=== PATIENT | male | born 1945 | race Caucasian/White ===

== ENCOUNTER 2018-01-11 14:01 | Inpatient (IN) | payer MEDICARE, SELFPAY ==
[2018-01-11] VITALS (7 sets, daily range): BP systolic 152–208; BP diastolic 42–76; PULSE 74–86; RESP 16–24; TEMP 36.6–36.7; O2SAT 86–92; BMI 31.5; BMI 30.5
--- NOTE | 2018-01-11 14:29 | ED.DCSUM_ITS ---
- ER Visit Summary Date of Service: 01/11/18 Chief Complaint: [] Tripped and fell right hip pain unable to walk History of Present Illness: The patient is a 72 M [] acute on his lawnmower he inadvertently tripped and fell has right hip pain unable to walk, his history of chronic hypoxemia with a standard normal pulse ox of 90% he has been seen by Dr. Pederson of pulmonology he has healthy lungs and is on no specific therapy he indicates he simply tripped and fell I note that above as his pulse ox here is 90 and he has no complaints of any type of cardiovascular complaint just right hip pain, history of hypertension that is stable Physical Examination: [] Exam his pulse ox is 90% the rest of his vital signs are within normal range his blood pressures about 200/80 complaining of severe pain in the right hip, head is nontraumatic neck is nontraumatic lungs are managed heart tones are distant abdomen is obese but soft nontender he has marked pain over really the superior pubic ramus the right, some mild pain over the greater trochanter as well he has no thigh knee tib-fib ankle or foot pain he is moving all 4 extremities prefers to keep the knee elevated neurologically awake and alert Test Results: [] Emergency Department Course and Treatment: [] X-rays are obtained a right impacted hip fracture per radiology, hemoglobin 18 rest the labs generally unremarkable spoke with Dr. Franklin extension service advisor for Ortho spoke with the hospitalist he will be admitted for further management explained all the above to the patient Treatment Plan: [] Disposition: [] Admit stable Impression: [] Impacted fracture right hip, fall history of chronic hypoxemia This note was generated with [employer] dictation software. It may contain incorrect words, spelling, and punctuation that were not noted in review of the chart prior to signing ED Disposition - Plan for ED Patient: Chief Complaint: Lower Extremity Injury Referrals: Brandon Cantor MD [Primary Care Provider] -
[2018-01-11 14:52] LABS: Anion Gap 10 (5-15); BUN 16 mg/dL (7-18); BUN/Creat Ratio 14.8 RATIO (10-20); Calcium,Total 9.1 mg/dL (8.5-10.1); Chloride 109 mmol/L (98-107); Creatinine, Serum 1.08 mg/dL (0.70-1.30); EST Glomerular Filtration Rate 71 mL/min (>60); Est Glom Filt Rate - Afr Amer 86 mL/min (>60); Estimated Creatinine Clearance 63.84 ml/min; Glucose 103 mg/dL (74-106); Sodium Level 145 mmol/L (136-145)
[2018-01-11 14:55] LABS: Absolute Neutrophil Count 4.8 X10^3/uL (2.0-7.7); Basophil# 0.01 X10^3/uL; Basophil% 0.2 % (0-1); Eosinophil# 0.05 X10^3/uL; Eosinophils% 0.8 % (0-5); Mean Corp Hgb Conc 34.6 g/gl (32-36); Mean Corpuscular Hgb 31.8 pg (27.0-32.0); Mean Corpuscular Volume 91.9 fL (80-94); Mean Platelet Vol. 10.8 fl (6.2-12.0); Monocyte# 0.45 X10^3/uL; Monocyte% 7.3 % (0-10); Neutrophil # 4.84 X10^3/uL (2.7-7.7); Neutrophil % 78.5 % (47-70); Platelet Count 127 K/mm3 (150-450); RBC Distribution Width CV 13.8 % (11.6-14.6); Red Blood Count 5.66 M/mm3 (4.6-6.2); White Blood Count 6.2 K/mm3 (4.4-11.0)
[2018-01-11] MEDS: morphine 8 MG/ML Syringe IV (14:56)
[2018-01-11] MEDS: Ondansetron 4 MG/2 ML Vial IV (14:56)
--- NOTE | 2018-01-11 14:57 | RAD_ITS ---
STUDY: X-RAY - PELVIS AND RIGHT HIP REASON FOR EXAM: Male, 72 years old. Right hip pain after fall. Check for acute fracture. TECHNIQUE: Radiological exam, hip, unilateral, with pelvis when performed; 2 or 3 views. COMPARISON: None available. FINDINGS: Cortical step-off is noted of the right inferior medial femoral neck and foreshortening is seen between the femoral head and intratrochanteric region consistent with an acute fracture. Right femoral head does not appear dislocated from the adjacent acetabulum. No radiopaque foreign identified. Bony ring of the pelvis appears intact without diastases seen. Fairly severe inferior medial joint space narrowing is seen of the left hip on the AP pelvis view. Bony joint spaces appear intact. Right superior pubic ramus medially shows overlapping anastomotic suture ring. It is difficult to identify soft tissue swelling or soft tissue abnormal calcification. No subcutaneous emphysema noted. Severe degenerative right greater and left lower lumbar sacral spine noted. No osseous lytic/blastic lesion seen. Nonobstructed nonspecific visualized intestinal gas pattern. RAD/HIP, UNI W/ Pelvis 2-3 Views IMPRESSION: Right proximal femoral subcapital acute fracture as described. Fairly severe degenerative left hip as described. Electronically Signed: William Jacques, at 16:19 EDT Tel , Service support ,
[2018-01-11 14:58] LABS: POSITIVE COUNT NO; POSITIVE DIFFERENTIAL NO; POSITIVE MORPHOLOGY NO
--- NOTE | 2018-01-11 17:59 | PCM.HP.STD ---
Problem List (1) Closed right hip fracture Status: Acute Qualifiers: Encounter type: initial encounter Qualified Code(s): S72.001A - Fracture of unspecified part of neck of right femur, initial encounter for closed fracture History of Present Illness Date of Admission: 01/11/18 Chief Complaint: fall and right hip pain. The patient is a 72 year old M today the patient is doing some chores and was in his garage where he thinks he tripped over a the bed of his lawnmower and fell on his right side. Patient landed on his right buttocks and also on his right elbow. Patient had pain. Presented to the emergency room and was found to have an impacted fracture of the right hip. The emergency room contacted Dr. Franklin orthoped[facility] and stated that someone from their service will see the patient. Patient being admitted through the medical service for a right hip fracture due to a mechanical fall. [] Past Medical History Medical History: Medical History (Last Updated 01/11/18 @ 18:02 by Jaspreet Gamez DO) Anxiety F41.9 Chronic respiratory failure with hypoxia J96.11 HTN (hypertension) I10 Allergies No Known Allergies Allergy (Verified 01/11/18 14:07) Home Medications: Ambulatory Orders Medication Instructions Recorded Amlodipine Besylate [Norvasc] 10 mg PO DAILY 01/12/17 Aspirin E.C. [Ecotrin] 81 mg PO DAILY@0800 01/12/17 Loperamide [Imodium] 2 mg PO Q6H PRN PRN 01/12/17 Lorazepam [Ativan] 1 mg PO DAILY PRN PRN 01/12/17 Meloxicam [Mobic] 15 mg PO DAILY PRN PRN 01/12/17 Paroxetine [Paxil] 10 mg PO DAILY 01/12/17 Pravastatin [Pravachol] 20 mg PO QHS 01/12/17 Terazosin HCl 10 mg PO QHS 01/12/17 Lives: Spouse/ Significant Other Smoking Status: Former smoker Tobacco Use: Cigarettes Alcohol: None Drugs: None - *Family History Maternal History Items: Heart Disease Review of Systems Constitutional: Denies: Anorexia, Chills, Fever Eyes: Denies: Blurred vision, Double vision HEENT: Denies: Head Aches, Sinus Congestion, Sinus Drainage Cardiovascular: Denies: Chest Pain, Palpitations Respiratory: Denies: Cough, Shortness of breath at rest, Sputum production Gastrointestinal: Denies: Abdominal Pain, Nausea, Vomiting Genitourinary: Denies: Dysuria Musculoskeletal: Denies: Joint Pain, Joint Tenderness Skin: Denies: Rash, Wounds Neurological: Denies: Numbness, Tingling, Focal weakness Psychiatric: Reports: Anxiety. Denies: Depression Hematologic/ Lymphatic: Denies: Easy Bruising, Easy Bleeding, Hx of blood clot VTE Information - Inpt Only VTE Present on Admission: No VTE Mechan Device Prophylaxis: SCD's VTE Pharm Prophylaxis ordered?: No Patient Problems: Active and Suspected Problems Closed right hip fracture (Acute) - Physical Exam General: Alert, Cooperative, No apparent distress HEENT: Atraumatic, Normocephalic Oral: Moist Mucosa, No Gingival or Mucosal Lesions/ Ulcerations Neck: No Nodes, Thyroid Normal Size and Texture Lungs: Clear to auscultation, Normal air movement, No rhonchi, No wheeze Cardiovascular: Regular rate, Regular Rhythm, Normal S1, Normal S2, No murmurs Abdomen: Bowel Sounds Present, Soft, Non Tender, Non-Distended Extremities: No edema, No Calf Tenderness Skin: No rashes, No breakdown Musculoskeletal: No Muscle Wasting Neurological: Neuro grossly intact, Muscle tone normal, Sensory exam intact to light touch and pain Psych/Mental Status: Normal Affect, Appropriate Vital Signs Temp Pulse Resp BP Pulse Ox 36.7 C 83 16 195/68 H 88 01/11/18 14:03 01/11/18 17:02 01/11/18 17:02 01/11/18 17:02 01/11/18 17:02 Oxygen Flow Rate (L/min) 4 Oxygen Delivery Method Nasal Cannula Weight: 101.151 kg Body Mass Index (BMI) 31.5 Laboratory Tests Past 24 Hrs 01/11/18 01/11/18 14:31 14:31 WBC 6.2 RBC 5.66 Hgb 18.0 H* Hct 52.0 MCV 91.9 MCH 31.8 MCHC 34.6 RDW 13.8 RDW Differential 46.0 H Plt Count 127 L MPV 10.8 Immature Gran % (Auto) 0.200 Neut % (Auto) 78.5 H Lymph % (Auto) 13.0 L [place] % (Auto) 7.3 Eos % (Auto) 0.8 Baso % (Auto) 0.2 Absolute Neuts (auto) 4.8 Absolute Lymphs (auto) 0.80 L Total Counted Not Reportable Sodium 145 Potassium 4.0 Chloride 109 H Carbon Dioxide 26.0 Anion Gap 10 BUN 16 Creatinine 1.08 Estim Creat Clear Calc 63.84 Est GFR (MDRD) Af Amer 86 Est GFR (MDRD) Non-Af 71 BUN/Creatinine Ratio 14.8 Glucose 103 Calcium 9.1 Assessment/Plan All Active Problems Closed right hip fracture (Acute) 1. Right hip fracture Due to mechanical fall Patient has a very good performance status and no active issues to prohibit him from undergoing surgery. Patient is medically cleared to proceed with surgery 2. Hypertension Accelerated Continue with amlodipine Clonidine as needed for systolic blood pressure greater than 180 3. Polycythemia Unclear this is acute or chronic as there is no baseline labs to compare to Will monitor IV fluids 4. DVT prophylaxis with SCDs. After surgery, will be at the discretion of orthopedics. Code Visit Inpatient E&M: 78874 Init Hosp L3
--- NOTE | 2018-01-11 18:04 | HP.PCM_ITS ---
Problem List (1) Closed right hip fracture Status: Acute Qualifiers: Encounter type: initial encounter Qualified Code(s): S72.001A - Fracture of unspecified part of neck of right femur, initial encounter for closed fracture History of Present Illness Date of Admission: 01/11/18 Chief Complaint: fall and right hip pain. The patient is a 72 year old M today the patient is doing some chores and was in his garage where he thinks he tripped over a the bed of his lawnmower and fell on his right side. Patient landed on his right buttocks and also on his right elbow. Patient had pain. Presented to the emergency room and was found to have an impacted fracture of the right hip. The emergency room contacted Dr. Franklin [facility] and stated that someone from their service will see the patient. Patient being admitted through the medical service for a right hip fracture due to a mechanical fall. [] Past Medical History Medical History: Medical History (Last Updated 01/11/18 @ 18:02 by Jaspreet Gamez DO) Anxiety F41.9 Chronic respiratory failure with hypoxia J96.11 HTN (hypertension) I10 Allergies No Known Allergies Allergy (Verified 01/11/18 14:07) Home Medications: Ambulatory Orders Medication Instructions Recorded Amlodipine Besylate [Norvasc] 10 mg PO DAILY 01/12/17 Aspirin E.C. [Ecotrin] 81 mg PO DAILY@0800 01/12/17 Loperamide [Imodium] 2 mg PO Q6H PRN PRN 01/12/17 Lorazepam [Ativan] 1 mg PO DAILY PRN PRN 01/12/17 Meloxicam [Mobic] 15 mg PO DAILY PRN PRN 01/12/17 Paroxetine [Paxil] 10 mg PO DAILY 01/12/17 Pravastatin [Pravachol] 20 mg PO QHS 01/12/17 Terazosin HCl 10 mg PO QHS 01/12/17 Lives: Spouse/ Significant Other Smoking Status: Former smoker Tobacco Use: Cigarettes Alcohol: None Drugs: None - *Family History Maternal History Items: Heart Disease Review of Systems Constitutional: Denies: Anorexia, Chills, Fever Eyes: Denies: Blurred vision, Double vision HEENT: Denies: Head Aches, Sinus Congestion, Sinus Drainage Cardiovascular: Denies: Chest Pain, Palpitations Respiratory: Denies: Cough, Shortness of breath at rest, Sputum production Gastrointestinal: Denies: Abdominal Pain, Nausea, Vomiting Genitourinary: Denies: Dysuria Musculoskeletal: Denies: Joint Pain, Joint Tenderness Skin: Denies: Rash, Wounds Neurological: Denies: Numbness, Tingling, Focal weakness Psychiatric: Reports: Anxiety. Denies: Depression Hematologic/ Lymphatic: Denies: Easy Bruising, Easy Bleeding, Hx of blood clot VTE Information - Inpt Only VTE Present on Admission: No VTE Mechan Device Prophylaxis: SCD's VTE Pharm Prophylaxis ordered?: No Patient Problems: Active and Suspected Problems Closed right hip fracture (Acute) - Physical Exam General: Alert, Cooperative, No apparent distress HEENT: Atraumatic, Normocephalic Oral: Moist Mucosa, No Gingival or Mucosal Lesions/ Ulcerations Neck: No Nodes, Thyroid Normal Size and Texture Lungs: Clear to auscultation, Normal air movement, No rhonchi, No wheeze Cardiovascular: Regular rate, Regular Rhythm, Normal S1, Normal S2, No murmurs Abdomen: Bowel Sounds Present, Soft, Non Tender, Non-Distended Extremities: No edema, No Calf Tenderness Skin: No rashes, No breakdown Musculoskeletal: No Muscle Wasting Neurological: Neuro grossly intact, Muscle tone normal, Sensory exam intact to light touch and pain Psych/Mental Status: Normal Affect, Appropriate Vital Signs Temp Pulse Resp BP Pulse Ox 36.7 C 83 16 195/68 H 88 01/11/18 14:03 01/11/18 17:02 01/11/18 17:02 01/11/18 17:02 01/11/18 17:02 Oxygen Flow Rate (L/min) 4 Oxygen Delivery Method Nasal Cannula Weight: 101.151 kg Body Mass Index (BMI) 31.5 Laboratory Tests Past 24 Hrs 01/11/18 01/11/18 14:31 14:31 WBC 6.2 RBC 5.66 Hgb 18.0 H* Hct 52.0 MCV 91.9 MCH 31.8 MCHC 34.6 RDW 13.8 RDW Differential 46.0 H Plt Count 127 L MPV 10.8 Immature Gran % (Auto) 0.200 Neut % (Auto) 78.5 H Lymph % (Auto) 13.0 L [place] % (Auto) 7.3 Eos % (Auto) 0.8 Baso % (Auto) 0.2 Absolute Neuts (auto) 4.8 Absolute Lymphs (auto) 0.80 L Total Counted Not Reportable Sodium 145 Potassium 4.0 Chloride 109 H Carbon Dioxide 26.0 Anion Gap 10 BUN 16 Creatinine 1.08 Estim Creat Clear Calc 63.84 Est GFR (MDRD) Af Amer 86 Est GFR (MDRD) Non-Af 71 BUN/Creatinine Ratio 14.8 Glucose 103 Calcium 9.1 Assessment/Plan All Active Problems Closed right hip fracture (Acute) 1. Right hip fracture * Due to mechanical fall * Patient has a very good performance status and no active issues to prohibit him from undergoing surgery. * Patient is medically cleared to proceed with surgery 2. Hypertension * Accelerated * Continue with amlodipine * Clonidine as needed for systolic blood pressure greater than 180 3. Polycythemia * Unclear this is acute or chronic as there is no baseline labs to compare to * Will monitor * IV fluids 4. DVT prophylaxis with SCDs. After surgery, will be at the discretion of orthopedics. Code Visit Inpatient E&M: 52958 Init Hosp L3
--- NOTE | 2018-01-11 18:25 | NURSING ---
THROUGHOUT PT'S STAY IN ED PULSE OXIMETRY HAS BEEN BETWEEN 86-92% ON 4L IN ED. 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 NO LABORED BREATHING. HE DOES NOT WEAR OXYGEN AT HOME.
[2018-01-11] MEDS: Morphine 4 MG/ML Syringe IV ×2 (18:33→21:55)
--- NOTE | 2018-01-11 20:42 | NURSING ---
Radiology called and stated that they do not normally do an A&P xray for a hip fx since they have to sit them up. Wanted to know if 1 view would be ok and they would do it portable. Talked to Dr. Franklin and he agreed that would be fine. Called xray back and told them I would enter new order. They stated I did not need to enter new order, they would just amend the current order. They will be coming up shortly to obtain.
--- NOTE | 2018-01-11 20:43 | PCM.CONS.GEN ---
Reason for Consult Date of Consultation: 01/11/18 History of Present Illness: The patient is a 72 year old male with a history of some intermittent pre-existing hip pain. Also a history of pre-existing knee arthritis pain. He states that he was working on a lawnmower today when he tripped over something, falling onto his right hip and right elbow. He had severe right hip pain. He was not able to ambulate. Right elbow pain has not been severe. He denies chest pain or shortness of breath. Denies head injury or loss of consciousness. Patient does have a history of polycythemia, as well as a history of low oxygen saturations reportedly previously with pulmonary workup that was negative at the [facility]. He did quit smoking 20 years ago. Patient currently works full-time at [employer], on his feet 8 hours a day 5 days a week. He would like to go back to work. [] Past Medical History Medical History: Medical History (Last Updated 01/11/18 @ 18:02 by Jaspreet Gamez DO) Anxiety F41.9 Chronic respiratory failure with hypoxia J96.11 HTN (hypertension) I10 Allergies No Known Allergies Allergy (Verified 01/11/18 14:07) Home Medications: Ambulatory Orders Medication Instructions Recorded Amlodipine Besylate [Norvasc] 10 mg PO DAILY 01/12/17 Aspirin E.C. [Ecotrin] 81 mg PO DAILY@0800 01/12/17 Loperamide [Imodium] 2 mg PO Q6H PRN PRN 01/12/17 Lorazepam [Ativan] 1 mg PO DAILY PRN PRN 01/12/17 Meloxicam [Mobic] 15 mg PO DAILY PRN PRN 01/12/17 Paroxetine [Paxil] 10 mg PO DAILY 01/12/17 Pravastatin [Pravachol] 20 mg PO QHS 01/12/17 Terazosin HCl 10 mg PO QHS 01/12/17 Surgical History: - - 2 previous colonoscopies, colon surgery with reversal of colostomy, finger surgery, previous tonsillectomy Lives: Spouse/ Significant Other Smoking Status: Former smoker Tobacco Use: Cigarettes Alcohol: None Drugs: None - *Family History Maternal History Items: Heart Disease Patient Problems: Active and Suspected Problems (Last Updated 01/11/18 @ 18:02 by Jaspreet Gamez DO) Closed right hip fracture (Acute) Objective: Right hip has mild shortening and external rotation. Right hip has pain on palpation. Right hip has pain with rotation and axial loading done gently. Left hip had no pain on palpation. Left hip has no pain with rotation. No calf pain or swelling bilaterally. Negative Homans sign bilaterally. Good active motion toes and ankles. No bruising or swelling about the right hip region. He does have a right elbow abrasion. Good elbow motion and strength. X-rays: AP pelvis AP and lateral right hip shows a right hip displaced femoral neck fracture, valgus impacted no severe pre-existing hip joint arthritis identified. Laboratory work and vital signs reviewed. Medication list reviewed - Physical Exam Vital Signs Temp Pulse Resp BP Pulse Ox 97.8 F 83 20 H 152/76 H 92 01/11/18 19:01 01/11/18 19:01 01/11/18 19:01 01/11/18 19:01 01/11/18 19:01 Oxygen Flow Rate (L/min) 4 Oxygen Delivery Method Nasal Cannula Weight: 97.9 kg Body Mass Index (BMI) 30.5 Assessment/Plan All Active Problems (Last Updated 01/11/18 @ 18:02 by Jaspreet Gamez DO) Closed right hip fracture (Acute) Right hip femoral neck fracture with some displacement: Surgical options discussed: Possibility of closed reduction and pinning, possibility of hemiarthroplasty or total hip replacement discussed. He understands Dr. Marie will be doing his surgery based on availability. He understands Dr. Marie will discuss with him surgical options and plan as well as expected outcome and rehab. He also understands Dr. Marie will be leaving the area in the next few weeks and I can take over his orthopedic care at that point. Risk of surgery including but not limited to from operative or postoperative complications. Risk of anesthetic complications such as heart attacks, strokes, seizures, or . Risk of infections. Risk of damage to nerves arteries tendons. Risk of inadvertent fractures or dislocations. Risk of bone or wound healing complications. Possibility of nonunion malunion pain stiffness weakness. Possible need for further surgery such as hardware removal. Risk of DVT PE and other potential complications could lead to or disability explained. No guarantees were stated or implied. All of their questions were answered. Appropriate informed consent was obtained for surgical intervention. #2 medical problems including hypertension, high cholesterol, polycythemia, history of poor oxygen saturations, obesity -further evaluation and treatment per hospitalist service as needed Patient reportedly cleared for surgery based on hospitalist note. EKG and chest x-ray have been ordered
--- NOTE | 2018-01-11 20:48 | CON.PCM_ITS ---
Reason for Consult Date of Consultation: 01/11/18 History of Present Illness: The patient is a 72 year old male with a history of some intermittent pre- existing hip pain. Also a history of pre-existing knee arthritis pain. He states that he was working on a lawnmower today when he tripped over something, falling onto his right hip and right elbow. He had severe right hip pain. He was not able to ambulate. Right elbow pain has not been severe. He denies chest pain or shortness of breath. Denies head injury or loss of consciousness. Patient does have a history of polycythemia, as well as a history of low oxygen saturations reportedly previously with pulmonary workup that was negative at the [facility]. He did quit smoking 20 years ago. Patient currently works full-time at [employer], on his feet 8 hours a day 5 days a week. He would like to go back to work. [] Past Medical History Medical History: Medical History (Last Updated 01/11/18 @ 18:02 by Jaspreet Gamez DO) Anxiety F41.9 Chronic respiratory failure with hypoxia J96.11 HTN (hypertension) I10 Allergies No Known Allergies Allergy (Verified 01/11/18 14:07) Home Medications: Ambulatory Orders Medication Instructions Recorded Amlodipine Besylate [Norvasc] 10 mg PO DAILY 01/12/17 Aspirin E.C. [Ecotrin] 81 mg PO DAILY@0800 01/12/17 Loperamide [Imodium] 2 mg PO Q6H PRN PRN 01/12/17 Lorazepam [Ativan] 1 mg PO DAILY PRN PRN 01/12/17 Meloxicam [Mobic] 15 mg PO DAILY PRN PRN 01/12/17 Paroxetine [Paxil] 10 mg PO DAILY 01/12/17 Pravastatin [Pravachol] 20 mg PO QHS 01/12/17 Terazosin HCl 10 mg PO QHS 01/12/17 Surgical History: - - 2 previous colonoscopies, colon surgery with reversal of colostomy, finger surgery, previous tonsillectomy Lives: Spouse/ Significant Other Smoking Status: Former smoker Tobacco Use: Cigarettes Alcohol: None Drugs: None - *Family History Maternal History Items: Heart Disease Patient Problems: Active and Suspected Problems (Last Updated 01/11/18 @ 18:02 by Jaspreet Gamez DO ) Closed right hip fracture (Acute) Objective: Right hip has mild shortening and external rotation. Right hip has pain on palpation. Right hip has pain with rotation and axial loading done gently. Left hip had no pain on palpation. Left hip has no pain with rotation. No calf pain or swelling bilaterally. Negative Homans sign bilaterally. Good active motion toes and ankles. No bruising or swelling about the right hip region. He does have a right elbow abrasion. Good elbow motion and strength. X-rays: AP pelvis AP and lateral right hip shows a right hip displaced femoral neck fracture, valgus impacted no severe pre-existing hip joint arthritis identified. Laboratory work and vital signs reviewed. Medication list reviewed - Physical Exam Vital Signs Temp Pulse Resp BP Pulse Ox 97.8 F 83 20 H 152/76 H 92 01/11/18 19:01 01/11/18 19:01 01/11/18 19:01 01/11/18 19:01 01/11/18 19:01 Oxygen Flow Rate (L/min) 4 Oxygen Delivery Method Nasal Cannula Weight: 97.9 kg Body Mass Index (BMI) 30.5 Assessment/Plan All Active Problems (Last Updated 01/11/18 @ 18:02 by Jaspreet Gamez DO) Closed right hip fracture (Acute) Right hip femoral neck fracture with some displacement: Surgical options discussed: Possibility of closed reduction and pinning, possibility of hemiarthroplasty or total hip replacement discussed. He understands Dr. Marie will be doing his surgery based on availability. He understands Dr. Marie will discuss with him surgical options and plan as well as expected outcome and rehab. He also understands Dr. Marie will be leaving the area in the next few weeks and I can take over his orthopedic care at that point. Risk of surgery including but not limited to from operative or postoperative complications. Risk of anesthetic complications such as heart attacks, strokes, seizures, or . Risk of infections. Risk of damage to nerves arteries tendons. Risk of inadvertent fractures or dislocations. Risk of bone or wound healing complications. Possibility of nonunion malunion pain stiffness weakness. Possible need for further surgery such as hardware removal. Risk of DVT PE and other potential complications could lead to or disability explained. No guarantees were stated or implied. All of their questions were answered. Appropriate informed consent was obtained for surgical intervention. #2 medical problems including hypertension, high cholesterol, polycythemia, history of poor oxygen saturations, obesity -further evaluation and treatment per hospitalist service as needed Patient reportedly cleared for surgery based on hospitalist note. EKG and chest x-ray have been ordered
--- NOTE | 2018-01-11 21:00 | RAD_ITS ---
STUDY: X-RAY CHEST REASON FOR EXAM: Male, 72 years old. Hip fracture TECHNIQUE: Single frontal view COMPARISON: None. FINDINGS: The lungs are expanded. Bilateral pulmonary interstitial prominence. No focal consolidation. Normal size heart. Normal mediastinum and zach. Normal visualized pulmonary arteries. Normal visualized aortic arch and descending thoracic aorta. Mild degenerative changes of the thoracic spine. Normal visualized ribs, clavicles, and shoulders. There is no demonstrated abnormality of the visualized soft tissue structures of the upper abdomen. RAD/Chest 1 View (Portable) IMPRESSION: Diffuse pulmonary interstitial prominence. Electronically Signed: Javier Granger DO at 22:00 EDT Tel [phone], Service support ,
[2018-01-11] MEDS: 0.9% Normal Saline 1,000 ML 150 ML IV (21:56)
[2018-01-11] MEDS: Pravastatin 20 MG Tablet PO (21:56)
[2018-01-11] MEDS: Doxazosin 4 MG Tablet 8 MG PO (21:57)
[2018-01-12] VITALS (31 sets, daily range): BP systolic 109–175; BP diastolic 51–79; PULSE 79–101; RESP 14–27; TEMP 36.4–37.7; O2SAT 86–97; BMI 30.5
--- NOTE | 2018-01-12 04:06 | NURSING ---
Called [facility]PS as reminder to obtain EKG ordered last evening.
[2018-01-12 05:45] LABS: Absolute Lymphocyte Count 0.76 X10^3/ul (0.83-4.51); Absolute Neutrophil Count 8.1 X10^3/uL (2.0-7.7); Basophil# 0.02 X10^3/uL; Basophil% 0.2 % (0-1); Eosinophil# 0.23 X10^3/uL; Eosinophils% 2.3 % (0-5); Hematocrit 51.2 % (40-54); Hemoglobin 17.4 g/dl (13.0-16.5); Lymphocyte # 0.76 X10^3/ul (4.0); Lymphocyte % 7.7 % (19-41); Mean Corpuscular Hgb 31.4 pg (27.0-32.0); Mean Corpuscular Volume 92.4 fL (80-94); Mean Platelet Vol. 10.6 fl (6.2-12.0); Monocyte# 0.81 X10^3/uL; Monocyte% 8.2 % (0-10); Neutrophil # 8.08 X10^3/uL (2.7-7.7); Neutrophil % 81.4 % (47-70); Platelet Count 108 K/mm3 (150-450); RBC Distribution Width SD 47.2 fl (35.1-43.9); Red Blood Count 5.54 M/mm3 (4.6-6.2); White Blood Count 9.9 K/mm3 (4.4-11.0)
[2018-01-12 05:53] LABS: POSITIVE COUNT NO; POSITIVE DIFFERENTIAL NO; POSITIVE MORPHOLOGY NO
[2018-01-12 06:19] LABS: Anion Gap 9 (5-15); BUN 14 mg/dL (7-18); BUN/Creat Ratio 17.5 RATIO (10-20); Calcium,Total 8.2 mg/dL (8.5-10.1); Chloride 108 mmol/L (98-107); EST Glomerular Filtration Rate 101 mL/min (>60); Est Glom Filt Rate - Afr Amer 122 mL/min (>60); Estimated Creatinine Clearance 86.18 ml/min; Glucose 101 mg/dL (74-106); Sodium Level 143 mmol/L (136-145)
--- NOTE | 2018-01-12 08:17 | NURSING ---
Dr. Barragan in room with pt at this time d/t consult for hypoxia.
--- NOTE | 2018-01-12 08:45 | NURSING ---
Report given to Zahraa in AC at this time.
[2018-01-12 08:53] LABS: Vitamin D,25 Hydroxy 19.4 ng/mL (29.95-100.01)
[2018-01-12] MEDS: Cefazolin 2 GM in 0.9% Normal Saline 100 ML IV (09:40)
--- NOTE | 2018-01-12 09:56 | PCM.CONS.GEN ---
Problem List (1) Acute respiratory failure with hypoxia Status: Acute (2) Closed right hip fracture Status: Acute Qualifiers: Encounter type: initial encounter Qualified Code(s): S72.001A - Fracture of unspecified part of neck of right femur, initial encounter for closed fracture (3) BPH (benign prostatic hyperplasia) Status: Chronic Qualifiers: Lower urinary tract symptom presence: symptoms present Lower urinary tract symptom detail: urinary frequency Qualified Code(s): N40.1 - Benign prostatic hyperplasia with lower urinary tract symptoms; R35.0 - Frequency of micturition (4) Depression Status: Chronic Qualifiers: Depression Type: major depressive disorder Major depression recurrence: recurrent Active/Remission status: in full remission Qualified Code(s): F33.42 - Major depressive disorder, recurrent, in full remission (5) Hypercholesterolemia Status: Chronic Reason for Consult Date of Consultation: 01/12/18 Reason for Consultation: Acute hypoxic respiratory failure History of Present Illness: The patient is a 72 year old M, with past medical history listed below, who presented to [facility] on 01/11/2018 with acute hip pain following a fall. Patient reports that he was of his usual health and was walking through his garage. Patient fell after tripping over something on the floor. Patient had such excruciating pain that he was unable to stand. On presentation to the emergency room, patient was noted to be 90% on room air with an elevated blood pressure of 200/80 and complaining of severe right hip pain. Laboratory workup did show an elevated hemoglobin of 18 and a right x-ray showed a impacted right hip fracture. Patient was admitted to the floor for evaluation. While on MedSurg, patient was noted to require 2 L initially at approximately 2 PM yesterday. However, overnight patient's hypoxemia had progressed to the point where he required 6 L nasal cannula to maintain acceptable saturation above 90%. A pulmonary consult was obtained for further evaluation. Patient does report a long smoking history in the past. Patient has been seen by Dr. Anderson at the [facility] and reportedly received a full workup as recently as December. Patient states that he was told that his pulmonary function tests were normal except for his obesity. Patient has never required supplemental oxygen previously. Patient denies any history of DVT or PE. Patient does not believe a loss of consciousness led to his mechanical fall. 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 Patient does not report any worsening in respiratory status prior to the fall. Patient does state that he can become dyspneic with walking up hills at baseline. Patient does state that he has been questioned about his elevated hemoglobin levels previously, but no interventions have been required. Patient is unaware of any cardiac dysfunction. Did speak with Dr. Connell prior to transfer for repair of hip fracture. Plan was to possibly do a spinal with conscious sedation. If intubation were required, patient was to come to the intensive care unit postoperatively intubated. Past Medical History Past Medical History (Chronic Problems): Chronic Problems (Last Updated 01/11/18 @ 18:02 by Jaspreet Gamez DO) BPH (benign prostatic hyperplasia) (Chronic) Depression (Chronic) Hypercholesterolemia (Chronic) Medical History: Medical History (Last Updated 01/11/18 @ 18:02 by Jaspreet Gamez DO) Anxiety F41.9 Chronic respiratory failure with hypoxia J96.11 HTN (hypertension) I10 Allergies No Known Allergies Allergy (Verified 01/11/18 14:07) Home Medications: Ambulatory Orders Medication Instructions Recorded Amlodipine Besylate [Norvasc] 10 mg PO DAILY 01/12/17 Aspirin E.C. [Ecotrin] 81 mg PO DAILY@0800 01/12/17 Loperamide [Imodium] 2 mg PO Q6H PRN PRN 01/12/17 Lorazepam [Ativan] 1 mg PO DAILY PRN PRN 01/12/17 Meloxicam [Mobic] 15 mg PO DAILY PRN PRN 01/12/17 Paroxetine [Paxil] 10 mg PO DAILY 01/12/17 Pravastatin [Pravachol] 20 mg PO QHS 01/12/17 Terazosin HCl 10 mg PO QHS 01/12/17 Surgical History: - - 2 previous colonoscopies, colon surgery with reversal of colostomy, finger surgery, previous tonsillectomy Lives: Spouse/ Significant Other Smoking Status: Former smoker Tobacco Use: Cigarettes Alcohol: None Drugs: None - *Family History Maternal History Items: Heart Disease Review of Systems Comment: See HPI, otherwise negative ?10 systems. Patient Problems: Active and Suspected Problems (Last Updated 01/11/18 @ 18:02 by Jaspreet Gamez DO) Closed right hip fracture (Acute) Acute respiratory failure with hypoxia (Acute) Objective: Hip x-ray was reviewed showing fracture. Chest x-ray shows increased interstitial infiltrates bilaterally. - Physical Exam General: Alert, Oriented x3, Cooperative, No apparent distress, - - Obese. Speaking in full sentences. HEENT: Atraumatic, PERRLA, EOMI, Normocephalic, - - Slight injection without icterus. Oral: Moist Mucosa, No Gingival or Mucosal Lesions/ Ulcerations, - - Edentulous. Neck: Supple, No Nodes, Trachea Midline, JVD, Right Lungs: No rhonchi, No wheeze, No rales, Diminished, - - Symmetric expansion. No dullness to percussion. Cardiovascular: Regular rate, Regular Rhythm, Normal S1, Normal S2, No murmurs, No rub noted, No Gallop Abdomen: Bowel Sounds Present, Soft, Non Tender, Non-Distended, Obese Extremities: No cyanosis, No edema, Capillary Refill Less than 3 Seconds, Clubbing, - - External rotation noted of the right leg. Skin: No rashes, No breakdown Musculoskeletal: No Tenderness to Palpation of Joints or Extremities Lymphatic: No Cervical, Supraclavicular, or Inguinal Adenopathy Neurological: Cranial nerves II-XII grossly intact, Neuro grossly intact, - - Did not check motor strength of right lower extremity. Sensation is intact. No facial droop appreciated. Psych/Mental Status: Alert and oriented to time, place, person, mood and affect Vital Signs Temp Pulse Resp BP Pulse Ox 37.7 C H 93 20 H 160/68 H 90 01/12/18 09:01 01/12/18 09:01 01/12/18 09:01 01/12/18 09:01 01/12/18 09:01 Oxygen Flow Rate (L/min) 6 Oxygen Delivery Method Nasal Cannula Weight: 97.9 kg Body Mass Index (BMI) 30.5 Intake and Output for Last 24 Hours 01/10/18 01/11/18 01/12/18 23:59 23:59 23:59 Intake Total 1200 / 1200 Output Total 1100 / 1100 Balance 100 / 100 Laboratory Tests Past 24 Hrs 01/12/18 01/12/18 01/12/18 05:08 05:08 05:08 WBC 9.9 RBC 5.54 Hgb 17.4 H Hct 51.2 MCV 92.4 MCH 31.4 MCHC 34.0 RDW 14.0 RDW Differential 47.2 H Plt Count 108 L MPV 10.6 Immature Gran % (Auto) 0.200 Neut % (Auto) 81.4 H Lymph % (Auto) 7.7 L [place] % (Auto) 8.2 Eos % (Auto) 2.3 Baso % (Auto) 0.2 Absolute Neuts (auto) 8.1 H Absolute Lymphs (auto) 0.76 L Total Counted Not Reportable Sodium 143 Potassium 4.0 Chloride 108 H Carbon Dioxide 26.0 Anion Gap 9 BUN 14 Creatinine 0.80 Estim Creat Clear Calc 86.18 Est GFR (MDRD) Af Amer 122 Est GFR (MDRD) Non-Af 101 BUN/Creatinine Ratio 17.5 Glucose 101 Calcium 8.2 L Vitamin D 25-Hydroxy 19.4 L Blood Type Antibody Screen 01/12/18 05:08 WBC RBC Hgb Hct MCV MCH MCHC RDW RDW Differential Plt Count MPV Immature Gran % (Auto) Neut % (Auto) Lymph % (Auto) [place] % (Auto) Eos % (Auto) Baso % (Auto) Absolute Neuts (auto) Absolute Lymphs (auto) Total Counted Sodium Potassium Chloride Carbon Dioxide Anion Gap BUN Creatinine Estim Creat Clear Calc Est GFR (MDRD) Af Amer Est GFR (MDRD) Non-Af BUN/Creatinine Ratio Glucose Calcium Vitamin D 25-Hydroxy Blood Type A POSITIVE Antibody Screen NEGATIVE Clinical Impression(s) from Imaging Studies Hip/Pelvis X-Ray 01/11/18 14:57 IMPRESSION: Right proximal femoral subcapital acute fracture as described. Fairly severe degenerative left hip as described. Electronically Signed: William Jacques at 16:19 EDT Tel , Service support , Chest X-Ray 01/11/18 21:00 IMPRESSION: Diffuse pulmonary interstitial prominence. Electronically Signed: Javier Granger DO at 22:00 EDT Tel [phone], Service support , Assessment/Plan All Active Problems (Last Updated 01/11/18 @ 18:02 by Jaspreet Gamez DO) Closed right hip fracture (Acute) Acute respiratory failure with hypoxia (Acute) RECOMMENDATIONS: 1. Surgical intervention with conscious sedation and spinal possible 2. Observation in intensive care unit following intervention 3. Obtain CTA of chest once stabilized postoperatively 4. PT/OT evaluations 5. Obtain old records from [facility] IMPRESSIONS: 1. Acute hypoxic respiratory failure Unclear etiology at this time. Patient did present with significant hypertension and may have an element of flash pulmonary edema from diastolic congestive heart failure. Patient does have a smoking history in the past, but reportedly has normal pulmonary function testing. 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 Will obtain old records from [facility] for confirmation. Patient has had a hip fracture and fat embolus would be a possibility. CT with contrast can be ordered once patient is stabilized postoperatively. Patient will come to the intensive care unit postoperatively. CODE STATUS was verified as full code. Anesthesia to attempt spinal with conscious sedation. If intubated, will work on extubation in the intensive care unit 2. Acute right hip fracture status post mechanical fall Patient is to go for operative correction later this morning. Will attempt spinal anesthesia to limit respiratory difficulties. PT/OT will be consulted. 3. Obesity/BPH/hypertension/advanced age Complicates care, management, recovery and prognosis. Addendum 1343: Patient was able to have surgery under spinal and conscious sedation. Patient presented to the intensive care unit requiring nonrebreather to maintain saturations. Over the course of ICU stay, patient saturations have slightly improved. A CT of the chest with contrast was obtained showing some basilar atelectasis, pronounced airways with borderline bronchiectasis and emphysematous changes. I could not appreciate any embolism. Will obtain an echocardiogram. Patient is not reporting any dyspnea at this time, so shunt physiology is suspected. Patient will be monitored in the intensive care unit overnight. Code Visit Inpatient E&M: 28318 Init Hosp L3
--- NOTE | 2018-01-12 10:03 | CON.PCM_ITS ---
Problem List (1) Acute respiratory failure with hypoxia Status: Acute (2) Closed right hip fracture Status: Acute Qualifiers: Encounter type: initial encounter Qualified Code(s): S72.001A - Fracture of unspecified part of neck of right femur, initial encounter for closed fracture (3) BPH (benign prostatic hyperplasia) Status: Chronic Qualifiers: Lower urinary tract symptom presence: symptoms present Lower urinary tract symptom detail: urinary frequency Qualified Code(s): N40.1 - Benign prostatic hyperplasia with lower urinary tract symptoms; R35.0 - Frequency of micturition (4) Depression Status: Chronic Qualifiers: Depression Type: major depressive disorder Major depression recurrence: recurrent Active/Remission status: in full remission Qualified Code(s): F33.42 - Major depressive disorder, recurrent, in full remission (5) Hypercholesterolemia Status: Chronic Reason for Consult Date of Consultation: 01/12/18 Reason for Consultation: Acute hypoxic respiratory failure History of Present Illness: The patient is a 72 year old M, with past medical history listed below, who presented to [facility] on 01/11/2018 with acute hip pain following a fall. Patient reports that he was of his usual health and was walking through his garage. Patient fell after tripping over something on the floor. Patient had such excruciating pain that he was unable to stand. On presentation to the emergency room, patient was noted to be 90% on room air with an elevated blood pressure of 200/80 and complaining of severe right hip pain. Laboratory workup did show an elevated hemoglobin of 18 and a right x- ray showed a impacted right hip fracture. Patient was admitted to the floor for evaluation. While on MedSurg, patient was noted to require 2 L initially at approximately 2 PM yesterday. However, overnight patient's hypoxemia had progressed to the point where he required 6 L nasal cannula to maintain acceptable saturation above 90%. A pulmonary consult was obtained for further evaluation. Patient does report a long smoking history in the past. Patient has been seen by Dr. Anderson at the [facility] and reportedly received a full workup as recently as December. Patient states that he was told that his pulmonary function tests were normal except for his obesity. Patient has never required supplemental oxygen previously. Patient denies any history of DVT or PE. Patient does not believe a loss of consciousness led to his mechanical fall. 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 Patient does not report any worsening in respiratory status prior to the fall. Patient does state that he can become dyspneic with walking up hills at baseline. Patient does state that he has been questioned about his elevated hemoglobin levels previously, but no interventions have been required. Patient is unaware of any cardiac dysfunction. Did speak with Dr. Connell prior to transfer for repair of hip fracture. Plan was to possibly do a spinal with conscious sedation. If intubation were required, patient was to come to the intensive care unit postoperatively intubated. Past Medical History Past Medical History (Chronic Problems): Chronic Problems (Last Updated 01/11/18 @ 18:02 by Jaspreet Gamez DO) BPH (benign prostatic hyperplasia) (Chronic) Depression (Chronic) Hypercholesterolemia (Chronic) Medical History: Medical History (Last Updated 01/11/18 @ 18:02 by Jaspreet Gamez DO) Anxiety F41.9 Chronic respiratory failure with hypoxia J96.11 HTN (hypertension) I10 Allergies No Known Allergies Allergy (Verified 01/11/18 14:07) Home Medications: Ambulatory Orders Medication Instructions Recorded Amlodipine Besylate [Norvasc] 10 mg PO DAILY 01/12/17 Aspirin E.C. [Ecotrin] 81 mg PO DAILY@0800 01/12/17 Loperamide [Imodium] 2 mg PO Q6H PRN PRN 01/12/17 Lorazepam [Ativan] 1 mg PO DAILY PRN PRN 01/12/17 Meloxicam [Mobic] 15 mg PO DAILY PRN PRN 01/12/17 Paroxetine [Paxil] 10 mg PO DAILY 01/12/17 Pravastatin [Pravachol] 20 mg PO QHS 01/12/17 Terazosin HCl 10 mg PO QHS 01/12/17 Surgical History: - - 2 previous colonoscopies, colon surgery with reversal of colostomy, finger surgery, previous tonsillectomy Lives: Spouse/ Significant Other Smoking Status: Former smoker Tobacco Use: Cigarettes Alcohol: None Drugs: None - *Family History Maternal History Items: Heart Disease Review of Systems Comment: See HPI, otherwise negative ?10 systems. Patient Problems: Active and Suspected Problems (Last Updated 01/11/18 @ 18:02 by Jaspreet Gamez DO ) Closed right hip fracture (Acute) Acute respiratory failure with hypoxia (Acute) Objective: Hip x-ray was reviewed showing fracture. Chest x-ray shows increased interstitial infiltrates bilaterally. - Physical Exam General: Alert, Oriented x3, Cooperative, No apparent distress, - - Obese. Speaking in full sentences. HEENT: Atraumatic, PERRLA, EOMI, Normocephalic, - - Slight injection without icterus. Oral: Moist Mucosa, No Gingival or Mucosal Lesions/ Ulcerations, - - Edentulous. Neck: Supple, No Nodes, Trachea Midline, JVD, Right Lungs: No rhonchi, No wheeze, No rales, Diminished, - - Symmetric expansion. No dullness to percussion. Cardiovascular: Regular rate, Regular Rhythm, Normal S1, Normal S2, No murmurs, No rub noted, No Gallop Abdomen: Bowel Sounds Present, Soft, Non Tender, Non-Distended, Obese Extremities: No cyanosis, No edema, Capillary Refill Less than 3 Seconds, Clubbing, - - External rotation noted of the right leg. Skin: No rashes, No breakdown Musculoskeletal: No Tenderness to Palpation of Joints or Extremities Lymphatic: No Cervical, Supraclavicular, or Inguinal Adenopathy Neurological: Cranial nerves II-XII grossly intact, Neuro grossly intact, - - Did not check motor strength of right lower extremity. Sensation is intact. No facial droop appreciated. Psych/Mental Status: Alert and oriented to time, place, person, mood and affect Vital Signs Temp Pulse Resp BP Pulse Ox 37.7 C H 93 20 H 160/68 H 90 01/12/18 09:01 01/12/18 09:01 01/12/18 09:01 01/12/18 09:01 01/12/18 09:01 Oxygen Flow Rate (L/min) 6 Oxygen Delivery Method Nasal Cannula Weight: 97.9 kg Body Mass Index (BMI) 30.5 Intake and Output for Last 24 Hours 01/10/18 01/11/18 01/12/18 23:59 23:59 23:59 Intake Total 1200 / 1200 Output Total 1100 / 1100 Balance 100 / 100 Laboratory Tests Past 24 Hrs 01/12/18 01/12/18 01/12/18 05:08 05:08 05:08 WBC 9.9 RBC 5.54 Hgb 17.4 H Hct 51.2 MCV 92.4 MCH 31.4 MCHC 34.0 RDW 14.0 RDW Differential 47.2 H Plt Count 108 L MPV 10.6 Immature Gran % (Auto) 0.200 Neut % (Auto) 81.4 H Lymph % (Auto) 7.7 L [place] % (Auto) 8.2 Eos % (Auto) 2.3 Baso % (Auto) 0.2 Absolute Neuts (auto) 8.1 H Absolute Lymphs (auto) 0.76 L Total Counted Not Reportable Sodium 143 Potassium 4.0 Chloride 108 H Carbon Dioxide 26.0 Anion Gap 9 BUN 14 Creatinine 0.80 Estim Creat Clear Calc 86.18 Est GFR (MDRD) Af Amer 122 Est GFR (MDRD) Non-Af 101 BUN/Creatinine Ratio 17.5 Glucose 101 Calcium 8.2 L Vitamin D 25-Hydroxy 19.4 L Blood Type Antibody Screen 01/12/18 05:08 WBC RBC Hgb Hct MCV MCH MCHC RDW RDW Differential Plt Count MPV Immature Gran % (Auto) Neut % (Auto) Lymph % (Auto) [place] % (Auto) Eos % (Auto) Baso % (Auto) Absolute Neuts (auto) Absolute Lymphs (auto) Total Counted Sodium Potassium Chloride Carbon Dioxide Anion Gap BUN Creatinine Estim Creat Clear Calc Est GFR (MDRD) Af Amer Est GFR (MDRD) Non-Af BUN/Creatinine Ratio Glucose Calcium Vitamin D 25-Hydroxy Blood Type A POSITIVE Antibody Screen NEGATIVE Clinical Impression(s) from Imaging Studies Hip/Pelvis X-Ray 01/11/18 14:57 IMPRESSION: Right proximal femoral subcapital acute fracture as described. Fairly severe degenerative left hip as described. Electronically Signed: William Jacques at 16:19 EDT Tel , Service support , Chest X-Ray 01/11/18 21:00 IMPRESSION: Diffuse pulmonary interstitial prominence. Electronically Signed: Javier Granger DO at 22:00 EDT Tel [phone], Service support , Assessment/Plan All Active Problems (Last Updated 01/11/18 @ 18:02 by Jaspreet Gamez DO) Closed right hip fracture (Acute) Acute respiratory failure with hypoxia (Acute) RECOMMENDATIONS: 1. Surgical intervention with conscious sedation and spinal possible 2. Observation in intensive care unit following intervention 3. Obtain CTA of chest once stabilized postoperatively 4. PT/OT evaluations 5. Obtain old records from [facility] IMPRESSIONS: 1. Acute hypoxic respiratory failure Unclear etiology at this time. Patient did present with significant hypertension and may have an element of flash pulmonary edema from diastolic congestive heart failure. Patient does have a smoking history in the past, but reportedly has normal pulmonary function testing. 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 Will obtain old records from [facility] for confirmation. Patient has had a hip fracture and fat embolus would be a possibility. CT with contrast can be ordered once patient is stabilized postoperatively. Patient will come to the intensive care unit postoperatively. CODE STATUS was verified as full code. Anesthesia to attempt spinal with conscious sedation. If intubated, will work on extubation in the intensive care unit 2. Acute right hip fracture status post mechanical fall Patient is to go for operative correction later this morning. Will attempt spinal anesthesia to limit respiratory difficulties. PT/OT will be consulted. 3. Obesity/BPH/hypertension/advanced age Complicates care, management, recovery and prognosis. Addendum 1343: Patient was able to have surgery under spinal and conscious sedation. Patient presented to the intensive care unit requiring nonrebreather to maintain saturations. Over the course of ICU stay, patient saturations have slightly improved. A CT of the chest with contrast was obtained showing some basilar atelectasis, pronounced airways with borderline bronchiectasis and emphysematous changes. I could not appreciate any embolism. Will obtain an echocardiogram. Patient is not reporting any dyspnea at this time, so shunt physiology is suspected. Patient will be monitored in the intensive care unit overnight. Code Visit Inpatient E&M: 72293 Init Hosp L3
--- NOTE | 2018-01-12 10:25 | PCM.OPRPT ---
Report of Operation Date of Procedure: 01/12/18 Pre-Operative Diagnosis: Impacted right femoral neck fracture Post-Operative Diagnosis: Same Surgery/Procedure Performed:: Total hip arthroplasty right Description of Surgical Findings:: Transcervical femoral neck fracture spud grader: Fab Fournier Type of Anesthesia:: Spinal Anesthesiologist: Jaspreet Velasquez Special Medications: txa Specimen's removed: Bone and soft tissue Estimated Blood Loss (mL): 100 Fluids Replaced: See anesthesia report Description of Procedure: Implants: Linda Accolade 2 size 6 127? valgus with 56 mm cup neutral neck and appropriate MDM components Surgical indications: Patient has suffered a femoral neck fracture. Patient is quite active and underwent consultation with Dr. Franklin. I am taking over the care of this patient and discussed the procedure with the patient at length. Because of his activity as well as some generalized right-sided hip pain prior to the injury we will proceed with a total hip arthroplasty. Consent form was signed Procedure description: The patient was greeted in the preoperative area the right hip was marked with surgical marker preoperative antibiotics administered. The patient was then taken to or suite in stable condition. Preoperative tranexamic acid was also utilized. Once the patient was placed in the supine position on the operating room table and once adequate anesthesia was obtained they were then placed in the lateral decubitus position with the surgical hip facing the field. All bony prominences were well-padded. A commercial hip position was utilized. The appropriate extremity was then prepped and draped in usual sterile fashion. Ioban was placed on the skin. Surgical timeout was performed and surgery was commenced. Standard anterolateral approach to the hip was then performed incision was planned and carried out with a #10 blade. Dissection was then carried length of the incision to the IT band which was split proximally and distally. A Charnley retractor was then placed for soft tissue retraction exposing the gluteus medius. The hip was then approached through a transgluteal approach and dislocated through an anterior capsulectomy. Severe eburnation of bone was noted periarticular osteophytes were identified consistent with severe end-stage osteoarthritis. A femoral osteotomy was then created approximately 1 fingerbreadth above the lesser trochanter. This was measured and placed on the back table. Once this was complete acetabular retractors were placed anteriorly and posteriorly and a 4 mm Steinmann pin was placed anterior superior aspect of the acetabulum for soft tissue retention. Labrum was then removed from the acetabulum exposing the entire cup of the acetabulum. Sequential reaming was then commenced and the acetabulum was medialized and sequentially widened in order to accommodate appropriate size cup. The acetabular cup was then impacted into position to the appropriate depth referencing approximately 30? inversion 45? of inclination. Excellent purchase was obtained. No screws were placed in the cup. MDM liner was then placed in the locking mechanism of the acetabulum, locking mechanism was engaged and confirmed to be locked. Attention was then turned to the femoral preparation. The hip was placed in the 90/90 position and a lateralizing box osteotome was utilized. Femoral starting awl was used followed by sequential broaching to the appropriate size. Excellent purchase was obtained with the stem no stem subsidence and excellent rotational stability was confirmed. A calcar reamer was then used in the trial head neck was placed on the broach. The hip was then located and taken through full range of motion flexion internal and external rotation as well as extension. Excellent stability was noted no impingement was identified of the components and leg lengths appear to be appropriate. The hip was at this point dislocated and the trial femoral components were removed. The final femoral stem was then implanted and impacted to the appropriate depth. Again excellent purchase was obtained no stem subsidence or rotational instability was noted. The hip was once again trialed and confirmation of leg length and stability was performed. Soft tissue tension also appeared to be appropriate. At this point the hip was redislocated and the trunnion was cleaned and dried meticulously in the appropriate size femoral head was placed on the clean dry trunnion using a 12/14 Morris taper. The hip was once again relocated and again taken through full range of motion. I did inject a cocktail of postoperative pain medication in the deep and superficial tissues. A quick Betadine bath was performed followed by copious irrigation. Anatomic closure of the gluteus medius and minimus was performed with #1 Vicryl [id number] type fashion followed by closure of the IT band with #1 Vicryl 0 Vicryl was utilized in subcutaneous tissue and surgical mitzi were placed in the skin. A well-padded nonadherent dressing was applied. Patient was taken to PACU in stable condition. No complications were identified. Will follow standard postop protocol for total hip arthroplasty. Patient must use assistive device for ambulation for approximately 6 weeks of the gluteal musculature heals. Physician logging assistant was integral in all portions of this procedure. They assisted with positioning the patient, draping the extremity, holding retractors, closing the wound, and applying the dressing. This was all done under my direct supervision. The physician logging assistant was essential for a successful, efficient surgery. - Admit VTE Documentation VTE Present on Admission: Yes VTE Mechan Device Prophylaxis: SCD's, Thigh High HARSHIL Duarte VTE Pharm Prophylaxis ordered?: Yes
--- NOTE | 2018-01-12 10:28 | OP.PCM_ITS ---
Report of Operation Date of Procedure: 01/12/18 Pre-Operative Diagnosis: Impacted right femoral neck fracture Post-Operative Diagnosis: Same Surgery/Procedure Performed:: Total hip arthroplasty right Description of Surgical Findings:: Transcervical femoral neck fracture railway traction line worker: Fab Fournier Type of Anesthesia:: Spinal Anesthesiologist: Jaspreet Velasquez Special Medications: txa Specimen's removed: Bone and soft tissue Estimated Blood Loss (mL): 100 Fluids Replaced: See anesthesia report Description of Procedure: Implants: Linda Accolade 2 size 6 127? valgus with 56 mm cup neutral neck and appropriate MDM components Surgical indications: Patient has suffered a femoral neck fracture. Patient is quite active and underwent consultation with Dr. Franklin. I am taking over the care of this patient and discussed the procedure with the patient at length. Because of his activity as well as some generalized right-sided hip pain prior to the injury we will proceed with a total hip arthroplasty. Consent form was signed Procedure description: The patient was greeted in the preoperative area the right hip was marked with surgical marker preoperative antibiotics administered. The patient was then taken to or suite in stable condition. Preoperative tranexamic acid was also utilized. Once the patient was placed in the supine position on the operating room table and once adequate anesthesia was obtained they were then placed in the lateral decubitus position with the surgical hip facing the field. All bony prominences were well-padded. A commercial hip position was utilized. The appropriate extremity was then prepped and draped in usual sterile fashion. Ioban was placed on the skin. Surgical timeout was performed and surgery was commenced. Standard anterolateral approach to the hip was then performed incision was planned and carried out with a #10 blade. Dissection was then carried length of the incision to the IT band which was split proximally and distally. A Charnley retractor was then placed for soft tissue retraction exposing the gluteus medius. The hip was then approached through a transgluteal approach and dislocated through an anterior capsulectomy. Severe eburnation of bone was noted periarticular osteophytes were identified consistent with severe end- stage osteoarthritis. A femoral osteotomy was then created approximately 1 fingerbreadth above the lesser trochanter. This was measured and placed on the back table. Once this was complete acetabular retractors were placed anteriorly and posteriorly and a 4 mm Steinmann pin was placed anterior superior aspect of the acetabulum for soft tissue retention. Labrum was then removed from the acetabulum exposing the entire cup of the acetabulum. Sequential reaming was then commenced and the acetabulum was medialized and sequentially widened in order to accommodate appropriate size cup. The acetabular cup was then impacted into position to the appropriate depth referencing approximately 30? inversion 45? of inclination. Excellent purchase was obtained. No screws were placed in the cup. MDM liner was then placed in the locking mechanism of the acetabulum, locking mechanism was engaged and confirmed to be locked. Attention was then turned to the femoral preparation. The hip was placed in the 90/90 position and a lateralizing box osteotome was utilized. Femoral starting awl was used followed by sequential broaching to the appropriate size. Excellent purchase was obtained with the stem no stem subsidence and excellent rotational stability was confirmed. A calcar reamer was then used in the trial head neck was placed on the broach. The hip was then located and taken through full range of motion flexion internal and external rotation as well as extension. Excellent stability was noted no impingement was identified of the components and leg lengths appear to be appropriate. The hip was at this point dislocated and the trial femoral components were removed. The final femoral stem was then implanted and impacted to the appropriate depth. Again excellent purchase was obtained no stem subsidence or rotational instability was noted. The hip was once again trialed and confirmation of leg length and stability was performed. Soft tissue tension also appeared to be appropriate. At this point the hip was redislocated and the trunnion was cleaned and dried meticulously in the appropriate size femoral head was placed on the clean dry trunnion using a 12/14 Morris taper. The hip was once again relocated and again taken through full range of motion. I did inject a cocktail of postoperative pain medication in the deep and superficial tissues. A quick Betadine bath was performed followed by copious irrigation. Anatomic closure of the gluteus medius and minimus was performed with #1 Vicryl [id number] type fashion followed by closure of the IT band with #1 Vicryl 0 Vicryl was utilized in subcutaneous tissue and surgical mitzi were placed in the skin. A well- padded nonadherent dressing was applied. Patient was taken to PACU in stable condition. No complications were identified. Will follow standard postop protocol for total hip arthroplasty. Patient must use assistive device for ambulation for approximately 6 weeks of the gluteal musculature heals. Physician under water assistant was integral in all portions of this procedure. They assisted with positioning the patient, draping the extremity, holding retractors , closing the wound, and applying the dressing. This was all done under my direct supervision. The physician under water assistant was essential for a successful, efficient surgery. - Admit VTE Documentation VTE Present on Admission: Yes VTE Mechan Device Prophylaxis: SCD's, Thigh High HARSHIL Duarte VTE Pharm Prophylaxis ordered?: Yes
--- NOTE | 2018-01-12 11:00 | NURSING ---
in ICU4 per bed from OR, OR staff in attendance
--- NOTE | 2018-01-12 11:00 | PCM.PN.HOSP ---
Patient Problems: Active and Suspected Problems (Last Updated 01/11/18 @ 18:02 by Jaspreet Gamez DO) Closed right hip fracture (Acute) Acute respiratory failure with hypoxia (Acute) Subjective: Patient is a 72-year-old male with a history of hypertension, anxiety and chronic respiratory failure with hypoxia. He was admitted via the ED after he tripped and fell on his right side. Imaging done showed an impacted fracture of the right hip. Orthopedics is on board and patient is scheduled for surgery today. Patient seen and examined. He had no complaints and felt well. He denied any shortness of breath, any chest pain, any abdominal pain, any fever or chills, any diarrhea vomiting. Review of systems is otherwise negative. Patient was noted to be on 6 L of oxygen via nasal cannula. When I asked patient why he was on 6 L, he told me, they just put me on it I do not know why. Further inquiry from nurse revealed that patient had been saturating at 86% to 90% whilst in the ED and so was put on oxygen and this was titrated up to 6 L. Saturation check during review was 90% even on the 6 L of oxygen. Upon further inquiry, patient states he had been following up with Dr. Groves his tableau report developer and had been told that the only problem he had with his lungs was due to his weight. He states he has had numerous PFTs in the past and had not had any abnormalities as far as he knew. Vitals/I&O's: Vital Signs Temp Pulse Resp BP Pulse Ox 99.8 F H 93 20 H 160/68 H 90 01/12/18 09:01 01/12/18 09:01 01/12/18 09:01 01/12/18 09:01 01/12/18 09:01 Oxygen Flow Rate (L/min) 6 Oxygen Delivery Method Nasal Cannula Weight: 215 lb 13.321 oz Body Mass Index (BMI) 30.5 Intake and Output for Last 24 Hours 01/10/18 01/11/18 01/12/18 23:59 23:59 23:59 Intake Total 1200 / 1200 Output Total 1300 / 1300 Balance -100 / -100 General: Alert, Oriented x3, Cooperative, No apparent distress HEENT: Atraumatic, PERRLA, EOMI, Normocephalic Oral: Moist Mucosa Neck: Supple, No JVD, Negative Carotid Bruits, No Nodes, No Nuchal Rigidity, Trachea Midline Lungs: - - coarse crackles in mid and lower lung [place] bilaterally. No wheezing or rhonchi Cardiovascular: Regular rate, Regular Rhythm, Normal S1, Normal S2, No murmurs Abdomen: Bowel Sounds Present, Soft, Non Tender, Non-Distended, No Hepato-splenomegaly Extremities: No clubbing, No cyanosis, No edema, Capillary Refill Less than 3 Seconds Skin: No rashes, No breakdown Musculoskeletal: No Tenderness to Palpation of Joints or Extremities Lymphatic: No Cervical, Supraclavicular, or Inguinal Adenopathy Neurological: Cranial nerves II-XII grossly intact, Motor Exam 5/5 strength throughout Psych/Mental Status: Normal Affect, Appropriate, Alert and oriented to time, place, person, mood and affect Laboratory Results 01/12/18 05:08: WBC 9.9, RBC 5.54, Hgb 17.4 H, Hct 51.2, MCV 92.4, MCH 31.4, MCHC 34.0, RDW 14.0, RDW Differential 47.2 H, Plt Count 108 L, MPV 10.6, Immature Gran % (Auto) 0.200, Neut % (Auto) 81.4 H, Lymph % (Auto) 7.7 L, Rusk % (Auto) 8.2, Eos % (Auto) 2.3, Baso % (Auto) 0.2, Absolute Neuts (auto) 8.1 H, Absolute Lymphs (auto) 0.76 L, Total Counted Not Reportable 01/12/18 05:08: Sodium 143, Potassium 4.0, Chloride 108 H, Carbon Dioxide 26.0, Anion Gap 9, BUN 14, Creatinine 0.80, Estim Creat Clear Calc 86.18, Est GFR (MDRD) Af Amer 122, Est GFR (MDRD) Non-Af 101, BUN/Creatinine Ratio 17.5, Glucose 101, Calcium 8.2 L 01/12/18 05:08: Vitamin D 25-Hydroxy 19.4 L 01/12/18 05:08: Blood Type A POSITIVE, Antibody Screen NEGATIVE Diagnostic Data Hip/Pelvis X-Ray 01/11/18 14:57 IMPRESSION: Right proximal femoral subcapital acute fracture as described. Fairly severe degenerative left hip as described. Electronically Signed: William Jacques, at 16:19 EDT Tel , Service support , Chest X-Ray 01/11/18 21:00 IMPRESSION: Diffuse pulmonary interstitial prominence. Electronically Signed: Javier Granger DO at 22:00 EDT Tel [phone], Service support , Current Medications Acetaminophen (Tylenol) 650 mg PO Q6H PRN PRN PRN Reason: Mild Pain (1-3)/Temp > 100.7 F Amlodipine Besylate (Norvasc) 10 mg PO DAILY [facility]in) [facility] Clonidine (Catapres) 0.1 mg PO Q6H PRN PRN Reason: SBP > 180 Doxazosin Mesylate (Cardura) 8 mg PO QHS [facility] Last Admin: 01/11/18 21:57 Dose: 8 mg Sodium Chloride () 250 mls @ 15 mls/hr IV .[id number] PRN PRN Reason: SALINE FLUSH Cefazolin Sodium () 1 gm in 50 mls @ 150 mls/hr IV Q8H [facility] Stop: 01/13/18 01:59 Lactated Ringer's () 1,000 mls @ 125 mls/hr IV .Q8H [facility] Ketorolac Tromethamine (Toradol) 15 mg IV Q6H PRN PRN PRN Reason: MILD-MOD PAIN (1-5/10) Stop: 01/17/18 09:31 Loperamide HCl (Imodium) 2 mg PO Q6H PRN PRN PRN Reason: Diarrhea Lorazepam (Ativan) 1 mg PO DAILY PRN PRN PRN Reason: ANXIETY Magnesium Hydroxide (Milk Of Magnesia) 30 ml PO DAILY PRN PRN PRN Reason: Constipation Morphine Sulfate () 2 - 4 mg IV Q4H PRN PRN PRN Reason: MOD-SEVERE PAIN (4-10/10) Morphine Sulfate () 2 - 4 mg IV Q4H PRN PRN PRN Reason: MOD-SEVERE PAIN (4-10/10) Last Admin: 01/11/18 21:55 Dose: 4 mg Morphine Sulfate (Ms Contin) 15 mg PO BID [facility] Ondansetron HCl (Zofran) 4 mg IV Q8H PRN PRN PRN Reason: NAUSEA Oxycodone HCl (Oxyir) 5 - 10 mg PO Q4H PRN PRN PRN Reason: MOD-SEVERE PAIN (4-10/10) Paroxetine HCl (Paxil) 10 mg PO DAILY [facility] Pravastatin Sodium (Pravachol) 20 mg PO QHS [facility] Last Admin: 01/11/18 21:56 Dose: 20 mg Promethazine HCl (Phenergan) 12.5 mg IM Q6H PRN PRN; Protocol PRN Reason: NAUSEA/VOMITING Senna/Docusate Sodium (Senokot-S, Amelie-Colace) 2 tablet PO BID [facility] Sodium Chloride () 5 - 30 ml IV UD PRN PRN Reason: SALINE FLUSH Medical Necessity - Tobacco Use Smoking Status: Former smoker Tobacco Use: Cigarettes Assessment/Plan All Active Problems (Last Updated 01/11/18 @ 18:02 by Jaspreet Gamez DO) Closed right hip fracture (Acute) Acute respiratory failure with hypoxia (Acute) 1. Right hip fracture due to mechanical fall patient tripped and fell and fractured his hip Xray showed impacted right fracture. EKG showed normal sinus rhythm. scheduled for surgery by orthopedics today 2. Acute hypoxic respiratory failure of unclear etiology may have possible idiopathic pulmonary fibrosis Patient is on 6 L of oxygen by nasal cannula. Not on home oxygen. Saturating at 90%. X-ray showed bilateral interstitial prominence. He has been followed up by tableau report developer on outpatient basis and was told that there was nothing wrong with his PFTs. Does have an extensive history of smoking but quit many years ago. Urgent pulmonology consult placed as patient is scheduled to go for surgery and needs pulmonary clearance. in light of his hip fracture, fat embolism is also a possibility Discuss with pulmonology. Patient to be transferred to ICU intubated after surgery for tableau report developer to monitor him and extubate him while he is stable. Per pulmonology, to have chest CT with contrast after surgery to assess pulmonary pathology. 3. Hypertension On amlodipine. Fairly controlled. Systolic BP in the 150s and 160s. Adjust medications as needed after surgery 4. Polycythemia hemoGlobin was 18 on admission is now down 17.4. Because of this is not clearly ascertained. This may be contributing to shortness of breath as well. Will benefit from follow-up after surgery. May need to check JAK2 mutation to assess for primary polycythemia. will continue hydrating with IVF 5. DVT prophylaxis: heparin Status: Full code Disposition: Transfer to ICU still intubated after surgery This note was generated with [employer] software. It may contain incorrect words, spelling, and punctuation that were not noted in checking the note before signing. Code Visit Inpatient E&M: 81207 Subs Hosp L3
--- NOTE | 2018-01-12 11:22 | PN_ITS ---
Patient Problems: Active and Suspected Problems (Last Updated 01/11/18 @ 18:02 by Jaspreet Gamez DO ) Closed right hip fracture (Acute) Acute respiratory failure with hypoxia (Acute) Subjective: Patient is a 72-year-old male with a history of hypertension, anxiety and chronic respiratory failure with hypoxia. He was admitted via the ED after he tripped and fell on his right side. Imaging done showed an impacted fracture of the right hip. Orthopedics is on board and patient is scheduled for surgery today. Patient seen and examined. He had no complaints and felt well. He denied any shortness of breath, any chest pain, any abdominal pain, any fever or chills, any diarrhea vomiting. Review of systems is otherwise negative. Patient was noted to be on 6 L of oxygen via nasal cannula. When I asked patient why he was on 6 L, he told me, they just put me on it I do not know why. Further inquiry from nurse revealed that patient had been saturating at 86% to 90% whilst in the ED and so was put on oxygen and this was titrated up to 6 L. Saturation check during review was 90% even on the 6 L of oxygen. Upon further inquiry, patient states he had been following up with Dr. Groves his hand cigar making supervisor and had been told that the only problem he had with his lungs was due to his weight. He states he has had numerous PFTs in the past and had not had any abnormalities as far as he knew. Vitals/I&O's: Vital Signs Temp Pulse Resp BP Pulse Ox 99.8 F H 93 20 H 160/68 H 90 01/12/18 09:01 01/12/18 09:01 01/12/18 09:01 01/12/18 09:01 01/12/18 09:01 Oxygen Flow Rate (L/min) 6 Oxygen Delivery Method Nasal Cannula Weight: 215 lb 13.321 oz Body Mass Index (BMI) 30.5 Intake and Output for Last 24 Hours 01/10/18 01/11/18 01/12/18 23:59 23:59 23:59 Intake Total 1200 / 1200 Output Total 1300 / 1300 Balance -100 / -100 General: Alert, Oriented x3, Cooperative, No apparent distress HEENT: Atraumatic, PERRLA, EOMI, Normocephalic Oral: Moist Mucosa Neck: Supple, No JVD, Negative Carotid Bruits, No Nodes, No Nuchal Rigidity, Trachea Midline Lungs: - - coarse crackles in mid and lower lung [place] bilaterally. No wheezing or rhonchi Cardiovascular: Regular rate, Regular Rhythm, Normal S1, Normal S2, No murmurs Abdomen: Bowel Sounds Present, Soft, Non Tender, Non-Distended, No Hepato- splenomegaly Extremities: No clubbing, No cyanosis, No edema, Capillary Refill Less than 3 Seconds Skin: No rashes, No breakdown Musculoskeletal: No Tenderness to Palpation of Joints or Extremities Lymphatic: No Cervical, Supraclavicular, or Inguinal Adenopathy Neurological: Cranial nerves II-XII grossly intact, Motor Exam 5/5 strength throughout Psych/Mental Status: Normal Affect, Appropriate, Alert and oriented to time, place, person, mood and affect Laboratory Results 01/12/18 05:08: WBC 9.9, RBC 5.54, Hgb 17.4 H, Hct 51.2, MCV 92.4, MCH 31.4, MCHC 34.0, RDW 14.0, RDW Differential 47.2 H, Plt Count 108 L, MPV 10.6, Immature Gran % (Auto) 0.200, Neut % (Auto) 81.4 H, Lymph % (Auto) 7.7 L, [place] % (Auto) 8.2, Eos % (Auto) 2.3, Baso % (Auto) 0.2, Absolute Neuts (auto) 8.1 H, Absolute Lymphs (auto) 0.76 L, Total Counted Not Reportable 01/12/18 05:08: Sodium 143, Potassium 4.0, Chloride 108 H, Carbon Dioxide 26.0, Anion Gap 9, BUN 14, Creatinine 0.80, Estim Creat Clear Calc 86.18, Est GFR ( MDRD) Af Amer 122, Est GFR (MDRD) Non-Af 101, BUN/Creatinine Ratio 17.5, Glucose 101, Calcium 8.2 L 01/12/18 05:08: Vitamin D 25-Hydroxy 19.4 L 01/12/18 05:08: Blood Type A POSITIVE, Antibody Screen NEGATIVE Diagnostic Data Hip/Pelvis X-Ray 01/11/18 14:57 IMPRESSION: Right proximal femoral subcapital acute fracture as described. Fairly severe degenerative left hip as described. Electronically Signed: William Jacques, at 16:19 EDT Tel , Service support , Chest X-Ray 01/11/18 21:00 IMPRESSION: Diffuse pulmonary interstitial prominence. Electronically Signed: Javier Granger DO at 22:00 EDT Tel [phone], Service support , Current Medications Acetaminophen (Tylenol) 650 mg PO Q6H PRN PRN PRN Reason: Mild Pain (1-3)/Temp > 100.7 F Amlodipine Besylate (Norvasc) 10 mg PO DAILY [facility] Aspirin (Aspirin) [facility] Clonidine (Catapres) 0.1 mg PO Q6H PRN PRN Reason: SBP > 180 Doxazosin Mesylate (Cardura) 8 mg PO QHS [facility] Last Admin: 01/11/18 21:57 Dose: 8 mg Sodium Chloride () 250 mls @ 15 mls/hr IV .[id number] PRN PRN Reason: SALINE FLUSH Cefazolin Sodium () 1 gm in 50 mls @ 150 mls/hr IV Q8H [facility] Stop: 01/13/18 01:59 Lactated Ringer's () 1,000 mls @ 125 mls/hr IV .Q8H [facility] Ketorolac Tromethamine (Toradol) 15 mg IV Q6H PRN PRN PRN Reason: MILD-MOD PAIN (1-5/10) Stop: 01/17/18 09:31 Loperamide HCl (Imodium) 2 mg PO Q6H PRN PRN PRN Reason: Diarrhea Lorazepam (Ativan) 1 mg PO DAILY PRN PRN PRN Reason: ANXIETY Magnesium Hydroxide (Milk Of Magnesia) 30 ml PO DAILY PRN PRN PRN Reason: Constipation Morphine Sulfate () 2 - 4 mg IV Q4H PRN PRN PRN Reason: MOD-SEVERE PAIN (4-10/10) Morphine Sulfate () 2 - 4 mg IV Q4H PRN PRN PRN Reason: MOD-SEVERE PAIN (4-10/10) Last Admin: 01/11/18 21:55 Dose: 4 mg Morphine Sulfate (Ms Contin) 15 mg PO BID [facility] Ondansetron HCl (Zofran) 4 mg IV Q8H PRN PRN PRN Reason: NAUSEA Oxycodone HCl (Oxyir) 5 - 10 mg PO Q4H PRN PRN PRN Reason: MOD-SEVERE PAIN (4-1010) Paroxetine HCl (Paxil) 10 mg PO DAILY [facility] Pravastatin Sodium (Pravachol) 20 mg PO QHS [facility] Last Admin: 01/11/18 21:56 Dose: 20 mg Promethazine HCl (Phenergan) 12.5 mg IM Q6H PRN PRN; Protocol PRN Reason: NAUSEA/VOMITING Senna/Docusate Sodium (Senokot-S, Amelie-Colace) 2 tablet PO BID [facility] Sodium Chloride () 5 - 30 ml IV UD PRN PRN Reason: SALINE FLUSH Medical Necessity - Tobacco Use Smoking Status: Former smoker Tobacco Use: Cigarettes Assessment/Plan All Active Problems (Last Updated 01/11/18 @ 18:02 by Jaspreet Gamez DO) Closed right hip fracture (Acute) Acute respiratory failure with hypoxia (Acute) 1. Right hip fracture due to mechanical fall * patient tripped and fell and fractured his hip * Xray showed impacted right fracture. * EKG showed normal sinus rhythm. * scheduled for surgery by orthopedics today * 2. Acute hypoxic respiratory failure of unclear etiology * may have possible idiopathic pulmonary fibrosis * Patient is on 6 L of oxygen by nasal cannula. Not on home oxygen. Saturating at 90%. * X-ray showed bilateral interstitial prominence. He has been followed up by hand cigar making supervisor on outpatient basis and was told that there was nothing wrong with his PFTs. Does have an extensive history of smoking but quit many years ago. * Urgent pulmonology consult placed as patient is scheduled to go for surgery and needs pulmonary clearance. * in light of his hip fracture, fat embolism is also a possibility * Discuss with pulmonology. Patient to be transferred to ICU intubated after surgery for hand cigar making supervisor to monitor him and extubate him while he is stable. * Per pulmonology, to have chest CT with contrast after surgery to assess pulmonary pathology. * 3. Hypertension * On amlodipine. * Fairly controlled. Systolic BP in the 150s and 160s. Adjust medications as needed after surgery * 4. Polycythemia * hemoGlobin was 18 on admission is now down 17.4. Because of this is not clearly ascertained. This may be contributing to shortness of breath as well. * Will benefit from follow-up after surgery. May need to check JAK2 mutation to assess for primary polycythemia. * will continue hydrating with IVF * 5. DVT prophylaxis: heparin Status: Full code Disposition: Transfer to ICU still intubated after surgery This note was generated with [employer] software. It may contain incorrect words, spelling, and punctuation that were not noted in checking the note before signing. Code Visit Inpatient E&M: 05688 Subs Hosp L3
--- NOTE | 2018-01-12 11:55 | NURSING ---
SpO2 to 87% consistently w/any activity/speech. to 8l high-flow nc.
--- NOTE | 2018-01-12 12:27 | CT_ITS ---
STUDY: CTA CHEST REASON FOR EXAM: Male, 72 years old. Shortness of breath. Evaluate for pulmonary embolus. RADIATION DOSAGE (If Supplied By Facility): CTDIvol = ( 23.31 ) mGy, DLP = ( 771.35 ) mGycm TECHNIQUE: The examination was performed with the intravenous administration of intravenous contrast material. Post-processing of the angiographic images was performed, with multiplanar reformation and 3D reconstruction. Individualized dose optimization techniques were used for this CT. COMPARISON: None. FINDINGS: The study is limited by patient motion. There are no central or proximal segmental pulmonary emboli. The distal segmental and subsegmental branches are not adequately evaluated. There is no evidence of thoracic aortic aneurysm or dissection. The heart and pericardium are within normal limits. There are coronary artery calcifications noted. There is mild mediastinal lymphadenopathy with the largest node measuring 1.4 cm in the subcarinal region. There are small bilateral pleural effusions with overlying atelectasis. There are no focal infiltrates. There is mild septal thickening, consistent with mild pulmonary vascular congestion. There is no pneumothorax. Images through the upper abdomen demonstrate no significant abnormality. There are no destructive osseous lesions. CT/CTA Chest W/WO Contrast IMPRESSION: Study limited by motion. No central or proximal segmental pulmonary embolus. No evidence of thoracic aortic aneurysm or dissection. Small bilateral pleural effusions overlying atelectasis. Mild pulmonary vascular congestion. Mediastinal lymphadenopathy. Coronary artery disease. Electronically Signed: Jabari Jackson, at 16:00 EDT Tel , Service support ,
[2018-01-12 12:28] LABS: M R Staph aureus DNA By PCR Negative (Negative); Probe Check PASS; Specimen Processing Control PASS
--- NOTE | 2018-01-12 13:00 | NURSING ---
to CT, TAR DISTRIBUTOR OPERATOR in attendance
--- NOTE | 2018-01-12 13:05 | CASEMGMT ---
See assessment for details. SW spoke w/pt briefly, pt about to leave the floor for a cat scan. Prior to fall, pt was independent. Pt would like to return home if possible, however pt has not had PT/OT yet. SW explained will have CM or SW stop in to see him tomorrow after therapy to review options at discharge. Pt states understanding. RENETTA De Los Santos, CANNERY TENDER ENGINEER
--- NOTE | 2018-01-12 13:18 | RAD_ITS ---
STUDY: X-RAY - PELVIS AND RIGHT HIP REASON FOR EXAM: Male, 72 years old. Post op right hip arthroplasty TECHNIQUE: Radiological exam, hip, unilateral, with pelvis when performed; 2 or 3 views. COMPARISON: 01/11/2018 FINDINGS: The patient is status post right hip arthroplasty. The hardware is intact and alignment is satisfactory. There is no acute fracture or dislocation. There is a Crawford catheter in place. RAD/Hip Min 2 Views (Portable) IMPRESSION: Status post right hip arthroplasty with intact hardware in satisfactory alignment. Electronically Signed: Jabari Jackson, at 17:12 EDT Tel , Service support ,
--- NOTE | 2018-01-12 13:30 | NURSING ---
return from CT, chief radiology in attendance
--- NOTE | 2018-01-12 13:43 | ECHOD_ITS ---
Reason For Study: Dyspnea/SOB Procedure This was a 2D Doppler, Color Flow transthoracic echocardiogram. Exam performed portable in ICU/CCU. Left Ventricle Normal size and thickness. The estimated ejection fraction is 75 %. Stage 1 diastolic dysfunction. No regional wall motion abnormalities noted. Right Ventricle Moderately dilated right ventricle. Mild to moderate global right ventricular systolic dysfunction. There are regional wall motion abnormalities. Atria Normal left atrium. Normal right atrium. Normal atrial septum. Mitral Valve The mitral valve is structurally normal. No prolapse or stenosis seen. Tricuspid Valve Normal tricuspid valve. Trivial tricuspid valve insufficiency. Right ventricular systolic pressure estimated to be 60 mmHg. Severe pulmonary hypertension. Aortic Valve Trisinus/trileaflet aortic valve. Mild diffuse aortic valve thickening. Pulmonic Valve The pulmonic valve is not well visualized. Great Vessels Normal aortic root. Normal arch. Normal inferior vena cava. Inferior vena cava collapse with sniff. Pericardium/Pleural No pericardial effusion. MMode/2D Measurements & Calculations LVIDd: 5.3 cm IVSd: 0.98 cm Ao root diam: 3.6 cm LVIDs: 3.1 cm LVPWd: 1.0 cm RVDd: 4.6 cm FS: 40.7 % LAV(MOD-bp): 38.0 ml EDV(MOD-sp4): 89.3 ml SV(MOD-sp4): 55.5 ml LAV(MOD-bp) Indexed: 17.7 ml/m2 ESV(MOD-sp4): 33.8 ml LAV(MOD-sp2): 37.5 ml EF(MOD-sp4): 62.2 % LAV(MOD-sp4): 35.1 ml LA A4 area: 15.6 cm2 RA A4 area: 14.7 cm2 Doppler Measurements & Calculations MV E max marc: 72.2 cm/sec Lat Peak E' Marc: 10.4 cm/sec Med Peak E' Marc: 7.8 cm/sec MV A max marc: 91.4 cm/sec E/E' lat: 6.9 E/E' med: 9.2 MV E/A: 0.79 Ao V2 max: 154.5 cm/sec LV V1 max: 107.5 cm/sec PA V2 max: 122.3 cm/sec Ao max P.6 mmHg LV V1 max P.6 mmHg Ao V2 mean: 102.4 cm/sec Ao mean P.7 mmHg Ao V2 VTI: 26.9 cm TR max marc: 369.8 cm/sec TR max P.7 mmHg Interpretation Summary The estimated ejection fraction is 75 %. Stage 1 diastolic dysfunction. Moderately dilated right ventricle. Trivial tricuspid valve insufficiency. Right ventricular systolic pressure estimated to be 60 mmHg. Severe pulmonary hypertension. Probable acute apical RV strain possibly c/w acute increase in pulmonary pressures. D/w Dr Barragan Ordering Physician: Ian Barragan Referring Physician: Brandon Cantor Performed By: Jenniffer Wood, TONY, RVT
--- NOTE | 2018-01-12 14:53 | NURSING ---
echo in progress
[2018-01-12] MEDS: PARoxetine 10 MG Tablet PO (15:37)
[2018-01-12] MEDS: morphine SR 15 MG Tablet PO ×2 (15:37→21:45)
[2018-01-12] MEDS: amLODIPine 10 MG Tablet PO (15:37)
[2018-01-12] MEDS: Aspirin 325 MG Tablet PO (15:37)
[2018-01-12] MEDS: Cefazolin 1 GM/50 ML BAG IV (18:00)
[2018-01-12] MEDS: Lactated Ringers 1,000 ML 125 ML IV (18:00)
[2018-01-12] MEDS: Calcium Carbonate 500 MG Tablet 1000 MG PO (18:09)
[2018-01-12] MEDS: Senna/Docusate Sodium 1 Tablet 2 TABLET PO (21:42)
[2018-01-12] MEDS: Doxazosin 4 MG Tablet 8 MG PO (21:42)
[2018-01-12] MEDS: Pravastatin 20 MG Tablet PO (21:43)
[2018-01-13] VITALS (28 sets, daily range): BP systolic 103–150; BP diastolic 37–92; PULSE 78–97; RESP 12–24; TEMP 36.8–37.4; O2SAT 89–94
[2018-01-13] MEDS: Lactated Ringers 1,000 ML 125 ML IV (02:14)
[2018-01-13] MEDS: Cefazolin 1 GM/50 ML BAG IV (02:14)
[2018-01-13] MEDS: oxyCODONE 5 MG Tablet PO (05:17)
[2018-01-13 05:50] LABS: Hematocrit 44.5 % (40-54); Hemoglobin 15.2 g/dl (13.0-16.5); Mean Corp Hgb Conc 34.2 g/gl (32-36); Mean Corpuscular Hgb 31.4 pg (27.0-32.0); Mean Corpuscular Volume 91.9 fL (80-94); Mean Platelet Vol. 10.5 fl (6.2-12.0); Platelet Count 116 K/mm3 (150-450); RBC Distribution Width CV 14.2 % (11.6-14.6); RBC Distribution Width SD 46.5 fl (35.1-43.9); Red Blood Count 4.84 M/mm3 (4.6-6.2); White Blood Count 10.1 K/mm3 (4.4-11.0)
[2018-01-13 06:00] LABS: Scan Indicated on CBC? Y/N NO
[2018-01-13 06:08] LABS: Anion Gap 8 (5-15); BUN 16 mg/dL (7-18); BUN/Creat Ratio 23.6 RATIO (10-20); Calcium,Total 8.2 mg/dL (8.5-10.1); Chloride 106 mmol/L (98-107); Creatinine, Serum 0.68 mg/dL (0.70-1.30); EST Glomerular Filtration Rate 122 mL/min (>60); Est Glom Filt Rate - Afr Amer 148 mL/min (>60); Estimated Creatinine Clearance 68.94 ml/min; Glucose 99 mg/dL (74-106); Sodium Level 141 mmol/L (136-145)
[2018-01-13 06:26] LABS: Magnesium 1.7 mg/dL (1.6-2.6); Phosphorus 2.4 mg/dL (2.5-4.9)
--- NOTE | 2018-01-13 07:02 | PN_ITS ---
Subjective: Patient did okay overnight. Patient is not reporting any significant dyspnea with lying flat or still, but has gone up to 10 L nasal cannula overnight. Patient denies any cough. Patient feels pain is relatively controlled. Objective: Records from [facility] were reviewed in detail. Patient with only mild restriction and decrease in DLCO in December. No cardiovascular results were included in old records. Echocardiogram completed yesterday showed an ejection fraction of 75% with elevated pulmonary artery systolic pressure of 60 and signs of right ventricular strain. General: Alert, Oriented x3, Cooperative, No apparent distress, - - Obese. Speaking in full sentences. HEENT: Atraumatic, PERRLA, EOMI, Normocephalic, - - No scleral icterus or injection noted. Glasses not in place. Oral: Moist Mucosa Neck: Supple, No JVD, No Nodes, Trachea Midline Lungs: No rhonchi, No wheeze, No rales, Diminished, - - Symmetric expansion. No dullness to percussion. Cardiovascular: Regular rate, Regular Rhythm, Normal S1, Normal S2, No murmurs, No rub noted, No Gallop Abdomen: Bowel Sounds Present, Soft, Non Tender, Non-Distended, Obese Extremities: No cyanosis, Clubbing, Edema - 1+ lower extremity Skin: Incision - Hip clean, dry and intact. Musculoskeletal: No Tenderness to Palpation of Joints or Extremities, No Muscle Wasting Lymphatic: No Cervical, Supraclavicular, or Inguinal Adenopathy Neurological: Cranial nerves II-XII grossly intact, Neuro grossly intact, Motor Exam 5/5 strength throughout Psych/Mental Status: Alert and oriented to time, place, person, mood and affect Vital Signs Temp Pulse Resp BP Pulse Ox 36.8 C 78 18 133/53 H 90 01/13/18 06:00 01/13/18 06:00 01/13/18 06:00 01/13/18 06:00 01/13/18 06:00 Oxygen Flow Rate (L/min) 10 Oxygen Delivery Method Nasal Cannula Weight: 99.9 kg Body Mass Index (BMI) 30.5 Intake and Output for Last 24 Hours 01/11/18 01/12/18 01/13/18 23:59 23:59 23:59 Intake Total 3730 / 3730 1592 / 1592 Output Total 1950 / 1950 550 / 550 Balance 1780 / 1780 1042 / 1042 Labs (Last 48 Hours) 01/12/18 01/12/18 01/12/18 05:08 05:08 05:08 WBC 9.9 RBC 5.54 Hgb 17.4 H Hct 51.2 MCV 92.4 MCH 31.4 MCHC 34.0 RDW 14.0 RDW Differential 47.2 H Plt Count 108 L MPV 10.6 Immature Gran % (Auto) 0.200 Neut % (Auto) 81.4 H Lymph % (Auto) 7.7 L [place] % (Auto) 8.2 Eos % (Auto) 2.3 Baso % (Auto) 0.2 Absolute Neuts (auto) 8.1 H Absolute Lymphs (auto) 0.76 L Total Counted Not Reportable Sodium 143 Potassium 4.0 Chloride 108 H Carbon Dioxide 26.0 Anion Gap 9 BUN 14 Creatinine 0.80 Estim Creat Clear Calc 86.18 Est GFR (MDRD) Af Amer 122 Est GFR (MDRD) Non-Af 101 BUN/Creatinine Ratio 17.5 Glucose 101 Calcium 8.2 L Phosphorus Magnesium Vitamin D 25-Hydroxy 19.4 L MRSA (PCR) Blood Type Antibody Screen 01/12/18 01/12/18 01/13/18 05:08 11:05 05:40 WBC 10.1 RBC 4.84 Hgb 15.2 Hct 44.5 MCV 91.9 MCH 31.4 MCHC 34.2 RDW 14.2 RDW Differential 46.5 H Plt Count 116 L MPV 10.5 Immature Gran % (Auto) Neut % (Auto) Lymph % (Auto) [place] % (Auto) Eos % (Auto) Baso % (Auto) Absolute Neuts (auto) Absolute Lymphs (auto) Total Counted Sodium Potassium Chloride Carbon Dioxide Anion Gap BUN Creatinine Estim Creat Clear Calc Est GFR (MDRD) Af Amer Est GFR (MDRD) Non-Af BUN/Creatinine Ratio Glucose Calcium Phosphorus Magnesium Vitamin D 25-Hydroxy MRSA (PCR) Negative Blood Type A POSITIVE Antibody Screen NEGATIVE 01/13/18 01/13/18 05:40 05:40 WBC RBC Hgb Hct MCV MCH MCHC RDW RDW Differential Plt Count MPV Immature Gran % (Auto) Neut % (Auto) Lymph % (Auto) [place] % (Auto) Eos % (Auto) Baso % (Auto) Absolute Neuts (auto) Absolute Lymphs (auto) Total Counted Sodium 141 Potassium 4.0 Chloride 106 Carbon Dioxide 27.0 Anion Gap 8 BUN 16 Creatinine 0.68 L Estim Creat Clear Calc 68.94 Est GFR (MDRD) Af Amer 148 Est GFR (MDRD) Non-Af 122 BUN/Creatinine Ratio 23.6 H Glucose 99 Calcium 8.2 L Phosphorus 2.4 L Magnesium 1.7 Vitamin D 25-Hydroxy MRSA (PCR) Blood Type Antibody Screen Clinical Impression(s) from Imaging Studies Chest CTA 01/12/18 12:27 IMPRESSION: Study limited by motion. No central or proximal segmental pulmonary embolus. No evidence of thoracic aortic aneurysm or dissection. Small bilateral pleural effusions overlying atelectasis. Mild pulmonary vascular congestion. Mediastinal lymphadenopathy. Coronary artery disease. Electronically Signed: Jabari Jackson, at 16:00 EDT Tel , Service support , Hip X-Ray 01/12/18 13:18 IMPRESSION: Status post right hip arthroplasty with intact hardware in satisfactory alignment. Electronically Signed: Jabari Jackson, at 17:12 EDT Tel , Service support , Medical Necessity - Tobacco Use Smoking Status: Former smoker Tobacco Use: Cigarettes Assessment/Plan All Active Problems (Last Updated 01/11/18 @ 18:02 by Jaspreet Gamez DO) Closed right hip fracture (Acute) Acute respiratory failure with hypoxia (Acute) RECOMMENDATIONS: 1. Dose with Lasix therapy 2. Add heparin drip if okay with orthopedic surgery 3. Wean oxygen as tolerated 4. PT/OT evaluations 5. Increase activity per orthopedic surgery IMPRESSIONS: 1. Acute hypoxic respiratory failure secondary to cor pulmonale Unclear etiology at this time. Patient did have motion artifact on the CT scan of the chest, but no intraluminal defects were noted. Patient does have significant elevation of pulmonary artery pressures. No previous data is available for review from a cardiovascular standpoint, but this would explain hypoxemia. Patient will be given a dose of diuretics. Patient would benefit from an empiric heparin drip if okay with orthopedic surgery for the possibility of subclinical pulmonary emboli showering distal vasculature. Cannot exclude the need to advance to BiPAP therapy 2. Acute right hip fracture status post mechanical fall postop day #1 Orthopedic surgery is following. Patient able to tolerate surgical procedure well. Patient did have some drop in hemoglobin following surgery, but this is still well within acceptable levels. Wound does not appear abnormal to my inspection. Increase activity per orthopedic surgery. 3. Obesity/BPH/hypertension/advanced age Complicates care, management, recovery and prognosis. Code Visit Inpatient E&M: 28611 Subs Hosp L3
[2018-01-13] MEDS: Furosemide 20 MG/2 ML VIAL IV (07:18)
--- NOTE | 2018-01-13 08:48 | PCM.PN.HOSP ---
Patient Problems: Active and Suspected Problems (Last Updated 01/11/18 @ 18:02 by Jaspreet Gamez DO) Closed right hip fracture (Acute) Acute respiratory failure with hypoxia (Acute) Subjective: No shortness of breath. Right hip is still. Objective: Increased O2 requirements on 10 liters. Echo showed acute apical RV strain c/w acute increase in pulm pressures. CTA did not show PE, but being started on heparin gtt for possible PE (clot v fat). Vitals/I&O's: Vital Signs Temp Pulse Resp BP Pulse Ox 36.8 C 85 18 133/53 H 90 01/13/18 06:00 01/13/18 07:43 01/13/18 06:00 01/13/18 06:00 01/13/18 06:00 Oxygen Flow Rate (L/min) 10 Oxygen Delivery Method Nasal Cannula Weight: 99.9 kg Body Mass Index (BMI) 30.5 Intake and Output for Last 24 Hours 01/11/18 01/12/18 01/13/18 23:59 23:59 23:59 Intake Total 3730 / 3730 1592 / 1592 Output Total 1950 / 1950 550 / 550 Balance 1780 / 1780 1042 / 1042 General: Alert, No apparent distress HEENT: Atraumatic, Normocephalic Oral: Moist Mucosa, No Gingival or Mucosal Lesions/ Ulcerations Neck: No Nodes, Thyroid Normal Size and Texture Lungs: Clear to auscultation, No rhonchi, No wheeze, Diminished Cardiovascular: Regular rate, Regular Rhythm, Normal S1, Normal S2, No murmurs Abdomen: Bowel Sounds Present, Soft, Non Tender, Non-Distended, No Hepato-splenomegaly Extremities: No edema, No Calf Tenderness Skin: No rashes, No breakdown Musculoskeletal: No Muscle Wasting Neurological: Neuro grossly intact, Muscle tone normal Psych/Mental Status: Normal Affect, Appropriate Laboratory Results 01/12/18 05:08: Vitamin D 25-Hydroxy 19.4 L 01/12/18 11:05: MRSA (PCR) Negative 01/13/18 05:40: WBC 10.1, RBC 4.84, Hgb 15.2, Hct 44.5, MCV 91.9, MCH 31.4, MCHC 34.2, RDW 14.2, RDW Differential 46.5 H, Plt Count 116 L, MPV 10.5 01/13/18 05:40: Sodium 141, Potassium 4.0, Chloride 106, Carbon Dioxide 27.0, Anion Gap 8, BUN 16, Creatinine 0.68 L, Estim Creat Clear Calc 68.94, Est GFR (MDRD) Af Amer 148, Est GFR (MDRD) Non-Af 122, BUN/Creatinine Ratio 23.6 H, Glucose 99, Calcium 8.2 L 01/13/18 05:40: Phosphorus 2.4 L, Magnesium 1.7 Current Medications Acetaminophen (Tylenol) 650 mg PO Q6H PRN PRN PRN Reason: Mild Pain (1-3)/Temp > 100.7 F Amlodipine Besylate (Norvasc) 10 mg PO DAILY [facility] Last Admin: 01/12/18 15:37 Dose: 10 [facility] Last Admin: 01/12/18 15:37 Dose: 325 mg Calcium Carbonate (Tums) 1,000 mg PO Q4H PRN PRN PRN Reason: INDIGESTION Last Admin: 01/12/18 18:09 Dose: 1,000 mg Clonidine (Catapres) 0.1 mg PO Q6H PRN PRN Reason: SBP > 180 Doxazosin Mesylate (Cardura) 8 mg PO QHS [facility] Last Admin: 01/12/18 21:42 Dose: 8 mg Ergocalciferol (Vitamin D) 50,000 unit PO Q7D [facility] Heparin Sodium (Porcine) (Heparin Na) 0 unit IV UD PRN PRN Reason: Protocol Sodium Chloride () 250 mls @ 15 mls/hr IV .[id number] PRN PRN Reason: SALINE FLUSH Lactated Ringer's () 1,000 mls @ 125 mls/hr IV .Q8H [facility] Last Admin: 01/13/18 02:14 Dose: 125 mls/hr Heparin Sodium/Dextrose () 25,000 units in 250 mls @ 14 mls/hr IV .[id number] [facility]; As Directed PRN Reason: Protocol Ketorolac Tromethamine (Toradol) 15 mg IV Q6H PRN PRN PRN Reason: MILD-MOD PAIN (1-5/10) Loperamide HCl (Imodium) 2 mg PO Q6H PRN PRN PRN Reason: Diarrhea Lorazepam (Ativan) 1 mg PO DAILY PRN PRN PRN Reason: ANXIETY Magnesium Hydroxide (Milk Of Magnesia) 30 ml PO DAILY PRN PRN PRN Reason: Constipation Morphine Sulfate () 2 - 4 mg IV Q4H PRN PRN PRN Reason: MOD-SEVERE PAIN (4-10/10) Morphine Sulfate () 2 - 4 mg IV Q4H PRN PRN PRN Reason: MOD-SEVERE PAIN (4-10/10) Last Admin: 01/11/18 21:55 Dose: 4 mg Morphine Sulfate (Ms Contin) 15 mg PO BID [facility] Last Admin: 01/12/18 21:45 Dose: 15 mg Ondansetron HCl (Zofran) 4 mg IV Q8H PRN PRN PRN Reason: NAUSEA Oxycodone HCl (Oxyir) 5 - 10 mg PO Q4H PRN PRN PRN Reason: MOD-SEVERE PAIN (4-10/10) Last Admin: 01/13/18 05:17 Dose: 5 mg Paroxetine HCl (Paxil) 10 mg PO DAILY [facility] Last Admin: 01/12/18 15:37 Dose: 10 mg Pravastatin Sodium (Pravachol) 20 mg PO QHS [facility] Last Admin: 01/12/18 21:43 Dose: 20 mg Promethazine HCl (Phenergan) 12.5 mg IM Q6H PRN PRN; Protocol PRN Reason: NAUSEA/VOMITING Senna/Docusate Sodium (Senokot-S, Amelie-Colace) 2 tablet PO BID [facility] Last Admin: 01/12/18 21:42 Dose: 2 tablet Sodium Chloride () 5 - 30 ml IV UD PRN PRN Reason: SALINE FLUSH Medical Necessity - Tobacco Use Smoking Status: Former smoker Tobacco Use: Cigarettes Assessment/Plan All Active Problems (Last Updated 01/11/18 @ 18:02 by Jaspreet Gamez DO) Closed right hip fracture (Acute) Acute respiratory failure with hypoxia (Acute) 1. Right hip fracture Due to mechanical fall Patient has a very good performance status and no active issues to prohibit him from undergoing surgery. s/p Right MERCED on 01/12 mgmt per ortho 2. Acute hypoxic respiratory failure increased O2 requirements since hospitalization concern is for PE (clot v fat). despite CTA being negative, being started on heparin gtt. noted increased acute right heart strain on echo wean oxygen as tolerated dw Dr. Yung, will keep in ICU overnight 3. Hypertension improved Accelerated Continue with amlodipine Clonidine as needed for systolic blood pressure greater than 180 4. Polycythemia Unclear this is acute or chronic as there is no baseline labs to compare to suspect chronic d/t chronic resp failure down to 15.4, but suspect d/t acute blood loss 5. Acute blood loss anemia Hg 18 to now 15.4 no need for transfusion 6. DVT prophylaxis with SCDs and to be anticoagulated Code Visit Inpatient E&M: 52802 Subs Hosp L3
--- NOTE | 2018-01-13 08:49 | PN.ORTHO_ITS ---
Patient Problems: Active and Suspected Problems (Last Updated 01/11/18 @ 18:02 by Jaspreet Gamez DO ) Closed right hip fracture (Acute) Acute respiratory failure with hypoxia (Acute) Subjective: Patient is doing very well in terms of his right-sided hip pain. He has not been out of bed secondary to his pulmonary issues. He does complain of some right-sided knee pain and has known osteoarthritis Objective: No evidence of blood clot. Patient is neurovascularly intact. Passive range of motion of the hip is well-tolerated with minimal discomfort. The dressing is clean and dry - Physical Exam Vital Signs Temp Pulse Resp BP Pulse Ox 98.2 F 85 18 133/53 H 90 01/13/18 06:00 01/13/18 07:43 01/13/18 06:00 01/13/18 06:00 01/13/18 06:00 Oxygen Flow Rate (L/min) 10 Oxygen Delivery Method Nasal Cannula Weight: 220 lb 3.869 oz Body Mass Index (BMI) 30.5 Intake and Output for Last 24 Hours 01/11/18 01/12/18 01/13/18 23:59 23:59 23:59 Intake Total 3730 / 3730 1592 / 1592 Output Total 1950 / 1950 550 / 550 Balance 1780 / 1780 1042 / 1042 Laboratory Tests Past 24 Hrs 01/12/18 01/12/18 01/13/18 05:08 11:05 05:40 WBC 10.1 RBC 4.84 Hgb 15.2 Hct 44.5 MCV 91.9 MCH 31.4 MCHC 34.2 RDW 14.2 RDW Differential 46.5 H Plt Count 116 L MPV 10.5 Sodium Potassium Chloride Carbon Dioxide Anion Gap BUN Creatinine Estim Creat Clear Calc Est GFR (MDRD) Af Amer Est GFR (MDRD) Non-Af BUN/Creatinine Ratio Glucose Calcium Phosphorus Magnesium Vitamin D 25-Hydroxy 19.4 L MRSA (PCR) Negative 01/13/18 01/13/18 05:40 05:40 WBC RBC Hgb Hct MCV MCH MCHC RDW RDW Differential Plt Count MPV Sodium 141 Potassium 4.0 Chloride 106 Carbon Dioxide 27.0 Anion Gap 8 BUN 16 Creatinine 0.68 L Estim Creat Clear Calc 68.94 Est GFR (MDRD) Af Amer 148 Est GFR (MDRD) Non-Af 122 BUN/Creatinine Ratio 23.6 H Glucose 99 Calcium 8.2 L Phosphorus 2.4 L Magnesium 1.7 Vitamin D 25-Hydroxy MRSA (PCR) Medical Necessity - Tobacco Use Smoking Status: Former smoker Tobacco Use: Cigarettes Assessment/Plan All Active Problems (Last Updated 01/11/18 @ 18:02 by Jaspreet Gamez DO) Closed right hip fracture (Acute) Acute respiratory failure with hypoxia (Acute) Postop day 1 right total hip arthroplasty for femoral neck fracture. Continue with standard orthopedic post replacement protocol as able given his pulmonary issues. I did discuss the case with Dr. Barragan and there is some concern that potentially patient has suffered from fat emboli syndrome although this is not apparent on the CT scan. Appropriate anticoagulation was discussed with Dr. Barragan. At this point I am certainly okay with a heparin drip and will watch for significant bleeding at the incision site
--- NOTE | 2018-01-13 08:57 | PN_ITS ---
Patient Problems: Active and Suspected Problems (Last Updated 01/11/18 @ 18:02 by Jaspreet Gamez DO ) Closed right hip fracture (Acute) Acute respiratory failure with hypoxia (Acute) Subjective: No shortness of breath. Right hip is still. Objective: Increased O2 requirements on 10 liters. Echo showed acute apical RV strain c/w acute increase in pulm pressures. CTA did not show PE, but being started on heparin gtt for possible PE (clot v fat). Vitals/I&O's: Vital Signs Temp Pulse Resp BP Pulse Ox 36.8 C 85 18 133/53 H 90 01/13/18 06:00 01/13/18 07:43 01/13/18 06:00 01/13/18 06:00 01/13/18 06:00 Oxygen Flow Rate (L/min) 10 Oxygen Delivery Method Nasal Cannula Weight: 99.9 kg Body Mass Index (BMI) 30.5 Intake and Output for Last 24 Hours 01/11/18 01/12/18 01/13/18 23:59 23:59 23:59 Intake Total 3730 / 3730 1592 / 1592 Output Total 1950 / 1950 550 / 550 Balance 1780 / 1780 1042 / 1042 General: Alert, No apparent distress HEENT: Atraumatic, Normocephalic Oral: Moist Mucosa, No Gingival or Mucosal Lesions/ Ulcerations Neck: No Nodes, Thyroid Normal Size and Texture Lungs: Clear to auscultation, No rhonchi, No wheeze, Diminished Cardiovascular: Regular rate, Regular Rhythm, Normal S1, Normal S2, No murmurs Abdomen: Bowel Sounds Present, Soft, Non Tender, Non-Distended, No Hepato- splenomegaly Extremities: No edema, No Calf Tenderness Skin: No rashes, No breakdown Musculoskeletal: No Muscle Wasting Neurological: Neuro grossly intact, Muscle tone normal Psych/Mental Status: Normal Affect, Appropriate Laboratory Results 01/12/18 05:08: Vitamin D 25-Hydroxy 19.4 L 01/12/18 11:05: MRSA (PCR) Negative 01/13/18 05:40: WBC 10.1, RBC 4.84, Hgb 15.2, Hct 44.5, MCV 91.9, MCH 31.4, MCHC 34.2, RDW 14.2, RDW Differential 46.5 H, Plt Count 116 L, MPV 10.5 01/13/18 05:40: Sodium 141, Potassium 4.0, Chloride 106, Carbon Dioxide 27.0, Anion Gap 8, BUN 16, Creatinine 0.68 L, Estim Creat Clear Calc 68.94, Est GFR ( MDRD) Af Amer 148, Est GFR (MDRD) Non-Af 122, BUN/Creatinine Ratio 23.6 H, Glucose 99, Calcium 8.2 L 01/13/18 05:40: Phosphorus 2.4 L, Magnesium 1.7 Current Medications Acetaminophen (Tylenol) 650 mg PO Q6H PRN PRN PRN Reason: Mild Pain (1-3)/Temp > 100.7 F Amlodipine Besylate (Norvasc) 10 mg PO DAILY [facility] Last Admin: 01/12/18 15:37 Dose: 10 mg [facility] Last Admin: 01/12/18 15:37 Dose: 325 mg Calcium Carbonate (Tums) 1,000 mg PO Q4H PRN PRN PRN Reason: INDIGESTION Last Admin: 01/12/18 18:09 Dose: 1,000 mg Clonidine (Catapres) 0.1 mg PO Q6H PRN PRN Reason: SBP > 180 Doxazosin Mesylate (Cardura) 8 mg PO QHS [facility] Last Admin: 01/12/18 21:42 Dose: 8 mg Ergocalciferol (Vitamin D) 50,000 unit PO Q7D [facility] Heparin Sodium (Porcine) (Heparin Na) 0 unit IV UD PRN PRN Reason: Protocol Sodium Chloride () 250 mls @ 15 mls/hr IV .[id number] PRN PRN Reason: SALINE FLUSH Lactated Ringer's () 1,000 mls @ 125 mls/hr IV .Q8H [facility] Last Admin: 01/13/18 02:14 Dose: 125 mls/hr Heparin Sodium/Dextrose () 25,000 units in 250 mls @ 14 mls/hr IV .[id number] [facility] ; As Directed PRN Reason: Protocol Ketorolac Tromethamine (Toradol) 15 mg IV Q6H PRN PRN PRN Reason: MILD-MOD PAIN (1-5/10) Loperamide HCl (Imodium) 2 mg PO Q6H PRN PRN PRN Reason: Diarrhea Lorazepam (Ativan) 1 mg PO DAILY PRN PRN PRN Reason: ANXIETY Magnesium Hydroxide (Milk Of Magnesia) 30 ml PO DAILY PRN PRN PRN Reason: Constipation Morphine Sulfate () 2 - 4 mg IV Q4H PRN PRN PRN Reason: MOD-SEVERE PAIN (4-10/10) Morphine Sulfate () 2 - 4 mg IV Q4H PRN PRN PRN Reason: MOD-SEVERE PAIN (4-10/10) Last Admin: 01/11/18 21:55 Dose: 4 mg Morphine Sulfate (Ms Contin) 15 mg PO BID [facility] Last Admin: 01/12/18 21:45 Dose: 15 mg Ondansetron HCl (Zofran) 4 mg IV Q8H PRN PRN PRN Reason: NAUSEA Oxycodone HCl (Oxyir) 5 - 10 mg PO Q4H PRN PRN PRN Reason: MOD-SEVERE PAIN (4-10/10) Last Admin: 01/13/18 05:17 Dose: 5 mg Paroxetine HCl (Paxil) 10 mg PO DAILY [facility] Last Admin: 01/12/18 15:37 Dose: 10 mg Pravastatin Sodium (Pravachol) 20 mg PO QHS [facility] Last Admin: 01/12/18 21:43 Dose: 20 mg Promethazine HCl (Phenergan) 12.5 mg IM Q6H PRN PRN; Protocol PRN Reason: NAUSEA/VOMITING Senna/Docusate Sodium (Senokot-S, Amelie-Colace) 2 tablet PO BID [facility] Last Admin: 01/12/18 21:42 Dose: 2 tablet Sodium Chloride () 5 - 30 ml IV UD PRN PRN Reason: SALINE FLUSH Medical Necessity - Tobacco Use Smoking Status: Former smoker Tobacco Use: Cigarettes Assessment/Plan All Active Problems (Last Updated 01/11/18 @ 18:02 by Jaspreet Gamez DO) Closed right hip fracture (Acute) Acute respiratory failure with hypoxia (Acute) 1. Right hip fracture * Due to mechanical fall * Patient has a very good performance status and no active issues to prohibit him from undergoing surgery. * s/p Right MERCED on 01/12 * mgmt per ortho 2. Acute hypoxic respiratory failure * increased O2 requirements since hospitalization * concern is for PE (clot v fat). despite CTA being negative, being started on heparin gtt. * noted increased acute right heart strain on echo * wean oxygen as tolerated * dw Dr. Barragan, will keep in ICU overnight 3. Hypertension * improved * Accelerated * Continue with amlodipine * Clonidine as needed for systolic blood pressure greater than 180 4. Polycythemia * Unclear this is acute or chronic as there is no baseline labs to compare to * suspect chronic d/t chronic resp failure * down to 15.4, but suspect d/t acute blood loss 5. Acute blood loss anemia * Hg 18 to now 15.4 * no need for transfusion 6. DVT prophylaxis with SCDs and to be anticoagulated Code Visit Inpatient E&M: 67970 Subs Hosp L3
[2018-01-13 09:02] LABS: International Normalized Ratio 1.2; Prothrombin Time (Protime)PT. 15.5 SECONDS (11.7-14.9)
[2018-01-13 09:03] LABS: Partial Thromboplast Time 33.7 Seconds (24.1-36.2)
[2018-01-13] MEDS: amLODIPine 10 MG Tablet PO (09:39)
[2018-01-13] MEDS: Aspirin 325 MG Tablet PO ×2 (09:39→18:39)
[2018-01-13] MEDS: PARoxetine 10 MG Tablet PO (09:40)
[2018-01-13] MEDS: Senna/Docusate Sodium 1 Tablet 2 TABLET PO ×2 (09:40→22:04)
[2018-01-13] MEDS: HEPARIN/D5w 25,000 UNITS 25,000 UNITS/250 ML IV.SOLN. 14 UNITS IV (09:41)
[2018-01-13] MEDS: morphine SR 15 MG Tablet PO ×2 (09:44→22:04)
[2018-01-13] MEDS: 0.9% NaCl Peripheral Flush Adult/Peds IV ×2 (09:46→18:40)
--- NOTE | 2018-01-13 12:32 | CASEMGMT ---
SOCIAL WORK: Referral received this date from primary SW to follow up with patient regarding discharge planning needs. SW met with patient, and a daughter in his room. Introduced self and SW role at [facility] for weekend rotation. Reviewed options such as home therapies, outpatient therapies and short-term SNF placement. Education provided regarding required pre-cert with insurance company which can take up to 72 hours. inquired if hospital based TCU is a provider for their insurance. SW advised that according to insurance website that it appears to be. Per her and patient request, SW placed patient on [facility] TCU waiting list per message on post-acute referral line voice mail with request for call back to primary adoption social worker on Monday; explained to patient and that primary adoption social worker will advise them of bed availability on Monday and if a second SNF choice will be needed. They voiced understanding and agreement. Daughter did not participate in discharge planning discussion. No further needs or questions identified. PLAN: Patient placed on [facility] TCU list; awaiting bed availability and will need pre-cert. Moon JACKSON,ASHLEY
[2018-01-13] MEDS: Doxazosin 4 MG Tablet 8 MG PO (22:04)
[2018-01-13] MEDS: Pravastatin 20 MG Tablet PO (22:04)
[2018-01-13 22:30] LABS: Partial Thromboplast Time 71.1 Seconds (24.1-36.2)
[2018-01-14] VITALS (18 sets, daily range): BP systolic 123–153; BP diastolic 59–72; PULSE 74–97; RESP 14–20; TEMP 36.6–37.1; O2SAT 91–97
[2018-01-14] MEDS: HEPARIN/D5w 25,000 UNITS 25,000 UNITS/250 ML IV.SOLN. 14 UNITS IV (04:23)
[2018-01-14] MEDS: 0.9% NaCl Peripheral Flush Adult/Peds IV ×3 (04:23→21:47)
[2018-01-14 04:43] LABS: Hematocrit 41.1 % (40-54); Hemoglobin 14.2 g/dl (13.0-16.5); Mean Corp Hgb Conc 34.5 g/gl (32-36); Mean Corpuscular Hgb 31.6 pg (27.0-32.0); Mean Corpuscular Volume 91.5 fL (80-94); Mean Platelet Vol. 11.1 fl (6.2-12.0); Platelet Count 100 K/mm3 (150-450); RBC Distribution Width CV 13.8 % (11.6-14.6); RBC Distribution Width SD 45.7 fl (35.1-43.9); Red Blood Count 4.49 M/mm3 (4.6-6.2); White Blood Count 9.1 K/mm3 (4.4-11.0)
[2018-01-14 04:46] LABS: Scan Indicated on CBC? Y/N NO
[2018-01-14 05:10] LABS: Anion Gap 9 (5-15); BUN 16 mg/dL (7-18); BUN/Creat Ratio 23.2 RATIO (10-20); Calcium,Total 7.9 mg/dL (8.5-10.1); Chloride 102 mmol/L (98-107); Creatinine, Serum 0.69 mg/dL (0.70-1.30); EST Glomerular Filtration Rate 120 mL/min (>60); Est Glom Filt Rate - Afr Amer 145 mL/min (>60); Estimated Creatinine Clearance 68.94 ml/min; Glucose 91 mg/dL (74-106); Potassium 3.7 mmol/L (3.5-5.1); Sodium Level 140 mmol/L (136-145)
[2018-01-14] MEDS: Heparin Injection (Vial) 5,000 UNIT/ML VIAL IV (05:40)
[2018-01-14] MEDS: Furosemide 20 MG/2 ML VIAL IV ×3 (06:16→21:43)
--- NOTE | 2018-01-14 06:33 | PCM.PN.INT ---
Subjective: Patient did well overnight. Patient reporting some issues with knee stiffness. Patient does have some dyspnea on exertion, but nursing reports he does not move much in the bed. Patient did receive Lasix yesterday, but ended the day fluid positive. Patient remains on heparin drip with no bleeding complications. General: Alert, Oriented x3, Cooperative, No apparent distress, - - Speaking in full sentences. HEENT: Atraumatic, PERRLA, EOMI, Normocephalic, - - Glasses in place. No scleral icterus or injection noted. Oral: Moist Mucosa, No Gingival or Mucosal Lesions/ Ulcerations Neck: Supple, No Nodes, Trachea Midline, JVD, Right Lungs: No rhonchi, No wheeze, No rales, Diminished, - - Symmetric expansion. No dullness to percussion. Cardiovascular: Regular rate, Regular Rhythm, Normal S1, Normal S2, No murmurs, No rub noted, No Gallop Abdomen: Bowel Sounds Present, Soft, Non Tender, Non-Distended Extremities: No clubbing, No cyanosis, No edema Skin: No rashes, No breakdown, Incision - Clean, dry and intact. Musculoskeletal: Tenderness - Palpation of right hip Lymphatic: No Cervical, Supraclavicular, or Inguinal Adenopathy Neurological: Cranial nerves II-XII grossly intact, Neuro grossly intact, Motor Exam 5/5 strength throughout Psych/Mental Status: Alert and oriented to time, place, person, mood and affect Vital Signs Temp Pulse Resp BP Pulse Ox 36.9 C 90 17 126/59 H 93 01/14/18 04:00 01/14/18 05:00 01/14/18 05:00 01/14/18 05:00 01/14/18 05:00 Oxygen Flow Rate (L/min) 8 Oxygen Delivery Method Nasal Cannula Weight: 100.1 kg Body Mass Index (BMI) 30.5 Intake and Output for Last 24 Hours 01/12/18 01/13/18 01/14/18 23:59 23:59 23:59 Intake Total 3730 / 3730 2921 / 2921 507 / 507 Output Total 1949 425 / 425 Balance 1780 / 1780 971 / 971 82 / 82 Labs (Last 48 Hours) 01/12/18 01/12/18 01/12/18 05:08 05:08 11:05 WBC RBC Hgb Hct MCV MCH MCHC RDW RDW Differential Plt Count MPV PT INR APTT Sodium Potassium Chloride Carbon Dioxide Anion Gap BUN Creatinine Estim Creat Clear Calc Est GFR (MDRD) Af Amer Est GFR (MDRD) Non-Af BUN/Creatinine Ratio Glucose Calcium Phosphorus Magnesium Vitamin D 25-Hydroxy 19.4 L MRSA (PCR) Negative Blood Type A POSITIVE Antibody Screen NEGATIVE 01/13/18 01/13/18 01/13/18 05:40 05:40 05:40 WBC 10.1 RBC 4.84 Hgb 15.2 Hct 44.5 MCV 91.9 MCH 31.4 MCHC 34.2 RDW 14.2 RDW Differential 46.5 H Plt Count 116 L MPV 10.5 PT INR APTT Sodium 141 Potassium 4.0 Chloride 106 Carbon Dioxide 27.0 Anion Gap 8 BUN 16 Creatinine 0.68 L Estim Creat Clear Calc 68.94 Est GFR (MDRD) Af Amer 148 Est GFR (MDRD) Non-Af 122 BUN/Creatinine Ratio 23.6 H Glucose 99 Calcium 8.2 L Phosphorus 2.4 L Magnesium 1.7 Vitamin D 25-Hydroxy MRSA (PCR) Blood Type Antibody Screen 01/13/18 01/13/18 01/13/18 08:40 16:20 22:15 WBC RBC Hgb Hct MCV MCH MCHC RDW RDW Differential Plt Count MPV PT 15.5 H INR 1.2 APTT 33.7 56.0 H 71.1 H Sodium Potassium Chloride Carbon Dioxide Anion Gap BUN Creatinine Estim Creat Clear Calc Est GFR (MDRD) Af Amer Est GFR (MDRD) Non-Af BUN/Creatinine Ratio Glucose Calcium Phosphorus Magnesium Vitamin D 25-Hydroxy MRSA (PCR) Blood Type Antibody Screen 01/14/18 01/14/18 01/14/18 04:30 04:30 04:30 WBC 9.1 RBC 4.49 L Hgb 14.2 Hct 41.1 MCV 91.5 MCH 31.6 MCHC 34.5 RDW 13.8 RDW Differential 45.7 H Plt Count 100 L MPV 11.1 PT INR APTT 45.0 H Sodium 140 Potassium 3.7 Chloride 102 Carbon Dioxide 29.0 Anion Gap 9 BUN 16 Creatinine 0.69 L Estim Creat Clear Calc 68.94 Est GFR (MDRD) Af Amer 145 Est GFR (MDRD) Non-Af 120 BUN/Creatinine Ratio 23.2 H Glucose 91 Calcium 7.9 L Phosphorus Magnesium Vitamin D 25-Hydroxy MRSA (PCR) Blood Type Antibody Screen Medical Necessity - Tobacco Use Smoking Status: Former smoker Tobacco Use: Cigarettes Assessment/Plan All Active Problems (Last Updated 01/11/18 @ 18:02 by Jaspreet Gamez DO) Closed right hip fracture (Acute) Acute respiratory failure with hypoxia (Acute) RECOMMENDATIONS: 1. Increase diuretic dosing 2. Continue heparin drip 3. Wean oxygen as tolerated 4. PT/OT evaluations 5. Increase activity per orthopedic surgery IMPRESSIONS: 1. Acute hypoxic respiratory failure secondary to cor pulmonale Unclear etiology at this time. Patient currently has had mild improvement in oxygenation. Patient was given Lasix yesterday, but was still fluid positive. Will increase Lasix dosing today with a goal of -500-1 L. Patient remains on heparin drip. Patient may benefit from a lower extremity Doppler tomorrow if not significantly improved. Continue to wean oxygen as tolerated. Encourage incentive spirometer and activity as tolerated. 2. Acute right hip fracture status post mechanical fall postop day #2 Orthopedic surgery is following. Patient able to tolerate surgical procedure well. Patient did have some drop in hemoglobin following surgery, but this is still well within acceptable levels. Wound does not appear abnormal to my inspection. Increase activity per orthopedic surgery. 3. Obesity/BPH/hypertension/advanced age Complicates care, management, recovery and prognosis. Code Visit Inpatient E&M: [id number] Subs Hosp L3
--- NOTE | 2018-01-14 08:11 | PCM.PN.BLA ---
Progress Note Subjective: Patient doing well. Very minimal hip pain. He complains of more right-sided knee pain. He does not feel like he is short of breath Objective: Vital signs appear stable. He remains neurovascularly intact. No calf pain is elicited. Gentle range of motion of the hip is pain-free. Lab work was reviewed. Patient did have a slight drop in hemoglobin however does not require transfusion. Dressings clean and dry Assessment: Postop day 2 right total hip arthroplasty for femoral neck fracture Acute blood loss anemia Plan: Mobilize with therapy. Anticoagulate per medicine. Pain control. From an orthopedic standpoint patient is doing well and will be discharged to home versus rehab per medicine
--- NOTE | 2018-01-14 08:22 | PCM.PN.HOSP ---
Patient Problems: Active and Suspected Problems (Last Updated 01/11/18 @ 18:02 by Jaspreet Gamez DO) Closed right hip fracture (Acute) Acute respiratory failure with hypoxia (Acute) Subjective: some pain in right knee. no shortness of breath. Vitals/I&O's: Vital Signs Temp Pulse Resp BP Pulse Ox 36.9 C 94 19 H 141/66 H 94 01/14/18 04:00 01/14/18 07:00 01/14/18 07:00 01/14/18 07:00 01/14/18 07:00 Oxygen Flow Rate (L/min) 7 Oxygen Delivery Method Nasal Cannula Weight: 100.1 kg Body Mass Index (BMI) 30.5 Intake and Output for Last 24 Hours 01/12/18 01/13/18 01/14/18 23:59 23:59 23:59 Intake Total 3730 / 3730 2921 / 2921 507 / 507 Output Total 1949 / 1949 1950 / 1949 425 / 425 Balance 1780 / 1780 971 / 971 82 / 82 General: Alert, Cooperative, No apparent distress HEENT: Atraumatic, Normocephalic Oral: Moist Mucosa, No Gingival or Mucosal Lesions/ Ulcerations Neck: No Nodes, Thyroid Normal Size and Texture Lungs: Clear to auscultation, No rhonchi, No wheeze, Diminished Cardiovascular: Regular rate, Regular Rhythm, Normal S1, Normal S2, No murmurs Abdomen: Bowel Sounds Present, Soft, Non Tender, Non-Distended, No Hepato-splenomegaly Extremities: No edema, No Calf Tenderness Skin: No rashes, No breakdown Musculoskeletal: No Muscle Wasting Neurological: Muscle tone normal, Sensory exam intact to light touch and pain Psych/Mental Status: Normal Affect, Appropriate Laboratory Results 01/13/18 08:40: PT 15.5 H, INR 1.2, APTT 33.7 01/13/18 16:20: APTT 56.0 H 01/13/18 22:15: APTT 71.1 H 01/14/18 04:30: WBC 9.1, RBC 4.49 L, Hgb 14.2, Hct 41.1, MCV 91.5, MCH 31.6, MCHC 34.5, RDW 13.8, RDW Differential 45.7 H, Plt Count 100 L, MPV 11.1 01/14/18 04:30: Sodium 140, Potassium 3.7, Chloride 102, Carbon Dioxide 29.0, Anion Gap 9, BUN 16, Creatinine 0.69 L, Estim Creat Clear Calc 68.94, Est GFR (MDRD) Af Amer 145, Est GFR (MDRD) Non-Af 120, BUN/Creatinine Ratio 23.2 H, Glucose 91, Calcium 7.9 L 01/14/18 04:30: APTT 45.0 H Current Medications Acetaminophen (Tylenol) 650 mg PO Q6H PRN PRN PRN Reason: Mild Pain (1-3)/Temp > 100.7 F Amlodipine Besylate (Norvasc) 10 mg PO DAILY [facility] Last Admin: 01/13/18 09:39 Dose: 10 mg Aspirin (Aspirin) 325 mg PO BIDCM [facility] Last Admin: 01/13/18 18:39 Dose: 325 mg Calcium Carbonate (Tums) 1,000 mg PO Q4H PRN PRN PRN Reason: INDIGESTION Last Admin: 01/12/18 18:09 Dose: 1,000 mg Clonidine (Catapres) 0.1 mg PO Q6H PRN PRN Reason: SBP > 180 Doxazosin Mesylate (Cardura) 8 mg PO QHS [facility] Last Admin: 01/13/18 22:04 Dose: 8 mg Ergocalciferol (Vitamin D) 50,000 unit PO Q7D [facility] Last Admin: 01/13/18 09:40 Dose: 50,000 unit Furosemide (Lasix) 20 mg IV Q8 [facility] Last Admin: 01/14/18 06:16 Dose: 20 mg Heparin Sodium (Porcine) (Heparin Na) 0 unit IV UD PRN PRN Reason: Protocol Last Admin: 01/14/18 05:40 Dose: 1,000 unit Sodium Chloride () 250 mls @ 15 mls/hr IV .[id number] PRN PRN Reason: SALINE FLUSH Heparin Sodium/Dextrose () 25,000 units in 250 mls @ 14 mls/hr IV .[id number] [facility]; As Directed PRN Reason: Protocol Last Admin: 01/14/18 04:23 Dose: 14 mls/hr Loperamide HCl (Imodium) 2 mg PO Q6H PRN PRN PRN Reason: Diarrhea Lorazepam (Ativan) 1 mg PO DAILY PRN PRN PRN Reason: ANXIETY Magnesium Hydroxide (Milk Of Magnesia) 30 ml PO DAILY PRN PRN PRN Reason: Constipation Morphine Sulfate () 2 - 4 mg IV Q4H PRN PRN PRN Reason: MOD-SEVERE PAIN (4-10/10) Morphine Sulfate () 2 - 4 mg IV Q4H PRN PRN PRN Reason: MOD-SEVERE PAIN (4-10/10) Last Admin: 01/11/18 21:55 Dose: 4 mg Morphine Sulfate (Ms Contin) 15 mg PO BID [facility] Last Admin: 01/13/18 22:04 Dose: 15 mg Nutritional Formula (Lactose Free) (Ensure Enlive) 120 ml PO 4X/DAY [facility] Ondansetron HCl (Zofran) 4 mg IV Q8H PRN PRN PRN Reason: NAUSEA Oxycodone HCl (Oxyir) 5 - 10 mg PO Q4H PRN PRN PRN Reason: MOD-SEVERE PAIN (4-10/10) Last Admin: 01/13/18 05:17 Dose: 5 mg Paroxetine HCl (Paxil) 10 mg PO DAILY [facility] Last Admin: 01/13/18 09:40 Dose: 10 mg Pravastatin Sodium (Pravachol) 20 mg PO QHS [facility] Last Admin: 01/13/18 22:04 Dose: 20 mg Promethazine HCl (Phenergan) 12.5 mg IM Q6H PRN PRN; Protocol PRN Reason: NAUSEA/VOMITING Senna/Docusate Sodium (Senokot-S, Amelie-Colace) 2 tablet PO BID [facility] Last Admin: 01/13/18 22:04 Dose: 2 tablet Sodium Chloride () 5 - 30 ml IV UD PRN PRN Reason: SALINE FLUSH Last Admin: 01/14/18 06:15 Dose: 20 ml Medical Necessity - Tobacco Use Smoking Status: Former smoker Tobacco Use: Cigarettes Assessment/Plan All Active Problems (Last Updated 01/11/18 @ 18:02 by Jaspreet Gamez DO) Closed right hip fracture (Acute) Acute respiratory failure with hypoxia (Acute) 1. Right hip fracture Due to mechanical fall Patient has a very good performance status and no active issues to prohibit him from undergoing surgery. s/p Right MERCED on 01/12 mgmt per ortho 2. Acute hypoxic respiratory failure likely on chronic respiratory failure. patient was 88-90% on initial presentation and was asymptomatic. increased O2 requirements since hospitalization concern is for PE (clot v fat--despite CTA being negative) + cor pulmonale + CHF. noted increased acute right heart strain on echo wean oxygen as tolerated continue lasix to facilitate diuresis (weight up to 101 from 98kg) 3. Right heart strain appeared acute on echo, thereby raising the spectre of PE (despite negative CTA) started on hep gtt will change hep gtt to NOAC check duplex 4. Hypertension improved Accelerated Continue with amlodipine Clonidine as needed for systolic blood pressure greater than 180 5. Polycythemia Unclear this is acute or chronic as there is no baseline labs to compare to suspect chronic d/t chronic resp failure 6. Acute blood loss anemia Hg 18 to now 14.2 no need for transfusion 7. DVT prophylaxis with SCDs, DC ASA as pt is already anticoagulated Code Visit Inpatient E&M: 99181 Subs Hosp L3
--- NOTE | 2018-01-14 08:34 | PN_ITS ---
Patient Problems: Active and Suspected Problems (Last Updated 01/11/18 @ 18:02 by Jaspreet Gamez DO ) Closed right hip fracture (Acute) Acute respiratory failure with hypoxia (Acute) Subjective: some pain in right knee. no shortness of breath. Vitals/I&O's: Vital Signs Temp Pulse Resp BP Pulse Ox 36.9 C 94 19 H 141/66 H 94 01/14/18 04:00 01/14/18 07:00 01/14/18 07:00 01/14/18 07:00 01/14/18 07:00 Oxygen Flow Rate (L/min) 7 Oxygen Delivery Method Nasal Cannula Weight: 100.1 kg Body Mass Index (BMI) 30.5 Intake and Output for Last 24 Hours 01/12/18 01/13/18 01/14/18 23:59 23:59 23:59 Intake Total 3730 / 3730 2921 / 2921 507 / 507 Output Total 1949 / 1949 1950 / 1949 425 / 425 Balance 1780 / 1780 971 / 971 82 / 82 General: Alert, Cooperative, No apparent distress HEENT: Atraumatic, Normocephalic Oral: Moist Mucosa, No Gingival or Mucosal Lesions/ Ulcerations Neck: No Nodes, Thyroid Normal Size and Texture Lungs: Clear to auscultation, No rhonchi, No wheeze, Diminished Cardiovascular: Regular rate, Regular Rhythm, Normal S1, Normal S2, No murmurs Abdomen: Bowel Sounds Present, Soft, Non Tender, Non-Distended, No Hepato- splenomegaly Extremities: No edema, No Calf Tenderness Skin: No rashes, No breakdown Musculoskeletal: No Muscle Wasting Neurological: Muscle tone normal, Sensory exam intact to light touch and pain Psych/Mental Status: Normal Affect, Appropriate Laboratory Results 01/13/18 08:40: PT 15.5 H, INR 1.2, APTT 33.7 01/13/18 16:20: APTT 56.0 H 01/13/18 22:15: APTT 71.1 H 01/14/18 04:30: WBC 9.1, RBC 4.49 L, Hgb 14.2, Hct 41.1, MCV 91.5, MCH 31.6, MCHC 34.5, RDW 13.8, RDW Differential 45.7 H, Plt Count 100 L, MPV 11.1 01/14/18 04:30: Sodium 140, Potassium 3.7, Chloride 102, Carbon Dioxide 29.0, Anion Gap 9, BUN 16, Creatinine 0.69 L, Estim Creat Clear Calc 68.94, Est GFR ( MDRD) Af Amer 145, Est GFR (MDRD) Non-Af 120, BUN/Creatinine Ratio 23.2 H, Glucose 91, Calcium 7.9 L 01/14/18 04:30: APTT 45.0 H Current Medications Acetaminophen (Tylenol) 650 mg PO Q6H PRN PRN PRN Reason: Mild Pain (1-3)/Temp > 100.7 F Amlodipine Besylate (Norvasc) 10 mg PO DAILY [facility] Last Admin: 01/13/18 09:39 Dose: 10 mg Aspirin (Aspirin) 325 mg PO BIDCM [facility] Last Admin: 01/13/18 18:39 Dose: 325 mg Calcium Carbonate (Tums) 1,000 mg PO Q4H PRN PRN PRN Reason: INDIGESTION Last Admin: 01/12/18 18:09 Dose: 1,000 mg Clonidine (Catapres) 0.1 mg PO Q6H PRN PRN Reason: SBP > 180 Doxazosin Mesylate (Cardura) 8 mg PO QHS [facility] Last Admin: 01/13/18 22:04 Dose: 8 mg Ergocalciferol (Vitamin D) 50,000 unit PO Q7D [facility] Last Admin: 01/13/18 09:40 Dose: 50,000 unit Furosemide (Lasix) 20 mg IV Q8 [facility] Last Admin: 01/14/18 06:16 Dose: 20 mg Heparin Sodium (Porcine) (Heparin Na) 0 unit IV UD PRN PRN Reason: Protocol Last Admin: 01/14/18 05:40 Dose: 1,000 unit Sodium Chloride () 250 mls @ 15 mls/hr IV .[id number] PRN PRN Reason: SALINE FLUSH Heparin Sodium/Dextrose () 25,000 units in 250 mls @ 14 mls/hr IV .[id number] [facility] ; As Directed PRN Reason: Protocol Last Admin: 01/14/18 04:23 Dose: 14 mls/hr Loperamide HCl (Imodium) 2 mg PO Q6H PRN PRN PRN Reason: Diarrhea Lorazepam (Ativan) 1 mg PO DAILY PRN PRN PRN Reason: ANXIETY Magnesium Hydroxide (Milk Of Magnesia) 30 ml PO DAILY PRN PRN PRN Reason: Constipation Morphine Sulfate () 2 - 4 mg IV Q4H PRN PRN PRN Reason: MOD-SEVERE PAIN (4-10/10) Morphine Sulfate () 2 - 4 mg IV Q4H PRN PRN PRN Reason: MOD-SEVERE PAIN (4-10/10) Last Admin: 01/11/18 21:55 Dose: 4 mg Morphine Sulfate (Ms Contin) 15 mg PO BID [facility] Last Admin: 01/13/18 22:04 Dose: 15 mg Nutritional Formula (Lactose Free) (Ensure Enlive) 120 ml PO 4X/DAY [facility] Ondansetron HCl (Zofran) 4 mg IV Q8H PRN PRN PRN Reason: NAUSEA Oxycodone HCl (Oxyir) 5 - 10 mg PO Q4H PRN PRN PRN Reason: MOD-SEVERE PAIN (4-10/10) Last Admin: 01/13/18 05:17 Dose: 5 mg Paroxetine HCl (Paxil) 10 mg PO DAILY [facility] Last Admin: 01/13/18 09:40 Dose: 10 mg Pravastatin Sodium (Pravachol) 20 mg PO QHS [facility] Last Admin: 01/13/18 22:04 Dose: 20 mg Promethazine HCl (Phenergan) 12.5 mg IM Q6H PRN PRN; Protocol PRN Reason: NAUSEA/VOMITING Senna/Docusate Sodium (Senokot-S, Amelie-Colace) 2 tablet PO BID [facility] Last Admin: 01/13/18 22:04 Dose: 2 tablet Sodium Chloride () 5 - 30 ml IV UD PRN PRN Reason: SALINE FLUSH Last Admin: 01/14/18 06:15 Dose: 20 ml Medical Necessity - Tobacco Use Smoking Status: Former smoker Tobacco Use: Cigarettes Assessment/Plan All Active Problems (Last Updated 01/11/18 @ 18:02 by Jaspreet Gamez DO) Closed right hip fracture (Acute) Acute respiratory failure with hypoxia (Acute) 1. Right hip fracture * Due to mechanical fall * Patient has a very good performance status and no active issues to prohibit him from undergoing surgery. * s/p Right MERCED on 01/12 * mgmt per ortho 2. Acute hypoxic respiratory failure * likely on chronic respiratory failure. patient was 88-90% on initial presentation and was asymptomatic. * increased O2 requirements since hospitalization * concern is for PE (clot v fat--despite CTA being negative) + cor pulmonale + CHF. * noted increased acute right heart strain on echo * wean oxygen as tolerated * continue lasix to facilitate diuresis (weight up to 101 from 98kg) 3. Right heart strain * appeared acute on echo, thereby raising the spectre of PE (despite negative CTA) * started on hep gtt * will change hep gtt to NOAC * check duplex 4. Hypertension * improved * Accelerated * Continue with amlodipine * Clonidine as needed for systolic blood pressure greater than 180 5. Polycythemia * Unclear this is acute or chronic as there is no baseline labs to compare to * suspect chronic d/t chronic resp failure 6. Acute blood loss anemia * Hg 18 to now 14.2 * no need for transfusion 7. DVT prophylaxis with SCDs, DC ASA as pt is already anticoagulated Code Visit Inpatient E&M: 32645 Subs Hosp L3
[2018-01-14] MEDS: morphine SR 15 MG Tablet PO ×2 (10:03→21:42)
[2018-01-14] MEDS: amLODIPine 10 MG Tablet PO (10:04)
[2018-01-14] MEDS: Rivaroxaban 15 MG Tablet PO (10:04)
[2018-01-14] MEDS: Senna/Docusate Sodium 1 Tablet 2 TABLET PO ×2 (10:04→21:42)
[2018-01-14] MEDS: PARoxetine 10 MG Tablet PO (10:05)
[2018-01-14] MEDS: Doxazosin 4 MG Tablet 8 MG PO (21:42)
[2018-01-14] MEDS: Pravastatin 20 MG Tablet PO (21:42)
[2018-01-15] VITALS (14 sets, daily range): BP systolic 116–138; BP diastolic 52–67; PULSE 64–89; RESP 16–20; TEMP 36.6–37.6; O2SAT 92–96
[2018-01-15 05:12] LABS: Anion Gap 9 (5-15); BUN 19 mg/dL (7-18); BUN/Creat Ratio 29.3 RATIO (10-20); Calcium,Total 8.1 mg/dL (8.5-10.1); Chloride 101 mmol/L (98-107); Creatinine, Serum 0.65 mg/dL (0.70-1.30); EST Glomerular Filtration Rate 129 mL/min (>60); Est Glom Filt Rate - Afr Amer 156 mL/min (>60); Estimated Creatinine Clearance 68.94 ml/min; Glucose 103 mg/dL (74-106); Potassium 3.4 mmol/L (3.5-5.1); Sodium Level 140 mmol/L (136-145)
[2018-01-15] MEDS: Furosemide 20 MG/2 ML VIAL IV ×3 (05:48→21:09)
--- NOTE | 2018-01-15 06:24 | PCM.PN.INT ---
Subjective: The patient was seen and examined at the bedside this morning. Events from the last 24 hours have been reviewed. The patient is currently afebrile, hemodynamically stable and maintaining appropriate oxygen saturations on 7 L/min via nasal cannula. The patient is currently overall net +1.2 L for the admission. He remains on scheduled IV Lasix 20 mg every 8 hours. Objective: The patient's most recent lab work, culture data and imaging studies have all been personally reviewed. Surface echocardiogram dated January 12 revealed stage I diastolic dysfunction with an ejection fraction of 75%. The RV was moderately dilated with mild to moderate global RV systolic dysfunction and evidence of severe pulmonary hypertension with a right ventricular systolic pressure estimated to be 60 mmHg. General: Alert, Oriented x3, Cooperative, No apparent distress HEENT: Atraumatic, PERRLA, Normocephalic Oral: No Gingival or Mucosal Lesions/ Ulcerations Neck: Supple, No Nodes, Trachea Midline Lungs: No rhonchi, No wheeze, No rales, Diminished Cardiovascular: Regular rate, Regular Rhythm, Normal S1, Normal S2, No murmurs, No rub noted, No Gallop Abdomen: Bowel Sounds Present, Soft, Non Tender Extremities: No clubbing, No cyanosis, No edema Skin: No breakdown Musculoskeletal: No Tenderness to Palpation of Joints or Extremities, No Muscle Wasting Lymphatic: No Cervical, Supraclavicular, or Inguinal Adenopathy Neurological: Neuro grossly intact Psych/Mental Status: Alert and oriented to time, place, person, mood and affect Vital Signs Temp Pulse Resp BP Pulse Ox 98.5 F 66 17 123/52 H 93 01/15/18 04:00 01/15/18 04:00 01/15/18 04:00 01/15/18 04:00 01/15/18 04:00 Oxygen Flow Rate (L/min) 7 Oxygen Delivery Method Nasal Cannula Weight: 216 lb 11.43 oz Body Mass Index (BMI) 30.5 Intake and Output for Last 24 Hours 01/13/18 01/14/18 01/15/18 23:59 23:59 23:59 Intake Total 2921 / 2921 1627 / 1627 Output Total 1949 / 1949 2725 / 2725 375 / 375 Balance 971 / 971 -1098 / -1098 -375 / -375 Labs (Last 48 Hours) 01/13/18 01/13/18 01/13/18 05:40 08:40 16:20 WBC RBC Hgb Hct MCV MCH MCHC RDW RDW Differential Plt Count MPV PT 15.5 H INR 1.2 APTT 33.7 56.0 H Sodium Potassium Chloride Carbon Dioxide Anion Gap BUN Creatinine Estim Creat Clear Calc Est GFR (MDRD) Af Amer Est GFR (MDRD) Non-Af BUN/Creatinine Ratio Glucose Calcium Phosphorus 2.4 L Magnesium 1.7 01/13/18 01/14/18 01/14/18 22:15 04:30 04:30 WBC 9.1 RBC 4.49 L Hgb 14.2 Hct 41.1 MCV 91.5 MCH 31.6 MCHC 34.5 RDW 13.8 RDW Differential 45.7 H Plt Count 100 L MPV 11.1 PT INR APTT 71.1 H Sodium 140 Potassium 3.7 Chloride 102 Carbon Dioxide 29.0 Anion Gap 9 BUN 16 Creatinine 0.69 L Estim Creat Clear Calc 68.94 Est GFR (MDRD) Af Amer 145 Est GFR (MDRD) Non-Af 120 BUN/Creatinine Ratio 23.2 H Glucose 91 Calcium 7.9 L Phosphorus Magnesium 01/14/18 01/15/18 01/15/18 04:30 04:34 04:34 WBC Pending RBC Pending Hgb Pending Hct Pending MCV Pending MCH Pending MCHC Pending RDW Pending RDW Differential Pending Plt Count Pending MPV PT INR APTT 45.0 H Sodium 140 Potassium 3.4 L Chloride 101 Carbon Dioxide 30.0 Anion Gap 9 BUN 19 H Creatinine 0.65 L Estim Creat Clear Calc 68.94 Est GFR (MDRD) Af Amer 156 Est GFR (MDRD) Non-Af 129 BUN/Creatinine Ratio 29.3 H Glucose 103 Calcium 8.1 L Phosphorus Magnesium Clinical Impression(s) from Imaging Studies Hip/Pelvis X-Ray 01/11/18 14:57 IMPRESSION: Right proximal femoral subcapital acute fracture as described. Fairly severe degenerative left hip as described. Electronically Signed: William Jacques, at 16:19 EDT Tel , Service support , Chest X-Ray 01/11/18 21:00 IMPRESSION: Diffuse pulmonary interstitial prominence. Electronically Signed: Javier Granger DO at 22:00 EDT Tel [phone], Service support , Chest CTA 01/12/18 12:27 IMPRESSION: Study limited by motion. No central or proximal segmental pulmonary embolus. No evidence of thoracic aortic aneurysm or dissection. Small bilateral pleural effusions overlying atelectasis. Mild pulmonary vascular congestion. Mediastinal lymphadenopathy. Coronary artery disease. Electronically Signed: Jabari Renetta, at 16:00 EDT Tel , Service support , Hip X-Ray 01/12/18 13:18 IMPRESSION: Status post right hip arthroplasty with intact hardware in satisfactory alignment. Electronically Signed: Jabari Renetta, at 17:12 EDT Tel , Service support , Medical Necessity - Tobacco Use Smoking Status: Former smoker Tobacco Use: Cigarettes Assessment/Plan All Active Problems (Last Updated 01/11/18 @ 18:02 by Jaspreet Gamez DO) Closed right hip fracture (Acute) Acute respiratory failure with hypoxia (Acute) RECOMMENDATIONS: 1. Wean supplemental oxygen to maintain saturations at or above 88%. 2. Potassium repletion as ordered. 3. Continue diuretic regimen. 4. Recommend continuing Xarelto as ordered. Will obtain lower extremity Dopplers. 5. A secondary workup for the patient's pulmonary hypertension needs to be undertaken, on an outpatient basis. 6. Close outpatient pulmonary follow-up is warranted. 7. Encourage incentive spirometer use and mobilize patient as tolerated. IMPRESSIONS: 1. Acute hypoxemic respiratory failure likely secondary to cor pulmonale/heart failure with preserved ejection fraction/severe pulmonary hypertension The patient follows with Dr. Groves of [facility] on an outpatient basis. He has a smoking history that includes 2 packs per day ?30 years, having quit completely in 1998. Pulmonary function testing was completed in September 2017 with spirometry revealing no obstruction. The patient's FVC was reduced suggesting potential restriction. However, lung volumes are within normal limits. There was no significant bronchodilator response. The patient's diffusing capacity was normal. I suspect that the patient has been experiencing hypoxic events, even prior to his admission to the hospital. Although his CTA chest was nondiagnostic for the presence of a pulmonary embolism, there is still significant clinical concern, given his echocardiogram findings of RV dilation and dysfunction, along with significantly elevated right ventricular systolic pressures. Given the patient's acute right hip fracture, there is always concern for potential fat embolism. Accordingly, the patient has been diuresed and maintained on oral anticoagulation therapy. This will be continued. Recommend continuing to wean supplemental oxygen to maintain saturations at or above 88%. Will obtain lower extremity Dopplers today. 2. Acute right hip fracture status post mechanical fall, now postop day #3 status post total hip arthroplasty Continue pain control per hospitalist. Continue work with physical therapy. 3. Obesity/BPH/hypertension/advanced age Complicates care, management, recovery and prognosis. Okay to continue baseline antihypertensive regimen. Continue work with physical therapy. This note was generated with [employer] dictation software. It may contain incorrect words, spelling, and punctuation that were not noted in checking the note before signing. Code Visit Inpatient E&M: 65104 Subs Hosp L3
[2018-01-15 06:42] LABS: Hematocrit 41.6 % (40-54); Hemoglobin 14.2 g/dl (13.0-16.5); Mean Corp Hgb Conc 34.1 g/gl (32-36); Mean Corpuscular Hgb 31.1 pg (27.0-32.0); Mean Corpuscular Volume 91.2 fL (80-94); Mean Platelet Vol. 11.1 fl (6.2-12.0); Platelet Count 112 K/mm3 (150-450); RBC Distribution Width CV 13.8 % (11.6-14.6); RBC Distribution Width SD 45.6 fl (35.1-43.9); Red Blood Count 4.56 M/mm3 (4.6-6.2); Scan Indicated on CBC? Y/N NO; White Blood Count 8.7 K/mm3 (4.4-11.0)
[2018-01-15] MEDS: Magnesium Hydroxide 30 ML UDC PO (07:00)
--- NOTE | 2018-01-15 08:04 | PCM.PN.HOSP ---
Patient Problems: Active and Suspected Problems (Last Updated 01/11/18 @ 18:02 by Jaspreet Gamez DO) Closed right hip fracture (Acute) Acute respiratory failure with hypoxia (Acute) Subjective: Constipation x2 days. No shortness of breath. Vitals/I&O's: Vital Signs Temp Pulse Resp BP Pulse Ox 36.9 C 81 19 H 128/56 H 92 01/15/18 07:39 01/15/18 07:49 01/15/18 07:39 01/15/18 07:39 01/15/18 07:39 Oxygen Flow Rate (L/min) 7 Oxygen Delivery Method Nasal Cannula Weight: 98.3 kg Body Mass Index (BMI) 30.5 Intake and Output for Last 24 Hours 01/13/18 01/14/18 01/15/18 23:59 23:59 23:59 Intake Total 2921 / 2921 1627 / 1627 Output Total 1950 / 1949 2725 / 2725 375 / 375 Balance 971 / 971 -1098 / -1098 -375 / -375 General: Alert, No apparent distress HEENT: Atraumatic, Normocephalic Neck: No Nodes, Thyroid Normal Size and Texture Lungs: Clear to auscultation, No rhonchi, No wheeze, Diminished Cardiovascular: Regular rate, Regular Rhythm, Normal S1, Normal S2, No murmurs Abdomen: Bowel Sounds Present, Soft, Non Tender, Non-Distended Extremities: No edema, No Calf Tenderness Skin: No rashes, No breakdown Laboratory Results 01/15/18 04:34: WBC 8.7, RBC 4.56 L, Hgb 14.2, Hct 41.6, MCV 91.2, MCH 31.1, MCHC 34.1, RDW 13.8, RDW Differential 45.6 H, Plt Count 112 L, MPV 11.1 01/15/18 04:34: Sodium 140, Potassium 3.4 L, Chloride 101, Carbon Dioxide 30.0, Anion Gap 9, BUN 19 H, Creatinine 0.65 L, Estim Creat Clear Calc 68.94, Est GFR (MDRD) Af Amer 156, Est GFR (MDRD) Non-Af 129, BUN/Creatinine Ratio 29.3 H, Glucose 103, Calcium 8.1 L Current Medications Acetaminophen (Tylenol) 650 mg PO Q6H PRN PRN PRN Reason: Mild Pain (1-3)/Temp > 100.7 F Amlodipine Besylate (Norvasc) 10 mg PO DAILY [facility] Last Admin: 01/14/18 10:04 Dose: 10 mg Calcium Carbonate (Tums) 1,000 mg PO Q4H PRN PRN PRN Reason: INDIGESTION Last Admin: 01/12/18 18:09 Dose: 1,000 mg Clonidine (Catapres) 0.1 mg PO Q6H PRN PRN Reason: SBP > 180 Doxazosin Mesylate (Cardura) 8 mg PO QHS [facility] Last Admin: 01/14/18 21:42 Dose: 8 mg Ergocalciferol (Vitamin D) 50,000 unit PO Q7D [facility] Last Admin: 01/13/18 09:40 Dose: 50,000 unit Furosemide (Lasix) 20 mg IV Q8 [facility] Last Admin: 01/15/18 05:48 Dose: 20 mg Loperamide HCl (Imodium) 2 mg PO Q6H PRN PRN PRN Reason: Diarrhea Lorazepam (Ativan) 1 mg PO DAILY PRN PRN PRN Reason: ANXIETY Magnesium Hydroxide (Milk Of Magnesia) 30 ml PO DAILY PRN PRN PRN Reason: Constipation Last Admin: 01/15/18 07:00 Dose: 30 ml Morphine Sulfate (Ms Contin) 15 mg PO BID [facility] Last Admin: 01/14/18 21:42 Dose: 15 mg Nutritional Formula (Lactose Free) (Ensure Enlive) 120 ml PO 4X/DAY [facility] Last Admin: 01/14/18 21:46 Dose: 120 ml Ondansetron HCl (Zofran) 4 mg IV Q8H PRN PRN PRN Reason: NAUSEA Oxycodone HCl (Oxyir) 5 - 10 mg PO Q4H PRN PRN PRN Reason: MOD-SEVERE PAIN (4-10/10) Last Admin: 01/13/18 05:17 Dose: 5 mg Paroxetine HCl (Paxil) 10 mg PO DAILY [facility] Last Admin: 01/14/18 10:05 Dose: 10 mg Pravastatin Sodium (Pravachol) 20 mg PO QHS [facility] Last Admin: 01/14/18 21:42 Dose: 20 mg Promethazine HCl (Phenergan) 12.5 mg IM Q6H PRN PRN; Protocol PRN Reason: NAUSEA/VOMITING [facility] Admin: 01/14/18 17:56 Dose: Not Given Senna/Docusate Sodium (Senokot-S, Amelie-Colace) 2 tablet PO BID [facility] Last Admin: 01/14/18 21:42 Dose: 2 tablet Sodium Chloride () 5 - 30 ml IV UD PRN PRN Reason: SALINE FLUSH Last Admin: 01/14/18 21:47 Dose: 30 ml Medical Necessity - Tobacco Use Smoking Status: Former smoker Tobacco Use: Cigarettes Assessment/Plan All Active Problems (Last Updated 01/11/18 @ 18:02 by Jaspreet Gamez, DO) Closed right hip fracture (Acute) Acute respiratory failure with hypoxia (Acute) 1. Right hip fracture Due to mechanical fall Patient has a very good performance status and no active issues to prohibit him from undergoing surgery. s/p Right MERCED on 01/12 mgmt per ortho 2. Acute hypoxic respiratory failure likely on chronic respiratory failure. patient was 88-90% on initial presentation and was asymptomatic. increased O2 requirements since hospitalization concern is for PE (clot v fat--despite CTA being negative) + cor pulmonale + CHF. noted increased acute right heart strain on echo wean oxygen as tolerated continue lasix to facilitate diuresis (weight up to 101 from 98kg) keep sats greater than or equal to 88%. 3. Right heart strain appeared acute on echo, thereby raising the spectre of PE (despite negative CTA) started on hep gtt will change hep gtt to NOAC check duplex 4. Hypertension improved Accelerated Continue with amlodipine Clonidine as needed for systolic blood pressure greater than 180 5. Polycythemia Unclear this is acute or chronic as there is no baseline labs to compare to suspect chronic d/t chronic resp failure 6. Acute blood loss anemia Hg 18 to now 14.2 no need for transfusion 7. DVT prophylaxis with SCDs, DC ASA as pt is already anticoagulated 8. Hematuria resolved. likely secondary to Xarelto and lima catheter. 9. Disposition to SNF pending insurance Code Visit Inpatient E&M: 60137 Subs Hosp L2
[2018-01-15] MEDS: Senna/Docusate Sodium 1 Tablet 2 TABLET PO ×2 (08:41→21:10)
[2018-01-15] MEDS: Rivaroxaban 15 MG Tablet PO ×2 (08:41→17:05)
[2018-01-15] MEDS: morphine SR 15 MG Tablet PO (08:44)
[2018-01-15] MEDS: amLODIPine 10 MG Tablet PO (08:45)
[2018-01-15] MEDS: PARoxetine 10 MG Tablet PO (09:12)
--- NOTE | 2018-01-15 11:53 | CASEMGMT ---
MELANIE spoke with Kaitlyn on post acute referral. They would have a bed for patient in the rehab unit and in TCU. MELANIE spoke with patient and he thought he was going home and would go back and forth for therapy. He said SW should probably talk with his . MELANIE spoke with patient's via phone and she was hoping he could go to TCU. MELANIE told her about the rehab unit as well. MELANIE told her it is possible he could get denied. She said she would like to try and if he does get denied then she will take him home. MELANIE spoke with Kaitlyn and she will start the pre-cert. Plan: rehab unit vs TCU. Tegan DUNLAP MSW
[2018-01-15] MEDS: Pravastatin 20 MG Tablet PO (21:09)
[2018-01-15] MEDS: 0.9% NaCl Peripheral Flush Adult/Peds IV (21:10)
[2018-01-15] MEDS: Doxazosin 4 MG Tablet 8 MG PO (21:10)
[2018-01-16] VITALS (14 sets, daily range): BP systolic 119–138; BP diastolic 53–67; PULSE 77–85; RESP 16; TEMP 36.7–37.4; O2SAT 92–96
[2018-01-16] MEDS: Furosemide 20 MG/2 ML VIAL IV ×3 (05:11→21:10)
[2018-01-16] MEDS: 0.9% NaCl Peripheral Flush Adult/Peds IV ×3 (05:11→21:10)
--- NOTE | 2018-01-16 06:32 | PCM.PROGNOTE ---
Patient Problems: Active and Suspected Problems (Last Updated 01/11/18 @ 18:02 by Jaspreet Gamez DO) Closed right hip fracture (Acute) Acute respiratory failure with hypoxia (Acute) Subjective: The patient was seen and examined at the bedside this morning. Events from the last 24 hours have been reviewed. The patient is currently afebrile, hemodynamically stable and maintaining appropriate oxygen saturations on 4 L/min via nasal cannula. The patient is currently sitting in his bedside recliner and working with therapy. He reports overall improvement in his breathing quality. He remains on scheduled IV Lasix with stable renal function. He believes that he is tentatively scheduled to be transferred to rehab today. Objective: The patient's most recent lab work, culture data and imaging studies have all been personally reviewed. Surface echocardiogram dated January 12 revealed stage I diastolic dysfunction with an ejection fraction of 75%. The RV was moderately dilated with mild to moderate global RV systolic dysfunction and evidence of severe pulmonary hypertension with a right ventricular systolic pressure estimated to be 60 mmHg. Lower extremity Dopplers completed on January 15 were negative for the presence of DVT. - Physical Exam General: Alert, Oriented x3, Cooperative, No apparent distress HEENT: Atraumatic, PERRLA, Normocephalic Oral: No Gingival or Mucosal Lesions/ Ulcerations Neck: Supple, No Nodes, Trachea Midline Lungs: No rhonchi, No wheeze, No rales, Diminished Cardiovascular: Regular rate, Regular Rhythm, Normal S1, Normal S2, No murmurs, No rub noted, No Gallop Abdomen: Bowel Sounds Present, Soft, Non Tender, Non-Distended Extremities: No cyanosis, No edema, Clubbing Skin: No breakdown Musculoskeletal: No Tenderness to Palpation of Joints or Extremities Lymphatic: No Cervical, Supraclavicular, or Inguinal Adenopathy Neurological: Neuro grossly intact Psych/Mental Status: Alert and oriented to time, place, person, mood and affect Vital Signs Temp Pulse Resp BP Pulse Ox 98.9 F 80 16 138/65 H 92 01/16/18 05:05 01/16/18 05:05 01/16/18 05:05 01/16/18 05:05 01/16/18 05:05 Oxygen Flow Rate (L/min) 4 Oxygen Delivery Method Nasal Cannula Weight: 217 lb 9.54 oz Body Mass Index (BMI) 30.5 Intake and Output for Last 24 Hours 01/14/18 01/15/18 01/16/18 23:59 23:59 23:59 Intake Total 1627 / 1627 960 / 960 Output Total 2725 / 2725 1550 / 1550 Balance -1098 / -1098 -590 / -590 Laboratory Tests Past 24 Hrs 01/15/18 04:34 WBC 8.7 RBC 4.56 L Hgb 14.2 Hct 41.6 MCV 91.2 MCH 31.1 MCHC 34.1 RDW 13.8 RDW Differential 45.6 H Plt Count 112 L MPV 11.1 Labs (Last 48 Hours) 01/15/18 01/15/18 04:34 04:34 WBC 8.7 RBC 4.56 L Hgb 14.2 Hct 41.6 MCV 91.2 MCH 31.1 MCHC 34.1 RDW 13.8 RDW Differential 45.6 H Plt Count 112 L MPV 11.1 Sodium 140 Potassium 3.4 L Chloride 101 Carbon Dioxide 30.0 Anion Gap 9 BUN 19 H Creatinine 0.65 L Estim Creat Clear Calc 68.94 Est GFR (MDRD) Af Amer 156 Est GFR (MDRD) Non-Af 129 BUN/Creatinine Ratio 29.3 H Glucose 103 Calcium 8.1 L Clinical Impression(s) from Imaging Studies Hip/Pelvis X-Ray 01/11/18 14:57 IMPRESSION: Right proximal femoral subcapital acute fracture as described. Fairly severe degenerative left hip as described. Electronically Signed: William Jacques, at 16:19 EDT Tel , Service support , Chest X-Ray 01/11/18 21:00 IMPRESSION: Diffuse pulmonary interstitial prominence. Electronically Signed: Javier Granger DO at 22:00 EDT Tel [phone], Service support , Chest CTA 01/12/18 12:27 IMPRESSION: Study limited by motion. No central or proximal segmental pulmonary embolus. No evidence of thoracic aortic aneurysm or dissection. Small bilateral pleural effusions overlying atelectasis. Mild pulmonary vascular congestion. Mediastinal lymphadenopathy. Coronary artery disease. Electronically Signed: Jabari Jackson, at 16:00 EDT Tel , Service support , Hip X-Ray 01/12/18 13:18 IMPRESSION: Status post right hip arthroplasty with intact hardware in satisfactory alignment. Electronically Signed: Jabari Jackson, at 17:12 EDT Tel , Service support , Medical Necessity - Tobacco Use Smoking Status: Former smoker Tobacco Use: Cigarettes Assessment/Plan All Active Problems (Last Updated 01/11/18 @ 18:02 by Jaspreet Gamez DO) Closed right hip fracture (Acute) Acute respiratory failure with hypoxia (Acute) RECOMMENDATIONS: 1. Wean supplemental oxygen to maintain saturations at or above 88%. 2. Recheck BMP this morning given ongoing diuresis and hypokalemia noted yesterday. 3. Transition to p.o. Lasix regimen today. 4. Recommend continuing Xarelto as ordered. 5. A secondary workup for the patient's pulmonary hypertension needs to be undertaken, on an outpatient basis. 6. Close outpatient pulmonary follow-up is warranted. The patient currently follows with Dr. Anderson at [facility]. 7. Encourage incentive spirometer use and mobilize patient as tolerated. IMPRESSIONS: 1. Acute hypoxemic respiratory failure likely secondary to cor pulmonale/heart failure with preserved ejection fraction/severe pulmonary hypertension The patient follows with Dr. Anderson of [facility] on an outpatient basis. He has a smoking history that includes 2 packs per day ?30 years, having quit completely in 1998. Pulmonary function testing was completed in September 2017 with spirometry revealing no obstruction. The patient's FVC was reduced suggesting potential restriction. However, lung volumes were within normal limits. There was no significant bronchodilator response. The patient's diffusing capacity was normal. I suspect that the patient has been experiencing hypoxic events, even prior to his admission to the hospital. Although his CTA chest was nondiagnostic for the presence of a pulmonary embolism, there is still significant clinical concern, given his echocardiogram findings of RV dilation and dysfunction, along with significantly elevated right ventricular systolic pressures. Given the patient's acute right hip fracture, there is always concern for potential fat embolism. Accordingly, the patient has been diuresed and maintained on oral anticoagulation therapy. His lower extremity Dopplers were negative. Recommend continuing oral anticoagulation for 3-6 months, unless contraindicated. Recommend continuing to wean supplemental oxygen to maintain saturations at or above 88%. 2. Acute right hip fracture status post mechanical fall, now postop day #3 status post total hip arthroplasty Continue pain control per hospitalist. Continue work with physical therapy. 3. Obesity/BPH/hypertension/advanced age Complicates care, management, recovery and prognosis. Okay to continue baseline antihypertensive regimen. Continue work with physical therapy. This note was generated with [employer] dictation software. It may contain incorrect words, spelling, and punctuation that were not noted in checking the note before signing. Code Visit Inpatient E&M: 76151 Subs Hosp L2
[2018-01-16 07:08] LABS: Anion Gap 6 (5-15); BUN 19 mg/dL (7-18); BUN/Creat Ratio 26.6 RATIO (10-20); Calcium,Total 8.4 mg/dL (8.5-10.1); Chloride 99 mmol/L (98-107); Creatinine, Serum 0.72 mg/dL (0.70-1.30); EST Glomerular Filtration Rate 115 mL/min (>60); Est Glom Filt Rate - Afr Amer 139 mL/min (>60); Estimated Creatinine Clearance 68.94 ml/min; Glucose 105 mg/dL (74-106); Potassium 3.5 mmol/L (3.5-5.1); Sodium Level 137 mmol/L (136-145)
[2018-01-16] MEDS: Rivaroxaban 15 MG Tablet PO ×2 (07:53→17:24)
[2018-01-16] MEDS: PARoxetine 10 MG Tablet PO (09:25)
[2018-01-16] MEDS: amLODIPine 10 MG Tablet PO (09:25)
--- NOTE | 2018-01-16 12:03 | PCM.PN.HOSP ---
Patient Problems: Active and Suspected Problems (Last Updated 01/11/18 @ 18:02 by Jaspreet Gamez DO) Closed right hip fracture (Acute) Acute respiratory failure with hypoxia (Acute) Subjective: Feels good. No new complaints. Vitals/I&O's: Vital Signs Temp Pulse Resp BP Pulse Ox 37.4 C H 85 16 119/54 L 92 01/16/18 09:25 01/16/18 10:40 01/16/18 09:25 01/16/18 09:25 01/16/18 09:25 Oxygen Flow Rate (L/min) 2 Oxygen Delivery Method Nasal Cannula Weight: 98.7 kg Body Mass Index (BMI) 30.5 Intake and Output for Last 24 Hours 01/14/18 01/15/18 01/16/18 23:59 23:59 23:59 Intake Total 1627 / 1627 960 / 960 Output Total 2725 / 2725 1550 / 1550 Balance -1098 / -1098 -590 / -590 General: Alert, No apparent distress, - - up in chair. no resp distress. afebrile. no conversational dyspnea HEENT: Atraumatic, Normocephalic Oral: Moist Mucosa, No Gingival or Mucosal Lesions/ Ulcerations Neck: No Nodes, Thyroid Normal Size and Texture Lungs: Clear to auscultation, No rhonchi, No wheeze, Diminished Cardiovascular: Regular rate, Regular Rhythm, Normal S1, Normal S2, No murmurs Abdomen: Bowel Sounds Present, Soft, Non Tender, Non-Distended, No Hepato-splenomegaly Laboratory Results 01/16/18 06:45: Sodium 137, Potassium 3.5, Chloride 99, Carbon Dioxide 32.0, Anion Gap 6, BUN 19 H, Creatinine 0.72, Estim Creat Clear Calc 68.94, Est GFR (MDRD) Af Amer 139, Est GFR (MDRD) Non-Af 115, BUN/Creatinine Ratio 26.6 H, Glucose 105, Calcium 8.4 L Current Medications Acetaminophen (Tylenol) 650 mg PO Q6H PRN PRN PRN Reason: Mild Pain (1-3)/Temp > 100.7 F Amlodipine Besylate (Norvasc) 10 mg PO DAILY [facility] Last Admin: 01/16/18 09:25 Dose: 10 mg Calcium Carbonate (Tums) 1,000 mg PO Q4H PRN PRN PRN Reason: INDIGESTION Last Admin: 01/12/18 18:09 Dose: 1,000 mg Clonidine (Catapres) 0.1 mg PO Q6H PRN PRN Reason: SBP > 180 Doxazosin Mesylate (Cardura) 8 mg PO QHS [facility] Last Admin: 01/15/18 21:10 Dose: 8 mg Ergocalciferol (Vitamin D) 50,000 unit PO Q7D COUNT [facility] Last Admin: 01/13/18 09:40 Dose: 50,000 unit Furosemide (Lasix) 20 mg IV Q8 [facility] Last Admin: 01/16/18 05:11 Dose: 20 mg Loperamide HCl (Imodium) 2 mg PO Q6H PRN PRN PRN Reason: Diarrhea Lorazepam (Ativan) 1 mg PO DAILY PRN PRN PRN Reason: ANXIETY Magnesium Hydroxide (Milk Of Magnesia) 30 ml PO DAILY PRN PRN PRN Reason: Constipation Last Admin: 01/15/18 07:00 Dose: 30 ml Morphine Sulfate (Ms Contin) 15 mg PO BID [facility] Last Admin: 01/16/18 09:25 Dose: Not Given Nutritional Formula (Lactose Free) (Ensure Enlive) 120 ml PO 4X/DAY COUNT [facility]CLUD[facility] Last Admin: 01/16/18 10:00 Dose: 120 ml Ondansetron HCl (Zofran) 4 mg IV Q8H PRN PRN PRN Reason: NAUSEA Oxycodone HCl (Oxyir) 5 - 10 mg PO Q4H PRN PRN PRN Reason: MOD-SEVERE PAIN (4-10/10) Last Admin: 01/13/18 05:17 Dose: 5 mg Paroxetine HCl (Paxil) 10 mg PO DAILY [facility] Last Admin: 01/16/18 09:25 Dose: 10 mg Pravastatin Sodium (Pravachol) 20 mg PO QHS COUNT [facility]CLUD[facility] Last Admin: 01/15/18 21:09 Dose: 20 mg Promethazine HCl (Phenergan) 12.5 mg IM Q6H PRN PRN; Protocol PRN Reason: NAUSEA/VOMITING [facility] Last Admin: 01/16/18 07:53 Dose: 15 mg Senna/Docusate Sodium (Senokot-S, Amelie-Colace) 2 tablet PO BID [facility] Last Admin: 01/16/18 09:25 Dose: Not Given Sodium Chloride () 5 - 30 ml IV UD PRN PRN Reason: SALINE FLUSH Last Admin: 01/16/18 05:11 Dose: 10 ml Medical Necessity - Tobacco Use Smoking Status: Former smoker Tobacco Use: Cigarettes Assessment/Plan All Active Problems (Last Updated 01/11/18 @ 18:02 by Jaspreet Gamez, DO) Closed right hip fracture (Acute) Acute respiratory failure with hypoxia (Acute) 1. Right hip fracture Due to mechanical fall s/p Right MERCED on 01/12 follow up with ortho as outpt 2. Acute hypoxic respiratory failure likely on chronic respiratory failure. patient was 88-90% on initial presentation and was asymptomatic. increased O2 requirements since hospitalization concern is for PE (clot v fat--despite CTA being negative) + cor pulmonale + CHF. noted increased acute right heart strain on echo wean oxygen as tolerated continue lasix to facilitate diuresis (weight up to 101 from 98kg) keep sats greater than or equal to 88%. currently stable on 4 liters. follow up with Pulmonology as outpt 3. Right heart strain appeared acute on echo, thereby raising the spectre of PE (despite negative CTA) On Xarelto 15 BID, change to 20 after 3 weeks, then treat for a total of 6 months. Duplex negative 4. Hypertension improved Accelerated Continue with amlodipine Clonidine as needed for systolic blood pressure greater than 180 5. Polycythemia Unclear this is acute or chronic as there is no baseline labs to compare to suspect chronic d/t chronic resp failure 6. Acute blood loss anemia Hg 18 to now 14.2 no need for transfusion 7. DVT prophylaxis anticoagulated. 8. Hematuria resolved. likely secondary to Xarelto and lima catheter. 9. Disposition to [facility] pending insurance, hopefully today. Code Visit Inpatient E&M: 25391 Subs Hosp L2
--- NOTE | 2018-01-16 12:18 | PCM.TXEXTCAR ---
- Diet 01/13/18 09:52 Diet: Cardiac/Low Cholesterol Is pt able to select menu?: Yes - Routine Orders/Code Status Enema Type: [place] O2 Liters per Minute: 4 O2 Frequency: Continuous Keep PO Greater than or Equal to (%): 88 Routine Lab Work: CBC, BMP Code Status: Full Code - Wound(s) right elbow Wound Type: Surgical Incision rt hip Wound Type: Surgical Incision Dressing Change: Dry Sterile Dressing - Therapies Weight Bearing: Weight bearing as tolerated Extremity Affected:: Right Lower Physical Therapy: Eval and Treat Occupational Therapy: Eval and Treat - Problem/Diagnosis (1) Closed right hip fracture Status: Acute Current Visit: Yes - Allergies/Procedures Done in Hospital Allergies/Adverse Reactions: Allergies No Known Allergies Allergy (Verified 01/11/18 14:07) Procedures: 2-D Echocardiogram - Type of Care/Length of Stay Estimated LOS: Convalescent Care Less Than 30 days Type of Care Needed: Skilled Rehab Potential: Fair Prognosis: Fair - Additional Orders/Day of Discharge Day of Discharge: 01/16/18 - Dietary and Speech Recommendations Dietitian Recommendations/Changes: Will add ONS medpass d/t poor po intake and to help w/ fx healing - Follow Up Care Primary Care Physician: Brandon Cantor MD [Primary Care Provider] - Within 2 Weeks Please Follow Up With: [facility] When: call for appointment. Follow in 1-2 weeks. Please Follow Up With: Ian Barragan MD When: 2-4 weeks
--- NOTE | 2018-01-16 12:23 | PCM.DC.SUM ---
Discharge Date and Diagnosis - Problem List Patient Problems: Active and Suspected Problems (Last Updated 01/11/18 @ 18:02 by Jaspreet Gamez DO) Closed right hip fracture (Acute) Acute respiratory failure with hypoxia (Acute) Date of Admission: 01/11/18 Date of Discharge: 01/16/18 - Primary Discharge Diagnosis Active and Suspected Problems (Last Updated 01/11/18 @ 18:02 by Jaspreet Gamez DO) Closed right hip fracture (Acute) Acute respiratory failure with hypoxia (Acute) - Secondary Discharge Diagnosis Chronic Problems (Last Updated 01/11/18 @ 18:02 by Jaspreet Gamez DO) BPH (benign prostatic hyperplasia) (Chronic) Depression (Chronic) Hypercholesterolemia (Chronic) Hospital Course and Treatment Imaging Results: Clinical Impression(s) from Imaging Studies Hip/Pelvis X-Ray 01/11/18 14:57 IMPRESSION: Right proximal femoral subcapital acute fracture as described. Fairly severe degenerative left hip as described. Electronically Signed: William Jacques at 16:19 EDT Tel , Service support , Chest X-Ray 01/11/18 21:00 IMPRESSION: Diffuse pulmonary interstitial prominence. Electronically Signed: Javier Granger DO at 22:00 EDT Tel [phone], Service support , Chest CTA 01/12/18 12:27 IMPRESSION: Study limited by motion. No central or proximal segmental pulmonary embolus. No evidence of thoracic aortic aneurysm or dissection. Small bilateral pleural effusions overlying atelectasis. Mild pulmonary vascular congestion. Mediastinal lymphadenopathy. Coronary artery disease. Electronically Signed: Jabari Jackson, at 16:00 EDT Tel , Service support , Hip X-Ray 01/12/18 13:18 IMPRESSION: Status post right hip arthroplasty with intact hardware in satisfactory alignment. Electronically Signed: Jabari Jackson, at 17:12 EDT Tel , Service support , Robert Magana Giorgio Barragan Operations: total hip replacement Procedures: 2-D Echocardiogram Summary of Care Provided: The patient is a 72 year old M presents with a right hip pain after a mechanical fall. Patient tripped over the bed of his tractor. 1. Right hip fracture Due to mechanical fall s/p Right MERCED on 01/12 follow up with ortho as outpt 2. Acute hypoxic respiratory failure likely on chronic respiratory failure. patient was 88-90% on initial presentation and was asymptomatic. increased O2 requirements since hospitalization concern is for PE (clot v fat--despite CTA being negative) + cor pulmonale + CHF. noted increased acute right heart strain on echo wean oxygen as tolerated continue lasix to facilitate diuresis (weight up to 101 from 98kg) keep sats greater than or equal to 88%. currently stable on 4 liters. follow up with Pulmonology as outpt 3. Right heart strain appeared acute on echo, thereby raising the spectre of PE (despite negative CTA) On Xarelto 15 BID, change to 20 after 3 weeks, then treat for a total of 6 months. Duplex negative 4. Hypertension improved Accelerated Continue with amlodipine 5. Polycythemia Unclear this is acute or chronic as there is no baseline labs to compare to suspect chronic d/t chronic resp failure 6. Acute blood loss anemia Hg 18 to now 14.2 no need for transfusion 7. DVT prophylaxis anticoagulated. 8. Hematuria resolved. likely secondary to Xarelto and lima catheter. 9. Disposition to SNF pending insurance, hopefully today.[] Discharge Diet: Low fat/ Low Cholesterol Discharge Activity: Return to Normal Activity Call your doctor if your incision/area has: Continuous Slow Oozing, Sudden Increased Bleeding, Increased Pain/ Swelling Call your doctor if you observe: Fever of 101 or Higher, Shortness of breath Home Medications: Medications to take at Discharge Amlodipine Besylate [Norvasc] 10 mg PO DAILY 01/12/17 Loperamide [Imodium] 2 mg PO Q6H PRN PRN 01/12/17 Paroxetine [Paxil] 10 mg PO DAILY 01/12/17 Pravastatin [Pravachol] 20 mg PO QHS 01/12/17 Terazosin HCl 10 mg PO QHS 01/12/17 Acetaminophen [Tylenol Tablet] 650 mg PO Q6H PRN PRN tablet 01/16/18 Calcium Carbonate [Tums] 1,000 mg PO Q4H PRN PRN tablet 01/16/18 Cholecalciferol (VIT D3) [Vitamin D3] 2,000 unit PO DAILY #1 tablet 01/16/18 Ensure Enlive 120 ml PO 4X/DAY liquid 01/16/18 Ergocalciferol [Vitamin D] 50,000 unit PO Q7D capsule 01/16/18 Oxycodone [Oxyir] 5 mg PO Q6H PRN 3 Days #18 tab 01/16/18 Rivaroxaban [Xarelto] 15 mg PO BIDCM tablet 01/16/18 Rivaroxaban [Xarelto] 20 mg PO DAILY #1 tablet 01/16/18 Senna/Docusate Sodium [Senokot-S] 2 tablet PO BID tablet 01/16/18 Following Prescrptions Were Given to Patient: Cholecalciferol (VIT D3) [Vitamin D3] 2,000 unit PO DAILY #1 tablet Rivaroxaban [Xarelto] 20 mg PO DAILY #1 tablet Oxycodone [Oxyir] 5 mg PO Q6H PRN 3 Days #18 tab PRN Reason: Mod-Severe Pain (4-10/10) Primary Care Physician: Brandon Cantor MD [Primary Care Provider] - Within 2 Weeks Please Follow Up With: [facility] When: call for appointment. Follow in 1-2 weeks. Please Follow Up With: Ian Barragan MD When: 2-4 weeks Disposition: Residential facility Minutes spent on discharge:: 40 Patient Condition:: Good Medical Necessity - Tobacco Use Smoking Status: Former smoker Tobacco Use: Cigarettes Meaningful Use Info Meaningful Use Diagnoses (Choose all that apply): None applicable Code Visit Inpatient E&M: 11939 Disch Hosp
--- NOTE | 2018-01-16 12:26 | DS.PCM_ITS ---
Discharge Date and Diagnosis - Problem List Patient Problems: Active and Suspected Problems (Last Updated 01/11/18 @ 18:02 by Jaspreet Gamez DO ) Closed right hip fracture (Acute) Acute respiratory failure with hypoxia (Acute) Date of Admission: 01/11/18 Date of Discharge: 01/16/18 - Primary Discharge Diagnosis Active and Suspected Problems (Last Updated 01/11/18 @ 18:02 by Jaspreet Gamez DO ) Closed right hip fracture (Acute) Acute respiratory failure with hypoxia (Acute) - Secondary Discharge Diagnosis Chronic Problems (Last Updated 01/11/18 @ 18:02 by Jaspreet Gamez DO) BPH (benign prostatic hyperplasia) (Chronic) Depression (Chronic) Hypercholesterolemia (Chronic) Hospital Course and Treatment Imaging Results: Clinical Impression(s) from Imaging Studies Hip/Pelvis X-Ray 01/11/18 14:57 IMPRESSION: Right proximal femoral subcapital acute fracture as described. Fairly severe degenerative left hip as described. Electronically Signed: William Jacques at 16:19 EDT Tel , Service support , Chest X-Ray 01/11/18 21:00 IMPRESSION: Diffuse pulmonary interstitial prominence. Electronically Signed: Javier Granger DO at 22:00 EDT Tel [phone], Service support , Chest CTA 01/12/18 12:27 IMPRESSION: Study limited by motion. No central or proximal segmental pulmonary embolus. No evidence of thoracic aortic aneurysm or dissection. Small bilateral pleural effusions overlying atelectasis. Mild pulmonary vascular congestion. Mediastinal lymphadenopathy. Coronary artery disease. Electronically Signed: Jabari Jackson, at 16:00 EDT Tel , Service support , Hip X-Ray 01/12/18 13:18 IMPRESSION: Status post right hip arthroplasty with intact hardware in satisfactory alignment. Electronically Signed: Jabari Jackson, at 17:12 EDT Tel , Service support , Robert Magana Giorgio Barragan Operations: total hip replacement Procedures: 2-D Echocardiogram Summary of Care Provided: The patient is a 72 year old M presents with a right hip pain after a mechanical fall. Patient tripped over the bed of his tractor. 1. Right hip fracture * Due to mechanical fall * s/p Right MERCED on 01/12 * follow up with ortho as outpt 2. Acute hypoxic respiratory failure * likely on chronic respiratory failure. patient was 88-90% on initial presentation and was asymptomatic. * increased O2 requirements since hospitalization * concern is for PE (clot v fat--despite CTA being negative) + cor pulmonale + CHF. * noted increased acute right heart strain on echo * wean oxygen as tolerated * continue lasix to facilitate diuresis (weight up to 101 from 98kg) * keep sats greater than or equal to 88%. currently stable on 4 liters. * follow up with Pulmonology as outpt 3. Right heart strain * appeared acute on echo, thereby raising the spectre of PE (despite negative CTA) * On Xarelto 15 BID, change to 20 after 3 weeks, then treat for a total of 6 months. * Duplex negative 4. Hypertension * improved * Accelerated * Continue with amlodipine 5. Polycythemia * Unclear this is acute or chronic as there is no baseline labs to compare to * suspect chronic d/t chronic resp failure 6. Acute blood loss anemia * Hg 18 to now 14.2 * no need for transfusion 7. DVT prophylaxis anticoagulated. 8. Hematuria * resolved. likely secondary to Xarelto and lima catheter. 9. Disposition * to SNF pending insurance, hopefully today.[] Discharge Diet: Low fat/ Low Cholesterol Discharge Activity: Return to Normal Activity Call your doctor if your incision/area has: Continuous Slow Oozing, Sudden Increased Bleeding, Increased Pain/ Swelling Call your doctor if you observe: Fever of 101 or Higher, Shortness of breath Home Medications: Medications to take at Discharge Amlodipine Besylate [Norvasc] 10 mg PO DAILY 01/12/17 Loperamide [Imodium] 2 mg PO Q6H PRN PRN 01/12/17 Paroxetine [Paxil] 10 mg PO DAILY 01/12/17 Pravastatin [Pravachol] 20 mg PO QHS 01/12/17 Terazosin HCl 10 mg PO QHS 01/12/17 Acetaminophen [Tylenol Tablet] 650 mg PO Q6H PRN PRN tablet 01/16/18 Calcium Carbonate [Tums] 1,000 mg PO Q4H PRN PRN tablet 01/16/18 Cholecalciferol (VIT D3) [Vitamin D3] 2,000 unit PO DAILY #1 tablet 01/16/18 Ensure Enlive 120 ml PO 4X/DAY liquid 01/16/18 Ergocalciferol [Vitamin D] 50,000 unit PO Q7D capsule 01/16/18 Oxycodone [Oxyir] 5 mg PO Q6H PRN 3 Days #18 tab 01/16/18 Rivaroxaban [Xarelto] 15 mg PO BIDCM tablet 01/16/18 Rivaroxaban [Xarelto] 20 mg PO DAILY #1 tablet 01/16/18 Senna/Docusate Sodium [Senokot-S] 2 tablet PO BID tablet 01/16/18 Following Prescrptions Were Given to Patient: Cholecalciferol (VIT D3) [Vitamin D3] 2,000 unit PO DAILY #1 tablet Rivaroxaban [Xarelto] 20 mg PO DAILY #1 tablet Oxycodone [Oxyir] 5 mg PO Q6H PRN 3 Days #18 tab PRN Reason: Mod-Severe Pain (-03/14) Primary Care Physician: Brandon Cantor MD [Primary Care Provider] - Within 2 Weeks Please Follow Up With: [facility] When: call for appointment. Follow in 1-2 weeks. Please Follow Up With: Ian Barragan MD When: 2-4 weeks Disposition: [facility] facility Minutes spent on discharge:: 40 Patient Condition:: Good Medical Necessity - Tobacco Use Smoking Status: Former smoker Tobacco Use: Cigarettes Meaningful Use Info Meaningful Use Diagnoses (Choose all that apply): None applicable Code Visit Inpatient E&M: 10175 Disch Hosp
--- NOTE | 2018-01-16 14:56 | CASEMGMT ---
Patient was denied for rehab so [facility] is re-loading patient and asking for pre-cert for TCU. Plan: TCU pending insurance approval. Tegan DUNLAP MSW
[2018-01-16] MEDS: Pravastatin 20 MG Tablet PO (21:10)
[2018-01-16] MEDS: Senna/Docusate Sodium 1 Tablet 2 TABLET PO (21:11)
[2018-01-16] MEDS: Doxazosin 4 MG Tablet 8 MG PO (21:43)
[2018-01-17] VITALS (9 sets, daily range): BP systolic 130–160; BP diastolic 51–64; PULSE 75–92; RESP 15–18; TEMP 37.2–37.6; O2SAT 90–96
[2018-01-17] MEDS: 0.9% NaCl Peripheral Flush Adult/Peds IV ×2 (05:12→13:54)
[2018-01-17] MEDS: Furosemide 20 MG/2 ML VIAL IV ×2 (05:12→13:54)
--- NOTE | 2018-01-17 06:34 | PCM.PROGNOTE ---
Patient Problems: Active and Suspected Problems (Last Updated 01/11/18 @ 18:02 by Jaspreet Gamez DO) Closed right hip fracture (Acute) Acute respiratory failure with hypoxia (Acute) Subjective: The patient was seen and examined at the bedside this morning. Events from the last 24 hours have been reviewed. The patient is currently afebrile, hemodynamically stable and maintaining appropriate oxygen saturations on 2 L/min via nasal cannula. Creatinine remains stable. The patient was supposed to be discharged yesterday. However, his request for rehabilitation was denied so there is currently a pre-cert in process for the TCU. Objective: The patient's most recent lab work, culture data and imaging studies have all been personally reviewed. Surface echocardiogram dated January 12 revealed stage I diastolic dysfunction with an ejection fraction of 75%. The RV was moderately dilated with mild to moderate global RV systolic dysfunction and evidence of severe pulmonary hypertension with a right ventricular systolic pressure estimated to be 60 mmHg. Lower extremity Dopplers completed on January 15 were negative for the presence of DVT. - Physical Exam General: Alert, Cooperative, No apparent distress HEENT: Atraumatic, PERRLA, Normocephalic Oral: No Gingival or Mucosal Lesions/ Ulcerations Neck: Supple, No Nodes, Trachea Midline Lungs: No rhonchi, No wheeze, No rales, Diminished Cardiovascular: Regular rate, Regular Rhythm, Normal S1, Normal S2, No murmurs Abdomen: Bowel Sounds Present, Soft, Non Tender, Non-Distended Extremities: No cyanosis, No edema, Clubbing Skin: No breakdown Musculoskeletal: No Tenderness to Palpation of Joints or Extremities, No Muscle Wasting Lymphatic: No Cervical, Supraclavicular, or Inguinal Adenopathy Neurological: Neuro grossly intact Psych/Mental Status: Normal Affect, Appropriate Vital Signs Temp Pulse Resp BP Pulse Ox 99 F 82 18 150/59 H 94 01/17/18 03:06 01/17/18 03:06 01/17/18 03:06 01/17/18 03:06 01/17/18 03:06 Oxygen Flow Rate (L/min) 2 Oxygen Delivery Method Nasal Cannula Weight: 217 lb 3.2 oz Body Mass Index (BMI) 30.5 Intake and Output for Last 24 Hours 01/15/18 01/16/18 01/17/18 23:59 23:59 23:59 Intake Total 960 / 960 1350 / 1350 360 / 360 Output Total 1550 / 1550 970 / 970 Balance -590 / -590 1350 / 1350 -610 / -610 Laboratory Tests Past 24 Hrs 01/16/18 06:45 Sodium 137 Potassium 3.5 Chloride 99 Carbon Dioxide 32.0 Anion Gap 6 BUN 19 H Creatinine 0.72 Estim Creat Clear Calc 68.94 Est GFR (MDRD) Af Amer 139 Est GFR (MDRD) Non-Af 115 BUN/Creatinine Ratio 26.6 H Glucose 105 Calcium 8.4 L Clinical Impression(s) from Imaging Studies Hip/Pelvis X-Ray 01/11/18 14:57 IMPRESSION: Right proximal femoral subcapital acute fracture as described. Fairly severe degenerative left hip as described. Electronically Signed: William Jacques, at 16:19 EDT Tel , Service support , Chest X-Ray 01/11/18 21:00 IMPRESSION: Diffuse pulmonary interstitial prominence. Electronically Signed: Javier Granger DO at 22:00 EDT Tel [phone], Service support , Chest CTA 01/12/18 12:27 IMPRESSION: Study limited by motion. No central or proximal segmental pulmonary embolus. No evidence of thoracic aortic aneurysm or dissection. Small bilateral pleural effusions overlying atelectasis. Mild pulmonary vascular congestion. Mediastinal lymphadenopathy. Coronary artery disease. Electronically Signed: Jabari Jackson, at 16:00 EDT Tel , Service support , Hip X-Ray 01/12/18 13:18 IMPRESSION: Status post right hip arthroplasty with intact hardware in satisfactory alignment. Electronically Signed: Jabari Jackson, at 17:12 EDT Tel , Service support , Medical Necessity - Tobacco Use Smoking Status: Former smoker Tobacco Use: Cigarettes Assessment/Plan All Active Problems (Last Updated 01/11/18 @ 18:02 by YOBANY Davis Closed right hip fracture (Acute) Acute respiratory failure with hypoxia (Acute) RECOMMENDATIONS: 1. Wean supplemental oxygen to maintain saturations at or above 88%. 2. Transition to p.o. Lasix regimen. 3. Recommend continuing Xarelto as ordered. 4. A secondary workup for the patient's pulmonary hypertension needs to be undertaken, on an outpatient basis. 5. Close outpatient pulmonary follow-up is warranted. The patient currently follows with Dr. Anderson at [facility]. 6. Encourage incentive spirometer use and mobilize patient as tolerated. IMPRESSIONS: 1. Acute hypoxemic respiratory failure likely secondary to cor pulmonale/heart failure with preserved ejection fraction/severe pulmonary hypertension The patient follows with Dr. Anderson of [facility] on an outpatient basis. He has a smoking history that includes 2 packs per day ?30 years, having quit completely in 1998. Pulmonary function testing was completed in September 2017 with spirometry revealing no obstruction. The patient's FVC was reduced suggesting potential restriction. However, lung volumes were within normal limits. There was no significant bronchodilator response. The patient's diffusing capacity was normal. I suspect that the patient has been experiencing hypoxic events, even prior to his admission to the hospital. Although his CTA chest was nondiagnostic for the presence of a pulmonary embolism, there is still significant clinical concern, given his echocardiogram findings of RV dilation and dysfunction, along with significantly elevated right ventricular systolic pressures. Given the patient's acute right hip fracture, there is always concern for potential fat embolism. Accordingly, the patient has been diuresed and maintained on oral anticoagulation therapy. His lower extremity Dopplers were negative. Recommend continuing oral anticoagulation for 3-6 months, unless contraindicated. Recommend continuing to wean supplemental oxygen to maintain saturations at or above 88%. 2. Acute right hip fracture status post mechanical fall, now postop day #3 status post total hip arthroplasty Continue pain control per hospitalist. Continue work with physical therapy. 3. Obesity/BPH/hypertension/advanced age Complicates care, management, recovery and prognosis. Okay to continue baseline antihypertensive regimen. Continue work with physical therapy. This note was generated with [employer] software. It may contain incorrect words, spelling, and punctuation that were not noted in checking the note before signing. Code Visit Inpatient E&M: 29775 Subs Hosp L2
[2018-01-17] MEDS: Senna/Docusate Sodium 1 Tablet 2 TABLET PO (08:18)
[2018-01-17] MEDS: PARoxetine 10 MG Tablet PO (08:18)
[2018-01-17] MEDS: amLODIPine 10 MG Tablet PO (08:18)
[2018-01-17] MEDS: Rivaroxaban 15 MG Tablet PO ×2 (08:18→16:48)
--- NOTE | 2018-01-17 11:26 | NURSING ---
Called report to [facility] in Endo.
--- NOTE | 2018-01-17 14:42 | PCM.PN.HOSP ---
Patient Problems: Active and Suspected Problems (Last Updated 01/11/18 @ 18:02 by Jaspreet Gamez DO) Fall (Acute) Pulmonary embolism (Acute) Polycythemia (Acute) Subjective: Patient was seen and examined. Complains of itchy rash at the posterior thorax. Unclear if from the mat he was sleeping on. Denies any rash in any other place. Denies fever, chills, SOB. Vitals/I&O's: Vital Signs Temp Pulse Resp BP Pulse Ox 98.9 F 92 18 160/64 H 92 01/17/18 14:00 01/17/18 14:00 01/17/18 14:00 01/17/18 14:00 01/17/18 14:00 Oxygen Flow Rate (L/min) 2 Oxygen Delivery Method Room Air Weight: 98.52 kg Body Mass Index (BMI) 30.5 Intake and Output for Last 24 Hours 01/15/18 01/16/18 01/17/18 23:59 23:59 23:59 Intake Total 960 / 960 1350 / 1350 1220 / 1220 Output Total 1550 / 1550 1520 / 1520 Balance -590 / -590 1350 / 1350 -300 / -300 General: Alert, Oriented x3, Cooperative, No apparent distress HEENT: Atraumatic, PERRLA, EOMI, Normocephalic Neck: Supple, No JVD, Negative Carotid Bruits Lungs: Clear to auscultation, Normal air movement Cardiovascular: Regular rate, Regular Rhythm, Normal S1, Normal S2, No murmurs Abdomen: Bowel Sounds Present, Soft, Non Tender, Non-Distended, No Hepato-splenomegaly Extremities: No edema Skin: - - Erythematous papular rash Musculoskeletal: No Tenderness to Palpation of Joints or Extremities Neurological: Cranial nerves II-XII grossly intact Psych/Mental Status: Normal Affect, Appropriate Current Medications Acetaminophen (Tylenol) 650 mg PO Q6H PRN PRN PRN Reason: Mild Pain (1-3)/Temp > 100.7 F Amlodipine Besylate (Norvasc) 10 mg PO DAILY [facility] Last Admin: 01/17/18 08:18 Dose: 10 mg Calcium Carbonate (Tums) 1,000 mg PO Q4H PRN PRN PRN Reason: INDIGESTION Last Admin: 01/12/18 18:09 Dose: 1,000 mg Clonidine (Catapres) 0.1 mg PO Q6H PRN PRN Reason: SBP > 180 Doxazosin Mesylate (Cardura) 8 mg PO QHS [facility] Last Admin: 01/16/18 21:43 Dose: 8 mg Ergocalciferol (Vitamin D) 50,000 unit PO Q7D [facility] Last Admin: 01/13/18 09:40 Dose: 50,000 unit Furosemide (Lasix) 20 mg IV Q8 [facility] Last Admin: 01/17/18 13:54 Dose: 20 mg Loperamide HCl (Imodium) 2 mg PO Q6H PRN PRN PRN Reason: Diarrhea Lorazepam (Ativan) 1 mg PO DAILY PRN PRN PRN Reason: ANXIETY Magnesium Hydroxide (Milk Of Magnesia) 30 ml PO DAILY PRN PRN PRN Reason: Constipation Last Admin: 01/15/18 07:00 Dose: 30 ml Morphine Sulfate (Ms Contin) 15 mg PO BID [facility] Last Admin: 01/17/18 08:14 Dose: Not Given Nutritional Formula (Lactose Free) (Ensure Enlive) 120 ml PO 4X/DAY [facility] Last Admin: 01/17/18 13:53 Dose: 120 ml Ondansetron HCl (Zofran) 4 mg IV Q8H PRN PRN PRN Reason: NAUSEA Oxycodone HCl (Oxyir) 5 - 10 mg PO Q4H PRN PRN PRN Reason: MOD-SEVERE PAIN (4-10/10) Last Admin: 01/13/18 05:17 Dose: 5 mg Paroxetine HCl (Paxil) 10 mg PO DAILY [facility] Last Admin: 01/17/18 08:18 Dose: 10 mg Pravastatin Sodium (Pravachol) 20 mg PO QHS [facility] Last Admin: 01/16/18 21:10 Dose: 20 mg Promethazine HCl (Phenergan) 12.5 mg IM Q6H PRN PRN; Protocol PRN Reason: NAUSEA/VOMITING [facility] Last Admin: 01/17/18 08:18 Dose: 15 mg Senna/Docusate Sodium (Senokot-S, Amelie-Colace) 2 tablet PO BID [facility] Last Admin: 01/17/18 08:18 Dose: 2 tablet Sodium Chloride () 5 - 30 ml IV UD PRN PRN Reason: SALINE FLUSH Last Admin: 01/17/18 13:54 Dose: 10 ml Medical Necessity - Tobacco Use Smoking Status: Former smoker Tobacco Use: Cigarettes Assessment/Plan All Active Problems (Last Updated 01/11/18 @ 18:02 by Jaspreet Gamez, ) Closed right hip fracture (Acute) Acute respiratory failure with hypoxia (Acute) Fall (Acute) Pulmonary embolism (Acute) Polycythemia (Acute) 1. Right hip fracture s/p mechanical fall, s/p Right MERCED on 01/12, orthopedics follow-up in outpatient. 2. Acute on chronic hypoxic respiratory failure, resolved 3. Right heart strain, seen on echo, on Xarelto 15 BID, change to 20 after 3 weeks, then treat for a total of 6 months. 4. Hypertension, controlled, on amlodipine 5. Polycythemia, appears stable 6. Acute blood loss anemia, stable Hb 7. Hematuria, resolved 8. DVT prophylaxis anticoagulated. 9. Disposition - SNF pending insurance. Code Visit Inpatient E&M: 98604 Subs Hosp L2
[2018-01-17] MEDS: Hydrocortisone 2.5% Crm 1 APPLIC TOPICAL (17:20)
--- NOTE | 2018-01-17 17:20 | NURSING ---
Report called to TCU
== END 2018-01-17 17:40 | disposition skilled nursing facility (03) | DRG 469 ==
LOC: ED 17:01 → MS3 18:15 → ICU 01-12 10:24 → PCU 01-15 12:02
PROVIDERS: Internal Medicine Critical Care Medicine; Orthopaedic Surgery; Emergency Provider Emergency Medicine; Family Provider Internal Medicine; PCP Internal Medicine; Visit Provider Internal Medicine
PROC: 0SR904A Replacement of Right Hip Joint with Ceramic on Polyethylene Synthetic Substitute, Uncemented, Open Approach (ICD-10-PCS; CPT 27125; principal; 2018-01-12 07:15)
DX: S72.001A Fracture of unspecified part of neck of right femur, initial encounter for closed fracture (principal); J96.21 Acute and chronic respiratory failure with hypoxia; D62 Acute posthemorrhagic anemia; D75.1 Secondary polycythemia; W01.0XXA Fall on same level from slipping, tripping and stumbling without subsequent striking against object, initial encounter; Y92.015 Private garage of single-family (private) house as the place of occurrence of the external cause; E78.00 Pure hypercholesterolemia, unspecified; Z87.891 Personal history of nicotine dependence; R31.9 Hematuria, unspecified; N40.0 Benign prostatic hyperplasia without lower urinary tract symptoms; I11.9 Hypertensive heart disease without heart failure
CPT/HCPCS: 36415; 71045; 71275; 73502; 80048; 82306; 83735; 84100; 85025; 85027; 85610; 85730; 86850; 86900; 87641; 93005; 93306; 93970; 97110; 97116; 97162; 97167; 97530; 97535; 99284; C1776; J7030; J7040; J7120; Q9967; A4216; J1940; J2405

== ENCOUNTER 2018-01-17 17:52 | Inpatient (IN) | payer MEDICARE, SELFPAY ==
[2018-01-17 19:25] VITALS: BP 133/60; PULSE 85; PULSE 89; RESP 20; TEMP 37.2; O2SAT 94; O2SAT 95
[2018-01-17 20:13] VITALS: BMI 30.1
[2018-01-17 20:16] VITALS: BMI 30.1
[2018-01-17] MEDS: Pravastatin 20 MG Tablet PO (20:50)
[2018-01-17] MEDS: Doxazosin 4 MG Tablet 8 MG PO (20:50)
--- NOTE | 2018-01-18 01:30 | PCM.HP.STD ---
Problem List (1) Fall Status: Acute (2) Hypertension Status: Chronic (3) Anxiety Status: Chronic (4) Diarrhea Status: Chronic (5) Osteoarthritis Status: Chronic (6) Hyperlipidemia Status: Chronic (7) Pulmonary embolism Status: Acute (8) Polycythemia Status: Acute (9) Closed right hip fracture Status: Acute Qualifiers: (10) Acute respiratory failure with hypoxia Status: Acute (11) BPH (benign prostatic hyperplasia) Status: Chronic Qualifiers: (12) Depression Status: Chronic Qualifiers: History of Present Illness Date of Admission: 01/17/18 Chief Complaint: Here for rehabilitation, strengthening, prior to discharge home with spouse. The patient is a 72 year old Male with below past medical history presented to [facility] Emergency Department 01/11/2018 with fall, right hip pain, unable to walk. X-ray showed right impacted hip fracture. Hemoglobin 18. 01/11/2018 Admit to Hospital. Cleared for surgery. 01/11/2018 Chest X-ray diffuse pulmonary interstitial prominence. 01/12/2018 Dr. Barragan recommended spinal, conscious sedation for surgery. Further evaluation for chronic hypoxemia. 01/12/2018 Dr. Marie performed right total hip arthroplasty. 01/12/2018 CTA chest negative pulmonary embolism. 01/12/2018 Echo EF 75% Stage 1 diastolic dysfunction. RVSP 60mm HG. Severe pulmonary hypertension. 01/15/2018 Doppler of legs negative for DVT. Recommend Xarelto x 6 months for possible pulmonary embolism. 01/17/2018 Admit to TCU with debility, here for rehabilitation, strengthening, prior to discharge home with spouse. Past Medical History Past Medical History (Chronic Problems): Chronic Problems (Last Updated 01/11/18 @ 18:02 by Jaspreet Gamez DO) BPH (benign prostatic hyperplasia) (Chronic) Depression (Chronic) Hypercholesterolemia (Chronic) Hypertension (Chronic) Anxiety (Chronic) Diarrhea (Chronic) Osteoarthritis (Chronic) Hyperlipidemia (Chronic) Medical History: Medical History (Last Updated 01/11/18 @ 18:02 by Jaspreet Gamez DO) Anxiety F41.9 Chronic respiratory failure with hypoxia J96.11 HTN (hypertension) I10 Allergies No Known Allergies Allergy (Verified 01/11/18 14:07) Home Medications: Ambulatory Orders Medication Instructions Recorded Amlodipine Besylate [Norvasc] 10 mg PO DAILY 01/12/17 Loperamide [Imodium] 2 mg PO Q6H PRN PRN 01/12/17 Paroxetine [Paxil] 10 mg PO DAILY 01/12/17 Pravastatin [Pravachol] 20 mg PO QHS 01/12/17 Terazosin HCl 10 mg PO QHS 01/12/17 Acetaminophen [Tylenol Tablet] 650 mg PO Q6H PRN PRN tablet 01/16/18 Calcium Carbonate [Tums] 1,000 mg PO Q4H PRN PRN tablet 01/16/18 Oxycodone [Oxyir] 5 mg PO Q6H PRN 3 Days #18 tab 01/16/18 Ensure Enlive 120 ml PO 4X/DAY 01/17/18 Ergocalciferol [Vitamin D] 50,000 unit PO Q7D 01/17/18 Hydrocortisone 2.5% Crm [Hytone] 1 applic TOPICAL BID PRN PRN 7 01/17/18 Days #1 tube Rivaroxaban [Xarelto] 15 mg PO BIDCM 01/17/18 Rivaroxaban [Xarelto] 20 mg PO DAILY 01/17/18 Senna/Docusate Sodium [Senokot-S] 2 tablet PO BID 01/17/18 Surgical History: total hip arthroplasty - Right., - - 2 previous colonoscopies, colon surgery with reversal of colostomy, finger surgery, previous tonsillectomy Psychiatric History: Anxiety, Depression Lives: Spouse/ Significant Other Smoking Status: Former smoker Tobacco Use: Non-smoker Alcohol: None Drugs: None - *Family History Maternal History Items: Heart Disease Review of Systems Constitutional: Denies: Chills, Fever, Weight Change HEENT: Denies: Head Aches, Sinus Congestion, Sinus Drainage Cardiovascular: Denies: Chest Pain, Palpitations Respiratory: Denies: Cough, Shortness of breath at rest, Sputum production Gastrointestinal: Denies: Abdominal Pain, Nausea, Vomiting Genitourinary: Denies: Dysuria Musculoskeletal: Denies: Joint Pain, Joint Tenderness Skin: Denies: Rash, Wounds Neurological: Denies: Numbness, Tingling, Focal weakness Psychiatric: Denies: Anxiety, Depression, Homicidal Ideations, Suicidal Ideations Hematologic/ Lymphatic: Denies: Easy Bruising, Easy Bleeding VTE Information - Inpt Only VTE Present on Admission: No VTE Mechan Device Prophylaxis: Knee High HARSHIL Hose VTE Pharm Prophylaxis ordered?: No Reason prophylaxis not ordered:: Treatment Not Indicated Patient Problems: Active and Suspected Problems (Last Updated 01/11/18 @ 18:02 by Jaspreet Gamez DO) Fall (Acute) Pulmonary embolism (Acute) Polycythemia (Acute) - Physical Exam General: Alert, Oriented x3, Cooperative HEENT: Atraumatic, PERRLA, EOMI, Normocephalic Neck: Supple, No JVD, Negative Carotid Bruits Lungs: Clear to auscultation, Normal air movement Cardiovascular: Regular rate, No murmurs Abdomen: Bowel Sounds Present, Soft, Non Tender Extremities: No edema, Capillary Refill Less than 3 Seconds Skin: No rashes, No breakdown Musculoskeletal: No Tenderness to Palpation of Joints or Extremities Neurological: Cranial nerves II-XII grossly intact Psych/Mental Status: Normal Affect, Appropriate Vital Signs Temp Pulse Resp BP Pulse Ox 98.9 F 85 20 H 133/60 H 95 01/17/18 19:25 01/17/18 19:25 01/17/18 19:25 01/17/18 19:25 01/17/18 19:25 Oxygen Delivery Method Room Air Weight: 95.254 kg Body Mass Index (BMI) 30.1 Intake and Output for Last 24 Hours 01/16/18 01/17/18 01/18/18 23:59 23:59 23:59 Output Total 200 / 200 Balance -200 / -200 Assessment/Plan All Active Problems (Last Updated 01/11/18 @ 18:02 by Jaspreet Gamez DO) Closed right hip fracture (Acute) Acute respiratory failure with hypoxia (Acute) Fall (Acute) Pulmonary embolism (Acute) Polycythemia (Acute) 72 year old male with below past medical history hospitalized for right hip fracture, underwent right total hip arthroplasty 01/12/[address] Robert Marie, complicated by chronic hypoxemia, pulmonary embolism, admitted to TCU with debility, here for rehabilitation, strengthening, prior to discharge home with spouse. Debility - PT/OT. Pain - Tylenol 1000MG Q8H, Oxycodone 5MG Q6H PRN moderate pain. Bowel - Miralax 17GM daily, Senna/colace 2 tablets BID, Dulcolax 10MG PO daily PRN. Pneumonia vaccination - Administer Prevnar 13 and/or Pneumovax 23 as necessary. DVT prophylaxis - Not necessary, already on Xarelto. Hypertension - Amlodipine 10MG daily. Indigestion - TUMS 1000MG Q4H PRN. BPH - Cardura 8MG QHS. Nutrition - Ensure 120ML 4x/day. Vitamin D deficiency - D2 50,000 units per week. Rash - Hytone 2.5% BID back. Skin irritation - Calmoseptine BID bilateral buttocks. Depression - Paroxetine 10MG QHS. Hyperlipidemia - Pravastatin 20MG QHS. Pulmonary Embolism - Xarelto 15MG BID thru 02/06/2018, then 20MG daily total 6 months.
--- NOTE | 2018-01-18 01:36 | HP.PCM_ITS ---
Problem List (1) Fall Status: Acute (2) Hypertension Status: Chronic (3) Anxiety Status: Chronic (4) Diarrhea Status: Chronic (5) Osteoarthritis Status: Chronic (6) Hyperlipidemia Status: Chronic (7) Pulmonary embolism Status: Acute (8) Polycythemia Status: Acute (9) Closed right hip fracture Status: Acute Qualifiers: (10) Acute respiratory failure with hypoxia Status: Acute (11) BPH (benign prostatic hyperplasia) Status: Chronic Qualifiers: (12) Depression Status: Chronic Qualifiers: History of Present Illness Date of Admission: 01/17/18 Chief Complaint: Here for rehabilitation, strengthening, prior to discharge home with spouse. The patient is a 72 year old Male with below past medical history presented to [facility] Emergency Department 01/11/2018 with fall, right hip pain, unable to walk. X-ray showed right impacted hip fracture. Hemoglobin 18. 01/11/2018 Admit to Hospital. Cleared for surgery. 01/11/2018 Chest X-ray diffuse pulmonary interstitial prominence. 01/12/2018 Dr. Barragan recommended spinal, conscious sedation for surgery. Further evaluation for chronic hypoxemia. 01/12/2018 Dr. Marie performed right total hip arthroplasty. 01/12/2018 CTA chest negative pulmonary embolism. 01/12/2018 Echo EF 75% Stage 1 diastolic dysfunction. RVSP 60mm HG. Severe pulmonary hypertension. 01/15/2018 Doppler of legs negative for DVT. Recommend Xarelto x 6 months for possible pulmonary embolism. 01/17/2018 Admit to TCU with debility, here for rehabilitation, strengthening, prior to discharge home with spouse. Past Medical History Past Medical History (Chronic Problems): Chronic Problems (Last Updated 01/11/18 @ 18:02 by Jaspreet Gamez DO) BPH (benign prostatic hyperplasia) (Chronic) Depression (Chronic) Hypercholesterolemia (Chronic) Hypertension (Chronic) Anxiety (Chronic) Diarrhea (Chronic) Osteoarthritis (Chronic) Hyperlipidemia (Chronic) Medical History: Medical History (Last Updated 01/11/18 @ 18:02 by Jaspreet Gamez DO) Anxiety F41.9 Chronic respiratory failure with hypoxia J96.11 HTN (hypertension) I10 Allergies No Known Allergies Allergy (Verified 01/11/18 14:07) Home Medications: Ambulatory Orders Medication Instructions Recorded Amlodipine Besylate [Norvasc] 10 mg PO DAILY 01/12/17 Loperamide [Imodium] 2 mg PO Q6H PRN PRN 01/12/17 Paroxetine [Paxil] 10 mg PO DAILY 01/12/17 Pravastatin [Pravachol] 20 mg PO QHS 01/12/17 Terazosin HCl 10 mg PO QHS 01/12/17 Acetaminophen [Tylenol Tablet] 650 mg PO Q6H PRN PRN tablet 01/16/18 Calcium Carbonate [Tums] 1,000 mg PO Q4H PRN PRN tablet 01/16/18 Oxycodone [Oxyir] 5 mg PO Q6H PRN 3 Days #18 tab 01/16/18 Ensure Enlive 120 ml PO 4X/DAY 01/17/18 Ergocalciferol [Vitamin D] 50,000 unit PO Q7D 01/17/18 Hydrocortisone 2.5% Crm [Hytone] 1 applic TOPICAL BID PRN PRN 7 01/17/18 Days #1 tube Rivaroxaban [Xarelto] 15 mg PO BIDCM 01/17/18 Rivaroxaban [Xarelto] 20 mg PO DAILY 01/17/18 Senna/Docusate Sodium [Senokot-S] 2 tablet PO BID 01/17/18 Surgical History: total hip arthroplasty - Right., - - 2 previous colonoscopies , colon surgery with reversal of colostomy, finger surgery, previous tonsillectomy Psychiatric History: Anxiety, Depression Lives: Spouse/ Significant Other Smoking Status: Former smoker Tobacco Use: Non-smoker Alcohol: None Drugs: None - *Family History Maternal History Items: Heart Disease Review of Systems Constitutional: Denies: Chills, Fever, Weight Change HEENT: Denies: Head Aches, Sinus Congestion, Sinus Drainage Cardiovascular: Denies: Chest Pain, Palpitations Respiratory: Denies: Cough, Shortness of breath at rest, Sputum production Gastrointestinal: Denies: Abdominal Pain, Nausea, Vomiting Genitourinary: Denies: Dysuria Musculoskeletal: Denies: Joint Pain, Joint Tenderness Skin: Denies: Rash, Wounds Neurological: Denies: Numbness, Tingling, Focal weakness Psychiatric: Denies: Anxiety, Depression, Homicidal Ideations, Suicidal Ideations Hematologic/ Lymphatic: Denies: Easy Bruising, Easy Bleeding VTE Information - Inpt Only VTE Present on Admission: No VTE Mechan Device Prophylaxis: Knee High HARSHIL Hose VTE Pharm Prophylaxis ordered?: No Reason prophylaxis not ordered:: Treatment Not Indicated Patient Problems: Active and Suspected Problems (Last Updated 01/11/18 @ 18:02 by Jaspreet Gamez DO ) Fall (Acute) Pulmonary embolism (Acute) Polycythemia (Acute) - Physical Exam General: Alert, Oriented x3, Cooperative HEENT: Atraumatic, PERRLA, EOMI, Normocephalic Neck: Supple, No JVD, Negative Carotid Bruits Lungs: Clear to auscultation, Normal air movement Cardiovascular: Regular rate, No murmurs Abdomen: Bowel Sounds Present, Soft, Non Tender Extremities: No edema, Capillary Refill Less than 3 Seconds Skin: No rashes, No breakdown Musculoskeletal: No Tenderness to Palpation of Joints or Extremities Neurological: Cranial nerves II-XII grossly intact Psych/Mental Status: Normal Affect, Appropriate Vital Signs Temp Pulse Resp BP Pulse Ox 98.9 F 85 20 H 133/60 H 95 01/17/18 19:25 01/17/18 19:25 01/17/18 19:25 01/17/18 19:25 01/17/18 19:25 Oxygen Delivery Method Room Air Weight: 95.254 kg Body Mass Index (BMI) 30.1 Intake and Output for Last 24 Hours 01/16/18 01/17/18 01/18/18 23:59 23:59 23:59 Output Total 200 / 200 Balance -200 / -200 Assessment/Plan All Active Problems (Last Updated 01/11/18 @ 18:02 by Jaspreet Gaemz DO) Closed right hip fracture (Acute) Acute respiratory failure with hypoxia (Acute) Fall (Acute) Pulmonary embolism (Acute) Polycythemia (Acute) 72 year old male with below past medical history hospitalized for right hip fracture, underwent right total hip arthroplasty 01/12/[address] Robert Marie , complicated by chronic hypoxemia, pulmonary embolism, admitted to TCU with debility, here for rehabilitation, strengthening, prior to discharge home with spouse. * Debility - PT/OT. * Pain - Tylenol 1000MG Q8H, Oxycodone 5MG Q6H PRN moderate pain. * Bowel - Miralax 17GM daily, Senna/colace 2 tablets BID, Dulcolax 10MG PO daily PRN. * Pneumonia vaccination - Administer Prevnar 13 and/or Pneumovax 23 as necessary. * DVT prophylaxis - Not necessary, already on Xarelto. * Hypertension - Amlodipine 10MG daily. * Indigestion - TUMS 1000MG Q4H PRN. * BPH - Cardura 8MG QHS. * Nutrition - Ensure 120ML 4x/day. * Vitamin D deficiency - D2 50,000 units per week. * Rash - Hytone 2.5% BID back. * Skin irritation - Calmoseptine BID bilateral buttocks. * Depression - Paroxetine 10MG QHS. * Hyperlipidemia - Pravastatin 20MG QHS. * Pulmonary Embolism - Xarelto 15MG BID thru 02/06/2018, then 20MG daily total 6 months.
[2018-01-18 05:54] LABS: Absolute Lymphocyte Count 0.89 X10^3/ul (0.83-4.51); Absolute Neutrophil Count 5.5 X10^3/uL (2.0-7.7); Basophil# 0.05 X10^3/uL; Basophil% 0.6 % (0-1); Eosinophil# 0.38 X10^3/uL; Eosinophils% 4.9 % (0-5); Hematocrit 40.9 % (40-54); Hemoglobin 13.9 g/dl (13.0-16.5); Lymphocyte # 0.89 X10^3/ul (4.0); Lymphocyte % 11.5 % (19-41); Mean Corpuscular Hgb 30.9 pg (27.0-32.0); Mean Corpuscular Volume 90.9 fL (80-94); Mean Platelet Vol. 10.8 fl (6.2-12.0); Monocyte# 0.88 X10^3/uL; Monocyte% 11.4 % (0-10); Neutrophil # 5.52 X10^3/uL (2.7-7.7); Neutrophil % 71.2 % (47-70); Platelet Count 164 K/mm3 (150-450); RBC Distribution Width CV 13.6 % (11.6-14.6); RBC Distribution Width SD 45.4 fl (35.1-43.9); White Blood Count 7.8 K/mm3 (4.4-11.0)
[2018-01-18] MEDS: amLODIPine 10 MG Tablet PO (05:59)
[2018-01-18 06:00] LABS: Anion Gap 10 (5-15); BUN 22 mg/dL (7-18); Calcium,Total 8.6 mg/dL (8.5-10.1); Chloride 98 mmol/L (98-107); Creatinine, Serum 0.73 mg/dL (0.70-1.30); EST Glomerular Filtration Rate 111 mL/min (>60); Est Glom Filt Rate - Afr Amer 135 mL/min (>60); Estimated Creatinine Clearance 68.94 ml/min; Glucose 105 mg/dL (74-106); Potassium 3.6 mmol/L (3.5-5.1); Sodium Level 138 mmol/L (136-145)
[2018-01-18 06:01] LABS: POSITIVE COUNT NO; POSITIVE DIFFERENTIAL NO; POSITIVE MORPHOLOGY NO
[2018-01-18] MEDS: Hydrocortisone 2.5% Crm 1 APPLIC TOPICAL ×2 (06:04→16:52)
[2018-01-18] MEDS: Menthol/Lanolin/Calamine/Znox 113 GM Tube 1 APPLIC TOPICAL (06:05)
[2018-01-18 06:56] VITALS: O2SAT 94
[2018-01-18] MEDS: Rivaroxaban 15 MG Tablet PO ×2 (11:06→16:54)
[2018-01-18] MEDS: Tuberculin,Purif.prot.deriv. 50 TU/ML Vial 5 ML ID (11:09)
--- NOTE | 2018-01-18 14:41 | PCM.PN.RX ---
<Radhames Meade D - Last Filed: 01/18/18 14:41> Progress Note - Pharmacy Subjective: [] Objective: Allergies No Known Allergies Allergy (Verified 01/11/18 14:07) Current Medications Generic Name Dose Route Start Last Admin Trade Name Freq PRN Reason Stop Dose Admin Acetaminophen 1,000 mg 01/18/18 01:47 Tylenol PO Q8H PRN PRN Amlodipine Besylate 10 mg 01/18/18 06:00 01/18/18 05:59 Norvasc PO 10 mg DAILY [facility] Administration Bisacodyl 10 mg 01/18/18 01:47 Dulcolax PO DAILY PRN PRN Constipation Calamine/Phenol 1 applic 01/18/18 06:00 01/18/18 06:05 Calmoseptine Ointment TOPICAL 1 applicatio BID [facility] Administration Protocol Calcium Carbonate 1,000 mg 01/17/18 19:44 Tums PO Q4H PRN PRN INDIGESTION Doxazosin Mesylate 8 mg 01/17/18 22:00 01/17/18 20:50 Cardura PO 8 mg QHS [facility] Administration Ergocalciferol 50,000 unit 01/20/18 08:00 Vitamin D PO 03/03/18 08:01 Q7D [facility] Hydrocortisone 1 applic 01/18/18 06:00 01/18/18 06:04 Hytone TOPICAL 01/25/18 22:00 1 applicatio BID [facility] Administration Protocol Nutritional Formula (Lactose Free) 120 ml 01/17/18 22:00 01/18/18 11:12 Ensure Enlive PO 120 ml 4X/DAY [facility] Administration Oxycodone HCl 5 mg 01/18/18 01:47 Oxyir PO Q6H PRN PRN MODERATE PAIN (4-5/10) Paroxetine HCl 10 mg 01/18/18 22:00 Paxil PO QHS [facility] Polyethylene Glycol 17 gm 01/18/18 06:00 01/18/18 06:00 Miralax PO Not Given DAILY [facility] Pravastatin Sodium 20 mg 01/17/18 22:00 01/17/18 20:50 Pravachol PO 20 mg QHS [facility] Administration Rivaroxaban 15 mg 01/18/18 08:00 01/18/18 11:06 [facility] 02/06/18 [facility] Rivaroxaban 20 mg 02/06/18 06:00 Xarelto PO DAILY [facility] Senna/Docusate Sodium 2 tablet 01/18/18 06:00 01/18/18 06:00 Senokot-S, Amelie-Colace PO Not Given BID [facility] Tuberculin PPD 5 tu 01/25/18 10:00 Tubersol, Aplisol, Ppd ID 01/25/18 10:01 X1 ONE Problem List (Last Updated 01/11/18 @ 18:02 by Jaspreet Gamez DO) Fall (Acute) Hypertension (Chronic) Anxiety (Chronic) Diarrhea (Chronic) Osteoarthritis (Chronic) Hyperlipidemia (Chronic) Pulmonary embolism (Acute) Polycythemia (Acute) Vital Signs Temp Pulse Resp BP Pulse Ox 98.9 F 85 20 H 133/60 H 94 01/17/18 19:25 01/17/18 19:25 01/17/18 19:25 01/17/18 19:25 01/18/18 06:56 Oxygen Delivery Method Room Air Weight: 95.254 kg Body Mass Index (BMI) 30.1 Sodium 138 mmol/L (136-145) 01/18/18 05:27 Potassium 3.6 mmol/L (3.5-5.1) 01/18/18 05:27 Chloride 98 mmol/L (98-107) 01/18/18 05:27 Carbon Dioxide 30.0 mmol/L (21.0-32.0) 01/18/18 05:27 Anion Gap 10 (5-15) 01/18/18 05:27 BUN 22 mg/dL (7-18) H 01/18/18 05:27 Creatinine 0.73 mg/dL (0.70-1.30) 01/18/18 05:27 Est GFR (MDRD) Af Amer 135 mL/min (>60) 01/18/18 05:27 Est GFR (MDRD) Non-Af 111 mL/min (>60) 01/18/18 05:27 BUN/Creatinine Ratio 30.0 RATIO (10-20) H 01/18/18 05:27 Glucose 105 mg/dL (74-106) 01/18/18 05:27 Assessment/Plan: * 1) Pain APAP prn, oxycodone for moderate pain. Continue to monitor prn medication use, daily pain scores. * APAP ordered with no instructions. Please clarify. Thank you. 2) HTN Amlodipine daily. Continue to monitor BP/HR. 3) HLD Pravastatin at HS. Continue to monitor lipids, hepatic enzymes. 4) PE Rivaroxaban for at least 6 months. Continue to monitor s/s bleeding/clot. 5) BPH Doxazosin daily. Continue to monitor for symptoms. 6) GI TUMS prn. Continue to monitor prn medication use, for s/s GI distress. 7) Derm Calmoseptine, hydrocortisone. Continue to monitor clinically. 8) Nutrition Ensure, D. Continue to monitor clinically. Psychotropic Medications: 9) Depression Paroxetine daily. Continue to monitor s/s depression. Unnecessary Medications: None Bowel Regimen: 10) Senna/s, PEG, prn bisacodyl. Continue to monitor prn medication use, for constipation/diarrhea. Date of Note:: 01/18/18 - Provider Comments Provider responsibility: Provider responsible to enter orders to implement recommendations <Kenneth Jung Chi - Last Filed: 01/18/18 18:09> Progress Note - Pharmacy Subjective: [] Objective: Allergies No Known Allergies Allergy (Verified 01/11/18 14:07) Current Medications Generic Name Dose Route Start Last Admin Trade Name Freq PRN Reason Stop Dose Admin Acetaminophen 1,000 mg 01/18/18 01:47 Tylenol PO Q8H PRN PRN Amlodipine Besylate 10 mg 01/18/18 06:00 01/18/18 05:59 Norvasc PO 10 mg DAILY [facility] Administration Bisacodyl 10 mg 01/18/18 01:47 Dulcolax PO DAILY PRN PRN Constipation Calamine/Phenol 1 applic 01/18/18 06:00 01/18/18 16:54 Calmoseptine Ointment TOPICAL Not Given BID [facility] Protocol Calcium Carbonate 1,000 mg 01/17/18 19:44 Tums PO Q4H PRN PRN INDIGESTION Doxazosin Mesylate 8 mg 01/17/18 22:00 01/17/18 20:50 Cardura PO 8 mg QHS [facility] Administration Ergocalciferol 50,000 unit 01/20/18 08:00 Vitamin D PO 03/03/18 08:01 Q7D [facility] Hydrocortisone 1 applic 01/18/18 06:00 01/18/18 16:52 Hytone TOPICAL 01/25/18 22:00 1 applicatio BID [facility] Administration Protocol Nutritional Formula (Lactose Free) 120 ml 01/17/18 22:00 01/18/18 16:57 Ensure Enlive PO 120 ml 4X/DAY [facility] Administration Oxycodone HCl 5 mg 01/18/18 01:47 Oxyir PO Q6H PRN PRN MODERATE PAIN (4-5/10) Paroxetine HCl 10 mg 01/18/18 22:00 Paxil PO QHS [facility] Polyethylene Glycol 17 gm 01/18/18 06:00 01/18/18 06:00 Miralax PO Not Given DAILY [facility] Pravastatin Sodium 20 mg 01/17/18 22:00 01/17/18 20:50 Pravachol PO 20 mg QHS [facility] Administration Rivaroxaban 15 mg 01/18/18 08:00 01/18/18 16:54 [facility] 02/06/18 08[facility] Rivaroxaban 20 mg 02/06/18 06:00 Xarelto PO DAILY [facility] Senna/Docusate Sodium 2 tablet 01/18/18 06:00 01/18/18 16:55 Senokot-S, Amelie-Colace PO Not Given BID [facility] Tuberculin PPD 5 tu 01/25/18 10:00 Tubersol, Aplisol, Ppd ID 01/25/18 10:01 X1 ONE Problem List (Last Updated 01/11/18 @ 18:02 by Jaspreet Gamez DO) Fall (Acute) Hypertension (Chronic) Anxiety (Chronic) Diarrhea (Chronic) Osteoarthritis (Chronic) Hyperlipidemia (Chronic) Pulmonary embolism (Acute) Polycythemia (Acute) Vital Signs Temp Pulse Resp BP Pulse Ox 97.6 F L 81 18 129/49 H 96 01/18/18 15:39 01/18/18 15:39 01/18/18 15:39 01/18/18 15:39 01/18/18 15:39 Oxygen Delivery Method Room Air Weight: 95.254 kg Body Mass Index (BMI) 30.1 Sodium 138 mmol/L (136-145) 01/18/18 05:27 Potassium 3.6 mmol/L (3.5-5.1) 01/18/18 05:27 Chloride 98 mmol/L (98-107) 01/18/18 05:27 Carbon Dioxide 30.0 mmol/L (21.0-32.0) 01/18/18 05:27 Anion Gap 10 (5-15) 01/18/18 05:27 BUN 22 mg/dL (7-18) H 01/18/18 05:27 Creatinine 0.73 mg/dL (0.70-1.30) 01/18/18 05:27 Est GFR (MDRD) Af Amer 135 mL/min (>60) 01/18/18 05:27 Est GFR (MDRD) Non-Af 111 mL/min (>60) 01/18/18 05:27 BUN/Creatinine Ratio 30.0 RATIO (10-20) H 01/18/18 05:27 Glucose 105 mg/dL (74-106) 01/18/18 05:27 Assessment/Plan: Psychotropic Medications: Unnecessary Medications: Bowel Regimen: - Provider Comments Provider responsibility: Provider responsible to enter orders to implement recommendations Provider Comments to Recommendations by Pharmacy: Agree
--- NOTE | 2018-01-18 15:30 | PHA.CONS_ITS ---
<Radhames Meade D - Last Filed: 01/18/18 14:41> Progress Note - Pharmacy Subjective: [] Objective: Allergies No Known Allergies Allergy (Verified 01/11/18 14:07) Current Medications Generic Name Dose Route Start Last Admin Trade Name Freq PRN Reason Stop Dose Admin Acetaminophen 1,000 mg 01/18/18 01:47 Tylenol PO Q8H PRN PRN Amlodipine Besylate 10 mg 01/18/18 06:00 01/18/18 05:59 Norvasc PO 10 mg DAILY [facility] Administration Bisacodyl 10 mg 01/18/18 01:47 Dulcolax PO DAILY PRN PRN Constipation Calamine/Phenol 1 applic 01/18/18 06:00 01/18/18 06:05 Calmoseptine Ointment TOPICAL 1 applicatio BID [facility] Administration Protocol Calcium Carbonate 1,000 mg 01/17/18 19:44 Tums PO Q4H PRN PRN INDIGESTION Doxazosin Mesylate 8 mg 01/17/18 22:00 01/17/18 20:50 Cardura PO 8 mg QHS [facility] Administration Ergocalciferol 50,000 unit 01/20/18 08:00 Vitamin D PO 03/03/18 08:01 Q7D [facility] Hydrocortisone 1 applic 01/18/18 06:00 01/18/18 06:04 Hytone TOPICAL 01/25/18 22:00 1 applicatio BID [facility] Administration Protocol Nutritional Formula (Lactose Free) 120 ml 01/17/18 22:00 01/18/18 11:12 Ensure Enlive PO 120 ml 4X/DAY [facility] Administration Oxycodone HCl 5 mg 01/18/18 01:47 Oxyir PO Q6H PRN PRN MODERATE PAIN (4-5/10) Paroxetine HCl 10 mg 01/18/18 22:00 Paxil PO QHS [facility] Polyethylene Glycol 17 gm 01/18/18 06:00 01/18/18 06:00 Miralax PO Not Given DAILY [facility] Pravastatin Sodium 20 mg 01/17/18 22:00 01/17/18 20:50 Pravachol PO 20 mg QHS [facility] Administration Rivaroxaban 15 mg 01/18/18 08:00 01/18/18 11:06 Xarelto PO 02/06/18 08:01 [facility] Rivaroxaban 20 mg 02/06/18 06:00 Xarelto PO DAILY [facility] Senna/Docusate Sodium 2 tablet 01/18/18 06:00 01/18/18 06:00 Senokot-S, Amelie-Colace PO Not Given BID [facility] Tuberculin PPD 5 tu 01/25/18 10:00 Tubersol, Aplisol, Ppd ID 01/25/18 10:01 X1 ONE Problem List (Last Updated 01/11/18 @ 18:02 by Jaspreet Gamez DO) Fall (Acute) Hypertension (Chronic) Anxiety (Chronic) Diarrhea (Chronic) Osteoarthritis (Chronic) Hyperlipidemia (Chronic) Pulmonary embolism (Acute) Polycythemia (Acute) Vital Signs Temp Pulse Resp BP Pulse Ox 98.9 F 85 20 H 133/60 H 94 01/17/18 19:25 01/17/18 19:25 01/17/18 19:25 01/17/18 19:25 01/18/18 06:56 Oxygen Delivery Method Room Air Weight: 95.254 kg Body Mass Index (BMI) 30.1 Sodium 138 mmol/L (136-145) 01/18/18 05:27 Potassium 3.6 mmol/L (3.5-5.1) 01/18/18 05:27 Chloride 98 mmol/L (98-107) 01/18/18 05:27 Carbon Dioxide 30.0 mmol/L (21.0-32.0) 01/18/18 05:27 Anion Gap 10 (5-15) 01/18/18 05:27 BUN 22 mg/dL (7-18) H 01/18/18 05:27 Creatinine 0.73 mg/dL (0.70-1.30) 01/18/18 05:27 Est GFR (MDRD) Af Amer 135 mL/min (>60) 01/18/18 05:27 Est GFR (MDRD) Non-Af 111 mL/min (>60) 01/18/18 05:27 BUN/Creatinine Ratio 30.0 RATIO (10-20) H 01/18/18 05:27 Glucose 105 mg/dL (74-106) 01/18/18 05:27 Assessment/Plan: * 1) Pain APAP prn, oxycodone for moderate pain. Continue to monitor prn medication use , daily pain scores. * APAP ordered with no instructions. Please clarify. Thank you. 2) HTN Amlodipine daily. Continue to monitor BP/HR. 3) HLD Pravastatin at HS. Continue to monitor lipids, hepatic enzymes. 4) PE Rivaroxaban for at least 6 months. Continue to monitor s/s bleeding/clot. 5) BPH Doxazosin daily. Continue to monitor for symptoms. 6) GI TUMS prn. Continue to monitor prn medication use, for s/s GI distress. 7) Derm Calmoseptine, hydrocortisone. Continue to monitor clinically. 8) Nutrition Ensure, D. Continue to monitor clinically. Psychotropic Medications: 9) Depression Paroxetine daily. Continue to monitor s/s depression. Unnecessary Medications: None Bowel Regimen: 10) Senna/s, PEG, prn bisacodyl. Continue to monitor prn medication use, for constipation/diarrhea. Date of Note:: 01/18/18 - Provider Comments Provider responsibility: Provider responsible to enter orders to implement recommendations <Kenneth uJng Chi - Last Filed: 01/18/18 18:09> Progress Note - Pharmacy Subjective: [] Objective: Allergies No Known Allergies Allergy (Verified 01/11/18 14:07) Current Medications Generic Name Dose Route Start Last Admin Trade Name Freq PRN Reason Stop Dose Admin Acetaminophen 1,000 mg 01/18/18 01:47 Tylenol PO Q8H PRN PRN Amlodipine Besylate 10 mg 01/18/18 06:00 01/18/18 05:59 Norvasc PO 10 mg DAILY [facility] Administration Bisacodyl 10 mg 01/18/18 01:47 Dulcolax PO DAILY PRN PRN Constipation Calamine/Phenol 1 applic 01/18/18 06:00 01/18/18 16:54 Calmoseptine Ointment TOPICAL Not Given BID [facility] Protocol Calcium Carbonate 1,000 mg 01/17/18 19:44 Tums PO Q4H PRN PRN INDIGESTION Doxazosin Mesylate 8 mg 01/17/18 22:00 01/17/18 20:50 Cardura PO 8 mg QHS [facility] Administration Ergocalciferol 50,000 unit 01/20/18 08:00 Vitamin D PO 03/03/18 08:01 Q7D [facility] Hydrocortisone 1 applic 01/18/18 06:00 01/18/18 16:52 Hytone TOPICAL 01/25/18 22:00 1 applicatio BID [facility] Administration Protocol Nutritional Formula (Lactose Free) 120 ml 01/17/18 22:00 01/18/18 16:57 Ensure Enlive PO 120 ml 4X/DAY [facility] Administration Oxycodone HCl 5 mg 01/18/18 01:47 Oxyir PO Q6H PRN PRN MODERATE PAIN (4-5/10) Paroxetine HCl 10 mg 01/18/18 22:00 Paxil PO QHS [facility] Polyethylene Glycol 17 gm 01/18/18 06:00 01/18/18 06:00 Miralax PO Not Given DAILY [facility] Pravastatin Sodium 20 mg 01/17/18 22:00 01/17/18 20:50 Pravachol PO 20 mg QHS [facility] Administration Rivaroxaban 15 mg 01/18/18 08:00 01/18/18 16:54 Xarelto PO 02/06/18 08:01 [facility] Rivaroxaban 20 mg 02/06/18 06:00 Xarelto PO DAILY [facility] Senna/Docusate Sodium 2 tablet 01/18/18 06:00 01/18/18 16:55 Senokot-S, Amelie-Colace PO Not Given BID [facility] Tuberculin PPD 5 tu 01/25/18 10:00 Tubersol, Aplisol, Ppd ID 01/25/18 10:01 X1 ONE Problem List (Last Updated 01/11/18 @ 18:02 by Jaspreet Gamez DO) Fall (Acute) Hypertension (Chronic) Anxiety (Chronic) Diarrhea (Chronic) Osteoarthritis (Chronic) Hyperlipidemia (Chronic) Pulmonary embolism (Acute) Polycythemia (Acute) Vital Signs Temp Pulse Resp BP Pulse Ox 97.6 F L 81 18 129/49 H 96 01/18/18 15:39 01/18/18 15:39 01/18/18 15:39 01/18/18 15:39 01/18/18 15:39 Oxygen Delivery Method Room Air Weight: 95.254 kg Body Mass Index (BMI) 30.1 Sodium 138 mmol/L (136-145) 01/18/18 05:27 Potassium 3.6 mmol/L (3.5-5.1) 01/18/18 05:27 Chloride 98 mmol/L (98-107) 01/18/18 05:27 Carbon Dioxide 30.0 mmol/L (21.0-32.0) 01/18/18 05:27 Anion Gap 10 (5-15) 01/18/18 05:27 BUN 22 mg/dL (7-18) H 01/18/18 05:27 Creatinine 0.73 mg/dL (0.70-1.30) 01/18/18 05:27 Est GFR (MDRD) Af Amer 135 mL/min (>60) 01/18/18 05:27 Est GFR (MDRD) Non-Af 111 mL/min (>60) 01/18/18 05:27 BUN/Creatinine Ratio 30.0 RATIO (10-20) H 01/18/18 05:27 Glucose 105 mg/dL (74-106) 01/18/18 05:27 Assessment/Plan: Psychotropic Medications: Unnecessary Medications: Bowel Regimen: - Provider Comments Provider responsibility: Provider responsible to enter orders to implement recommendations Provider Comments to Recommendations by Pharmacy: Agree
[2018-01-18 15:39] VITALS: BP 129/49; PULSE 81; RESP 18; TEMP 36.4; O2SAT 96
--- NOTE | 2018-01-18 16:50 | CHAPLAIN ---
Type of Pastoral Visit _x__ Initial Visit ___ Follow-up Visit ___ On-call Visit ___ General Patient Visit ___ Spiritual Assessment ___ Family Conference ___ Bereavement ___ Rapid Response ___ Code Blue ___ Other (describe below) Pastoral Care Referral From _x__ Patient ___ Family ___ Nurse ___ Physician ___ National Sales Representative ___ Senior Care Assistant ___ Other (describe below) Sacrament/Intervention _x__ Active listening ___ Anointing ___ Taoist ___ Bereavement ___ Communion ___ Nanette exploration ___ _x__ Life review _x__ Prayer ___ Reconciliation ___ Sacrament of Sick ___ Supportive presence ___ Wedding ___ Other (describe below) Pastoral Comments introduction to patient about support; pt would like a visit; pt said that he didn't have much to do now but this morning they worked me good; pt has and family for support; pt is not currently connected to a local anglican but open to prayers and future visits
[2018-01-18] MEDS: Doxazosin 4 MG Tablet 8 MG PO (20:35)
[2018-01-18] MEDS: Pravastatin 20 MG Tablet PO (20:35)
[2018-01-18] MEDS: PARoxetine 10 MG Tablet PO (20:36)
[2018-01-19] MEDS: Hydrocortisone 2.5% Crm 1 APPLIC TOPICAL ×2 (05:18→21:33)
[2018-01-19] MEDS: amLODIPine 10 MG Tablet PO (05:19)
[2018-01-19] MEDS: Menthol/Lanolin/Calamine/Znox 113 GM Tube 1 APPLIC TOPICAL ×2 (05:21→21:32)
[2018-01-19 07:05] VITALS: O2SAT 94
[2018-01-19] MEDS: Rivaroxaban 15 MG Tablet PO ×2 (09:12→17:11)
[2018-01-19 14:30] VITALS: O2SAT 96
[2018-01-19 15:28] VITALS: BP 117/53; PULSE 75; RESP 18; TEMP 36.4; O2SAT 89
--- NOTE | 2018-01-19 17:14 | NURSING ---
pt requesting hytone cream be applied at bedtime. time changed per request.
[2018-01-19] MEDS: Pravastatin 20 MG Tablet PO (21:31)
[2018-01-19] MEDS: PARoxetine 10 MG Tablet PO (21:31)
[2018-01-19] MEDS: Doxazosin 4 MG Tablet 8 MG PO (21:31)
[2018-01-20] MEDS: amLODIPine 10 MG Tablet PO (05:51)
[2018-01-20] MEDS: Hydrocortisone 2.5% Crm 1 APPLIC TOPICAL ×2 (05:52→21:35)
[2018-01-20] MEDS: Menthol/Lanolin/Calamine/Znox 113 GM Tube 1 APPLIC TOPICAL ×2 (05:54→20:32)
[2018-01-20 07:34] VITALS: O2SAT 92
[2018-01-20] MEDS: Rivaroxaban 15 MG Tablet PO ×2 (09:11→16:33)
[2018-01-20 15:03] VITALS: BP 115/51; PULSE 72; RESP 16; TEMP 37; O2SAT 92
[2018-01-20] MEDS: Doxazosin 4 MG Tablet 8 MG PO (20:29)
[2018-01-20] MEDS: Pravastatin 20 MG Tablet PO (20:34)
[2018-01-20] MEDS: PARoxetine 10 MG Tablet PO (20:34)
[2018-01-21] MEDS: amLODIPine 10 MG Tablet PO (05:27)
[2018-01-21] MEDS: Menthol/Lanolin/Calamine/Znox 113 GM Tube 1 APPLIC TOPICAL ×2 (05:28→21:16)
[2018-01-21] MEDS: Rivaroxaban 15 MG Tablet PO ×2 (08:06→16:43)
[2018-01-21 12:00] VITALS: PULSE 70; O2SAT 95
[2018-01-21 16:00] VITALS: BP 127/55; PULSE 73; RESP 20; TEMP 37.1; O2SAT 96
[2018-01-21] MEDS: Senna/Docusate Sodium 1 Tablet 2 TABLET PO (16:42)
[2018-01-21] MEDS: Pravastatin 20 MG Tablet PO (21:15)
[2018-01-21] MEDS: Doxazosin 4 MG Tablet 8 MG PO (21:15)
[2018-01-21] MEDS: PARoxetine 10 MG Tablet PO (21:15)
[2018-01-21] MEDS: Hydrocortisone 2.5% Crm 1 APPLIC TOPICAL (21:17)
[2018-01-22] MEDS: amLODIPine 10 MG Tablet PO (05:52)
[2018-01-22] MEDS: Menthol/Lanolin/Calamine/Znox 113 GM Tube 1 APPLIC TOPICAL ×2 (05:54→19:59)
[2018-01-22] MEDS: Rivaroxaban 15 MG Tablet PO ×2 (07:53→17:01)
--- NOTE | 2018-01-22 12:59 | CASEMGMT ---
Insurance Clinical information faxed. Pending continued stay approval at this time. Auth#[id number] Nikky RUST, [employer]
--- NOTE | 2018-01-22 14:34 | CASEMGMT ---
Insurance Continued stay denied with last cover day being 01/24/18 and resident to discharge or financial responsibility to begin on 01/25/18. Auth#[id number] Nikky RUST, SHELL GRADER
[2018-01-22 16:00] VITALS: BP 115/48; PULSE 71; RESP 18; TEMP 36.7; O2SAT 94
--- NOTE | 2018-01-22 16:17 | CASEMGMT ---
Brief interview for mental status (BIMS) and resident mood interview (PHQ-9) completed on this day. BIMS score 15. PHQ-9 score 08/01
--- NOTE | 2018-01-22 16:18 | CASEMGMT ---
Social Work Spoke with resident in room. This director social welfare communicating to resident that continued stay has been denied by insurance and that last cover day is 01/24/18 with resident to discharge or financial responsibility to begin on 01/25/18. Resident choosing to discharge to home with spouse on 01/25/18. This director social welfare communicating that physical therapy is recommending for resident to continue with services through outpatient therapy. Resident is agreeable to recommendation and requesting for outpatient physical therapy to be set up through [facility]. Resident aware that an order will be faxed to [facility] and then [facility] will be contacting resident to set up appointment. Resident reporting to have all needed durable medical equipment already set up within the home. Resident spouse to provide transportation home for resident at time of discharge. Resident declining for this director social welfare to contact resident spouse in regards to discharge date/plan. Resident planning to contact resident spouse on own this evening. Support given. Will fax order to [facility] when obtained. Proposed discharge date: 01/25/18 PLAN: Discharge to home with spouse and outpatient physical therapy. Nikky RUST, PREVENTIVE MEDICINE PHYSICIAN
--- NOTE | 2018-01-22 18:19 | NURSING ---
pt c/o urinary frequency, new order UA and check bladder scan.
[2018-01-22 19:05] LABS: Bacteria 0 SEEN /hpf (None Seen); Mucous, Urine 0 SEEN /hpf (<or=2+); Squamous Epithelial Cells - UA 0 SEEN /hpf (0-5)
[2018-01-22] MEDS: Doxazosin 4 MG Tablet 8 MG PO (19:58)
[2018-01-22] MEDS: Pravastatin 20 MG Tablet PO (19:58)
[2018-01-22] MEDS: PARoxetine 10 MG Tablet PO (19:58)
[2018-01-22] MEDS: Hydrocortisone 2.5% Crm 1 APPLIC TOPICAL (20:00)
[2018-01-22 20:01] LABS: Color, Urine Yellow (Yellow); Glucose, Dipstick Normal (Normal); Ketone-Dipstick Negative (Negative); Leukocyte Esterase-Dipstick Negative /ul (Negative); Nitrite-Dipstick Negative (Negative); Occult Blood-Urine 10 /ul (Negative); Protein-Dipstick Negative (Negative); Urine Bilirubin Dipstick Negative (Negative); Urine Clarity Clear (Clear); Urine Urobilinogen Normal (Normal)
--- NOTE | 2018-01-22 20:04 | NURSING ---
Addendum entered by Katelin Caraballo 01/22/18 23:28: Patient refusing to be cathed again tonight. Patient refusing to be sent to ER. Dr. Jung notified, orders given to hold xarelto for 1 day Original Note: Addendum entered by Katelin Caraballo 01/22/18 23:19: Dr. Jung notified of patient bleeding from penis after unsuccessful attempts to insert Lima. New orders given to send patient to ER. Original Note: Addendum entered by Katelin Caraballo 01/22/18 22:25: Dr. Jung notified of unsuccessful attempts to insert Lima by this nurse and VALENTE Cunningham. New orders given to consult urology in the morning. Original Note: Addendum entered by Katelin Caraballo 01/22/18 20:48: Dr. Jung notified orders given to insert lima. Original Note: Patient had output of urine in urinal of 300. Patient bladder scanned for 614. Patient continues to complain about urinary frequency.
[2018-01-22 20:11] LABS: White Blood Cells 0-5 SEEN /hpf (0-5)
[2018-01-22 20:12] LABS: Red Blood Cells-Urine 0-5 SEEN /hpf (0-5)
--- NOTE | 2018-01-22 21:34 | PCM.DC ---
- Discharge Diagnoses Current Active Problems: Current Active and Chronic Problems (Last Updated 01/11/18 @ 18:02 by Jaspreet Gamez DO) Fall (Acute) Hypertension (Chronic) Anxiety (Chronic) Diarrhea (Chronic) Osteoarthritis (Chronic) Hyperlipidemia (Chronic) Pulmonary embolism (Acute) Polycythemia (Acute) You will use the following diet at home:: No restrictions, Regular Your food should be the consistency of: Regular Your liquids should be the consistency of: Regular/Thin Discharge Activity: Return to Normal Activity, May Shower, Use Walker Weight Bearing Status: Weight bearing as tolerated Call your doctor if you observe: Fever of 101 or Higher, Inability to urinate, Inability to have a bowel movement, Shortness of breath, Chest pain, Uncontrolled pain Allergies/Adverse Reactions: Allergies No Known Allergies Allergy (Verified 01/11/18 14:07) Medications to take at Discharge Amlodipine Besylate [Norvasc] 10 mg PO DAILY 01/12/17 Paroxetine [Paxil] 10 mg PO DAILY 01/12/17 Pravastatin [Pravachol] 20 mg PO QHS 01/12/17 Terazosin HCl 10 mg PO QHS 01/12/17 Calcium Carbonate [Tums] 1,000 mg PO Q4H PRN PRN tablet 01/16/18 Ergocalciferol [Vitamin D] 50,000 unit PO Q7D 01/17/18 Hydrocortisone 2.5% Crm [Hytone] 1 applic TOPICAL BID PRN PRN 7 Days #1 tube 01/17/18 Acetaminophen [Tylenol] 1,000 mg PO Q8H PRN PRN tablet 01/22/18 Rivaroxaban [Xarelto] 15 mg PO BIDCM #22 tab 01/22/18 Rivaroxaban [Xarelto] 20 mg PO DAILY #30 tab 01/22/18 The following prescriptions were given: Rivaroxaban [Xarelto] 20 mg PO DAILY #30 tab Rivaroxaban [Xarelto] 15 mg PO BIDCM #22 tab Primary Care Physician: Brandon Cantor MD [Primary Care Provider] - Please follow up with your Primary Care Physician in: 1 week. Test Results: Test results from this visit will be discussed in further detail at your follow-up appointment, if applicable. Please Follow Up With: Abdifatah VERA When: 2 weeks. Please Follow Up With: Dr Paige Please Follow Up With: With IVETT Freed When: 2 weeks. Proposed Discharge Date: 01/25/18
--- NOTE | 2018-01-22 21:36 | PCM.DC.SUM ---
Discharge Date and Diagnosis - Problem List Patient Problems: Active and Suspected Problems (Last Updated 01/11/18 @ 18:02 by Jaspreet Gamez DO) Fall (Acute) Pulmonary embolism (Acute) Polycythemia (Acute) Date of Admission: 01/17/18 Date of Discharge: 01/25/18 - Primary Discharge Diagnosis Active and Suspected Problems (Last Updated 01/11/18 @ 18:02 by Jaspreet Gamez DO) Fall (Acute) Pulmonary embolism (Acute) Polycythemia (Acute) - Secondary Discharge Diagnosis Chronic Problems (Last Updated 01/11/18 @ 18:02 by Jaspreet Gamez DO) BPH (benign prostatic hyperplasia) (Chronic) Depression (Chronic) Hypercholesterolemia (Chronic) Hypertension (Chronic) Anxiety (Chronic) Diarrhea (Chronic) Osteoarthritis (Chronic) Hyperlipidemia (Chronic) Hospital Course and Treatment Imaging Results: 01/17/18 19:36 Diet: Cardiac/Low Cholesterol Food consistency:: Regular Liquid Consistency:: Regular/Thin Labs (Last 48 Hours) 01/22/18 18:55 Urine Color Yellow Urine Clarity Clear Urine pH 6.0 Ur Specific [place] 1.020 Urine Protein Negative Urine Glucose (UA) Normal Urine Ketones Negative Urine Occult Blood 10 H Urine Nitrite Negative Urine Bilirubin Negative Urine Urobilinogen Normal Ur Leukocyte Esterase Negative Urine RBC 0-5 SEEN Urine WBC 0-5 SEEN Ur Squamous Epith Cells 0 SEEN Urine Bacteria 0 SEEN Urine Mucus 0 SEEN Operations: None Procedures: None Summary of Care Provided: The patient is a 72 year old Male with below past medical history hospitalized for right hip fracture, underwent right total hip arthroplasty 01/12/[address] Robert Marie, complicated by chronic hypoxemia, pulmonary embolism, admitted to TCU with debility, here for rehabilitation, strengthening, prior to discharge home with spouse. Xarelto stop date 07/18/2018. Discharge home with spouse, and outpatient physical therapy. Discharge Diet: No Restrictions Discharge Activity: Return to Normal Activity, May Shower, Use Walker Weight Bearing Status: Weight bearing as tolerated Call your doctor if you observe: Fever of 101 or Higher, Inability to urinate, Inability to have a bowel movement, Shortness of breath, Chest pain, Uncontrolled pain Home Medications: Medications to take at Discharge Amlodipine Besylate [Norvasc] 10 mg PO DAILY 01/12/17 Paroxetine [Paxil] 10 mg PO DAILY 01/12/17 Pravastatin [Pravachol] 20 mg PO QHS 01/12/17 Terazosin HCl 10 mg PO QHS 01/12/17 Calcium Carbonate [Tums] 1,000 mg PO Q4H PRN PRN tablet 01/16/18 Ergocalciferol [Vitamin D] 50,000 unit PO Q7D 01/17/18 Hydrocortisone 2.5% Crm [Hytone] 1 applic TOPICAL BID PRN PRN 7 Days #1 tube 01/17/18 Acetaminophen [Tylenol] 1,000 mg PO Q8H PRN PRN tablet 01/22/18 Rivaroxaban [Xarelto] 15 mg PO BIDCM #22 tab 01/22/18 Rivaroxaban [Xarelto] 20 mg PO DAILY #30 tab 01/22/18 Following Prescrptions Were Given to Patient: Rivaroxaban [Xarelto] 20 mg PO DAILY #30 tab Rivaroxaban [Xarelto] 15 mg PO BIDCM #22 tab Primary Care Physician: Brandon Cantor MD [Primary Care Provider] - Please follow up with your Primary Care Physician in: 1 week. Please Follow Up With: Abdifatah VERA When: 2 weeks. Please Follow Up With: Dr Paige Please Follow Up With: With IVETT Freed When: 2 weeks. Disposition: Home Minutes spent on discharge:: 30 Patient Condition:: Stable Medical Necessity - Tobacco Use Smoking Status: Former smoker Tobacco Use: Non-smoker Meaningful Use Info Meaningful Use Diagnoses (Choose all that apply): None applicable
--- NOTE | 2018-01-22 23:33 | NURSING ---
The nurse had a order to put in a lima catheter this nurse was asked to see if I could get the catheter in. This nurse explained the procedure to the pt and cleansed the penis. While cleansing the penis pt started shaking before even starting the procedure. He stated that his nervous are bad so I ask if he would like to listen to some music to help calm his nervous he stated yes. The RN Candy was also holding his hand while this nurse was in the room. Inserted the lima catheter and got a flash back of urine in the tube so this nurse inflated the balloon with 10cc of sterile water. Pt denies any pain with the catheter in place at this time.
[2018-01-23] MEDS: amLODIPine 10 MG Tablet PO (05:42)
[2018-01-23] MEDS: Menthol/Lanolin/Calamine/Znox 113 GM Tube 1 APPLIC TOPICAL ×2 (05:44→20:39)
[2018-01-23 05:47] VITALS: BP 164/72; PULSE 86; O2SAT 90
[2018-01-23 05:49] VITALS: O2SAT 90
--- NOTE | 2018-01-23 08:01 | PCM.CONS.U ---
Reason for Consult Date of Consultation: 01/23/18 Reason for Consultation: urinary retention and Crawford trauma History of Present Illness: The patient is a 72 year old male who had a hip replacement last week he is in transitional care unit to recover and was found to have significantly elevated postvoid residuals and frequent urination small volumes he is on an alpha-johanna, doxazosin nursing staff last night attempted to place a catheter and ran into a large prostate which started bleeding he is on Xarelto. This morning they came in the patient still urinating frequently still having fairly significant hematuria probably from his prostate and minor trauma from the Crawford placement so numb the patient with lidocaine jelly and use a [address] [place] [address]? Pl[address] a catheter and got clear return of yellow urine put 10 cc in the Crawford. He will to go home with a Crawford catheter continue with doxazosin he can follow-up next week in my office for catheter removal. Past Medical History Past Medical History (Chronic Problems): Chronic Problems (Last Updated 01/11/18 @ 18:02 by Jaspreet Gamez DO) BPH (benign prostatic hyperplasia) (Chronic) Depression (Chronic) Hypercholesterolemia (Chronic) Hypertension (Chronic) Anxiety (Chronic) Diarrhea (Chronic) Osteoarthritis (Chronic) Hyperlipidemia (Chronic) Medical History: Medical History (Last Updated 01/11/18 @ 18:02 by Jaspreet Gamez DO) Anxiety F41.9 Chronic respiratory failure with hypoxia J96.11 HTN (hypertension) I10 Allergies No Known Allergies Allergy (Verified 01/11/18 14:07) Home Medications: Ambulatory Orders Medication Instructions Recorded Amlodipine Besylate [Norvasc] 10 mg PO DAILY 01/12/17 Paroxetine [Paxil] 10 mg PO DAILY 01/12/17 Pravastatin [Pravachol] 20 mg PO QHS 01/12/17 Terazosin HCl 10 mg PO QHS 01/12/17 Calcium Carbonate [Tums] 1,000 mg PO Q4H PRN PRN tablet 01/16/18 Ergocalciferol [Vitamin D] 50,000 unit PO Q7D 01/17/18 Hydrocortisone 2.5% Crm [Hytone] 1 applic TOPICAL BID PRN PRN 7 01/17/18 Days #1 tube Acetaminophen [Tylenol] 1,000 mg PO Q8H PRN PRN tablet 01/22/18 Rivaroxaban [Xarelto] 15 mg PO BIDCM #22 tab 01/22/18 Rivaroxaban [Xarelto] 20 mg PO DAILY #30 tab 01/22/18 Surgical History: total hip arthroplasty - Right., - - 2 previous colonoscopies, colon surgery with reversal of colostomy, finger surgery, previous tonsillectomy Psychiatric History: Anxiety, Depression Lives: Spouse/ Significant Other Smoking Status: Former smoker Tobacco Use: Non-smoker Alcohol: None Drugs: None - *Family History Maternal History Items: Heart Disease Review of Systems Constitutional: Denies: Chills, Fever, Weight Change HEENT: Denies: Head Aches, Sinus Congestion, Sinus Drainage Cardiovascular: Denies: Chest Pain, Palpitations Respiratory: Denies: Cough, Shortness of breath at rest, Sputum production Gastrointestinal: Denies: Abdominal Pain, Nausea, Vomiting Genitourinary: Reports: Hematuria. Denies: Dysuria Musculoskeletal: Denies: Joint Pain, Joint Tenderness Skin: Denies: Rash, Wounds Neurological: Denies: Numbness, Tingling, Focal weakness Psychiatric: Denies: Anxiety, Depression, Homicidal Ideations, Suicidal Ideations Hematologic/ Lymphatic: Denies: Easy Bruising, Easy Bleeding Physical Exam - Physical Exam Vital Signs Temp 98.0 F 01/22/18 16:00 Pulse 86 01/23/18 05:47 Resp 18 01/22/18 16:00 BP 164/72 H 01/23/18 05:47 Pulse Ox 90 01/23/18 05:49 Intake & Output 01/21/18 01/22/18 01/23/18 23:59 23:59 23:59 Intake Total 1080 / 1080 1220 / 1220 120 / 120 Output Total 300 / 300 860 / 860 625 / 625 Balance 780 / 780 360 / 360 -505 / -505 Intake: Oral 1080 / 1080 1220 / 1220 120 / 120 Output: Urine 300 / 300 860 / 860 625 / 625 Other: Number of Voids 2 Incontinent Amount Moderate Number of Bowel Movements 6 General: Alert, Oriented x3 HEENT: Atraumatic Oral: Moist Mucosa Neck: Supple Lungs: Normal air movement Cardiovascular: Regular rate Abdomen: Soft Prostate: 30gm Laboratory Tests Past 24 Hrs 01/22/18 18:55 Urine Color Yellow Urine Clarity Clear Urine pH 6.0 Ur Specific [place] 1.020 Urine Protein Negative Urine Glucose (UA) Normal Urine Ketones Negative Urine Occult Blood 10 H Urine Nitrite Negative Urine Bilirubin Negative Urine Urobilinogen Normal Ur Leukocyte Esterase Negative Urine RBC 0-5 SEEN Urine WBC 0-5 SEEN Ur Squamous Epith Cells 0 SEEN Urine Bacteria 0 SEEN Urine Mucus 0 SEEN Assessment/Plan All Active Problems (Last Updated 01/11/18 @ 18:02 by Jaspreet Gamez DO) Closed right hip fracture (Acute) Acute respiratory failure with hypoxia (Acute) Fall (Acute) Pulmonary embolism (Acute) Polycythemia (Acute) 72-year-old male with enlarged prostate Crawford catheter placed today for some minor Crawford trauma. Leave the catheter in place to gravity drainage needs to be secured to the leg bag he can follow-up next week in my office for a checkup and a catheter removal continue with doxazosin postop. Hold Xarelto until the bleeding stops then can resume. Call with questions
[2018-01-23] MEDS: Lidocaine Jelly 2% 20 ML Syringe (URO-JET) 20 APPLIC TOPICAL (09:28)
[2018-01-23 15:07] VITALS: BP 122/58; PULSE 77; RESP 18; TEMP 36.9; O2SAT 96
[2018-01-23] MEDS: Senna/Docusate Sodium 1 Tablet 2 TABLET PO (16:31)
[2018-01-23] MEDS: PARoxetine 10 MG Tablet PO (20:37)
[2018-01-23] MEDS: Pravastatin 20 MG Tablet PO (20:37)
[2018-01-23] MEDS: Doxazosin 4 MG Tablet 8 MG PO (20:37)
[2018-01-24] MEDS: amLODIPine 10 MG Tablet PO (06:49)
[2018-01-24] MEDS: Menthol/Lanolin/Calamine/Znox 113 GM Tube 1 APPLIC TOPICAL ×2 (06:50→20:04)
--- NOTE | 2018-01-24 10:29 | CASEMGMT ---
Addendum entered by Jaky Otto 01/24/18 10:51: Call to [facility] and appointment has already been set for 01/29 at [address] [facility] and cancelled order. Informed pt and of appt time at [facility]. No further d/c needs. YOCASTA Murphy Original Note: Plan of Care meeting held with pt and present. Pt plans to discharge home tomorrow 01/25/18. Pt has progressed with therapy and feels ready to d/c home tomorrow. Pt has requested outpt PT be set up with Dr [facility] and is now stating he would like outpt PT at [facility]. SW to follow up YOCASTA Murphy
[2018-01-24 15:36] VITALS: BP 132/52; PULSE 72; RESP 22; TEMP 36.8; O2SAT 91
[2018-01-24] MEDS: Pravastatin 20 MG Tablet PO (20:00)
[2018-01-24] MEDS: Doxazosin 4 MG Tablet 8 MG PO (20:00)
[2018-01-24] MEDS: PARoxetine 10 MG Tablet PO (20:00)
[2018-01-24] MEDS: Hydrocortisone 2.5% Crm 1 APPLIC TOPICAL (20:02)
[2018-01-25 06:11] LABS: Absolute Lymphocyte Count 0.98 X10^3/ul (0.83-4.51); Absolute Neutrophil Count 6.1 X10^3/uL (2.0-7.7); Basophil# 0.05 X10^3/uL; Basophil% 0.6 % (0-1); Eosinophil# 0.36 X10^3/uL; Eosinophils% 4.4 % (0-5); Hematocrit 41.1 % (40-54); Hemoglobin 13.7 g/dl (13.0-16.5); Lymphocyte # 0.98 X10^3/ul (4.0); Lymphocyte % 11.9 % (19-41); Mean Corp Hgb Conc 33.3 g/gl (32-36); Mean Corpuscular Hgb 31.2 pg (27.0-32.0); Mean Corpuscular Volume 93.6 fL (80-94); Mean Platelet Vol. 9.4 fl (6.2-12.0); Monocyte% 8.5 % (0-10); Neutrophil # 6.09 X10^3/uL (2.7-7.7); Neutrophil % 73.9 % (47-70); Platelet Count 335 K/mm3 (150-450); RBC Distribution Width CV 14.4 % (11.6-14.6); RBC Distribution Width SD 47.2 fl (35.1-43.9); Red Blood Count 4.39 M/mm3 (4.6-6.2); White Blood Count 8.2 K/mm3 (4.4-11.0)
[2018-01-25 06:16] LABS: Anion Gap 7 (5-15); BUN 13 mg/dL (7-18); BUN/Creat Ratio 17.6 RATIO (10-20); Calcium,Total 8.7 mg/dL (8.5-10.1); Chloride 107 mmol/L (98-107); Creatinine, Serum 0.74 mg/dL (0.70-1.30); EST Glomerular Filtration Rate 110 mL/min (>60); Est Glom Filt Rate - Afr Amer 134 mL/min (>60); Estimated Creatinine Clearance 68.94 ml/min; Glucose 97 mg/dL (74-106); Potassium 4.1 mmol/L (3.5-5.1); Sodium Level 141 mmol/L (136-145)
[2018-01-25 06:20] LABS: POSITIVE COUNT NO; POSITIVE DIFFERENTIAL NO; POSITIVE MORPHOLOGY NO
[2018-01-25] MEDS: amLODIPine 10 MG Tablet PO (06:56)
[2018-01-25] MEDS: Menthol/Lanolin/Calamine/Znox 113 GM Tube 1 APPLIC TOPICAL (06:56)
[2018-01-25] MEDS: Rivaroxaban 15 MG Tablet PO (08:57)
[2018-01-25 10:48] VITALS: BP 132/60; PULSE 77; RESP 16; TEMP 36.9; O2SAT 96
--- NOTE | 2018-01-25 11:00 | NURSING ---
education on lima catheter care given to patient and - use of leg bag discussed also
--- NOTE | 2018-01-26 09:43 | CASEMGMT ---
Insurance Notified insurance of resident discharge on 01/25/18 to home with spouse and outpatient physical therapy. Auth#[id number] Nikky RUST, [employer]
--- NOTE | 2018-01-29 11:32 | MDS.RN ---
Information for the mds was obtained from review of the clinical record, interview of resident, staff, and direct observation of resident's care.
== END 2018-01-25 11:15 | disposition home or self-care (01) | DRG 559 ==
PROVIDERS: Admitting Provider Family Medicine Geriatric Medicine; Family Provider Internal Medicine; PCP Internal Medicine; Visit Provider Family Medicine Geriatric Medicine
DX: S72.001D Fracture of unspecified part of neck of right femur, subsequent encounter for closed fracture with routine healing (principal); J96.21 Acute and chronic respiratory failure with hypoxia; W19.XXXD Unspecified fall, subsequent encounter; F32.9 Major depressive disorder, single episode, unspecified; E78.5 Hyperlipidemia, unspecified; M19.90 Unspecified osteoarthritis, unspecified site; I10 Essential (primary) hypertension; F41.9 Anxiety disorder, unspecified; Z86.711 Personal history of pulmonary embolism; D75.1 Secondary polycythemia; Z87.891 Personal history of nicotine dependence; R33.8 Other retention of urine; N40.1 Benign prostatic hyperplasia with lower urinary tract symptoms
CPT/HCPCS: 36415; 80048; 81001; 85025; 87086; 97110; 97116; 97162; 97166; 97530; 97535; 97802

== ENCOUNTER → 2018-02-13 14:01 | Outpatient (CLI) | payer MEDICARE, SELFPAY ==
--- NOTE | 2018-02-13 14:03 | ECHOCS_ITS ---
Reason For Study: EMBOLI Procedure This was a 2D Doppler, Color Flow transthoracic echocardiogram. Exam performed in department. Left Ventricle Normal LV size. Left ventricular systolic function is normal. The estimated ejection fraction is 65 %. Stage 1 diastolic dysfunction. No regional wall motion abnormalities noted. Right Ventricle Normal RV size. Normal systolic function. Atria Normal left atrium. Normal right atrium. Mitral Valve Normal mitral valve. Tricuspid Valve Normal tricuspid valve. Mild to moderate (1-2+) tricuspid valve insufficiency. Pulmonary artery systolic pressure is 42 mmHg. Aortic Valve Normal aortic valve. Trisinus/trileaflet aortic valve. Pulmonic Valve Normal pulmonic valve. Great Vessels Normal aortic root. The pulmonary artery is normal size. Normal inferior vena cava. Pericardium/Pleural No pericardial effusion. MMode/2D Measurements & Calculations LVIDd: 4.2 cm IVSd: 1.1 cm Ao root diam: 3.5 cm LVIDs: 2.9 cm LVPWd: 1.1 cm RVDd: 4.2 cm FS: 32.4 % LAV(MOD-sp4): 47.9 ml LA A4 area: 17.0 cm2 RA A4 area: 14.6 cm2 Time Measurements MV dec time: 0.27 sec Doppler Measurements & Calculations MV E max marc: 82.7 cm/sec Lat Peak E' Marc: 11.1 cm/sec Med Peak E' Marc: 5.8 cm/sec MV A max marc: 104.6 cm/sec E/E' lat: 7.5 E/E' med: 14.4 MV E/A: 0.79 Ao V2 max: 149.3 cm/sec LV V1 max: 135.8 cm/sec PA V2 max: 127.9 cm/sec Ao max P.9 mmHg LV V1 max P.4 mmHg PI end-d marc: 202.1 cm/sec TR max marc: 309.1 cm/sec TR max P.7 mmHg Interpretation Summary Normal LV size. Left ventricular systolic function is normal. The estimated ejection fraction is 65 %. Stage 1 diastolic dysfunction. Mild to moderate (1-2+) tricuspid valve insufficiency. Pulmonary artery systolic pressure is 42 mmHg. Ordering Physician: ARIEL BOLANOS Referring Physician: TASHA WILLS Performed By: Gilma Chaudhry, RDCS, RVT
== END ==
PROVIDERS: Family Provider Internal Medicine; PCP Internal Medicine; Visit Provider Nurse Practitioner Acute Care
DX: I74.9 Embolism and thrombosis of unspecified artery (principal)
CPT/HCPCS: 93306

== ENCOUNTER → 2018-03-05 09:40 | Outpatient (CLI) | payer MEDICARE, SELFPAY | PROVIDERS: Family Provider Internal Medicine; PCP Internal Medicine; Referring Provider Nurse Practitioner Adult Health; Visit Provider Nurse Practitioner Adult Health | DX: R31.9 Hematuria, unspecified (principal); R82.998 Other abnormal findings in urine | CPT/HCPCS: 87077; 87086; 87088; 87186 ==

== ENCOUNTER → 2018-03-27 10:23 | Outpatient (CLI) | payer MEDICARE, SELFPAY ==
[2018-03-27 11:05] LABS: Erythrocyte Sedimentation Rate 5 mm/hr (0-20)
[2018-03-27 11:08] LABS: Absolute Lymphocyte Count 1.07 X10^3/ul (0.83-4.51); Absolute Neutrophil Count 5.4 X10^3/uL (2.0-7.7); Basophil# 0.04 X10^3/uL; Basophil% 0.5 % (0-1); Eosinophils% 2.7 % (0-5); Hematocrit 49.7 % (40-54); Hemoglobin 16.5 g/dl (13.0-16.5); Lymphocyte # 1.07 X10^3/ul (4.0); Lymphocyte % 14.6 % (19-41); Mean Corp Hgb Conc 33.2 g/gl (32-36); Mean Corpuscular Hgb 30.7 pg (27.0-32.0); Mean Corpuscular Volume 92.6 fL (80-94); Mean Platelet Vol. 10.2 fl (6.2-12.0); Monocyte# 0.65 X10^3/uL; Monocyte% 8.9 % (0-10); Neutrophil # 5.35 X10^3/uL (2.7-7.7); Neutrophil % 73.2 % (47-70); Platelet Count 199 K/mm3 (150-450); RBC Distribution Width CV 14.6 % (11.6-14.6); RBC Distribution Width SD 49.3 fl (35.1-43.9); Red Blood Count 5.37 M/mm3 (4.6-6.2); White Blood Count 7.3 K/mm3 (4.4-11.0)
[2018-03-27 11:10] LABS: POSITIVE COUNT NO; POSITIVE DIFFERENTIAL NO; POSITIVE MORPHOLOGY NO
[2018-03-27 11:22] LABS: CRP < 2.90 mg/L (0.0-3.0)
== END ==
PROVIDERS: Family Provider Internal Medicine; PCP Internal Medicine; Referring Provider Physician Assistant; Visit Provider Physician Assistant
DX: Z01.812 Encounter for preprocedural laboratory examination (principal); S72.001D Fracture of unspecified part of neck of right femur, subsequent encounter for closed fracture with routine healing
CPT/HCPCS: 36415; 85025; 85652; 86140

== ENCOUNTER → 2018-04-09 09:08 | Outpatient (CLI) | payer MEDICARE, SELFPAY ==
[2018-04-09 09:36] VITALS: PULSE 60; PULSE 69; PULSE 73; PULSE 83; PULSE 90; PULSE 91; PULSE 95; O2SAT 91; O2SAT 92; O2SAT 93; O2SAT 94; O2SAT 95; O2SAT 96
--- NOTE | 2018-04-09 12:25 | PCM.PSN.6M ---
PSN 6 Minute Walk Test - 6 Minute Walk Test 6 Minute Walk Test: 6 Minute Walk Test PSN:6-Minute Walk Test Start: 04/09/18 09:36 Freq: Status: Active Protocol: RESP.6MINW Document 04/09/18 09:36 SMB (Rec: 04/09/18 09:40 SMB [id number]) 6 Minute Walk Test Date Performed 04/09/18 Time Performed 09:18 Height 5 ft 10 in Weight: 204 lb Weight in Pounds 204.[address]: Lourdes Watson Assistive device used: Cane Pre-test Oxygen Delivery Method Room Air Pulse Ox (%) 96 Pulse Rate (60-100 beats/min) 91 Dyspnea Lori Scale (0-10) 0 Exertion Lori Scale (6-20) 11 1st minute Oxygen Delivery Method Room Air Pulse Ox (%) 94 Pulse Rate (60-100 beats/min) 69 2nd minute Oxygen Delivery Method Room Air Pulse Ox (%) 95 Pulse Rate (60-100 beats/min) 83 3rd minute Pulse Ox (%) 93 Pulse Rate (60-100 beats/min) 73 4th minute Oxygen Delivery Method Room Air Pulse Ox (%) 94 Pulse Rate (60-100 beats/min) 60 5th minute Oxygen Delivery Method Room Air Pulse Ox (%) 91 Pulse Rate (60-100 beats/min) 90 6th minute Oxygen Delivery Method Room Air Pulse Ox (%) 92 Pulse Rate (60-100 beats/min) 95 Post-test Oxygen Delivery Method Room Air Pulse Ox (%) 96 Pulse Rate (60-100 beats/min) 95 Dyspnea Lori Scale (0-10) 2 Exertion Lori Scale (6-20) 13 Full Laps Walked 11 Partial Lap, Number of Tiles Walked 12 Total Distance Walked (ft) 661 - Interpretation Interpretation: The patient ambulated 661 feet over the course of 6 minutes beginning on room air with use of a cane. Pretesting oxygen saturation was noted to be 96% on room air. With ambulation, the florencia oxygen saturation was 91%. This represents a significant exertional oxygen desaturation. - Recommendations Recommendations: There is no indication for the use of supplemental oxygen at this time. However, close interval follow-up is recommended, given the degree of oxygen desaturation noted during this study.
== END ==
PROVIDERS: Family Provider Internal Medicine; PCP Internal Medicine; Referring Provider Nurse Practitioner Acute Care; Visit Provider Nurse Practitioner Acute Care
DX: R06.00 Dyspnea, unspecified (principal)
CPT/HCPCS: 94618

== ENCOUNTER → 2018-05-01 09:56 | Outpatient (CLI) | payer MEDICARE, SELFPAY ==
[2018-01-31 08:34] VITALS: BMI 29.1
--- NOTE | 2018-05-01 15:51 | PFTCOMP_ITS ---
COMPLETE PULMONARY FUNCTION TEST INTERPRETATION Brief HPI: Patient is a 72 year old male, currently under the care of myself, who presents to [facility] for complete pulmonary function tests secondary to diagnosis of dyspnea. Respiratory therapist reports good effort and reproducible results. Interpretation: Forced expiration spirometry shows no large airways obstructive ventilatory defect with an FEV1 of 98% predicted. There is no significant bronchodilator response by strict ATS criteria. Spirograms are of good quality and plateau slowly, indicating slowly emptying areas of the lungs. The respiratory flow volume loop shows a normal pattern. Lung volumes by body plethysmography show a normal total lung capacity at 6.98 L, 106% predicted. All other lung volumes are within normal limits. Diffusion capacity by carbon monoxide is normal at 95% predicted. The airway resistance is normal. No previous pulmonary function tests were available for review. Impression: These pulmonary function tests are within normal limits
--- OUTSIDE RECORDS SUMMARY | 2018-06-13 00:26 | XMS RPT_ITS ---
:1945 Author Organization [place] Support Name Relationship Address Phone SHIVANI OLIVIA Unavailable [address] + [place] [address] CORWIN, ERASTO Unavailable [address] + [place] [address] R Unavailable Unavailable Unavailable CORWIN, SHIVANI Unavailable [address] + [place] [address] CORWIN, ERASTO Unavailable [address] + [place] [address] R Unavailable Unavailable Unavailable CORWIN, SHIVANI Unavailable [address] + [place] [address] CORWIN, ERASTO Unavailable [address] + [place] [address] R Unavailable Unavailable Unavailable CORWIN, SHIVANI Unavailable [address] + [place] [address] CORWIN, ERASTO Unavailable [address] + [place] [address] R Unavailable Unavailable Unavailable CORWIN, SHIVANI Unavailable [address] + [place] [address] CORWIN, ERASTO Unavailable [address] + [place] [address] R Unavailable Unavailable Unavailable CORWIN, SHIVANI Unavailable [address] + [place] [address] CORWIN, ERASTO Unavailable [address] + [place] [address] R Unavailable Unavailable Unavailable CORWIN, SHIVANI Unavailable [address] + [place] [address] CORWIN, ERASTO Unavailable [address] + [place] [address] R Unavailable Unavailable Unavailable CORWIN, SHIVANI Unavailable [address] + [place] [address] CORWIN, ERASTO Unavailable [address] + [address] [employer] [facility] [place] [address] + [place] [address] CORWIN, SHIVANI Unavailable [address] + [place] [address] CORWIN, ERASTO Unavailable [address] + [address] OF [place] [address] + [place] [address] CORWIN, SHIVANI Unavailable [address] + [place] [address] CORWIN, ERASTO Unavailable [address] + [address] [place] [address] + [place] [address] CORWIN, SHIVANI Unavailable [address] + [place] [address] CORWIN, ERASTO Unavailable [address] + [address] [employer] [place] [address] + [place] [address] CORWIN, SHIVANI Unavailable [address] + [place] [address] CORWIN, ERASTO Unavailable [address] + [address] [employer] [place] [address] + [place] [address] CORWIN, SHIVANI Unavailable [address] + [place] [address] CORWIN, ERASTO Unavailable [address] + [address] [employer] [place] [address] + [place] [address] CORWIN, SHIVANI Unavailable [address] + [place] [address] CORWIN, ERASTO Unavailable [address] + [place], [place] [id number] [place] [address] [employer] [place] [address] + [place] [address] CORWIN, SHIVANI Unavailable [address] + [place] [address] CORWIN, ERASTO Unavailable [address] + [place], [place] [id number] [place] [address] [employer] [place] [address] + [place] [address] CORWIN, SHIVANI Unavailable [address] + [place] [address] CORWIN, ERATSO Unavailable [address] + [place], [place] [id number] [place] [address] [employer] [place] [address] + [place] [address] CORWIN, SHIVANI Unavailable [address] + [place] [address] CORWIN, ERASTO Unavailable [address] + [place], [place] [id number] [place] [address] [employer] [place] [address] + [place] [address] CORWIN, SHIVANI Unavailable [address] + [place] [address] CORWIN, ERASTO Unavailable [address] + [place], [place] [id number] [place] [address] [employer] [facility] [place] [address] + [place] [address] CORWIN, SHIVANI Unavailable [address] + [place] [address] CORWIN, ERASTO Unavailable [address] + [place], [place] [id number] [place] [address] [employer] [place] [address] + [place] [address] CORWIN, SHIVANI Unavailable [address] + [place] [address] CORWIN, ERASTO Unavailable [address] + [place], [place] [id number] [place] [address] [employer] [facility] [place] [address] + [place] [address] CORWIN, SHIVANI Unavailable [address] + [place] [address] CORWIN, ERASTO Unavailable [address] + [place], [place] [id number] [place] [address] [employer] [place] [address] + [place] [address] CORWIN, SHIVANI Unavailable [address] + [place] [address] CORWIN, ERASTO Unavailable [address] + [place], [place] [id number] [place] [address] [employer] [facility] [place] [address] + [place] [address] CORWIN, SHIVANI Unavailable [address] + [place] [address] CORWIN, ERASTO Unavailable [address] + [address] [employer] [place] [address] + [place] [address] CORWIN, SHIVANI Unavailable [address] + [place] [address] CORWIN, ERASTO Unavailable [address] + [place], [place] [id number] [place] [address] [employer] [place] [address] + [place] [address] CORWIN, SHIVANI Unavailable [address] + [place] [address] CORWIN, ERASTO Unavailable [address] + [place], [place] [address] [place] [address] [employer] [facility] [place] [address] + [place] [address] CORWIN, SHIVANI Unavailable [address] + [place] [address] CORWIN, ERASTO Unavailable [address] + [place], [place] [id number] [place] [address] [employer] [place] [address] + [place] [address] CORWIN, SHIVANI Unavailable [address] + [place] [address] CORWIN, ERASTO Unavailable [address] + [place] [id number] [place] [address] + [place] [address] BARBY OLIVIARA Unavailable [address] + [place] [address] CORWIN, ERASTO Unavailable [address] + [place], [place] [id number] [place] [address] [place] [address] + [place] [address] Care Team Providers Name Role Phone BRANDON CANTOR Referring Unavailable OLDER, DELICIA ([facility]) Attending Unavailable CANTOR, KARTHIK Referring Unavailable OLDER, DELICIA ([facility]) Referring Unavailable OLDER, DELICIA ([facility]) Referring Unavailable OLDER, DELICIA (CUSTOMER QUALITY SPECIALIST) Referring Unavailable OLDER, DELICIA ([facility]) Referring Unavailable OLDER, DELICIA ([facility]) Referring Unavailable OLDER, DELICIA ([facility]) Referring Unavailable OLDER, DELICIA ([facility]) Referring Unavailable CANTOR, KARTHIK Attending Unavailable CANTOR, KARTHIK Referring Unavailable CANTOR, KARTHIK Referring Unavailable CANTOR, KARTHIK Referring Unavailable COLLIN ANDERSON Attending Unavailable OLDER, DELICIA ([facility]) Referring Unavailable CANTOR, KARTHIK Attending Unavailable CANTOR, KARTHIK Referring Unavailable OLDER, DELICIA ([facility]) Attending Unavailable OLDER, DELICIA ([facility]) Referring Unavailable Paintsil, Bonne Terre Attending Unavailable Cantor, Brandon Primary Care Unavailable Jaspreet Gamez Admitting Unavailable Ruslan Casarez Consulting Unavailable Ian Barragan Consulting Unavailable Ian Barragan Attending Unavailable Chino Alvares D.O. Referring Unavailable Lourdes Watson Attending Unavailable Brandon Cantor Referring Unavailable Chino Alvares D.O. Attending Unavailable Lourdes Watson Referring Unavailable Jaspreet Gamez Attending Unavailable Cantor, Brandon Primary Care Unavailable Ian Barragan Attending Unavailable CantorBrandon Referring Unavailable Lourdes Watson Attending Unavailable Lourdes Watson Referring Unavailable Cantor, Brandon Primary Care Unavailable Lourdes Watson Attending Unavailable Lourdes Watson Referring Unavailable Cantor, Brandon Primary Care Unavailable Collin Fournier Attending Unavailable Collin Fournier Referring Unavailable Cantor, Brandon Primary Care Unavailable Darryl Harding Attending Unavailable Shirley Lourdes Referring Unavailable Erasto Tyler Attending Unavailable Erasto Tyler Referring Unavailable Cantor, Brandon Primary Care Unavailable Darryl Harding Attending Unavailable Casarez, Ruslan Referring Unavailable Jose Armando Rao Attending Unavailable Yisel Lanza Referring Unavailable WatsonLourdes Attending Unavailable Watson, Lourdes Referring Unavailable Cantor, Brandon Primary Care Unavailable Shirley, Lourdes Attending Unavailable Cantor, Brandon Referring Unavailable Yung, Ian Attending Unavailable Paintsil, Bonne Terre Referring Unavailable Jopperi, Jaspreet Admitting Unavailable Paintsil, Bonne [place]re Attending Unavailable Cantor, Brandon Primary Care Unavailable Casarez, Ruslan Consulting Unavailable Yung, [place] Consulting Unavailable Paintsil, [place]ne [place] Consulting Unavailable Erich, Kenneth Chi Admitting Unavailable Erich, Kenneth Chi Attending Unavailable Cantor, Brandon Primary Care Unavailable Gio Connolly Consulting Unavailable Jopperi, Jaspreet Admitting Unavailable Chino Alvares D.O. Attending Unavailable Cantor, Brandon Primary Care Unavailable Casarez, Ruslan Consulting Unavailable Yung, [place] Consulting Unavailable Jopperi, Jaspreet Consulting Unavailable Jopperi, Jaspreet Admitting Unavailable Jopperi, Jaspreet Attending Unavailable Cantor, Brandon Primary Care Unavailable Casarez, Ruslan Consulting Unavailable Yung, [place] Consulting Unavailable Jopperi, Jaspreet Consulting Unavailable Jopperi, Jaspreet Admitting Unavailable Chino Alvares D.O. Attending Unavailable Cantor, Brandon Primary Care Unavailable Casarez, Ruslan Consulting Unavailable Yung, [place] Consulting Unavailable Jopperi, Jaspreet Consulting Unavailable Jopperi, Jaspreet Admitting Unavailable Chino Alvares D.O. Attending Unavailable Cantor, Brandon Primary Care Unavailable Casarez, Ruslan Consulting Unavailable Yung, [place] Consulting Unavailable Jopperi, Jaspreet Consulting Unavailable Jopperi, Jaspreet Admitting Unavailable Jopperi, Jaspreet Attending Unavailable Cantor, Brandon Primary Care Unavailable Casarez, Ruslan Consulting Unavailable Yung, [place] Consulting Unavailable Jopperi, Jaspreet Consulting Unavailable Jopperi, Jaspreet Admitting Unavailable Jopperi, Jaspreet Attending Unavailable Cantor, Brandon Primary Care Unavailable Casarez, Ruslan Consulting Unavailable Yung, [place] Consulting Unavailable Jopperi, Jaspreet Consulting Unavailable Jopperi, Jaspreet Admitting Unavailable Jopperi, Jaspreet Attending Unavailable Cantor, Brandon Primary Care Unavailable Ruslan Casarez Consulting Unavailable Yung, [place] Consulting Unavailable Jaspreet Gamez Consulting Unavailable Jaspreet Gamez Admitting Unavailable Yisel Lanza Attending Unavailable Brandon Cantor Primary Care Unavailable Ruslan Casarez Consulting Unavailable Yung, Ian Consulting Unavailable Myla, Yisel Jennifer Consulting Unavailable Lourdes Watson Attending Unavailable Lourdes Watson Referring Unavailable Brandon Cantor Primary Care Unavailable Desiree Porter Attending Unavailable PROBLEMS PROBLEMS DATE TYPE CONDITION / CODE ATTENDING STATUS SOURCE 05/18/2018 Unknown R04.2 - Hemoptysis Shirley Active [place] / R04.2(ICD-10) [facility] Repository 05/10/2018 Unknown J96.01 - Acute Yung Ian Active [place] respiratory Community failure with Hospital hypoxia / Repository J96.01(ICD-10) 05/18/2018 Unknown R06.00 - Dyspnea, Ian Barragan Active [place] unspecified / Community R06.00(ICD-10) Hospital Repository 03/27/2018 Unknown S72.001D - Collin Fournier Active [facility] Fracture of Community unspecified part Hospital of neck of right Repository femur, subsequent encounter for closed fracture with routine healing / S72.001D(ICD-10) 01/30/2018 Active Pulmonary NA Active [facility] hypertension, [place] unspecified / Repository I27.20(ICD-10) 03/05/2018 Unknown R31.9 - Hematuria, Jayson, Erasto Active [place] unspecified / M Community R31.9(ICD-10) Hospital Repository 01/31/2018 Unknown I50.30 - Shirley Active [place] Unspecified [facility] Hospital (congestive) heart Repository failure / I50.30(ICD-10) 01/30/2018 Active Unknown / ELMA, Active [facility] UNK(Unknown) KARTHIK [place] Repository 02/22/2018 Unknown I11.9 - MehdiDarryl glover Active [place] Hypertensive heart Community disease without Hospital heart failure / Repository I11.9(ICD-10) 01/25/2018 Unknown S72.001A - Ian Barragan Active [place] Fracture of Community unspecified part Hospital of neck of right Repository femur, initial encounter for closed fracture / S72.001A(ICD-10) 01/25/2018 Unknown I27.81 - Cor [place] Barragan Active [place] pulmonale Community (chronic) / Hospital I27.81(ICD-10) Repository 01/25/2018 Unknown W01.0XXA - Fall on [place] Barragan Active [place] same level from [facility] slipping, tripping Hospital and stumbling Repository without subsequent striking against object, initial encounter / W01.0XXA(ICD-10) 01/25/2018 Unknown E66.9 - Obesity, Ian Barragan Active [facility] [place] unspecified / Community E66.9(ICD-10) Hospital Repository 01/25/2018 Unknown I10 - Essential [place] Barragan Active [place] (primary) [facility] hypertension / Hospital I10(ICD-10) Repository 10/19/2017 Active Other forms of NA Active [facility] dyspnea / [place] R06.09(ICD-10) Repository 10/19/2017 Active Abnormal findings NA Active [facility] on diagnostic [facility] imaging of other Repository specified body structures / R93.8(ICD-10) 09/14/2017 Active Shortness of NA Active [facility] breath / [facility] R06.02(ICD-10) Repository 09/14/2017 Active Personal history NA Active [facility] of nicotine [facility] dependence / Repository Z87.891(ICD-10) 09/11/2017 Active 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 [place] [address] OFFICE VISIT Date of Service: 05/18/18 MR#: [id number] Acct: [id number] Name: ROHAN OLIVIA Lyle Rep #: [id number] : 1945 Provider: Lourdes Watson Age/Sex: 72/M Location: [facility] Status: Signed Assessment AND Plan 1. Hemoptysis R04.2 Plan New. Continue Xarelto but stopped daily aspirin. Obtaining a chest x-ray to rule out any other acute source of hemoptysis. Hemoptysis likely a result of epistaxis draining into the lungs and being expectorated out. No further episodes of hemoptysis. He has been asked to contact the office if any recurrence appears. We will contact him later today to report to him the findings of the chest x-ray. Keep previously scheduled routine follow-up. Discussed the case with Dr. Barragan who also agrees that aspirin should be stopped. Chest x-ray negative. Orders Orders: 2. Other acute pulmonary embolism with acute cor pulmonale I26.09 Plan Complicates exam, plan, care and prognosis. Continue Xarelto but stop aspirin. Plan for repeat echocardiogram prior to routine follow-up. Chest x- ray pending. HPI nose bleed: Chief Complaint: Hemoptysis HPI Comments Details: Patient presents the office today for acute visit regarding hemoptysis. He is ambulatory and currently in room air. He reports that this morning before he got out of bed he noticed some drainage on his nose and thought he had a runny nose. He felt the drainage and thought that it probably was a larger amount than he expected. He then noticed that it was a nosebleed. Upon arising and getting out of bed he was able to quickly stop the nosebleed. He then coughed up a moderate amount of bright red blood. There are several episodes of coughing his cough cleared to some clear drainage only. He does admit that he probably gets 5-6 nosebleeds per year. He also states that I have a bad habit of picking my nose. He had no other symptoms prior to or after the episode. He denies any other episodes of hemoptysis. He did not have any chest pain, palpitations, wheezing or chest tightness. He denies any fever, chills or body aches. He did not experience any shortness of breath, actually reports that the shortness of breath he was experiencing on exertion has probably improved. He is compliant with Xarelto daily, as well as a low-dose aspirin daily. He denies any other signs of bleeding such as hematemesis, hematochezia or melena stools. Intake Vital Signs05/18/18 Body Mass Index (BMI) 28.7 05/18/18 Height 5 ft 10 in 05/18/18 Weight: 206 lb Intake Visit Reasons: nose bleed Accompanied by: Self Allergies No Known Allergies Allergy (Verified 05/18/18 10:48) Medications Amlodipine Besylate [Norvasc] 10 mg PO DAILY 01/12/17 [History Confirmed 05/18/18] Paroxetine [Paxil] 10 mg PO DAILY 01/12/17 [History Confirmed 05/18/18] Pravastatin [Pravachol] 20 mg PO QHS 01/12/17 [History Confirmed 05/18/18] Rivaroxaban [Xarelto] 20 mg PO DAILY #30 tab 01/22/18 [Rx Confirmed 05/18/18] aspirin 81 mg tablet,delayed release 81 mg PO DAILY 01/31/18 [History Confirmed 05/18/18] lorazepam 1 mg tablet 1 mg PO QD-BID PRN 01/31/18 [History Confirmed 05/18/18] gabapentin PO HS 05/10/18 [History Confirmed 05/18/18] tamsulosin 0.4 mg capsule 0.4 mg PO DAILY 05/10/18 [History Confirmed 05/18/18] PFS Medical History Closed right hip fracture (Acute) Acute respiratory failure with hypoxia (Acute) BPH (benign prostatic hyperplasia) (Chronic) Depression (Chronic) Hypercholesterolemia (Chronic) Fall (Acute) Hypertension (Chronic) Anxiety (Chronic) Diarrhea (Chronic) Osteoarthritis (Chronic) Hyperlipidemia (Chronic) Pulmonary embolism (Acute) Polycythemia (Acute) Anxiety (Acute) Chronic respiratory failure with hypoxia (Acute) HTN (hypertension) (Chronic) Surgical History H/O colonoscopy (Resolved) History of colon surgery (Resolved) History of total right hip replacement (Resolved) reattachment of severed finger (Resolved) stoma reversal (Resolved) Family History Father Lung cancer Mother Parkinsons Heart failure Social History household members: spouse housing: house 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al status: employed 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: [employer] pets and animals: Yes pets and animals: cat(s), dog(s) Smoking Status: Former smoker quit date: 06/05/98 pack-years: 72 second hand exposure: No alcohol intake: never substance use type: does not use Review of Systems Const CONSTITUTIONAL: Negative anorexia, body ache, chills, daytime sleepiness, fever(s), night sweats, oral thrush, stops breathing during sleep, weight loss, sleeping in chair, fatigue, weight loss, weight gain, frequent colds, seasonal allergies, other, headache(s) or orthopnea EETM Ear Nose Throat Mouth: Positive hearing normal; negative hard of hearing, hoarseness, dry mouth in morning, change in vision, itchy eyes, eye pain, swallowing Difficulty, ear pain, nose bleed, headache(s), mouth pain, nasal congestion, nasal discharge, post nasal drip, sinus pain, sinus pressure, sore throat or other Cardio Cardiovascular: Negative chest pain, chest pain at rest, chest pain with activity, irregular heart rhythm, edema, shortness of breath when lying down, palpitations, murmur or other Resp Respiratory: Positive as per HPI; negative shortness of breath, pain with cough, wheezing, chest congestion, cough, chest tightness, pain on inspiration, inhalers, increase use of rescue inhalers, snoring, apnea or other Gastro Gastrointestional: Negative bloody stools, change in appetite, difficulty swallowing, reflux, hematemesis, melena stool, loose stool, constipation or other Genitourinary: Negative blood in urine, nocturia, pain with urination or other Musc Musculoskeletal: Negative body pain, back pain, neck pain or other Skin/Breast Skin/Breast: Negative dry skin, itching, rash, unusual bruising, breast lump or other Neuro Neurological: Negative restless legs, confusion, weakness or other Psych Psychocological: Negative abnormal sleep pattern, anxiety, thoughts of hurting self/others, hopelessness or other Lymph Lymphatic: Negative easy bleeding, easy bruising, swollen lymph nodes or other Exam Const Constitutional: Positive conversant, cooperative, in no acute respiratory distress, healthy appearing, well developed, well nourished and good hygiene Head Head: Positive normocephalic and atraumatic; negative cyanosis of lips/distal nose Eyes Eye: Positive clear conjunctiva; negative nystagmus or scleral abnormality Ears Ear: Positive hearing normal and external ears normal; negative hard of hearing Nose Nose: Positive external nose normal, septum normal, no nasal discharge and other (small abraision to the left nares, no active bleeding. ); negative epistaxis, nasal polyp, clear nasal discharge or purulent nasal discharge Mouth Mouth: Positive oral mucosae normal, no lesions, dentures and crowded posterior oropharynx; negative post nasal drip, malodorous breath or oral thrush present Mallampati Score: III: Mallampati Score Neck Neck: Positive normal visual inspection, full ROM and trachea midline; negative lymphadenopathy, JVD or tender Chest Wall Chest: Positive normal inspection of the chest and symmetric chest movement; negative increased A/P diameter Resp lung sounds: Positive clear to auscultation, good air exchange, normal expiratory time and normal respiratory effort; negative diminished, wheezes, rhonchi, rales, dullness to percussion or wheeze present on forced exhalation Cardio Cardiac: Positive regular rate, regular rhythm, S1 normal and S2 normal; negative murmur GI GI: Positive normal to inspection; negative distended Genitourinary: Positive deferred Musc Musculoskeletal: Positive steady gait, ROM normal and using an assistive device for ambulation; negative kyphosis or scoliosis Skin Pulmonary Skin Exam: Positive intact and dermal atrophy; negative rash Pulses Pulse: Yes pulses normal x4 extremities Extremities Extremities: Yes capillary refill normal, No clubbing, No cyanosis, Yes edema Location: lower extremity location: Bilateral pitting +1 Neuro Neurologic: Yes conversant, Yes no focal neuro deficits, Yes normal concentration, Yes cooperative, Yes understands questions, No tremor, Yes normal cognition, Yes normal coordination Lymph Lymphatic: No lymphadenopathy, No tenderness, No cervical adenopathy Psych Appearance: Positive grossly normal, eye contact and well kempt Mental Status: Positive mental status grossly normal Mood: Positive congruent mood Affect: Positive normal affect Coding Level of Care Code Off vis,est,level 4 Diagnoses Hemoptysis R04.2 Other acute pulmonary embolism with acute cor pulmonale I26.09 Acute cor pulmonale presence: with acute cor pulmonale Chronicity: acute Pulmonary embolism type: other 05/18/18 [id number] <Electronically signed by Lourdes BAKER> Date Lourdes GALLOWAYC Cosigner Signature: Date (if applicable) CC: Brandon Cantor MD CHEST PA AND LATERAL Observed: 05/18/2018 Status: F Source: [place] 11:26 AM [facility] REPOSITORY [facility] Imaging Services [address] [place] [address] Chest PA and Lateral MR#: [id number] Acct: [id number] Name: ROHAN OLIVIA Rep #: [id number] : 1945 72 From: Henry Olmos MD PCP: Brandon Cantor MD Status: REG CLI Study: Chest PA and Lateral Date of Exam: 05/18/18 Exam# [id number] Ordering Dr: Lourdes Watson STUDY: X-RAY CHEST REASON FOR EXAM: Male, 72 years old. Cough. TECHNIQUE: Frontal and lateral views of the chest. COMPARISON: None. FINDINGS: The lungs are clear and expanded. There is no demonstrated pleural abnormality. Normal size heart. Normal mediastinum and zach. Normal visualized pulmonary arteries. There is atherosclerotic calcification of the aortic arch with tortuosity. There are diffuse degenerative changes of the visualized thoracic spine. Normal visualized ribs, clavicles, and shoulders. There is no demonstrated abnormality of the visualized soft tissue structures of the upper abdomen. RAD/Chest PA and Lateral IMPRESSION: Degenerative changes, as described above. No demonstrated acute cardiopulmonary process. Electronically Signed: Henry Olmos MD at 14:21 EST , Service support , CC: Lourdes Watson; Brandon Cantor MD Gym Instructor: Signed PULMONARY VISIT REPORT Observed: 05/11/2018 Status: F Source: [place] 6:06 AM [facility] REPOSITORY [facility] [place] [address] [place] [address] OFFICE VISIT Date of Service: 05/10/18 MR#: [id number] Acct: [id number] Name: ROHAN OLIVIA Rep #: [id number] : 1945 Provider: Ian Barragan MD Age/Sex: 72/M Location: [facility] Status: Signed Assessment AND Plan Problems 1. Other acute pulmonary embolism with acute cor pulmonale I26.09 2. Polycythemia D75.1 3. Acute diastolic heart failure I50.31 Plan Patient's pulmonary artery pressure was elevated on previous echocardiogram. Walking oximetry does show some significant desaturation despite the lack of need for supplemental oxygen. Will obtain an echocardiogram prior to next visit to ensure pulmonary pressures have normalized. Patient will need to complete at least 6 months of anticoagulation. Obtain echo prior to next visit. Continue anticoagulation. Orders Orders: Medications New: Plan Detail Follow Up 3 Months ([facility]) HPI 3 M FU: Chief Complaint: Review of test results Details: Patient is a 72-year-old male, currently under the care of Dr. Cantor, who presents for evaluation secondary to recent test results. Since last visit, patient denies any ER visits, hospitalizations or prednisone burst. Patient is currently using no inhalers. Patient overall feels that he is back to his baseline. Patient has been on Xarelto therapy since February. Patient states that he does have some difficulty remembering to take it because it is not been his normal pill case. Patient estimates that he forgets 2-3 days/week. Patient denies any complications of therapy including epistaxis, hemoptysis, melena or hematochezia. Patient is not having excessive bruising. Patient states that he has not been as active as he normally would be. Patient is having significant difficulty with calcification limiting right hip range of motion. Patient states that they may proceed with surgery in 3-6 months. Patient is not sure if he is going to move forward with it. Patient does report some sinus congestion and sneezing since the weather has turned cold. Patient states the cough may be productive of clear sputum, but this does not happen frequently. Patient denies any other constitutional symptoms such as fever, chills, nausea or vomiting. Personally reviewed with the patient Walking oximetry (04/24/2018): Ambulated 661 feet over the course of 6 minutes with significant desaturation as low as 91%. Complete PFT (05/01/2018): Within normal limits (FVC 86%, FEV1 98%, TLC 106%, DLCO 95%) Echocardiogram (02/13/2018): EF 65% with stage I diastolic dysfunction. 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 Required: No Accompanied by: Self Is patient in pain?: Yes Allergies No Known Allergies Allergy (Verified 05/10/18 10:17) Medications Amlodipine Besylate [Norvasc] 10 mg PO DAILY 01/12/17 [History Confirmed 05/10/18] Paroxetine [Paxil] 10 mg PO DAILY 01/12/17 [History Confirmed 05/10/18] Pravastatin [Pravachol] 20 mg PO QHS 01/12/17 [History Confirmed 05/10/18] Rivaroxaban [Xarelto] 20 mg PO DAILY #30 tab 01/22/18 [Rx Confirmed 05/10/18] aspirin 81 mg tablet,delayed release 81 mg PO DAILY 01/31/18 [History Confirmed 05/10/18] lorazepam 1 mg tablet 1 mg PO QD-BID PRN 01/31/18 [History Confirmed 05/10/18] gabapentin PO HS 05/10/18 [History Confirmed 05/10/18] tamsulosin 0.4 mg capsule 0.4 mg PO DAILY 05/10/18 [History Confirmed 05/10/18] PFSH Medical History Closed right hip fracture (Acute) Acute respiratory failure with hypoxia (Acute) BPH (benign prostatic hyperplasia) (Chronic) Depression (Chronic) Hypercholesterolemia (Chronic) Fall (Acute) Hypertension (Chronic) Anxiety (Chronic) Diarrhea (Chronic) Osteoarthritis (Chronic) Hyperlipidemia (Chronic) Pulmonary embolism (Acute) Polycythemia (Acute) Anxiety (Acute) Chronic respiratory failure with hypoxia (Acute) HTN (hypertension) (Chronic) Surgical History H/O colonoscopy (Resolved) History of colon surgery (Resolved) History of total right hip replacement (Resolved) reattachment of severed finger (Resolved) stoma reversal (Resolved) Family History Father Lung cancer Mother Parkinsons Heart failure Social History household members: spouse housing: house 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al status: employed 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: [employer] pets and animals: Yes pets and animals: cat(s), dog(s) Smoking Status: Former smoker quit date: 06/05/98 pack-years: 72 second hand exposure: No alcohol intake: never substance use type: does not use Review of Systems Const CONSTITUTIONAL: Negative anorexia, body ache, chills, daytime sleepiness, fever(s), night sweats, oral thrush, stops breathing during sleep, weight loss, sleeping in chair, fatigue, weight loss, weight gain, frequent colds, seasonal allergies, other, headache(s) or orthopnea EETM Ear Nose Throat Mouth: Positive hearing normal; negative hard of hearing, hoarseness, dry mouth in morning, change in vision, itchy eyes, eye pain, swallowing Difficulty, ear pain, nose bleed, headache(s), mouth pain, nasal congestion, nasal discharge, post nasal drip, sinus pain, sinus pressure, sore throat or other Cardio Cardiovascular: Negative chest pain, chest pain at rest, chest pain with activity, irregular heart rhythm, edema, shortness of breath when lying down, palpitations, murmur or other Resp Respiratory: Positive as per HPI and cough cough: Positive productive color: Positive clear; negative shortness of breath, pain with cough, wheezing, chest congestion, chest tightness, pain on inspiration, inhalers, increase use of rescue inhalers, snoring, apnea or other Gastro Gastrointestional: Negative bloody stools, change in appetite, difficulty swallowing, reflux, hematemesis, melena stool, loose stool, constipation or other Genitourinary: Negative blood in urine, nocturia, pain with urination or other Musc Musculoskeletal: Positive body pain; negative back pain, neck pain or other Skin/Breast Skin/Breast: Negative dry skin, itching, rash, unusual bruising, breast lump or other Neuro Neurological: Negative restless legs, confusion, weakness or other Psych Psychocological: Negative abnormal sleep pattern, anxiety, thoughts of hurting self/others, hopelessness or other Lymph Lymphatic: Negative easy bleeding, easy bruising, swollen lymph nodes or other Exam Const Constitutional: Positive conversant, cooperative, in no acute respiratory distress, healthy appearing, well developed, well nourished and good hygiene; negative dyspenic, appears older than stated age or smells of smoke Head Head: Positive normocephalic and atraumatic; negative cyanosis of lips/distal nose, frontal sinus tenderness or maxillary sinus tenderness Eyes Eye: Positive clear conjunctiva; negative nystagmus, scleral abnormality or cataract present Ears Ear: Positive hearing normal and external ears normal; negative hard of hearing Nose Nose: Positive external nose normal, septum normal and clear nasal discharge; negative epistaxis or nasal polyp Mouth Mouth: Positive oral mucosae normal, no lesions and crowded posterior oropharynx; negative post nasal drip, malodorous breath or oral thrush present Mallampati Score: III: Mallampati Score Neck Neck: Positive normal visual inspection, full ROM and trachea midline; negative lymphadenopathy or JVD Chest Wall Chest: Positive normal inspection of the chest and symmetric chest movement; negative crepitus or tenderness Resp lung sounds: Positive clear to auscultation, good air exchange, normal expiratory time and normal respiratory effort; negative wheezes, rhonchi, rales, use of accessory muscles, wheeze present on forced exhalation or dullness to percussion Cardio Cardiac: Positive regular rate, regular rhythm, S1 normal and S2 normal; negative murmur, rub or gallop GI GI: Positive normal to inspection and normal bowel sounds; negative distended, ascites or epigastric tenderness Genitourinary: Positive deferred Musc Musculoskeletal: Negative steady gait (Decreased range of motion of right hip), using an assistive device for ambulation, kyphosis or scoliosis Skin Pulmonary Skin Exam: Positive intact; negative rash, lesion, ulcers, erythema or dermal atrophy Pulses Pulse: Yes radial pulses present Extremities Extremities: Yes capillary refill normal, No clubbing, No cyanosis, No edema, No stasis dermatitis Neuro Neurologic: Yes conversant, Yes no focal neuro deficits, Yes normal concentration, Yes normal coordination, Yes cooperative, Yes normal cognition Lymph Lymphatic: No lymphadenopathy Psych Appearance: Positive grossly normal Mental Status: Positive mental status grossly normal Mood: Positive congruent mood Affect: Positive normal affect Coding Level of Care Code Off vis,est,level 3 Diagnoses Other acute pulmonary embolism with acute cor pulmonale I26.09 Pulmonary embolism type: other Chronicity: acute Acute cor pulmonale presence: with acute cor pulmonale Polycythemia D75.1 Acute diastolic heart failure I50.31 Heart failure chronicity: acute 05/11/18 0606 <Electronically signed by Ian Barragan MD> Date Ian Barragan MD Cosigner Signature: Date (if applicable) CC: Brandon Cantor MD PULMONARY FUNCTION Observed: 05/02/2018 Status: F Source: [place] REPORT COMP 5:47 AM [facility] [place] REPOSITORY [facility] Pulmonary Services/Neurology [address] [place] [address] MR#: [id number] Acct: [id number] Name: ROHAN OLIVIA Rep #: [id number] : 1945 72 From: Ian Barragan MD Referring Dr: Lourdes Watson NP Status: REG CLI Ordering Dr: Date: Location: [facility] Sex: M C COMPLETE PULMONARY FUNCTION TEST INTERPRETATION Brief HPI: Patient is a 72 year old male, currently under the care of myself, who presents to [facility] for complete pulmonary function tests secondary to diagnosis of dyspnea. Respiratory therapist reports good effort and reproducible results. Interpretation: Forced expiration spirometry shows no large airways obstructive ventilatory defect with an FEV1 of 98% predicted. There is no significant bronchodilator response by strict ATS criteria. Spirograms are of good quality and plateau slowly, indicating slowly emptying areas of the lungs. The respiratory flow volume loop shows a normal pattern. Lung volumes by body plethysmography show a normal total lung capacity at 6.98 L, 106% predicted. All other lung volumes are within normal limits. Diffusion capacity by carbon monoxide is normal at 95% predicted. The airway resistance is normal. No previous pulmonary function tests were available for review. Impression: These pulmonary function tests are within normal limits 05/02/18 0547 <Electronically signed by Ian Barragan MD> Date Ian Barragan MD CC: Ian Barragan MD; Lourdes Watson; Brandon Cantor MD Date Dictated: 05/01/181548 Date Transcribed: 05/01/181548 Gym Instructor: TREVIN Signed 6 MINUTE WALK TEST Observed: 04/24/2018 Status: F Source: [place] 12:35 PM [facility] [place] REPOSITORY [facility] Pulmonary Services/Neurology [address] [place] [address] MR#: [id number] Acct: [id number] Name: ROHAN OLIVIA Rep #: [id number] : 1945 72 From: Chino Alvares DO Referring Dr: Lourdes Watson NP Date: Ordering Dr: Sex: Nadiya C Location: PSN PSN 6 Minute Walk Test - 6 Minute Walk Test 6 Minute Walk Test: 6 Minute Walk Test PSN:6-Minute Walk Test Start: 04/09/18 09:36 Freq: Status: Active Protocol: [id number].[id number] Document 04/09/18 09:36 SMB (Rec: 04/09/18 09:40 SMB [id number]) 6 Minute Walk Test Date Performed 04/09/18 Time Performed 09:18 Height 5 ft 10 in Weight: 204 lb Weight in Pounds 204.[address]: Lourdes Watson Assistive device used: Cane Pre-test Oxygen Delivery Method Room Air Pulse Ox (%) 96 Pulse Rate (60-100 beats/min) 91 Dyspnea Lori Scale (0-10) 0 Exertion Lori Scale (6-20) 11 1st minute Oxygen Delivery Method Room Air Pulse Ox (%) 94 Pulse Rate (60-100 beats/min) 69 2nd minute Oxygen Delivery Method Room Air Pulse Ox (%) 95 Pulse Rate (60-100 beats/min) 83 3rd minute Pulse Ox (%) 93 Pulse Rate (60-100 beats/min) 73 4th minute Oxygen Delivery Method Room Air Pulse Ox (%) 94 Pulse Rate (60-100 beats/min) 60 5th minute Oxygen Delivery Method Room Air Pulse Ox (%) 91 Pulse Rate (60-100 beats/min) 90 6th minute Oxygen Delivery Method Room Air Pulse Ox (%) 92 Pulse Rate (60-100 beats/min) 95 Post-test Oxygen Delivery Method Room Air Pulse Ox (%) 96 Pulse Rate (60-100 beats/min) 95 Dyspnea Lori Scale (0-10) 2 Exertion Lori Scale (6-20) 13 Full Laps Walked 11 Partial Lap, Number of Tiles Walked 12 Total Distance Walked (ft) 661 - Interpretation Interpretation: The patient ambulated 661 feet over the course of 6 minutes beginning on room air with use of a cane. Pretesting oxygen saturation was noted to be 96% on room air. With ambulation, the florencia oxygen saturation was 91%. This represents a significant exertional oxygen desaturation. - Recommendations Recommendations: There is no indication for the use of supplemental oxygen at this time. However, close interval follow-up is recommended, given the degree of oxygen desaturation noted during this study. 04/24/18 1235 <Electronically signed by Chino Alvares DO> Date Chino Alvares DO CC: Date Dictated: 04/09/18 1225 Date Transcribed: 04/09/185 Gym Instructor: Chino Alvares DO Signed ERYTHROCYTE SED RATE Collected: 03/27/2018 Status: F Source: [place] 10:38 AM [facility] REPOSITORY TYPE CODE TESTS RESULT OUT OF RANGE REFERENCE UNITS LAB L102.0000 0-20 mm/hr Normal SED RATE 5 Performed By: #### L101.9900, L100.0100 #### [facility] [address] [place], [place] [address], [address] CBC W/DIFF, AUTOMATED Collected: 03/27/2018 Status: F Source: [place] 10:38 AM [facility] [place] REPOSITORY TYPE CODE TESTS RESULT OUT OF RANGE REFERENCE UNITS LAB L100.1000 4.4-11.0 K/mm3 Normal WBC 7.3 LAB L100.1200 4.6-6.2 M/mm3 Normal RBC 5.37 LAB L100.1300 13.0-16.5 g/dl Normal HGB 16.5 LAB L100.1400 40-54 % Normal HCT 49.7 LAB L100.1500 80-94 fL Normal MCV 92.6 LAB L100.1600 27.0-32.0 pg Normal MCH 30.7 LAB L100.1700 32-36 g/gl Normal MCHC 33.2 LAB L100.1810 11.6-14.6 % Normal RDW CV 14.6 LAB L100.1820 35.1-43.9 fl High RDW SD 49.3 LAB L100.1900 150-450 K/mm3 Normal PLT 199 LAB L100.2000 6.2-12.0 fl Normal MPV 10.2 LAB L100.2100 47-70 % High NEUT% 73.2 LAB L100.2200 19-41 % Low LY% 14.6 LAB L100.2300 0-10 % Normal MONO% 8.9 LAB L100.2400 0-5 % Normal EO% 2.7 LAB L100.2500 0-1 % Normal BASO% 0.5 LAB L100.2550 0.0-0.9 % Normal IM GRAN % 0.100 Result Comment: IG% - Immature Granulocytes (promyelocytes, myelocytes and metamyelocytes) > 1% indicates that a LEFT SHIFT is Present. LAB L100.2620 2.0-7.7 X10 3/uL Normal Absolute Neut 5.4 LAB L100.2720 0.83-4.51 X10 3/ul Normal Absolute Lymph 1.07 Performed By: #### L101.9900, L100.0100 #### [facility] [address] [facility]. [place], [place], [address] CRP Collected: 03/27/2018 Status: F Source: [place] 10:38 AM [facility] [place] REPOSITORY TYPE CODE TESTS RESULT OUT OF RANGE REFERENCE UNITS LAB L501.6710 0.0-3.0 mg/L Normal < 2.90 C-REACTIVE PROT Result Comment: C-Reactive Protein (CRP) provides useful information for the diagnosis, therapy and monitoring of inflammatory processes and associated diseases. For the evaluation of Relative Risk for Cardiovascular Disease, a High Sensitivity CRP (HSCRP) should be ordered. Performed By: #### L501.6710 #### [facility] [address] [place], [place], [address] PROGRESS Observed: 03/15/2018 Status: COMPLETED Source: [place] 10:12 AM [facility] RE[facility] HNO ID: [id number] Author: Delicia (Santino) Older Service: (none) Author Type: Nurse Practitioner Type: Progress Notes Filed: 03/15/2018 11:31 AM Note Text: CC: Patient presents with: F/U 6 months HPI Rohan Olivia Jr. is a 72 year old male who presents today for routine follow-up. Concerns today: numbness/tingling in feet and bowel issues. Numbness/tingling: Occurring nightly, a little bothersome. May be contributing to difficulty sleeping. Diagnosed with idiopathic peripheral neuropathy last year. No current treatment for symptoms. Change in bowels: Every since hip surgery his bowel routine has changed. Initially was constipated and taking stool softeners. Now he will go all day without a BM and then have 4-5 BM's in a row at night. Stools are small and mushy. Right hip fracture: Still having pain in the right hip and leg, slowly getting better. PT twice a week for the next four weeks. Taking Tylenol for pain with moderate relief. Appointment with ortho next week. REVIEW OF SYSTEMS General: no fevers, no chills, no night sweats, no recurrent infections, no change in appetite, no change in energy and no significant changes in weight Respiratory: no cough, no wheezing, no shortness of breath, no hemoptysis Cardiovascular: no chest pain, no chest pressure, no palpitations and no swelling GI: Negative for abdominal discomfort, blood in stools or black stools, nausea, vomiting PAST MEDICAL HISTORY Diagnosis Date - Acquired polycythemia 01/24/2013 - Actinic Keratosis (Premalignant AK) 09/05/2010 - Adenomatous colon polyp 10/09/2014 - Anxiety 06/19/2009 - BPH loc w/o Ur Obs/LUTS 06/19/2009 - Chronic bronchitis (HCC) 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 - Enterocolitis due to Clostridium difficile 05/25/2015 - Hypertension 05/04/2009 - Hyperthyroidism, subclinical 06/19/2009 - OA (osteoarthritis) of knee 01/24/2013 - Obesity 06/19/2009 - Other pulmonary embolism with acute cor pulmonale (HCC) 01/30/2018 - Panic attacks 2001 previously on Xanax - Seborrheic keratosis 06/19/2009 PAST SURGICAL HISTORY Procedure Laterality Date - COLONOSCOP W/ OR W/O [facility] SPEC 10/01/2014 Colonoscopy - COLONOSCOPY AND POLYPECTOMY 01/13/2017 - LAP STOMA CLOSURE, ILEOSTOMY 04/13/2015 closure of loop ileostomy - PAST SURGICAL HISTORY OF 1972 Right 4th digit reattachment - PAST SURGICAL HISTORY OF 01/01/2015 Rectal/sigmoid resection - RECONSTR NOSE 1954 Rhinoplasty, nasal fracture - REMOVAL OF TONSILS,<12 Y/O 1956 Tonsillectomy - TOTAL HIP JOINT REPLACEMENT Right 01/12/2018 ALLERGIES Patient has no known allergies. MEDICATIONS rivaroxaban (XARELTO) 15 mg tablet Take 15 mg by mouth daily with dinner. rivaroxaban (XARELTO) 20 mg tablet Take 20 mg by mouth daily with dinner. hydrocortisone 2.5 % cream Apply 1 application to affected area twice daily. LORazepam (ATIVAN) 1 mg tablet Take 1 tablet by mouth at bedtime as needed for Anxiety for up to 180 days. amLODIPine (NORVASC) 10 mg tablet TAKE ONE TABLET BY MOUTH ONCE DAILY PARoxetine (PAXIL) 10 mg tablet Take 1 tablet by mouth once daily. pravastatin (PRAVACHOL) 20 mg tablet Take 1 tablet by mouth daily at bedtime. ASPIRIN 81 MG TAB Take one(1) tablet daily. tamsulosin ER (FLOMAX) 0.4 mg cap FAMILY HISTORY Problem Relation Age of Onset - Psychiatry Mother Anxiety - COPD Mother - Heart Mother Heart failure, age 94 - other (Other) Mother Parkinson's - Cancer Father lung cancer, age 86 - Psychiatry Sister Panic attacks - Emphysema Maternal Grandfather 50 years working on [employer], coal smoke inhalation. - Asthma Maternal Grandfather - Colon Cancer Other Maternal 1st cousin age 40s Social History Substance Use Topics - Smoking status: Former Smoker Packs/day: 2.00 Years: 30.00 Types: Cigarettes Start date: 1964 Quit date: 07/05/1998 - Smokeless tobacco: Never Used - Alcohol use No PHYSICAL EXAM BP 112/66 Pulse 85 Temp 36.6 ?C (97.9 ?F) (Temporal Artery) Resp 16 Wt 90.3 kg (199 lb) SpO2 91% BMI 28.97 kg/m? General Appearance: well appearing, in no acute distress, alert Neck: Thyroid normal size and symmetric without palpable nodules, Neck supple, No adenopathy Lymph nodes: No supraclavicular lymphadenopathy Lungs: Lungs clear to auscultation. No wheezing, rhonchi, rales Heart: RRR without murmur, gallop, or rubs. No ectopy Abdomen: Abdomen soft, non-tender. Bowel sounds normal. Ext: no edema in LE bilaterally, diminished distal pulses, faint brownish venous stasis changes to bilateral lower legs LUNG CANCER SCREENING due on 2000 DTAP,TDAP,TD(1 - Tdap) due on 04/11/2014 ANNUAL PCP TEAM CHRONIC DISEASE VISIT due on 01/30/2019 BP CONTROLLED (<130/80) due on 01/30/2019 DIABETES SCREEN due on 03/12/2021 COLORECTAL CANCER SCREENING,SEE MODIFIER due on 01/13/2022 LIPID SCREEN due on 09/11/2022 ABDOMINAL AORTIC ANEURYSM SCREENING TOPIC Completed ADULT PREVNAR-13 Completed INFLUENZA Completed HEPATITIS C SCREENING Completed PNEUMOVAX AGE 65 AND OVER WITH 5YR LOOKBACK Completed Component Latest Ref Rng AND Units 03/12/2018 WBC 3.70 - 11.00 k/uL 7.46 RBC 4.20 - 6.00 m/uL 5.28 Hemoglobin 13.0 - 17.0 g/dL 15.8 Hematocrit 39.0 - 51.0 % 49.7 MCV 80.0 - 100.0 fL 94.1 MCH 26.0 - 34.0 pG 29.9 MCHC 30.5 - 36.0 g/dL 31.8 RDW-CV 11.5 - 15.0 % 13.9 Platelet Count 150 - 400 k/uL 200 MPV 9.0 - 12.7 fL 10.8 Neut% % 75.5 Abs Neut (ANC) 1.45 - 7.50 k/uL 5.63 Lymph% % 14.1 Abs Lymph 1.00 - 4.00 k/uL 1.05 Duval% % 7.4 Abs Duval <0.87 k/uL 0.55 Eosin% % 2.1 Abs Eosin <0.46 k/uL 0.16 Baso% % 0.9 Abs Baso <0.11 k/uL 0.07 Nucleated Reds 0 /100 WBC 0.0 Absolute nRBC <0.01 k/uL <0.01 Diff Type Auto Diff Protein, Total 6.3 - 8.0 g/dL 6.6 Albumin 3.9 - 4.9 g/dL 4.1 Calcium 8.5 - 10.2 mg/dL 9.6 Bilirubin, Total 0.2 - 1.3 mg/dL 0.6 Alkaline Phosphatase 38 - 113 U/L 109 AST 14 - 40 U/L 16 Glucose 74 - 99 mg/dL 94 BUN 9 - 24 mg/dL 14 Creatinine 0.73 - 1.22 mg/dL 0.93 Sodium 136 - 144 mmol/L 141 Potassium 3.7 - 5.1 mmol/L 4.2 Chloride 97 - 105 mmol/L 101 CO2 22 - 30 mmol/L 28 Anion Gap 9 - 18 mmol/L 12 ALT 10 - 54 U/L 10 eGFR- >60 eGFR-All Other Races . >60 TSH 0.400 - 5.500 uU/mL 0.116 (L) ASSESSMENT/PLAN: 1. Idiopathic peripheral neuropathy - ICD9: 356.9, ICD10: G60.9 (primary diagnosis) Symptoms have become bothersome - Start GABAPENTIN 100 MG CAPSULE - Call office in two weeks if no improvement 2. Insomnia, unspecified type - ICD9: 780.52, ICD10: G47.00 Partly due to neuropathy - LORAZEPAM 1 MG TABLET refilled PDMP website checked and validated. All prescriptions have been APPROPRIATELY filled. No suspicious activity was identified. 03/15/2018 by Delicia Quiñonez APRN.CUSTOMER QUALITY SPECIALIST 3. Constipation, unspecified constipation type - ICD9: 564.00, ICD10: K59.00 Start Miralax Call in two weeks if no improvement 4. Hyperthyroidism, subclinical - ICD9: 242.90, ICD10: E05.90 Asymptomatic Continue to monitor Recheck TSH, T4 and T3 in 6 months 5. Essential hypertension - ICD9: 401.9, ICD10: I10 - good control - Continue current medication(s) - Recommend home blood pressure monitoring, to bring results in on next visit - Recheck in 6 months, sooner should new symptoms or problems arise. 6. S/P right hip fracture - ICD9: V15.51, ICD10: Z87.81 Gradual improvement in pain and mobility Continue with PT and orthopedic follow-ups Prescription instructions reviewed with patient as applicable. Potential red flag symptoms discussed with the patient. Reviewed appropriate action plan to take if red flag symptoms occur. Patient agreeable to treatment plan. Delicia Quiñonez APRN.CUSTOMER QUALITY SPECIALIST CNOV Observed: 03/15/2018 Status: COMPLETED Source: [place] 10:00 AM [facility] RE[facility]IT[facility] Office Visit ([facility]) ROHAN OLIVIA JR. ([id number]) 1945 Date Time Provider Department 03/15/18 10:00 AM DELICIA QUIÑONEZ (SANTINO) IN[facility] During your visit today, we recorded the following information about you: Temperature Pulse Respiration Blood pressure 97.9 degrees 85/minute 16/minute 112/66 Weight 90.3 kg Delicia Quiñonez INSULATING MACHINE OPERATORELO 03/15/2018 11:31 AM Signed CC: Patient presents with: F/U 6 months HPI Rohan Olivia Jr. is a 72 year old male who presents today for routine follow-up. Concerns today: numbness/tingling in feet and bowel issues. Numbness/tingling: Occurring nightly, a little bothersome. May be contributing to difficulty sleeping. Diagnosed with idiopathic peripheral neuropathy last year. No current treatment for symptoms. Change in bowels: Every since hip surgery his bowel routine has changed. Initially was constipated and taking stool softeners. Now he will go all day without a BM and then have 4-5 BM's in a row at night. Stools are small and mushy. Right hip fracture: Still having pain in the right hip and leg, slowly getting better. PT twice a week for the next four weeks. Taking Tylenol for pain with moderate relief. Appointment with ortho next week. REVIEW OF SYSTEMS General: no fevers, no chills, no night sweats, no recurrent infections, no change in appetite, no change in energy and no significant changes in weight Respiratory: no cough, no wheezing, no shortness of breath, no hemoptysis Cardiovascular: no chest pain, no chest pressure, no palpitations and no swelling GI: Negative for abdominal discomfort, blood in stools or black stools, nausea, vomiting PAST MEDICAL HISTORY Diagnosis Date - Acquired polycythemia 01/24/2013 - Actinic Keratosis (Premalignant AK) 09/05/2010 - Adenomatous colon polyp 10/09/2014 - Anxiety 06/19/2009 - BPH loc w/o Ur Obs/LUTS 06/19/2009 - Chronic bronchitis (HCC) 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 - Enterocolitis due to Clostridium difficile 05/25/2015 - Hypertension 05/04/2009 - Hyperthyroidism, subclinical 06/19/2009 - OA (osteoarthritis) of knee 01/24/2013 - Obesity 06/19/2009 - Other pulmonary embolism with acute cor pulmonale (HCC) 01/30/2018 - Panic attacks 2001 previously on Xanax - Seborrheic keratosis 06/19/2009 PAST SURGICAL HISTORY Procedure Laterality Date - COLONOSCOP W/ OR W/O BRSH SPEC 10/01/2014 Colonoscopy - COLONOSCOPY AND POLYPECTOMY 01/13/2017 - LAP STOMA CLOSURE, ILEOSTOMY 04/13/2015 closure of loop ileostomy - PAST SURGICAL HISTORY OF 1972 Right 4th digit reattachment - PAST SURGICAL HISTORY OF 01/01/2015 Rectal/sigmoid resection - RECONSTR NOSE 1954 Rhinoplasty, nasal fracture - REMOVAL OF TONSILS,<12 Y/O 1956 Tonsillectomy - TOTAL HIP JOINT REPLACEMENT Right 01/12/2018 ALLERGIES Patient has no known allergies. MEDICATIONS rivaroxaban (XARELTO) 15 mg tablet Take 15 mg by mouth daily with dinner. rivaroxaban (XARELTO) 20 mg tablet Take 20 mg by mouth daily with dinner. hydrocortisone 2.5 % cream Apply 1 application to affected area twice daily. LORazepam (ATIVAN) 1 mg tablet Take 1 tablet by mouth at bedtime as needed for Anxiety for up to 180 days. amLODIPine (NORVASC) 10 mg tablet TAKE ONE TABLET BY MOUTH ONCE DAILY PARoxetine (PAXIL) 10 mg tablet Take 1 tablet by mouth once daily. pravastatin (PRAVACHOL) 20 mg tablet Take 1 tablet by mouth daily at bedtime. ASPIRIN 81 MG TAB Take one(1) tablet daily. tamsulosin ER (FLOMAX) 0.4 mg cap FAMILY HISTORY Problem Relation Age of Onset - Psychiatry Mother Anxiety - COPD Mother - Heart Mother Heart failure, age 94 - other (Other) Mother Parkinson's - Cancer Father lung cancer, age 86 - Psychiatry Sister Panic attacks - Emphysema Maternal Grandfather 50 years working on [employer], coal smoke inhalation. - Asthma Maternal Grandfather - Colon Cancer Other Maternal 1st cousin age 40s Social History Substance Use Topics - Smoking status: Former Smoker Packs/day: 2.00 Years: 30.00 Types: Cigarettes Start date: 1964 Quit date: 07/05/1998 - Smokeless tobacco: Never Used - Alcohol use No PHYSICAL EXAM BP 112/66 Pulse 85 Temp 36.6 ?C (97.9 ?F) (Temporal Artery) Resp 16 Wt 90.3 kg (199 lb) SpO2 91% BMI 28.97 kg/m? General Appearance: well appearing, in no acute distress, alert Neck: Thyroid normal size and symmetric without palpable nodules, Neck supple, No adenopathy Lymph nodes: No supraclavicular lymphadenopathy Lungs: Lungs clear to auscultation. No wheezing, rhonchi, rales Heart: RRR without murmur, gallop, or rubs. No ectopy Abdomen: Abdomen soft, non-tender. Bowel sounds normal. Ext: no edema in LE bilaterally, diminished distal pulses, faint brownish venous stasis changes to bilateral lower legs LUNG CANCER SCREENING due on 2000 DTAP,TDAP,TD(1 - Tdap) due on 04/11/2014 ANNUAL PCP TEAM CHRONIC DISEASE VISIT due on 01/30/2019 BP CONTROLLED (<130/80) due on 01/30/2019 DIABETES SCREEN due on 03/12/2021 COLORECTAL CANCER SCREENING,SEE MODIFIER due on 01/13/2022 LIPID SCREEN due on 09/11/2022 ABDOMINAL AORTIC ANEURYSM SCREENING TOPIC Completed ADULT PREVNAR-13 Completed INFLUENZA Completed HEPATITIS C SCREENING Completed PNEUMOVAX AGE 65 AND OVER WITH 5YR LOOKBACK Completed Component Latest Ref Rng AND Units 03/12/2018 WBC 3.70 - 11.00 k/uL 7.46 RBC 4.20 - 6.00 m/uL 5.28 Hemoglobin 13.0 - 17.0 g/dL 15.8 Hematocrit 39.0 - 51.0 % 49.7 MCV 80.0 - 100.0 fL 94.1 MCH 26.0 - 34.0 pG 29.9 MCHC 30.5 - 36.0 g/dL 31.8 RDW-CV 11.5 - 15.0 % 13.9 Platelet Count 150 - 400 k/uL 200 MPV 9.0 - 12.7 fL 10.8 Neut% % 75.5 Abs Neut (ANC) 1.45 - 7.50 k/uL 5.63 Lymph% % 14.1 Abs Lymph 1.00 - 4.00 k/uL 1.05 Duval% % 7.4 Abs Duval <0.87 k/uL 0.55 Eosin% % 2.1 Abs Eosin <0.46 k/uL 0.16 Baso% % 0.9 Abs Baso <0.11 k/uL 0.07 Nucleated Reds 0 /100 WBC 0.0 Absolute nRBC <0.01 k/uL <0.01 Diff Type Auto Diff Protein, Total 6.3 - 8.0 g/dL 6.6 Albumin 3.9 - 4.9 g/dL 4.1 Calcium 8.5 - 10.2 mg/dL 9.6 Bilirubin, Total 0.2 - 1.3 mg/dL 0.6 Alkaline Phosphatase 38 - 113 U/L 109 AST 14 - 40 U/L 16 Glucose 74 - 99 mg/dL 94 BUN 9 - 24 mg/dL 14 Creatinine 0.73 - 1.22 mg/dL 0.93 Sodium 136 - 144 mmol/L 141 Potassium 3.7 - 5.1 mmol/L 4.2 Chloride 97 - 105 mmol/L 101 CO2 22 - 30 mmol/L 28 Anion Gap 9 - 18 mmol/L 12 ALT 10 - 54 U/L 10 eGFR- >60 eGFR-All Other Races . >60 TSH 0.400 - 5.500 uU/mL 0.116 (L) ASSESSMENT/PLAN: 1. Idiopathic peripheral neuropathy - ICD9: 356.9, ICD10: G60.9 (primary diagnosis) Symptoms have become bothersome - Start GABAPENTIN 100 MG CAPSULE - Call office in two weeks if no improvement 2. Insomnia, unspecified type - ICD9: 780.52, ICD10: G47.00 Partly due to neuropathy - LORAZEPAM 1 MG TABLET refilled PDMP website checked and validated. All prescriptions have been APPROPRIATELY filled. No suspicious activity was identified. 03/15/2018 by Delicia Quiñonez APRN.CNP 3. Constipation, unspecified constipation type - ICD9: 564.00, ICD10: K59.00 Start Miralax Call in two weeks if no improvement 4. Hyperthyroidism, subclinical - ICD9: 242.90, ICD10: E05.90 Asymptomatic Continue to monitor Recheck TSH, T4 and T3 in 6 months 5. Essential hypertension - ICD9: 401.9, ICD10: I10 - good control - Continue current medication(s) - Recommend home blood pressure monitoring, to bring results in on next visit - Recheck in 6 months, sooner should new symptoms or problems arise. 6. S/P right hip fracture - ICD9: V15.51, ICD10: Z87.81 Gradual improvement in pain and mobility Continue with PT and orthopedic follow-ups Prescription instructions reviewed with patient as applicable. Potential red flag symptoms discussed with the patient. Reviewed appropriate action plan to take if red flag symptoms occur. Patient agreeable to treatment plan. PATRICIA Joseph APRN.CNP 03/15/2018 10:28 AM Addendum Start Miralax once a day for bowel issues. Start Gabapentin for numbness/tingling in feet. Call office if no improvement after a couple weeks. Referring Provider: DELICIA QUIÑONEZ (SANTINO) [[id number]] Allergies As of Date: 03/15/2018 (No Known Allergies) Date Reviewed: 03/15/2018 Reviewed by: Laure Jimenez Fleet Administrative Assistant - Fully Assessed Reason for Visit: F/U 6 months [1177] Primary Visit Diagnosis:Idiopathic peripheral neuropathy [G60.9] Other Visit Diagnoses:Insomnia, unspecified type [G47.00] Constipation, unspecified constipation type [K59.00] Hyperthyroidism, subclinical [E05.90] Essential hypertension [I10] S/P right hip fracture [Z87.81] Order(s):LORazepam (ATIVAN) 1 mg tabletTake 1 tablet by mouth at bedtime as needed for Anxiety for up to 180 days.Disp: 30 tabletRfl: 1 gabapentin (NEURONTIN) 100 mg capsuleTake 1 capsule by mouth daily at bedtime for 60 days.Disp: 30 capsuleRfl: 1 TSH BLD [SQTSH] Order #: [id number] FUTURE T4 FREE/FREE THYROX [SQFT4] Order #: [id number] FUTURE T3 BLD [SQT3] Order #: [id number] FUTURE Prescriptions as of 03/15/2018 Sig: LORAZEPAM 1 MG TABLET Take 1 tablet by mouth at bed* RIVAROXABAN 20 MG TABLET Take 20 mg by mouth daily wit* HYDROCORTISONE 2.5 % TOPICAL * Apply 1 application to affect* AMLODIPINE 10 MG TABLET TAKE ONE TABLET BY MOUTH ONCE* PAROXETINE 10 MG TABLET Take 1 tablet by mouth once d* PRAVASTATIN 20 MG TABLET Take 1 tablet by mouth daily * ASPIRIN 81 MG TABLET Take one(1) tablet daily. Patient taking differently: Take one(1) tablet daily BY M* TAMSULOSIN 0.4 MG CAPSULE GABAPENTIN 100 MG CAPSULE Take 1 capsule by mouth daily* Problem List As Of Date 03/15/2018 Noted Resolved Hypertension [I10] INVALID FOR* Anxiety [F41.9] INVALID FOR*10/22/2015 BPH with obstruction/lower urinary tract sympto*INVALID FOR* Obesity [E66.9] INVALID FOR* Subclinical hyperthyroidism [E05.90] INVALID FOR*06/16/2011 Seborrheic Keratoses [L82.1] INVALID FOR*07/26/2012 Actinic Damage///Sun-damaged skin [L57.8] INVALID FOR*07/26/2012 Solar lentigines [L81.4] INVALID FOR*07/26/2012 Stucco keratosis [L85.1] INVALID FOR*10/22/2015 Hyperthyroidism, subclinical [E05.90] INVALID FOR* OA (osteoarthritis) of knee [M17.10] INVALID FOR* Acquired polycythemia [D75.1] INVALID FOR* Hyperlipidemia LDL goal <100 [E78.5] INVALID FOR* Ileus, postoperative (HCC) [K91.89, K56.7] INVALID FOR*07/22/2015 Enterocolitis due to Clostridium difficile [A04*INVALID FOR*10/22/2015 Irritable bowel syndrome with diarrhea [K58.0] INVALID FOR* Flatulence [R14.3] INVALID FOR*03/16/2017 Elevated prostate specific antigen (PSA) [R97.2*INVALID FOR* Idiopathic peripheral neuropathy [G60.9] INVALID FOR* Dyspnea on exertion [R06.09] INVALID FOR* Obesity, Class I, BMI 30-34.9 [E66.9] INVALID FOR* Other pulmonary embolism with acute cor pulmona*INVALID FOR* Pulmonary hypertension (HCC) [I27.20] INVALID FOR* Gross hematuria [R31.0] INVALID FOR* Other instructions from your clinician: Start Miralax once a day for bowel issues. Start Gabapentin for numbness/tingling in feet. Call office if no improvement after a couple weeks. Prescriptions ordered this encounter Disp Refills Start End LORAZEPAM 1 MG TABLET 30 t* 1 03/15/2018 09/11/2018 Class: Print RX Route: ORAL Sig: Take 1 tablet by mouth at bedtime as needed for Anxiety for up to 180 days. GABAPENTIN 100 MG CAPSULE 30 c* 1 03/15/2018 05/14/2018 Route: ORAL Sig: Take 1 capsule by mouth daily at bedtime for 60 days. Medications Discontinued During This Encounter Terazosin HCl (HYTRIN) 10 mg capsule 30 c* 11 09/26/2017 03/15/2018 Route: ORAL Sig: Take 1 capsule by mouth daily at bedtime. Disc: Course of therapy completed rivaroxaban (XARELTO) 15 mg tablet 03/15/2018 Class: Historical Med Route: ORAL Sig: Take 15 mg by mouth daily with dinner. Disc: Reason for discontinue is not on file. LORazepam (ATIVAN) 1 mg tablet 30 t* 0 10/19/2017 03/15/2018 Class: Print RX Route: ORAL Sig: Take 1 tablet by mouth at bedtime as needed for Anxiety for up to 180 days. Disc: Reason for discontinue is not on file. Encounter Status:Closed by DELICIA QUIÑONEZ CNP on 03/15/18 CBC AND DIFFERENTIAL Collected: 03/12/2018 Status: F Source: [place] 12:42 PM [facility] REPOS[facility] TYPE CODE TESTS RESULT OUT OF REFERENCE UNITS RANGE LAB WBC 3.70-11.00 k/uL WBC 7.46 LAB RBC 4.20-6.00 m/uL RBC 5.28 LAB HGB 13.0-17.0 g/dL Hemoglobin 15.8 LAB HCT 39.0-51.0 % Hematocrit 49.7 LAB MCV 80.0-100.0 fL MCV 94.1 LAB MCH 26.0-34.0 pG MCH 29.9 LAB MCHC 30.5-36.0 g/dL MCHC 31.8 LAB RDWCV 11.5-15.0 % RDW-CV 13.9 LAB PLTCT 150-400 k/uL Platelet Count 200 LAB MPV 9.0-12.7 fL MPV 10.8 LAB ANEUT % Neut% 75.5 LAB AANEUT 1.45-7.50 k/uL Abs Neut 5.63 LAB ALYMP % Lymph% 14.1 LAB AALYMP 1.00-4.00 k/uL Abs Lymph 1.05 LAB AMONO % Duval% 7.4 LAB AAMONO <0.87 k/uL Abs Duval 0.55 LAB AEOS % Eosin% 2.1 LAB AAEOS <0.46 k/uL Abs Eosin 0.16 LAB ABASO % Baso% 0.9 LAB AABASO <0.11 k/uL Abs Baso 0.07 LAB AUNRBC 0 /100 WBC NRBCs 0.0 LAB ABNRBC <0.01 k/uL Absolute nRBC <0.01 LAB DTYP DTYPE Auto Diff Performed By: #### CBCDIF, CMP #### [facility] [address] [place] [place] [id number] COMP METABOLIC PANEL Collected: 03/12/2018 Status: F Source: [place] 12:42 PM [facility] REPOSITORY TYPE CODE TESTS RESULT OUT OF REFERENCE UNITS RANGE LAB TP 6.3-8.0 g/dL Protein, Total 6.6 LAB ALB 3.9-4.9 g/dL Albumin 4.1 LAB CA 8.5-10.2 mg/dL Calcium, Total 9.6 LAB TBIL 0.2-1.3 mg/dL Bilirubin, Total 0.6 LAB ALKP 38-113 U/L Alkaline Phosphatase 109 LAB AST 14-40 U/L AST 16 LAB GLU 74-99 mg/dL Glucose 94 Result Comment: The [place] [employer] (ADA) provides guidance for cutoff values for fasting glucose and random glucose. The ADA defines fasting as no caloric intake for at least 8 hours. Fas ting plasma glucose results between 100 to 125 mg/dL indicate increased risk for diabetes (prediabetes). Fasting plasma glucose results greater than or equal to 126 mg/dL meet the criteria for diagnosis of diabetes. In the absence of unequivocal hyperglycemia, results should be confirmed by repeat testing. In a patient with classic symptoms of hyperglycemia or hyperglycemic crisis, random plasma glucose results greater than or equal to 200 mg/dL meet the criteria for diagnosis of diabetes. Reference: Standards of Medical Care in Diabetes 2016, [place] [employer]. Diabetes Care. 2016.39(Suppl 1). LAB BUN 9-24 mg/dL BUN 14 LAB CRET 0.73-1.22 mg/dL Creatinine 0.93 LAB NA 136-144 mmol/L Sodium 141 LAB K 3.7-5.1 mmol/L Potassium 4.2 LAB CL 97-105 mmol/L Chloride 101 LAB CO2 22-30 mmol/L CO2 28 LAB AGAP 9-18 mmol/L Anion Gap 12 LAB ALT 10-54 U/L ALT 10 LAB GFRAA eGFR- Amer. >60 LAB GFRNAA . eGFR-All Other Races >60 Result Comment: eGFR (Estimated GFR) Units of measure: mL/min/1.73 meters squared eGFR is derived from the reexpressed MDRD Study equation using the following parameters: serum creatinine, age, gender and race. The creatinine assay has been calibrated to be traceable to IDMS. An eGFR <60 mL/min/1.73m2 for >3 months is consistent with chronic kidney disease. Refer to KDOQI guidelines for clinical interpretation. In patients with unstable renal function, e.g. those with acute kidney injury, the eGFR may not accurately reflect actual GFR. Performed By: #### CBCDIF, CMP #### [facility] [address], [place] [address] TSH Collected: 03/12/2018 Status: F Source: [place] 12:42 PM [facility] REPOSITORY TYPE CODE TESTS RESULT OUT OF RANGE REFERENCE UNITS LAB TSH 0.400-5.500 uU/mL Low TSH 0.116 Performed By: #### TSH #### [facility] [address] [place], [place] [address] Observed: 03/05/2018 Status: F Source: [place] CULTURE, URINE 9:40 AM [facility] REPOSITORY Urine Culture ORGANISM 1: Klebsiella oxytoca [place] Count >100,000 Klebsiella oxytoca: REACTION Amoxacillin/Clavulanic Acid $ 4 S Ampicillin $ >=32 R Ampicillin/Sulbactam $ 4 S Cefazolin $ <=4 S Cefepime $ <=1 S Ceftriaxone $ <=1 S Ciprofloxacin $ <=0.25 S ESBL - Ertapenim $$$ <=0.5 S Gentamicin $ <=1 S Imipenem *NF <=0.25 S Levofloxacin $ <=0.12 S Nitrofurantoin $ 32 S Piperacillin/Tazobactam $$ <=4 S Tobramycin $ <=1 S Trimethoprim/Sulfametho $ <=20 S (NF) indicates non-formulary drug at [facility]. Approval by Infectious Disease Specialist required before non-formulary drugs may be ordered and/or dispensed. Performed By: #### [id number] #### [facility] [address] [place], [address] CNPTOUTREACH Observed: 02/27/2018 Status: COMPLETED Source: [place] 12:00 AM [facility] RE[facility]ITORY Patient Outreach ([facility]) ROHAN OLIVIA JR. ([id number]) 1945 M Date Time Provider Department 02/27/18 BRANDON CANTOR [facility] During your visit today, we recorded the following information about you: Allergies As of Date: 02/27/2018 (No Known Allergies) Date Reviewed: 01/30/2018 Reviewed by: Renea Caraballo LPN - Fully Assessed Visit Diagnosis:Medication management [Z79.899] Order(s):TSH BLD [SQTSH] Order #: [id number] FUTURE Prescriptions as of 02/27/2018 Sig: RIVAROXABAN 20 MG TABLET Take 20 mg by mouth daily wit* HYDROCORTISONE 2.5 % TOPICAL * Apply 1 application to affect* X RIVAROXABAN 15 MG TABLET Take 15 mg by mouth daily wit* X LORAZEPAM 1 MG TABLET Take 1 tablet by mouth at bed* AMLODIPINE 10 MG TABLET TAKE ONE TABLET BY MOUTH ONCE* PAROXETINE 10 MG TABLET Take 1 tablet by mouth once d* PRAVASTATIN 20 MG TABLET Take 1 tablet by mouth daily * X TERAZOSIN 10 MG CAPSULE Take 1 capsule by mouth daily* ASPIRIN 81 MG TABLET Take one(1) tablet daily. Patient taking differently: Take one(1) tablet daily BY M* Problem List As Of Date 02/27/2018 Noted Resolved Hypertension [I10] INVALID FOR* Anxiety [F41.9] INVALID FOR*10/22/2015 BPH with obstruction/lower urinary tract sympto*INVALID FOR* Obesity [E66.9] INVALID FOR* Subclinical hyperthyroidism [E05.90] INVALID FOR*06/16/2011 Seborrheic Keratoses [L82.1] INVALID FOR*07/26/2012 Actinic Damage///Sun-damaged skin [L57.8] INVALID FOR*07/26/2012 Solar lentigines [L81.4] INVALID FOR*07/26/2012 Stucco keratosis [L85.1] INVALID FOR*10/22/2015 Hyperthyroidism, subclinical [E05.90] INVALID FOR* OA (osteoarthritis) of knee [M17.10] INVALID FOR* Acquired polycythemia [D75.1] INVALID FOR* Hyperlipidemia LDL goal <100 [E78.5] INVALID FOR* Ileus, postoperative (HCC) [K91.89, K56.7] INVALID FOR*07/22/2015 Enterocolitis due to Clostridium difficile [A04*INVALID FOR*10/22/2015 Irritable bowel syndrome with diarrhea [K58.0] INVALID FOR* Flatulence [R14.3] INVALID FOR*03/16/2017 Elevated prostate specific antigen (PSA) [R97.2*INVALID FOR* Idiopathic peripheral neuropathy [G60.9] INVALID FOR* Dyspnea on exertion [R06.09] INVALID FOR* Obesity, Class I, BMI 30-34.9 [E66.9] INVALID FOR* Other pulmonary embolism with acute cor pulmona*INVALID FOR* Pulmonary hypertension (HCC) [I27.20] INVALID FOR* Gross hematuria [R31.0] INVALID FOR* Encounter Status:Closed by HANNA PRODUSER on 03/30/18 ECHO, COMPLETE W/ Observed: 02/13/2018 Status: F Source: [place] 4:42 PM [facility] REPOSITORY [facility] Cardiovascular Services [address] [place] [address] Echo Complete 02/13/18 1414 MR#: [id number] Acct: [id number] Name: ROHAN OLIVIA Rep #: [id number] : 1945 72 From: Darryl Harding MD Attending Dr: Lourdes Watson FUNCTIONAL TESTER Status: REG CLI Ordering Dr: Lourdes Watson FUNCTIONAL TESTER-C Date: 02/13/18 Location: [facility] Sex: M C Admitted: Reason For Study: EMBOLI Procedure This was a 2D Doppler, Color Flow transthoracic echocardiogram. Exam performed in department. Left Ventricle Normal LV size. Left ventricular systolic function is normal. The estimated ejection fraction is 65 %. Stage 1 diastolic dysfunction. No regional wall motion abnormalities noted. Right Ventricle Normal RV size. Normal systolic function. Atria Normal left atrium. Normal right atrium. Mitral Valve Normal mitral valve. Tricuspid Valve Normal tricuspid valve. Mild to moderate (1-2+) tricuspid valve insufficiency. Pulmonary artery systolic pressure is 42 mmHg. Aortic Valve Normal aortic valve. Trisinus/trileaflet aortic valve. Pulmonic Valve Normal pulmonic valve. Great Vessels Normal aortic root. The pulmonary artery is normal size. Normal inferior vena cava. Pericardium/Pleural No pericardial effusion. MMode/2D Measurements AND Calculations LVIDd: 4.2 cm IVSd: 1.1 cm Ao root diam: 3.5 cm LVIDs: 2.9 cm LVPWd: 1.1 cm RVDd: 4.2 cm FS: 32.4 % LAV(MOD-sp4): 47.9 ml LA A4 area: 17.0 cm2 RA A4 area: 14.6 cm2 Time Measurements MV dec time: 0.27 sec Doppler Measurements AND Calculations MV E max maegan: 82.7 cm/sec Lat Peak E' Maegan: 11.1 cm/sec Med Peak E' Maegan: 5.8 cm/sec MV A max maegan: 104.6 cm/sec E/E' lat: 7.5 E/E' med: 14.4 MV E/A: 0.79 Ao V2 max: 149.3 cm/sec LV V1 max: 135.8 cm/sec PA V2 max: 127.9 cm/sec Ao max P.9 mmHg LV V1 max P.4 mmHg PI end-d maegan: 202.1 cm/sec TR max maegan: 309.1 cm/sec TR max P.7 mmHg Interpretation Summary Normal LV size. Left ventricular systolic function is normal. The estimated ejection fraction is 65 %. Stage 1 diastolic dysfunction. Mild to moderate (1-2+) tricuspid valve insufficiency. Pulmonary artery systolic pressure is 42 mmHg. Ordering Physician: LOURDES WATSON Referring Physician: BRANDON CANTOR Performed By: Gilma Chaudhry, WAGNERCS, RVT 02/13/18 164 Date Darryl Harding MD CC: Lourdes Watson; Brandon Cantor MD Date Dictated: 02/13/18 1414 Date Transcribed: 02/13/181640 Gym Instructor: Signed PULMONARY VISIT REPORT Observed: 01/31/2018 Status: F Source: [place] 10:02 AM [facility] REPOSITORY [facility] [place] [address] [place] [address] OFFICE VISIT Date of Service: 01/31/18 MR#: [id number] Acct: [id number] Name: ROHAN OLIVIA Rep #: [id number] : 1945 Provider: Lourdes Watson Age/Sex: 72/M Location: [email or web address] Status: Signed Assessment AND Plan 1. Acute diastolic heart failure I50.31 Plan Symptoms stable, repeat echocardiogram in 3 months prior to follow-up with Dr. Barragan. At the follow-up visit will be determined whether or not to continue the anticoagulation for 3 months versus 6 months. The patient has been encouraged to contact the office with any new or worsening symptoms in the meantime. 2. Acute respiratory failure with hypoxia J96.01 Plan Was discharged after completing a successful walking oximetry in the hospital, is not currently on any supplemental oxygen. We will repeat a pulmonary stress test in 3 months prior to follow-up with Dr. Barragan. Orders Orders: 3. Other acute pulmonary embolism with acute cor pulmonale I26.09 Plan Continue Xarelto, plan for a PFT and a walking oximetry, in addition to repeat echocardiogram in 3 months prior to follow-up with Dr. Barragan. Plan Detail Other Orders Orders: Other Medications Discontinued: calcium carbonate Discontinued Rea1,000 mg (5 x 200 mg calcium (500 mg) Lynnette Zaldivar son: Pt no longer taking ) PO Q4H PRN PRN Indigestion Follow Up 3 Months (BWA) HPI HPI Comments Details: This is a 72 year old very pleasant m, currently under the care of Brandon Cantor, here to follow up after a recent hospitalization at [facility], from January 11 - January 16, 2018 for closed right hip fracture status post fall with repair, acute respiratory failure with hypoxia secondary to pulmonary embolism. The hospital stay was complicated by acute hypoxia requiring supplemental oxygen. 13 pages of hospital documentation was reviewed, and found to be significant for hip x-ray completed on January 11 showing a right proximal femoral subcapital acute fracture, chest x-ray from January 11 showing diffuse pulmonary interstitial prominence, CTA from January 12, 2018 showing small bilateral pleural effusion overlying atelectasis, mild pulmonary vascular congestion, mediastinal lymphadenopathy. Echocardiogram showed stage I diastolic dysfunction with an EF of 75%, the right ventricle was noted to be moderately dilated with mild to moderate global RV systolic dysfunction and evidence of severe pulmonary hypertension with a right ventricular systolic pressure estimated to be 60 mmHg, lower extremity Dopplers were negative for DVT. Upon discharge, the patient placed on the Xarelto starter pack. Today, he presents the office ambulatory with the assistance of a wheeled walker. He is currently on room air. He reports that his shortness of breath has improved significantly. He does report that occasionally on an elevated surface with ambulation he becomes somewhat dyspneic. He denies any chest pain or palpitations. He denies any cough, sputum production or hemoptysis. There is some noted hematuria in the Crawford catheter collection bag. He denies any fever, chills or body aches. He reports that previously he did follow with a director systems, has had pulmonary function test in the past. Per his own words his lung function was pretty good for his age and weight. He does have a pretty significant smoking history of 2 packs per day for 36 years, but is not currently a smoker. He reports compliance with the Xarelto 15 mg twice daily dosing, he does have a prescription for the maintenance dosing of 20 mg daily. He is not currently on any inhalers. See complete review of systems. 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 Dishwasher Required: No Accompanied by: Self Is patient in pain?: Yes Allergies No Known Allergies Allergy (Verified 01/31/18 09:07) Medications Amlodipine Besylate [Norvasc] 10 mg PO DAILY 01/12/17 [History Confirmed 01/31/18] Paroxetine [Paxil] 10 mg PO DAILY 01/12/17 [History Confirmed 01/31/18] Pravastatin [Pravachol] 20 mg PO QHS 01/12/17 [History Confirmed 01/31/18] Terazosin HCl 10 mg PO QHS 01/12/17 [History Confirmed 01/31/18] Ergocalciferol [Vitamin D] 50,000 unit PO Q7D 01/17/18 [History Confirmed 01/31/18] Rivaroxaban [Xarelto] 15 mg PO BIDCM #22 tab 01/22/18 [Rx Confirmed 01/31/18] Rivaroxaban [Xarelto] 20 mg PO DAILY #30 tab 01/22/18 [Rx] aspirin 81 mg tablet,delayed release 81 mg PO DAILY 01/31/18 [History Confirmed 01/31/18] lorazepam 1 mg tablet 1 mg PO QD-BID PRN 01/31/18 [History Confirmed 01/31/18] meloxicam 15 mg tablet 15 mg PO DAILY PRN 01/31/18 [History Confirmed 01/31/18] [facility] Medical History Closed right hip fracture (Acute) Acute respiratory failure with hypoxia (Acute) BPH (benign prostatic hyperplasia) (Chronic) Depression (Chronic) Hypercholesterolemia (Chronic) Fall (Acute) Hypertension (Chronic) Anxiety (Chronic) Diarrhea (Chronic) Osteoarthritis (Chronic) Hyperlipidemia (Chronic) Pulmonary embolism (Acute) Polycythemia (Acute) Anxiety (Acute) Chronic respiratory failure with hypoxia (Acute) HTN (hypertension) (Chronic) Surgical History H/O colonoscopy (Resolved) History of colon surgery (Resolved) reattachment of severed finger (Resolved) stoma reversal (Resolved) Family History Father Lung cancer Mother Parkinsons Heart failure Social History household members: spouse housing: house 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al status: employed 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: O pets and animals: Yes pets and animals: cat(s), dog(s) Smoking Status: Former smoker quit date: 06/05/98 pack-years: 72 second hand exposure: No alcohol intake: never substance use type: does not use Review of Systems Const CONSTITUTIONAL: Negative anorexia, body ache, chills, daytime sleepiness, fever(s), night sweats, oral thrush, stops breathing during sleep, weight loss, sleeping in chair, fatigue, weight loss, weight gain, frequent colds, seasonal allergies, other, headache(s) or orthopnea EETM Ear Nose Throat Mouth: Positive hearing normal; negative hard of hearing, hoarseness, dry mouth in morning, change in vision, itchy eyes, eye pain, swallowing Difficulty, ear pain, nose bleed, headache(s), mouth pain, nasal congestion, nasal discharge, post nasal drip, sinus pain, sinus pressure, sore throat or other Cardio Cardiovascular: Negative chest pain, chest pain at rest, chest pain with activity, irregular heart rhythm, edema, shortness of breath when lying down, palpitations, murmur or other Resp Respiratory: Positive as per HPI; negative shortness of breath, pain with cough, wheezing, chest congestion, cough, chest tightness, pain on inspiration, inhalers, increase use of rescue inhalers, snoring, apnea or other Gastro Gastrointestional: Negative bloody stools, change in appetite, difficulty swallowing, reflux, hematemesis, melena stool, loose stool, constipation or other Genitourinary: Negative blood in urine, nocturia, pain with urination or other Musc Musculoskeletal: Positive body pain; negative back pain, neck pain or other Skin/Breast Skin/Breast: Negative dry skin, itching, rash, unusual bruising, breast lump or other Neuro Neurological: Positive weakness; negative restless legs, confusion or other Psych Psychocological: Negative abnormal sleep pattern, anxiety, thoughts of hurting self/others, hopelessness or other Lymph Lymphatic: Negative easy bleeding, easy bruising, swollen lymph nodes or other Exam Const Constitutional: Positive conversant, cooperative, in no acute respiratory distress, healthy appearing, well developed, well nourished and good hygiene Head Head: Positive normocephalic and atraumatic; negative cyanosis of lips/distal nose Eyes Eye: Positive clear conjunctiva; negative nystagmus or scleral abnormality Ears Ear: Positive hearing normal and external ears normal; negative hard of hearing Nose Nose: Positive external nose normal and no nasal discharge; negative epistaxis Mouth Mouth: Positive oral mucosae normal, no lesions, edentulous and posterior oropharynx is adequate; negative post nasal drip, oral thrush present or malodorous breath Mallampati Score: II: Mallampati Score Neck Neck: Positive normal visual inspection, full ROM and trachea midline; negative lymphadenopathy, JVD or tender Chest Wall Chest: Positive normal inspection of the chest and symmetric chest movement; negative increased A/P diameter Resp lung sounds: Positive clear to auscultation, good air exchange, normal expiratory time and normal respiratory effort; negative diminished, wheezes, rhonchi, rales, dullness to percussion or wheeze present on forced exhalation Cardio Cardiac: Positive regular rate, regular rhythm, S1 normal and S2 normal; negative murmur GI GI: Positive normal to inspection and normal bowel sounds; negative distended Genitourinary: Positive deferred Musc Musculoskeletal: Positive steady gait, ROM normal and using an assistive device for ambulation; negative kyphosis or scoliosis Skin Pulmonary Skin Exam: Positive intact; negative rash, lesion, ulcers or erythema Pulses Pulse: Yes pulses normal x4 extremities Extremities Extremities: Yes capillary refill normal, No clubbing, No cyanosis, No edema Neuro Neurologic: Yes conversant, Yes no focal neuro deficits, Yes normal concentration, Yes understands questions, Yes cooperative, Yes normal cognition, Yes normal coordination Lymph Lymphatic: No lymphadenopathy, No tenderness, No cervical adenopathy, No axillary adenopathy Psych Appearance: Positive grossly normal, eye contact and well kempt Mental Status: Positive mental status grossly normal Mood: Positive congruent mood Affect: Positive normal affect Coding Level of Care Code Off vis,est,level 4 Diagnoses Acute diastolic heart failure I50.31 Heart failure chronicity: acute Acute respiratory failure with hypoxia J96.01 Other acute pulmonary embolism with acute cor pulmonale I26.09 Pulmonary embolism type: other Chronicity: acute Acute cor pulmonale presence: with acute cor pulmonale 01/31/18 1002 <Electronically signed by Lourdes BAKER> Date Lourdes BAKER Cosigner Signature: Date (if applicable) CC: Brandon Cantor MD PROGRESS Observed: 01/30/2018 Status: COMPLETED Source: [place] 5:05 PM [facility] RE[facility]IT[facility] O ID: [id number] Author: Brandon Cantor Service: (none) Author Type: Physician Type: Progress Notes Filed: 01/30/2018 11:52 PM Note Text: Transitional Care Management Progress Note The patients TCM visit was performed within the 7 days of discharge. Patient's Date of discharge: 01/25/2018 Date of initial coordinator contact after discharge: 01/25/2018 Discharge diagnosis: Right total hip arthoplasty complicated by hypoemia Medication review completed Yes Renea Caraballo LPN TRANSITION CARE MANAGEMENT (TCM) INITIAL CONTACT Flight Control Tower Operator Outreach ? Provider Action/FYI: ? ? ? Initial contact with patient post discharge, spoke to patient. Patient identified by name and . ? ? ? SUMMARY: -Pt discharged from [facility] on 01/25/18. -Admitted for: fall,fracture right hip,replacement, post op hypoxemia and pulmonary embolism ? Do you have a hospital follow up appointment with your PCP? Appointment on 01/30/18 with pcp. Yes. Remind patient of appointment date, time, and location. If not within 14 calendar days of discharge - please reschedule accordingly. Pt says is seeing ortho 01/29/18 He has physical therapy arranged at [facility]. He is seeing Dr. Connolly 02/01/18. At this time he has an indwelling cathter. He reports they told him he has no urinary infection. He is seeing pulmonary 02/01/18. ? MEDICATIONS: Many patients have questions or concerns about their medications once they are home. Were you prescribed any new medications? Yes rivaroxaban 15 mg twice daily #22 when completed start 20 mg daily. ? Were you told to hold any medications? No Were any of your medications discontinued? No although on our med list pt says not taking imodium,hasn't needed for a long time. Not taking lorazepam,hasn't needed for a long time. Not taking meloxicam,hasn't needed for a long time. ? Do you have any questions about getting or taking your medications? No ? Your discharge instructions/After visit Summary (AVS) are important in guiding you through the recovery process. Is there anything I might help you understand? No ? Do you have all the necessary equipment and supplies at home? Yes ? Medical records from recent hospitalization: Placed for provider to review Transitional Care Management Progress Note The patients TCM visit was performed within the 7 days of discharge. Patient's Date of discharge: Date of initial coordinator contact after discharge: 2017 Discharge diagnosis: Fall, pulmonary embolism, polycythemia. Medication review completed Yes Provider Documentation: In follow-up of hospitalization, Rohan Olivia Jr. is a 72 year old male with the chief complaint of follow up after TCU discharge. HPI: Rohan Olivia Jr. Fell at home and fractured his right hip. He was admitted and found to be hypoxemic. Right total hip replacement was done January 12. Work up of hypoxemia was felt to be most consistent with pulmonary embolism with acute cor pulmonale. Embolus or deep vein thrombosis was not found but severe pulmonary hypertension was found on echo. He was discharged to TCU -. Oxygen was weaned off. He was now ambulatory with a walker with little hip pain. He continue on Xarelto twice daily until he starts once daily dose. Prior to discharge, he developed urine retention, traumatic crawford catheterization, hematuria, and was discharged on indwelling catheter. He was doing physical therapy at [facility]. He was scheduled to see pulmonary tomorrow, and urology February 01. PAST MEDICAL HISTORY: Reviewed and updated PAST SURGICAL HISTORY: Reviewed and updated. ALLERGIES: Reviewed and updated MEDICATIONS: Reviewed and updated SOCIAL HISTORY: Reviewed and updated FAMILY HISTORY: Reviewed and updated REVIEW OF SYSTEMS: GENERAL: No weight loss, malaise or fevers RESPIRATORY: Negative. CARDIOVASCULAR: Negative for chest pain, leg swelling, palpitations GI: No nausea, vomiting, or diarrhea and Negative for blood in stools or black stools : Negative for dysuria. Indwelling crawford in place. MUSCULOSKELETAL: Residual right hip pain. SKIN: Negative for wounds. HEMATOLOGY/LYMPHOLOGY: Negative for prolonged bleeding, bruising easily or swollen nodes NEURO: General weakness. All other systems reviewed and negative, other than HPI. Current Outpatient Prescriptions: rivaroxaban (XARELTO) 15 mg tablet Take 15 mg by mouth daily with dinner. rivaroxaban (XARELTO) 20 mg tablet Take 20 mg by mouth daily with dinner. hydrocortisone 2.5 % cream Apply 1 application to affected area twice daily. LORazepam (ATIVAN) 1 mg tablet Take 1 tablet by mouth at bedtime as needed for Anxiety for up to 180 days. amLODIPine (NORVASC) 10 mg tablet TAKE ONE TABLET BY MOUTH ONCE DAILY Terazosin HCl (HYTRIN) 10 mg capsule Take 1 capsule by mouth daily at bedtime. PARoxetine (PAXIL) 10 mg tablet Take 1 tablet by mouth once daily. pravastatin (PRAVACHOL) 20 mg tablet Take 1 tablet by mouth daily at bedtime. ASPIRIN 81 MG TAB Take one(1) tablet daily. (Patient taking differently: Take one(1) tablet daily BY MOUTH.) No current facility-administered medications for this visit. PHYSICAL EXAMINATION BP 114/60 Pulse 76 Temp (Src) 98.7 (Left Tympanic) Resp 12 Wt 204 lb (92.5kg) SpO2 96% General appearance: ambulatory with walker, alert and in no acute distress Lungs: clear to auscultation Heart: RRR without murmur, gallop, or rubs. No ectopy Abdomen: Abdomen soft, non-tender. No masses, organomegaly : Indwelling crawford with reddish urine. Extremities: Edema: 1-2+. No cords. No calf tenderness. Anel's sign negative. 1. I have reviewed the patient record including associated test results during the last hospitalization Yes 2. I have reviewed Lab test Yes 3. I have reviewed Radiology test Yes 4. I reviewed assessment/plan with the patient/family member Yes ASSESSMENT/PLAN 1. Other acute pulmonary embolism with acute cor pulmonale (HCC) - ICD9: 415.19, 415.0, ICD10: I26.09 (primary diagnosis) Presumptive PE. Xarelto recommended for 6 months. Follow up with Dr. Ian Barragan tomorrow. 2. Pulmonary hypertension (HCC) - ICD9: 416.8, ICD10: I27.20 See #1. - CBC + DIFF - COMP METABOLIC PANEL 3. Essential hypertension - ICD9: 401.9, ICD10: I10 - good control - Continue current medication(s) 4. BPH with obstruction/lower urinary tract symptoms - ICD9: 600.01, 599.69, ICD10: N40.1, N13.[address] Connolly in 2 days. 5. Gross hematuria - ICD9: 599.71, ICD10: R31.0 Advise ER for worsening bleeding. Consider holding Xarelto if worse. 6. S/P hip replacement, right - ICD9: V43.64, ICD10: Z96.641 PT ongoing and orthopedics follow up. I have reviewed the patient?s last hospital course including diagnostic testing performed during this hospitalization, their discharge medications, and my assessment and plan with the patient and any family members present at today?s visit. Brandon Cantor MD CNOV Observed: 01/30/2018 Status: COMPLETED Source: [place] 4:40 PM [facility] RE[facility] Office Visit (INTMWS) ROHAN OLIVIA JR. ([id number]) 1945 M Date Time Provider Department 01/30/18 4:40 PM BRANDON CANTOR During your visit today, we recorded the following information about you: Temperature Pulse Respiration Blood pressure 98.7 degrees 76/minute 12/minute 114/60 Weight 92.5 kg Brandon Cantor MD 01/30/2018 11:52 PM Signed Transitional Care Management Progress Note The patients TCM visit was performed within the 7 days of discharge. Patient's Date of discharge: 01/25/2018 Date of initial coordinator contact after discharge: 01/25/2018 Discharge diagnosis: Right total hip arthoplasty complicated by hypoemia Medication review completed Yes Renea Caraballo LPN TRANSITION CARE MANAGEMENT (TCM) INITIAL CONTACT Flight Control Tower Operator Outreach ? Provider Action/FYI: ? ? ? Initial contact with patient post discharge, spoke to patient. Patient identified by name and . ? ? ? SUMMARY: -Pt discharged from [facility] on 01/25/18. -Admitted for: fall,fracture right hip,replacement, post op hypoxemia and pulmonary embolism ? Do you have a hospital follow up appointment with your PCP? Appointment on 01/30/18 with pcp. Yes. Remind patient of appointment date, time, and location. If not within 14 calendar days of discharge - please reschedule accordingly. Pt says is seeing ortho 01/29/18 He has physical therapy arranged at [facility]. He is seeing Dr. Connolly 02/01/18. At this time he has an indwelling cathter. He reports they told him he has no urinary infection. He is seeing pulmonary 02/01/18. ? MEDICATIONS: Many patients have questions or concerns about their medications once they are home. Were you prescribed any new medications? Yes rivaroxaban 15 mg twice daily #22 when completed start 20 mg daily. ? Were you told to hold any medications? No Were any of your medications discontinued? No although on our med list pt says not taking imodium,hasn't needed for a long time. Not taking lorazepam,hasn't needed for a long time. Not taking meloxicam,hasn't needed for a long time. ? Do you have any questions about getting or taking your medications? No ? Your discharge instructions/After visit Summary (AVS) are important in guiding you through the recovery process. Is there anything I might help you understand? No ? Do you have all the necessary equipment and supplies at home? Yes ? Medical records from recent hospitalization: Placed for provider to review Transitional Care Management Progress Note The patients TCM visit was performed within the 7 days of discharge. Patient's Date of discharge: Date of initial coordinator contact after discharge: 2017 Discharge diagnosis: Fall, pulmonary embolism, polycythemia. Medication review completed Yes Provider Documentation: In follow-up of hospitalization, Rohan Olivia Jr. is a 72 year old male with the chief complaint of follow up after TCU discharge. HPI: Rohan Olivia Jr. Fell at home and fractured his right hip. He was admitted and found to be hypoxemic. Right total hip replacement was done January 12. Work up of hypoxemia was felt to be most consistent with pulmonary embolism with acute cor pulmonale. Embolus or deep vein thrombosis was not found but severe pulmonary hypertension was found on echo. He was discharged to TCU -. Oxygen was weaned off. He was now ambulatory with a walker with little hip pain. He continue on Xarelto twice daily until he starts once daily dose. Prior to discharge, he developed urine retention, traumatic crawford catheterization, hematuria, and was discharged on indwelling catheter. He was doing physical therapy at [facility]. He was scheduled to see pulmonary tomorrow, and urology February 01. PAST MEDICAL HISTORY: Reviewed and updated PAST SURGICAL HISTORY: Reviewed and updated. ALLERGIES: Reviewed and updated MEDICATIONS: Reviewed and updated SOCIAL HISTORY: Reviewed and updated FAMILY HISTORY: Reviewed and updated REVIEW OF SYSTEMS: GENERAL: No weight loss, malaise or fevers RESPIRATORY: Negative. CARDIOVASCULAR: Negative for chest pain, leg swelling, palpitations GI: No nausea, vomiting, or diarrhea and Negative for blood in stools or black stools : Negative for dysuria. Indwelling crawford in place. MUSCULOSKELETAL: Residual right hip pain. SKIN: Negative for wounds. HEMATOLOGY/LYMPHOLOGY: Negative for prolonged bleeding, bruising easily or swollen nodes NEURO: General weakness. All other systems reviewed and negative, other than HPI. Current Outpatient Prescriptions: rivaroxaban (XARELTO) 15 mg tablet Take 15 mg by mouth daily with dinner. rivaroxaban (XARELTO) 20 mg tablet Take 20 mg by mouth daily with dinner. hydrocortisone 2.5 % cream Apply 1 application to affected area twice daily. LORazepam (ATIVAN) 1 mg tablet Take 1 tablet by mouth at bedtime as needed for Anxiety for up to 180 days. amLODIPine (NORVASC) 10 mg tablet TAKE ONE TABLET BY MOUTH ONCE DAILY Terazosin HCl (HYTRIN) 10 mg capsule Take 1 capsule by mouth daily at bedtime. PARoxetine (PAXIL) 10 mg tablet Take 1 tablet by mouth once daily. pravastatin (PRAVACHOL) 20 mg tablet Take 1 tablet by mouth daily at bedtime. ASPIRIN 81 MG TAB Take one(1) tablet daily. (Patient taking differently: Take one(1) tablet daily BY MOUTH.) No current facility-administered medications for this visit. PHYSICAL EXAMINATION BP 114/60 Pulse 76 Temp (Src) 98.7 (Left Tympanic) Resp 12 Wt 204 lb (92.5kg) SpO2 96% General appearance: ambulatory with walker, alert and in no acute distress Lungs: clear to auscultation Heart: RRR without murmur, gallop, or rubs. No ectopy Abdomen: Abdomen soft, non-tender. No masses, organomegaly : Indwelling crawford with reddish urine. Extremities: Edema: 1-2+. No cords. No calf tenderness. Anel's sign negative. 1. I have reviewed the patient record including associated test results during the last hospitalization Yes 2. I have reviewed Lab test Yes 3. I have reviewed Radiology test Yes 4. I reviewed assessment/plan with the patient/family member Yes ASSESSMENT/PLAN 1. Other acute pulmonary embolism with acute cor pulmonale (HCC) - ICD9: 415.19, 415.0, ICD10: I26.09 (primary diagnosis) Presumptive PE. Xarelto recommended for 6 months. Follow up with Dr. Ian Barragan tomorrow. 2. Pulmonary hypertension (HCC) - ICD9: 416.8, ICD10: I27.20 See #1. - CBC + DIFF - COMP METABOLIC PANEL 3. Essential hypertension - ICD9: 401.9, ICD10: I10 - good control - Continue current medication(s) 4. BPH with obstruction/lower urinary tract symptoms - ICD9: 600.01, 599.69, ICD10: N40.1, N13.[address] Connolly in 2 days. 5. Gross hematuria - ICD9: 599.71, ICD10: R31.0 Advise ER for worsening bleeding. Consider holding Xarelto if worse. 6. S/P hip replacement, right - ICD9: V43.64, ICD10: Z96.641 PT ongoing and orthopedics follow up. I have reviewed the patient?s last hospital course including diagnostic testing performed during this hospitalization, their discharge medications, and my assessment and plan with the patient and any family members present at today?s visit. Brandon Cantor MD Referring Provider: SELF [[id number]] Allergies As of Date: 01/30/2018 (No Known Allergies) Date Reviewed: 01/30/2018 Reviewed by: Renea Caraballo LPN - Fully Assessed Reason for Visit: [facility] f/u [Other] Primary Visit Diagnosis:Other acute pulmonary embolism with acute cor pulmonale (HCC) [I26.09] Other Visit Diagnoses:Pulmonary hypertension (HCC) [I27.20] Essential hypertension [I10] BPH with obstruction/lower urinary tract symptoms [N40.1, N13.8] Gross hematuria [R31.0] S/P hip replacement, right [Z96.641] Order(s):CBC + DIFF [SQCBCDIF] Order #: [id number] FUTURE COMP METABOLIC PANEL [SQCMP] Order #: [id number] FUTURE Prescriptions as of 01/30/2018 Sig: RIVAROXABAN 15 MG TABLET Take 15 mg by mouth daily wit* RIVAROXABAN 20 MG TABLET Take 20 mg by mouth daily wit* HYDROCORTISONE 2.5 % TOPICAL * Apply 1 application to affect* LORAZEPAM 1 MG TABLET Take 1 tablet by mouth at bed* AMLODIPINE 10 MG TABLET TAKE ONE TABLET BY MOUTH ONCE* TERAZOSIN 10 MG CAPSULE Take 1 capsule by mouth daily* PAROXETINE 10 MG TABLET Take 1 tablet by mouth once d* PRAVASTATIN 20 MG TABLET Take 1 tablet by mouth daily * ASPIRIN 81 MG TABLET Take one(1) tablet daily. Patient taking differently: Take one(1) tablet daily BY M* Medication notes this encounter RIVAROXABAN 15 MG TABLET >> Renea Caraballo LPN 01/30/2018 4:58 PM >> RENEA CARABALLO LPN MonJan 30, 2018 4:58 PM Currently taking. RIVAROXABAN 20 MG TABLET >> Renea E Rashmi WASTEWATER TREATMENT SUPERVISOR 01/30/2018 4:58 PM >> RASHMIRENEA E WASTEWATER TREATMENT SUPERVISOR MonJan 30, 2018 4:58 PM Held, until finished w/Xarelto 15mg BID Problem List As Of Date 01/30/2018 Noted Resolved Hypertension [I10] INVALID FOR* Anxiety [F41.9] INVALID FOR*10/22/2015 BPH with obstruction/lower urinary tract sympto*INVALID FOR* Obesity [E66.9] INVALID FOR* Subclinical hyperthyroidism [E05.90] INVALID FOR*06/16/2011 Seborrheic Keratoses [L82.1] INVALID FOR*07/26/2012 Actinic Damage///Sun-damaged skin [L57.8] INVALID FOR*07/26/2012 Solar lentigines [L81.4] INVALID FOR*07/26/2012 Stucco keratosis [L85.1] INVALID FOR*10/22/2015 Hyperthyroidism, subclinical [E05.90] INVALID FOR* OA (osteoarthritis) of knee [M17.10] INVALID FOR* Acquired polycythemia [D75.1] INVALID FOR* Hyperlipidemia LDL goal <100 [E78.5] INVALID FOR* Ileus, postoperative (HCC) [K91.89, K56.7] INVALID FOR*07/22/2015 Enterocolitis due to Clostridium difficile [A04*INVALID FOR*10/22/2015 Irritable bowel syndrome with diarrhea [K58.0] INVALID FOR* Flatulence [R14.3] INVALID FOR*03/16/2017 Elevated prostate specific antigen (PSA) [R97.2*INVALID FOR* Idiopathic peripheral neuropathy [G60.9] INVALID FOR* Dyspnea on exertion [R06.09] INVALID FOR* Obesity, Class I, BMI 30-34.9 [E66.9] INVALID FOR* Other pulmonary embolism with acute cor pulmona*INVALID FOR* Pulmonary hypertension (HCC) [I27.20] INVALID FOR* Gross hematuria [R31.0] INVALID FOR* Medications Discontinued During This Encounter meloxicam (MOBIC) 15 mg tablet 90 t* 3 01/23/2017 01/30/2018 Sig: take 1 tablet by mouth once daily if needed for KNEE PAIN WITH FOOD Patient not taking: Reported on 01/30/2018 Disc: Discontinued by another Health Care Provider Loperamide HCl (IMODIUM) 2 mg tab 240 * 2 05/13/2015 01/30/2018 Route: ORAL Sig: Take 1 tablet by mouth four times daily as needed. Take 1-2 tabs by mouth 1/2 hour before meals and at bedtime as needed for diarrhea Patient not taking: Reported on 01/30/2018 Disc: .All criteria met for discontinuation Disposition: Return if symptoms worsen or fail to improve. Follow-up and Disposition History Recorded Encounter Status:Closed by BRANDON CANTOR MD on 01/30/18 CNCO Observed: 01/30/2018 Status: COMPLETED Source: [place] 12:00 AM [facility] REPOSITORY Letter Text Rohan Olivia [address] [facility] [address] 01/30/2018 [facility] #: [id number] Dear , Due to a change in the provider's schedule it has been necessary to reschedule your Appointment. Your original appointment was scheduled for March 15, 2018 at 10 AM with Brandon Cantor M.D. Your new appointment is now scheduled on March 15, 2018 at 10 AM with MALCOLM Joseph. If this new appointment is not convenient for you, please contact our office at [phone]. Thank you for choosing the [facility] as your Healthcare Provider . Sincerely, Internal Medicine Appointment Office BASIC METABOLIC Collected: 01/25/2018 Status: F Source: [place] PROFILE (BMP) 5:30 AM [facility] REPOSITORY TYPE CODE TESTS RESULT OUT OF RANGE REFERENCE UNITS LAB L501.0100 74-106 mg/dL Normal GLU 97 Result Comment: Please note revised GLUCOSE reference range effective 2017. LAB L501.1000 7-18 mg/dL Normal BUN 13 LAB L501.1100 0.70-1.30 mg/dL Normal CREAT,SERUM 0.74 Result Comment: The validity of the calculated GFR AND GFRAA in patients over 70 years has not been determined. Clinical correlation is essential. LAB L501.1110 >60 mL/min Normal EST GFR 110 Result Comment: Non- GFR Calc LAB L501.1115 >60 mL/min Normal EST GFR - AA 134 Result Comment: GFR Calc LAB L501.1255 ml/min Normal Estimated CRCL 68.94 LAB L501.1300 10-20 RATIO Normal BUN/CRE 17.6 LAB L501.2200 8.5-10 mg/dL Normal .1 CA 8.7 LAB L501.5300 136-14 mmol/L Normal 5 NA 141 LAB L501.5600 3.5-5. mmol/L Normal 1 K 4.1 LAB L501.5900 98-107 mmol/L Normal CL 107 LAB L501.6100 21.0-3 mmol/L Normal 2.0 CO2 27.0 LAB L501.6200 5-15 Normal GAP 7 Performed By: #### L500.2500 #### [facility] [place], [address] CBC W/DIFF, AUTOMATED Collected: 01/25/2018 Status: F Source: [place] 5:30 AM [facility] REPOSITORY TYPE CODE TESTS RESULT OUT OF RANGE REFERENCE UNITS LAB L100.1000 4.4-11.0 K/mm3 Normal WBC 8.2 LAB L100.1200 4.6-6.2 M/mm3 Low RBC 4.39 LAB L100.1300 13.0-16.5 g/dl Normal HGB 13.7 LAB L100.1400 40-54 % Normal HCT 41.1 LAB L100.1500 80-94 fL Normal MCV 93.6 LAB L100.1600 27.0-32.0 pg Normal MCH 31.2 LAB L100.1700 32-36 g/gl Normal MCHC 33.3 LAB L100.1810 11.6-14.6 % Normal RDW CV 14.4 LAB L100.1820 35.1-43.9 fl High RDW SD 47.2 LAB L100.1900 150-450 K/mm3 Normal PLT 335 LAB L100.2000 6.2-12.0 fl Normal MPV 9.4 LAB L100.2100 47-70 % High NEUT% 73.9 LAB L100.2200 19-41 % Low LY% 11.9 LAB L100.2300 0-10 % Normal MONO% 8.5 LAB L100.2400 0-5 % Normal EO% 4.4 LAB L100.2500 0-1 % Normal BASO% 0.6 LAB L100.2550 0.0-0.9 % Normal IM GRAN % 0.700 Result Comment: IG% - Immature Granulocytes (promyelocytes, myelocytes and metamyelocytes) > 1% indicates that a LEFT SHIFT is Present. LAB L100.2620 2.0-7.7 X10 3/uL Normal Absolute Neut 6.1 LAB L100.2720 0.83-4.51 X10 3/ul Normal Absolute Lymph 0.98 Performed By: #### L100.0100 #### [facility] [address] [facility] [place], [address] 12 LEAD ELECTROCARDIOGRAM Observed: 01/23/2018 Status: F Source: [place] 3:02 PM [facility] REPOSITORY [facility] Cardiovascular Services [address] [place] [address] 12 Lead EKG 01/12/18 0452 MR#: [id number] Acct: [id number] Name: ROHAN OLIVIA Rep #: [id number] : 1945 72 From: Darryl Harding MD Attending Dr: Ewa Norman MD Status: DIS IN Ordering Dr: Ruslan Casarez MD Date: 01/12/18 Location: [facility] Sex: M C Admitted: 01/11/18 Test Reason : PRE-OP Blood Pressure : / mmHG Vent. Rate : 082 BPM Atrial Rate : 082 BPM P-R Int : 198 ms QRS Dur : 106 ms QT Int : 378 ms P-R-T Axes : 035 -12 044 degrees QTc Int : 441 ms Normal sinus rhythm Normal ECG No previous ECGs available Confirmed by DARRYL HARDING MD ([id number]), news editor KARL CASAREZ ([id number]) on 01/23/2018 3:01:10 PM Referred By: RUSLAN CASAREZ Confirmed By:DARRYL HARDING MD 01/23/18 1501 Date Darryl aHrding MD CC: Ewa Norman MD; Ruslan Casarez MD; Brandon Cantor MD Signed DISCHARGE SUMMARY Observed: 01/23/2018 Status: F Source: [place] 8:04 AM [facility] REPOSITORY [facility] Medical Records Department [address] [place] [address] Discharge Summary 01/22/18 2136 MR#: [id number] Acct: [id number] Name: ROHAN OLIVIA Rep #: [id number] : 1945 72 From: Kenneth Jung MD PCP: Brandon Cantor MD Status: ADM IN Location: [place] [id number] ADDENDUM by Kenneth Jung MD on 01/23/18 at 0804 Code Visit Home with indwelling Crawford Catheter. Follow up with Dr. Connolly in 1 week. Resume Xarelto day of discharge. 01/23/18 0804 <Electronically signed by Kenneth Jung MD> Date Kenneth Jung MD cc: Kenneth Jung MD; Brandon Cantor MD * Signed Discharge Date and Diagnosis - Problem List Patient Problems: Active and Suspected Problems (Last Updated 01/11/18 @ 18:02 by Jaspreet Gamez DO) Fall (Acute) Pulmonary embolism (Acute) Polycythemia (Acute) Date of Admission: 01/17/18 Date of Discharge: 01/25/18 - Primary Discharge Diagnosis Active and Suspected Problems (Last Updated 01/11/18 @ 18:02 by Jaspreet Gamez DO) Fall (Acute) Pulmonary embolism (Acute) Polycythemia (Acute) - Secondary Discharge Diagnosis Chronic Problems (Last Updated 01/11/18 @ 18:02 by Jaspreet Gamez DO) BPH (benign prostatic hyperplasia) (Chronic) Depression (Chronic) Hypercholesterolemia (Chronic) Hypertension (Chronic) Anxiety (Chronic) Diarrhea (Chronic) Osteoarthritis (Chronic) Hyperlipidemia (Chronic) Hospital Course and Treatment Imaging Results: 01/17/18 19:36 Diet: Cardiac/Low Cholesterol Food consistency:: Regular Liquid Consistency:: Regular/Thin Labs (Last 48 Hours) Urine Color Yellow Urine Clarity Clear Operations: None Procedures: None Summary of Care Provided: The patient is a 72 year old Male with below past medical history hospitalized for right hip fracture, underwent right total hip arthroplasty 01/12/[address] Robert Marie, complicated by chronic hypoxemia, pulmonary embolism, admitted to TCU with debility, here for rehabilitation, strengthening, prior to discharge home with spouse. Xarelto stop date 07/18/2018. Discharge home with spouse, and outpatient physical therapy. Discharge Diet: No Restrictions Discharge Activity: Return to Normal Activity, May Shower, Use Walker Weight Bearing Status: Weight bearing as tolerated Call your doctor if you observe: Fever of 101 or Higher, Inability to urinate, Inability to have a bowel movement, Shortness of breath, Chest pain, Uncontrolled pain Home Medications: Medications to take at Discharge Amlodipine Besylate [Norvasc] 10 mg PO DAILY 01/12/17 Paroxetine [Paxil] 10 mg PO DAILY 01/12/17 Pravastatin [Pravachol] 20 mg PO QHS 01/12/17 Terazosin HCl 10 mg PO QHS 01/12/17 Calcium Carbonate [Tums] 1,000 mg PO Q4H PRN PRN tablet 01/16/18 Ergocalciferol [Vitamin D] 50,000 unit PO Q7D 01/17/18 Hydrocortisone 2.5% Crm [Hytone] 1 applic TOPICAL BID PRN PRN 7 Days #1 tube 01/17/18 Acetaminophen [Tylenol] 1,000 mg PO Q8H PRN PRN tablet 01/22/18 Rivaroxaban [Xarelto] 15 mg PO BIDCM #22 tab 01/22/18 Rivaroxaban [Xarelto] 20 mg PO DAILY #30 tab 01/22/18 Following Prescrptions Were Given to Patient: Rivaroxaban [Xarelto] 20 mg PO DAILY #30 tab Rivaroxaban [Xarelto] 15 mg PO BIDCM #22 tab Primary Care Physician: Brandon Cantor MD [Primary Care Provider] - Please follow up with your Primary Care Physician in: 1 week. Please Follow Up With: Abdifatah VERA When: 2 weeks. Please Follow Up With: Dr Paige Please Follow Up With: With IVETT Freed When: 2 weeks. Disposition: Home Minutes spent on discharge:: 30 Patient Condition:: Stable Medical Necessity - Tobacco Use Smoking Status: Former smoker Tobacco Use: Non-smoker Meaningful Use Info Meaningful Use Diagnoses (Choose all that apply): None applicable 01/22/182137 <Electronically signed by Kenneth Jung MD> Date Kenneth Jung MD Cosigner Signature (if applicable): Date CC: Kenneth Jung MD; Brandon Cantor MD Signed CONSULTATION Observed: 01/23/2018 Status: F Source: [place] 8:04 [facility] Medical Records Department [address] [place] [address] Consultation 01/23/18 0801 MR#: [id number] Acct: [id number] Name: ROHAN OLIVIA Rep #: [id number] : 1945 72 From: Gio Connolly MD PCP: Brandon Cantor MD Status: ADM IN Location: [place] [address] Reason for Consult Date of Consultation: 01/23/18 Reason for Consultation: urinary retention and Crawford trauma History of Present Illness: The patient is a 72 year old male who had a hip replacement last week he is in transitional care unit to recover and was found to have significantly elevated postvoid residuals and frequent urination small volumes he is on an alpha-johanna, doxazosin nursing staff last night attempted to place a catheter and ran into a large prostate which started bleeding he is on Xarelto. This morning they came in the patient still urinating frequently still having fairly significant hematuria probably from his prostate and minor trauma from the Crawford placement so numb the patient with lidocaine jelly and use a [address] a catheter and got clear return of yellow urine put 10 cc in the Crawford. He will to go home with a Crawford catheter continue with doxazosin he can follow-up next week in my office for catheter removal. Past Medical History Past Medical History (Chronic Problems): Chronic Problems (Last Updated 01/11/18 @ 18:02 by Jaspreet Gamez DO) BPH (benign prostatic hyperplasia) (Chronic) Depression (Chronic) Hypercholesterolemia (Chronic) Hypertension (Chronic) Anxiety (Chronic) Diarrhea (Chronic) Osteoarthritis (Chronic) Hyperlipidemia (Chronic) Medical History: Medical History (Last Updated 01/11/18 @ 18:02 by Jaspreet Gamez DO) Anxiety F41.9 Chronic respiratory failure with hypoxia J96.11 HTN (hypertension) I10 Allergies No Known Allergies Allergy (Verified 01/11/18 14:07) Home Medications: Ambulatory Orders Medication Instructions Recorded Surgical History: total hip arthroplasty - Right., - - 2 previous colonoscopies, colon surgery with reversal of colostomy, finger surgery, previous tonsillectomy Psychiatric History: Anxiety, Depression Lives: Spouse/ Significant Other Smoking Status: Former smoker Tobacco Use: Non-smoker Alcohol: None Drugs: None - *Family History Maternal History Items: Heart Disease Review of Systems Constitutional: Denies: Chills, Fever, Weight Change HEENT: Denies: Head Aches, Sinus Congestion, Sinus Drainage Cardiovascular: Denies: Chest Pain, Palpitations Respiratory: Denies: Cough, Shortness of breath at rest, Sputum production Gastrointestinal: Denies: Abdominal Pain, Nausea, Vomiting Genitourinary: Reports: Hematuria. Denies: Dysuria Musculoskeletal: Denies: Joint Pain, Joint Tenderness Skin: Denies: Rash, Wounds Neurological: Denies: Numbness, Tingling, Focal weakness Psychiatric: Denies: Anxiety, Depression, Homicidal Ideations, Suicidal Ideations Hematologic/ Lymphatic: Denies: Easy Bruising, Easy Bleeding Physical Exam - Physical Exam Vital Signs Temp 98.0 F 01/22/18 16:00 Pulse 86 01/23/18 05:47 Resp 18 01/22/18 16:00 BP 164/72 H 01/23/18 05:47 Pulse Ox 90 01/23/18 05:49 Intake AND Output Intake Total 1080 / 1080 1220 / 1220 120 / 120 Output Total 300 / 300 860 / 860 625 / 625 Balance 780 / 780 360 / 360 -505 / -505 Intake: General: Alert, Oriented x3 HEENT: Atraumatic Oral: Moist Mucosa Neck: Supple Lungs: Normal air movement Cardiovascular: Regular rate Abdomen: Soft Prostate: 30gm Laboratory Tests Past 24 Hrs Urine Color Yellow Urine Clarity Clear Assessment/Plan All Active Problems (Last Updated 01/11/18 @ 18:02 by Jaspreet Gamez DO) Closed right hip fracture (Acute) Acute respiratory failure with hypoxia (Acute) Fall (Acute) Pulmonary embolism (Acute) Polycythemia (Acute) 72-year-old male with enlarged prostate Crawford catheter placed today for some minor Crawford trauma. Leave the catheter in place to gravity drainage needs to be secured to the leg bag he can follow-up next week in my office for a checkup and a catheter removal continue with doxazosin postop. Hold Xarelto until the bleeding stops then can resume. Call with questions 01/23/18 0804 <Electronically signed by Gio Connolly MD> Date Gio Connolly MD Cosigner Signature (if applicable): Date CC: Gio Connolly MD; Brandon Cantor MD Signed DISCHARGE INSTRUCTION Observed: 01/23/2018 Status: F Source: [place] 8:03 AM [facility] REPOSITORY [facility] Medical Records Department [address] [place] [address] Instructions for Home/Discharge Instructions 01/22/18 2134 MR#: [id number] Acct: [id number] Name: ROHAN OLIVIA Rep #: [id number] : 1945 72 From: Kenneth Jung MD PCP: Brandon Cantor MD Status: ADM IN ADDENDUM by Kenneth Jung MD on 01/23/18 at 0803 Home with indwelling Crawford Catheter. Follow up with Dr. Connolly in 1 week. Resume Xarelto day of discharge. Date Kenneth Jung MD cc: Gio Connolly MD; Brandon Cantor MD * Signed - Discharge Diagnoses Current Active Problems: Current Active and Chronic Problems (Last Updated 01/11/18 @ 18:02 by Jaspreet Gamez DO) Fall (Acute) Hypertension (Chronic) Anxiety (Chronic) Diarrhea (Chronic) Osteoarthritis (Chronic) Hyperlipidemia (Chronic) Pulmonary embolism (Acute) Polycythemia (Acute) You will use the following diet at home:: No restrictions, Regular Your food should be the consistency of: Regular Your liquids should be the consistency of: Regular/Thin Discharge Activity: Return to Normal Activity, May Shower, Use Walker Weight Bearing Status: Weight bearing as tolerated Call your doctor if you observe: Fever of 101 or Higher, Inability to urinate, Inability to have a bowel movement, Shortness of breath, Chest pain, Uncontrolled pain Allergies/Adverse Reactions: Allergies No Known Allergies Allergy (Verified 01/11/18 14:07) Medications to take at Discharge Amlodipine Besylate [Norvasc] 10 mg PO DAILY 01/12/17 Paroxetine [Paxil] 10 mg PO DAILY 01/12/17 Pravastatin [Pravachol] 20 mg PO QHS 01/12/17 Terazosin HCl 10 mg PO QHS 01/12/17 Calcium Carbonate [Tums] 1,000 mg PO Q4H PRN PRN tablet 01/16/18 Ergocalciferol [Vitamin D] 50,000 unit PO Q7D 01/17/18 Hydrocortisone 2.5% Crm [Hytone] 1 applic TOPICAL BID PRN PRN 7 Days #1 tube 01/17/18 Acetaminophen [Tylenol] 1,000 mg PO Q8H PRN PRN tablet 01/22/18 Rivaroxaban [Xarelto] 15 mg PO BIDCM #22 tab 01/22/18 Rivaroxaban [Xarelto] 20 mg PO DAILY #30 tab 01/22/18 The following prescriptions were given: Rivaroxaban [Xarelto] 20 mg PO DAILY #30 tab Rivaroxaban [Xarelto] 15 mg PO BIDCM #22 tab Primary Care Physician: Brandon Cantor MD [Primary Care Provider] - Please follow up with your Primary Care Physician in: 1 week. Test Results: Test results from this visit will be discussed in further detail at your follow-up appointment, if applicable. Please Follow Up With: Abdifatah VERA When: 2 weeks. Please Follow Up With: Dr Paige Please Follow Up With: With IVETT Freed When: 2 weeks. Proposed Discharge Date: 01/25/18 01/22/18 2136 <Electronically signed by Kenneth Jung MD> Date Kenneth Jung MD CC: Gio Connolly MD; Brandon Cantor MD URINALYSIS, COMPLETE Collected: 01/22/2018 Status: F Source: [place] 6:55 PM [facility] REPOSITORY Order Comment: Order Date: 01/22/18 How was Urine Obtained? CLEAN CATCH TYPE CODE TESTS RESULT OUT OF RANGE REFERENCE UNITS LAB L400.3000 Yellow COLOR Normal Yellow LAB L400.3050 Clear Normal CLARITY Clear LAB L400.3200 Normal mg/dl Normal GLUCOSE, UR Normal LAB L400.3300 Negative mg/dL Normal BILIRUBIN URINE Negative LAB L400.3400 Negative mg/dl Normal KETONE UR Negative LAB L400.3465 1.002-1.030 Normal SP.GR. DIPSTX 1.020 LAB L400.3550 5.0 - 8.0 pH UR Normal 6.0 LAB L400.3600 Negative mg/dl PROT Normal DIPSTX Negative LAB L400.3700 Normal mg/dl Normal UROBILI Normal LAB L400.3750 Negative Normal NITRITE UR Negative LAB L400.3780 Negative /ul High 10 OCCULT BLOOD-UR LAB L400.3800 Negative /ul LEUK Normal ESTERASE Negative LAB L400.4050 0-5 /hpf WBC Normal 0-5 SEEN LAB L400.4100 0-5 /hpf Normal RBC-UA 0-5 SEEN LAB L400.4150 0-5 /hpf SQUAM 0 Normal EPI SEEN LAB L400.4300 None Seen /hpf 0 Normal BACTERIA SEEN LAB L400.4350 <or=2+ /hpf 0 Normal MUCUS, URINE SEEN Performed By: #### L400.0001 #### [facility] [address] [place], [address] Observed: 01/22/2018 Status: F Source: [place] CULTURE, URINE 6:55 PM [facility] REPOSITORY Order Date: 01/22/18 Urine Culture Culture exhibits no growth. Performed By: #### M100.0650 #### [facility] [address] [place], [address] EMERGENCY DEPARTMENT Observed: 01/18/2018 Status: F Source: [place] SUMMARY 4:32 PM [facility] REPOSITORY [facility] Medical Records Department [address] [place] [address] Emergency Department Summary 01/11/18 1426 MR#: [id number] Acct: [id number] Name: ROHAN OLIVIA Rep #: [id number] : 1945 72 From: Leah Alicea MD PCP: Brandon Cantor MD Status: DIS IN - ER Visit Summary Date of Service: 01/11/18 Chief Complaint: [] Tripped and fell right hip pain unable to walk History of Present Illness: The patient is a 72 M [] acute on his lawnmower he inadvertently tripped and fell has right hip pain unable to walk, his history of chronic hypoxemia with a standard normal pulse ox of 90% he has been seen by Dr. Pederson of pulmonology he has healthy lungs and is on no specific therapy he indicates he simply tripped and fell I note that above as his pulse ox here is 90 and he has no complaints of any type of cardiovascular complaint just right hip pain, history of hypertension that is stable Physical Examination: [] Exam his pulse ox is 90% the rest of his vital signs are within normal range his blood pressures about 200/80 complaining of severe pain in the right hip, head is nontraumatic neck is nontraumatic lungs are managed heart tones are distant abdomen is obese but soft nontender he has marked pain over really the superior pubic ramus the right, some mild pain over the greater trochanter as well he has no thigh knee tib-fib ankle or foot pain he is moving all 4 extremities prefers to keep the knee elevated neurologically awake and alert Test Results: [] Emergency Department Course and Treatment: [] X-rays are obtained a right impacted hip fracture per radiology, hemoglobin 18 rest the labs generally unremarkable spoke with Dr. 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 It may contain incorrect words, spelling, and punctuation that were not noted in review of the chart prior to signing ED Disposition - Plan for ED Patient: Chief Complaint: Lower Extremity Injury Referrals: Brandon Cantor MD [Primary Care Provider] - What to do if you have Problems For any increased pain, shortness of breath, bleeding, nausea or vomiting, chest pain, or any unexpected problems, contact your Primary Care Provider. Call [facility] ([phone]) or report to the closest Emergency Room. Call 911 if necessary. 01/18/18 1632 <Electronically signed by Leah Alicea MD> Date Leah Alicea MD Cosigner Signature (If Indicated): Date CC: Brandon Cantor MD DISCHARGE SUMMARY Observed: 01/18/2018 Status: F Source: [place] 3:33 PM [facility] REPOSITORY [facility] Medical Records Department [address] [place] [address] Discharge Summary 01/16/18 1223 MR#: [id number] Acct: [id number] Name: ROHAN OLIVIA Rep #: [id number] : 1945 72 From: Jaspreet Gamez DO PCP: Brandon Cantor MD Status: DIS IN Y Location: [place] [address] ADDENDUM by Ewa Norman MD on 01/18/18 at 1533 Code Visit Patient could not be discharged on 01/16/18; was rather discharged on 01/17/18. 01/18/18 1533 <Electronically signed by Ewa Norman MD> Date Ewa Norman MD cc: Ewa Norman MD; Jaspreet Gamez DO; Brandon Cantor MD * Signed Discharge Date and Diagnosis - Problem List Patient Problems: Active and Suspected Problems (Last Updated 01/11/18 @ 18:02 by Jaspreet Gamez DO) Closed right hip fracture (Acute) Acute respiratory failure with hypoxia (Acute) Date of Admission: 01/11/18 Date of Discharge: 01/16/18 - Primary Discharge Diagnosis Active and Suspected Problems (Last Updated 01/11/18 @ 18:02 by Jaspreet Gamez DO) Closed right hip fracture (Acute) Acute respiratory failure with hypoxia (Acute) - Secondary Discharge Diagnosis Chronic Problems (Last Updated 01/11/18 @ 18:02 by Jaspreet Gamez DO) BPH (benign prostatic hyperplasia) (Chronic) Depression (Chronic) Hypercholesterolemia (Chronic) Hospital Course and Treatment Imaging Results: Clinical Impression(s) from Imaging Studies Hip/Pelvis X-Ray 01/11/18 14:57 IMPRESSION: Right proximal femoral subcapital acute fracture as described. Fairly severe degenerative left hip as described. Electronically Signed: William Jacques at 16:19 EDT Tel , Service support , Chest X-Ray 01/11/18 21:00 IMPRESSION: Diffuse pulmonary interstitial prominence. Electronically Signed: Javier Granger DO at 22:00 EDT Tel [phone], Service support , Chest CTA 01/12/18 12:27 IMPRESSION: Study limited by motion. No central or proximal segmental pulmonary embolus. No evidence of thoracic aortic aneurysm or dissection. Small bilateral pleural effusions overlying atelectasis. Mild pulmonary vascular congestion. Mediastinal lymphadenopathy. Coronary artery disease. Electronically Signed: Jabari Jackson, at 16:00 EDT Tel , Service support , Hip X-Ray 01/12/18 13:18 IMPRESSION: Status post right hip arthroplasty with intact hardware in satisfactory alignment. Electronically Signed: Jabari Jackson, at 17:12 EDT Tel , Service support , Robert Montenegroal Sosa Yung Operations: total hip replacement Procedures: 2-D Echocardiogram Summary of Care Provided: The patient is a 72 year old M presents with a right hip pain after a mechanical fall. Patient tripped over the bed of his tractor. 1. Right hip fracture * Due to mechanical fall * s/p Right MERCED on 01/12 * follow up with ortho as outpt 2. Acute hypoxic respiratory failure * likely on chronic respiratory failure. patient was 88-90% on initial presentation and was asymptomatic. * increased O2 requirements since hospitalization * concern is for PE (clot v fat--despite CTA being negative) + cor pulmonale + CHF. * noted increased acute right heart strain on echo * wean oxygen as tolerated * continue lasix to facilitate diuresis (weight up to 101 from 98kg) * keep sats greater than or equal to 88%. currently stable on 4 liters. * follow up with Pulmonology as outpt 3. Right heart strain * appeared acute on echo, thereby raising the spectre of PE (despite negative CTA) * On Xarelto 15 BID, change to 20 after 3 weeks, then treat for a total of 6 months. * Duplex negative 4. Hypertension * improved * Accelerated * Continue with amlodipine 5. Polycythemia * Unclear this is acute or chronic as there is no baseline labs to compare to * suspect chronic d/t chronic resp failure 6. Acute blood loss anemia * Hg 18 to now 14.2 * no need for transfusion 7. DVT prophylaxis anticoagulated. 8. Hematuria * resolved. likely secondary to Xarelto and crawford catheter. 9. Disposition * to SNF pending insurance, hopefully today.[] Discharge Diet: Low fat/ Low Cholesterol Discharge Activity: Return to Normal Activity Call your doctor if your incision/area has: Continuous Slow Oozing, Sudden Increased Bleeding, Increased Pain/ Swelling Call your doctor if you observe: Fever of 101 or Higher, Shortness of breath Home Medications: Medications to take at Discharge Amlodipine Besylate [Norvasc] 10 mg PO DAILY 01/12/17 Loperamide [Imodium] 2 mg PO Q6H PRN PRN 01/12/17 Paroxetine [Paxil] 10 mg PO DAILY 01/12/17 Pravastatin [Pravachol] 20 mg PO QHS 01/12/17 Terazosin HCl 10 mg PO QHS 01/12/17 Acetaminophen [Tylenol Tablet] 650 mg PO Q6H PRN PRN tablet 01/16/18 Calcium Carbonate [Tums] 1,000 mg PO Q4H PRN PRN tablet 01/16/18 Cholecalciferol (VIT D3) [Vitamin D3] 2,000 unit PO DAILY #1 tablet 01/16/18 Ensure Enlive 120 ml PO 4X/DAY liquid 01/16/18 Ergocalciferol [Vitamin D] 50,000 unit PO Q7D capsule 01/16/18 Oxycodone [Oxyir] 5 mg PO Q6H PRN 3 Days #18 tab 01/16/18 Rivaroxaban [Xarelto] 15 mg PO BIDCM tablet 01/16/18 Rivaroxaban [Xarelto] 20 mg PO DAILY #1 tablet 01/16/18 Senna/Docusate Sodium [Senokot-S] 2 tablet PO BID tablet 01/16/18 Following Prescrptions Were Given to Patient: Cholecalciferol (VIT D3) [Vitamin D3] 2,000 unit PO DAILY #1 tablet Rivaroxaban [Xarelto] 20 mg PO DAILY #1 tablet Oxycodone [Oxyir] 5 mg PO Q6H PRN 3 Days #18 tab PRN Reason: Mod-Severe Pain (-03/14) Primary Care Physician: Brandon Cantor MD [Primary Care Provider] - Within 2 Weeks Please Follow Up With: [facility] When: call for appointment. Follow in 1-2 weeks. Please Follow Up With: Ian Barragan MD When: 2-4 weeks Disposition: [facility] facility Minutes spent on discharge:: 40 Patient Condition:: Good Medical Necessity - Tobacco Use Smoking Status: Former smoker Tobacco Use: Cigarettes Meaningful Use Info Meaningful Use Diagnoses (Choose all that apply): None applicable Code Visit Inpatient E AND M: 60536 Disch Hosp 01/16/18 1226 <Electronically signed by Jaspreet Gamez DO> Date Jaspreet Gamez DO Cosigner Signature (if applicable): Date CC: Ewa Norman MD; Jaspreet Gamez DO; Brandon Cantor MD Signed HISTORY AND PHYSICAL Observed: 01/18/2018 Status: F Source: [place] EXAM 8:50 AM [facility] REPOSITORY [facility] Medical Records Department [address] [place] [id number] History and Physical 01/18/18 0130 MR#: [id number] Acct: [id number] Name: ROHAN OLIVIA Rep #: [id number] : 1945 72 From: Kenneth Jung MD PCP: Brandon Cantor MD Status: ADM IN Location: [place] [address] Problem List (1) Fall Status: Acute (2) Hypertension Status: Chronic (3) Anxiety Status: Chronic (4) Diarrhea Status: Chronic (5) Osteoarthritis Status: Chronic (6) Hyperlipidemia Status: Chronic (7) Pulmonary embolism Status: Acute (8) Polycythemia Status: Acute (9) Closed right hip fracture Status: Acute Qualifiers: (10) Acute respiratory failure with hypoxia Status: Acute (11) BPH (benign prostatic hyperplasia) Status: Chronic Qualifiers: (12) Depression Status: Chronic Qualifiers: History of Present Illness Date of Admission: 01/17/18 Chief Complaint: Here for rehabilitation, strengthening, prior to discharge home with spouse. The patient is a 72 year old Male with below past medical history presented to [facility] Emergency Department 01/11/2018 with fall, right hip pain, unable to walk. X-ray showed right impacted hip fracture. Hemoglobin 18. 01/11/2018 Admit to Hospital. Cleared for surgery. 01/11/2018 Chest X-ray diffuse pulmonary interstitial prominence. 01/12/2018 Dr. Barragan recommended spinal, conscious sedation for surgery. Further evaluation for chronic hypoxemia. 01/12/2018 Dr. Marie performed right total hip arthroplasty. 01/12/2018 CTA chest negative pulmonary embolism. 01/12/2018 Echo EF 75% Stage 1 diastolic dysfunction. RVSP 60mm HG. Severe pulmonary hypertension. 01/15/2018 Doppler of legs negative for DVT. Recommend Xarelto x 6 months for possible pulmonary embolism. 01/17/2018 Admit to TCU with debility, here for rehabilitation, strengthening, prior to discharge home with spouse. Past Medical History Past Medical History (Chronic Problems): Chronic Problems (Last Updated 01/11/18 @ 18:02 by Jaspreet Gamez DO) BPH (benign prostatic hyperplasia) (Chronic) Depression (Chronic) Hypercholesterolemia (Chronic) Hypertension (Chronic) Anxiety (Chronic) Diarrhea (Chronic) Osteoarthritis (Chronic) Hyperlipidemia (Chronic) Medical History: Medical History (Last Updated 01/11/18 @ 18:02 by Jaspreet Gamez DO) Anxiety F41.9 Chronic respiratory failure with hypoxia J96.11 HTN (hypertension) I10 Allergies No Known Allergies Allergy (Verified 01/11/18 14:07) Home Medications: Ambulatory Orders Medication Instructions Recorded Surgical History: total hip arthroplasty - Right., - - 2 previous colonoscopies, colon surgery with reversal of colostomy, finger surgery, previous tonsillectomy Psychiatric History: Anxiety, Depression Lives: Spouse/ Significant Other Smoking Status: Former smoker Tobacco Use: Non-smoker Alcohol: None Drugs: None - *Family History Maternal History Items: Heart Disease Review of Systems Constitutional: Denies: Chills, Fever, Weight Change HEENT: Denies: Head Aches, Sinus Congestion, Sinus Drainage Cardiovascular: Denies: Chest Pain, Palpitations Respiratory: Denies: Cough, Shortness of breath at rest, Sputum production Gastrointestinal: Denies: Abdominal Pain, Nausea, Vomiting Genitourinary: Denies: Dysuria Musculoskeletal: Denies: Joint Pain, Joint Tenderness Skin: Denies: Rash, Wounds Neurological: Denies: Numbness, Tingling, Focal weakness Psychiatric: Denies: Anxiety, Depression, Homicidal Ideations, Suicidal Ideations Hematologic/ Lymphatic: Denies: Easy Bruising, Easy Bleeding VTE Information - Inpt Only VTE Present on Admission: No VTE Mechan Device Prophylaxis: Knee High HARSHIL Hose VTE Pharm Prophylaxis ordered?: No Reason prophylaxis not ordered:: Treatment Not Indicated Patient Problems: Active and Suspected Problems (Last Updated 01/11/18 @ 18:02 by Jaspreet Gamez DO) Fall (Acute) Pulmonary embolism (Acute) Polycythemia (Acute) - Physical Exam General: Alert, Oriented x3, Cooperative HEENT: Atraumatic, PERRLA, EOMI, Normocephalic Neck: Supple, No JVD, Negative Carotid Bruits Lungs: Clear to auscultation, Normal air movement Cardiovascular: Regular rate, No murmurs Abdomen: Bowel Sounds Present, Soft, Non Tender Extremities: No edema, Capillary Refill Less than 3 Seconds Skin: No rashes, No breakdown Musculoskeletal: No Tenderness to Palpation of Joints or Extremities Neurological: Cranial nerves II-XII grossly intact Psych/Mental Status: Normal Affect, Appropriate Vital Signs Temp Pulse Resp BP Pulse Ox 98.9 F 85 20 H 133/60 H 95 01/17/18 19:25 01/17/18 19:25 01/17/18 19:25 01/17/18 19:25 01/17/18 19:25 Oxygen Delivery Method Room Air Weight: 95.254 kg Body Mass Index (BMI) 30.1 Intake and Output for Last 24 Hours Output Total 200 / 200 Balance -200 / -200 Assessment/Plan All Active Problems (Last Updated 01/11/18 @ 18:02 by Jaspreet Gamez DO) Closed right hip fracture (Acute) Acute respiratory failure with hypoxia (Acute) Fall (Acute) Pulmonary embolism (Acute) Polycythemia (Acute) 72 year old male with below past medical history hospitalized for right hip fracture, underwent right total hip arthroplasty 01/12/[address] Robert Marie, complicated by chronic hypoxemia, pulmonary embolism, admitted to TCU with debility, here for rehabilitation, strengthening, prior to discharge home with spouse. * Debility - PT/OT. * Pain - Tylenol 1000MG Q8H, Oxycodone 5MG Q6H PRN moderate pain. * Bowel - Miralax 17GM daily, Senna/colace 2 tablets BID, Dulcolax 10MG PO daily PRN. * Pneumonia vaccination - Administer Prevnar 13 and/or Pneumovax 23 as necessary. * DVT prophylaxis - Not necessary, already on Xarelto. * Hypertension - Amlodipine 10MG daily. * Indigestion - TUMS 1000MG Q4H PRN. * BPH - Cardura 8MG QHS. * Nutrition - Ensure 120ML 4x/day. * Vitamin D deficiency - D2 50,000 units per week. * Rash - Hytone 2.5% BID back. * Skin irritation - Calmoseptine BID bilateral buttocks. * Depression - Paroxetine 10MG QHS. * Hyperlipidemia - Pravastatin 20MG QHS. * Pulmonary Embolism - Xarelto 15MG BID thru 02/06/2018, then 20MG daily total 6 months. 01/18/18 0850 <Electronically signed by Kenneth Jung MD> Date Kenneth Jung MD Cosigner Signature: Date (if applicable) CC: Kenneth Jung MD; Brandon Cantor MD Signed BASIC METABOLIC Collected: 01/18/2018 Status: F Source: [place] PROFILE ([facility]) 5:27 AM [facility] REPOSITORY TYPE CODE TESTS RESULT OUT OF RANGE REFERENCE UNITS LAB L501.0100 74-106 mg/dL Normal GLU 105 Result Comment: Fasting Glucose result from 100 to 125 mg/dL suggests IMPAIRED HOMEOSTASIS per A.D.A. criteria. Please note revised GLUCOSE reference range effective 2017. LAB L501.1000 7-18 mg/dL High BUN 22 LAB L501.1100 0.70-1.30 mg/dL Normal CREAT,SERUM 0.73 Result Comment: The validity of the calculated GFR AND GFRAA in patients over 70 years has not been determined. Clinical correlation is essential. LAB L501.1110 >60 mL/min Normal EST GFR 111 Result Comment: Non- GFR Calc LAB L501.1115 >60 mL/min Normal EST GFR - AA 135 Result Comment: GFR Calc LAB L501.1255 ml/min Normal Estimated CRCL 68.94 LAB L501.1300 10-20 RATIO High BUN/CRE 30.0 LAB L501.2200 8.5-10 mg/dL Normal .1 CA 8.6 LAB L501.5300 136-14 mmol/L Normal 5 NA 138 LAB L501.5600 3.5-5. mmol/L Normal 1 K 3.6 LAB L501.5900 98-107 mmol/L Normal CL 98 LAB L501.6100 21.0-3 mmol/L Normal 2.0 CO2 30.0 LAB L501.6200 5-15 Normal GAP 10 Performed By: #### L500.2500 #### [facility] [address] [place], [address] CBC W/DIFF, AUTOMATED Collected: 01/18/2018 Status: F Source: [place] 5:27 AM [facility] REPOSITORY TYPE CODE TESTS RESULT OUT OF RANGE REFERENCE UNITS LAB L100.1000 4.4-11.0 K/mm3 Normal WBC 7.8 LAB L100.1200 4.6-6.2 M/mm3 Low RBC 4.50 LAB L100.1300 13.0-16.5 g/dl Normal HGB 13.9 LAB L100.1400 40-54 % Normal HCT 40.9 LAB L100.1500 80-94 fL Normal MCV 90.9 LAB L100.1600 27.0-32.0 pg Normal MCH 30.9 LAB L100.1700 32-36 g/gl Normal MCHC 34.0 LAB L100.1810 11.6-14.6 % Normal RDW CV 13.6 LAB L100.1820 35.1-43.9 fl High RDW SD 45.4 LAB L100.1900 150-450 K/mm3 Normal PLT 164 LAB L100.2000 6.2-12.0 fl Normal MPV 10.8 LAB L100.2100 47-70 % High NEUT% 71.2 LAB L100.2200 19-41 % Low LY% 11.5 LAB L100.2300 0-10 % High MONO% 11.4 LAB L100.2400 0-5 % Normal EO% 4.9 LAB L100.2500 0-1 % Normal BASO% 0.6 LAB L100.2550 0.0-0.9 % Normal IM GRAN % 0.400 Result Comment: IG% - Immature Granulocytes (promyelocytes, myelocytes and metamyelocytes) > 1% indicates that a LEFT SHIFT is Present. LAB L100.2620 2.0-7.7 X10 3/uL Normal Absolute Neut 5.5 LAB L100.2720 0.83-4.51 X10 3/ul Normal Absolute Lymph 0.89 Performed By: #### L100.0100 #### [facility] [address] [place], [address] TRANSFER TO [facility] Observed: 01/16/2018 Status: F Source: [facility] 12:22 PM [facility] REPOSITORY [facility] Medical Records Department [address] [place] [address] Transfer to [facility] MR#: [id number] Acct: [id number] Name: ROHAN OLIVIA Rep #: [id number] : 1945 72 From: Jaspreet Gamez DO PCP: Brandon Cantor MD Status: ADM IN ROHAN OLIVIA (Patient) (Health Ins. Claim No.) (Day of Discharge to Facility) Certification of patient admission REQUIRED AT TIME OF ADMISSION. I CERTIFY THAT POST-HOSPITAL ECF SERVICES ARE REQUIRED TO BE GIVEN ON AN IN-PATIENT BASIS BECAUSE OF THE ABOVE NAMED PATIENT'S NEED FOR [facility] CARE ON A CONTINUING BASIS FOR THE CONDITION(S) FOR WHICH HE/SHE WAS RECEIVING IN-PATIENT HOSPITAL SERVICES PRIOR TO HIS/HER TRANSFER TO THE F. 01/16/18 1222 <Electronically signed by Jaspreet Gamez DO> Date Jaspreet Gamez DO - Diet 01/13/18 09:52 Diet: Cardiac/Low Cholesterol Is pt able to select menu?: Yes - Routine Orders/Code Status Enema Type: [place] O2 Liters per Minute: 4 O2 Frequency: Continuous Keep PO Greater than or Equal to (%): 88 Routine Lab Work: CBC, BMP Code Status: Full Code - Wound(s) right elbow Wound Type: Surgical Incision rt hip Wound Type: Surgical Incision Dressing Change: Dry Sterile Dressing - Therapies Weight Bearing: Weight bearing as tolerated Extremity Affected:: Right Lower Physical Therapy: Eval and Treat Occupational Therapy: Eval and Treat - Problem/Diagnosis (1) Closed right hip fracture Status: Acute Current Visit: Yes - Allergies/Procedures Done in Hospital Allergies/Adverse Reactions: Allergies No Known Allergies Allergy (Verified 01/11/18 14:07) Procedures: 2-D Echocardiogram - Type of Care/Length of Stay Estimated LOS: Convalescent Care Less Than 30 days Type of Care Needed: Skilled Rehab Potential: Fair Prognosis: Fair - Additional Orders/Day of Discharge Day of Discharge: 01/16/18 - Dietary and Speech Recommendations Dietitian Recommendations/Changes: Will add ONS medpass d/t poor po intake and to help w/ fx healing - Follow Up Care Primary Care Physician: Brandon Cantor MD [Primary Care Provider] - Within 2 Weeks Please Follow Up With: [facility] When: call for appointment. Follow in 1-2 weeks. Please Follow Up With: Ian Barragan MD When: 2-4 weeks 01/16/18 1222 <Electronically signed by Jaspreet Gamez DO> Date Jaspreet Gamez DO CC: Ian Barragan MD; Ruslan Casarez MD; Brandon Cantor MD Signed BASIC METABOLIC Collected: 01/16/2018 Status: F Source: [place] PROFILE ([place]) 6:45 AM [facility] REPOSITORY TYPE CODE TESTS RESULT OUT OF RANGE REFERENCE UNITS LAB L501.0100 74-106 mg/dL Normal GLU 105 Result Comment: Fasting Glucose result from 100 to 125 mg/dL suggests IMPAIRED HOMEOSTASIS per A.D.A. criteria. Please note revised GLUCOSE reference range effective 2017. LAB L501.1000 7-18 mg/dL High BUN 19 LAB L501.1100 0.70-1.30 mg/dL Normal CREAT,SERUM 0.72 Result Comment: The validity of the calculated GFR AND GFRAA in patients over 70 years has not been determined. Clinical correlation is essential. LAB L501.1110 >60 mL/min Normal EST GFR 115 Result Comment: Non- GFR Calc LAB L501.1115 >60 mL/min Normal EST GFR - AA 139 Result Comment: GFR Calc LAB L501.1255 ml/min Normal Estimated CRCL 68.94 LAB L501.1300 10-20 RATIO High BUN/CRE 26.6 LAB L501.2200 8.5-10 mg/dL Low .1 CA 8.4 LAB L501.5300 136-14 mmol/L Normal 5 NA 137 LAB L501.5600 3.5-5. mmol/L Normal 1 K 3.5 LAB L501.5900 98-107 mmol/L Normal CL 99 LAB L501.6100 21.0-3 mmol/L Normal 2.0 CO2 32.0 LAB L501.6200 5-15 Normal GAP 6 Performed By: #### L500.2500 #### [facility] [address] [facility] [place], [address] VENOUS DUPLEX LOWER Observed: 01/15/2018 Status: F Source: [place] EXTREMITY 4:24 PM [facility] REPOSITORY [facility] Cardiovascular Services [address] [place] [address] Venous Duplex US - Trip Extrem 01/15/18 0952 MR#: [id number] Acct: [id number] Name: ROHAN OLIVIA Rep #: [id number] : 1945 72 From: Amador Xiao MD Attending Dr: Jaspreet Gamez DO Status: ADM IN Ordering Dr: Chino Alvares DO Date: 01/15/18 Location: U Sex: M C Admitted: 01/11/18 Reason For Study: SHORTNESS OF BREATH RIGHT LEFT GSV is normal. GSV is normal. CFV is compressible, spontaneous, phasic, CFV is compressible, spontaneous, phasic, competent and demonstrates normal competent, and demonstrates normal augmentation. augmentation. FV is compressible, spontaneous, phasic, FV is compressible, spontaneous, phasic, competent and demonstrates normal competent and demonstrates normal augmentation. augmentation. POP V is compressible, spontaneous, phasic, POP V is compressible, spontaneous, phasic, competent and demonstrates normal competent and demonstrates normal augmentation. augmentation. T/P Trunk is compressible. T/P Trunk is compressible. PTV is compressible. PTV is compressible. RT PerV is compressible. LT PerV is compressible. Procedure Exam performed portable in patient room. A preliminary report was called and/or faxed to [facility]. Interpretation Summary Deep veins of the lower extremities are bilaterally patent and compressible segmentally. There is no evidence of deep vein thrombosis on either side. Valvular competence appears intact within the proximal deep venous systems bilaterally. The greater saphenous veins appear bilaterally patent and compressible segmentally. Ordering Physician: Chino Alvares D.O. Referring Physician: Brandon Cantor M.D. Performed By: Barbara Cueto RVT 01/15/18 1623 Date Amador Xiao MD CC: Chino Alvares D.O.; Jaspreet Gamez DO; Brandon Cantor MD Date Dictated: 01/15/18 0952 Date Transcribed: 01/15/18 1623 Gym Instructor: Signed BASIC METABOLIC Collected: 01/15/2018 Status: F Source: [place] PROFILE ([place]) 4:34 AM [facility] REPOSITORY TYPE CODE TESTS RESULT OUT OF RANGE REFERENCE UNITS LAB L501.0100 74-106 mg/dL Normal GLU 103 Result Comment: Fasting Glucose result from 100 to 125 mg/dL suggests IMPAIRED HOMEOSTASIS per A.D.A. criteria. Please note revised GLUCOSE reference range effective 2017. LAB L501.1000 7-18 mg/dL High BUN 19 LAB L501.1100 0.70-1.30 mg/dL Low CREAT,SERUM 0.65 Result Comment: The validity of the calculated GFR AND GFRAA in patients over 70 years has not been determined. Clinical correlation is essential. LAB L501.1110 >60 mL/min Normal EST GFR 129 Result Comment: Non- GFR Calc LAB L501.1115 >60 mL/min Normal EST GFR - AA 156 Result Comment: GFR Calc LAB L501.1255 ml/min Normal Estimated CRCL 68.94 LAB L501.1300 10-20 RATIO High BUN/CRE 29.3 LAB L501.2200 8.5-10 mg/dL Low .1 CA 8.1 LAB L501.5300 136-14 mmol/L Normal 5 NA 140 LAB L501.5600 3.5-5. mmol/L Low 1 K 3.4 LAB L501.5900 98-107 mmol/L Normal CL 101 LAB L501.6100 21.0-3 mmol/L Normal 2.0 CO2 30.0 LAB L501.6200 5-15 Normal GAP 9 Performed By: #### L500.2500 #### [facility] [address] [place], [place], [address] CBC-COMPLETE BLOOD CNT Collected: 01/15/2018 Status: F Source: [place] NO DIFF 4:34 AM [facility] REPOSITORY TYPE CODE TESTS RESULT OUT OF RANGE REFERENCE UNITS LAB L100.1000 4.4-11.0 K/mm3 Normal WBC 8.7 LAB L100.1200 4.6-6.2 M/mm3 Low RBC 4.56 LAB L100.1300 13.0-16.5 g/dl Normal HGB 14.2 LAB L100.1400 40-54 % Normal HCT 41.6 LAB L100.1500 80-94 fL Normal MCV 91.2 LAB L100.1600 27.0-32.0 pg Normal MCH 31.1 LAB L100.1700 32-36 g/gl Normal MCHC 34.1 LAB L100.1810 11.6-14.6 % Normal RDW CV 13.8 LAB L100.1820 35.1-43.9 fl High RDW SD 45.6 LAB L100.1900 150-450 K/mm3 Low PLT 112 LAB L100.2000 6.2-12.0 fl Normal MPV 11.1 Performed By: #### L100.0500 #### [facility] [address] [place], [place], [id number] CBC-COMPLETE BLOOD CNT Collected: 01/14/2018 Status: F Source: [place] NO DIFF 4:30 AM [facility] REPOSITORY TYPE CODE TESTS RESULT OUT OF RANGE REFERENCE UNITS LAB L100.1000 4.4-11.0 K/mm3 Normal WBC 9.1 LAB L100.1200 4.6-6.2 M/mm3 Low RBC 4.49 LAB L100.1300 13.0-16.5 g/dl Normal HGB 14.2 LAB L100.1400 40-54 % Normal HCT 41.1 LAB L100.1500 80-94 fL Normal MCV 91.5 LAB L100.1600 27.0-32.0 pg Normal MCH 31.6 LAB L100.1700 32-36 g/gl Normal MCHC 34.5 LAB L100.1810 11.6-14.6 % Normal RDW CV 13.8 LAB L100.1820 35.1-43.9 fl High RDW SD 45.7 LAB L100.1900 150-450 K/mm3 Low PLT 100 LAB L100.2000 6.2-12.0 fl Normal MPV 11.1 Performed By: #### L100.0500 #### [facility] [address] [facility] [place], [place], [id number] PARTIAL THROMBOPLAST Collected: 01/14/2018 Status: F Source: [place] TIME 4:30 AM [facility] REPOSITORY TYPE CODE TESTS RESULT OUT OF REFERENCE UNITS RANGE LAB L300.4310 24.1-36.2 Seconds High PTT 45.0 Performed By: #### L300.4310 #### [facility] [address] [place], [place], [id number] BASIC METABOLIC Collected: 01/14/2018 Status: F Source: [place] PROFILE ([place]) 4:30 AM [facility] REPOSITORY TYPE CODE TESTS RESULT OUT OF RANGE REFERENCE UNITS LAB L501.0100 74-106 mg/dL Normal GLU 91 Result Comment: Please note revised GLUCOSE reference range effective 2017. LAB L501.1000 7-18 mg/dL Normal BUN 16 LAB L501.1100 0.70-1.30 mg/dL Low CREAT,SERUM 0.69 Result Comment: The validity of the calculated GFR AND GFRAA in patients over 70 years has not been determined. Clinical correlation is essential. LAB L501.1110 >60 mL/min Normal EST GFR 120 Result Comment: Non- GFR Calc LAB L501.1115 >60 mL/min Normal EST GFR - AA 145 Result Comment: GFR Calc LAB L501.1255 ml/min Normal Estimated CRCL 68.94 LAB L501.1300 10-20 RATIO High BUN/CRE 23.2 LAB L501.2200 8.5-10 mg/dL Low .1 CA 7.9 LAB L501.5300 136-14 mmol/L Normal 5 NA 140 LAB L501.5600 3.5-5. mmol/L Normal 1 K 3.7 LAB L501.5900 98-107 mmol/L Normal CL 102 LAB L501.6100 21.0-3 mmol/L Normal 2.0 CO2 29.0 LAB L501.6200 5-15 Normal GAP 9 Performed By: #### L500.2500 #### [facility] [address] [facility] [place], [address] PARTIAL THROMBOPLAST Collected: 01/13/2018 Status: F Source: [place] TIME 10:15 PM [facility] REPOSITORY TYPE CODE TESTS RESULT OUT OF REFERENCE UNITS RANGE LAB L300.4310 24.1-36.2 Seconds High PTT 71.1 Performed By: #### L300.4310 #### [facility] [address] [place], [address] PARTIAL THROMBOPLAST Collected: 01/13/2018 Status: F Source: [place] TIME 4:20 PM [facility] REPOSITORY TYPE CODE TESTS RESULT OUT OF REFERENCE UNITS RANGE LAB L300.4310 24.1-36.2 Seconds High PTT 56.0 Performed By: #### L300.4310 #### [facility] [address] [place], [address] PROTHROMBIN TIME W/INR Collected: 01/13/2018 Status: F Source: [place] 8:40 AM [facility] REPOSITORY TYPE CODE TESTS RESULT OUT OF RANGE REFERENCE UNITS LAB L300.4150 11.7-14.9 SECONDS High PROTIME 15.5 LAB L300.4200 Normal INR 1.2 Performed By: #### L300.3900, L300.4310 #### [facility] [address] [place], [place], [address] PARTIAL THROMBOPLAST Collected: 01/13/2018 Status: F Source: [place] TIME 8:40 AM [facility] REPOSITORY TYPE CODE TESTS RESULT OUT OF RANGE REFERENCE UNITS LAB L300.4310 24.1-36.2 Seconds Normal PTT 33.7 Performed By: #### L300.3900, L300.4310 #### [facility] [address] [place], [place], [id number] CBC-COMPLETE BLOOD CNT Collected: 01/13/2018 Status: F Source: [place] NO DIFF 5:40 AM [facility] REPOSITORY TYPE CODE TESTS RESULT OUT OF RANGE REFERENCE UNITS LAB L100.1000 4.4-11.0 K/mm3 Normal WBC 10.1 LAB L100.1200 4.6-6.2 M/mm3 Normal RBC 4.84 LAB L100.1300 13.0-16.5 g/dl Normal HGB 15.2 LAB L100.1400 40-54 % Normal HCT 44.5 LAB L100.1500 80-94 fL Normal MCV 91.9 LAB L100.1600 27.0-32.0 pg Normal MCH 31.4 LAB L100.1700 32-36 g/gl Normal MCHC 34.2 LAB L100.1810 11.6-14.6 % Normal RDW CV 14.2 LAB L100.1820 35.1-43.9 fl High RDW SD 46.5 LAB L100.1900 150-450 K/mm3 Low PLT 116 LAB L100.2000 6.2-12.0 fl Normal MPV 10.5 Performed By: #### L100.0500 #### [facility] [address] [place], [place], [id number] BASIC METABOLIC Collected: 01/13/2018 Status: F Source: [place] PROFILE ([place]) 5:40 AM [facility] REPOSITORY TYPE CODE TESTS RESULT OUT OF RANGE REFERENCE UNITS LAB L501.0100 74-106 mg/dL Normal GLU 99 Result Comment: Please note revised GLUCOSE reference range effective 2017. LAB L501.1000 7-18 mg/dL Normal BUN 16 LAB L501.1100 0.70-1.30 mg/dL Low CREAT,SERUM 0.68 Result Comment: The validity of the calculated GFR AND GFRAA in patients over 70 years has not been determined. Clinical correlation is essential. LAB L501.1110 >60 mL/min Normal EST GFR 122 Result Comment: Non- GFR Calc LAB L501.1115 >60 mL/min Normal EST GFR - AA 148 Result Comment: GFR Calc LAB L501.1255 ml/min Normal Estimated CRCL 68.94 LAB L501.1300 10-20 RATIO High BUN/CRE 23.6 LAB L501.2200 8.5-10 mg/dL Low .1 CA 8.2 LAB L501.5300 136-14 mmol/L Normal 5 NA 141 LAB L501.5600 3.5-5. mmol/L Normal 1 K 4.0 LAB L501.5900 98-107 mmol/L Normal CL 106 LAB L501.6100 21.0-3 mmol/L Normal 2.0 CO2 27.0 LAB L501.6200 5-15 Normal GAP 8 Performed By: #### L500.2500 #### [facility] [address]. [place], [place], [address] PHOSPHORUS Collected: 01/13/2018 Status: F Source: [place] 5:40 AM [facility] REPOSITORY TYPE CODE TESTS RESULT OUT OF RANGE REFERENCE UNITS LAB L501.2300 2.5-4.9 mg/dL Low PHOS 2.4 Performed By: #### L501.2300, L501.5200 #### [facility] [address] [place], [address] MAGNESIUM Collected: 01/13/2018 Status: F Source: [place] 5:40 AM [facility] REPOSITORY TYPE CODE TESTS RESULT OUT OF RANGE REFERENCE UNITS LAB L501.5200 1.6-2.6 mg/dL Normal MG 1.7 Performed By: #### L501.2300, L501.5200 #### [facility] [address] [place], [address] CONSULTATION Observed: 01/13/2018 Status: F Source: [place] 5:38 AM [facility] REPOSITORY [facility] Medical Records Department [address] [place] [address] Consultation 01/12/18 0956 MR#: [id number] Acct: [id number] Name: ROHAN OLIVIA Rep #: [id number] : 1945 72 From: Ian Barragan MD PCP: Brandon Cantor MD Status: [facility] Problem List (1) Acute respiratory failure with hypoxia Status: Acute (2) Closed right hip fracture Status: Acute Qualifiers: Encounter type: initial encounter Qualified Code(s): S72.001A - Fracture of unspecified part of neck of right femur, initial encounter for closed fracture (3) BPH (benign prostatic hyperplasia) Status: Chronic Qualifiers: Lower urinary tract symptom presence: symptoms present Lower urinary tract symptom detail: urinary frequency Qualified Code(s): N40.1 - Benign prostatic hyperplasia with lower urinary tract symptoms; R35.0 - Frequency of micturition (4) Depression Status: Chronic Qualifiers: Depression Type: major depressive disorder Major depression recurrence: recurrent Active/Remission status: in full remission Qualified Code(s): F33.42 - Major depressive disorder, recurrent, in full remission (5) Hypercholesterolemia Status: Chronic Reason for Consult Date of Consultation: 01/12/18 Reason for Consultation: Acute hypoxic respiratory failure History of Present Illness: The patient is a 72 year old M, with past medical history listed below, who presented to [facility] on 01/11/2018 with acute hip pain following a fall. Patient reports that he was of his usual health and was walking through his garage. Patient fell after tripping over something on the floor. Patient had such excruciating pain that he was unable to stand. On presentation to the emergency room, patient was noted to be 90% on room air with an elevated blood pressure of 200/80 and complaining of severe right hip pain. Laboratory workup did show an elevated hemoglobin of 18 and a right x-ray showed a impacted right hip fracture. Patient was admitted to the floor for evaluation. While on MedSurg, patient was noted to require 2 L initially at approximately 2 PM yesterday. However, overnight patient's hypoxemia had progressed to the point where he required 6 L nasal cannula to maintain acceptable saturation above 90%. A pulmonary consult was obtained for further evaluation. Patient does report a long smoking history in the past. Patient has been seen by Dr. Anderson at the [facility] and reportedly received a full workup as recently as December. Patient states that he was told that his pulmonary function tests were normal except for his obesity. Patient has never required supplemental oxygen previously. Patient denies any history of DVT or PE. Patient does not believe a loss of consciousness led to his mechanical fall. Patient works at [employer] and estimates that he walks 1-2 miles per day. Patient does not report any worsening in respiratory status prior to the fall. Patient does state that he can become dyspneic with walking up hills at baseline. Patient does state that he has been questioned about his elevated hemoglobin levels previously, but no interventions have been required. Patient is unaware of any cardiac dysfunction. Did speak with Dr. Connell prior to transfer for repair of hip fracture. Plan was to possibly do a spinal with conscious sedation. If intubation were required, patient was to come to the intensive care unit postoperatively intubated. Past Medical History Past Medical History (Chronic Problems): Chronic Problems (Last Updated 01/11/18 @ 18:02 by Jaspreet Gamez DO) BPH (benign prostatic hyperplasia) (Chronic) Depression (Chronic) Hypercholesterolemia (Chronic) Medical History: Medical History (Last Updated 01/11/18 @ 18:02 by Jaspreet Gamez DO) Anxiety F41.9 Chronic respiratory failure with hypoxia J96.11 HTN (hypertension) I10 Allergies No Known Allergies Allergy (Verified 01/11/18 14:07) Home Medications: Ambulatory Orders Medication Instructions Recorded Surgical History: - - 2 previous colonoscopies, colon surgery with reversal of colostomy, finger surgery, previous tonsillectomy Lives: Spouse/ Significant Other Smoking Status: Former smoker Tobacco Use: Cigarettes Alcohol: None Drugs: None - *Family History Maternal History Items: Heart Disease Review of Systems Comment: See HPI, otherwise negative 10 systems. Patient Problems: Active and Suspected Problems (Last Updated 01/11/18 @ 18:02 by Jaspreet Gamez DO) Closed right hip fracture (Acute) Acute respiratory failure with hypoxia (Acute) Objective: Hip x-ray was reviewed showing fracture. Chest x-ray shows increased interstitial infiltrates bilaterally. - Physical Exam General: Alert, Oriented x3, Cooperative, No apparent distress, - - Obese. Speaking in full sentences. HEENT: Atraumatic, PERRLA, EOMI, Normocephalic, - - Slight injection without icterus. Oral: Moist Mucosa, No Gingival or Mucosal Lesions/ Ulcerations, - - Edentulous. Neck: Supple, No Nodes, Trachea Midline, JVD, Right Lungs: No rhonchi, No wheeze, No rales, Diminished, - - Symmetric expansion. No dullness to percussion. Cardiovascular: Regular rate, Regular Rhythm, Normal S1, Normal S2, No murmurs, No rub noted, No Gallop Abdomen: Bowel Sounds Present, Soft, Non Tender, Non-Distended, Obese Extremities: No cyanosis, No edema, Capillary Refill Less than 3 Seconds, Clubbing, - - External rotation noted of the right leg. Skin: No rashes, No breakdown Musculoskeletal: No Tenderness to Palpation of Joints or Extremities Lymphatic: No Cervical, Supraclavicular, or Inguinal Adenopathy Neurological: Cranial nerves II-XII grossly intact, Neuro grossly intact, - - Did not check motor strength of right lower extremity. Sensation is intact. No facial droop appreciated. Psych/Mental Status: Alert and oriented to time, place, person, mood and affect Vital Signs Temp Pulse Resp BP Pulse Ox 37.7 C H 93 20 H 160/68 H 90 01/12/18 09:01 01/12/18 09:01 01/12/18 09:01 01/12/18 09:01 01/12/18 09:01 Oxygen Flow Rate (L/min) 6 Oxygen Delivery Method Nasal Cannula Weight: 97.9 kg Body Mass Index (BMI) 30.5 Intake and Output for Last 24 Hours Intake Total 1200 / 1200 Output Total 1100 / 1100 Balance 100 / 100 Laboratory Tests Past 24 Hrs WBC RBC Hgb Hct MCV MCH MCHC RDW RDW Differential Plt Count MPV Immature Gran % (Auto) Neut % (Auto) Lymph % (Auto) Duval % (Auto) Clinical Impression(s) from Imaging Studies Hip/Pelvis X-Ray 01/11/18 14:57 IMPRESSION: Right proximal femoral subcapital acute fracture as described. Fairly severe degenerative left hip as described. Electronically Signed: William Jacques, at 16:19 EDT Tel , Service support , Chest X-Ray 01/11/18 21:00 IMPRESSION: Diffuse pulmonary interstitial prominence. Electronically Signed: Javier Granger DO at 22:00 EDT Tel [phone], Service support , Assessment/Plan All Active Problems (Last Updated 01/11/18 @ 18:02 by Jaspreet Gamez DO) Closed right hip fracture (Acute) Acute respiratory failure with hypoxia (Acute) RECOMMENDATIONS: 1. Surgical intervention with conscious sedation and spinal possible 2. Observation in intensive care unit following intervention 3. Obtain CTA of chest once stabilized postoperatively 4. PT/OT evaluations 5. Obtain old records from [facility] IMPRESSIONS: 1. Acute hypoxic respiratory failure Unclear etiology at this time. Patient did present with significant hypertension and may have an element of flash pulmonary edema from diastolic congestive heart failure. Patient does have a smoking history in the past, but reportedly has normal pulmonary function testing. Patient does have an elevated hemoglobin and clubbing on exam indicating that hypoxemia may be care home. Will obtain old records from [facility] for confirmation. Patient has had a hip fracture and fat embolus would be a possibility. CT with contrast can be ordered once patient is stabilized postoperatively. Patient will come to the intensive care unit postoperatively. CODE STATUS was verified as full code. Anesthesia to attempt spinal with conscious sedation. If intubated, will work on extubation in the intensive care unit 2. Acute right hip fracture status post mechanical fall Patient is to go for operative correction later this morning. Will attempt spinal anesthesia to limit respiratory difficulties. PT/OT will be consulted. 3. Obesity/BPH/hypertension/advanced age Complicates care, management, recovery and prognosis. Addendum 1343: Patient was able to have surgery under spinal and conscious sedation. Patient presented to the intensive care unit requiring nonrebreather to maintain saturations. Over the course of ICU stay, patient saturations have slightly improved. A CT of the chest with contrast was obtained showing some basilar atelectasis, pronounced airways with borderline bronchiectasis and emphysematous changes. I could not appreciate any embolism. Will obtain an echocardiogram. Patient is not reporting any dyspnea at this time, so shunt physiology is suspected. Patient will be monitored in the intensive care unit overnight. Code Visit Inpatient Keith AND M: [id number] Init Hosp L3 01/13/18 0538 <Electronically signed by Ian Barragan MD> Date Ian Barragan MD Cosigner Signature (if applicable): Date CC: Ian Barragan MD; Ruslan Casarez MD; Brandon Cantor MD Signed ECHOCARDIOGRAM COMPLETE Observed: 01/12/2018 Status: F Source: [place] 4:42 PM [facility] REPOSITORY [facility] Cardiovascular Services [address] [place] [address] Echo Complete 01/12/18 1451 MR#: [id number] Acct: [id number] Name: ROHAN OLIVIA Rep #: [id number] : 1945 72 From: Jose Armando Rao MD Attending Dr: Yisel Lanza MD Status: ADM IN Ordering Dr: Ian Barragan MD Date: 01/12/18 Location: ICU Sex: M C Admitted: 01/11/18 Reason For Study: Dyspnea/SOB Procedure This was a 2D Doppler, Color Flow transthoracic echocardiogram. Exam performed portable in ICU/CCU. Left Ventricle Normal size and thickness. The estimated ejection fraction is 75 %. Stage 1 diastolic dysfunction. No regional wall motion abnormalities noted. Right Ventricle Moderately dilated right ventricle. Mild to moderate global right ventricular systolic dysfunction. There are regional wall motion abnormalities. Atria Normal left atrium. Normal right atrium. Normal atrial septum. Mitral Valve The mitral valve is structurally normal. No prolapse or stenosis seen. Tricuspid Valve Normal tricuspid valve. Trivial tricuspid valve insufficiency. Right ventricular systolic pressure estimated to be 60 mmHg. Severe pulmonary hypertension. Aortic Valve Trisinus/trileaflet aortic valve. Mild diffuse aortic valve thickening. Pulmonic Valve The pulmonic valve is not well visualized. Great Vessels Normal aortic root. Normal arch. Normal inferior vena cava. Inferior vena cava collapse with sniff. Pericardium/Pleural No pericardial effusion. MMode/2D Measurements AND Calculations LVIDd: 5.3 cm IVSd: 0.98 cm Ao root diam: 3.6 cm LVIDs: 3.1 cm LVPWd: 1.0 cm RVDd: 4.6 cm FS: 40.7 % LAV(MOD-bp): 38.0 ml EDV(MOD-sp4): 89.3 ml SV(MOD-sp4): 55.5 ml LAV(MOD-bp) Indexed: 17.7 ml/m2 ESV(MOD-sp4): 33.8 ml LAV(MOD-sp2): 37.5 ml EF(MOD-sp4): 62.2 % LAV(MOD-sp4): 35.1 ml LA A4 area: 15.6 cm2 RA A4 area: 14.7 cm2 Doppler Measurements AND Calculations MV E max maegan: 72.2 cm/sec Lat Peak E' Maegan: 10.4 cm/sec Med Peak E' Maegan: 7.8 cm/sec MV A max maegan: 91.4 cm/sec E/E' lat: 6.9 E/E' med: 9.2 MV E/A: 0.79 Ao V2 max: 154.5 cm/sec LV V1 max: 107.5 cm/sec PA V2 max: 122.3 cm/sec Ao max P.6 mmHg LV V1 max P.6 mmHg Ao V2 mean: 102.4 cm/sec Ao mean P.7 mmHg Ao V2 VTI: 26.9 cm TR max maegan: 369.8 cm/sec TR max P.7 mmHg Interpretation Summary The estimated ejection fraction is 75 %. Stage 1 diastolic dysfunction. Moderately dilated right ventricle. Trivial tricuspid valve insufficiency. Right ventricular systolic pressure estimated to be 60 mmHg. Severe pulmonary hypertension. Probable acute apical RV strain possibly c/w acute increase in pulmonary pressures. D/w Dr Barragan Ordering Physician: Ian Barragan Referring Physician: Brandon Cantor Performed By: Jenniffer Wood RDCS, RVT 01/12/18 1641 Date Jose Armando Rao MD CC: Ian Barragan MD; Yisel Lanza MD; Brandon Cantor MD Date Dictated: 01/12/18 1451 Date Transcribed: 01/12/18 1641 Gym Instructor: Signed CTA CHEST W/WO Observed: 01/12/2018 Status: F Source: [place] CONTRAST 12:28 PM [facility] REPOSITORY [facility] Imaging Services [address] [place] [address] CTA Chest W/WO Contrast MR#: [id number] Acct: [id number] Name: ROHAN OLIVIA Rep #: [id number] : 1945 M 72 From: Jabari Jackson MD PCP: Brandon Cantor MD Status: ADM IN Study: CTA Chest W/WO Contrast Date of Exam: 01/12/18 Exam# [id number] Ordering Dr: Ian Barragan MD STUDY: CTA CHEST REASON FOR EXAM: Male, 72 years old. Shortness of breath. Evaluate for pulmonary embolus. RADIATION DOSAGE (If Supplied By Facility): CTDIvol = ( 23.31 ) mGy, DLP = ( 771.35 ) mGycm TECHNIQUE: The examination was performed with the intravenous administration of intravenous contrast material. Post-processing of the angiographic images was performed, with multiplanar reformation and 3D reconstruction. Individualized dose optimization techniques were used for this CT. COMPARISON: None. FINDINGS: The study is limited by patient motion. There are no central or proximal segmental pulmonary emboli. The distal segmental and subsegmental branches are not adequately evaluated. There is no evidence of thoracic aortic aneurysm or dissection. The heart and pericardium are within normal limits. There are coronary artery calcifications noted. There is mild mediastinal lymphadenopathy with the largest node measuring 1.4 cm in the subcarinal region. There are small bilateral pleural effusions with overlying atelectasis. There are no focal infiltrates. There is mild septal thickening, consistent with mild pulmonary vascular congestion. There is no pneumothorax. Images through the upper abdomen demonstrate no significant abnormality. There are no destructive osseous lesions. CT/CTA Chest W/WO Contrast IMPRESSION: Study limited by motion. No central or proximal segmental pulmonary embolus. No evidence of thoracic aortic aneurysm or dissection. Small bilateral pleural effusions overlying atelectasis. Mild pulmonary vascular congestion. Mediastinal lymphadenopathy. Coronary artery disease. Electronically Signed: Jabari Jackson, at 16:00 EDT Tel , Service support , CC: Ian Barragan MD; Brandon Cantor MD Gym Instructor: Signed Nadiya R STAPH AUREUS Collected: 01/12/2018 Status: F Source: [place] DNA BY PCR 11:05 AM [facility] REPOSITORY TYPE CODE TESTS RESULT OUT OF RANGE REFERENCE UNITS LAB L8200.1100 Negative Normal MRSA Negative RESULT Performed By: #### L8200.1000 #### [facility] [address] [place], [address] OPERATIVE REPORT Observed: 01/12/2018 Status: F Source: [place] 10:28 AM [facility] REPOSITORY [facility] Medical Records Department [address] [place] [address] Operative Report 01/12/18 1025 MR#: [id number] Acct: [id number] Name: ROHAN OLIVIA Rep #: [id number] : 1945 72 From: Robert Marie DO PCP: Brandon Cantor MD Status: ADM IN Y Location: ICU [place] [address] Report of Operation Date of Procedure: 01/12/18 Pre-Operative Diagnosis: Impacted right femoral neck fracture Post-Operative Diagnosis: Same Surgery/Procedure Performed:: Total hip arthroplasty right Description of Surgical Findings:: Transcervical femoral neck fracture kennel helper: Collin Fournier Type of Anesthesia:: Spinal Anesthesiologist: Jaspreet Connell Special Medications: txa Specimen's removed: Bone and soft tissue Estimated Blood Loss (mL): 100 Fluids Replaced: See anesthesia report Description of Procedure: Implants: Newton Accolade 2 size 6 127 valgus with 56 mm cup neutral neck and appropriate MDM components Surgical indications: Patient has suffered a femoral neck fracture. Patient is quite active and underwent consultation with Dr. Casarez. I am taking over the care of this patient and discussed the procedure with the patient at length. Because of his activity as well as some generalized right-sided hip pain prior to the injury we will proceed with a total hip arthroplasty. Consent form was signed Procedure description: The patient was greeted in the preoperative area the right hip was marked with surgical marker preoperative antibiotics administered. The patient was then taken to or suite in stable condition. Preoperative tranexamic acid was also utilized. Once the patient was placed in the supine position on the operating room table and once adequate anesthesia was obtained they were then placed in the lateral decubitus position with the surgical hip facing the field. All bony prominences were well-padded. A commercial hip position was utilized. The appropriate extremity was then prepped and draped in usual sterile fashion. Ioban was placed on the skin. Surgical timeout was performed and surgery was commenced. Standard anterolateral approach to the hip was then performed incision was planned and carried out with a #10 blade. Dissection was then carried length of the incision to the IT band which was split proximally and distally. A Charnley retractor was then placed for soft tissue retraction exposing the gluteus medius. The hip was then approached through a transgluteal approach and dislocated through an anterior capsulectomy. Severe eburnation of bone was noted periarticular osteophytes were identified consistent with severe end-stage osteoarthritis. A femoral osteotomy was then created approximately 1 fingerbreadth above the lesser trochanter. This was measured and placed on the back table. Once this was complete acetabular retractors were placed anteriorly and posteriorly and a 4 mm Steinmann pin was placed anterior superior aspect of the acetabulum for soft tissue retention. Labrum was then removed from the acetabulum exposing the entire cup of the acetabulum. Sequential reaming was then commenced and the acetabulum was medialized and sequentially widened in order to accommodate appropriate size cup. The acetabular cup was then impacted into position to the appropriate depth referencing approximately 30 inversion 45 of inclination. Excellent purchase was obtained. No screws were placed in the cup. MDM liner was then placed in the locking mechanism of the acetabulum, locking mechanism was engaged and confirmed to be locked. Attention was then turned to the femoral preparation. The hip was placed in the 90/90 position and a lateralizing box osteotome was utilized. Femoral starting awl was used followed by sequential broaching to the appropriate size. Excellent purchase was obtained with the stem no stem subsidence and excellent rotational stability was confirmed. A calcar reamer was then used in the trial head neck was placed on the broach. The hip was then located and taken through full range of motion flexion internal and external rotation as well as extension. Excellent stability was noted no impingement was identified of the components and leg lengths appear to be appropriate. The hip was at this point dislocated and the trial femoral components were removed. The final femoral stem was then implanted and impacted to the appropriate depth. Again excellent purchase was obtained no stem subsidence or rotational instability was noted. The hip was once again trialed and confirmation of leg length and stability was performed. Soft tissue tension also appeared to be appropriate. At this point the hip was redislocated and the trunnion was cleaned and dried meticulously in the appropriate size femoral head was placed on the clean dry trunnion using a 12/14 Morris taper. The hip was once again relocated and again taken through full range of motion. I did inject a cocktail of postoperative pain medication in the deep and superficial tissues. A quick Betadine bath was performed followed by copious irrigation. Anatomic closure of the gluteus medius and minimus was performed with #1 Vicryl [id number] type fashion followed by closure of the IT band with #1 Vicryl 0 Vicryl was utilized in subcutaneous tissue and surgical mitzi were placed in the skin. A well-padded nonadherent dressing was applied. Patient was taken to PACU in stable condition. No complications were identified. Will follow standard postop protocol for total hip arthroplasty. Patient must use assistive device for ambulation for approximately 6 weeks of the gluteal musculature heals. Physician industrial hire sales assistant was integral in all portions of this procedure. They assisted with positioning the patient, draping the extremity, holding retractors, closing the wound, and applying the dressing. This was all done under my direct supervision. The physician industrial hire sales assistant was essential for a successful, efficient surgery. - Admit VTE Documentation VTE Present on Admission: Yes VTE Mechan Device Prophylaxis: SCD's, Thigh High HARSHIL Hose VTE Pharm Prophylaxis ordered?: Yes 01/12/18 1028 <Electronically signed by Robret Marie DO> Date Robert Marie DO CC: Ian Barragan MD; Robert Marie DO; Ruslan Casarez MD; Brandon Cantor MD Signed HIP MIN 2 VIEWS Observed: 01/12/2018 Status: F Source: [place] (PORTABLE) 9:34 AM [facility] REPOSITORY [facility] Imaging Services [address] [place] [address] Hip Min 2 Views (Portable) MR#: [id number] Acct: [id number] Name: ROHAN OLIVIA Rep #: [id number] : 1945 M 72 From: Jabari Jackson MD PCP: Brandon Cantor MD Status: ADM IN Study: Hip Min 2 Views (Portable) Date of Exam: 01/12/18 Exam# [id number] Ordering Dr: Robert Marie DO STUDY: X-RAY - PELVIS AND RIGHT HIP REASON FOR EXAM: Male, 72 years old. Post op right hip arthroplasty TECHNIQUE: Radiological exam, hip, unilateral, with pelvis when performed; 2 or 3 views. COMPARISON: 01/11/2018 FINDINGS: The patient is status post right hip arthroplasty. The hardware is intact and alignment is satisfactory. There is no acute fracture or dislocation. There is a Crawford catheter in place. RAD/Hip Min 2 Views (Portable) IMPRESSION: Status post right hip arthroplasty with intact hardware in satisfactory alignment. Electronically Signed: Jabari Jackson, at 17:12 EDT Tel , Service support , CC: Robert Marie DO; Brandon Cantor MD Gym Instructor: Signed CBC W/DIFF, AUTOMATED Collected: 01/12/2018 Status: F Source: [place] 5:08 AM [facility] [place] REPOSITORY TYPE CODE TESTS RESULT OUT OF RANGE REFERENCE UNITS LAB L100.1000 4.4-11.0 K/mm3 Normal WBC 9.9 LAB L100.1200 4.6-6.2 M/mm3 Normal RBC 5.54 LAB L100.1300 13.0-16.5 g/dl High HGB 17.4 LAB L100.1400 40-54 % Normal HCT 51.2 LAB L100.1500 80-94 fL Normal MCV 92.4 LAB L100.1600 27.0-32.0 pg Normal MCH 31.4 LAB L100.1700 32-36 g/gl Normal MCHC 34.0 LAB L100.1810 11.6-14.6 % Normal RDW CV 14.0 LAB L100.1820 35.1-43.9 fl High RDW SD 47.2 LAB L100.1900 150-450 K/mm3 Low PLT 108 LAB L100.2000 6.2-12.0 fl Normal MPV 10.6 LAB L100.2100 47-70 % High NEUT% 81.4 LAB L100.2200 19-41 % Low LY% 7.7 LAB L100.2300 0-10 % Normal MONO% 8.2 LAB L100.2400 0-5 % Normal EO% 2.3 LAB L100.2500 0-1 % Normal BASO% 0.2 LAB L100.2550 0.0-0.9 % Normal IM GRAN % 0.200 Result Comment: IG% - Immature Granulocytes (promyelocytes, myelocytes and metamyelocytes) > 1% indicates that a LEFT SHIFT is Present. LAB L100.2620 2.0-7.7 X10 3/uL High Absolute Neut 8.1 LAB L100.2720 0.83-4.51 X10 3/ul Low Absolute Lymph 0.76 Performed By: #### L100.0100 #### [facility] [address] [place], [place], [address] BASIC METABOLIC Collected: 01/12/2018 Status: F Source: [place] [facility]FILE ([facility]) 5:08 AM [facility] REPOSITORY TYPE CODE TESTS RESULT OUT OF RANGE REFERENCE UNITS LAB L501.0100 74-106 mg/dL Normal GLU 101 Result Comment: Fasting Glucose result from 100 to 125 mg/dL suggests IMPAIRED HOMEOSTASIS per A.D.A. criteria. Please note revised GLUCOSE reference range effective 2017. LAB L501.1000 7-18 mg/dL Normal BUN 14 LAB L501.1100 0.70-1.30 mg/dL Normal CREAT,SERUM 0.80 Result Comment: The validity of the calculated GFR AND GFRAA in patients over 70 years has not been determined. Clinical correlation is essential. LAB L501.1110 >60 mL/min Normal EST GFR 101 Result Comment: Non- GFR Calc LAB L501.1115 >60 mL/min Normal EST GFR - AA 122 Result Comment: GFR Calc LAB L501.1255 ml/min Normal Estimated CRCL 86.18 LAB L501.1300 10-20 RATIO Normal BUN/CRE 17.5 LAB L501.2200 8.5-10 mg/dL Low .1 CA 8.2 LAB L501.5300 136-14 mmol/L Normal 5 NA 143 LAB L501.5600 3.5-5. mmol/L Normal 1 K 4.0 LAB L501.5900 98-107 mmol/L High CL 108 LAB L501.6100 21.0-3 mmol/L Normal 2.0 CO2 26.0 LAB L501.6200 5-15 Normal GAP 9 Performed By: #### L500.2500 #### [facility] [address] [facility] [place], [place], [address] TYPE AND SCREEN Collected: 01/12/2018 Status: F Source: [place] 5:08 AM [facility] REPOSITORY Order Comment: Reason for Type AND Screen/Red Cells: SURGERY Surgery Date: 01/12/18 Type of Surgery: FRACTURED HIP TYPE CODE TESTS RESULT OUT OF RANGE REFERENCE UNITS LAB B10.0800 A Normal BLOOD TYPE GEL POSITIVE LAB B100.4000 Normal Antibody NEGATIVE Screen Performed By: #### B101.7450 #### [facility] [address] [facility] [place], [address] VITAMIN D,25 HYDROXY Collected: 01/12/2018 Status: F Source: [place] 5:08 AM [facility] REPOSITORY TYPE CODE TESTS RESULT OUT OF REFERENCE UNITS RANGE LAB L506.1000 29.95-100.01 ng/mL Low Vitamin D 19.4 25-OH Result Comment: Vitamin D 25(OH) Status Range Deficiency <20 ng/mL (50nmol/L) Insuffciency 20 - 30 ng/mL (50 - 75 nmol/L) Sufficiency 30 - 100 ng/mL (75 - 250 nmol/L) Toxicity >100 ng/mL (>250 nmol/L) Performed By: #### L506.1000 #### [facility] [address] [place], [address] CONSULTATION Observed: 01/11/2018 Status: F Source: [place] 8:53 PM [facility] REPOSITORY [facility] Medical Records Department [address] [place] [address] Consultation 01/11/182042 MR#: [id number] Acct: [id number] Name: ROHAN OLIVIA Rep #: [id number] : 1945 72 From: Ruslan Casarez MD PCP: Brandon Cantor MD Status: ADM IN Y Location: [place]3 [id number] Reason for Consult Date of Consultation: 01/11/18 History of Present Illness: The patient is a 72 year old male with a history of some intermittent pre-existing hip pain. Also a history of pre-existing knee arthritis pain. He states that he was working on a lawnmower today when he tripped over something, falling onto his right hip and right elbow. He had severe right hip pain. He was not able to ambulate. Right elbow pain has not been severe. He denies chest pain or shortness of breath. Denies head injury or loss of consciousness. Patient does have a history of polycythemia, as well as a history of low oxygen saturations reportedly previously with pulmonary workup that was negative at the [facility]. He did quit smoking 20 years ago. Patient currently works full-time at [employer], on his feet 8 hours a day 5 days a week. He would like to go back to work. [] Past Medical History Medical History: Medical History (Last Updated 01/11/18 @ 18:02 by Jaspreet Gamez DO) Anxiety F41.9 Chronic respiratory failure with hypoxia J96.11 HTN (hypertension) I10 Allergies No Known Allergies Allergy (Verified 01/11/18 14:07) Home Medications: Ambulatory Orders Medication Instructions Recorded Surgical History: - - 2 previous colonoscopies, colon surgery with reversal of colostomy, finger surgery, previous tonsillectomy Lives: Spouse/ Significant Other Smoking Status: Former smoker Tobacco Use: Cigarettes Alcohol: None Drugs: None - *Family History Maternal History Items: Heart Disease Patient Problems: Active and Suspected Problems (Last Updated 01/11/18 @ 18:02 by Jaspreet Gamez DO) Closed right hip fracture (Acute) Objective: Right hip has mild shortening and external rotation. Right hip has pain on palpation. Right hip has pain with rotation and axial loading done gently. Left hip had no pain on palpation. Left hip has no pain with rotation. No calf pain or swelling bilaterally. Negative Homans sign bilaterally. Good active motion toes and ankles. No bruising or swelling about the right hip region. He does have a right elbow abrasion. Good elbow motion and strength. X-rays: AP pelvis AP and lateral right hip shows a right hip displaced femoral neck fracture, valgus impacted no severe pre-existing hip joint arthritis identified. Laboratory work and vital signs reviewed. Medication list reviewed - Physical Exam Vital Signs Temp Pulse Resp BP Pulse Ox 97.8 F 83 20 H 152/76 H 92 01/11/18 19:01 01/11/18 19:01 01/11/18 19:01 01/11/18 19:01 01/11/18 19:01 Oxygen Flow Rate (L/min) 4 Oxygen Delivery Method Nasal Cannula Weight: 97.9 kg Body Mass Index (BMI) 30.5 Assessment/Plan All Active Problems (Last Updated 01/11/18 @ 18:02 by Jaspreet Gamez DO) Closed right hip fracture (Acute) Right hip femoral neck fracture with some displacement: Surgical options discussed: Possibility of closed reduction and pinning, possibility of hemiarthroplasty or total hip replacement discussed. He understands Dr. Marie will be doing his surgery based on availability. He understands Dr. Marie will discuss with him surgical options and plan as well as expected outcome and rehab. He also understands Dr. Marie will be leaving the area in the next few weeks and I can take over his orthopedic care at that point. Risk of surgery including but not limited to from operative or postoperative complications. Risk of anesthetic complications such as heart attacks, strokes, seizures, or . Risk of infections. Risk of damage to nerves arteries tendons. Risk of inadvertent fractures or dislocations. Risk of bone or wound healing complications. Possibility of nonunion malunion pain stiffness weakness. Possible need for further surgery such as hardware removal. Risk of DVT PE and other potential complications could lead to or disability explained. No guarantees were stated or implied. All of their questions were answered. Appropriate informed consent was obtained for surgical intervention. #2 medical problems including hypertension, high cholesterol, polycythemia, history of poor oxygen saturations, obesity -further evaluation and treatment per hospitalist service as needed Patient reportedly cleared for surgery based on hospitalist note. EKG and chest x-ray have been ordered 01/11/182052 <Electronically signed by Ruslan Casarez MD> Date Ruslan Casarez MD Cosigner Signature (if applicable): Date CC: Ruslan Casarez MD; Brandon Cantor MD Signed CHEST 1 VIEW Observed: 01/11/2018 Status: F Source: [place] (PORTABLE) 8:28 PM [facility] REPOSITORY [facility] Imaging Services [address] [place] [address] Chest 1 View (Portable) MR#: [id number] Acct: [id number] Name: ROHAN OLIVIA Rep #: [id number] : 1945 M 72 From: Javier Granger DO PCP: Brandon Cantor MD Status: ADM IN Study: Chest 1 View (Portable) Date of Exam: 01/11/18 Exam# [id number] Ordering Dr: Ruslan Casarez MD STUDY: X-RAY CHEST REASON FOR EXAM: Male, 72 years old. Hip fracture TECHNIQUE: Single frontal view COMPARISON: None. FINDINGS: The lungs are expanded. Bilateral pulmonary interstitial prominence. No focal consolidation. Normal size heart. Normal mediastinum and zach. Normal visualized pulmonary arteries. Normal visualized aortic arch and descending thoracic aorta. Mild degenerative changes of the thoracic spine. Normal visualized ribs, clavicles, and shoulders. There is no demonstrated abnormality of the visualized soft tissue structures of the upper abdomen. RAD/Chest 1 View (Portable) IMPRESSION: Diffuse pulmonary interstitial prominence. Electronically Signed: Javier Granger DO at 22:00 EDT Tel [phone], Service support , CC: Ruslan Casarez MD; Brandon Cantor MD Gym Instructor: Signed HISTORY AND PHYSICAL Observed: 01/11/2018 Status: F Source: [place] EXAM 6:11 PM [facility] REPOSITORY [facility] Medical Records Department [address] [place] [address] History and Physical 01/11/18 1759 MR#: [id number] Acct: [id number] Name: ROHAN OLIVIA Rep #: [id number] : 1945 72 From: Jaspreet Gamez DO PCP: Brandon Cantor MD Status: REG ER Y Location: ED Problem List (1) Closed right hip fracture Status: Acute Qualifiers: Encounter type: initial encounter Qualified Code(s): S72.001A - Fracture of unspecified part of neck of right femur, initial encounter for closed fracture History of Present Illness Date of Admission: 01/11/18 Chief Complaint: fall and right hip pain. The patient is a 72 year old M today the patient is doing some chores and was in his garage where he thinks he tripped over a the bed of his lawnmower and fell on his right side. Patient landed on his right buttocks and also on his right elbow. Patient had pain. Presented to the emergency room and was found to have an impacted fracture of the right hip. The emergency room contacted Dr. Casarez orthopedics and stated that someone from their service will see the patient. Patient being admitted through the medical service for a right hip fracture due to a mechanical fall. [] Past Medical History Medical History: Medical History (Last Updated 01/11/18 @ 18:02 by Jaspreet Gamez DO) Anxiety F41.9 Chronic respiratory failure with hypoxia J96.11 HTN (hypertension) I10 Allergies No Known Allergies Allergy (Verified 01/11/18 14:07) Home Medications: Ambulatory Orders Medication Instructions Recorded Lives: Spouse/ Significant Other Smoking Status: Former smoker Tobacco Use: Cigarettes Alcohol: None Drugs: None - *Family History Maternal History Items: Heart Disease Review of Systems Constitutional: Denies: Anorexia, Chills, Fever Eyes: Denies: Blurred vision, Double vision HEENT: Denies: Head Aches, Sinus Congestion, Sinus Drainage Cardiovascular: Denies: Chest Pain, Palpitations Respiratory: Denies: Cough, Shortness of breath at rest, Sputum production Gastrointestinal: Denies: Abdominal Pain, Nausea, Vomiting Genitourinary: Denies: Dysuria Musculoskeletal: Denies: Joint Pain, Joint Tenderness Skin: Denies: Rash, Wounds Neurological: Denies: Numbness, Tingling, Focal weakness Psychiatric: Reports: Anxiety. Denies: Depression Hematologic/ Lymphatic: Denies: Easy Bruising, Easy Bleeding, Hx of blood clot VTE Information - Inpt Only VTE Present on Admission: No VTE Mechan Device Prophylaxis: SCD's VTE Pharm Prophylaxis ordered?: No Patient Problems: Active and Suspected Problems Closed right hip fracture (Acute) - Physical Exam General: Alert, Cooperative, No apparent distress HEENT: Atraumatic, Normocephalic Oral: Moist Mucosa, No Gingival or Mucosal Lesions/ Ulcerations Neck: No Nodes, Thyroid Normal Size and Texture Lungs: Clear to auscultation, Normal air movement, No rhonchi, No wheeze Cardiovascular: Regular rate, Regular Rhythm, Normal S1, Normal S2, No murmurs Abdomen: Bowel Sounds Present, Soft, Non Tender, Non-Distended Extremities: No edema, No Calf Tenderness Skin: No rashes, No breakdown Musculoskeletal: No Muscle Wasting Neurological: Neuro grossly intact, Muscle tone normal, Sensory exam intact to light touch and pain Psych/Mental Status: Normal Affect, Appropriate Vital Signs Temp Pulse Resp BP Pulse Ox 36.7 C 83 16 195/68 H 88 01/11/18 14:03 01/11/18 17:02 01/11/18 17:02 01/11/18 17:02 01/11/18 17:02 Oxygen Flow Rate (L/min) 4 Oxygen Delivery Method Nasal Cannula Weight: 101.151 kg Body Mass Index (BMI) 31.5 Laboratory Tests Past 24 Hrs WBC 6.2 RBC 5.66 Hgb 18.0 H* Hct 52.0 MCV 91.9 MCH 31.8 MCHC 34.6 Assessment/Plan All Active Problems Closed right hip fracture (Acute) 1. Right hip fracture * Due to mechanical fall * Patient has a very good performance status and no active issues to prohibit him from undergoing surgery. * Patient is medically cleared to proceed with surgery 2. Hypertension * Accelerated * Continue with amlodipine * Clonidine as needed for systolic blood pressure greater than 180 3. Polycythemia * Unclear this is acute or chronic as there is no baseline labs to compare to * Will monitor * IV fluids 4. DVT prophylaxis with SCDs. After surgery, will be at the discretion of orthopedics. Code Visit Inpatient E AND M: 11203 Init Hosp L3 01/11/18 1811 <Electronically signed by Jaspreet Gamez DO> Date Jaspreet Gamez DO Cosigner Signature: Date (if applicable) CC: Jaspreet Gamez DO; Brandon Cantor MD Signed BASIC METABOLIC Collected: 01/11/2018 Status: F Source: [place] PROFILE ([place]) 2:31 PM [facility] REPOSITORY TYPE CODE TESTS RESULT OUT OF RANGE REFERENCE UNITS LAB L501.0100 74-106 mg/dL Normal GLU 103 Result Comment: Fasting Glucose result from 100 to 125 mg/dL suggests IMPAIRED HOMEOSTASIS per A.D.A. criteria. Please note revised GLUCOSE reference range effective 2017. LAB L501.1000 7-18 mg/dL Normal BUN 16 LAB L501.1100 0.70-1.30 mg/dL Normal CREAT,SERUM 1.08 Result Comment: The validity of the calculated GFR AND GFRAA in patients over 70 years has not been determined. Clinical correlation is essential. LAB L501.1110 >60 mL/min Normal EST GFR 71 Result Comment: Non- GFR Calc LAB L501.1115 >60 mL/min Normal EST GFR - AA 86 Result Comment: GFR Calc LAB L501.1255 ml/min Normal Estimated CRCL 63.84 LAB L501.1300 10-20 RATIO Normal BUN/CRE 14.8 LAB L501.2200 8.5-10 mg/dL Normal .1 CA 9.1 LAB L501.5300 136-14 mmol/L Normal 5 NA 145 LAB L501.5600 3.5-5. mmol/L Normal 1 K 4.0 LAB L501.5900 98-107 mmol/L High CL 109 LAB L501.6100 21.0-3 mmol/L Normal 2.0 CO2 26.0 LAB L501.6200 5-15 Normal GAP 10 Performed By: #### L500.2500 #### [facility] [address] [place], [place], [id number] CBC W/DIFF, AUTOMATED Collected: 01/11/2018 Status: F Source: [place] 2:31 PM [facility] REPOSITORY TYPE CODE TESTS RESULT OUT OF RANGE REFERENCE UNITS LAB L100.1000 4.4-11.0 K/mm3 Normal WBC 6.2 LAB L100.1200 4.6-6.2 M/mm3 Normal RBC 5.66 LAB L100.1300 13.0-16.5 g/dl High alert HGB 18.0 Result Comment: CRITICAL VALUE VERIFIED. CALLED TO SHEELA ZEE 01/11/18 1458 Mark Aranda. RESULTS READ BACK BY SAME. LAB L100.1400 40-54 % Normal HCT 52.0 LAB L100.1500 80-94 fL Normal MCV 91.9 LAB L100.1600 27.0-32.0 pg Normal MCH 31.8 LAB L100.1700 32-36 g/gl Normal MCHC 34.6 LAB L100.1810 11.6-14.6 % Normal RDW CV 13.8 LAB L100.1820 35.1-43.9 fl High RDW SD 46.0 LAB L100.1900 150-450 K/mm3 Low PLT 127 LAB L100.2000 6.2-12.0 fl Normal MPV 10.8 LAB L100.2100 47-70 % High NEUT% 78.5 LAB L100.2200 19-41 % Low LY% 13.0 LAB L100.2300 0-10 % Normal MONO% 7.3 LAB L100.2400 0-5 % Normal EO% 0.8 LAB L100.2500 0-1 % Normal BASO% 0.2 LAB L100.2550 0.0-0.9 % Normal IM GRAN % 0.200 Result Comment: IG% - Immature Granulocytes (promyelocytes, myelocytes and metamyelocytes) > 1% indicates that a LEFT SHIFT is Present. LAB L100.2620 2.0-7.7 X10 3/uL Normal Absolute Neut 4.8 LAB L100.2720 0.83-4.51 X10 3/ul Low Absolute Lymph 0.80 Performed By: #### L100.0100 #### [facility] [address] [place], [address] HIP, UNI W/ PELVIS Observed: 01/11/2018 Status: F Source: [place] 2-3 VIEWS 2:25 PM [facility] REPOSITORY [facility] Imaging Services [address] [place] [address] HIP, UNI W/ Pelvis 2-3 Views MR#: [id number] Acct: [id number] Name: ROHAN OLIVIA Rep #: [id number] : 1945 M 72 From: William Jacques MD PCP: Brandon Cantor MD Status: REG ER Study: HIP, UNI W/ Pelvis 2-3 Views Date of Exam: 01/11/18 Exam# [id number] Ordering Dr: Leah Alicea MD STUDY: X-RAY - PELVIS AND RIGHT HIP REASON FOR EXAM: Male, 72 years old. Right hip pain after fall. Check for acute fracture. TECHNIQUE: Radiological exam, hip, unilateral, with pelvis when performed; 2 or 3 views. COMPARISON: None available. FINDINGS: Cortical step-off is noted of the right inferior medial femoral neck and foreshortening is seen between the femoral head and intratrochanteric region consistent with an acute fracture. Right femoral head does not appear dislocated from the adjacent acetabulum. No radiopaque foreign identified. Bony ring of the pelvis appears intact without diastases seen. Fairly severe inferior medial joint space narrowing is seen of the left hip on the AP pelvis view. Bony joint spaces appear intact. Right superior pubic ramus medially shows overlapping anastomotic suture ring. It is difficult to identify soft tissue swelling or soft tissue abnormal calcification. No subcutaneous emphysema noted. Severe degenerative right greater and left lower lumbar sacral spine noted. No osseous lytic/blastic lesion seen. Nonobstructed nonspecific visualized intestinal gas pattern. RAD/HIP, UNI W/ Pelvis 2-3 Views IMPRESSION: Right proximal femoral subcapital acute fracture as described. Fairly severe degenerative left hip as described. Electronically Signed: William Jacques, at 16:19 EDT Tel , Service support , CC: MD Ying Alicea; Brandon Cantor MD Gym Instructor: Signed PROGRESS Observed: 12/14/2017 Status: COMPLETED Source: [place] 11:04 AM [facility] REPOSITORY HNO ID: [id number] Author: Collin Anderson Service: (none) Author Type: Physician Type: Progress Notes Filed: 12/23/2017 4:43 PM Note Text: [facility] [place] Consultation Note, 12/14/2017: Introduction: The patient is seen in consultation today for evaluation of abnormal CXR done to investigate complaint of dyspnea on exertion. This consultation is requested by Brandon Cantor MD. A copy of this encounter will be made available as a report via [employer] electronic medical record to providers with access to this record, via US Mail and/or FAX to providers without such access. HPI: Not shortness of breath at rest. WRIGHT with heavy exertion, carrying a load, walking uphill driveway 175 feet. Not short of breath unburdened on stairs. Occasional cough, not daily, excessive sinus drainage. No hemoptysis, pleuritic chest pain. Much more cough, sputum and more frequent colds when smoking. Only occasioanl wheezing. None of these symptoms awaken him from sleep. Spouse reports snoring without apnea. Generally wakes refreshed, not hypersomnolent. In current [place] 1994 [place]. 3 dogs and 2 cats in home. Basement is mostly dry, minimal visible mold. Gas forced air heat, Central A/C. Bedroom cory is wall to wall carpet. Describes work area as dirt atmosphere, feed dusts, dust and dirt. No sustained Rx with Amiodarone, Nitrofurantoin, Methotrexate, cancer chemotherapy, external beam radiation therapy. 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 - Enterocolitis due to Clostridium difficile 05/25/2015 - Hypertension 05/04/2009 - Hyperthyroidism, subclinical 06/19/2009 - OA (osteoarthritis) of knee 01/24/2013 - Obesity 06/19/2009 - Panic attacks 2000 previously on Xanax - Seborrheic keratosis 06/19/2009 PAST SURGICAL HISTORY Procedure Laterality Date - COLONOSCOP W/ OR W/O BRSH SPEC 10/01/2014 Colonoscopy - COLONOSCOPY AND POLYPECTOMY 01/13/2017 - LAP STOMA CLOSURE, ILEOSTOMY 04/13/2015 closure of loop ileostomy - PAST SURGICAL HISTORY OF 1972 Right 4th digit reattachment - PAST SURGICAL HISTORY OF 01/01/2015 Rectal/sigmoid resection - RECONSTR NOSE 1954 Rhinoplasty, nasal fracture - REMOVAL OF TONSILS,<12 Y/O Tonsillectomy FAMILY HISTORY Problem Relation Age of Onset - Psychiatry Mother Anxiety - COPD Mother - Heart Mother Heart failure, age 94 - Other [OTHER] Mother Parkinson's - Cancer Father lung cancer, age 86 - Psychiatry Sister Panic attacks - Emphysema Maternal Grandfather 50 years working on RR, coal smoke inhalation. 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 Social History Main Topics Smoking status: Former Smoker Packs/day: 2.00 Years: 30.00 Types: Cigarettes Start date: 1964 Quit date: 07/05/1998 Smokeless tobacco: Never Used Alcohol use: No Drug use: No Sexual activity: Not Currently Partners with: Female Immunization History Administered Date(s) Administered Influenza Seasonal - High Dose - Age 65+ 03/19/2015 03/16/2017 Influenza Seasonal Inj Age 3+ 03/20/2014 03/23/2016 Influenza Vaccine, Split-Non Spec 03/27/2009 03/04/2010 03/05/2011 Influenza Vaccine, Whole 02/23/2012 Pneumococcal-13 Vac Conjugate 10/09/2014 Pneumovax 07/01/2010 Tetanus Diphtheria Booster (Age >7) Pres Free 04/10/2014 Tetanus/Diphtheria Unspec 01/02/2004 Zostavax 09/29/2011 MEDICATIONS and ALLERGIES: Reviewed, updated and reconciled with the patient today, as noted in the medication and allergy sections of the encounter. ROS: Reviewed with patient, confirmed as documented by Colleen Colin LPN. TO PHYSICAL EXAMINATION: BP 112/62 Pulse 71 Resp 19 Ht 5' 9.5 (1.77m) Wt 219 lb (99.3kg) SpO2 91% BMI 31.89 kg/(m2). Gen: No acute distress. Cooperative with examination. Mildly obese. ENT: Sclerae clear. Nares clear. Oral hygeine and dentition good. Pharynx clear. Resp: No stridor, accessory respiratory muscle use, supra- sternal or intercostal retractions. No crackles, wheezes. CV: Regular rythm. Heart tones normal. No carotid bruit. Radial pulses normal. Abd: Not distended. MSK: No kyphoscoliosis, joint deformities of the extremities. Ext: Warm and well perfused. No clubbing, cyanosis, edema, sclerodactyly, Raynaud's. Skin: No rash, eczema, urticaria, telangiectasia. Endo: No exophthalmos, onycholysis. Neuro: Mental status normal. No tremor. DATA REVIEW: PFT 12/14/2017 CXR 09/20/2017: Comparison: ?10/03/2013 RESULT: Lines, tubes, and devices: ?None. Lungs and pleura: Again identified is diffuse interstitial prominence within both lungs which appears to have worsened since the prior study. ? No consolidated segments of pulmonary parenchyma are noted. ?There is no evidence of pleural effusion or pneumothorax. ?No parenchymal masses are identified. ?Pulmonary vascularity is normal. Cardiomediastinal silhouette: ?Normal cardiomediastinal silhouette. ? Atherosclerotic calcification is present within the aortic arch. Other: There is multilevel degenerative disc disease present within the thoracic spine. I have personally and independently reviewed these CXR images and and I find them to be normal. TO IMPRESSION/RECOMMEND: CXR description of interstitial abnormalities, is noted. I would have read it as normal. The PFTs show normal total lung capacity and diffusing capacity, suggesting there is NO significant interstitial lung disease at this time. - Prudent to repeat breathing tests in 6-12 months, and more than 10% decline may represent interstitial lung disease that is progressing rapidly. - Schedule appointment for repeat Pulmonary Function Testing and visit in September 2018. There is no CXR evidence of mesothelioma. I addressed the questions of the patient, and he expressed understanding and acceptance of my answers. Collin Anderson MD, [facility] Respiratory [facility] and Ambulatory Surgery [place] [id number] P: [phone] F: [phone] [email or web address] CNOV Observed: 12/14/2017 Status: COMPLETED Source: [place] 10:30 AM [facility] Office Visit (PULMWS) ROHAN OLIVIA JR. ([id number]) 1945 M Date Time Provider Department 12/14/17 10:30 AM COLLIN ANDERSON During your visit today, we recorded the following information about you: Pulse Respiration Blood pressure Weight 71/minute 19/minute 112/62 99.3 kg Height 1.765 m Colleen Cristi VICTOR 12/14/2017 10:55 AM Attested Attestation signed by Collin Anderson at 12/14/2017 11:03 AM Reviewed with patient, confirmed as documented by Colleen Colin LPN. TO ROS: General: Generally feels well. Appetite good. Eyes, Ears, nose, throat: denies post nasal drip. denies rhinorrhea. denies purulent nasal discharge. denies epistaxis. denies hoarseness. Vision stable. Cardiac: denies angina, denies edema, denies orthopnea. GI: denies heartburn. denies dysphagia. denies diarrhea. Uro/HOME HEALTH RN: denies dysuria. denies hesitancy. denies nocturia. Menses: N/A Musculoskeletal: notes knee and hand pain. Neuro: denies headache, denies focal weakness. denies tremor. Skin: notes rash on the left and right ankle and foot- follows dermatology at [facility]. Otherwise negative. Collin Anderson MD 12/23/2017 4:43 PM Signed [facility] [place] Consultation Note, 12/14/2017: Introduction: The patient is seen in consultation today for evaluation of abnormal CXR done to investigate complaint of dyspnea on exertion. This consultation is requested by Brandon Cantor MD. A copy of this encounter will be made available as a report via [employer] medical record to providers with access to this record, via US Mail and/or FAX to providers without such access. HPI: Not shortness of breath at rest. WRIGHT with heavy exertion, carrying a load, walking uphill driveway 175 feet. Not short of breath unburdened on stairs. Occasional cough, not daily, excessive sinus drainage. No hemoptysis, pleuritic chest pain. Much more cough, sputum and more frequent colds when smoking. Only occasioanl wheezing. None of these symptoms awaken him from sleep. Spouse reports snoring without apnea. Generally wakes refreshed, not hypersomnolent. In current [place] 1994 [place] 3 dogs and 2 cats in home. Basement is mostly dry, minimal visible mold. Gas forced air heat, Central A/C. Bedroom cory is wall to wall carpet. Describes work area as dirt atmosphere, feed dusts, dust and dirt. No sustained Rx with Amiodarone, Nitrofurantoin, Methotrexate, cancer chemotherapy, external beam radiation therapy. 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 - Enterocolitis due to Clostridium difficile 05/25/2015 - Hypertension 05/04/2009 - Hyperthyroidism, subclinical 06/19/2009 - OA (osteoarthritis) of knee 01/24/2013 - Obesity 06/19/2009 - Panic attacks 2001 previously on Xanax - Seborrheic keratosis 06/19/2009 PAST SURGICAL HISTORY Procedure Laterality Date - COLONOSCOP W/ OR W/O BRSH SPEC 10/01/2014 Colonoscopy - COLONOSCOPY AND POLYPECTOMY 01/13/2017 - LAP STOMA CLOSURE, ILEOSTOMY 04/13/2015 closure of loop ileostomy - PAST SURGICAL HISTORY OF 1972 Right 4th digit reattachment - PAST SURGICAL HISTORY OF 01/01/2015 Rectal/sigmoid resection - RECONSTR NOSE 1954 Rhinoplasty, nasal fracture - REMOVAL OF TONSILS,<12 Y/O Tonsillectomy FAMILY HISTORY Problem Relation Age of Onset - Psychiatry Mother Anxiety - COPD Mother - Heart Mother Heart failure, age 94 - Other [OTHER] Mother Parkinson's - Cancer Father lung cancer, age 86 - Psychiatry Sister Panic attacks - Emphysema Maternal Grandfather 50 years working on RR, coal smoke inhalation. 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 Social History Main Topics Smoking status: Former Smoker Packs/day: 2.00 Years: 30.00 Types: Cigarettes Start date: 1964 Quit date: 07/05/1998 Smokeless tobacco: Never Used Alcohol use: No Drug use: No Sexual activity: Not Currently Partners with: Female Immunization History Administered Date(s) Administered Influenza Seasonal - High Dose - Age 65+ 03/19/2015 03/16/2017 Influenza Seasonal Inj Age 3+ 03/20/2014 03/23/2016 Influenza Vaccine, Split-Non Spec 03/27/2009 03/04/2010 03/05/2011 Influenza Vaccine, Whole 02/23/2012 Pneumococcal-13 Vac Conjugate 10/09/2014 Pneumovax 07/01/2010 Tetanus Diphtheria Booster (Age >7) Pres Free 04/10/2014 Tetanus/Diphtheria Unspec 01/02/2004 Zostavax 09/29/2011 MEDICATIONS and ALLERGIES: Reviewed, updated and reconciled with the patient today, as noted in the medication and allergy sections of the encounter. ROS: Reviewed with patient, confirmed as documented by Colleen Colin LPN. TO PHYSICAL EXAMINATION: BP 112/62 Pulse 71 Resp 19 Ht 5' 9.5 (1.77m) Wt 219 lb (99.3kg) SpO2 91% BMI 31.89 kg/(m2). Gen: No acute distress. Cooperative with examination. Mildly obese. ENT: Sclerae clear. Nares clear. Oral hygeine and dentition good. Pharynx clear. Resp: No stridor, accessory respiratory muscle use, supra- sternal or intercostal retractions. No crackles, wheezes. CV: Regular rythm. Heart tones normal. No carotid bruit. Radial pulses normal. Abd: Not distended. MSK: No kyphoscoliosis, joint deformities of the extremities. Ext: Warm and well perfused. No clubbing, cyanosis, edema, sclerodactyly, Raynaud's. Skin: No rash, eczema, urticaria, telangiectasia. Endo: No exophthalmos, onycholysis. Neuro: Mental status normal. No tremor. DATA REVIEW: PFT 12/14/2017 CXR 09/20/2017: Comparison: ?10/03/2013 RESULT: Lines, tubes, and devices: ?None. Lungs and pleura: Again identified is diffuse interstitial prominence within both lungs which appears to have worsened since the prior study. ? No consolidated segments of pulmonary parenchyma are noted. ?There is no evidence of pleural effusion or pneumothorax. ?No parenchymal masses are identified. ?Pulmonary vascularity is normal. Cardiomediastinal silhouette: ?Normal cardiomediastinal silhouette. ? Atherosclerotic calcification is present within the aortic arch. Other: There is multilevel degenerative disc disease present within the thoracic spine. I have personally and independently reviewed these CXR images and and I find them to be normal. TO IMPRESSION/RECOMMEND: CXR description of interstitial abnormalities, is noted. I would have read it as normal. The PFTs show normal total lung capacity and diffusing capacity, suggesting there is NO significant interstitial lung disease at this time. - Prudent to repeat breathing tests in 6-12 months, and more than 10% decline may represent interstitial lung disease that is progressing rapidly. - Schedule appointment for repeat Pulmonary Function Testing and visit in September 2018. There is no CXR evidence of mesothelioma. I addressed the questions of the patient, and he expressed understanding and acceptance of my answers. Collin Anderson MD, [facility] Respiratory [facility] [place] [address] P: [phone] F: [phone] Collin Anderson MD 12/14/2017 11:42 AM Signed CXR description of interstitial abnormalities, is noted. I would have read it as normal. The Pulmonary Function Testing showing normal total lung capacity and diffusing capacity suggests there is NO significant interstitial lung disease. - Guidelines suggest that it is prudent to repeat breathing tests in 6-12 months, and more than 10% decline may represent interstitial lung disease that is progressing rapidly. - Put a reminder in your May 2018 calendar to call Pulmonary Clinic [phone] and schedule appointment for . repeat Pulmonary Function Testing and visit in September 2018. There is no CXR evidence of mesothelioma. 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 Reason For Visit History Recorded Primary Visit Diagnosis:Abnormal CXR [R93.8] Order(s):SPIROMETRY BASELINE ONLY [6308179] Order #: [id number] FUTURE Prescriptions as of 12/14/2017 Sig: LORAZEPAM 1 MG TABLET Take 1 tablet by mouth at bed* AMLODIPINE 10 MG TABLET TAKE ONE TABLET BY MOUTH ONCE* TERAZOSIN 10 MG CAPSULE Take 1 capsule by mouth daily* PAROXETINE 10 MG TABLET Take 1 tablet by mouth once d* PRAVASTATIN 20 MG TABLET Take 1 tablet by mouth daily * MELOXICAM 15 MG TABLET take 1 tablet by mouth once d* LOPERAMIDE 2 MG TABLET Take 1 tablet by mouth four t* ASPIRIN 81 MG TABLET Take one(1) tablet daily. Patient taking differently: Take one(1) tablet daily BY M* Problem List As Of Date 12/14/2017 Noted Resolved Hypertension [I10] INVALID FOR* Anxiety [F41.9] INVALID FOR*10/22/2015 BPH without urinary obstruction [N40.0] INVALID FOR* Obesity [E66.9] INVALID FOR* Subclinical hyperthyroidism [E05.90] INVALID FOR*06/16/2011 Seborrheic Keratoses [L82.1] INVALID FOR*07/26/2012 Actinic Damage///Sun-damaged skin [L57.8] INVALID FOR*07/26/2012 Solar lentigines [L81.4] INVALID FOR*07/26/2012 Stucco keratosis [L85.1] INVALID FOR*10/22/2015 Hyperthyroidism, subclinical [E05.90] INVALID FOR* OA (osteoarthritis) of knee [M17.10] INVALID FOR* Acquired polycythemia [D75.1] INVALID FOR*07/22/2015 Hyperlipidemia LDL goal <100 [E78.5] INVALID FOR* Ileus, postoperative (HCC) [K91.89, K56.7] INVALID FOR*07/22/2015 Enterocolitis due to Clostridium difficile [A04*INVALID FOR*10/22/2015 Irritable bowel syndrome with diarrhea [K58.0] INVALID FOR* Flatulence [R14.3] INVALID FOR*03/16/2017 Elevated prostate specific antigen (PSA) [R97.2*INVALID FOR* Idiopathic peripheral neuropathy [G60.9] INVALID FOR* Dyspnea on exertion [R06.09] INVALID FOR* Obesity, Class I, BMI 30-34.9 [E66.9] INVALID FOR* Other instructions from your clinician: CXR description of interstitial abnormalities, is noted. I would have read it as normal. The Pulmonary Function Testing showing normal total lung capacity and diffusing capacity suggests there is NO significant interstitial lung disease. - Guidelines suggest that it is prudent to repeat breathing tests in 6-12 months, and more than 10% decline may represent interstitial lung disease that is progressing rapidly. - Put a reminder in your May 2018 calendar to call Pulmonary Clinic [phone] and schedule appointment for . repeat Pulmonary Function Testing and visit in September 2018. There is no CXR evidence of mesothelioma. Collin Anderson MD, [facility] Respiratory [facility] and Ambulatory Surgery [address] [address] P: [phone] F: [phone] [email or web address] Visit Notes: >> Colleen Colin WASTEWATER TREATMENT SUPERVISOR [facility] Dec 14, 2017 10:35 AM Status: Attested ROS: General: Generally feels well. Appetite good. Eyes, Ears, nose, throat: denies post nasal drip. denies rhinorrhea. denies purulent nasal discharge. denies epistaxis. denies hoarseness. Vision stable. Cardiac: denies angina, denies edema, denies orthopnea. GI: denies heartburn. denies dysphagia. denies diarrhea. Uro/HOME HEALTH RN: denies dysuria. denies hesitancy. denies nocturia. Menses: N/A Musculoskeletal: notes knee and hand pain. Neuro: denies headache, denies focal weakness. denies tremor. Skin: notes rash on the left and right ankle and foot- follows dermatology at [facility]. Otherwise negative. Follow-up and Disposition History Recorded Encounter Status:Closed by COLLIN ANDERSON MD on 12/23/17 CBC Collected: 10/19/2017 Status: F Source: [facility] 9:30 AM [facility] REPOSIT[facility] TYPE CODE TESTS RESULT OUT OF REFERENCE UNITS RANGE LAB WBC 3.70-11.00 k/uL WBC 5.55 LAB RBC 4.20-6.00 m/uL RBC 5.85 LAB HGB 13.0-17.0 g/dL High Hemoglobin 17.8 LAB HCT 39.0-51.0 % High Hematocrit 53.9 LAB MCV 80.0-100.0 fL MCV 92.1 LAB MCH 26.0-34.0 pG MCH 30.4 LAB MCHC 30.5-36.0 g/dL MCHC 33.0 LAB RDWCV 11.5-15.0 % RDW-CV 13.9 LAB PLTCT 150-400 k/uL Low Platelet Count 141 LAB MPV 9.0-12.7 fL MPV 10.7 LAB ABSNUC <0.01 k/uL Absolute nRBC <0.01 Performed By: #### CBC, NTBNP #### [facility] [employer] [address], [place] [address] NT PRO BNP Collected: 10/19/2017 Status: F Source: [place] 9:30 AM [facility] TYPE CODE TESTS RESULT OUT OF REFERENCE UNITS RANGE LAB PBNP <125 pg/mL PRO B Natr <50 Peptide Performed By: #### CBC, NTBNP #### [facility] [address], [place] [address] PROGRESS Observed: 10/19/2017 Status: COMPLETED Source: [place] 9:24 AM [facility] HNO ID: [id number] Author: Brandon Cantor Service: (none) Author Type: Physician Type: Progress Notes Filed: 10/19/2017 9:30 AM Note Text: This note was created using NoteWriter. Subjective Rohan Olivia Jr. is a 72 year old male was here for follow up of dyspnea on exertion noticed for several weeks, not limiting his activities of daily living or work, but slowing him down. 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 His symptoms were stable. Review of Systems Constitutional: Negative for chills, fatigue, fever and unexpected weight change. HENT: Negative. Respiratory: Positive for shortness of breath. Negative for cough, chest tightness and wheezing. Cardiovascular: Negative. Gastrointestinal: Negative. Hematological: Negative. Objective BP 132/62 (BP Site: Left Arm, BP Position: Sitting, BP Cuff Size: Regular Adult) Pulse 60 Temp (!) 35.9 ?C (96.7 ?F) (Left Tympanic) Resp 16 Wt 99.8 kg (220 lb) SpO2 90% BMI 32.02 kg/m? Physical Exam Constitutional: No distress. Neck: No JVD present. Cardiovascular: Normal heart sounds. Pulmonary/Chest: Effort normal and breath sounds normal. Musculoskeletal: He exhibits no edema. Skin: No cyanosis. Nails show no clubbing. EKG RESULTS: normal sinus rhythm and 1st degree AV block Test results pertinent to today's visit were reviewed and discussed with the patient. Assessment and Plan 1. Dyspnea on exertion - ICD9: 786.09, ICD10: R06.09 (primary diagnosis) Concerning for ILD. See pulmonary as scheduled. - CBC - NT PRO BNP - ECG COMPLETE W INTERPRETATION 2. Abnormal chest x-ray - ICD9: 793.2, ICD10: R93.8 See #1. - CBC - NT PRO BNP - ECG COMPLETE W INTERPRETATION 3. Anxiety - ICD9: 300.00, ICD10: F41.9 Refilled. Stable use. - LORAZEPAM 1 MG TABLET 4. Obesity, Class I, BMI 30-34.9 - ICD9: 278.00, ICD10: E66.9 Weight loss recommended. Brandon Cantor MD CNOV Observed: 10/19/2017 Status: COMPLETED Source: [place] 8:20 AM [facility] Office Visit (INTMWS) ROHAN OLIVIA JR. ([id number]) 1945 M Date Time Provider Department 10/19/17 8:20 AM BRANDON CANTOR INTRACHELLE During your visit today, we recorded the following information about you: Temperature Pulse Respiration Blood pressure 96.7 degrees 60/minute 16/minute 132/62 Weight 99.8 kg Brandon Cantor MD 10/19/2017 9:30 AM Signed This note was created using NoteWriter. Subjective Rohan Olivia Jr. is a 72 year old male was here for follow up of dyspnea on exertion noticed for several weeks, not limiting his activities of daily living or work, but slowing him down. 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 His symptoms were stable. Review of Systems Constitutional: Negative for chills, fatigue, fever and unexpected weight change. HENT: Negative. Respiratory: Positive for shortness of breath. Negative for cough, chest tightness and wheezing. Cardiovascular: Negative. Gastrointestinal: Negative. Hematological: Negative. Objective BP 132/62 (BP Site: Left Arm, BP Position: Sitting, BP Cuff Size: Regular Adult) Pulse 60 Temp (!) 35.9 ?C (96.7 ?F) (Left Tympanic) Resp 16 Wt 99.8 kg (220 lb) SpO2 90% BMI 32.02 kg/m? Physical Exam Constitutional: No distress. Neck: No JVD present. Cardiovascular: Normal heart sounds. Pulmonary/Chest: Effort normal and breath sounds normal. Musculoskeletal: He exhibits no edema. Skin: No cyanosis. Nails show no clubbing. EKG RESULTS: normal sinus rhythm and 1st degree AV block Test results pertinent to today's visit were reviewed and discussed with the patient. Assessment and Plan 1. Dyspnea on exertion - ICD9: 786.09, ICD10: R06.09 (primary diagnosis) Concerning for ILD. See pulmonary as scheduled. - CBC - NT PRO BNP - ECG COMPLETE W INTERPRETATION 2. Abnormal chest x-ray - ICD9: 793.2, ICD10: R93.8 See #1. - CBC - NT PRO BNP - ECG COMPLETE W INTERPRETATION 3. Anxiety - ICD9: 300.00, ICD10: F41.9 Refilled. Stable use. - LORAZEPAM 1 MG TABLET 4. Obesity, Class I, BMI 30-34.9 - ICD9: 278.00, ICD10: E66.9 Weight loss recommended. Brandon Cantor MD Referring Provider: BRANDON CANTOR [[id number]] Allergies As of Date: 10/19/2017 (No Known Allergies) Date Reviewed: 10/19/2017 Reviewed by: Renea Caraballo LPN - Fully Assessed Reason for Visit: Recheck [92] Cmt: Abnormal chest x-ray Primary Visit Diagnosis:Dyspnea on exertion [R06.09] Other Visit Diagnoses:Abnormal chest x-ray [R93.8] Anxiety [F41.9] Obesity, Class I, BMI 30-34.9 [E66.9] Order(s):CBC [SQCBC] Order #: [id number] FUTURE NT PRO BNP [SQNTBNP] Order #: [id number] FUTURE ECG COMPLETE W INTERPRETATION [ECG01] Order #: [id number] FUTURE LORazepam (ATIVAN) 1 mg tabletTake 1 tablet by mouth at bedtime as needed for Anxiety for up to 180 days.Disp: 30 tabletRfl: 0 Prescriptions as of 10/19/2017 Sig: LORAZEPAM 1 MG TABLET Take 1 tablet by mouth at bed* AMLODIPINE 10 MG TABLET TAKE ONE TABLET BY MOUTH ONCE* TERAZOSIN 10 MG CAPSULE Take 1 capsule by mouth daily* PAROXETINE 10 MG TABLET Take 1 tablet by mouth once d* PRAVASTATIN 20 MG TABLET Take 1 tablet by mouth daily * MELOXICAM 15 MG TABLET take 1 tablet by mouth once d* LOPERAMIDE 2 MG TABLET Take 1 tablet by mouth four t* ASPIRIN 81 MG TABLET Take one(1) tablet daily. Patient taking differently: Take one(1) tablet daily BY M* Problem List As Of Date 10/19/2017 Noted Resolved Hypertension [I10] INVALID FOR* Anxiety [F41.9] INVALID FOR*10/22/2015 BPH without urinary obstruction [N40.0] INVALID FOR* Obesity [E66.9] INVALID FOR* Subclinical hyperthyroidism [E05.90] INVALID FOR*06/16/2011 Seborrheic Keratoses [L82.1] INVALID FOR*07/26/2012 Actinic Damage///Sun-damaged skin [L57.8] INVALID FOR*07/26/2012 Solar lentigines [L81.4] INVALID FOR*07/26/2012 Stucco keratosis [L85.1] INVALID FOR*10/22/2015 Hyperthyroidism, subclinical [E05.90] INVALID FOR* OA (osteoarthritis) of knee [M17.10] INVALID FOR* Acquired polycythemia [D75.1] INVALID FOR*07/22/2015 Hyperlipidemia LDL goal <100 [E78.5] INVALID FOR* Ileus, postoperative (HCC) [K91.89, K56.7] INVALID FOR*07/22/2015 Enterocolitis due to Clostridium difficile [A04*INVALID FOR*10/22/2015 Irritable bowel syndrome with diarrhea [K58.0] INVALID FOR* Flatulence [R14.3] INVALID FOR*03/16/2017 Elevated prostate specific antigen (PSA) [R97.2*INVALID FOR* Idiopathic peripheral neuropathy [G60.9] INVALID FOR* Dyspnea on exertion [R06.09] INVALID FOR* Obesity, Class I, BMI 30-34.9 [E66.9] INVALID FOR* Prescriptions ordered this encounter Disp Refills Start End LORAZEPAM 1 MG TABLET 30 t* 0 10/19/2017 04/17/2018 Class: Print RX Route: ORAL Sig: Take 1 tablet by mouth at bedtime as needed for Anxiety for up to 180 days. Medications Discontinued During This Encounter LORazepam (ATIVAN) 1 mg tablet 30 t* 0 03/16/2017 10/19/2017 Class: Print RX Route: ORAL Sig: Take 1 tablet by mouth at bedtime as needed for Anxiety. Disc: Reason for discontinue is not on file. Disposition: Return if symptoms worsen or fail to improve. Follow-up and Disposition History Recorded Encounter Status:Closed by BRANDON CANTOR MD on 10/19/17 QUETA Observed: 09/18/2017 Status: COMPLETED Source: [place] 12:00 AM [facility] Telephone (INTMWS) ROHAN OLIVIA JR. ([id number]) 1945 M Date Time Provider Department 09/18/17 DELICIA QUIÑONEZ ([facility]) INTWS During your visit today, we recorded the following information about you: Delicia Quiñonez APRN.CNP 09/18/2017 8:26 AM Signed Please let the patient know his chest x-ray showed worsening of interstitial prominence suggestive of interstitial lung disease. This describes a large group of disorders, most of which cause progressive scarring of lung tissue. There are many causes including autoimmune disorders and environmental exposures but most of the time the cause is unknown. I suggest for further evaluation by pulmonology and keep appointment for lung function testing. Delicia Quiñonez APRN.[facility] Jimenez Cma 09/18/2017 10:22 AM Signed Left message for patient to call office back and to ask to speak with a triage nurse. Laure Hernandez RN 09/18/2017 1:23 PM Signed Patient notified of results and provider's instructions. Patient verbalizes understanding. Kiah Hernandez RN Allergies As of Date: 09/18/2017 (No Known Allergies) Date Reviewed: 09/14/2017 Reviewed by: Laure Jimenez Cma - Fully Assessed Reason for Visit: Results [95] Primary Visit Diagnosis:Abnormal chest x-ray [R93.8] Other Visit Diagnosis:Shortness of breath [R06.02] Order(s):CONSULT TO PULMONARY MEDICINE [[id number]] Order #: [id number]: 1 Prescriptions as of 09/18/2017 Sig: PAROXETINE 10 MG TABLET take 1 tablet by mouth once d* TERAZOSIN 10 MG CAPSULE take 1 capsule by mouth at be* LORAZEPAM 1 MG TABLET Take 1 tablet by mouth at bed* MELOXICAM 15 MG TABLET take 1 tablet by mouth once d* PRAVASTATIN 20 MG TABLET Take 1 tablet by mouth daily * AMLODIPINE 10 MG TABLET Take 1 tablet by mouth once d* LOPERAMIDE 2 MG TABLET Take 1 tablet by mouth four t* ASPIRIN 81 MG TABLET Take one(1) tablet daily. Patient taking differently: Take one(1) tablet daily BY M* Problem List As Of Date 09/18/2017 Noted Resolved Hypertension [I10] INVALID FOR* Anxiety [F41.9] INVALID FOR*10/22/2015 BPH without urinary obstruction [N40.0] INVALID FOR* Obesity [E66.9] INVALID FOR* Subclinical hyperthyroidism [E05.90] INVALID FOR*06/16/2011 Seborrheic Keratoses [L82.1] INVALID FOR*07/26/2012 Actinic Damage///Sun-damaged skin [L57.8] INVALID FOR*07/26/2012 Solar lentigines [L81.4] INVALID FOR*07/26/2012 Stucco keratosis [L85.1] INVALID FOR*10/22/2015 Hyperthyroidism, subclinical [E05.90] INVALID FOR* OA (osteoarthritis) of knee [M17.10] INVALID FOR* Acquired polycythemia [D75.1] INVALID FOR*07/22/2015 Hyperlipidemia LDL goal <100 [E78.5] INVALID FOR* Ileus, postoperative (HCC) [K91.89, K56.7] INVALID FOR*07/22/2015 Enterocolitis due to Clostridium difficile [A04*INVALID FOR*10/22/2015 Irritable bowel syndrome with diarrhea [K58.0] INVALID FOR* Flatulence [R14.3] INVALID FOR*03/16/2017 Elevated prostate specific antigen (PSA) [R97.2*INVALID FOR* Idiopathic peripheral neuropathy [G60.9] INVALID FOR* Encounter Status:Closed by KIAH HERNANDEZ RN on 09/18/17 XR CHEST 2V FRONTAL/LAT Observed: 09/14/2017 Status: F Source: [place] 11:38 AM [facility] * * *Final Report* * * DATE OF EXAM: Sep 14 2017 11:38AM [id number] [id number] - XR CHEST 2V FRONTAL/LAT / PROCEDURE REASON: multiple diagnoses * * * * Physician Interpretation * * * * EXAMINATION: CHEST RADIOGRAPH (2 VIEW FRONTAL and LATERAL) Clinical History: Shortness of breath Personal history of nicotine dependence MQ: XC2_5 Comparison: 10/03/2013 RESULT: Lines, tubes, and devices: None. Lungs and pleura: Again identified is diffuse interstitial prominence within both lungs which appears to have worsened since the prior study. No consolidated segments of pulmonary parenchyma are noted. There is no evidence of pleural effusion or pneumothorax. No parenchymal masses are identified. Pulmonary vascularity is normal. Cardiomediastinal silhouette: Normal cardiomediastinal silhouette. Atherosclerotic calcification is present within the aortic arch. Other: There is multilevel degenerative disc disease present within the thoracic spine. IMPRESSION: INCREASING INTERSTITIAL PROMINENCE SUGGESTIVE OF INTERSTITIAL LUNG DISEASE. EDEMA IS THOUGHT TO BE A LESS LIKELY ETIOLOGY. Gym Instructor: CESAR Transcribe Date/Time: Sep 15 2017 11:09A Dictated by : HARJIT JAMES MD This examination was interpreted and the report reviewed and electronically signed by: HARJIT JAMES MD on Sep 15 2017 11:12AM EST [id number] PROGRESS Observed: 09/14/2017 Status: COMPLETED Source: [place] 11:33 AM [facility] HNO ID: [id number] Author: Yesika Cervantes (Rt) Service: (none) Author Type: Vacation Sales Advisor Type: Progress Notes Filed: 09/14/2017 11:39 AM Note Text: Radiology Service Progress Note PATIENT NAME: Rohan Olivia Jr. DATE OF SERVICE: September 14, 2017 TIME: 11:33 AM PATIENT IDENTITY VERIFICATION COMPLETED USING TWO (2) METHODS: Patient confirmed name verbally and Date of . PATIENT GENDER DATA: Male PATIENT RELEVANT IMPLANT DATA REVIEWED: Not Applicable RADIOLOGY DEPARTMENT: General X-ray: Exam(s) Completed: Chest X-Ray PERIPHERAL IV DATA: Not applicable SIGNED BY: RT Billy September 14, 2017 11:33 AM PROGRESS Observed: 09/14/2017 Status: COMPLETED Source: [place] 11:02 AM [facility] HNO ID: [id number] Author: Delicia Amos) Olamide Service: (none) Author Type: Nurse Practitioner Type: Progress Notes Filed: 09/14/2017 2:26 PM Note Text: CC: Patient presents with: F/U 6 Month Bilateral index fingers stiff and click: patient wonders if it is arthritis HPI Rohan Olivia Jr. is a 72 year old male who presents today for 6 month F/U. Last seen by Dr. Cantor on 03/16/2017. States health overall is pretty good. States listed conditions are well and stable. States BP is typically around 135/65 when he thinks to check it. Does not participate in regular exercise but walks a lot at work. Watches diet for salt, but states sugar is my weak spot. Only concern today is that he has noticed that he has been getting more winded the past 2-3 weeks. 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 He notices that he feels the most SOB while walking up the ramp at work. Denies any associated chest pain, palpitations, swelling, or need for added pillows. Uses one pillow for sleeping. SOB is relieved by rest. Denies any fatigue, weakness, fever, chills, night sweats, or weight gain/loss. The patient thinks that the SOB may be related to his smoking history. PMH 2 PPD smoker x 30 years. Quit smoking in 1998. States he was worked up for COPD 4 years ago and was told he did not have it. Patient is concerned that he may have COPD now. Denies cough, hemoptysis, or wheezing. REVIEW OF SYSTEMS General: See HPI Respiratory: See HPI Cardiovascular: See HPI GI: No nausea, vomiting, or diarrhea Frequent BMs. : Denies dysuria or incontinence. Positive for frequency and decreased stream. Musculoskeletal: Negative for joint pain or swelling, back pain or muscle pain Endocrine: No hair loss, no dry skin, no cold intolerance, no heat intolerance, no neck pain/pressure, no polyuria, no polyphagia and no polydipsia Neurologic: Positive for: numbness or tingling of feet PAST MEDICAL HISTORY Diagnosis Date - Acquired polycythemia 01/24/2013 - Actinic Keratosis (Premalignant AK) 09/05/2010 - Adenomatous colon polyp 10/09/2014 - Anxiety 06/19/2009 - BPH loc w/o Ur Obs/LUTS 06/19/2009 - Enterocolitis due to Clostridium difficile 05/25/2015 - Hypertension 05/04/2009 - Hyperthyroidism, subclinical 06/19/2009 - OA (osteoarthritis) of knee 01/24/2013 - Obesity 06/19/2009 - Panic attacks 2001 previously on Xanax - Seborrheic keratosis 06/19/2009 PAST SURGICAL HISTORY Procedure Laterality Date - COLONOSCOP W/ OR W/O BRSH SPEC 10/01/2014 Colonoscopy - COLONOSCOPY AND POLYPECTOMY 01/13/2017 - LAP STOMA CLOSURE, ILEOSTOMY 04/13/2015 closure of loop ileostomy - PAST SURGICAL HISTORY OF 1972 Right 4th digit reattachment - PAST SURGICAL HISTORY OF 01/01/2015 Rectal/sigmoid resection - RECONSTR NOSE 1954 Rhinoplasty, nasal fracture - REMOVAL OF TONSILS,<12 Y/O Tonsillectomy ALLERGIES Review of patient's allergies indicates no known allergies. MEDICATIONS PARoxetine (PAXIL) 10 mg tablet take 1 tablet by mouth once daily Terazosin HCl (HYTRIN) 10 mg capsule take 1 capsule by mouth at bedtime LORazepam (ATIVAN) 1 mg tablet Take 1 tablet by mouth at bedtime as needed for Anxiety. meloxicam (MOBIC) 15 mg tablet take 1 tablet by mouth once daily if needed for KNEE PAIN WITH FOOD pravastatin (PRAVACHOL) 20 mg tablet Take 1 tablet by mouth daily at bedtime. amLODIPine (NORVASC) 10 mg tablet Take 1 tablet by mouth once daily. Loperamide HCl (IMODIUM) 2 mg tab Take 1 tablet by mouth four times daily as needed. Take 1-2 tabs by mouth 1/2 hour before meals and at bedtime as needed for diarrhea ASPIRIN 81 MG TAB Take one(1) tablet daily. FAMILY HISTORY Problem Relation Age of Onset - Psychiatry Mother anxiety - COPD Mother - Heart Mother heart failure, age 94 - Cancer Father lung cancer, age 86 - Psychiatry Sister panic attacks - Emphysema Maternal Grandfather - Asthma Maternal Grandfather - Colon Cancer Other Maternal 1st cousin age 40's Social History Substance Use Topics - Smoking status: Former Smoker Packs/day: 2.00 Years: 30.00 Types: Cigarettes Quit date: 07/04/1998 - Smokeless tobacco: Never Used - Alcohol use No PHYSICAL EXAM BP 126/60 Pulse 68 Temp 36.8 ?C (98.3 ?F) (Temporal Artery) Resp 14 Wt 99.3 kg (219 lb) SpO2 93% BMI 31.88 kg/m2 General Appearance: well appearing, in no acute distress, alert, overweight Lungs: Lungs clear to auscultation. No wheezing, rhonchi, rales Heart: RRR without murmur, gallop, or rubs. No ectopy All Extremities: No deformities, edema, skin discoloration, or cyanosis. Good capillary refill. Positive findings: Nail clubbing right pointer, middle, and index fingers. No nail clubbing noted on left hand. DIABETES SCREEN due on 09/11/2020 COLORECTAL CANCER SCREENING,SEE MODIFIER due on 01/13/2022 LIPID SCREEN due on 09/11/2022 TETANUS due on 04/10/2024 PROSTATE CANCER SCREENING DISCUSSION Completed ABDOMINAL AORTIC ANEURYSM SCREENING TOPIC Completed ADULT PREVNAR-13 Completed INFLUENZA Completed HEPATITIS C SCREENING Completed PNEUMOVAX AGE 65 AND OVER WITH 5YR LOOKBACK Completed ASSESSMENT/PLAN: 1. Short of breath on exertion - ICD9: 786.05, ICD10: R06.02 (primary diagnosis) - Symptoms consistent with respiratory. No evidence of cardiac disease. Work up: - SPIROMETRY - BASELINE AND POST DILATOR - LUNG VOLUMES - LUNG DIFFUSION CAPACITY (DLCO) - XR CHEST 2V FRONTAL/LAT - F/U with Dr. Cantor in 6 months or sooner pending results of work-up. seek immediate medical care if symptoms worsen. 2. History of smoking 30 or more pack years - ICD9: V15.82, ICD10: Z87.891 As Above 3. Essential hypertension - ICD9: 401.9, ICD10: I10 - good control - Continue current medication(s) - Encouraged dietary sodium restriction/DASH diet - Recommended regular aerobic exercise. - Recommend home blood pressure monitoring, to bring results in on next visit - Discussed need and benefit for weight loss. - Goal of BP <130/80 - F/U with Dr. Cantor in 6 months. 4. Anxiety - ICD9: 300.00, ICD10: F41.9 Stable 5. BPH with urinary obstruction - ICD9: 600.01, 599.69, ICD10: N40.1, N13.8 Stable 6. Hyperlipidemia LDL goal <100 - ICD9: 272.4, ICD10: E78.5 - good control - Continue current medication. - Encouraged following a low fat, low cholesterol diet. - Follow up in 6 months. 7. Primary osteoarthritis of both knees - ICD9: 715.16, ICD10: M17.0 Stable 8. Irritable bowel syndrome with diarrhea - ICD9: 564.1, ICD10: K58.0 Stable 9. Idiopathic peripheral neuropathy - ICD9: 356.9, ICD10: G60.9 Stable 10. Class 1 obesity without serious comorbidity with body mass index (BMI) of 32.0 to 32.9 in adult, unspecified obesity type - ICD9: 278.00, V85.32, ICD10: E66.9, Z68.32 - Encourage low fat, low cholesterol diet. Watch and decrease sugar intake. 11. Hyperthyroidism - ICD9: 242.90, ICD10: E05.90 Stable Prescription instructions reviewed with patient as applicable. Potential red flag symptoms discussed with the patient. Reviewed appropriate action plan to take if red flag symptoms occur. Patient agreeable to treatment plan. Delicia Quiñonez, YAW.CUSTOMER QUALITY SPECIALIST CNOV Observed: 09/14/2017 Status: COMPLETED Source: [place] [address]:20 AM [facility] Office Visit (INTMWS) ROHAN OLIVIA JR. ([id number]) 1945 M Date Time Provider Department 09/14/17 10:20 AM DELICIA QUIÑONEZ (SANT[place]) INTMWS During your visit today, we recorded the following information about you: Temperature Pulse Respiration Blood pressure 98.3 degrees 68/minute 14/minute 126/60 Weight 99.3 kg Delicia Quiñonez APRN.CNP 09/14/2017 2:26 PM Signed CC: Patient presents with: F/U 6 Month Bilateral index fingers stiff and click: patient wonders if it is arthritis HPI Rohan Alvarenga Corwin Leach is a 72 year old male who presents today for 6 month F/U. Last seen by Dr. Cantor on 03/16/2017. States health overall is ANDquot;pretty good.ANDquot; States listed conditions are well and stable. States BP is typically around 135/65 when he thinks to check it. Does not participate in regular exercise but ANDquot;walks a lot at work.ANDquot; Watches diet for salt, but states ANDquot;sugar is my weak spot.ANDquot; Only concern today is that he has noticed that he has been ANDquot;getting more windedANDquot; the past 2-3 weeks. 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 He notices that he feels the most SOB while walking up the ramp at work. Denies any associated chest pain, palpitations, swelling, or need for added pillows. Uses one pillow for sleeping. SOB is relieved by rest. Denies any fatigue, weakness, fever, chills, night sweats, or weight gain/loss. The patient thinks that the SOB may be related to his smoking history. PMH 2 PPD smoker x 30 years. Quit smoking in 1998. States he was worked up for COPD 4 years ago and was told he did not have it. Patient is concerned that he may have COPD now. Denies cough, hemoptysis, or wheezing. REVIEW OF SYSTEMS General: See HPI Respiratory: See HPI Cardiovascular: See HPI GI: No nausea, vomiting, or diarrhea Frequent BMs. : Denies dysuria or incontinence. Positive for frequency and decreased stream. Musculoskeletal: Negative for joint pain or swelling, back pain or muscle pain Endocrine: No hair loss, no dry skin, no cold intolerance, no heat intolerance, no neck pain/pressure, no polyuria, no polyphagia and no polydipsia Neurologic: Positive for: numbness or tingling of feet PAST MEDICAL HISTORY Diagnosis Date - Acquired polycythemia 01/24/2013 - Actinic Keratosis (Premalignant AK) 09/05/2010 - Adenomatous colon polyp 10/09/2014 - Anxiety 06/19/2009 - BPH loc w/o Ur Obs/LUTS 06/19/2009 - Enterocolitis due to Clostridium difficile 05/25/2015 - Hypertension 05/04/2009 - Hyperthyroidism, subclinical 06/19/2009 - OA (osteoarthritis) of knee 01/24/2013 - Obesity 06/19/2009 - Panic attacks 2001 previously on Xanax - Seborrheic keratosis 06/19/2009 PAST SURGICAL HISTORY Procedure Laterality Date - COLONOSCOP W/ OR W/O BRSH SPEC 10/01/2014 Colonoscopy - COLONOSCOPY ANDamp; POLYPECTOMY 01/13/2017 - LAP STOMA CLOSURE, ILEOSTOMY 04/13/2015 closure of loop ileostomy - PAST SURGICAL HISTORY OF 1972 Right 4th digit reattachment - PAST SURGICAL HISTORY OF 01/01/2015 Rectal/sigmoid resection - RECONSTR NOSE 1954 Rhinoplasty, nasal fracture - REMOVAL OF TONSILS,ANDlt;12 Y/O Tonsillectomy ALLERGIES Review of patient's allergies indicates no known allergies. MEDICATIONS PARoxetine (PAXIL) 10 mg tablet take 1 tablet by mouth once daily Terazosin HCl (HYTRIN) 10 mg capsule take 1 capsule by mouth at bedtime LORazepam (ATIVAN) 1 mg tablet Take 1 tablet by mouth at bedtime as needed for Anxiety. meloxicam (MOBIC) 15 mg tablet take 1 tablet by mouth once daily if needed for KNEE PAIN WITH FOOD pravastatin (PRAVACHOL) 20 mg tablet Take 1 tablet by mouth daily at bedtime. amLODIPine (NORVASC) 10 mg tablet Take 1 tablet by mouth once daily. Loperamide HCl (IMODIUM) 2 mg tab Take 1 tablet by mouth four times daily as needed. Take 1-2 tabs by mouth 1/2 hour before meals and at bedtime as needed for diarrhea ASPIRIN 81 MG TAB Take one(1) tablet daily. FAMILY HISTORY Problem Relation Age of Onset - Psychiatry Mother anxiety - COPD Mother - Heart Mother heart failure, age 94 - Cancer Father lung cancer, age 86 - Psychiatry Sister panic attacks - Emphysema Maternal Grandfather - Asthma Maternal Grandfather - Colon Cancer Other Maternal 1st cousin age 40's Social History Substance Use Topics - Smoking status: Former Smoker Packs/day: 2.00 Years: 30.00 Types: Cigarettes Quit date: 07/04/1998 - Smokeless tobacco: Never Used - Alcohol use No PHYSICAL EXAM BP 126/60 Pulse 68 Temp 36.8 ?C (98.3 ?F) (Temporal Artery) Resp 14 Wt 99.3 kg (219 lb) SpO2 93% BMI 31.88 kg/m2 General Appearance: well appearing, in no acute distress, alert, overweight Lungs: Lungs clear to auscultation. No wheezing, rhonchi, rales Heart: RRR without murmur, gallop, or rubs. No ectopy All Extremities: No deformities, edema, skin discoloration, or cyanosis. Good capillary refill. Positive findings: Nail clubbing right pointer, middle, and index fingers. No nail clubbing noted on left hand. DIABETES SCREEN due on 09/11/2020 COLORECTAL CANCER SCREENING,SEE MODIFIER due on 01/13/2022 LIPID SCREEN due on 09/11/2022 TETANUS due on 04/10/2024 PROSTATE CANCER SCREENING DISCUSSION Completed ABDOMINAL AORTIC ANEURYSM SCREENING TOPIC Completed ADULT PREVNAR-13 Completed INFLUENZA Completed HEPATITIS C SCREENING Completed PNEUMOVAX AGE 65 AND OVER WITH 5YR LOOKBACK Completed ASSESSMENT/PLAN: 1. Short of breath on exertion - ICD9: 786.05, ICD10: R06.02 (primary diagnosis) - Symptoms consistent with respiratory. No evidence of cardiac disease. Work up: - SPIROMETRY - BASELINE AND POST DILATOR - LUNG VOLUMES - LUNG DIFFUSION CAPACITY (DLCO) - XR CHEST 2V FRONTAL/LAT - F/U with Dr. Cantor in 6 months or sooner pending results of work-up. seek immediate medical care if symptoms worsen. 2. History of smoking 30 or more pack years - ICD9: V15.82, ICD10: Z87.891 As Above 3. Essential hypertension - ICD9: 401.9, ICD10: I10 - good control - Continue current medication(s) - Encouraged dietary sodium restriction/DASH diet - Recommended regular aerobic exercise. - Recommend home blood pressure monitoring, to bring results in on next visit - Discussed need and benefit for weight loss. - Goal of BP ANDlt;130/80 - F/U with Dr. Cantor in 6 months. 4. Anxiety - ICD9: 300.00, ICD10: F41.9 Stable 5. BPH with urinary obstruction - ICD9: 600.01, 599.69, ICD10: N40.1, N13.8 Stable 6. Hyperlipidemia LDL goal ANDlt;100 - ICD9: 272.4, ICD10: E78.5 - good control - Continue current medication. - Encouraged following a low fat, low cholesterol diet. - Follow up in 6 months. 7. Primary osteoarthritis of both knees - ICD9: 715.16, ICD10: M17.0 Stable 8. Irritable bowel syndrome with diarrhea - ICD9: 564.1, ICD10: K58.0 Stable 9. Idiopathic peripheral neuropathy - ICD9: 356.9, ICD10: G60.9 Stable 10. Class 1 obesity without serious comorbidity with body mass index (BMI) of 32.0 to 32.9 in adult, unspecified obesity type - ICD9: 278.00, V85.32, ICD10: E66.9, Z68.32 - Encourage low fat, low cholesterol diet. Watch and decrease sugar intake. 11. Hyperthyroidism - ICD9: 242.90, ICD10: E05.90 Stable Prescription instructions reviewed with patient as applicable. Potential red flag symptoms discussed with the patient. Reviewed appropriate action plan to take if red flag symptoms occur. Patient agreeable to treatment plan. Delicia Quiñonez APRN.CUSTOMER QUALITY SPECIALIST Referring Provider: BRANDON CANTOR [[id number]] Allergies As of Date: 09/14/2017 (No Known Allergies) Date Reviewed: 09/14/2017 Reviewed by: Laure Jimenez Fleet Administrative Assistant - Fully Assessed Reason for Visit: F/U 6 Month [444] Bilateral index fingers stiff and click [Other] Cmt: patient wonders if it is arthritis Reason For Visit History Recorded Primary Visit Diagnosis:Short of breath on exertion [R06.02] Other Visit Diagnoses:History of smoking 30 or more pack years [Z87.891] Essential hypertension [I10] Anxiety [F41.9] BPH with urinary obstruction [N40.1, N13.8] Hyperlipidemia LDL goal <100 [E78.5] Primary osteoarthritis of both knees [M17.0] Irritable bowel syndrome with diarrhea [K58.0] Idiopathic peripheral neuropathy [G60.9] Class 1 obesity without serious comorbidity with body mass index (BMI) of 32.0 to 32.9 in adult, unspecified obesity type [E66.9, Z68.32] Hyperthyroidism [E05.90] Order(s):SPIROMETRY - BASELINE AND POST DILATOR [6236572] Order #: [id number] FUTURE LUNG VOLUMES [[id number]] Order #: [id number] FUTURE LUNG DIFFUSION CAPACITY (DLCO) [[id number]] Order #: [id number] FUTURE XR CHEST 2V FRONTAL/LAT [[id number]] Order #: [id number] FUTURE Prescriptions as of 09/14/2017 Sig: PAROXETINE 10 MG TABLET take 1 tablet by mouth once d* TERAZOSIN 10 MG CAPSULE take 1 capsule by mouth at be* LORAZEPAM 1 MG TABLET Take 1 tablet by mouth at bed* MELOXICAM 15 MG TABLET take 1 tablet by mouth once d* PRAVASTATIN 20 MG TABLET Take 1 tablet by mouth daily * AMLODIPINE 10 MG TABLET Take 1 tablet by mouth once d* LOPERAMIDE 2 MG TABLET Take 1 tablet by mouth four t* ASPIRIN 81 MG TABLET Take one(1) tablet daily. Patient taking differently: Take one(1) tablet daily BY M* Problem List As Of Date 09/14/2017 Noted Resolved Hypertension [I10] INVALID FOR* Anxiety [F41.9] INVALID FOR*10/22/2015 BPH without urinary obstruction [N40.0] INVALID FOR* Obesity [E66.9] INVALID FOR* Subclinical hyperthyroidism [E05.90] INVALID FOR*06/16/2011 Seborrheic Keratoses [L82.1] INVALID FOR*07/26/2012 Actinic Damage///Sun-damaged skin [L57.8] INVALID FOR*07/26/2012 Solar lentigines [L81.4] INVALID FOR*07/26/2012 Stucco keratosis [L85.1] INVALID FOR*10/22/2015 Hyperthyroidism, subclinical [E05.90] INVALID FOR* OA (osteoarthritis) of knee [M17.10] INVALID FOR* Acquired polycythemia [D75.1] INVALID FOR*07/22/2015 Hyperlipidemia LDL goal <100 [E78.5] INVALID FOR* Ileus, postoperative (HCC) [K91.89, K56.7] INVALID FOR*07/22/2015 Enterocolitis due to Clostridium difficile [A04*INVALID FOR*10/22/2015 Irritable bowel syndrome with diarrhea [K58.0] INVALID FOR* Flatulence [R14.3] INVALID FOR*03/16/2017 Elevated prostate specific antigen (PSA) [R97.2*INVALID FOR* Idiopathic peripheral neuropathy [G60.9] INVALID FOR* Encounter Status:Closed by DELICIA QUIÑONEZ CNP on 09/14/17 BASIC METABOLIC PANL Collected: 09/11/2017 Status: F Source: [place] 8:44 AM [facility] TYPE CODE TESTS RESULT OUT OF REFERENCE UNITS RANGE LAB GLU 74-99 mg/dL High Glucose 103 Result Comment: The [place] [employer] (ADA) provides guidance for cutoff values for fasting glucose and random glucose. The ADA defines fasting as no caloric intake for at least 8 hours. Fas ting plasma glucose results between 100 to 125 mg/dL indicate increased risk for diabetes (prediabetes). Fasting plasma glucose results greater than or equal to 126 mg/dL meet the criteria for diagnosis of diabetes. In the absence of unequivocal hyperglycemia, results should be confirmed by repeat testing. In a patient with classic symptoms of hyperglycemia or hyperglycemic crisis, random plasma glucose results greater than or equal to 200 mg/dL meet the criteria for diagnosis of diabetes. Reference: Standards of Medical Care in Diabetes 2016, [place] [employer]. Diabetes Care. 2016.39(Suppl 1). LAB BUN 9-24 mg/dL BUN 14 LAB CRET 0.73-1.22 mg/dL Creatinine 0.95 LAB NA 136-144 mmol/L Sodium High 145 LAB K 3.7-5.1 mmol/L Potassium 4.0 LAB CL 97-105 mmol/L Chloride High 107 LAB CO2 22-30 mmol/L CO2 28 LAB AGAP 9-18 mmol/L Anion Gap 10 LAB CA 8.5-10.2 mg/dL Calcium, Total 9.1 LAB GFRAA eGFR- Amer. >60 LAB GFRNAA . eGFR-All Other Races >60 Result Comment: eGFR (Estimated GFR) Units of measure: mL/min/1.73 meters squared eGFR is derived from the reexpressed MDRD Study equation using the following parameters: serum creatinine, age, gender and race. The creatinine assay has been calibrated to be traceable to IDMS. An eGFR <60 mL/min/1.73m2 for >3 months is consistent with chronic kidney disease. Refer to KDOQI guidelines for clinical interpretation. In patients with unstable renal function, e.g. those with acute kidney injury, the eGFR may not accurately reflect actual GFR. Performed By: #### BMP, LIPB #### [facility] [address] [id number] LIPID PANEL, BASIC Collected: 09/11/2017 Status: F Source: [place] 8:44 AM [facility] TYPE CODE TESTS RESULT OUT OF REFERENCE UNITS RANGE LAB CHOL <200 mg/dL Cholesterol 123 Result Comment: <200 mg/dL, Desirable 200-239 mg/dL, Borderline high >239 mg/dL, High LAB TRIGLY <150 mg/dL Triglyceride 76 Result Comment: <150 mg/dL, Normal 150-199 mg/dL, Borderline high 200-499 mg/dL, High >499 mg/dL, Very high LAB HDL >39 mg/dL HDL-Cholesterol Low 38 Result Comment: 40-59 mg/dL, Acceptable >59 mg/dL, High: Negative risk factor for coronary heart disease <40 mg/dL, Low: Positive risk factor for coronary heart disease LAB LDL <100 mg/dL LDL-Cholesterol 70 Result Comment: <100 mg/dL, Optimal 100-129 mg/dL, Near optimal/above optimal 130-159 mg/dL, Borderline high 160-189 mg/dL, High >189 mg/dL, Very high Secondary prevention optimal LDL Cholesterol levels are recommended to be < 70 mg/dL LAB NONHDL <130 mg/dL Non HDL Cholesterol 85 Result Comment: <130 mg/dL, Optimal 130-159 mg/dL, Near optimal/above optimal 160-189 mg/dL, Borderline high 190-219 mg/dL, High >219 mg/dL, Very high Secondary prevention optimal non HDL Cholesterol levels are recommended to be < 100 mg/dL LAB FT hrs Fasting Time 11 LAB VLDL <30 mg/dL VLDL Cholesterol 15 LAB TCHDL <5.10 TC:HDL Ratio 3.24 LAB LDLHDL <2.54 LDL:HDL Ratio 1.84 Result Comment: Reference: 1. National Cholesterol Education Program ATP III Guideline At-A-Glance Quick Desk Reference: National Heart, Lung, and Blood [place]. National Institutes of Health. 2001: NIH Publication No. 01-3305. 2. An International Atherosclerosis Society position paper: global recommendations for the management of dyslipidemia: executive summary, Atherosclerosis. 2014: 232(2):410-413. Performed By: #### BMP, LIPB #### [facility] [address] [place], [place] [address] CNPTOUTREACH Observed: 08/29/2017 Status: COMPLETED Source: [place] 12:00 AM [facility] CAMPUS REPOSITORY Patient Outreach ([facility]) ROHAN OLIVIA JR. ([id number]) 1945 M Date Time Provider Department 08/29/17 [facility] During your visit today, we recorded the following information about you: Allergies As of Date: 08/29/2017 (No Known Allergies) Date Reviewed: 04/05/2017 Reviewed by: Jennifer Martínez Ma - Fully Assessed Visit Diagnosis:Medication management [Z79.899] Order(s):BASIC METABOLIC PNL [SQBMP] Order #: [id number] FUTURE LIPID PANEL BASIC [SQLIPB] Order #: [id number] FUTURE Prescriptions as of 08/29/2017 Sig: X PAROXETINE 10 MG TABLET take 1 tablet by mouth once d* X TERAZOSIN 10 MG CAPSULE take 1 capsule by mouth at be* X LORAZEPAM 1 MG TABLET Take 1 tablet by mouth at bed* X MELOXICAM 15 MG TABLET take 1 tablet by mouth once d* Patient not taking: Reported on 01/30/2018 X PRAVASTATIN 20 MG TABLET Take 1 tablet by mouth daily * X AMLODIPINE 10 MG TABLET Take 1 tablet by mouth once d* X LOPERAMIDE 2 MG TABLET Take 1 tablet by mouth four t* Patient not taking: Reported on 01/30/2018 ASPIRIN 81 MG TABLET Take one(1) tablet daily. Patient taking differently: Take one(1) tablet daily BY M* Problem List As Of Date 08/29/2017 Noted Resolved Hypertension [I10] INVALID FOR* Anxiety [F41.9] INVALID FOR*10/22/2015 BPH without urinary obstruction [N40.0] INVALID FOR* Seborrheic Keratosis [L82.1] INVALID FOR* Obesity [E66.9] INVALID FOR* Subclinical hyperthyroidism [E05.90] INVALID FOR*06/16/2011 Actinic Keratosis (Premalignant AK) [L57.0] INVALID FOR* Seborrheic Keratoses [L82.1] INVALID FOR*07/26/2012 Actinic Damage///Sun-damaged skin [L57.8] INVALID FOR*07/26/2012 Solar lentigines [L81.4] INVALID FOR*07/26/2012 Stucco keratosis [L85.1] INVALID FOR*10/22/2015 Hyperthyroidism, subclinical [E05.90] INVALID FOR* OA (osteoarthritis) of knee [M17.10] INVALID FOR* Acquired polycythemia [D75.1] INVALID FOR*07/22/2015 Hyperlipidemia LDL goal <100 [E78.5] INVALID FOR* Adenomatous colon polyp [D12.6] INVALID FOR* Ileus, postoperative (HCC) [K91.89, K56.7] INVALID FOR*07/22/2015 Enterocolitis due to Clostridium difficile [A04*INVALID FOR*10/22/2015 Irritable bowel syndrome with diarrhea [K58.0] INVALID FOR* Flatulence [R14.3] INVALID FOR*03/16/2017 Elevated prostate specific antigen (PSA) [R97.2*INVALID FOR* Idiopathic peripheral neuropathy [G60.9] INVALID FOR* Encounter Status:Closed by EPIC, PRODUSER on 10/12/18 OBSOLETE Observed: 05/23/2017 Status: COMPLETED Source: [place] 12:00 AM [facility] Refill ([facility]) ROHAN OLIVIA JR. ([id number]) 1945 M Date Time Provider Department 05/23/17 BRANDON CANTOR [facility] During your visit today, we recorded the following information about you: Eugenia Brown LPN 05/23/2017 3:47 PM Signed Patient's pharmacy requesting refills as follows: Pending Prescriptions Disp Refills PAROXETINE 10 MG TABLET 30 tablet 11 Sig: take 1 tablet by mouth once daily GEORGI: no TERAZOSIN 10 MG CAPSULE 30 capsule 11 Sig: take 1 capsule by mouth at bedtime GEORGI: no Last appt with pcp 03/16/17. Next 09/14/17. Please review and advise. Eugenia Quiñonez CNP 05/23/2017 3:48 PM Signed The following approved medication requests have been transmitted electronically. Signed Prescriptions Disp Refills PARoxetine (PAXIL) 10 mg tablet 30 tablet 11 Sig: take 1 tablet by mouth once daily GEORGI: No Authorizing Provider: DELICIA QUIÑONEZ) Terazosin HCl (HYTRIN) 10 mg capsule 30 capsule 11 Sig: take 1 capsule by mouth at bedtime GEORGI: No Authorizing Provider: DELICIA QUIÑONEZ) Delicia Quiñonez CNP Allergies As of Date: 05/23/2017 (No Known Allergies) Date Reviewed: 04/05/2017 Reviewed by: Jennifer Martínez Ma - Fully Assessed Reason for Visit: Refill Request [94] Order(s):PARoxetine (PAXIL) 10 mg tablettake 1 tablet by mouth once dailyDisp: 30 tabletRfl: 11 Terazosin HCl (HYTRIN) 10 mg capsuletake 1 capsule by mouth at bedtimeDisp: 30 capsuleRfl: 11 Prescriptions as of 05/23/2017 Sig: PAROXETINE 10 MG TABLET take 1 tablet by mouth once d* TERAZOSIN 10 MG CAPSULE take 1 capsule by mouth at be* LORAZEPAM 1 MG TABLET Take 1 tablet by mouth at bed* MELOXICAM 15 MG TABLET take 1 tablet by mouth once d* PRAVASTATIN 20 MG TABLET Take 1 tablet by mouth daily * AMLODIPINE 10 MG TABLET Take 1 tablet by mouth once d* LOPERAMIDE 2 MG TABLET Take 1 tablet by mouth four t* Patient not taking: Reported on 04/05/2017 ASPIRIN 81 MG TABLET Take one(1) tablet daily. Patient taking differently: Take one(1) tablet daily BY M* Problem List As Of Date 05/23/2017 Noted Resolved Hypertension [I10] INVALID FOR* Anxiety [F41.9] INVALID FOR*10/22/2015 BPH without urinary obstruction [N40.0] INVALID FOR* Seborrheic Keratosis [L82.1] INVALID FOR* Obesity [E66.9] INVALID FOR* Subclinical hyperthyroidism [E05.90] INVALID FOR*06/16/2011 Actinic Keratosis (Premalignant AK) [L57.0] INVALID FOR* Seborrheic Keratoses [L82.1] INVALID FOR*07/26/2012 Actinic Damage///Sun-damaged skin [L57.8] INVALID FOR*07/26/2012 Solar lentigines [L81.4] INVALID FOR*07/26/2012 Stucco keratosis [L85.1] INVALID FOR*10/22/2015 Hyperthyroidism, subclinical [E05.90] INVALID FOR* OA (osteoarthritis) of knee [M17.10] INVALID FOR* Acquired polycythemia [D75.1] INVALID FOR*07/22/2015 Hyperlipidemia LDL goal <100 [E78.5] INVALID FOR* Adenomatous colon polyp [D12.6] INVALID FOR* Ileus, postoperative (HCC) [K91.89, K56.7] INVALID FOR*07/22/2015 Enterocolitis due to Clostridium difficile [A04*INVALID FOR*10/22/2015 Irritable bowel syndrome with diarrhea [K58.0] INVALID FOR* Flatulence [R14.3] INVALID FOR*03/16/2017 Elevated prostate specific antigen (PSA) [R97.2*INVALID FOR* Idiopathic peripheral neuropathy [G60.9] INVALID FOR* Prescriptions ordered this encounter Disp Refills Start End PAROXETINE 10 MG TABLET 30 t* 11 05/23/2017 Sig: take 1 tablet by mouth once daily TERAZOSIN 10 MG CAPSULE 30 c* 11 05/23/2017 Sig: take 1 capsule by mouth at bedtime Medications Discontinued During This Encounter PARoxetine (PAXIL) 10 mg tablet 30 t* 11 05/13/2016 05/23/2017 Sig: take 1 tablet by mouth once daily Disc: Reason for discontinue is not on file. Terazosin HCl (HYTRIN) 10 mg capsule 30 c* 11 05/13/2016 05/23/2017 Sig: take 1 capsule by mouth at bedtime Disc: Reason for discontinue is not on file. Encounter Status:Closed by DELICIA QUIÑONEZ CNP on 05/23/17 ALLERGIES ALLERGIES DATE TYPE / CODE NAME / CODE REACTION SEVERITY SOURCE 05/18/2018 Drug No Known Unknown [facility] Allergy/416 Allergies/P66527 Hospital 824586(SNOM 0388(RXNORM) Repository ED CT) Drug NO KNOWN [facility] Class/92114 ALLERGIES Main [place] 1003(SNOMED Repository CT) ENCOUNTERS ENCOUNTERS ADMIT/DISCHARGE ACCOUNT ADMITTING ENCOUNTER LOCATION SOURCE NUMBER CLASS 05/18/2018 [id number] Ambulatory [facility] Hospital ing:RAD Repository 05/18/2018 [id number] Ambulatory [facility] Repository 05/18/2018/05/18/20 [id number] Ambulatory [facility] [facility] [place] [place] 05/10/2018/05/10/20 [id number] Ambulatory BMSBuilding:[place] [facility] [place] [place] 05/01/2018 [id number] Ambulatory BMSBuilding:[facility] Repository 05/01/2018 [id number] Ambulatory [facility] Hospital ing:PSN Repository 04/09/2018 [id number] Ambulatory BMSBuilding:[facility] Repository 04/09/2018 [id number] Ambulatory [facility] Hospital ing:PSN Repository 03/27/2018 [id number] Ambulatory [facility] Hospital ing:LAB Repository 03/15/2018/03/16/20 [id number] Ambulatory [address] Repository 03/12/2018/03/12/20 [id number] Ambulatory [address] Repository 03/05/2018 [id number] Ambulatory [facility] ing:LABSPEC Repository 02/13/2018 [id number] Ambulatory BMSBuilding:[facility] Repository 02/13/2018 [id number] Ambulatory [facility] ing:CVS Repository 01/31/2018/02/01/20 [id number] Ambulatory BMSBuilding:[place] [facility] [place] [place] [place] 01/30/2018/02/01/20 [id number] Ambulatory [address] Repository 01/17/2018/01/26/20 [id number] Kenneth Jung Chi Inpatient [address] ing:TCURoom: Repository [id number]: 1 01/12/2018/01/18/20 [id number] Ambulatory BMSBuilding:W [address] Repository 01/11/2018/01/18/20 [id number] Jaspreet Gaemz Inpatient [address] ing:PCURoom: Repository [id number]: 1 01/11/2018/01/18/20 [id number] Ambulatory BMSBuilding:W [address] Repository 01/11/2018/01/18/20 [id number] Ambulatory BMSBuilding:W [address] Repository 01/11/2018 [id number] Jaspreet Gamez Ambulatory BMSBuilding:B [place] MS.[facility] Repository 01/11/2018 [id number] Jaspreet Gamez Ambulatory BMSBuilding:[place] [place] 01/11/2018 [id number] Jaspreet Gamez Ambulatory BMSBuilding:B [place] MS.[facility] Repository 01/11/2018 [id number] Jaspreet Gamez Ambulatory [facility]MSBuilding:[place] [place] 01/11/2018 [id number] Jaspreet Gamez Ambulatory BMSBuilding:[place]ena [place] [place] 01/11/2018 [id number] Jaspreet Gamez Ambulatory BMSBuilding:Jena Mcarthur MS.[facility] Repository 01/11/2018 [id number] Jaspreet Gamez Ambulatory BMSBuilding:Jena Mcarthur MS.[facility] Repository 01/11/2018 [id number] Jaspreet Gamez Ambulatory BMSBuilding:Jena Mcarthur MS.[facility] Repository 01/11/2018 [id number] Jaspreet Gamez Ambulatory BMSBuilding:Jena Mcarthur MS.[facility] Repository 01/11/2018 [id number] Ambulatory BMSBuilding:Jena Mcarthur MS.[facility] Repository 12/14/2017/12/26/19 [id number] Ambulatory [address] Repository 10/19/2017/10/20/19 [id number] Ambulatory [address] Repository 10/19/2017/10/20/19 [id number] Ambulatory [address] Repository 10/19/2017/10/21/19 [id number] Ambulatory [address] [place] Repository 09/21/2017/09/22/19 [id number] Ambulatory [address] [place] Repository 09/21/2017/09/22/19 [id number] Ambulatory [address] [place] Repository 09/21/2017/10/06/19 [id number] Ambulatory [address] [place] Repository 09/14/2017/09/15/19 [id number] Ambulatory [address] [place] Repository 09/14/2017 [id number] Ambulatory [facility] [place] Repository 09/14/2017 [id number] Ambulatory [facility] [place] Repository 09/14/2017 [id number] Ambulatory [facility] [place] Repository 09/14/2017/09/16/19 [id number] Ambulatory [address] [place] Repository 09/11/2017 [id number] Ambulatory [facility] Repository PAYERS PAYERS ENCOUNTER GUARANTOR PAYER SUBSCRIBER SOURCE 05/18/2018 ROHAN Alvarenga Primary ROHAN Mcarthur [id number] Insurance[place] [id number] Hospital 71416Bbl: (330) [facility] Number: Repository [phone] () [id number] Date:0434-29-29DO [address] [place] [address] 66518SY: 05/18/2018 Secondary NOT GIVENUNK [place] Insurance:SELF PAY [facility] Number: Effective Repository Date:2018-05-18 05/18/2018 ROHAN W Primary ROHAN W [place] [id number] [address] Insurance:ANTHE[place] [id number] Hospital 12231Bml: (330) [facility] Number: Repository [phone] () [id number] Date:6587-83-79XH [address] [place] [address] 84259QA: 05/18/2018 Secondary NOT GIVENUNK [place] Insurance:SELF PAY [facility] Number: Effective Repository Date:2018-05-18 05/18/2018 ROHAN W Primary ROHAN W [place] [id number] [address] Insurance:ANTHEM HOPPEDOB: [facility] [place] [id number] Hospital 44378Rhb: (330) [employer] Number: Repository [phone] () [id number] Date:4688-75-63LH [address] [place] [address] 19951JW: 05/18/2018 Secondary NOT GIVENUNK [place] Insurance:SELF PAY [facility] Number: Effective Repository Date:2018-05-18 05/10/2018 ROHAN W Primary ROHAN W [place] [id number] [address] Insurance:ANTHEM HOPPEDOB: [place] [facility] [id number] Hospital 72357Wqr: (330) [facility]icy Number: Repository [phone] () [id number] Date:8631-54-24RZ [address] [place] [address] 51743GH: 05/10/2018 Secondary NOT GIVENUNK [place] Insurance:SELF PAY [facility] Number: Effective Repository Date:2018-05-03 05/01/2018 ROHAN Alvarenga Primary ROHAN W [place] [id number] [address] Insurance:ANTHE[place] [id number] Hospital 00308Bls: (330) [facility] Number: Repository [phone] () [id number] Date:3194-10-03BB [address] [place] [address] 15380PX: 05/01/2018 Secondary NOT GIVENUNK [place] Insurance:SELF PAY [facility] Number: Effective Repository Date:2018-05-01 05/01/2018 ROHAN W Primary ROHAN W [place] [id number] [address] Insurance:ANTHEM [place] [id number] [id number]: (330) [facility]ANT[facility]icy Number: Repository [phone] () [id number] Date:2158-35-15DO [address] [place] [address] 02759ZH: 05/01/2018 Secondary NOT GIVENUNK [place] Insurance:SELF PAY [facility] Number: Effective Repository Date:2018-01-31 04/09/2018 ROHAN Alvarenga Primary ROHAN W [place] [id number] [place] Insurance:ANTHEM [place]OP[place]OB[place] [id number] Hospital 84086Qpm: (330) [facility] Number: Repository [phone] () [id number] Date:8601-42-59JX [address] [place] [address] 53993XV: 04/09/2018 Secondary NOT GIVENUNK [place] Insurance:SELF PAY [facility] Number: Effective Repository Date:2018-04-09 04/09/2018 ROHAN W Primary ROHAN W [place] [id number] [place] Insurance:ANTHEM [place]OP[place]OB[place] [id number] Hospital 81142Vvh: (330) [facility] Number: Repository [phone] () [id number] Date:9558-25-21EF [address] [place] [address] 25864OJ: 04/09/2018 Secondary NOT GIVENUNK [place] Insurance:SELF PAY [facility] Hospital Number: Effective Repository Date:2018-01-31 03/27/2018 ROAHN W Primary ROHAN W [place] [id number] [address] Insurance:ANTHEM [place]OPPEDOB[place] [id number] Hospital 59818Gvc: (330) [facility]icy Number: Repository [phone] () [id number] Date:4790-54-75KP [address] [place] [address] 91134HW: 03/27/2018 Secondary NOT GIVENUNK [place] Insurance:SELF PAY [facility] Number: Effective Repository Date:2018-03-27 03/05/2018 ROHAN W Primary ROHAN W [place] [id number] [address] Insurance:ANTHEM [id number] [id number]: (330) [facility]ANTAPolicy Number: Repository [phone] () [id number] Date:8719-22-25YD [address] [place] [address] 91927UL: 03/05/2018 Secondary NOT GIVENUNK [place] Insurance:SELF PAY [facility] Number: Effective Repository Date:2018-03-05 02/13/2018 ROHAN W Primary ROHAN W [place] [id number] [place] Insurance:ANTHEM [place] [id number] Hospital 31041Xlf: (330) [facility]olicy Number: Repository [phone] () [id number] Date:0824-92-01FY [address] [place] [address] [place] [address]65[address]CO: 02/13/2018 Secondary NOT GIVENUNK [place] Insurance:SELF PAY [facility] Number: Effective Repository Date:2018-02-13 02/13/2018 ROHAN W Primary ROHAN W [place] [id number] [address] Insurance:ANTHEM [place]OPPEDOB[place] [id number] Hospital 51997Rqs: (330) [facility]olicy Number: Repository [phone] () [id number] Date:9759-36-14IJ [address] [place] [address] 45171XA: 02/13/2018 Secondary NOT GIVENUNK [place] Insurance:SELF PAY [facility] Number: Effective Repository Date:2018-02-09 01/31/2018 ROHAN W Primary ROHAN W [place] [id number] [address] Insurance:ANTHEM [place] [id number] [place] [address]Tel: (330) [facility]ANTAPolicy Number: Repository [phone] () [id number] Date:1416-38-95MA [address] [place] [address] 94360KR: 01/31/2018 Secondary NOT GIVENUNK [place] Insurance:SELF PAY [facility] Number: Effective Repository Date:2018-01-24 01/17/2018 ROHAN W Primary ROHAN W [place] [id number] [address] Insurance:ANTHE[place] [id number] [place] [id number]: (330) [facility]icy Number: Repository [phone] () [id number] Date:6133-85-32MY [address] [place] [address] 83806YM: 01/17/2018 Secondary ROHAN W [place] Insurance:MEDICARE HOPPEDOB: Community PART A [facility] [id number] Hospital Number: Repository [id number] Date:2018-01-17 01/17/2018 Tertiary NOT GIVENUNK [place] Insurance:SELF PAY [facility] Number: Effective Repository Date:2018-01-17 01/12/2018 ROHAN W Primary ROHAN W [place] [id number] [place] Insurance:ANTHEM [place] [id number] [place] [id number]: (330) [facility]ANT[facility]olicy Number: Repository [phone] () [id number] Date:2192-51-09UK [address] [place] [address] 50939FV: 01/12/2018 Secondary NOT GIVENUNK [place] Insurance:SELF PAY [facility] Number: Effective Repository Date:2018-01-12 01/11/2018 ROHAN W Primary ROHAN W [place] [id number] [address] Insurance:ANTHEM HOPPEDOB: [place] [facility] [id number] Hospital 78055Cxl: (330) [facility] Number: Repository [phone] () [id number] Date:8052-45-46GS [address] [place] [address] 88157HZ: 01/11/2018 Secondary NOT GIVENUNK [place] Insurance:SELF PAY [facility] Number: Effective Repository Date:2018-01-11 01/11/2018 ROHAN W Primary ROHAN W [place] [id number] [address] Insurance:ANTHEM HOPPEDOB: [place] [id number] Hospital 04454Hhp: (330) [facility]icy Number: Repository [phone] () [id number] Date:3958-06-13OE [address] [place] [address] 30060WZ: 01/11/2018 Secondary NOT GIVENUNK [place] Insurance:SELF PAY [facility] Number: Effective Repository Date:2018-01-11 01/11/2018 ROHAN W Primary ROHAN W [place] [id number] [address] Insurance:[place]HE[place] [id number] Hospital 43404Kgn: (330) [facility]ANT[facility]olicy Number: Repository [phone] () [id number] Date:7670-68-96GQ [address] [place] [address] 47486VK: 01/11/2018 Secondary NOT GIVENUNK [place] Insurance:SELF PAY [facility] Number: Effective Repository Date:2018-01-11 01/11/2018 ROHAN W Primary ROHAN W [place] [id number] [address] Insurance:[place]HE[place] [id number] Hospital 45467Zta: (330) [facility]ANT[facility]olicy Number: Repository [phone] () [id number] Date:9189-66-64EP [address] [place] [address] 16303YF: 01/11/2018 Secondary NOT GIVENUNK [place] Insurance:SELF PAY [facility] Number: Effective Repository Date:2018-01-11 01/11/2018 ROHAN W Primary ROHAN W [place] [id number] [address] Insurance:[place]HE[place] [id number] Hospital 06918Lrd: (330) [facility]olicy Number: Repository [phone] () [id number] Date:4677-39-15YY [address] [place] [address] 00465TZ: 01/11/2018 Secondary NOT GIVENUNK [place] Insurance:SELF PAY [facility] Number: Effective Repository Date:2018-01-11 01/11/2018 ROHAN W Primary ROHAN W [place] [id number] [place] Insurance:[place]HE[place] [id number] Hospital 10737Bvp: (330) [facility]VANTAPolicy Number: Repository [phone] () [id number] Date:1318-82-21UM [address] [place] [address] 28679ND: 01/11/2018 Secondary NOT GIVENUNK [place] Insurance:SELF PAY [facility] Number: Effective Repository Date:2018-01-11 01/11/2018 ROHAN W Primary ROHAN W [place] [id number] [place] Insurance:[place]HE[place] [id number] Hospital 18503Rtl: (330) [facility]VANT[facility]olicy Number: Repository [phone] () [id number] Date:1394-39-44LO [address] [place] [address] 73263BT: 01/11/2018 Secondary NOT GIVENUNK [place] Insurance:SELF PAY [facility] Number: Effective Repository Date:2018-01-11 01/11/2018 ROHAN Alvarenga Primary ROHAN W [place] [id number] [address] Insurance:ANTHEM HOPPEDOB: [place] [id number] Hospital 19025Fjs: (330) [facility]olicy Number: Repository [phone] () [id number] Date:9621-03-32QP [address] [place] [address] 07137TM: 01/11/2018 Secondary NOT GIVENUNK [place] Insurance:SELF PAY [facility] Number: Effective Repository Date:2018-01-11 01/11/2018 ROHAN Alvarenga Primary ROHAN W [place] [id number] [place] Insurance:[place]HE[place] [id number] Hospital 63002Zxl: (330) [facility]olicy Number: Repository [phone] () [id number] Date:1666-34-30RS [address] [place] [address] 56417OO: 01/11/2018 Secondary NOT GIVENUNK [place] Insurance:SELF PAY [facility] Number: Effective Repository Date:2018-01-11 01/11/2018 ROHAN W Primary ROHAN W [place] [id number] [place] Insurance:[place] [id number] Hospital 82844Eci: (330) ADVANTAPolicy Number: Repository [phone] () [id number] Date:0080-50-23LX [address] [place] [address] 66889NY: 01/11/2018 Secondary NOT GIVENUNK [place] Insurance:SELF PAY [facility] Number: Effective Repository Date:2018-01-11 01/11/2018 ROHAN W Primary ROHAN W [place] [id number] [place] Insurance:[place]HEM [place] [id number] Hospital 67134Cdr: (330) ADVANTAPolicy Number: Repository [phone] () [id number] Date:5034-73-56CS [address] [place] [address] 50293KW: 01/11/2018 Secondary NOT GIVENUNK [place] Insurance:SELF PAY [facility] Number: Effective Repository Date:2018-01-11 01/11/2018 ROHAN W Primary ROHAN W [place] [id number] [place] Insurance:[place]HEM [place] [id number] Hospital 29981Loe: (330) ADVANTAPolicy Number: Repository [phone] () [id number] Date:4379-92-75YG [address] [place] [address] 51115CL: 01/11/2018 Secondary NOT GIVENUNK [place] Insurance:SELF PAY [facility] Number: Effective Repository Date:2018-01-11 01/11/2018 ROHAN W Primary ROHAN W [place] [id number] [address] Insurance:ANTHEMPolic [place]OB[place] Number: [id number] Hospital 87726Ewo: (330) [id number] Repository [phone] () Date:9068-85-74XN [address] [place] [address] 66047QK: 01/11/2018 Secondary NOT GIVENUNK [place] Insurance:SELF PAY [facility] Number: Effective Repository Date:2018-01-11
== END ==
PROVIDERS: Family Provider Internal Medicine; PCP Internal Medicine; Referring Provider Nurse Practitioner Acute Care; Visit Provider Nurse Practitioner Acute Care
DX: R06.00 Dyspnea, unspecified (principal)
CPT/HCPCS: 94060; 94726; 94729

== ENCOUNTER → 2018-05-18 11:23 | Outpatient (CLI) | payer MEDICARE, SELFPAY ==
[2018-05-18 10:58] VITALS: BMI 28.7
--- NOTE | 2018-05-18 11:26 | RAD_ITS ---
STUDY: X-RAY CHEST REASON FOR EXAM: Male, 72 years old. Cough. TECHNIQUE: Frontal and lateral views of the chest. COMPARISON: None. FINDINGS: The lungs are clear and expanded. There is no demonstrated pleural abnormality. Normal size heart. Normal mediastinum and zach. Normal visualized pulmonary arteries. There is atherosclerotic calcification of the aortic arch with tortuosity. There are diffuse degenerative changes of the visualized thoracic spine. Normal visualized ribs, clavicles, and shoulders. There is no demonstrated abnormality of the visualized soft tissue structures of the upper abdomen. RAD/Chest PA and Lateral IMPRESSION: Degenerative changes, as described above. No demonstrated acute cardiopulmonary process. Electronically Signed: Henry Olmos MD at 14:21 EST , Service support ,
--- OUTSIDE RECORDS SUMMARY | 2018-07-04 04:49 | XMS RPT_ITS ---
:1945 Author Organization [place] Support Name Relationship Address Phone SHIVANI OLIVIA Unavailable [address] + [place] [address] CORWIN, ERASTO Unavailable [address] + [place] [address] R Unavailable Unavailable Unavailable CORWIN, SHIVANI Unavailable [address] + [place] [address] CORWIN, ERASTO Unavailable [address] + [place] [address] R Unavailable Unavailable Unavailable CORWIN, SHIVANI Unavailable [address] + [place] [address] CORWIN, ERASTO Unavailable [address] + [place] [address] R Unavailable Unavailable Unavailable CORWIN, SIHVANI Unavailable [address] + [place] [address] CORWIN, ERASTO Unavailable [address] + [place] [address] R Unavailable Unavailable Unavailable CORWIN, SHIVANI Unavailable [address] + [place] [address] CORWIN, ERASTO Unavailable [address] + [place] [address] R Unavailable Unavailable Unavailable CORWIN, SHIVANI Unavailable [address] + [place] [address] CORWIN, ERASTO Unavailable [address] + [place] [address] R Unavailable Unavailable Unavailable CORWIN, SHIVANI Unavailable [address] + [place] [address] CORWIN, ERASTO Unavailable [address] + [place] [address] R Unavailable Unavailable Unavailable CORWIN, SHIVANI Unavailable [address] + [place] [address] CORWIN, ERASTO Unavailable [address] + [place] [address] R Unavailable Unavailable Unavailable CORWIN, SHIVANI Unavailable [address] + [place] [address] CORWIN, ERASTO Unavailable [address] + [place], [place] [id number] [place] [address] [employer] [place] [address] + [place] [address] CORWIN, SHIVANI Unavailable [address] + [place] [address] CORWIN, ERASTO Unavailable [address] + [place], [place] [id number] [place] [address] [employer] [place] [address] + [place] [address] CORWIN, SHIVANI Unavailable [address] + [place] [address] CORWIN, ERASTO Unavailable [address] + [place], [place] [id number] [place] [address] [employer] [place] [address] + [place] [address] CORWIN, SHIVANI Unavailable [address] + [place] [address] CORWIN, ERASTO Unavailable [address] + [place], [place] [id number] [place] [address] [employer] [place] [address] + [place] [address] CORWIN, SHIVANI Unavailable [address] + [place] [address] CORWIN, ERASTO Unavailable [address] + [place], [place] [id number] [place] [address] [employer] [place] [address] + [place] [address] CORWIN, SHIVANI Unavailable [address] + [place] [address] CORWIN, ERASTO Unavailable [address] + [address] [employer] [place] [address] + [place] [address] CORWIN, SHIVANI Unavailable [address] + [place] [address] CORWIN, ERASTO Unavailable [address] + [place], [place] [id number] [place] [address] [employer] [place] [address] + [place] [address] CORWIN, SHIVANI Unavailable [address] + [place] [address] CORWIN, ERASTO Unavailable [address] + [place], [place] [address] [place] [address] [employer] [place] [address] + [place] [address] CORWIN, SHIVANI Unavailable [address] + [place] [address] CORWIN, ERASTO Unavailable [address] + [address] [employer] [place] [address] + [place] [address] CORWIN, SHIVANI Unavailable [address] + [place] [address] CORWIN, ERASTO Unavailable [address] + [place], [place] [id number] [place] [address] [employer] [place] [address] + [place] [address] CORWIN, SHIVANI Unavailable [address] + [place] [address] CORWIN, ERASTO Unavailable [address] + [place], [place] [id number] [place] [address] [employer] [place] [address] + [place] [address] CORWIN, SHIVANI Unavailable [address] + [place] [address] CORWIN, ERASTO Unavailable [address] + [place], [place] [id number] [place] [address] [employer] [place] [address] + [place] [address] CORWIN, SHIVANI Unavailable [address] + [place] [address] CORWIN, ERASTO Unavailable [address] + [address] [employer] [place] [address] + [place] [address] CORWIN, SHIVANI Unavailable [address] + [place] [address] CORWIN, ERASTO Unavailable [address] + [address] OF [place] [address] + [place] [address] CORWIN, SHIVANI Unavailable [address] + [place] [address] CORWIN, ERASTO Unavailable [address] + [address] OF [place] [address] + [place] [address] CORWIN, SHIVANI Unavailable [address] + [place] [address] CORWIN, ERASTO Unavailable [address] + [address] OF [place] [address] + [place] [address] CORWIN, SHIVANI Unavailable [address] + [place] [address] CORWIN, ERASTO Unavailable [address] + [address] [employer] [place] [address] + [place] [address] CORWIN, SHIVANI Unavailable [address] + [place] [address] CORWIN, ERASTO Unavailable [address] + [address] [employer] [facility] [place] [address] + [place] [address] CORWIN, SHIVANI Unavailable [address] + [place] [address] CORWIN, ERASTO Unavailable [address] + [place], [place] [id number] [place] [address] + [place] [address] CORWIN, SHIVANI Unavailable [address] + [place] [address] CORWIN, ERASTO Unavailable [address] + [place], [place] [id number] [place] [address] + [place] [address] CORWIN, SHIVANI Unavailable [address] + [place] [address] CORWIN, ERASTO Unavailable [address] + [place], [place] [id number] [place], [place] [address] + [place] [address] Care Team Providers Name Role Phone BRANDON CANTOR Referring Unavailable OLDER, DELICIA ([facility]) Attending Unavailable BRANDON CANTOR Referring Unavailable OLDER, DELICIA ([facility]) Referring Unavailable OLDER, DELICIA ([facility]) Referring Unavailable OLDER, DELICIA ([facility]) Referring Unavailable OLDER, DELICIA ([facility]) Referring Unavailable OLDER, DELICIA (FOREIGN AGENT) Referring Unavailable OLDER, DELICIA (FOREIGN AGENT) Referring Unavailable OLDER, DELICIA (FOREIGN AGENT) Referring Unavailable CANTORBRANDON JONES H Attending Unavailable BRANDON CANTOR H Referring Unavailable CANTOR, KARTHIK Referring Unavailable CANTOR, KARTHIK Referring Unavailable COLLIN ANDERSON Attending Unavailable OLDER, DELICIA ([facility]) Referring Unavailable CANTORBRANDON JONES H Attending Unavailable ELMA, KARTHIK Referring Unavailable OLDER, DELICIA ([facility]) Attending Unavailable OLDER, DELICIA ([facility]) Referring Unavailable OLDER, DELICIA ([facility]) Attending Unavailable Chino Alvares D.O. Attending Unavailable Lourdes Watson Referring Unavailable Lourdes Watson Attending Unavailable Brandon Cantor Referring Unavailable Desiree Porter Attending Unavailable Lourdes Watson Attending Unavailable Lourdes Watson Referring Unavailable Brandon Cantor Primary Care Unavailable Ian Barragan Attending Unavailable Chino Alvares D.O. Referring Unavailable Brandon Cantor Primary Care Unavailable Akin Fox Attending Unavailable Brandon Cantor Primary Care Unavailable Jopperi, Jaspreet Admitting Unavailable Casarez, Ruslan Consulting Unavailable Paintsil, [place] Attending Unavailable Yung, Ian Consulting Unavailable Jopperi, Jaspreet Attending Unavailable Cantor, Brandon Primary Care Unavailable Jopperi, Jaspreet Admitting Unavailable Koram, Yisel Jennifer Attending Unavailable Cantor, Brandon Primary Care Unavailable Casarez, Ruslan Consulting Unavailable Yung, Ian Consulting Unavailable Koram, Yisel Jennifer Consulting Unavailable Jopperi, Jaspreet Admitting Unavailable Jopperi, [...] Ian Consulting Unavailable Jopperi, Jaspreet Consulting Unavailable Erich, Kenneth Chi Admitting Unavailable Erich, Kenneth Chi Attending Unavailable Cantor, Brandon Primary Care Unavailable Gio Connolly Consulting Unavailable Jopperi, Jaspreet Admitting Unavailable Paintsil, [place] Attending Unavailable Cantor, Brandon Primary Care Unavailable Casarez, Ruslan Consulting Unavailable Yung, Ian Consulting Unavailable Paintsil, [place] Consulting Unavailable Yung, Ian Attending Unavailable Paintsil, [place] Referring Unavailable Watson, Lourdes Attending Unavailable Cantor, Brandon Referring Unavailable Watson, Lourdes Attending Unavailable Watson, Lourdes Referring Unavailable Cantor, Brandon Primary Care Unavailable Jose Armando Rao Attending Unavailable Yisel Lanza Referring Unavailable Mehdi, Darryl Attending Unavailable Ruslan Casarez Referring Unavailable Jayson, Erasto Hearn Attending Unavailable Jayson, Erasto Hearn Referring Unavailable Cantor, Brandon Primary Care Unavailable Mehdi, Darryl Attending Unavailable Watson, Lourdes Referring Unavailable Janas, Collin Attending Unavailable Janas, Collin Referring Unavailable Cantor, Brandon Primary Care Unavailable Watson, Lourdes Attending Unavailable Watson, Lourdes Referring Unavailable Cantor, Brandon Primary Care Unavailable Watson, Lourdes Attending Unavailable Watson, Lourdes Referring Unavailable Cantor, Brandon Primary Care Unavailable Ian Barragan Attending Unavailable Cantor, Brandon Referring Unavailable PROBLEMS PROBLEMS DATE TYPE CONDITION / CODE ATTENDING STATUS SOURCE 06/07/2018 Unknown M54.5 - Low back Fox, Akin Active [place] pain / Community M54.5(ICD-10) Hospital Repository 05/18/2018 Unknown R04.2 - Hemoptysis Shirley, Active [place] / R04.2(ICD-10) [facility] Repository 05/10/2018 Unknown J96.01 - Acute YungIan brown Active [facility] respiratory Community failure with Hospital hypoxia / Repository J96.01(ICD-10) 05/18/2018 Unknown R06.00 - Dyspnea, Ian Barragan Active [place] unspecified / Community R06.00(ICD-10) Hospital Repository 03/27/2018 Unknown S72.001D - Collin Fournier Active [facility] Fracture of Community unspecified part Hospital of neck of right Repository femur, subsequent encounter for closed fracture with routine healing / S72.001D(ICD-10) 01/30/2018 Active Pulmonary NA Active [facility] hypertension, [facility] [place] unspecified / Repository I27.20(ICD-10) 03/05/2018 Unknown R31.9 - Hematuria, Erasto Tyler Active [place] unspecified / M Community R31.9(ICD-10) Hospital Repository 01/31/2018 Unknown I50.30 - Watson, Active [facility] Unspecified [facility] Hospital (congestive) heart Repository failure / I50.30(ICD-10) 01/30/2018 Active Unknown / ELMA, Active [facility] UNK(Unknown) KARTHIK [place] Repository 02/22/2018 Unknown I11.9 - Darryl Harding Active [place] Hypertensive heart Community disease without Hospital heart failure / Repository I11.9(ICD-10) 01/25/2018 Unknown S72.001A - Ian Barragan Active [facility] Fracture of Community unspecified part Hospital of neck of right Repository femur, initial encounter for closed fracture / S72.001A(ICD-10) 01/25/2018 Unknown I27.81 - Cor YungIan brown Active [facility] pulmonale Community (chronic) / Hospital I27.81(ICD-10) Repository 01/25/2018 Unknown W01.0XXA - Fall on Ian Barragan Active [place] same level from Community slipping, tripping Hospital and stumbling Repository without subsequent striking against object, initial encounter / W01.0XXA(ICD-10) 01/25/2018 Unknown E66.9 - Obesity, YungIan brown Active [facility] unspecified / Community E66.9(ICD-10) Hospital Repository 01/25/2018 Unknown I10 - Essential YungIan brown Active [place] (primary) Community hypertension / Hospital I10(ICD-10) Repository 10/19/2017 Active Other forms of NA Active [facility] dyspnea / [place] R06.09(ICD-10) Repository 10/19/2017 Active Abnormal findings NA Active [facility] on diagnostic [place] imaging of other Repository specified body structures / R93.8(ICD-10) 09/14/2017 Active Shortness of NA Active [facility] breath / [place] R06.02(ICD-10) Repository 09/14/2017 Active Personal history NA Active [facility] of nicotine [place] dependence / Repository Z87.891(ICD-10) 09/11/2017 Active 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 is a 73 year old male who presents today for ER follow-up. Facility: [facility] Date of visit: 06/07/18 Reason for visit: severe low back pain after moving furniture a few days before Hospital course: Medicated with a total of 10 mg of Morphine. PT evaluated patient, safe to discharge home Diagnosis: lumbar strain Discharge: Percocet and Valium Current symptoms: Marked improvement in low back pain, is now a numbing kind of pain rated 1-2 out of 10. Still located right low back. No new or worsening symptoms. Denies fever, chills, bowel/bladder incontinence, leg weakness/numbness/tingling. No rashes or itching in area of pain. No dysuria or constipation. REVIEW OF SYSTEMS See HPI PAST MEDICAL HISTORY Diagnosis Date - Acquired [...] Other pulmonary embolism with acute cor pulmonale 01/30/2018 - Panic attacks 2001 previously on Xanax - Seborrheic keratosis 06/19/2009 PAST SURGICAL HISTORY Procedure Laterality Date - COLONOSCOP W/ OR W/O [facility] SPEC 10/01/2014 Colonoscopy - COLONOSCOPY AND [...] has no known allergies. MEDICATIONS rivaroxaban (XARELTO) 20 mg tablet Take 1 tablet by mouth daily with dinner. tamsulosin ER (FLOMAX) 0.4 mg cap LORazepam (ATIVAN) 1 mg tablet Take 1 tablet by mouth at bedtime as needed for Anxiety for up to 180 days. gabapentin (NEURONTIN) 100 mg capsule Take 1 capsule by mouth daily at bedtime for 60 days. hydrocortisone 2.5 % cream Apply 1 application to affected area twice daily. amLODIPine (NORVASC) 10 mg tablet TAKE ONE [...] Emphysema Maternal Grandfather 50 years working on [employer], coal smoke inhalation. - Asthma Maternal Grandfather - Colon Cancer Other Maternal 1st cousin age 40s Social History Substance Use Topics - Smoking status: Former Smoker Packs/day: 2.00 Years: 30.00 Types: Cigarettes Start date: 1964 Quit date: 07/05/1998 - Smokeless tobacco: Never Used - Alcohol use No PHYSICAL EXAM BP 100/80 Pulse 86 Temp 36.8 ?C (98.2 ?F) (Temporal Artery) Resp 16 Wt 93.9 kg (207 lb) SpO2 94% BMI 30.13 kg/m? General Appearance: well appearing, in no acute distress, alert Back: Mild tenderness with palpation of right lumbar paraspinal muscles. Lungs: lungs clear to auscultation. No wheezing, rhonchi, rales Heart: RRR without murmur, gallop, or rubs. No ectopy ASSESSMENT/PLAN: 1. Acute right-sided low back pain without sciatica - ICD9: 724.2, ICD10: M54.5 Lumbosacral sprain - Ice for localized tenderness - Warm moist heat for 20 min three times a day - Advised patient to stop Percocet and Valium, only use for severe pain. Can take Tylenol as needed. - Follow-up as needed if pain persists or worsens Prescription instructions reviewed with patient as applicable. Potential red flag symptoms discussed with the patient. Reviewed appropriate action plan to take if red flag symptoms occur. Patient agreeable to treatment plan. Delicia Quiñonez APRN.CNP CNOV Observed: 06/13/2018 Status: COMPLETED Source: [facility] 3:40 PM [facility] REPOSITORY Office Visit ([facility]) ROHAN OLIVIA JR. ([id number]) 1945 M Date Time Provider Department 06/13/18 3:40 PM DELICIA QUIÑONEZ ([facility]) [facility] During your visit today, we recorded the following information about you: Temperature Pulse Respiration Blood pressure 98.2 degrees 86/minute 16/minute 100/80 Weight 93.9 kg Delicia Quiñonez APRN.CNP 06/14/2018 10:27 AM Signed CC: Patient presents with: [facility] ER Follow up: still having back pain HPI Rohan Alvarenga Corwin is a 73 year old male who presents today for ER follow-up. Facility: [facility] Date of visit: 06/07/18 Reason for visit: severe low back pain after moving furniture a few days before Hospital course: Medicated with a total of 10 mg of Morphine. PT evaluated patient, safe to discharge home Diagnosis: lumbar strain Discharge: Percocet and Valium Current symptoms: Marked improvement in low back pain, is now a numbing kind of pain rated 1-2 out of 10. Still located right low back. No new or worsening symptoms. Denies fever, chills, bowel/bladder incontinence, leg weakness/numbness/tingling. No rashes or itching in area of pain. No dysuria or constipation. REVIEW OF SYSTEMS See HPI PAST MEDICAL HISTORY Diagnosis Date - Acquired [...] Other pulmonary embolism with acute cor pulmonale 01/30/2018 - Panic attacks 2001 previously on [...] has no known allergies. MEDICATIONS rivaroxaban (XARELTO) 20 mg tablet Take 1 tablet by mouth daily with dinner. tamsulosin ER (FLOMAX) 0.4 mg cap LORazepam (ATIVAN) 1 mg tablet Take 1 tablet by mouth at bedtime as needed for Anxiety for up to 180 days. gabapentin (NEURONTIN) 100 mg capsule Take 1 capsule by mouth daily at bedtime for 60 days. hydrocortisone 2.5 % cream Apply 1 application to affected area twice daily. amLODIPine (NORVASC) 10 mg tablet TAKE ONE [...] Emphysema Maternal Grandfather 50 years working on [employer], coal smoke inhalation. - Asthma Maternal Grandfather - Colon Cancer Other Maternal 1st cousin age 40s Social History Substance Use Topics - Smoking status: Former Smoker Packs/day: 2.00 Years: 30.00 Types: Cigarettes Start date: 1964 Quit date: 07/05/1998 - Smokeless tobacco: Never Used - Alcohol use No PHYSICAL EXAM BP 100/80 Pulse 86 Temp 36.8 ?C (98.2 ?F) (Temporal Artery) Resp 16 Wt 93.9 kg (207 lb) SpO2 94% BMI 30.13 kg/m? General Appearance: well appearing, in no acute distress, alert Back: Mild tenderness with palpation of right lumbar paraspinal muscles. Lungs: lungs clear to auscultation. No wheezing, rhonchi, rales Heart: RRR without murmur, gallop, or rubs. No ectopy ASSESSMENT/PLAN: 1. Acute right-sided low back pain without sciatica - ICD9: 724.2, ICD10: M54.5 Lumbosacral sprain - Ice for localized tenderness - Warm moist heat for 20 min three times a day - Advised patient to stop Percocet and Valium, only use for severe pain. Can take Tylenol as needed. - Follow-up as needed if pain persists or worsens Prescription instructions reviewed with patient as applicable. Potential red flag symptoms discussed with the patient. Reviewed appropriate action plan to take if red flag symptoms occur. Patient agreeable to treatment plan. Delicia Quiñonez APRN.FOREIGN AGENT Referring Provider: SELF [[id number]] Allergies As of Date: 06/13/2018 (No Known Allergies) Date Reviewed: 06/13/2018 Reviewed by: Laure Raman Relief Pharmacist - Fully Assessed Reason for Visit: [facility] ER Follow up [Other] Cmt: still having back pain Primary Visit Diagnosis:Lumbar sprain, subsequent encounter [S33.5XXD] Other Visit Diagnosis:Acute right-sided low back pain without sciatica [M54.5] Prescriptions as of 06/13/2018 Sig: RIVAROXABAN 20 MG TABLET Take 1 tablet by mouth daily * TAMSULOSIN 0.4 MG CAPSULE LORAZEPAM 1 MG TABLET Take 1 tablet by mouth at bed* GABAPENTIN 100 MG CAPSULE Take 1 capsule by mouth daily* HYDROCORTISONE 2.5 % TOPICAL * Apply 1 [...] BY M* Problem List As Of Date 06/13/2018 Noted Resolved Hypertension [I10] INVALID FOR* Anxiety [...] hematuria [R31.0] INVALID FOR* Encounter Status:Closed by DELICIA QUIÑONEZ CNP on 06/14/18 EMERGENCY DEPARTMENT Observed: 06/07/2018 Status: F Source: [facility] SUMMARY 1:37 PM [facility] REPOSITORY [facility] Medical Records Department [address] [place] [address] Emergency Department Summary 06/07/18 1330 MR#: [id number] Acct: [id number] Name: ROHAN OLIVIA Rep #: [id number] : 1945 73 From: Akin Fox MD PCP: Brandon Cantor MD Status: REG ER - ER Visit Summary Date of Service: 06/07/18 Chief Complaint: Severe low back History of Present Illness: The patient is a 73 M who presents with severe low back pain. He moved furniture on Monday. He initially took Tylenol with marked improvement. He presents today because of severe pain with no improvement after taking Tylenol. He reports pain with any type of movement. He denies bowel or bladder dysfunction. He denies saddle paresthesia or anesthesia. He denies foot drop. He denies weakness in his quadricep muscles. There is no history of direct trauma or fall. There is a history of congestive heart failure, hypertension, hypercholesterolemia, benign prostatic hypertrophy and pulmonary embolus. Physical Examination: Vital signs noted and blood pressure is elevated 164/73. He appears in discomfort. HEENT exam is unremarkable. Heart is regular without murmur, gallop or rub. Lungs are clear to auscultation. Straight leg test in supine position because patient cannot get out of wheelchair to get on examining cot is negative. EHL intact. Patella and ankle reflex are 2+. Normal sensation. There is no clonus or Babinski sign noted. Test Results: None Emergency Department Course and Treatment: Patient was initially medicated with 6 mg of morphine and 4 mg of Zofran. He was reassessed at 1125. He states he was in significant pain and he was unable to lift his foot off the floor. He received an additional 6 mg of morphine and 2 mg of Valium p.o. Physical therapy eval was placed at 1205. He is now able to ambulate with a walker. He feels safe and comfortable going home. He states he has a walker at home. Treatment Plan: Prescription for Percocet and Valium and appropriate home-going instructions Disposition: Discharged to home with in stable and improved condition Impression: Acute bilateral back pain without sciatica secondary to lifting (strain) This note was generated with [facility] dictation software. It may contain incorrect words, spelling, and punctuation that were not noted in review of the chart prior to signing ED Disposition - Plan for ED Patient: Disposition: Home or Assisted Living Chief Complaint: Back Instructions: ED Sprain Strain Lumbar Prescriptions: Oxycodone HCl/Acetaminophen [Percocet 5/325] 1 tablet PO Q6H PRN PRN 3 Days #12 tablet PRN Reason: Pain Diazepam [Valium] 2 mg PO TID PRN PRN #10 tablet PRN Reason: back spasm Referrals: Brandon Cantor MD [Primary Care Provider] - 3-5 Days if not improving Additional Instructions: Your prescriptions were electronically transmitted to [facility] pharmacy on [facility]. What to do if you have Problems For any increased pain, shortness of breath, bleeding, nausea or vomiting, chest pain, or any unexpected problems, contact your Primary Care Provider. Call [facility] ([phone]) or report to the closest Emergency Room. Call 911 if necessary. 06/07/18 1337 <Electronically signed by Akin Fox MD> Date Akin Fox MD Cosigner Signature (If Indicated): Date CC: Brandon Cantor MD PULMONARY VISIT REPORT Observed: 05/18/2018 Status: F Source: [facility] 3:15 PM [facility] REPOSITORY [facility] Pulmonary Medicine of [address] [place] [address] OFFICE VISIT Date of Service: 05/18/18 MR#: [id number] Acct: [id number] Name: ROHAN OLIVIA Rep #: [id number] : 1945 Provider: Lourdes Watson Age/Sex: 72/M Location[facility] Status: Signed Assessment AND Plan 1. Hemoptysis [...] mg PO DAILY 05/10/18 [History Confirmed 05/18/18] PFSH Medical History Closed right hip fracture [...] Chronicity: acute Pulmonary embolism type: other 05/18/18 1515 <Electronically signed by Lourdes BAKER> Date Lourdes BAKER Cosigner Signature: Date (if applicable) CC: Brandon Cantor MD CHEST PA AND LATERAL Observed: 05/18/2018 Status: F Source: [place] 11:26 AM [facility] REPOSITORY [facility] Imaging Services [address] [place], [place] [address] [address] Chest PA and Lateral MR#: [id number] Acct: [id number] Name: ROHAN OLIVIA Rep #: [id number] : 1945 M 72 From: Henry Olmos MD PCP: Brandon Cantor MD Status: REG CLI Study: Chest PA and Lateral Date of Exam: 05/18/18 Exam# [id number] Ordering Dr: Lourdes Watson STUDY: X-RAY CHEST [...] , CC: Lourdes Watson; Brandon Cantor MD Metal Molder: Signed PULMONARY VISIT REPORT Observed: 05/11/2018 Status: F Source: [place] 6:06 AM [facility] REPOSITORY [facility] Pulmonary Medicine of [address] [place] [address] OFFICE VISIT Date of Service: 05/10/18 MR#: [id number] Acct: [id number] Name: ROHAN OLIVIA Rep #: [id number] : 1945 Provider: Ian Barragan MD Age/Sex: 72/M Location: BMS.PMW Status: Signed Assessment AND Plan Problems 1. 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 Accompanied by: Self Is patient [...] Ian Barragan MD> Date Ian Barragan MD [facility] Signature: Date (if applicable) CC: Brandon Cantor MD PULMONARY FUNCTION Observed: 05/02/2018 Status: F Source: [place] REPORT COMP 5:47 AM [facility] REPOSITORY [facility] Pulmonary Services/Neurology [address] [place] [address] MR#: [id number] Acct: [id number] Name: ROHAN OLIVIA Rep #: [id number] : 1945 72 From: Ian Barragan MD Referring Dr: Lourdes Watson NP Status: REG CLI Ordering Dr: Date: Location: [facility] Sex: M C COMPLETE PULMONARY FUNCTION TEST INTERPRETATION Brief HPI: Patient is a 72 year old male, currently under the care of myself, who presents to [facility] for complete pulmonary function tests secondary to [...] Barragan MD CC: Ian Barragan MD; Lourdes Cantor MD Date Dictated: 05/01/18 1549 Date Transcribed: 05/01/18 1549 Metal Molder: TREVIN Signed 6 MINUTE WALK TEST Observed: 04/24/2018 Status: F Source: [place] 12:35 PM [facility] REPOSITORY [facility] Pulmonary Services/Neurology [address] [place] [address] MR#: [id number] Acct: [id number] Name: ROHAN OLIVIA Rep #: [id number] : 1945 72 From: Chino Alvares DO Referring Dr: Lourdes Watson SIDER Date: Ordering Dr: Sex: M C Location: PSN PSN 6 Minute Walk Test - 6 Minute Walk Test 6 Minute Walk Test: 6 Minute Walk Test PSN:6-Minute Walk Test Start: 04/09/18 09:36 Freq: Status: Active Protocol: RESP.6MINW Document 04/09/18 09:36 SMB (Rec: 04/09/18 09:40 SMB [id number]) 6 Minute Walk Test Date Performed 04/09/18 [...] CC: Date Dictated: 04/09/18 1225 Date Transcribed: 04/09/181224 Metal Molder: Chino Alvares DO Signed ERYTHROCYTE SED RATE Collected: 03/27/2018 Status: F Source: [place] 10:38 AM [facility] REPOSITORY TYPE CODE TESTS RESULT OUT OF RANGE REFERENCE UNITS LAB L102.0000 0-20 mm/hr Normal SED RATE 5 Performed By: #### L101.9900, L100.0100 #### [facility] [address] [place], [place], [address] CBC W/DIFF, AUTOMATED Collected: 03/27/2018 Status: F Source: [place] 10:38 AM [facility] REPOSITORY TYPE CODE TESTS RESULT OUT OF [...] By: #### L101.9900, L100.0100 #### [facility] [address] [facility] [place], [place], [address] CRP Collected: 03/27/2018 Status: F Source: [place] 10:38 AM [facility] REPOSITORY TYPE CODE TESTS RESULT OUT OF RANGE REFERENCE UNITS LAB L501.6710 0.0-3.0 mg/L Normal < 2.90 C-REACTIVE PROT Result Comment: C-Reactive Protein (CRP) provides useful information for the diagnosis, therapy and monitoring of inflammatory processes and associated diseases. For the evaluation of Relative Risk for Cardiovascular Disease, a High Sensitivity CRP (HSCRP) should be ordered. Performed By: #### L501.6710 #### [facility] [address] [facility] [place], [place], [id number] PROGRESS Observed: 03/15/2018 Status: COMPLETED Source: [facility] 10:12 AM [facility] REPOSITORY HNO ID: [id number] Author: Delicia (Santino) Older Service: (none) Author [...] Emphysema Maternal Grandfather 50 years working on [employer], coal smoke inhalation. - Asthma Maternal Grandfather [...] Abs Lymph 1.00 - 4.00 k/uL 1.05 Iberia% % 7.4 Abs [place]beria <0.87 k/uL 0.55 Eosin% % 2.1 Abs [...] suspicious activity was identified. 03/15/2018 by Delicia Quiñnoez APRN.FOREIGN AGENT 3. Constipation, unspecified constipation type - ICD9: [...] Patient agreeable to treatment plan. Delicia Quiñonez APRN.FOREIGN AGENT CNOV Observed: 03/15/2018 Status: COMPLETED Source: [facility] 10:00 AM [facility] REPOSITORY Office Visit (INTMWS) ROHAN OLIVIA JR. ([id number]) 1945 M Date Time Provider Department 03/15/18 10:00 AM DELICIA QUIÑONEZ (SANTINO) INTMWS During your visit today, we recorded the following information about you: Temperature Pulse Respiration Blood pressure 97.9 degrees 85/minute 16/minute 112/66 Weight 90.3 kg Deliciamathew Quiñonez WATER VESSEL CAPTAINELO 03/15/2018 11:31 AM Signed CC: Patient presents [...] Emphysema Maternal Grandfather 50 years working on [employer], coal smoke inhalation. - Asthma Maternal Grandfather [...] Abs Lymph 1.00 - 4.00 k/uL 1.05 [place]ia% % 7.4 Abs [place]beria <0.87 k/uL 0.55 Eosin% % 2.1 Abs [...] activity was identified. 03/15/2018 by Delicia Quiñonez APRN.FOREIGN AGENT 3. Constipation, unspecified constipation type - ICD9: [...] couple weeks. Referring Provider: DELICIA QUIÑONEZ (SANTINO) [[id number]] Allergies As of Date: 03/15/2018 (No Known Allergies) Date Reviewed: 03/15/2018 Reviewed by: Laure Jimenez Relief Pharmacist - Fully Assessed Reason for Visit: F/U [...] capsuleRfl: 1 TSH BLD [SQTSH] Order #: [id number] FUTURE T4 FREE/FREE THYROX [SQFT4] Order #: [id number] FUTURE T3 BLD [SQT3] Order #: [id number] FUTURE Prescriptions as of 03/15/2018 Sig: LORAZEPAM [...] AND DIFFERENTIAL Collected: 03/12/2018 Status: F Source: [facility] [place] 12:42 PM [facility] REPOSITORY TYPE [...] k/uL Abs Lymph 1.05 LAB AMONO % Iberia% 7.4 LAB AAMONO <0.87 k/uL Abs Iberia 0.55 LAB AEOS % Eosin% 2.1 LAB AAEOS <0.46 k/uL Abs Eosin 0.16 LAB ABASO % Baso% 0.9 LAB AABASO <0.11 k/uL Abs Baso 0.07 LAB AUNRBC 0 /100 WBC NRBCs 0.0 LAB ABNRBC <0.01 k/uL Absolute nRBC <0.01 LAB DTYP DTYPE Auto Diff Performed By: #### CBCDIF, CMP #### [facility] [address] [place], [place] [address] COMP METABOLIC PANEL Collected: 03/12/2018 Status: F Source: [facility] [place] 12:42 PM [facility] [place] REPOSITORY TYPE CODE TESTS RESULT OUT OF REFERENCE UNITS RANGE LAB TP 6.3-8.0 g/dL Protein, Total 6.6 LAB ALB 3.9-4.9 g/dL Albumin 4.1 LAB CA 8.5-10.2 mg/dL Calcium, Total 9.6 LAB TBIL 0.2-1.3 mg/dL Bilirubin, Total 0.6 LAB ALKP 38-113 U/L Alkaline Phosphatase 109 LAB AST 14-40 U/L AST 16 LAB GLU 74-99 mg/dL Glucose 94 Result Comment: The [place] Diabetes Association (ADA) provides guidance for cutoff [...] Standards of Medical Care in Diabetes 2016, [place] Diabetes Association. Diabetes Care. 2016.39(Suppl 1). LAB [...] GFR. Performed By: #### CBCDIF, CMP #### [facility] [address] [place], [place] [address] TSH Collected: 03/12/2018 Status: F Source: [facility] 12:42 PM [facility] [place] REPOSITORY TYPE CODE TESTS RESULT OUT OF RANGE REFERENCE UNITS LAB TSH 0.400-5.500 uU/mL Low TSH 0.116 Performed By: #### TSH #### [facility] [address] [place], [place] [address] Observed: 03/05/2018 Status: F Source: [place] CULTURE, URINE 9:40 AM [facility] REPOSITORY Urine Culture ORGANISM 1: Klebsiella oxytoca [place] Count >100,000 Klebsiella oxytoca: REACTION Amoxacillin/Clavulanic Acid [...] (NF) indicates non-formulary drug at [facility]. Approval by Infectious Disease Specialist required before non-formulary drugs may be ordered and/or dispensed. Performed By: #### M100.0650 #### [facility] [address] [place], [address] CNPTOUTREACH Observed: 02/27/2018 Status: COMPLETED Source: [facility] 12:00 AM [facility] REPOSITORY Patient Outreach (INTMWH) ROHAN OLIVIA JR. ([id number]) 1945 M Date Time Provider Department 02/27/18 BRANDON CANTOR [facility] During your visit today, we recorded the following information about you: Allergies As of Date: 02/27/2018 (No Known Allergies) Date Reviewed: 01/30/2018 Reviewed by: Renea Caraballo LPN - Fully Assessed Visit Diagnosis:Medication management [Z79.899] Order(s):TSH BLD [SQTSH] Order #: [id number] FUTURE Prescriptions as of 02/27/2018 Sig: RIVAROXABAN [...] hematuria [R31.0] INVALID FOR* Encounter Status:Closed by LAURIE FERREIRAUSER on 03/30/18 ECHO, COMPLETE W/ Observed: 02/13/2018 Status: F Source: [place] CONTRAST 4:42 PM [facility] REPOSITORY [facility] Cardiovascular Services [address] [place] [address] Echo Complete 02/13/18 1414 MR#: [id number] Acct: [id number] Name: ROHAN OLIVIA Rep #: [id number] : 1945 72 From: Darryl Harding MD Attending Dr: Lourdes Watson SIDER Status: REG CLI Ordering Dr: Lourdes Watson SIDER-C Date: 02/13/18 Location: [facility] Sex: M C Admitted: Reason For Study: [...] Performed By: Gilma Chaudhry, WAGNERCS, RVT 02/13/18 1641 Date Darryl Harding MD CC: Lourdes Watson; Brandon Cantor MD Date Dictated: 02/13/18 1414 Date Transcribed: 02/13/18 164 Metal Molder: Signed PULMONARY VISIT REPORT Observed: 01/31/2018 Status: F Source: [place] 10:02 AM [facility] REPOSITORY Pulmonary Medicine of [place] [address] [place] [address] OFFICE VISIT Date of Service: 01/31/18 MR#: [id number] Acct: [id number] Name: ROHAN OLIVIA Rep #: [id number] : 1945 Provider: Lourdes Watson Age/Sex: 72/M Location: [facility] Status: Signed Assessment AND Plan 1. 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 Provider Action/FYI: ? ? ? Initial contact with patient post discharge, spoke to patient. Patient identified by name and . ? ? ? SUMMARY: -Pt discharged from [facility] on 01/25/18. -Admitted for: fall,fracture right hip,replacement, post op hypoxemia and pulmonary embolism ? Do you have a hospital follow up appointment with your PCP? Appointment on 01/30/18 with pcp. Yes. Remind patient of appointment date, time, and location. If not within 14 calendar days of discharge - please reschedule accordingly. Pt says is seeing ortho 01/29/18 He has physical therapy arranged at [facility]. He is seeing Dr. Connolly 02/01/18. At [...] catheter. He was doing physical therapy at [facility]. He was scheduled to see pulmonary [...] MD CNOV Observed: 01/30/2018 Status: COMPLETED Source: [place] 4:40 PM [facility] REPOSITORY Office Visit (INTMWS) ROHAN OLIVIA JR. ([id number]) 1945 M Date Time Provider Department 01/30/18 [...] LPN TRANSITION CARE MANAGEMENT (TCM) INITIAL CONTACT Chief Librarian Branch Outreach ? Provider Action/FYI: ? ? ? Initial contact with patient post discharge, spoke to patient. Patient identified by name and . ? ? ? SUMMARY: -Pt discharged from [facility] on 01/25/18. -Admitted for: fall,fracture right hip,replacement, post op hypoxemia and pulmonary embolism ? Do you have a hospital follow up appointment with your PCP? Appointment on 01/30/18 with pcp. Yes. Remind patient of appointment date, time, and location. If not within 14 calendar days of discharge - please reschedule accordingly. Pt says is seeing ortho 01/29/18 He has physical therapy arranged at [facility]. He is seeing Dr. Connolly 02/01/18. [...] catheter. He was doing physical therapy at [facility]. He was scheduled to see pulmonary [...] LPN - Fully Assessed Reason for Visit: [facility] f/u [Other] Primary Visit Diagnosis:Other acute pulmonary embolism with acute cor pulmonale (HCC) [I26.09] Other Visit Diagnoses:Pulmonary hypertension (HCC) [I27.20] Essential hypertension [I10] BPH with obstruction/lower urinary tract symptoms [N40.1, N13.8] Gross hematuria [R31.0] S/P hip replacement, right [Z96.641] Order(s):CBC + DIFF [SQCBCDIF] Order #: [id number] FUTURE COMP METABOLIC PANEL [SQCMP] Order #: [id number] FUTURE Prescriptions as of 01/30/2018 Sig: RIVAROXABAN [...] taking. RIVAROXABAN 20 MG TABLET >> Renea Caraballo LPN 01/30/2018 4:58 PM >> RENEA CARABALLO LPN MonJan 30, 2018 4:58 PM Held, until [...] 01/30/18 CNCO Observed: 01/30/2018 Status: COMPLETED Source: [facility] 12:00 AM [facility] REPOSITORY Letter Text Rohan Olivia [address] [place] [address] 01/30/2018 [facility] #: [id number] Dear , Due to a change in [...] for you, please contact our office at [phone]. Thank you for choosing the [facility] as your Healthcare Provider . Sincerely, Internal Medicine Appointment Office BASIC METABOLIC Collected: 01/25/2018 Status: F Source: [place] PROFILE (BMP) 5:30 AM [facility] REPOSITORY TYPE CODE TESTS RESULT OUT OF [...] Performed By: #### L500.2500 #### [facility] [address] [place], [place], [address] CBC W/DIFF, AUTOMATED Collected: 01/25/2018 Status: F Source: [place] 5:30 AM [facility] REPOSITORY TYPE CODE TESTS RESULT OUT OF [...] Performed By: #### L100.0100 #### [facility] [address] [place], [address] 12 LEAD ELECTROCARDIOGRAM Observed: 01/23/2018 Status: F Source: [place] 3:02 PM [facility] REPOSITORY [facility] Cardiovascular Services [address] [place] [address] 12 Lead EKG 01/12/18 0452 MR#: [id number] Acct: [id number] Name: ROHAN OLIVIA Rep #: [id number] : 1945 72 From: Darryl Harding MD Attending Dr: Ewa Norman MD Status: DIS IN Ordering Dr: Ruslan Casarez MD Date: 01/12/18 Location: [facility] Sex: M C Admitted: 01/11/18 Test Reason : PRE-OP Blood Pressure : / mmHG Vent. Rate : 082 BPM Atrial Rate : 082 BPM P-R Int : 198 ms QRS Dur : 106 ms QT Int : 378 ms P-R-T Axes : 035 -12 044 degrees QTc Int : 441 ms Normal sinus rhythm Normal ECG No previous ECGs available Confirmed by MEHDI DIMAS, DARRYL ([id number]), fashion editor KARL CASAREZ ([id number]) on 01/23/2018 3:01:10 PM Referred By: RUSLAN CASAREZ Confirmed By:DARRYL HARDING MD 01/23/18 1501 Date Darryl Harding MD CC: Ewa Norman MD; Ruslan Casarez MD; Brandon Cantor MD Signed DISCHARGE SUMMARY Observed: 01/23/2018 Status: F Source: [place] 8:04 AM [facility] REPOSITORY [facility] Medical Records Department [address] [place] [address] Discharge Summary 01/22/182135 MR#: [id number] Acct: [id number] Name: ROHAN OLIVIA Rep #: [id number] : 1945 72 From: Kenneth Jung MD PCP: Brandon Cantor MD Status: ADM IN Y Location: [place] [address]-1 ADDENDUM by Kenneth Jung MD on 01/23/18 [...] PO BIDCM #22 tab Primary Care Physician: Brnadon Cantor MD [Primary Care Provider] - Please [...] Signed CONSULTATION Observed: 01/23/2018 Status: F Source: [place] 8:04 AM [facility] REPOSITORY [facility] Medical Records Department [address] [place] [address] Consultation 01/23/18 0801 MR#: [id number] Acct: [id number] Name: ROHAN OLIVIA Rep #: [id number] : 1945 72 From: Gio Connolly MD PCP: Brandon Cantor MD Status: ADM IN Location: [place] [address] Reason for Consult Date of Consultation: 01/23/18 [...] with lidocaine jelly and use a [address] a catheter and got clear [...] Problems (Last Updated 01/11/18 @ 18:02 by YOBANY Davis Closed right hip fracture (Acute) Acute respiratory [...] DISCHARGE INSTRUCTION Observed: 01/23/2018 Status: F Source: [place] 8:03 AM [facility] Medical Records Department [address] [place] [address] Instructions for Home/Discharge Instructions 01/22/18 2134 MR#: [id number] Acct: [id number] Name: ROHAN OLIVIA Rep #: [id number] : 1945 72 From: Kenneth Jung MD [...] When: 2 weeks. Proposed Discharge Date: 01/25/18 01/22/182135 <Electronically signed by Kenneth Jung MD> Date Kenneth Jung MD CC: Gio Connolly MD; Brandon Cantor MD URINALYSIS, COMPLETE Collected: 01/22/2018 Status: F Source: [place] 6:55 PM [facility] REPOSITORY Order Comment: Order Date: 01/22/18 How [...] Performed By: #### L400.0001 #### [facility] [address] [place], [address] Observed: 01/22/2018 Status: F Source: [place] CULTURE, URINE 6:55 PM [facility] Order Date: 01/22/18 Urine Culture Culture exhibits no growth. Performed By: #### M100.0650 #### [facility] [address] [place], [address] EMERGENCY DEPARTMENT Observed: 01/18/2018 Status: F Source: [place] SUMMARY 4:32 PM [facility] REPOSITORY [facility] Medical Records Department [address] [place] [address] Emergency Department Summary 01/11/18 1426 MR#: [id number] Acct: [id number] Name: ROHAN OLIVIA Rep #: [id number] : 1945 72 From: Leah Alicea MD [...] labs generally unremarkable spoke with Dr. Casarez epoxy fabrication supervisor for Ortho spoke with the hospitalist he will be admitted for further management explained all the above to the patient Treatment Plan: [] Disposition: [] Admit stable Impression: [] Impacted fracture right hip, fall history of chronic hypoxemia This note was generated with [facility] dictation software. It may contain incorrect words, [...] your Primary Care Provider. Call [facility] ([phone]) or report to the closest Emergency Room. Call 911 if necessary. 01/18/18 1632 <Electronically signed by Leah Alicea MD> Date Leah Alicea MD Cosigner Signature (If Indicated): Date CC: Brandon Cantor MD DISCHARGE SUMMARY Observed: 01/18/2018 Status: F Source: [place] 3:33 PM [facility] REPOSITORY [facility] Medical Records Department [address] [place] [address] Discharge Summary 01/16/18 1223 MR#: [id number] Acct: [id number] Name: ROHAN OLIVIA Rep #: [id number] : 1945 72 From: Jaspreet Gamez DO PCP: Brandon Cantor MD Status: DIS IN Y Location: [place] [address]1 ADDENDUM by Ewa Norman MD on 01/18/18 [...] Javier Granger DO at 22:00 EDT Tel [phone], Service support , Chest CTA 01/12/18 12:27 [...] EDT Tel , Service support , Robert Magana Giorgio Barragan Operations: total hip replacement Procedures: 2-D Echocardiogram [...] Days #18 tab PRN Reason: Mod-Severe Pain (4-03/14) Primary Care Physician: Brandon Cantor MD [Primary Care Provider] - Within 2 Weeks Please Follow Up With: [facility] When: call for appointment. Follow in 1-2 weeks. Please Follow Up With: Ian Barragan MD When: 2-4 weeks Disposition: Alf facility Minutes spent on discharge:: 40 Patient Condition:: Good Medical Necessity - Tobacco Use Smoking Status: Former smoker Tobacco Use: Cigarettes Meaningful Use Info Meaningful Use Diagnoses (Choose all that apply): None applicable Code Visit Inpatient E AND M: 91597 Disch Hosp 01/16/18 1226 <Electronically signed by Jaspreet Gamez DO> Date Jaspreet Gamez DO Cosigner Signature (if applicable): Date CC: wEa Norman MD; Jaspreet Gamez DO; Brandon Cantor MD Signed HISTORY AND PHYSICAL Observed: 01/18/2018 Status: F Source: [place] EXAM 8:50 AM [facility] REPOSITORY [facility] Medical Records Department [address] [place] [address] History and Physical 01/18/18 0130 MR#: [id number] Acct: [id number] Name: ROHAN OLIVIA Rep #: [id number] : 1945 72 From: Kenneth Jung MD PCP: Brandon Cantor MD Status: ADM IN Y Location: [place] [address] Problem List (1) Fall Status: Acute (2) [...] with below past medical history presented to [facility] Emergency Department 01/11/2018 with fall, right [...] Collected: 01/18/2018 Status: F Source: [place] PROFILE (BMP) 5:27 AM [facility] REPOSITORY TYPE CODE TESTS RESULT OUT OF [...] Performed By: #### L500.2500 #### [facility] [address] [place], [address] CBC W/DIFF, AUTOMATED Collected: 01/18/2018 Status: F Source: [place] 5:27 AM [facility] REPOSITORY TYPE CODE TESTS RESULT OUT OF [...] Performed By: #### L100.0100 #### [facility] [address] [place], [address] TRANSFER TO [facility] Observed: 01/16/2018 Status: F Source: [facility] 12:22 PM [facility] REPOSITORY [facility] Medical Records Department [address] [place] [address] Transfer to [facility] Care MR#: [id number] Acct: [id number] Name: ROHAN OLIVIA Rep #: [id number] : 1945 72 From: Jaspreet Gamez DO PCP: Brandon Cantor MD Status: ADM IN ROHAN OLIVIA (Patient) (Health Ins. Claim No.) (Day of Discharge to Facility) Certification of patient admission REQUIRED AT TIME OF ADMISSION. I CERTIFY THAT POST-HOSPITAL ECF SERVICES ARE REQUIRED TO BE GIVEN ON AN IN-PATIENT BASIS BECAUSE OF THE ABOVE NAMED PATIENT'S NEED FOR SHELTER CARE ON A CONTINUING BASIS FOR THE [...] F Source: [place] PROFILE (BMP) 6:45 AM [facility] REPOSITORY TYPE CODE TESTS RESULT OUT OF [...] Performed By: #### L500.2500 #### [facility] [address] [place], [address] VENOUS DUPLEX LOWER Observed: 01/15/2018 Status: F Source: [place] EXTREMITY 4:24 PM [facility] REPOSITORY [facility] Cardiovascular Services [address] [place] [address] Venous Duplex US - Trip Extrem 01/15/18 0952 MR#: [id number] Acct: [id number] Name: ROHAN OLIVIA Rep #: [id number] : 1945 72 From: Amador Xiao MD Attending Dr: Jaspreet Gamez DO Status: ADM IN Ordering Dr: Chino Alvares DO Date: 01/15/18 Location: [facility] Sex: M C Admitted: 01/11/18 Reason For [...] preliminary report was called and/or faxed to [facility]. Interpretation Summary Deep veins of the [...] MD Date Dictated: 01/15/18 0952 Date Transcribed: 01/15/181622 Metal Molder: Signed BASIC METABOLIC Collected: 01/15/2018 Status: F Source: [place] PROFILE ([facility]) 4:34 AM [facility] REPOSITORY TYPE CODE TESTS RESULT OUT OF [...] Performed By: #### L500.2500 #### [facility] [address] [place], [place], [address] CBC-COMPLETE BLOOD CNT Collected: 01/15/2018 Status: F Source: [place] NO DIFF 4:34 AM [facility] REPOSITORY TYPE CODE TESTS RESULT OUT OF [...] Performed By: #### L100.0500 #### [facility] [address] [place], [place], [address] CBC-COMPLETE BLOOD CNT Collected: 01/14/2018 Status: F Source: [place] NO DIFF 4:30 AM [facility] REPOSITORY TYPE CODE TESTS RESULT OUT OF [...] Performed By: #### L100.0500 #### [facility] [address] [place], [place], [address] PARTIAL THROMBOPLAST Collected: 01/14/2018 Status: F Source: [place] TIME 4:30 AM [facility] REPOSITORY TYPE CODE TESTS RESULT OUT OF REFERENCE UNITS RANGE LAB L300.4310 24.1-36.2 Seconds High PTT 45.0 Performed By: #### L300.4310 #### [facility] [address] [place], [address] BASIC METABOLIC Collected: 01/14/2018 Status: F Source: [place] PROFILE (BMP) 4:30 AM [facility] REPOSITORY TYPE CODE TESTS RESULT OUT OF [...] Performed By: #### L500.2500 #### [facility] [address], [place], [id number] PARTIAL THROMBOPLAST Collected: 01/13/2018 Status: F Source: [place] TIME 10:15 PM [facility] REPOSITORY TYPE CODE TESTS RESULT OUT OF REFERENCE UNITS RANGE LAB L300.4310 24.1-36.2 Seconds High PTT 71.1 Performed By: #### L300.4310 #### [facility] [address], [place], [address] PARTIAL THROMBOPLAST Collected: 01/13/2018 Status: F Source: [place] TIME 4:20 PM [facility] REPOSITORY TYPE CODE TESTS RESULT OUT OF REFERENCE UNITS RANGE LAB L300.4310 24.1-36.2 Seconds High PTT 56.0 Performed By: #### L300.4310 #### [facility] [address], [place], [id number] PROTHROMBIN TIME W/INR Collected: 01/13/2018 Status: F Source: [place] 8:40 AM [facility] REPOSITORY TYPE CODE TESTS RESULT OUT OF RANGE REFERENCE UNITS LAB L300.4150 11.7-14.9 SECONDS High PROTIME 15.5 LAB L300.4200 Normal INR 1.2 Performed By: #### L300.3900, L300.4310 #### [facility] [address] [place], [place], [address] PARTIAL THROMBOPLAST Collected: 01/13/2018 Status: F Source: [place] TIME 8:40 AM [facility] REPOSITORY TYPE CODE TESTS RESULT OUT OF RANGE REFERENCE UNITS LAB L300.4310 24.1-36.2 Seconds Normal PTT 33.7 Performed By: #### L300.3900, L300.4310 #### [facility] [address] [place], [address] CBC-COMPLETE BLOOD CNT Collected: 01/13/2018 Status: F Source: [place] NO DIFF 5:40 AM [facility] REPOSITORY TYPE CODE TESTS RESULT OUT OF [...] Performed By: #### L100.0500 #### [facility] [address] [place], [place], [address] BASIC METABOLIC Collected: 01/13/2018 Status: F Source: L[place]UBOV PROFILE (BMP) 5:40 AM [facility] REPOSITORY TYPE CODE TESTS RESULT OUT OF [...] Performed By: #### L500.2500 #### [facility] [address] [place], [place], [id number] PHOSPHORUS Collected: 01/13/2018 Status: F Source: [place] 5:40 AM [facility] REPOSITORY TYPE CODE TESTS RESULT OUT OF RANGE REFERENCE UNITS LAB L501.2300 2.5-4.9 mg/dL Low PHOS 2.4 Performed By: #### L501.2300, L501.5200 #### [facility] [address] [place], [address] MAGNESIUM Collected: 01/13/2018 Status: F Source: [place] 5:40 AM [facility] REPOSITORY TYPE CODE TESTS RESULT OUT OF RANGE REFERENCE UNITS LAB L501.5200 1.6-2.6 mg/dL Normal MG 1.7 Performed By: #### L501.2300, L501.5200 #### [facility] [address] [place], [address] CONSULTATION Observed: 01/13/2018 Status: F Source: [place] 5:38 AM [facility] REPOSITORY [facility] Medical Records Department [address] [place] [address] Consultation 01/12/18 0956 MR#: [id number] Acct: [id number] Name: ROHAN OLIVIA Rep #: [id number] : 1945 72 From: Ian Barragan MD PCP: Brandon Cantor MD Status: ADM IN Y Location: ICU ICU-1 Problem List (1) Acute respiratory failure with [...] listed below, who presented to [facility] on 01/11/2018 with acute hip pain following [...] been seen by Dr. Anderson at the [facility] and reportedly received a full workup as recently as December. Patient states that he was told that his pulmonary function tests were normal except for his obesity. Patient has never required supplemental oxygen previously. Patient denies any history of DVT or PE. Patient does not believe a loss of consciousness led to his mechanical fall. Patient works at [employer] and estimates that he walks 1-2 miles [...] (Auto) Neut % (Auto) Lymph % (Auto) [place] % (Auto) Clinical Impression(s) from Imaging Studies Hip/Pelvis X-Ray 01/11/18 14:57 IMPRESSION: Right proximal femoral subcapital acute fracture as described. Fairly severe degenerative left hip as described. Electronically Signed: William Jacques, at 16:19 EDT Tel , Service support , Chest X-Ray 01/11/18 21:00 IMPRESSION: Diffuse pulmonary interstitial prominence. Electronically Signed: Javier Granger DO at 22:00 EDT Tel [phone], Service support , Assessment/Plan All Active Problems (Last Updated 01/11/18 @ 18:02 by Jaspreet Gamez DO) Closed right hip fracture (Acute) Acute respiratory failure with hypoxia (Acute) RECOMMENDATIONS: 1. Surgical intervention with conscious sedation and spinal possible 2. Observation in intensive care unit following intervention 3. Obtain CTA of chest once stabilized postoperatively 4. PT/OT evaluations 5. Obtain old records from [facility] IMPRESSIONS: 1. Acute hypoxic respiratory failure Unclear etiology at this time. Patient did present with significant hypertension and may have an element of flash pulmonary edema from diastolic congestive heart failure. Patient does have a smoking history in the past, but reportedly has normal pulmonary function testing. Patient does have an elevated hemoglobin and clubbing on exam indicating that hypoxemia may be fci. Will obtain old records from [facility] for confirmation. Patient has had a [...] overnight. Code Visit Inpatient Keith AND M: 50409 Init Hosp L3 01/13/18 0538 <Electronically signed by Ian Barragan MD> Date Ian Barragan MD Cosigner Signature (if applicable): Date CC: Ian Barragan MD; Ruslan Casarez MD; Brandon Cantor MD Signed ECHOCARDIOGRAM COMPLETE Observed: 01/12/2018 Status: F Source: [place] 4:42 PM [facility] REPOSITORY [facility] Cardiovascular Services [address] [place] [address] Echo Complete 01/12/18 1451 MR#: [id number] Acct: [id number] Name: ROHAN OLIVIA Rep #: [id number] : 1945 72 From: Jose Armando Rao [...] Referring Physician: Brandon Cantor Performed By: Jenniffer Wood, TONY, RVT 01/12/181640 Date Jose Armando Rao MD CC: Ian Barragan MD; Yisel Lanza MD; Brandon Cantor MD Date Dictated: 01/12/18 1451 Date Transcribed: 01/12/181640 Metal Molder: Signed CTA CHEST W/WO Observed: 01/12/2018 Status: F Source: [place] CONTRAST 12:28 PM [facility] REPOSITORY [facility] Imaging Services [address] [place] [address] CTA Chest W/WO Contrast MR#: [id number] Acct: [id number] Name: ROHAN OLIVIA Rep #: [id number] : 1945 M 72 From: Jabari Jackson MD PCP: Brandon Cantor MD Status: ADM IN Study: CTA Chest W/WO Contrast Date of Exam: 01/12/18 Exam# [id number] Ordering Dr: Ian Barragan MD STUDY: CTA [...] CC: Ian Barragan MD; Brandon Cantor MD Metal Molder: Jong Lemus STAPH AUREUS Collected: 01/12/2018 Status: F Source: [place] DNA BY PCR 11:05 AM [facility] REPOSITORY TYPE CODE TESTS RESULT OUT OF RANGE REFERENCE UNITS LAB L8200.1100 Negative Normal MRSA Negative RESULT Performed By: #### L8200.1000 #### [facility] [address] [place], [address] OPERATIVE REPORT Observed: 01/12/2018 Status: F Source: [place] 10:28 AM [facility] REPOSITORY [facility] Medical Records Department [address] [place] [address] Operative Report 01/12/18 1025 MR#: [id number] Acct: [id number] Name: ROHAN OLIVIA Rep #: [id number] : 1945 72 From: Robert Marie DO PCP: Brandon Cantor MD Status: ADM IN Y Location: ICU [place] [address] Report of Operation Date of Procedure: 01/12/18 Pre-Operative Diagnosis: Impacted right femoral neck fracture Post-Operative Diagnosis: Same Surgery/Procedure Performed:: Total hip arthroplasty right Description of Surgical Findings:: Transcervical femoral neck fracture english as a second language teacher: Collin Fournier Type of Anesthesia:: Spinal Anesthesiologist: Jaspreet Connell Special Medications: txa Specimen's removed: Bone and soft tissue Estimated Blood Loss (mL): 100 Fluids Replaced: See anesthesia report Description of Procedure: Implants: Linda Accolade 2 size 6 127 valgus with [...] and minimus was performed with #1 Vicryl [id number] type fashion followed by closure of the [...] weeks of the gluteal musculature heals. Physician regulatory assistant was integral in all portions of this procedure. They assisted with positioning the patient, draping the extremity, holding retractors, closing the wound, and applying the dressing. This was all done under my direct supervision. The physician regulatory assistant was essential for a successful, efficient surgery. - Admit VTE Documentation VTE Present on Admission: Yes VTE Mechan Device Prophylaxis: SCD's, Thigh High HARSHIL Hose VTE Pharm Prophylaxis ordered?: Yes 01/12/18 1028 <Electronically signed by Robert Marie DO> Date Robert Marie DO CC: Ian Barragan MD; Robert Marie DO; Ruslan Casarez MD; Brandon Cantor MD Signed HIP MIN 2 VIEWS Observed: 01/12/2018 Status: F Source: [place] (PORTABLE) 9:34 AM [facility] REPOSITORY [facility] Imaging Services [facility] [place] [address] Hip Min 2 Views (Portable) MR#: [id number] Acct: [id number] Name: ROHAN OLIVIA Rep #: [id number] : 1945 M 72 From: Jabari Jackson MD PCP: Brandon Cantor MD Status: ADM IN Study: Hip Min 2 Views (Portable) Date of Exam: 01/12/18 Exam# [id number] Ordering Dr: Robert Marie DO STUDY: X-RAY [...] CC: Robert Marie DO; Brandon Cantor MD Metal Molder: Signed CBC W/DIFF, AUTOMATED Collected: 01/12/2018 Status: F Source: [place] 5:08 AM [facility] REPOSITORY TYPE CODE TESTS RESULT OUT OF [...] Performed By: #### L100.0100 #### [facility] [address] [place], [place], [address] BASIC METABOLIC Collected: 01/12/2018 Status: F Source: [place] PROFILE ([facility]) 5:08 AM [facility] REPOSITORY TYPE CODE TESTS RESULT OUT OF [...] Performed By: #### L500.2500 #### [facility] [address] [place], [place], [address] TYPE AND SCREEN Collected: 01/12/2018 Status: F Source: [place] 5:08 AM [facility] REPOSITORY Order Comment: Reason for Type AND Screen/Red Cells: SURGERY Surgery Date: 01/12/18 Type of Surgery: FRACTURED HIP TYPE CODE TESTS RESULT OUT OF RANGE REFERENCE UNITS LAB B10.0800 A Normal BLOOD TYPE GEL POSITIVE LAB B100.4000 Normal Antibody NEGATIVE Screen Performed By: #### B101.7450 #### [facility] [address] [facility] [place], [place], [address] VITAMIN D,25 HYDROXY Collected: 01/12/2018 Status: F Source: [place] 5:08 AM [facility] REPOSITORY TYPE CODE TESTS RESULT OUT OF REFERENCE UNITS RANGE LAB L506.1000 29.95-100.01 ng/mL Low Vitamin D 19.4 25-OH Result Comment: Vitamin D 25(OH) Status Range Deficiency <20 ng/mL (50nmol/L) Insuffciency 20 - 30 ng/mL (50 - 75 nmol/L) Sufficiency 30 - 100 ng/mL (75 - 250 nmol/L) Toxicity >100 ng/mL (>250 nmol/L) Performed By: #### L506.1000 #### [facility] [address] [place], [place], [address] CONSULTATION Observed: 01/11/2018 Status: F Source: [place] 8:53 PM [facility] REPOSITORY [facility] Medical Records Department [address] [place] [address] Consultation 01/11/182042 MR#: [id number] Acct: [id number] Name: ROHAN OLIVIA Rep #: [id number] : 1945 72 From: Ruslan Casarez MD PCP: Brandon Cantor MD Status: ADM IN Y Location: SD3 OA446-9 Reason for Consult Date of Consultation: 01/11/18 [...] pulmonary workup that was negative at the [facility]. He did quit smoking 20 years ago. Patient currently works full-time at [employer], on his feet 8 hours a day [...] 1 VIEW Observed: 01/11/2018 Status: F Source: [place] (PORTABLE) 8:28 PM [facility] REPOSITORY [facility] Imaging Services [address] [place] [address] Chest 1 View (Portable) MR#: [id number] Acct: [id number] Name: CORWINROHAN W Rep #: [id number] : 1945 M 72 From: Javier Granger DO PCP: Brandon Cantor MD Status: ADM IN Study: Chest 1 View (Portable) Date of Exam: 01/11/18 Exam# [id number] Ordering Dr: Ruslan Casarez MD STUDY: X-RAY [...] Javier Granger DO at 22:00 EDT Tel [phone], Service support , CC: Ruslan Casarez MD; Brandon Cantor MD Metal Molder: Signed HISTORY AND PHYSICAL Observed: 01/11/2018 Status: F Source: [place] EXAM 6:11 PM [facility] REPOSITORY [facility] Medical Records Department [address] [place] [address] History and Physical 01/11/18 1759 MR#: [id number] Acct: [id number] Name: ROHAN OLIVIA Rep #: [id number] : 1945 72 From: Jaspreet Gamez DO [...] orthopedics. Code Visit Inpatient E AND M: 26719 Init Hosp L3 01/11/18 1811 <Electronically signed by Jaspreet Gamez DO> Date Jaspreet Gamez DO Cosigner Signature: Date (if applicable) CC: Jaspreet Gamez DO; Brandon Cantor MD Signed BASIC METABOLIC Collected: 01/11/2018 Status: F Source: [place] PROFILE (BMP) 2:31 PM [facility] REPOSITORY TYPE CODE TESTS RESULT OUT OF [...] Performed By: #### L500.2500 #### [facility] [address] [place], [place], [address] CBC W/DIFF, AUTOMATED Collected: 01/11/2018 Status: F Source: [place] 2:31 PM [facility] REPOSITORY TYPE CODE TESTS RESULT OUT OF RANGE REFERENCE UNITS LAB L100.1000 4.4-11.0 K/mm3 Normal WBC 6.2 LAB L100.1200 4.6-6.2 M/mm3 Normal RBC 5.66 LAB L100.1300 13.0-16.5 g/dl High alert HGB 18.0 Result Comment: CRITICAL VALUE VERIFIED. CALLED TO SHEELA ZEE 01/11/18 Rodolfo8 Mark Aranda. RESULTS READ BACK BY SAME. [...] Performed By: #### L100.0100 #### [facility] [address] [place], [address] HIP, UNI W/ PELVIS Observed: 01/11/2018 Status: F Source: [place] 2-3 VIEWS 2:25 PM [facility] REPOSITORY [facility] Imaging Services [address] [place] [address] HIP, UNI W/ Pelvis 2-3 Views MR#: [id number] Acct: [id number] Name: ROHAN OLIVIA Rep #: [id number] : 1945 M 72 From: William Jacques MD PCP: Brandon Cantor MD Status: REG ER Study: HIP, UNI W/ Pelvis 2-3 Views Date of Exam: 01/11/18 Exam# [id number] Ordering Dr: Leah Alicea MD STUDY: X-RAY [...] CC: MD Ying Alicea; Brandon Cantor MD Metal Molder: Signed PROGRESS Observed: 12/14/2017 Status: COMPLETED Source: [facility] 11:04 AM [facility] REPOSITORY HNO ID: [id number] Author: Collin Justin Service: (none) Author Type: Physician Type: Progress Notes Filed: 12/23/2017 4:43 PM Note Text: [facility] [place] Consultation Note, 12/14/2017: Introduction: The patient is seen in consultation today for evaluation of abnormal CXR done to investigate complaint of dyspnea on exertion. This consultation is requested by Brandon Cantor MD. A copy of this encounter will be made available as a report via [employer] electronic medical record to providers with access [...] Emphysema Maternal Grandfather 50 years working on [employer], coal smoke inhalation. 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 Social History Main Topics Smoking status: Former [...] acceptance of my answers. Collin Anderson MD, [facility] [place] [facility] [address] [place] [address] P: [phone] F: [phone] [email or web address] Observed: 12/14/2017 Status: COMPLETED Source: [facility] 10:30 AM [facility] REPOSITORY Office Visit (PULMWS) ROHAN OLIVIA JR. ([id number]) 1945 M Date Time Provider Department 12/14/17 10:30 AM COLLIN ANDERSON During your visit today, we recorded the following information about you: Pulse Respiration Blood pressure Weight 71/minute 19/minute 112/62 99.3 kg Height 1.765 m Colleen Colin LPN 12/14/2017 10:55 AM Attested Attestation signed by [...] GI: denies heartburn. denies dysphagia. denies diarrhea. Uro/SPONGE DIVER: denies dysuria. denies hesitancy. denies nocturia. Menses: N/A Musculoskeletal: notes knee and hand pain. Neuro: denies headache, denies focal weakness. denies tremor. Skin: notes rash on the left and right ankle and foot- follows dermatology at [facility]. Otherwise negative. Collin Anderson MD 12/23/2017 4:43 PM Signed [facility] [place] Consultation Note, 12/14/2017: Introduction: The patient is seen in consultation today for evaluation of abnormal CXR done to investigate complaint of dyspnea on exertion. This consultation is requested by Brandon Cantor MD. 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 Social History Main Topics Smoking status: Former [...] acceptance of my answers. Collin Anderson MD, [facility] [place] [address] P: [phone] F: [phone] [email or web address] Collin Anderson MD 12/14/2017 11:42 AM Signed [...] May 2018 calendar to call Pulmonary Clinic [phone] and schedule appointment for . repeat Pulmonary Function Testing and visit in September 2018. There is no CXR evidence of mesothelioma. Collin Anderson MD, [facility] [address] [address] P: [phone] F: [phone] [email or web address] Referring Provider: DELICIA QUIÑONEZ (SANTINO) [[id number]] Allergies As of Date: 12/14/2017 (No Known Allergies) Date Reviewed: 12/14/2017 Reviewed by: Collin Anderson - Fully Assessed Reason for Visit: Consult [502] Cmt: Delicia Quiñonez CNP, shortness of breath, abnormal CXR. Reason For Visit History Recorded Primary Visit Diagnosis:Abnormal CXR [R93.8] Order(s):SPIROMETRY BASELINE ONLY [7226400] Order #: [id number] FUTURE Prescriptions as of 12/14/2017 Sig: LORAZEPAM [...] May 2018 calendar to call Pulmonary Clinic [phone] and schedule appointment for . repeat Pulmonary Function Testing and visit in September 2018. There is no CXR evidence of mesothelioma. Collin Anderson MD, [facility] [place] [facility] and Amb[facility] [address] [address] P: [phone] F: [phone] [email or web address] Visit Notes: >> Colleen Colin LPN Allegra Dec 14, 2017 10:35 AM Status: Attested ROS: General: Generally feels well. Appetite good. Eyes, Ears, nose, throat: denies post nasal drip. denies rhinorrhea. denies purulent nasal discharge. denies epistaxis. denies hoarseness. Vision stable. Cardiac: denies angina, denies edema, denies orthopnea. GI: denies heartburn. denies dysphagia. denies diarrhea. Uro/SPONGE DIVER: denies dysuria. denies hesitancy. denies nocturia. Menses: N/A Musculoskeletal: notes knee and hand pain. Neuro: denies headache, denies focal weakness. denies tremor. Skin: notes rash on the left and right ankle and foot- follows dermatology at [facility]. Otherwise negative. Follow-up and Disposition History Recorded Encounter Status:Closed by COLLIN ANDERSON MD on 12/23/17 CBC Collected: 10/19/2017 Status: F Source: [facility] 9:30 AM [facility] REPOSITORY TYPE CODE TESTS RESULT [...] <0.01 Performed By: #### CBC, NTBNP #### [facility] [address] [place], [place] [address] NT PRO BNP Collected: 10/19/2017 Status: F Source: [facility] 9:30 AM [facility] REPOSITORY TYPE CODE TESTS RESULT OUT OF REFERENCE UNITS RANGE LAB PBNP <125 pg/mL PRO B Natr <50 Peptide Performed By: #### CBC, NTBNP #### [facility] [address] [place], [place] [address] PROGRESS Observed: 10/19/2017 Status: COMPLETED Source: [facility] 9:24 AM [facility] REPOSITORY HNO ID: [id number] Author: Brandon Cantor Service: (none) Author Type: Physician Type: Progress Notes Filed: 10/19/2017 9:30 AM Note Text: This note was created using [employer]. Subjective Rohan Olivia Jr. is a 72 year old male was here for follow up of dyspnea on exertion noticed for several weeks, not limiting his activities of daily living or work, but slowing him down. SIDER did tests and referred him to pulmonary [...] MD CNOV Observed: 10/19/2017 Status: COMPLETED Source: [facility] 8:20 AM [facility] REPOSITORY Office Visit (INTMWS) ROHAN OLIVIA JR. ([id number]) 1945 M Date Time Provider Department 10/19/17 8:20 AM BRANDON CANTOR INTNadiyaWS During your visit today, we recorded the [...] living or work, but slowing him down. 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 ([id number]) 1945 M Date Time Provider Department 09/18/17 [...] keep appointment for lung function testing. Delicia Older, WATER VESSEL CAPTAINMARYAN Jimenez Cma 09/18/2017 10:22 AM Signed Left [...] of breath [R06.02] Order(s):CONSULT TO PULMONARY MEDICINE [7552955] Order #: [id number]: 1 Prescriptions as of 09/18/2017 Sig: PAROXETINE [...] 2V FRONTAL/LAT Observed: 09/14/2017 Status: F Source: [facility] 11:38 AM [facility] REPOSITORY * * *Final Report* * * [...] THOUGHT TO BE A LESS LIKELY ETIOLOGY. Metal Molder: PSCB Transcribe Date/Time: Sep 15 2017 11:09A Dictated by : HARJIT JAMES MD This examination was interpreted and the report reviewed and electronically signed by: HARJIT JAMES MD on Sep 15 2017 11:12AM EST [id number] Observed: 09/14/2017 Status: COMPLETED Source: [facility] 11:33 AM [facility] REPOSITORY HNO ID: [id number] Author: Gianna XiaoRtYesika Ryan Service: (none) Author Type: Temporary Help Agency Referral Clerk Type: Progress Notes Filed: 09/14/2017 11:39 AM [...] AM PROGRESS Observed: 09/14/2017 Status: COMPLETED Source: [facility] 11:02 AM [facility] REPOSITORY O ID: [id number] Author: Delicia Amos) Older Service: (none) Author Type: Nurse Practitioner [...] Patient agreeable to treatment plan. Delicia Quiñonez APRN.SANTINO EARL Observed: 09/14/2017 Status: COMPLETED Source: [facility] 10:20 AM [facility] REPOSITORY Office Visit (INTMWS) ROHAN OLIVIA JR. ([id number]) 1945 M Date Time Provider Department 09/14/17 10:20 AM OLDER DELICIA (SANTINO) INTMWS During your visit today, we recorded the following information about you: Temperature Pulse Respiration Blood pressure 98.3 degrees 68/minute 14/minute 126/60 Weight 99.3 kg Delicia Older, WATER VESSEL CAPTAIN.SANTINO 09/14/2017 2:26 PM Signed CC: Patient presents [...] Patient agreeable to treatment plan. Delicia Quiñonez APRN.FOREIGN AGENT Referring Provider: BRANDON CANTOR [[id number]] Allergies As of Date: 09/14/2017 (No Known Allergies) Date Reviewed: 09/14/2017 Reviewed by: Laure Jimenez Relief Pharmacist - Fully Assessed Reason for Visit: F/U [...] [E05.90] Order(s):SPIROMETRY - BASELINE AND POST DILATOR [4897261] Order #: [id number] FUTURE LUNG VOLUMES [1001264] Order #: [id number] FUTURE LUNG DIFFUSION CAPACITY (DLCO) [5347625] Order #: [id number] FUTURE XR CHEST 2V FRONTAL/LAT [0546353] Order #: [id number] FUTURE Prescriptions as of 09/14/2017 Sig: PAROXETINE [...] METABOLIC PANL Collected: 09/11/2017 Status: F Source: [facility] 8:44 AM [facility] REPOSITORY TYPE CODE TESTS RESULT OUT OF REFERENCE UNITS RANGE LAB GLU 74-99 mg/dL High Glucose 103 Result Comment: The [place] Diabetes Association (ADA) provides guidance for cutoff [...] Standards of Medical Care in Diabetes 2016, [place] Diabetes Association. Diabetes Care. 2016.39(Suppl 1). LAB [...] GFR. Performed By: #### BMP, LIPB #### [facility] [address] [place], [place] [address] LIPID PANEL, BASIC Collected: 09/11/2017 Status: F Source: [facility] 8:44 AM [facility] REPOSITORY TYPE CODE TESTS RESULT OUT OF [...] Desk Reference: National Heart, Lung, and Blood [place]. National Institutes of Health. 2001: NIH Publication No. 01-3305. 2. An International Atherosclerosis Society position paper: global recommendations for the management of dyslipidemia: executive summary, Atherosclerosis. 2014: 232(2):410-413. Performed By: #### BMP, LIPB #### [facility] [address] [place], [place] [address] CNPTOUTREACH Observed: 08/29/2017 Status: COMPLETED Source: [facility] 12:00 AM [facility] REPOSITORY Patient Outreach (INTMWH) ROHAN OLIVIA JR. ([id number]) 1945 M Date Time Provider Department 08/29/17 BRANDON CANTOR [facility] During your visit today, we recorded the following information about you: Allergies As of Date: 08/29/2017 (No Known Allergies) Date Reviewed: 04/05/2017 Reviewed by: Jennifer Martínez Ma - Fully Assessed Visit Diagnosis:Medication management [Z79.899] Order(s):BASIC METABOLIC PNL [SQBMP] Order #: [id number] FUTURE LIPID PANEL BASIC [SQLIPB] Order #: [id number] FUTURE Prescriptions as of 08/29/2017 Sig: X [...] neuropathy [G60.9] INVALID FOR* Encounter Status:Closed by LAURIE FERREIRAUSER on 03/16/18 ALLERGIES ALLERGIES DATE TYPE / CODE NAME / CODE REACTION SEVERITY SOURCE 05/18/2018 Drug No Known Unknown [place] [facility] Allergy/416 Allergies/Z57612 Hospital 396045(SNOM 0388(RXNORM) Repository ED CT) Drug NO KNOWN [facility] Class/78548 ALLERGIES [place] 1003(SNOMED Repository CT) ENCOUNTERS ENCOUNTERS ADMIT/DISCHARGE ACCOUNT ADMITTING ENCOUNTER LOCATION SOURCE NUMBER CLASS 06/13/2018/06/15/19 [id number] Ambulatory [address] Repository 06/07/2018/06/07/19 [id number] Emergency [address] Hospital ing:ED Repository 05/18/2018 [id number] Ambulatory [facility] Hospital ing:RAD Repository 05/18/2018 [id number] Ambulatory [facility] Repository 05/18/2018/05/18/20 [id number] Ambulatory BMSBuilding:Jena Mcarthur 18 [place].[facility] Repository 05/10/2018/05/10/20 [id number] Ambulatory BMSBuilding:Jena Mcarthur 18 [place].[facility] Hospital Repository 05/01/2018 [id number] Ambulatory BMSBuilding:[facility] Repository 05/01/2018 [id number] Ambulatory [facility] Hospital ing:PSN Repository 04/09/2018 [id number] Ambulatory BMSBuilding:[facility] Repository 04/09/2018 [id number] [facility] ing[facility]PSN Repository 03/27/2018 [id number] [facility] ing:LAB Repository 03/15/2018/03/16/20 [id number] Ambulatory [address] Repository 03/12/2018/03/12/20 [id number] Ambulatory [address] Repository 03/05/2018 [id number] [facility] ing:LABSPEC Repository 02/13/2018 [id number] Ambulatory [facility] Hospital ing:CVS Repository 02/13/2018 [id number] Ambulatory BMSBuilding:[facility] Repository 01/31/2018/02/01/20 [id number] Ambulatory BMSBuilding:Jena Mcarthur 18 [place].[facility] Hospital Repository 01/30/2018/02/01/20 [id number] Ambulatory [address] Repository 01/17/2018/01/26/20 [id number] Kenneth Jung Chi Inpatient [facility] 18 Encounter [facility] ing:TCURoom: Repository [id number]: 1 01/12/2018/01/18/20 [id number] Ambulatory BMSBuilding:W [place] 18 [facility] Repository 01/11/2018/01/18/20 [id number] Franco, Jaspreet Inpatient [facility] 18 Encounter [facility] ing:PCURoom: Repository [id number]: 1 01/11/2018 [id number] Joninaeri, Jaspreet Ambulatory BMSBuilding:B [place] Repository 01/11/2018 [id number] Jovickie, Jaspreet Ambulatory BMSBuilding:B [place] Repository 01/11/2018 [id number] Franco, Jaspreet Ambulatory BMSBuilding:B [place] Repository 01/11/2018 [id number] Franco, Jaspreet Ambulatory BMSBuilding:B [place] Repository 01/11/2018 [id number] Joninaeri, Jaspreet Ambulatory BMSBuilding:B [place].[facility] Repository 01/11/2018 [id number] Franco, Jaspreet Ambulatory BMSBuilding:B [place] Repository 01/11/2018 [id number] Franco, Jaspreet Ambulatory BMSBuilding:B [place] Repository 01/11/2018 [id number] Franco, Jaspreet Ambulatory BMSBuilding:B [place] Repository 01/11/2018 [id number] Franco, Jaspreet Ambulatory BMSBuilding:B [place] Repository 01/11/2018/01/18/20 [id number] Ambulatory BMSBuilding:W [address] Repository 01/11/2018/01/18/20 [id number] Ambulatory BMSBuilding:W [address] Repository 01/11/2018 [id number] Ambulatory BMSBuilding:B [place] Repository 12/14/2017/12/26/19 [id number] Ambulatory [place] [facility] [place] Repository 10/19/2017/10/20/19 [id number] Ambulatory [place] [facility] [place] Repository 10/19/2017/10/20/19 [id number] Ambulatory [place] [facility] [place] Repository 10/19/2017/10/21/19 [id number] Ambulatory [place] 18 [facility] [place] Repository 09/21/2017/09/22/19 [id number] Ambulatory [place] 18 [facility] [place] Repository 09/21/2017/09/22/19 [id number] Ambulatory [place] 18 [facility] [place] Repository 09/21/2017/10/06/19 [id number] Ambulatory [place] 18 [facility] [place] Repository 09/14/2017/09/15/19 [id number] Ambulatory [place] 18 [facility] [place] Repository 09/14/2017 [id number] Ambulatory [facility] [place] Repository 09/14/2017 [id number] Ambulatory [facility] [place] Repository 09/14/2017 [id number] Ambulatory [facility] [place] Repository 09/14/2017/09/16/19 [id number] Ambulatory [address] [place] Repository 09/11/2017 [id number] Ambulatory [facility] Repository PAYERS PAYERS ENCOUNTER GUARANTOR PAYER SUBSCRIBER SOURCE 06/07/2018 ROHAN Alvarenga Primary ROHAN Mcarthur [id number] Insurance:ANT[place] [id number] Hospital [address]74Kre: 330) ADVANTAPolicy Number: Repository [phone] () [id number] Date:5743-86-10GY[address] [address]RI: 06/07/2018 Secondary NOT GIVENUNK [place] Insurance:SELF PAY [facility] Number: Effective Repository Date:2018-06-07 05/18/2018 ROHAN Alvarenga Primary ROHAN Mcarthur [id number] Insurance:ANTH [place]OB[place] [id number] Hospital [address]Fyf: (330) ADVANTAPolicy Number: Repository [phone] () [id number] Date:8569-06-93LX [address] [place] [address] 85767KV: 05/18/2018 Secondary NOT GIVENUNK [place] Insurance:SELF PAY [facility] Number: Effective Repository Date:2018-05-18 05/18/2018 ROHAN W Primary RHOAN W [place] [id number] Insurance:ANTHEM [place] [id number] Hospital 6[address]Ljb: (330) ADVANTAPolicy Number: Repository [phone] () [id number] Date:6298-62-56PV [address] [place] [address] 17502VS: 05/18/2018 Secondary NOT GIVENUNK [place] Insurance:SELF PAY [facility] Hospital Number: Effective Repository Date:2018-05-18 05/18/2018 ROHAN W Primary ROHAN W [place] [id number] Insurance:ANTHEM [place] [id number] Hospital 79[address]Syg: (330) ADVANTAPolicy Number: Repository [phone] () [id number] Date:1294-10-00KD [address] [place] [address] 17387NV: 05/18/2018 Secondary NOT GIVENUNK [place] Insurance:SELF PAY [facility] Hospital Number: Effective Repository Date:2018-05-18 05/10/2018 ROHAN W Primary ROHAN W [place] [id number] Insurance:ANTHEM [place] [id number] Hospital 90[address]Pcw: (330) ADVANTAPolicy Number: Repository [phone] () [id number] Date:0063-44-42YY [address] [place] [address] 33467WS: 05/10/2018 Secondary NOT GIVENUNK [place] Insurance:SELF PAY [facility] Hospital Number: Effective Repository Date:2018-05-03 05/01/2018 ROHAN W Primary ROHAN W [place] [id number] [address] Insurance:ANTHEM [place] [id number] Hospital 34772Gzq: (330) ADVANTAPolicy Number: Repository [phone] () [id number] Date:6838-07-62SL [address] [place] [address] 11362XP: 05/01/2018 Secondary NOT GIVENUNK [place] Insurance:SELF PAY [facility] Hospital Number: Effective Repository Date:2018-05-01 05/01/2018 ROHAN W Primary ROHAN W [place] [id number] Insurance:ANTHEM [place] [id number] Hospital 236[address]Dfq: (330) ADVANTAPolicy Number: Repository [phone] () [id number] Date:7126-82-25GE [address] [place] [address] 86089UB: 05/01/2018 Secondary NOT GIVENUNK [place] Insurance:SELF PAY [facility] Hospital Number: Effective Repository Date:2018-01-31 04/09/2018 ROHAN W Primary ROHAN W [place] [id number] [address] Insurance:ANTHEM [place] [id number] Hospital 36657Lcu: (330) ADVANTAPolicy Number: Repository [phone] () [id number] Date:5970-86-33BQ [address] [place] [address] 91006ZS: 04/09/2018 Secondary NOT GIVENUNK [place] Insurance:SELF PAY [facility] Hospital Number: Effective Repository Date:2018-04-09 04/09/2018 ROHAN W Primary ROHAN W [place] [id number] Insurance:ANTHEM [place] [id number] Hospital 12098Wqi: (330) ADVANTAPolicy Number: Repository [phone] () [id number] Date:4173-38-64MJ [address] [place] [address] 98854LN: 04/09/2018 Secondary NOT GIVENUNK [place] Insurance:SELF PAY [facility] Hospital Number: Effective Repository Date:2018-01-31 03/27/2018 ROHAN W Primary ROHAN W [place] [id number] [address] Insurance:ANTHEM [place] [id number] Hospital 015[address]Iac: (330) ADVANTAPolicy Number: Repository [phone] () [id number] Date:3220-11-26ES [address] [place] [address] 60449UJ: 03/27/2018 Secondary NOT GIVENUNK [place] Insurance:SELF PAY [facility] Hospital Number: Effective Repository Date:2018-03-27 03/05/2018 ROHAN W Primary ROHAN W [place] [id number] [address] Insurance:ANTHEM [place] [id number] [id number]: (330) ADVANTAPolicy Number: Repository [phone] () [id number] Date:1920-69-43TA [address] [place] [address] 85104AY: 03/05/2018 Secondary NOT GIVENUNK [place] Insurance:SELF PAY [facility] Number: Effective Repository Date:2018-03-05 02/13/2018 ROHAN W Primary ROHAN W [place] [id number] [address] Insurance:ANTHEM [place] [id number] [id number]: (330) ADVANTAPolicy Number: Repository [phone] () [id number] Date:8199-06-06TR [address] [place] [address] 26096HC: 02/13/2018 Secondary NOT GIVENUNK [place] Insurance:SELF PAY [facility] Hospital Number: Effective Repository Date:2018-02-09 02/13/2018 ROHAN W Primary ROHAN W [place] [id number] [address] Insurance:ANTHEM [place]OB[place] [id number] [id number]: (330) ADVANTAPolicy Number: Repository [phone] () [id number] Date:1402-87-99NR [address] [place] [address] 97154KU: 02/13/2018 Secondary NOT GIVENUNK [place] Insurance:SELF PAY [facility] Hospital Number: Effective Repository Date:2018-02-13 01/31/2018 ROHAN W Primary ROHAN W [place] [id number] Insurance:ANTHEM HOPPEDOB: [place] [id number] [id number]: (330) ADVANTAPolicy Number: Repository [phone] () [id number] Date:6209-92-09LC [address] [place] [address] 14099HU: 01/31/2018 Secondary NOT GIVENUNK [place] Insurance:SELF PAY [facility] Number: Effective Repository Date:2018-01-24 01/17/2018 ROHAN W Primary ROHAN W [place] [id number] [address] Insurance:ANTHEM [place] [id number] Hospital 83055Xpb: (330) ADVANTAPolicy Number: Repository [phone] () [id number] Date:3077-55-95WA [address] [place] [address] 71719DQ: 01/17/2018 Secondary ROHAN W [place] Insurance:MEDICARE HOPPEDOB: Community PART A [facility] [id number] Hospital Number: Repository [id number] Date:2018-01-17 01/17/2018 Tertiary NOT GIVENUNK [place] Insurance:SELF PAY [facility] Hospital Number: Effective Repository Date:2018-01-17 01/12/2018 ROHAN W Primary ROHAN W [place] [id number] [address] Insurance:ANTHEM [place]OB[place] [id number] Hospital 34262Fhp: (330) ADVANTAPolicy Number: Repository [phone] () [id number] Date:4892-76-70QS [address] [place] [address] 90643IX: 01/12/2018 Secondary NOT GIVENUNK [place] Insurance:SELF PAY [facility] Number: Effective Repository Date:2018-01-12 01/11/2018 ROHAN W Primary ROHAN W [place] [id number] Insurance:ANTHEM [place]OB[place] [id number] Hospital 23688Fum: (330) ADVANTAPolicy Number: Repository [phone] () [id number] Date:3494-87-20MD [id number] [place] [address] 89514SQ: 01/11/2018 Secondary NOT GIVENUNK [place] Insurance:SELF PAY [facility] Number: Effective Repository Date:2018-01-11 01/11/2018 ROHAN W Primary ROHAN W [place] [id number] [address] Insurance:ANTHEM [place] 1945[facility] 81417Svq: (330) ADVANTAPolicy Number: Repository [phone] () [id number] Date:2260-48-92YY [address] [place] [address] 53290YE: 01/11/2018 Secondary NOT GIVENUNK [place] Insurance:SELF PAY [facility] Number: Effective Repository Date:2018-01-11 01/11/2018 ROHAN W Primary ROHAN W [place] [id number] Insurance:ANTHEM [place]OB[place] [id number] Hospital 48613Wtl: (330) ADVANTAPolicy Number: Repository [phone] () [id number] Date:6501-94-27VZ [address] [place] [address] 41515MJ: 01/11/2018 Secondary NOT GIVENUNK [place] Insurance:SELF PAY [facility] Number: Effective Repository Date:2018-01-11 01/11/2018 ROHAN W Primary ROHAN W [place] [id number] Insurance:ANTHEM [place]OB[place] [id number] Hospital 39330Rzt: (330) ADVANTAPolicy Number: Repository [phone] () [id number] Date:9354-74-51EB [address] [place] [address] 81989VT: 01/11/2018 Secondary NOT GIVENUNK [place] Insurance:SELF PAY [facility] Hospital Number: Effective Repository Date:2018-01-11 01/11/2018 ROHAN Alvarenga Primary ROHAN W [place] [id number] [address] Insurance:[place]HEM [place] [id number] Hospital 43432Kza: (330) ADVANTAPolicy Number: Repository [phone] () [id number] Date:9173-01-45HW [address] [place] [address] 99313NX: 01/11/2018 Secondary NOT GIVENUNK [place] Insurance:SELF PAY [facility] Number: Effective Repository Date:2018-01-11 01/11/2018 ROHAN Alvarenga Primary ROHAN W [place] [id number] [address] Insurance:ANTHEM [place] 1945[facility] 45280Hco: (330) ADVANTAPolicy Number: Repository [phone] () [id number] Date:4704-38-19HJ [address] [place] [address] 42530JE: 01/11/2018 Secondary NOT GIVENUNK [place] Insurance:SELF PAY [facility] Hospital Number: Effective Repository Date:2018-01-11 01/11/2018 ROHAN Alvarenga Primary ROHAN W [place] [id number] [address] Insurance:ANTHEM [place] 1945[facility] 84591Lli: (330) ADVANTAPolicy Number: Repository [phone] () [id number] Date:9634-49-13SY [address] [place] [address] 00316KF: 01/11/2018 Secondary NOT GIVENUNK [place] Insurance:SELF PAY [facility] Number: Effective Repository Date:2018-01-11 01/11/2018 ROHAN W Primary ROHAN W [place] [id number] Insurance:[place]HE[place] [id number] Hospital 14794Wza: (330) ADVANTAPolicy Number: Repository [phone] () [id number] Date:3444-64-52WY [address] [place] [address] 47868PP: 01/11/2018 Secondary NOT GIVENUNK [place] Insurance:SELF PAY [facility] Hospital Number: Effective Repository Date:2018-01-11 01/11/2018 ROHAN W Primary ROHAN W [place] [id number] [address] Insurance:[place]HEM [place] [id number] Hospital 92986Dga: (330) ADVANTAPolicy Number: Repository [phone] () [id number] Date:6798-19-07BQ [address] [place] [address] 83154RG: 01/11/2018 Secondary NOT GIVENUNK [place] Insurance:SELF PAY [facility] Number: Effective Repository Date:2018-01-11 01/11/2018 ROHAN W Primary ROHAN W [place] [id number] Insurance:[place]HEM [place] [id number] Hospital 14604Aug: (330) ADVANTAPolicy Number: Repository [phone] () [id number] Date:4739-71-17YG [address] [place] [address] 61249PH: 01/11/2018 Secondary NOT GIVENUNK [place] Insurance:SELF PAY [facility] Hospital Number: Effective Repository Date:2018-01-11 01/11/2018 ROHAN W Primary ROHAN W [place] [id number] Insurance:ANTHEM HOPPEDOB: [facility] [place] [id number] Hospital 34761Igb: (330) ADVANTAPolicy Number: Repository [phone] () [id number] Date:0379-72-98JY [address] [place] [address]YC: 01/11/2018 Secondary NOT GIVENUNK [place] Insurance:SELF PAY [facility] Number: Effective Repository Date:2018-01-11 01/11/2018 ROHAN W Primary ROHAN W [place] [id number] [address] Insurance:ANTHEM HOPPEDOB: Community [place] MEDICARE SENIOR [id number] Hospital 08865Lef: (330) ADVANTAPolicy Number: Repository [phone] () [id number] Date:2238-55-32NL [address] [place] [address]YQ: 01/11/2018 Secondary NOT GIVENUNK [place] Insurance:SELF PAY [facility] Number: Effective Repository Date:2018-01-11 01/11/2018 ROHAN W Primary ROHAN W [place] [id number] Insurance:ANTHEMPolic HOPPEDOB: Community TIMMYsolange [place] y Number: [id number] Hospital 69846Cro: (330) [id number] Repository [phone] () Date:2997-95-22FL [address]NY[address] [place] [address]XL: 01/11/2018 Secondary NOT GIVENUNK [place] Insurance:SELF PAY [facility] Number: Effective Repository Date:2018-01-11
== END ==
PROVIDERS: Family Provider Internal Medicine; PCP Internal Medicine; Referring Provider Nurse Practitioner Acute Care; Visit Provider Nurse Practitioner Acute Care
DX: R04.2 Hemoptysis (principal)
CPT/HCPCS: 71046

== ENCOUNTER 2018-06-07 09:38 | Emergency (ER) | payer MEDICARE, SELFPAY ==
[2018-05-18 10:58] VITALS: BMI 28.7
[2018-06-07 09:39] VITALS: BP 164/73; PULSE 95; RESP 16; TEMP 36.6; O2SAT 98; BMI 28.7
[2018-06-07] MEDS: Morphine 4 MG/ML Syringe 6 MG IV (10:28)
[2018-06-07] MEDS: Ondansetron 4 MG/2 ML Vial IV (10:28)
--- NOTE | 2018-06-07 11:07 | ED.RN ---
PT REPORTS IMPROVEMENT IN PAIN, DR. BURGER MADE AWARE.
[2018-06-07] MEDS: diazePAM 5 MG Tablet 2.5 MG PO (11:36)
[2018-06-07] MEDS: morphine 8 MG/ML Syringe 6 MG IV (11:36)
--- NOTE | 2018-06-07 11:51 | ED.RN ---
DR. BURGER REQUESTS THAT PATIENT BE AMBULATED USING A SCORING TOOL, PHYSICAL THERAPY MADE AWARE AND STATES WILL BE DOWN TO ASSESS PATIENT.
--- NOTE | 2018-06-07 13:09 | ED.RN ---
PHYSICAL THERAPY AT BEDSIDE.
--- NOTE | 2018-06-07 13:29 | ED.RN ---
PHYSICAL THERAPY STATES THAT LONG PATIENT HAS THE USE OF A WALKER, HE CAN AMBULATE WITHOUT ASSIST AND CAN BE DC'ED HOME, DR. BURGER MADE AWARE.
--- NOTE | 2018-06-07 13:30 | ED.VISSUMM ---
- ER Visit Summary Date of Service: 06/07/18 Chief Complaint: Severe low back History of Present Illness: The patient is a 73 M who presents with severe low back pain. He moved furniture on Monday. He initially took Tylenol with marked improvement. He presents today because of severe pain with no improvement after taking Tylenol. He reports pain with any type of movement. He denies bowel or bladder dysfunction. He denies saddle paresthesia or anesthesia. He denies foot drop. He denies weakness in his quadricep muscles. There is no history of direct trauma or fall. There is a history of congestive heart failure, hypertension, hypercholesterolemia, benign prostatic hypertrophy and pulmonary embolus. Physical Examination: Vital signs noted and blood pressure is elevated 164/73. He appears in discomfort. HEENT exam is unremarkable. Heart is regular without murmur, gallop or rub. Lungs are clear to auscultation. Straight leg test in supine position because patient cannot get out of wheelchair to get on examining cot is negative. EHL intact. Patella and ankle reflex are 2+. Normal sensation. There is no clonus or Babinski sign noted. Test Results: None Emergency Department Course and Treatment: Patient was initially medicated with 6 mg of morphine and 4 mg of Zofran. He was reassessed at 1125. He states he was in significant pain and he was unable to lift his foot off the floor. He received an additional 6 mg of morphine and 2 mg of Valium p.o. Physical therapy eval was placed at 1205. He is now able to ambulate with a walker. He feels safe and comfortable going home. He states he has a walker at home. Treatment Plan: Prescription for Percocet and Valium and appropriate home-going instructions Disposition: Discharged to home with in stable and improved condition Impression: Acute bilateral back pain without sciatica secondary to lifting (strain) This note was generated with [employer] dictation software. It may contain incorrect words, spelling, and punctuation that were not noted in review of the chart prior to signing ED Disposition - Plan for ED Patient: Disposition: Home or Assisted Living Chief Complaint: Back Instructions: ED Sprain Strain Lumbar Prescriptions: Oxycodone HCl/Acetaminophen [Percocet 5/325] 1 tablet PO Q6H PRN PRN 3 Days #12 tablet PRN Reason: Pain Diazepam [Valium] 2 mg PO TID PRN PRN #10 tablet PRN Reason: back spasm Referrals: Brandon Cantor MD [Primary Care Provider] - 3-5 Days if not improving Additional Instructions: Your prescriptions were electronically transmitted to [facility] pharmacy on [facility].
--- NOTE | 2018-06-07 13:36 | ED.DCSUM_ITS ---
- ER Visit Summary Date of Service: 06/07/18 Chief Complaint: Severe low back History of Present Illness: The patient is a 73 M who presents with severe low back pain. He moved furniture on Monday. He initially took Tylenol with marked improvement. He presents today because of severe pain with no improvement after taking Tylenol. He reports pain with any type of movement. He denies bowel or bladder dysfunction. He denies saddle paresthesia or anesthesia. He denies foot drop. He denies weakness in his quadricep muscles. There is no history of direct trauma or fall. There is a history of congestive heart failure, hypertension, hypercholesterolemia, benign prostatic hypertrophy and pulmonary embolus. Physical Examination: Vital signs noted and blood pressure is elevated 164/73. He appears in discomfort. HEENT exam is unremarkable. Heart is regular without murmur, gallop or rub. Lungs are clear to auscultation. Straight leg test in supine position because patient cannot get out of wheelchair to get on examining cot is negative. EHL intact. Patella and ankle reflex are 2+. Normal sensation. There is no clonus or Babinski sign noted. Test Results: None Emergency Department Course and Treatment: Patient was initially medicated with 6 mg of morphine and 4 mg of Zofran. He was reassessed at 1125. He states he was in significant pain and he was unable to lift his foot off the floor. He received an additional 6 mg of morphine and 2 mg of Valium p.o. Physical therapy eval was placed at 1205. He is now able to ambulate with a walker. He feels safe and comfortable going home. He states he has a walker at home. Treatment Plan: Prescription for Percocet and Valium and appropriate home-going instructions Disposition: Discharged to home with in stable and improved condition Impression: Acute bilateral back pain without sciatica secondary to lifting (strain) This note was generated with [employer] dictation software. It may contain incorrect words, spelling, and punctuation that were not noted in review of the chart prior to signing ED Disposition - Plan for ED Patient: Disposition: Home or Assisted Living Chief Complaint: Back Instructions: ED Sprain Strain Lumbar Prescriptions: Oxycodone HCl/Acetaminophen [Percocet 5/325] 1 tablet PO Q6H PRN PRN 3 Days #12 tablet PRN Reason: Pain Diazepam [Valium] 2 mg PO TID PRN PRN #10 tablet PRN Reason: back spasm Referrals: Brandon Cantor MD [Primary Care Provider] - 3-5 Days if not improving Additional Instructions: Your prescriptions were electronically transmitted to [facility] pharmacy on [facility].
[2018-06-07 13:56] VITALS: BP 118/77; PULSE 77; RESP 16; O2SAT 96
--- NOTE | 2018-06-07 13:56 | ED.RN ---
IV DC'ED, CATHETER INTACT, SMALL GAUZE DRESSING PLACED. DISCHARGE INSTRUCTIONS GIVEN TO AND REVIEWED WITH PATIENT AND SPOUSE, BOTH DENY QUESTIONS OR CONCERNS AND VOICES UNDERSTANDING OF DISCHARGE INSTRUCTIONS. PT TO PRIVATE VEHICLE VIA WHEELCHAIR.
== END 2018-06-07 13:58 | disposition home or self-care (01) ==
PROVIDERS: Emergency Provider Emergency Medicine; Family Provider Internal Medicine; PCP Internal Medicine
DX: S39.012A Strain of muscle, fascia and tendon of lower back, initial encounter (principal); I11.0 Hypertensive heart disease with heart failure; I50.9 Heart failure, unspecified; E78.00 Pure hypercholesterolemia, unspecified; Z86.711 Personal history of pulmonary embolism; Z79.02 Long term (current) use of antithrombotics/antiplatelets; Z79.899 Other long term (current) drug therapy; X50.0XXA Overexertion from strenuous movement or load, initial encounter; Y93.89 Activity, other specified; Y92.89 Other specified places as the place of occurrence of the external cause; Y99.8 Other external cause status
CPT/HCPCS: 96374; 96375; 96376; 97162; 99285; A4216; J2405

== ENCOUNTER 2018-08-05 09:50 | Emergency (ER) | payer MEDICARE, SELFPAY ==
[2018-08-05 09:52] VITALS: BP 143/69; PULSE 92; RESP 16; TEMP 36.9; O2SAT 95; BMI 29.7
--- NOTE | 2018-08-05 10:34 | CT_ITS ---
STUDY: CT BRAIN WITHOUT CONTRAST REASON FOR EXAM: Male, 73 years old. Dizziness. RADIATION DOSAGE (If Supplied By Facility): CTDIvol = ( 44.99 ) mGy, DLP = ( 812.98 ) mGycm TECHNIQUE: Transaxial CT imaging of the brain was performed without administration of intravenous contrast material. Individualized dose optimization techniques were used for this CT. COMPARISON: None. FINDINGS: Normal soft tissue structures. Normal calvarium. Normal size ventricles and extra-axial spaces for the patient's age. Normal white matter tracts of the cerebral hemispheres. Normal basal ganglia and thalami. Normal brainstem. Normal cerebellum. There is no intracranial hemorrhage. There are no findings of an acute ischemic infarction. Polyps are identified in the maxillary sinuses bilaterally. CT/Brain/Head without Contrast IMPRESSION: Maxillary sinus polyps. No evidence for acute infarction or hemorrhage. Electronically Signed: Jose Armando Rios, at 11:33 EST Tel , Service support ,
--- NOTE | 2018-08-05 10:34 | EKG12_ITS ---
Test Reason : DIZZINESS Blood Pressure : / mmHG Vent. Rate : 073 BPM Atrial Rate : 073 BPM P-R Int : 196 ms QRS Dur : 112 ms QT Int : 406 ms P-R-T Axes : 037 -34 028 degrees QTc Int : 447 ms Normal sinus rhythm Left axis deviation Abnormal ECG Confirmed by DEAN PICKARD MD ([id number]), supervising film or videotape editor KARL CASAREZ ([id number]) on 08/06/2018 2:35:08 PM Referred By: YANELY Confirmed By:DEAN PICKARD MD
[2018-08-05 10:49] LABS: Absolute Neutrophil Count 6.7 X10^3/uL (2.0-7.7); Basophil# 0.02 X10^3/uL; Basophil% 0.2 % (0-1); Eosinophil# 0.06 X10^3/uL; Eosinophils% 0.7 % (0-5); Hematocrit 53.1 % (40-54); Hemoglobin 17.9 g/dl (13.0-16.5); Mean Corp Hgb Conc 33.7 g/gl (32-36); Mean Corpuscular Hgb 30.7 pg (27.0-32.0); Mean Corpuscular Volume 91.1 fL (80-94); Mean Platelet Vol. 10.4 fl (6.2-12.0); Monocyte# 0.48 X10^3/uL; Neutrophil # 6.67 X10^3/uL (2.7-7.7); Platelet Count 156 K/mm3 (150-450); RBC Distribution Width CV 14.4 % (11.6-14.6); RBC Distribution Width SD 47.8 fl (35.1-43.9); Red Blood Count 5.83 M/mm3 (4.6-6.2)
[2018-08-05 10:52] LABS: POSITIVE COUNT NO; POSITIVE DIFFERENTIAL NO; POSITIVE MORPHOLOGY NO
[2018-08-05 10:57] LABS: Anion Gap 6 (5-15); BUN 10 mg/dL (7-18); BUN/Creat Ratio 12.8 RATIO (10-20); Calcium,Total 8.6 mg/dL (8.5-10.1); Chloride 109 mmol/L (98-107); Creatinine, Serum 0.78 mg/dL (0.70-1.30); EST Glomerular Filtration Rate 104 mL/min (>60); Est Glom Filt Rate - Afr Amer 125 mL/min (>60); Estimated Creatinine Clearance 67.93 ml/min; Glucose 97 mg/dL (74-106); Potassium 3.6 mmol/L (3.5-5.1); Sodium Level 140 mmol/L (136-145)
[2018-08-05] MEDS: Meclizine HCl 25 MG Tablet PO (11:00)
[2018-08-05 12:35] VITALS: BP 154/69; PULSE 87; RESP 14; O2SAT 98
[2018-08-05 12:39] VITALS: BP 131/77; BP 162/77; BP 165/76; PULSE 88; PULSE 90; PULSE 91
--- NOTE | 2018-08-05 14:15 | ED.DCSUM_ITS ---
- ER Visit Summary Date of Service: 08/05/18 Chief Complaint: Dizziness History of Present Illness: The patient is a 73 M prior history of vertigo and hypertension. 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 Patient states that he had dizziness beginning around 630 last night. At times it was spinning but he said now the room is not spinning. Is a mild headache. Denies any falls or trauma. Denies any vomiting or diarrhea. No melena. No fever. No significant shortness of breath, chest pain, cough or abdominal pain. The dizziness is not any worse with head movement. No trouble using his arms or legs. No strokelike symptoms. Physical Examination: Older male coming by family. Vital signs are stable. He is afebrile. Does not look septic or toxic. He is in no distress. HEENT exam unremarkable. No facial droop. Normal speech. Pupils round reactive light extra motions are intact. No signs of trauma to his face or scalp. Neck nontender. Lungs clear to auscultation bilaterally. Heart regular rhythm rate about 70. Abdomen soft nontender normal bowel sounds no peritoneal signs. Patient is moving all 4 extremities. Neurovascular intact. Calves nontender without edema or cords. He has equal symmetrical welfare eligibility worker strength. Fingertip to nose within normal limits. Dorsi and plantar flexion is intact. NIH score is 0. Back nontender. Skin unremarkable. I did put the patient through Hallpike maneuvers and they did not change his dizziness at all. It definitely did not get worse. Clinically this does not seem to be vertigo. I also evaluate his ear canals and there is no significant wax. Both TMs are unremarkable. Test Results: EKG shows a sinus rhythm rate of 73 with no acute signs of OR, ischemia or dysrhythmia. CBC normal white count 8. Hemoglobin 17. Chemistries unremarkable gap is 6 creatinine 0.7. Orthostatic vital signs were negative. CT of his brain without contrast read by the radiologist and reviewed by me shows no acute abnormality. No bleed, mass or acute stroke. Emergency Department Course and Treatment: On repeat exam I ambulate the patient he did well. Currently he is using a cane after having hip replacement surgery but he ambulated and had no trouble with ataxia with his balance. Repeat neurologic exam remains normal at 1410. He and I and his family member went over all of his test results. He was given Antivert in the ER by do not think it made a significant difference and I am not in a writing for any more than. Treatment Plan: Follow-up with his primary care physician. Disposition: Discharge Impression: Acute dizziness of uncertain etiology Anticoagulated on Xarelto This note was generated with [employer] dictation software. It may contain incorrect words, spelling, and punctuation that were not noted in review of the chart prior to signing ED Disposition - Plan for ED Patient: Referrals: Brandon Cantor MD [Primary Care Provider] -
--- NOTE | 2018-08-05 14:15 | ED.DEP ---
ED Disposition - Plan for ED Patient: Disposition: Home or Assisted Living Instructions: ED Dizziness [facility] Referrals: Brandon Cantor MD [Primary Care Provider] - 3-5 Days if not improving Additional Instructions: Follow-up with your doctor if not improving. Your labs, CAT scan and EKG really did not show any reason for your dizziness today.
--- NOTE | 2018-08-05 14:17 | ED.RN ---
IV DC'ED, CATHETER INTACT, SMALL GAUZE DRESSING PLACED.
[2018-08-05 14:23] VITALS: BP 168/80; PULSE 91; RESP 17; O2SAT 93
--- NOTE | 2018-08-05 14:23 | ED.RN ---
IV DC'ED, CATHETER INTACT, SMALL GAUZE DRESSING PLACED. DISCHARGE INSTRUCTIONS GIVEN TO AND REVIEWED WITH PATIENT, PATIENT DENIES QUESTIONS OR CONCERNS AND VOICES UNDERSTANDING OF DISCHARGE INSTRUCTIONS. PT AMBULATES OUT OF ROOM WITHOUT DIFFICULTY.
== END 2018-08-05 14:24 | disposition home or self-care (01) ==
PROVIDERS: Emergency Provider Emergency Medicine; Family Provider Internal Medicine; PCP Internal Medicine
DX: R42 Dizziness and giddiness (principal); Z79.02 Long term (current) use of antithrombotics/antiplatelets; I10 Essential (primary) hypertension; Z86.711 Personal history of pulmonary embolism; Z79.899 Other long term (current) drug therapy
CPT/HCPCS: 70450; 80048; 85025; 93005; 99285; J7030; A4216

== ENCOUNTER → 2018-08-28 07:56 | Outpatient (CLI) | payer MEDICARE, SELFPAY ==
[2018-08-05 09:52] VITALS: BMI 29.7
--- NOTE | 2018-08-28 08:03 | ECHOD_ITS ---
Procedure This was a 2D Doppler, Color Flow transthoracic echocardiogram. The exam was of adequate technical quality. Exam performed in department. Left Ventricle Normal LV size. Left ventricular systolic function is normal. The estimated ejection fraction is 65 %. No evidence for diastolic dysfunction. No regional wall motion abnormalities noted. Right Ventricle Normal RV size. Normal systolic function. Atria Normal left atrium. Normal right atrium. No doppler evidence for ASD. Mitral Valve There is no mitral annular calcification. Normal mitral valve. Trivial mitral valve insufficiency. Tricuspid Valve Normal tricuspid valve. Trivial tricuspid valve insufficiency. Right ventricular systolic pressure estimated to be 18 mmHg. Aortic Valve Trisinus/trileaflet aortic valve. Mild focal aortic valve calcification. Pulmonic Valve The pulmonic valve is not well visualized. Mild (1+) pulmonic valve insufficiency. Great Vessels Normal sized aortic root. Pericardium/Pleural No pericardial effusion. MMode/2D Measurements & Calculations LVIDd: 5.2 cm IVSd: 1.0 cm Ao root diam: 3.5 cm LVIDs: 3.4 cm LVPWd: 1.4 cm RVDd: 2.4 cm FS: 33.6 % LAV(MOD-bp): 61.0 ml LA A4 area: 20.9 cm2 LA dimension(2D): 3.6 cm LAV(MOD-bp) Indexed: 28.8 ml/m2 LAV(MOD-sp2): 54.0 ml LAV(MOD-sp4): 68.6 ml RA A4 area: 15.8 cm2 Doppler Measurements & Calculations MV E max marc: 86.9 cm/sec Lat Peak E' Marc: 10.9 cm/sec Med Peak E' Marc: 7.3 cm/sec MV A max marc: 100.8 cm/sec E/E' lat: 8.0 E/E' med: 11.9 MV E/A: 0.86 Ao V2 max: 153.1 cm/sec LV V1 max: 113.6 cm/sec PA V2 max: 109.5 cm/sec Ao max P.4 mmHg LV V1 max P.2 mmHg TR max marc: 194.8 cm/sec TR max P.2 mmHg Interpretation Summary Left ventricular systolic function is normal. The estimated ejection fraction is 65 %. Trivial mitral valve insufficiency. Trivial tricuspid valve insufficiency. Mild focal aortic valve calcification. Mild (1+) pulmonic valve insufficiency. Right ventricular systolic pressure estimated to be 18 mmHg. No evidence for diastolic dysfunction. Ordering Physician: Ian Barragan Referring Physician: Ian Barragan
== END ==
PROVIDERS: Family Provider Internal Medicine; PCP Internal Medicine; Referring Provider Internal Medicine Critical Care Medicine; Visit Provider Internal Medicine Critical Care Medicine
DX: I27.20 Pulmonary hypertension, unspecified (principal)
CPT/HCPCS: 93306

== ENCOUNTER 2018-10-12 06:44 | Day surgery (SDC) | payer MEDICARE, SELFPAY ==
[2018-09-25 12:31] VITALS: BMI 29.7
--- NOTE | 2018-10-05 06:49 | HP.PCM_ITS ---
Problem List (1) Change in bowel habit Status: Acute History and Physical Date of Admission: 10/12/18 MR#:[id number] Name: MARTA OLIVIA Rep #: [id number] : 1945 Provider: William Jimenes MD Age/Sex: 73/M Location: [facility] Status: Signed Intake Vital Signs 09/25/18 Body Mass Index (BMI) 29.7 09/25/18 Height 5 ft 10 in 09/25/18 Weight: 210 lb 09/25/18 Body Mass Index (BMI) 30.1 09/25/18 Blood Pressure 159/78 H 09/25/18 Blood Pressure Location Rt brachial 09/25/18 Blood Pressure Position Sitting 09/25/18 Respiratory Rate 20 H 09/25/18 Pulse Rate 86 09/25/18 Pulse Ox 97 Intake Visit Reasons: Change in bowel habits Chief Complaint: change in bowel habits Claims Specialist Required: No Is patient in pain?: No Allergies No Known Allergies Allergy (Verified 09/25/18 12:20) Medications Amlodipine Besylate [Norvasc] 10 mg PO DAILY 01/12/17 [History Confirmed 09/25/18] Paroxetine [Paxil] 10 mg PO DAILY 01/12/17 [History Confirmed 09/25/18] Pravastatin [Pravachol] 20 mg PO QHS 01/12/17 [History Confirmed 09/25/18] lorazepam 1 mg tablet 1 mg PO PRN PRN 01/31/18 [History Confirmed 09/25/18] gabapentin mg PO QHS 05/10/18 [History Confirmed 09/25/18] tamsulosin 0.4 mg capsule 0.4 mg PO DAILY 05/10/18 [History Confirmed 09/25/18] Tylenol 2 tab PO PRN PRN 08/05/18 [History Confirmed 09/25/18] aspirin 81 mg tablet,delayed release 81 mg PO DAILY 09/25/18 [History Confirmed 09/25/18] [facility] Medical History Change in bowel habit (Acute) Closed right hip fracture (Acute) Acute respiratory failure with hypoxia (Acute) BPH (benign prostatic hyperplasia) (Chronic) Depression (Chronic) Hypercholesterolemia (Chronic) Fall (Acute) Hypertension (Chronic) Anxiety (Chronic) Diarrhea (Chronic) Osteoarthritis (Chronic) Hyperlipidemia (Chronic) Pulmonary embolism (Acute) Polycythemia (Acute) Anxiety (Acute) Chronic respiratory failure with hypoxia (Acute) HTN (hypertension) (Chronic) Surgical History History of rhinoplasty (Acute) H/O colonoscopy (Resolved) History of colon surgery (Resolved) History of total right hip replacement (Resolved) reattachment of severed finger (Resolved) stoma reversal (Resolved) Family History Father Lung cancer Mother Parkinsons Heart failure Social History household members: spouse housing: house 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al status: employed 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: [employer] pets and animals: Yes pets and animals: cat(s), dog(s) Smoking Status: Former smoker quit date: 06/05/98 pack-years: 72 second hand exposure: No alcohol intake: never substance use type: does not use HPI HPI HPI: MARTA OLIVIA, is a 73 M who presents to the office today for acute change of bowel habits. The patient is referred by his primary care's and Dr. Stepan Cantor written compromise surgical consult recommendations will be returned to him. 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 When the patient had takedown of his ileostomy he had C. difficile which remembers having to be treated for 3 months. His original resection was made 2014. His most recent colonoscopy was January 13, 2017. Using a lift and snare technique polyp was removed from the hepatic flexure. Fortunately final pathology on that was hyperplastic. The patient however is referred now because January 2018 he fractured his hip. He also was detected as having a pulmonary embolism at that time. He has bowel habits altered around that time and have not returned to normal. Although he does not have diarrhea he has intermittent globs of stool. He has not distinctly noticed any blood. He has not had any intentional weight loss. States that his bowel habits are not similar to when he had the C. difficile colitis in 2015 but it is bowel habits are not distinctly formed. The etiology to the change is unclear. He does not describe that he actively sees mucus HPI HPI HPI: MARTA OLIVIA, is a 73 M who presents to the office today for ROS General General: No weight change, appetite, fatigue, colon cancer, breast cancer or weakness HEENT HEENT: No difficulty swallowing, eye injury, eye surgery, swollen glands or hoarseness Endo Endocrine: No thyroid disease, diabetes mellitus, thyroid cancer, Hair loss, heat intolerance or cold intolerance Cardio Cardiovascular: Yes high blood pressure; no murmur, pacemaker, heart disease, atrial fibrillation, heart attack, heart stent, palpitations, shortness of breat with exertion or chest pain Psych Psychiatric: Yes anxiety; no depression or hearing voices Resp Respiratory: No shortness of breath, No sleep apnea, No cough, No COPD, No asthma, No emphysema, No wheezing Gastro Gastrointestinal: No abdominal pain, No nausea or vomiting, No diarrhea, No constipation, No blood in stool, No acid reflux, No hemorrhoids, No ulcers, No gallbladder problem, No black,tarry stools Neuro Neurologic: No weakness Exam Const General: cooperative, anxious Nutritional Appearance: overweight Orientation: alert, awake HENMT Head: normal to inspection Resp Effort & Inspection: normal respiratory effort Auscultation: clear to auscultation bilaterally Cardio Rate: regular rate Rhythm: regular rhythm Heart Sounds: no murmurs GI Palpation: soft Auscultation: normal bowel sounds Other: Well-healed robotic puncture sites and infraumbilical midline incision Neuro Cognition: normal cognition Extrem General: no calf tenderness bilaterally Psych Affect: normal affect Assessment & Plan Problems 1. Change in bowel habit R19.4 Plan 73-year-old gentleman. He has had a history of a robotic low anterior resection of the colorectum for a tubulovillous adenoma. He currently has an acute change of bowel habit. I have discussed recommendations to pursue a colonoscopy with possible biopsy or polypectomy. He is aware of the technique, benefit, risks, alternatives. He has had good success in the past with utilizing movie prep. He also is very much interested in having monitored anesthesia care. He has had an opportunity to ask and have questions answered. We will schedule and proceed at his discretion. I very much appreciate the ongoing opportunity of assisting with his surgical c are CC: Dr. Brandon Jimenes M.D., F.A.C.S. Orders Orders: Colonoscopy Today R19.4 Medications New: aspirin (Adult Aspirin Regimen) 81 mg PO DAILY Coding Level of Care Code Exp prob focused,strt fwd Diagnoses Change in bowel habit R19.4 09/25/18 1246 <Electronically signed by William Jimenes MD> Date William Jimenes MD Cosigner Signature: Date (if applicable) CC: Brandon Cantor MD ~ I have re-examined the patient. There are no clinical changes since date of exam
[2018-10-12 07:04] VITALS: BP 139/74; PULSE 91; RESP 16; TEMP 36.8; O2SAT 98; BMI 29.5
--- NOTE | 2018-10-12 07:30 | COLBX_PTH ---
PATIENT: MARTA OLIVIA LOC: EN U#:[id number] AGE/SX: 73/M ROOM: RE10/12/[address]: Dr. William Jimenes MD : 1945 BED: DIS: 10/12/2018 SPEC #: [id number] RECD: 10/12/18 08:50 STATUS: RAY ANGEL #: [id number] BRITTNEY: 10/12/18 07:[address]: William Jimenes DEPT: SURGICAL PATHOLOGY RECD BY: Gene Huggins ENTERED: 10/12/18 09:41 SP TYPE: COLON BX OT DR: Dr. Brandon Cantor MD Tissues: COLON BIOPSY Procedures: Surgery Specimen Level IV HEADER OPERATION: Colonoscopy (MAC) PRE-OP DIAGNOSIS: Change in bowel habits TISSUE SUBMITTED: Random colon biopsies MICROSCOPIC DIAGNOSIS Colon, random biopsy: Fragments of colonic mucosa, no pathologic diagnosis. SJ:ra 10/15/18 MICROSCOPIC DESCRIPTION Slides are reviewed. GROSS DESCRIPTION Received in fixative is one container labeled with the patient's name and designated random colon biopsy. The specimen consists of multiple irregular fragments of light brandt soft tissue that in aggregate measure 1.5 x 1.5 x 0.1 cm. The specimen is totally submitted in one cassette. / SJ:rg 10/12/18 TC:4 CPT: 92071
[2018-10-12 07:50] VITALS: BP 122/75; BP 138/74; PULSE 72; RESP 16; TEMP 36.6; O2SAT 94
--- NOTE | 2018-10-12 07:54 | OP.ENDO_ITS ---
10/12/2018 Brandon Cantor [address] [place] [address] Re : Colonoscopy procedure for Rohan Hernandes Dear Dr. Cantor This procedure was performed on Friday, October 12, 2018. My impressions and recommendations are as follows: Impressions : - Hemorrhoids found on perianal exam. - Diverticulosis in the sigmoid colon and in the descending colon. - Patent end-to-end colo-rectal anastomosis. - Biopsies were taken with a cold forceps from the entire colon for evaluation of microscopic colitis. Patient has had a mild change of bowel habit Recommendations : - Discharge patient to home. - Resume previous diet. - Continue present medications. - Repeat colonoscopy in 5 years for surveillance. - Telephone my office for pathology results in 1 week. My findings are described in the full procedure note, which is enclosed. If I can be of further assistance, please feel free to contact me at Doctor phone number(s): Work: . Sincerely, William Jimenes MD 10/12/2018 7:53:46 AM This report has been signed electronically.
[2018-10-12 07:55] VITALS: BP 127/72; BP 138/74; PULSE 72; RESP 16; O2SAT 93
[2018-10-12 08:00] VITALS: BP 125/67; BP 138/74; PULSE 75; RESP 16; O2SAT 95
[2018-10-12 08:05] VITALS: BP 138/69; BP 138/74; PULSE 70; RESP 16; TEMP 36.4; O2SAT 93
[2018-10-12 08:35] VITALS: BP 138/74
== END 2018-10-12 08:45 | disposition home or self-care (01) ==
LOC: EN 06:45 → AC 06:46
PROVIDERS: Family Provider Internal Medicine; PCP Internal Medicine; Referring Provider Internal Medicine; Visit Provider Surgery
PROC: 0DJD8ZZ Inspection of Lower Intestinal Tract, Via Natural or Artificial Opening Endoscopic (ICD-10-PCS; CPT 45378; principal; 2018-10-12 07:25)
DX: R19.4 Change in bowel habit (principal); K57.30 Diverticulosis of large intestine without perforation or abscess without bleeding; K64.9 Unspecified hemorrhoids; Z86.010 Personal history of colon polyps; Z98.0 Intestinal bypass and anastomosis status; N40.0 Benign prostatic hyperplasia without lower urinary tract symptoms; J96.11 Chronic respiratory failure with hypoxia; E78.5 Hyperlipidemia, unspecified; I10 Essential (primary) hypertension; Z79.899 Other long term (current) drug therapy; Z79.82 Long term (current) use of aspirin; F32.9 Major depressive disorder, single episode, unspecified; M19.90 Unspecified osteoarthritis, unspecified site; Z87.891 Personal history of nicotine dependence; Z86.711 Personal history of pulmonary embolism
CPT/HCPCS: 45380; 88305; J7120

== ENCOUNTER → 2019-05-14 16:11 | Outpatient (CLI) | payer MEDICARE, SELFPAY ==
[2019-03-12 10:06] VITALS: BMI 29.5
[2019-05-14 18:03] LABS: PSA,Total - Annual Screen 2.23 ng/mL (0.00-4.00)
== END ==
PROVIDERS: Family Provider Internal Medicine; PCP Internal Medicine
DX: Z12.5 Encounter for screening for malignant neoplasm of prostate (principal)
CPT/HCPCS: 36415; 84153; G0103

== ENCOUNTER → 2020-06-09 16:14 | Outpatient (CLI) | payer MEDICARE, SELFPAY ==
[2019-03-12 10:06] VITALS: BMI 29.5
== END ==
PROVIDERS: PCP Internal Medicine; Referring Provider Nurse Practitioner Adult Health; Visit Provider Nurse Practitioner Adult Health
DX: Z12.5 Encounter for screening for malignant neoplasm of prostate (principal)
CPT/HCPCS: 36415; 84153; G0103

== ENCOUNTER → 2020-08-18 13:56 | Outpatient (CLI) | payer MEDICARE, SELFPAY ==
[2019-03-12 10:06] VITALS: BMI 29.5
== END ==
PROVIDERS: PCP Internal Medicine; Referring Provider Specialist; Visit Provider Specialist
DX: Z11.59 Encounter for screening for other viral diseases (principal)
CPT/HCPCS: 87635; C9803; U0002

== ENCOUNTER 2020-12-15 12:08 | Emergency (ER) | payer MEDICARE, SELFPAY ==
[2019-03-12 10:06] VITALS: BMI 29.5
[2020-12-15 12:08] VITALS: BP 122/64; PULSE 63; RESP 18; TEMP 36.7; O2SAT 95; BMI 29.9
--- NOTE | 2020-12-15 12:48 | CT_ITS ---
STUDY: CT BRAIN WITHOUT CONTRAST REASON FOR EXAM: Male, 75 years old. Vertigo RADIATION DOSAGE (If Supplied By Facility): CTDIvol = ( 38.43 ) mGy, DLP = ( 755.92 ) mGycm TECHNIQUE: Transaxial CT imaging of the brain was performed without administration of intravenous contrast material. Individualized dose optimization techniques were used for this CT. COMPARISON: Comparison is made with prior study dated 08/05/2018. FINDINGS: Normal soft tissue structures. Normal calvarium. There is mild cerebral atrophy with widening of the extra-axial spaces and ventricular dilatation. Normal white matter tracts of the cerebral hemispheres. Normal basal ganglia and thalami. Normal brainstem. Normal cerebellum. There is no intracranial hemorrhage. There are no findings of an acute ischemic infarction. Atherosclerotic calcification of the vertebral arteries and cavernous portions of the internal carotid arteries bilaterally. Stable 1.4 cm polyp or mucous retention cyst along the medial aspect of the left maxillary sinus. CT/Brain/Head without Contrast IMPRESSION: Chronic involutional changes of the brain. Electronically Signed: Cuong Reynolds MD at 13:40 EDT , Service support ,
--- NOTE | 2020-12-15 12:50 | EDS_ITS ---
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 He sat down and rested. He thinks he had this once before but it was years ago. He was referred to ENT. No history of stroke he takes baby aspirin every day but no anticoagulants. He denies any fall or injury. He did state that he fell sideways against some shelves but he did not injure himself. [facility] Medical History Acute respiratory failure with hypoxia Anxiety Anxiety BPH (benign prostatic hyperplasia) Change in bowel habit Chronic respiratory failure with hypoxia Closed right hip fracture Depression Diarrhea Fall HTN (hypertension) Hypercholesterolemia Hyperlipidemia Hypertension Osteoarthritis Polycythemia Pulmonary embolism Home Medications amlodipine 10 mg PO DAILY 01/12/17 [History Last Taken 10/12/18 05:45] paroxetine HCl 10 mg PO DAILY 01/12/17 [History Last Taken 01/11/18] pravastatin 20 mg PO QHS 01/12/17 [History Last Taken 01/10/18] lorazepam 1 mg tablet 1 mg PO PRN PRN 01/31/18 [History Last Taken Unknown] tamsulosin 0.4 mg capsule 0.4 mg PO DAILY 05/10/18 [History Last Taken Unknown] Tylenol 2 tab PO PRN PRN 08/05/18 [History Last Taken Unknown] aspirin 81 mg tablet,delayed release 81 mg PO DAILY 09/25/18 [History Last Taken 10/09/18] meloxicam 15 mg PO PRN PRN 10/09/18 [History Last Taken Unknown] hydrochlorothiazide 25 mg tablet 25 mg PO DAILY 03/12/19 [History Last Taken Unknown] meclizine 25 mg PO Q8H PRN PRN #16 tab 12/15/20 [Rx Last Taken Unknown] Allergy/AdvReac Type Severity Reaction Status Date / Time No Known Allergies Allergy Verified 12/15/20 12:11 Family History Father Lung cancer Mother Parkinsons Heart failure Surgical History H/O colonoscopy History of colon surgery History of rhinoplasty History of total right hip replacement reattachment of severed finger stoma reversal Social History household members: spouse housing: house 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al status: employed 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: [employer] pets and animals: Yes pets and animals: cat(s) and dog(s) Smoking Status: Former smoker quit date: 06/05/98 pack-years: 72 second hand exposure: No alcohol intake: never substance use type: does not use ROS ROS ED Constitutional Constitutional ED: Denies chills or fever(s) Eyes Eyes: Denies change in vision or diplopia ENT ENT ED: Reports other Details: No earache or tinnitus ; Denies rhinorrhea or sore throat Cardiovascular Cardiovascular: Denies chest pain or palpitations Respiratory/Chest Respiratory/Chest: Denies cough or dyspnea Gastrointestinal Gastrointestinal: Denies abdominal pain, diarrhea, nausea or vomiting Genitourinary Genitourinary ED: Denies dysuria or hematuria Musculoskeletal Musculoskeletal: Denies back pain or neck pain Integumentary Denies abscess or rash Neurologic Neurologic: Reports as per HPI and vertigo; Denies headache(s), paresthesias or weakness Psychiatric Psychiatric: Denies anxiety or suicidal thoughts EXAM Physical Exam Const Vital Signs: 12/15/20 12:08 Temperature 98.1 F Temperature Source Temporal Pulse Rate 63 Respiratory Rate 18 Blood Pressure 122/64 H Blood Pressure Mean 83 Pulse Ox 95 Oxygen Delivery Method Room Air Positive well nourished and well developed General Appearance ED: well developed and NAD HEENT Reports moist mucous membranes HEENT Narrative: Cerumen more on right, TMs normal bilaterally. No pain with pulling on the pinna or tragus. normocephalic and atraumatic Face and Sinus: sinuses nontender Eyes PERRL and EOMs intact bilaterally Neck full ROM and supple Resp normal respiratory effort and clear to auscultation bilaterally Cardio regular rate, regular rhythm and no murmurs GI non-tender and non-distended Auscultation: normoactive bowel sounds Palpation: soft Back/Spine no CVA tenderness General Back: other FROM Extremity normal to inspection General Extremety ED: Negative for edema, pulses abnormal or tenderness General Extremity: Negative for edema or pulses abnormal Neuro oriented x3, CN's II-XII intact bilaterally and no sensory deficits noted Neuro Narrative: Normal [id number]-[id number] and [id number] bilaterally. Normal Romberg. Downgoing toes. No clonus. Sensorium / Orientation: awake and alert Motor Exam: strength 5/5 throughout Skin no rashes or lesions noted and no wounds MDM MDM MDM Narrative Medical decision making narrative: I did a [place]-Hallpike and the patient bilaterally, he had no recurrence of any symptoms bilaterally. He feels fine even with standing, lying down. He was given meclizine while work-up was obtained and it is all within normal limits including CT of the head. He was reassured, I think because this was sudden onset and severe triggered by head movement, and resolved currently, I think less likely TIA and more likely perip heral in nature. We discussed reasons to return, given a prescription for meclizine to use as needed, he is comfortable with that plan and discharged home. Lab Data Attestation: I reviewed the patient's lab results. Labs: Laboratory Results - last 24 hr 12/15/20 12/15/20 13:05 13:05 WBC 6.9 RBC 5.75 Hgb 17.4 H Hct 51.3 MCV 89.2 MCH 30.3 MCHC 33.9 RDW Std Deviation 45.3 H RDW Coeff of Daisy 13.9 Plt Count 178 MPV 12.3 H Immature Gran % (Auto) 0.300 Neut % (Auto) 72.4 H Lymph % (Auto) 14.3 L Harmon % (Auto) 10.2 H Eos % (Auto) 2.2 Baso % (Auto) 0.6 Absolute Neuts (auto) 5.0 Absolute Lymphs (auto) 0.98 Nucleated RBC % 0 Sodium 139 Potassium 3.5 Chloride 103 Carbon Dioxide 32.0 Anion Gap 4 L BUN 24 H Creatinine 1.12 Estim Creat Clear Calc 58.84 Est GFR (MDRD) Af Amer 82 Est GFR (MDRD) Non-Af 68 BUN/Creatinine Ratio 21.4 H Glucose 101 Calcium 9.4 Radiography Diagnostic Testing: Radiology Impression Brain CT 12/15/20 12:48 IMPRESSION: Chronic involutional changes of the brain. Electronically Signed: Cuong Reynolds MD at 13:40 EDT , Service support , Discharge Plan Triage Chief Complaint: Upper Extremity Injury ED Provider: Henry Andrade Dx/Rx/DC Orders Clinical Impression: Peripheral vertigo, unspecified Instructions: ED Vertigo, Unspecified Prescriptions: New meclizine [meclizine] 25 MG tablet 25 mg PO Q8H PRN PRN (Reason: Dizziness) Qty: 16 RF: 0 No Action lorazepam 1 mg tablet 1 mg PO PRN PRN (Reason: Anxiety) RF: 0 tamsulosin [Flomax] 0.4 mg capsule 0.4 mg PO DAILY RF: 0 hydrochlorothiazide 25 mg tablet 25 mg PO DAILY RF: 0 aspirin [Adult Aspirin Regimen] 81 mg tablet,delayed release (DR/EC) 81 mg PO DAILY RF: 0 paroxetine HCl 10 MG tablet 10 mg PO DAILY RF: 0 amlodipine 10 MG tablet 10 mg PO DAILY RF: 0 pravastatin 20 MG tablet 20 mg PO QHS RF: 0 Tylenol 500 MG tablet 2 tab PO PRN PRN (Reason: Pain) RF: 0 meloxicam 15 MG tablet 15 mg PO PRN PRN (Reason: Pain) RF: 0 Primary Care Provider: Brandon Cantor Referrals: Brandon Cantor MD [Primary Care Provider] - 3-5 Days Disposition Disposition: Home, Self Care
[2020-12-15] MEDS: Meclizine HCl 25 MG Tablet PO (13:09)
[2020-12-15 13:18] LABS: Absolute Lymphocyte Count 0.98 X10^3/uL (0.83-4.51); Basophil# 0.04 X10^3/uL; Basophil% 0.6 % (0-1); Eosinophil# 0.15 X10^3/uL; Eosinophils% 2.2 % (0-5); Hematocrit 51.3 % (40-54); Hemoglobin 17.4 g/dL (13.0-16.5); Lymphocyte # 0.98 X10^3/ul (0.83-4.51); Lymphocyte % 14.3 % (19-41); Mean Corp Hgb Conc 33.9 g/dL (32-36); Mean Corpuscular Hgb 30.3 pg (27.0-32.0); Mean Corpuscular Volume 89.2 fL (80-94); Mean Platelet Vol. 12.3 fl (6.2-12.0); Monocyte% 10.2 % (0-10); NRBC Flagged by Analyzer 0 % (0-5); Neutrophil # 4.98 X10^3/uL (2.7-7.7); Neutrophil % 72.4 % (47-70); Platelet Count 178 K/mm3 (150-450); RBC Distribution Width CV 13.9 % (11.6-14.6); RBC Distribution Width SD 45.3 fl (35.1-43.9); Red Blood Count 5.75 M/mm3 (4.6-6.2); White Blood Count 6.9 K/mm3 (4.4-11.0)
[2020-12-15 13:24] LABS: Anion Gap 4 (5-15); BUN 24 mg/dL (7-18); BUN/Creat Ratio 21.4 RATIO (10-20); Calcium,Total 9.4 mg/dL (8.5-10.1); Chloride 103 mmol/L (98-107); Creatinine, Serum 1.12 mg/dL (0.70-1.30); EST Glomerular Filtration Rate 68 mL/min (>60); Est Glom Filt Rate - Afr Amer 82 mL/min (>60); Estimated Creatinine Clearance 58.84 ml/min; Glucose 101 mg/dL (74-106); Potassium 3.5 mmol/L (3.5-5.1); Sodium Level 139 mmol/L (136-145)
== END 2020-12-15 15:54 | disposition home or self-care (01) ==
PROVIDERS: Emergency Provider Emergency Medicine; PCP Internal Medicine
DX: H81.399 Other peripheral vertigo, unspecified ear (principal); Z87.891 Personal history of nicotine dependence
CPT/HCPCS: 70450; 80048; 85025; 99283; A4216

== ENCOUNTER 2021-04-15 07:00 | Emergency (ER) | payer MEDICARE, SELFPAY ==
[2021-04-15 07:01] VITALS: BP 143/72; PULSE 61; RESP 15; TEMP 36.4; O2SAT 94; BMI 28.7
--- NOTE | 2021-04-15 07:27 | EDS_ITS ---
HPI History of Present Illness Chief Complaint: Complaint Informant: patient Onset/Context/Timing Onset: Days (4) Context: Gradual Onset Timing: Continuous Quality: Pressure, urgency Location: Suprapubic Worsened by: Nothing Relieved by: Nothing Narrative Narrative: Patient presents with urinary retention that has been getting worse over the past 4 days. Patient states that he has only been able to urinate small amounts over the last 4 days. Patient admits to some pressure over the suprapubic area. Patient states it radiates into his low back. Patient admits to some urinary urgency. Patient denies any dysuria or hematuria. Patient denies any fevers or chills. Patient denies any nausea or vomiting. [facility] Medical History Acute respiratory failure with hypoxia Anxiety Anxiety Arthritis BPH (benign prostatic hyperplasia) Change in bowel habit Chronic respiratory failure with hypoxia Closed right hip fracture Depression Diarrhea Fall HTN (hypertension) Hypercholesterolemia Hyperlipidemia Hypertension Osteoarthritis Polycythemia Pulmonary embolism Skin cancer Home Medications paroxetine HCl 10 mg PO DAILY 01/12/17 [History Last Taken 01/11/18] lorazepam 1 mg tablet 1 mg PO PRN PRN 01/31/18 [History Last Taken Unknown] tamsulosin 0.4 mg capsule 0.4 mg PO DAILY 05/10/18 [History Last Taken Unknown] Tylenol 2 tab PO PRN PRN 08/05/18 [History Last Taken Unknown] aspirin 81 mg tablet,delayed release 81 mg PO DAILY 09/25/18 [History Last Taken 10/09/18] meloxicam 15 mg PO PRN PRN 10/09/18 [History Last Taken Unknown] hydrochlorothiazide 25 mg tablet 25 mg PO DAILY 03/12/19 [History Last Taken Unknown] atorvastatin 20 mg PO DAILY 04/15/21 [History Last Taken Unknown] metoprolol tartrate 25 mg PO BID 04/15/21 [History Last Taken Unknown] potassium chloride 20 meq PO DAILY 04/15/21 [History Last Taken Unknown] Allergy/AdvReac Type Severity Reaction Status Date / Time No Known Allergies Allergy Verified 04/15/21 07:03 Family History Father Lung cancer Mother Parkinsons Heart failure Surgical History H/O colonoscopy History of colon surgery History of rhinoplasty History of total right hip replacement reattachment of severed finger stoma reversal Social History household members: spouse housing: house 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al status: employed 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: [employer] pets and animals: Yes pets and animals: cat(s) and dog(s) Smoking Status: Former smoker quit date: 06/05/98 pack-years: 72 second hand exposure: No alcohol intake: never substance use type: does not use ROS ROS ED Constitutional Constitutional ED: Denies chills or fever(s) Eyes Eyes: Denies blurry vision or change in vision ENT ENT ED: Denies rhinorrhea or sore throat Cardiovascular Cardiovascular: Denies chest pain or palpitations Respiratory/Chest Respiratory/Chest: Denies cough or dyspnea Gastrointestinal Gastrointestinal: Denies nausea or vomiting Genitourinary Genitourinary ED: Reports as per HPI and urinary urgency; Denies dysuria or hematuria Musculoskeletal Musculoskeletal: Reports neck pain; Denies back pain Integumentary Denies abscess or rash Neurologic Neurologic: Denies headache(s) or weakness Allergic/Immunologic Allergic/Immunologic ED: Denies mouth swelling or urticaria EXAM Physical Exam Const Vital Signs: 04/15/21 07:01 Temperature 97.6 F L Temperature Source Temporal Pulse Rate 61 Respiratory Rate 15 Blood Pressure 143/72 H Blood Pressure Mean 95 Pulse Ox 94 Oxygen Delivery Method Room Air Positive well nourished and well developed General Appearance ED: well developed HEENT Reports moist mucous membranes Neck supple and no JVD GI normal to inspection, nondistended, normoactive bowel sounds Palpation: soft and tender suprapubic; Negative for guarding or rebound tenderness present Bladder / Kidney Exam: bladder abnormal to palpation distended to the umbilicus Extremity normal to inspection Neuro oriented x3, CN's II-XII intact bilaterally and no sensory deficits noted Sensorium / Orientation: alert Motor Exam: strength 5/5 throughout Psych mental status grossly normal MDM MDM MDM Narrative Medical decision making narrative: Urinalysis was obtained. There is no evidence of urinary tract infection. Crawford catheter was inserted. There was a return of 1000 cc of urine initially. Patient feels better on reevaluation. Patient was given a leg bag for his Crawford catheter. Patient was instructed to follow-up with Dr. Connolly in 1-2 days. Patient understood and was agreeable with the plan. All questions were answered. Lab Data Attestation: I reviewed the patient's lab results. Labs: Laboratory Results - last 24 hr 04/15/21 07:30 Urine Color Yellow Urine Clarity Sl. Cloudy Urine pH 5.0 Ur Specific Clayton 1.020 Urine Protein Negative Urine Glucose (UA) Normal Urine Ketones Negative Urine Occult Blood 25 H Urine Nitrite Negative Urine Bilirubin Negative Urine Urobilinogen Normal Ur Leukocyte Esterase Negative Urine RBC 0-5 SEEN Urine WBC 0 SEEN Ur Squamous Epith Cells 0 SEEN Urine Bacteria 0 SEEN Urine Mucus 0 SEEN Discharge Plan Triage Chief Complaint: Complaint ED Provider: Jaspreet Cummins Dx/Rx/DC Orders Clinical Impression: Acute urinary retention Instructions: ED Crawford Catheter, Care, ED Urinary Retention, Male Prescriptions: No Action lorazepam 1 mg tablet 1 mg PO PRN PRN (Reason: Anxiety) RF: 0 tamsulosin [Flomax] 0.4 mg capsule 0.4 mg PO DAILY RF: 0 hydrochlorothiazide 25 mg tablet 25 mg PO DAILY RF: 0 aspirin [Adult Aspirin Regimen] 81 mg tablet,delayed release (DR/EC) 81 mg PO DAILY RF: 0 paroxetine HCl 10 MG tablet 10 mg PO DAILY RF: 0 Tylenol 500 MG tablet 2 tab PO PRN PRN (Reason: Pain) RF: 0 meloxicam 15 MG tablet 15 mg PO PRN PRN (Reason: Pain) RF: 0 potassium chloride 10 mEq capsule, extended release 20 meq PO DAILY RF: 0 atorvastatin 20 mg tablet 20 mg PO DAILY RF: 0 metoprolol tartrate 25 mg tablet 25 mg PO BID RF: 0 Primary Care Provider: Brandon Cantor Referrals: Gio Cononlly MD [STAFF PHYSICIAN] - 1 Day Brandon Cantor MD [Primary Care Provider] - 5-7 Days Disposition Disposition: Home, Self Care
--- NOTE | 2021-04-15 07:39 | ED.RN ---
PER DR. NATALIA PRABHAKAR TO D/C SEPSIS SCREEN.
[2021-04-15 07:46] LABS: Bacteria 0 SEEN /hpf (None Seen); Mucous, Urine 0 SEEN /hpf (<or=2+); Squamous Epithelial Cells - UA 0 SEEN /hpf (0-5); White Blood Cells 0 SEEN /hpf (0-5)
[2021-04-15 08:07] LABS: Color, Urine Yellow (Yellow); Glucose, Dipstick Normal (Normal); Ketone-Dipstick Negative (Negative); Leukocyte Esterase-Dipstick Negative /ul (Negative); Nitrite-Dipstick Negative (Negative); Occult Blood-Urine 25 /ul (Negative); Protein-Dipstick Negative (Negative); Urine Bilirubin Dipstick Negative (Negative); Urine Clarity Sl. Cloudy (Clear); Urine Urobilinogen Normal (Normal)
[2021-04-15 08:25] LABS: Red Blood Cells-Urine 0-5 SEEN /hpf (0-5)
[2021-04-15 09:19] VITALS: PULSE 89; RESP 18
[2021-04-15 09:20] VITALS: PULSE 89; RESP 18
== END 2021-04-15 09:20 | disposition home or self-care (01) ==
PROVIDERS: Emergency Provider Emergency Medicine; PCP Internal Medicine
DX: N40.1 Benign prostatic hyperplasia with lower urinary tract symptoms (principal); R33.8 Other retention of urine; I10 Essential (primary) hypertension; E78.00 Pure hypercholesterolemia, unspecified; F32.9 Major depressive disorder, single episode, unspecified; F41.9 Anxiety disorder, unspecified; Z79.82 Long term (current) use of aspirin; Z79.899 Other long term (current) drug therapy; Z87.891 Personal history of nicotine dependence
CPT/HCPCS: 51702; 81001; 99283

== ENCOUNTER 2021-05-14 08:10 | Day surgery (SDC) | payer MEDICARE, SELFPAY ==
--- NOTE | 2021-05-10 13:44 | EKG12_ITS ---
Test Reason : PREOP Blood Pressure : / mmHG Vent. Rate : 070 BPM Atrial Rate : 070 BPM P-R Int : 190 ms QRS Dur : 100 ms QT Int : 408 ms P-R-T Axes : 061 014 063 degrees QTc Int : 440 ms Normal sinus rhythm Normal ECG Confirmed by NEERAJ DIMAS, DEAN ([id number]), image editor JESE MENDOZA ([id number]) on 05/11/2021 10:00:46 AM Referred By: Gio Connolly Confirmed By:DEAN PICKARD MD
[2021-05-10 14:17] LABS: Hematocrit 50.1 % (40-54); Hemoglobin 17.3 g/dL (13.0-16.5); Mean Corp Hgb Conc 34.5 g/dL (32-36); Mean Corpuscular Hgb 30.7 pg (27.0-32.0); Mean Corpuscular Volume 88.8 fL (80-94); Mean Platelet Vol. 12.4 fl (6.2-12.0); Platelet Count 115 K/mm3 (150-450); RBC Distribution Width CV 13.7 % (11.6-14.6); RBC Distribution Width SD 44.6 fl (35.1-43.9); Red Blood Count 5.64 M/mm3 (4.6-6.2); White Blood Count 7.6 K/mm3 (4.4-11.0)
[2021-05-10 15:01] LABS: Anion Gap 4 (5-15); BUN 35 mg/dL (7-18); BUN/Creat Ratio 28.7 RATIO (10-20); Calcium,Total 10.3 mg/dL (8.5-10.1); Chloride 103 mmol/L (98-107); Creatinine, Serum 1.22 mg/dL (0.70-1.30); EST Glomerular Filtration Rate 61 mL/min (>60); Est Glom Filt Rate - Afr Amer 74 mL/min (>60); Glucose 103 mg/dL (74-106); Sodium Level 140 mmol/L (136-145)
--- NOTE | 2021-05-13 | PROS_PTH ---
PATIENT: MARTA OLIVIA LOC: [facility] – [place] U#:[id number] AGE/SX: 75/M ROOM: RE05/14/[address]: Dr. Gio Connolly MD : 1945 BED: DIS: 05/15/2021 SPEC #: [id number] RECD: 05/14/21 12:15 STATUS: RAY ORTIZ #: [id number] BRITTNEY: 05/13/21 00:[address]: Gio Connolly DEPT: SURGICAL PATHOLOGY RECD BY: Juan C Fajardo ENTERED: 05/14/21 12:15 SP TYPE: TURP OTHR DR: Dr. Brandon Cantor MD Tissues: Prostate, NOS Procedures: Surgery Specimen Level IV HEADER OPERATION: Cysto, TUR prostate, Olympus PRE-OP DIAGNOSIS: Retention of urine, BPH TISSUE SUBMITTED: Prostate tissue MICROSCOPIC DIAGNOSIS Prostate, transurethral resection: Benign nodular hyperplasia, glandular and stromal types. Chronic inflammation. AM:ra 05/17/2021 MICROSCOPIC DESCRIPTION Slides are reviewed. GROSS DESCRIPTION Received is one container labeled with the patient's name and designated prostate tissue. The specimen consists of multiple irregular fragments of pink-brandt, rubbery, soft tissue that in aggregate weigh 5.2 gm and measure in aggregate 6 x 5 x 0.3 cm. The entire specimen is submitted in three cassettes. / AM:ra 05/14/21 TC:3 CPT: 85964
[2021-05-14] VITALS (12 sets, daily range): BP systolic 116–160; BP diastolic 55–75; PULSE 59–90; RESP 16–18; TEMP 35.9–37.2; O2SAT 93–99; BMI 27.3
[2021-05-14] MEDS: Lactated Ringers 1,000 ML 15 ML IV (08:48)
--- NOTE | 2021-05-14 09:49 | HP.PCM_ITS ---
HPI - General HPI Narrative MARTA OLIVIA, is a 75 M who presents with retention of Urine from BPH, plan for a TURP [facility] Medical History (Updated 05/07/21 @ 10:01 by Anna Bourgeois) Acute respiratory failure with hypoxia Anxiety Anxiety Anxiety Arthritis Arthritis Back pain BPH (benign prostatic hyperplasia) Cancer Cardiology follow-up encounter Change in bowel habit Chronic respiratory failure with hypoxia Closed right hip fracture Depression Depression Diarrhea Difficulty swallowing Fall Former smoker Heartburn History of echocardiogram History of edema History of pain when walking Hypercholesterolemia Hyperlipidemia Hypertension Hypertension Indwelling urethral catheter present Leg cramps Osteoarthritis Polycythemia Prostate disease Pulmonary embolism Pulmonary embolism Shortness of breath on exertion Skin cancer Syncope Wears dentures Wears glasses Home Medications paroxetine HCl 20 mg PO DAILY 01/12/17 [History Last Taken 01/11/18] lorazepam 1 mg tablet 1 mg PO PRN PRN 01/31/18 [History Last Taken Unknown] Tylenol 2 tab PO PRN PRN 08/05/18 [History Last Taken Unknown] meloxicam 15 mg PO PRN PRN 10/09/18 [History Last Taken Unknown] hydrochlorothiazide 25 mg tablet 25 mg PO DAILY 03/12/19 [History Last Taken U nknown] atorvastatin 20 mg PO DAILY 04/15/21 [History Last Taken Unknown] metoprolol tartrate 25 mg PO BID 04/15/21 [History Last Taken 05/14/21] potassium chloride 10 meq PO DAILY 04/15/21 [History Last Taken Unknown] sulfamethoxazole-trimethoprim [Bactrim DS] 1 tab PO BID #10 tab 05/14/21 [Rx Last Taken Unknown] Allergy/AdvReac Type Severity Reaction Status Date / Time No Known Allergies Allergy Verified 05/14/21 08:33 Family History Father Lung cancer Mother Parkinsons Heart failure Surgical History (Updated 05/07/21 @ 10:01 by Anna Bourgeois) H/O colonoscopy History of cardiac catheterization History of colon surgery History of rhinoplasty History of total right hip replacement reattachment of severed finger stoma reversal Social History household members: spouse housing: house 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al status: employed 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: [employer] pets and animals: Yes pets and animals: cat(s) and dog(s) Smoking Status: Former smoker quit date: 06/05/98 pack-years: 72 second hand exposure: No alcohol intake: never substance use type: does not use Vital Signs Vital Signs Vital Signs: 05/14/21 08:34 Temperature 97.8 F Temperature Source Temporal Pulse Rate 77 Respiratory Rate 18 Respiratory Pattern Normal Blood Pressure 133/75 H Blood Pressure Mean 94 Blood Pressure Source Monitor Blood Pressure Position Semi-Fowlers Blood Pressure Location Right Arm Pulse Ox 95 Oxygen Delivery Method Room Air Weight Weight: 87.9 kg Body Mass Index (BMI) 27.3 Results Lab / Micro Data Result Diagrams: 05/10/21 13:56 05/10/21 13:56
--- NOTE | 2021-05-14 09:50 | PCM.DC ---
Discharge Instructions Diet Discharge Diet: No restrictions Activity Discharge Activity: Return to Normal Activity and May Not Drive (while taking narcotic pain medications.) Dressing / Incision Call your doctor if you observe: Fever of 101 or Higher Follow Up Care Please Follow Up With: Gio Connolly MD When: Call [phone] for an appointment Test Results: Test results from this visit will be discussed in further detail at your follow-up appointment, if applicable. Discharge Plan Admission Primary Reason for Your Visit: BRANDEN Attending Provider: Gio Connolly Primary Care Provider: Brandon Cantor Instructions Patient Instructions: VIRGILIO Home Recovery Discharge Orders/Prescriptions Prescriptions: New sulfamethoxazole-trimethoprim [Bactrim DS] 800-160 mg tablet 1 tab PO BID Qty: 10 RF: 0 Continued lorazepam 1 mg tablet 1 mg PO PRN PRN (Reason: Anxiety) RF: 0 hydrochlorothiazide 25 mg tablet 25 mg PO DAILY RF: 0 paroxetine HCl 10 MG tablet 20 mg PO DAILY RF: 0 Tylenol 500 MG tablet 2 tab PO PRN PRN (Reason: Pain) RF: 0 meloxicam 15 MG tablet 15 mg PO PRN PRN (Reason: Pain) RF: 0 potassium chloride 10 mEq capsule, extended release 10 meq PO DAILY RF: 0 atorvastatin 20 mg tablet 20 mg PO DAILY RF: 0 metoprolol tartrate 25 mg tablet 25 mg PO BID RF: 0 Discontinued tamsulosin [Flomax] 0.4 mg capsule 0.4 mg PO DAILY RF: 0 aspirin [Adult Aspirin Regimen] 81 mg tablet,delayed release (DR/EC) 81 mg PO DAILY RF: 0 Referrals / Follow Up: Gio Connolly MD [STAFF PHYSICIAN] - Brandon Cantor MD [Primary Care Provider] - Disposition Disposition (needs filled in before D/C Order can be placed): Home, Self Care
--- NOTE | 2021-05-14 10:30 | PCM.OPRPT ---
Report of Operation Date of Procedure: 05/14/21 Pre-Operative Diagnosis: BPH with obstruction urinary retention and large bladder diverticulum Post-Operative Diagnosis: Same Surgery/Procedure Performed:: Transurethral section of the prostate Description of Surgical Findings:: 75-year-old male was found to have retention of urine and large bladder diverticulum and BPH with obstruction today we will proceed with a transurethral resection of the prostate he understands that with this procedure hopefully be able to restore normal voiding but we still may need to operate on his bladder diverticulum in the future to remove this to improve his emptying if this does not help enough. Patient was taken back to the operating room after smooth duction of general anesthesia he was placed in dorsolithotomy position. Penis and testicles are prepped and draped in usual sterile fashion with the bladder with a 26 [place] continuous-flow resectoscope identified the verumontanum identified the left and right ureteral orifice the bladder neck and the prostate I then used the resectoscope and resected the prostate down to the capsule all the way around it was a short length prostate with a very obstructive inside the bladder he had a very distended bladder and a very large bladder diverticulum in the posterior wall the bladder. I cauterized the prostate obtain hemostasis we put a catheter in the bladder and continuous irrigation and tomorrow remove the catheter for a voiding trial. Surgeon: heidi Type of Anesthesia: General Drains: 22fr 3 way Admit VTE Documentation VTE Present on Admission: No VTE Mechan Device Prophylaxis: SCD's VTE Pharm Prophylaxis ordered?: No
[2021-05-14] MEDS: Potassium Chloride Oral Tablet 10 MEQ PO (14:30)
[2021-05-14] MEDS: Atorvastatin Calcium 20 MG Tablet PO (15:48)
[2021-05-14] MEDS: Paroxetine 20 MG Tablet PO (15:48)
[2021-05-14] MEDS: hydroCHLOROthiazide 25 MG Tablet PO (15:48)
[2021-05-14] MEDS: Smz/Tmp Ds Tablet 1 TABLET PO (18:34)
[2021-05-14] MEDS: Metoprolol Tartrate 25 MG Tablet PO (21:47)
[2021-05-15 01:40] VITALS: BP 127/68; PULSE 86; RESP 16; TEMP 36.8; O2SAT 94
[2021-05-15] MEDS: Acetaminophen 500 MG Tablet 1000 MG PO (05:27)
[2021-05-15 05:30] VITALS: BP 143/76; PULSE 70; RESP 16; TEMP 37; O2SAT 96
[2021-05-15 07:35] VITALS: BP 138/61; PULSE 81; RESP 16; TEMP 36.6; O2SAT 92
[2021-05-15] MEDS: Smz/Tmp Ds Tablet 1 TABLET PO (07:57)
--- NOTE | 2021-05-15 08:11 | NURSING ---
catheter removed per order
[2021-05-15] MEDS: hydroCHLOROthiazide 25 MG Tablet PO (10:44)
[2021-05-15] MEDS: Atorvastatin Calcium 20 MG Tablet PO (10:45)
[2021-05-15 10:46] VITALS: PULSE 81
[2021-05-15] MEDS: Paroxetine 20 MG Tablet PO (10:46)
[2021-05-15] MEDS: Metoprolol Tartrate 25 MG Tablet PO (10:46)
[2021-05-15 14:10] VITALS: BP 137/66; PULSE 76; RESP 16; TEMP 36.7; O2SAT 96
== END 2021-05-15 14:21 | disposition home or self-care (01) ==
LOC: SDC 08:13 → AC 09:47 → MS3 05-17 12:48
PROVIDERS: Anesthesiology; PCP Internal Medicine; Referring Provider Urology; Visit Provider Urology
PROC: (CPT 52601; principal; 2021-05-14 10:05)
DX: N40.1 Benign prostatic hyperplasia with lower urinary tract symptoms (principal); R33.8 Other retention of urine; N13.8 Other obstructive and reflux uropathy; N32.3 Diverticulum of bladder; F41.9 Anxiety disorder, unspecified; M19.90 Unspecified osteoarthritis, unspecified site; F32.A Depression, unspecified; I10 Essential (primary) hypertension; E78.5 Hyperlipidemia, unspecified; Z87.891 Personal history of nicotine dependence; Z79.899 Other long term (current) drug therapy; Z79.82 Long term (current) use of aspirin
CPT/HCPCS: 00914; 52601; 36415; 80048; 85027; 88305; 93005; J7120; J2405

== ENCOUNTER 2021-07-10 09:41 | Outpatient (CLI) | payer MEDICARE, SELFPAY ==
--- NOTE | 2021-07-10 09:50 | CT_ITS ---
STUDY: CT RIGHT LOWER EXTREMITY WITHOUT CONTRAST REASON FOR EXAM: Right knee osteoarthritis, surgical planning. TECHNIQUE: Transaxial CT imaging of the lower extremity was performed. Coronal and sagittal images were reformatted. Individualized dose optimization techniques were used for this CT. COMPARISON: None. FINDINGS: Knee: There are small marginal osteophytes, mild subchondral cystic change, eburnation and severe joint space narrowing (coronal reconstruction 30). There are small central osteophytes of the lateral femorotibial compartment. There are marginal osteophytes and joint space narrowing of the patellofemoral compartment (axial image 276). There is vascular calcification. Hip: There is a right hip arthroplasty with heterotopic ossification at the lateral aspect (coronal reconstructions 51-68). There is prostatic enlargement. Ankle: Normal tibiotalar, posterior subtalar and talonavicular articulations. There is a small posterior calcaneal enthesophyte. CT/Extremity Lower without Contra IMPRESSION: Right knee osteoarthritis. Electronically Signed: Naresh John MD at 14:51 EST ,
== END 2021-07-10 23:59 | disposition home or self-care (01) ==
LOC: CT 09:46
PROVIDERS: PCP Internal Medicine; Visit Provider Specialist
DX: M21.161 Varus deformity, not elsewhere classified, right knee (principal); M17.11 Unilateral primary osteoarthritis, right knee
CPT/HCPCS: 73700

== ENCOUNTER 2021-07-21 10:50 | Observation (INO) | payer MEDICARE, SELFPAY ==
[2021-07-10 10:07] LABS: Absolute Lymphocyte Count 0.91 X10^3/uL (0.83-4.51); Absolute Neutrophil Count 5.9 X10^3/uL (2.0-7.7); Basophil# 0.05 X10^3/uL; Basophil% 0.7 % (0-1); Eosinophils% 1.3 % (0-5); Hemoglobin 16.8 g/dL (13.0-16.5); Lymphocyte # 0.91 X10^3/ul (0.83-4.51); Lymphocyte % 12.1 % (19-41); Mean Corp Hgb Conc 34.3 g/dL (32-36); Mean Corpuscular Hgb 30.8 pg (27.0-32.0); Mean Corpuscular Volume 89.7 fL (80-94); Mean Platelet Vol. 11.3 fl (6.2-12.0); Monocyte# 0.52 X10^3/uL; Monocyte% 6.9 % (0-10); NRBC Flagged by Analyzer 0 % (0-5); Neutrophil % 78.7 % (47-70); Platelet Count 189 K/mm3 (150-450); RBC Distribution Width CV 13.8 % (11.6-14.6); RBC Distribution Width SD 45.5 fl (35.1-43.9); Red Blood Count 5.46 M/mm3 (4.6-6.2); White Blood Count 7.5 K/mm3 (4.4-11.0)
--- NOTE | 2021-07-10 10:10 | RAD_ITS ---
STUDY: X-RAY CHEST REASON FOR EXAM: Male, 76 years old. PREOP TECHNIQUE: COMPARISON: None. FINDINGS: The lungs are clear and expanded. There is no demonstrated pleural abnormality. Normal size heart. Normal mediastinum and zach. Normal visualized pulmonary arteries. Normal visualized aortic arch and descending thoracic aorta. Normal visualized thoracic spine. Normal visualized ribs, clavicles, and shoulders. There is no demonstrated abnormality of the visualized soft tissue structures of the upper abdomen. RAD/Chest PA and Lateral IMPRESSION: Normal x-ray examination of the chest. Electronically Signed: Jose Armando Rios MD at 10:31 EST ,
[2021-07-10 11:17] LABS: Albumin, Serum 3.6 g/dL (3.2-5.0); Anion Gap 5 (5-15); BUN 20 mg/dL (7-18); BUN/Creat Ratio 17.4 RATIO (10-20); Calcium,Total 8.9 mg/dL (8.5-10.1); Chloride 103 mmol/L (98-107); Creatinine, Serum 1.15 mg/dL (0.70-1.30); EST Glomerular Filtration Rate 66 mL/min (>60); Est Glom Filt Rate - Afr Amer 80 mL/min (>60); Glucose 109 mg/dL (74-106); Potassium 3.5 mmol/L (3.5-5.1); Sodium Level 140 mmol/L (136-145)
[2021-07-21] VITALS (12 sets, daily range): BP systolic 91–125; BP diastolic 46–78; PULSE 55–80; RESP 16–18; TEMP 36.5–37.1; O2SAT 91–97; BMI 28.1
[2021-07-21 08:46] LABS: Bedside Glucose 99 mg/dL (70-110)
[2021-07-21] MEDS: Lactated Ringers 1,000 ML 999 ML IV ×2 (09:04→12:45)
[2021-07-21] MEDS: Gabapentin 600 MG Tablet PO (09:11)
[2021-07-21] MEDS: Acetaminophen 500 MG Tablet 1000 MG PO ×3 (09:11→20:16)
[2021-07-21] MEDS: Celecoxib 200 MG Capsule 400 MG PO (09:11)
[2021-07-21] MEDS: Cefazolin 2 GM in 0.9% Normal Saline 100 ML IV (10:52)
[2021-07-21] MEDS: dexAMETHasone 10 MG/ML Vial IV (10:52)
--- NOTE | 2021-07-21 11:56 | PCM.OPRPT ---
Report of Operation Date of Procedure: 07/21/21 Pre-Operative Diagnosis: Right knee primary osteoarthritis Post-Operative Diagnosis: Right knee primary osteoarthritis Surgery/Procedure Performed:: Right minimally invasive robotic total knee replacement Description of Surgical Findings:: Stable knee with good patella tracking Surgeon: Jabari Phan siebel administrator: Michael Diaz Type of Anesthesia: Spinal Anesthesiologist: Frashad Mcclure Special Medications: 2 g Ancef, 2 g TXA lavage, 10 mg Decadron, joint cocktail (5 mg Duramorph, 30 mL of 0.5% Ropivicaine, 1000 units of epinephrine, 30 mg of Toradol) Specimen's removed: Bony cuts Estimated Blood Loss (mL): 150 Fluids Replaced: 1000 mL crystalloid Description of Procedure: Implants used: 1. Linda size 6 triathlon cruciate retaining distal femoral press-fit component 2. [place] size 7 press-fit tritanium tibial baseplate 3. [place] X3 9 mm CS polyethylene 4. Linda X3 40 mm asymmetric patella Brief history operative indications: 76-year-old male with history of right knee osteoarthritis with radiographic findings with loss of joint space, osteophyte formation and subchondral sclerosis. Failed conservative measures as mentioned in the H&P. Discussion of total knee arthroplasty as well as risk and benefits were discussed the patient including but not limited to blood loss, DVTs, PEs, neurovascular damage, general risk of anesthesia including loss of life, and stiffness or instability were discussed with patient. Patient demonstrated understanding and was able to sign informed consent. Procedure: On the date of procedure patient's right lower extremity was marked in the preoperative area. The patient was then taken back to the operating room where the patient was placed on the table in the supine position. All bony prominences were identified a well-padded. Anesthesia assumed control of the C-spine and airway and remained controlled throughout the remainder of the procedure. A tourniquet was placed on the right upper thigh and the leg was prepped in a sterile fashion. The surgeon then scrubbed at this time .Upon reentering the room right lower extremity was draped in a standard orthopedic fashion. A timeout was then called and everyone agreed upon the side, the site, the procedure to be performed, patient's identity and antibiotics given. Esmarch bandage was used to exsanguinate the extremity and the tourniquet was placed up to 250 mmHg with the knee in flexion. A midline skin incision was made and sharp dissection was taken down through skin subcutaneous tissue and fat. The standard medial parapatellar incision was made and the patella was subluxed laterally. An Appropriate deep MCL release was done and the fat pad was resected. Our attention was then directed to the patella. The patella was everted and a flat resection was made. The knee was then flexed up in 2 femoral pins were placed inside the incision and 2 tibial pins were placed outside the incision in the medial tibia bicortically. Once this was completed the 2 checkpoints in the femur and tibia were placed. Knee was then flexed up and the bony landmarks were registered. Once this was completed knee was taken through range of motion and manually stressed allowing us to a plan for an appropriate tibial cut. The robotic arm was brought into the field sterilely and checkpoint and saw were registered. Based on the patient's deformity the tibial cut was made in 3 degrees varus. At this time the tensioner was then placed in the joint and ligament tension was checked at 90 degrees and full extension. Based on the patient's ligamentous tension appropriate adjustments were made to the operative plan and ligament releases were done. Once we were happy with our operative plan with balanced flexion and extension gaps our attention was directed to the femur. The robot was brought into the field sterilely and registered. Posterior condylar cuts, anterior chamfer cuts and anterior cuts were appropriately made for a size 6 femur. When these were completed the saws were switched out in the distal femoral and posterior chamfer cuts were made. Protecting the soft tissue throughout this time. A size 7 tibial base plate was selected. the knee was flexed to 90 degrees and the soft tissues and posterior osteophytes were removed from the joint. 40 cc of the periarticular injection was injected into the posterior medial corner of the joint. The appropriate trials were then placed on the femur and tibia. A trial polyethylene was trialed to ensure proper balancing and stability of the knee. The appropriate tibial internal rotation was then marked with a bovie. Our attention was then directed to the patella. The lug holes were drilled and the patella trial was placed. Patellar tracking was checked and deemed appropriate. Once we were happy lug holes were drilled for the femur and trial components were removed. the tibia was subluxed and pinned into place and the keel was punched and drilled appropriately. Final components were verified and opened, and cement was mixed in a vacuum. zumatek Simplex cement was used. The wound was copiously irrigated with normal saline. When the cement was ready the components were impacted into place starting with the tibia, femur and finally cementing the patella. The trial poly component was placed and the knee was placed in full extension. All excess cement was removed in the process. Once the cement had cured the tracking, alignment and balance were verified and a size 9 mm CS polyethylene component was placed. Once the final components were placed a 3-minute dilute Betadine lavage was performed followed by an Irrisept lavage was performed and the wound was copiously irrigated with normal saline solution and the periarticular injection was given. The wound was closed in a layer smiley fashion using #1 vicryl interrupted sutures for the arthrotomy, 2-0 interrupted Vicryl suture for the subcuticular layer and mitzi for final skin closure. A sterile compressive dressing was then placed. The patient was then awakened from anesthesia, transferred to the rnew [place] and transferred to the PACU for recovery. Post op plan DVT ppx: Xarelto 10 mg daily due to previous VTE, thigh high compression stockings Follow up: in office in 2 weeks for wound check PT: to start POD #0 at hospital, outpatient PT should be arranged. My physician medical assistant secretary was a vital part of this case. He was important in appropriate retraction during the case, and protection of soft tissues during bony cuts. His intimate knowledge of the case and my steps aided in safe and expedient completion of the procedure as well as appropriate position of the leg during the case. He was also vital in assisting with closure under my direct supervision. Due to the complexity of this case robotic arm was used to assist in the surgery to improve accuracy and clinical outcomes. Complications No intraoperative complications Admit VTE Documentation VTE Present on Admission: No VTE Mechan Device Prophylaxis: SCD's and Thigh High HARSHIL Hose VTE Pharm Prophylaxis ordered?: Yes
--- NOTE | 2021-07-21 12:50 | RAD_ITS ---
STUDY: X-RAY - RIGHT KNEE REASON FOR EXAM: Male, 76 years old. Post op -- AP and Lateral xray of operative knee in PACU TECHNIQUE: 2 view(s) of the knee. COMPARISON: None. FINDINGS: Normal visualized distal femur. Normal visualized proximal tibia and fibula. Normal proximal tibiofibular articulation. The patient is status post total knee replacement. There is good alignment. Postoperative soft tissue changes. RAD/Knee 1 or 2 Views IMPRESSION: Status post total knee replacement. There is good alignment. Postoperative soft tissue changes. Electronically Signed: Cuong Reynolds MD at 15:24 EST ,
[2021-07-21] MEDS: Lactated Ringers 1,000 ML 125 ML IV (13:10)
--- NOTE | 2021-07-21 15:25 | PCM.PN.HOSP ---
Documented by User: Lynnette Callaway NP, [employer] ENGINEER-C 07/21/21 15:30 Subjective Subjective Patient seen and examined. Underwent right total knee replacement by Dr. Phan. Denies current pain. Denies other symptoms or complaints. He was placed on supplemental oxygen postoperatively however denies shortness of breath. Objective Data Objective Data Vital Signs: Vital Signs Temp Pulse Resp BP Pulse Ox 98.1 F 74 16 116/55 L 93 07/21/21 14:06 07/21/21 14:06 07/21/21 14:06 07/21/21 14:06 07/21/21 14:06 Oxygen Flow Rate (L/min) 4 Oxygen Delivery Method Nasal Cannula Weight: 196 lb 3.382 oz Body Mass Index (BMI) 28.1 Intake & Output: Intake and Output for Last 24 Hours 07/19/21 07/20/21 07/21/21 23:59 23:59 23:59 Intake Total 2215.5 / 2215.5 Balance 2215.5 / 2215.5 Lab / Micro Data Result Diagrams: 07/10/21 09:48 07/10/21 09:48 Labs: Laboratory Results - last 24 hr 07/21/21 08:21: POC Glucose 99 Micro: Microbiology 07/10/21 09:48 Swab (Method) Nasal Screen MRSA/MSSA - Final Physical Exam Const alert, oriented x3 and no apparent distress Orientation / Consciousness: awake, oriented to person, oriented to place and oriented to time HEENT normocephalic and moist oral mucous membranes Eyes PERRL, EOMs intact bilaterally and conjunctivae normal Neck no lymphadenopathy Resp normal respiratory effort and clear to auscultation bilaterally Cardio regular rate, regular rhythm and no murmurs Peripheral Pulses: pulses 2+ throughout GI normal to inspection, nondistended, normoactive bowel sounds, non-tender and non-distended Extremity normal to inspection Skin no rashes or lesions noted Skin Narrative: Postop dressing intact. Lesions: no lesions Rashes: no rashes Trauma: no lacerations or abrasions Neuro CN's II-XII intact bilaterally, no focal motor deficits, no sensory deficits noted and deep tendon reflexes 2+ bilaterally Psych mental status grossly normal and affect normal Assessment & Plan Assessment/Plan (1) Hypertension: PLAN: 1. Right knee primary osteoarthritis status post right total knee replacement-management per Ortho. PT/OT. As needed pain regimen. 2. Postoperative hypoxia-not documented to be hypoxic however currently on 4 L. Lung sounds clear. Ambulate when able from orthopedic standpoint. Incentive spirometer. Wean oxygen as tolerated. 3. Hypertension-continue HCTZ, metoprolol. 4. Hyperlipidemia-continue statin. 5. Anxiety/depression-on as needed lorazepam, paroxetine. 6. BPH-status post TURP. 7. History of PE-Xarelto postoperatively. DVT prophylaxis-Xarelto This patient was seen by OLIVIA Xie under the supervision of Dr. Conner. Time spent examining patient, reviewing data and subsequent management of care: 10 Minutes Documented by User: Dr. Khoa Conner MD 07/21/21 18:32 Subjective Subjective Patient referred by orthopedic surgeon, Dr. Yogesh Nolasco for medical management of multiple comorbidities Reason of consult: Medical management of acute postop hypoxia, hypertension, dyslipidemia, BPH status post TURP, history of pulmonary embolism on rivaroxaban. History of present illness: Patient is being admitted by Dr. Phan for elective right TKR. Patient had right knee primary osteoarthritis and underwent right minimally invasive robotic total knee replacement on 07/21/2021. Patient denies chest pain, shortness of breath. Patient was on 4 L of oxygen. Currently saturating 97% on 2 L of oxygen. No cough, nasal congestion or other URI symptoms. Patient did not voided urine yet. History of BPH status post TURP by Dr. Connolly. His preop tamsulosin was discontinued after TURP surgery as he did not need that. Patient on bladder scan every 4 hourly. Objective Data Lab / Micro Data Result Diagrams: 07/10/21 09:48 07/10/21 09:48 Physical Exam Narrative Physical exam General: Alert, Oriented x3, Cooperative HEENT: Atraumatic, PERRLA, EOMI, Normocephalic Oral: No Gingival or Mucosal Lesions/ Ulcerations Neck: Supple, No JVD, Negative Carotid Bruits Lungs: Air entry diminished in bilateral lung bases. No crepitation/rhonchi Cardiovascular: Regular rate, Regular Rhythm, Normal S1, Normal S2, LLSB systolic murmur. Abdomen: Bowel Sounds Present, Soft, Non Tender, Non-Distended : No renal angle tenderness. No suprapubic tenderness. Extremities: No edema, Capillary Refill Less than 3 Seconds Skin: No rashes, No breakdown Musculoskeletal: Right TKR. Under ice bag. Mild tenderness present. Patient can move his right ankle. Neurological: Cranial nerves II-XII grossly intact, DTR 2+/4 and Symmetrical, Neuro grossly intact Psych/Mental Status: Normal Affect, Appropriate. Assessment & Plan Assessment/Plan (1) Acute respiratory failure with hypoxia: PLAN: This patient was seen in conjunction with Lynnette ROOT. I have independently interviewed and examined the patient and reviewed pertinent history, examination findings, laboratory and plan of management. I have reviewed the note and agree with the documented findings with the few additional points. In brief, patient is admitted after elective right TKR. Hospitalist consulted for management of postop hypoxia. The patient has history of pulmonary embolism and is on rivaroxaban which is on hold during perioperative period. 2D echo on August 2018 shows normal RV size and systolic function, EF 66%. No diastolic dysfunction. Reported mild SD and trivial MR. Advised incentive spirometry. Resume rifaximin once bleeding is controlled. History of BPH status post TURP. Currently patient has not voided urine. Advised BladderScan every 4 hourly and if bladder scan shows more than 200 mL, straight cath. Other comorbidities include hypertension, dyslipidemia, anxiety and depression: Twelve-lead EKG on 05/10/2021 individually reviewed. Normal sinus rhythm 70/min, QTC 440 ms. I have discussed my assessment with Lynnette ROOT and orders have been reviewed. Charges/Coding Visit Charges Office Visits / Consults: [id number] OP Consult L3
[2021-07-21] MEDS: Potassium Chloride Oral Tablet 10 MEQ PO (18:32)
[2021-07-21] MEDS: Cefazolin 1 GM/50 ML BAG IV (18:33)
[2021-07-21] MEDS: Senna/Docusate Sodium 1 Tablet 2 TABLET PO (20:16)
[2021-07-21] MEDS: Metoprolol Tartrate 25 MG Tablet PO (20:16)
[2021-07-21] MEDS: Atorvastatin Calcium 20 MG Tablet PO (20:16)
[2021-07-22] MEDS: Cefazolin 1 GM/50 ML BAG IV (02:07)
[2021-07-22 02:13] VITALS: BP 115/62; PULSE 60; RESP 16; TEMP 36.6; O2SAT 94
[2021-07-22] MEDS: Acetaminophen 500 MG Tablet 1000 MG PO ×2 (05:58→13:04)
[2021-07-22] MEDS: Rivaroxaban 10 MG Tablet PO (05:59)
[2021-07-22 06:36] LABS: Hemoglobin 14.5 g/dL (13.0-16.5); Mean Corp Hgb Conc 35.4 g/dL (32-36); Mean Corpuscular Hgb 30.9 pg (27.0-32.0); Mean Corpuscular Volume 87.4 fL (80-94); Mean Platelet Vol. 10.2 fl (6.2-12.0); Platelet Count 138 K/mm3 (150-450); RBC Distribution Width CV 13.7 % (11.6-14.6); RBC Distribution Width SD 43.8 fl (35.1-43.9); Red Blood Count 4.69 M/mm3 (4.6-6.2); White Blood Count 10.2 K/mm3 (4.4-11.0)
[2021-07-22 07:05] LABS: Anion Gap 5 (5-15); BUN 20 mg/dL (7-18); BUN/Creat Ratio 18.2 RATIO (10-20); Calcium,Total 8.5 mg/dL (8.5-10.1); Chloride 105 mmol/L (98-107); EST Glomerular Filtration Rate 69 mL/min (>60); Est Glom Filt Rate - Afr Amer 84 mL/min (>60); Estimated Creatinine Clearance 58.99 ml/min; Glucose 100 mg/dL (74-106); Potassium 3.5 mmol/L (3.5-5.1); Sodium Level 138 mmol/L (136-145)
[2021-07-22 07:10] VITALS: O2SAT 96
[2021-07-22 08:27] VITALS: PULSE 70
[2021-07-22] MEDS: Metoprolol Tartrate 25 MG Tablet PO (08:27)
[2021-07-22] MEDS: Potassium Chloride Oral Tablet 10 MEQ PO (08:27)
[2021-07-22] MEDS: hydroCHLOROthiazide 25 MG Tablet PO (08:27)
[2021-07-22] MEDS: Famotidine 20 MG Tablet PO (08:28)
[2021-07-22] MEDS: Cholecalciferol (VIT D3) 25 MCG TABLET (1,000 UNITS) PO (08:28)
[2021-07-22] MEDS: Paroxetine 20 MG Tablet PO (08:28)
[2021-07-22] MEDS: Senna/Docusate Sodium 1 Tablet 2 TABLET PO (08:28)
[2021-07-22 08:30] VITALS: BP 116/45; PULSE 70; RESP 18; TEMP 36.7; O2SAT 93
--- NOTE | 2021-07-22 09:21 | CASEMGMT ---
SAADIA SOL Assessment: Face to Face with pt for initial transition planning/care coordination assessment. RN EBENEZER introduced self and role at [facility], pt voices understanding and consents to assessment. Pt is A/O x4 and answers all questions appropriately at this time. Pt sitting up in chair in no distress anxious to go home. Care providers, pharmacy, and demographics verified/updated. Admitting Dx: R TK with Yrn PCP:Devaughn Specialists:Emilie, ortho; Mohsen, uro; Allen, opthamology; Testhernando, pod; Leist, cardio; Obrecht, pulm Preferred Pharmacy: [facility] Insurance: [employer] Prescription Benefit: yes LW/HPOA: Pt denies having a LW/DPOA and denies need for info regarding AD. LNOK: Madison Hernandes, ; Ninoska Hernandes, dtr Living Arrangements: Pt lives with in a two story house with 3 short steps to enter without a rail. Pt reports he was I in ADL's and denies concerns at home. Transportation: Pt drives self and denies concerns with transportation. Pt will assist with transportation until pt able to drive. DME/HHC/SNF: Pt has a cane, high rise toilet, BSC, FWW, W/C. Pt states he has had HHC in the past but is unsure of who it was through. Pt denies SNF stays. Pt states no concerns with going home at time of dc. He has therapy set up for Monday at [facility]. Pt states no further concerns/needs. CM to follow. Advised pt to ask CM if any further question/concerns/needs arise, voices understanding. Pt Goal: Home with outpt therapy Plan: Home with outpt therapy
[2021-07-22] MEDS: Ensure Surgery 237 ML LIQUID PO ×2 (10:12→13:04)
--- NOTE | 2021-07-22 10:48 | PN.HOSP_ITS ---
Documented by User: Stas VERA 07/22/21 10:59 Subjective Subjective Patient is a 76-year-old male currently resting in a chair, alert and oriented x3. Patient did have some bleeding from his incision site on his right knee upon ambulation, denies any lightheadedness or dizziness. Does not appear in a cute distress. Objective Data Objective Data Vital Signs: Vital Signs Temp Pulse Resp BP Pulse Ox 98.1 F 70 18 116/45 L 93 07/22/21 08:30 07/22/21 08:30 07/22/21 08:30 07/22/21 08:30 07/22/21 08:30 Oxygen Flow Rate (L/min) 2 Oxygen Delivery Method Room Air Weight: 196 lb 3.382 oz Body Mass Index (BMI) 28.1 Intake & Output: Intake and Output for Last 24 Hours 07/20/21 07/21/21 07/22/21 23:59 23:59 23:59 Intake Total 3665.50 / 4145.50 650 / 650 Output Total 300 / 300 Balance 3665.50 / 3945.50 350 / 350 Lab / Micro Data Result Diagrams: 07/22/21 06:27 07/22/21 06:27 Labs: Laboratory Results - last 24 hr 07/22/21 06:27: WBC 10.2, RBC 4.69, Hgb 14.5, Hct 41.0, MCV 87.4, MCH 30.9, MCHC 35.4, RDW Std Deviation 43.8, RDW Coeff of Daisy 13.7, Plt Count 138 L, MPV 10.2 07/22/21 06:27: Sodium 138, Potassium 3.5, Chloride 105, Carbon Dioxide 28.0, Anion Gap 5, BUN 20 H, Creatinine 1.10, Estim Creat Clear Calc 58.99, Est GFR (MDRD) Af Amer 84, Est GFR (MDRD) Non-Af 69, BUN/Creatinine Ratio 18.2, Glucose 100, Calcium 8.5 Micro: Microbiology 07/10/21 09:48 Swab (Method) Nasal Screen MRSA/MSSA - Final Radiography Diagnostic Testing: Radiology Impression Knee X-Ray 07/21/21 12:50 IMPRESSION: Status post total knee replacement. There is good alignment. Postoperative soft tissue changes. Electronically Signed: Cuong Reynolds MD at 15:24 EST , Physical Exam Const alert, oriented x3 and no apparent distress HEENT head/scalp atraumatic and moist oral mucous membranes Head and Scalp: normocephalic Eyes PERRL, EOMs intact bilaterally and conjunctivae normal Neck no lymphadenopathy, supple and no JVD Resp normal respiratory effort, no retractions and no use of accessory muscles Cardio regular rate, regular rhythm and no JVD GI normal to inspection, nondistended, normoactive bowel sounds Extremity Extremity Narrative: Right lower extremity is appropriately bandaged. Skin Skin Narrative: See extremity. Neuro CN's II-XII intact bilaterally Psych affect normal Assessment & Plan Assessment/Plan (1) Hypertension: (2) Acute respiratory failure with hypoxia: PLAN: Patient is a 76-year-old male who presents to the hospital medicine service on consult from orthopedics for management of acute postoperative hypoxia and medical comorbidities. 1) Acute postoperative hypoxia. Resolved, currently satting 93% on room air. Lungs are clear to auscultation. Patient denies any shortness of breath, palpitations or chest pain. Incentive spirometry encouraged. O2 as needed. 2) HTN Continue hydrochlorothiazide and metoprolol. 3) HLD Continue statin. 4) depression/anxiety Continue lorazepam and paroxetine. 5) BPH Status post TURP. 6) history of PE On Xarelto, continue per orthopedics. 7)Right knee osteoarthritis POD 1 status post right total knee replacement. Management per orthopedics. DVT prophylaxis - per orthopedics Patient seen by Stas Whitt PA-C, under the supervision of Dr. Vela. Time spent on patient care: 9 minutes. Documented by User: Dr. Ernesto Vela MD 07/22/21 13:45 Objective Data Lab / Micro Data Result Diagrams: 07/22/21 06:27 07/22/21 06:27 Charges/Coding Addendum Addendum: Dr. Vela: I personally reviewed the chart and examined the patient, and agree with the above findings. 76-year-old male presents for right total knee replacement. Outpatient medications-stable, he was wearing oxygen overnight but this is slowly been weaned to room air. He is also expressing some pain above his knee and he did have some significant expression of fluid understanding. Orthopedic surgery feels like he still may be safe to go home from their perspective and I have no issues from a medical perspective to keep him here any further. Clinical time spent in all aspects of patient care: 17 minutes Visit Charges OBSV E&M: 69931 Subsequent observation care L2
--- NOTE | 2021-07-22 11:25 | PN.ORTHO_ITS ---
Subjective Subjective The patient was sitting in bedside chair upon examination with Occupational Therapy present. Patient denies any chest pain, shortness of breath, dizziness, lightheadedness, nausea or vomiting, or calf pain. Pain is controlled on medications. No adverse overnight events. Patient has been doing well with regards to his pain. However when he went up to get to the bathroom this morning they noticed that he had drainage on the postoperative knee. Patient also reports history of a previous pulmonary embolism. He is currently on Xarelto postoperatively for DVT prophylaxis. He takes meloxicam at home but we discussed not continuing the meloxicam while on the Xarelto. Objective Data Objective Data Vital Signs: Vital Signs Temp Pulse Resp BP Pulse Ox 98.1 F 70 18 116/45 L 93 07/22/21 08:30 07/22/21 08:30 07/22/21 08:30 07/22/21 08:30 07/22/21 08:30 Oxygen Flow Rate (L/min) 2 Oxygen Delivery Method Room Air Weight: 89 kg Body Mass Index (BMI) 28.1 Intake & Output: Intake and Output for Last 24 Hours 07/20/21 07/21/21 07/22/21 23:59 23:59 23:59 Intake Total 3665.50 / 4145.50 650 / 650 Output Total 300 / 300 Balance 3665.50 / 3945.50 350 / 350 Lab / Micro Data Result Diagrams: 07/22/21 06:27 07/22/21 06:27 Labs: Laboratory Results - last 24 hr 07/22/21 06:27: WBC 10.2, RBC 4.69, Hgb 14.5, Hct 41.0, MCV 87.4, MCH 30.9, MCHC 35.4, RDW Std Deviation 43.8, RDW Coeff of Daisy 13.7, Plt Count 138 L, MPV 10.2 07/22/21 06:27: Sodium 138, Potassium 3.5, Chloride 105, Carbon Dioxide 28.0, Anion Gap 5, BUN 20 H, Creatinine 1.10, Estim Creat Clear Calc 58.99, Est GFR (MDRD) Af Amer 84, Est GFR (MDRD) Non-Af 69, BUN/Creatinine Ratio 18.2, Glucose 100, Calcium 8.5 Micro: Microbiology 07/10/21 09:48 Swab (Method) Nasal Screen MRSA/MSSA - Final Radiography Diagnostic Testing: Radiology Impression Knee X-Ray 07/21/21 12:50 IMPRESSION: Status post total knee replacement. There is good alignment. Postoperative soft tissue changes. Electronically Signed: Cuong Reynolds MD at 15:24 EST , Physical Exam Narrative Vital signs stable and afebrile. HARSHIL hose and SCDs are present Patient is able to plantarflex and dorsiflex actively. Sensation is intact to light touch to saphenous, sural, superficial and deep peroneal, and tibial distribution. Mepilex dressing had significant drainage over the distal one third contacting 3 borders. There was also bloody discharge on his HARSHIL hose. HARSHIL hose were removed as well as the Mepilex dressing. The knee was cleaned and there was no evidence of any further bleeding. ABDs and compressive wrap was placed Negative Homans bilaterally, negative signs and symptoms of DVT. Const alert, oriented x3 and no apparent distress Assessment & Plan Assessment/Plan (1) Status post total right knee replacement: PLAN: 1. S/P right total knee arthroplasty POD #1 2. Continue Pain Medications: Tylenol and oxycodone 3. DVT Prophylaxis: Patient is currently on Xarelto for 2 weeks postoperatively for DVT prophylaxis due to previous history of pulmonary embolism. Patient overall is doing well today with no chest pain or shortness of breath. Plan will be at 2-week visit to switch over to aspirin 81 mg twice daily. He will stop the meloxicam at home 4. PT/OT: Weightbearing as tolerated with walker. However due to drainage this morning patient will avoid significant range of motion. When examining the patient he was bending his knee past 90 degrees constantly. 5. Postoperative wound drainage: Mepilex dressing was removed and compressive dressing was placed. We will continue with this throughout today. We will still have patient work with therapy with walking however avoid range of motion. We will reexamine the knee later this afternoon. If there is no further drainage we will place Mepilex dressing over the incision and plan for discharge home. If he continues to have drainage plan will be for staying additional night. 6. H & H: 14.5/41.0, asymptomatic. Postoperative anemia secondary to acute blood loss from surgery without any intra operative complications. 7. Continue postoperative medical management per medicine 8. Encouraged Incentive Spirometry 9. Disposition: Plan will be for possible discharge home later this afternoon if patient does not have any further drainage from the incision. I will contact nursing staff later this afternoon to reassess patient's right knee. If there is no further drainage we will place Mepilex dressing over the incision and plan for discharge home. Other than the drainage patient is overall doing very well. Pain is being controlled. Prescriptions will be E scribed to [facility]. He will follow-up per postop instructions. If patient does require an additional night stay physical therapy will have to be adjusted as he has outpatient therapy scheduled to begin tomorrow. I have reviewed the [place] Automated Rx Reporting System (OARRS) report for this patient for refill pattern and other prescriber involvement as part of the appropriate surveillance for the provision of acute and chronic controlled medications. The report was requested and reviewed on the date of this entry and was considered in the prescribing process.
--- NOTE | 2021-07-22 11:31 | DCINST_ITS ---
Discharge Instructions Diet Discharge Diet: No restrictions Activity Discharge Activity: May Not Drive (while taking narcotic pain medications.) May shower in (days): 1 (Please turn dressing away from water. Okay to get wet as long as dressing is intact to skin.) Ice area for (Minutes): 20 (Every 1-2 hours while awake. Please place barrier between the skin and ice pack.) Weight Bearing Status: Weight bearing as tolerated Keep extremity elevated above heart level: Operative Extremity Dressing / Incision Call your doctor if your incision/area has: Continuous Slow Oozing, Sudden Increased Bleeding, Increased Pain/ Swelling, Increased Redness and Foul Smelling Discharge Call your doctor if you observe: Fever of 101 or Higher, Coldness, Increased Pain, Numbness or Tingling, Change in Color, Shortness of breath, Chest pain, Calf discomfort and Uncontrolled pain Remove Dressing in: 4 days (Okay to remove dressing on 07/26/2021) Additional Dressing/Incision Instructions:: Follow [facility] Post-op Instructions. Once postoperative dressing has been removed only use gentle soap and water over the incision. Do not use any ointments, Neosporin, salves, alcohol pads over the incision for 6 weeks postoperatively. Do not submerge underwater for 6 weeks postoperatively. Continue with HARSHIL hose/elastic stockings for 2 weeks postoperatively. May remove at nighttime but needs to be placed back on the leg during the day. Do NOT use alcohol with narcotic pain medication. Do NOT make important decisions while taking narcotic medication. If you have problems with taking your medication (rash, itching, nausea, etc.) call the office at once. Follow Up Care Test Results: Test results from this visit will be discussed in further detail at your follow-up appointment, if applicable. Discharge Plan Admission Admit Date/Time: 07/21/21 10:50 Attending Provider: Ernesto Vela Primary Care Provider: Brandon Cantor Consulting Providers: Khoa Conner Discharge Orders/Prescriptions Prescriptions: New acetaminophen 500 mg Tablet 1,000 mg PO TID 14 Days Qty: 84 RF: 0 oxycodone 5 mg Tablet 5 - 10 mg PO Q4H PRN PRN (Reason: Pain Score 4-10) 5 Days Qty: 60 RF: 0 sennosides-docusate sodium [Stool Softener-Stimulant Laxat] 8.6-50 mg Tablet 2 tab PO BID Qty: 20 RF: 0 Xarelto 10 mg Tablet 10 mg PO 0600 Qty: 14 RF: 0 Continued Protein Nutritional Shake Liquid 100 ml PO DAILY RF: 0 Discontinued Tylenol 500 MG tablet 2 tab PO DAILY PRN PRN (Reason: Pain) RF: 0 meloxicam 15 MG tablet 15 mg PO PRN PRN (Reason: Pain) RF: 0 No Action lorazepam 1 mg tablet 1 mg PO PRN PRN (Reason: Anxiety) RF: 0 hydrochlorothiazide 25 mg tablet 25 mg PO DAILY RF: 0 paroxetine HCl 10 MG tablet 20 mg PO DAILY RF: 0 cholecalciferol (vitamin D3) [Vitamin D3] 25 mcg (1,000 unit) Tablet 25 mcg PO DAILY RF: 0 potassium chloride 10 mEq capsule, extended release 10 meq PO BID RF: 0 atorvastatin 20 mg tablet 20 mg PO DAILY RF: 0 metoprolol tartrate 25 mg tablet 25 mg PO BID RF: 0 Referrals / Follow Up: Brandon Cantor MD [Primary Care Provider] - Michael Diaz PA-C [PHYSICIAN [employer]] - 08/05/21 3:30 pm Physical,Therapy [Other] - 07/23/21 1:00 pm Disposition Disposition (needs filled in before D/C Order can be placed): Home, Self Care
--- NOTE | 2021-07-22 12:47 | CASEMGMT ---
RN EBENEZER NOTE: Intro role of CM to patient and [facility]IGHT form explained re: Observation status for treatment of Rt total knee w/TONIA. Explained hospitalization will be paid per his insurance policy for Outpatient billing and condition will continue to be evaluated for Inpt necessity. Also let pt know that [facility] sends paper in the billing packet with their phone number if questions arise. Discussed Pharmacy section of [facility] form and self administered medication guideline. Pt verbalizes understanding and does not have further questions. Form signed, copy made and placed in chart, and original given to pt. [place] GARZA RN CM
--- NOTE | 2021-07-22 14:43 | CASEMGMT ---
TC to [facility], spoke with fallon Stone cost for xarelto is $19.60.
[2021-07-22 15:34] VITALS: BP 100/44; PULSE 62; RESP 18; TEMP 37.2; O2SAT 91
== END 2021-07-22 16:04 | disposition home or self-care (01) ==
LOC: SDC 12:46 → MS3 12:46
PROVIDERS: Anesthesiology; Admitting Provider Specialist; PCP Internal Medicine; Referring Provider Specialist; Visit Provider Family Medicine
PROC: 0SRC0JZ Replacement of Right Knee Joint with Synthetic Substitute, Open Approach (ICD-10-PCS; CPT 27447; principal; 2021-07-21 09:45)
DX: M17.11 Unilateral primary osteoarthritis, right knee (principal); I50.30 Unspecified diastolic (congestive) heart failure; I11.0 Hypertensive heart disease with heart failure; J96.11 Chronic respiratory failure with hypoxia; E78.5 Hyperlipidemia, unspecified; N40.0 Benign prostatic hyperplasia without lower urinary tract symptoms; F32.A Depression, unspecified; F41.9 Anxiety disorder, unspecified; D75.1 Secondary polycythemia; Z86.718 Personal history of other venous thrombosis and embolism; Z86.711 Personal history of pulmonary embolism; Z87.891 Personal history of nicotine dependence; Z79.899 Other long term (current) drug therapy
CPT/HCPCS: 27447; S2900; 01402; 64447; 36415; 71046; 73560; 80048; 82040; 82962; 83735; 85025; 85027; 87081; 97110; 97162; 97166; 97530; 97535; 99251; C1776; J7120; G0463; J2405

== ENCOUNTER 2021-07-23 15:07 | Inpatient (IN) | payer MEDICARE, SELFPAY ==
[2021-07-23] VITALS (8 sets, daily range): BP systolic 130–169; BP diastolic 39–68; PULSE 77–102; RESP 16–18; TEMP 36.5–38.9; O2SAT 92–98; BMI 29.0; BMI 28.0
--- NOTE | 2021-07-23 15:46 | EKG12_ITS ---
Test Reason : WEAKNESS Blood Pressure : / mmHG Vent. Rate : 103 BPM Atrial Rate : 103 BPM P-R Int : 194 ms QRS Dur : 100 ms QT Int : 346 ms P-R-T Axes : 021 007 037 degrees QTc Int : 453 ms Sinus tachycardia Otherwise normal ECG Confirmed by MONTSE DIMAS, MIKE ([id number]), news assignment editor JESE MENDOZA ([id number]) on 07/26/2021 1:11:59 PM Referred By: TYSON Confirmed By:AMADA WILLARD MD
--- NOTE | 2021-07-23 15:46 | VDLE_ITS ---
Reason For Study: Pain RIGHT GSV is normal. CFV is compressible, spontaneous, phasic, competent and demonstrates normal augmentation. FV is compressible, spontaneous, phasic, competent and demonstrates normal augmentation. POP V is compressible, spontaneous, phasic, competent and demonstrates normal augmentation. T/P Trunk is compressible. PTV is compressible. RT PerV is compressible. Procedure This is a venous duplex using B-mode, color flow and spectral Doppler. Exam performed portable in ED. A preliminary report was called and/or faxed to [facility]. VL/Venous Duplex US, Unilateral Interpretation Summary There is no evidence of right lower extremity deep vein thrombosis. Right great saphenous vein appears patent and compressible segmentally. Ordering Physician: Mundo Bernardo Referring Physician: Brandon Cantor M.D. Performed By: Gracia Valera RVT
--- NOTE | 2021-07-23 15:49 | RAD_ITS ---
STUDY: XR Knee Complete 4 Views or More 07/23/2021 5:19 PM REASON FOR EXAM: Male, 76 years old. PAIN TECHNIQUE: XR Knee Complete 4 Views or More COMPARISON: 07.21.21 FINDINGS: There is no fracture or dislocation. There is anatomic alignment. Total knee arthroplasty. Soft tissue edema and swelling. Skin mitzi are seen along the anterior midline aspect of the knee. There is an air-fluid level seen in the suprapatellar region. Joint space is preserved. Subcutaneous air is noted. There are atherosclerotic vascular calcifications. IMPRESSION: Soft tissue edema and swelling has increased . total knee arthroplasty. Electronically Signed: Eliezer Atkinson MD at 17:21 EST Reading Location ID and State: [facility] / [place] , Service support , RAD/Knee 4 or More Views
--- NOTE | 2021-07-23 15:50 | EDS_ITS ---
HPI History of Present Illness Chief Complaint: Weakness Narrative Narrative: 76-year-old male presenting with right knee pain. He states that he is postop day #2 status post total right knee replacement. Patient states initially in the hospital he was able to ambulate. Since he has been home he has been having difficulty getting around cannot take care of himself. He states that he can barely move his right knee. He states he has been able to eat and drink okay. He is not vomiting. He has not had a fever, and does not feel unwell. Patient states he believes he was given a Xarelto while he was in the hospital and thinks he may have had one yesterday but is unsure if his picked up the Xarelto. Patient states he has not had a good look at his right knee and he cannot tell if it is changed other than the increasing pain and inability to ambulate. His dressing has been changed once he states. He does not know if there has been any drainage from the knee. [facility] Medical History (Updated 07/23/21 @ 23:35 by Mone Ordonez) Acute respiratory failure with hypoxia Anxiety Anxiety Anxiety Arthritis Arthritis Back pain BPH (benign prostatic hyperplasia) Cancer Cardiology follow-up encounter Change in bowel habit Chronic respiratory failure with hypoxia Closed right hip fracture Depression Depression Diarrhea Difficulty swallowing Fall Former smoker Heartburn History of echocardiogram History of edema History of pain when walking Hypercholesterolemia Hyperlipidemia Hypertension Hypertension Hypothyroidism Leg cramps Osteoarthritis Osteoporosis Polycythemia Prostate disease Pulmonary embolism Pulmonary embolism Shortness of breath on exertion Skin cancer Syncope Wears dentures Wears glasses Home Medications lorazepam 1 mg tablet 1 mg PO PRN PRN 01/31/18 [History Last Taken 07/23/21] hydrochlorothiazide 25 mg tablet 25 mg PO DAILY 03/12/19 [History Last Taken 07/23/21] atorvastatin 20 mg PO DAILY 04/15/21 [History Last Taken 07/22/21] metoprolol tartrate 25 mg PO BID 04/15/21 [History Last Taken 07/23/21] potassium chloride 10 meq PO BID 04/15/21 [History Last Taken 07/23/21] Protein Nutritional Shake 100 ml PO DAILY 07/07/21 [History Last Taken 07/23/21] cholecalciferol (vitamin D3) [Vitamin D3] 25 mcg PO DAILY 07/07/21 [History Last Taken 07/23/21] acetaminophen 1,000 mg PO TID 14 Days #84 tab 07/22/21 [Rx Last Taken Unknown] oxycodone 5 - 10 mg PO Q4H PRN PRN 5 Days #60 tab 07/22/21 [Rx Last Taken Unknown] rivaroxaban [Xarelto] 10 mg PO 0600 #14 tab 07/22/21 [Rx Last Taken Unknown] sennosides-docusate sodium [Stool Softener-Stimulant Laxat] 2 tab PO BID #20 tab 07/22/21 [Rx Last Taken Unknown] paroxetine HCl 20 mg PO DAILY 07/23/21 [History Last Taken 07/23/21] Allergy/AdvReac Type Severity Reaction Status Date / Time No Known Allergies Allergy Verified 07/23/21 15:08 Family History Father Lung cancer Mother Parkinsons Heart failure Surgical History H/O colonoscopy History of cardiac catheterization History of colon surgery History of rhinoplasty History of total knee replacement (TKR) History of total right hip replacement History of transurethral resection of prostate reattachment of severed finger stoma reversal Social History household members: spouse housing: house 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al status: employed 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: [employer] pets and animals: Yes pets and animals: cat(s) and dog(s) Smoking Status: Former smoker quit date: 06/05/98 pack-years: 72 second hand exposure: No alcohol intake: never substance use type: does not use ROS ROS ED Constitutional Constitutional ED: Denies chills or fever(s) Eyes Eyes: Denies blurry vision or diplopia ENT ENT ED: Denies rhinorrhea or sore throat Cardiovascular Cardiovascular: Denies chest pain or palpitations Respiratory/Chest Respiratory/Chest: Denies cough, dyspnea or sputum Gastrointestinal Gastrointestinal: Denies abdominal pain, nausea or vomiting Genitourinary Genitourinary ED: Denies dysuria or hematuria Musculoskeletal Musculoskeletal: Reports other Details: Right knee pain and swelling. Integumentary Denies rash Neurologic Neurologic: Denies headache(s) EXAM Physical Exam Const Vital Signs: 07/23/21 15:17 07/23/21 15:46 07/23/21 16:46 Temperature 100.6 F H 101.2 F H Temperature Source Oral Temporal Pulse Rate 102 H 91 Respiratory Rate 16 18 Blood Pressure 145/62 H 153/60 H Blood Pressure Mean 89 91 Pulse Ox 96 96 Oxygen Delivery Method Room Air Room Air Room Air Oxygen Flow Rate (L/min) 07/23/21 17:35 07/23/21 18:18 07/23/21 19:00 Temperature 101.2 F H 102.1 F H Temperature Source Temporal Temporal Pulse Rate 101 H 101 H Respiratory Rate 18 18 Blood Pressure 134/54 H 169/68 H Blood Pressure Mean 80 101 Pulse Ox 98 96 Oxygen Delivery Method Room Air Nasal Cannula Oxygen Flow Rate (L/min) 07/23/21 20:10 Temperature 98.9 F Temperature Source Oral Pulse Rate 88 Respiratory Rate Blood Pressure 130/49 H Blood Pressure Mean 76 Pulse Ox 92 Oxygen Delivery Method Nasal Cannula Oxygen Flow Rate (L/min) 4 Positive obese General Appearance ED: NAD Nutritional Appearance: obese HEENT HEENT Narrative: dry mucous membranes normocephalic and atraumatic Resp normal respiratory effort and clear to auscultation bilaterally Cardio regular rhythm Rate: tachycardic GI non-tender and non-distended Palpation: soft Extremity Extremity Narrative: Erythema, warmth, swelling to right knee. No drainage is noted from the knee. I am unable to range the right knee secondary to pain. Neuro oriented x3 and CN's II-XII intact bilaterally Sensorium / Orientation: alert MDM MDM MDM Narrative Medical decision making narrative: Patient presenting with right knee pain and signs of redness and swelling on his right knee. He is unable to ambulate secondary pain in the knee. He does arrive with a fever. Sepsis work-up was obtained. Patient has a leukocytosis of 11.7. Hemoglobin hematocrit are stable. Leukocytosis is new from the other day when he had surgery. Creatinine is normal and patient's electrolytes are normal with exception of a potassium of 3.3. Lactic acid is 2.7. He has an isolated total bilirubin elevation on his LFTs. Urinalysis is not consistent with a UTI although this is sent for culture. DVT study of the right lower extremity is obtained because the patient cannot recall if he took his Xarelto. This was negative for DVT. X-ray of the right knee shows increased swelling without acute osseous abnormality on my interpretation. Radiologist agree. Chest x-ray my interpretation shows possible perihilar edema. Patient is on his baseline oxygen. Covid PCR is negative. Lactic acid returned at 2.7. I did speak with Dr. Ruslan Franklin who is on-call for Dr. Phan who did come and do arthrocentesis on the right knee and his markers were not elevated enough for him to think this was a knee infection postoperatively. He recommended admitting to medicine since the patient cannot ambulate. After receiving Tylenol the patient's fever was up to 102.1. At this point since his knee was aspirated he was covered with vancomycin and Zosyn. He was given IV fluids. Patient was discussed with the ospitalist for admission. Impression: 1. Right knee pain 2. Inability to ambulate 3. SIRS criteria 4. lactic acidosis Lab Data Attestation: I reviewed the patient's lab results. Labs: Laboratory Results - last 24 hr 07/23/21 07/23/21 07/23/21 15:25 15:25 16:03 WBC 11.7 H RBC 4.45 L Hgb 13.7 Hct 40.2 MCV 90.3 MCH 30.8 MCHC 34.1 RDW Std Deviation 47.0 H RDW Coeff of Daisy 14.2 Plt Count 159 MPV 10.0 Immature Gran % (Auto) 0.300 Neut % (Auto) 80.0 H Lymph % (Auto) 6.8 L [place] % (Auto) 12.5 H Eos % (Auto) 0.1 Baso % (Auto) 0.3 Absolute Neuts (auto) 9.3 H Absolute Lymphs (auto) 0.80 L Nucleated RBC % 0 ESR 12 PT INR APTT Sodium 137 Potassium 3.3 L Chloride 100 Carbon Dioxide 31.0 Anion Gap 6 BUN 26 H Creatinine 1.09 Estim Creat Clear Calc 59.53 Est GFR (MDRD) Af Amer 85 Est GFR (MDRD) Non-Af 70 BUN/Creatinine Ratio 23.9 H Glucose 99 Lactic Acid 2.7 H* Calcium 9.0 Total Bilirubin 1.30 H AST 18 ALT 13 L Alkaline Phosphatase 66 Troponin I High Sens 9 C-React Prot Ext Range 112.00 H B-Natriuretic Peptide Total Protein 6.3 L Albumin 3.1 L Globulin 3.2 Albumin/Globulin Ratio 1.0 Urine Color Urine Clarity Urine pH Ur Specific [place] Urine Protein Urine Glucose (UA) Urine Ketones Urine Occult Blood Urine Nitrite Urine Bilirubin Urine Urobilinogen Ur Leukocyte Esterase Urine RBC Urine WBC Ur Squamous Epith Cells Urine Bacteria Urine Mucus Fluid Crystals Fluid Crystal Source Fl Crystal Path Review Synovial Source Synovial Color Synovial Appearance Synovial WBC Synovial RBC Synovial Tot Cell Ct Synov Polynuclear WBCs Synovial Polynuclear % Synovial Mononuclear % Synovial Path Comment 07/23/21 07/23/21 07/23/21 16:03 16:03 16:40 WBC RBC Hgb Hct MCV MCH MCHC RDW Std Deviation RDW Coeff of Daisy Plt Count MPV Immature Gran % (Auto) Neut % (Auto) Lymph % (Auto) [place] % (Auto) Eos % (Auto) Baso % (Auto) Absolute Neuts (auto) Absolute Lymphs (auto) Nucleated RBC % ESR PT 15.6 H INR 1.3 APTT 34.0 Sodium Potassium Chloride Carbon Dioxide Anion Gap BUN Creatinine Estim Creat Clear Calc Est GFR (MDRD) Af Amer Est GFR (MDRD) Non-Af BUN/Creatinine Ratio Glucose Lactic Acid Calcium Total Bilirubin AST ALT Alkaline Phosphatase Troponin I High Sens C-React Prot Ext Range B-Natriuretic Peptide 86.0 Total Protein Albumin Globulin Albumin/Globulin Ratio Urine Color Yellow Urine Clarity Clear Urine pH 7.0 Ur Specific [place] 1.010 Urine Protein 30 H Urine Glucose (UA) Normal Urine Ketones 15 H Urine Occult Blood 10 H Urine Nitrite Negative Urine Bilirubin Negative Urine Urobilinogen Normal Ur Leukocyte Esterase 500 H Urine RBC 0 SEEN Urine WBC 25-50 SEEN Ur Squamous Epith Cells 0-5 SEEN Urine Bacteria 0 SEEN Urine Mucus 0 SEEN Fluid Crystals Fluid Crystal Source Fl Crystal Path Review Synovial Source Synovial Color Synovial Appearance Synovial WBC Synovial RBC Synovial Tot Cell Ct Synov Polynuclear WBCs Synovial Polynuclear % Synovial Mononuclear % Synovial Path Comment 07/23/21 07/23/21 17:40 20:20 WBC RBC Hgb Hct MCV MCH MCHC RDW Std Deviation RDW Coeff of Daisy Plt Count MPV Immature Gran % (Auto) Neut % (Auto) Lymph % (Auto) [place] % (Auto) Eos % (Auto) Baso % (Auto) Absolute Neuts (auto) Absolute Lymphs (auto) Nucleated RBC % ESR PT INR APTT Sodium Potassium Chloride Carbon Dioxide Anion Gap BUN Creatinine Estim Creat Clear Calc Est GFR (MDRD) Af Amer Est GFR (MDRD) Non-Af BUN/Creatinine Ratio Glucose Lactic Acid 0.9 Calcium Total Bilirubin AST ALT Alkaline Phosphatase Troponin I High Sens C-React Prot Ext Range B-Natriuretic Peptide Total Protein Albumin Globulin Albumin/Globulin Ratio Urine Color Urine Clarity Urine pH Ur Specific [place] Urine Protein Urine Glucose (UA) Urine Ketones Urine Occult Blood Urine Nitrite Urine Bilirubin Urine Urobilinogen Ur Leukocyte Esterase Urine RBC Urine WBC Ur Squamous Epith Cells Urine Bacteria Urine Mucus Fluid Crystals See PATH REV Fluid Crystal Source SYNOVIAL Fl Crystal Path Review Will follow Synovial Source KNEE Synovial Color Red Synovial Appearance Turbid Synovial WBC 5.4070 H Synovial RBC 0.570 H Synovial Tot Cell Ct 5.4070 H Synov Polynuclear WBCs 5.251 Synovial Polynuclear % 97.1 Synovial Mononuclear % 2.9 [address]ovial [address] Comment May follow Radiography Diagnostic Testing: Clinical Impression(s) from Imaging Studies Venous Doppler Study 07/23/21 15:46 Interpretation Summary There is no evidence of right lower extremity deep vein thrombosis. Right great saphenous vein appears patent and compressible segmentally. Ordering Physician: Mundo Bernardo Referring Physician: Brandon Cantor M.D. Performed By: Gracia Valera RVT Knee X-Ray 07/23/21 15:49 Discharge Plan Disposition Disposition: Acute Care Hospital [facility] Discharge Date/Time: 07/23/21 23:05
[2021-07-23 16:21] LABS: Absolute Neutrophil Count 9.3 X10^3/uL (2.0-7.7); Basophil# 0.04 X10^3/uL; Basophil% 0.3 % (0-1); Eosinophil# 0.01 X10^3/uL; Eosinophils% 0.1 % (0-5); Hematocrit 40.2 % (40-54); Hemoglobin 13.7 g/dL (13.0-16.5); Lymphocyte % 6.8 % (19-41); Mean Corp Hgb Conc 34.1 g/dL (32-36); Mean Corpuscular Hgb 30.8 pg (27.0-32.0); Mean Corpuscular Volume 90.3 fL (80-94); Monocyte# 1.46 X10^3/uL; Monocyte% 12.5 % (0-10); NRBC Flagged by Analyzer 0 % (0-5); Neutrophil # 9.34 X10^3/uL (2.7-7.7); Platelet Count 159 K/mm3 (150-450); RBC Distribution Width CV 14.2 % (11.6-14.6); Red Blood Count 4.45 M/mm3 (4.6-6.2); White Blood Count 11.7 K/mm3 (4.4-11.0)
[2021-07-23] MEDS: Acetaminophen 500 MG Tablet 1000 MG PO (16:30)
[2021-07-23] MEDS: 0.9% Normal Saline 1,000 ML 999 ML IV (16:31)
[2021-07-23 16:34] LABS: AST(SGOT) 18 U/L (15-37); Alanine Aminotransfer ALT/SGPT 13 U/L (16-61); Albumin, Serum 3.1 g/dL (3.2-5.0); Alkaline Phosphatase 66 U/L (45-117); Anion Gap 6 (5-15); BUN 26 mg/dL (7-18); BUN/Creat Ratio 23.9 RATIO (10-20); Chloride 100 mmol/L (98-107); Creatinine, Serum 1.09 mg/dL (0.70-1.30); EST Glomerular Filtration Rate 70 mL/min (>60); Est Glom Filt Rate - Afr Amer 85 mL/min (>60); Estimated Creatinine Clearance 59.53 ml/min; Globulin 3.2 g/dL (2.2-4.2); Glucose 99 mg/dL (74-106); Potassium 3.3 mmol/L (3.5-5.1); Protein, Total 6.3 g/dL (6.4-8.2); Sodium Level 137 mmol/L (136-145); Troponin-I HS 9 pg/mL (3.0-78.0)
[2021-07-23 16:35] LABS: Lactic Acid 2.7 mmol/L (0.4-1.9)
[2021-07-23 16:44] LABS: Bacteria 0 SEEN /hpf (None Seen); Mucous, Urine 0 SEEN /hpf (<or=2+); Red Blood Cells-Urine 0 SEEN /hpf (0-5)
[2021-07-23 16:47] LABS: Color, Urine Yellow (Yellow); Glucose, Dipstick Normal (Normal); Ketone-Dipstick 15 mg/dl (Negative); Leukocyte Esterase-Dipstick 500 /ul (Negative); Nitrite-Dipstick Negative (Negative); Occult Blood-Urine 10 /ul (Negative); Protein-Dipstick 30 mg/dl (Negative); Urine Bilirubin Dipstick Negative (Negative); Urine Clarity Clear (Clear); Urine Urobilinogen Normal (Normal)
[2021-07-23 16:55] LABS: Squamous Epithelial Cells - UA 0-5 SEEN /hpf (0-5); White Blood Cells 25-50 SEEN /hpf (0-5)
[2021-07-23 16:57] LABS: International Normalized Ratio 1.3; Prothrombin Time (Protime)PT. 15.6 SECONDS (11.7-14.9)
[2021-07-23 17:21] LABS: Erythrocyte Sedimentation Rate 12 mm/hr (0-20)
[2021-07-23] MEDS: Morphine 4 MG/ML Syringe IV (17:42)
[2021-07-23] MEDS: Ondansetron 4 MG/2 ML Vial IV (17:42)
--- NOTE | 2021-07-23 18:54 | PCM.CONS.GEN ---
Assessment & Plan Assessment/Plan (1) Knee effusion, right: PLAN: His diagnosis and treatment options were discussed with the emergency room physician. Also discussed with Dr. Jim Phan. Emergency room doctor refused to aspirate his knee. Dr. Phan felt the knee should be aspirated before antibiotics were started. Dr. Phan is not overly concerned for right postoperative knee joint infection and I would agree with that assessment. Patient and his were explained his treatment options. They did consent to have the knee aspirated under standard sterile technique. Procedure: After obtaining appropriate consent patient's right knee was prepped multiple times with Betadine followed by alcohol preps. Using sterile gloves and wearing a mask, I aspirated his right knee from a superior lateral approach. Approximately 35 to 40 cc of typical bloody fluid was obtained. No signs of pus. Fluid was sent for appropriate Gram stain, cultures, sensitivity, cell count, crystal exam, fungal cultures. New Mepilex dressing was applied. 4 x 4's and HARSHIL hose were placed over the puncture site and his previous blister site. Patient can continue with ice to the knee. Appropriate pain medication. Continue on Xarelto. Continue with knee motion and therapy and weightbearing as tolerated. From an orthopedic standpoint patient could be discharged to home. If there are medical concerns regarding weakness, disability, or possible UTI or other infection, appropriate work-up and treatment by the ER physician and/or hospitalist is in progress. This note was generated with [employer] dictation software. It may contain incorrect words, spelling, and punctuation that were not noted in checking the note before signing. HPI Consult Data Date of Consult: 07/23/21 HPI Narrative Reason for Consultation: Right knee pain and swelling HPI Narrative: MARTA OLIVIA, is a 76 M who presents with right knee pain and swelling. Reportedly he had a right total knee replacement done by Dr. Phan on July 21, 2021. He was discharged to home on July 22, 2021. Patient was not ambulating well. He felt he could not walk because of pain and swelling of the knee. He denies fever or chills. Reportedly he has been taking Tylenol for pain. Reportedly his did not fill his prescriptions for pain medication or blood thinners. Reportedly they did not call the office with any concerns [facility] Medical History Acute respiratory failure with hypoxia Anxiety Anxiety Anxiety Arthritis Arthritis Back pain BPH (benign prostatic hyperplasia) Cancer Cardiology follow-up encounter Change in bowel habit Chronic respiratory failure with hypoxia Closed right hip fracture Depression Depression Diarrhea Difficulty swallowing Fall Former smoker Heartburn History of echocardiogram History of edema History of pain when walking Hypercholesterolemia Hyperlipidemia Hypertension Hypertension Leg cramps Osteoarthritis Polycythemia Prostate disease Pulmonary embolism Pulmonary embolism Shortness of breath on exertion Skin cancer Syncope Wears dentures Wears glasses Home Medications lorazepam 1 mg tablet 1 mg PO PRN PRN 01/31/18 [History Last Taken 07/23/21] hydrochlorothiazide 25 mg tablet 25 mg PO DAILY 03/12/19 [History Last Taken 07/23/21] atorvastatin 20 mg PO DAILY 04/15/21 [History Last Taken 07/22/21] metoprolol tartrate 25 mg PO BID 04/15/21 [History Last Taken 07/23/21] potassium chloride 10 meq PO BID 04/15/21 [History Last Taken 07/23/21] Protein Nutritional Shake 100 ml PO DAILY 07/07/21 [History Last Taken 07/23/21] cholecalciferol (vitamin D3) [Vitamin D3] 25 mcg PO DAILY 07/07/21 [History Last Taken 07/23/21] acetaminophen 1,000 mg PO TID 14 Days #84 tab 07/22/21 [Rx Last Taken Unknown] oxycodone 5 - 10 mg PO Q4H PRN PRN 5 Days #60 tab 07/22/21 [Rx Last Taken Unknown] rivaroxaban [Xarelto] 10 mg PO 0600 #14 tab 07/22/21 [Rx Last Taken Unknown] sennosides-docusate sodium [Stool Softener-Stimulant Laxat] 2 tab PO BID #20 tab 07/22/21 [Rx Last Taken Unknown] paroxetine HCl 20 mg PO DAILY 07/23/21 [History Last Taken 07/23/21] Allergy/AdvReac Type Severity Reaction Status Date / Time No Known Allergies Allergy Verified 07/23/21 15:08 Family History Father Lung cancer Mother Parkinsons Heart failure Surgical History H/O colonoscopy History of cardiac catheterization History of colon surgery History of rhinoplasty History of total knee replacement (TKR) History of total right hip replacement History of transurethral resection of prostate reattachment of severed finger stoma reversal Social History household members: spouse housing: house 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al status: employed 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: [employer] pets and animals: Yes pets and animals: cat(s) and dog(s) Smoking Status: Former smoker quit date: 06/05/98 pack-years: 72 second hand exposure: No alcohol intake: never substance use type: does not use Physical Exam Narrative Right knee has some swelling. There is a palpable effusion not unusual for postoperative knee. His knee motion is 15-70 degrees. He is able to do a straight leg raise on the right. He had no posterior calf pain. Negative Homans' sign. He does have a small blister at the anterior upper leg. He has no drainage from the incision site which is intact with mitzi. No foul odor. Normal amount of warmth for postoperative knee. No thigh pain or swelling. Leg is neurovascular intact. Laboratory work and vital signs reviewed X-rays reviewed with no obvious acute abnormality Lab / Micro Data Result Diagrams: 07/23/21 16:03 07/23/21 15:25 Labs: Laboratory Results - last 24 hr 07/23/21 15:25: Sodium 137, Potassium 3.3 L, Chloride 100, Carbon Dioxide 31.0, Anion Gap 6, BUN 26 H, Creatinine 1.09, Estim Creat Clear Calc 59.53, Est GFR (MDRD) Af Amer 85, Est GFR (MDRD) Non-Af 70, BUN/Creatinine Ratio 23.9 H, Glucose 99, Calcium 9.0, Total Bilirubin 1.30 H, AST 18, ALT 13 L, Alkaline Phosphatase 66, Troponin I High Sens 9, C-React Prot Ext Range 112.00 H, Total Protein 6.3 L, Albumin 3.1 L, Globulin 3.2, Albumin/Globulin Ratio 1.0 07/23/21 15:25: Lactic Acid 2.7 H* 07/23/21 16:03: WBC 11.7 H, RBC 4.45 L, Hgb 13.7, Hct 40.2, MCV 90.3, MCH 30.8, MCHC 34.1, RDW Std Deviation 47.0 H, RDW Coeff of Daisy 14.2, Plt Count 159, MPV 10.0, Immature Gran % (Auto) 0.300, Neut % (Auto) 80.0 H, Lymph % (Auto) 6.8 L, [place] % (Auto) 12.5 H, Eos % (Auto) 0.1, Baso % (Auto) 0.3, Absolute Neuts (auto) 9.3 H, Absolute Lymphs (auto) 0.80 L, Nucleated RBC % 0, ESR 12 07/23/21 16:03: PT 15.6 H, INR 1.3, APTT 34.0 07/23/21 16:40: Urine Color Yellow, Urine Clarity Clear, Urine pH 7.0, Ur Specific [place] 1.010, Urine Protein 30 H, Urine Glucose (UA) Normal, Urine Ketones 15 H, Urine Occult Blood 10 H, Urine Nitrite Negative, Urine Bilirubin Negative, Urine Urobilinogen Normal, Ur Leukocyte Esterase 500 H, Urine RBC 0 SEEN, Urine WBC 25-50 SEEN, Ur Squamous Epith Cells 0-5 SEEN, Urine Bacteria 0 SEEN, Urine Mucus 0 SEEN Micro: Microbiology 07/23/21 16:14 Nasal Secretion SARS-CoV-2 Antigen (Rapid) - Final Radiology Impression Venous Doppler Study 07/23/21 15:46 Interpretation Summary There is no evidence of right lower extremity deep vein thrombosis. Right great saphenous vein appears patent and compressible segmentally. Ordering Physician: Mundo Bernardo Referring Physician: Brandon Cantor M.D. Performed By: Gracia Valera RVT Knee X-Ray 07/23/21 15:49
--- NOTE | 2021-07-23 18:59 | ED.RN ---
ASSISTED DR Timothy CASAREZ WITH TAPPING OF RT KNEE. 50 CC BLOODY FLUID RECEIVED.NEW BANDAGE APPLIED. PT TOLERATED WELL
[2021-07-23 19:17] LABS: Pathologist Comment May follow
[2021-07-23 20:12] LABS: Reflex Lactate? Y
[2021-07-23 20:14] LABS: Synovial Fld Mononuclear WBC % 2.9 %; Synovial Fld Polynuclear WBC % 97.1 %
[2021-07-23 20:58] LABS: Lactic Acid 0.9 mmol/L (0.4-1.9)
[2021-07-23 21:20] LABS: AUTO B FLUID DILUENT BKGD CT WBC <0.1 RBC <0.01 (W<.1,R<.01); CRYSTALS, BODY FLUID See PATH REV
[2021-07-23 21:21] LABS: Appearance /Synovial Fluid Turbid (CLEAR); Body Fluid QC Type(s) BF1Q; Color / Synovial Fluid Red (Pale Yellow); Source / Synovial Fluid KNEE; Source- Body Fluid SYNOVIAL
--- NOTE | 2021-07-23 21:32 | PCM.HP.STD ---
HPI - General General Date of Admission: 07/23/21 Date of Service: 07/23/21 Chief Complaint: Fever, progressive right knee pain HPI Narrative MARTA OLIVIA, is a 76 M who presents with the above. Patient was recently admitted and underwent a right total knee replacement done by Dr. Phan on 07/21/21. He was discharged home on 07/22/21. Patient stated that when he go home and anesthesia and pain meds wore off, he had severe right knee pain as well as inability to walk. His right knee was swollen. He could not get up because of generalized weakness from uncontrolled pain. Reportedly, his had not picked up his pain medication as well as his Xarelto. In the ED, his blood pressure is 145/62, temperature was 100.6F, maxed out to 102.1F, heart rate was 102, 96% on room air and later on dipped to 92% and required 2 L of oxygen to come back up to 94%. His RBC count was 11.7, hemoglobin 13.7, platelet 159, INR is 1.3, sodium is 137, potassium 3.3, chloride 100, BUN 26, creatinine 1.09, lactic acid 0.9, total bilirubin 1.3, CRP 112, albumin 3.1. UA is unremarkable. Bedside right knee aspiration yielded red, turbid fluid, WBC count was 5407. Patient's COVID-19 rapid antigen test was negative. Chest x-ray showed interstitial prominence concerning for pulmonary edema versus COVID-19 pneumonia. X-ray of the knee showed soft tissue edema and swelling. Doppler ultrasound of the right leg showed no acute DVT. [facility] Medical History (Updated 07/23/21 @ 23:35 by Mone Ordonez) Acute respiratory failure with hypoxia Anxiety Anxiety Anxiety Arthritis Arthritis Back pain BPH (benign prostatic hyperplasia) Cancer Cardiology follow-up encounter Change in bowel habit Chronic respiratory failure with hypoxia Closed right hip fracture Depression Depression Diarrhea Difficulty swallowing Fall Former smoker Heartburn History of echocardiogram History of edema History of pain when walking Hypercholesterolemia Hyperlipidemia Hypertension Hypertension Hypothyroidism Leg cramps Osteoarthritis Osteoporosis Polycythemia Prostate disease Pulmonary embolism Pulmonary embolism Shortness of breath on exertion Skin cancer Syncope Wears dentures Wears glasses Home Medications lorazepam 1 mg tablet 1 mg PO PRN PRN 01/31/18 [History Last Taken 07/23/21] hydrochlorothiazide 25 mg tablet 25 mg PO DAILY 03/12/19 [History Last Taken 07/23/21] atorvastatin 20 mg PO DAILY 04/15/21 [History Last Taken 07/22/21] metoprolol tartrate 25 mg PO BID 04/15/21 [History Last Taken 07/23/21] potassium chloride 10 meq PO BID 04/15/21 [History Last Taken 07/23/21] Protein Nutritional Shake 100 ml PO DAILY 07/07/21 [History Last Taken 07/23/21] cholecalciferol (vitamin D3) [Vitamin D3] 25 mcg PO DAILY 07/07/21 [History Last Taken 07/23/21] acetaminophen 1,000 mg PO TID 14 Days #84 tab 07/22/21 [Rx Last Taken Unknown] oxycodone 5 - 10 mg PO Q4H PRN PRN 5 Days #60 tab 07/22/21 [Rx Last Taken Unknown] rivaroxaban [Xarelto] 10 mg PO 0600 #14 tab 07/22/21 [Rx Last Taken Unknown] sennosides-docusate sodium [Stool Softener-Stimulant Laxat] 2 tab PO BID #20 tab 07/22/21 [Rx Last Taken Unknown] paroxetine HCl 20 mg PO DAILY 07/23/21 [History Last Taken 07/23/21] Allergy/AdvReac Type Severity Reaction Status Date / Time No Known Allergies Allergy Verified 07/23/21 15:08 Family History Father Lung cancer Mother Parkinsons Heart failure Surgical History H/O colonoscopy History of cardiac catheterization History of colon surgery History of rhinoplasty History of total knee replacement (TKR) History of total right hip replacement History of transurethral resection of prostate reattachment of severed finger stoma reversal Social History household members: spouse housing: house 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al status: employed 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: [employer] pets and animals: Yes pets and animals: cat(s) and dog(s) Smoking Status: Former smoker quit date: 06/05/98 pack-years: 72 second hand exposure: No alcohol intake: never substance use type: does not use ROS ROS Narrative Constitutional: Reports: Malaise, Weakness, Fatigue. Denies: Anorexia, Chills, Fever, Night Sweats, Weight Change Eyes: Denies: Blurred vision, Cataracts, Conjunctivae Inflammation, Pain, Redness, Vision Change HEENT: Denies: Difficulty Hearing, Difficulty Swallowing, Head Aches, Hearing Changes, Sinus Congestion, Sinus Drainage Cardiovascular: Denies: Chest Pain, Orthopnea, Palpitations Respiratory: Denies: Cough, Shortness of breath at rest, Sputum production Gastrointestinal: Denies: Abdominal Pain, Nausea, Vomiting Genitourinary: Denies: Dysuria Musculoskeletal: Admits to: joint Pain, Joint stiffness, Joint swelling, Joint Tenderness Skin: Denies: Rash, Wounds Neurological: Denies: Numbness, Tingling, Focal weakness Vital Signs Vital Signs Vital Signs: 07/23/21 15:17 07/23/21 15:46 07/23/21 16:46 Temperature 100.6 F H 101.2 F H Temperature Source Oral Temporal Pulse Rate 102 H 91 Respiratory Rate 16 18 Blood Pressure 145/62 H 153/60 H Blood Pressure Mean 89 91 Pulse Ox 96 96 Oxygen Delivery Method Room Air Room Air Room Air Oxygen Flow Rate (L/min) 07/23/21 17:35 07/23/21 18:18 07/23/21 19:00 Temperature 101.2 F H 102.1 F H Temperature Source Temporal Temporal Pulse Rate 101 H 101 H Respiratory Rate 18 18 Blood Pressure 134/54 H 169/68 H Blood Pressure Mean 80 101 Pulse Ox 98 96 Oxygen Delivery Method Room Air Nasal Cannula Oxygen Flow Rate (L/min) 07/23/21 20:10 Temperature 98.9 F Temperature Source Oral Pulse Rate 88 Respiratory Rate Blood Pressure 130/49 H Blood Pressure Mean 76 Pulse Ox 92 Oxygen Delivery Method Nasal Cannula Oxygen Flow Rate (L/min) 4 Weight Weight: 91.9 kg Body Mass Index (BMI) 29.0 Physical Exam Narrative Physical exam: General: Alert, Oriented x3, Cooperative, No apparent distress, Well developed, on 2 L of oxygen HEENT: Atraumatic Oral: Moist Mucosa Neck: Supple Lungs: Diminished to auscultation at the lung bases Cardiovascular: HS I+II, regular, no murmurs Abdomen: Bowel Sounds Present, Soft, Non Tender Extremities: Swelling right knee, warm to touch, erythematous, no bipedal edema Results Lab / Micro Data Result Diagrams: 07/23/21 16:03 07/23/21 15:25 Labs: Laboratory Results - last 24 hr 07/23/21 15:25: Sodium 137, Potassium 3.3 L, Chloride 100, Carbon Dioxide 31.0, Anion Gap 6, BUN 26 H, Creatinine 1.09, Estim Creat Clear Calc 59.53, Est GFR (MDRD) Af Amer 85, Est GFR (MDRD) Non-Af 70, BUN/Creatinine Ratio 23.9 H, Glucose 99, Calcium 9.0, Total Bilirubin 1.30 H, AST 18, ALT 13 L, Alkaline Phosphatase 66, Troponin I High Sens 9, C-React Prot Ext Range 112.00 H, Total Protein 6.3 L, Albumin 3.1 L, Globulin 3.2, Albumin/Globulin Ratio 1.0 07/23/21 15:25: Lactic Acid 2.7 H* 07/23/21 16:03: WBC 11.7 H, RBC 4.45 L, Hgb 13.7, Hct 40.2, MCV 90.3, MCH 30.8, MCHC 34.1, RDW Std Deviation 47.0 H, RDW Coeff of Daisy 14.2, Plt Count 159, MPV 10.0, Immature Gran % (Auto) 0.300, Neut % (Auto) 80.0 H, Lymph % (Auto) 6.8 L, [place] % (Auto) 12.5 H, Eos % (Auto) 0.1, Baso % (Auto) 0.3, Absolute Neuts (auto) 9.3 H, Absolute Lymphs (auto) 0.80 L, Nucleated RBC % 0, ESR 12 07/23/21 16:03: PT 15.6 H, INR 1.3, APTT 34.0 07/23/21 16:40: Urine Color Yellow, Urine Clarity Clear, Urine pH 7.0, Ur Specific [place] 1.010, Urine Protein 30 H, Urine Glucose (UA) Normal, Urine Ketones 15 H, Urine Occult Blood 10 H, Urine Nitrite Negative, Urine Bilirubin Negative, Urine Urobilinogen Normal, Ur Leukocyte Esterase 500 H, Urine RBC 0 SEEN, Urine WBC 25-50 SEEN, Ur Squamous Epith Cells 0-5 SEEN, Urine Bacteria 0 SEEN, Urine Mucus 0 SEEN 07/23/21 17:40: Fluid Crystals See PATH REV, Fluid Crystal Source SYNOVIAL, Fl Crystal Path Review Will follow, Synovial Source KNEE, Synovial Color Red, Synovial Appearance Turbid, Synovial WBC 5.4070 H, Synovial RBC 0.570 H, Synovial Tot Cell Ct 5.4070 H, Synov Polynuclear WBCs 5.251, Synovial Polynuclear % 97.1, Synovial Mononuclear % 2.9, Synovial Path Comment May follow 07/23/21 20:20: Lactic Acid 0.9 Micro: Microbiology 07/23/21 17:40 Fluid - Other Gram Stain - Preliminary 07/23/21 16:14 Nasal Secretion SARS-CoV-2 Antigen (Rapid) - Final Radiology Impression Venous Doppler Study 07/23/21 15:46 Interpretation Summary There is no evidence of right lower extremity deep vein thrombosis. Right great saphenous vein appears patent and compressible segmentally. Ordering Physician: Mundo Bernardo Referring Physician: Brandon Cantor M.D. Performed By: Gracia Valera RVT Knee X-Ray 07/23/21 15:49 Assessment & Plan Assessment/Plan (1) Knee effusion, right: (2) Fever: QUALIFIERS: Fever type: due to other condition Qualified Code(s): R50.81 - Fever presenting with conditions classified elsewhere PLAN: 1. Fever, inability to walk, concerning for possible infected right knee joint Patient with recent right knee replacement, postop day #2 Knee aspiration showed WBC count of 5407 Started on IV vancomycin and Zosyn, continue same, follow-up on knee aspirate cultures Orthopedics consulted from the ED 2. Acute hypoxic respiratory insufficiency unclear etiology Patient currently on 2 L of oxygen Rapid COVID-19 antigen test is negative, COVID-19 PCR is negative BNPep is 86 Will give a trial of 20mg Lasix IV x1, Continue to wean off oxygen, encourage use of incentive spirometer, continue on Xarelto 3. Hypokalemia, likely secondary to hydrochlorothiazide use, replaced, recheck in a.m. 4. Rest of his chronic medical conditions including hypertension/hyperlipidemia/anxiety/depression/therapy/history of PE continues to be stable Continue rest of his home medications -metoprolol, hydrochlorothiazide, Paxil, statin 5. DVT prophylaxis -on Xarelto Charges/Coding Visit Charges Inpatient E&M: 03996 Init Hosp L3
--- NOTE | 2021-07-23 22:10 | RAD_ITS ---
STUDY: X-RAY CHEST REASON FOR EXAM: Male, 76 years old. fever TECHNIQUE: Single AP portable view of the chest. COMPARISON: None. FINDINGS: Lungs are mildly hypoinflated. Interstitial prominence throughout. Possible pulmonary edema versus COVID pneumonia. There is no demonstrated pleural abnormality. There is mild cardiac enlargement. Normal mediastinum and zach. Normal visualized pulmonary arteries. Normal visualized aortic arch and descending thoracic aorta. Normal visualized thoracic spine. Normal visualized ribs, clavicles, and shoulders. There is no demonstrated abnormality of the visualized soft tissue structures of the upper abdomen. RAD/Chest 1 View (Portable) IMPRESSION: Interstitial prominence with differential as above Electronically Signed: Jose Antonio Rogel DO at 23:01 EST ,
--- NOTE | 2021-07-23 22:47 | ED.RN ---
S/[facility] [place] updated on room number and POC as requested.
[2021-07-24] VITALS (17 sets, daily range): BP systolic 105–160; BP diastolic 39–56; PULSE 67–90; RESP 16–18; TEMP 36.7–37.4; O2SAT 85–97
--- NOTE | 2021-07-24 00:23 | PCM.RX.CS ---
Consult Pharmacy has been consulted to manage selected antiobiotic: Vancomycin Type of Consult: New start Suspected Infection: Other Prior Doses of Antibiotics Received/Current Regimen: Medications Vancomycin HCl (Vancomycin) 1,000 mg in 200 mls @ 200 mls/hr IV Q12H KUSUM Discontinued Medications Vancomycin HCl 1,500 mg/ (Sodium Chloride) 530 mls @ 250 mls/hr IV X1 ONE Stop: 07/24/21 00:03 Last Admin: 07/23/21 23:41 Dose: 250 mls/hr Labs: Sodium 137 mmol/L (136-145) 07/23/21 15:25 Potassium 3.3 mmol/L (3.5-5.1) L 07/23/21 15:25 Chloride 100 mmol/L (98-107) 07/23/21 15:25 Carbon Dioxide 31.0 mmol/L (21.0-32.0) 07/23/21 15:25 Anion Gap 6 (5-15) 07/23/21 15:25 BUN 26 mg/dL (7-18) H 07/23/21 15:25 Creatinine 1.09 mg/dL (0.70-1.30) 07/23/21 15:25 Est GFR (MDRD) Af Amer 85 mL/min (>60) 07/23/21 15:25 Est GFR (MDRD) Non-Af 70 mL/min (>60) 07/23/21 15:25 BUN/Creatinine Ratio 23.9 RATIO (10-20) H 07/23/21 15:25 Glucose 99 mg/dL (74-106) 07/23/21 15:25 Microbiology: Microbiology 07/23/21 17:40 Fluid - Other Gram Stain - Preliminary 07/23/21 16:14 Nasal Secretion SARS-CoV-2 Antigen (Rapid) - Final Weight used for dosin.8 kg Estimated Creatinine Clearance: 60 Goal Trough: 15-20 mcg/mL Pharmacy Plan for Drug Dosing: Pharmacy Service will continue to monitor and adjust dosing as required. Follow-Up Labs: Trough Vancomycin Labs to be done on [date and time ordered]: 07/25/21 @1100
[2021-07-24] MEDS: Potassium Chloride Oral Tablet 20 MEQ 40 MEQ PO (00:50)
[2021-07-24] MEDS: Furosemide 20 MG/2 ML VIAL IV (00:50)
[2021-07-24] MEDS: 0.9% Saline Lock 10 ML Syringe IV (00:52)
[2021-07-24] MEDS: Acetaminophen 500 MG Tablet 1000 MG PO ×4 (00:53→21:42)
[2021-07-24] MEDS: Senna/Docusate Sodium 1 Tablet 2 TABLET PO ×3 (00:53→21:43)
[2021-07-24] MEDS: Metoprolol Tartrate 25 MG Tablet PO ×3 (00:53→21:43)
[2021-07-24] MEDS: Rivaroxaban 10 MG Tablet PO (05:57)
--- NOTE | 2021-07-24 09:25 | PCM.PN.HOSP ---
Subjective Subjective Knee feels better today, he states that he overall feels a bit better today. He states a history when EMS came to his house and he was little bit confused Objective Data Objective Data Vital Signs: Vital Signs Temp Pulse Resp BP Pulse Ox 98.5 F 72 18 121/51 H 85 07/24/21 08:23 07/24/21 08:23 07/24/21 09:00 07/24/21 08:23 07/24/21 09:00 Oxygen Flow Rate (L/min) 2 Oxygen Delivery Method Room Air Weight: 195 lb 12.328 oz Body Mass Index (BMI) 28.0 Intake & Output: Intake and Output for Last 24 Hours 07/23/21 07/24/21 07/25/21 03:59 03:59 03:59 Intake Total 1050 / 1050 530 / 530 Output Total 800 / 800 Balance 1050 / 1050 -270 / -270 Lab / Micro Data Result Diagrams: 07/23/21 16:03 07/23/21 15:25 Labs: Laboratory Results - last 24 hr 07/23/21 15:25: Sodium 137, Potassium 3.3 L, Chloride 100, Carbon Dioxide 31.0, Anion Gap 6, BUN 26 H, Creatinine 1.09, Estim Creat Clear Calc 59.53, Est GFR (MDRD) Af Amer 85, Est GFR (MDRD) Non-Af 70, BUN/Creatinine Ratio 23.9 H, Glucose 99, Calcium 9.0, Total Bilirubin 1.30 H, AST 18, ALT 13 L, Alkaline Phosphatase 66, Troponin I High Sens 9, C-React Prot Ext Range 112.00 H, Total Protein 6.3 L, Albumin 3.1 L, Globulin 3.2, Albumin/Globulin Ratio 1.0 07/23/21 15:25: Lactic Acid 2.7 H* 07/23/21 16:03: WBC 11.7 H, RBC 4.45 L, Hgb 13.7, Hct 40.2, MCV 90.3, MCH 30.8, MCHC 34.1, RDW Std Deviation 47.0 H, RDW Coeff of [place] 14.2, Plt Count 159, MPV 10.0, Immature Gran % (Auto) 0.300, Neut % (Auto) 80.0 H, Lymph % (Auto) 6.8 L, [place] % (Auto) 12.5 H, Eos % (Auto) 0.1, Baso % (Auto) 0.3, Absolute Neuts (auto) 9.3 H, Absolute Lymphs (auto) 0.80 L, Nucleated RBC % 0, ESR 12 07/23/21 16:03: PT 15.6 H, INR 1.3, APTT 34.0 07/23/21 16:03: B-Natriuretic Peptide 86.0 07/23/21 16:40: Urine Color Yellow, Urine Clarity Clear, Urine pH 7.0, Ur Specific [place] 1.010, Urine Protein 30 H, Urine Glucose (UA) Normal, Urine Ketones 15 H, Urine Occult Blood 10 H, Urine Nitrite Negative, Urine Bilirubin Negative, Urine Urobilinogen Normal, Ur Leukocyte Esterase 500 H, Urine RBC 0 SEEN, Urine WBC 25-50 SEEN, Ur Squamous Epith Cells 0-5 SEEN, Urine Bacteria 0 SEEN, Urine Mucus 0 SEEN 07/23/21 17:40: Fluid Crystals See PATH REV, Fluid Crystal Source SYNOVIAL, Fl Crystal Path Review Will follow, Synovial Source KNEE, Synovial Color Red, Synovial Appearance Turbid, Synovial WBC 27.0400 H, Synovial RBC 2.850 H, Synovial Tot Cell Ct 27.0400 H, Synov Polynuclear WBCs 26.250, Synov Mononuclear WBCs 0.780, Synovial Polynuclear % 97.1, Synovial Mononuclear % 2.9, Synovial Path Comment May follow 07/23/21 20:20: Lactic Acid 0.9 07/23/21 21:35: COVID-19 (YOLANDA) Not Detected Micro: Microbiology 07/23/21 17:40 Fluid - Other Gram Stain - Preliminary 07/23/21 16:14 Nasal Secretion SARS-CoV-2 Antigen (Rapid) - Final Radiography Diagnostic Testing: Radiology Impression Venous Doppler Study 07/23/21 15:46 Interpretation Summary There is no evidence of right lower extremity deep vein thrombosis. Right great saphenous vein appears patent and compressible segmentally. Ordering Physician: Mundo Bernardo Referring Physician: Brandon Cantor M.D. Performed By: Gracia Valera RVT Knee X-Ray 07/23/21 15:49 Chest X-Ray 07/23/21 22:10 IMPRESSION: Interstitial prominence with differential as above Electronically Signed: Jose Antonio Rogel DO at 23:01 EST Reading Location ID and State: [id number] Tel , Service support , Physical Exam Const alert, oriented x3 and no apparent distress General Appearance: cooperative HEENT normocephalic and moist oral mucous membranes Eyes PERRL, EOMs intact bilaterally and conjunctivae normal Neck supple and no JVD Resp normal respiratory effort, no retractions and no use of accessory muscles Auscultation: diminished lung sounds; Negative for crackles, rales, rhonchi or wheezes Cardio regular rate, regular rhythm, S1 normal heart sound, S2 normal heart sound and no murmurs GI soft to palpation, non-tender and non-distended; Negative for hepatosplenomegaly Extremity no clubbing, cyanosis or edema Extremity Narrative: Right knee dressing with a small spot on the inferior aspect with blood otherwise the knee is a little bit red Skin no rashes or lesions noted Neuro no focal motor deficits and no sensory deficits noted Psych affect normal Appearance: appropriate Assessment & Plan Assessment/Plan (1) Knee effusion, right: (2) Fever: QUALIFIERS: Fever type: due to other condition Qualified Code(s): R50.81 - Fever presenting with conditions classified elsewhere PLAN: 1. Fever with a swollen right knee ?Orthopedic surgery did not feel that this was infected so did not want to admit ?Knee was drained and does not appear to have an infection however cultures are pending ?Continue with Zosyn and vancomycin ?Consult orthopedic surgery to assist in management of postop complication 2. Acute hypoxic respiratory failure, unknown etiology ?This is felt possibly due to fluid overload, Covid testing is negative. ?Continue with Lasix ?He is 85% today on room air ?Continue with the Xarelto and incentive spirometry 3. HTN/HLD ?Blood pressure stable ?Continue with his home blood pressure medication ?Continue with statin 4. Depression/anxiety ?Stable ?Continue with his home medications 5. BPH ?Stable ?Continue his home medications DVT: Xarelto Charges/Coding Visit Charges Inpatient E&M: 59571 Subs Hosp L2
[2021-07-24] MEDS: Potassium Chloride Oral Tablet 10 MEQ PO ×2 (09:57→17:40)
[2021-07-24] MEDS: Vancomycin IV 1,000 MG/200 ML BAG 200 MG IV (11:33)
[2021-07-24] MEDS: Ensure Clear 120 ML Liquid 100 ML PO (11:33)
[2021-07-24] MEDS: Paroxetine 20 MG Tablet PO (12:39)
[2021-07-24] MEDS: hydroCHLOROthiazide 25 MG Tablet PO (12:40)
[2021-07-24] MEDS: Cholecalciferol (VIT D3) 25 MCG TABLET (1,000 UNITS) PO (12:40)
--- NOTE | 2021-07-24 12:40 | NURSING ---
Pt refused to take AM meds until after his brought his dentures in. Meds given late at this time.
--- NOTE | 2021-07-24 14:58 | PCM.PN.ORT ---
Subjective Subjective 76-year-old male with multiple medical comorbidities presents today 3 days postoperative from a right total knee replacement. Patient was discharged on postop day 1 thought of past therapy and doing well. However when he went home his states he was sleeping And was using his pain medications he became weak at home. He was having difficulty ambulating. Eventually yesterday, he was unable to stand up from a chair and lowered himself to the floor. At that point his called the medics. He was evaluated and found to have difficulty with ambulation and brought to the emergency department. In the emergency department he was noted to have a fever. Patient reports that he was using his incentive spirometer at home however his states not nearly as often as directed. Chest x-ray showed evidence of pulmonary issues. X-rays of the knee showed no definitive changes. Patient is on Xarelto for DVT prophylaxis due to previous VTE. At the same time he also complained of pain in the knee. Due to the fevers emergency department did infectious work-up. Due to elevated CRP we did elect to aspirate the knee. The knee was aspirated by my partner. I was sent pictures of the fluid. The fluid was dark bloody fluid. Currently patient reports knee is improved today. His is at his bedside and notes he has perked up somewhat today. They have started the patient on vancomycin and Zosyn which appears to be amos coverage for his fever and pulmonary findings. Objective Data Objective Data Vital Signs: Vital Signs Temp Pulse Resp BP Pulse Ox 99.3 F H 79 18 118/51 L 95 07/24/21 12:37 07/24/21 12:40 07/24/21 12:37 07/24/21 12:37 07/24/21 12:37 Oxygen Flow Rate (L/min) 2 Oxygen Delivery Method Nasal Cannula Weight: 195 lb 12.328 oz Body Mass Index (BMI) 28.0 Intake & Output: Intake and Output for Last 24 Hours 07/22/21 07/23/21 07/24/21 23:59 23:59 23:59 Intake Total 1050 / 1050 1380 / 1380 Output Total 1100 / 1100 Balance 1050 / 1050 280 / 280 Lab / Micro Data Result Diagrams: 07/23/21 16:03 07/23/21 15:25 Labs: Laboratory Results - last 24 hr 07/23/21 15:25: Sodium 137, Potassium 3.3 L, Chloride 100, Carbon Dioxide 31.0, Anion Gap 6, BUN 26 H, Creatinine 1.09, Estim Creat Clear Calc 59.53, Est GFR (MDRD) Af Amer 85, Est GFR (MDRD) Non-Af 70, BUN/Creatinine Ratio 23.9 H, Glucose 99, Calcium 9.0, Total Bilirubin 1.30 H, AST 18, ALT 13 L, Alkaline Phosphatase 66, Troponin I High Sens 9, C-React Prot Ext Range 112.00 H, Total Protein 6.3 L, Albumin 3.1 L, Globulin 3.2, Albumin/Globulin Ratio 1.0 07/23/21 15:25: Lactic Acid 2.7 H* 07/23/21 16:03: WBC 11.7 H, RBC 4.45 L, Hgb 13.7, Hct 40.2, MCV 90.3, MCH 30.8, MCHC 34.1, RDW Std Deviation 47.0 H, RDW Coeff of Daisy 14.2, Plt Count 159, MPV 10.0, Immature Gran % (Auto) 0.300, Neut % (Auto) 80.0 H, Lymph % (Auto) 6.8 L, [place] % (Auto) 12.5 H, Eos % (Auto) 0.1, Baso % (Auto) 0.3, Absolute Neuts (auto) 9.3 H, Absolute Lymphs (auto) 0.80 L, Nucleated RBC % 0, ESR 12 07/23/21 16:03: PT 15.6 H, INR 1.3, APTT 34.0 07/23/21 16:03: B-Natriuretic Peptide 86.0 07/23/21 16:40: Urine Color Yellow, Urine Clarity Clear, Urine pH 7.0, Ur Specific [place] 1.010, Urine Protein 30 H, Urine Glucose (UA) Normal, Urine Ketones 15 H, Urine Occult Blood 10 H, Urine Nitrite Negative, Urine Bilirubin Negative, Urine Urobilinogen Normal, Ur Leukocyte Esterase 500 H, Urine RBC 0 SEEN, Urine WBC 25-50 SEEN, Ur Squamous Epith Cells 0-5 SEEN, Urine Bacteria 0 SEEN, Urine Mucus 0 SEEN 07/23/21 17:40: Fluid Crystals See PATH REV, Fluid Crystal Source SYNOVIAL, Fl Crystal Path Review Will follow, Synovial Source KNEE, Synovial Color Red, Synovial Appearance Turbid, Synovial WBC 27.0400 H, Synovial RBC 2.850 H, Synovial Tot Cell Ct 27.0400 H, Synov Polynuclear WBCs 26.250, Synov Mononuclear WBCs 0.780, Synovial Polynuclear % 97.1, Synovial Mononuclear % 2.9, Synovial Path Comment May follow 07/23/21 20:20: Lactic Acid 0.9 07/23/21 21:35: COVID-19 (YOLANDA) Not Detected Micro: Microbiology 07/23/21 17:40 Fluid - Other Gram Stain - Final 07/23/21 17:40 Fluid - Other Body Fluid Culture - Preliminary No growth-Final to follow 07/23/21 16:14 Nasal Secretion SARS-CoV-2 Antigen (Rapid) - Final Radiography Diagnostic Testing: Radiology Impression Venous Doppler Study 07/23/21 15:46 Interpretation Summary There is no evidence of right lower extremity deep vein thrombosis. Right great saphenous vein appears patent and compressible segmentally. Ordering Physician: Mundo Bernardo Referring Physician: Brandon Cantor M.D. Performed By: Gracia Valera RVT Knee X-Ray 07/23/21 15:49 Chest X-Ray 07/23/21 22:10 IMPRESSION: Interstitial prominence with differential as above Electronically Signed: Jose Antonio Rogel DO at 23:01 EST , Physical Exam Const oriented x3 and no apparent distress Extremity Extremity Narrative: Right lower extremity: Dressing is clean dry and intact Sensations intact to light touch saphenous, sural, superficial peroneal, deep peroneal, and tibial distributions Motors intact EHL, DF, PF calves are soft and supple Patient does have a swelling blister on the distal medial area of the leg just at the border of the dressing which is not unroofed at this time. Assessment & Plan Assessment/Plan (1) Status post total right knee replacement: PLAN: Patient is 3 days status post total knee replacement on the right. 1. DVT prophylaxis: Continue Xarelto for total 2 weeks 10 mg daily 2. Physical therapy: Weightbearing as tolerated activity as tolerated should follow total knee protocol. 3. Pain control: Recommend Tylenol and oxycodone as tolerated. 4. Fever/elevated white blood cell count: Likely related to postoperative atelectasis based on x-rays. Could be related to hemarthrosis as well. 5. Weakness: Patient was unable to successfully transition home. His was unable to care for him. At this time disposition should be to [facility] facility. 6. Disposition: Patient was min to the hospital due to inability to return home. Aspiration was consistent with hemarthrosis. We will continue to follow cultures. No further orthopedic intervention at this time. Patient should be discharged to [facility] facility or inpatient rehabilitation or transitional care unit upon discharge from the hospital. He failed discharge to home. Follow-up in office 2 weeks postoperatively should have scheduled appointment. Xarelto for 2 weeks. Haley can be removed postop day 13. We will continue to follow cultures and alter course as necessary. (2) Knee effusion, right: PLAN: Likely related to hemarthrosis. Aspiration was reviewed. At this time cultures are negative. Physical examination is not consistent with acute postoperative infection. Patient does have some blistering. His swelling is no greater than would be expected. Patient's original presentation to the hospital was not related to the knee effusion or pain however, it was related to progressive weakness. We will continue to follow cultures and alter course as necessary. (3) Fever: QUALIFIERS: Fever type: due to other condition Qualified Code(s): R50.81 - Fever presenting with conditions classified elsewhere (4) Blister of lower leg: PLAN: Continue to monitor blister on skin. If and when it becomes unroofed recommend local triple antibiotic ointment and daily dressing changes until adequately healed.
--- NOTE | 2021-07-24 17:01 | CASEMGMT ---
SAADIA SOL chart review: patient at [facility] under observation level of care on 07/21-07/22/21 after rigth total knee replacement. See SAADIA SOL assessment from 07/22/21. Patient was discharged to home with assistance of and outpatient therapy scheduled at [facility] starting 07/23/21. Patient returned to [facility] ED for increased weakness and difficulty ambulating. Knee was swollen and red. Temp was initially 100.6 in ED. Knee aspiration was done and cultures pending. Patient was started on IV ATBs. SAADIA SOL in to discuss needs at discharge. Patient states his in unable to assist patient at home and would like to go to TCU at discharge after discussing with Dr. Phan. SAADIA SOL updated SW regarding request for TCU at discharge. Discharge Disposition: TCU pending acceptance.
--- NOTE | 2021-07-24 17:14 | CM.ED ---
Addendum entered by Laurie Webster 07/24/21 20:00: MELANIE met with patient in his room. Patient said that his wants him to go to TCU at [facility]. SW asked patient if he had an alternative plan for SNF. Patient said no. Patient was encouraged to review the list of SNF with his and provide the social work assistant with an alternative placement on Monday. Patient verbalized understanding. Plan: To be determined. Patient wants TCU [facility]CU[facility] Original Note: MELANIE Note Referral Source: SAADIA SOL Referral Reason: Discharge planning Per CM patient wants TCU at discharge. MELANIE provided patient with list of SNF for [facility]. MELANIE sent email to Desiree advising patient would like TCU at discharge. Plan: TO be determined [facility] Pasc[facility]
[2021-07-24] MEDS: Atorvastatin Calcium 20 MG Tablet PO (21:42)
[2021-07-25] VITALS (11 sets, daily range): BP systolic 115–136; BP diastolic 49–76; PULSE 63–87; RESP 16–18; TEMP 37.1–37.3; O2SAT 94–97
[2021-07-25] MEDS: Vancomycin IV 1,000 MG/200 ML BAG 200 MG IV ×2 (00:48→11:40)
[2021-07-25] MEDS: Acetaminophen 500 MG Tablet 1000 MG PO ×3 (05:25→20:03)
[2021-07-25] MEDS: Rivaroxaban 10 MG Tablet PO (05:26)
[2021-07-25 06:41] LABS: Absolute Lymphocyte Count 0.87 X10^3/uL (0.83-4.51); Absolute Neutrophil Count 7.4 X10^3/uL (2.0-7.7); Basophil# 0.02 X10^3/uL; Basophil% 0.2 % (0-1); Eosinophil# 0.16 X10^3/uL; Eosinophils% 1.7 % (0-5); Hematocrit 35.3 % (40-54); Hemoglobin 12.3 g/dL (13.0-16.5); Lymphocyte # 0.87 X10^3/ul (0.83-4.51); Lymphocyte % 9.3 % (19-41); Mean Corp Hgb Conc 34.8 g/dL (32-36); Mean Corpuscular Hgb 31.2 pg (27.0-32.0); Mean Corpuscular Volume 89.6 fL (80-94); Mean Platelet Vol. 10.7 fl (6.2-12.0); Monocyte# 0.88 X10^3/uL; Monocyte% 9.4 % (0-10); NRBC Flagged by Analyzer 0 % (0-5); Neutrophil # 7.35 X10^3/uL (2.7-7.7); Platelet Count 160 K/mm3 (150-450); RBC Distribution Width CV 13.9 % (11.6-14.6); RBC Distribution Width SD 45.9 fl (35.1-43.9); Red Blood Count 3.94 M/mm3 (4.6-6.2); White Blood Count 9.3 K/mm3 (4.4-11.0)
[2021-07-25 07:18] LABS: Anion Gap 5 (5-15); BUN 23 mg/dL (7-18); BUN/Creat Ratio 23.6 RATIO (10-20); Calcium,Total 8.5 mg/dL (8.5-10.1); Chloride 100 mmol/L (98-107); Creatinine, Serum 0.97 mg/dL (0.70-1.30); EST Glomerular Filtration Rate 80 mL/min (>60); Est Glom Filt Rate - Afr Amer 96 mL/min (>60); Glucose 93 mg/dL (74-106); Potassium 3.1 mmol/L (3.5-5.1); Sodium Level 136 mmol/L (136-145)
[2021-07-25] MEDS: Metoprolol Tartrate 25 MG Tablet PO ×2 (09:01→20:04)
[2021-07-25] MEDS: Paroxetine 20 MG Tablet PO (09:02)
[2021-07-25] MEDS: Cholecalciferol (VIT D3) 25 MCG TABLET (1,000 UNITS) PO (09:02)
[2021-07-25] MEDS: Potassium Chloride Oral Tablet 10 MEQ PO ×2 (09:02→16:42)
[2021-07-25] MEDS: hydroCHLOROthiazide 25 MG Tablet PO (09:02)
--- NOTE | 2021-07-25 09:18 | PN.HOSP_ITS ---
Subjective Subjective Feels like he is doing okay today, did not sleep very well overnight. His fevers from admission have resolved with drainage of the knee and IV antibiotics. Cultures are pending Objective Data Objective Data Vital Signs: Vital Signs Temp Pulse Resp BP Pulse Ox 98.9 F 76 18 115/76 96 07/25/21 08:56 07/25/21 09:01 07/25/21 08:56 07/25/21 08:56 07/25/21 08:56 Oxygen Flow Rate (L/min) 2 Oxygen Delivery Method Nasal Cannula Weight: 195 lb 12.328 oz Body Mass Index (BMI) 28.0 Intake & Output: Intake and Output for Last 24 Hours 07/24/21 07/25/21 07/26/21 03:59 03:59 03:59 Intake Total 1050 / 1050 2580 / 2580 400 / 400 Output Total 1425 / 1425 200 / 200 Balance 1050 / 1050 1155 / 1155 200 / 200 Lab / Micro Data Result Diagrams: 07/25/21 05:41 07/25/21 05:41 Labs: Laboratory Results - last 24 hr 07/25/21 05:41: WBC 9.3, RBC 3.94 L, Hgb 12.3 L, Hct 35.3 L, MCV 89.6, MCH 31.2, MCHC 34.8, RDW Std Deviation 45.9 H, RDW Coeff of Daisy 13.9, Plt Count 160, MPV 10.7, Immature Gran % (Auto) 0.400, Neut % (Auto) 79.0 H, Lymph % (Auto) 9.3 L, [place] % (Auto) 9.4, Eos % (Auto) 1.7, Baso % (Auto) 0.2, Absolute Neuts (auto) 7.4, Absolute Lymphs (auto) 0.87, Nucleated RBC % 0 07/25/21 05:41: Sodium 136, Potassium 3.1 L, Chloride 100, Carbon Dioxide 31.0, Anion Gap 5, BUN 23 H, Creatinine 0.97, Estim Creat Clear Calc 66.90, Est GFR (MDRD) Af Amer 96, Est GFR (MDRD) Non-Af 80, BUN/Creatinine Ratio 23.6 H, Glucose 93, Calcium 8.5 Micro: Microbiology 07/23/21 17:40 Fluid - Other Gram Stain - Final 07/23/21 17:40 Fluid - Other Body Fluid Culture - Preliminary No growth-Final to follow 07/23/21 16:14 Nasal Secretion SARS-CoV-2 Antigen (Rapid) - Final Physical Exam Const alert, oriented x3 and no apparent distress General Appearance: cooperative HEENT normocephalic and moist oral mucous membranes Eyes PERRL, EOMs intact bilaterally and conjunctivae normal Neck supple and no JVD Resp normal respiratory effort, no retractions and no use of accessory muscles Auscultation: diminished lung sounds; Negative for crackles, rales, rhonchi or wheezes Cardio regular rate, regular rhythm, S1 normal heart sound, S2 normal heart sound and no murmurs GI soft to palpation, non-tender and non-distended; Negative for hepatosplenomegaly Extremity no clubbing, cyanosis or edema Extremity Narrative: Right knee dressing with a small spot on the inferior aspect with blood otherwise the knee is a little bit red Skin no rashes or lesions noted Neuro no focal motor deficits and no sensory deficits noted Psych affect normal Appearance: appropriate Assessment & Plan Assessment/Plan (1) Knee effusion, right: (2) Fever: QUALIFIERS: Fever type: due to other condition Qualified Code(s): R50.81 - Fever presenting with conditions classified elsewhere PLAN: 1. Fever with a swollen right knee ?Orthopedic surgery did not feel that this was infected so did not want to admit ?Knee was drained and does not appear to have an infection however cultures are pending ?Gram stain from the knee drainage does not show any organisms, will await final cultures ?Continue with Zosyn and vancomycin ?Consult orthopedic surgery to assist in management of postop complication ?PT/OT for evaluation and discharge planning and placement 2. Acute hypoxic respiratory failure, unknown etiology ?This is felt possibly due to fluid overload, Covid testing is negative. ?Continue with Lasix ?He is 85% today on room air ?Continue with the Xarelto and incentive spirometry 3. HTN/HLD ?Blood pressure stable ?Continue with his home blood pressure medication ?Continue with statin 4. Depression/anxiety ?Stable ?Continue with his home medications 5. BPH ?Stable ?Continue his home medications DVT: Xarelto Charges/Coding Visit Charges Inpatient E&M: 76016 Subs Hosp L2
[2021-07-25 09:45] LABS: Magnesium 1.9 mg/dL (1.6-2.6); Phosphorus 2.4 mg/dL (2.5-4.9)
[2021-07-25 11:47] LABS: Vancomycin, Trough Level 11.6 ug/mL (5.0-15.0)
[2021-07-25] MEDS: Potassium Chloride Oral Tablet 20 MEQ 60 MEQ PO (13:56)
--- NOTE | 2021-07-25 16:44 | PCM.RX.CS ---
Consult Pharmacy has been consulted to manage selected antiobiotic: Vancomycin Type of Consult: Follow-up Prior Doses of Antibiotics Received/Current Regimen: Has been on 1gm iv q12h. Labs: Sodium 136 mmol/L (136-145) 07/25/21 05:41 Potassium 3.1 mmol/L (3.5-5.1) L 07/25/21 05:41 Chloride 100 mmol/L (98-107) 07/25/21 05:41 Carbon Dioxide 31.0 mmol/L (21.0-32.0) 07/25/21 05:41 Anion Gap 5 (5-15) 07/25/21 05:41 BUN 23 mg/dL (7-18) H 07/25/21 05:41 Creatinine 0.97 mg/dL (0.70-1.30) 07/25/21 05:41 Est GFR (MDRD) Af Amer 96 mL/min (>60) 07/25/21 05:41 Est GFR (MDRD) Non-Af 80 mL/min (>60) 07/25/21 05:41 BUN/Creatinine Ratio 23.6 RATIO (10-20) H 07/25/21 05:41 Glucose 93 mg/dL (74-106) 07/25/21 05:41 Vancomycin Trough 11.6 ug/mL (5.0-15.0) 07/25/21 11:03 Microbiology: Microbiology 07/23/21 16:40 Urine, Clean Catch Urine Culture - Preliminary Culture exhibits no growth. 07/23/21 17:40 Fluid - Other Gram Stain - Final 07/23/21 17:40 Fluid - Other Body Fluid Culture - Preliminary No growth-Final to follow 07/23/21 16:14 Nasal Secretion SARS-CoV-2 Antigen (Rapid) - Final Weight used for dosin.8 kg Estimated Creatinine Clearance: 67 ml/min Goal Trough: 15-20 mcg/mL Pharmacy Plan for Drug Dosing: Trough today ~10 hrs post dose reported as 11.6. Goal is 15-20mcg/ml. Renal Cr Cl slightly improved. Will increase dose to 1250mg iv q12h. Have ordered new trough in 2 days before 4th dose of new dosage schedule. Pharmacy Service will continue to monitor and adjust dosing as required. Follow-Up Labs: Trough Vancomycin - 2. @1030 before 1100 dose
[2021-07-25] MEDS: Atorvastatin Calcium 20 MG Tablet PO (20:04)
[2021-07-26] VITALS (13 sets, daily range): BP systolic 126–148; BP diastolic 51–63; PULSE 62–85; RESP 16–18; TEMP 36.9–37.2; O2SAT 93–100
[2021-07-26] MEDS: Rivaroxaban 10 MG Tablet PO (05:26)
[2021-07-26] MEDS: Acetaminophen 500 MG Tablet 1000 MG PO ×3 (05:26→21:27)
[2021-07-26 06:09] LABS: Absolute Lymphocyte Count 0.84 X10^3/uL (0.83-4.51); Absolute Neutrophil Count 6.2 X10^3/uL (2.0-7.7); Basophil# 0.03 X10^3/uL; Basophil% 0.4 % (0-1); Eosinophil# 0.24 X10^3/uL; Hematocrit 35.3 % (40-54); Hemoglobin 12.2 g/dL (13.0-16.5); Lymphocyte # 0.84 X10^3/ul (0.83-4.51); Lymphocyte % 10.4 % (19-41); Mean Corp Hgb Conc 34.6 g/dL (32-36); Mean Corpuscular Volume 89.8 fL (80-94); Mean Platelet Vol. 10.9 fl (6.2-12.0); Monocyte# 0.76 X10^3/uL; Monocyte% 9.4 % (0-10); NRBC Flagged by Analyzer 0 % (0-5); Neutrophil % 76.3 % (47-70); Platelet Count 145 K/mm3 (150-450); RBC Distribution Width CV 13.7 % (11.6-14.6); RBC Distribution Width SD 45.4 fl (35.1-43.9); Red Blood Count 3.93 M/mm3 (4.6-6.2); White Blood Count 8.1 K/mm3 (4.4-11.0)
[2021-07-26 06:32] LABS: Anion Gap 5 (5-15); BUN 18 mg/dL (7-18); Calcium,Total 8.5 mg/dL (8.5-10.1); Chloride 102 mmol/L (98-107); Creatinine, Serum 0.86 mg/dL (0.70-1.30); EST Glomerular Filtration Rate 92 mL/min (>60); Est Glom Filt Rate - Afr Amer 111 mL/min (>60); Estimated Creatinine Clearance 75.45 ml/min; Glucose 88 mg/dL (74-106); Potassium 3.4 mmol/L (3.5-5.1); Sodium Level 137 mmol/L (136-145)
[2021-07-26] MEDS: hydroCHLOROthiazide 25 MG Tablet PO (08:07)
[2021-07-26] MEDS: Metoprolol Tartrate 25 MG Tablet PO ×2 (08:07→21:27)
[2021-07-26] MEDS: Cholecalciferol (VIT D3) 25 MCG TABLET (1,000 UNITS) PO (08:08)
[2021-07-26] MEDS: Paroxetine 20 MG Tablet PO (08:08)
[2021-07-26] MEDS: Potassium Chloride Oral Tablet 10 MEQ PO ×2 (08:08→15:57)
--- NOTE | 2021-07-26 09:49 | CASEMGMT ---
Social Work Note SW reviewed chart. Pt is interested in [facility] TCU. SW placed a call to Vidhya with TCU and left message regarding referral. SW waiting for call back. Plan: SNF pending acceptance and pre-cert Gracia Downey MSW, EXAMINATION GRADER
--- NOTE | 2021-07-26 11:29 | NURSING ---
Pt sitting in chair at this time. Ordered lunch.
--- NOTE | 2021-07-26 11:30 | PN.HOSP_ITS ---
Subjective Subjective Patient seen and examined. He had no active complaints today and felt well. Pain was well controlled. Review of systems was otherewise negative. He has remained hemodynamically stable. Objective Data Objective Data Vital Signs: Vital Signs Temp Pulse Resp BP Pulse Ox 99.0 F 72 18 148/55 H 93 07/26/21 07:58 07/26/21 11:00 07/26/21 07:58 07/26/21 07:58 07/26/21 08:12 Oxygen Flow Rate (L/min) 2 Oxygen Delivery Method Nasal Cannula Weight: 195 lb 12.328 oz Body Mass Index (BMI) 28.0 Intake & Output: Intake and Output for Last 24 Hours 07/24/21 07/25/21 07/26/21 23:59 23:59 23:59 Intake Total 2030 / 2330 1934.75 / 1934.75 880.25 / 880.25 Output Total 1425 / 1425 800 / 800 700 / 700 Balance 605 / 905 1134.75 / 1134.75 180.25 / 180.25 Lab / Micro Data Result Diagrams: 07/26/21 05:45 07/26/21 05:45 Labs: Laboratory Results - last 24 hr 07/25/21 11:03: Vancomycin Trough 11.6 07/26/21 05:45: WBC 8.1, RBC 3.93 L, Hgb 12.2 L, Hct 35.3 L, MCV 89.8, MCH 31.0, MCHC 34.6, RDW Std Deviation 45.4 H, RDW Coeff of Daisy 13.7, Plt Count 145 L, MPV 10.9, Immature Gran % (Auto) 0.500, Neut % (Auto) 76.3 H, Lymph % (Auto) 10.4 L, [place] % (Auto) 9.4, Eos % (Auto) 3.0, Baso % (Auto) 0.4, Absolute Neuts (auto) 6.2, Absolute Lymphs (auto) 0.84, Nucleated RBC % 0 07/26/21 05:45: Sodium 137, Potassium 3.4 L, Chloride 102, Carbon Dioxide 30.0, Anion Gap 5, BUN 18, Creatinine 0.86, Estim Creat Clear Calc 75.45, Est GFR (MDRD) Af Amer 111, Est GFR (MDRD) Non-Af 92, BUN/Creatinine Ratio 21.0 H, Glucose 88, Calcium 8.5 Micro: Microbiology 07/23/21 16:03 Blood Culture (Wb) - Anticubital Left Blood Culture - Preliminary No growth in 48 hours. 07/23/21 15:25 Blood Culture (Wb) - Anticubital Right Blood Culture - Preliminary No growth in 48 hours. 07/23/21 17:40 Fluid - Other Gram Stain - Final 07/23/21 17:40 Fluid - Other Body Fluid Culture - Preliminary No growth-Final to follow 07/23/21 17:40 Fluid - Other Anaerobic Culture - Preliminary No growth in 48 hours. 07/23/21 16:40 Urine, Clean Catch Urine Culture - Final Culture exhibits no growth. 07/23/21 16:14 Nasal Secretion SARS-CoV-2 Antigen (Rapid) - Final Physical Exam Const alert, oriented x3 and no apparent distress Exam Limitations: no limitations HEENT head/scalp atraumatic and moist oral mucous membranes Head and Scalp: normocephalic Eyes PERRL, EOMs intact bilaterally and conjunctivae normal Neck no lymphadenopathy, supple and no JVD Resp normal respiratory effort, no retractions, no use of accessory muscles and clear to auscultation bilaterally Cardio regular rate, regular rhythm, S1 normal heart sound, S2 normal heart sound and no murmurs GI normal to inspection, nondistended, normoactive bowel sounds, soft to palpation, non-tender and non-distended Extremity Extremity Narrative: Right knee wrapped in bandage Peripheral Pulses: Yes pulses 2+ throughout Skin no rashes or lesions noted Neuro oriented x3, CN's II-XII intact bilaterally and moves all extremities Sensorium / Orientation: awake and alert Psych affect normal Assessment & Plan Assessment/Plan (1) Status post total right knee replacement: (2) Knee effusion, right: PLAN: # Right knee swelling * s/p drainage. Doesnt appear to be infected, per orthopedic surgery * On IV vancomycin and zosyn, pending final cultures * orthopedic surgery on board * PT.OT on board. * fall precautions * Body fluid cultures shows no growth in 48 hours. Final cultures pending. * #Acute hypoxic respiratory insufficiency * On 2 L of oxygen now. Covid test was negative. Patient thought to be in fluid overload. * Being diuresed with IV Lasix. Titrate oxygen to maintain saturation above 90%. * Breathing treatments with bronchodilators. * incentive spirometry * #Hypertension: On metoprolol and hydrochlorothiazide #Hyperlipidemia: On statin #Depression and anxiety: #BPH: Flomax #History of DVT and PE * Patient states he did have DVT and PE some years back after he had surgery. He was treated for this but was placed on Xarelto for postoperative DVT prophylaxis after he had knee surgery done about a week ago. * DVT prophylaxis: On Xarelto Disposition: Patient wishes to be discharged to the transitional care unit. Case management and social work on board. Charges/Coding Visit Charges Inpatient E&M: 07868 Subs Hosp L2
--- NOTE | 2021-07-26 12:15 | CASEMGMT ---
Social Work Note SW hasn't heard back from [facility] yet. SW in to speak with pt. SW informed pt that this worker is waiting to hear back from [facility] regarding bed availability. SW asked for additional SNF choices in the event [facility] cannot accept pt. Pt mentioned [facility]. SW informed pt that [facility] has no beds available at this time. Pt mentioned [facility] as another option. SW waiting for call back from [facility]. SW also waiting for call back from [facility] regarding bed availability. Plan: SNF pending acceptance and pre-cert Gracia Downey GAS DISPENSER, CENTRAL MELT SPECIALIST
[2021-07-26 14:03] LABS: Pathologist Review Reviewed
--- NOTE | 2021-07-26 15:56 | CASEMGMT ---
Social Work Note MELANIE received call from Vidhya with TCU, no beds available. MELANIE placed a call to [facility] and spoke with Rajan. Rajan states that they may potentially will have a bed available tomorrow. MELANIE asked Rajan if he would have confirmation today or not regarding bed availability and Rajan states he should know today. MELANIE in to speak with pt. MELANIE updated pt that [facility] may now have a bed available tomorrow. Pt's preferred provider is [facility]. MELANIE explained that this worker will get a referral sent to [facility] and get confirmation about bed availability. MELANIE explained that once a SNF has accepted pt, pt will need pre-cert. Pt states understanding. Pt states that if [facility] is not able to accept pt then [facility] would be next choice. MELANIE also placed a call to Slime at [facility] and provided referral. MELANIE faxed referral to [facility]. Plan: SNF pending acceptance and pre-cert Gracia Downey SPREADER BOX OPERATOR, VETERAN APPEALS REVIEWER
--- NOTE | 2021-07-26 16:24 | CASEMGMT ---
Social Work Note MELANIE placed a call to Rajan at [facility] regarding referral. Rajan states he will need to check to see if referral was received. MELANIE received call from Slime at [facility] stating they can accept pt. MELANIE asked [facility] to hold off on submitting for pre-cert until this worker hears from [facility] regarding referral. Slime states understanding. Plan :SNF pending acceptance and pre-cert Gracia Downey METERS SUPERINTENDENT, RECORD LABEL INTERN
[2021-07-26] MEDS: Atorvastatin Calcium 20 MG Tablet PO (21:27)
[2021-07-26] MEDS: 0.9% Saline Lock 10 ML Syringe IV (22:18)
[2021-07-27] VITALS (12 sets, daily range): BP systolic 110–156; BP diastolic 57–66; PULSE 61–85; RESP 14–18; TEMP 36.6–37.5; O2SAT 91–97
--- NOTE | 2021-07-27 02:25 | NURSING ---
pt has been voiding small amounts this shift - 50 - 75ml @ a time. Dr Nguyen made aware & new order received.
--- NOTE | 2021-07-27 04:21 | NURSING ---
LATE ENTRY - 0330 - PT ABLE TO VOID 250ML. ST CATHED FOR 650ML. PT TOLERATED WELL.
[2021-07-27 05:51] LABS: Absolute Lymphocyte Count 0.84 X10^3/uL (0.83-4.51); Basophil# 0.03 X10^3/uL; Basophil% 0.4 % (0-1); Eosinophil# 0.22 X10^3/uL; Eosinophils% 2.8 % (0-5); Hematocrit 34.5 % (40-54); Hemoglobin 12.4 g/dL (13.0-16.5); Lymphocyte # 0.84 X10^3/ul (0.83-4.51); Lymphocyte % 10.6 % (19-41); Mean Corp Hgb Conc 35.9 g/dL (32-36); Mean Corpuscular Hgb 31.7 pg (27.0-32.0); Mean Corpuscular Volume 88.2 fL (80-94); Mean Platelet Vol. 10.5 fl (6.2-12.0); Monocyte# 0.77 X10^3/uL; Monocyte% 9.7 % (0-10); NRBC Flagged by Analyzer 0 % (0-5); Neutrophil # 6.03 X10^3/uL (2.7-7.7); Platelet Count 166 K/mm3 (150-450); RBC Distribution Width SD 45.2 fl (35.1-43.9); Red Blood Count 3.91 M/mm3 (4.6-6.2); White Blood Count 7.9 K/mm3 (4.4-11.0)
[2021-07-27] MEDS: Acetaminophen 500 MG Tablet 1000 MG PO ×3 (06:15→21:07)
[2021-07-27] MEDS: Rivaroxaban 10 MG Tablet PO (06:15)
[2021-07-27 06:32] LABS: Anion Gap 6 (5-15); BUN 20 mg/dL (7-18); BUN/Creat Ratio 22.1 RATIO (10-20); Calcium,Total 8.8 mg/dL (8.5-10.1); Chloride 103 mmol/L (98-107); EST Glomerular Filtration Rate 87 mL/min (>60); Est Glom Filt Rate - Afr Amer 105 mL/min (>60); Glucose 89 mg/dL (74-106); Potassium 3.7 mmol/L (3.5-5.1); Sodium Level 138 mmol/L (136-145)
--- NOTE | 2021-07-27 09:13 | CASEMGMT ---
Social Work MELANIE placed call to Rajan at [facility]. Rajan states he did not receive referral yesterday. New fax number given and MELANIE refaxed referral. MELANIE updated that decision was needed this morning on ability to accept pt. Rajan understanding. MELANIE will await determination. YOCASTA Murphy
[2021-07-27] MEDS: Potassium Chloride Oral Tablet 10 MEQ PO ×2 (09:40→16:20)
[2021-07-27] MEDS: hydroCHLOROthiazide 25 MG Tablet PO (09:40)
[2021-07-27] MEDS: Metoprolol Tartrate 25 MG Tablet PO ×2 (09:40→21:07)
[2021-07-27] MEDS: Cholecalciferol (VIT D3) 25 MCG TABLET (1,000 UNITS) PO (09:40)
[2021-07-27] MEDS: Paroxetine 20 MG Tablet PO (09:41)
--- NOTE | 2021-07-27 10:15 | PN.HOSP_ITS ---
Subjective Subjective Patient seen and examined. He had no acute complaints today and had an uneventful night. Review of symptoms Objective Data Objective Data Vital Signs: Vital Signs Temp Pulse Resp BP Pulse Ox 97.9 F 75 14 110/60 95 07/27/21 09:39 07/27/21 09:40 07/27/21 09:39 07/27/21 09:39 07/27/21 09:39 Oxygen Flow Rate (L/min) 2 Oxygen Delivery Method Room Air Weight: 195 lb 12.328 oz Body Mass Index (BMI) 28.0 Intake & Output: Intake and Output for Last 24 Hours 07/25/21 07/26/21 07/27/21 23:59 23:59 23:59 Intake Total 1934.75 / 1934.75 1791.50 / 1791.50 50 / 50 Output Total 800 / 800 1300 / 1300 300 / 300 Balance 1134.75 / 1134.75 491.50 / 491.50 -250 / -250 Lab / Micro Data Result Diagrams: 07/27/21 05:40 07/27/21 05:40 Labs: Laboratory Results - last 24 hr 07/23/21 17:40: Fl Crystal Path Review Reviewed 07/27/21 05:40: WBC 7.9, RBC 3.91 L, Hgb 12.4 L, Hct 34.5 L, MCV 88.2, MCH 31.7, MCHC 35.9, RDW Std Deviation 45.2 H, RDW Coeff of Daisy 14.0, Plt Count 166, MPV 10.5, Immature Gran % (Auto) 0.500, Neut % (Auto) 76.0 H, Lymph % (Auto) 10.6 L, [place] % (Auto) 9.7, Eos % (Auto) 2.8, Baso % (Auto) 0.4, Absolute Neuts (auto) 6.0, Absolute Lymphs (auto) 0.84, Nucleated RBC % 0 07/27/21 05:40: Sodium 138, Potassium 3.7, Chloride 103, Carbon Dioxide 29.0, Anion Gap 6, BUN 20 H, Creatinine 0.90, Estim Creat Clear Calc 72.10, Est GFR (MDRD) Af Amer 105, Est GFR (MDRD) Non-Af 87, BUN/Creatinine Ratio 22.1 H, Glucose 89, Calcium 8.8 Micro: Microbiology 07/23/21 16:03 Blood Culture (Wb) - Anticubital Left Blood Culture - Preliminary No growth in 48 hours. 07/23/21 15:25 Blood Culture (Wb) - Anticubital Right Blood Culture - Preliminary No growth in 48 hours. 07/23/21 17:40 Fluid - Other Gram Stain - Final 07/23/21 17:40 Fluid - Other Body Fluid Culture - Preliminary No growth-Final to follow 07/23/21 17:40 Fluid - Other Anaerobic Culture - Preliminary No growth in 48 hours. 07/23/21 16:40 Urine, Clean Catch Urine Culture - Final Culture exhibits no growth. 07/23/21 16:14 Nasal Secretion SARS-CoV-2 Antigen (Rapid) - Final Physical Exam Const alert, oriented x3 and no apparent distress General Appearance: cooperative Exam Limitations: no limitations HEENT normocephalic, head/scalp atraumatic and moist oral mucous membranes Head and Scalp: normocephalic Eyes PERRL, EOMs intact bilaterally and conjunctivae normal Neck no lymphadenopathy, supple and no JVD Resp normal respiratory effort, no retractions, no use of accessory muscles and clear to auscultation bilaterally Auscultation: diminished lung sounds; Negative for crackles, rales, rhonchi or wheezes Cardio regular rate, regular rhythm, S1 normal heart sound, S2 normal heart sound and no murmurs GI normal to inspection, nondistended, normoactive bowel sounds, soft to palpation, non-tender and non-distended; Negative for hepatosplenomegaly Extremity no clubbing, cyanosis or edema Extremity Narrative: Right knee wrapped in bandage Skin no rashes or lesions noted Neuro oriented x3, CN's II-XII intact bilaterally, moves all extremities, no focal motor deficits and no sensory deficits noted Sensorium / Orientation: awake and alert Psych affect normal Appearance: appropriate Assessment & Plan Assessment/Plan (1) Status post total right knee replacement: (2) Knee effusion, right: PLAN: # Right knee swelling * s/p drainage. Doesnt appear to be infected, per orthopedic surgery * On IV vancomycin and zosyn, pending final cultures * orthopedic surgery on board * PT.OT on board. * fall precautions * Body fluid cultures shows no growth so far. Will dc antibiotics. * #Acute hypoxic respiratory insufficiency * resolved. NOw on room air. * Covid test was negative. Patient thought to be in fluid overload. * Being diuresed with IV Lasix. Titrate oxygen to maintain saturation above 90%. * Breathing treatments with bronchodilators. * incentive spirometry * #Hypertension: On metoprolol and hydrochlorothiazide #Hyperlipidemia: On statin #Depression and anxiety: #BPH: Flomax #History of DVT and PE * Patient states he did have DVT and PE some years back after he had surgery. * He was treated for this but was placed on Xarelto for postoperative DVT prophylaxis after he had knee surgery done about a week ago. * DVT prophylaxis: On Xarelto Disposition: * Patient wishes to be discharged to the transitional care unit. * Case management and social work on board. * Awaiting placement. Charges/Coding Visit Charges Inpatient E&M: 13693 Subs Hosp L2
--- NOTE | 2021-07-27 10:28 | CASEMGMT ---
Social Work SW spoke with Rajan at [facility] and they do not have bed availability. SW met with pt and informed. Pt stating he has changed his mind and would now want [facility] and not [facility]. Pt agreeable to call to discuss. Call to pt [place] who states that although they requested [facility] yesterday, they have decided its location is too far away. SW informed that pt now requested [facility]. inquiring about [facility] and states she will inform that the [facility] is her [facility]. Call to Sl[facility] at [facility] and they can accept. Precert to be started. Pt states she will update pt. Plan: [facility], pending precert YOCASTA Murphy
[2021-07-27 11:27] LABS: Vancomycin, Trough Level 15.8 ug/mL (5.0-15.0)
[2021-07-27] MEDS: Tamsulosin HCl 0.4 MG Capsule PO (17:05)
--- NOTE | 2021-07-27 20:43 | NURSING ---
PT VOIDED 75ML - BLADDER SCAN = 677ML. D MICHAEL NOTIFIED - ORDER FOR STRAIGHT CATH X1.
[2021-07-27] MEDS: Atorvastatin Calcium 20 MG Tablet PO (21:07)
[2021-07-28] VITALS (8 sets, daily range): BP systolic 113–141; BP diastolic 56–67; PULSE 64–82; RESP 16–18; TEMP 36.4–37; O2SAT 90–96
--- NOTE | 2021-07-28 03:44 | NURSING ---
BLADDER SCAN COMPLETED = 378ML. PT DID NOT VOID PRIOR. PT WISHES NOT TO BE STRAIGHT CATHED AGAIN @ THIS TIME. STATES HE WOULD LIKE TO WAIT A LITTLE WHILE & TRY TO VOIDTEXT TO DR HUNT REGARDING SAME.
--- NOTE | 2021-07-28 03:58 | NURSING ---
SPOKE WITH DR HUNT REGARDING BLADDER SCAN - NO NEED TO ST CATH @ THIS TIME - CONTINUE TO MONITOR.
[2021-07-28 06:02] LABS: Absolute Lymphocyte Count 0.82 X10^3/uL (0.83-4.51); Absolute Neutrophil Count 5.3 X10^3/uL (2.0-7.7); Basophil# 0.03 X10^3/uL; Basophil% 0.4 % (0-1); Eosinophil# 0.26 X10^3/uL; Eosinophils% 3.6 % (0-5); Hematocrit 35.8 % (40-54); Hemoglobin 12.2 g/dL (13.0-16.5); Lymphocyte # 0.82 X10^3/ul (0.83-4.51); Lymphocyte % 11.5 % (19-41); Mean Corp Hgb Conc 34.1 g/dL (32-36); Mean Corpuscular Volume 88.2 fL (80-94); Mean Platelet Vol. 10.8 fl (6.2-12.0); Monocyte# 0.71 X10^3/uL; Monocyte% 9.9 % (0-10); NRBC Flagged by Analyzer 0 % (0-5); Neutrophil # 5.29 X10^3/uL (2.7-7.7); Neutrophil % 74.2 % (47-70); Platelet Count 180 K/mm3 (150-450); RBC Distribution Width CV 13.9 % (11.6-14.6); Red Blood Count 4.06 M/mm3 (4.6-6.2); White Blood Count 7.1 K/mm3 (4.4-11.0)
[2021-07-28] MEDS: Rivaroxaban 10 MG Tablet PO (06:10)
[2021-07-28] MEDS: Acetaminophen 500 MG Tablet 1000 MG PO ×2 (06:10→14:50)
[2021-07-28 06:27] LABS: Anion Gap 4 (5-15); BUN 19 mg/dL (7-18); BUN/Creat Ratio 21.8 RATIO (10-20); Calcium,Total 9.3 mg/dL (8.5-10.1); Chloride 104 mmol/L (98-107); Creatinine, Serum 0.87 mg/dL (0.70-1.30); EST Glomerular Filtration Rate 90 mL/min (>60); Est Glom Filt Rate - Afr Amer 109 mL/min (>60); Estimated Creatinine Clearance 74.58 ml/min; Glucose 83 mg/dL (74-106); Potassium 3.4 mmol/L (3.5-5.1); Sodium Level 137 mmol/L (136-145)
[2021-07-28] MEDS: Potassium Chloride Oral Tablet 20 MEQ 40 MEQ PO (09:33)
[2021-07-28] MEDS: Potassium Chloride Oral Tablet 10 MEQ PO (09:34)
[2021-07-28] MEDS: hydroCHLOROthiazide 25 MG Tablet PO (09:34)
[2021-07-28] MEDS: Paroxetine 20 MG Tablet PO (09:35)
[2021-07-28] MEDS: Metoprolol Tartrate 25 MG Tablet PO (09:35)
[2021-07-28] MEDS: Cholecalciferol (VIT D3) 25 MCG TABLET (1,000 UNITS) PO (09:36)
--- NOTE | 2021-07-28 10:06 | CASEMGMT ---
Addendum entered by Gracia Downey 07/28/21 14:40: SW received message from Slime at [facility] stating pre-cert has been obtained, pt can discharge to [facility] today. Physician updated. Original Note: Social Work Note SW received message from Slime at [facility] stating pt's insurance is requesting to know how far pt is walking and how much assistance. SW reviewed notes. Pt walked 20ft contact guard with PT yesterday. MELANIE placed a call to Slime at [facility] and updated her on PT/OT. MELANIE faxed updated clinicals to [facility]. Plan: [facility] pending pre-cert Gracia Downey PUBLIC ADDRESS ANNOUNCER, PHONOGRAPH NEEDLE TIP MAKER
--- NOTE | 2021-07-28 10:51 | PN.HOSP_ITS ---
Subjective Subjective Patient seen and examined. He had no complaints and had an uneventful night. Review of systems otherwise negative. He is awaiting placement. Objective Data Objective Data Vital Signs: Vital Signs Temp Pulse Resp BP Pulse Ox 98.1 F 82 16 113/56 L 92 07/28/21 09:00 07/28/21 09:35 07/28/21 09:00 07/28/21 09:00 07/28/21 09:05 Oxygen Flow Rate (L/min) 2 Oxygen Delivery Method Room Air Weight: 195 lb 12.328 oz Body Mass Index (BMI) 28.0 Intake & Output: Intake and Output for Last 24 Hours 07/26/21 07/27/21 07/28/21 23:59 23:59 23:59 Intake Total 1791.50 / 1791.50 338.75 / 338.75 120 / 120 Output Total 1300 / 1300 1475 / 1475 300 / 300 Balance 491.50 / 491.50 -1136.25 / -1136.25 -180 / -180 Lab / Micro Data Result Diagrams: 07/28/21 04:48 07/28/21 04:48 Labs: Laboratory Results - last 24 hr 07/27/21 10:40: Vancomycin Trough 15.8 H 07/28/21 04:48: WBC 7.1, RBC 4.06 L, Hgb 12.2 L, Hct 35.8 L, MCV 88.2, MCH 30.0, MCHC 34.1 D, RDW Std Deviation 45.0 H, RDW Coeff of Daisy 13.9, Plt Count 180, MPV 10.8, Immature Gran % (Auto) 0.400, Neut % (Auto) 74.2 H, Lymph % (Auto) 11.5 L, [place] % (Auto) 9.9, Eos % (Auto) 3.6, Baso % (Auto) 0.4, Absolute Neuts (auto) 5.3, Absolute Lymphs (auto) 0.82 L, Nucleated RBC % 0 07/28/21 04:48: Sodium 137, Potassium 3.4 L, Chloride 104, Carbon Dioxide 29.0, Anion Gap 4 L, BUN 19 H, Creatinine 0.87, Estim Creat Clear Calc 74.58, Est GFR (MDRD) Af Amer 109, Est GFR (MDRD) Non-Af 90, BUN/Creatinine Ratio 21.8 H, Glucose 83, Calcium 9.3 Micro: Microbiology 07/23/21 16:03 Blood Culture (Wb) - Anticubital Left Blood Culture - Preliminary No growth in 48 hours. 07/23/21 15:25 Blood Culture (Wb) - Anticubital Right Blood Culture - Preliminary No growth in 48 hours. 07/23/21 17:40 Fluid - Other Gram Stain - Final 07/23/21 17:40 Fluid - Other Body Fluid Culture - Preliminary No growth-Final to follow 07/23/21 17:40 Fluid - Other Anaerobic Culture - Preliminary No growth in 48 hours. 07/23/21 16:40 Urine, Clean Catch Urine Culture - Final Culture exhibits no growth. 07/23/21 16:14 Nasal Secretion SARS-CoV-2 Antigen (Rapid) - Final Physical Exam Const alert, oriented x3 and no apparent distress General Appearance: cooperative Exam Limitations: no limitations HEENT normocephalic, head/scalp atraumatic and moist oral mucous membranes Head and Scalp: normocephalic Eyes PERRL, EOMs intact bilaterally and conjunctivae normal Neck no lymphadenopathy, supple and no JVD Resp normal respiratory effort, no retractions, no use of accessory muscles and clear to auscultation bilaterally Auscultation: diminished lung sounds; Negative for crackles, rales, rhonchi or wheezes Cardio regular rate, regular rhythm, S1 normal heart sound, S2 normal heart sound and no murmurs GI normal to inspection, nondistended, normoactive bowel sounds, soft to palpation, non-tender and non-distended; Negative for hepatosplenomegaly Extremity normal to inspection, full ROM and no clubbing, cyanosis or edema Extremity Narrative: Right knee has dressing in place. Peripheral Pulses: Yes pulses 2+ throughout Skin no rashes or lesions noted Neuro oriented x3, CN's II-XII intact bilaterally, moves all extremities, no focal motor deficits and no sensory deficits noted Sensorium / Orientation: awake and alert Psych affect normal Appearance: appropriate Assessment & Plan Assessment/Plan (1) Status post total right knee replacement: (2) Knee effusion, right: PLAN: # Right knee swelling * s/p drainage. Doesnt appear to be infected, per orthopedic surgery * cultures are all negative so far * antibiotics discontinued * orthopedic surgery on board * PT.OT on board. * fall precautions * * #Acute hypoxic respiratory insufficiency * resolved. NOw on room air. * Covid test was negative. Patient thought to be in fluid overload. * Being diuresed with IV Lasix. Titrate oxygen to maintain saturation above 90%. * Breathing treatments with bronchodilators. * incentive spirometry * #Hypertension: On metoprolol and hydrochlorothiazide #Hyperlipidemia: On statin #Depression and anxiety:on ativan and paroxetine #BPH: started on Flomax #History of DVT and PE * Patient states he did have DVT and PE some years back after he had surgery. * He was treated for this but was placed on Xarelto for postoperative DVT prophy laxis after he had knee surgery done about a week ago. * DVT prophylaxis: On Xarelto Disposition: * Patient wishes to be discharged to the transitional care unit. * Case management and social work on board. * Awaiting placement. Charges/Coding Visit Charges Inpatient E&M: 02276 Subs Hosp L2
--- NOTE | 2021-07-28 13:10 | DS.PCM_ITS ---
Providers Date of Admission: 07/23/21 Primary Care Physician: Dr. Brandon Cantor MD Consultations 07/24/21 07:01 Consult: Orthopedics Routine Consulting Provider: Ruslan Franklin Reason for Consult: Post-op complication EMERGENT Consult: No MD Notified: Yes Date Notified: 07/23/21 Time Notified: 18:00 Method of Notification: already notified 07/23 Reason For Visit: FEVER Diagnosis Discharge Diagnosis (1) Status post total right knee replacement: Status: Acute Code(s): Z96.651 - Presence of right artificial knee joint (2) Knee effusion, right: Status: Acute Code(s): M25.461 - Effusion, right knee Medications at Discharge Home Medications lorazepam 1 mg tablet 1 mg PO PRN PRN 01/31/18 hydrochlorothiazide 25 mg tablet 25 mg PO DAILY 03/12/19 atorvastatin 20 mg PO QHS 04/15/21 metoprolol tartrate 25 mg PO BID 04/15/21 potassium chloride 10 meq PO BID 04/15/21 Protein Nutritional Shake 100 ml PO DAILY 07/07/21 cholecalciferol (vitamin D3) [Vitamin D3] 25 mcg PO DAILY 07/07/21 Xarelto 10 mg PO 0600 #14 tab 07/22/21 acetaminophen 1,000 mg PO TID 14 Days #84 tab 07/22/21 oxycodone 5 - 10 mg PO Q4H PRN PRN 5 Days #60 tab 07/22/21 sennosides-docusate sodium [Stool Softener-Stimulant Laxat] 2 tab PO BID #20 tab 07/22/21 paroxetine HCl 20 mg PO DAILY 07/23/21 tamsulosin 0.4 mg PO DAILY@1730 #30 cap 07/28/21 Hospital Course Operations None Procedures - (right knee aspiration) Summary of Care Provided Minutes Spent on Discharge: 40 Hospital Course: Patient is a 76-year-old male with a past medical history as outlined was admitted through the ED on 07/23/2021 with a complaint of fever and progressive right knee pain. Patient had recently had a right total knee replacement on 07/21/2021 and was discharged on 07/22/2021. After discharge home, he subsequently started having severe right knee pain and was unable to ambulate. He also noted that his right knee was swollen so he came into the ED. In the ED he was febrile with temperature of 100.6 with a max of 102.1 Fahrenheit; heart rate was 102 and was requiring 2 L of oxygen to saturate at 94%. WBC was 11.7 and potassium was 3.3. Lactic acid was 0.9. He had a bedside right knee aspiration done which yielded a red turbid fluid with WBC count of 5407. Covid test was negative and chest x-ray showed interstitial prominence concerning for pulmonary edema. Duplex of the right lower extremity was negative for DVT. He was admitted and managed for right post op knee swelling with concern for infection. Orthopedics was consulted and he was started on IV vancomycin and Zosyn. Potassium was replaced. The [facility] reviewed patient and did not think that the right knee was infected and thought was likely a postop hemarthrosis. Cultures of the fluid were negative. Antibiotics were subsequently stopped. Patient's pain and fever subsequently resolved and he felt much better. He was diuresed with Lasix on account of concerns about fluid overload. He remained stable. Patient [facility] per his request on 07/28/2021. Patient seen and examined prior to discharge. He had no active complaints and felt well. Review of systems otherwise negative. Labs and vitals reviewed. Medication reviewed and reconciled. Physical Exam Const alert, oriented x3 and no apparent distress General Appearance: cooperative Exam Limitations: no limitations HEENT normocephalic, head/scalp atraumatic and moist oral mucous membranes Eyes PERRL, EOMs intact bilaterally and conjunctivae normal Neck no lymphadenopathy, supple and no JVD Resp normal respiratory effort, no retractions, no use of accessory muscles and clear to auscultation bilaterally Auscultation: diminished lung sounds; Negative for crackles, rales, rhonchi or wheezes Cardio regular rate, regular rhythm, S1 normal heart sound, S2 normal heart sound and no murmurs GI normal to inspection, nondistended, normoactive bowel sounds, soft to palpation, non-tender and non-distended; Negative for hepatosplenomegaly Extremity normal to inspection, full ROM and no clubbing, cyanosis or edema Extremity Narrative: Right knee has dressing in place. Skin no rashes or lesions noted Neuro oriented x3, CN's II-XII intact bilaterally, moves all extremities, no focal motor deficits and no sensory deficits noted Sensorium / Orientation: awake and alert Psych affect normal Appearance: appropriate Weight / BMI Weight Weight: 195 lb 12.328 oz Body Mass Index (BMI) 28.0 ABG / Lab / Microbiology Data Result Diagrams: 07/28/21 04:48 07/28/21 04:48 Laboratory: Laboratory Results - last 24 hr 07/28/21 04:48: WBC 7.1, RBC 4.06 L, Hgb 12.2 L, Hct 35.8 L, MCV 88.2, MCH 30.0, MCHC 34.1 D, RDW Std Deviation 45.0 H, RDW Coeff of Daisy 13.9, Plt Count 180, MPV 10.8, Immature Gran % (Auto) 0.400, Neut % (Auto) 74.2 H, Lymph % (Auto) 11.5 L, [place] % (Auto) 9.9, Eos % (Auto) 3.6, Baso % (Auto) 0.4, Absolute Neuts (auto) 5.3, Absolute Lymphs (auto) 0.82 L, Nucleated RBC % 0 07/28/21 04:48: Sodium 137, Potassium 3.4 L, Chloride 104, Carbon Dioxide 29.0, Anion Gap 4 L, BUN 19 H, Creatinine 0.87, Estim Creat Clear Calc 74.58, Est GFR (MDRD) Af Amer 109, Est GFR (MDRD) Non-Af 90, BUN/Creatinine Ratio 21.8 H, Glucose 83, Calcium 9.3 Microbiology: Microbiology 07/23/21 16:03 Blood Culture (Wb) - Anticubital Left Blood Culture - Preliminary No growth in 48 hours. 07/23/21 15:25 Blood Culture (Wb) - Anticubital Right Blood Culture - Preliminary No growth in 48 hours. 07/23/21 17:40 Fluid - Other Gram Stain - Final 07/23/21 17:40 Fluid - Other Body Fluid Culture - Preliminary No growth-Final to follow 07/23/21 17:40 Fluid - Other Anaerobic Culture - Preliminary No growth in 48 hours. 07/23/21 16:40 Urine, Clean Catch Urine Culture - Final Culture exhibits no growth. 07/23/21 16:14 Nasal Secretion SARS-CoV-2 Antigen (Rapid) - Final D/C Instructions Discharge Diet: Low fat / Low cholesterol Discharge Activity: Return to Normal Activity Weight Bearing Status: Weight bearing as tolerated Call your doctor if you observe: Fever of 101 or Higher, Shortness of breath, Swelling in the ankles and - (right knee pain) Meaningful Use Info Meaningful Use Diagnoses (Choose all that apply): None applicable Discharge Plan Admission Admit Date/Time: 07/23/21 21:28 Primary Reason for Your Visit: right knee post op effusion Attending Provider: Yisel Lanza Primary Care Provider: Brandon Cantor Consulting Providers: Ruslan Franklin Instructions Patient Instructions: ED Knee Effusion Discharge Orders/Prescriptions Prescriptions: New tamsulosin 0.4 mg Capsule 0.4 mg PO DAILY@1730 Qty: 30 RF: 1 Continued lorazepam 1 mg tablet 1 mg PO PRN PRN (Reason: Anxiety) RF: 0 hydrochlorothiazide 25 mg tablet 25 mg PO DAILY RF: 0 Protein Nutritional Shake Liquid 100 ml PO DAILY RF: 0 cholecalciferol (vitamin D3) [Vitamin D3] 25 mcg (1,000 unit) Tablet 25 mcg PO DAILY RF: 0 acetaminophen 500 mg Tablet 1,000 mg PO TID 14 Days Qty: 84 RF: 0 oxycodone 5 mg Tablet 5 - 10 mg PO Q4H PRN PRN (Reason: Pain Score 4-10) 5 Days Qty: 60 RF: 0 sennosides-docusate sodium [Stool Softener-Stimulant Laxat] 8.6-50 mg Tablet 2 tab PO BID Qty: 20 RF: 0 Xarelto 10 mg Tablet 10 mg PO 0600 Qty: 14 RF: 0 potassium chloride 10 mEq capsule, extended release 10 meq PO BID RF: 0 atorvastatin 20 mg tablet 20 mg PO QHS RF: 0 metoprolol tartrate 25 mg tablet 25 mg PO BID RF: 0 paroxetine HCl 20 mg tablet 20 mg PO DAILY RF: 0 Referrals / Follow Up: Ruslan Franklin MD [STAFF PHYSICIAN] - Within 2 Weeks Brandon Cantor MD [Primary Care Provider] - Within 2 Weeks Disposition Disposition (needs filled in before D/C Order can be placed): Longterm Facility Charges/Coding Visit Charges Inpatient E&M: 17235 Disch Hosp
--- NOTE | 2021-07-28 13:19 | PCM.TXEXTCAR ---
Diet 07/24/21 02:01 Diet: Cardiac - Heart Healthy Is pt able to select menu?: No Diet Comments: 8 oz chocolate CIB w/ B, chocolate ensure compact w/ L&D Routine Orders/Code Status Enema Type: Fleetz Enema Frequency: Daily PRN Suppository Type: Dulcolax 10mg Suppository Frequency: Daily PRN O2 Frequency: PRN Keep PO Greater than or Equal to (%): 90 Wound(s) LLE: Wound Type: Surgical Incision Rt knee: Wound Type: Surgical Incision rt lower knee: Wound Type: blister R BOWIE: Wound Type: Surgical Incision ABOVE R KNEE: Wound Type: Surgical Incision Therapies Weight Bearing: Weight bearing as tolerated Physical Therapy: Eval and Treat Occupational Therapy: Eval and Treat Problem/Diagnosis (1) Status post total right knee replacement: Status: Acute (2) Knee effusion, right: Status: Acute Allergies/Procedures Done in Hospital Allergies No Known Allergies Allergy (Verified 07/23/21 15:08) Type of Care/Length of Stay Estimated LOS: Convalescent Care Less Than 30 days Type of Care Needed: Skilled Rehab Potential: Good Prognosis: Good Additional Orders/Day of Discharge Day of Discharge: 07/28/21 Dietary and Speech Recommendations Dietitian Recommendations/Changes: Will change ONS at meals per pt request (Conor CIB w/ breakfast and Conor Ensure Compact w/ lunch and dinner) Discharge Plan Admission Admit Date/Time: 07/23/21 21:28 Primary Reason for Your Visit: right knee post op effusion Attending Provider: Yisel Lanza Primary Care Provider: Brandon Cantor Consulting Providers: Ruslan Franklin Instructions Patient Instructions: ED Knee Effusion Discharge Orders/Prescriptions Prescriptions: New tamsulosin 0.4 mg Capsule 0.4 mg PO DAILY@1730 Qty: 30 RF: 1 Continued lorazepam 1 mg tablet 1 mg PO PRN PRN (Reason: Anxiety) RF: 0 hydrochlorothiazide 25 mg tablet 25 mg PO DAILY RF: 0 Protein Nutritional Shake Liquid 100 ml PO DAILY RF: 0 cholecalciferol (vitamin D3) [Vitamin D3] 25 mcg (1,000 unit) Tablet 25 mcg PO DAILY RF: 0 acetaminophen 500 mg Tablet 1,000 mg PO TID 14 Days Qty: 84 RF: 0 oxycodone 5 mg Tablet 5 - 10 mg PO Q4H PRN PRN (Reason: Pain Score 4-10) 5 Days Qty: 60 RF: 0 sennosides-docusate sodium [Stool Softener-Stimulant Laxat] 8.6-50 mg Tablet 2 tab PO BID Qty: 20 RF: 0 Xarelto 10 mg Tablet 10 mg PO 0600 Qty: 14 RF: 0 potassium chloride 10 mEq capsule, extended release 10 meq PO BID RF: 0 atorvastatin 20 mg tablet 20 mg PO QHS RF: 0 metoprolol tartrate 25 mg tablet 25 mg PO BID RF: 0 paroxetine HCl 20 mg tablet 20 mg PO DAILY RF: 0 Referrals / Follow Up: Ruslan Franklin MD [STAFF PHYSICIAN] - Within 2 Weeks Brandon Cantor MD [Primary Care Provider] - Within 2 Weeks Disposition Disposition (needs filled in before D/C Order can be placed): [facility]
--- NOTE | 2021-07-28 15:44 | CASEMGMT ---
Social Work Note MELANIE faxed completed discharge paperwork to [facility] including transfer to extended care facility, signed medication list, any scripts, COVID tool, and [facility]escent [facility]. Original in SNF folder and copy on pt's chart. MELANIE completed convalescent 7000 in HENS. Original in SNF folder and copy on pt's chart. MELANIE spoke with RN, pt can transport via wheelchair van. SW accessed trip assist and arranged transportation via wheelchair van for 5:30pm. Transportation form completed and placed on SNF folder and copy on pt's chart. SW updated RN on transportation time. MELANIE placed a call to Slime at [facility] and updated her on transportation time. SW in to speak with pt. SW updated pt on discharge and transportation time to [facility] today. MELANIE informed pt that this worker will call his to update. Pt states understanding. SW informed pt that if he gets a bill for transport, it will get sent in mail. 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 MELANIE placed a call to pt's [place] and updated her on discharge and transportation time to [facility]. [place] states understanding. Plan: [facility] skilled under Convalescent stay with Physician's transporting pt via wheelchair van at 5:30pm YOCASTA Huynh
--- NOTE | 2021-07-28 17:09 | NURSING ---
Report given to [facility] at [facility]. Patients belongings packed up and IVs removed.
== END 2021-07-28 17:40 | disposition skilled nursing facility (03) | DRG 470 ==
LOC: ED 21:36 → MS3 22:19
PROVIDERS: Family Medicine; Admitting Provider Internal Medicine; Emergency Provider Student in an Organized Health Care Education/Training Program; PCP Internal Medicine; Visit Provider Student in an Organized Health Care Education/Training Program
DX: M17.11 Unilateral primary osteoarthritis, right knee (principal); I50.30 Unspecified diastolic (congestive) heart failure; J96.11 Chronic respiratory failure with hypoxia; I11.0 Hypertensive heart disease with heart failure; E78.5 Hyperlipidemia, unspecified; M25.461 Effusion, right knee; R26.2 Difficulty in walking, not elsewhere classified; E87.6 Hypokalemia; F41.9 Anxiety disorder, unspecified; D75.1 Secondary polycythemia; S80.829A Blister (nonthermal), unspecified lower leg, initial encounter; R50.9 Fever, unspecified; Z87.891 Personal history of nicotine dependence; Z79.01 Long term (current) use of anticoagulants; F32.A Depression, unspecified; R09.02 Hypoxemia; Z86.718 Personal history of other venous thrombosis and embolism; Z86.711 Personal history of pulmonary embolism; Z79.899 Other long term (current) drug therapy; X58.XXXA Exposure to other specified factors, initial encounter
CPT/HCPCS: 36415; 71045; 71046; 73560; 73564; 80048; 80053; 80202; 81001; 82040; 82962; 83605; 83735; 83880; 84100; 84484; 85025; 85027; 85610; 85652; 85730; 86140; 87015; 87040; 87070; 87075; 87081; 87086; 87101; 87116; 87205; 87206; 87426; 87635; 89050; 89051; 89060; 93005; 93971; 96365; 96366; 97110; 97116; 97162; 97166; 97530; 97535; 99218; 99251; 99285; C1776; J7030; J7040; J7050; J7120; A4216; G0378; G0463; J1940; J2405; U0003; U0005

== ENCOUNTER 2021-08-21 10:13 | Emergency (ER) | payer MEDICARE, SELFPAY ==
[2021-08-21 10:14] VITALS: BP 100/58; PULSE 72; RESP 17; TEMP 35.6; O2SAT 94; BMI 26.4
--- NOTE | 2021-08-21 10:34 | EDS_ITS ---
HPI History of Present Illness Chief Complaint: Diarrhea Informant: patient and spouse/S.O. Narrative Narrative: Patient presents with 4 days of soft stools. 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 But he states this is softer and more watery than usual. No blood or black. He will have up to 8 or 10 of these a day. But he has not had 1 since late last night. He has not at any time had abdominal pain. He has no urinary symptoms. He is eating and drinking normally. He has normal volume of urine output. Patient does have a history of an episode of C. difficile colitis when he had takedown of his ostomy many years ago. But this stool does not have strong odor. He does not feel ill. He has not had fevers. Patient was recently in the hospital for about 3 days. He was on IV antibiotics for possibility of a knee infection. But he did not go home on oral antibiotics. He has been eating a lot of fruits and vegetables recently that he thinks is more than normal but his does not. No change in medications. No exposures to anyone that he knows of who has had diarrhea. No travel. They came in today because when they called a nurse helpline and they were told that he probably needs a bag of fluid. They are also concerned about C. difficile colitis. [facility] Medical History Acute respiratory failure with hypoxia Anxiety Anxiety Anxiety Arthritis Arthritis Back pain BPH (benign prostatic hyperplasia) Cancer Cardiology follow-up encounter Change in bowel habit Chronic respiratory failure with hypoxia Closed right hip fracture Depression Depression Diarrhea Difficulty swallowing Fall Former smoker Heartburn History of echocardiogram History of edema History of pain when walking Hypercholesterolemia Hyperlipidemia Hypertension Hypertension Hypothyroidism Leg cramps Osteoarthritis Osteoporosis Polycythemia Prostate disease Pulmonary embolism Pulmonary embolism Shortness of breath on exertion Skin cancer Syncope Wears dentures Wears glasses Home Medications lorazepam 1 mg tablet 1 mg PO PRN PRN 01/31/18 [History Last Taken 07/23/21] hydrochlorothiazide 25 mg tablet 25 mg PO DAILY 03/12/19 [History Last Taken 07/23/21] atorvastatin 20 mg PO QHS 04/15/21 [History Last Taken 07/22/21] metoprolol tartrate 25 mg PO BID 04/15/21 [History Last Taken 07/23/21] potassium chloride 10 meq PO BID 04/15/21 [History Last Taken 07/23/21] cholecalciferol (vitamin D3) [Vitamin D3] 25 mcg PO DAILY 07/07/21 [History Last Taken 07/23/21] acetaminophen 1,000 mg PO TID 14 Days #84 tab 07/22/21 [Rx Last Taken Unknown] paroxetine HCl 20 mg PO DAILY 07/23/21 [History Last Taken 07/23/21] tamsulosin 0.4 mg PO DAILY@1730 #30 cap 07/28/21 [Rx Last Taken Unknown] Aspirin Childrens 81 mg PO/SL BID 08/21/21 [History Last Taken Unknown] Allergy/AdvReac Type Severity Reaction Status Date / Time No Known Allergies Allergy Verified 08/21/21 10:14 Family History Father Lung cancer Mother Parkinsons Heart failure Surgical History H/O colonoscopy History of cardiac catheterization History of colon surgery History of rhinoplasty History of total knee replacement (TKR) History of total right hip replacement History of transurethral resection of prostate reattachment of severed finger stoma reversal Social History household members: spouse housing: house 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al status: employed 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: [employer] pets and animals: Yes pets and animals: cat(s) and dog(s) Smoking Status: Former smoker quit date: 06/05/98 pack-years: 72 second hand exposure: No alcohol intake: never substance use type: does not use ROS ROS ED Constitutional Constitutional ED: Denies chills or fever(s) ENT ENT ED: Denies sore throat Cardiovascular Cardiovascular: Denies chest pain or palpitations Respiratory/Chest Respiratory/Chest: Denies cough or dyspnea Gastrointestinal Gastrointestinal: Reports diarrhea; Denies abdominal pain, constipation, melena, nausea or vomiting Genitourinary Genitourinary ED: Denies dysuria, hematuria or urinary frequency Musculoskeletal Musculoskeletal: Denies myalgias Integumentary Denies rash Neurologic Neurologic: Denies headache(s) Psychiatric Psychiatric: Denies depression Endocrine Endocrinology: Denies polydipsia or polyuria Allergic/Immunologic Allergic/Immunologic ED: Denies mouth swelling or urticaria EXAM Physical Exam Const Vital Signs: 08/21/21 10:14 08/21/21 10:47 Temperature 96.1 F L 97.1 F L Temperature Source Temporal Temporal Pulse Rate 72 57 L Respiratory Rate 17 14 Blood Pressure 100/58 L 115/59 L Blood Pressure Mean 72 77 Pulse Ox 94 Oxygen Delivery Method Room Air Positive well nourished and well developed General Appearance ED: well developed and NAD; Negative for cyanotic or diaphoretic HEENT Reports moist mucous membranes Neck supple Chest Wall inspection of chest normal Resp normal respiratory effort and clear to auscultation bilaterally Cardio regular rate and regular rhythm GI normal to inspection, nondistended, normoactive bowel sounds, non-tender and non-distended GI Narrative: Mild increased frequency of bowel sounds but otherwise completely of benign abdomen. Auscultation: hyperactive bowel sounds Palpation: soft Back/Spine no CVA tenderness Extremity normal to inspection Neuro oriented x3 Sensorium / Orientation: alert Psych mental status grossly normal Skin no rashes or lesions noted and skin turgor normal MDM MDM MDM Narrative Medical decision making narrative: Patient's labs show normal CBC. There is no elevated white count. This leans somewhat against but does not rule out C. difficile colitis. Electrolytes showed some low potassium. He does have a history of low potassium and takes potassium regularly. However it is likely lower due to the diarrhea. Patient did have a softer stool here. But he states that the longest period between stools he has ever had. He feels like this might be getting better. He is prior bowel movement was between 4 and 6 hours ago. C. difficile is being sent off. We talked to the lab. It is a send out test. They will send it out today but they will not get the results back today. I think we get the patient home pending this result. Certainly if that is positive we can get the result in: Meds or his primary physician can. If he develops pain fevers or other issues in the meantime he should return. Lab Data Attestation: I reviewed the patient's lab results. Labs: Laboratory Results - last 24 hr 08/21/21 08/21/21 10:41 10:41 WBC 10.6 RBC 4.48 L Hgb 14.0 Hct 38.9 L MCV 86.8 MCH 31.3 MCHC 36.0 RDW Std Deviation 43.3 RDW Coeff of Daisy 13.7 Plt Count 185 MPV 10.6 Immature Gran % (Auto) 0.600 Neut % (Auto) 79.6 H Lymph % (Auto) 8.7 L [place] % (Auto) 8.9 Eos % (Auto) 1.7 Baso % (Auto) 0.5 Absolute Neuts (auto) 8.4 H Absolute Lymphs (auto) 0.92 Nucleated RBC % 0 Sodium 137 Potassium 3.0 L Chloride 103 Carbon Dioxide 29.0 Anion Gap 5 BUN 18 Creatinine 0.96 Estim Creat Clear Calc 67.59 Est GFR (MDRD) Af Amer 99 Est GFR (MDRD) Non-Af 81 BUN/Creatinine Ratio 18.8 Glucose 100 Calcium 9.4 Discharge Plan Triage Chief Complaint: Diarrhea ED Provider: Vitaliy Verma Dx/Rx/DC Orders Clinical Impression: Diarrhea Instructions: ED Diarrhea, Unknown Cause Prescriptions: No Action lorazepam 1 mg tablet 1 mg PO PRN PRN (Reason: Anxiety) RF: 0 hydrochlorothiazide 25 mg tablet 25 mg PO DAILY RF: 0 cholecalciferol (vitamin D3) [Vitamin D3] 25 mcg (1,000 unit) Tablet 25 mcg PO DAILY RF: 0 acetaminophen 500 mg Tablet 1,000 mg PO TID 14 Days Qty: 84 RF: 0 potassium chloride 10 mEq capsule, extended release 10 meq PO BID RF: 0 atorvastatin 20 mg tablet 20 mg PO QHS RF: 0 metoprolol tartrate 25 mg tablet 25 mg PO BID RF: 0 paroxetine HCl 20 mg tablet 20 mg PO DAILY RF: 0 tamsulosin 0.4 mg Capsule 0.4 mg PO DAILY@1730 Qty: 30 RF: 1 Aspirin Childrens 81 mg PO/SL BID RF: 0 Primary Care Provider: Brandon Cantor Referrals: Brandon Cantor MD [Primary Care Provider] - 1-2 Days if not improving Disposition Disposition: Home, Self Care
[2021-08-21 10:47] VITALS: BP 115/59; PULSE 57; RESP 14; TEMP 36.2
[2021-08-21 10:56] LABS: Absolute Lymphocyte Count 0.92 X10^3/uL (0.83-4.51); Absolute Neutrophil Count 8.4 X10^3/uL (2.0-7.7); Basophil# 0.05 X10^3/uL; Basophil% 0.5 % (0-1); Eosinophil# 0.18 X10^3/uL; Eosinophils% 1.7 % (0-5); Hematocrit 38.9 % (40-54); Lymphocyte # 0.92 X10^3/ul (0.83-4.51); Lymphocyte % 8.7 % (19-41); Mean Corpuscular Hgb 31.3 pg (27.0-32.0); Mean Corpuscular Volume 86.8 fL (80-94); Mean Platelet Vol. 10.6 fl (6.2-12.0); Monocyte# 0.94 X10^3/uL; Monocyte% 8.9 % (0-10); NRBC Flagged by Analyzer 0 % (0-5); Neutrophil % 79.6 % (47-70); Platelet Count 185 K/mm3 (150-450); RBC Distribution Width CV 13.7 % (11.6-14.6); RBC Distribution Width SD 43.3 fl (35.1-43.9); Red Blood Count 4.48 M/mm3 (4.6-6.2); White Blood Count 10.6 K/mm3 (4.4-11.0)
[2021-08-21 10:59] LABS: Anion Gap 5 (5-15); BUN 18 mg/dL (7-18); BUN/Creat Ratio 18.8 RATIO (10-20); Calcium,Total 9.4 mg/dL (8.5-10.1); Chloride 103 mmol/L (98-107); Creatinine, Serum 0.96 mg/dL (0.70-1.30); EST Glomerular Filtration Rate 81 mL/min (>60); Est Glom Filt Rate - Afr Amer 99 mL/min (>60); Estimated Creatinine Clearance 67.59 ml/min; Glucose 100 mg/dL (74-106); Sodium Level 137 mmol/L (136-145)
[2021-08-21] MEDS: Potassium Chloride Oral Tablet 20 MEQ 40 MEQ PO (11:21)
[2021-08-21 12:00] VITALS: BP 115/51; PULSE 59
--- NOTE | 2021-08-21 16:14 | ED.RN ---
cdiff results back and pos. dr uribe aware
== END 2021-08-21 12:08 | disposition home or self-care (01) ==
PROVIDERS: Emergency Provider Emergency Medicine; PCP Internal Medicine; Visit Provider Emergency Medicine
DX: R19.7 Diarrhea, unspecified (principal); I10 Essential (primary) hypertension; E78.00 Pure hypercholesterolemia, unspecified; N40.0 Benign prostatic hyperplasia without lower urinary tract symptoms; Z87.891 Personal history of nicotine dependence; Z86.711 Personal history of pulmonary embolism; Z79.82 Long term (current) use of aspirin; Z79.899 Other long term (current) drug therapy
CPT/HCPCS: 80048; 85025; 87493; 99282; J7040; A4216

== ENCOUNTER 2021-10-15 14:11 | Emergency (ER) | payer MEDICARE, SELFPAY ==
[2021-10-15 14:13] VITALS: BP 131/56; PULSE 80; RESP 16; TEMP 36.4; O2SAT 92; BMI 26.0
--- NOTE | 2021-10-15 14:28 | EKG12_ITS ---
Test Reason : CP Blood Pressure : / mmHG Vent. Rate : 089 BPM Atrial Rate : 089 BPM P-R Int : 176 ms QRS Dur : 100 ms QT Int : 378 ms P-R-T Axes : 015 -23 038 degrees QTc Int : 459 ms Normal sinus rhythm Normal ECG Confirmed by NEERAJ DIMAS, DEAN ([id number]), sound editor JESE MENDOZA ([id number]) on 10/18/2021 1:52:29 PM Referred By: MATEO/LESLEY Confirmed By:DEAN PICKARD MD
--- NOTE | 2021-10-15 14:31 | EX.ED.DYSGE1 ---
HPI <CHUY Hebert - Last Filed: 10/15/21 16:28> History of Present Illness Chief Complaint: Palpitations Narrative Narrative: 76-year-old male with PMH of HTN, HLD presents with palpitations. Around noon he was sitting eating lunch when he started to feel his heartbeat strongly. It was not rapid or irregular. It lasted about 15 seconds. He also felt a hot sensation in his head at the same time. The palpitations occurred 2 or 3 times which prompted him to come in. He is now asymptomatic. There was no associated chest pain, shortness of breath, nausea, vomiting, or diaphoresis. He states he is being referred to an seasonal sales associate for abnormal labs but does not know details. He is on thyroid medication. He also is suspected to have Parkinson's disease. PFSH <CHUY Hebert - Last Filed: 10/15/21 16:28> [facility] Medical History Acute respiratory failure with hypoxia Anxiety Anxiety Anxiety Arthritis Arthritis Back pain BPH (benign prostatic hyperplasia) Cancer Cardiology follow-up encounter Change in bowel habit Chronic respiratory failure with hypoxia Closed right hip fracture Depression Depression Diarrhea Difficulty swallowing Fall Former smoker Heartburn History of echocardiogram History of edema History of pain when walking Hypercholesterolemia Hyperlipidemia Hypertension Hypertension Hypothyroidism Leg cramps Osteoarthritis Osteoporosis Polycythemia Prostate disease Pulmonary embolism Pulmonary embolism Shortness of breath on exertion Skin cancer Syncope Wears dentures Wears glasses Home Medications lorazepam 1 mg tablet 1 mg PO PRN PRN 01/31/18 [History Last Taken 07/23/21] hydrochlorothiazide 25 mg tablet 25 mg PO DAILY 03/12/19 [History Last Taken 07/23/21] atorvastatin 20 mg PO QHS 04/15/21 [History Last Taken 07/22/21] metoprolol tartrate 25 mg PO BID 04/15/21 [History Last Taken 07/23/21] potassium chloride 10 meq PO BID 04/15/21 [History Last Taken 07/23/21] cholecalciferol (vitamin D3) [Vitamin D3] 25 mcg PO DAILY 07/07/21 [History Last Taken 07/23/21] acetaminophen 1,000 mg PO TID 14 Days #84 tab 07/22/21 [Rx Last Taken Unknown] paroxetine HCl 20 mg PO DAILY 07/23/21 [History Last Taken 07/23/21] tamsulosin 0.4 mg PO DAILY@1730 #30 cap 07/28/21 [Rx Last Taken Unknown] Aspirin Childrens 81 mg PO/SL BID 08/21/21 [History Last Taken Unknown] vancomycin 125 mg PO Q6H 10 Days #40 cap 08/21/21 [Rx Last Taken Unknown] Allergy/AdvReac Type Severity Reaction Status Date / Time No Known Allergies Allergy Verified 10/15/21 14:18 Family History Father Lung cancer Mother Parkinsons Heart failure Surgical History H/O colonoscopy History of cardiac catheterization History of colon surgery History of rhinoplasty History of total knee replacement (TKR) History of total right hip replacement History of transurethral resection of prostate reattachment of severed finger stoma reversal Social History household members: spouse housing: house 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al status: employed 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: [employer] pets and animals: Yes pets and animals: cat(s) and dog(s) Smoking Status: Former smoker quit date: 06/05/98 pack-years: 72 second hand exposure: No alcohol intake: never substance use type: does not use ROS <CHUY Hebert - Last Filed: 10/15/21 16:28> ROS ED ROS Narrative Constitutional: Negative for fever, chills, malaise. Eyes: Negative for visual change. ENT: Negative for sore throat, ear pain, rhinorrhea. CVS: Positive for palpitations. Negative for chest pain, syncope. Respiratory: Negative for shortness of breath, cough, orthopnea. GI: Negative for abdominal pain, nausea, vomiting, diarrhea, constipation, melena, hematochezia. : Negative for dysuria, hematuria or frequency. Neuro: Negative for headache, motor/sensory dysfunction. Skin: Negative for rash, abscess, or wound. Musc: Negative for joint pain, swelling, trauma. Heme: Negative for easy bruising, bleeding, lymphadenopathy. EXAM <CHUY Hebert - Last Filed: 10/15/21 16:28> Physical Exam Narrative Exam Narrative: CONST: Patient sitting in no acute distress. EYES: Normal inspection. NECK: Normal inspection. RESP: No respiratory distress, CTAB. CVS: Regular rate and rhythm, no murmur, no gallop. ABD: Soft and nontender, no guarding or rebound, nondistended. SKIN: Color normal, no rash, warm, dry, intact. EXTREMITIES: Normal appearance, no pedal edema. NEURO: Oriented x4. PSYCH: Normal affect. Const Vital Signs: 10/15/21 14:13 10/15/21 14:19 10/15/21 14:46 Temperature 97.6 F L Temperature Source Temporal Pulse Rate 80 Respiratory Rate 16 Respiratory Effort Normal Non-Labored Respiratory Pattern Normal Blood Pressure 131/56 H Blood Pressure Mean 81 Pulse Ox 92 Oxygen Delivery Method Room Air Room Air 10/15/21 15:33 10/15/21 16:31 Temperature Temperature Source Pulse Rate 58 L 55 L Respiratory Rate 20 H 16 Respiratory Effort Respiratory Pattern Blood Pressure 151/63 H 166/70 H Blood Pressure Mean 92 Pulse Ox Oxygen Delivery Method Room Air <Dr. Aixa Bowers MD - Last Filed: 10/15/21 22:24> Physical Exam Const Vital Signs: 10/15/21 14:13 10/15/21 14:19 10/15/21 14:46 Temperature 97.6 F L Temperature Source Temporal Pulse Rate 80 Respiratory Rate 16 Respiratory Effort Normal Non-Labored Respiratory Pattern Normal Blood Pressure 131/56 H Blood Pressure Mean 81 Pulse Ox 92 Oxygen Delivery Method Room Air Room Air 10/15/21 15:33 10/15/21 16:31 Temperature Temperature Source Pulse Rate 58 L 55 L Respiratory Rate 20 H 16 Respiratory Effort Respiratory Pattern Blood Pressure 151/63 H 166/70 H Blood Pressure Mean 92 Pulse Ox Oxygen Delivery Method Room Air MDM <CHUY Hebert - Last Filed: 10/15/21 16:28> [facility] Narrative Medical decision making narrative: Patient presents with palpitations. No chest pain or shortness of breath. He appears well and nontoxic. Vital signs within normal limits. Heart is regular rate and rhythm. Lungs clear. Abdomen soft and nontender. EKG shows normal sinus rhythm with normal intervals and no acute ischemia. On lab work TSH is undetectable consistent with hyperthyroidism which is the likely etiology of his symptoms. He is being referred to endocrinology for this issue. Otherwise he has mild hypokalemia of 3.2 and was given oral replacement. No other abnormalities. Chest x-ray interpreted by radiologist noted possible mild pulmonary edema; on exam he has no signs of fluid overload. Patient is appropriate for discharge home for outpatient follow-up. Diagnoses 1. Palpitations 2. Hyperthyroidism 3. Hypokalemia Lab Data Labs: Laboratory Results - last 24 hr 10/15/21 10/15/21 14:50 14:50 WBC 5.0 RBC 5.49 Hgb 16.0 Hct 49.1 MCV 89.4 MCH 29.1 MCHC 32.6 RDW Std Deviation 45.8 H RDW Coeff of Daisy 13.9 Plt Count 151 MPV 11.1 Immature Gran % (Auto) 0.200 Neut % (Auto) 67.8 Lymph % (Auto) 18.7 L [place] % (Auto) 11.1 H Eos % (Auto) 1.6 Baso % (Auto) 0.6 Absolute Neuts (auto) 3.4 Absolute Lymphs (auto) 0.94 Nucleated RBC % 0 Sodium 142 Potassium 3.2 L Chloride 108 H Carbon Dioxide 30.0 Anion Gap 4 L BUN 12 Creatinine 0.88 Estim Creat Clear Calc 73.74 Est GFR (MDRD) Af Amer 109 Est GFR (MDRD) Non-Af 90 BUN/Creatinine Ratio 13.7 Glucose 108 H Calcium 9.9 Troponin I High Sens 12 TSH < 0.01 L Radiography Diagnostic Testing: Clinical Impression(s) from Imaging Studies Chest X-Ray 10/15/21 14:52 IMPRESSION: There is possible mild pulmonary edema. Electronically Signed: Eliezer Atkinson MD at 15:17 EDT Reading Location ID and State: [facility] / [place] , Service support , ED attending interpretation shows normal heart size, no acute infiltrate, edema, or effusion. <Dr. Aixa Bowers MD - Last Filed: 10/15/21 22:24> [facility] Lab Data Labs: Laboratory Results - last 24 hr 10/15/21 10/15/21 14:50 14:50 WBC 5.0 RBC 5.49 Hgb 16.0 Hct 49.1 MCV 89.4 MCH 29.1 MCHC 32.6 RDW Std Deviation 45.8 H RDW Coeff of Daisy 13.9 Plt Count 151 MPV 11.1 Immature Gran % (Auto) 0.200 Neut % (Auto) 67.8 Lymph % (Auto) 18.7 L [place] % (Auto) 11.1 H Eos % (Auto) 1.6 Baso % (Auto) 0.6 Absolute Neuts (auto) 3.4 Absolute Lymphs (auto) 0.94 Nucleated RBC % 0 Sodium 142 Potassium 3.2 L Chloride 108 H Carbon Dioxide 30.0 Anion Gap 4 L BUN 12 Creatinine 0.88 Estim Creat Clear Calc 73.74 Est GFR (MDRD) Af Amer 109 Est GFR (MDRD) Non-Af 90 BUN/Creatinine Ratio 13.7 Glucose 108 H Calcium 9.9 Troponin I High Sens 12 TSH < 0.01 L Radiography Diagnostic Testing: Clinical Impression(s) from Imaging Studies Chest X-Ray 10/15/21 14:52 IMPRESSION: There is possible mild pulmonary edema. Electronically Signed: Eliezer Atkinson MD at 15:17 EDT Reading Location ID and State: [facility] / [place] , Service support , Treatment and Re-Evaluation Narrative: Patient seen and evaluated with SYDNEE. I personally interviewed and examined the patient. I was involved in all aspects of patient's orders, interpretation of results, and treatment. Patient presents after having brief episode of chest pressure while eating lunch today. Patient states he had just gotten his second COVID-vaccine booster. He went to [employer] to eat lunch and while eating developed a brief, 10-second or so, episode of left-sided chest pressure. He states he felt as if he may pass out for just a second. Symptoms are resolved at this time. Patient sitting upright in bed no acute distress. Alert and talkative. Head and neck examination unremarkable. Heart is regular rate and rhythm. Lung sounds are clear. Abdomen is soft and nontender. EKG, chest x-ray, lab work obtained. Chest x-ray per my interpretation reveals chronic changes with no focal infiltrate. EKG reveals no ischemia. CBC and chemistry studies significant only for mildly low potassium at 3.2. TSH is less than 0.01. He was recently referred to endocrinology for evaluation and treatment of this. At this time patient's had no further episodes. He is reassured with the work-up and will follow up with his primary care physician as needed. Return instructions are provided. Discharge Plan Triage Chief Complaint: Palpitations ED Midlevel Provider: Shilpa Huntley ED Provider: Aixa Bowers Dx/Rx/DC Orders Clinical Impression: Heart palpitations, Hyperthyroidism Instructions: ED Hyperthyroidism, ED Palpitations Prescriptions: No Action lorazepam 1 mg tablet 1 mg PO PRN PRN (Reason: Anxiety) RF: 0 hydrochlorothiazide 25 mg tablet 25 mg PO DAILY RF: 0 cholecalciferol (vitamin D3) [Vitamin D3] 25 mcg (1,000 unit) Tablet 25 mcg PO DAILY RF: 0 acetaminophen 500 mg Tablet 1,000 mg PO TID 14 Days Qty: 84 RF: 0 potassium chloride 10 mEq capsule, extended release 10 meq PO BID RF: 0 atorvastatin 20 mg tablet 20 mg PO QHS RF: 0 metoprolol tartrate 25 mg tablet 25 mg PO BID RF: 0 paroxetine HCl 20 mg tablet 20 mg PO DAILY RF: 0 tamsulosin 0.4 mg Capsule 0.4 mg PO DAILY@1730 Qty: 30 RF: 1 Aspirin Childrens 81 mg PO/SL BID RF: 0 vancomycin 125 mg capsule 125 mg PO Q6H 10 Days Qty: 40 RF: 0 Primary Care Provider: Brandon Cantor Referrals: Brandon Cantor MD [Primary Care Provider] - Activity Restrictions/Additional Instructions: Your thyroid levels are abnormal and these are the likely cause of the palpitations. Please keep your appointment with the seasonal sales associate. Disposition Disposition: Home, Self Care Discharge Date/Time: 10/15/21 16:45
--- NOTE | 2021-10-15 14:52 | RAD_ITS ---
STUDY: X-RAY CHEST REASON FOR EXAM: Male, 76 years old. 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 chest pain TECHNIQUE: XR Chest 1 View COMPARISON: Jul 23 2021 9:58pm FINDINGS: There are bilateral infiltrates. Normal size heart. Normal mediastinum and zach. There is prominence of the pulmonary hilar arteries and peripheral pulmonary arteries, consistent with congestive heart failure (CHF). There is atherosclerotic calcification of the aortic arch with tortuosity. There are diffuse degenerative changes of the visualized thoracic spine. There is degenerative osteoarthritis of the bilateral shoulders. There is no demonstrated abnormality of the visualized soft tissue structures of the upper abdomen. RAD/Chest 1 View (Portable) IMPRESSION: There is possible mild pulmonary edema. Electronically Signed: Eliezer Atkinson MD at 15:17 EDT ,
[2021-10-15 14:56] LABS: Absolute Lymphocyte Count 0.94 X10^3/uL (0.83-4.51); Absolute Neutrophil Count 3.4 X10^3/uL (2.0-7.7); Basophil# 0.03 X10^3/uL; Basophil% 0.6 % (0-1); Eosinophil# 0.08 X10^3/uL; Eosinophils% 1.6 % (0-5); Hematocrit 49.1 % (40-54); Lymphocyte # 0.94 X10^3/ul (0.83-4.51); Lymphocyte % 18.7 % (19-41); Mean Corp Hgb Conc 32.6 g/dL (32-36); Mean Corpuscular Hgb 29.1 pg (27.0-32.0); Mean Corpuscular Volume 89.4 fL (80-94); Mean Platelet Vol. 11.1 fl (6.2-12.0); Monocyte# 0.56 X10^3/uL; Monocyte% 11.1 % (0-10); NRBC Flagged by Analyzer 0 % (0-5); Neutrophil # 3.42 X10^3/uL (2.7-7.7); Neutrophil % 67.8 % (47-70); Platelet Count 151 K/mm3 (150-450); RBC Distribution Width CV 13.9 % (11.6-14.6); RBC Distribution Width SD 45.8 fl (35.1-43.9); Red Blood Count 5.49 M/mm3 (4.6-6.2)
[2021-10-15] MEDS: Aspirin 81 MG TAB.CHEW 324 MG PO (14:56)
[2021-10-15 15:33] VITALS: BP 151/63; PULSE 58; RESP 20
[2021-10-15 16:05] LABS: Anion Gap 4 (5-15); BUN 12 mg/dL (7-18); BUN/Creat Ratio 13.7 RATIO (10-20); Calcium,Total 9.9 mg/dL (8.5-10.1); Chloride 108 mmol/L (98-107); Creatinine, Serum 0.88 mg/dL (0.70-1.30); EST Glomerular Filtration Rate 90 mL/min (>60); Est Glom Filt Rate - Afr Amer 109 mL/min (>60); Estimated Creatinine Clearance 73.74 ml/min; Glucose 108 mg/dL (74-106); Potassium 3.2 mmol/L (3.5-5.1); Sodium Level 142 mmol/L (136-145); Thyroid Stim Hormone (TSH) < 0.01 uIU/mL (0.358-3.74); Troponin-I HS (w/2H Reflex) 12 pg/mL (3.0-78.0)
[2021-10-15 16:31] VITALS: BP 166/70; PULSE 55; RESP 16
== END 2021-10-15 16:45 | disposition home or self-care (01) ==
PROVIDERS: Physician Assistant; Emergency Provider Emergency Medicine; PCP Internal Medicine; Visit Provider Emergency Medicine
DX: R00.2 Palpitations (principal); E05.90 Thyrotoxicosis, unspecified without thyrotoxic crisis or storm; E87.6 Hypokalemia; Z86.711 Personal history of pulmonary embolism; Z87.891 Personal history of nicotine dependence
CPT/HCPCS: 71045; 80048; 84443; 84484; 85025; 93005; 99285

== ENCOUNTER 2021-10-18 11:06 | Observation (INO) | payer MEDICARE, SELFPAY ==
[2021-10-18] VITALS (14 sets, daily range): BP systolic 103–175; BP diastolic 54–113; PULSE 54–73; RESP 16–18; TEMP 36.3–37.2; O2SAT 94–100; BMI 25.4; BMI 25.5; BMI 25.2
--- NOTE | 2021-10-18 11:17 | EKG12_ITS ---
Test Reason : STROKE ALERT Blood Pressure : / mmHG Vent. Rate : 055 BPM Atrial Rate : 055 BPM P-R Int : 184 ms QRS Dur : 100 ms QT Int : 458 ms P-R-T Axes : 032 -23 016 degrees QTc Int : 438 ms Sinus bradycardia Low voltage QRS (Limb Leads) Confirmed by AMADO DIMAS, SEUN ([id number]), associate editor JESE MENDOZA ([id number]) on 10/20/2021 10:31:57 AM Referred By: TAO Confirmed By:SEUN FISCHER MD
--- NOTE | 2021-10-18 11:17 | CT_ITS ---
STUDY: CT HEAD STROKE PROTOCOL W/O CONTRAST INJECTION REASON FOR EXAM: Male, 76 years old. Neuro deficit, acute, stroke suspected RADIATION DOSAGE (If Supplied By Facility): CTDIvol = ( 44.99 ) mGy, DLP = ( 63.6 ) mGycm TECHNIQUE: Transaxial CT imaging of the brain was performed without administration of intravenous contrast material. Individualized dose optimization techniques were used for this CT. COMPARISON: Comparison is made with prior study dated 12/15/2020. FINDINGS: Normal soft tissue structures. Normal calvarium. There is mild cerebral atrophy with widening of the extra-axial spaces and ventricular dilatation. There are areas of decreased attenuation within the white matter tracts of the supratentorial brain, consistent with microvascular disease changes. Normal basal ganglia and thalami. Normal brainstem. Normal cerebellum. There is no intracranial hemorrhage. There are no findings of an acute ischemic infarction. Atherosclerotic calcification of the cavernous portions of the internal carotid arteries as well as the vertebral arteries. Stable 1.4 cm polyp or retention cyst at the asymmetry of the left maxillary sinus. ASPECT score: 10 CT/STROKE Brain/Head without Cont IMPRESSION: Chronic involutional changes of the brain. N.B. : The above Results were Read Back by Cuong Reynolds MD to Dr Ruddy MD, and understanding confirmed on 10/18/2021 11:32:41 (ET). Electronically Signed: Cuong Reynolds MD at 11:33 EDT ,
--- NOTE | 2021-10-18 11:18 | CT_ITS ---
STUDY: CTA HEAD AND NECK WITH CONTRAST REASON FOR EXAM: Male, 76 years old. Neuro deficit, acute, stroke suspected RADIATION DOSAGE (If Supplied By Facility): CTDIvol = ( 33.86 ) mGy, DLP = ( 686.85 ) mGycm TECHNIQUE: CT angiography was performed with a multi-detector CT scanner. Data acquisition was obtained from the skull base through the vertex following intravenous administration of IV 100mL Isovue-370. MIP images were reconstructed from the axial data set. Post-processing of the angiographic images was performed, with multiplanar reformation and 3D reconstruction. Individualized dose optimization techniques were used for this CT. COMPARISON: No relevant priors. FINDINGS: Normal bilateral petrous carotid arteries. There is calcified plaque formation of the right cavernous carotid artery, without a cross-sectional luminal stenosis. There is calcified plaque formation of the left cavernous carotid artery, without a cross-sectional luminal stenosis. Normal right A1 segments of the anterior cerebral artery. Normal left A1 segments of the anterior cerebral artery. Normal intact anterior communicating artery (ACOM). Normal bilateral A2 segments of the anterior cerebral arteries. Normal right M1 and M2 segments of the middle cerebral arteries, with a normal M1 bifurcation. Normal left M1 and M2 segments of the middle cerebral arteries, with a normal M1 bifurcation. Normal right posterior communicating artery (PCOM). Normal left posterior communicating artery (PCOM). Normal bilateral vertebral arteries. Normal basilar artery with a normal basilar bifurcation. The visualized bilateral superior cerebellar (SCA) arteries are normal. Normal bilateral P1, P2 and visualized P3 segments of the posterior cerebral arteries. There is no demonstrated aneurysm of the [place] of [place]. Mucosal thickening of the inferior aspects of the maxillary sinuses. AORTIC ARCH: There is atherosclerotic calcific plaque formation of the aortic arch and great vessels arising from the aortic arch, without a hemodynamically significant stenosis. There is a normal origin of the brachiocephalic, left common carotid, and left subclavian arteries. RIGHT CAROTID ARTERIES: Normal right common carotid artery (CCA). Normal right common carotid bulb. There is moderate atherosclerotic plaque formation of the origin of the right internal carotid artery with an estimated stenosis of 50-69% stenosis. Normal visualized cervical portion of the right internal carotid artery. Normal origin of the right external carotid artery (ECA). LEFT CAROTID ARTERIES: Normal left common carotid artery (CCA). Normal left common carotid bulb. There is extensive atherosclerotic plaque formation of the origin of the left internal carotid artery with an estimated stenosis of greater than 70%. Normal visualized cervical portion of the left internal carotid artery. Normal origin of the left external carotid artery (ECA). VERTEBRAL ARTERIES: There is enhancement within the bilateral vertebral arteries with a small left vertebral artery, and a dominant right vertebral artery. Nonstenotic atherosclerotic plaque of the right vertebral artery. Moderate degree of diffuse enlargement of both lobes of the thyroid gland with a substernal extension worse on the left side. Heterogeneous appearance. CT/STROKE CTA Head AND Neck W/Con IMPRESSION: Calcific plaque formation at the level of the carotid bifurcations and proximal portions of the internal carotid arteries. 50-69% narrowing on the right side and greater than 70% narrowing on the left side. N.B. : The above Results were Read Back by Cuong Reynolds MD to Akin Fox and understanding confirmed on 10/18/2021 11:46:45 (ET). Electronically Signed: Cuong Reynolds MD at 11:48 EDT ,
--- NOTE | 2021-10-18 11:18 | NURSING ---
1116 STROKE ALERT CALLED
--- NOTE | 2021-10-18 11:19 | EDS_ITS ---
HPI History of Present Illness Chief Complaint: Neuro S/Sx [facility] Medical History Acute respiratory failure with hypoxia Anxiety Anxiety Anxiety Arthritis Arthritis Back pain BPH (benign prostatic hyperplasia) Cancer Cardiology follow-up encounter Change in bowel habit Chronic respiratory failure with hypoxia Closed right hip fracture Depression Depression Diarrhea Difficulty swallowing Fall Former smoker Heartburn History of echocardiogram History of edema History of pain when walking Hypercholesterolemia Hyperlipidemia Hypertension Hypertension Hypothyroidism Leg cramps Osteoarthritis Osteoporosis Polycythemia Prostate disease Pulmonary embolism Pulmonary embolism Shortness of breath on exertion Skin cancer Syncope Wears dentures Wears glasses Home Medications lorazepam 1 mg tablet 1 mg PO PRN PRN 01/31/18 [History Last Taken 07/23/21] hydrochlorothiazide 25 mg tablet 25 mg PO DAILY 03/12/19 [History Last Taken 07/23/21] atorvastatin 20 mg PO QHS 04/15/21 [History Last Taken 07/22/21] metoprolol tartrate 25 mg PO BID 04/15/21 [History Last Taken 07/23/21] potassium chloride 10 meq PO BID 04/15/21 [History Last Taken 07/23/21] cholecalciferol (vitamin D3) [Vitamin D3] 25 mcg PO DAILY 07/07/21 [History Last Taken 07/23/21] acetaminophen 1,000 mg PO TID 14 Days #84 tab 07/22/21 [Rx Last Taken Unknown] paroxetine HCl 20 mg PO DAILY 07/23/21 [History Last Taken 07/23/21] tamsulosin 0.4 mg PO DAILY@1730 #30 cap 07/28/21 [Rx Last Taken Unknown] Aspirin Childrens 81 mg PO/SL BID 08/21/21 [History Last Taken Unknown] vancomycin 125 mg PO Q6H 10 Days #40 cap 08/21/21 [Rx Last Taken Unknown] carbidopa 25 mg-levodopa 100 mg tablet tablet PO 10/18/21 [History Last Taken Unknown] Allergy/AdvReac Type Severity Reaction Status Date / Time No Known Allergies Allergy Verified 10/18/21 11:09 Family History Father Lung cancer Mother Parkinsons Heart failure Surgical History H/O colonoscopy History of cardiac catheterization History of colon surgery History of rhinoplasty History of total knee replacement (TKR) History of total right hip replacement History of transurethral resection of prostate reattachment of severed finger stoma reversal Social History household members: spouse housing: house 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al status: employed 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: [employer] pets and animals: Yes pets and animals: cat(s) and dog(s) Smoking Status: Former smoker quit date: 06/05/98 pack-years: 72 second hand exposure: No alcohol intake: never substance use type: does not use EXAM Physical Exam Const Vital Signs: 10/18/21 11:09 10/18/21 11:17 10/18/21 11:29 Temperature 97.7 F L 97.7 F L Temperature Source Temporal Temporal Pulse Rate 59 L 59 L Respiratory Rate 17 16 Blood Pressure 103/54 L 103/54 L Blood Pressure Mean 70 70 Pulse Ox 95 96 Oxygen Delivery Method Room Air Room Air Room Air 10/18/21 11:36 Temperature 98.9 F Temperature Source Temporal Pulse Rate 60 Respiratory Rate 16 Blood Pressure 144/64 H Blood Pressure Mean 90 Pulse Ox 100 Oxygen Delivery Method Room Air Positive well nourished and well developed General Appearance ED: well developed and NAD HEENT Reports TM's clear and moist mucous membranes atraumatic Nose: other Other Details: Ears normal. Nares patent. Posterior pharynx not erythema or exudate. No deviation of tongue with protrusion. Tympanic Membrane ED: Yes TM's clear Eyes PERRL and EOMs intact bilaterally General Eye ED: Negative for pale conjunctiva or scleral icterus Neck no lymphadenopathy, supple and no JVD Chest Wall inspection of chest normal and palpation of chest normal Resp normal respiratory effort and clear to auscultation bilaterally Cardio no murmurs Rate: regular rate Rhythm: regular rhythm Heart Sounds: S1 normal and S2 normal GI normal to inspection, nondistended, normoactive bowel sounds, soft to palpation, non-tender and non-distended Back/Spine no CVA tenderness Cervical Spine: Negative for cervical spine tenderness Thoracic Spine / Upper Back: Negative for thoracic spinal tenderness Lumbar Spine / Lower Back: Negative for lumbar spinal tenderness Extremity normal to inspection General Extremety ED: Negative for deformity, edema or tenderness General Extremity: Negative for deformity or edema Neuro No oriented x3, CN's II-XII intact bilaterally and no sensory deficits noted Rupert Coma Scale: document GCS findings Spontaneous Obeys Commands Confused 14 Sensorium / Orientation: alert Motor Exam: strength 5/5 throughout Psych mental status grossly normal Skin no wounds General Skin Exam: Negative for jaundice Lesions: no lesions Rashes: no rashes STROKE Vital Signs/Narrative: Vital Signs Temp Pulse Resp BP Pulse Ox 10/18/21 11:36 98.9 F 60 16 144/64 H 100 10/18/21 11:17 97.7 F L 59 L 16 103/54 L 96 10/18/21 11:09 97.7 F L 59 L 17 103/54 L 95 NIHSS Initial: 1a Level of Consciousness: 0 1b LOC Questions (Score 2 if aphasic/stupor): 2 1c LOC Commands (Only score 1st attempt): 0 2 Best Gaze (If aphasic, use reflexive mvmts.): 0 3 Visual: 0 4 Facial Palsy: 0 5 Motor Arm Right (UN = amputation/fusion): 0 5 Motor Arm Left: 0 6 Motor Leg Right: 0 6 Motor Leg Left: 0 8 Sensory (Aphasia/stupor=0 or 1, coma=2): 0 9 Best Language: 1 10 Dysarthria (mute, coma=2, intubated=UN): 0 11 Extinction and Inattention (only scored if +): 0 Total Score: 3 MDM MDM MDM Narrative Medical decision making narrative: Patient has an NIH of 3. Per Dr. Murray who was examining patient when his symptoms started the time of onset is 10:45 AM. states he normally is alert and oriented and it is unusual for him tut to know his age or month. Since patient does not have capacity spoke with . gave verbal consent. Called pharmacy at 1127 to mix tPA. Patient was reassessed at 1130. His speech is normal. He is no longer disoriented. tPA was canceled. Received call by radiologist informing that the scan is negative. Will contact hospitalist for admission for TIA work-up for expressive aphasia. Lab Data Labs: Laboratory Results - last 24 hr 10/18/21 10/18/21 11:30 11:31 WBC 4.2 L RBC 4.76 Hgb 14.1 Hct 43.3 MCV 91.0 MCH 29.6 MCHC 32.6 RDW Std Deviation 46.6 H RDW Coeff of Daisy 13.7 Plt Count 164 MPV 12.8 H Immature Gran % (Auto) 0.500 Neut % (Auto) 72.8 H Lymph % (Auto) 15.6 L [place] % (Auto) 9.4 Eos % (Auto) 1.2 Baso % (Auto) 0.5 Absolute Neuts (auto) 3.1 Absolute Lymphs (auto) 0.66 L Nucleated RBC % 0 POC Glucose 118 H Radiography Diagnostic Testing: Clinical Impression(s) from Imaging Studies Brain CT 10/18/21 11:17 IMPRESSION: Chronic involutional changes of the brain. N.B. : The above Results were Read Back by Cuong Reynolds MD to Dr Ruddy MD, and understanding confirmed on 10/18/2021 11:32:41 (ET). Electronically Signed: Cuong Reynolds MD at 11:33 EDT , ADDENDUM: 10/18/21 1140 IMPRESSION: Chronic involutional changes of the brain. N.B. : The above Results were Read Back by Cuong Reynolds MD to Dr Ruddy MD, and understanding confirmed on 10/18/2021 11:32:41 (ET). Electronically Signed: Cuong Reynolds MD at 11:33 EDT , Head/Neck CTA 10/18/21 11:18 IMPRESSION: Calcific plaque formation at the level of the carotid bifurcations and proximal portions of the internal carotid arteries. 50-69% narrowing on the right side and greater than 70% narrowing on the left side. N.B. : The above Results were Read Back by Cuong Reynolds MD to Akin Fox and understanding confirmed on 10/18/2021 11:46:45 (ET). Electronically Signed: Cuong Reynolds MD at 11:48 EDT , Stroke Documentation Questions Stroke Team Activated: Yes Reviewed Inclusion/Exclusion criteria: Yes IV Alteplase (t-PA) Administered: Yes (Since there is question regarding patient's capacity spoke to . 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 On reevaluation patient's symptoms have totally resolved.) Discharge Plan Dx/Rx/DC Orders Clinical Impression: Expressive aphasia, Hypertension, Hyperlipidemia, Hyperthyroidism, Brain TIA Disposition Disposition: Acute Care Hospital [facility]
[2021-10-18 11:36] LABS: Bedside Glucose 118 mg/dL (74-106)
[2021-10-18 11:41] LABS: Absolute Lymphocyte Count 0.66 X10^3/uL (0.83-4.51); Absolute Neutrophil Count 3.1 X10^3/uL (2.0-7.7); Basophil# 0.02 X10^3/uL; Basophil% 0.5 % (0-1); Eosinophil# 0.05 X10^3/uL; Eosinophils% 1.2 % (0-5); Hematocrit 43.3 % (40-54); Hemoglobin 14.1 g/dL (13.0-16.5); Lymphocyte # 0.66 X10^3/ul (0.83-4.51); Lymphocyte % 15.6 % (19-41); Mean Corp Hgb Conc 32.6 g/dL (32-36); Mean Corpuscular Hgb 29.6 pg (27.0-32.0); Mean Platelet Vol. 12.8 fl (6.2-12.0); Monocyte% 9.4 % (0-10); NRBC Flagged by Analyzer 0 % (0-5); Neutrophil # 3.09 X10^3/uL (2.7-7.7); Neutrophil % 72.8 % (47-70); Platelet Count 164 K/mm3 (150-450); RBC Distribution Width CV 13.7 % (11.6-14.6); RBC Distribution Width SD 46.6 fl (35.1-43.9); Red Blood Count 4.76 M/mm3 (4.6-6.2); White Blood Count 4.2 K/mm3 (4.4-11.0)
--- NOTE | 2021-10-18 11:49 | NURSING ---
DR RIKI BURGER
[2021-10-18 11:53] LABS: International Normalized Ratio 1.2; Prothrombin Time (Protime)PT. 14.4 SECONDS (11.7-14.9)
[2021-10-18 11:54] LABS: Partial Thromboplast Time 30.6 Seconds (24.1-36.2)
[2021-10-18 11:56] LABS: Anion Gap 4 (5-15); BUN 16 mg/dL (7-18); BUN/Creat Ratio 17.5 RATIO (10-20); Calcium,Total 9.1 mg/dL (8.5-10.1); Chloride 105 mmol/L (98-107); Creatinine, Serum 0.91 mg/dL (0.70-1.30); EST Glomerular Filtration Rate 86 mL/min (>60); Est Glom Filt Rate - Afr Amer 104 mL/min (>60); Estimated Creatinine Clearance 71.31 ml/min; Glucose 125 mg/dL (74-106); Potassium 3.7 mmol/L (3.5-5.1); Sodium Level 140 mmol/L (136-145); Troponin-I HS 7 pg/mL (3.0-78.0)
--- NOTE | 2021-10-18 12:00 | NURSING ---
PCU OBS RIKI EXPRESSIVE APHASIA DUE TO TIA
--- NOTE | 2021-10-18 12:05 | RAD_ITS ---
STUDY: X-RAY CHEST REASON FOR EXAM: Male, 76 years old. Neuro deficit, acute, stroke suspected TECHNIQUE: Single AP portable view of the chest. COMPARISON: Comparison is made with prior examination of 10/15/2021. FINDINGS: EKG electrodes are seen. Mild increased markings at the lung bases suggest some mild basilar scarring. There is no demonstrated pleural abnormality. Normal size heart. Normal mediastinum and zach. Normal visualized pulmonary arteries. There is atherosclerotic calcification of the aortic arch with tortuosity. There are diffuse degenerative changes of the visualized thoracic spine. Normal visualized ribs, clavicles, and shoulders. There is no demonstrated abnormality of the visualized soft tissue structures of the upper abdomen. RAD/Chest 1 View IMPRESSION: Mild increased linear markings at the lung bases suggest mild bibasilar scarring. Electronically Signed: Cuong Reynolds MD at 12:20 EDT ,
--- NOTE | 2021-10-18 12:05 | CHAPLAIN ---
Type of Pastoral Visit ___ Initial Visit ___ Follow-up Visit ___ On-call Visit ___ General Patient Visit ___ Spiritual Assessment ___ Family Conference ___ Bereavement _x__ Rapid Response ___ Code Blue ___ Other (describe below) Pastoral Care Referral From ___ Patient ___ Family ___ Nurse ___ Physician ___ Teen Counselor ___ Clean Up Helper Banquet _x__ Other (describe below) Sacrament/Intervention ___ Active listening ___ Anointing ___ Quaker ___ Bereavement ___ Communion ___ Nanette exploration ___ ___ Life review ___ Prayer ___ Reconciliation ___ Sacrament of Sick _x__ Supportive presence ___ Wedding ___ Other (describe below) Pastoral Comments came to rapid response for stroke alert; pt was in CT and spouse was being supported by SW; pt returned from CT and stroke alert was discontinued; was available as needed
--- NOTE | 2021-10-18 12:08 | ED.RN ---
dr. ruiz states we are not doing tPA. cancel tpa order set.
--- NOTE | 2021-10-18 12:10 | CM.ED ---
MELANIE Note Referral Source: Stroke Alert Referral Reason: Stroke Alert MELANIE Downey and this junior underwriter met with patient's . Updated her about stroke alert process. Emotional support provided. MELANIE remains available if needs arise. Plan: Emotional Support Provided Laurie PASCUAL
--- NOTE | 2021-10-18 12:26 | HP.PCM.HOS_ITS ---
HPI - General General Date of Admission: 10/18/21 Date of Service: 10/18/21 HPI Narrative MARTA OLIVIA, is a 76 M with multiple comorbidities listed below was sent to ED by qa automation developer Dr. Murray for evaluation for possible stroke. Patient had difficulty understanding speech, difficulty answering question, sudden forgetfulness and acting weird. He was found to have NIH 3 ED, his age and month and mild language deficit. Patient recently had right TKR in July 2021 and has right knee stiffness and could not flex or extend completely. Patient had initial work-up in ED and is ready for tPA after consultation with [facility] neurologist but his symptoms resolved therefore canceled. Head and neck CTA shows calcific plaque at level of carotid bifurcation, 50 to 69% on right side and more than 70% on the left side. [facility] neurologist recommended loading dose of Plavix 300 milligram and aspirin. Patient is further admitted. REPLACED BY [facility] Medical History Acute respiratory failure with hypoxia Anxiety Anxiety Anxiety Arthritis Arthritis Back pain BPH (benign prostatic hyperplasia) Cancer Cardiology follow-up encounter Change in bowel habit Chronic respiratory failure with hypoxia Closed right hip fracture Depression Depression Diarrhea Difficulty swallowing Fall Former smoker Heartburn History of echocardiogram History of edema History of pain when walking Hypercholesterolemia Hyperlipidemia Hypertension Hypertension Hypothyroidism Leg cramps Osteoarthritis Osteoporosis Polycythemia Prostate disease Pulmonary embolism Pulmonary embolism Shortness of breath on exertion Skin cancer Syncope Wears dentures Wears glasses Home Medications lorazepam 1 mg tablet 1 mg PO PRN PRN 01/31/18 [History Last Taken 07/23/21] hydrochlorothiazide 25 mg tablet 25 mg PO DAILY 03/12/19 [History Last Taken 07/23/21] atorvastatin 20 mg PO QHS 04/15/21 [History Last Taken 07/22/21] metoprolol tartrate 25 mg PO BID 04/15/21 [History Last Taken 07/23/21] potassium chloride 10 meq PO BID 04/15/21 [History Last Taken 07/23/21] cholecalciferol (vitamin D3) [Vitamin D3] 25 mcg PO DAILY 07/07/21 [History Last Taken 07/23/21] acetaminophen 1,000 mg PO TID 14 Days #84 tab 07/22/21 [Rx Last Taken Unknown] paroxetine HCl 20 mg PO DAILY 07/23/21 [History Last Taken 07/23/21] tamsulosin 0.4 mg PO DAILY@1730 #30 cap 07/28/21 [Rx Last Taken Unknown] Aspirin Childrens 81 mg PO/SL BID 08/21/21 [History Last Taken Unknown] vancomycin 125 mg PO Q6H 10 Days #40 cap 08/21/21 [Rx Last Taken Unknown] carbidopa 25 mg-levodopa 100 mg tablet tablet PO 10/18/21 [History Last Taken Unknown] Allergy/AdvReac Type Severity Reaction Status Date / Time No Known Allergies Allergy Verified 10/18/21 11:09 Family History Father Lung cancer Mother Parkinsons Heart failure Surgical History H/O colonoscopy History of cardiac catheterization History of colon surgery History of rhinoplasty History of total knee replacement (TKR) History of total right hip replacement History of transurethral resection of prostate reattachment of severed finger stoma reversal Social History household members: spouse housing: house 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al status: employed 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: [employer] pets and animals: Yes pets and animals: cat(s) and dog(s) Smoking Status: Former smoker quit date: 06/05/98 pack-years: 72 second hand exposure: No alcohol intake: never substance use type: does not use ROS ROS Narrative Constitutional: Reports sudden onset of forgetfulness/amnesia as described in HPI. No fever HEENT: Reports systems reviewed and no addt'l complaints, except as documented Respiratory/Chest: Denies chest pain, shortness of breath at rest or with exertion Gastrointestinal: Denies coffee ground emesis, hematemesis or vomiting Genitourinary: Denies burning urination or new urinary tract symptoms Musculoskeletal: Right TKR with chronic stiffness after surgery. Neurologic: Denies seizure-like activity. As described in HPI skin: No ulcer. No rash Endocrinology: Possible thyroid abnormality under work-up. Reports systems reviewed and no addt'l complaints, except as documented Hematologic/Lymphatic: reports systems reviewed and no addt'l complaints, except as documented Rest 14 ROS are negative except as mentioned in HPI Vital Signs Vital Signs Vital Signs: 10/18/21 11:09 10/18/21 11:17 10/18/21 11:29 Temperature 97.7 F L 97.7 F L Temperature Source Temporal Temporal Pulse Rate 59 L 59 L Respiratory Rate 17 16 Blood Pressure 103/54 L 103/54 L Blood Pressure Mean 70 70 Pulse Ox 95 96 Oxygen Delivery Method Room Air Room Air Room Air 10/18/21 11:36 10/18/21 11:47 10/18/21 11:51 Temperature 98.9 F 97.5 F L 98.4 F Temperature Source Temporal Temporal Temporal Pulse Rate 60 59 L 56 L Respiratory Rate 16 18 17 Blood Pressure 144/64 H 160/72 H 114/61 Blood Pressure Mean 90 101 78 Pulse Ox 100 97 97 Oxygen Delivery Method Room Air Room Air Room Air 10/18/21 12:17 Temperature 98.7 F Temperature Source Temporal Pulse Rate 64 Respiratory Rate 18 Blood Pressure 145/67 H Blood Pressure Mean 93 Pulse Ox 98 Oxygen Delivery Method Room Air Weight Weight: 178 lb 2.136 oz Body Mass Index (BMI) 25.5 Physical Exam Narrative General: Alert, Oriented x3, Cooperative HEENT: Atraumatic, PERRLA, EOMI, Normocephalic Oral: No Gingival or Mucosal Lesions/ Ulcerations Neck: Supple, No JVD, Negative Carotid Bruits. No neck rigidity Lungs: Air entry diminished in bilateral lung bases. No crepitation/rhonchi Cardiovascular: Sinus bradycardia, Normal S1, Normal S2, No murmurs Abdomen: Bowel Sounds Present, Soft, Non Tender, Non-Distended : No renal angle tenderness. No suprapubic tenderness. Extremities: No edema, Capillary Refill Less than 3 Seconds Skin: No rashes, No breakdown Musculoskeletal: No Tenderness to Palpation of Joints or Extremities Neurological: Cranial nerves II-XII grossly intact, DTR 2+/4. NIH score 0. Muscle strength 4+/5 at major joints Psych/Mental Status: Normal Affect, Appropriate Results Lab / Micro Data Result Diagrams: 10/18/21 11:30 10/18/21 11:30 Labs: Laboratory Results - last 24 hr 10/18/21 11:30: WBC 4.2 L, RBC 4.76, Hgb 14.1, Hct 43.3, MCV 91.0, MCH 29.6, MCHC 32.6, RDW Std Deviation 46.6 H, RDW Coeff of Daisy 13.7, Plt Count 164, MPV 12.8 H, Immature Gran % (Auto) 0.500, Neut % (Auto) 72.8 H, Lymph % (Auto) 15.6 L, [place] % (Auto) 9.4, Eos % (Auto) 1.2, Baso % (Auto) 0.5, Absolute Neuts (auto) 3.1, Absolute Lymphs (auto) 0.66 L, Nucleated RBC % 0 10/18/21 11:30: PT 14.4, INR 1.2, APTT 30.6 10/18/21 11:30: Sodium 140, Potassium 3.7, Chloride 105, Carbon Dioxide 31.0, Anion Gap 4 L, BUN 16, Creatinine 0.91, Estim Creat Clear Calc 71.31, Est GFR (MDRD) Af Amer 104, Est GFR (MDRD) Non-Af 86, BUN/Creatinine Ratio 17.5, Glucose 125 H, Calcium 9.1, Troponin I High Sens 7 10/18/21 11:30: Magnesium 2.0 10/18/21 11:31: POC Glucose 118 H Radiology Impression Brain CT 10/18/21 11:17 IMPRESSION: Chronic involutional changes of the brain. N.B. : The above Results were Read Back by Cuong Reynolds MD to Dr Ruddy MD, and understanding confirmed on 10/18/2021 11:32:41 (ET). Electronically Signed: Cuong Reynolds MD at 11:33 EDT , ADDENDUM: 10/18/21 1140 IMPRESSION: Chronic involutional changes of the brain. N.B. : The above Results were Read Back by Cuong Reynolds MD to Dr Ruddy MD, and understanding confirmed on 10/18/2021 11:32:41 (ET). Electronically Signed: Cuong Reynolds MD at 11:33 EDT , Head/Neck CTA 10/18/21 11:18 IMPRESSION: Calcific plaque formation at the level of the carotid bifurcations and proximal portions of the internal carotid arteries. 50-69% narrowing on the right side and greater than 70% narrowing on the left side. Chest X-Ray 10/18/21 12:05 IMPRESSION: Mild increased linear markings at the lung bases suggest mild bibasilar scarring. Assessment & Plan Assessment/Plan (1) Brain TIA: PLAN: 1. Acute neurological deficit probably TIA: Patient is being admitted in PCU for observation. CT head and CTA head and neck already done, as described in HPI. Continue aspirin Plavix and high intensity statin. Fasting profile and TSH tomorrow AM. Troponin is negative. Twelve-lead visually reviewed shows sinus bradycardia 55 beats per. QTc 438 ms. Chest x-ray initially reviewed shows mild bibasilar atelectasis/scarring. Patient evaluated by [facility] Teleneurologist and recommended keeping SBP 140-180, Plavix 300 mg once and aspirin 81 mg daily. Fasting profile, A1c also ordered. Patient does not have new lower urinary tract symptoms therefore UA not recommended. Completed stroke work-up with MRI brain, echo, physical occupational and speech therapy evaluation. BP was controlled as per stroke guidelines. Glucose is 118. 2. Bilateral carotid stenosis: CTA shows 70% stenosis of left ICA and 50 to 69% on right side. Possible left carotid thromboembolic source of TIA. Management as mentioned above 3 Hypertension: BP goal as mentioned above. Patient is on metoprolol and hydrochlorothiazide #Hyperlipidemia: On high intensity statin. 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 Patient is also on Xarelto for postop DVT prophylaxis after right knee TKR. Possible early Parkinson disease: Patient also on evaluation of Parkinson disease. On carbidopa. Living will/advanced directive/end of life care: Patient does not have living will or advanced directive or power of corporate attorney for health. His is next to kin. After discussion of benefits/risks procedures involved with full code, DNR CC arrest and DNR CC, the patient and his opted for full code. Patient does want artificial life support including intubation, tube feed, ventilator and/chest compression, central venous catheter, vasopressor and DC shock if needed Total time spent in [id number] encounter in discussion of advanced directive 16 minutes. Charges/Coding Visit Charges OBSV E&M: 76178 Initial observation care L3 Procedures Hospitalists Procedures: 31368 Advncd Care Plan 30 Min
[2021-10-18] MEDS: Clopidogrel Bisulfate 300 MG Tablet PO (12:34)
[2021-10-18] MEDS: Aspirin 325 MG Tablet PO (12:34)
--- NOTE | 2021-10-18 13:08 | ECHOD_ITS ---
Reason For Study: TIA/CVA Procedure This was a 2D Doppler, Color Flow transthoracic echocardiogram. Exam performed portable in patient room. Left Ventricle Normal LV size. Left ventricular systolic function is normal. The estimated ejection fraction is 65 %. Stage 1 diastolic dysfunction. No regional wall motion abnormalities noted. Right Ventricle Normal RV size. Normal systolic function. Atria Normal left atrium. Normal right atrium. Bubble contrast study negative for right to left interatrial shunt. Mitral Valve Normal mitral valve. Tricuspid Valve Normal tricuspid valve. Mild tricuspid valve insufficiency. Pulmonary artery systolic pressure is 28 mmHg. Aortic Valve Trisinus/trileaflet aortic valve. Mild focal aortic valve calcification. Pulmonic Valve Normal pulmonic valve. Great Vessels Normal aortic root. The pulmonary artery is normal size. Normal inferior vena cava. Pericardium/Pleural No pericardial effusion. Medication Performed a rapid injection of agitated mix of 9 cc saline and 1cc air to assess for atrial septal defect. MMode/2D Measurements & Calculations LVIDd: 5.6 cm IVSd: 1.1 cm Ao root diam: 3.4 cm LVIDs: 3.6 cm LVPWd: 1.1 cm RVDd: 3.7 cm FS: 36.4 % LAV(MOD-bp): 35.4 ml LVAd ap4: 32.3 cm2 SV(MOD-sp4): 66.4 ml LAV(MOD-bp) Indexed: 17.8 ml/m2 LVLd ap4: 8.9 cm LAV(MOD-sp2): 45.3 ml EDV(MOD-sp4): 96.2 ml LAV(MOD-sp4): 25.9 ml EDV(sp4-el): 99.1 ml LVAs ap4: 15.4 cm2 LVLs ap4: 7.1 cm ESV(MOD-sp4): 29.8 ml ESV(sp4-el): 28.2 ml EF(MOD-sp4): 69.0 % EF(sp4-el): 71.6 % SV(sp4-el): 70.9 ml LA A4 area: 12.5 cm2 LA dimension(2D): 3.5 cm RA A4 area: 14.4 cm2 Doppler Measurements & Calculations MV E max marc: 80.4 cm/sec Lat Peak E' Marc: 9.4 cm/sec Med Peak E' Marc: 7.6 cm/sec MV A max marc: 88.7 cm/sec E/E' lat: 8.6 E/E' med: 10.6 MV E/A: 0.91 Ao V2 max: 142.3 cm/sec LV V1 max: 107.2 cm/sec PA V2 max: 80.8 cm/sec Ao max P.1 mmHg LV V1 max P.6 mmHg Ao V2 mean: 93.4 cm/sec Ao mean P.9 mmHg Ao V2 VTI: 30.2 cm TR max marc: 245.5 cm/sec TR max P.1 mmHg ECHO/Echo Complete Interpretation Summary Normal LV size. Left ventricular systolic function is normal. The estimated ejection fraction is 65 %. Stage 1 diastolic dysfunction. Bubble contrast study negative for right to left interatrial shunt. Pulmonary artery systolic pressure is 28 mmHg. Ordering Physician: Khoa Conner Referring Physician: Brandon Zimmer Performed By: Jenniffer Wood, TONY, RVT
--- NOTE | 2021-10-18 13:08 | MRI_ITS ---
EXAM: MR HEAD WITHOUT INTRAVENOUS CONTRAST CLINICAL INDICATION: acute stroke, SPEECH DIFFICULTY TECHNIQUE: Multiplanar and multisequence MR images of the brain were obtained without intravenous contrast. This report was created using [employer] report generation technology. COMPARISON: CT head done earlier FINDINGS: BRAIN AND EXTRA-AXIAL SPACES: Unremarkable. No intra- or extra-axial hemorrhage. No evidence of acute infarct. No intracranial mass or mass effect. There is preservation of the weir/white matter interface. Posterior fossa structures are unremarkable. Ventricles are appropriate for age. No hydrocephalus. Basal cisterns are patent. SELLA: Unremarkable. Normal sella turcica, pituitary gland, infundibular stalk, optic chiasm and hypothalamus. AUDITORY SYSTEM: Unremarkable. The internal auditory canals are patent. BONES/JOINTS: Unremarkable. No discrete lytic or blastic abnormalities. SINUSES: There is a mucous retention cyst and/or polyp of the left maxillary sinus. MASTOID AIR CELLS: Unremarkable as visualized. Clear. ORBITS: Unremarkable as visualized. Both globes, extraocular muscles, optic nerves and retrobulbar fat appear unremarkable. VASCULATURE: Unremarkable as visualized. Normal flow voids in the major intracranial circulation. MRI/Brain without Contrast IMPRESSION: No acute findings in the head/brain. Electronically Signed: Eliezer Atkinson MD at 15:48 EDT ,
[2021-10-18] MEDS: 0.9% Normal Saline 1,000 ML 75 ML IV (14:02)
[2021-10-18] MEDS: Tamsulosin HCl 0.4 MG Capsule PO (16:36)
[2021-10-18] MEDS: 0.9% Saline Lock 10 ML Syringe IV (16:37)
[2021-10-18 16:41] LABS: Bedside Glucose 76 mg/dL (74-106)
[2021-10-18] MEDS: Potassium Chloride Oral Tablet 20 MEQ PO (18:33)
[2021-10-18] MEDS: Carbidopa/Levodopa 25/100 Tablet PO (18:49)
[2021-10-18] MEDS: Atorvastatin Calcium 80 MG Tablet PO (23:02)
[2021-10-18] MEDS: Metoprolol Tartrate 25 MG Tablet PO (23:02)
[2021-10-19] VITALS (9 sets, daily range): BP systolic 111–187; BP diastolic 49–79; PULSE 55–65; RESP 15–18; TEMP 36.7–36.8; O2SAT 94–98
[2021-10-19] LABS: Bedside Glucose 84 mg/dL (74-106)
[2021-10-19] MEDS: Acetaminophen 325 MG Tablet 650 MG PO (00:12)
[2021-10-19] MEDS: hydrALAZINE 20 MG/ML Vial 5 MG IV (05:20)
[2021-10-19] MEDS: 0.9% Saline Lock 10 ML Syringe IV (05:28)
[2021-10-19] MEDS: Carbidopa/Levodopa 25/100 Tablet PO ×2 (06:05→10:56)
[2021-10-19 06:56] LABS: Bedside Glucose 90 mg/dL (74-106)
[2021-10-19 07:26] LABS: Anion Gap 7 (5-15); BUN 12 mg/dL (7-18); Calcium,Total 9.1 mg/dL (8.5-10.1); Chloride 109 mmol/L (98-107); Cholesterol 94 mg/dL (200); Creatinine, Serum 0.71 mg/dL (0.70-1.30); EST Glomerular Filtration Rate 115 mL/min (>60); Est Glom Filt Rate - Afr Amer 140 mL/min (>60); Estimated Creatinine Clearance 64.89 ml/min; Glucose 89 mg/dL (74-106); High Density Lipoprotein 35 mg/dL; Potassium 3.7 mmol/L (3.5-5.1); Sodium Level 141 mmol/L (136-145); Thyroid Stim Hormone (TSH) < 0.01 uIU/mL (0.358-3.74); Triglycerides 70 mg/dL; Very Low Density Lipoprotein 14 mg/dL (5-40)
--- NOTE | 2021-10-19 10:00 | PCM.DC ---
Discharge Instructions Diet Discharge Diet: Low fat / Low cholesterol and 2000 mg Sodium Diet Activity Discharge Activity: Return to Normal Activity and May Not Drive Weight Bearing Status: Weight bearing as tolerated Dressing / Incision Call your doctor if you observe: Fever of 101 or Higher, Coldness, Increased Pain, Numbness or Tingling, Change in Color, Inability to urinate, Inability to have a bowel movement, Shortness of breath, Dizziness, Fainting spells, Swelling in the ankles, Chest pain, Prolonged hiccupping, Increased palpitations (irregular heartbeat), Calf discomfort and Uncontrolled pain Follow Up Care Test Results: Test results from this visit will be discussed in further detail at your follow-up appointment, if applicable. Discharge Plan Admission Admit Date/Time: 10/18/21 11:48 Primary Reason for Your Visit: TIA Attending Provider: Khoa Conner Primary Care Provider: Brandon Cantor Instructions Additional Instructions / Restrictions: Outpatient speech therapy. Discharge Orders/Prescriptions Prescriptions: New aspirin 81 mg Tablet,Chewable 81 mg PO BREAKFAST Qty: 30 RF: 2 clopidogrel [Plavix] 75 mg tablet 75 mg PO DAILY Qty: 30 RF: 2 Continued carbidopa-levodopa 25-100 mg tablet 25 - 100 tablet PO TID RF: 0 cholecalciferol (vitamin D3) [Vitamin D3] 25 mcg (1,000 unit) Tablet 25 mcg PO DAILY RF: 0 potassium chloride 10 mEq capsule, extended release 10 meq PO BID RF: 0 metoprolol tartrate 25 mg tablet 25 mg PO BID RF: 0 paroxetine HCl 20 mg tablet 20 mg PO DAILY RF: 0 tamsulosin 0.4 mg Capsule 0.4 mg PO DAILY@1730 Qty: 30 RF: 1 isosorbide mononitrate 30 mg tablet extended release 24 hr 30 mg PO DAILY RF: 0 acetaminophen 325 mg Tablet 650 mg PO Q6H PRN (Reason: Pain) RF: 0 Changed atorvastatin 20 mg tablet 40 mg PO QHS Qty: 60 RF: 0 Discontinued Aspirin Childrens 81 mg OTHER BID RF: 0 dicyclomine 10 mg capsule 10 mg PO QHS RF: 0 Referrals / Follow Up: Erasto Guzman MD [STAFF PHYSICIAN] - Within 1 Month (TIA, B/L Carotid stenosis) William Jimenes MD [STAFF PHYSICIAN] - Within 1 Month (B/L Carotid stenosis with TIA) Brandon Cantor MD [Primary Care Provider] - Disposition Disposition (needs filled in before D/C Order can be placed): Home, Self Care
--- NOTE | 2021-10-19 10:09 | CASEMGMT ---
Speech therapy recommending OP speech at discharge, pt is agreeable to [id number]. Order obtained, faxed to [id number], and original to pt. Per PT/OT notes, pt did well. Pt declines need for PT/OT at discharge. Pt voices no further questions/concerns/needs. SStvonda ZEE CM
--- NOTE | 2021-10-19 10:50 | PCM.DC.SUM ---
Providers Date of Admission: 10/18/21 Date of Discharge: 10/19/21 Primary Care Physician: Dr. Brandon Cantor MD Reason For Visit: TIA Diagnosis Discharge Diagnosis (1) Brain TIA: Status: Acute Code(s): G45.9 - Transient cerebral ischemic attack, unspecified Medications at Discharge Home Medications metoprolol tartrate 25 mg PO BID 04/15/21 potassium chloride 10 meq PO BID 04/15/21 cholecalciferol (vitamin D3) [Vitamin D3] 25 mcg PO DAILY 07/07/21 paroxetine HCl 20 mg PO DAILY 07/23/21 tamsulosin 0.4 mg PO DAILY@1730 #30 cap 07/28/21 acetaminophen 650 mg PO Q6H PRN 10/18/21 carbidopa 25 mg-levodopa 100 mg tablet 25 - 100 tablet PO TID 10/18/21 isosorbide mononitrate 30 mg PO DAILY 10/18/21 aspirin 81 mg PO BREAKFAST #30 tab 10/19/21 atorvastatin 40 mg PO QHS #60 tab 10/19/21 clopidogrel [Plavix] 75 mg PO DAILY #30 tab 10/19/21 methimazole 5 mg tablet 5 mg PO DAILY #30 tab 10/19/21 Hospital Course Summary of Care Provided Hospital Course: This is an antiseizure questionings with multiple comorbidities was admitted with difficulty in understanding speech, answering question, sudden forgetfulness/unaware of the surrounding. His initial NIH was 3 in the ED which resolved. Further hospital course as mentioned below. 1. Acute neurological deficit probably TIA: Patient was admitted in PCU for observation. CT head did not show acute change. Continue aspirin Plavix and high intensity statin. Fasting profile shows HDL 35. Troponin is negative. A1c 5.0%. Magnesium 2.0. Twelve-lead visually reviewed shows sinus bradycardia 55 beats per. QTc 438 ms. Chest x-ray initially reviewed shows mild bibasilar atelectasis/scarring. Patient evaluated by [facility] Teleneurologist and recommended keeping SBP 140-180, Plavix 300 mg once and aspirin 81 mg daily. patient does not have new lower urinary tract symptoms therefore UA not recommended. MRI brain shows no acute finding. 2D echo EF 65% normal LV size. Bubble contrast study negative for [id number] interatrial shunt. Patient is discharged on aspirin 81 mg daily, Plavix 75 mg and high intensity statin. PT OT and speech therapy evaluation done. Recommended outpatient speech therapy prescription was sent. 2. Bilateral carotid stenosis: CTA shows 70% stenosis of left ICA and 50 to 69% on right side. Possible left carotid thromboembolic source of TIA. Management as mentioned above 3 Hypertension: BP goal as mentioned above. Patient is on metoprolol and hydrochlorothiazide #Hyperlipidemia: On high intensity statin. 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 Patient is also on Xarelto for postop DVT prophylaxis after right knee TKR. Hyperthyroidism: TSH very low less than 0.01. Patient follows Dr. Murray. Advised to follow-up with her for further work-up with free T4. Possible early Parkinson disease: Patient also on evaluation of Parkinson disease. On carbidopa. Discharge medication reconciliation done. Discharge follow-up instructions completed. Discharge process discussed with the patient and all questions were answered to patient's satisfaction. Total time spent, exact 35 minutes on discharge meds reconciliation, examination, coordination of care with nurses and ancillary staff, review of imaging and blood test and discussion with the patient on follow-up instructions. Physical Exam Narrative General: Alert, Oriented x3, Cooperative HEENT: Atraumatic, PERRLA, EOMI, Normocephalic Oral: No Gingival or Mucosal Lesions/ Ulcerations Neck: Supple, No JVD, Negative Carotid Bruits. No neck rigidity Lungs: Air entry diminished in bilateral lung bases. No crepitation/rhonchi Cardiovascular: Sinus bradycardia, Normal S1, Normal S2, No murmurs Abdomen: Bowel Sounds Present, Soft, Non Tender, Non-Distended : No renal angle tenderness. No suprapubic tenderness. Extremities: No edema, Capillary Refill Less than 3 Seconds Skin: No rashes, No breakdown Musculoskeletal: No Tenderness to Palpation of Joints or Extremities Neurological: Cranial nerves II-XII grossly intact, DTR 2+/4. NIH score 0. Muscle strength 4+/5 at major joints Psych/Mental Status: Normal Affect, Appropriate Weight / BMI Weight Weight: 174 lb 13.225 oz Body Mass Index (BMI) 25.2 ABG / Lab / Microbiology Data Result Diagrams: 10/18/21 11:30 10/19/21 06:28 Laboratory: Laboratory Results - last 24 hr 10/18/21 11:30: WBC 4.2 L, RBC 4.76, Hgb 14.1, Hct 43.3, MCV 91.0, MCH 29.6, MCHC 32.6, RDW Std Deviation 46.6 H, RDW Coeff of Daisy 13.7, Plt Count 164, MPV 12.8 H, Immature Gran % (Auto) 0.500, Neut % (Auto) 72.8 H, Lymph % (Auto) 15.6 L, Robeson % (Auto) 9.4, Eos % (Auto) 1.2, Baso % (Auto) 0.5, Absolute Neuts (auto) 3.1, Absolute Lymphs (auto) 0.66 L, Nucleated RBC % 0 10/18/21 11:30: PT 14.4, INR 1.2, APTT 30.6 10/18/21 11:30: Sodium 140, Potassium 3.7, Chloride 105, Carbon Dioxide 31.0, Anion Gap 4 L, BUN 16, Creatinine 0.91, Estim Creat Clear Calc 71.31, Est GFR (MDRD) Af Amer 104, Est GFR (MDRD) Non-Af 86, BUN/Creatinine Ratio 17.5, Glucose 125 H, Calcium 9.1, Troponin I High Sens 7 10/18/21 11:30: Magnesium 2.0 10/18/21 11:31: POC Glucose 118 H 10/18/21 16:33: POC Glucose 76 10/18/21 23:05: POC Glucose 84 10/19/21 06:28: Sodium 141, Potassium 3.7, Chloride 109 H, Carbon Dioxide 25.0, Anion Gap 7, BUN 12, Creatinine 0.71, Estim Creat Clear Calc 64.89, Est GFR (MDRD) Af Amer 140, Est GFR (MDRD) Non-Af 115, BUN/Creatinine Ratio 17.0, Glucose 89, Calcium 9.1, Triglycerides 70, Cholesterol 94, LDL Cholesterol 45, VLDL Cholesterol 14, HDL Cholesterol 35 L, TSH < 0.01 L 10/19/21 06:28: Hemoglobin A1c 5.0 10/19/21 06:49: POC Glucose 90 Radiography Diagnostic Testing: Radiology Impression Brain CT 10/18/21 11:17 IMPRESSION: Chronic involutional changes of the brain. N.B. : The above Results were Read Back by Cuong Reynolds MD to Dr Ruddy MD, and understanding confirmed on 10/18/2021 11:32:41 (ET). Electronically Signed: Cuong Reynolds MD at 11:33 EDT , ADDENDUM: 10/18/21 1140 IMPRESSION: Chronic involutional changes of the brain. N.B. : The above Results were Read Back by Cuong Reynolds MD to Dr Ruddy MD, and understanding confirmed on 10/18/2021 11:32:41 (ET). Electronically Signed: Cuong Reynolds MD at 11:33 EDT , Head/Neck CTA 10/18/21 11:18 IMPRESSION: Calcific plaque formation at the level of the carotid bifurcations and proximal portions of the internal carotid arteries. 50-69% narrowing on the right side and greater than 70% narrowing on the left side. N.B. : The above Results were Read Back by Cuong Reynolds MD to Akin Fox and understanding confirmed on 10/18/2021 11:46:45 (ET). Electronically Signed: Cuong Reynolds MD at 11:48 EDT , ADDENDUM: 10/18/21 1155 IMPRESSION: Calcific plaque formation at the level of the carotid bifurcations and proximal portions of the internal carotid arteries. 50-69% narrowing on the right side and greater than 70% narrowing on the left side. N.B. : The above Results were Read Back by Cuong Reynolds MD to Akin Fox and understanding confirmed on 10/18/2021 11:46:45 (ET). Electronically Signed: Cuong Reynolds MD at 11:48 EDT , Chest X-Ray 10/18/21 12:05 IMPRESSION: Mild increased linear markings at the lung bases suggest mild bibasilar scarring. Electronically Signed: Cuong Reynolds MD at 12:20 EDT , Brain MRI 10/18/21 13:08 IMPRESSION: No acute findings in the head/brain. Electronically Signed: Eliezer Atkinson MD at 15:48 EDT , Echocardiogram 10/18/21 13:08 Interpretation Summary Normal LV size. Left ventricular systolic function is normal. The estimated ejection fraction is 65 %. Stage 1 diastolic dysfunction. Bubble contrast study negative for right to left interatrial shunt. Pulmonary artery systolic pressure is 28 mmHg. Ordering Physician: Khoa Conner Referring Physician: Brandon Zimmer Performed By: Jenniffer Wood RDCS, RVT D/C Instructions Discharge Diet: Low fat / Low cholesterol and 2000 mg Sodium Diet Weight Bearing Status: Weight bearing as tolerated Call your doctor if you observe: Fever of 101 or Higher, Coldness, Increased Pain, Numbness or Tingling, Change in Color, Inability to urinate, Inability to have a bowel movement, Shortness of breath, Dizziness, Fainting spells, Swelling in the ankles, Chest pain, Prolonged hiccupping, Increased palpitations (irregular heartbeat), Calf discomfort and Uncontrolled pain Meaningful Use Info Meaningful Use Diagnoses (Choose all that apply): None applicable Discharge Plan Admission Admit Date/Time: 10/18/21 11:48 Primary Reason for Your Visit: TIA Attending Provider: Khoa Connre Primary Care Provider: Brandon Cantor Instructions Additional Instructions / Restrictions: Outpatient speech therapy. Discharge Orders/Prescriptions Prescriptions: New aspirin 81 mg Tablet,Chewable 81 mg PO BREAKFAST Qty: 30 RF: 2 clopidogrel [Plavix] 75 mg tablet 75 mg PO DAILY Qty: 30 RF: 2 Continued carbidopa-levodopa 25-100 mg tablet 25 - 100 tablet PO TID RF: 0 cholecalciferol (vitamin D3) [Vitamin D3] 25 mcg (1,000 unit) Tablet 25 mcg PO DAILY RF: 0 potassium chloride 10 mEq capsule, extended release 10 meq PO BID RF: 0 metoprolol tartrate 25 mg tablet 25 mg PO BID RF: 0 paroxetine HCl 20 mg tablet 20 mg PO DAILY RF: 0 tamsulosin 0.4 mg Capsule 0.4 mg PO DAILY@1730 Qty: 30 RF: 1 isosorbide mononitrate 30 mg tablet extended release 24 hr 30 mg PO DAILY RF: 0 acetaminophen 325 mg Tablet 650 mg PO Q6H PRN (Reason: Pain) RF: 0 Changed atorvastatin 20 mg tablet 40 mg PO QHS Qty: 60 RF: 0 Discontinued Aspirin Childrens 81 mg OTHER BID RF: 0 dicyclomine 10 mg capsule 10 mg PO QHS RF: 0 No Action methimazole 5 mg tablet 5 mg PO DAILY Qty: 30 RF: 1 Referrals / Follow Up: Erasto Guzman MD [STAFF PHYSICIAN] - Within 1 Month (TIA, B/L Carotid stenosis) William Jimenes MD [STAFF PHYSICIAN] - Within 1 Month (B/L Carotid stenosis with TIA) Brandon Cantor MD [Primary Care Provider] - Disposition Disposition (needs filled in before D/C Order can be placed): Home, Self Care
[2021-10-19] MEDS: Aspirin 81 MG TAB.CHEW PO (10:56)
[2021-10-19] MEDS: Paroxetine 20 MG Tablet PO (10:57)
[2021-10-19] MEDS: Potassium Chloride Oral Tablet 20 MEQ PO (10:57)
[2021-10-19] MEDS: Isosorbide Mononitrate 30 MG Tablet PO (10:58)
[2021-10-19] MEDS: Metoprolol Tartrate 25 MG Tablet PO (10:58)
== END 2021-10-19 10:50 | disposition home or self-care (01) ==
LOC: ED 11:54 → PCU 12:06
PROVIDERS: Admitting Provider Internal Medicine; Emergency Provider Emergency Medicine; PCP Internal Medicine; Visit Provider Internal Medicine
DX: G45.9 Transient cerebral ischemic attack, unspecified (principal); Z86.711 Personal history of pulmonary embolism; R00.1 Bradycardia, unspecified; F41.9 Anxiety disorder, unspecified; E05.90 Thyrotoxicosis, unspecified without thyrotoxic crisis or storm; R47.01 Aphasia; R47.9 Unspecified speech disturbances; Z87.891 Personal history of nicotine dependence; E78.5 Hyperlipidemia, unspecified; I10 Essential (primary) hypertension; Z86.718 Personal history of other venous thrombosis and embolism; F32.A Depression, unspecified; Z79.899 Other long term (current) drug therapy; M19.90 Unspecified osteoarthritis, unspecified site; N40.0 Benign prostatic hyperplasia without lower urinary tract symptoms; R29.703 NIHSS score 3
CPT/HCPCS: 36415; 70450; 70496; 70498; 70551; 71045; 80048; 80061; 82962; 83036; 83735; 84443; 84484; 85025; 85610; 85730; 92523; 92610; 93005; 93306; 94762; 96361; 96374; 97162; 97166; 99218; 99285; J2997; J7030; Q9967; A4216; G0378

== ENCOUNTER 2021-10-28 10:03 | Outpatient (RCR) | payer MEDICARE, SELFPAY ==
--- NOTE | 2021-10-29 09:25 | HP.SP.EVAL ---
History - History Date of Eval: 10/28/21 Medical Diagnosis (from RX): TIA Date of Onset of Diagnosis: 10/18/21 Previous speech therapy: Yes Results: Evaluation during hospital admission on 10/19/21 was remarkable for: Verbal Expression: DDK rate impaired. Repeated /p^/ for 5 seconds - 19X, repeated /t^/ for 5 seconds - 17X, repeated /k^/ for 5 seconds - 16X, repeated /p^t^k^/ for 5 seconds - 0X. The patient appeared to have mild groping in conversation articulating words 4X during evaluation. His speech has adequate intensity and appropriate rate. Generative naming task for concrete category - 16 items in 1 minute with 3 perseverations, abstract category - 5 items in 1 minute. 2 moments of anomia observed in conversation during the evaluation. Memory: The patient is a good historian. He recalled events that led to his hospitalization, as well as tests completed during hospitalization. Social interaction: The patient had appropriate responses in conversation, initiated conversation, demonstrated good turn-taking and topic maintenance skills. 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 The patient reports increased difficulty with speech production and word retrieval with gradual onset in the past few years. He reports concern for stuttering at times. Will recommend the patient for continued speech therapy to learn compensatory strategies for speech clarity and word retrieval, as well as learn oral motor and speech agility exercises. Will recommend him for OP speech therapy services. Other Relevant Medical History/Diagnoses/Surgery: MARTA OLIVIA is a 76 year old man who presents to [facility] for a speech therapy evaluation on 10/28/21 s/p TIA on 10/18/21. 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 Pt attending session alone and served as historian. Pt with functional recall of events leading up to TIA and thereafter. Pt reporting mild difficulties with word finding which has been going on for a couple of years now. Smoking Status: Former smoker Hx Smoking: Yes - QUIT 1998 Hx Smoking Cessation Date: 07/04/98 Hx Tobacco Use: No - Pain Is pain an issue with your current prescribed condition?: No Patient Allergies - Allergies Allergies No Known Allergies Allergy (Verified 10/18/21 11:09) (QAB) - Quick Aphasia Battery - QAB QAB Administered: Yes Score: The Quick Aphasia Battery (QAB) is a multidimensional assessment that utilizes eight subtests that explore a variety of language domains, complexity levels, and quantifies strengths/weaknesses in those core language skills. The assessment describes language deficits characteristic of receptive and expressive aphasias. The test assesses the patient's skills in verbal expression, repetition, auditory comprehension, and fluency. The severity rating for the QAB is as follows: 0.00-4.99 Severe; 5.00-7.49 Moderate; 7.50-8.89 Mild; 8.90-10.00 WNL. Date: 10/28/21 - Word comprehension Score: 10.00 - Sentence comprehension Score: 9.58 - Word finding Score: 9.00 - Grammatical construction Score: 9.88 - Speech motor programming Score: 10.00 - Repetition Score: 10.00 - Reading Score: 9.58 - QAB Overall Score Score: 9.68 Objective Dysarthira/Motor - Speech Intelligibility Phonemes: Mild Single Words: WNL Phrases: WNL Sentences: WNL Paragraphs: WNL Conversation: WNL - Volume Volume: WFL - Sounds Sounds in Error: no overt signs of phonemic difficulties evidenced by conversation and paragraph reading task. Pt with sufficient fluency of p^ , t^, and k^ individually however demonstrated difficulty with p^t^k^ [facility]. Pt benefiting from slowing rate of speech and was able to produce with > than 85% acc. - Observation Observation of Apraxia of Speech: No Oral Groping for Placement: - Some shaking of bottom lip observed intermittently during word finding Inconsistent Errors: No - Awareness/Strategy Use Uses strategies intermittently to improve intelligibility or listener's understanding of message: Yes NQOL Plan - Plan Plan: Will recommend Pt for weekly outpatient speech therapy intervention address mild expressive aphasia. Pt would benefit from repeated practice, circumlocution training, Semantic Feature Analysis Training, and immediate feedback to improve articulation and coordination. Without skilled intervention Pt is at risk for difficulty communicating basic, medical, emergent, social wants & needs, and interacting with family/friends at home, during social interactions, and at work. - Recommendations Treatment Warranted: Yes Treatment Warranted: Receptive/ Expressive Language Comment: Mild Aphasia/Anomia - Progress Prognosis: Excellent - Frequency Frequency: 1x/Week Additional (Frequency): 30 minutes Duration: 6 Weeks - Goal #1-5 Goal #1: Marta will independently demonstrate use of word finding strategies in conversation to improve efficiency of word finding in 3 out of 4 word finding occurrences across 2 measured opportunities. Goal #2: Marta will complete basic to mod complex confrontation, convergent, and divergent naming tasks with 90% acc independently across 2 measured opportunities to improve word retrieval. Education - Patient has Indicated that the Following Identified Educational Needs: None The Patient has indicated that they have no educational or learning abilities that may effect their care.: Yes - Patient Instruction Patient Education: Diagnosis, Treatment Plan, Goals, Home Exercise Program Other Education: Direct education provided re: 10 aphasia word finding strategies along with handout and specific examples. Plan to discuss semantic feature analysis in future sessions given Pt complaint of cont'd word finding deficits. Also discuss speech intelligibility strategies (SOS: slow down, over articulate, and speak louder) with handout and examples provided. Person Taught: Patient Teaching Method: Discussion, Demonstration, Handout Response to teaching: Return demonstration, Verbalize understanding
--- NOTE | 2021-12-14 11:08 | HP.SP.DC ---
ST Discharge Summary - Discharged: Discharge: MARTA OLIVIA is a 76-year-old male who was seen for initial speech/language/cognitive evaluation at [facility] on 10/28/21 secondary to dx of aphasia. Pt attended 0 additional sessions after initial evaluation. Therapy goals were created to target use of word finding strategies, which a handout was provided at the time of evaluation. Pt being discharged from speech therapy caseload on this date, 12/14/21, secondary to additional therapy sessions not being scheduled after evaluation. Thank you for allowing me to participate the care of your Pt. Will reevaluate at Pt?s request following script from physician.
== END 2021-10-28 19:00 | disposition home or self-care (01) ==
LOC: SP 10:03
PROVIDERS: PCP Internal Medicine; Referring Provider Internal Medicine; Visit Provider Internal Medicine
DX: I69.320 Aphasia following cerebral infarction (principal)
CPT/HCPCS: 92523; 96105

== ENCOUNTER 2021-11-14 07:02 | Emergency (ER) | payer MEDICARE, SELFPAY ==
[2021-11-14 07:03] VITALS: BP 170/81; PULSE 79; RESP 16; TEMP 36.4; O2SAT 92; BMI 24.9
[2021-11-14 07:06] VITALS: BP 170/81; PULSE 79; RESP 16; TEMP 36.4; O2SAT 94
--- NOTE | 2021-11-14 07:16 | EKG12_ITS ---
Test Reason : Blood Pressure : / mmHG Vent. Rate : 066 BPM Atrial Rate : 066 BPM P-R Int : 188 ms QRS Dur : 094 ms QT Int : 408 ms P-R-T Axes : 037 004 034 degrees QTc Int : 427 ms Normal sinus rhythm Normal ECG Confirmed by NEERAJ DIMAS, DEAN ([id number]), film and video editor JESE MENDOZA ([id number]) on 11/15/2021 10:54:01 AM Referred By: Confirmed By:DEAN PICKARD MD
--- NOTE | 2021-11-14 07:21 | EDS_ITS ---
HPI HPI - GI History of Present Illness Chief Complaint: Diarrhea Detail of Chief Complaint: Profuse watery diarrhea Informant: patient and spouse/S.O. Abdominal Pain/Flank Pain Onset: Today (199) Context: Sudden Onset Timing: Intermittent Quality: Cramping Location: Diffuse Current Severity: Mild Maximum Severity: Moderate Worsened by: - (Diarrhea) Relieved by: Nothing Nausea/Vomiting/Emesis GI Symptom: Negative for Nausea and Vomiting Diarrhea/Melena/Hematochezia GI Symptom: Positive for Diarrhea; Negative for Melena and Hematochezia Onset: Today Stool Quality: Positive for Loose and Watery Severity: Severe Episodes: 15 Associated Symptoms Associated Symptoms: Negative for Dysuria, Frequency, Hematuria and Urgency Narrative Prior similar symptoms: Yes (August 2001 diagnosed with pseudomembranous enterocolitis) Recent Illness/Hospitalization: No PFSH PFSH Medical History Acute respiratory failure with hypoxia Anxiety Anxiety Anxiety Arthritis Arthritis Back pain BPH (benign prostatic hyperplasia) Cancer Cardiology follow-up encounter Change in bowel habit Chronic respiratory failure with hypoxia Closed right hip fracture Depression Depression Diarrhea Difficulty swallowing Expressive aphasia Fall Former smoker Heartburn History of echocardiogram History of edema History of pain when walking Hypercholesterolemia Hyperlipidemia Hypertension Hypertension Hyperthyroidism Hypothyroidism Leg cramps Osteoarthritis Osteoporosis Polycythemia Prostate disease Pulmonary embolism Pulmonary embolism Shortness of breath on exertion Skin cancer Syncope Wears dentures Wears glasses Home Medications metoprolol tartrate 25 mg PO BID 04/15/21 [History Last Taken 10/18/21 09:00] potassium chloride 10 meq PO BID 04/15/21 [History Last Taken 10/18/21 09:00] cholecalciferol (vitamin D3) [Vitamin D3] 25 mcg PO DAILY 07/07/21 [History Last Taken 10/18/21 09:00] paroxetine HCl 20 mg PO DAILY 07/23/21 [History Last Taken 07/23/21] acetaminophen 650 mg PO Q6H PRN 10/18/21 [History Last Taken Unknown] carbidopa 25 mg-levodopa 100 mg tablet 25 - 100 tablet PO TID 10/18/21 [History Last Taken 10/18/21 07:30] isosorbide mononitrate 30 mg PO DAILY 10/18/21 [History Last Taken 10/18/21 09:00] aspirin 81 mg PO BREAKFAST #30 tab 10/19/21 [Rx Last Taken Unknown] atorvastatin 40 mg PO QHS #60 tab 10/19/21 [Rx Last Taken Unknown] clopidogrel [Plavix] 75 mg PO DAILY #30 tab 10/19/21 [Rx Last Taken Unknown] methimazole 5 mg tablet 5 mg PO DAILY #30 tab 10/19/21 [Rx Last Taken Unknown] Allergy/AdvReac Type Severity Reaction Status Date / Time No Known Allergies Allergy Verified 11/14/21 07:06 Family History Father Lung cancer Mother Parkinsons Heart failure Surgical History H/O colonoscopy History of cardiac catheterization History of colon surgery History of rhinoplasty History of total knee replacement (TKR) History of total right hip replacement History of transurethral resection of prostate reattachment of severed finger stoma reversal Social History household members: spouse housing: house 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al status: employed 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: [employer] pets and animals: Yes pets and animals: cat(s) and dog(s) Smoking Status: Former smoker quit date: 06/05/98 pack-years: 72 second hand exposure: No alcohol intake: never substance use type: does not use ROS ROS ED Constitutional Constitutional ED: Denies chills, fever(s), subjective, sweats or weight loss ENT ENT ED: Reports other Details: Dry mouth and thirst ; Denies ear pain, rhinorrhea or sore throat Cardiovascular Cardiovascular: Reports other Details: Orthostatic symptoms upon rising quickly ; Denies chest pain or palpitations Respiratory/Chest Respiratory/Chest: Denies cough, dyspnea or dyspnea on exertion Gastrointestinal Gastrointestinal: Reports abdominal pain and diarrhea; Denies constipation, melena, nausea or vomiting Genitourinary Genitourinary ED: Reports other Details: Patient denies decreased urine output or darker colored urine. ; Denies dysuria, hematuria or urinary frequency Musculoskeletal Musculoskeletal: Denies arthralgias, back pain, myalgias or neck pain Integumentary Denies rash Neurologic Neurologic: Reports weakness; Denies headache(s) or paresthesias Endocrine Endocrinology: Denies polydipsia, polyphagia or polyuria Hematologic/Lymphatic Hematologic/Lymphatic: Reports easy bruising EXAM Physical Exam Const Vital Signs: 11/14/21 07:03 11/14/21 07:06 11/14/21 10:42 Temperature 97.6 F L 97.6 F L Temperature Source Temporal Temporal Pulse Rate 79 79 62 Respiratory Rate 16 16 14 Blood Pressure 170/81 H 170/81 H 180/68 H Blood Pressure Mean 110 110 105 Pulse Ox 92 94 95 Oxygen Delivery Method Room Air Room Air Room Air Positive well nourished and well developed General Appearance ED: well developed, pallor and other Patient looks fatigued and is dry mouth. ; Negative for NAD HEENT Reports dry mucous membranes HEENT Narrative: Ears are normal. Nares patent. Uvula midline. There is no erythema or exudate. normocephalic and atraumatic Mouth ED: Yes dry mucous membranes Mouth: dry mucous membranes Eyes PERRL and EOMs intact bilaterally General Eye ED: Negative for pale conjunctiva or scleral icterus Neck no lymphadenopathy, supple and no JVD Resp normal respiratory effort and clear to auscultation bilaterally Cardio regular rate, regular rhythm, S1 normal heart sound, S2 normal heart sound and no murmurs GI non-tender, non-distended and no masses Auscultation: hyperactive bowel sounds Palpation: soft; Negative for hepatomegaly, splenomegaly or mass Back/Spine no CVA tenderness Cervical Spine: Negative for cervical spine tenderness Thoracic Spine / Upper Back: Negative for thoracic spinal tenderness Lumbar Spine / Lower Back: Negative for lumbar spinal tenderness Extremity full ROM General Extremety ED: Negative for edema or tenderness General Extremity: Negative for edema Neuro CN's II-XII intact bilaterally and moves all extremities Sensorium / Orientation: alert, oriented to person, oriented to place and oriented to time Psych mental status grossly normal and thought process normal Skin no wounds General Skin Exam: pallor; Negative for jaundice Lesions: no lesions Rashes: no rashes MDM MDM MDM Narrative Medical decision making narrative: With profuse watery diarrhea no nausea and vomiting and history of pseudomembranous enterocolitis suspect patient has pseudomembranous enterocolitis versus other infectious causes of diarrhea. Appropriate baseline blood work was obtained to assess for anemia, white count, renal function, electrolytes and specifically hypokalemia. Stool for C. difficile was ordered as well as precautions. Patient was reassessed at 1056. He is sitting up dressed ready to go. Plan is to discharge to home. Lab Data Attestation: I reviewed the patient's lab results. Lab results narrative: CBC is unremarkable. Lactate is unremarkable. Comprehensive metabolic panel is unremarkable. Patient was made aware of his laboratory blood results. He was informed that the stool specimen may take 1 to 3 hours to be resulted. He has had 3 loose watery stools since arrival. He was informed of this at 0914 Labs: Laboratory Results - last 24 hr 11/14/21 11/14/21 11/14/21 07:30 07:30 07:30 WBC 6.4 RBC 5.40 Hgb 15.8 Hct 47.8 MCV 88.5 MCH 29.3 MCHC 33.1 RDW Std Deviation 45.0 H RDW Coeff of Daisy 14.1 Plt Count 102 L MPV 12.2 H Immature Gran % (Auto) 0.300 Neut % (Auto) 71.6 H Lymph % (Auto) 14.8 L [place] % (Auto) 10.8 H Eos % (Auto) 1.9 Baso % (Auto) 0.6 Absolute Neuts (auto) 4.6 Absolute Lymphs (auto) 0.95 Nucleated RBC % 0 Sodium 140 Potassium 4.1 Chloride 109 H Carbon Dioxide 27.0 Anion Gap 4 L BUN 17 Creatinine 0.85 Estim Creat Clear Calc 76.34 Est GFR (MDRD) Af Amer 112 Est GFR (MDRD) Non-Af 93 BUN/Creatinine Ratio 19.9 Glucose 97 Lactic Acid 1.0 Calcium 9.6 Total Bilirubin 0.60 AST 14 L ALT 17 Alkaline Phosphatase 111 Total Protein 7.3 Albumin 3.7 Globulin 3.6 Albumin/Globulin Ratio 1.0 EKG Initial EKG: Attestation: I personally reviewed and interpreted this EKG as follows: Interpretation: Sinus Rhythm (Sinus rhythm with a rate of 66. EKG is normal. NC interval is 108 m milliseconds. Cures duration 94 ms. QT duration 408 ms. [place] is normal.) Discharge Plan Triage Chief Complaint: Diarrhea ED Provider: Akin Fox Dx/Rx/DC Orders Clinical Impression: Diarrhea, Hypertension, Dehydration, mild Instructions: ED Dehydration (Adult), ED Diarrhea, Unknown Cause Prescriptions: No Action carbidopa-levodopa 25-100 mg tablet 25 - 100 tablet PO TID RF: 0 methimazole 5 mg tablet 5 mg PO DAILY Qty: 30 RF: 1 cholecalciferol (vitamin D3) [Vitamin D3] 25 mcg (1,000 unit) Tablet 25 mcg PO DAILY RF: 0 potassium chloride 10 mEq capsule, extended release 10 meq PO BID RF: 0 metoprolol tartrate 25 mg tablet 25 mg PO BID RF: 0 paroxetine HCl 20 mg tablet 20 mg PO DAILY RF: 0 isosorbide mononitrate 30 mg tablet extended release 24 hr 30 mg PO DAILY RF: 0 acetaminophen 325 mg Tablet 650 mg PO Q6H PRN (Reason: Pain) RF: 0 aspirin 81 mg Tablet,Chewable 81 mg PO BREAKFAST Qty: 30 RF: 2 clopidogrel [Plavix] 75 mg tablet 75 mg PO DAILY Qty: 30 RF: 2 atorvastatin 20 mg tablet 40 mg PO QHS Qty: 60 RF: 0 Primary Care Provider: Brandon Cantor Referrals: Brandon Cantor MD [Primary Care Provider] - 1-2 Days if not improving Activity Restrictions/Additional Instructions: 1. Take 1 Imodium after each loose stool up to 6 in 1 day / 24-hour. 2. Drink as much fluid as possible. 3. Advance diet as tolerated. Disposition Disposition: Home, Self Care
[2021-11-14] MEDS: 0.9% Normal Saline 1,000 ML 1000 ML IV (07:33)
[2021-11-14 07:39] LABS: Absolute Lymphocyte Count 0.95 X10^3/uL (0.83-4.51); Absolute Neutrophil Count 4.6 X10^3/uL (2.0-7.7); Basophil# 0.04 X10^3/uL; Basophil% 0.6 % (0-1); Eosinophil# 0.12 X10^3/uL; Eosinophils% 1.9 % (0-5); Hematocrit 47.8 % (40-54); Hemoglobin 15.8 g/dL (13.0-16.5); Lymphocyte # 0.95 X10^3/ul (0.83-4.51); Lymphocyte % 14.8 % (19-41); Mean Corp Hgb Conc 33.1 g/dL (32-36); Mean Corpuscular Hgb 29.3 pg (27.0-32.0); Mean Corpuscular Volume 88.5 fL (80-94); Mean Platelet Vol. 12.2 fl (6.2-12.0); Monocyte# 0.69 X10^3/uL; Monocyte% 10.8 % (0-10); NRBC Flagged by Analyzer 0 % (0-5); Neutrophil # 4.58 X10^3/uL (2.7-7.7); Neutrophil % 71.6 % (47-70); Platelet Count 102 K/mm3 (150-450); RBC Distribution Width CV 14.1 % (11.6-14.6); White Blood Count 6.4 K/mm3 (4.4-11.0)
[2021-11-14 07:56] LABS: AST(SGOT) 14 U/L (15-37); Alanine Aminotransfer ALT/SGPT 17 U/L (16-61); Albumin, Serum 3.7 g/dL (3.2-5.0); Alkaline Phosphatase 111 U/L (45-117); Anion Gap 4 (5-15); BUN 17 mg/dL (7-18); BUN/Creat Ratio 19.9 RATIO (10-20); Calcium,Total 9.6 mg/dL (8.5-10.1); Chloride 109 mmol/L (98-107); Creatinine, Serum 0.85 mg/dL (0.70-1.30); EST Glomerular Filtration Rate 93 mL/min (>60); Est Glom Filt Rate - Afr Amer 112 mL/min (>60); Estimated Creatinine Clearance 76.34 ml/min; Globulin 3.6 g/dL (2.2-4.2); Glucose 97 mg/dL (74-106); Potassium 4.1 mmol/L (3.5-5.1); Protein, Total 7.3 g/dL (6.4-8.2); Sodium Level 140 mmol/L (136-145)
[2021-11-14] MEDS: Loperamide 2 MG Capsule 4 MG PO (10:39)
[2021-11-14 10:42] VITALS: BP 180/68; PULSE 62; RESP 14; O2SAT 95
== END 2021-11-14 11:03 | disposition home or self-care (01) ==
PROVIDERS: Emergency Provider Emergency Medicine; PCP Internal Medicine; Visit Provider Emergency Medicine
DX: R19.7 Diarrhea, unspecified (principal); I10 Essential (primary) hypertension; E86.0 Dehydration; E78.00 Pure hypercholesterolemia, unspecified; Z86.711 Personal history of pulmonary embolism; Z79.82 Long term (current) use of aspirin; Z79.899 Other long term (current) drug therapy; Z87.891 Personal history of nicotine dependence
CPT/HCPCS: 80053; 83605; 85025; 87493; 93005; 96360; 96376; 99284; J7030

== ENCOUNTER → 2021-11-15 | Outpatient (CLI) | payer MEDICARE, SELFPAY ==
[2021-11-15 15:55] LABS: Free T3 3.2 pg/mL (2.18-3.98); T4 Free Direct 1.27 ng/dL (0.76-1.46); Thyroid Stim Hormone (TSH) < 0.01 uIU/mL (0.358-3.74)
== END | disposition home or self-care (01) ==
PROVIDERS: PCP Internal Medicine; Referring Provider Internal Medicine Endocrinology, Diabetes & Metabolism; Visit Provider Internal Medicine Endocrinology, Diabetes & Metabolism
DX: E05.90 Thyrotoxicosis, unspecified without thyrotoxic crisis or storm (principal)
CPT/HCPCS: 36415; 84439; 84443; 84481

== ENCOUNTER → 2022-01-03 | Outpatient (CLI) | payer MEDICARE, SELFPAY ==
[2022-01-03 10:42] LABS: Free T3 2.4 pg/mL (2.18-3.98); T4 Free Direct 0.91 ng/dL (0.76-1.46); Thyroid Stim Hormone (TSH) 0.39 uIU/mL (0.358-3.74)
== END | disposition home or self-care (01) ==
LOC: LAB 09:21
PROVIDERS: PCP Internal Medicine; Visit Provider Internal Medicine Endocrinology, Diabetes & Metabolism
DX: E05.90 Thyrotoxicosis, unspecified without thyrotoxic crisis or storm (principal); I10 Essential (primary) hypertension
CPT/HCPCS: 36415; 84439; 84443; 84481

== ENCOUNTER → 2022-01-06 | Outpatient (CLI) | payer MEDICARE, SELFPAY ==
--- NOTE | 2022-01-06 17:46 | CT_ITS ---
STUDY: CT Abdomen And Pelvis W/ Contrast Injection 01/06/2022 6:24 PM REASON FOR EXAM: Male, 76 years old. Abdominal pain KIDNEY CA Individualized dose optimization techniques were used for this CT. COMPARISON: CT 01/12/2018. TECHNIQUE: CT Abdomen And Pelvis W/ Contrast Injection IV 100mL Isovue-300 FINDINGS: There are atherosclerotic calcifications of visualized coronary arteries. The visualized portions of the heart are within normal limits. There are multiple hypodensities of the liver. There are multiple gallstones. Normal spleen. Normal pancreas. Normal bilateral adrenal glands. There are hypodensities in the right kidney. These are consistent for cysts. No follow up required. There are hypodensities in the left kidney. These are consistent for cysts. No follow up required. 11 millimeter hyperdense nodule in the lateral right kidney. This is 34 HOUNSFIELD units. Series 2 image 47. ACR White Paper guidelines (Herts, et al. JACR 2018; 15(2):264-273) recommend MRI or CT without and with intravenous contrast. 47 x 29 mm heterogeneously enhancing mass in the inferior left kidney. This is consistent with patient''s known history of renal cell cancer. ACR White Paper guidelines (Herts, et al. JACR 2018; 15(2):264-273) recommend referral for management if a referral has not already been performed. Normal visualized stomach. Evidence for prior small bowel surgery. Stool throughout the colon. The appendix is visualized and appears normal. Rectosigmoid anastomosis. There are calcifications of the abdominal aorta. This is consistent for atherosclerotic disease. There is NO abdominal aortic aneurysm. Vascular workup can be obtained based on clinical correlation. Normal inferior vena cava. Subcentimeter mesenteric lymph nodes. Right-sided urinary bladder diverticulum. Defect in the midline prostate gland suggesting a prior TURP. Normal abdominal wall. There are diffuse degenerative changes of the visualized lumbar spine. Total right hip arthroplasty. CT/Abdomen/Pelvis WITH Contrast IMPRESSION: (NOT LISTED IN ORDER OF SIGNIFICANCE) 47 x 29 mm heterogeneously enhancing mass in the inferior left kidney. This is consistent with patient''s known history of renal cell cancer. ACR White Paper guidelines (Herts, et al. JACR 2018; 15(2):264-273) recommend referral for management if a referral has not already been performed. 11 millimeter hyperdense nodule in the lateral right kidney. This is 34 HOUNSFIELD units. Series 2 image 47. ACR White Paper guidelines (Herts, et al. JACR 2018; 15(2):264-273) recommend MRI or CT without and with intravenous contrast. With regard to the findings above, there are hypodensities in the liver which makes metastatic disease difficult to exclude. There are multiple gallstones. Other findings as above. Electronically Signed: Eliezer Atkinson MD at 18:29 EDT ,
[2022-01-06 18:16] LABS: CREATININE FINGERSTICK < 0.9 mg/dL (0.70-1.30); EGFR FINGERSTICK > 60.0000 mL/min (>60)
== END | disposition home or self-care (01) ==
LOC: CT 17:44
PROVIDERS: PCP Internal Medicine; Visit Provider Urology
DX: D41.02 Neoplasm of uncertain behavior of left kidney (principal)
CPT/HCPCS: 74177; Q9967

== ENCOUNTER → 2022-02-14 | Outpatient (CLI) | payer MEDICARE, SELFPAY ==
[2022-02-14 15:34] LABS: Vitamin B12 427 pg/mL (211-911)
[2022-02-18 14:53] LABS: Vitamin D 1,25-Dihydroxy 35.7 pg/mL (24.8-81.5)
[2022-02-18 15:08] LABS: Free Kappa Light Chains 28.2 mg/L (3.3-19.4); Free Lambda Light Chains 15.3 mg/L (5.7-26.3)
[2022-02-19 07:10] LABS: Vitamin B1, Thiamine 131.9 nmol/L (66.5-200.0)
== END | disposition home or self-care (01) ==
LOC: MTLAB 11:56
PROVIDERS: PCP Internal Medicine; Referring Provider Psychiatry & Neurology Neurology; Visit Provider Psychiatry & Neurology Neurology
DX: G62.9 Polyneuropathy, unspecified (principal); E55.9 Vitamin D deficiency, unspecified
CPT/HCPCS: 36415; 82607; 82652; 82746; 83883; 84425

== ENCOUNTER 2022-02-16 11:51 | Inpatient (IN) | payer MEDICARE, SELFPAY ==
[2022-02-08 12:44] LABS: Hematocrit 46.3 % (40-54); Hemoglobin 15.1 g/dL (13.0-16.5); Mean Corp Hgb Conc 32.6 g/dL (32-36); Mean Corpuscular Hgb 29.8 pg (27.0-32.0); Mean Corpuscular Volume 91.5 fL (80-94); Mean Platelet Vol. 12.3 fl (6.2-12.0); Platelet Count 173 K/mm3 (150-450); RBC Distribution Width CV 15.8 % (11.6-14.6); RBC Distribution Width SD 52.8 fl (35.1-43.9); Red Blood Count 5.06 M/mm3 (4.6-6.2); White Blood Count 5.8 K/mm3 (4.4-11.0)
[2022-02-08 12:56] LABS: International Normalized Ratio 1.2; Prothrombin Time (Protime)PT. 14.5 SECONDS (11.7-14.9)
[2022-02-08 12:57] LABS: Partial Thromboplast Time 31.7 Seconds (24.1-36.2)
[2022-02-08 13:11] LABS: AST(SGOT) 12 U/L (15-37); Alanine Aminotransfer ALT/SGPT 9 U/L (16-61); Albumin, Serum 3.4 g/dL (3.2-5.0); Alkaline Phosphatase 107 U/L (45-117); Anion Gap 5 (5-15); BUN 15 mg/dL (7-18); BUN/Creat Ratio 15.6 RATIO (10-20); Bilirubin, Direct 0.19 mg/dL (0.00-0.30); Calcium,Total 9.5 mg/dL (8.5-10.1); Chloride 108 mmol/L (98-107); Creatinine, Serum 0.96 mg/dL (0.70-1.30); EST Glomerular Filtration Rate 80 mL/min (>60); Est Glom Filt Rate - Afr Amer 97 mL/min (>60); Globulin 3.4 g/dL (2.2-4.2); Glucose 90 mg/dL (74-106); Potassium 3.9 mmol/L (3.5-5.1); Protein, Total 6.8 g/dL (6.4-8.2); Sodium Level 144 mmol/L (136-145); Thyroid Stim Hormone (TSH) 1.02 uIU/mL (0.358-3.74)
[2022-02-08 13:13] LABS: Free T3 2.3 pg/mL (2.18-3.98)
[2022-02-16] VITALS (17 sets, daily range): BP systolic 128–175; BP diastolic 56–74; PULSE 65–83; RESP 14–18; TEMP 36.5–37.4; O2SAT 91–95; BMI 25.6
--- NOTE | 2022-02-16 | KID_PTH ---
PATIENT: MARTA OLIVIA LOC: MS3 U#:[id number] AGE/SX: 76/M ROOM: [facility] [place] RE02/16/[address]: Dr. Gio Connolly MD : 1945 BED: 1 DIS: 02/24/2022 SPEC #: [id number] RECD: 02/16/22 12:50 STATUS: RAY RAMESHPeg #: [id number] BRITTNEY: 02/16/22 00:[address]: Gio Connolly DEPT: SURGICAL PATHOLOGY RECD BY: Juan C Fajardo ENTERED: 02/16/22 12:50 SP TYPE: KIDNEY OTHR DR: Dr. 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 See cancer synoptic report below. AM:ra 02/18/2022 COMMENT KIDNEY CANCER SUMMARY Procedure ? radical nephrectomy Specimen laterality ? left kidney Tumor size ? 3.5 x 3 x 2 cm Histologic type ? clear cell renal cell carcinoma Sarcomatoid features ? not identified Rhabdoid features ? not identified Histologic grade - grade 3 (WHO/ISUP grade/Darshana grade) Tumor necrosis ? not present Tumor extension ? tumor confined to kidney. Margins ? uninvolved by invasive carcinoma. Lymphvascular invasion ? not identified Regional lymph nodes ? no lymph nodes found. Non-neoplastic kidney ? mild arterionephrosclerosis and focal chronic inflammation. Other findings ? benign cysts PATHOLOGIC STAGE: T1a Nx Mx The above summary is in compliance with [employer] (CAP) Cancer Protocols Checklist and [place] Joint Committee on Cancer (AJCC), Staging Manual, 8th Ed. Case has been reviewed in consultation with Dr. Baxter who concurs with the above diagnosis. IDC:SJ MICROSCOPIC DESCRIPTION Slides are reviewed. GROSS DESCRIPTION Received in fixative is one container labeled with the patient's name and designated left kidney. The specimen consists of a left kidney containing a mass and is surrounded by an irregular envelope of fibroadipose tissue. Neoplasm does not extend into perirenal fat adipose tissue, which measures up to 3?cm in thickness and it is not present at the soft tissue line of the specimen. The specimen weighs 504?gm and measures 15 x 12 x 6 cm. The mass involves the lower portion of the kidney. Dissection of the renal veins, particularly those draining the area of the mass does not show the intravascular presence of neoplasm. On section, the tumor measures 3.5 x 3 x 2 cm. It is composed of yellowish-orange tissue with focal area of hemorrhage. The tumor does not invade into the pelvicalyceal system and renal sinus. The tumor is sharply demarcated from the renal parenchyma. Satellite nodules of tumor are not present in the renal tissue. Sections of rest of the kidney show multiple cysts with smooth lining measuring 0.5 to 4 cm in greatest dimension. The largest cyst is present in the superior pole of the kidney. The adrenal gland is not present. A 2.5 cm segment of ureter is present and is essentially unremarkable. No lymph nodes are identified in the renal sinus and perirenal adipose tissue. Lien Searcher sections are submitted in 11 cassettes as follows: 1 - ureteric and vascular resection margins, 2??perirenal adipose tissue with inked margin and additional sections of the perirenal adipose tissue, 3 & 4 - tumor with adjacent perirenal adipose tissue, 5 - tumor with adjacent renal parenchymal tissue, 6 - tumor with adjacent vein, 7 - uninvolved kidney, 8 - largest cyst, 9 & 10 - smaller cysts, 11 - renal sinus, ureter and renal sinus adipose tissue. / SJ:ra 02/17/2022 TC:0 CPT: 67987
[2022-02-16] MEDS: Lactated Ringers 1,000 ML 15 ML IV ×3 (06:58→10:01)
[2022-02-16] MEDS: Cefazolin 2 GM in 0.9% Normal Saline 100 ML IV (08:08)
--- NOTE | 2022-02-16 08:30 | HP.PCM_ITS ---
[facility] - General General Date of Service: 02/16/22 Chief Complaint: Left renal mass HPI Narrative MARTA OLIVIA, is a 76 M who presents for a laparoscopic robotic assisted left partial nephrectomy. I spoke to the patient regarding the surgery today retighten the risks of the surgery include bleeding infection formation of blood clots pulmonary embolism cardiac complications and lung pulmonary complications. After reviewing the tumor with the patient and speaking with the family he has agreed and signed the consent form to proceed with a left laparoscopic robotic assisted partial nephrectomy. He understood it is possible that we may have to do the total left nephrectomy. [facility] Medical History Abnormal weight loss Acute respiratory failure with hypoxia Ambulates with cane Anxiety Arthritis Arthritis Back pain BPH (benign prostatic hyperplasia) Cancer Cardiology follow-up encounter Change in bowel habit Chronic diarrhea Chronic respiratory failure with hypoxia Closed right hip fracture Depression Diarrhea Difficulty swallowing Excessive bleeding Expressive aphasia Fall Former smoker Heartburn History of Clostridium difficile infection History of echocardiogram History of pain when walking Hypercholesterolemia Hyperlipidemia Hypertension Hyperthyroidism Hypothyroidism IBS (irritable bowel syndrome) Leg cramps Melanoma in situ of unspecified part of face Osteoarthritis Osteoporosis Parkinsons disease Polycythemia Prostate disease Pulmonary embolism Shortness of breath on exertion Skin cancer Syncope Thyrotoxicosis Wears dentures Wears glasses Home Medications metoprolol tartrate 25 mg tablet 25 mg PO BID heart 04/15/21 [History Last Taken 02/16/22] potassium chloride 10 mEq capsule,extended release 10 meq PO BID supplement 04/15/21 [History Last Taken 02/15/22] cholecalciferol (vitamin D3) 25 mcg (1,000 unit) tablet (Vitamin D3) 25 mcg PO DAILY health maintenance 07/07/21 [History Last Taken 02/15/22] acetaminophen 325 mg tablet 650 mg PO Q6H PRN Pain 10/18/21 [History Last Taken 02/15/22] carbidopa 25 mg-levodopa 100 mg tablet 25 - 100 tablet PO TID parkinson's 10/18/21 [History Last Taken 02/16/22] isosorbide mononitrate 30 mg tablet,extended release 24 hr 30 mg PO DAILY heart 10/18/21 [History Last Taken 02/16/22] lorazepam 1 mg tablet (Ativan) 1 mg PO DAILY PRN Anxiety 12/01/21 [History Last Taken 02/15/22] paroxetine HCl 20 mg tablet 20 mg PO DAILY DEPRESSION 12/07/21 [History Last Taken 02/15/22] atorvastatin 20 mg tablet 20 mg PO QHS high cholesterol 02/08/22 [History Last Taken 02/15/22] methimazole 5 mg tablet 5 mg PO DAILY thyroid 02/08/22 [History Last Taken 02/15/22] tamsulosin 0.4 mg capsule mg PO QHS urine flow 02/08/22 [History Last Taken 02/15/22] docusate sodium 100 mg capsule (Colace) 100 mg PO BID #14 caps 02/16/22 [Rx Last Taken Unknown] oxycodone-acetaminophen 5 mg-325 mg tablet 1 tab PO Q6H PRN pain 7 days #14 tabs 02/16/22 [Rx Last Taken Unknown] Allergy/AdvReac Type Severity Reaction Status Date / Time No Known Allergies Allergy Verified 02/14/22 09:05 Family History Father Lung cancer Mother Parkinsons Heart failure Surgical History H/O colonoscopy History of cardiac catheterization History of colon surgery History of rhinoplasty History of tonsillectomy History of total knee replacement (TKR) History of total right hip replacement History of transurethral resection of prostate reattachment of severed finger stoma reversal Social History household members: spouse housing: house 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al status: employed 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: [employer] pets and animals: Yes pets and animals: cat(s) and dog(s) Smoking Status: Former smoker quit date: 06/05/98 pack-years: 72 second hand exposure: No alcohol intake: never substance use type: does not use seatbelt use: always ROS Constitutional Constitutional: Denies chills, fever(s) or malaise Eyes Eyes: Denies blurry vision or change in vision ENT HEENT: Reports none Cardiovascular Cardiovascular: Denies chest pain or palpitations Respiratory/Chest Respiratory/Chest: Denies cough or shortness of breath with exertion Gastrointestinal Gastrointestinal: Denies abdominal pain, constipation or diarrhea Musculoskeletal Musculoskeletal: Denies back pain, joint stiffness or joint swelling Integumentary Integumentary: Denies dry skin, jaundice, lesions or rash Neurologic Neurologic: Denies confusion, syncope or weakness Psychiatric Psychiatric: Reports none; Denies anxiety or depression Endocrine Endocrinology: Denies excessive sweating, fatigue or flushing Hematologic/Lymphatic Hematologic/Lymphatic: Denies anemia, easy bleeding or easy bruising Vital Signs Vital Signs Vital Signs: 02/16/22 06:43 02/16/22 06:43 Temperature 99.3 F H Temperature Source Temporal Respiratory Rate 14 Respiratory Pattern Normal Blood Pressure 128/68 H Blood Pressure Mean 88 Blood Pressure Source Monitor Blood Pressure Position Semi-Fowlers Blood Pressure Location Left Arm Pulse Ox 93 Oxygen Delivery Method Room Air Weight Weight: 81 kg Body Mass Index (BMI) 25.6 Physical Exam Const alert and oriented x3 General Appearance: cooperative HEENT normocephalic, head/scalp atraumatic, EAC's normal and TM's normal bilaterally Eyes PERRL and EOMs intact bilaterally Pupil: sluggish Neck no lymphadenopathy, supple and no JVD General: trachea midline Lymph Lymphatic: no lymphadenopathy noted, lymphedema and lymphadenopathy Resp normal respiratory effort, normal air movement and clear to auscultation bilaterally Cardio regular rate, regular rhythm and peripheral pulses 2+ throughout GI soft to palpation, non-tender and non-distended Extremity normal capillary refill and no clubbing, cyanosis or edema General Extremity: no tenderness to palpation of joints or extremities Skin no rashes or lesions noted General Skin Exam: turgor normal Lesions: no lesions Rashes: no rashes Neuro CN's II-XII intact bilaterally Speech: speech normal Motor Exam: strength 5/5 throughout; Negative for general weakness Psych thought process normal, cooperative and affect normal Appearance: appropriate Results Lab / Micro Data Result Diagrams: 02/08/22 12:17 02/08/22 12:17 ct scan Assessment & Plan Assessment/Plan (1) Left renal mass: PLAN: Plan to proceed with left partial nephrectomy
--- NOTE | 2022-02-16 11:55 | DCINST_ITS ---
Discharge Instructions Diet Discharge Diet: No restrictions, Light diet - advance as tolerated and Soft diet Activity Discharge Activity: Return to Normal Activity Follow Up Care Please Follow Up With: Gio Connolly MD When: 2 weeks. Test Results: Test results from this visit will be discussed in further detail at your follow- up appointment, if applicable. Discharge Plan Admission Primary Reason for Your Visit: Left radical nephrectomy Attending Provider: Gio Connolly Primary Care Provider: Brandon Cantor Instructions Patient Instructions: Laparoscopic Nephroureterectomy Discharge Orders/Prescriptions Prescriptions: New oxycodone-acetaminophen 5-325 mg tablet 1 tab PO Q6H PRN (Reason: pain) 7 Days Qty: 14 0RF docusate sodium [Colace] 100 mg capsule 100 mg PO BID Qty: 14 0RF Continued carbidopa-levodopa 25-100 mg tablet 25 - 100 tablet PO TID Rx Instructions: 1/2 tablet week one (10/11) 0730, 1230, 1730 1 tablet week two lorazepam [Ativan] 1 mg tablet 1 mg PO DAILY PRN (Reason: Anxiety) cholecalciferol (vitamin D3) [Vitamin D3] 25 mcg (1,000 unit) Tablet 25 mcg PO DAILY potassium chloride 10 mEq capsule, extended release 10 meq PO BID metoprolol tartrate 25 mg tablet 25 mg PO BID paroxetine HCl 20 mg tablet 20 mg PO DAILY isosorbide mononitrate 30 mg tablet extended release 24 hr 30 mg PO DAILY Label Comments: TAKE 1 TABLET BY MOUTH ONCE DAILY acetaminophen 325 mg Tablet 650 mg PO Q6H PRN (Reason: Pain) tamsulosin 0.4 mg capsule PO QHS Label Comments: TAKE 1 CAPSULE BY MOUTH AT BEDTIME atorvastatin 20 mg tablet 20 mg PO QHS methimazole 5 mg tablet 5 mg PO DAILY Discontinued aspirin 81 mg Tablet,Chewable 81 mg PO BREAKFAST Qty: 30 2RF Referrals / Follow Up: Gio Connolly MD [Med Staff - Active Staff] - Brandon Cantor MD [Primary Care Provider] - Disposition Disposition (needs filled in before D/C Order can be placed): Home, Self Care
--- NOTE | 2022-02-16 11:55 | PCM.OPRPT ---
Report of Operation Date of Procedure: 02/16/22 Pre-Operative Diagnosis: Left renal mass suspicious for cancer Post-Operative Diagnosis: The same Surgery/Procedure Performed:: Laparoscopic robotic assisted left radical nephrectomy Description of Surgical Findings:: Is a 76-year-old male who presents to the hospital in consultation with the patient he does have like a by lobar 3 cm endophytic deep tumor in the lower pole the left kidney we discussed doing a partial nephrectomy in the preoperative area we also discussed having to do a complete nephrectomy if a partial nephrectomy was deemed not feasible. We risk discussed the risk of bleeding infection and the risk of general anesthetic. Patient agreed to proceed with the procedure consent was signed all questions were addressed and I spoke to the family the preoperative area. Patient was taken back to the operating room at a smooth induction of anesthesia he was placed supine on the table we placed a Lima catheter in the bladder we then the position the patient for a lateral approach flank approach to the left side he was up on his left side axillary roll in place both arms were tucked and and there is an holders we have the top arm in a armboard bottle bottom arm armboard as well after making sure he was properly padded and all pressure points were addressed then the abdomen was prepped and draped in the usual sterile fashion. Abdomen the ports were placed and we docked the robot and immediately saw that the patient had prior abdominal surgery fortunately was in the left lower quadrant looks like he had some sort of colostomy takedown or some sort of bowel surgery but because of this it looked like the colon had been mobilized extensively so was extensive amount of scar tissue in the abdomen dense adhesions between the colon and the kidney at the take a lot of time to really dissected the colon off the kidney very carefully to make sure that there was no injury to the colon after this was dissected off Made an incision in the left quadrant upper quadrant introduced a Veress needle into the peritoneal cavity and insufflated cavity with CO2 gas placed by camera trocar left upper left trocar right trocar and the second right trocar and then per diem physical therapist assistant suction air seal port. We once kidney was extremely adhesed a lot of the fat was very sticky to the kidney very dense tissue in the kidney made the dissection extremely difficult. I was able then to get underneath the kidney with the fourth arm elevate the kidney up once I retracted the colon out of the way identify the ureter went underneath the ureter and then slowly start working away towards the hilum and reviewing the CAT scan preoperatively and knew that he had multiple blood vessels early branching blood vessels which can be challenging to get control of all the blood vessels as I was working my way to the hilum I then identified the large main renal vein is quite large vein in front of this there was a accessory lower pole renal artery and then a behind the vein there was another large main renal artery and then there was a branching lumbar vein after the renal vein that was obscuring another large artery behind this this was discovered later during the dissection. After the Equality dissection was completed this is a very meticulous dissection to avoid any bleeding I then used the ultrasound to identify the tumor but all the fatty tissue around the tumor was so adherent the tumor appeared to be infiltrating and after looking at this extensively the tumor did go very deep into the hilum I thought it be safer just to proceed with a complete nephrectomy in his older gentleman normal creatinine normal other kidney so in elective fashion we proceeded with a nephrectomy and we called the family let him know organ to proceed with a completion nephrectomy given the findings in surgery of the dense scar tissue as I was coming through the lower pole artery upper pole artery we found an accessory artery that had we done a partial with a pipe because of extensive amount of bleeding after taking all the arteries we took the veins and then the kidney was densely adhered to the spleen superiorly took a long time to dissect this off the spleen very carefully and then the was advanced densely here to posterior wall all this was from prior surgery making it much more difficult than usual after this dissection was completed then we freed the kidney up we put the kidney in Endo Catch bag we put left large endocut patch through the fourth arm in the lower pole quadrant we extracted the kidney through the extraction site opening up about 3 to 4cm we then closed the extraction site with a running 0 Vicryl we then acute copiously irrigate out the abdomen there was no signs of bleeding all the blood vessels were then clipped minimal blood loss prior blood loss was around 250 cc. Then at this point I would put some Floseal up by the splenic bed because of the minor oozing from the fat but nothing significant and then we closed the 1012 air seal port with a 2 Teto-Andres stitches we drained evacuated all the air of the abdomen remove the ports and then the skin is being closed right now with subcuticular stitches by the per diem physical therapist assistant and his anesthetic is being reversed I will go talk to the family they are aware that we had to convert to a total nephrectomy but given how deep the tumor is I I think the correct decision was done we will will see the final pathology when the specimen is reviewed by the pathological department. Surgeon: Gio Connolly Type of Anesthesia: General Drains: lima Admit VTE Documentation VTE Present on Admission: No VTE Mechan Device Prophylaxis: SCD's VTE Pharm Prophylaxis ordered?: No
[2022-02-16] MEDS: Bupivacaine 0.25% 30 ML Vial (12:00)
[2022-02-16] MEDS: Morphine 2 MG/ML Syringe 1 MG IV (16:02)
[2022-02-16] MEDS: Carbidopa/Levodopa 25/100 Tablet PO ×2 (16:16→21:08)
[2022-02-16] MEDS: oxyCODONE 5 MG Tablet PO (21:07)
[2022-02-16] MEDS: Docusate Sodium 100 MG Capsule PO (21:08)
[2022-02-16] MEDS: Acetaminophen 500 MG Tablet PO (21:08)
[2022-02-16] MEDS: Potassium Chloride Oral Tablet 10 MEQ PO (21:08)
[2022-02-16] MEDS: Tamsulosin HCl 0.4 MG Capsule PO (21:08)
[2022-02-16] MEDS: Metoprolol Tartrate 25 MG Tablet PO (21:08)
[2022-02-16] MEDS: Atorvastatin Calcium 20 MG Tablet PO (21:09)
[2022-02-17] VITALS (7 sets, daily range): BP systolic 135–154; BP diastolic 65–82; PULSE 70–78; RESP 16–18; TEMP 36.6–37.3; O2SAT 92–96
[2022-02-17] MEDS: oxyCODONE 5 MG Tablet PO ×3 (05:44→19:48)
[2022-02-17] MEDS: Carbidopa/Levodopa 25/100 Tablet PO ×3 (05:44→21:29)
[2022-02-17] MEDS: Acetaminophen 500 MG Tablet PO ×3 (05:44→19:47)
--- NOTE | 2022-02-17 07:36 | PCM.PN.GU ---
Subjective Subjective Status post left nephrectomy for renal mass very suspicious for renal cell carcinoma final pending, is doing okay this morning side and some mild pain but we need to DC his Crawford Hep-Lock his IV fluids advance to regular diet and ambulate the patient. Objective Data Objective Data Vital Signs: Vital Signs Temp Pulse Resp BP Pulse Ox O2 Del Method O2 Flow Rate 99.1 F 78 18 147/65 H 94 Nasal Cannula 5 02/17/22 02:00 02/17/22 02:00 02/17/22 02:00 02/17/22 02:00 02/17/22 02:00 02/17/22 02:00 02/17/22 02:00 Oxygen Flow Rate (L/min) 5 Oxygen Delivery Method Nasal Cannula Weight: 81 kg Body Mass Index (BMI) 25.6 Intake & Output: Intake and Output for Last 24 Hours 02/15/22 02/16/22 02/17/22 23:59 23:59 23:59 Intake Total 2447.5 / 3047.5 750 / 750 Output Total 850 / 1100 700 / 700 Balance 1597.5 / 1947.5 50 / 50 Lab / Micro Data Result Diagrams: 02/08/22 12:17 02/08/22 12:17
[2022-02-17] MEDS: Morphine 2 MG/ML Syringe 1 MG IV ×2 (08:07→23:47)
[2022-02-17] MEDS: 0.9% Saline Lock 10 ML Syringe IV ×3 (08:08→18:17)
--- NOTE | 2022-02-17 10:05 | CASEMGMT ---
SAADIA SOL Face to Face with patient for initial transition planning/care coordination assessment. RN CM introduced self and role at [facility]. Patient sitting in chair, alert and oriented. Patient willing to participate in assessment and is able to answer all questions appropriately. Care providers, pharmacy, and demographics verified. Patient wishes to discharge home, denies need for home health at this time, will monitor for need for HHC. Patient states he has no further needs or concerns at this time. CM to follow for discharge planning needs that may arise. PCP: [facility] Specialists: Mohsen, urologist; Friend, GI; Lucía, vacuum repairer; , cloth bin packer Preferred Pharmacy: [facility] Insurance: [email or web address] Prescription Benefit: yes Living Will/HPOA: none LNOK: , daughter Living Arrangements: Patient lives with in a 1.5 story home with bed and bath on first floor. Patient is independent at home. Transportation: self, DME/HHC: Patient has shower chair, raised toilet, cane, walker, and wheelchair at home. Patient has previously been to [facility]. No previous HHC Disposition Plan: Patient to discharge home with family support and follow-up plans in place. Will monitor for HHC. Gracia GARZA, RN, CM
[2022-02-17] MEDS: Isosorbide Mononitrate 30 MG Tablet PO (10:09)
[2022-02-17] MEDS: Metoprolol Tartrate 25 MG Tablet PO ×2 (10:09→21:29)
[2022-02-17] MEDS: Docusate Sodium 100 MG Capsule PO ×2 (10:09→21:29)
[2022-02-17] MEDS: Potassium Chloride Oral Tablet 10 MEQ PO ×2 (10:09→21:29)
[2022-02-17] MEDS: Paroxetine 20 MG Tablet PO (10:11)
[2022-02-17] MEDS: Methimazole 5 MG Tablet PO (10:12)
[2022-02-17] MEDS: 0.9% Normal Saline 1,000 ML 999 ML IV (16:53)
[2022-02-17] MEDS: Tamsulosin HCl 0.4 MG Capsule PO (21:29)
[2022-02-17] MEDS: Atorvastatin Calcium 20 MG Tablet PO (21:29)
[2022-02-18] VITALS (8 sets, daily range): BP systolic 113–160; BP diastolic 49–84; PULSE 64–72; RESP 16–18; TEMP 36.6–36.9; O2SAT 92–96
[2022-02-18] MEDS: oxyCODONE 5 MG Tablet PO ×3 (02:16→20:31)
[2022-02-18] MEDS: Acetaminophen 500 MG Tablet PO ×3 (02:16→20:31)
[2022-02-18] MEDS: Carbidopa/Levodopa 25/100 Tablet PO ×3 (05:53→21:31)
--- NOTE | 2022-02-18 06:47 | PCM.PN.GU ---
Subjective Subjective 76 yo male s/p left nephrectomy check labs today anticipate discharge tomorrow I think he need rehab will order PT OT SW consult Objective Data Objective Data Vital Signs: Vital Signs Temp Pulse Resp BP Pulse Ox O2 Del Method O2 Flow Rate 97.8 F 65 18 113/56 L 93 Nasal Cannula 6 02/18/22 03:17 02/18/22 03:17 02/18/22 03:17 02/18/22 03:17 02/18/22 03:17 02/18/22 03:02/18/22 03:17 Oxygen Flow Rate (L/min) 6 Oxygen Delivery Method Nasal Cannula Weight: 81 kg Body Mass Index (BMI) 25.6 Intake & Output: Intake and Output for Last 24 Hours 02/16/22 02/17/22 02/18/22 23:59 23:59 23:59 Intake Total 2447.5 / 3047.5 2550 / 2750 350 / 350 Output Total 850 / 1100 925 / 1225 700 / 700 Balance 1597.5 / 1947.5 1625 / 1525 -350 / -350 Lab / Micro Data Result Diagrams: 02/08/22 12:17 02/08/22 12:17
--- NOTE | 2022-02-18 06:49 | PCM.TXEXTCAR ---
Diet Diet Order/Speech Therapy: 02/16/22 11:51 Diet: Regular - General Routine Orders/Code Status Suppository Frequency: Daily PRN O2 Liters per Minute: 3 Liters O2 Frequency: Continuous Wound(s) ABDOMEN: Wound Type: Surgical Incision LEFT GROIN: Wound Type: Surgical Incision Suggestions for Active Care Change Position every (hours): 2 Therapies Weight Bearing: Full weight bearing Physical Therapy: Eval and Treat Occupational Therapy: Eval and Treat Speech Therapy: Eval and Treat Problem/Diagnosis (1) Left renal mass: Status: Acute Code(s): N28.89 - Other specified disorders of kidney and ureter Plan: Plan to proceed with left partial nephrectomy Allergies/Procedures Done in Hospital Allergies No Known Allergies Allergy (Verified 02/14/22 09:05) Type of Care/Length of Stay Estimated LOS: Convalescent Care Less Than 30 days Type of Care Needed: Skilled Rehab Potential: Good Prognosis: Good Additional Orders/Day of Discharge Day of Discharge: 02/19/22 Follow Up Care Please follow up with your Primary Care Physician in: [place] Please Follow Up With: Gio Connolly MD When: 2 weeks. Discharge Plan Admission Admit Date/Time: 02/16/22 11:51 Primary Reason for Your Visit: Left radical nephrectomy Attending Provider: Gio Connolly Primary Care Provider: Brandon Cantor Instructions Patient Instructions: Laparoscopic Nephroureterectomy Discharge Orders/Prescriptions Prescriptions: New oxycodone-acetaminophen 5-325 mg tablet 1 tab PO Q6H PRN (Reason: pain) 7 Days Qty: 14 0RF docusate sodium [Colace] 100 mg capsule 100 mg PO BID Qty: 14 0RF Continued carbidopa-levodopa 25-100 mg tablet 25 - 100 tablet PO TID Rx Instructions: 1/2 tablet week one (10/11) 0730, 1230, 1730 1 tablet week two lorazepam [Ativan] 1 mg tablet 1 mg PO DAILY PRN (Reason: Anxiety) cholecalciferol (vitamin D3) [Vitamin D3] 25 mcg (1,000 unit) Tablet 25 mcg PO DAILY potassium chloride 10 mEq capsule, extended release 10 meq PO BID metoprolol tartrate 25 mg tablet 25 mg PO BID paroxetine HCl 20 mg tablet 20 mg PO DAILY isosorbide mononitrate 30 mg tablet extended release 24 hr 30 mg PO DAILY Label Comments: TAKE 1 TABLET BY MOUTH ONCE DAILY acetaminophen 325 mg Tablet 650 mg PO Q6H PRN (Reason: Pain) tamsulosin 0.4 mg capsule PO QHS Label Comments: TAKE 1 CAPSULE BY MOUTH AT BEDTIME atorvastatin 20 mg tablet 20 mg PO QHS methimazole 5 mg tablet 5 mg PO DAILY Discontinued aspirin 81 mg Tablet,Chewable 81 mg PO BREAKFAST Qty: 30 2RF Referrals / Follow Up: Gio Connolly MD [Med Staff - Active Staff] - Brandon Cantor MD [Primary Care Provider] -
[2022-02-18 07:40] LABS: Absolute Lymphocyte Count 0.56 X10^3/uL (0.83-4.51); Absolute Neutrophil Count 5.9 X10^3/uL (2.0-7.7); Basophil# 0.02 X10^3/uL; Basophil% 0.3 % (0-1); Eosinophil# 0.38 X10^3/uL; Hematocrit 42.2 % (40-54); Hemoglobin 13.8 g/dL (13.0-16.5); Lymphocyte # 0.56 X10^3/ul (0.83-4.51); Lymphocyte % 7.4 % (19-41); Mean Corp Hgb Conc 32.7 g/dL (32-36); Mean Corpuscular Volume 91.7 fL (80-94); Mean Platelet Vol. 11.9 fl (6.2-12.0); Monocyte% 9.2 % (0-10); NRBC Flagged by Analyzer 0 % (0-5); Neutrophil # 5.89 X10^3/uL (2.7-7.7); Neutrophil % 77.7 % (47-70); POSITIVE DIFFERENTIAL YES; Platelet Count 139 K/mm3 (150-450); RBC Distribution Width CV 15.3 % (11.6-14.6); RBC Distribution Width SD 51.9 fl (35.1-43.9); White Blood Count 7.6 K/mm3 (4.4-11.0)
[2022-02-18 07:49] LABS: Differential Indicated SCAN CRITERIA MET
[2022-02-18 08:01] LABS: Anion Gap 7 (5-15); BUN 17 mg/dL (7-18); BUN/Creat Ratio 14.2 RATIO (10-20); Calcium,Total 8.8 mg/dL (8.5-10.1); Chloride 107 mmol/L (98-107); EST Glomerular Filtration Rate 62 mL/min (>60); Est Glom Filt Rate - Afr Amer 76 mL/min (>60); Estimated Creatinine Clearance 54.07 ml/min; Glucose 107 mg/dL (74-106); Potassium 4.2 mmol/L (3.5-5.1); Sodium Level 139 mmol/L (136-145)
[2022-02-18 08:46] LABS: Platelet Estimate ADEQUATE (ADEQ); Red Cell Morphology NORM C+C NORMAL (NORM C&C)
[2022-02-18] MEDS: Potassium Chloride Oral Tablet 10 MEQ PO ×2 (09:13→21:31)
[2022-02-18] MEDS: Docusate Sodium 100 MG Capsule PO ×2 (09:13→21:32)
[2022-02-18] MEDS: Methimazole 5 MG Tablet PO (09:13)
[2022-02-18] MEDS: Isosorbide Mononitrate 30 MG Tablet PO (09:13)
[2022-02-18] MEDS: Paroxetine 20 MG Tablet PO (09:13)
[2022-02-18] MEDS: Metoprolol Tartrate 25 MG Tablet PO ×2 (09:13→21:31)
--- NOTE | 2022-02-18 15:31 | CASEMGMT ---
Social Work SW in to pt room to meet and discuss discharge planning. Introduced self and role at the hosptial. Pt agreeable to discussion. A printed list of SNF providers including quality and resources use date that is consistent with patient's preferred geographical region, medical needs, and insurances network were provided via the [employer].?Pt shared preference of [facility]. Second choice would be [facility]. SW called Desiree at TCU and left message reporting pt would like TCU. Requested Desiree call back to inform if TCU can accept or not. Plan: TCU, pending acceptance and precert [place]
[2022-02-18] MEDS: Atorvastatin Calcium 20 MG Tablet PO (21:31)
[2022-02-18] MEDS: Tamsulosin HCl 0.4 MG Capsule PO (21:31)
[2022-02-19] VITALS (10 sets, daily range): BP systolic 137–161; BP diastolic 64–74; PULSE 63–75; RESP 18; TEMP 36.6–36.9; O2SAT 91–98
[2022-02-19] MEDS: Carbidopa/Levodopa 25/100 Tablet PO ×3 (05:10→21:35)
[2022-02-19] MEDS: Docusate Sodium 100 MG Capsule PO ×2 (09:21→21:36)
[2022-02-19] MEDS: Metoprolol Tartrate 25 MG Tablet PO ×2 (09:21→21:35)
[2022-02-19] MEDS: Isosorbide Mononitrate 30 MG Tablet PO (09:22)
[2022-02-19] MEDS: Methimazole 5 MG Tablet PO (09:22)
[2022-02-19] MEDS: Potassium Chloride Oral Tablet 10 MEQ PO ×2 (09:22→21:36)
[2022-02-19] MEDS: Paroxetine 20 MG Tablet PO (09:23)
[2022-02-19] MEDS: Acetaminophen 500 MG Tablet PO ×3 (09:27→21:36)
[2022-02-19] MEDS: LORazepam 1 MG Tablet PO (09:28)
--- NOTE | 2022-02-19 12:44 | NURSING ---
pt trial on room air unsucessful w/ activity, pt drops to 86-88% w/ activity, quickly rises to WNL at rest or on 2l n/c
[2022-02-19] MEDS: Atorvastatin Calcium 20 MG Tablet PO (21:35)
[2022-02-19] MEDS: Tamsulosin HCl 0.4 MG Capsule PO (21:36)
[2022-02-20] VITALS (9 sets, daily range): BP systolic 113–165; BP diastolic 60–68; PULSE 60–86; RESP 16–18; TEMP 36.6–36.7; O2SAT 92–96
[2022-02-20] MEDS: oxyCODONE 5 MG Tablet PO (00:34)
[2022-02-20] MEDS: Carbidopa/Levodopa 25/100 Tablet PO ×3 (05:16→21:25)
--- NOTE | 2022-02-20 08:34 | PCM.PN.BLA ---
Progress Note Status post left nephrectomy doing well he is fully recovered awaiting transfer to skilled facility for short-term rehab. Is moving his bowels tolerating regular diet last blood work was normal.
[2022-02-20] MEDS: Docusate Sodium 100 MG Capsule PO ×2 (09:53→21:26)
[2022-02-20] MEDS: Isosorbide Mononitrate 30 MG Tablet PO (09:53)
[2022-02-20] MEDS: Methimazole 5 MG Tablet PO (09:54)
[2022-02-20] MEDS: Metoprolol Tartrate 25 MG Tablet PO ×2 (09:54→21:25)
[2022-02-20] MEDS: Paroxetine 20 MG Tablet PO (09:54)
[2022-02-20] MEDS: Potassium Chloride Oral Tablet 10 MEQ PO ×2 (09:54→21:26)
[2022-02-20] MEDS: Acetaminophen 500 MG Tablet PO (13:10)
[2022-02-20] MEDS: Tamsulosin HCl 0.4 MG Capsule PO (21:25)
[2022-02-20] MEDS: Atorvastatin Calcium 20 MG Tablet PO (21:26)
[2022-02-21] VITALS (10 sets, daily range): BP systolic 111–151; BP diastolic 58–74; PULSE 61–70; RESP 16–18; TEMP 36.6–36.9; O2SAT 94–99
[2022-02-21] MEDS: oxyCODONE 5 MG Tablet PO (00:16)
[2022-02-21] MEDS: Carbidopa/Levodopa 25/100 Tablet PO ×3 (05:58→21:15)
[2022-02-21] MEDS: Isosorbide Mononitrate 30 MG Tablet PO (09:40)
[2022-02-21] MEDS: Metoprolol Tartrate 25 MG Tablet PO ×2 (09:40→21:19)
[2022-02-21] MEDS: Docusate Sodium 100 MG Capsule PO ×2 (09:40→21:15)
[2022-02-21] MEDS: Paroxetine 20 MG Tablet PO (09:40)
[2022-02-21] MEDS: Potassium Chloride Oral Tablet 10 MEQ PO ×2 (09:40→21:15)
[2022-02-21] MEDS: Methimazole 5 MG Tablet PO (09:41)
--- NOTE | 2022-02-21 09:51 | CASEMGMT ---
Social Work Desiree from [facility] able to accept pt. Precert will be started today. PLAN: [facility], pending precert [place]
--- NOTE | 2022-02-21 10:58 | PHA.DC.MC ---
Pharmacy Service has performed discharge medication reconciliation and counseling for this patient. The patient was counseled on the following discharge medications and changes in medications for homegoing were reviewed. 1. COLACE 2. PERCOCET The Reason for Use, instructions for use, and potential side effects were reviewed for all new medications. The patient's questions regarding all of their medications were answered. The patient was able to verbally demonstrate an understanding of their discharge medications. Home Medications metoprolol tartrate 25 mg tablet 25 mg PO BID heart 04/15/21 potassium chloride 10 mEq capsule,extended release 10 meq PO BID supplement 04/15/21 cholecalciferol (vitamin D3) 25 mcg (1,000 unit) tablet (Vitamin D3) 25 mcg PO DAILY health maintenance 07/07/21 acetaminophen 325 mg tablet 650 mg PO Q6H PRN Pain 10/18/21 carbidopa 25 mg-levodopa 100 mg tablet 25 - 100 tablet PO TID parkinson's 10/18/21 isosorbide mononitrate 30 mg tablet,extended release 24 hr 30 mg PO DAILY heart 10/18/21 lorazepam 1 mg tablet (Ativan) 1 mg PO DAILY PRN Anxiety 12/01/21 paroxetine HCl 20 mg tablet 20 mg PO DAILY DEPRESSION 12/07/21 atorvastatin 20 mg tablet 20 mg PO QHS high cholesterol 02/08/22 methimazole 5 mg tablet 5 mg PO DAILY thyroid 02/08/22 tamsulosin 0.4 mg capsule 0.4 mg PO QHS urine flow 02/08/22 docusate sodium 100 mg capsule (Colace) 100 mg PO BID #14 caps 02/16/22 oxycodone-acetaminophen 5 mg-325 mg tablet 1 tab PO Q6H PRN pain 7 days #14 tabs 02/16/22 The patient's discharge medication list was reviewed for discrepancies and discrepancies were resolved.
--- NOTE | 2022-02-21 11:16 | CASEMGMT ---
Social Work SW in to inform pt of acceptance at TCU. Pt was appreciative of the information. Pt declined this SW calling family to inform of discharge plan as pt was on the phone with family at this time and family heard the discussion. SW explained insurance authorization is pending and pt will be updated when news is obtained. PLAN: [facility], pending precert [place]
[2022-02-21] MEDS: Tamsulosin HCl 0.4 MG Capsule PO (21:15)
[2022-02-21] MEDS: Atorvastatin Calcium 20 MG Tablet PO (21:16)
[2022-02-22] VITALS (17 sets, daily range): BP systolic 109–157; BP diastolic 49–67; PULSE 61–65; RESP 18; TEMP 36.6–37.1; O2SAT 90–100
[2022-02-22] MEDS: Carbidopa/Levodopa 25/100 Tablet PO ×3 (06:22→21:02)
[2022-02-22] MEDS: Metoprolol Tartrate 25 MG Tablet PO ×2 (09:30→21:02)
[2022-02-22] MEDS: Potassium Chloride Oral Tablet 10 MEQ PO ×2 (09:30→21:02)
[2022-02-22] MEDS: Methimazole 5 MG Tablet PO (09:30)
[2022-02-22] MEDS: Isosorbide Mononitrate 30 MG Tablet PO (09:30)
[2022-02-22] MEDS: Docusate Sodium 100 MG Capsule PO ×2 (09:30→21:02)
[2022-02-22] MEDS: Paroxetine 20 MG Tablet PO (09:31)
--- NOTE | 2022-02-22 10:42 | PHA.DC.MR ---
Pharmacy Service has performed discharge medication reconciliation for this patient. The patient's discharge medication list was reviewed for discrepancies and discrepancies were resolved. Home Medications metoprolol tartrate 25 mg tablet 25 mg PO BID heart 04/15/21 potassium chloride 10 mEq capsule,extended release 10 meq PO BID supplement 04/15/21 cholecalciferol (vitamin D3) 25 mcg (1,000 unit) tablet (Vitamin D3) 25 mcg PO DAILY health maintenance 07/07/21 acetaminophen 325 mg tablet 650 mg PO Q6H PRN Pain 10/18/21 carbidopa 25 mg-levodopa 100 mg tablet 25 - 100 tablet PO TID parkinson's 10/18/21 isosorbide mononitrate 30 mg tablet,extended release 24 hr 30 mg PO DAILY heart 10/18/21 lorazepam 1 mg tablet (Ativan) 1 mg PO DAILY PRN Anxiety 12/01/21 paroxetine HCl 20 mg tablet 20 mg PO DAILY DEPRESSION 12/07/21 atorvastatin 20 mg tablet 20 mg PO QHS high cholesterol 02/08/22 methimazole 5 mg tablet 5 mg PO DAILY thyroid 02/08/22 tamsulosin 0.4 mg capsule 0.4 mg PO QHS urine flow 02/08/22 docusate sodium 100 mg capsule (Colace) 100 mg PO BID #14 caps 02/16/22 oxycodone-acetaminophen 5 mg-325 mg tablet 1 tab PO Q6H PRN pain 7 days #14 tabs 02/16/22
[2022-02-22] MEDS: oxyCODONE 5 MG Tablet PO (13:12)
[2022-02-22] MEDS: Atorvastatin Calcium 20 MG Tablet PO (21:02)
[2022-02-22] MEDS: Tamsulosin HCl 0.4 MG Capsule PO (21:02)
[2022-02-23] VITALS (12 sets, daily range): BP systolic 110–151; BP diastolic 51–92; PULSE 51–78; RESP 18; TEMP 36.4–37.2; O2SAT 88–97
[2022-02-23] MEDS: Carbidopa/Levodopa 25/100 Tablet PO ×3 (05:12→21:44)
--- NOTE | 2022-02-23 07:18 | PCM.PN.BLA ---
Progress Note still waiting discharge to short term rehab, no changes.
[2022-02-23] MEDS: Isosorbide Mononitrate 30 MG Tablet PO (08:48)
[2022-02-23] MEDS: Potassium Chloride Oral Tablet 10 MEQ PO ×2 (08:48→21:44)
[2022-02-23] MEDS: Metoprolol Tartrate 25 MG Tablet PO ×2 (08:48→21:44)
[2022-02-23] MEDS: Paroxetine 20 MG Tablet PO (08:49)
[2022-02-23] MEDS: Methimazole 5 MG Tablet PO (08:49)
--- NOTE | 2022-02-23 10:00 | CASEMGMT ---
Social Work SW in to meet with pt. SW offered update and explained to pt that insurance has not yet given authorization for pt transfer to TCU. Pt voiced understanding. SW discussed intent to update pt with any new information as it is received and pt appreciative. PLAN: [facility], pending precert [place]
[2022-02-23] MEDS: Docusate Sodium 100 MG Capsule PO (21:44)
[2022-02-23] MEDS: Atorvastatin Calcium 20 MG Tablet PO (21:46)
[2022-02-23] MEDS: Tamsulosin HCl 0.4 MG Capsule PO (21:46)
[2022-02-24 03:00] VITALS: BP 128/59; PULSE 56; RESP 18; TEMP 36.7; O2SAT 94
[2022-02-24 03:10] VITALS: BP 128/59; PULSE 56; RESP 18; TEMP 36.7; O2SAT 94
[2022-02-24] MEDS: Carbidopa/Levodopa 25/100 Tablet PO (05:11)
[2022-02-24 07:25] VITALS: BP 160/62; PULSE 56; RESP 22; TEMP 36.6; O2SAT 95
--- NOTE | 2022-02-24 07:31 | PCM.PN.BLA ---
Progress Note never got to rehab doing well home today
--- NOTE | 2022-02-24 08:04 | CASEMGMT ---
Social Work SW received message from Desiree at [facility]. Precert has been obtained. Pt can transfer to [facility] today. Plan: [facility] [place]
--- NOTE | 2022-02-24 08:56 | CASEMGMT ---
Social Work SW in to inform pt of approval by insurance to transfer to TCU. Pt stated would like to go home at this point. Pt discussed having PT/OT at [facility] for a week and feeling strong enough to manage at home rather than SNF. Pt stated Dr. Connolly seen pt this morning and in agreement pt has rebuilt strength and is good to go home. SW discussed option of Home Health with pt. Pt declined, stated feels it is not need at this time. SW informed Desiree at TCU that pt will be discharging home vs. TCU. Disposition: Home [place]
[2022-02-24 08:58] VITALS: O2SAT 92
[2022-02-24 09:41] VITALS: PULSE 61
[2022-02-24] MEDS: Methimazole 5 MG Tablet PO (09:41)
[2022-02-24] MEDS: Metoprolol Tartrate 25 MG Tablet PO (09:41)
[2022-02-24] MEDS: Isosorbide Mononitrate 30 MG Tablet PO (09:43)
[2022-02-24] MEDS: Potassium Chloride Oral Tablet 10 MEQ PO (09:43)
[2022-02-24] MEDS: Paroxetine 20 MG Tablet PO (09:44)
[2022-02-24 10:47] VITALS: BP 111/51; PULSE 58; RESP 20; TEMP 36.5; O2SAT 93
== END 2022-02-24 10:52 | disposition home or self-care (01) | DRG 657 ==
LOC: SDC 12:32 → MS3 12:32
PROVIDERS: Anesthesiology; Internal Medicine Endocrinology, Diabetes & Metabolism; Admitting Provider Urology; PCP Internal Medicine; Referring Provider Urology; Visit Provider Urology
PROC: 0TT14ZZ Resection of Left Kidney, Percutaneous Endoscopic Approach (ICD-10-PCS; CPT 50543; principal; 2022-02-16 07:40)
DX: C64.2 Malignant neoplasm of left kidney, except renal pelvis (principal); N13.8 Other obstructive and reflux uropathy; I50.30 Unspecified diastolic (congestive) heart failure; I11.0 Hypertensive heart disease with heart failure; G20 Parkinson's disease; F41.9 Anxiety disorder, unspecified; E78.00 Pure hypercholesterolemia, unspecified; G62.9 Polyneuropathy, unspecified; E55.9 Vitamin D deficiency, unspecified; N40.1 Benign prostatic hyperplasia with lower urinary tract symptoms; R35.1 Nocturia; Z79.82 Long term (current) use of aspirin; Z79.899 Other long term (current) drug therapy; Z87.891 Personal history of nicotine dependence
CPT/HCPCS: 36415; 80048; 80076; 82607; 82652; 82746; 83883; 84425; 84439; 84443; 84481; 85025; 85027; 85610; 85730; 88307; 97110; 97116; 97129; 97162; 97166; 97530; 97535; J7030; J7120; A4216; J2405

== ENCOUNTER → 2022-03-29 | Outpatient (CLI) | payer MEDICARE, SELFPAY ==
--- NOTE | 2022-03-29 09:54 | CDU_ITS ---
Reason For Study: carotid stenonsis Rt. Velocities/BP Lt. Velocities/BP Prox CCA 74.9/6.9 cm/sec. Prox CCA 114.6/7.7 cm/sec. Mid CCA 91.9/8.8 cm/sec. Mid CCA 102.3/6.5 cm/sec. Dist CCA 88.1/8.8 cm/sec. Dist CCA 91.2/9.0 cm/sec. Prox ICA 63.0/6.9 cm/sec. Prox ICA 45.6/6.9 cm/sec. Mid ICA 65.2/11.3 cm/sec. Mid ICA 67.4/11.6 cm/sec. Dist ICA 61.9/11.3 cm/sec. Dist ICA 90.5/16.8 cm/sec. Rt. ICA/CCA = .7. Lt. ICA/CCA = .9. Prox ECA 133.9 cm/sec. Prox ECA 150.3 cm/sec. Rt. Vert. 36.9/6.4 cm/sec. Lt. Vert. 38.6/5.5 cm/sec. Right Extracranial There is heterogeneous, irregular atherosclerotic plaque noted in the right common carotid artery. There is heterogeneous, irregular atherosclerotic plaque noted in the right internal carotid artery. There is heterogeneous, irregular atherosclerotic plaque noted in the right external carotid artery. Antegrade flow is noted in the right vertebral artery. Left Extracranial There is homogeneous, smooth atherosclerotic plaque noted in the left common carotid artery. There is heterogeneous, irregular atherosclerotic plaque noted in the left internal carotid artery. There is intimal thickening but no significant atherosclerotic plaque noted in the left external carotid artery. Antegrade flow is noted in the left vertebral artery. Procedure Carotid Duplex [id number]. This is a Carotid Duplex examination using B-mode, color flow and specral Doppler. The exam was diagnostic. Exam performed in department. VL/Carotid Duplex Ultrasound Interpretation Summary Back at the proximal right internal carotid artery with less than 50% stenosis. Less than 50% stenosis right external carotid artery Minimal irregular plaque at the proximal left internal carotid artery with less than 50% stenosis Less than 50% stenosis left external carotid artery Patent and antegrade vertebral arteries bilaterally Ordering Physician: William Jimenes Performed By: Peng Rico RVT
== END | disposition home or self-care (01) ==
LOC: CVS 09:54
PROVIDERS: PCP Internal Medicine; Referring Provider Surgery; Visit Provider Surgery
DX: I65.22 Occlusion and stenosis of left carotid artery (principal)
CPT/HCPCS: 93880

== ENCOUNTER 2022-04-26 12:45 | Day surgery (SDC) | payer MEDICARE, SELFPAY ==
[2022-04-26] VITALS (7 sets, daily range): BP systolic 113–148; BP diastolic 44–63; PULSE 54–59; RESP 16; TEMP 36.7–37.4; O2SAT 95–98; BMI 26.5
[2022-04-26] MEDS: Lactated Ringers 1,000 ML 15 ML IV (13:26)
--- NOTE | 2022-04-26 13:31 | HP.PCM_ITS ---
History and Physical Date of Admission: 04/26/22 MARTA OLIVIA, is a 76 M who presents to the office today for Initial consult. Marta established with this clinic 03.01.22 with referral from PCP for watery diarrhea with abdominal cramping and weight loss that has been ongoing for approximately a year. Weight loss has been largely r/t several hospitalizations in the last year for kidney, prostate and knee surgeries; he lost approximately 40lbs during this time and weight is now trending upward to 186lbs. Watery diarrhea, increased flatulence and lower abdominal cramping started following colonic surgery in 2014; issues are particularly nocturnal 3-4 times. No blood/mucous noted. [facility] ED presentation 11.14.21 for symptoms with suspicion for repeat episode of pseudomembranous enterocolitis. He was discharged with instructions to use immodium OTC. 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 FH two 1st?cousins with colon cancer resulting in . C.Difficile 2014 +; +; -. Unsure of ATB treatment CT abd/pel 01.06.22 for abdominal pain/ renal cancer finding multiple gallstones; multiple hypodensities of liver; evidence of prior small bowel surgery; renal mass, recommend MRI/CT. ROS Eyes Eyes: Positive for irritation and discharge Cardio Cardiology: Positive for shortness of breath (on exertion) Musc Musculoskeletal: Positive for joint pain, back pain, stiffness and Arthritis Psych Psychiatric: Positive for anxiety Quality Reporting Tobacco Screening ([facility] 138) Smoking Status: Former smoker Assessment and Plan Assessment and Plan (1) Diarrhea: ?Status:?Chronic ?Plan: After reviewing his imaging of his colon from his recent CT scan of the abdomen pelvis on 01/06/2022 evaluation for renal cell carcinoma of the left kidney it appears as if he has 2 surgical anastomosis 1 possibility ileocolonic and the other one rectosigmoid.? He did have a right lower quadrant colostomy he says and not the ostomy.? I am assuming that it was a colostomy because he was only emptying at 250 cc bag once a day and not several times a day which would expect with an ileostomy.? He is getting nocturnal diarrhea that seems to sound like overflow diarrhea possibly secondary to a colocolonic stricture or ileocolonic stricture.? He also has some inflammation in the rectum.? This is been going on since 2015 status post surgery along with 2 bouts of C. difficile colitis which almost definitely threw off his bacterial katie.? He is taking 2 medicines for diagnosis of Parkinson's disease which also showed affecting his bowel transit and particularly methimazole and Sinemet.? We will perform a colonoscopy to evaluate his postsurgical anatomy.? During that time we will do stool studies to evaluate the osmolality and possible inflammation in his colon. Insert agent be no changes
--- NOTE | 2022-04-26 13:45 | COLBX_PTH ---
PATIENT: MARTA OLIVIA LOC: [facility] U#:[id number] AGE/SX: 76/M ROOM: RE04/26/[address]: Dr. James Obrien DO : 1945 BED: DIS: 04/26/2022 SPEC #: [id number] RECD: 04/26/22 15:47 STATUS: RAY REPeg #: [id number] BRITTNEY: 04/26/22 13:[address]: James Obrien DEPT: SURGICAL PATHOLOGY RECD BY: Lili Elias ENTERED: 04/27/22 08:53 SP TYPE: COLON BX OTHR DR: Dr. Brandon Cantor MD Tissues: A - COLON BIOPSY B - Ascending colon C - Ileum, NOS D - COLON BIOPSY E - COLON BIOPSY F - Sigmoid colon biopsy G - Rectum, NOS Procedures: Surgery Specimen Level IV HEADER OPERATION: Colonoscopy with hot snare, polypectomy, biopsy PRE-OP DIAGNOSIS: Diarrhea TISSUE SUBMITTED: A - Splenic flexure polyp biopsy, B - Ascending colon polyp biopsy (x2), C - Terminal ileum biopsy, D - Hepatic flexure polyp biopsy, E - Random colon biopsy, F - Sigmoid colon biopsy, G - Anorectal anastomosis biopsy MICROSCOPIC DIAGNOSIS A. Splenic flexure polyp, biopsy: Fragments of tubulovillous adenoma. B. Ascending colon polyp, biopsy: Scant fragments of tubular adenoma. Fragments of fecal material. See comment. C. Terminal ileum, biopsy: Fragments of small intestinal mucosa, no pathologic diagnosis. D. Hepatic flexure polyp, biopsy: Fragments of tubular adenoma. E. Colon, random biopsy: Fragments of colonic mucosa, no pathologic diagnosis. F. Sigmoid colon, biopsy: Fragments of tubular adenoma. G. Anorectal anastomosis, biopsy: Fragments of colonic mucosa with rare pigment-laden macrophages suspicious for melanosis coli. SJ:rg 04/29/2022 COMMENT B. The specimen predominantly consists of fecal material. MICROSCOPIC DESCRIPTION Slides are reviewed. GROSS DESCRIPTION A - Received in fixative is one container labeled with the patient's name and designated splenic flexure polyp biopsy. The specimen consists of a brandt-pink polyp measuring 1.5 x 0.9 x 0.7 cm. The polyp is bisected. Also present in the container are multiple fragments of brandt soft tissue measuring in aggregate 2 x 0.3 x 0.1 cm. The entire specimen is submitted in one cassette. B - Received in fixative is one container labeled with the patient's name and designated ascending colon polyp biopsy x2. The specimen consists of multiple irregular fragments of light brandt soft tissue mixed with fecal material that in aggregate measure 1 x 0.3 x 0.1 cm. The specimen is totally submitted in one cassette. C - Received in fixative is one container labeled with the patient's name and designated terminal ileum biopsy. The specimen consists of two irregular fragments of light brandt soft tissue that in aggregate measure 0.6 x 0.3 x 0.1 cm. The specimen is totally submitted in one cassette. D - Received in fixative is one container labeled with the patient's name and designated hepatic flexure polyp biopsy. The specimen consists of multiple irregular fragments of light brandt soft tissue that in aggregate measure 2.5 x 1.5 x 0.2 cm. The specimen is totally submitted in one cassette. E - Received in fixative is one container labeled with the patient's name and designated random colon biopsy. The specimen consists of multiple irregular fragments of light brandt soft tissue that in aggregate measure 1 x 0.5 x 0.1 cm. The specimen is totally submitted in one cassette. F - Received in fixative is one container labeled with the patient's name and designated sigmoid colon polyp biopsy. The specimen consists of multiple irregular fragments of light brandt soft tissue that in aggregate measure 1.5 x 0.7 x 0.3 cm. The specimen is totally submitted in one cassette. G - Received in fixative is one container labeled with the patient's name and designated anorectal anastomosis biopsy. The specimen consists of two irregular fragments of light brandt soft tissue that in aggregate measure 0.5 x 0.5 x 0.1 cm. The specimen is totally submitted in one cassette. / SJ:rg 04/27/2022 TC:1 CPT: 24749 x7
--- NOTE | 2022-04-26 14:25 | OP.COLON_ITS ---
Patient Name: Rohan Hernandes Procedure Date: 04/26/2022 1:34 PM Date of : 1945 Age: 76 Procedure: Colonoscopy Indications: Adenomatous polyps in the colon Providers: DO Marika Villarreal MD: Brandon Cantor Medicines: Monitored Anesthesia Care Patient Profile: This is a 76 year old male. Refer to note in patient chart for documentation of history and physical. Last Colonoscopy: 5 years ago. Complications: No immediate complications. Procedure: Pre-Anesthesia Assessment: - Prior to the procedure, a History and Physical was performed, and patient medications and allergies were reviewed. The patient is competent. The risks and benefits of the procedure and the sedation options and risks were discussed with the patient. All questions were answered and informed consent was obtained. Patient identification and proposed procedure were verified by the physician in the pre-procedure area. Mental Status Examination: alert and oriented. Airway Examination: normal oropharyngeal airway and neck mobility. Respiratory Examination: clear to auscultation. CV Examination: normal. Prophylactic Antibiotics: The patient does not require prophylactic antibiotics. Prior Anticoagulants: The patient has taken no previous anticoagulant or antiplatelet agents. ASA Grade Assessment: II - A patient with mild systemic disease. After reviewing the risks and benefits, the patient was deemed in satisfactory condition to undergo the procedure. The anesthesia plan was to use monitored anesthesia care (MAC). Immediately prior to administration of medications, the patient was re-assessed for adequacy to receive sedatives. The heart rate, respiratory rate, oxygen saturations, blood pressure, adequacy of pulmonary ventilation, and response to care were monitored throughout the procedure. The physical status of the patient was re-assessed after the procedure. After I obtained informed consent, the scope was passed under direct vision. Throughout the procedure, the patient's blood pressure, pulse, and oxygen saturations were monitored continuously. The colonoscope was introduced through the anus and advanced to the terminal ileum. The colonoscopy was performed without difficulty. The patient tolerated the procedure well. The quality of the bowel preparation was good. Scope In: 1:45:35 PM Scope Withdrawal Time 0 hours 11 minutes 1 second Scope Out: 2:10:48 PM Total Procedure Duration Time 0 hours 25 minutes 13 seconds Findings: The perianal and digital rectal examinations were normal. Eight sessile polyps were found in the sigmoid colon, splenic flexure and ascending colon. The polyps were 1 to 2 mm in size. These polyps were removed with a hot snare. Resection and retrieval were complete. Verification of patient identification for the specimen was done. Estimated blood loss was minimal. There was evidence of a prior end-to-end colo-colonic anastomosis in the rectum. This was patent and was characterized by healthy appearing mucosa. The anastomosis was traversed. Biopsies were taken with a cold forceps for histology. Verification of patient identification for the specimen was done. Estimated blood loss was minimal. An area of mildly congested mucosa was found in the sigmoid colon, in the descending colon, at the splenic flexure and in the ascending colon. Biopsies were taken with a cold forceps for histology. Verification of patient identification for the specimen was done. Estimated blood loss was minimal. Extensive amounts of stool was found in the cecum, precluding visualization. The terminal ileum contained a benign-appearing, intrinsic moderate stenosis measuring 2 cm (in length) x 3 mm (inner diameter) that was traversed after dilation. Biopsies were taken with a cold forceps for histology. Verification of patient identification for the specimen was done. Estimated blood loss was minimal. A TTS dilator was passed through the scope. Dilation with a 15 mm colonic balloon dilator was performed. The dilation site was examined and showed complete resolution of luminal narrowing. Estimated blood loss was minimal. A few small-mouthed diverticula were found in the recto-sigmoid colon and sigmoid colon. Impression: - Eight 1 to 2 mm polyps in the sigmoid colon, at the splenic flexure and in the ascending colon, removed with a hot snare. Resected and retrieved. - Patent end-to-end colo-colonic anastomosis, characterized by healthy appearing mucosa. Biopsied. - Congested mucosa in the sigmoid colon, in the descending colon, at the splenic flexure and in the ascending colon. Biopsied. - Stool in the cecum. - Stricture in the terminal ileum. Biopsied. Dilated. - Diverticulosis in the recto-sigmoid colon and in the sigmoid colon. Recommendation: - Discharge patient to home. - Resume previous diet. - Continue present medications. - Await pathology results. - Repeat colonoscopy in 1 year for surveillance. Procedure Code(s): --- Professional --- 53505, Colonoscopy, flexible; with removal of tumor(s), polyp(s), or other lesion(s) by snare technique 88873, Colonoscopy, flexible; with transendoscopic balloon dilation 20477, 59, Colonoscopy, flexible; with biopsy, single or multiple CPT copyright 2017 [employer]. All rights reserved. The codes documented in this report are preliminary and upon wedding coordinator review may be revised to meet current compliance requirements. James Obrien DO 04/26/2022 2:24:34 PM This report has been signed electronically. Number of Addenda: 0 Note Initiated On: 04/26/2022 1:34 PM
--- NOTE | 2022-04-26 14:26 | OP.CCLET_ITS ---
04/26/2022 Brandon Cantor [address] [place] [address] Re : Colonoscopy procedure for Rohan Hernandes Dear Dr. Cantor This procedure was performed on Tuesday, April 26, 2022. My impressions and recommendations are as follows: Impressions : - Eight 1 to 2 mm polyps in the sigmoid colon, at the splenic flexure and in the ascending colon, removed with a hot snare. Resected and retrieved. - Patent end-to-end colo-colonic anastomosis, characterized by healthy appearing mucosa. Biopsied. - Congested mucosa in the sigmoid colon, in the descending colon, at the splenic flexure and in the ascending colon. Biopsied. - Stool in the cecum. - Stricture in the terminal ileum. Biopsied. Dilated. - Diverticulosis in the recto-sigmoid colon and in the sigmoid colon. Recommendations : - Discharge patient to home. - Resume previous diet. - Continue present medications. - Await pathology results. - Repeat colonoscopy in 1 year for surveillance. My findings are described in the full procedure note, which is enclosed. If I can be of further assistance, please feel free to contact me at . Sincerely, James Obrien, 04/26/2022 2:24:34 PM This report has been signed electronically.
[2022-06-07 16:55] LABS: Free T3 2.2 pg/mL (2.18-3.98); T4 Free Direct 0.85 ng/dL (0.76-1.46); Thyroid Stim Hormone (TSH) 1.95 uIU/mL (0.358-3.74)
== END 2022-04-26 15:12 | disposition home or self-care (01) ==
LOC: EN 12:46 → AC 12:46
PROVIDERS: Internal Medicine Endocrinology, Diabetes & Metabolism; PCP Internal Medicine; Referring Provider Internal Medicine; Visit Provider Internal Medicine Gastroenterology
PROC: 0DJD8ZZ Inspection of Lower Intestinal Tract, Via Natural or Artificial Opening Endoscopic (ICD-10-PCS; CPT 45378; principal; 2022-04-26 13:40)
DX: D12.5 Benign neoplasm of sigmoid colon (principal); G20 Parkinson's disease; I11.0 Hypertensive heart disease with heart failure; I50.30 Unspecified diastolic (congestive) heart failure; K56.699 Other intestinal obstruction unspecified as to partial versus complete obstruction; D12.2 Benign neoplasm of ascending colon; D12.3 Benign neoplasm of transverse colon; K57.30 Diverticulosis of large intestine without perforation or abscess without bleeding; K63.89 Other specified diseases of intestine; R63.4 Abnormal weight loss; F41.9 Anxiety disorder, unspecified; N40.0 Benign prostatic hyperplasia without lower urinary tract symptoms; F32.A Depression, unspecified; E55.9 Vitamin D deficiency, unspecified; E78.5 Hyperlipidemia, unspecified; Z87.891 Personal history of nicotine dependence; Z86.73 Personal history of transient ischemic attack (TIA), and cerebral infarction without residual deficits; Z79.899 Other long term (current) drug therapy; Z86.711 Personal history of pulmonary embolism; Z68.26 Body mass index [BMI] 26.0-26.9, adult
CPT/HCPCS: 45385; 45380; 45386; 36415; 84439; 84443; 84481; 88305; J7120; J2405

== ENCOUNTER 2022-04-29 12:16 | Inpatient (IN) | payer MEDICARE, SELFPAY ==
[2022-04-29] VITALS (11 sets, daily range): BP systolic 146–191; BP diastolic 66–86; PULSE 61–98; RESP 18; TEMP 36.6–37.4; O2SAT 89–95; BMI 26.6; BMI 23.6
--- NOTE | 2022-04-29 12:35 | CT_ITS ---
EXAM: CT ABDOMEN AND PELVIS WITHOUT INTRAVENOUS CONTRAST CLINICAL INDICATION: Pain -- Please mention lumbar sacral spine TECHNIQUE: Helically acquired images were obtained of the abdomen and pelvis without intravenous contrast. This CT exam was performed using one or more of the following dose reduction techniques: automated exposure control, adjustment of the mA and/or kV according to patient size, and/or use of iterative reconstruction technique. This report was created using [employer] report generation technology. COMPARISON: CT Abdomen Pelvis dated 01/06/2022 FINDINGS: LOWER THORAX: Normal. Lung bases are clear. No cardiomegaly. No pericardial effusion. ABDOMEN: LIVER: Stable hepatic cysts. GALLBLADDER AND BILE DUCTS: Small calcified gallstones again seen. No gallbladder distention or wall edema. No intra- or extrahepatic biliary ductal dilation. PANCREAS: Normal. No focal cystic mass. SPLEEN: Normal. Normal size without focal cystic or solid mass. ADRENALS: Normal. No nodules. KIDNEYS AND URETERS: Interval left nephrectomy. Stable right renal cyst. STOMACH AND BOWEL: Normal. No bowel distention. No focal inflammatory change. PELVIS: APPENDIX: No evidence of acute appendicitis. BLADDER: Right posterolateral 4 cm urinary bladder diverticulum is again seen. REPRODUCTIVE: Unremarkable as visualized. No mass. ABDOMEN and PELVIS: INTRAPERITONEAL SPACE: No evidence of hemoperitoneum. No free air. BONES/JOINTS: Right hip prosthesis remains in place. Stable multilevel disc degeneration the spine. No suspicious lytic or blastic abnormality. SOFT TISSUES: Normal. No discrete abdominal or pelvic wall hernia. VASCULATURE: Normal. Abdominal aorta is non-dilated. LYMPH NODES: Normal. No enlarged lymph nodes. CT/Abdomen/Pelvis without Cont IMPRESSION: 1. No acute intra-abdominal or pelvic abnormality. 2. Cholelithiasis. 3. Interval left nephrectomy. 4. Stable degenerative changes of the spine. Electronically Signed: Leroy Delcid MD at 13:53 EST ,
--- NOTE | 2022-04-29 12:37 | CT_ITS ---
EXAM: CT HEAD WITHOUT INTRAVENOUS CONTRAST CLINICAL INDICATION: fall, head injury TECHNIQUE: Multiple axial images were obtained of the head without intravenous contrast. This CT exam was performed using one or more of the following dose reduction techniques: automated exposure control, adjustment of the mA and/or kV according to patient size, and/or use of iterative reconstruction technique. This report was created using [employer] report generation technology. COMPARISON: CT Head dated 10/18/2021 FINDINGS: BRAIN AND EXTRA-AXIAL SPACES: Areas of diminished white matter density noted within both cerebral hemispheres suggestive of chronic microvascular change. Prominence of the cortical sulci and ventricles related to volume loss change. No intra- or extra-axial hemorrhage. No evidence of acute infarct. No intracranial mass or mass effect. There is preservation of the weir/white matter interface. Posterior fossa structures are unremarkable. Basal cisterns are patent. BONES/JOINTS: Normal. No discrete lytic or blastic abnormalities. SINUSES: Mucosal thickening of the paranasal sinuses noted. MASTOID AIR CELLS: Normal. Clear. ORBITS: Visualized globes, extraocular muscles, optic nerves and retrobulbar fat appear unremarkable. CT/Brain/Head without Contrast IMPRESSION: 1. No acute intracranial abnormality. 2. Senescent changes. 3. No interval change. Electronically Signed: Leroy Delcid MD at 13:49 EST ,
--- NOTE | 2022-04-29 12:37 | CT_ITS ---
EXAM: CT CERVICAL SPINE WITHOUT INTRAVENOUS CONTRAST CLINICAL INDICATION: Trauma TECHNIQUE: Helically acquired images were obtained of the cervical spine without intravenous contrast. 2D reformatted images were reviewed. This CT exam was performed using one or more of the following dose reduction techniques: automated exposure control, adjustment of the mA and/or kV according to patient size, and/or use of iterative reconstruction technique. This report was created using [employer] report generation technology. COMPARISON: None. FINDINGS: VERTEBRAE: No acute fracture or subluxation. DISCS/SPINAL CANAL/NEURAL FORAMINA: Multilevel disc space narrowing most pronounced at C5-6. Extensive multilevel facet arthropathy. No spinal or neural foraminal stenosis. SOFT TISSUES: Normal. No prevertebral soft tissue swelling. LYMPH NODES: Normal. No cervical adenopathy. THYROID: Thyroid gland is diffusely enlarged which may be related to goiter. LUNG APICES: Unremarkable as visualized. Clear. CT/Spine Cervical without Contras IMPRESSION: No acute fracture or subluxation. Diffuse spondylosis Electronically Signed: Leroy Delcid MD at 13:41 EST ,
--- NOTE | 2022-04-29 12:45 | EDS_ITS ---
HPI <OLIVIA Reyna - Last Filed: 04/29/22 16:23> History of Present Illness Chief Complaint: Fall Narrative Narrative: 76-year-old male with history of arthritis, BPH, hyperlipidemia, hypertension, early stage of Parkinson's, presents to the emergency department after mechanical fall. Patient states that he tripped over his dog falling directly backwards landing on his buttocks, falling backwards striking the back of his head on the floor. Patient complaining of a headache, neck pain, lower back pain as well as bilateral flank pain. Patient denies any LOC. Patient is currently not on any blood thinners. Patient states he was unable to get up off the floor and had to call the ambulance. [facility] <OLIVIA Reyna - Last Filed: 04/29/22 16:23> [facility] Medical History (Updated 04/29/22 @ 16:23 by OLIVIA Reyna) Abnormal weight loss Acute respiratory failure with hypoxia Ambulates with cane Anxiety Arthritis Arthritis Back pain BPH (benign prostatic hyperplasia) Cancer Cardiology follow-up encounter Change in bowel habit Chronic diarrhea Chronic respiratory failure with hypoxia Closed right hip fracture Depression Diarrhea Difficulty swallowing Excessive bleeding Expressive aphasia Fall Former smoker Heartburn History of Clostridium difficile infection History of echocardiogram History of pain when walking Hypercholesterolemia Hyperlipidemia Hypertension Hyperthyroidism Hypothyroidism IBS (irritable bowel syndrome) Leg cramps Melanoma in situ of unspecified part of face Osteoarthritis Osteoporosis Parkinsons disease Polycythemia Prostate disease Pulmonary embolism Shortness of breath on exertion Skin cancer Syncope Thyrotoxicosis Wears dentures Wears glasses Home Medications metoprolol tartrate 25 mg tablet 25 mg PO BID heart 04/15/21 [History Last Taken 04/29/22] potassium chloride 10 mEq capsule,extended release 10 meq PO BID supplement 04/15/21 [History Last Taken 04/29/22] cholecalciferol (vitamin D3) 25 mcg (1,000 unit) tablet (Vitamin D3) 25 mcg PO DAILY health maintenance 07/07/21 [History Last Taken 04/29/22] acetaminophen 325 mg tablet 650 mg PO Q6H PRN Pain 10/18/21 [History Last Taken 3 Days Ago ~04/26/22] carbidopa 25 mg-levodopa 100 mg tablet 1.5 tablet PO TID PARKINSONS 10/18/21 [History Last Taken 04/29/22] isosorbide mononitrate 30 mg tablet,extended release 24 hr 30 mg PO DAILY ANGINA 10/18/21 [History Last Taken 04/29/22] lorazepam 1 mg tablet (Ativan) 1 mg PO DAILY PRN Anxiety 12/01/21 [History Last Taken 02/15/22] paroxetine HCl 20 mg tablet 20 mg PO DAILY DEPRESSION 12/07/21 [History Last Taken 02/15/22] atorvastatin 20 mg tablet 20 mg PO QHS CHOLESTEROL 02/08/22 [History Last Taken 04/28/22] tamsulosin 0.4 mg capsule 0.4 mg PO QHS urine flow 02/08/22 [History Last Taken 04/28/22] methimazole 5 mg tablet 5 mg PO DAILY THYROID 04/29/22 [History Last Taken 04/29/22] Allergy/AdvReac Type Severity Reaction Status Date / Time No Known Allergies Allergy Verified 04/29/22 12:18 Family History Father Lung cancer Mother Parkinsons Heart failure Surgical History H/O colonoscopy History of cardiac catheterization History of colon surgery History of nephrectomy, left History of rhinoplasty History of tonsillectomy History of total knee replacement (TKR) History of total right hip replacement History of transurethral resection of prostate reattachment of severed finger stoma reversal Social History household members: spouse housing: house 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al status: employed 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: [employer] pets and animals: Yes pets and animals: cat(s) and dog(s) Smoking Status: Former smoker quit date: 06/05/98 pack-years: 72 second hand exposure: No alcohol intake: never substance use type: does not use seatbelt use: always ROS <OLIVIA Reyna - Last Filed: 04/29/22 16:23> ROS ED ROS Narrative Constitutional: Negative for fever, chills, weight loss, weakness Eyes: Negative for vision loss, vision change, double vision ENT: Negative for any sore throat, ear pain, congestion Cardiovascular: Negative for any chest pain, tightness, palpitations Respiratory: Negative for any cough, sputum production, hemoptysis, dyspnea, dyspnea on exertion, orthopnea Gastrointestinal: Negative for any nausea, vomiting, diarrhea, constipation, blood in stool, blood in vomit. Positive for abdominal pain, flank pain : Negative for any urinary frequency, dysuria, retention, blood in urine Muscle skeletal: Negative for any muscle joint pain, stiffness, myalgias, arthralgias. Positive for neck pain, back pain Neurological: Negative for any headache, syncope, numbness or tingling, dizziness Skin: Negative for any rashes, lumps, itching, lacerations. Positive for abrasions to the right parietal area Psychiatric: Negative for any depression, anxiety, stress, suicidal ideation, homicidal ideation Hematologic: Negative for any easy bruising, excessive bruising, easy bleeding Allergies: Negative for any eczema, hives, rash EXAM <OLIVIA Reyna - Last Filed: 04/29/22 16:23> Physical Exam Narrative Exam Narrative: Vital signs reviewed. HEET: Head normocephalic atraumatic, TMs clear bilaterally. Posterior pharynx is clear, moist mucous membranes. Nares clear bilaterally. Pupils are equal round reactive to light, negative for any hemotympanum, septal hematoma. Patient does have a superficial abrasion to the right parietal area. Neck: Supple with no lymphadenopathy. No signs of meningismus, negative jolt sign. Patient does have tenderness to the cervical spine, no step-off deformity. Patient is moving all extremities. Cardiac: Regular rate and rhythm no murmurs gallops or rubs, equal peripheral pulses bilaterally. Respiratory: Lungs clear to auscultation bilaterally. No chest tenderness. Abdomen: Soft, nondistended. No abdominal bruit or pulsatile masses. No hepatosplenomegaly patient has active bowel sounds in all quadrants, no peritoneal signs. Patient does have pain to palpation of bilateral flanks. Extremities: No peripheral edema, no signs of gross trauma or deformity. Active full range of motion of all extremities. Patient is able to fully flex and extend bilateral lower extremities. Equal pulses. No neurological focal deficit. Neuro: Cranial nerves II through XII intact, no focal neurological deficits. Skin: Clean dry and intact with no rash, purpura, petechiae, vesicles or pustules. Backs/flank: No CVA tenderness, no deformity. Patient has midline spinal tenderness to the lumbar sacral spine. There is no step-off deformity. There is no abrasion, ecchymosis, crepitus. Psych: Normal mood and affect. No SI, HI or acute psychosis. Const Vital Signs: 04/29/22 12:20 04/29/22 12:26 04/29/22 12:47 Temperature 98 F Temperature Source Oral Pulse Rate 61 Respiratory Rate 18 Respiratory Effort Normal Non-Labored Respiratory Depth Normal Respiratory Pattern Normal Blood Pressure 146/66 H Blood Pressure Mean 92 Pulse Ox 95 89 Oxygen Delivery Method Room Air Room Air Oxygen Flow Rate (L/min) 04/29/22 14:32 04/29/22 15:30 04/29/22 15:30 Temperature Temperature Source Pulse Rate 63 61 Respiratory Rate 18 18 Respiratory Effort Respiratory Depth Respiratory Pattern Blood Pressure 191/77 H 166/72 H Blood Pressure Mean 115 103 Pulse Ox 90 90 Oxygen Delivery Method Nasal Cannula Nasal Cannula Nasal Cannula Oxygen Flow Rate (L/min) 2 2 2 04/29/22 16:34 Temperature 98 F Temperature Source Oral Pulse Rate 61 Respiratory Rate 18 Respiratory Effort Respiratory Depth Respiratory Pattern Blood Pressure 166/72 H Blood Pressure Mean 103 Pulse Ox 90 Oxygen Delivery Method Nasal Cannula Oxygen Flow Rate (L/min) 2 Positive well nourished and well developed General Appearance ED: well developed <Dr. Jaspreet Cummins, DO - Last Filed: 04/29/22 16:44> Physical Exam Const Vital Signs: 04/29/22 12:20 04/29/22 12:26 04/29/22 12:47 Temperature 98 F Temperature Source Oral Pulse Rate 61 Respiratory Rate 18 Respiratory Effort Normal Non-Labored Respiratory Depth Normal Respiratory Pattern Normal Blood Pressure 146/66 H Blood Pressure Mean 92 Pulse Ox 95 89 Oxygen Delivery Method Room Air Room Air Oxygen Flow Rate (L/min) 04/29/22 14:32 04/29/22 15:30 04/29/22 15:30 Temperature Temperature Source Pulse Rate 63 61 Respiratory Rate 18 18 Respiratory Effort Respiratory Depth Respiratory Pattern Blood Pressure 191/77 H 166/72 H Blood Pressure Mean 115 103 Pulse Ox 90 90 Oxygen Delivery Method Nasal Cannula Nasal Cannula Nasal Cannula Oxygen Flow Rate (L/min) 2 2 2 04/29/22 16:34 Temperature 98 F Temperature Source Oral Pulse Rate 61 Respiratory Rate 18 Respiratory Effort Respiratory Depth Respiratory Pattern Blood Pressure 166/72 H Blood Pressure Mean 103 Pulse Ox 90 Oxygen Delivery Method Nasal Cannula Oxygen Flow Rate (L/min) 2 MDM <OLIVIA Reyna - Last Filed: 04/29/22 16:23> [facility] Lab Data Labs: Laboratory Results - last 24 hr 04/29/22 04/29/22 15:30 15:30 WBC 6.5 RBC 4.87 Hgb 14.5 Hct 44.4 MCV 91.2 MCH 29.8 MCHC 32.7 RDW Std Deviation 49.7 H RDW Coeff of Daisy 14.8 H Plt Count 143 L MPV 11.3 Immature Gran % (Auto) 0.300 Neut % (Auto) 79.1 H Lymph % (Auto) 9.8 L Yancey % (Auto) 8.1 Eos % (Auto) 2.1 Baso % (Auto) 0.6 Absolute Neuts (auto) 5.2 Absolute Lymphs (auto) 0.64 L Nucleated RBC % 0 Sodium 141 Potassium 4.2 Chloride 109 H Carbon Dioxide 29.0 Anion Gap 3 L BUN 20 H Creatinine 1.34 H Estim Creat Clear Calc 48.42 Est GFR (MDRD) Af Amer 67 Est GFR (MDRD) Non-Af 55 L BUN/Creatinine Ratio 14.9 Glucose 114 H Calcium 9.0 Radiography Diagnostic Testing: Clinical Impression(s) from Imaging Studies Abdomen/Pelvis CT 04/29/22 12:35 IMPRESSION: 1. No acute intra-abdominal or pelvic abnormality. 2. Cholelithiasis. 3. Interval left nephrectomy. 4. Stable degenerative changes of the spine. Electronically Signed: Leroy Delcid MD at 13:53 EST , Brain CT 04/29/22 12:37 IMPRESSION: 1. No acute intracranial abnormality. 2. Senescent changes. 3. No interval change. Electronically Signed: Leroy Delcid MD at 13:49 EST , Cervical Spine CT 04/29/22 12:37 IMPRESSION: No acute fracture or subluxation. Diffuse spondylosis Electronically Signed: Leroy Delcid MD at 13:41 EST , Treatment and Re-Evaluation Narrative: Patient appears well, patient appears nontoxic, vital signs are stable. Patient presents to the emergency department after mechanical fall landing on his buttocks, striking the back of his head. Patient is currently on any blood thinners. Patient showed no neurological focal deficit. Patient significant pain was in his head, neck, as well as lower back. Patient CT scan of the brain showed no acute intracranial abnormality. Patient's CT of the cervical spine shows no acute fracture or subluxation. Patient's x-ray of the abdomen pelvis also looking for the lower lumbar spine showed no acute intra-abdominal pelvic abnormality. Stable degenerative changes of the spine. Patient was given IM morphine, which did help his pain, he was redosed. On reassessment, the patient was still unable to sit up on his own. Patient lives with an elderly and she cannot take care of him. Patient states that he is in so much pain that he cannot move and he needs to be admitted. Patient did receive some basic laboratory values, patient's CBC was unremarkable, patient's chemistries showed slight renal dysfunction with a creatinine of 1.34. However patient does have 1 kidney at this time. Patient will be admitted to hospitalist for observation. There was discussion regarding going to rehab facility after admission. <Dr. Jaspreet Cummins, DO - Last Filed: 04/29/22 16:44> [facility] Narrative Medical decision making narrative: I have personally performed a face to face assessment of the patient and have reviewed the SYDNEE Note. I performed a substantive portion of the visit including all aspects of the following. My nava findings include: History: Patient presents with pain in his low back that began after a fall. Patient slipped and fell backwards. Patient landed on his buttocks. Patient fell back and hit his head. Patient complains of pain in his low back, neck, and head. Patient denies any paresthesias or weakness. Patient states his pain is worse with any movement. Patient denies any paresthesias. Patient denies any weakness. Exam: Vital signs are stable except for an elevated blood pressure of 146/66. Patient is afebrile. Patient is in no acute distress. There is mild tenderness over the occiput. There is mild tenderness over the cervical spine and paraspinal muscles. There is tenderness over the lumbar spine and paraspinal muscles. There is no bony crepitance or step-off. Abdomen is soft. Bowel sounds are normal. There is some mild left upper quadrant tenderness where he had a recent nephrectomy. Cranial nerves II through XII are intact. Strength is 5/5 bilaterally in the upper and lower extremities. There are no sensory deficits noted. Medical Decision Making: CT scan of the brain was obtained. There is no acute intracranial abnormality. This was interpreted by the radiologist and reviewed by myself. CT scan of the cervical spine was obtained. There is no acute fracture or spondylolisthesis. There is diffuse arthritis noted. This was interpreted by the radiologist and reviewed by myself. CT scan of the abdomen pelvis was obtained. There is no acute abnormality noted. There are degenerative changes of the lumbar spine. There is no acute fracture or spondylolisthesis. This was interpreted by the radiologist and reviewed by myself. Patient was unable to sit up after 2 doses of morphine. Because of this, case was discussed with the hospitalist for possible admission. Basic labs were obtained. Lab Data Labs: Laboratory Results - last 24 hr 04/29/22 04/29/22 15:30 15:30 WBC 6.5 RBC 4.87 Hgb 14.5 Hct 44.4 MCV 91.2 MCH 29.8 MCHC 32.7 RDW Std Deviation 49.7 H RDW Coeff of Daisy 14.8 H Plt Count 143 L MPV 11.3 Immature Gran % (Auto) 0.300 Neut % (Auto) 79.1 H Lymph % (Auto) 9.8 L Yancey % (Auto) 8.1 Eos % (Auto) 2.1 Baso % (Auto) 0.6 Absolute Neuts (auto) 5.2 Absolute Lymphs (auto) 0.64 L Nucleated RBC % 0 Sodium 141 Potassium 4.2 Chloride 109 H Carbon Dioxide 29.0 Anion Gap 3 L BUN 20 H Creatinine 1.34 H Estim Creat Clear Calc 48.42 Est GFR (MDRD) Af Amer 67 Est GFR (MDRD) Non-Af 55 L BUN/Creatinine Ratio 14.9 Glucose 114 H Calcium 9.0 Radiography Diagnostic Testing: Clinical Impression(s) from Imaging Studies Abdomen/Pelvis CT 04/29/22 12:35 IMPRESSION: 1. No acute intra-abdominal or pelvic abnormality. 2. Cholelithiasis. 3. Interval left nephrectomy. 4. Stable degenerative changes of the spine. Electronically Signed: Leroy Delcid MD at 13:53 EST , Brain CT 04/29/22 12:37 IMPRESSION: 1. No acute intracranial abnormality. 2. Senescent changes. 3. No interval change. Electronically Signed: Leroy Delcid MD at 13:49 EST , Cervical Spine CT 04/29/22 12:37 IMPRESSION: No acute fracture or subluxation. Diffuse spondylosis Electronically Signed: Leroy Delcid MD at 13:41 EST , Discharge Plan Dx/Rx/DC Orders Clinical Impression: Acute low back pain, Fall, Intractable back pain, Renal dysfunction Disposition Disposition: Acute Care [facility]
[2022-04-29] MEDS: Ondansetron ODT 4 MG Tablet 8 MG PO (12:47)
[2022-04-29] MEDS: Morphine 4 MG/ML Syringe IM ×2 (12:47→14:33)
[2022-04-29] MEDS: 0.9% Normal Saline 1,000 ML 1000 ML IV (15:30)
[2022-04-29 15:51] LABS: Absolute Lymphocyte Count 0.64 X10^3/uL (0.83-4.51); Absolute Neutrophil Count 5.2 X10^3/uL (2.0-7.7); Basophil# 0.04 X10^3/uL; Basophil% 0.6 % (0-1); Eosinophil# 0.14 X10^3/uL; Eosinophils% 2.1 % (0-5); Hematocrit 44.4 % (40-54); Hemoglobin 14.5 g/dL (13.0-16.5); Lymphocyte # 0.64 X10^3/ul (0.83-4.51); Lymphocyte % 9.8 % (19-41); Mean Corp Hgb Conc 32.7 g/dL (32-36); Mean Corpuscular Hgb 29.8 pg (27.0-32.0); Mean Corpuscular Volume 91.2 fL (80-94); Mean Platelet Vol. 11.3 fl (6.2-12.0); Monocyte# 0.53 X10^3/uL; Monocyte% 8.1 % (0-10); NRBC Flagged by Analyzer 0 % (0-5); Neutrophil # 5.15 X10^3/uL (2.7-7.7); Neutrophil % 79.1 % (47-70); Platelet Count 143 K/mm3 (150-450); RBC Distribution Width CV 14.8 % (11.6-14.6); RBC Distribution Width SD 49.7 fl (35.1-43.9); Red Blood Count 4.87 M/mm3 (4.6-6.2); White Blood Count 6.5 K/mm3 (4.4-11.0)
[2022-04-29 15:52] LABS: POSITIVE COUNT NO; POSITIVE DIFFERENTIAL NO; POSITIVE MORPHOLOGY NO
[2022-04-29 15:55] LABS: Anion Gap 3 (5-15); BUN 20 mg/dL (7-18); BUN/Creat Ratio 14.9 RATIO (10-20); Chloride 109 mmol/L (98-107); Creatinine, Serum 1.34 mg/dL (0.70-1.30); EST Glomerular Filtration Rate 55 mL/min (>60); Est Glom Filt Rate - Afr Amer 67 mL/min (>60); Estimated Creatinine Clearance 48.42 ml/min; Glucose 114 mg/dL (74-106); Potassium 4.2 mmol/L (3.5-5.1); Sodium Level 141 mmol/L (136-145)
--- NOTE | 2022-04-29 16:21 | PCM.HP.STD ---
HPI - General General Date of Admission: 04/29/22 Date of Service: 04/29/22 Chief Complaint: Back pain - 1 day HPI Narrative MARTA OLIVIA, is a 76 M who presents after a fall. Patient has history of Parkinson's disease, hypertension, depression, chronic diastolic heart failure, history of left nephrectomy for renal cell carcinoma who comes in after a fall. Patient was tripped over his dog was moving backwards. He hit his head and had an abrasion to the head. He presented with severe right-sided flank pain and inability to move. Patient's vitals in the ED showed blood pressure 146/66, heart rate 61, respiratory 18, temperature 90 8F, states that was 95% on room air. CBCD was unremarkable. CMP was remarkable for BUN of 20, creatinine 1.34. CT of the abdomen and pelvis, brain and cervical spine have been unremarkable. [facility] Medical History Abnormal weight loss Acute respiratory failure with hypoxia Ambulates with cane Anxiety Arthritis Arthritis Back pain BPH (benign prostatic hyperplasia) Cancer Cardiology follow-up encounter Change in bowel habit Chronic diarrhea Chronic respiratory failure with hypoxia Closed right hip fracture Depression Diarrhea Difficulty swallowing Excessive bleeding Expressive aphasia Fall Former smoker Heartburn History of Clostridium difficile infection History of echocardiogram History of pain when walking Hypercholesterolemia Hyperlipidemia Hypertension Hyperthyroidism Hypothyroidism IBS (irritable bowel syndrome) Leg cramps Melanoma in situ of unspecified part of face Osteoarthritis Osteoporosis Parkinsons disease Polycythemia Prostate disease Pulmonary embolism Shortness of breath on exertion Skin cancer Syncope Thyrotoxicosis Wears dentures Wears glasses Home Medications metoprolol tartrate 25 mg tablet 25 mg PO BID heart 04/15/21 [History Last Taken 04/29/22] potassium chloride 10 mEq capsule,extended release 10 meq PO BID supplement 04/15/21 [History Last Taken 04/29/22] cholecalciferol (vitamin D3) 25 mcg (1,000 unit) tablet (Vitamin D3) 25 mcg PO DAILY health maintenance 07/07/21 [History Last Taken 04/29/22] acetaminophen 325 mg tablet 650 mg PO Q6H PRN Pain 10/18/21 [History Last Taken 3 Days Ago ~04/26/22] carbidopa 25 mg-levodopa 100 mg tablet 1.5 tablet PO TID PARKINSONS 10/18/21 [History Last Taken 04/29/22] isosorbide mononitrate 30 mg tablet,extended release 24 hr 30 mg PO DAILY ANGINA 10/18/21 [History Last Taken 04/29/22] lorazepam 1 mg tablet (Ativan) 1 mg PO DAILY PRN Anxiety 12/01/21 [History Last Taken 02/15/22] paroxetine HCl 20 mg tablet 20 mg PO DAILY DEPRESSION 12/07/21 [History Last Taken 02/15/22] atorvastatin 20 mg tablet 20 mg PO QHS CHOLESTEROL 02/08/22 [History Last Taken 04/28/22] tamsulosin 0.4 mg capsule 0.4 mg PO QHS urine flow 02/08/22 [History Last Taken 04/28/22] methimazole 5 mg tablet 5 mg PO DAILY THYROID 04/29/22 [History Last Taken 04/29/22] Allergy/AdvReac Type Severity Reaction Status Date / Time No Known Allergies Allergy Verified 04/29/22 12:18 Family History Father Lung cancer Mother Parkinsons Heart failure Surgical History H/O colonoscopy History of cardiac catheterization History of colon surgery History of nephrectomy, left History of rhinoplasty History of tonsillectomy History of total knee replacement (TKR) History of total right hip replacement History of transurethral resection of prostate reattachment of severed finger stoma reversal Social History household members: spouse housing: house 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al status: employed 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: [employer] pets and animals: Yes pets and animals: cat(s) and dog(s) Smoking Status: Former smoker quit date: 06/05/98 pack-years: 72 second hand exposure: No alcohol intake: never substance use type: does not use seatbelt use: always ROS ROS Narrative Constitutional: Denies: Anorexia, Chills, Fever, Night Sweats, Weight Change Eyes: Denies: Blurred vision, Cataracts, Conjunctivae Inflammation, Pain, Redness, Vision Change HEENT: Denies: Difficulty Hearing, Difficulty Swallowing, Head Aches, Hearing Changes, Sinus Congestion, Sinus Drainage Cardiovascular: Denies: Chest Pain, Orthopnea, Palpitations Respiratory: Denies: Cough, Shortness of breath at rest, Sputum production Gastrointestinal: Denies: Abdominal Pain, Nausea, Vomiting Genitourinary: Denies: Dysuria Musculoskeletal: Severe right flank pain denies: Joint Pain, Joint stiffness, Joint swelling, Joint Tenderness Skin: Denies: Rash, Wounds Neurological: Denies: Numbness, Tingling, Focal weakness Vital Signs Vital Signs Vital Signs: 04/29/22 12:20 04/29/22 12:26 04/29/22 12:47 Temperature 98 F Temperature Source Oral Pulse Rate 61 Respiratory Rate 18 Respiratory Effort Normal Non-Labored Respiratory Depth Normal Respiratory Pattern Normal Blood Pressure 146/66 H Blood Pressure Mean 92 Pulse Ox 95 89 Oxygen Delivery Method Room Air Room Air Oxygen Flow Rate (L/min) 04/29/22 14:32 04/29/22 15:30 04/29/22 15:30 Temperature Temperature Source Pulse Rate 63 61 Respiratory Rate 18 18 Respiratory Effort Respiratory Depth Respiratory Pattern Blood Pressure 191/77 H 166/72 H Blood Pressure Mean 115 103 Pulse Ox 90 90 Oxygen Delivery Method Nasal Cannula Nasal Cannula Nasal Cannula Oxygen Flow Rate (L/min) 2 2 2 Weight Weight: 84.3 kg Body Mass Index (BMI) 26.6 Physical Exam Narrative Physical exam: General: Alert, Oriented x3, Cooperative, appears in mild pain HEENT: Atraumatic Oral: Moist Mucosa Neck: Supple Lungs: Clear to auscultation Cardiovascular: HS I+II, regular, no murmurs Abdomen: Bowel Sounds Present, Soft, tenderness on palpation of the right flank and surrounding muscular area Extremities: No edema Skin: No rashes, No breakdown Neurological: Grossly intact Psych/Mental Status: Appropriate Results Lab / Micro Data Result Diagrams: 04/29/22 15:30 04/29/22 15:30 Labs: Laboratory Results - last 24 hr 04/29/22 15:30: WBC 6.5, RBC 4.87, Hgb 14.5, Hct 44.4, MCV 91.2, MCH 29.8, MCHC 32.7, RDW Std Deviation 49.7 H, RDW Coeff of Daisy 14.8 H, Plt Count 143 L, MPV 11.3, Immature Gran % (Auto) 0.300, Neut % (Auto) 79.1 H, Lymph % (Auto) 9.8 L, Quay % (Auto) 8.1, Eos % (Auto) 2.1, Baso % (Auto) 0.6, Absolute Neuts (auto) 5.2, Absolute Lymphs (auto) 0.64 L, Nucleated RBC % 0 04/29/22 15:30: Sodium 141, Potassium 4.2, Chloride 109 H, Carbon Dioxide 29.0, Anion Gap 3 L, BUN 20 H, Creatinine 1.34 H, Estim Creat Clear Calc 48.42, Est GFR (MDRD) Af Amer 67, Est GFR (MDRD) Non-Af 55 L, BUN/Creatinine Ratio 14.9, Glucose 114 H, Calcium 9.0 Radiology Impression Abdomen/Pelvis CT 04/29/22 12:35 IMPRESSION: 1. No acute intra-abdominal or pelvic abnormality. 2. Cholelithiasis. 3. Interval left nephrectomy. 4. Stable degenerative changes of the spine. Electronically Signed: Leroy Delcid MD at 13:53 EST Reading Location ID and State: [facility] / [place] Tel , Service support , Brain CT 04/29/22 12:37 IMPRESSION: 1. No acute intracranial abnormality. 2. Senescent changes. 3. No interval change. Electronically Signed: Leroy Delcid MD at 13:49 EST , Cervical Spine CT 04/29/22 12:37 IMPRESSION: No acute fracture or subluxation. Diffuse spondylosis Electronically Signed: Leroy Delcid MD at 13:41 EST , Assessment & Plan Assessment/Plan (1) Intractable back pain: PLAN: Plan 1. Acute intractable back pain status post fall Patient lives with his who is also elderly; patient is unable to walk His is unable to care for him He received a couple doses of pain meds in the ED with no improvement We will admit to MedSurg, continue scheduled Tylenol, Lidoderm patches, oxycodone as needed PT and OT to evaluate and treat Anticipate the patient might need 1 to 2 days in the hospital to get pain under control to enable him to function 2.Parkinson's disease, likely contributory to fall, continue on Sinemet 3.Hyperthyroidism, continue methimazole 4. Hypertension/left carotid stenosis/hyperlipidemia, Continue on statin, metoprolol, isosorbide 5. Depression, continue Paxil 6. BPH, continue Flomax 7. History of renal cell carcinoma status post left nephrectomy 8. DVT prophylaxis?Heparin subcu I discussed and explained in details the various types of CODE STATUS-full code, DNR CCA, DNR CC. Patient chose to be full code and wants aggressive care in the event of a cardiopulmonary arrest. Time spent discussing CODE STATUS 16 minutes Charges/Coding Visit Charges OBSV E&M: 20275 Initial observation care L3 Procedures Hospitalists Procedures: 95828 Advncd Care Plan 30 Min
[2022-04-29] MEDS: Lidocaine 5% Patch 2 PATCH TOPICAL (18:36)
[2022-04-29] MEDS: 0.9% Normal Saline 1,000 ML 75 ML IV (18:37)
[2022-04-29] MEDS: Carbidopa/Levodopa 25/100 Tablet PO (18:38)
[2022-04-29] MEDS: Metoprolol Tartrate 25 MG Tablet PO (18:38)
[2022-04-29] MEDS: Tamsulosin HCl 0.4 MG Capsule PO (18:39)
[2022-04-29] MEDS: Acetaminophen 500 MG Tablet 1000 MG PO (18:39)
[2022-04-29] MEDS: oxyCODONE 5 MG Tablet PO (20:16)
[2022-04-29] MEDS: Atorvastatin Calcium 20 MG Tablet PO (21:58)
[2022-04-29] MEDS: Heparin Injection (Vial) 5,000 UNIT/ML VIAL 5000 UNIT SC (21:58)
[2022-04-30] VITALS (11 sets, daily range): BP systolic 138–176; BP diastolic 57–79; PULSE 55–66; RESP 16–18; TEMP 36.3–37.1; O2SAT 82–100
[2022-04-30] MEDS: Acetaminophen 500 MG Tablet 1000 MG PO ×3 (04:43→21:13)
[2022-04-30] MEDS: Carbidopa/Levodopa 25/100 Tablet PO ×3 (04:43→21:13)
[2022-04-30] MEDS: Heparin Injection (Vial) 5,000 UNIT/ML VIAL 5000 UNIT SC ×3 (04:44→21:14)
[2022-04-30] MEDS: Metoprolol Tartrate 25 MG Tablet PO ×2 (04:45→21:13)
[2022-04-30] MEDS: Isosorbide Mononitrate 30 MG Tablet PO (04:46)
[2022-04-30 07:21] LABS: Absolute Lymphocyte Count 0.73 X10^3/uL (0.83-4.51); Absolute Neutrophil Count 5.7 X10^3/uL (2.0-7.7); Basophil# 0.04 X10^3/uL; Basophil% 0.5 % (0-1); Eosinophil# 0.18 X10^3/uL; Eosinophils% 2.4 % (0-5); Hematocrit 41.8 % (40-54); Hemoglobin 13.6 g/dL (13.0-16.5); Lymphocyte # 0.73 X10^3/ul (0.83-4.51); Lymphocyte % 9.9 % (19-41); Mean Corp Hgb Conc 32.5 g/dL (32-36); Mean Corpuscular Volume 92.3 fL (80-94); Mean Platelet Vol. 11.9 fl (6.2-12.0); Monocyte# 0.64 X10^3/uL; Monocyte% 8.7 % (0-10); NRBC Flagged by Analyzer 0 % (0-5); Neutrophil # 5.74 X10^3/uL (2.7-7.7); Neutrophil % 78.1 % (47-70); Platelet Count 141 K/mm3 (150-450); RBC Distribution Width CV 14.8 % (11.6-14.6); RBC Distribution Width SD 50.4 fl (35.1-43.9); Red Blood Count 4.53 M/mm3 (4.6-6.2); White Blood Count 7.4 K/mm3 (4.4-11.0)
[2022-04-30 08:10] LABS: AST(SGOT) 8 U/L (15-37); Alanine Aminotransfer ALT/SGPT 7 U/L (16-61); Albumin, Serum 2.8 g/dL (3.2-5.0); Alkaline Phosphatase 84 U/L (45-117); Anion Gap 4 (5-15); BUN 17 mg/dL (7-18); BUN/Creat Ratio 13.8 RATIO (10-20); Calcium,Total 8.1 mg/dL (8.5-10.1); Chloride 109 mmol/L (98-107); Creatinine, Serum 1.23 mg/dL (0.70-1.30); EST Glomerular Filtration Rate 61 mL/min (>60); Est Glom Filt Rate - Afr Amer 73 mL/min (>60); Estimated Creatinine Clearance 52.76 ml/min; Globulin 2.7 g/dL (2.2-4.2); Glucose 93 mg/dL (74-106); Phosphorus 2.6 mg/dL (2.5-4.9); Potassium 3.8 mmol/L (3.5-5.1); Protein, Total 5.5 g/dL (6.4-8.2); Sodium Level 139 mmol/L (136-145)
[2022-04-30] MEDS: Cholecalciferol (VIT D3) 25 MCG TABLET (1,000 UNITS) PO (08:53)
[2022-04-30] MEDS: Potassium Chloride Oral Tablet 10 MEQ PO ×2 (08:53→16:34)
[2022-04-30] MEDS: Lidocaine 5% Patch 2 PATCH TOPICAL (10:46)
[2022-04-30] MEDS: Paroxetine 20 MG Tablet PO (10:46)
[2022-04-30] MEDS: Methimazole 5 MG Tablet PO (10:50)
--- NOTE | 2022-04-30 12:06 | DCINST_ITS ---
Discharge Instructions Diet Discharge Diet: Low fat / Low cholesterol and 2000 mg Sodium Diet Activity Discharge Activity: Return to Normal Activity Follow Up Care Test Results: Test results from this visit will be discussed in further detail at your follow- up appointment, if applicable. Discharge Plan Admission Admit Date/Time: 04/29/22 16:17 Primary Reason for Your Visit: Acute intractable back pain Attending Provider: Ewa Ordonez Primary Care Provider: Brandon Cantor Instructions Additional Instructions / Restrictions: Continue to take Tylenol [id number] for couple of days Follow-up with your primary care doctor within a week Discharge Orders/Prescriptions Prescriptions: New lidocaine 5 % Adhesive Patch,Medicated 2 patch topical DAILY Qty: 0 0RF Protocol: *Topical Application Instructions APPLICATION INSTRUCTIONS: to the right flank region Continued carbidopa-levodopa 25-100 mg tablet 1.5 tablet PO TID lorazepam [Ativan] 1 mg tablet 1 mg PO DAILY PRN (Reason: Anxiety) cholecalciferol (vitamin D3) [Vitamin D3] 25 mcg (1,000 unit) Tablet 25 mcg PO DAILY potassium chloride 10 mEq capsule, extended release 10 meq PO BID metoprolol tartrate 25 mg tablet 25 mg PO BID paroxetine HCl 20 mg tablet 20 mg PO DAILY MDD T isosorbide mononitrate 30 mg tablet extended release 24 hr 30 mg PO DAILY acetaminophen 325 mg Tablet 650 mg PO Q6H PRN (Reason: Pain) tamsulosin 0.4 mg capsule 0.4 mg PO QHS atorvastatin 20 mg tablet 20 mg PO QHS methimazole 5 mg tablet 5 mg PO DAILY Referrals / Follow Up: Brandon Cantor MD [Primary Care Provider] - Disposition Disposition (needs filled in before D/C Order can be placed): Home, Self Care
--- NOTE | 2022-04-30 12:59 | DS.PCM_ITS ---
Providers Date of Admission: 04/29/22 Date of Discharge: 04/30/22 Primary Care Physician: Dr. Brandon Cantor MD Reason For Visit: INTRACTABLE BACK PAIN Diagnosis Discharge Diagnosis (1) Intractable back pain: Status: Acute Code(s): M54.9 - Dorsalgia, unspecified Plan 1. Acute intractable back pain status post fall 2. Parkinson's disease 3.Hyperthyroidism 4. Hypertension 5. Left carotid stenosis 6. Hyperlipidemia 7. Depression 8. BPH 9. History of renal cell carcinoma status post left nephrectomy Medications at Discharge Home Medications metoprolol tartrate 25 mg tablet 25 mg PO BID heart 04/15/21 potassium chloride 10 mEq capsule,extended release 10 meq PO BID supplement 04/15/21 cholecalciferol (vitamin D3) 25 mcg (1,000 unit) tablet (Vitamin D3) 25 mcg PO DAILY health maintenance 07/07/21 acetaminophen 325 mg tablet 650 mg PO Q6H PRN Pain 10/18/21 carbidopa 25 mg-levodopa 100 mg tablet 1.5 tablet PO TID PARKINSONS 10/18/21 isosorbide mononitrate 30 mg tablet,extended release 24 hr 30 mg PO DAILY ANGINA 10/18/21 lorazepam 1 mg tablet (Ativan) 1 mg PO DAILY PRN Anxiety 12/01/21 paroxetine HCl 20 mg tablet 20 mg PO DAILY DEPRESSION 12/07/21 atorvastatin 20 mg tablet 20 mg PO QHS CHOLESTEROL 02/08/22 tamsulosin 0.4 mg capsule 0.4 mg PO QHS urine flow 02/08/22 methimazole 5 mg tablet 5 mg PO DAILY THYROID 04/29/22 lidocaine 5 % topical patch 2 patch topical DAILY #0 ea 04/30/22 Hospital Course Operations None Procedures None Summary of Care Provided Minutes Spent on Discharge: 30 Hospital Course: 76 M with PMHx of Parkinson's disease, hypertension, depression, chronic diastolic heart failure, history of left nephrectomy for renal cell carcinoma who comes in after a fall.?Patient was tripped over his dog whilst moving backwards.? He hit his head and had an abrasion to the head.? He presented with severe right-sided flank pain and inability to move. In the ED, his vitals were stable. His admitting CBCD and CMP were unremarkable. CT of the abdomen and pelvis, brain and cervical spine have also been unremarkable. He was admitted to the floor and continued on scheduled Tylenol, Lidoderm patches, oxycodone as needed. Patient was also seen by PT and OT. The next morning, his pain was much controlled. He was seen by PT and OT and okayed for discharge home. He was asked to follow-up with his primary care doctor within 1 week. Physical Exam Narrative Physical exam: General: Alert, Oriented x3, Cooperative, appears in mild pain HEENT: Atraumatic Oral: Moist Mucosa Neck: Supple Lungs: Clear to auscultation Cardiovascular: HS I+II, regular, no murmurs Abdomen: Bowel Sounds Present, Soft, tenderness on palpation of the right flank and surrounding muscular area Extremities: No edema Skin: No rashes, No breakdown Neurological: Grossly intact Psych/Mental Status: Appropriate Weight / BMI Weight Weight: 74.9 kg Body Mass Index (BMI) 23.6 ABG / Lab / Microbiology Data Result Diagrams: 04/30/22 06:35 04/30/22 06:35 Laboratory: Laboratory Results - last 24 hr 04/29/22 15:30: WBC 6.5, RBC 4.87, Hgb 14.5, Hct 44.4, MCV 91.2, MCH 29.8, MCHC 32.7, RDW Std Deviation 49.7 H, RDW Coeff of Daisy 14.8 H, Plt Count 143 L, MPV 11.3, Immature Gran % (Auto) 0.300, Neut % (Auto) 79.1 H, Lymph % (Auto) 9.8 L, [place] % (Auto) 8.1, Eos % (Auto) 2.1, Baso % (Auto) 0.6, Absolute Neuts (auto) 5.2, Absolute Lymphs (auto) 0.64 L, Nucleated RBC % 0 04/29/22 15:30: Sodium 141, Potassium 4.2, Chloride 109 H, Carbon Dioxide 29.0, Anion Gap 3 L, BUN 20 H, Creatinine 1.34 H, Estim Creat Clear Calc 48.42, Est GFR (MDRD) Af Amer 67, Est GFR (MDRD) Non-Af 55 L, BUN/Creatinine Ratio 14.9, Glucose 114 H, Calcium 9.0 04/30/22 06:35: WBC 7.4, RBC 4.53 L, Hgb 13.6, Hct 41.8, MCV 92.3, MCH 30.0, MCHC 32.5, RDW Std Deviation 50.4 H, RDW Coeff of Daisy 14.8 H, Plt Count 141 L, MPV 11.9, Immature Gran % (Auto) 0.400, Neut % (Auto) 78.1 H, Lymph % (Auto) 9.9 L, [place] % (Auto) 8.7, Eos % (Auto) 2.4, Baso % (Auto) 0.5, Absolute Neuts (auto) 5.7, Absolute Lymphs (auto) 0.73 L, Nucleated RBC % 0 04/30/22 06:35: Sodium 139, Potassium 3.8, Chloride 109 H, Carbon Dioxide 26.0, Anion Gap 4 L, BUN 17, Creatinine 1.23, Estim Creat Clear Calc 52.76, Est GFR (MDRD) Af Amer 73, Est GFR (MDRD) Non-Af 61, BUN/Creatinine Ratio 13.8, Glucose 93, Calcium 8.1 L, Phosphorus 2.6, Total Bilirubin 0.80, AST 8 L, ALT 7 L, Alkaline Phosphatase 84, Total Protein 5.5 L, Albumin 2.8 L, Globulin 2.7, Albumin/Globulin Ratio 1.0 Radiography Diagnostic Testing: Radiology Impression Abdomen/Pelvis CT 04/29/22 12:35 IMPRESSION: 1. No acute intra-abdominal or pelvic abnormality. 2. Cholelithiasis. 3. Interval left nephrectomy. 4. Stable degenerative changes of the spine. Electronically Signed: Leroy Delcid MD at 13:53 EST , Brain CT 04/29/22 12:37 IMPRESSION: 1. No acute intracranial abnormality. 2. Senescent changes. 3. No interval change. Electronically Signed: Leroy Delcid MD at 13:49 EST , Cervical Spine CT 04/29/22 12:37 IMPRESSION: No acute fracture or subluxation. Diffuse spondylosis Electronically Signed: Leroy Delcid MD at 13:41 EST , D/C Instructions Discharge Diet: Low fat / Low cholesterol and 2000 mg Sodium Diet Meaningful Use Info Meaningful Use Diagnoses (Choose all that apply): None applicable Discharge Plan Admission Admit Date/Time: 04/29/22 16:17 Primary Reason for Your Visit: Acute intractable back pain Attending Provider: Ewa Ordonez Primary Care Provider: Brandon Cantor Instructions Additional Instructions / Restrictions: Continue to take Tylenol [id number] for couple of days Follow-up with your primary care doctor within a week Discharge Orders/Prescriptions Prescriptions: New lidocaine 5 % Adhesive Patch,Medicated 2 patch topical DAILY Qty: 0 0RF Protocol: *Topical Application Instructions APPLICATION INSTRUCTIONS: to the right flank region Continued carbidopa-levodopa 25-100 mg tablet 1.5 tablet PO TID lorazepam [Ativan] 1 mg tablet 1 mg PO DAILY PRN (Reason: Anxiety) cholecalciferol (vitamin D3) [Vitamin D3] 25 mcg (1,000 unit) Tablet 25 mcg PO DAILY potassium chloride 10 mEq capsule, extended release 10 meq PO BID metoprolol tartrate 25 mg tablet 25 mg PO BID paroxetine HCl 20 mg tablet 20 mg PO DAILY MDD T isosorbide mononitrate 30 mg tablet extended release 24 hr 30 mg PO DAILY acetaminophen 325 mg Tablet 650 mg PO Q6H PRN (Reason: Pain) tamsulosin 0.4 mg capsule 0.4 mg PO QHS atorvastatin 20 mg tablet 20 mg PO QHS methimazole 5 mg tablet 5 mg PO DAILY Referrals / Follow Up: Brandon Cantor MD [Primary Care Provider] - Disposition Disposition (needs filled in before D/C Order can be placed): Home, Self Care Charges/Coding Visit Charges OBSV E&M: 37391 Observation care discharge
--- NOTE | 2022-04-30 13:30 | CASEMGMT ---
SAADIA SOL Face to Face with patient for initial transition planning/care coordination assessment. SAADIA SOL introduced self and role at [facility]. Patient sitting in chair, alert and oriented. Patient willing to participate in assessment and is able to answer all questions appropriately. Care providers, pharmacy, and demographics verified. Patient wishes to discharge home, denies need for home health at this time. Patient states he has no further needs or concerns at this time. CM to follow for discharge planning needs that may arise. 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 Patient states he is independent at home. Transportation: self, DME/HHC: Patient states he has shower chair, raised toilet, cane, walker, rollator, wheelchair, and pulse ox at home. [facility]. Denies previous HHC. Patient denying needs at discharge. SAADIA SOL updated patient that should he reconsider HHC or outpatient therapy he can follow-up with PCP. Patient voiced understanding. Disposition Plan: Patient to discharge home with family support and follow-up plans in place. Gracia GARZA, RN, CM
--- NOTE | 2022-04-30 14:19 | RAD_ITS ---
EXAM: XR CHEST, 1 VIEW CLINICAL INDICATION: sob TECHNIQUE: Frontal view of the chest. This report was created using [employer] report generation technology. COMPARISON: XR Chest dated 10/18/2021 FINDINGS: LUNGS AND PLEURAL SPACES: Normal. No consolidation or edema. No pneumothorax. No effusion. HEART: Normal heart size. MEDIASTINUM: No mediastinal or hilar mass. BONES/JOINTS: Degenerative narrowing of the left glenohumeral joint. Soft tissue calcification adjacent to the left greater tubercle consistent with calcific tendinitis. SOFT TISSUES: Normal. RAD/Chest 1 View (Portable) IMPRESSION: No acute cardiopulmonary abnormality. No interval change. Electronically Signed: Leroy Delcid MD at 15:14 EST ,
[2022-04-30] MEDS: 0.9% Saline Lock 10 ML Syringe IV (14:34)
[2022-04-30] MEDS: Furosemide 40 MG/4 ML Vial IV (14:34)
--- NOTE | 2022-04-30 15:29 | PN.HOSP_ITS ---
Subjective Subjective Follow-up on intractable back pain/hypoxia: Patient was seen and examined. He stated his back pain was much improved. Patient was getting ready to be discharged and was found to be hypoxic on exertion. He was 86%; requiring 6 L of oxygen. Denies any chest pain, dizziness, fever or palpitations. Objective Data Objective Data Vital Signs: Vital Signs Temp Pulse Resp BP Pulse Ox O2 Del Method O2 Flow Rate 97.7 F L 56 L 18 155/69 H 90 Room Air 6 04/30/22 13:13 04/30/22 14:31 04/30/22 13:13 04/30/22 14:31 04/30/22 14:08 04/30/22 13:13 04/30/22 14:08 Oxygen Flow Rate (L/min) [ 6 AMBULATING with Oxygen #1] Oxygen Flow Rate (L/min) 4 Oxygen Delivery Method Room Air Weight: 74.9 kg Body Mass Index (BMI) 23.6 Intake & Output: Intake and Output for Last 24 Hours 04/28/22 04/29/22 04/30/22 23:59 23:59 23:59 Intake Total 1000 / 1000 1000 / 1000 Output Total 300 / 300 Balance 700 / 700 1000 / 1000 Lab / Micro Data Result Diagrams: 05/01/22 04:57 05/01/22 04:57 Labs: Laboratory Results - last 24 hr 04/29/22 15:30: WBC 6.5, RBC 4.87, Hgb 14.5, Hct 44.4, MCV 91.2, MCH 29.8, MCHC 32.7, RDW Std Deviation 49.7 H, RDW Coeff of Daisy 14.8 H, Plt Count 143 L, MPV 11.3, Immature Gran % (Auto) 0.300, Neut % (Auto) 79.1 H, Lymph % (Auto) 9.8 L, [place] % (Auto) 8.1, Eos % (Auto) 2.1, Baso % (Auto) 0.6, Absolute Neuts (auto) 5.2, Absolute Lymphs (auto) 0.64 L, Nucleated RBC % 0 04/29/22 15:30: Sodium 141, Potassium 4.2, Chloride 109 H, Carbon Dioxide 29.0, Anion Gap 3 L, BUN 20 H, Creatinine 1.34 H, Estim Creat Clear Calc 48.42, Est GFR (MDRD) Af Amer 67, Est GFR (MDRD) Non-Af 55 L, BUN/Creatinine Ratio 14.9, Glucose 114 H, Calcium 9.0 04/30/22 06:35: WBC 7.4, RBC 4.53 L, Hgb 13.6, Hct 41.8, MCV 92.3, MCH 30.0, MCHC 32.5, RDW Std Deviation 50.4 H, RDW Coeff of Daisy 14.8 H, Plt Count 141 L, MPV 11.9, Immature Gran % (Auto) 0.400, Neut % (Auto) 78.1 H, Lymph % (Auto) 9.9 L, [place] % (Auto) 8.7, Eos % (Auto) 2.4, Baso % (Auto) 0.5, Absolute Neuts (auto) 5.7, Absolute Lymphs (auto) 0.73 L, Nucleated RBC % 0 04/30/22 06:35: Sodium 139, Potassium 3.8, Chloride 109 H, Carbon Dioxide 26.0, Anion Gap 4 L, BUN 17, Creatinine 1.23, Estim Creat Clear Calc 52.76, Est GFR (MDRD) Af Amer 73, Est GFR (MDRD) Non-Af 61, BUN/Creatinine Ratio 13.8, Glucose 93, Calcium 8.1 L, Phosphorus 2.6, Total Bilirubin 0.80, AST 8 L, ALT 7 L, Alkaline Phosphatase 84, Total Protein 5.5 L, Albumin 2.8 L, Globulin 2.7, Albumin/Globulin Ratio 1.0 Radiography Diagnostic Testing: Radiology Impression Chest X-Ray 04/30/22 14:19 IMPRESSION: No acute cardiopulmonary abnormality. No interval change. Electronically Signed: Leroy Delcid MD at 15:14 EST , Physical Exam Narrative Physical exam: General: Alert, Oriented x3, Cooperative, looks more comfortable HEENT: Atraumatic Oral: Moist Mucosa Neck: Supple Lungs: Diminished to auscultation Cardiovascular: HS I+II, regular, no murmurs Abdomen: Bowel Sounds Present, Soft, improved tenderness on palpation of the right flank and surrounding muscular area Extremities: No edema Skin: No rashes, No breakdown Neurological: Grossly intact Psych/Mental Status: Appropriate Assessment & Plan Assessment/Plan (1) Hypoxia: PLAN: Plan 1. Acute intractable back pain status post fall, pain is improved on scheduled Tylenol, Lidoderm patches, as needed oxycodone 2. Acute hypoxia, likely secondary to atelectasis, chest x-ray shows no acute cardiopulmonary process We will give patient Lasix 40 mg IV x1, encourage use of incentive spirometer, reevaluate in a.m. 3.Parkinson's disease, likely contributory to fall, continue on Sinemet 4.Hyperthyroidism, continue methimazole 5. Hypertension/left carotid stenosis/hyperlipidemia, Continue on statin, metoprolol, isosorbide 6. Depression, continue Paxil 7. BPH, continue Flomax 8. History of renal cell carcinoma status post left nephrectomy 9. DVT prophylaxis?Heparin subcu Charges/Coding Visit Charges Inpatient E&M: 28356 Subs Hosp L2
--- NOTE | 2022-04-30 16:33 | CASEMGMT ---
SAADIA CM in to complete WRIGHT form with patient. RN EBENEZER explained WRIGHT form to patient, patient voiced understanding. Patient signed WRIGHT form and filed in chart. Patient provided with copy of signed WRIGHT form. Patient had no further questions or concerns at this time.
[2022-04-30] MEDS: Atorvastatin Calcium 20 MG Tablet PO (21:13)
[2022-04-30] MEDS: Tamsulosin HCl 0.4 MG Capsule PO (21:13)
[2022-05-01] VITALS (7 sets, daily range): BP systolic 100–190; BP diastolic 56–85; PULSE 57–80; RESP 18; TEMP 36.4–36.6; O2SAT 93–98
[2022-05-01] MEDS: 0.9% Saline Lock 10 ML Syringe IV (03:47)
[2022-05-01] MEDS: hydrALAZINE 20 MG/ML Vial 10 MG IV (03:47)
[2022-05-01 06:00] LABS: Absolute Lymphocyte Count 0.82 X10^3/uL (0.83-4.51); Absolute Neutrophil Count 4.6 X10^3/uL (2.0-7.7); Basophil# 0.04 X10^3/uL; Basophil% 0.6 % (0-1); Eosinophil# 0.26 X10^3/uL; Eosinophils% 4.1 % (0-5); Hematocrit 46.6 % (40-54); Hemoglobin 15.1 g/dL (13.0-16.5); Lymphocyte # 0.82 X10^3/ul (0.83-4.51); Mean Corp Hgb Conc 32.4 g/dL (32-36); Mean Corpuscular Hgb 29.9 pg (27.0-32.0); Mean Corpuscular Volume 92.3 fL (80-94); Mean Platelet Vol. 10.9 fl (6.2-12.0); Monocyte# 0.62 X10^3/uL; Monocyte% 9.8 % (0-10); NRBC Flagged by Analyzer 0 % (0-5); Neutrophil # 4.56 X10^3/uL (2.7-7.7); Neutrophil % 72.3 % (47-70); Platelet Count 139 K/mm3 (150-450); RBC Distribution Width CV 14.8 % (11.6-14.6); RBC Distribution Width SD 50.8 fl (35.1-43.9); Red Blood Count 5.05 M/mm3 (4.6-6.2); White Blood Count 6.3 K/mm3 (4.4-11.0)
[2022-05-01] MEDS: Heparin Injection (Vial) 5,000 UNIT/ML VIAL 5000 UNIT SC (06:17)
[2022-05-01] MEDS: Acetaminophen 500 MG Tablet 1000 MG PO (06:17)
[2022-05-01] MEDS: Carbidopa/Levodopa 25/100 Tablet PO (06:17)
[2022-05-01] MEDS: Metoprolol Tartrate 25 MG Tablet PO (06:19)
[2022-05-01] MEDS: Isosorbide Mononitrate 30 MG Tablet PO (06:19)
[2022-05-01 06:33] LABS: AST(SGOT) 13 U/L (15-37); Alanine Aminotransfer ALT/SGPT 8 U/L (16-61); Albumin, Serum 3.3 g/dL (3.2-5.0); Alkaline Phosphatase 92 U/L (45-117); Anion Gap 4 (5-15); BUN 19 mg/dL (7-18); BUN/Creat Ratio 14.2 RATIO (10-20); Calcium,Total 9.3 mg/dL (8.5-10.1); Chloride 105 mmol/L (98-107); Creatinine, Serum 1.34 mg/dL (0.70-1.30); EST Glomerular Filtration Rate 55 mL/min (>60); Est Glom Filt Rate - Afr Amer 67 mL/min (>60); Estimated Creatinine Clearance 48.42 ml/min; Globulin 3.2 g/dL (2.2-4.2); Glucose 88 mg/dL (74-106); Potassium 3.7 mmol/L (3.5-5.1); Protein, Total 6.5 g/dL (6.4-8.2); Sodium Level 140 mmol/L (136-145)
[2022-05-01] MEDS: Methimazole 5 MG Tablet PO (09:55)
[2022-05-01] MEDS: Lidocaine 5% Patch 2 PATCH TOPICAL (09:55)
[2022-05-01] MEDS: Paroxetine 20 MG Tablet PO (09:55)
[2022-05-01] MEDS: Potassium Chloride Oral Tablet 10 MEQ PO (09:55)
[2022-05-01] MEDS: Cholecalciferol (VIT D3) 25 MCG TABLET (1,000 UNITS) PO (09:55)
== END 2022-05-01 13:04 | disposition home or self-care (01) | DRG 552 ==
LOC: ED 16:29 → MS3 17:05
PROVIDERS: Nurse Practitioner; Admitting Provider Internal Medicine; Emergency Provider Emergency Medicine; PCP Internal Medicine; Visit Provider Internal Medicine
DX: M54.9 Dorsalgia, unspecified (principal); I50.32 Chronic diastolic (congestive) heart failure; J98.11 Atelectasis; I11.0 Hypertensive heart disease with heart failure; E05.90 Thyrotoxicosis, unspecified without thyrotoxic crisis or storm; G20 Parkinson's disease; M47.819 Spondylosis without myelopathy or radiculopathy, site unspecified; I65.22 Occlusion and stenosis of left carotid artery; S00.91XA Abrasion of unspecified part of head, initial encounter; W01.0XXA Fall on same level from slipping, tripping and stumbling without subsequent striking against object, initial encounter; E78.5 Hyperlipidemia, unspecified; R09.02 Hypoxemia; F32.A Depression, unspecified; Z87.891 Personal history of nicotine dependence; N40.0 Benign prostatic hyperplasia without lower urinary tract symptoms; Z85.528 Personal history of other malignant neoplasm of kidney
CPT/HCPCS: 36415; 70450; 71045; 72125; 74176; 80048; 80053; 84100; 85025; 97162; 97165; 97530; 97802; 99251; 99285; J7030; A4216; G0463; J1940

== ENCOUNTER → 2022-06-07 | Outpatient (CLI) | payer MEDICARE, SELFPAY ==
--- NOTE | 2022-06-07 16:32 | RAD_ITS ---
EXAM: XR CHEST, 2 VIEWS CLINICAL INDICATION: KIDNEY CA TECHNIQUE: Frontal and lateral views of the chest. This report was created using [employer] report generation technology. COMPARISON: 04/30/2022 FINDINGS: LUNGS AND PLEURAL SPACES: Unremarkable. No consolidation or edema. No pneumothorax. No effusion. HEART: Unremarkable. Cardiac silhouette not enlarged. MEDIASTINUM: Central airways and mediastinal contour are unremarkable. BONES/JOINTS: There are degenerative changes in the thoracic spine. SOFT TISSUES: Unremarkable. RAD/Chest PA and Lateral IMPRESSION: No radiographic evidence of acute cardiopulmonary disease. Electronically Signed: Billy Cabrera MD at 16:45 EST ,
[2022-06-07 16:44] LABS: ALB/GLOB Ratio 1.1 RATIO (0.9-2.4); AST(SGOT) 12 U/L (15-37); Alanine Aminotransfer ALT/SGPT 8 U/L (16-61); Albumin, Serum 3.6 g/dL (3.2-5.0); Alkaline Phosphatase 100 U/L (45-117); Anion Gap 2 (5-15); BUN 22 mg/dL (7-18); BUN/Creat Ratio 15.8 RATIO (10-20); Calcium,Total 9.4 mg/dL (8.5-10.1); Chloride 107 mmol/L (98-107); Creatinine, Serum 1.39 mg/dL (0.70-1.30); EST Glomerular Filtration Rate 53 mL/min (>60); Est Glom Filt Rate - Afr Amer 64 mL/min (>60); Globulin 3.3 g/dL (2.2-4.2); Glucose 97 mg/dL (74-106); PSA,Total- Diagnostic 1.73 ng/mL (0.0-4.0); Potassium 4.5 mmol/L (3.5-5.1); Protein, Total 6.9 g/dL (6.4-8.2); Sodium Level 141 mmol/L (136-145)
== END | disposition home or self-care (01) ==
LOC: LAB 15:30
PROVIDERS: PCP Internal Medicine; Visit Provider Urology
DX: C64.2 Malignant neoplasm of left kidney, except renal pelvis (principal); N40.0 Benign prostatic hyperplasia without lower urinary tract symptoms
CPT/HCPCS: 36415; 71046; 80053; 84153

== ENCOUNTER → 2022-06-23 | Outpatient (CLI) | payer MEDICARE, SELFPAY ==
[2022-06-23 12:33] LABS: Erythrocyte Sedimentation Rate 4 mm/hr (0-20)
[2022-06-23 12:35] LABS: Absolute Lymphocyte Count 0.75 X10^3/uL (0.83-4.51); Absolute Neutrophil Count 4.7 X10^3/uL (2.0-7.7); Basophil# 0.05 X10^3/uL; Basophil% 0.8 % (0-1); Eosinophil# 0.15 X10^3/uL; Eosinophils% 2.4 % (0-5); Hematocrit 45.5 % (40-54); Hemoglobin 15.1 g/dL (13.0-16.5); Lymphocyte # 0.75 X10^3/ul (0.83-4.51); Lymphocyte % 12.2 % (19-41); Mean Corp Hgb Conc 33.2 g/dL (32-36); Mean Corpuscular Hgb 31.3 pg (27.0-32.0); Mean Corpuscular Volume 94.4 fL (80-94); Mean Platelet Vol. 11.4 fl (6.2-12.0); Monocyte% 8.1 % (0-10); NRBC Flagged by Analyzer 0 % (0-5); Neutrophil # 4.69 X10^3/uL (2.7-7.7); Neutrophil % 76.2 % (47-70); Platelet Count 169 K/mm3 (150-450); RBC Distribution Width CV 14.8 % (11.6-14.6); RBC Distribution Width SD 51.6 fl (35.1-43.9); Red Blood Count 4.82 M/mm3 (4.6-6.2); White Blood Count 6.2 K/mm3 (4.4-11.0)
[2022-06-23 13:05] LABS: ALB/GLOB Ratio 1.1 RATIO (0.9-2.4); AST(SGOT) 13 U/L (15-37); Alanine Aminotransfer ALT/SGPT 11 U/L (16-61); Albumin, Serum 3.5 g/dL (3.2-5.0); Alkaline Phosphatase 99 U/L (45-117); Anion Gap 2 (5-15); BUN 21 mg/dL (7-18); BUN/Creat Ratio 14.5 RATIO (10-20); CRP < 2.90 mg/L (0.0-3.0); Calcium,Total 9.2 mg/dL (8.5-10.1); Chloride 108 mmol/L (98-107); Creatinine, Serum 1.45 mg/dL (0.70-1.30); EST Glomerular Filtration Rate 50 mL/min (>60); Est Glom Filt Rate - Afr Amer 61 mL/min (>60); Globulin 3.3 g/dL (2.2-4.2); Glucose 77 mg/dL (74-106); LDH 172 U/L (87-241); Potassium 4.3 mmol/L (3.5-5.1); Protein, Total 6.8 g/dL (6.4-8.2); Sodium Level 141 mmol/L (136-145)
[2022-06-24 16:09] LABS: Anti-Centromere B Ab <0.2 AI (0.0-0.9); Anti-Chromatin <0.2 AI (0.0-0.9); Anti-Jo <0.2 AI (0.0-0.9); Anti-Scleroderma-70 AB <0.2 AI (0.0-0.9); Endomysial Antibody IgA Negative (Negative); RNP Ab 0.5 AI (0.0-0.9); SJOGREN'S Anti-SS-A test < 0.2 AI (0.0-0.9); SJOGREN'S Anti-SS-B test < 0.2 AI (0.0-0.9); Smith Ab <0.2 AI (0.0-0.9)
[2022-06-24 20:31] LABS: Anti-dsDNA Ab <1 IU/mL (0-9)
[2022-06-24 20:32] LABS: Immunoglobulin A 176 mg/dL (61-437); t-Transglutaminase IgA <2 U/mL (0-3)
[2022-06-27 13:07] LABS: Cytoplasmic Ab (C-ANCA) <1:20 titer (Neg:<1:20); Immunoglobulin A 177 mg/dL (61-437); Immunoglobulin E 31 IU/mL (6-495); Immunoglobulin G 997 mg/dL (603-1613)
[2022-06-27 18:37] LABS: Immunoglobulin M 16 mg/dL (15-143)
== END | disposition home or self-care (01) ==
PROVIDERS: PCP Internal Medicine; Visit Provider Nurse Practitioner Adult Health
DX: R19.7 Diarrhea, unspecified (principal)
CPT/HCPCS: 80053; 82784; 82785; 83516; 83615; 85025; 85652; 86140; 86225; 86235; 86255; 86256

== ENCOUNTER → 2022-06-27 | Outpatient (CLI) | payer MEDICARE, SELFPAY ==
[2022-06-30 18:54] LABS: Calprotectin, Stool <16 ug/g (0-120)
== END | disposition home or self-care (01) ==
LOC: LABSPEC 09:10
PROVIDERS: PCP Internal Medicine; Referring Provider Nurse Practitioner Adult Health; Visit Provider Nurse Practitioner Adult Health
DX: R19.7 Diarrhea, unspecified (principal)
CPT/HCPCS: 83630; 83993; 87493

== ENCOUNTER 2022-08-10 11:37 | Emergency (ER) | payer MEDICARE, SELFPAY ==
[2022-08-10 11:38] VITALS: BP 170/83; PULSE 66; RESP 18; TEMP 36.5; O2SAT 93; BMI 27.8
--- NOTE | 2022-08-10 11:45 | ED.RN ---
DR. MONSON NOTIFIED OF PT SX ON TRIAGE, REPORTS PT WILL BE SEEN NEXT.
[2022-08-10 12:06] LABS: Bedside Glucose 97 mg/dL (74-106)
--- NOTE | 2022-08-10 12:12 | CT_ITS ---
STUDY: CT BRAIN WITHOUT CONTRAST REASON FOR EXAM: Male, 77 years old. Vertigo RADIATION DOSAGE (If Supplied By Facility): CTDIvol = ( 44.99 ) mGy, DLP = ( 863.60 ) mGycm TECHNIQUE: Transaxial CT imaging of the brain was performed without administration of intravenous contrast material. Individualized dose optimization techniques were used for this CT. COMPARISON: 04/29/2022 FINDINGS: Normal soft tissue structures. Normal calvarium. Normal size ventricles and extra-axial spaces for the patient''s age. There are areas of decreased attenuation within the white matter tracts of the supratentorial brain, consistent with microvascular disease changes. Normal basal ganglia and thalami. Normal brainstem. Normal cerebellum. There is no intracranial hemorrhage. There are no findings of an acute ischemic infarction. There is mucoperiosteal inflammatory disease of the paranasal sinuses consistent with mild chronic sinusitis. CT/Brain/Head without Contrast IMPRESSION: Chronic involutional changes of the brain. No acute hemorrhage Paranasal sinusitis Electronically Signed: Toni Christine MD at 12:59 EST ,
[2022-08-10 12:25] LABS: Absolute Lymphocyte Count 0.77 X10^3/uL (0.83-4.51); Absolute Neutrophil Count 5.4 X10^3/uL (2.0-7.7); Basophil# 0.03 X10^3/uL; Basophil% 0.5 % (0-1); Eosinophil# 0.06 X10^3/uL; Eosinophils% 0.9 % (0-5); Hematocrit 52.5 % (40-54); Hemoglobin 17.7 g/dL (13.0-16.5); Lymphocyte # 0.77 X10^3/ul (0.83-4.51); Lymphocyte % 11.6 % (19-41); Mean Corp Hgb Conc 33.7 g/dL (32-36); Mean Corpuscular Hgb 31.1 pg (27.0-32.0); Mean Corpuscular Volume 92.1 fL (80-94); Monocyte# 0.38 X10^3/uL; Monocyte% 5.7 % (0-10); NRBC Flagged by Analyzer 0 % (0-5); Neutrophil # 5.35 X10^3/uL (2.7-7.7); Platelet Count 143 K/mm3 (150-450); RBC Distribution Width CV 13.7 % (11.6-14.6); White Blood Count 6.6 K/mm3 (4.4-11.0)
[2022-08-10 12:37] LABS: Anion Gap 6 (5-15); BUN 19 mg/dL (7-18); BUN/Creat Ratio 13.3 RATIO (10-20); Chloride 107 mmol/L (98-107); Creatinine, Serum 1.43 mg/dL (0.70-1.30); EST Glomerular Filtration Rate 51 mL/min (>60); Est Glom Filt Rate - Afr Amer 62 mL/min (>60); Estimated Creatinine Clearance 44.67 ml/min; Glucose 94 mg/dL (74-106); Potassium 3.9 mmol/L (3.5-5.1); Sodium Level 140 mmol/L (136-145)
[2022-08-10 13:00] VITALS: BP 170/71; PULSE 57; RESP 21; O2SAT 100
--- NOTE | 2022-08-10 13:30 | EDS_ITS ---
HPI History of Present Illness Chief Complaint: Dizziness Detail of Chief Complaint: Dizziness, problems with balance Informant: patient and spouse/S.O. Onset/Context/Timing Onset: Today (0715 and later in the morning) and Yesterday (Last evening prior to going to bed) Context: Sudden Onset Timing: Intermittent Quality: Balance being off and movement Location: At home in the family room, bedroom this morning and bathroom this morning Current Severity: Gone Maximum Severity: Severe Worsened by: Upright position seems to make it worse Relieved by: Nothing [place] Associated Symptoms Associated Symptoms: Nausea without visual disturbance Narrative Narrative: Patient is a 77-year-old male with history of benign paroxysmal positional vertigo. He also has history of Parkinson's disease. He has had no change in his medications or dosages. He denies headache. He denies double vision, blurred vision or change in vision. He denies ringing's ears or decreased hearing. He denies trouble with speech or swallowing. He denies paresthesia, anesthesia or motor weakness. He denies cardiac or respiratory symptoms. He denied nausea or vomiting. He denied urologic symptoms. Prior similar symptoms: Yes (Paroxysmal benign positional vertigo) Recent Illness/Hospitalization: No PFSH PFS Medical History Abnormal weight loss Acute respiratory failure with hypoxia Ambulates with cane Anxiety Arthritis Arthritis Back pain BPH (benign prostatic hyperplasia) Cancer Cardiology follow-up encounter Change in bowel habit Chronic diarrhea Chronic respiratory failure with hypoxia Closed right hip fracture Depression Diarrhea Difficulty swallowing Excessive bleeding Expressive aphasia Fall Former smoker Heartburn History of Clostridium difficile infection History of echocardiogram History of pain when walking Hypercholesterolemia Hyperlipidemia Hypertension Hyperthyroidism Hypothyroidism IBS (irritable bowel syndrome) Leg cramps Melanoma in situ of unspecified part of face Osteoarthritis Osteoporosis Parkinsons disease Polycythemia Prostate disease Pulmonary embolism Shortness of breath on exertion Skin cancer Syncope Thyrotoxicosis Wears dentures Wears glasses Home Medications metoprolol tartrate 25 mg tablet 25 mg PO BID heart 04/15/21 [History Last Taken 04/29/22] potassium chloride 10 mEq capsule,extended release 10 meq PO BID supplement 04/15/21 [History Last Taken 04/29/22] cholecalciferol (vitamin D3) 25 mcg (1,000 unit) tablet (Vitamin D3) 25 mcg PO DAILY health maintenance 07/07/21 [History Last Taken 04/29/22] acetaminophen 325 mg tablet 650 mg PO Q6H PRN Pain 10/18/21 [History Last Taken 3 Days Ago ~04/26/22] carbidopa 25 mg-levodopa 100 mg tablet 1.5 tablet PO TID PARKINSONS 10/18/21 [History Last Taken 04/29/22] isosorbide mononitrate 30 mg tablet,extended release 24 hr 30 mg PO DAILY ANGINA 10/18/21 [History Last Taken 04/29/22] lorazepam 1 mg tablet (Ativan) 1 mg PO DAILY PRN Anxiety 12/01/21 [History Last Taken 02/15/22] paroxetine HCl 20 mg tablet 20 mg PO DAILY DEPRESSION 12/07/21 [History Last Taken 02/15/22] atorvastatin 20 mg tablet 20 mg PO QHS CHOLESTEROL 02/08/22 [History Last Taken 04/28/22] tamsulosin 0.4 mg capsule 0.4 mg PO QHS urine flow 02/08/22 [History Last Taken 04/28/22] methimazole 5 mg tablet 5 mg PO DAILY THYROID 04/29/22 [History Last Taken 04/29/22] lidocaine 5 % topical patch 2 patch topical DAILY 14 days #30 ea 05/01/22 [Rx Last Taken Unknown] diazepam 2 mg tablet (Valium) 2 mg PO TID 3 days #9 tabs 08/10/22 [Rx Last Taken Unknown] Allergy/AdvReac Type Severity Reaction Status Date / Time No Known Allergies Allergy Verified 08/10/22 11:37 Family History Father Lung cancer Mother Parkinsons Heart failure Surgical History H/O colonoscopy History of cardiac catheterization History of colon surgery History of nephrectomy, left History of rhinoplasty History of tonsillectomy History of total knee replacement (TKR) History of total right hip replacement History of transurethral resection of prostate reattachment of severed finger stoma reversal Social History household members: spouse housing: house 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al status: employed 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: [employer] pets and animals: Yes pets and animals: cat(s) and dog(s) Smoking Status: Former smoker quit date: 06/05/98 pack-years: 72 second hand exposure: No alcohol intake: never substance use type: does not use seatbelt use: always ROS ROS ED Constitutional Constitutional ED: Denies chills, fever(s), subjective, sweats or weight loss Eyes Eyes: Denies blurry vision, change in vision or diplopia ENT ENT ED: Denies ear pain, rhinorrhea or sore throat Cardiovascular Cardiovascular: Denies chest pain, palpitations or racing heartbeat Respiratory/Chest Respiratory/Chest: Denies cough, dyspnea or dyspnea on exertion Gastrointestinal Gastrointestinal: Denies abdominal pain, diarrhea, melena, nausea or vomiting Genitourinary Genitourinary ED: Denies dysuria, hematuria or urinary frequency Musculoskeletal Musculoskeletal: Denies arthralgias, back pain, myalgias or neck pain Neurologic Neurologic: Denies headache(s), paresthesias or weakness Endocrine Endocrinology: Denies cold intolerance or heat intolerance Hematologic/Lymphatic Hematologic/Lymphatic: Reports systems reviewed and no addt'l complaints, except as documented EXAM Physical Exam Const Vital Signs: 08/10/22 11:38 Temperature 97.7 F L Temperature Source Temporal Pulse Rate 66 Respiratory Rate 18 Blood Pressure 170/83 H Blood Pressure Mean 112 Pulse Ox 93 Oxygen Delivery Method Room Air Positive well nourished and well developed General Appearance ED: well developed and NAD; Negative for cyanotic, diaphoretic or pallor HEENT Reports moist mucous membranes HEENT Narrative: Head is atraumatic normocephalic. Ears normal. External auditory canal canal normal. TMs normal. Nares patent. Uvula midline. No deviation tongue or protrusion. Posterior pharynx unremarkable. Eyes PERRL and EOMs intact bilaterally Eyes Narrative: There is no nystagmus. There is no APD. General Eye ED: Negative for pale conjunctiva or scleral icterus Neck no lymphadenopathy, supple and no JVD Neck Narrative: No carotid bruits no Chest Wall inspection of chest normal and palpation of chest normal Resp normal respiratory effort and clear to auscultation bilaterally Cardio regular rate, regular rhythm, S1 normal heart sound, S2 normal heart sound and no murmurs GI normal to inspection, nondistended, normoactive bowel sounds, non-tender, non- distended and no masses; Negative for hepatosplenomegaly Auscultation: normoactive bowel sounds Palpation: soft Back/Spine no CVA tenderness Cervical Spine: Negative for cervical spine tenderness Thoracic Spine / Upper Back: Negative for thoracic spinal tenderness Lumbar Spine / Lower Back: Negative for lumbar spinal tenderness Extremity normal to inspection General Extremety ED: Negative for edema or tenderness General Extremity: Negative for edema Neuro oriented x3, CN's II-XII intact bilaterally and no sensory deficits noted Neuro Narrative: There is no dysmetria. Romberg with eyes open and closed revealed past-pointing on both sides with eyes closed. Proprioception was normal. Faraz-Hallpike maneuver was negative. The eye askew test was negative. The hint test was negative. Gait was observed and is not ataxic. He is able to walk on his heels and toes. Tandem gait was performed adequately. There was no stumbling or falling. DTR symmetric with no clonus or Babinski sign. He withdrew slightly to Babinski testing bile laterally. Patient has slight slurring of his words which may be due to dentures and is not abnormal according to the . 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 Sensorium / Orientation: alert Motor Exam: strength 5/5 throughout Psych mental status grossly normal Skin no rashes or lesions noted, no wounds and No skin turgor normal General Skin Exam: Negative for elasticity normal, jaundice or pallor MDM MDM MDM Narrative Medical decision making narrative: Differential diagnosis includes central vertigo versus peripheral vertigo versus vertigo due to Parkinson's disease. Based on his physical exam and history this does appear to have a positional component. With a normal neurologic exam and no evidence of any acute cerebellar findings and symptoms not being continuous makes this less likely to be a central process. This may represent vertigo due to his Parkinson's disease. History & Record Review Discussion w/independent historian: Patient Additional record(s) reviewed:: Prior inpatient record (Patient was seen several years ago for TIA. He was initially at Dr. Murray's office and sent in with neurologic symptoms which resolved.) Lab Data Attestation: I reviewed the patient's lab results. Lab results narrative: CBC is unremarkable. Basic metabolic panel was elevated creatinine 1.43. Labs: Laboratory Results - last 24 hr 08/10/22 08/10/22 08/10/22 11:28 11:28 11:43 WBC 6.6 RBC 5.70 Hgb 17.7 H Hct 52.5 MCV 92.1 MCH 31.1 MCHC 33.7 RDW Std Deviation 47.0 H RDW Coeff of Daisy 13.7 Plt Count 143 L MPV 11.0 Immature Gran % (Auto) 0.300 Neut % (Auto) 81.0 H Lymph % (Auto) 11.6 L Pierce % (Auto) 5.7 Eos % (Auto) 0.9 Baso % (Auto) 0.5 Absolute Neuts (auto) 5.4 Absolute Lymphs (auto) 0.77 L Nucleated RBC % 0 Sodium 140 Potassium 3.9 Chloride 107 Carbon Dioxide 27.0 Anion Gap 6 BUN 19 H Creatinine 1.43 H Estim Creat Clear Calc 44.67 Est GFR (MDRD) Af Amer 62 Est GFR (MDRD) Non-Af 51 L BUN/Creatinine Ratio 13.3 Glucose 94 Calcium 10.0 POC Glucose 97 Radiography Diagnostic Testing: Clinical Impression(s) from Imaging Studies Brain CT 08/10/22 12:12 IMPRESSION: Chronic involutional changes of the brain. No acute hemorrhage Paranasal sinusitis Electronically Signed: Toni Christine MD at 12:59 EST Reading Location ID and State: [facility] [place] , Service support , Treatment and Re-Evaluation :: Patient was informed of his CAT scan results and laboratory blood results. He presently is not vertiginous. Suspect this is benign paroxysmal positional vertigo. Patient was discharged with short course of Valium. Discharge Plan Triage Chief Complaint: Dizziness ED Provider: Akin Fox Dx/Rx/DC Orders Clinical Impression: Intermittent vertigo, Hypertension, Depression, Parkinsons disease, Hypercholesterolemia Instructions: ED Vertigo, Unspecified Prescriptions: New diazepam [Valium] 2 mg tablet 2 mg PO TID 3 Days Qty: 9 0RF No Action carbidopa-levodopa 25-100 mg tablet 1.5 tablet PO TID lorazepam [Ativan] 1 mg tablet 1 mg PO DAILY PRN (Reason: Anxiety) cholecalciferol (vitamin D3) [Vitamin D3] 25 mcg (1,000 unit) Tablet 25 mcg PO DAILY potassium chloride 10 mEq capsule, extended release 10 meq PO BID metoprolol tartrate 25 mg tablet 25 mg PO BID paroxetine HCl 20 mg tablet 20 mg PO DAILY MDD T isosorbide mononitrate 30 mg tablet extended release 24 hr 30 mg PO DAILY acetaminophen 325 mg Tablet 650 mg PO Q6H PRN (Reason: Pain) tamsulosin 0.4 mg capsule 0.4 mg PO QHS atorvastatin 20 mg tablet 20 mg PO QHS methimazole 5 mg tablet 5 mg PO DAILY lidocaine 5 % adhesive patch,medicated 2 patch topical DAILY 14 Days Qty: 30 0RF Rx Instructions: leave on most painful area for up to 12 hrs Primary Care Provider: Brandon Cantor Referrals: Brandon Cantor MD [Primary Care Provider] - 3-5 Days if not improving Disposition Disposition: Home, Self Care
[2022-08-10 14:00] VITALS: BP 143/65; PULSE 50; RESP 17; O2SAT 99
== END 2022-08-10 15:05 | disposition home or self-care (01) ==
PROVIDERS: Emergency Provider Emergency Medicine; PCP Internal Medicine; Visit Provider Emergency Medicine
DX: R42 Dizziness and giddiness (principal); G20 Parkinson's disease; I10 Essential (primary) hypertension; F32.A Depression, unspecified; E78.00 Pure hypercholesterolemia, unspecified; Z86.711 Personal history of pulmonary embolism; Z87.891 Personal history of nicotine dependence
CPT/HCPCS: 70450; 80048; 82962; 85025; 99285

== ENCOUNTER → 2022-09-20 | Outpatient (CLI) | payer MEDICARE, SELFPAY ==
[2022-09-20 16:03] LABS: T4 Free Direct 0.88 ng/dL (0.76-1.46); Thyroid Stim Hormone (TSH) 1.86 uIU/mL (0.358-3.74)
== END | disposition home or self-care (01) ==
LOC: MTLAB 13:44
PROVIDERS: PCP Internal Medicine; Referring Provider Internal Medicine Endocrinology, Diabetes & Metabolism; Visit Provider Internal Medicine Endocrinology, Diabetes & Metabolism
DX: E05.90 Thyrotoxicosis, unspecified without thyrotoxic crisis or storm (principal)
CPT/HCPCS: 36415; 84439; 84443; 84481

== ENCOUNTER → 2022-11-23 | Outpatient (CLI) | payer MEDICARE, SELFPAY | END | disposition home or self-care (01) | PROVIDERS: PCP Internal Medicine; Referring Provider Internal Medicine Gastroenterology; Visit Provider Internal Medicine Gastroenterology | DX: R76.8 Other specified abnormal immunological findings in serum (principal) ==

== ENCOUNTER → 2022-12-12 | Outpatient (CLI) | payer MEDICARE, SELFPAY ==
--- NOTE | 2022-12-12 12:43 | RAD_ITS ---
INDICATION: MALIGNANT NEOPLASM OF LEFT KIDNEY EXAMINATION/TECHNIQUE: X-RAY - XR Chest 2 Views COMPARISON: 06/17/2022 and 10/18/2021 chest radiographs. Findings: Frontal and lateral views of the chest. LUNG PARENCHYMA: No acute focal airspace disease or significant mass lesion. Medial left upper chest densely calcified granuloma. PLEURA: No pleural effusion. No pneumothorax. HEART/GREAT VESSELS: Cardiomediastinal silhouette is unremarkable. BONES: Osseous structures are unremarkable for age. RAD/Chest PA and Lateral IMPRESSION: Chest with no acute disease. Electronically Signed: Van Quinones MD at 23:32 EDT ,
[2022-12-12 13:25] LABS: AST(SGOT) 16 U/L (15-37); Alanine Aminotransfer ALT/SGPT 8 U/L (16-61); Albumin, Serum 3.4 g/dL (3.2-5.0); Alkaline Phosphatase 102 U/L (45-117); Anion Gap 0 (5-15); BUN 21 mg/dL (7-18); BUN/Creat Ratio 13.2 RATIO (10-20); Calcium,Total 9.2 mg/dL (8.5-10.1); Chloride 109 mmol/L (98-107); Creatinine, Serum 1.59 mg/dL (0.70-1.30); EST Glomerular Filtration Rate 45 mL/min (>60); Est Glom Filt Rate - Afr Amer 55 mL/min (>60); Globulin 3.3 g/dL (2.2-4.2); Glucose 80 mg/dL (74-106); PSA,Total- Diagnostic 3.61 ng/mL (0.0-4.0); Potassium 4.7 mmol/L (3.5-5.1); Protein, Total 6.7 g/dL (6.4-8.2); Sodium Level 139 mmol/L (136-145)
== END | disposition home or self-care (01) ==
PROVIDERS: PCP Internal Medicine; Referring Provider Urology; Visit Provider Urology
DX: C64.2 Malignant neoplasm of left kidney, except renal pelvis (principal); N40.0 Benign prostatic hyperplasia without lower urinary tract symptoms
CPT/HCPCS: 36415; 71046; 80053; 84153

== ENCOUNTER 2023-02-02 10:05 | Day surgery (SDC) | payer MEDICARE, SELFPAY ==
[2023-02-02] VITALS (7 sets, daily range): BP systolic 90–139; BP diastolic 50–61; PULSE 53–55; RESP 16; TEMP 36.1–36.6; O2SAT 88–94; BMI 27.8
[2023-02-02] MEDS: Lactated Ringers 1,000 ML 15 ML IV (11:02)
--- NOTE | 2023-02-02 11:15 | EGD_PTH ---
PATIENT: MARTA OLIVIA LOC: EN U#:[id number] AGE/SX: 77/M ROOM: RE02/02/[address]: Dr. James Obrien DO : 1945 BED: DIS: 02/02/2023 SPEC #: [id number] RECD: 02/02/23 17:12 STATUS: RAY REPeg #: [id number] BRITTNEY: 02/02/23 11:[address]: James Obrien DEPT: SURGICAL PATHOLOGY RECD BY: Lili Elias ENTERED: 02/03/23 08:54 SP TYPE: EGD BIOPSY OT DR: Dr. Brandon Cantor MD Tissues: A - Duodenum, NOS B - Gastric mucous membrane C - Esophagus, NOS Procedures: Special Stain Group II Surgery Specimen Level IV Alcian Blue/PAS (control) HEADER OPERATION: EGD with biopsies PRE-OP DIAGNOSIS: Diarrhea, dysphagia TISSUE SUBMITTED: A - Duodenum biopsy, B - Gastric antrum biopsy for H. pylori and path, C - Distal esophagus biopsy MICROSCOPIC DIAGNOSIS A. Duodenum, biopsy: Gastric metaplasia and associated mild chronic inflammation. B. Gastric antrum, biopsy: Mild chronic gastritis. See comment. C. Distal esophagus, biopsy: Gastroesophageal junctional mucosa with chronic inflammation. Focal goblet cell metaplasia. No evidence of high-grade dysplasia. Focal changes of reflux. See comment. AM:ra 02/07/2023 AM:ra 02/08/2023 COMMENT B. The results of immunohistochemistry for Helicobacter pylori will be reported separately ([id number]). C. Immunohistochemistry ([id number]) for P53 and Ki-67 will be performed and results will be reported separately. Indefinite for low-grade dysplasia. Alcian blue/PAS stain with matched control supports the above diagnosis. MICROSCOPIC DESCRIPTION Slides are reviewed. GROSS DESCRIPTION A - Received in fixative is one container labeled with the patient's name and designated duodenum biopsy. The specimen consists of multiple irregular fragments of light brandt soft tissue that in aggregate measure 1.0 x 0.5 x 0.1 cm. The specimen is totally submitted in one cassette. B - Received in fixative is one container labeled with the patient's name and designated gastric antrum biopsy. The specimen consists of multiple irregular fragments of light brandt soft tissue that in aggregate measure 1.0 x 0.3 x 0.1 cm. The specimen is totally submitted in one cassette. C - Received in fixative is one container labeled with the patient's name and designated distal esophagus biopsy. The specimen consists of multiple irregular fragments of light brandt soft tissue that in aggregate measure 1.5 x 0.6 x 0.1 cm. The specimen is totally submitted in one cassette. / SJ:rg 02/03/2023 TC:3 CPT: 84571 x3, 86526
--- NOTE | 2023-02-02 11:15 | EGD_PTH ---
PATIENT: MARTA OLIVIA LOC: EN U#:[id number] AGE/SX: 77/M ROOM: RE02/02/[address]: Dr. James Obrien DO : 1945 BED: DIS: 02/02/2023 SPEC #: [id number] RECD: 02/02/23 17:12 STATUS: RAY REPeg #: [id number] BRITTNEY: 02/02/23 11:[address]: James Obrien DEPT: SURGICAL PATHOLOGY RECD BY: Lili Elias ENTERED: 02/03/23 08:54 SP TYPE: EGD BIOPSY OT DR: Dr. Brandon Cantor MD Tissues: A - Duodenum, NOS B - Gastric mucous membrane C - Esophagus, NOS Procedures: Special Stain Group II Surgery Specimen Level IV Alcian Blue/PAS (control) HEADER OPERATION: EGD with biopsies PRE-OP DIAGNOSIS: Diarrhea, dysphagia TISSUE SUBMITTED: A - Duodenum biopsy, B - Gastric antrum biopsy for H. pylori and path, C - Distal esophagus biopsy MICROSCOPIC DIAGNOSIS A. Duodenum, biopsy: Gastric metaplasia and associated mild chronic inflammation. B. Gastric antrum, biopsy: Mild chronic gastritis. See comment. C. Distal esophagus, biopsy: Gastroesophageal junctional mucosa with chronic inflammation. Focal goblet cell metaplasia. No evidence of dysplasia. Focal changes of reflux. See comment. AM:ra 02/07/2023 COMMENT B. The results of immunohistochemistry for Helicobacter pylori will be reported separately ([id number]). C. Immunohistochemistry ([id number]) for P53 and Ki-67 will be performed and results will be reported separately. Alcian blue/PAS stain with matched control supports the above diagnosis. MICROSCOPIC DESCRIPTION Slides are reviewed. GROSS DESCRIPTION A - Received in fixative is one container labeled with the patient's name and designated duodenum biopsy. The specimen consists of multiple irregular fragments of light brandt soft tissue that in aggregate measure 1.0 x 0.5 x 0.1 cm. The specimen is totally submitted in one cassette. B - Received in fixative is one container labeled with the patient's name and designated gastric antrum biopsy. The specimen consists of multiple irregular fragments of light brandt soft tissue that in aggregate measure 1.0 x 0.3 x 0.1 cm. The specimen is totally submitted in one cassette. C - Received in fixative is one container labeled with the patient's name and designated distal esophagus biopsy. The specimen consists of multiple irregular fragments of light brandt soft tissue that in aggregate measure 1.5 x 0.6 x 0.1 cm. The specimen is totally submitted in one cassette. / PERI:ra 02/03/2023 TC:3 CPT: 14291 x3, 70015
--- NOTE | 2023-02-02 11:15 | IMM_PTH ---
PATIENT: MARTA OLIVIA LOC: EN U#:[id number] AGE/SX: 77/M ROOM: RE02/02/[address]: Dr. James Obrien DO : 1945 BED: DIS: 02/02/2023 SPEC #: [id number] RECD: 02/03/23 13:58 STATUS: RAY REQ #: [id number] BRITTNEY: 02/02/23 11:[address]: James Obrien DEPT: IMMUNOHISTOCHEMISTRY RECD BY: Latoya Bill ENTERED: 02/03/23 13:59 SP TYPE: IMMUNO OTHR DR: Dr. Brandon Cantor MD Tissues: B - Stomach, NOS C - Esophagus, NOS Procedures: H Pylori (initial) P53 (initial) KI-67 (add) MOC-31 (add) PHYSICIAN & INSTITUTION [facility] [phone] SPECIMEN INFORMATION: Tissue Source: B - Gastric antrum, C - Distal esophagus Clinical Info: Diarrhea, dysphagia Specimen Number: [id number] B & C CPT code: 34486 x2, 58636 x2 METHODOLOGY: Deparaffinized sections of prefer/formalin-fixed tissue or PAP/DQ stained slides are incubated with monoclonal/polyclonal antibodies/oligonucleotide probes. Localization is made via biotin free immunoperoxidase method. Appropriate controls are performed and reacted as expected. Results on target cell population are indicated in the following table: RESULTS: ANTIBODY / CLONE RESULT Block B H Pylori (polyclonal) negative Block C P53 (DO-7) positive, wild type Ki-67 (30-9) positive, moderate MOC-31 (4561) positive These tests were developed and their performance characteristics determined by [facility]. They may not have been cleared or approved by the U.S. Food and Drug Administration. The FDA has determined that such clearance or approval is not necessary. The above immunohistochemical/dualISH markers are ordered and reviewed by the Pathologist. INTERPRETATION: B. Gastric antrum, biopsy: Negative for Helicobacter pylori organisms. C. Distal esophagus, biopsy: Indefinite for low-grade dysplasia. Case has been reviewed in consultation with Dr. Baxter who concurs with the above diagnosis. IDC:PERI AM:ra 02/08/2023
--- NOTE | 2023-02-02 11:28 | HP.PCM_ITS ---
History and Physical Date of Admission: 02/02/23 77 M who presents to the office today for Rohan Hernandes 12.45? [facility] ED 11.14.21 with suspicion of repeat pseudomembranous enterocolitis.? ? Prior imaging:? CT abd/pel 01.06.22?for abdominal pain/ renal cancer finding multiple gallstones; multiple hypodensities of liver; evidence of prior small bowel surgery; renal mass, recommend MRI/CT.? ? *BGI established 03.01.22 with watery loose stools, abdominal cramping and weight loss for a year. Weight loss largely r/t several hospitalizations for kidney, prostate and knee surgeries; since these have stabilized weight has been trending upward.? CDI history 2014+, +, negative. ? Colonoscopy 04.26.22?eight sessile TA polyps; end-to-end colo-colonic anastomosis, patent; congested mucosa of colon; extensive stool in cecum; TI moderate stenosis, balloon 15mm, resolved; diverticulosis; melanosis coli on pathology.? OV 05.10.22 loose stool resolved following polypectomy; one episode which he feels was r/t excessive chocolate.? OV 06.23.22 with return of loose stools three times a week with cramping and nocturnal presence. Notes some dietary triggers.?Biochemical?CBC, ESR, CMP, LDH, CRP, GAME, NICOLE comp, celiac without pertinent abnormality.?AST L13-ALT [id number], apANCA H1:160?Stool?calprotectin, lactoferrin, C.difficile WNL? OV 09.02.22 with spontaneous improvement of loose stools; though continues with nocturnal cramping and loose stools several times a week.?Start Lomotil.? Contact 09.27.22 with ongoing cramping,?start dicyclomine.? Contact 10.14.22 for update; reports ongoing loose stools, particularly nocturnal. Reports 18inches of bowel removed to address benign tumor. Has increased dicyclomine to 20mg QHS.?Start colestipol.?Call back in two weeks with update.? Contact 10.28.22 increase colestipol to 2g QHS.? Contact 11.16.22 Bowels have been fluctuating between soft stools with intermittent episodes of loose stools; this is improved from previously, continue colestipol 2g QHS.?Biochemical?Crohn?s (apANCA, Marvin), Vasculitis profile abnormality? OV 12.28.22 still having diarrhea, says bms b/t 12a-7a, none during the day. can have just 1 or several, wakes him up. out of the dicyclomine-- has been sort of helpful. the colestipol he stopped because it kept getting stuck- too hard to swallow. notes lots of gas, can cause pain at times. just really not liking the frequent bms at night. I have examined the patient and the H&P has been reviewed. There are no clinical changes since date of exam.
--- NOTE | 2023-02-02 11:55 | OP.CCLET_ITS ---
02/02/2023 Brandon Cantor [address] [place] [address] Re : Upper GI endoscopy procedure for Rohan Hernandes Dear Dr. Cantor This procedure was performed on January. My impressions and recommendations are as follows: Impressions : - Grade I esophageal varices. - LA Grade B reflux esophagitis with no bleeding. Biopsied. - Moderate Schatzki ring. Dilated. - A small amount of food (residue) in the stomach. - Erythematous mucosa in the gastric fundus and antrum. Biopsied. - Gastric stenosis was found at the pylorus. - Duodenal deformity. Biopsied. Recommendations : - Discharge patient to home. - Resume previous diet. - Continue present medications. - Await pathology results. - Repeat upper endoscopy in 4 months for surveillance. My findings are described in the full procedure note, which is enclosed. If I can be of further assistance, please feel free to contact me at . Sincerely, James Obrien DO 02/02/2023 11:54:49 AM This report has been signed electronically.
--- NOTE | 2023-02-02 11:55 | OP.EGD_ITS ---
Patient Name: Rohan Hernandes Procedure Date: 02/02/2023 11:25 AM Date of : 1945 Age: 77 Procedure: Upper GI endoscopy Indications: Epigastric abdominal pain, Functional Dyspepsia, Dysphagia Providers: James Obrien DO Referring MD: Brandon Cantor Medicines: Monitored Anesthesia Care Patient Profile: This is a 77 year old male. Refer to note in patient chart for documentation of history and physical. Patient has symptoms of chronic abdominal cramping, chronic epigastric abdominal pain and chronic dysphagia. Complications: No immediate complications. Procedure: Pre-Anesthesia Assessment: - Prior to the procedure, a History and Physical was performed, and patient medications and allergies were reviewed. The risks and benefits of the procedure and the sedation options and risks were discussed with the patient. All questions were answered and informed consent was obtained. Patient identification and proposed procedure were verified by the physician in the pre-procedure area. Mental Status Examination: alert and oriented. Airway Examination: normal oropharyngeal airway and neck mobility. Respiratory Examination: clear to auscultation. CV Examination: normal. Prophylactic Antibiotics: The patient does not require prophylactic antibiotics. Prior Anticoagulants: The patient has taken no anticoagulant or antiplatelet agents. ASA Grade Assessment: III - A patient with severe systemic disease. After reviewing the risks and benefits, the patient was deemed in satisfactory condition to undergo the procedure. The anesthesia plan was to use monitored anesthesia care (MAC). Immediately prior to administration of medications, the patient was re-assessed for adequacy to receive sedatives. The heart rate, respiratory rate, oxygen saturations, blood pressure, adequacy of pulmonary ventilation, and response to care were monitored throughout the procedure. The physical status of the patient was re-assessed after the procedure. After obtaining informed consent, the endoscope was passed under direct vision. Throughout the procedure, the patient's blood pressure, pulse, and oxygen saturations were monitored continuously. The gastroscope was introduced through the mouth, and advanced to the second part of duodenum. The upper GI endoscopy was accomplished without difficulty. The patient tolerated the procedure well. Scope In: 11:38:16 AM Scope Out: 11:44:47 AM Total Procedure Duration Time 0 hours 6 minutes 31 seconds Findings: Grade I varices were found in the upper third of the esophagus. They were 5 mm in largest diameter. LA Grade B (one or more mucosal breaks greater than 5 mm, not extending between the tops of two mucosal folds) esophagitis with no bleeding was found 37 to 39 cm from the incisors. Biopsies were taken with a cold forceps for histology. Verification of patient identification for the specimen was done. Estimated blood loss was minimal. A moderate Schatzki ring was found at the gastroesophageal junction. A guidewire was placed and the scope was withdrawn. Dilation was performed with a Savary dilator with no resistance at 45 Fr. The dilation site was examined and showed moderate mucosal disruption. Estimated blood loss was minimal. A small amount of food (residue) was found in the gastric body. Patchy mildly erythematous mucosa without bleeding was found in the gastric fundus and in the gastric antrum. Biopsies were taken with a cold forceps for histology. Verification of patient identification for the specimen was done. Estimated blood loss was minimal. Biopsies were taken with a cold forceps for Helicobacter pylori testing. Verification of patient identification for the specimen was done. Estimated blood loss was minimal. A benign-appearing, intrinsic mild stenosis was found at the pylorus. This was traversed. A moderate extrinsic deformity was found in the duodenal bulb and in the first portion of the duodenum. Biopsies were taken with a cold forceps for histology. Verification of patient identification for the specimen was done. Estimated blood loss was minimal. Impression: - Grade I esophageal varices. - LA Grade B reflux esophagitis with no bleeding. Biopsied. - Moderate Schatzki ring. Dilated. - A small amount of food (residue) in the stomach. - Erythematous mucosa in the gastric fundus and antrum. Biopsied. - Gastric stenosis was found at the pylorus. - Duodenal deformity. Biopsied. Recommendation: - Discharge patient to home. - Resume previous diet. - Continue present medications. - Await pathology results. - Repeat upper endoscopy in 4 months for surveillance. Procedure Code(s): --- Professional --- 41683, Esophagogastroduodenoscopy, flexible, transoral; with insertion of guide wire followed by passage of dilator(s) through esophagus over guide wire 25267, 59,51, Esophagogastroduodenoscopy, flexible, transoral; with biopsy, single or multiple CPT copyright 2021 [employer]. All rights reserved. The codes documented in this report are preliminary and upon tire and tube repairer review may be revised to meet current compliance requirements. James Obrien DO 02/02/2023 11:54:49 AM This report has been signed electronically. Number of Addenda: 0 Note Initiated On: 02/02/2023 11:25 AM
[2023-02-07 17:07] LABS: Gastrin, Serum 26 pg/mL (0-115)
== END 2023-02-02 13:03 | disposition home or self-care (01) ==
LOC: EN 10:06 → AC 10:34
PROVIDERS: PCP Internal Medicine; Referring Provider Internal Medicine; Visit Provider Internal Medicine Gastroenterology
PROC: 0DJ08ZZ Inspection of Upper Intestinal Tract, Via Natural or Artificial Opening Endoscopic (ICD-10-PCS; CPT 43235; principal; 2023-02-02 11:10)
DX: I85.00 Esophageal varices without bleeding (principal); I50.30 Unspecified diastolic (congestive) heart failure; I11.0 Hypertensive heart disease with heart failure; K29.50 Unspecified chronic gastritis without bleeding; K21.00 Gastro-esophageal reflux disease with esophagitis, without bleeding; K31.89 Other diseases of stomach and duodenum; F41.9 Anxiety disorder, unspecified; N40.0 Benign prostatic hyperplasia without lower urinary tract symptoms; F32.A Depression, unspecified; E55.9 Vitamin D deficiency, unspecified; Z87.891 Personal history of nicotine dependence; Z79.899 Other long term (current) drug therapy; Z79.82 Long term (current) use of aspirin
CPT/HCPCS: 43248; 43239; 36415; 81002; 82941; 88305; 88313; 88341; 88342; J7120; J2405

== ENCOUNTER → 2023-02-21 | Outpatient (CLI) | payer MEDICARE, SELFPAY ==
--- NOTE | 2023-02-21 11:37 | NM_ITS ---
CLINICAL: 77-year-old male with history of abnormal EGD. SEMI-SOLID PHASE 99m Tc SULFUR COLLOID GASTRIC EMPTYING STUDY COMPARISON: None available FINDINGS: The patient was administered 1.0 mCi of 99m Tc sulfur colloid mixed with oatmeal and consumed per os. Image acquisitions in the anterior-posterior projections were obtained for 60 minutes. There is prompt visualization of the stomach. There is no gastroesophageal reflux identified. First order kinetics are maintained throughout the duration of the acquisitions. The T ? linear fit was extrapolated to be 242.4 minutes, (Normal: 12-56 minutes). NM/Gastric Emptying Study IMPRESSION: 1. ABNORMAL 99m Tc sulfur colloid semi-solid phase (oatmeal) gastric emptying imaging examination. A. There is delayed semi-solid phase gastric emptying compared to normal controls with maintained first order kinetics throughout all components of the examination. (Smith et al, J Nucl Med Tech 38: 186, 2010). Electronically Signed: Niranjan Young DO at 22:45 EDT ,
== END | disposition home or self-care (01) ==
LOC: NM 11:37
PROVIDERS: PCP Internal Medicine; Referring Provider Internal Medicine Gastroenterology; Visit Provider Internal Medicine Gastroenterology
DX: K31.84 Gastroparesis (principal); R63.4 Abnormal weight loss
CPT/HCPCS: 78264; A9541

== ENCOUNTER → 2023-03-09 | Outpatient (CLI) | payer MEDICARE, SELFPAY ==
[2023-03-09 15:50] LABS: Free T3 2.1 pg/mL (2.18-3.98); T4 Free Direct 0.85 ng/dL (0.76-1.46); Thyroid Stim Hormone (TSH) 2.09 uIU/mL (0.358-3.74)
== END | disposition home or self-care (01) ==
LOC: LAB 15:00
PROVIDERS: PCP Internal Medicine; Referring Provider Internal Medicine Endocrinology, Diabetes & Metabolism; Visit Provider Internal Medicine Endocrinology, Diabetes & Metabolism
DX: E05.90 Thyrotoxicosis, unspecified without thyrotoxic crisis or storm (principal); I10 Essential (primary) hypertension
CPT/HCPCS: 36415; 84439; 84443; 84481

== ENCOUNTER → 2023-04-05 | Outpatient (CLI) | payer MEDICARE, SELFPAY ==
--- NOTE | 2023-04-05 13:50 | CDU_ITS ---
Reason For Study: Carotid stenosis Rt. Velocities/BP Lt. Velocities/BP Prox CCA 69.2/6.9 cm/sec. Prox CCA 99.8/7.7 cm/sec. Mid CCA 78.7/9.7 cm/sec. Mid CCA 97.4/6.5 cm/sec. Dist CCA 73/7.8 cm/sec. Dist CCA 87.6/9 cm/sec. Prox ICA 47.6/6.9 cm/sec. Prox ICA 50.7/9 cm/sec. Mid ICA 61.9/10.2 cm/sec. Mid ICA 87.6/18.8 cm/sec. Dist ICA 78.4/14.6 cm/sec. Dist ICA 77.7/13.9 cm/sec. Rt. ICA/CCA = 1.07. Lt. ICA/CCA = 0.90. Prox ECA 104.7/3.6 cm/sec. Prox ECA 137.5/4.2 cm/sec. Rt. Vert. 47.6/8 cm/sec. Lt. Vert. 54.4/5.3 cm/sec. Right Extracranial There is heterogeneous, irregular atherosclerotic plaque noted in the right common carotid artery. There is heterogeneous, irregular atherosclerotic plaque noted in the right internal carotid artery. There is heterogeneous, irregular atherosclerotic plaque noted in the right external carotid artery. Antegrade flow is noted in the right vertebral artery. Left Extracranial There is homogeneous, smooth atherosclerotic plaque noted in the left common carotid artery. There is heterogeneous, irregular atherosclerotic plaque noted in the left internal carotid artery. There is intimal thickening but no significant atherosclerotic plaque noted in the left external carotid artery. Antegrade flow is noted in the left vertebral artery. Procedure Carotid Duplex 80136. This is a Carotid Duplex examination using B-mode, color flow and specral Doppler. Exam performed in department. VL/Carotid Duplex Ultrasound Interpretation Summary Irregular plaque at the proximal right internal carotid artery with less than 5 0% stenosis. Less than 50% stenosis right external carotid artery Minimal irregular plaque at the proximal left internal carotid artery with less than 50% stenosis Less than 50% stenosis left external carotid artery Patent and antegrade vertebral arteries bilaterally No significant change from the previous examination of March 29, 2022 Ordering Physician: William Jimenes Referring Physician: Brandon Cantor M.D. Performed By: Gracia Valera RVT
== END | disposition home or self-care (01) ==
PROVIDERS: PCP Internal Medicine; Referring Provider Surgery; Visit Provider Surgery
DX: I65.22 Occlusion and stenosis of left carotid artery (principal)
CPT/HCPCS: 93880

== ENCOUNTER 2023-04-19 09:34 | Day surgery (SDC) | payer MEDICARE, SELFPAY ==
[2023-04-19] VITALS (7 sets, daily range): BP systolic 102–166; BP diastolic 51–65; PULSE 52–60; RESP 14–20; TEMP 36.9–37; O2SAT 88–95; BMI 28.3
[2023-04-19] MEDS: Lactated Ringers 1,000 ML 15 ML IV (10:01)
--- NOTE | 2023-04-19 10:07 | PCM.HP.STD ---
HPI - General General Date of Admission: 04/19/23 Date of Service: 04/19/23 HPI Narrative MATRA OLIVIA, is a 77 M who presents for an upper endoscopy regarding esophageal dysphagia. [facility] ED 11.14.21 with suspicion of repeat pseudomembranous enterocolitis.? ? Prior imaging:? CT abd/pel 01.06.22?for abdominal pain/ renal cancer finding multiple gallstones; multiple hypodensities of liver; evidence of prior small bowel surgery; renal mass, recommend MRI/CT.? ? *BGI established 03.01.22 with watery loose stools, abdominal cramping and weight loss for a year. Weight loss largely r/t several hospitalizations for kidney, prostate and knee surgeries; since these have stabilized weight has been trending upward.? CDI history 2014+, +, negative. ? Colonoscopy 04.26.22?eight sessile TA polyps; end-to-end colo-colonic anastomosis, patent; congested mucosa of colon; extensive stool in cecum; TI moderate stenosis, balloon 15mm, resolved; diverticulosis; melanosis coli on pathology.? OV 05.10.22 loose stool resolved following polypectomy; one episode which he feels was r/t excessive chocolate.? OV 06.23.22 with return of loose stools three times a week with cramping and nocturnal presence. Notes some dietary triggers.?Biochemical?CBC, ESR, CMP, LDH, CRP, GAME, NICOLE comp, celiac without pertinent abnormality.?AST L13-ALT D72-VB02, apANCA H1:160?Stool?calprotectin, lactoferrin, C.difficile WNL? OV 3 with spontaneous improvement of loose stools; though continues with nocturnal cramping and loose stools several times a week.?Start Lomotil.? Contact 09.27.22 with ongoing cramping,?start dicyclomine.? Contact 10.14.22 for update; reports ongoing loose stools, particularly nocturnal. Reports 18inches of bowel removed to address benign tumor. Has increased dicyclomine to 20mg QHS.?Start colestipol.?Call back in two weeks with update.? Contact 10.28.22 increase colestipol to 2g QHS.? Contact 11.16.22 Bowels have been fluctuating between soft stools with intermittent episodes of loose stools; this is improved from previously, continue colestipol 2g QHS.?Biochemical?Crohn?s (apANCA, Marvin), Vasculitis profile abnormality? OV 12.28.22 still having diarrhea, says bms b/t 12a-7a, none during the day. can have just 1 or several, wakes him up. out of the dicyclomine-- has been sort of helpful. the colestipol he stopped because it kept getting stuck- too hard to swallow. notes lots of gas, can cause pain at times. just really not liking the frequent bms at night. [facility] Medical History (Updated 04/19/23 @ 10:[address] Ramirez Friend, DO) Abnormal weight loss Acute respiratory failure with hypoxia Ambulates with cane Anxiety Arthritis Back pain BPH (benign prostatic hyperplasia) Cancer Cardiology follow-up encounter Change in bowel habit Chronic cough Chronic diarrhea Chronic respiratory failure with hypoxia Closed right hip fracture Depression Diarrhea Difficulty swallowing Excessive bleeding Expressive aphasia Fall Former smoker Heartburn History of Clostridium difficile infection History of echocardiogram History of pain when walking Hypercholesterolemia Hyperlipidemia Hypertension Hyperthyroidism Hypothyroidism IBS (irritable bowel syndrome) Leg cramps Melanoma in situ of unspecified part of face Osteoarthritis Osteoporosis Parkinsons disease Polycythemia Prostate disease Pulmonary embolism Shortness of breath on exertion Skin cancer Syncope Thyrotoxicosis Wears dentures Wears glasses Home Medications metoprolol tartrate 25 mg tablet 25 mg PO DAILY heart 04/15/21 [History Last Taken 04/18/23 09:00] potassium chloride 10 mEq capsule,extended release 10 meq PO BID supplement 04/15/21 [History Last Taken 04/29/22] cholecalciferol (vitamin D3) 25 mcg (1,000 unit) tablet (Vitamin D3) 25 mcg PO DAILY health maintenance 07/07/21 [History Last Taken 04/29/22] carbidopa 25 mg-levodopa 100 mg tablet 1 tab PO TID PARKINSONS 10/18/21 [History Last Taken 04/19/23] isosorbide mononitrate 30 mg tablet,extended release 24 hr 30 mg PO DAILY ANGINA 10/18/21 [History Last Taken 04/29/22] lorazepam 1 mg tablet (Ativan) 1 mg PO DAILY PRN Anxiety 12/01/21 [History Last Taken 02/15/22] paroxetine HCl 20 mg tablet 20 mg PO DAILY DEPRESSION 12/07/21 [History Last Taken 02/15/22] atorvastatin 20 mg tablet 20 mg PO QHS CHOLESTEROL 02/08/22 [History Last Taken 04/28/22] tamsulosin 0.4 mg capsule 0.4 mg PO QHS urine flow 02/08/22 [History Last Taken 04/28/22] vitamin B12 0.5 mg-folic acid 1 mg tablet 1 tab PO DAILY 01/31/23 [History Last Taken Unknown] pantoprazole 40 mg tablet,delayed release 40 mg PO DAILY 30 days #30 tabs 02/28/23 [Rx Last Taken Unknown] methimazole 5 mg tablet 5 mg PO DAILY THYROID #30 tabs 03/09/23 [Rx Last Taken Unknown] Allergy/AdvReac Type Severity Reaction Status Date / Time No Known Allergies Allergy Verified 04/17/23 11:44 Family History Father Lung cancer Mother Parkinsons Heart failure Surgical History (Updated 04/17/23 @ 11:49 by Sonam Monsivais) H/O colonoscopy History of cardiac catheterization History of colon surgery History of esophagogastroduodenoscopy (EGD) History of nephrectomy, left History of rhinoplasty History of tonsillectomy History of total knee replacement (TKR) History of total right hip replacement History of transurethral resection of prostate Hx of colonoscopy reattachment of severed finger stoma reversal Social History household members: spouse housing: house 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al status: employed 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: [employer] pets and animals: Yes pets and animals: cat(s) and dog(s) Smoking Status: Former smoker quit date: 06/05/98 pack-years: 72 second hand exposure: No alcohol intake: never substance use type: does not use seatbelt use: always ROS ROS Narrative Constitutional: Denies: Anorexia, Chills, Fever, Night Sweats, Weight Change Eyes: Denies: Blurred vision, Cataracts, Conjunctivae Inflammation, Pain, Redness, Vision Change HEENT: Denies: Difficulty Hearing, Difficulty Swallowing, Head Aches, Hearing Changes, Sinus Congestion, Sinus Drainage Cardiovascular: Denies: Chest Pain, Orthopnea, Palpitations Respiratory: Denies: Cough, Shortness of breath at rest, Sputum production Gastrointestinal: Denies: Abdominal Pain, Nausea, Vomiting Genitourinary: Denies: Dysuria Musculoskeletal: Severe right flank pain denies: Joint Pain, Joint stiffness, Joint swelling, Joint Tenderness Skin: Denies: Rash, Wounds Neurological: Denies: Numbness, Tingling, Focal weakness Vital Signs Vital Signs Vital Signs: 04/19/23 10:02 04/19/23 10:02 Temperature 98.6 F Temperature Source Temporal Pulse Rate 60 Respiratory Rate 18 Respiratory Pattern Normal Blood Pressure 166/65 H Blood Pressure Mean 98 Blood Pressure Source Monitor Blood Pressure Position Semi-Fowlers Blood Pressure Location Right Arm Pulse Ox 95 Oxygen Delivery Method Room Air Weight Weight: 197 lb Body Mass Index (BMI) 28.3 Physical Exam Narrative Physical exam: General: Alert, Oriented x3, Cooperative, looks more comfortable HEENT: Atraumatic Oral: Moist Mucosa Neck: Supple Lungs: Diminished to auscultation Cardiovascular: HS I+II, regular, no murmurs Abdomen: Bowel Sounds Present, Soft, improved tenderness on palpation of the right flank and surrounding muscular area Extremities: No edema Skin: No rashes, No breakdown Neurological: Grossly intact Psych/Mental Status: Appropriate Assessment & Plan Assessment/Plan (1) Pyloric stenosis: PLAN: He will undergo an upper endoscopy with Botox injection into the pyloric sphincter and possibly into the distal esophagus. He was explained alternatives, risk, benefits including understanding bleeding, infection, sepsis, perforation, need for emergent . He will have an ASA of 3.
[2023-04-19] MEDS: 0.9% Saline Lock 10 ML Syringe IV (10:43)
[2023-04-19] MEDS: 0.9% Normal Saline (Pres. free 10 ML Vial (10:43)
[2023-04-19] MEDS: Botulinum Toxin A 100 Units Vial IJ (10:43)
--- NOTE | 2023-04-19 10:54 | OP.CCLET_ITS ---
04/19/2023 Brandon Cantor [address] [place] [address] Re : Upper GI endoscopy procedure for Rohan Hernandes Dear Dr. Cantor This procedure was performed on Wednesday, April 19, 2023. My impressions and recommendations are as follows: Impressions : - LA Grade A reflux esophagitis with no bleeding. - Small hiatal hernia. - Gastric stenosis was found at the pylorus. Dilated. - A small amount of food (residue) in the stomach. Injected with botulinum toxin. - No gross lesions in the first portion of the duodenum. - No specimens collected. Recommendations : - Discharge patient to home. - Resume previous diet. - Continue present medications. My findings are described in the full procedure note, which is enclosed. If I can be of further assistance, please feel free to contact me at . Sincerely, James Obrien, 04/19/2023 10:53:36 AM This report has been signed electronically.
--- NOTE | 2023-04-19 10:54 | OP.EGD_ITS ---
Patient Name: Rohan Hernandes Procedure Date: 04/19/2023 10:34 AM Date of : 1945 Age: 77 Procedure: Upper GI endoscopy Indications: Epigastric abdominal pain, Functional Dyspepsia Providers: James Obrien DO Referring MD: James Obrien DO Medicines: Monitored Anesthesia Care Patient Profile: This is a 77 year old male. Refer to note in patient chart for documentation of history and physical. Patient has symptoms of chronic epigastric abdominal pain and chronic nausea. Complications: No immediate complications. Procedure: Pre-Anesthesia Assessment: - Prior to the procedure, a History and Physical was performed, and patient medications and allergies were reviewed. The patient is competent. The risks and benefits of the procedure and the sedation options and risks were discussed with the patient. All questions were answered and informed consent was obtained. Patient identification and proposed procedure were verified by the physician in the pre-procedure area. Mental Status Examination: alert and oriented. Prophylactic Antibiotics: The patient does not require prophylactic antibiotics. Prior Anticoagulants: The patient has taken no anticoagulant or antiplatelet agents. After reviewing the risks and benefits, the patient was deemed in satisfactory condition to undergo the procedure. The anesthesia plan was to use monitored anesthesia care (MAC). Immediately prior to administration of medications, the patient was re-assessed for adequacy to receive sedatives. The heart rate, respiratory rate, oxygen saturations, blood pressure, adequacy of pulmonary ventilation, and response to care were monitored throughout the procedure. The physical status of the patient was re-assessed after the procedure. After obtaining informed consent, the endoscope was passed under direct vision. Throughout the procedure, the patient's blood pressure, pulse, and oxygen saturations were monitored continuously. The Endoscope was introduced through the mouth, and advanced to the second part of duodenum. The upper GI endoscopy was accomplished without difficulty. The patient tolerated the procedure well. Scope In: 10:42:59 AM Scope Out: 10:48:16 AM Total Procedure Duration Time 0 hours 5 minutes 17 seconds Findings: LA Grade A (one or more mucosal breaks less than 5 mm, not extending between tops of 2 mucosal folds) esophagitis with no bleeding was found 37 to 39 cm from the incisors. A small hiatal hernia was present. A benign-appearing, intrinsic moderate stenosis was found at the pylorus. This was traversed. A TTS dilator was passed through the scope. Dilation with a 15 mm pyloric balloon dilator was performed. The dilation site was examined and showed moderate mucosal disruption. Estimated blood loss was minimal. A small amount of food (residue) was found in the gastric body. Area was successfully injected with 100 units botulinum toxin. No gross lesions were noted in the first portion of the duodenum. Grade I varices were found in the upper third of the esophagus. They were 5 mm in largest diameter. A single 5 mm angiodysplastic lesion with no bleeding was found in the gastric body. Impression: - LA Grade A reflux esophagitis with no bleeding. - Small hiatal hernia. - Gastric stenosis was found at the pylorus. Dilated. - A small amount of food (residue) in the stomach. Injected with botulinum toxin. - No gross lesions in the first portion of the duodenum. - No specimens collected. Recommendation: - Discharge patient to home. - Resume previous diet. - Continue present medications. Procedure Code(s): --- Professional --- 28765, Esophagogastroduodenoscopy, flexible, transoral; with dilation of gastric/duodenal stricture(s) (eg, balloon, bougie) 58280, 59,51, Esophagogastroduodenoscopy, flexible, transoral; with directed submucosal injection(s), any substance CPT copyright 2021 [employer]. All rights reserved. The codes documented in this report are preliminary and upon vehicle calibration engineer review may be revised to meet current compliance requirements. James Obrien DO 04/19/2023 10:53:36 AM This report has been signed electronically. Number of Addenda: 0 Note Initiated On: 04/19/2023 10:34 AM
== END 2023-04-19 11:48 | disposition home or self-care (01) ==
LOC: EN 09:38 → AC 09:38
PROVIDERS: PCP Internal Medicine; Referring Provider Internal Medicine; Visit Provider Internal Medicine Gastroenterology
PROC: 0DJ08ZZ Inspection of Upper Intestinal Tract, Via Natural or Artificial Opening Endoscopic (ICD-10-PCS; CPT 43235; principal; 2023-04-19 10:25)
DX: I85.00 Esophageal varices without bleeding (principal); I50.30 Unspecified diastolic (congestive) heart failure; I11.0 Hypertensive heart disease with heart failure; K44.9 Diaphragmatic hernia without obstruction or gangrene; K21.00 Gastro-esophageal reflux disease with esophagitis, without bleeding; K31.1 Adult hypertrophic pyloric stenosis; R63.4 Abnormal weight loss; F41.9 Anxiety disorder, unspecified; N40.0 Benign prostatic hyperplasia without lower urinary tract symptoms; K30 Functional dyspepsia; F32.A Depression, unspecified; E78.00 Pure hypercholesterolemia, unspecified; G20.C Parkinsonism, unspecified; E55.9 Vitamin D deficiency, unspecified; Z87.891 Personal history of nicotine dependence; Z79.899 Other long term (current) drug therapy; Z86.711 Personal history of pulmonary embolism; Z68.28 Body mass index [BMI] 28.0-28.9, adult
CPT/HCPCS: 43245; 43236; J7120; A4216; J0585; J2405; J3490

== ENCOUNTER → 2023-06-15 | Outpatient (CLI) | payer MEDICARE, SELFPAY ==
--- NOTE | 2023-06-15 12:13 | RAD_ITS ---
STUDY: X-RAY CHEST REASON FOR EXAM: Male, 78 years old. MALIGNANT NEOPLASM OF LEFT KIDNEY TECHNIQUE: PA and lateral views of the chest. COMPARISON: . FINDINGS: There is mild crowding of markings, otherwise lung mansfield are clear. There is no demonstrated pleural abnormality. Normal size heart. Normal mediastinum and zcah. Normal visualized pulmonary arteries. There is atherosclerotic calcification of the aortic arch with tortuosity. There are diffuse degenerative changes of the visualized thoracic spine. Normal visualized ribs, clavicles, and shoulders. There is no demonstrated abnormality of the visualized soft tissue structures of the upper abdomen. RAD/Chest PA and Lateral IMPRESSION: No acute interval change. Electronically Signed: Cassy Lagunas MD at 17:45 EST ,
[2023-06-15 12:21] LABS: Hematocrit 48.2 % (40-54); Hemoglobin 15.7 g/dL (13.0-16.5); Mean Corp Hgb Conc 32.6 g/dL (32-36); Mean Corpuscular Hgb 30.4 pg (27.0-32.0); Mean Corpuscular Volume 93.4 fL (80-94); Mean Platelet Vol. 12.7 fl (6.2-12.0); Platelet Count 111 K/mm3 (150-450); RBC Distribution Width CV 13.4 % (11.6-14.6); RBC Distribution Width SD 46.4 fl (35.1-43.9); Red Blood Count 5.16 M/mm3 (4.6-6.2); White Blood Count 6.6 K/mm3 (4.4-11.0)
[2023-06-15 13:05] LABS: Anion Gap 3 (5-15); BUN 20 mg/dL (7-18); BUN/Creat Ratio 13.2 RATIO (10-20); Calcium,Total 9.5 mg/dL (8.5-10.1); Chloride 109 mmol/L (98-107); Creatinine, Serum 1.52 mg/dL (0.70-1.30); EST Glomerular Filtration Rate 47 mL/min (>60); Est Glom Filt Rate - Afr Amer 57 mL/min (>60); Glucose 82 mg/dL (74-106); PSA,Total - Annual Screen 2.34 ng/mL (0.00-4.00); Potassium 4.3 mmol/L (3.5-5.1); Sodium Level 142 mmol/L (136-145)
== END | disposition home or self-care (01) ==
LOC: LAB 11:59
PROVIDERS: PCP Internal Medicine; Referring Provider Urology; Visit Provider Urology
DX: C64.2 Malignant neoplasm of left kidney, except renal pelvis (principal); Z12.5 Encounter for screening for malignant neoplasm of prostate
CPT/HCPCS: 36415; 71046; 80048; 84153; 85027; G0103

== ENCOUNTER → 2023-06-23 | Outpatient (CLI) | payer MEDICARE, SELFPAY ==
--- NOTE | 2023-06-23 14:14 | CT_ITS ---
STUDY: CT ABDOMEN AND PELVIS WITHOUT CONTRAST REASON FOR EXAM: Male, 78 years old. Abdominal pain, left renal tumor RADIATION DOSAGE (If Supplied By Facility): CTDIvol = ( 9.18 ) mGy, DLP = ( 469.93 ) mGycm TECHNIQUE: Transaxial images were obtained from the dome of the diaphragm to the symphysis pubis without oral contrast, and without intravenous contrast. Sagittal and coronal images were reconstructed. Individualized dose optimization techniques were used for this CT. COMPARISON: None. FINDINGS: Chronic interstitial changes in the lung bases without a superimposed process. The visualized portions of the heart are within normal limits. Liver is unremarkable aside from scattered simple cysts There are multiple gallstones. There are multiple benign calcified granulomata of the spleen. Normal pancreas. Normal bilateral adrenal glands. There is a simple 3 cm cyst in the right kidney without obstructive uropathy or suspicious solid renal lesion, there has been a previous left nephrectomy. No soft tissue mass in the left nephrectomy bed. Normal visualized stomach. Normal small intestine. Retained stool noted throughout the colon. Evidence of multiple previous surgeries to bowel loops without anastomotic leak. The appendix is visualized and appears normal. Appendix seen on coronal recon images 44 through 51 There is diffuse atherosclerotic calcification of the abdominal aorta, without a demonstrated aneurysm. Normal inferior vena cava. Normal retroperitoneum. Normal urinary bladder. Normal abdominal wall. There are diffuse degenerative changes of the visualized lumbar spine, and pelvis. Replaced right hip joint free of complication CT/Abdomen/Pelvis without Cont IMPRESSION: Simple hepatic and right renal cysts, no specific follow-up needed. Previous left nephrectomy, no soft tissue mass in the left nephrectomy bed. Cholelithiasis Retained stool No free intraperitoneal fluid, air, or suspicious adenopathy Diffuse atherosclerosis Electronically Signed: Toni Christine MD at 14:40 EST ,
== END | disposition home or self-care (01) ==
LOC: CT 14:12
PROVIDERS: PCP Internal Medicine; Referring Provider Urology; Visit Provider Urology
DX: C64.2 Malignant neoplasm of left kidney, except renal pelvis (principal)
CPT/HCPCS: 74176

== ENCOUNTER 2023-08-18 02:36 | Inpatient (IN) | payer MEDICARE, SELFPAY ==
[2023-08-18] VITALS (51 sets, daily range): BP systolic 128–199; BP diastolic 57–97; PULSE 68–83; RESP 14–26; TEMP 36.6–37.7; O2SAT 88–97; BMI 26.9
--- NOTE | 2023-08-18 | GALL_PTH ---
PATIENT: MARTA OLIVIA LOC: MS3 U#:[id number] AGE/SX: 78/M ROOM: [facility] [place] RE08/20/[address]: Dr. Geovanna Parsons MD : 1945 BED: 1 DIS: 08/21/2023 SPEC #: [id number] RECD: 08/18/23 16:20 STATUS: RAY ORTIZ #: [id number] BRITTNEY: 08/18/23 00:[address]: Geovanna Parsons DEPT: SURGICAL PATHOLOGY RECD BY: Juan C Fajardo ENTERED: 08/21/23 10:34 SP TYPE: KENROY PALMER DR: Dr. Brandon Cantor MD Tissues: Gallbladder, NOS Procedures: Surgery Specimen Level III HEADER OPERATION: Laparoscopic, cholecystectomy with IOC PRE-OP DIAGNOSIS: Acute calculous cholecystitis, Hypertension, Parkinson's Disease TISSUE SUBMITTED: Gallbladder MICROSCOPIC DIAGNOSIS Gallbladder, cholecystectomy: Acute and chronic hemorrhagic and ulcerated cholecystitis and cholelithiasis. PERI/ 08/22/2023 MICROSCOPIC DESCRIPTION Slides are reviewed. GROSS DESCRIPTION Received is one container labeled with the patient's name and designated gallbladder. The specimen consists of a gallbladder measuring 10.5 cm in length and up to 5.0 cm in diameter. The external surface is pink-brandt, smooth and glistening for the most part. Focally it is granular, hemorrhagic and contains cautery artifact. The gallbladder contains brown-mucoid bile and multiple black ovoid stones measuring in aggregate 2.0 x1.5 x 1.0cm and 0.2 to 1.0cm in greatest dimension. The mucosa is bile-stained and without any mass lesions. The gallbladder wall measures up to 0.4 cm in thickness. [employer] sections from the gallbladder and the cystic duct are submitted in one cassette. / PERI: 08/21/2023 TC:2 CPT: 26031
--- NOTE | 2023-08-18 03:12 | CT_ITS ---
STUDY: CT ABDOMEN AND PELVIS WITH CONTRAST REASON FOR EXAM: Male, 78 years old. abd pain RADIATION DOSAGE (If Supplied By Facility): CTDIvol = ( 19.96 ) mGy, DLP = ( 1439.56 ) mGycm TECHNIQUE: IV 100mL Isovue-[id number] was administered. Transaxial images were obtained from the dome of the diaphragm to the symphysis pubis in the portal venous phase. Multiplanar coronal and sagittal images were reformatted. Individualized Dose Optimization Techniques Were Used For This CT. COMPARISON: Prior study dated: 06/23/2023 FINDINGS: LOWER CHEST: Bibasilar atelectasis. Coronary artery calcifications. No cardiomegaly or pericardial effusion. LIVER: The liver is normal in size, shape, and attenuation. Small cysts seen throughout the liver. GALLBLADDER AND BILIARY TREE: Stones are seen layering in the gallbladder lumen. The gallbladder is distended, unchanged from prior. There is associated gallbladder wall thickening and mild inflammation. There is also mild intrahepatic biliary ductal dilatation which is a new finding. Normal caliber common bile duct with no ductal filling defect seen. PANCREAS: No focal cystic or solid mass. SPLEEN: Normal size without focal cystic or solid mass. ADRENAL GLANDS: No nodules. KIDNEYS AND URETERS: Absent left kidney. Normal size and position of the right kidney. Simple right renal cyst requires no specific follow-up. No hydronephrosis or nephrolithiasis. PERITONEUM: No ascites or free air. No other fluid collection. BOWEL: The stomach is unremarkable. Nonobstructive appearance of the bowel. Anastomosis noted in the anterior right abdomen with small bowel fecalization suggestive of slow transit. Moderate volume of stool in the colon, greatest in the right hemicolon. No colonic wall thickening. No evidence of acute appendicitis. LYMPH NODES: No enlarged mesenteric or retroperitoneal lymph nodes. VESSELS: The aorta is normal in caliber with moderate atherosclerotic calcification. URINARY BLADDER: Distended bladder with bladder diverticula. No calculi. REPRODUCTIVE ORGANS: Enlarged prostate. This measures 6 cm transverse. ABDOMINAL WALL: No discrete abdominal or pelvic wall hernia. BONES: No lytic or blastic abnormality. Multilevel degenerative changes of the spine. Total right hip arthroplasty without evidence of failure. Ossification adjacent to the hardware. CT/Abdomen/Pelvis W IV Cont ONLY IMPRESSION: Abnormal appearance of the gallbladder which is distended. Cholelithiasis. Inflammatory changes are present with associated intrahepatic biliary ductal dilatation. Findings suspicious for acute cholecystitis. Additional chronic changes as detailed above. Electronically Signed: Emmanuel Rivero MD at 5:16 EDT ,
[2023-08-18 03:23] LABS: Absolute Lymphocyte Count 0.86 X10^3/uL (0.83-4.51); Absolute Neutrophil Count 7.4 X10^3/uL (2.0-7.7); Basophil# 0.06 X10^3/uL; Basophil% 0.7 % (0-1); Eosinophil# 0.16 X10^3/uL; Eosinophils% 1.8 % (0-5); Hematocrit 48.4 % (40-54); Lymphocyte # 0.86 X10^3/ul (0.83-4.51); Lymphocyte % 9.4 % (19-41); Mean Corp Hgb Conc 33.1 g/dL (32-36); Mean Corpuscular Hgb 30.3 pg (27.0-32.0); Mean Corpuscular Volume 91.7 fL (80-94); Mean Platelet Vol. 10.9 fl (6.2-12.0); Monocyte# 0.65 X10^3/uL; Monocyte% 7.1 % (0-10); NRBC Flagged by Analyzer 0 % (0-5); Neutrophil # 7.35 X10^3/uL (2.7-7.7); Neutrophil % 80.6 % (47-70); Platelet Count 150 K/mm3 (150-450); RBC Distribution Width CV 14.1 % (11.6-14.6); RBC Distribution Width SD 47.7 fl (35.1-43.9); Red Blood Count 5.28 M/mm3 (4.6-6.2); White Blood Count 9.1 K/mm3 (4.4-11.0)
[2023-08-18] MEDS: Ondansetron 4 MG/2 ML Vial IV (03:29)
[2023-08-18] MEDS: HYDROmorphone 0.5 MG/0.5 ML SYRINGE IV ×2 (03:29→05:35)
[2023-08-18] MEDS: 0.9% Normal Saline (500mL Bag) 500 ML 999 ML IV (03:29)
[2023-08-18 03:40] LABS: AST(SGOT) 14 U/L (15-37); Alanine Aminotransfer ALT/SGPT < 6 U/L (16-61); Albumin, Serum 3.8 g/dL (3.2-5.0); Alkaline Phosphatase 96 U/L (45-117); Anion Gap 6 (5-15); BUN 19 mg/dL (7-18); BUN/Creat Ratio 12.3 RATIO (10-20); Bilirubin, Direct 0.24 mg/dL (0.00-0.30); Calcium,Total 9.5 mg/dL (8.5-10.1); Chloride 107 mmol/L (98-107); Creatinine, Serum 1.54 mg/dL (0.70-1.30); EST Glomerular Filtration Rate 47 mL/min (>60); Est Glom Filt Rate - Afr Amer 56 mL/min (>60); Estimated Creatinine Clearance 40.82 ml/min; Globulin 3.2 g/dL (2.2-4.2); Glucose 111 mg/dL (74-106); Lipase 64 U/L (13-75); Potassium 3.9 mmol/L (3.5-5.1); Sodium Level 142 mmol/L (136-145)
[2023-08-18 03:50] LABS: Lactic Acid 1.1 mmol/L (0.4-1.9)
--- NOTE | 2023-08-18 05:58 | US_ITS ---
STUDY: ABDOMINAL ULTRASOUND - RIGHT UPPER QUADRANT REASON FOR VISIT: Male, 78 years old Acute cholecystitis TECHNIQUE: Ultrasound evaluation of the right upper quadrant was performed with real-time and static weir-scale imaging. TECHNICAL QUALITY: Adequate. COMPARISON: Comparison is made with prior CT scan of the abdomen and pelvis performed earlier in the day. FINDINGS: Liver: The liver measures 16.7 cm. There is increased echogenicity consistent with fatty infiltration. The bile ducts are within normal limits. There is hepatic color flow. The direction of portal flow is hepatopetal. There is a 7 mm x 7 mm x 8 mm cyst in the left lobe of the liver. 2 cysts are seen in the right lobe. The largest cyst measures 1 cm x 0.8 cm x 0.7 cm. Gallbladder: Normal distended gallbladder. The gallbladder wall is thickened and measures 5.2 mm. There is a negative sonographic Courtney''s sign. There is pericholecystic fluid. There are multiple echogenic structures within the gallbladder, consistent with multiple gallstones. Sludge is seen in the gallbladder lumen. Common Bile Duct (C.B.D.): The common bile duct measures 3.7 mm. Pancreas: Normal size of the head, body and tail of the pancreas. There is normal echogenicity of the pancreas. There is no demonstrated pancreatic mass or cyst. Right Kidney: Normal size of the right kidney. The right kidney measures 11.8 cm x 5.8 cm x 4.8 cm. Normal renal cortex. The right cortex measures 1.6 cm. There is a 4.3 cm x 4.2 cm x 3.5 cm right renal cyst. There is no right hydronephrosis. US/Gallbladder IMPRESSION: Fatty infiltration of the liver. Hepatic cysts. Multiple gallstones and sludge seen in the gallbladder lumen. Small amount of pericholecystic fluid. Gallbladder wall thickening. Right renal cyst. Electronically Signed: Cuong Reynolds MD at 8:21 EDT ,
[2023-08-18] MEDS: Piperacil/Tazobactam 3.375 GM in 0.9% Normal Saline (50mL MB+) 50 ML IV ×3 (07:30→20:47)
[2023-08-18] MEDS: HYDROmorphone 1 MG/ML Syringe 0.5 MG IV (09:05)
--- NOTE | 2023-08-18 09:07 | EX.ED.DYSGE1 ---
HPI History of Present Illness Chief Complaint: Chest Pain Informant: patient and spouse/S.O. Narrative Narrative: Patient is a 78-year-old male with past medical history of hypertension and Parkinson's disease as well as renal cancer requiring left nephrectomy roughly 1 year ago. He states he ate a BLT for dinner and then was lying down to go to sleep around 11 PM when he developed sharp pain in his right upper abdomen radiating towards the middle portion of his chest and abdomen as well. He states he became nauseous with this but denies any vomiting. He states that he thought he may have acid reflux so he took some [id number] medication without symptom improvement and secondary to the persistent pain comes in for evaluation [facility] Medical History Abnormal weight loss Acute respiratory failure with hypoxia Ambulates with cane Anxiety Arthritis Back pain BPH (benign prostatic hyperplasia) Cancer Cardiology follow-up encounter Change in bowel habit Chronic cough Chronic diarrhea Chronic respiratory failure with hypoxia Closed right hip fracture Depression Diarrhea Difficulty swallowing Excessive bleeding Expressive aphasia Fall Former smoker Heartburn History of Clostridium difficile infection History of echocardiogram History of pain when walking Hypercholesterolemia Hyperlipidemia Hypertension Hyperthyroidism Hypothyroidism IBS (irritable bowel syndrome) Leg cramps Melanoma in situ of unspecified part of face Osteoarthritis Osteoporosis Parkinsons disease Polycythemia Prostate disease Pulmonary embolism Shortness of breath on exertion Skin cancer Syncope Thyrotoxicosis Wears dentures Wears glasses Home Medications metoprolol tartrate 25 mg tablet 25 mg PO DAILY heart 04/15/21 [History Last Taken 04/18/23 09:00] potassium chloride 10 mEq capsule,extended release 10 meq PO BID supplement 04/15/21 [History Last Taken 04/29/22] cholecalciferol (vitamin D3) 25 mcg (1,000 unit) tablet (Vitamin D3) 25 mcg PO DAILY health maintenance 07/07/21 [History Last Taken 04/29/22] carbidopa 25 mg-levodopa 100 mg tablet 1 tab PO TID PARKINSONS 10/18/21 [History Last Taken 04/19/23] isosorbide mononitrate 30 mg tablet,extended release 24 hr 30 mg PO DAILY ANGINA 10/18/21 [History Last Taken 04/29/22] lorazepam 1 mg tablet (Ativan) 1 mg PO DAILY PRN Anxiety 12/01/21 [History Last Taken 02/15/22] paroxetine HCl 20 mg tablet 20 mg PO DAILY DEPRESSION 12/07/21 [History Last Taken 02/15/22] atorvastatin 20 mg tablet 20 mg PO QHS CHOLESTEROL 02/08/22 [History Last Taken 04/28/22] methimazole 5 mg tablet 5 mg PO DAILY THYROID #30 tabs 03/09/23 [Rx Last Taken Unknown] cholestyramine (with sugar) 4 gram oral powder 1 g PO HS #348.6 grams 06/14/23 [Rx Last Taken Unknown] pantoprazole 40 mg tablet,delayed release 40 mg PO DAILY 30 days #30 tabs 06/14/23 [Rx Last Taken Unknown] Allergy/AdvReac Type Severity Reaction Status Date / Time No Known Allergies Allergy Verified 08/18/23 02:37 Family History Father Lung cancer Mother Parkinsons Heart failure Surgical History (Updated 04/17/23 @ 11:49 by Sonam Monsivais) H/O colonoscopy History of cardiac catheterization History of colon surgery History of esophagogastroduodenoscopy (EGD) History of nephrectomy, left History of rhinoplasty History of tonsillectomy History of total knee replacement (TKR) History of total right hip replacement History of transurethral resection of prostate Hx of colonoscopy reattachment of severed finger stoma reversal Social History household members: spouse housing: house 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al status: employed 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: [employer] pets and animals: Yes pets and animals: cat(s) and dog(s) Smoking Status: Former smoker quit date: 06/05/98 pack-years: 72 second hand exposure: No alcohol intake: never substance use type: does not use seatbelt use: always ROS ROS ED Constitutional Constitutional ED: Denies chills or fever(s) Eyes Eyes: Denies change in vision ENT ENT ED: Denies sore throat Cardiovascular Cardiovascular: Reports chest pain; Denies palpitations or racing heartbeat Respiratory/Chest Respiratory/Chest: Denies cough or dyspnea Gastrointestinal Gastrointestinal: Reports abdominal pain and nausea; Denies diarrhea or vomiting Genitourinary Genitourinary ED: Denies dysuria or hematuria Musculoskeletal Musculoskeletal: Denies back pain or myalgias Integumentary Denies rash Neurologic Neurologic: Denies headache(s) Hematologic/Lymphatic Hematologic/Lymphatic: Denies easy bleeding or easy bruising EXAM Physical Exam Const Vital Signs: 08/18/23 02:38 08/18/23 02:58 08/18/23 03:33 Temperature 98.5 F Temperature Source Oral Pulse Rate 74 70 71 Respiratory Rate 18 23 H 16 Blood Pressure 199/84 H 192/77 H 168/78 H Blood Pressure Mean 122 115 108 Pulse Ox 95 88 Oxygen Delivery Method Room Air Nasal Cannula Oxygen Flow Rate (L/min) 2 08/18/23 04:03 08/18/23 04:46 08/18/23 05:04 Temperature Temperature Source Pulse Rate 68 70 69 Respiratory Rate 18 17 15 Blood Pressure 179/82 H 170/86 H 174/80 H Blood Pressure Mean 114 114 111 Pulse Ox 92 97 95 Oxygen Delivery Method Nasal Cannula Nasal Cannula Nasal Cannula Oxygen Flow Rate (L/min) 2 3 2 08/18/23 03:01 08/18/23 03:15 08/18/23 03:30 Temperature Temperature Source Pulse Rate 69 71 70 Respiratory Rate 16 22 H 17 Blood Pressure 189/86 H 168/78 H Blood Pressure Mean 108 104 Pulse Ox 89 88 90 Oxygen Delivery Method Oxygen Flow Rate (L/min) 08/18/23 03:45 08/18/23 04:00 08/18/23 04:30 Temperature Temperature Source Pulse Rate 68 Respiratory Rate 25 H Blood Pressure 172/84 H 179/82 H 192/84 H Blood Pressure Mean 106 111 115 Pulse Ox 95 Oxygen Delivery Method Oxygen Flow Rate (L/min) 08/18/23 04:33 08/18/23 04:45 08/18/23 05:00 Temperature Temperature Source Pulse Rate 72 69 69 Respiratory Rate 14 18 18 Blood Pressure 170/86 H 174/80 H Blood Pressure Mean 108 108 Pulse Ox 97 95 94 Oxygen Delivery Method Oxygen Flow Rate (L/min) 08/18/23 05:15 08/18/23 05:30 08/18/23 05:45 Temperature Temperature Source Pulse Rate 71 70 82 Respiratory Rate 18 16 20 H Blood Pressure 165/80 H 163/78 H 142/70 H Blood Pressure Mean 105 102 86 Pulse Ox 93 93 Oxygen Delivery Method Oxygen Flow Rate (L/min) 08/18/23 06:00 08/18/23 06:15 08/18/23 06:30 Temperature Temperature Source Pulse Rate 69 69 68 Respiratory Rate 18 18 15 Blood Pressure 166/80 H 152/72 H 151/72 H Blood Pressure Mean 102 93 94 Pulse Ox 92 92 92 Oxygen Delivery Method Oxygen Flow Rate (L/min) 08/18/23 06:45 08/18/23 07:15 08/18/23 07:20 Temperature Temperature Source Pulse Rate 68 75 Respiratory Rate 20 H 21 H Blood Pressure 159/76 H 147/77 H Blood Pressure Mean 98 95 Pulse Ox 92 90 Oxygen Delivery Method Oxygen Flow Rate (L/min) 08/18/23 08:00 08/18/23 07:30 08/18/23 07:45 Temperature Temperature Source Pulse Rate 72 71 71 Respiratory Rate 16 21 H 20 H Blood Pressure 149/57 H 153/70 H 156/79 H Blood Pressure Mean 87 89 98 Pulse Ox 97 92 93 Oxygen Delivery Method Nasal Cannula Oxygen Flow Rate (L/min) 2 08/18/23 08:00 08/18/23 08:15 Temperature Temperature Source Pulse Rate 73 83 Respiratory Rate 20 H 26 H Blood Pressure 149/57 H 175/82 H Blood Pressure Mean 80 107 Pulse Ox 93 89 Oxygen Delivery Method Oxygen Flow Rate (L/min) Positive well nourished and well developed General Appearance ED: well developed; Negative for pallor HEENT HEENT Narrative: Normocephalic atraumatic No signs of infection in the posterior pharynx No airway edema or compromise Eyes PERRL and EOMs intact bilaterally General Eye ED: Negative for scleral icterus Neck supple Neck Narrative: No nuchal rigidity or meningeal signs Chest Wall palpation of chest normal Resp normal respiratory effort and clear to auscultation bilaterally Cardio regular rate and regular rhythm Rate: other Other Details: Radial and carotid pulses equal and symmetric GI non-distended GI Narrative: Abdomen is soft and nondistended with normal active bowel sounds. Patient has pain on palpation in the right upper quadrant and midepigastric region but greatest pain in the right upper quadrant with positive Courtney sign. No pulsatile mass Auscultation: normoactive bowel sounds Palpation: soft Back/Spine no CVA tenderness Extremity normal to inspection Neuro oriented x3 and CN's II-XII intact bilaterally Sensorium / Orientation: alert Psych mental status grossly normal Skin no rashes or lesions noted General Skin Exam: Negative for jaundice or pallor MDM MDM MDM Narrative Medical decision making narrative: Patient presented to the ER with stable vitals and reported sudden onset of pain which after further history and exam is more abdominal than it is cardiac. With the fact that the pain started after eating a BLT concern is for biliary colic versus acute cholecystitis versus pancreatitis. Secondary to his basic labs and a CT scan with IV contrast were ordered. Patient's labs revealed no clinically significant findings but CT scan did show gallstones with concern for acute cholecystitis. Secondary to this the case was discussed with general surgery on-call Dr. Parsons. She recommends an ultrasound for further clarification of the CT results. Ultrasound was performed and does confirm acute cholecystitis. Patient was given IV Zosyn secondary to this. Case was then rediscussed with general surgery who recommends admission to their service for cholecystectomy. Patient was informed of this and is agreeable with the plan of care. He will be admitted to general surgery service while awaiting potential surgical fixation for his acute cholecystitis. History & Record Review Discussion w/independent historian: Patient and Significant other Lab Data Attestation: I reviewed the patient's lab results. Labs: Laboratory Results - last 24 hr 08/18/23 08/18/23 02:55 03:20 WBC 9.1 RBC 5.28 Hgb 16.0 Hct 48.4 MCV 91.7 MCH 30.3 MCHC 33.1 RDW Std Deviation 47.7 H RDW Coeff of Daisy 14.1 Plt Count 150 MPV 10.9 Immature Gran % (Auto) 0.400 Neut % (Auto) 80.6 H Lymph % (Auto) 9.4 L [place] % (Auto) 7.1 Eos % (Auto) 1.8 Baso % (Auto) 0.7 Absolute Neuts (auto) 7.4 Absolute Lymphs (auto) 0.86 Nucleated RBC % 0 Sodium 142 Potassium 3.9 Chloride 107 Carbon Dioxide 29.0 Anion Gap 6 BUN 19 H Creatinine 1.54 H Estim Creat Clear Calc 40.82 Est GFR (MDRD) Af Amer 56 L Est GFR (MDRD) Non-Af 47 L BUN/Creatinine Ratio 12.3 Glucose 111 H Lactic Acid 1.1 Calcium 9.5 Total Bilirubin 0.90 Direct Bilirubin 0.24 AST 14 L ALT < 6 L Alkaline Phosphatase 96 Total Protein 7.0 Albumin 3.8 Globulin 3.2 Lipase 64 Radiography Diagnostic Testing: Clinical Impression(s) from Imaging Studies Abdomen/Pelvis CT 08/18/23 03:12 IMPRESSION: Abnormal appearance of the gallbladder which is distended. Cholelithiasis. Inflammatory changes are present with associated intrahepatic biliary ductal dilatation. Findings suspicious for acute cholecystitis. Additional chronic changes as detailed above. Electronically Signed: Emmanuel Rivero MD at 5:16 EDT , Gallbladder Ultrasound 08/18/23 05:58 IMPRESSION: Fatty infiltration of the liver. Hepatic cysts. Multiple gallstones and sludge seen in the gallbladder lumen. Small amount of pericholecystic fluid. Gallbladder wall thickening. Right renal cyst. Electronically Signed: Cuong Reynolds MD at 8:21 EDT , Management Discussion w/another healthcare provider: [employer] Discharge Plan Triage Chief Complaint: Chest Pain ED Provider: Wisam Bella Dx/Rx/DC Orders Clinical Impression: Acute calculous cholecystitis, Hypertension, Parkinson's disease Prescriptions: No Action carbidopa-levodopa 25-100 mg tablet 1 tab PO TID lorazepam [Ativan] 1 mg tablet 1 mg PO DAILY PRN (Reason: Anxiety) methimazole 5 mg tablet 5 mg PO DAILY Qty: 30 6RF pantoprazole 40 mg tablet,delayed release (DR/EC) 40 mg PO DAILY 30 Days Qty: 30 11RF cholestyramine (with sugar) 4 gram powder 1 g PO HS Qty: 348.6 0RF Rx Instructions: administer w/meal; avoid other meds within 1hr before or 4-6hr after dose cholecalciferol (vitamin D3) [Vitamin D3] 25 mcg (1,000 unit) Tablet 25 mcg PO DAILY potassium chloride 10 mEq capsule, extended release 10 meq PO BID metoprolol tartrate 25 mg tablet 25 mg PO DAILY paroxetine HCl 20 mg tablet 20 mg PO DAILY MDD T isosorbide mononitrate 30 mg tablet extended release 24 hr 30 mg PO DAILY atorvastatin 20 mg tablet 20 mg PO QHS Primary Care Provider: Brandon Cantor Referrals: Brandon Cantor MD [Primary Care Provider] - Disposition Disposition: Acute Care Hospital [facility]
--- NOTE | 2023-08-18 09:16 | PCM.HP.STD ---
HPI - General General Date of Admission: 08/18/23 HPI Narrative MARTA OLIVIA, is a 78 M who presents to the ER due to epigastric/right upper quadrant pain started about 10- 11 PM last night accompanied with his . Patient denies having previous pain similar. Patient's CT abdomen pelvis showed a distended gallbladder with gallstones and questionable wall thickening. Patient normal white blood cell count no shift, normal LFTs. Patient's ultrasound suspicious for acute cholecystitis with pericholecystic fluid, thickened gallbladder wall, normal common bile duct and distended gallbladder. Patient did receive Zosyn IV in the ER. Patient does take a baby aspirin, but no other blood thinners. Patient has had multiple abdominal surgeries however they were all robotic including a colon surgery along with an ostomy and takedown of ostomy and then robotic left nephrectomy in 2021. [facility] Medical History Abnormal weight loss Acute respiratory failure with hypoxia Ambulates with cane Anxiety Arthritis Back pain BPH (benign prostatic hyperplasia) Cancer Cardiology follow-up encounter Change in bowel habit Chronic cough Chronic diarrhea Chronic respiratory failure with hypoxia Closed right hip fracture Depression Diarrhea Difficulty swallowing Excessive bleeding Expressive aphasia Fall Former smoker Heartburn History of Clostridium difficile infection History of echocardiogram History of pain when walking Hypercholesterolemia Hyperlipidemia Hypertension Hyperthyroidism Hypothyroidism IBS (irritable bowel syndrome) Leg cramps Melanoma in situ of unspecified part of face Osteoarthritis Osteoporosis Parkinsons disease Polycythemia Prostate disease Pulmonary embolism Shortness of breath on exertion Skin cancer Syncope Thyrotoxicosis Wears dentures Wears glasses Home Medications metoprolol tartrate 25 mg tablet 25 mg PO DAILY heart 04/15/21 [History Last Taken 04/18/23 09:00] potassium chloride 10 mEq capsule,extended release 10 meq PO BID supplement 04/15/21 [History Last Taken 04/29/22] cholecalciferol (vitamin D3) 25 mcg (1,000 unit) tablet (Vitamin D3) 25 mcg PO DAILY health maintenance 07/07/21 [History Last Taken 04/29/22] carbidopa 25 mg-levodopa 100 mg tablet 1 tab PO TID PARKINSONS 10/18/21 [History Last Taken 04/19/23] isosorbide mononitrate 30 mg tablet,extended release 24 hr 30 mg PO DAILY ANGINA 10/18/21 [History Last Taken 04/29/22] lorazepam 1 mg tablet (Ativan) 1 mg PO DAILY PRN Anxiety 12/01/21 [History Last Taken 02/15/22] paroxetine HCl 20 mg tablet 20 mg PO DAILY DEPRESSION 12/07/21 [History Last Taken 02/15/22] atorvastatin 20 mg tablet 20 mg PO QHS CHOLESTEROL 02/08/22 [History Last Taken 04/28/22] methimazole 5 mg tablet 5 mg PO DAILY THYROID #30 tabs 03/09/23 [Rx Last Taken Unknown] cholestyramine (with sugar) 4 gram oral powder 1 g PO HS #348.6 grams 06/14/23 [Rx Last Taken Unknown] pantoprazole 40 mg tablet,delayed release 40 mg PO DAILY 30 days #30 tabs 06/14/23 [Rx Last Taken Unknown] Allergy/AdvReac Type Severity Reaction Status Date / Time No Known Allergies Allergy Verified 08/18/23 02:37 Family History Father Lung cancer Mother Parkinsons Heart failure Surgical History (Updated 04/17/23 @ 11:49 by Sonam Monsivais) H/O colonoscopy History of cardiac catheterization History of colon surgery History of esophagogastroduodenoscopy (EGD) History of nephrectomy, left History of rhinoplasty History of tonsillectomy History of total knee replacement (TKR) History of total right hip replacement History of transurethral resection of prostate Hx of colonoscopy reattachment of severed finger stoma reversal Social History household members: spouse housing: house 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al status: employed 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: [employer] pets and animals: Yes pets and animals: cat(s) and dog(s) Smoking Status: Former smoker quit date: 06/05/98 pack-years: 72 second hand exposure: No alcohol intake: never substance use type: does not use seatbelt use: always Vital Signs Vital Signs Vital Signs: 08/18/23 02:38 08/18/23 02:58 08/18/23 03:33 Temperature 98.5 F Temperature Source Oral Pulse Rate 74 70 71 Respiratory Rate 18 23 H 16 Blood Pressure 199/84 H 192/77 H 168/78 H Blood Pressure Mean 122 115 108 Pulse Ox 95 88 Oxygen Delivery Method Room Air Nasal Cannula Oxygen Flow Rate (L/min) 2 08/18/23 04:03 08/18/23 04:46 08/18/23 05:04 Temperature Temperature Source Pulse Rate 68 70 69 Respiratory Rate 18 17 15 Blood Pressure 179/82 H 170/86 H 174/80 H Blood Pressure Mean 114 114 111 Pulse Ox 92 97 95 Oxygen Delivery Method Nasal Cannula Nasal Cannula Nasal Cannula Oxygen Flow Rate (L/min) 2 3 2 08/18/23 03:01 08/18/23 03:15 08/18/23 03:30 Temperature Temperature Source Pulse Rate 69 71 70 Respiratory Rate 16 22 H 17 Blood Pressure 189/86 H 168/78 H Blood Pressure Mean 108 104 Pulse Ox 89 88 90 Oxygen Delivery Method Oxygen Flow Rate (L/min) 08/18/23 03:45 08/18/23 04:00 08/18/23 04:30 Temperature Temperature Source Pulse Rate 68 Respiratory Rate 25 H Blood Pressure 172/84 H 179/82 H 192/84 H Blood Pressure Mean 106 111 115 Pulse Ox 95 Oxygen Delivery Method Oxygen Flow Rate (L/min) 08/18/23 04:33 08/18/23 04:45 08/18/23 05:00 Temperature Temperature Source Pulse Rate 72 69 69 Respiratory Rate 14 18 18 Blood Pressure 170/86 H 174/80 H Blood Pressure Mean 108 108 Pulse Ox 97 95 94 Oxygen Delivery Method Oxygen Flow Rate (L/min) 08/18/23 05:15 08/18/23 05:30 08/18/23 05:45 Temperature Temperature Source Pulse Rate 71 70 82 Respiratory Rate 18 16 20 H Blood Pressure 165/80 H 163/78 H 142/70 H Blood Pressure Mean 105 102 86 Pulse Ox 93 93 Oxygen Delivery Method Oxygen Flow Rate (L/min) 08/18/23 06:00 08/18/23 06:15 08/18/23 06:30 Temperature Temperature Source Pulse Rate 69 69 68 Respiratory Rate 18 18 15 Blood Pressure 166/80 H 152/72 H 151/72 H Blood Pressure Mean 102 93 94 Pulse Ox 92 92 92 Oxygen Delivery Method Oxygen Flow Rate (L/min) 08/18/23 06:45 08/18/23 07:15 08/18/23 07:20 Temperature Temperature Source Pulse Rate 68 75 Respiratory Rate 20 H 21 H Blood Pressure 159/76 H 147/77 H Blood Pressure Mean 98 95 Pulse Ox 92 90 Oxygen Delivery Method Oxygen Flow Rate (L/min) 08/18/23 08:00 08/18/23 09:00 08/18/23 07:30 Temperature Temperature Source Pulse Rate 72 77 71 Respiratory Rate 16 20 H 21 H Blood Pressure 149/57 H 162/76 H 153/70 H Blood Pressure Mean 87 104 89 Pulse Ox 97 93 92 Oxygen Delivery Method Nasal Cannula Nasal Cannula Oxygen Flow Rate (L/min) 2 2 08/18/23 07:45 08/18/23 08:00 08/18/23 08:15 Temperature Temperature Source Pulse Rate 71 73 83 Respiratory Rate 20 H 20 H 26 H Blood Pressure 156/79 H 149/57 H 175/82 H Blood Pressure Mean 98 80 107 Pulse Ox 93 93 89 Oxygen Delivery Method Oxygen Flow Rate (L/min) Weight Weight: 188 lb 0.869 oz Body Mass Index (BMI) 26.9 Physical Exam Const alert, oriented x3 and no apparent distress HEENT normocephalic and head/scalp atraumatic Resp normal respiratory effort Cardio regular rate GI soft to palpation and non-tender; Negative for non-distended Palpation: Negative for guarding Extremity no clubbing, cyanosis or edema Skin no rashes or lesions noted Neuro CN's II-XII intact bilaterally Psych mental status grossly normal Results Lab / Micro Data 08/18/23 02:55 08/18/23 02:55 Labs: Laboratory Results - last 24 hr 08/18/23 02:55: WBC 9.1, RBC 5.28, Hgb 16.0, Hct 48.4, MCV 91.7, MCH 30.3, MCHC 33.1, RDW Std Deviation 47.7 H, RDW Coeff of Daisy 14.1, Plt Count 150, MPV 10.9, Immature Gran % (Auto) 0.400, Neut % (Auto) 80.6 H, Lymph % (Auto) 9.4 L, [place] % (Auto) 7.1, Eos % (Auto) 1.8, Baso % (Auto) 0.7, Absolute Neuts (auto) 7.4, Absolute Lymphs (auto) 0.86, Nucleated RBC % 0, Sodium 142, Potassium 3.9, Chloride 107, Carbon Dioxide 29.0, Anion Gap 6, BUN 19 H, Creatinine 1.54 H, Estim Creat Clear Calc 40.82, Est GFR (MDRD) Af Amer 56 L, Est GFR (MDRD) Non-Af 47 L, BUN/Creatinine Ratio 12.3, Glucose 111 H, Calcium 9.5, Total Bilirubin 0.90, Direct Bilirubin 0.24, AST 14 L, ALT < 6 L, Alkaline Phosphatase 96, Total Protein 7.0, Albumin 3.8, Globulin 3.2, Lipase 64 08/18/23 03:20: Lactic Acid 1.1 Imaging Radiology Impression Abdomen/Pelvis CT 08/18/23 03:12 IMPRESSION: Abnormal appearance of the gallbladder which is distended. Cholelithiasis. Inflammatory changes are present with associated intrahepatic biliary ductal dilatation. Findings suspicious for acute cholecystitis. Additional chronic changes as detailed above. Electronically Signed: Emmanuel Rivero MD at 5:16 EDT , Gallbladder Ultrasound 08/18/23 05:58 IMPRESSION: Fatty infiltration of the liver. Hepatic cysts. Multiple gallstones and sludge seen in the gallbladder lumen. Small amount of pericholecystic fluid. Gallbladder wall thickening. Right renal cyst. Electronically Signed: Cuong Reynolds MD at 8:21 EDT , Assessment & Plan Assessment/Plan (1) Acute calculous cholecystitis: (2) Hypertension: (3) Parkinson's disease: PLAN: Plan Reviewed the anatomy with the patient and discussed the procedure: laparoscopic cholecystectomy with possible cholangiograms, possible open. Review risks including but not limited to bleeding, infection, hernia, bile leak, retained gallstones requiring another procedure ERCP- Endoscopic Retrograde Cholangiopancreatography, injury to another organ (bile ducts, common bile duct, small bowel, etc.) and conversion to an open procedure. All questions were answered. Geovanna Parsons M.D. Pager: [phone] [facility] [address] [place] [address], [facility], [address] [place] [address] Office: [phone]
[2023-08-18] MEDS: Metoprolol Tartrate 25 MG Tablet PO (11:26)
[2023-08-18] MEDS: 0.9% Normal Saline (1000mL) 1,000 ML 100 ML IV ×2 (11:27→18:00)
--- NOTE | 2023-08-18 13:59 | RAD_ITS ---
STUDY: INTRAOPERATIVE CHOLANGIOGRAM. REASON FOR EXAM: Male, 78 years old. LAP SHIMA FLUOROSCOPY TIME (if supplied): ( 5.3 seconds ) minutes/seconds. 2.55 mGy TECHNIQUE: An intraoperative cholangiogram was performed by the surgeon. Imaging was submitted. COMPARISON: None. FINDINGS: The intra and extrahepatic biliary ducts are unremarkable. No intraluminal filling defect is seen. RAD/Cholangiogram/ O R,Initial IMPRESSION: Unremarkable intraoperative cholangiogram. Electronically Signed: Cuong Reynolds MD at 14:59 EDT ,
--- NOTE | 2023-08-18 14:59 | PCM.OPRPT ---
Report of Operation Date of Procedure: 08/18/23 Pre-Operative Diagnosis: acute cholecystitis, cholelithiasis Post-Operative Diagnosis: Acute gangrenous calculus cholecystitis Surgery/Procedure Performed:: Laparoscopic cholecystectomy with cholangiograms, placement of NIRAV Surgeon: Geovanna Parsons dehydrogenation converter helper: Ray Earl Type of Anesthesia: General/Supplemental Anesthesiologist: Sai Montejo Special Medications: Zosyn 3.375 g IV every 8 hours for acute cholecystitis Specimen's removed: Gallbladder Drains: 15 Albanian NIRAV Estimated Blood Loss (mL): 30 cc Fluids Replaced: 800 cc Description of Procedure: Indications: this is a 78 year-old male who developed abdominal pain/nausea/vomiting and on workup was found to have acute cholecystitis, cholelithiasis, with a normal common bile duct. Laparoscopic cholecystectomy was elected. Description procedure: The patient was placed on operating table in supine position. A timeout was completed verifying correct patient, procedure, site, position and special equipment prior to beginning procedure. General Anesthesia was induced. The abdomen was prepped and draped in usual sterile fashion. An incision was made in the natural skin line above the umbilicus. The fascia was elevated and incised. The peritoneum was elevated and incised. Entry into the peritoneum was confirmed visually and no bowel was noted in the vicinity of the incision. Leos trocar was placed. The abdomen was insufflated with carbon dioxide to a pressure of 12-15 mmHg. Patient tolerated insufflation well. The laparoscope was then inserted and abdomen inspected. No injuries from initial trocar placement were noted. Additional trochars were then inserted in the following locations 5 mm trocar in the epigastrium and 2 more 5 mm trochars along the right costal margin. The abdomen was inspected no abnormalities gallbladder was noted to be inflamed/gangrenous in spots no perforation. The table is placed in reverse Trendelenburg position with the right side up. The dome of the gallbladder was grasped with atraumatic grasper passed through the lateral port and retracted over the dome of the liver. Infundibulum was then grasped with atraumatic grasper through the midclavicular port and retracted to the right lower quadrant. This maneuver exposed Calot's triangle. The peritoneum overlying the gallbladder infundibulum was then incised and cystic duct and artery identified and circumferentially dissected. Ricci catheter was used for cholangiograms. The cholangiogram showed good filling of the common bile duct into the duodenum with no filling defects, good filling of the right and left bile ducts as well. The cystic duct and artery were then doubly clipped and divided close to the gallbladder. The gallbladder then dissected from its peritoneal attachments by electrocautery. Hemostasis was checked and the gallbladder and contained stones were removed using the endoscopic retrieval bag through the umbilical port. The gallbladder is passed off table as specimen. The gallbladder fossa was irrigated with saline and hemostasis obtained using Erby. There is no evidence of bleeding from the gallbladder fossa or cystic artery leakage of bile from the cystic duct stump. 15 Albanian NIRAV was placed in the right upper quadrant from the lateral right trocar site. This was secured with 3-0 nylon. Secondary trochars removed under direct vision. No bleeding was noted the trocar sites. The laparoscope was withdrawn and umbilical trocar removed. The abdomen was allowed to collapse. The fascia of the 12 mm trocar was closed with a [id number] 0 Vicryl suture. The skin was closed with sutures of 4-0 Monocryl and Steri-Strips. The patient was extubated. The patient tolerated procedure well and was taken to the postanesthesia care unit in stable condition. Complications none
--- NOTE | 2023-08-18 15:04 | DCINST_ITS ---
Discharge Instructions Diet Discharge Diet: Light diet - advance as tolerated Activity Discharge Activity: May Not Drive (while taking narcotic pain medications.) May shower in (days): 1 Lifting Restrictions: no lifting >20 lbs x 2 wks, no strenuous exercise for 4 wks Dressing / Incision Call your doctor if your incision/area has: Continuous Slow Oozing, Sudden Increased Bleeding, Increased Pain/ Swelling, Increased Redness, Foul Smelling Discharge and Swelling at the incision site Call your doctor if you observe: Fever of 101 or Higher Remove Dressing in: 2 days Cleanse incision/area with: Soap & Water Additional Dressing/Incision Instructions:: Steri-Strips will fall off in 7 to 10 days, if they do not fall off okay to remove after 10 days. Follow Up Care Please Follow Up With: Geovanna Parsons MD When: Call the office for a follow-up appointment 2 weeks; after 5 PM and on the weekends call [phone] with any concerns. Test Results: Test results from this visit will be discussed in further detail at your follow- up appointment, if applicable. Discharge Plan Admission Admit Date/Time: 08/18/23 09:16 Attending Provider: Geovanna Parsons Primary Care Provider: Brandon Cantor Instructions Additional Instructions / Restrictions: hold ASA 81 mg for 4 days. Discharge Orders/Prescriptions Prescriptions: New tramadol 50 mg tablet 50 mg PO Q6H PRN (Reason: pain) Qty: 10 0RF Continued carbidopa-levodopa 25-100 mg tablet 1 tab PO TID lorazepam [Ativan] 1 mg tablet 1 mg PO DAILY PRN (Reason: Anxiety) methimazole 5 mg tablet 5 mg PO DAILY Qty: 30 6RF pantoprazole 40 mg tablet,delayed release (DR/EC) 40 mg PO DAILY 30 Days Qty: 30 11RF cholestyramine (with sugar) 4 gram powder 1 g PO HS Qty: 348.6 0RF Rx Instructions: administer w/meal; avoid other meds within 1hr before or 4-6hr after dose cholecalciferol (vitamin D3) [Vitamin D3] 25 mcg (1,000 unit) Tablet 25 mcg PO DAILY potassium chloride 10 mEq capsule, extended release 10 meq PO BID metoprolol tartrate 25 mg tablet 25 mg PO DAILY paroxetine HCl 20 mg tablet 20 mg PO DAILY MDD T isosorbide mononitrate 30 mg tablet extended release 24 hr 30 mg PO DAILY atorvastatin 20 mg tablet 20 mg PO QHS Referrals / Follow Up: Brandon Cantor MD [Primary Care Provider] - Disposition Disposition (needs filled in before D/C Order can be placed): Home, Self Care
[2023-08-18] MEDS: Bupivacaine Mpf 0.5% 30 ML VIAL (15:06)
[2023-08-18] MEDS: Paroxetine 20 MG Tablet PO (18:37)
[2023-08-18] MEDS: Pantoprazole Sodium 40 MG in 0.9% Normal Saline (100mL MB+) 100 ML 330 MG IV (18:37)
[2023-08-18] MEDS: Carbidopa/Levodopa 25/100 Tablet PO (18:37)
[2023-08-18] MEDS: Acetaminophen 325 MG Tablet 650 MG PO (20:45)
[2023-08-18] MEDS: Atorvastatin Calcium 20 MG Tablet PO (20:46)
[2023-08-19] VITALS (11 sets, daily range): BP systolic 126–176; BP diastolic 60–80; PULSE 58–79; RESP 18–20; TEMP 36.6–36.9; O2SAT 87–98; BMI 26.9
[2023-08-19] MEDS: Acetaminophen 325 MG Tablet 650 MG PO ×3 (03:47→21:34)
[2023-08-19] MEDS: 0.9% Normal Saline (1000mL) 1,000 ML 100 ML IV (04:29)
[2023-08-19] MEDS: Piperacil/Tazobactam 3.375 GM in 0.9% Normal Saline (50mL MB+) 50 ML IV (05:08)
[2023-08-19] MEDS: Carbidopa/Levodopa 25/100 Tablet PO ×3 (05:33→16:57)
[2023-08-19] MEDS: Metoprolol Tartrate 25 MG Tablet PO (09:35)
[2023-08-19] MEDS: Paroxetine 20 MG Tablet PO (09:35)
[2023-08-19] MEDS: Isosorbide Mononitrate 30 MG Tablet PO (09:35)
[2023-08-19] MEDS: Potassium Chloride Oral Tablet 10 MEQ PO ×2 (09:36→16:57)
[2023-08-19] MEDS: Methimazole 5 MG Tablet PO (09:36)
[2023-08-19] MEDS: Pantoprazole Sodium 40 MG in 0.9% Normal Saline (100mL MB+) 100 ML 330 MG IV (09:39)
--- NOTE | 2023-08-19 13:45 | PN.SURG_ITS ---
Subjective Subjective Patient seen and examined during AM rounds. I was notified via text message overnight the patient was in retention and authorize straight catheterization. Patient states following that catheterization he had significant relief of his abdominal discomfort and reports an output of 700 mL. He states that his abdomi nal discomfort remains much improved over his intake. He still has some soreness at his abdominal wall. Nursing reports that they were not able to wean patient's oxygen and that he remains unsteady when ambulating with assistance. Asked about this patient states that there is no way he is able to go home in this condition. Objective Data Objective Data Vital Signs: Vital Signs Temp Pulse Resp BP Pulse Ox O2 Del Method O2 Flow Rate 98.4 F 76 18 176/67 H 96 Nasal Cannula 2 08/19/23 09:26 08/19/23 09:35 08/19/23 09:26 08/19/23 09:26 08/19/23 11:27 08/19/23 11:27 08/19/23 11:27 Oxygen Flow Rate (L/min) 2 Oxygen Delivery Method Nasal Cannula Weight: 188 lb 0.869 oz Body Mass Index (BMI) 26.9 Intake & Output: Intake and Output for Last 24 Hours 08/17/23 08/18/23 08/19/23 23:59 23:59 23:59 Intake Total 1365 / 1605 1892.25 / 1892.25 Output Total 255 / 285 750 / 750 Balance 1110 / 1320 1142.25 / 1142.25 Lab / Micro Data 08/18/23 02:55 08/18/23 02:55 Radiography Diagnostic Testing: Radiology Impression Cholangiogram 08/18/23 13:59 IMPRESSION: Unremarkable intraoperative cholangiogram. Electronically Signed: Cuong Reynolds MD at 14:59 EDT , Physical Exam Const oriented x3 Resp Resp Narrative: Mildly tachypneic with shallow respirations on nasal cannula GI GI Narrative: Mildly distended, operative dressings intact without strikethrough. Right upper quadrant drain with serosanguineous output and slight clot in the tubing that is stripped through. Expected tenderness to palpation Assessment & Plan Assessment/Plan (1) Acute calculous cholecystitis: PLAN: Patient is a 78-year-old male status post laparoscopic cholecystectomy with intraoperative cholangiography by Dr. Parsons yesterday. Overall he is recovering well on the floor. However, his recovery was complicated by some urinary retention yesterday that was managed with a simple and out catheterization but he is yet to void spontaneously today. I discussed simply placing a Crawford if he is unable to void again today. I have started him back on Flomax. He does have a history of retention. Additionally patient has a new oxygen requirement and has been unsteady on his feet. I will look to gently diurese him today and Hep-Lock his fluids in addition to her current I-S. As far as his weakness, PT OT was ordered await their formal evaluation Charges/Coding Visit Charges Inpatient E&M: 62043 Subs Hosp L2
[2023-08-19] MEDS: Furosemide 20 MG/2 ML VIAL 10 MG IV (13:51)
[2023-08-19] MEDS: 0.9% Saline Lock 10 ML Syringe IV ×2 (13:53→21:36)
[2023-08-19] MEDS: Tamsulosin HCl 0.4 MG Capsule PO (16:58)
--- NOTE | 2023-08-19 19:29 | CASEMGMT ---
SAADIA SOL in to complete WRIGHT form with patient. RN EBENEZER explained WRIGHT form to patient, patient voiced understanding. Patient signed WRIGHT form and filed in chart. Patient states he has concerns regarding discharge home and not sure if will be able to assist at home. SAADIA SOL discussed progress with therapy and may need additional therapy at discharge. Patient also on oxygen and not on at home. Per nursing, patient anticipated to stay through weekend. CM will continue to follow progress with therapy and plan for a safe discharge.
[2023-08-19] MEDS: Atorvastatin Calcium 20 MG Tablet PO (21:35)
[2023-08-20] VITALS (9 sets, daily range): BP systolic 124–161; BP diastolic 72–75; PULSE 57–89; RESP 14–20; TEMP 36.5–36.8; O2SAT 91–97
[2023-08-20] MEDS: Acetaminophen 325 MG Tablet 650 MG PO ×2 (06:43→20:49)
[2023-08-20] MEDS: Carbidopa/Levodopa 25/100 Tablet PO ×3 (06:43→17:00)
--- NOTE | 2023-08-20 09:05 | PN.SURG_ITS ---
Subjective Subjective Patient seen and examined during AM rounds. He is found resting in the chair. He states that he was pleasantly surprised how much better he did with therapy today and is feeling stronger. He also denies as much abdominal discomfort. He still expresses some reservations about returning home as he does not believe he is quite strong enough. Lastly, he complains of some dry eye and wishes to have some drops ordered. Objective Data Objective Data Vital Signs: Vital Signs Temp Pulse Resp BP Pulse Ox O2 Del Method O2 Flow Rate 97.7 F L 71 20 H 160/75 H 93 Nasal Cannula 2 08/20/23 06:15 08/20/23 06:15 08/20/23 06:15 08/20/23 06:15 08/20/23 07:58 08/20/23 06:15 08/20/23 07:58 Oxygen Flow Rate (L/min) 2 Oxygen Delivery Method Nasal Cannula Weight: 188 lb 0.869 oz Body Mass Index (BMI) 26.9 Intake & Output: Intake and Output for Last 24 Hours 08/18/23 08/19/23 08/20/23 23:59 23:59 23:59 Intake Total 1365 / 1605 1942.00 / 1942.00 500 / 500 Output Total 255 / 285 1525 / 2125 1100 / 1100 Balance 1110 / 1320 417.00 / -183.00 -600 / -600 Lab / Micro Data 08/18/23 02:55 08/18/23 02:55 Physical Exam Const oriented x3 and no apparent distress Resp normal respiratory effort Resp Narrative: Nasal cannula in place GI GI Narrative: Mildly distended, operative dressings intact initially I removed and there is just crusted drainage to patient's Steri-Strips. He is minimally tender with pa lpation. Drain site in the right upper quadrant demonstrates a clean and dry dressing in that is intact. Assessment & Plan Assessment/Plan (1) Acute calculous cholecystitis: PLAN: Patient is postoperative day 2 from laparoscopic cholecystectomy with intraoperative cholangiogram. Overall he is doing well from a recovery from the surgery and has minimal pain complaints. His drain was pulled yesterday and that site is appropriate. Unfortunately discharge was held yesterday on the account of urinary retention, some mild hypoxia requiring ongoing oxygen needs, and patient reported weakness/lack of comfort with being able to go home safely. (2) Constipation: PLAN: Last bowel movement was now 3 days ago. Patient exhibits mild distention. MiraLAX ordered daily starting today (3) Acute urinary retention: PLAN: Patient with urinary retention after 1 straight catheterization prior. He has a history of BPH status post TURP and I restarted tamsulosin at the time of Crawford catheter placement yesterday. Urine output appears appropriate now. Will plan to discharge with Crawford catheter (4) Weakness: PLAN: Patient reports improvements in his ability to work with PT OT today. Still believes that he may be too weak to return home safely (5) Hypoxia: PLAN: Patient requiring supplemental oxygen to maintain sat greater than 90%. Diuresis with 1 dose of Lasix performed yesterday. Patient has been good about sitting out of bed in a chair to optimize his respiratory mechanics. Will look to try to wean oxygen today. Charges/Coding Visit Charges Inpatient E&M: 30041 Subs Hosp L2
[2023-08-20] MEDS: Polyethylene Glycol 3350 17 GM PACKET PO (09:28)
[2023-08-20] MEDS: Isosorbide Mononitrate 30 MG Tablet PO (09:28)
[2023-08-20] MEDS: Paroxetine 20 MG Tablet PO (09:29)
[2023-08-20] MEDS: Pantoprazole Sodium 40 MG in 0.9% Normal Saline (100mL MB+) 100 ML 330 MG IV (09:29)
[2023-08-20] MEDS: Metoprolol Tartrate 25 MG Tablet PO (09:29)
[2023-08-20] MEDS: Methimazole 5 MG Tablet PO (09:30)
[2023-08-20] MEDS: Pantoprazole Sodium 40 MG Tablet PO (11:34)
--- NOTE | 2023-08-20 12:58 | NURSING ---
THis RN is aware of Vital Signs taken at 1100 this morning by Loretta Hastings LPN.
--- NOTE | 2023-08-20 14:17 | NURSING ---
This RN looked at Loretta Hastings LPN Charting and agrees with charting.
[2023-08-20] MEDS: CARBOXYMETHYLCELLULOSE SODIUM 1 DRP DROPS OPHTHALMIC (14:26)
--- NOTE | 2023-08-20 15:40 | NURSING ---
This RN is aware of Hand off Communication by Loretta Hastings LPN
[2023-08-20] MEDS: Tamsulosin HCl 0.4 MG Capsule PO (17:01)
[2023-08-20] MEDS: Atorvastatin Calcium 20 MG Tablet PO (20:50)
[2023-08-20] MEDS: 0.9% Saline Lock 10 ML Syringe IV (20:50)
[2023-08-21 04:50] VITALS: BP 162/69; PULSE 73; RESP 18; TEMP 36.5; O2SAT 91
[2023-08-21 04:54] VITALS: BP 162/69; PULSE 73
[2023-08-21] MEDS: Acetaminophen 325 MG Tablet 650 MG PO (04:54)
[2023-08-21] MEDS: Metoprolol Tartrate 25 MG Tablet PO (04:54)
[2023-08-21] MEDS: Carbidopa/Levodopa 25/100 Tablet PO ×2 (04:55→10:54)
[2023-08-21] MEDS: CARBOXYMETHYLCELLULOSE SODIUM 1 DRP DROPS OPHTHALMIC (04:56)
[2023-08-21 09:00] VITALS: O2SAT 93
[2023-08-21] MEDS: Potassium Chloride Oral Tablet 10 MEQ PO (09:01)
[2023-08-21] MEDS: Methimazole 5 MG Tablet PO (09:02)
[2023-08-21] MEDS: Isosorbide Mononitrate 30 MG Tablet PO (09:02)
[2023-08-21] MEDS: Paroxetine 20 MG Tablet PO (09:02)
[2023-08-21] MEDS: Pantoprazole Sodium 40 MG Tablet PO (09:02)
[2023-08-21] MEDS: Polyethylene Glycol 3350 17 GM PACKET PO (09:06)
[2023-08-21 09:07] VITALS: BP 126/62; PULSE 77; RESP 18; TEMP 37.2; O2SAT 94
--- NOTE | 2023-08-21 09:08 | PCM.PN.SRG ---
Objective Data Objective Data Vital Signs: Vital Signs Temp Pulse Resp BP Pulse Ox O2 Del Method O2 Flow Rate 98.9 F 77 18 126/62 H 94 Room Air 2 08/21/23 09:07 08/21/23 09:07 08/21/23 09:07 08/21/23 09:07 08/21/23 09:07 08/21/23 09:07 08/20/23 07:58 Oxygen Flow Rate (L/min) 2 Oxygen Delivery Method Room Air Weight: 188 lb 0.869 oz Body Mass Index (BMI) 26.9 Intake & Output: Intake and Output for Last 24 Hours 08/19/23 08/20/23 08/21/23 23:59 23:59 23:59 Intake Total 1942.00 / 1942.00 1590 / 2090 500 / 500 Output Total 1525 / 2125 1100 / 1925 1350 / 1350 Balance 417.00 / -183.00 490 / 165 -850 / -850 Lab / Micro Data 08/18/23 02:55 08/18/23 02:55
--- NOTE | 2023-08-21 10:43 | DS.PCM_ITS ---
Providers Date of Admission: 08/20/23 Primary Care Physician: Dr. Brandon Cantor MD Reason For Visit: ACUTE CHOLECYSTITIS Diagnosis Discharge Diagnosis (1) Acute calculous cholecystitis: Status: Acute Code(s): K80.00 - Calculus of gallbladder with acute cholecystitis without obstruction (2) Constipation: Status: Acute Code(s): K59.00 - Constipation, unspecified (3) Acute urinary retention: Status: Inactive Code(s): R33.8 - Other retention of urine (4) Weakness: Status: Acute Code(s): R53.1 - Weakness (5) Hypoxia: Status: Acute Code(s): R09.02 - Hypoxemia Medications at Discharge Home Medications metoprolol tartrate 25 mg tablet 25 mg PO DAILY heart 04/15/21 potassium chloride 10 mEq capsule,extended release 10 meq PO BID supplement 04/15/21 cholecalciferol (vitamin D3) 25 mcg (1,000 unit) tablet (Vitamin D3) 25 mcg PO DAILY health maintenance 07/07/21 carbidopa 25 mg-levodopa 100 mg tablet 1 tab PO TID PARKINSONS 10/18/21 isosorbide mononitrate 30 mg tablet,extended release 24 hr 30 mg PO DAILY ANGINA 10/18/21 lorazepam 1 mg tablet (Ativan) 1 mg PO DAILY PRN Anxiety 12/01/21 paroxetine HCl 20 mg tablet 20 mg PO DAILY DEPRESSION 12/07/21 atorvastatin 20 mg tablet 20 mg PO QHS CHOLESTEROL 02/08/22 methimazole 5 mg tablet 5 mg PO DAILY THYROID #30 tabs 03/09/23 cholestyramine (with sugar) 4 gram oral powder 1 g PO HS #348.6 grams 06/14/23 pantoprazole 40 mg tablet,delayed release 40 mg PO DAILY 30 days #30 tabs 06/14/23 tramadol 50 mg tablet 50 mg PO Q6H PRN pain #10 tabs 08/18/23 tamsulosin 0.4 mg capsule 0.4 mg PO QHS #14 caps 08/21/23 Hospital Course Operations cholecystecomy (Laparoscopic cholecystectomy with cholangiograms, placement of NIRAV) Summary of Care Provided Minutes Spent on Discharge: 30 Hospital Course: Patient presented to the ED with abdominal pain. He was found to have acute cholecystitis. Dr. Parsons performed a Laparoscopic cholecystectomy with cholangiograms, placement of NIRAV on 08/18/23. Patient tolerated the procedure well. Patient had an uneventful hospitalization. Upon discharge, patient continued to have a Crawford catheter in place as he had urinary retention. Patient was discharged with Crawford catheter in place and instructed to continue Flomax at home and he will return to our office on Monday at 07:45 AM to have the Crawford catheter removed. He was tolerating a diet upon discharge. He denies nausea, vomiting, fever. He denies abdominal incisional pain. Physical Exam GI normal to inspection, nondistended, normoactive bowel sounds, soft to palpation and non-tender GI Narrative: Abdomen- incisions c/d/i. No erythema or infection noted. Weight / BMI Weight Weight: 188 lb 0.869 oz Body Mass Index (BMI) 26.9 ABG / Lab / Microbiology Data 08/18/23 02:55 08/18/23 02:55 D/C Instructions Discharge Diet: Light diet - advance as tolerated May shower in (days): 1 Call your doctor if your incision/area has: Continuous Slow Oozing, Sudden Increased Bleeding, Increased Pain/ Swelling, Increased Redness, Foul Smelling Discharge and Swelling at the incision site Call your doctor if you observe: Fever of 101 or Higher Cleanse incision/area with: Soap & Water Additional Dressing/Incision Instructions: Steri-Strips will fall off in 7 to 10 days, if they do not fall off okay to remove after 10 days. Please Follow Up With: Geovanna Parsons MD When: Call the office for a follow-up appointment 2 weeks; after 5 PM and on the weekends call [phone] with any concerns. Meaningful Use Info Meaningful Use Diagnoses (Choose all that apply): None applicable Discharge Plan Admission Admit Date/Time: 08/20/23 10:56 Primary Reason for Your Visit: Acute Cholecysitis Attending Provider: Geovanna Parsons Primary Care Provider: Brandon Cantor Instructions Additional Instructions / Restrictions: Cholecystectomy Diet ? Start light with soups and soft bland foods. You may advance diet as tolerated. Activity ? You may drive in 3-5 days but not while taking narcotic pain medication. ? I encourage walking. You may go up steps, one at a time. ? Do not swim or use hot tubs for 2 weeks. ? For comfort, you may use warm compresses or ice as needed for 15-20 minutes at a time. Lifting ? You may lift up to 20 pounds for 2 weeks. Dressings/Incision ? You may shower OVER your plastic dressings ? Do NOT tub bathe for 1 week ? Leave plastic dressings on for 2 days. ? When plastic dressings are removed, you will find steri strips. It is okay to continue showering with them in place, pat them dry. ? You may remove steri-strips after 1 week. We recommend getting them soaking wet for easier removal. Medications ? Anesthesia used during surgery and pain medications may cause constipation. I recommend initiating on the day of surgery a fiber supplement like, Metamucil, Citrucel, FiberCon, Benefiber, or a generic form of these medications. 1 heaping tablespoon in water daily. You may continue to utilize any bowel regimen or oral laxatives that you routinely take. ? As long as you are not intolerant to Tylenol, acetaminophen, ibuprofen, Motrin, Advil, Aleve, or similar medications, I would recommend transitioning to these [id number] medicines as soon as possible instead of continued use of narcotic pain medication. Follow up ? You should call [facility] soon after surgery, at [phone] option 1 to make a follow up appointment for 7-10 days after your surgery. Discharge Orders/Prescriptions Prescriptions: New tramadol 50 mg tablet 50 mg PO Q6H PRN (Reason: pain) Qty: 10 0RF tamsulosin 0.4 mg Capsule 0.4 mg PO QHS Qty: 14 0RF Continued carbidopa-levodopa 25-100 mg tablet 1 tab PO TID lorazepam [Ativan] 1 mg tablet 1 mg PO DAILY PRN (Reason: Anxiety) methimazole 5 mg tablet 5 mg PO DAILY Qty: 30 6RF pantoprazole 40 mg tablet,delayed release (DR/EC) 40 mg PO DAILY 30 Days Qty: 30 11RF cholestyramine (with sugar) 4 gram powder 1 g PO HS Qty: 348.6 0RF Rx Instructions: administer w/meal; avoid other meds within 1hr before or 4-6hr after dose cholecalciferol (vitamin D3) [Vitamin D3] 25 mcg (1,000 unit) Tablet 25 mcg PO DAILY potassium chloride 10 mEq capsule, extended release 10 meq PO BID metoprolol tartrate 25 mg tablet 25 mg PO DAILY paroxetine HCl 20 mg tablet 20 mg PO DAILY MDD T isosorbide mononitrate 30 mg tablet extended release 24 hr 30 mg PO DAILY atorvastatin 20 mg tablet 20 mg PO QHS Referrals / Follow Up: Geovanna Parsons MD [Med Staff - Active Staff] - (Please call our office for a 2 week appointment after your surgery date to follow-up) Brandon Cantor MD [Primary Care Provider] - Daja Monsivais PA-C [Med Staff - Adv Practice Prof] - 08/23/23 7:45 am Disposition Disposition (needs filled in before D/C Order can be placed): Home, Self Care Charges/Coding Visit Charges Inpatient E&M: 98510 Disch Hosp (no charge; post-op)
--- NOTE | 2023-08-21 11:05 | PHA.DC_ITS ---
Pharmacy [facility] has performed discharge medication reconciliation and counseling for this patient. The patient's discharge medication list was reviewed for discrepancies and discrepancies were resolved. The patient was counseled on the following discharge medications and changes in medications for homegoing were reviewed. The Reason for Use, instructions for use, and potential side effects were reviewed for all new medications. The patient's questions regarding all of their medications were answered. 1. Tamsulosin 0.4 mg PO QHS 2. Tramadol 50 mg PO Q6H PRN pain The patient was able to verbally demonstrate an understanding of their discharge medications. Medications at Discharge Home Medications metoprolol tartrate 25 mg tablet 25 mg PO DAILY heart 04/15/21 potassium chloride 10 mEq capsule,extended release 10 meq PO BID supplement 04/15/21 cholecalciferol (vitamin D3) 25 mcg (1,000 unit) tablet (Vitamin D3) 25 mcg PO DAILY health maintenance 07/07/21 carbidopa 25 mg-levodopa 100 mg tablet 1 tab PO TID PARKINSONS 10/18/21 isosorbide mononitrate 30 mg tablet,extended release 24 hr 30 mg PO DAILY ANGINA 10/18/21 lorazepam 1 mg tablet (Ativan) 1 mg PO DAILY PRN Anxiety 12/01/21 paroxetine HCl 20 mg tablet 20 mg PO DAILY DEPRESSION 12/07/21 atorvastatin 20 mg tablet 20 mg PO QHS CHOLESTEROL 02/08/22 methimazole 5 mg tablet 5 mg PO DAILY THYROID #30 tabs 03/09/23 cholestyramine (with sugar) 4 gram oral powder 1 g PO HS #348.6 grams 06/14/23 pantoprazole 40 mg tablet,delayed release 40 mg PO DAILY 30 days #30 tabs 06/14/23 tramadol 50 mg tablet 50 mg PO Q6H PRN pain #10 tabs 08/18/23 tamsulosin 0.4 mg capsule 0.4 mg PO QHS #14 caps 08/21/23
--- NOTE | 2023-08-21 11:05 | CASEMGMT ---
SAADIA SOL Assessment Face to Face with patient for initial transition planning/care coordination assessment. SAADIA SOL introduced self and role at [facility], pt voices understanding. Pt is A&Ox4 and is resting comfortably in the chair and is calm. Care providers, pharmacy, and demographics verified. Admitting dx: Acute Cholecystitis PCP: Devaughn Specialists: I[facility], Marquis Murray (Endo), Pt also reports seeing a Neurologist through [facility] for Parkinson's Preferred Pharmacy: [facility] Insurance: [employer] [facility] Prescription Benefit: Yes LNOK: Madison Greta (W), Ninoska Greta (MEREDITH) Living Arrangements: Pt lives with his in a single story home with a BM with HR and 3 steps to enter without a HR. ADLs/IADLs: states Ind Transportation: Self, DME: Pt states that he uses a cane at home. Pt states that he and his have a rollator, FWW, and W/C but the pt does not use. Walk in shower with chair. Pt denies all other DME uses or needs. HHC/SNF: History of HHC in 2015 regarding a colostomy. States history at [facility] in 2018. Pt?s goal: Home Plan: Pt denies the need for HHC or OP therapy at this time and states that he wants to DC home today via his with no additional needs at time of assessment. This SAADIA SOL reviewed how the pt did with therapy and the pt states that he feels safe and comfortable discharging today without any additional therapy set up. Jena Franklin RN, CM
[2023-08-21 13:35] VITALS: BP 123/55; PULSE 64; RESP 18; TEMP 36.9; O2SAT 94
== END 2023-08-21 15:30 | disposition home or self-care (01) | DRG 419 ==
LOC: ED 09:22 → MS3 09:53
PROVIDERS: Admitting Provider Surgery; Emergency Provider Emergency Medicine; PCP Internal Medicine; Visit Provider Surgery
PROC: (CPT 47610; principal; 2023-08-18 13:25)
DX: K80.00 Calculus of gallbladder with acute cholecystitis without obstruction (principal); E78.00 Pure hypercholesterolemia, unspecified; G20.A1 Parkinson's disease without dyskinesia, without mention of fluctuations; I10 Essential (primary) hypertension; K59.00 Constipation, unspecified; N40.1 Benign prostatic hyperplasia with lower urinary tract symptoms; R33.8 Other retention of urine; R09.02 Hypoxemia; R53.1 Weakness; Z90.5 Acquired absence of kidney; Z79.82 Long term (current) use of aspirin; Z79.899 Other long term (current) drug therapy; Z87.891 Personal history of nicotine dependence
CPT/HCPCS: 51702; 74177; 74300; 76000; 76705; 80048; 80076; 83605; 83690; 85025; 88304; 93005; 94668; 97110; 97116; 97162; 97166; 97530; 97535; 99252; 99283; J7030; Q9967; A4216; G0463; J1940; J2405

== ENCOUNTER → 2023-09-12 | Outpatient (CLI) | payer MEDICARE, SELFPAY ==
[2023-09-12 15:55] LABS: Free T3 2.1 pg/mL (2.18-3.98); Thyroid Stim Hormone (TSH) 0.84 uIU/mL (0.358-3.74)
== END | disposition home or self-care (01) ==
LOC: LAB 13:40
PROVIDERS: PCP Internal Medicine; Referring Provider Internal Medicine Endocrinology, Diabetes & Metabolism; Visit Provider Internal Medicine Endocrinology, Diabetes & Metabolism
DX: I10 Essential (primary) hypertension (principal); E05.90 Thyrotoxicosis, unspecified without thyrotoxic crisis or storm
CPT/HCPCS: 36415; 84439; 84443; 84481

== ENCOUNTER 2024-04-09 11:37 | Day surgery (SDC) | payer MEDICARE, SELFPAY ==
[2024-04-09] VITALS (9 sets, daily range): BP systolic 97–152; BP diastolic 53–88; PULSE 63–78; RESP 14–18; TEMP 36.5–37.1; O2SAT 92–94; BMI 26.5
--- NOTE | 2024-04-09 12:23 | HP.PCM_ITS ---
History and Physical Date of Admission: 04/09/24 Chief Complaint: Hyperthyroidism Details: MARTA OLIVIA, is a 78 M who presents to the office today for follow up. [facility] ED 11.14.21 with suspicion of repeat pseudomembranous enterocolitis. Prior imaging: CT abd/pel 01.06.22 for abdominal pain/ renal cancer finding multiple gallstones; multiple hypodensities of liver; evidence of prior small bowel surgery; renal mass, recommend MRI/CT. *BGI established 03.01.22 with watery loose stools, abdominal cramping and weight loss for a year. Weight loss largely r/t several hospitalizations for kidney, prostate and knee surgeries; since these have stabilized weight has been trending upward. CDI history 2014+, +, negative. Colonoscopy 04.26.22 eight sessile TA polyps; end-to-end colo-colonic anastomosis, patent; congested mucosa of colon; extensive stool in cecum; TI moderate stenosis, balloon 15mm, resolved; diverticulosis; melanosis coli on pathology. OV 05.10.22 loose stool resolved following polypectomy; one episode which he feels was r/t excessive chocolate. OV 06.23.22 with return of loose stools three times a week with cramping and nocturnal presence. Notes some dietary triggers. ? Biochemical CBC, ESR, CMP, LDH, CRP, GAME, NICOLE comp, celiac without pertinent abnormality. ? AST L13-ALT H88-AX46, apANCA H1:160 ? Stool calprotectin, lactoferrin, C.difficile WNL OV 3 with spontaneous improvement of loose stools; though continues with nocturnal cramping and loose stools several times a week. Start Lomotil. Contact 09.27.22 with ongoing cramping, start dicyclomine. Contact 10.14.22 for update; reports ongoing loose stools, particularly nocturnal. Reports 18inches of bowel removed to address benign tumor. Has increased dicyclomine to 20mg QHS. Start colestipol. Call back in two weeks with update. Contact 10.28.22 increase colestipol to 2g QHS. Contact 11.16.22 Bowels have been fluctuating between soft stools with intermittent episodes of loose stools; this is improved from previously, continue colestipol 2g QHS. ? Biochemical Crohn?s (apANCA, Marvin), Vasculitis profile abnormality ? Capsule endoscopy 01.12.23 multiple sites of bleeding noted in stomach. Capsule did not leave stomach during exam. EGD 02.02.2323 Grade I upper EV; LA Grade B esophagitis, metaplasia +; Schatzki ring, Savary 45F; retained gastric content; gastritis; pyloric stenosis, mild and traversed; extrinsic deformity of duodenal bulb, gastric metaplasia Biochemical 02.02.23 gastrin WNL GET 02.21.23 242.4minutes (12-56) Contact, 02.27.23 requesting callback. Upper esophageal varices are indicative of cardiac disease; follows with Dr. 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 Dr. Mortensen updated 03.02.23. Gastroparesis is noted and likely r/t pyloric stenosis, needs repeat EGD with Botox. EGD 04.19.23 LA Grade A esophagitis; small hiatal hernia; pyloric stenosis, TTS dilator 15mm; food residue gastric body, Botox; upper esophageal varices, Grade I; single 5mm AVM. No specimens OV 1- Pt doing well since last visit. Still wakes up in the night with diarrhea but only a few times a week now. Minimal abdominal pain. Is not having heartburn or trouble swallowing. OV 7 pt reports that he is feeling well overall. Pt states that about 6 weeks ago he stopped having diarrhea and is now having 1-2 soft bm per day; denies blood in the stool. Pt reports that he had a cholecystectomy on 08.18.23 and has been feeling well since. Continues with cholestyramine and pantoprazole. ROS Const Constitutional: No fatigue, fever(s) or weight change ENT ENT: No difficulty swallowing Gastro GI: No abdominal pain, belching, bloating, change in bowel habits, change in stool character, coffee ground emesis, constipation, cramping, diarrhea, heartburn, difficulty swallowing, feeling full early, excessive flatus, incontinent of stools, Vomiting blood/hematemesis, Blood in stool, loose stools, Black,tarry stools, nausea/dyspepsia, pain with swallowing, vomiting or other Musc Musculoskeletal: No joint pain Skin Skin: No yellowing of the eye or itchy eyes Psych Psychiatric: No anxiety and No depression Endo Endocrine: No fatigue or weight change Aller/Imm Allergy/Immunologic: No itchy eyes Goyo/Lymp Hematologic/Lymphatic: No easy bleeding or easy bruising Exam Const General: cooperative, healthy appearing, comfortable, no acute distress, well developed and not cushingoid Nutritional Appearance: well nourished Orientation: alert, awake and oriented x3 HENMT Head: normal to inspection Ears: hearing grossly normal bilaterally Nose: external nose normal Mouth: oral mucosae normal Eyes General: appearance normal, both eyes and all related structures Alignment and Position: alignment normal Periorbital: periorbital findings normal Eyelids: eyelids normal Conjunctivae: conjunctivae normal Neck Neck: normal visual inspection Neck mass: No Thyroid: thyroid normal Chest Chest palpation & inspection: normal inspection of the chest Resp Effort & Inspection: normal respiratory effort, able to speak in complete sentences, symmetric chest movement, no audible wheezes and no cough Auscultation: Bilateral: Clear to Auscultation Cardio Rate: regular rate Rhythm: regular rhythm GI Inspection: normal to inspection Skin General: no rashes or lesions noted Neuro General: patient alert, patient awake and patient oriented x3 Cranial Nerves: CN's II-XI intact bilaterally Cognition: normal cognition Speech: speech normal Gait: shuffling Motor: muscle tone normal throughout Extrem General: no edema Psych Appearance: grossly normal Mental Status: mental status grossly normal Mood: congruent mood Affect: normal affect Speech and Movement: speech and movement normal Attitude: cooperative Thought Process: normal Thought Content: normal Judgment: judgment good Assessment and Plan Assessment and Plan (1) Diarrhea: Status: Chronic Qualifiers: Diarrhea type: functional diarrhea Qualified Code(s): K59.1 - Functional diarrhea Plan: 77-year-old male with diarrhea. The diarrhea temporarily resolved after his colonoscopy during which time he had multiple colon polyps removed. Biochemical displayed some markers for Crohn's disease. This could explain his nocturnal diarrhea. We will get a capsule endoscopy. He had a good response and regarding his dumping with Botox injection it was acute done to the pyloric sphincter. We will added cholestyramine at 1 g dose only at night. He will call in 2 weeks to make sure he does not develop any signs of constipation. If so we may only give it till Monday and Monday. We went over the natural history of his Parkinson's disease and the autonomic as well as medication induced effects to a neurologic disorder that affects the autonomic nervous system. He is status post cholecystectomy for acute cholecystitis. Actually since he underwent a cholecystectomy he has been having better control and less volume his diarrhea. He denies any incidence of fecal continence. He does get some bloating along with needing to frequently wipe. I told him this is most likely secondary to bile induced diarrhea. We will continue his cholestyramine and add fiber. He is also having some problems with bloating so we will start simethicone 250 mg twice a day. Medications: New simethicone administer after meals 250 mg PO BID 60 caps 3RF Refilled cholestyramine (with sugar) 4 gram administer w/meal; avoid other meds within 1hr before or 4-6hr after dose 1 g PO HS 348.6 grams 0RF I have examined the patient and the H&P has been reviewed. There are no clinical changes since date of exam.
--- NOTE | 2024-04-09 12:26 | PCM.PRE.AN2 ---
ASA Classification* ASA Classification ASA Classification: 2 Assessment & Plan Anesthesia* Anesthesia Assessment Anesthesia Assessment: Discussed sedation and/or anesthesia options, risks, benefits, and alternatives with patient/parents/legal guardian/POA. Questions invited. The patient/parents/legal guardian/POA seems to understand and agrees to proceed with anesthesia plan. Reviewed the physical assessment, medical history, allergy history and patient home medications list prior to surgery/procedure/anesthetic and documented any changes. Performed airway and anesthesia risk assessments. Anesthesia Type Anesthesia Type: MAC History Source History Obtained from:: Patient and Chart Anesthesia Focused Assessment* Temperature: 98.8 F Pulse Rate: 78 Blood Pressure: 147/88 Respiratory Rate: 14 Pulse Ox: 94 Oxygen Delivery Method: Room Air Airway Assessment Mouth opens: >3 cm Mallampati Score: III Teeth Condition: Dentures (Patient has full top and bottom dentures. He will be taking these out.) Neck Range of motion (ROM): Limited ROM (Somewhat decreased extension) Focused Labs Anesthesia Preop lab: CBC WBC 9.1 K/mm3 (4.4-11.0) 08/18/23 02:55 RBC 5.28 M/mm3 (4.6-6.2) 08/18/23 02:55 Hgb 16.0 g/dL (13.0-16.5) 08/18/23 02:55 Hct 48.4 % (40-54) 08/18/23 02:55 Plt Count 150 K/mm3 (150-450) 08/18/23 02:55 CHEMISTRY Potassium 3.9 mmol/L (3.5-5.1) 08/18/23 02:55 Sodium 142 mmol/L (136-145) 08/18/23 02:55 Magnesium 2.0 mg/dL (1.6-2.6) 10/18/21 11:30 Phosphorus 2.6 mg/dL (2.5-4.9) 04/30/22 06:35 BUN 19 mg/dL (7-18) H 08/18/23 02:55 Creatinine 1.54 mg/dL (0.70-1.30) H 08/18/23 02:55 Glucose 111 mg/dL (74-106) H 08/18/23 02:55 POC Glucose 97 mg/dL (74-106) 08/10/22 11:43 TSH 0.84 uIU/mL (0.358-3.74) 09/12/23 13:43 COAG PT 14.5 SECONDS (11.7-14.9) 02/08/22 12:17 Pre-Assessment Diagnosis/Proposed Procedure Planned Operative Procedure(s): CSCOPE Anesthesia History 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 When Was Last Pacemaker Check QUESTION #4 FULL TEXT: You/Your Family Experience fever (hyperthermia) with Anesthesia Last Oral Intake Last Oral intake: Last Oral Intake NPO since 23:00 04/09/24 12:02 Meds taken in AM with sips of Yes 04/09/24 12:02 water? Meds patient instructed to take am of surgery Any additional information?: Yes NPO since: 23:00 (Patient finished his prep last night 11:00.) PONV PONV - window shade installer: PONV - window shade installer Female No 04/03/24 12:20 HX of Motion Sickness No 04/03/24 12:20 HX of N/V After Surgery No 04/03/24 12:20 Non-Smoker Yes 04/03/24 12:20 Duration of Surgery greater No 04/03/24 12:20 than 60 minutes Number of Risk Factors 1 04/03/24 12:20 PONV Score Low Risk 04/03/24 12:20 Height & Weight Height & Weight: Anesthesia: Height & Weight Height 5 ft 10 in 04/09/24 12:02 Weight: 84 kg 04/09/24 12:02 Body Mass Index (BMI) 26.5 04/09/24 12:02 Respiratory Assessment Respiratory Assessment - window shade installer: Respiratory Tract Infection Hx - window shade installer Hx Respiratory Tract Infection No 04/03/24 12:20 STOP Sleep Apnea STOP Sleep Apnea - window shade installer: STOP Sleep Apnea - window shade installer Hx Hypertension Yes: CONTROLLED WITH MED 04/03/24 12:20 Hx Sleep Apnea No 04/03/24 12:20 CPAP No 04/03/24 12:20 BIPAP No 04/03/24 12:20 Do you snore loudly (louder No 04/03/24 12:20 than talking or can be heard Do you often feel tired/ No 04/03/24 12:20 fatigued/ sleepy during daytime? Has anyone observed you stop No 04/03/24 12:20 breathing during sleep? STOP Results Negative 04/03/24 12:20 QUESTION #5 FULL TEXT : Do you snore loudly (louder than talking or can be heard through closed doors)? Tobacco Use History Tobacco Use History - window shade installer: Tobacco Use History - window shade installer Tobacco Use Non-smoker,Cigarettes 11/04/21 10:58 Smoking Status Former smoker 04/03/24 12:20 Hx Tobacco Use No 04/03/24 12:20 Years Smoking Packs Smoked per Day Smoking Cessation Date was No - quit smoking greater 04/03/24 12:20 within the last 15 years than 15 years ago Hx Smoking Cessation Date 07/04/98 04/03/24 12:20 Hx Smoking Cessation No 04/03/24 12:20 Counseling Hematologic Medial History Hematologic Hx - window shade installer: Hematologic Medical Hx - stull hewer Hx of Blood Transfusion No 04/03/24 12:20 Hx of Transfusion in last 3 No 04/03/24 12:20 Months Date of Last Transfusion (if within last 3 months) Ever experience any problems No 04/03/24 12:20 with transfusion(s)? Specify any problems Hx of Preganancy in last 3 N/A 04/03/24 12:20 Months Nurse Filling Out Transfusion NBUCHER 04/03/24 12:20 & Questions: Date: 04/03/24 04/03/24 12:20 Time: 12:22 04/03/24 12:20 Patient unable to answer at this time (ie. confused, unrespo /Reproduction History /Reproductive History - window shade installer: /Reproductive Hx- window shade installer Hx Now Gestational Age (in weeks): EDC: Hx Hx Para Hx Section SAB No 04/03/24 12:20 PFSH Medical History Urinary retention Chronic cough History of Clostridium difficile infection Ambulates with cane Excessive bleeding Parkinsons disease Abnormal weight loss Melanoma in situ of unspecified part of face IBS (irritable bowel syndrome) Chronic diarrhea Thyrotoxicosis Expressive aphasia Hyperthyroidism Hypothyroidism Osteoporosis Wears glasses Wears dentures Cancer Depression Anxiety Prostate disease Pulmonary embolism Back pain Syncope Difficulty swallowing Heartburn Former smoker Shortness of breath on exertion Leg cramps History of pain when walking History of echocardiogram Cardiology follow-up encounter Hypertension Skin cancer Arthritis Change in bowel habit Polycythemia Hyperlipidemia Osteoarthritis Diarrhea Fall Hypercholesterolemia BPH (benign prostatic hyperplasia) Acute respiratory failure with hypoxia Chronic respiratory failure with hypoxia Closed right hip fracture Home Medications ?Medication ?Instructions ?Recorded ?Last Taken ?Type metoprolol tartrate 25 mg tablet 25 mg PO DAILY heart 04/15/21 04/08/24 History potassium chloride 10 mEq 10 meq PO BID supplement 04/15/21 04/08/24 History capsule,extended release carbidopa 25 mg-levodopa 100 mg 1 tab PO TID PARKINSONS 10/18/21 04/09/24 History tablet isosorbide mononitrate 30 mg 30 mg PO DAILY ANGINA 10/18/21 04/08/24 History tablet,extended release 24 hr lorazepam 1 mg tablet (Ativan) 1 mg PO DAILY PRN Anxiety 12/01/21 02/15/22 History paroxetine HCl 20 mg tablet 20 mg PO DAILY DEPRESSION 12/07/21 04/08/24 History atorvastatin 20 mg tablet 20 mg PO QHS CHOLESTEROL 02/08/22 04/07/24 History pantoprazole 40 mg tablet,delayed 40 mg PO DAILY 30 days #30 tabs 06/14/23 04/08/24 Rx release tamsulosin 0.4 mg capsule 0.4 mg PO QHS #14 caps 08/21/23 04/07/24 Rx methimazole 5 mg tablet 5 mg PO DAILY THYROID #30 tabs 09/12/23 04/08/24 Rx cholestyramine (with sugar) 4 gram 1 g PO HS #348.6 grams 12/14/23 04/07/24 Rx oral powder [id number] 100 gram-sod sulf 7.5 240 ml PO PER PKG DIR #1 ea 12/14/23 04/08/24 Rx fwdz-KuFr-ZOi-ascorbate-C oral pwdr pack (MoviPrep) simethicone 250 mg capsule 250 mg PO BID #60 caps 12/14/23 04/07/24 Rx Allergy/AdvReac Type Severity Reaction Status Date / Time No Known Allergies Allergy Verified 04/09/24 11:59 Family History Father Lung cancer Mother Parkinsons Heart failure Surgical History (Updated 04/03/24 @ 12:24 by Judy Carmona) History of cataract extraction with lens replacement History of cholecystectomy S/P laparoscopic cholecystectomy History of esophagogastroduodenoscopy (EGD) Hx of colonoscopy History of nephrectomy, left History of tonsillectomy History of total knee replacement (TKR) History of transurethral resection of prostate History of cardiac catheterization History of rhinoplasty History of 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
--- NOTE | 2024-04-09 12:30 | COLBX_PTH ---
PATHOLOGY RESULTS PATIENT: MARTA OLIVIA LOC: EN U#:[id number] AGE/SX: 78/M ROOM: RE04/09/[address]: Dr. James Obrien DO : 1945 BED: DIS: 04/09/2024 SPEC #: [id number] RECD: 04/09/24 16:36 STATUS: RAY REPeg #: [id number] BRITTNEY: 04/09/24 12:[address]: James Obrien DEPT: SURGICAL PATHOLOGY RECD BY: Serenity Black ENTERED: 04/10/24 09:58 SP TYPE: COLON BX ESTELA DR: Dr. Brandon Cantor MD Tissues: SPLENIC FLEXURE Ascending colon Ileum, NOS COLON BIOPSY Procedures: Surgery Specimen Level IV HEADER OPERATION: Colonscopy with biopsies PRE-OP DIAGNOSIS: Diarrhea TISSUE SUBMITTED: A- Splenic flexure polyp biopsy, B- Ascending colon polyp biopsy, C- Terminal ileum biopsy, D- Random colon biopsy MICROSCOPIC DIAGNOSIS A. Splenic flexure polyp, biopsy: Tubular adenoma. B. Ascending colon polyp, biopsy: Fragments of tubular adenoma. C. Terminal ileum, biopsy: Fragments of small intestinal mucosa, no pathologic diagnosis. D. Colon, random biopsy: Fragments of colonic mucosa, no pathologic diagnosis. 04/11/2024 MICROSCOPIC DESCRIPTION Slides are reviewed. GROSS DESCRIPTION A. Received in fixative is one container labeled with the patient's name and designated Splenic flexure polyp biopsy. The specimen consists of multiple irregular fragments of light brandt soft tissue that in aggregate measure 1.0 x 0.3 x 0.1 cm. The specimen is totally submitted in one cassette. B. Received in fixative is one container labeled with the patient's name and designated Ascending colon polyp biopsy. The specimen consists of multiple irregular fragments of light brandt soft tissue that in aggregate measure 0.8 x 0.4 x 0.1 cm. The specimen is totally submitted in one cassette. C. Received in fixative is one container labeled with the patient's name and designated Terminal ileum biopsy. The specimen consists of multiple irregular fragments of light brandt soft tissue that in aggregate measure 0.4 x 0.2 x 0.1 cm. The specimen is totally submitted in one cassette. D. Received in fixative is one container labeled with the patient's name and designated Random colon biopsy. The specimen consists of multiple irregular fragments of light brandt soft tissue that in aggregate measure 0.6 x 0.4 x 0.1 cm. The specimen is totally submitted in one cassette. SJJosémr 04/10/2024 TC:1 CPT:14687c7
--- NOTE | 2024-04-09 13:33 | PCM.POST.ANE ---
Anesthesia: Postop Eval I Current Vital Signs Temperature: 97.8 F Pulse Rate: 66 Blood Pressure: 104/68 Respiratory Rate: 14 Pulse Ox: 94 Oxygen Delivery Method: Nasal Cannula Oxygen Flow Rate (L/min): 4 Assessment Airway patent: Yes Spontaneous unlabored respirations: Yes Mental status: Awake nausea: No Vomiting: No Anesthesia Complication: No Fluid Hydration Crystalloid volume administer (ml): 20 Total IV fluid infused: 20 Progress Note Anesthesia document: Postop Eval 1 completed: Yes
--- NOTE | 2024-04-09 13:34 | OP.COLON_ITS ---
Patient Name: Rohan Hernandes Procedure Date: 04/09/2024 12:44 PM Date of : 1945 Age: 78 Procedure: Colonoscopy Indications: Chronic diarrhea Providers: James Obrien DO Referring MD: James Obrien DO Medicines: Monitored Anesthesia Care Patient Profile: This is a 78 year old male. Refer to note in patient chart for documentation of history and physical. Last Colonoscopy: date unknown. Unable to locate last colonoscopy report. Complications: No immediate complications. Procedure: Pre-Anesthesia Assessment: - Prior to the procedure, a History and Physical was performed, and patient medications and allergies were reviewed. The patient is competent. The risks and benefits of the procedure and the sedation options and risks were discussed with the patient. All questions were answered and informed consent was obtained. Patient identification and proposed procedure were verified by the physician in the pre-procedure area. Mental Status Examination: alert and oriented. Airway Examination: normal oropharyngeal airway and neck mobility. Respiratory Examination: clear to auscultation. CV Examination: normal. Prophylactic Antibiotics: The patient does not require prophylactic antibiotics. Prior Anticoagulants: The patient has taken no anticoagulant or antiplatelet agents. ASA Grade Assessment: III - A patient with severe systemic disease. After reviewing the risks and benefits, the patient was deemed in satisfactory condition to undergo the procedure. The anesthesia plan was to use monitored anesthesia care (MAC). Immediately prior to administration of medications, the patient was re-assessed for adequacy to receive sedatives. The heart rate, respiratory rate, oxygen saturations, blood pressure, adequacy of pulmonary ventilation, and response to care were monitored throughout the procedure. The physical status of the patient was re-assessed after the procedure. After I obtained informed consent, the scope was passed under direct vision. Throughout the procedure, the patient's blood pressure, pulse, and oxygen saturations were monitored continuously. The colonoscope was introduced through the anus and advanced to the terminal ileum. The colonoscopy was performed without difficulty. The patient tolerated the procedure well. The quality of the bowel preparation was fair. The terminal ileum, ileocecal valve, appendiceal orifice, and rectum were photographed. Scope In: 1:16:30 PM Scope Withdrawal Time 0 hours 5 minutes 31 seconds Scope Out: 1:26:21 PM Total Procedure Duration Time 0 hours 9 minutes 51 seconds Findings: The digital rectal exam findings include decreased sphincter tone. Two sessile polyps were found in the splenic flexure and ascending colon. The polyps were 5 mm in size. These polyps were removed with a jumbo cold forceps. Resection and retrieval were complete. Verification of patient identification for the specimen was done. Estimated blood loss was minimal. An area of mildly congested mucosa was found in the recto-sigmoid colon, in the sigmoid colon and at the splenic flexure. Biopsies were taken with a cold forceps for histology. Verification of patient identification for the specimen was done. Estimated blood loss was minimal. Stool was found in the rectum, in the recto-sigmoid colon, in the sigmoid colon, in the descending colon, in the ascending colon and in the cecum. Patchy mild inflammation was found in the terminal ileum. Biopsies were taken with a cold forceps for histology. Verification of patient identification for the specimen was done. Estimated blood loss was minimal. Impression: - Preparation of the colon was fair. - Decreased sphincter tone found on digital rectal exam. - Two 5 mm polyps at the splenic flexure and in the ascending colon, removed with a jumbo cold forceps. Resected and retrieved. - Congested mucosa in the recto-sigmoid colon, in the sigmoid colon and at the splenic flexure. Biopsied. - Stool in the rectum, in the recto-sigmoid colon, in the sigmoid colon, in the descending colon, in the ascending colon and in the cecum. - Mild inflammation was found in the ileum secondary to ileitis. Biopsied. Recommendation: - Discharge patient to home. - Resume previous diet. - Continue present medications. - Await pathology results. - Repeat colonoscopy in 1 year for surveillance. Procedure Code(s): --- Professional --- 51338, Colonoscopy, flexible; with biopsy, single or multiple CPT copyright 2021 [employer]. All rights reserved. The codes documented in this report are preliminary and upon accounting director review may be revised to meet current compliance requirements. James Obrien DO 04/09/2024 1:34:35 PM This report has been signed electronically. Number of Addenda: 0 Note Initiated On: 04/09/2024 12:44 PM
--- NOTE | 2024-04-09 13:35 | OP.CCLET_ITS ---
04/09/2024 Brandon Cantor [address] [place] [address] Re : Colonoscopy procedure for Rohan Hernandes Dear Dr. Cantor This procedure was performed on Tuesday, April 09, 2024. My impressions and recommendations are as follows: Impressions : - Preparation of the colon was fair. - Decreased sphincter tone found on digital rectal exam. - Two 5 mm polyps at the splenic flexure and in the ascending colon, removed with a jumbo cold forceps. Resected and retrieved. - Congested mucosa in the recto-sigmoid colon, in the sigmoid colon and at the splenic flexure. Biopsied. - Stool in the rectum, in the recto-sigmoid colon, in the sigmoid colon, in the descending colon, in the ascending colon and in the cecum. - Mild inflammation was found in the ileum secondary to ileitis. Biopsied. Recommendations : - Discharge patient to home. - Resume previous diet. - Continue present medications. - Await pathology results. - Repeat colonoscopy in 1 year for surveillance. My findings are described in the full procedure note, which is enclosed. If I can be of further assistance, please feel free to contact me at . Sincerely, James Obrien, 04/09/2024 1:34:35 PM This report has been signed electronically.
--- NOTE | 2024-04-09 16:30 | POSTOPAN2_ITS ---
Anesthesia Postop Eval I Sum Postop Eval Completion status Anesthesia document: Postop Eval 1 completed: Yes Anesthesia Postop Eval I Summary Anesthesia Postop Eval I Summary: Anesthesia Postop Eval I: Assessment Summary Airway patent Yes 04/09/24 13:34 MOTOR [email or web address] Spontaneous unlabored Yes 04/09/24 13:34 MOTOR [email or web address] respirations Mental status Awake 04/09/24 13:34 MOTOR [email or web address].HBARR nausea No 04/09/24 13:34 MOTOR [email or web address].HBARR Vomiting No 04/09/24 13:34 MOTOR [email or web address].HBARR Anesthesia Postop Eval I: Fluid Summary Crystalloid volume administer 20 04/09/24 13:34 MOTOR [email or web address].HBARR (ml) Colloids volume administered ( ml) Blood Product volume administered (ml) Total IV fluid infused 20 04/09/24 13:34 MOTOR [email or web address].HBARR Anesthesia Postop Eval I: Summary Notes Anesthesia Complication No 04/09/24 13:34 MOTOR [email or web address].HBARR Anesthesia Complication Comment: Post-operative progress note Anesthesia: Postop Eval II Evaluation Mental status: Awake Pain Level: 0 nausea: No Vomiting: No
--- NOTE | 2024-04-09 16:30 | PCM.POSTANE2 ---
Anesthesia Postop Eval I Sum Postop Eval Completion status Anesthesia document: Postop Eval 1 completed: Yes Anesthesia Postop Eval I Summary Anesthesia Postop Eval I Summary: Anesthesia Postop Eval I: Assessment Summary Airway patent Yes 04/09/24 13:34 NURSING SERVICE DIRECTOR.[email or web address] Spontaneous unlabored Yes 04/09/24 13:34 NURSING SERVICE DIRECTOR.HBARR respirations Mental status Awake 04/09/24 13:34 NURSING SERVICE DIRECTOR.HBARR nausea No 04/09/24 13:34 NURSING SERVICE DIRECTOR.HBARR Vomiting No 04/09/24 13:34 NURSING SERVICE DIRECTOR.HBARR Anesthesia Postop Eval I: Fluid Summary Crystalloid volume administer 20 04/09/24 13:34 NURSING SERVICE DIRECTOR.HBARR (ml) Colloids volume administered ( ml) Blood Product volume administered (ml) Total IV fluid infused 20 04/09/24 13:34 NURSING SERVICE DIRECTOR.HBARR Anesthesia Postop Eval I: Summary Notes Anesthesia Complication No 04/09/24 13:34 NURSING SERVICE DIRECTOR.HBARR Anesthesia Complication Comment: Post-operative progress note Anesthesia: Postop Eval II Evaluation Mental status: Awake Pain Level: 0 nausea: No Vomiting: No
== END 2024-04-09 14:33 | disposition home or self-care (01) ==
LOC: EN 11:38 → AC 11:39
PROVIDERS: PCP Internal Medicine; Referring Provider Internal Medicine; Visit Provider Internal Medicine Gastroenterology
PROC: 0DJD8ZZ Inspection of Lower Intestinal Tract, Via Natural or Artificial Opening Endoscopic (ICD-10-PCS; CPT 45378; principal; 2024-04-09 12:25)
DX: D12.3 Benign neoplasm of transverse colon (principal); G20.A1 Parkinson's disease without dyskinesia, without mention of fluctuations; D12.2 Benign neoplasm of ascending colon; K59.1 Functional diarrhea; I10 Essential (primary) hypertension; E03.9 Hypothyroidism, unspecified; E78.00 Pure hypercholesterolemia, unspecified; F32.A Depression, unspecified; F41.9 Anxiety disorder, unspecified; N40.0 Benign prostatic hyperplasia without lower urinary tract symptoms; M81.0 Age-related osteoporosis without current pathological fracture; M19.90 Unspecified osteoarthritis, unspecified site; Z90.5 Acquired absence of kidney; Z87.19 Personal history of other diseases of the digestive system; Z90.49 Acquired absence of other specified parts of digestive tract; Z86.19 Personal history of other infectious and parasitic diseases; Z86.711 Personal history of pulmonary embolism; Z85.828 Personal history of other malignant neoplasm of skin; Z79.899 Other long term (current) drug therapy; Z96.659 Presence of unspecified artificial knee joint; Z96.641 Presence of right artificial hip joint; Z87.891 Personal history of nicotine dependence
CPT/HCPCS: 45380; 88305; A4216

== ENCOUNTER 2024-08-05 13:00 | Outpatient (RCR) | payer MEDICARE, SELFPAY ==
--- NOTE | 2024-06-19 15:03 | HP.PTEVAL_ITS ---
Patient's Visit Information Visit Information Visit Information: MARTA OLIVIA is a 79 year old M referred to Physical Therapy by Dr. Chris Pearson MD with a diagnosis of PD, abnormality of gait. Date of Evaluation: 06/19/24 Physical Therapist: LENA Pierce Visit Plan Frequency: 2x /Week Duration: 2 Months Plan: Instructed pt to come in with a rollator due to his balance score being so low and he is a fall risk. 2X/ week for 8 weeks for gait endurance, LE strength, functional transfers, posture, dual tasking, with HEP Subjective Subjective: Pt has Arthritis L knee and L hip and artificial knee and hip on the R, spinal stenosis in the back and PD. He was dx with PD 3-4 years ago and is on meds. He feels that the meds really work and other times not so much. He feels that the meds help him not shake as much. Dr Pearson sent him here because PT would help him with his PD. He can only walk so far and then his hip hurts and it is too cold outside right now. He has had a couple falls (2 have been bad enough that the squad had to get him). He has caught himself several other times. He feels that he trips over things, at times he has a sense of losing balance if he gets up to quick, or walk BW very far. He can get up from the floor if he pushes up from a chair etc. He has stairs at home but his master is on first floor. He uses a railing and he goes 2 feet to a step. Pt struggles with rolling to his R side due to the pain. It takes him a lot longer to get in and out of the car. Sit to stand: uses arms and prefers taller chairs. He has a rollator that he uses in the house and uses the cane when he leaves the house. Pain L hip and knee: Pain Intensity (Out of 10): 0 Objective Objective: Gait: walks with flexed trunk and shuffled gait, decrease stride length, walks with a Quad cane but really does not put it on the ground much and very unsteady. Pt walked around entire dept with rollator with CGA and caught toe once which needed min A by therapist and did it in 2 min and 48 seconds LE MMT: R hip flex 5.4 and L 10.3 R knee ext 20.8 and L 21.9 R knee flex 11.8 and L 11.2 Sit to stand: uses arms to push self out of the chair but able to stand up on first attempt. Heel and toe raises: pt struggles and can not get toes off the ground but able to get heels up. Seated opp hip flex and opp arm alternating: X 20 times in a row without messing up FGA: 7 (told pt that he was a fall risk and needed to use his rollator as opposed to his cane). Posture: rounded shoulders, flexed trunk Balance/Special Test Scores Functional Gait Assessment Score: 7 % Disability: 76.6700 Lower Extremity Functional Score: 27 Goals Goal 1:: I HEP Goal Time Frame: 6-8 Weeks Goal 2:: Increase balance (FGA was 7 at eval) Goal Time Frame: 6-8 Weeks Goal 3:: Be able to complete 2 laps around dept with rollator without catching his feet with gait (was able to do 1 lap in 2:48 on eval with catching toe once whilch needed min A by therapist to help correct with rollator). Goal Time Frame: 6-8 Weeks Goal 4:: Sit to stand out of a chair 5/5 with 1 UE support to improve leg strength Goal Time Frame: 6-8 Weeks Rehabilitation Potential Rehabilitation Potential: Good Anticipated Interventions Patient/Client Instruction: Educate patient on: Condition and Plan of Care For the Purpose of:: To improve nutrient delivery to tissue, To improve muscle performance and motor function, To improve ability to perform ADL's, To increase tolerance to activity/condition/position, To improve performance and independence with ADL's, To decrease level of supervision to perform tasks, To improve ability of physical actions for home/community/work/leisure, To improve gait and locomotor functions, To improve health of tissue, To decrease soft tissue restriction, To improve endurance, To improve balance and To improve safety with gait Therapeutic Exercise to Include: Strength training, Endurance training, Balance training, Coordination, Body mechanics, Postural training, Flexibilty training, Gait and locomotor training, Neuromotor development, Active ROM and Dynamic Lumbar Stabilization For the Purpose of:: To decrease pain, To increase ROM, To improve muscle performance and motor function, To improve ability to perform ADL's, To increase tolerance to activity/condition/position, To improve performance and independence with ADL's, To decrease level of supervision to perform tasks, To improve ability of physical actions for home/community/work/leisure, To improve gait and locomotor functions, To improve health of tissue, To decrease soft tissue restriction, To increase flexibility/ROM, To improve endurance, To improve balance and To improve safety with gait Functional Training to Include: Gait training For the Purpose of:: To improve gait and locomotor functions and To improve safety with gait Text: Thank you for the opportunity to evaluate your patient. For Medicare and Medicare HMO plans, please review the plan of care and approve it. It will need to be FAXED BACK to us at [phone] for Medicare purposes. For Medicare only, by signing this I certify the plan of care. Please let me know if there are questions or concerns regarding this plan of care. Physician Signatu re: Date:
--- NOTE | 2024-08-05 13:51 | HP.PTDCSUM_ITS ---
Discharge Summary D/C summary: It has been my pleasure to treat MARTA OLIVIA referred by Dr. Chris Pearson MD, with the diagnosis of PD, abnormality of gait for a total of 8 visit(s). Discharge Date: 08/05/24 Please see the following information for a summary of their discharge status. Subjective Subjective: Pt feels that PT has helped a little bit getting him off his butt and doing some exercises. He is in the PD class and likes it. Pain L hip and knee: Pain Intensity (Out of 10): 2 R knee pain: Pain Intensity (Out of 10): 0 Overall Improvement % Improvement: 50 Objective Objective/Function: Gait with a rollator 1 lap around dept tool 2:18 and only ca ught toe once but pt was able to slow himself down to not catch his foot again. FGA 11 sit to stand 5/5 times on first attmept Goals Goal 1:: I HEP Goal Progress: Goal Met Goal 2:: Increase balance (FGA was 7 at eval) Goal 3:: Be able to complete 2 laps around dept with rollator without catching his feet with gait (was able to do 1 lap in 2:48 on eval with catching toe once whilch needed min A by therapist to help correct with rollator). Goal Progress: Progressing Goal 4:: Sit to stand out of a chair 5/5 with 1 UE support to improve leg strength Goal Progress: Goal Met Plan Plan: DC PT to PD class D/C Information Discharge Comments: DC PT to PD class and HEP d/c sentence: If there are questions or concerns regarding this patient's physical therapy, please feel free to call me at [phone]. Thank you for the referral of this patient. Sincerely, Jo Ann Aranda, MPT Balance/Gait/Functional tests Balance/Special Test Scores Functional Gait Assessment Score: 11 % Disability: 63.3400 Lower Extremity Functional Score: 35 Improvement % Improvement: 50
== END 2024-08-05 19:00 | disposition home or self-care (01) ==
LOC: PT 13:00
PROVIDERS: PCP Internal Medicine; Visit Provider Psychiatry & Neurology Sleep Medicine
DX: G20.A1 Parkinson's disease without dyskinesia, without mention of fluctuations (principal); R26.9 Unspecified abnormalities of gait and mobility
CPT/HCPCS: 97110; 97162; 97530

== ENCOUNTER → 2024-09-02 | Outpatient (CLI) | payer MEDICARE, SELFPAY ==
[2024-09-02 15:10] LABS: PSA,Total - Annual Screen 2.75 ng/mL (0.02-4.00)
== END | disposition home or self-care (01) ==
LOC: LAB 13:29
PROVIDERS: PCP Internal Medicine; Referring Provider Nurse Practitioner; Visit Provider Nurse Practitioner
DX: Z12.5 Encounter for screening for malignant neoplasm of prostate (principal)
CPT/HCPCS: 36415; 84153; G0103

== ENCOUNTER 2024-09-10 14:23 | Emergency (ER) | payer MEDICARE, SELFPAY ==
[2024-09-10 14:26] VITALS: BP 111/52; PULSE 52; RESP 14; TEMP 36.4; O2SAT 94; BMI 27.4
[2024-09-10 15:11] VITALS: BP 122/54; BP 138/66; BP 84/52; PULSE 56; PULSE 57
--- NOTE | 2024-09-10 15:11 | EKG12_ITS ---
Test Reason : DIZZY Blood Pressure : */* mmHG Vent. Rate : 50 BPM Atrial Rate : 50 BPM P-R Int : 194 ms QRS Dur : 100 ms QT Int : 464 ms P-R-T Axes : 21 -22 15 degrees QTcB Int : 423 ms Sinus bradycardia Otherwise normal ECG Confirmed by NEERAJ DIMAS, DEAN ([id number]), society editor JESE MENDOZA ([id number]) on 09/12/2024 8:30:01 AM Referred By: Confirmed By: DEAN PICKARD MD
--- NOTE | 2024-09-10 15:12 | EX.ED.DYSGE1 ---
HPI History of Present Illness Chief Complaint: Dizziness Informant: patient and spouse/S.O. Narrative Narrative: 79-year-old male presenting to the emergency room with a chief complaint of dizziness. Patient states that for years he has had an episode or 2/year where he suddenly feels dizzy. He states it is very short-lived and then goes away. He states that over the past several weeks it has been coming daily to every other day sometimes a couple times per day. He states that dizziness to him being more of almost passing out/lightheadedness. He states that today he was making something to eat when he started to feel like his body was moving and his head became hot. He states he went to sat down and he got better but then it happened again when he started to get dressed. He states that currently he feels fine. He denies a sensation that the room is spinning. He cannot identify anything that makes it come on. States he gets a similar feeling he stands up too quickly. He notes he has had a heart cath 2 years ago that did not require any intervention. He sees cardiology [facility]. He denies any new medication. He does not associate the pain with his symptoms. He denies nausea or sweating recently but does note that he has occasionally been sweating during the events, past. He denies any palpitations. [facility] Medical History Urinary retention Chronic cough History of Clostridium difficile infection Ambulates with cane Excessive bleeding Parkinsons disease Abnormal weight loss Melanoma in situ of unspecified part of face IBS (irritable bowel syndrome) Chronic diarrhea Thyrotoxicosis Expressive aphasia Hyperthyroidism Hypothyroidism Osteoporosis Wears glasses Wears dentures Cancer Depression Anxiety Prostate disease Pulmonary embolism Back pain Syncope Difficulty swallowing Heartburn Former smoker Shortness of breath on exertion Leg cramps History of pain when walking History of echocardiogram Cardiology follow-up encounter Hypertension Skin cancer Arthritis Change in bowel habit Polycythemia Hyperlipidemia Osteoarthritis Diarrhea Fall Hypercholesterolemia BPH (benign prostatic hyperplasia) Acute respiratory failure with hypoxia Chronic respiratory failure with hypoxia Closed right hip fracture Home Medications ?Medication ?Instructions ?Recorded ?Last Taken ?Type metoprolol tartrate 25 mg tablet 25 mg PO DAILY heart 04/15/21 04/08/24 History potassium chloride 10 mEq 10 meq PO BID supplement 04/15/21 04/08/24 History capsule,extended release carbidopa 25 mg-levodopa 100 mg 1 tab PO TID PARKINSONS 10/18/21 04/09/24 History tablet isosorbide mononitrate 30 mg 30 mg PO DAILY ANGINA 10/18/21 04/08/24 History tablet,extended release 24 hr lorazepam 1 mg tablet (Ativan) 1 mg PO DAILY PRN Anxiety 12/01/21 02/15/22 History paroxetine HCl 20 mg tablet 20 mg PO DAILY DEPRESSION 12/07/21 04/08/24 History atorvastatin 20 mg tablet 20 mg PO QHS CHOLESTEROL 02/08/22 04/07/24 History tamsulosin 0.4 mg capsule 0.4 mg PO QHS #14 caps 08/21/23 04/07/24 Rx methimazole 5 mg tablet 5 mg PO DAILY THYROID #30 tabs 09/12/23 04/08/24 Rx [id number] 100 gram-sod sulf 7.5 240 ml PO PER PKG DIR #1 ea 12/14/23 04/08/24 Rx [id number] oral pwdr pack (MoviPrep) aspirin 81 mg tablet,delayed 81 mg PO QDAY 05/06/24 Unknown History release (Adult Low Dose Aspirin) cholestyramine (with sugar) 4 gram 4 g PO QDAY #348.6 grams 08/01/24 Unknown Rx oral powder pantoprazole 40 mg tablet,delayed 40 mg PO DAILY #30 TABLETS 08/28/24 Unknown Rx release Allergy/AdvReac Type Severity Reaction Status Date / Time No Known Allergies Allergy Verified 09/10/24 14:28 Family History Father Lung cancer Mother Parkinsons Heart failure Surgical History History of cataract extraction with lens replacement History of cholecystectomy S/P laparoscopic cholecystectomy History of esophagogastroduodenoscopy (EGD) Hx of colonoscopy History of nephrectomy, left History of tonsillectomy History of total knee replacement (TKR) History of transurethral resection of prostate History of cardiac catheterization History of rhinoplasty History of total right hip replacement reattachment of severed finger H/O colonoscopy stoma reversal History of colon surgery Social History household members: spouse housing: house 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al status: employed 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: [employer] pets and animals: Yes pets and animals: cat(s) and dog(s) Smoking Status: Former smoker quit date: 06/05/98 pack-years: 72 second hand exposure: No alcohol intake: never substance use type: does not use seatbelt use: always ROS ROS ED Constitutional Constitutional ED: Denies chills, fever(s) or weight loss Eyes Eyes: Denies blurry vision, change in vision or diplopia ENT ENT ED: Denies ear pain, rhinorrhea or sore throat Cardiovascular Cardiovascular: Reports other Details: See history of present ; Denies chest pain, orthopnea, palpitations or racing heartbeat Respiratory/Chest Respiratory/Chest: Denies cough, dyspnea or orthopnea Gastrointestinal Gastrointestinal: Denies abdominal pain, diarrhea, nausea or vomiting Genitourinary Genitourinary ED: Denies dysuria, hematuria or urinary frequency Musculoskeletal Musculoskeletal: Denies arthralgias or myalgias Integumentary Denies abscess or rash Neurologic Neurologic: Denies headache(s) or weakness Psychiatric Psychiatric: Denies anxiety, depression, suicidal ideation or suicidal thoughts Endocrine Endocrinology: Denies polydipsia, polyphagia or polyuria Allergic/Immunologic Allergic/Immunologic ED: Denies mouth swelling, tongue swelling or urticaria EXAM Physical Exam Const Vital Signs: 09/10/24 14:26 09/10/24 15:11 09/10/24 16:22 Temperature 97.5 F L Temperature Source Oral Pulse Rate 52 L Pulse Rate [Lying] 56 L Pulse Rate [Sitting (for 1 minute prior to obtaining)] 56 L Pulse Rate [Standing (for 1 minute prior to obtaining)] 57 L Respiratory Rate 14 Blood Pressure 111/52 L 124/55 H Blood Pressure [Lying] 138/66 H Blood Pressure [Sitting (for 1 minute prior to obtaining)] 122/54 H Blood Pressure [Standing (for 1 minute prior to obtaining)] 84/52 L Blood Pressure Mean 71 78 Blood Pressure Mean [Lying] 90 Blood Pressure Mean [Sitting (for 1 minute prior to obtaining)] 76 Blood Pressure Mean [Standing (for 1 minute prior to obtaining)] 62 Pulse Ox 94 Oxygen Delivery Method Room Air 09/10/24 17:56 09/10/24 18:30 09/10/24 18:47 Temperature 97.5 F L Temperature Source Pulse Rate 55 L 72 Pulse Rate [Lying] 65 Pulse Rate [Sitting (for 1 minute prior to obtaining)] 64 Pulse Rate [Standing (for 1 minute prior to obtaining)] 69 Respiratory Rate 16 Blood Pressure 159/68 H 118/105 H Blood Pressure [Lying] 119/55 L Blood Pressure [Sitting (for 1 minute prior to obtaining)] 139/68 H Blood Pressure [Standing (for 1 minute prior to obtaining)] 154/79 H Blood Pressure Mean 98 109 Blood Pressure Mean [Lying] 76 Blood Pressure Mean [Sitting (for 1 minute prior to obtaining)] 91 Blood Pressure Mean [Standing (for 1 minute prior to obtaining)] 104 Pulse Ox 98 Oxygen Delivery Method Positive well nourished and well developed General Appearance ED: well developed HEENT Reports normocephalic, head/scalp atraumatic and moist mucous membranes Eyes PERRL and EOMs intact bilaterally Neck no lymphadenopathy, supple and no JVD Resp normal respiratory effort and clear to auscultation bilaterally Cardio regular rate, regular rhythm and no murmurs GI normal to inspection, nondistended, normoactive bowel sounds and non-tender Palpation: soft Back/Spine no CVA tenderness and normal ROM Extremity normal to inspection General Extremety ED: Negative for edema General Extremity: Negative for edema Neuro oriented x3 and CN's II-XII intact bilaterally Sensorium / Orientation: alert Motor Exam: strength 5/5 throughout Psych mental status grossly normal Mood & Affect: Negative for depressed or tearful Skin no rashes or lesions noted and no wounds MDM MDM MDM Narrative Medical decision making narrative: Differential diagnosis includes but not limited to syncope near syncope cardiac dysrhythmia electrolyte abnormality anemia orthostatic hypotension medication reaction vertigo vasovagal reaction The initial orthostatics showed hypotension with standing but these were repeated without treatment and are not present. He states that he did not have any symptomatology with either examination. White count 5.3 hemoglobin 15.92 sets of cardiac enzymes rule out for ACS glucose 105 creatinine 1.56 with a BUN of 22. My independent interpretation the chest x-ray is No acute process from prior. Please see radiologist read. Patient EKG shows sinus bradycardia. On the monitor the patient has consistently been sinus bradycardic in the 50s. I do wonder about bradycardia in this patient. However not seen any events. He is on metoprolol 25 mg twice a day. I think is reasonable to cut this back to 12.5 mg twice a day have him follow-up with either primary care or cardiology. He may benefit from Holter monitor. I do not feel strongly that the patient requires admission at this time. He and his understand return instructions are comfortable with the plan History & Record Review Discussion w/independent historian: Patient and Significant other Lab Data Attestation: I reviewed the patient's lab results. Labs: Laboratory Results - last 24 hr 09/10/24 09/10/24 15:30 17:35 WBC 5.3 RBC 5.04 Hgb 15.9 Hct 46.7 MCV 92.7 MCH 31.5 MCHC 34.0 RDW Std Deviation 48.7 H RDW Coeff of Daisy 14.2 Plt Count 126 L MPV 11.3 Immature Gran % (Auto) 0.400 Neut % (Auto) 75.7 H Lymph % (Auto) 11.0 L Franklin % (Auto) 9.8 Eos % (Auto) 2.3 Baso % (Auto) 0.8 Absolute Neuts (auto) 4.0 Absolute Lymphs (auto) 0.58 L Nucleated RBC % 0 Differential Comment SCANNED Platelet Estimate SLT DEC Sodium 140 Potassium 4.6 Chloride 105 Carbon Dioxide 25.6 Anion Gap 9 BUN 22 H Creatinine 1.56 H Estim Creat Clear Calc 39.65 L Est GFR (MDRD) Non-Af 45 L BUN/Creatinine Ratio 13.8 Glucose 105 H Calcium 9.4 Magnesium 2.0 Troponin T High Sens 23 H Troponin T Hi Sens 2 Hr 17 Radiography Diagnostic Testing: Clinical Impression(s) from Imaging Studies Chest X-Ray 09/10/24 15:42 IMPRESSION: Patchy opacities project over the mid to lower lungs bilaterally, which could be due to areas of pneumonia or pulmonary edema. No sizable pleural effusion. Recommend continued radiologic follow-up to document resolution. Reading Location: [facility] EKG Initial EKG: Attestation: I personally reviewed and interpreted this EKG as follows: Comments: Sinus bradycardia ventricular rate of 50 bpm Discharge Plan Triage Chief Complaint: Dizziness ED Provider: Jose Armando Fierro Dx/Rx/DC Orders Clinical Impression: Near syncope, Bradycardia, sinus Instructions: Causes of Syncope Prescriptions: No Action carbidopa-levodopa 25-100 mg tablet 1 tab PO TID lorazepam [Ativan] 1 mg tablet 1 mg PO DAILY PRN (Reason: Anxiety) [id number] [MoviPrep] 100-7.5-2.691 gram powder in packet 240 ml PO PER PKG DIR Qty: 1 0RF aspirin [Adult Low Dose Aspirin] 81 mg tablet,delayed release (DR/EC) 81 mg PO QDAY potassium chloride 10 mEq capsule, extended release 10 meq PO BID metoprolol tartrate 25 mg tablet 25 mg PO DAILY paroxetine HCl 20 mg tablet 20 mg PO DAILY MDD T isosorbide mononitrate 30 mg tablet extended release 24 hr 30 mg PO DAILY atorvastatin 20 mg tablet 20 mg PO QHS tamsulosin 0.4 mg Capsule 0.4 mg PO QHS Qty: 14 0RF methimazole 5 mg tablet 5 mg PO DAILY Qty: 30 6RF cholestyramine (with sugar) 4 gram powder 4 g PO QDAY Qty: 348.6 0RF Rx Instructions: administer w/meal; avoid other meds within 1hr before or 4-6hr after dose pantoprazole 40 mg tablet,delayed release (DR/EC) 40 mg PO DAILY Qty: 30 0RF Primary Care Provider: Brandon Cantor Referrals: Brandon Cantor MD [Primary Care Provider] - As soon as possible Activity Restrictions/Additional Instructions: As we discussed it was noted that your resting heart rate is around 50-60. I would recommend that we decrease your metoprolol to 12.5 mg (a half a tablet) twice a day. 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 This may be faster to see your primary care doctor. Print Language: Argentine Disposition Disposition: Home, Self Care Discharge Date/Time: 09/10/24 18:51
[2024-09-10 15:40] LABS: Absolute Lymphocyte Count 0.58 X10^3/uL (0.83-4.51); Basophil# 0.04 X10^3/uL; Basophil% 0.8 % (0-1); Eosinophil# 0.12 X10^3/uL; Eosinophils% 2.3 % (0-5); Hematocrit 46.7 % (40-54); Hemoglobin 15.9 g/dL (13.0-16.5); Lymphocyte # 0.58 X10^3/ul (0.83-4.51); Mean Corpuscular Hgb 31.5 pg (27.0-32.0); Mean Corpuscular Volume 92.7 fL (80-94); Mean Platelet Vol. 11.3 fl (6.2-12.0); Monocyte# 0.52 X10^3/uL; Monocyte% 9.8 % (0-10); NRBC Flagged by Analyzer 0 % (0-5); Neutrophil % 75.7 % (47-70); POSITIVE COUNT YES; POSITIVE DIFFERENTIAL YES; Platelet Count 126 K/mm3 (150-450); RBC Distribution Width CV 14.2 % (11.6-14.6); RBC Distribution Width SD 48.7 fl (35.1-43.9); Red Blood Count 5.04 M/mm3 (4.6-6.2); White Blood Count 5.3 K/mm3 (4.4-11.0)
--- NOTE | 2024-09-10 15:42 | RAD_ITS ---
PROCEDURE: Portable upright chest radiograph, two views 09/10/2024 REASON FOR EXAM: NEAR SYNCOPE TECHNIQUE: Portable upright chest radiograph, two views COMPARISON: None available FINDINGS: The bones are osteopenic, grossly intact. Monitoring leads overlie the chest. No pneumothorax or pulmonary vascular congestion. 5 mm calcified granuloma projects over the medial left upper lobe. There are some abnormal patchy opacities projecting over the mid to lower lungs bilaterally, greatest on the left. No sizable pleural effusion. RAD/Chest 1 View (Portable) IMPRESSION: Patchy opacities project over the mid to lower lungs bilaterally, which could b e due to areas of pneumonia or pulmonary edema. No sizable pleural effusion. Recommend continued radiologic follow-up to docum ent resolution. Reading Location: [facility]
[2024-09-10 15:56] LABS: Differential Indicated SCAN CRITERIA MET
[2024-09-10 15:57] LABS: Differential Comment SCANNED; Platelet Estimate SLT DEC (ADEQ)
[2024-09-10 16:12] LABS: Anion Gap 9 (5-15); BUN 22 mg/dL (4-19); BUN/Creat Ratio 13.8 RATIO (10-20); Calcium,Total 9.4 mg/dL (7.6-11.0); Carbon Dioxide 25.6 mmol/L (21.0-32.0); Chloride 105 mmol/L (98-108); Creatinine, Serum 1.56 mg/dL (0.70-1.20); EST Glomerular Filtration Rate 45 (>60); Estimated Creatinine Clearance 39.65 ml/min (50-250); Glucose 105 mg/dL (70-99); Potassium 4.6 mmol/L (3.3-5.1); Sodium Level 140 mmol/L (133-145); Troponin T High Sensitivity 23 ng/L (<=22)
[2024-09-10 16:22] VITALS: BP 124/55
[2024-09-10 17:56] VITALS: BP 159/68; PULSE 55
[2024-09-10 18:24] LABS: Troponin T High Sens 2 HR 17 ng/L (<=22)
[2024-09-10 18:30] VITALS: BP 119/55; BP 139/68; BP 154/79; PULSE 64; PULSE 65; PULSE 69
[2024-09-10 18:47] VITALS: BP 118/105; PULSE 72; RESP 16; TEMP 36.4; O2SAT 98
== END 2024-09-10 18:51 | disposition home or self-care (01) ==
PROVIDERS: Emergency Provider Emergency Medicine; PCP Internal Medicine; Visit Provider Emergency Medicine
DX: R55 Syncope and collapse (principal); G20.A1 Parkinson's disease without dyskinesia, without mention of fluctuations; K58.9 Irritable bowel syndrome, unspecified; R00.1 Bradycardia, unspecified; I10 Essential (primary) hypertension; E03.9 Hypothyroidism, unspecified; M81.0 Age-related osteoporosis without current pathological fracture; F32.A Depression, unspecified; F41.9 Anxiety disorder, unspecified; N40.0 Benign prostatic hyperplasia without lower urinary tract symptoms; E78.00 Pure hypercholesterolemia, unspecified; Z79.82 Long term (current) use of aspirin; Z86.711 Personal history of pulmonary embolism; Z79.899 Other long term (current) drug therapy; Z79.890 Hormone replacement therapy; Z87.891 Personal history of nicotine dependence
CPT/HCPCS: 71045; 80048; 83735; 84484; 85025; 93005; 99284; A4216

== ENCOUNTER 2025-01-13 03:41 | Emergency (ER) | payer MEDICARE, SELFPAY ==
[2025-01-13 03:41] VITALS: BP 213/137; PULSE 93; RESP 20; TEMP 36.7; O2SAT 94; BMI 27.6
--- NOTE | 2025-01-13 04:16 | EX.ED.DYSGE1 ---
HPI History of Present Illness Chief Complaint: Hypertension Narrative Narrative: Patient is a 79-year-old male presenting to the emergency department for hypertension. Patient has a past medical history of hypertension and Parkinson's as well as additional history below. He states that about a month and a half ago he was having episodes of lightheadedness and palpitations and had a Holter monitor placed. States that his pulse ranged from mid 30s to 118. States that his doctor took him off of his metoprolol at that time and his been taking his blood pressure at home since. States he normally runs in the 130s systolic. States that tonight he took his blood pressure and it was in the 160s to 170s. States he continued to take it throughout the evening and before he went to bed and got up to systolics of 200s. States that he thought he should come in to be evaluated. He denies headache, vision changes, chest pain, shortness of breath, abdominal pain, nausea, vomiting. Denies any focal neurologic deficits including weakness or numbness. [facility] Medical History Urinary retention Chronic cough History of Clostridium difficile infection Ambulates with cane Excessive bleeding Parkinsons disease Abnormal weight loss Melanoma in situ of unspecified part of face IBS (irritable bowel syndrome) Chronic diarrhea Thyrotoxicosis Expressive aphasia Hyperthyroidism Hypothyroidism Osteoporosis Wears glasses Wears dentures Cancer Depression Anxiety Prostate disease Pulmonary embolism Back pain Syncope Difficulty swallowing Heartburn Former smoker Shortness of breath on exertion Leg cramps History of pain when walking History of echocardiogram Cardiology follow-up encounter Hypertension Skin cancer Arthritis Change in bowel habit Polycythemia Hyperlipidemia Osteoarthritis Diarrhea Fall Hypercholesterolemia BPH (benign prostatic hyperplasia) Acute respiratory failure with hypoxia Chronic respiratory failure with hypoxia Closed right hip fracture Home Medications ?Medication ?Instructions ?Recorded ?Last Taken ?Type metoprolol tartrate 25 mg tablet 25 mg PO DAILY heart 04/15/21 04/08/24 History potassium chloride 10 mEq 10 meq PO BID supplement 04/15/21 04/08/24 History capsule,extended release carbidopa 25 mg-levodopa 100 mg 1 tab PO TID PARKINSONS 10/18/21 04/09/24 History tablet isosorbide mononitrate 30 mg 30 mg PO DAILY ANGINA 10/18/21 04/08/24 History tablet,extended release 24 hr lorazepam 1 mg tablet (Ativan) 1 mg PO DAILY PRN Anxiety 12/01/21 02/15/22 History paroxetine HCl 20 mg tablet 20 mg PO DAILY DEPRESSION 12/07/21 04/08/24 History atorvastatin 20 mg tablet 20 mg PO QHS CHOLESTEROL 02/08/22 04/07/24 History tamsulosin 0.4 mg capsule 0.4 mg PO QHS #14 caps 08/21/23 04/07/24 Rx methimazole 5 mg tablet 5 mg PO DAILY THYROID #30 tabs 09/12/23 04/08/24 Rx [id number] 100 gram-sod sulf 7.5 240 ml PO PER PKG DIR #1 ea 12/14/23 04/08/24 Rx [id number] oral pwdr pack (MoviPrep) aspirin 81 mg tablet,delayed 81 mg PO QDAY 05/06/24 Unknown History release (Adult Low Dose Aspirin) cholestyramine (with sugar) 4 gram 4 g PO QDAY #348.6 grams 08/01/24 Unknown Rx oral powder pantoprazole 40 mg tablet,delayed 40 mg PO DAILY #30 TABLETS 10/22/24 Unknown Rx release Allergy/AdvReac Type Severity Reaction Status Date / Time No Known Allergies Allergy Verified 01/13/25 03:49 Family History Father Lung cancer Mother Parkinsons Heart failure Surgical History History of cataract extraction with lens replacement History of cholecystectomy S/P laparoscopic cholecystectomy History of esophagogastroduodenoscopy (EGD) Hx of colonoscopy History of nephrectomy, left History of tonsillectomy History of total knee replacement (TKR) History of transurethral resection of prostate History of cardiac catheterization History of rhinoplasty History of total right hip replacement reattachment of severed finger H/O colonoscopy stoma reversal History of colon surgery Social History household members: spouse housing: house 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al status: employed 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: [employer] pets and animals: Yes pets and animals: cat(s) and dog(s) Smoking Status: Former smoker quit date: 06/05/98 pack-years: 72 second hand exposure: No alcohol intake: never substance use type: does not use seatbelt use: always ROS ROS ED ROS Narrative see HPI EXAM Physical Exam Narrative Exam Narrative: Vital signs: Reviewed General: Alert and oriented. No acute distress HEENT: Head is normocephalic and atraumatic, sinuses nontender, pupils equal round and reactive. Nares are patent. Oropharynx and throat exams normal. Neck: Supple without lymphadenopathy nontender Cardiovascular: Regular rate and rhythm, no murmurs. No rubs or gallops. Normal S1 and S2 Respiratory: Clear to auscultation bilaterally. No wheezes, rales, rhonchi Abdominal: Soft and nontender. Normal bowel sounds. No guarding or rebound. Nonsurgical abdomen Extremities: No tenderness. No bruising. Normal range of motion. Normal sensation. Skin: No rash or redness. Neurological: Cranial nerves II through XII are grossly intact. Normal strength and sensation. Normal cerebellar function The rest of the physical exam is unremarkable Const Vital Signs: 01/13/25 03:41 01/13/25 03:49 01/13/25 04:38 Temperature 98.1 F Temperature Source Oral Pulse Rate 93 Respiratory Rate 20 H Respiratory Effort Normal Non-Labored Blood Pressure 213/137 H 177/82 H Blood Pressure Mean 162 113 Pulse Ox 94 Oxygen Delivery Method Room Air 01/13/25 05:12 Temperature 98.1 F Temperature Source Pulse Rate 62 Respiratory Rate 18 Respiratory Effort Blood Pressure 193/82 H Blood Pressure Mean 119 Pulse Ox 95 Oxygen Delivery Method MDM MDM MDM Narrative Medical decision making narrative: Patient is a 79-year-old male presenting to the emergency department for hypertension. Patient was seen and examined. Vitals are stable. He has a initial blood pressure of 213/137. He reports feeling very anxious to nursing staff. He is in no acute distress. Differential includes but is not limited to: Asymptomatic hypertension, hypertensive urgency versus emergency Patient has no evidence of endorgan damage. No headache, chest pain, shortness of breath or abdominal pain. He was taken off the metoprolol which is probably having a small effect on his BP. I also suspect that his anxiety is also causing worsening hypertension after checking his blood pressure multiple times at home. He does take Ativan for anxiety and was offered a small dose here. Will obtain a BMP given his systolic is very elevated above 210, will check kidney function with BMP. Will also give his prior dose of metoprolol here and monitor. BMP with baseline kidney function. No significant electrolyte disturbance. After medications, BP now in the systolics of 170s. Patient was reevaluated. Again he is asymptomatic, no headache, chest pain, abdominal pain or shortness of breath. I discussed checking blood pressures at home once in the morning and once at night unless he is symptomatic as discussed. I encouraged him to call his primary care doctor tomorrow morning to discuss possible addition of an antihypertensive given he has been taken off the metoprolol. States he also has an appointment on . Patient is appropriate for discharge home for asymptomatic hypertension. Patient discharged from the Emergency Department. I do not feel that the patient's evaluation reveals any acute reason for admission at this time. I instructed them to either follow-up with their primary care physician or promptly return to the Emergency Department for reevaluation should symptoms worsen or new symptoms develop. I explained what symptoms would indicate the need to return to the emergency department. Shared decision making was used. The patient voiced understanding of the treatment plan and is agreeable with it. Lab Data Labs: Laboratory Results - last 24 hr 01/13/25 04:28 Sodium 141 Potassium 3.5 Chloride 107 Carbon Dioxide 24.3 Anion Gap 9 BUN 18 Creatinine 1.30 H Estim Creat Clear Calc 47.57 L Est GFR (MDRD) Non-Af 56 L BUN/Creatinine Ratio 14.1 Glucose 101 H Calcium 8.9 Discharge Plan Triage Chief Complaint: Hypertension ED Provider: Tegan Olvera Dx/Rx/DC Orders Clinical Impression: Asymptomatic hypertension Instructions: Hypertension Dc, Blood Pressure Check Steps Prescriptions: No Action carbidopa-levodopa 25-100 mg tablet 1 tab PO TID lorazepam [Ativan] 1 mg tablet 1 mg PO DAILY PRN (Reason: Anxiety) [id number] [MoviPrep] 100-7.5-2.691 gram powder in packet 240 ml PO PER PKG DIR Qty: 1 0RF aspirin [Adult Low Dose Aspirin] 81 mg tablet,delayed release (DR/EC) 81 mg PO QDAY potassium chloride 10 mEq capsule, extended release 10 meq PO BID metoprolol tartrate 25 mg tablet 25 mg PO DAILY paroxetine HCl 20 mg tablet 20 mg PO DAILY MDD T isosorbide mononitrate 30 mg tablet extended release 24 hr 30 mg PO DAILY atorvastatin 20 mg tablet 20 mg PO QHS tamsulosin 0.4 mg Capsule 0.4 mg PO QHS Qty: 14 0RF methimazole 5 mg tablet 5 mg PO DAILY Qty: 30 6RF cholestyramine (with sugar) 4 gram powder 4 g PO QDAY Qty: 348.6 0RF Rx Instructions: administer w/meal; avoid other meds within 1hr before or 4-6hr after dose pantoprazole 40 mg tablet,delayed release (DR/EC) 40 mg PO DAILY Qty: 30 6RF Primary Care Provider: Brandon Cantor Referrals: Brandon Cantor MD [Primary Care Provider] - 2 Days Activity Restrictions/Additional Instructions: Your evaluation in the Emergency Department did not reveal any acute reason for admission. However, I want to emphasize that you may be early in the course of a disease process or illness even if it is not present. For this reason you should follow-up within 24 hours for reevaluation with either your primary care physician or if necessary back here in the Emergency Department. You should return to the Emergency Department immediately if your symptoms worsen or new symptoms develop. Call your doctor tomorrow to discuss adding on a blood pressure medication or if they want you to continue monitoring at home. Return to the ED with any headaches, chest pain, shortness of breath or abdominal pain. Print Language: Greek Disposition Disposition: Home, Self Care
[2025-01-13 04:38] VITALS: BP 177/82
[2025-01-13 05:07] LABS: Anion Gap 9 (5-15); BUN 18 mg/dL (4-19); BUN/Creat Ratio 14.1 RATIO (10-20); Calcium,Total 8.9 mg/dL (7.6-11.0); Carbon Dioxide 24.3 mmol/L (21.0-32.0); Chloride 107 mmol/L (98-108); Estimated Creatinine Clearance 47.57 ml/min (50-250); Glucose 101 mg/dL (70-99); Potassium 3.5 mmol/L (3.3-5.1)
[2025-01-13 05:12] VITALS: BP 193/82; PULSE 62; RESP 18; TEMP 36.7; O2SAT 95
--- OUTSIDE RECORDS SUMMARY | 2025-01-13 05:24 | XMS RPT_ITS | CCD ---
Author Organization [facility] Care Team Providers Care Barrel Rifler Button Name Role Phone William Jimenes MD Unavailable [phone] Daja Monsivais PA-C Unavailable Brandon Cantor MD Primary Care Provider Dr. Brandon Cantor Primary Care Provider Dr. Jabari Phan Admit Provider [phone] Dr. Jabari Phan Referring Provider Dr. Jabari Phan Other Provider [phone] Dr. Khoa Conner Attending Provider Dr. Khoa Conner Other Provider Dr. Ernesto Vela Attending Provider Dr. Ernesto Vela Other Provider Dr. William Jimenes Attending Provider [phone] Mundo Bernardo Referring Provider Dr. Mundo eBrnardo Emergency Provider Dr. Ewa Ordonez Admit Provider Dr. Ewa Ordonez Attending Provider Dr. Ewa Ordonez Other Provider Dr. Ruslan Franklin Other Provider [phone] Dr. Yisel Lanza Attending Provider [phone] Dr. Yisel Lanza Other Provider Dr. Brandon Cantor Referring Provider Dr. Marquis Murray Attending Provider Dr. Akin Fox Emergency Provider Ubaldo, Dr. Couch Admit Provider Dr. Darryl Harding Attending Provider Dr. Brandon Cantor Primary Care Provider Dr. Marquis Murray Attending Provider Dr. Khoa Conner Attending Provider Ubaldo, Dr. Couch Other Provider Dr. William Jimenes Attending Provider Brandon Cantor MD Primary Care Provider Dr. Brandon Cantor Primary Care Provider Dr. Brandon Cantor Referring Provider Dr. Marquis Murray Attending Provider Dr. Erasto Guzman Attending Provider Dr. Brandon Cantor Primary Care Provider Dr. Brandon Cantor Referring Provider Dr. James Obrien Attending Provider Dr. Brandon Cantor Primary Care Provider Dr. Brandon Cantor Referring Provider Dr. Erasto Guzman Attending Provider Dr. James Obrien Attending Provider Dr. William Jimenes Attending Provider Dr. William Jimenes Referring Provider Dr. Marquis Murray Attending Provider Dr. James Obrien Other Provider Dr. Jaspreet Cummins Emergency Provider Dr. Ewa Ordonez Admit Provider José Luis, Dr. Mcneil Attending Provider José Luis, Dr. Mcneil Other Provider Brandon Cantor MD Primary Care Provider Devaughn, Dr. Taylor Primary Care Provider Devaughn, Dr. Taylor Referring Provider Jayson MIXER CRANE OPERATOR, MIXER CRANE OPERATOR-C Ninoska Hearn Attending Provider [phone] Devaughn, Dr. Taylor Primary Care Provider Devaughn, Dr. Taylor Referring Provider Dr. James Obrien Attending Provider [phone] Devaughn, Dr. Taylor Primary Care Provider Devaughn, Dr. Taylor Referring Provider Dr. William Jimenes Attending Provider Cantor, Dr. Taylor Primary Care Provider Devaughn, Dr. Taylor Referring Provider Jayson ROOT, IVETT-Jozef Hearn Attending Provider [phone] Dr. Marquis Murray Attending Provider Devaughn, Dr. Taylor Primary Care Provider Devaughn, Dr. Taylor Referring Provider Dr. James Obrien Attending Provider [phone] Dr. James Obrien Other Provider [phone] Devaughn, Dr. Taylor Primary Care Provider Devaughn, Dr. Taylor Referring Provider Dr. James Obrien Attending Provider [phone] Dr. James Obrien Other Provider [phone] Dr. Marquis Murray Attending Provider Dr. William Jimenes Attending Provider Dr. William Jimenes Referring Provider Dr. Brandon Cantor Primary Care Provider Dr. Brandon Cantor Referring Provider Camille, Dr. Ramirez Attending Provider Friend, Dr. Ramirez Other Provider Dr. Brandon Cantor Primary Care Provider Dr. Brandon Cantor Referring Provider Friend, Dr. Ramirez Attending Provider Dr. Wisam Bella Emergency Provider Jaqueline, Dr. Austin Admit Provider Dr. Geovanna Parsons Attending Provider Jaqueline, Dr. Austin Other Provider Dr. Mateo Pastor Attending Provider Loi VERA, PA-C Daja Attending Provider Nurse, Surgery Attending Provider Unavailable Dr. Marquis Murray Attending Provider Brandon Cantor MD Primary Care Provider [facility] 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, Delicia M Unavailable Dr. Brandon Cantor MD Primary Care Provider Dr. Brandon Cantor MD Referring Provider Dr. Emory Isabel DO Attending Provider Dr. Darryl Harding MD Attending Provider Dr. Chris Pearson MD Attending Provider Angelica St Attending Provider Angelica St Referring Provider Dr. Jose Armando Fierro DO Emergency Provider Brandon Cantor Referring Unavailable Emory Isabel Attending Unavailable Brandon Cantor Primary Care Unavailable Cantor, Brandon Referring Unavailable Cantor, Brandon Primary Care Unavailable James Obrien Attending Unavailable FriendJames Attending Unavailable FriendJames Consulting Unavailable Cantor, Brandon Referring Unavailable Cantor, Brandon Primary Care Unavailable Darryl Harding Attending Unavailable Cantor, Brandon Primary Care Unavailable Cantor, Brandon Referring Unavailable Emory Isabel Attending Unavailable Cantor, Brandon Primary Care Unavailable Cantor, Brandon Referring Unavailable Cantor, Brandon Primary Care Unavailable FriendJames Attending Unavailable Allyn, Angelica Referring Unavailable Allyn, Angelica Attending Unavailable Cantor, Brandon Primary Care Unavailable Chris Pearson Attending Unavailable Cantor, Brandon Primary Care Unavailable Jose Armando Fierro Attending Unavailable Cantor, Brandon Primary Care Unavailable CHRIS PEARSON JR Attending Unavailable CANTOR, KARTHIK Primary Care Unavailable CANTOR, KARTHIK Referring Unavailable CANTOR, KARTHIK Primary Care Unavailable TESTRAKE, DEBRA Attending Unavailable TESTDEBRA MARQUEZ Referring Unavailable CANTOR, KARTHIK Primary Care Unavailable CHRIS PEARSON JR Attending Unavailable CANTOR, KARTHIK Primary Care Unavailable CANTOR, KARTHIK Referring Unavailable CANTOR, KARTHIK Primary Care Unavailable TESTRAKE, DEBRA Attending Unavailable TESTRASIOMARA, DEBRA Referring Unavailable CANTOR, KARTHIK Primary Care Unavailable CANTOR, KARTHIK Attending Unavailable CANTOR, KARTHIK Primary Care Unavailable CANTOR, BRANDON Tejeda Attending Unavailable TESTRAKE, DEBRA Referring Unavailable CANTOR, KARTHIK Primary Care Unavailable CANTOR, KARTHIK Referring Unavailable CANTOR, KARTHIK Primary Care Unavailable CANTOR, BRANDON Tejeda Attending Unavailable CANTOR, KARTHIK Primary Care Unavailable CANTOR, KARTHIK Attending Unavailable CANTOR, KARTHIK Primary Care Unavailable TESTRAKE, DEBRA Attending Unavailable TESTRASIOMARA, DEBRA Referring Unavailable CANTOR, KARTHIK Primary Care Unavailable CHRIS PEARSON JR Attending Unavailable CANTOR, KARTHIK Primary Care Unavailable TESTRAKE, DEBRA Attending Unavailable TESTRAKE, DEBRA Referring Unavailable CANTOR, KARTHIK Primary Care Unavailable DOUGLAS MORTENSEN Attending Unavailable DOUGLAS MORTENSEN Referring Unavailable CANTOR, KARTHIK Primary Care Unavailable Medications Current Medications Medication Drug Class(es) Dates Sig (Normalized) Sig (Original) acetaminophen 325 mg / oxyCODONE hydrochloride 5 mg oral tablet (20 sources) Opioid Agonist Start: 02-16-2022 take 1 tablet by mouth every six hours Oxycodone-Acetami nophen Active 1 TABLET PO EVERY 6 HOURS 14 February 16, 2022 Start: 06-07-2018 End: 06-10-2018 Oxycodone-Acetaminophen 1 TA BLET tablet Discontinued 1 {tbl} PO EVERY 6 HOURS NEEDED as needed for Pain 12 June 07, 2018 1:00am June 09, 2018 1:00am June 10, 2018 1:10am Start: 06-07-2018 End: 06-10-2018 take 1 tablet by mouth every six hours as needed Oxycodone-Acetaminophen Discontinued 1 TABLET PO EVERY 6 HOURS NEEDED 12 June 07, 2018 1:00am June 10, 2018 1:10am ascorbic acid 4700 mg / polyethylene glycol [id number] [id number] mg / potassium chloride 1015 mg / sodium ascorbate 5900 mg / sodium chloride 2690 mg / sodium sulfate 7500 mg powder for oral solution (4 sources) Osmotic Laxative, Vitamin C Start: 12-14-2023 take 1 mL by mouth once [id number] Fjm-Kcoj-Qat-Asb-C (Moviprep) 100-7.5-2.691 gram powder in packet Active 240 mL PO per package directions December 14, 2023 12:00am Start: 03-01-2022 [id number] [place] n-Daxq-Xip-Asb-C (Moviprep) 100-7.5-2.691 gram powder in packet Active 0 PO per package directions February 28, 2022 11:00pm PO PER PKG DIR aspirin 81 mg delayed release oral tablet (20 sources) Nonsteroidal Anti-inflammatory Drug Start: 05-06-2024 Aspirin (Adult Lo w Dose Aspirin) 81 mg tablet,delayed release (DR/EC) Active 81 mg PO daily May 06, 2024 1:00am Start: 01-31-2023 take 81 mg by mouth once daily Aspirin Active 81 MG PO DAILY January 30, 2023 11:00pm Start: 10-19-2021 End: 02-16-2022 take 1 tablet by mouth at breakfast Aspirin 81 mg Tablet,Chewable Discontinued 81 mg PO WITH BREAKFAST October 19, 2021 12:00am February 16, 2022 8:18am Start: 09-25-2018 End: 05-14-2021 take 1 tablet by mouth once daily Aspirin (Adult Aspirin Regimen) 81 mg tablet,delayed release (DR/EC) Discontinued 81 mg PO DAILY September 25, 2018 12:00am May 14, 2021 10:46am Start: 01-12-2017 End: 01-16-2018 take 1 tablet by mouth once daily Aspirin 81 MG tablet Discontinued 81 mg PO DAILY@0800 January 12, 2017 12:00am January 16, 2018 12:15pm Start: 01-05-2017 take 1 tablet by ronni th once daily ADULT ASPIRIN EC LOW STRENGTH 81 MG TBEC One tablet by mouth daily ASPIRIN [id number] Daja Monsivais PA-C atorvastatin 20 mg oral tablet (20 sources) HMG-CoA Reductase Inhibitor Start: 10-19-2021 End: 02-08-2022 take 2 tablets by mouth at bedtime Atorvastatin 20 mg tablet Discontinued 40 mg PO AT BEDTIME 60 October 19, 2021 10:48am February 08, 2022 8:08am Start: 10-19-2021 End: 02-08-2022 take 40 mg by mouth at bedtime Atorvastatin Discontinu ed 40 MG PO AT BEDTIME 60 October 19, 2021 10:48am February 08, 2022 8:08am Start: 04-15-2021 End: 01-29-2024 take 1 tablet by mouth once daily at bedtime for hyperlipidemia atorvastatin (LIPITOR) 20 mg tablet Indications: Coronary artery disease of [place] artery of [place] heart with stable angina pectoris , Hyperlipidemia LDL goal Take 1 tablet by mouth daily at bedtime. For cholesterol. 90 tablet 3 01/29/2024 Active Comment on above: Take 1 tablet by ronni th daily at bedtime. For cholesterol. carbidopa 50 mg / levodopa 200 mg extended release oral tablet (20 sources) Aromatic Amino Acid Decarboxylation Inhibitor, Aromatic Amino Acid Start: 08-16-2024 End: 10-18-2024 carbidopa-levodopa CR (SINEMET CR) 50-200 mg per tablet Indications: Parkinson's disease, unspecified whether dyskinesia present, unspecified whether manifestations fluctuate (HCC) Take 1 tab at 8AM and 1 tab at 9PM nightly. 3 10/18/2024 Active Start: 05-13-2024 End: 08-16-2024 carbidopa-levodopa (SINEMET) 25-100 mg per tablet Indications: Parkinson's disease, unspecified whether dyskinesia present, unspecified whether manifestations fluctuate (HCC) Take 2 tablets at 8AM, Noon and 4PM. 405 tablet 3 08/16/2024 Active Start: 05-13-2024 End: 08-16-2024 carbidopa-levodopa CR (TAY ET CR) 50-200 mg per tablet Indications: Parkinson's disease, unspecified whether dyskinesia present, unspecified whether manifestations fluctuate (HCC) Take at 9PM nightly. 90 tablet 3 05/13/2024 08/16/2024 Discontinued Start: 10-18-2021 Carbidopa-Levo dopa Active 25 - 100 TAB PO THREE TIMES A DAY October 18, 2021 10:31am /2 tablet week one (10/11) 0730, 1230, 1730 1 tablet week two Start: 10-18-2021 Carbidopa-Levo dopa Active TAB PO October 18, 2021 10:31am Start: 10-18-2021 End: 05-13-2024 take 1.5 tablets by mouth three times daily carbidopa-levodopa (SINEMET) 25-100 mg per tablet Indications: Parkinson's disease, unspecified whether dyskinesia present, unspecified whether manifestations fluctuate (HCC) Take 1.5 tablets by mouth three times a day. 405 tablet 1 05/10/2023 05/13/2024 Discontinued Start: 10-18-2021 take 1 tablet by ronni th three times daily Carbidopa-Levodopa Active 1 TABLET PO THREE TIMES A DAY October 18, 2021 12:00am Start: 10-18-2021 take 1.5 tablets by mouth three times daily Carbidopa-Levodopa Active 1.5 TAB PO THREE TIMES A DAY October 18, 2021 12:00am Start: 10-18-2021 take 1.5 tablets by mouth three times daily Carbidopa-Levodopa Active 1.5 TAB PO THREE TIMES A DAY October 17, 2021 11:00pm Start: 10-18-2021 Carbidopa-Levo dopa Active 25 - 100 TAB PO THREE TIMES A DAY October 17, 2021 11:00pm 1/2 tablet week one (10/11) 0730, 1230, 1730 1 tablet week two Start: 10-18-2021 Carbidopa-Levo dopa Active 25 - 100 TAB PO THREE TIMES A DAY October 18, 2021 12:00am 1/2 tablet week one (10/11) 0730, 1230, 1730 1 tablet week two Start: 10-11-2021 carbidopa-levo dopa (SINEMET 25-100) 25-100 mg per tablet Indications: Parkinson disease (HCC) Take 1/2 tab po at 730AM, 12:30PM, 5:30 PM for first week. Week 2 start 1 tab at these times. 270 tablet 3 10/11/2021 Active Comment on above: Take 1/2 tab po at 7 30AM, 12:30PM, 5:30 PM for first week. Week 2 start 1 tab at these times. Take 1.5 tablets by mouth three times daily. Take 1.5 tablets by mouth three times a day. cholestyramine/aspartame (CHOLESTYRAMINE LIGHT ORAL) (17 sources) cholestyramine/a spartam e (CHOLESTYRAMINE LIGHT ORAL) Take by mouth once daily. Active clopidogrel 75 mg oral tablet (5 sources) [id number] Platelet Inhibitor Start : 10-19 take 1 tablet by mouth once daily Clopidogrel (Plavix) 75 mg tablet Active 75 MG PO DAILY October 19, 2021 12:00am diazePAM 2 mg oral tablet (2 sources) Benzodiazepine Start : 08-10 take 1 tablet by mouth three times daily Diazepam (Valium) 2 mg tablet Active 2 MG PO THREE TIMES A DAY 9 August 10, 2022 1:00am docusate sodium 100 mg oral capsule (3 sources) Start : 02-16 take 1 capsule by mouth twice daily Docusate Sodium (Colace) 100 mg capsule Active 100 MG PO TWICE A DAY February 15, 2022 11:00pm enteric contrast (will be provided with radiology test) (5 sources) Start : 09-13 End: 09-14 enteric contrast (will be provided with radiology test) For CT ABD/PEL W IVCON Routine order Administer, As Directed One Time Only, via Oral, Rectal, both Oral and Rectal, Enteric Tube, Stoma or Indwelling Catheter, Enteric Contrast as designated per enteric contrast guidelines 1 Each 0 09/13/2021 09/14/2021 Active Comment on above: For CT ABD/PEL W IVC ON Routine order Administer, As Directed One Time Only, via Oral, Rectal, both Oral and Rectal, Enteric Tube, Stoma or Indwelling Catheter, Enteric Contrast as designated per enteric contrast guidelines hydroCHLOROthiazide 25 mg oral tablet (2 sources) Thiazide Diuretic Start : 03-12 take 25 mg by mouth once daily Hydrochlorothiazide Active 25 MG PO DAILY March 12, 2019 10:03am 24 hr isosorbide mononitrate 30 mg extended release oral tablet (20 sources) Nitrate Vasodilator Start : 02-15 End: 04-01 take 1 tablet by mouth once daily isosorbide mononitrate ER (IMDUR) 30 mg 24 hr tablet Indications: Coronary artery disease of [place] artery of [place] heart with stable angina pectoris Take 1 tablet by mouth once daily. 90 tablet 3 04/01/2024 Active Comment on above: Take 1 tablet by ronni once daily. iv contrast (will be provided with radiology test) (5 sources) Start : 09-13 End: 09-14 iv contrast (will be provided with radiology test) CT ABD/PEL -Inject, intravenously, once for 1 dose.No IV access, insert saline lock prior to the beginning of sedation, infusion, injection of imaging exam. Discontinue saline lock post exam. If Pt. has a central line or IVAD, may access for administration according to line specific nursing protocol. Once exam is complete flush line and de-access according to line specific nursing protocol in the CT contrast administration guidelines link. 1 Each 0 09/13/2021 09/14/2021 Active Comment on above: CT ABD/PEL -Inject, intravenously, once for 1 dose.No IV access, insert saline lock prior to the beginning of sedation, infusion, injection of imaging exam. Discontinue saline lock post exam. If Pt. has a central line or IVAD, may access for administration according to line specific nursing protocol. Once exam is complete flush line and de-access according to line specific nursing protocol in the CT contrast administration guidelines link. ketoconazole 20 mg/ml medicated shampoo (20 sources) Azole Antifungal Start : 05-10 ketoconazole (NIZORAL) 2 % shampoo Apply to affected area two times a week. Per [facility] PRN 05/10/2023 Active Comment on above: Apply to affected ar ea two times a week. Per [facility] lidocaine 0.05 mg/mg medicated patch (6 sources) Antiarrhythmic, Amide Local Anesthetic Start : 05-01 apply 1 dose topically once daily Lidocaine Active 2 PATCH TOPICAL DAILY 30 May 01, 2022 1:00am leave on most painful area for up to 12 hrs LORazepam 1 mg oral tablet (20 sources) Benzodiazepine Start : 03-29 End: 08-15 take 1 tablet by mouth every twenty-four hours as needed for anxiety and anxiety LORazepam (ATIVAN) 1 mg tablet Indications: Anxiety Take 1 tablet by mouth at bedtime as needed for anxiety for up to 90 days. 30 tablet 05/17/2024 Active Start: 12-01-2021 take 1 tablet by ronni th once daily as needed for anxiety Lorazepam (Ativan) 1 mg tablet Active 1 mg PO DAILY as needed for Anxiety December 01, 2021 12:00am Start: 01-31-2018 End: 06-26-2022 take 1 tablet by mouth at bedtime as needed for anxiety LORazepam (ATIVAN) 1 mg tablet Indications: Anxiety , Insomnia, unspecified type Take 1 tablet by mouth at bedtime as needed for anxiety for up to 180 days. 30 tablet 0 12/28/2021 03/29/2022 Discontinued Start: 01-12-2017 End: 01-16-2018 take 1 tablet by mouth once daily as needed for anxiety Lorazepam 1 MG tablet Discontinued 1 mg PO DAILY NEEDED as needed for Anxiety January 12, 2017 12:00am January 16, 2018 12:09pm Start: 01-05-2017 ATIVAN 0.5 MG TABS as directed as needed for anxiety LORAZEPAM [id number] Daja Monsivais PA-C Comment on above: Take 1 tablet by ronni th at bedtime as needed for anxiety for up to 180 days. Take 1 tablet by ronni th at bedtime as needed for anxiety for up to 90 days. methIMAzole 5 mg oral tablet (20 sources) Thyroid Hormone Synthesis Inhibitor Start: 2 End: 5 take 1 tablet by mouth once daily methIMAzole (TAPAZOLE) 5 mg tablet Take 1 tablet by mouth once daily. 90 tablet 1 07/31/2024 Active Comment on above: Take 1 tablet by ronni th once daily. Per Dr. Mayela Murray, endocrinology. pantoprazole 40 mg delayed release oral tablet (20 sources) Proton Pump Inhibitor Start: 3 End: 5 take 1 tablet by mouth once daily pantoprazole DR (PROTONIX) 40 mg tablet Take 40 mg by mouth once daily. 05/07/2024 Active Start: 02-10-2023 End: 02-28-2023 take 1 tablet by mouth twice daily Pantoprazole 40 mg tablet,delayed release (DR/EC) Discontinued 40 mg PO TWICE A DAY 60 February 10, 2023 12:00am March 11, 2023 12:00am February 28, 2023 3:39pm PARoxetine hydrochloride 20 mg oral tablet (20 sources) Serotonin Reuptake Inhibitor Start: 12-07-2021 End: 11-15-2024 take 1 tablet by mouth once daily PARoxetine (PAXIL) 20 mg tablet Indications: Anxiety Take 1 tablet by mouth once daily. 90 tablet 3 11/15/2024 Active Start: 11-30-2021 End: 12-07-2021 take 10 mg by mouth once daily Paroxetine Hcl 20 mg ta blet Discontinued 10 mg PO DAILY November 30, 2021 8:33am December 07, 2021 1:11pm Start: 11-30-2021 End: 12-07-2021 take 10 mg by mouth once daily Paroxetine Hcl Disconti nued 10 MG PO DAILY November 30, 2021 8:33am December 07, 2021 1:11pm Start: 11-17-2021 End: 04-01-2022 take 0.5 tablet by mouth once daily PARoxetine (PAXIL) 20 mg tablet Indications: Anxiety Take 0.5 tablets by mouth once daily. 3 11/17/2021 04/01/2022 Discontinued Start: 07-23-2021 End: 11-30-2021 take 1 tablet by mouth once daily Paroxetine Hcl 20 mg tablet Discontinued 20 mg PO DAILY July 23, 2021 1:00am November 30, 2021 8:33am Start: 01-05-2017 take 1 tablet by ronni once daily PAXIL 20 MG TABS One tablet by mouth daily PAROXETINE HCL [id number] Daja Monsivais PA-C Comment on above: Take 1 tablet by ronni once daily. Take 0.5 tablets by mouth once daily. potassium chloride 10 meq extended release oral capsule (20 sources) Start: End: 4 take 1 capsule by mouth twice daily potassium chloride SR (MICRO-K) 10 mEq CR capsule Indications: Primary hypertension Take 1 capsule by mouth two times a day. 180 capsule 3 05/17/2024 Active Comment on above: Take 1 capsule by mo ut twice daily. Take [address] [facility] two times a day. tamsulosin hydrochloride 0.4 mg oral capsule (20 sources) alpha-Adrenergic Luis Start: 4 take 1 capsule by mouth at bedtime Tamsulosin 0.4 mg Capsule Active 0.4 mg PO AT BEDTIME August 21, 2023 12:00am Start: 02-08-2022 End: 08-18-2023 take 1 capsule by mouth at bedtime Tamsulosin 0.4 mg capsule Discontinued 0.4 mg PO AT BEDTIME February 08, 2022 12:00am August 18, 2023 2:57am Start: 02-08-2022 take 1 mg by mouth at bedtime Tamsulosin Active MG PO AT BEDTIME February 08, 2022 12:00am Start: 07-28-2021 take 0.4 mg by mouth once gonsalo y Tamsulosin Active 0.4 MG PO DAILY@1730 30 July 28, 2021 2:16pm Start: 05-10-2018 End: 05-14-2021 take 1 capsule by mouth once daily Tamsulosin (Flomax) 0.4 mg capsule Discontinued 0.4 mg PO DAILY May 10, 2018 1:00am May 14, 2021 10:46am Comment on above: Take 0.4 mg by mouth once daily. vancomycin 125 mg oral capsule (10 sources) Glycopeptide Antibacterial Start: 2 End: 2 take 1 capsule by mouth twice daily, then take 1 capsule by mouth once daily vancomycin (VANCOCIN) 125 mg capsule Indications: Clostridium difficile diarrhea Take 1 capsule by mouth twice daily for 7 days, THEN 1 capsule once daily for 7 days. 21 capsule 0 09/02/2021 09/16/2021 Active Start: 08-21-2021 take 125 mg by mouth every six hours Vancomycin Active 125 MG PO EVERY 6 HOURS 40 August 21, 2021 4:17pm Comment on above: Take 1 capsule by mo uth twice daily for 7 days, THEN 1 capsule once daily for 7 days. Completed/Discontinued Medications Medication Drug Class(es) Dates Sig (Normalized) Sig (Original) acetaminophen 325 mg oral tablet (20 sources) Start: 10-18-2021 End: 09-08-2022 take 2 tablets by mouth every six hours as needed for pain Acetaminophen 325 mg Tablet Discontinued 650 mg PO EVERY 6 HOURS as needed for Pain October 18, 2021 12:00am September 08, 2022 2:32pm Start: 10-18-2021 End: 09-08-2022 take 650 mg by mouth every six hours Acetaminophen Discontinued 650 MG PO EVERY 6 HOURS October 18, 2021 12:00am September 08, 2022 2:32pm Start: 07-22-2021 take 3000 mg by mout h three times daily Acetaminophen Active 1000 MG PO THREE TIMES A DAY 84 July 22, 2021 12:31pm Do not take more than 3000 mg Tylenol in a 24-hour period. Start: 08-05-2018 End: 07-22-2021 take 2 tablets by mouth once daily as needed Tylenol Discontinued 2 TABLET PO DAILY NEEDED August 05, 2018 11:18am July 22, 2021 12:32pm Start: 08-05-2018 End: 07-22-2021 Tylenol 500 MG tablet Discon tinued 2 {tbl} PO DAILY NEEDED as needed for Pain August 05, 2018 1:00am July 22, 2021 12:32pm Start: 08-05-2018 End: 07-22-2021 take 2 tablets by mouth once daily as needed Tylenol Discontinued 2 TABLET PO DAILY NEEDED August 05, 2018 12:00am July 22, 2021 11:32am Start: 08-05-2018 End: 07-22-2021 take 2 tablets by mouth once daily as needed Tylenol Discontinued 2 TABLET PO DAILY NEEDED August 05, 2018 1:00am July 22, 2021 12:32pm Start: 01-22-2018 End: 01-31-2018 take 2 tablets by mouth every eight hours as needed for pain Acetaminophen 500 MG tablet Discontinued 1000 mg PO EVERY 8 HOURS NEEDED as needed for Mild Pain (1-3/10) January 22, 2018 12:00am January 31, 2018 9:08am Start: 01-22-2018 End: 01-31-2018 take 1000 mg by mouth every eight hours as needed Acetaminophen Discontinued 1000 MG PO EVERY 8 HOURS NEEDED January 22, 2018 12:00am January 31, 2018 9:08am Start: 01-16-2018 End: 01-22-2018 Acetaminophen (Tylenol) 325 MG tablet Discontinued 650 mg PO EVERY 6 HOURS NEEDED as needed for Mild Pain (1-3)/Temp > 100.7 F January 16, 2018 12:00am January 22, 2018 9:31pm Start: 01-16-2018 End: 01-22-2018 take 2 tablets by mouth every six hours as needed Acetaminophen (Tylenol) 325 MG tablet Discontinued 650 MG PO EVERY 6 HOURS NEEDED January 16, 2018 12:00am January 22, 2018 9:31pm End: 08-04-2022 take 1 capsule by mouth every six hours as needed Acetaminophen 500 mg cap Take 500 mg by mouth every 6 hours as needed. 0 08/04/2022 Discontinued Comment on above: Take 500 mg by mouth every 6 hours as needed. amLODIPine 2.5 mg oral tablet (2 sources) Dihydropyridine Calcium Channel Luis Start: 01-06-20 take 1 tablet by mouth once daily AMLODIPINE BESYLATE 2.5 MG TABS One tablet by mouth daily AMLODIPINE BESYLATE [id number] Daja Monsivais PA-C [facility] (20 sources) Start: 08-22-19 End: 10-20-19 take 81 mg by mouth twice daily [facility] Discontinued 81 MG OTHER TWICE A DAY August 21, 2021 10:48am October 19, 2021 10:45am PO (option unavailable) Start: 08-21-2021 take 81 mg by mouth twice daily [facility] Active 81 MG SL/PO TWICE A DAY August 21, 2021 10:48am Start: 08-21-2021 End: 10-19-2021 take 81 mg by mouth twice daily [facility] Discontinued 81 mg OTHER TWICE A DAY August 21, 2021 12:00am October 19, 2021 10:45am PO (option unavailable) Start: 08-21-2021 End: 10-19-2021 take 81 mg by mouth twice daily [facility] Discontinued 81 MG OTHER TWICE A DAY August 20, 2021 11:00pm October 19, 2021 9:45am PO (option unavailable) Start: 08-21-2021 End: 10-19-2021 take 81 mg by mouth twice daily [facility] Discontinued 81 MG OTHER TWICE A DAY August 21, 2021 12:00am October 19, 2021 10:45am PO (option unavailable) atropine sulfate 0.025 mg / diphenoxylate hydrochloride 2.5 mg oral tablet (20 sources) Anticholinergic, Cholinergic Muscarinic Antagonist, Antidiarrheal Start: 09-02-2022 End: 09-27-2022 Diphenoxylate-Atropine (Lomotil) 2.5-0.025 mg tablet Discontinued 2 {tbl} PO AT BEDTIME 60 September 19, 2022 1:06pm September 27, 2022 9:39am calcium carbonate 500 mg chewable tablet (20 sources) Start: 01-16-2018 End: 01-31-2018 take 2 tablets by mouth every four hours as needed Calcium Carbonate 500 MG tablet Discontinued 1000 mg PO EVERY 4 HOURS NEEDED as needed for Indigestion January 16, 2018 12:00am January 31, 2018 9:08am Start: 01-16-2018 End: 01-31-2018 take 1000 mg by mouth every four hours as needed Calcium Carbonate Discontinued 1000 MG PO EVERY 4 HOURS NEEDED January 16, 2018 12:00am January 31, 2018 9:08am cholecalciferol 0.025 mg oral tablet (20 sources) Vitamin D Start: 07-07-2021 End: 04-03-2024 take 1 tablet by mouth once daily Cholecalciferol (Vitamin D3) (Vitamin D3) 25 mcg (1,000 unit) Tablet Discontinued 25 ug PO DAILY July 07, 2021 1:00am April 03, 2024 12:17pm End: 04-15-2024 take 1 capsule by mouth once daily Cholecalciferol, Vitamin D3, 25 mcg (1,000 unit) cap Take 1,000 Units by mouth once daily. 04/15/2024 Discontinued (Course of therapy completed) Cholecalciferol, Vitamin D3, (VITAMIN D) 25 mcg (1,000 unit) cap Take 1,000 Units by mouth once daily. 0 Active Comment on above: Take 1,000 Units by mouth once daily. cholestyramine resin 4000 mg powder for oral suspension (13 sources) Bile Acid Sequestrant Start: 12-14-2023 End: 08-01-2024 Cholestyramine (With Sugar) 4 gram powder Discontinued 1 g PO BEDTIME 348.6 July 30, 2024 3:48pm August 01, 2024 5:00pm administer w/meal; avoid other meds within 1hr before or 4-6hr after dose Start: 06-14-2023 End: 12-14-2023 Cholestyramine (With Sugar) 4 gram powder Discontinued 1 g PO BEDTIME 348.6 June 14, 2023 1:00am December 14, 2023 2:21pm administer w/meal; avoid other meds within 1hr before or 4-6hr after dose Start: 06-14-2023 Cholestyramine (With Sugar) Active 1 GM PO BEDTIME 348.6 June 14, 2023 1:00am administer w/meal; avoid other meds within 1hr before or 4-6hr after dose Start: 06-14-2023 Cholestyramine (With Sugar) Active 1 GM PO BEDTIME 348.6 June 14, 2023 12:00am administer w/meal; avoid other meds within 1hr before or 4-6hr after dose colestipol hydrochloride 1000 mg oral tablet (7 sources) Bile Acid Sequestrant Start: 11-04-2022 take 1 tablet by mouth once daily colestipol (COLESTID) 1 gram tablet Take 1 tablet by mouth once daily. 0 11/04/2022 Active Comment on above: Take 1 tablet by ronni th once daily. dicyclomine hydrochloride 10 mg oral capsule (20 sources) Anticholinergic Start: 12-17-2020 End: 11-17-2021 take 1 capsule by mouth at bedtime Dicyclomine 10 mg capsule Discontinued 10 mg PO AT BEDTIME October 18, 2021 12:00am October 19, 2021 10:45am Comment on above: Take 1 capsule by mo uth daily at bedtime. For bowel movement. docusate sodium 50 mg / sennosides, fdc 8.6 mg oral tablet (20 sources) Start: 01-16-2018 End: 01-22-2018 take 1 tablet by mouth twice daily Sennosides-Docusate Sodium (Stool Softener-Stimulant Laxat) 1 TABLET tablet Discontinued 2 {tbl} PO TWICE A DAY January 17, 2018 7:31pm January 22, 2018 9:33pm ergocalciferol 1.25 mg oral capsule (20 sources) Provitamin D2 Compound Start: 01-16-2018 End: 05-10-2018 Ergocalciferol (Vitamin D2) 50,000 UNIT capsule Discontinued 99861 U PO Q7D January 17, 2018 7:31pm May 10, 2018 11:28am through 03/03/18 folic acid 1 mg / vitamin b12 0.5 mg oral tablet (11 sources) Vitamin B12 Start: 01-31-2023 End: 08-18-2023 Vitamin J66-Ejdsz Acid 0.5-1 mg tablet Discontinued 1 {tbl} PO DAILY January 31, 2023 12:00am August 18, 2023 2:57am Start: 01-31-2023 End: 08-18-2023 take 1 tablet by mouth once daily Vitamin L95-Lpoug Acid Discontinued 1 TABLET PO DAILY January 31, 2023 12:00am August 18, 2023 2:57am Food Supplemt, Lactose-Reduced (Ensure Enlive) 120 ML Liquid (20 sources) Start: 01-17-2018 End: 01-22-2018 take 1 mL by mouth four times daily Food Supplemt, Lactose-Reduced (Ensure Enlive) 120 ML Liquid Discontinued 120 mL PO 4 TIMES DAILY January 17, 2018 7:31pm January 22, 2018 9:32pm Start: 01-17-2018 End: 01-22-2018 take 1 mL by mouth four times daily Food Supplemt, Lactose-Reduced (Ensure Enlive) 120 ML Liquid Discontinued 120 ML PO 4 TIMES DAILY January 17, 2018 6:31pm January 22, 2018 8:32pm Start: 01-17-2018 End: 01-22-2018 take 1 mL by mouth four times daily Food Supplemt, Lactose-Reduced (Ensure Enlive) 120 ML Liquid Discontinued 120 ML PO 4 TIMES DAILY January 17, 2018 7:31pm January 22, 2018 9:32pm Start: 01-16-2018 End: 01-17-2018 take 1 mL by mouth four times daily Food Supplemt, Lactose-Reduced (Ensure Enlive) 120 ML Liquid Discontinued 120 ML PO 4 TIMES DAILY January 16, 2018 12:08pm January 17, 2018 7:31pm Start: 01-16-2018 End: 01-17-2018 take 1 mL by mouth four times daily Food Supplemt, Lactose-Reduced (Ensure Enlive) 120 ML Liquid Discontinued 120 mL PO 4 TIMES DAILY January 16, 2018 12:00am January 17, 2018 7:31pm Start: 01-16-2018 End: 01-17-2018 take 1 mL by mouth four times daily Food Supplemt, Lactose-Reduced (Ensure Enlive) 120 ML Liquid Discontinued 120 ML PO 4 TIMES DAILY January 15, 2018 11:00pm January 17, 2018 6:31pm Start: 01-16-2018 End: 01-17-2018 take 1 mL by mouth four times daily Food Supplemt, Lactose-Reduced (Ensure Enlive) 120 ML Liquid Discontinued 120 ML PO 4 TIMES DAILY January 16, 2018 12:00am January 17, 2018 7:31pm gabapentin 100 mg oral capsule (20 sources) Anti-epileptic Agent Start: 05-10-2018 End: 03-12-2019 take 100 mg by mouth at bedtime gabapentin Discontinued 100 mg PO AT BEDTIME May 10, 2018 1:00am March 12, 2019 10:03am hydrocortisone 25 mg/ml topical cream (20 sources) Corticosteroid Start: 01-17-2018 End: 01-31-2018 Hydrocortisone 1 APPLIC cream Discontinued 1 NMA TOPICAL TWICE DAILY NEEDED as needed for Itching 1 January 17, 2018 12:00am January 31, 2018 9:08am Start: 01-17-2018 End: 01-31-2018 Hydrocortisone Discontinued 1 APPLIC TOPICAL TWICE DAILY NEEDED 1 January 17, 2018 12:00am January 31, 2018 9:08am ipratropium bromide 0.042 mg/actuat metered dose nasal spray (20 sources) Anticholinergic Start: 05-17-2024 End: 09-12-2024 ipratropium bromide (ATROVENT) 42 mcg (0.06 %) nasal spray Indications: Vasomotor rhinitis Use 2 Sprays in the nose as needed. 05/17/2024 09/12/2024 Discontinued Start: 05-10-2023 End: 05-17-2024 ipratropium bromide (ATROVEN T) 42 mcg (0.06 %) nasal spray Indications: Vasomotor rhinitis Use 2 Sprays in the nose four times daily. 15 mL 5 05/10/2023 05/17/2024 Discontinued Start: 08-04-2022 ipratropium br omide (ATROVENT) 42 mcg (0.06 %) nasal spray Indications: Vasomotor rhinitis Use 2 Sprays in the nose three times daily. 15 mL 1 08/04/2022 Active Comment on above: Use 2 Sprays in the nose three times daily. Use 2 Sprays in the nose four times daily. loperamide hydrochloride 2 mg oral capsule (20 sources) Opioid Agonist Start: 01-13-20 End: 01-23-20 18 take 1 capsule by mouth every six hours as needed for diarrhea Loperamide 2 MG capsule Discontinued 2 mg PO EVERY 6 HOURS NEEDED as needed for Diarrhea January 12, 2017 12:00am January 22, 2018 9:33pm meloxicam 15 mg oral tablet (20 sources) Nonsteroidal Anti-inflammatory Drug Start: 10-10-19 End: 07-22-19 Meloxicam 15 MG tablet Discontinued 15 mg PO NEEDED as needed for Pain October 09, 2018 12:00am July 22, 2021 12:32pm Start: 01-31-2018 End: 05-10-2018 take 1 tablet by mouth once daily as needed Meloxicam 15 mg tablet Discontinued 15 mg PO DAILY as needed January 31, 2018 12:00am May 10, 2018 11:27am Start: 01-12-2017 End: 01-16-2018 take 1 tablet by mouth once daily as needed for pain Meloxicam (Mobic) 15 MG tablet Discontinued 15 mg PO DAILY NEEDED as needed for Pain January 12, 2017 12:00am January 16, 2018 12:15pm Start: 01-05-2017 take 1 tablet by ronni th once daily MELOXICAM 7.5 MG TABS One tablet by mouth daily MELOXICAM [id number] Daja Monsivais PA-C metoprolol tartrate 25 mg oral tablet (20 sources) beta-Adrenergic Luis Start: 10-05-2024 End: 11-15-2024 take 0.5 tablet by mouth twice daily metoprolol tartrate, short acting, (LOPRESSOR) 25 mg tablet Indications: Coronary artery disease of [place] artery of [place] heart with stable angina pectoris Take 0.5 tablets by mouth two times a day. 90 tablet 10/18/2024 11/15/2024 Discontinued (Clinical Decision) Start: 04-15-2021 take 1 tablet by ronni th once daily Metoprolol Tartrate 25 mg tablet Active 25 mg PO DAILY April 15, 2021 1:00am Start: 02-15-2021 End: 04-01-2024 take 1 tablet by mouth twice daily metoprolol tartrate, short acting, (LOPRESSOR) 25 mg tablet Indications: Coronary artery disease of [place] artery of [place] heart with stable angina pectoris Take 1 tablet by mouth two times a day. 180 tablet 3 04/01/2024 Active Comment on above: Take 1 tablet by ronni th twice daily. Take 1 tablet by ronni th two times a day. oxyCODONE hydrochloride 5 mg oral tablet (20 sources) Opioid Agonist Start: 8 End: 8 take 1 tablet by mouth every six hours as needed for pain Oxycodone 5 MG tablet Discontinued 5 mg PO EVERY 6 HOURS as needed for Mod-Severe Pain (4-10/10) 18 January 16, 2018 12:00am January 22, 2018 9:32pm pravastatin sodium 20 mg oral tablet (2 sources) HMG-CoA Reductase Inhibitor Start: 7 take 1 tablet by mouth once daily PRAVACHOL 20 MG TABS One tablet by mouth daily PRAVASTATIN SODIUM [id number] Daja Monsivais PA-C rivaroxaban 20 mg oral tablet (20 sources) Factor Xa Inhibitor Start: 8 End: 8 take 1 tablet by mouth twice daily at mealtime Rivaroxaban 15 MG tablet Discontinued 15 mg PO TWICE DAILY WITH MEALS January 22, 2018 9:33pm May 10, 2018 11:27am for 39 more doses. Start: 01-16-2018 End: 09-25-2018 take 1 tablet by mouth once daily Rivaroxaban 20 MG tablet Discontinued 20 mg PO DAILY January 22, 2018 9:33pm September 25, 2018 12:31pm start 02/06/18 and continue through 07/18/18 simethicone 250 mg oral capsule (2 sources) Start: 12-14-2023 End: 05-06-2024 take 1 capsule by mouth twice daily after mealtime Simethicone 250 mg capsule Discontinued 250 mg PO TWICE A DAY December 14, 2023 12:00am May 06, 2024 2:49pm administer after meals sucralfate 1000 mg oral tablet (10 sources) Aluminum Complex Start: 02-10-2023 End: 03-12-2023 take 1 tablet by mouth twice daily Sucralfate (Carafate) 1 gram tablet Discontinued 1 g PO TWICE A DAY 60 February 10, 2023 12:00am March 11, 2023 12:00am March 12, 2023 12:04am terazosin 10 mg oral capsule (20 sources) alpha-Adrenergi c Luis Start: 01-12-2017 End: 05-10-2018 take 1 capsule by mouth at bedtime Terazosin 10 MG capsule Discontinued 10 mg PO AT BEDTIME January 12, 2017 12:00am May 10, 2018 11:27am Start: 01-05-2017 take 1 tablet by ronni th once daily TERAZOSIN HCL 5 MG CAPS One tablet by mouth daily TERAZOSIN HCL [id number] Daja Monsivais PA-C traMADol hydrochloride 50 mg oral tablet (14 sources) Opioid Agonist Start: 08-18-2023 End: 04-09-2024 take 1 tablet by mouth every six hours as needed for pain Tramadol 50 mg tablet Discontinued 50 mg PO EVERY 6 HOURS as needed for pain August 18, 2023 12:00am April 09, 2024 1:02pm Start: 08-04-2022 End: 08-09-2022 take 1 tablet by mouth every eight hours as needed for pain traMADol (ULTRAM) 50 mg tablet Indications: Acute hip pain, left Take 1 tablet by mouth every 8 hours as needed for pain for up to 5 days. 15 tablet 0 08/04/2022 08/09/2022 Active Comment on above: Take 1 tablet by ronni th every 8 hours as needed for pain for up to 5 days. Take 50 mg by mouth every 8 hours as needed for pain. Problems Active Problems Problem Classification Problem Date Documented Da te Episodic/Chronic Abdominal pain (3 sources) Right lower quadrant pain; Translations: [Right lower quadrant pain] Episodic Anxiety disorders (20 sources) Anxiety disorder; Translations: [Anxiety] Onset: 0 01-05-2017 Chronic Biliary tract disease (8 sources) Acute cholecystitis due to biliary calculus; Translations: [Calculus of gallbladder with acute cholecystitis without obstruction] 08-18-2023 Episodic Blindness and vision defects (1 source) Diplopia; Translations: [Diplopia] Episodic Cardiac dysrhythmias (8 sources) Bradyarrhythmia; Translations: [Other specified cardiac arrhythmias] Onset: 5 10-18-2024 Chronic Cardiac dysrhythmias (20 sources) Palpitations; Translations: [Palpitations] Onset: 5 10-23-2021 Episodic Chronic kidney disease (20 sources) Chronic kidney disease stage 3A ; Translations: [Stage 3a chronic kidney disease] Onset: 3 05-19-2023 Chronic Chronic kidney disease (1 source) Chronic kidney disease; Translations: [Stage 3a chronic kidney disease (HCC)] Onset: 3 Coagulation and hemorrhagic disorders (20 sources) Platelet count below reference range; Translations: [Thrombocytopenia, unspecified] Onset: 3 Chronic Conditions associated with dizziness or vertigo (20 sources) Peripheral vertigo; Translations: [Other peripheral vertigo, unspecified ear] Onset: 5 12-15-2020 Episodic Congestive heart failure; nonhypertensive (20 sources) Diastolic heart failure; Translations: [Unspecified diastolic (congestive) heart failure] 10-12-2018 Chronic Comment on above: RVSP 18 mmHg Coronary atherosclerosis and other heart disease (20 sources) Coronary atherosclerosis; Translations: [Atherosclerotic heart disease of [place] coronary artery with other forms of angina pectoris] Onset: 1 08-24-2020 Chronic Disorders of lipid metabolism (20 sources) Hyperlipidemia; Translations: [Hyperlipidemia, unspecified] Onset: 5 01-05-2017 Chronic E Codes: Fall (20 sources) Fall; Translations: [Unspecified fall, initial encounter] Episodic Essential hypertension (20 sources) Hypertensive disorder; Translations: [Essential (primary) hypertension] Onset: 9 01-05-2017 Chronic Fever of unknown origin (20 sources) Fever; Translations: [Fever, unspecified] Episodic Fluid and electrolyte disorders (20 sources) Mild dehydration; Translations: [Dehydration] 11-22-2021 Episodic Fracture of neck of femur (hip) (20 sources) Closed fracture of hip; Translations: [Fracture of unspecified part of neck of right femur, initial encounter for closed fracture] 10-12-2018 Episodic Gastrointestinal hemorrhage (11 sources) Gastrointestinal hemorrhage; Translations: [Gastrointestinal hemorrhage, unspecified] 01-25-2023 Episodic Hyperplasia of prostate (20 sources) Benign prostatic hypertrophy with outflow obstruction; Translations: [Benign prostatic hyperplasia with lower urinary tract symptoms] Onset: 0 01-30-2018 Chronic Immunizations and screening for infectious disease (15 sources) Patient encounter status; Translations: [Encounter for immunization] Episodic Malaise and fatigue (6 sources) Asthenia; Translations: [Weakness] 08-20-2023 Episodic Mood disorders (20 sources) Depressive disorder; Translations: [Depression] 12-01-2021 Chronic Mycoses (11 sources) Onychomycosis; Translations: [Tinea unguium] Onset: 5 Episodic Nausea and vomiting (2 sources) Nausea; Translations: [Nausea] Onset: 5 11-15-2024 Episodic Nutritional deficiencies (20 sources) Vitamin D deficiency; Translations: [Vitamin D deficiency, unspecified] Chronic Occlusion or stenosis of precerebral arteries (20 sources) Left carotid artery stenosis; Translations: [Occlusion and stenosis of left carotid artery] Chronic Osteoarthritis (20 sources) Osteoarthritis; Translations: [Osteoarthritis of knee] Onset: 3 01-05-2017 Chronic Other and unspecified benign neoplasm (16 sources) Polyp of colon; Translations: [Polyp of colon] 05-10-2022 Episodic Other and unspecified benign neoplasm (4 sources) Polyp of colon; Translations: [Benign neoplasm of colon] 05-10-2022 Episodic Other circulatory disease (1 source) Orthostatic hypotension; Translations: [Orthostatic hypotension] 09-12-2024 Episodic Other connective tissue disease (20 sources) History of total knee arthroplasty; Translations: [Presence of right artificial knee joint] 07-22-2021 Chronic Other connective tissue disease (8 sources) Presence of right artificial knee joint; Translations: [Knee joint replacement] Chronic Other connective tissue disease (10 sources) Pain of toe of left foot; Translations: [Pain in left toe(s)] Episodic Other connective tissue disease (10 sources) Pain of toe of right foot; Translations: [Pain in right toe(s)] Episodic Other connective tissue disease (4 sources) Trochanteric bursitis; Translations: [Trochanteric bursitis, left hip] 06-17-2024 Episodic Other connective tissue disease (1 source) Pain in left toe(s); Translations: [Pain in toe of left foot] Onset: 5 Episodic Other connective tissue disease (1 source) Pain in right toe(s); Translations: [Pain in toe of right foot] Onset: 5 Episodic Other diseases of kidney and ureters (20 sources) Renal mass; Translations: [Other specified disorders of kidney and ureter] Onset: 2 Chronic Other diseases of kidney and ureters (5 sources) Other specified disorders of kidney and ureter; Translations: [Unspecified disorder of kidney and ureter] Chronic Other diseases of kidney and ureters (17 sources) Abnormal renal function; Translations: [Disorder of kidney and ureter, unspecified] 05-04-2022 Episodic Other diseases of kidney and ureters (5 sources) Disorder of kidney and ureter, unspecified; Translations: [Unspecified disorder of kidney and ureter] Episodic Other disorders of stomach and duodenum (9 sources) Pyloric stenosis; Translations: [Adult hypertrophic pyloric stenosis] 03-01-2023 Episodic Other disorders of stomach and duodenum (3 sources) Adult hypertrophic pyloric stenosis; Translations: [Acquired hypertrophic pyloric stenosis] 04-19-2023 Episodic Other ear and sense organ disorders (1 source) Bilateral hearing loss; Translations: [Unspecified hearing loss, bilateral] 11-09-2023 Chronic Other gastrointestinal disorders (20 sources) Irritable bowel syndrome with diarrhea; Translations: [Irritable bowel syndrome with diarrhea] Onset: 6 10-22-2015 Chronic Other gastrointestinal disorders (11 sources) Alteration in bowel elimination; Translations: [Change in bowel habit] Episodic Other gastrointestinal disorders (20 sources) Diarrhea; Translations: [Diarrhea, unspecified] 08-21-2021 Episodic Other gastrointestinal disorders (4 sources) Change in bowel habit; Translations: [Other symptoms involving digestive system] Episodic Other gastrointestinal disorders (20 sources) Diarrhea, unspecified; Translations: [Diarrhea] Episodic Other gastrointestinal disorders (16 sources) Altered bowel function; Translations: [Change in bowel habit] 10-12-2018 Episodic Other gastrointestinal disorders (8 sources) Dysphagia; Translations: [Dysphagia, unspecified] 04-19-2023 Episodic Comment on above: AT TIMES Other gastrointestinal disorders (4 sources) Constipation; Translations: [Constipation, unspecified] 08-20-2023 Episodic Other gastrointestinal disorders (2 sources) Constipation, unspecified; Translations: [Constipation, unspecified] 08-21-2023 Episodic Other hematologic conditions (20 sources) Erythrocytosis; Translations: [Secondary polycythemia] 10-12-2018 Episodic Other hereditary and degenerative nervous system conditions (20 sources) Impaired cognition; Translations: [Mild cognitive impairment, so stated] 02-15-2022 Chronic Other hereditary and degenerative nervous system conditions (4 sources) Mild cognitive impairment, so stated; Translations: [Mild cognitive impairment, so stated] Chronic Other lower respiratory disease (20 sources) Hemoptysis; Translations: [Hemoptysis] 03-12-2019 Episodic Other lower respiratory disease (16 sources) Hypoxia; Translations: [Hypoxemia] 05-01-2022 Episodic Other lower respiratory disease (6 sources) Hypoxemia; Translations: [Hypoxemia] 05-01-2022 Episodic Other nervous system disorders (20 sources) Idiopathic peripheral neuropathy; Translations: [Hereditary and idiopathic neuropathy, unspecified] Onset: 7 10-20-2016 Chronic Other nervous system disorders (2 sources) Expressive dysphasia; Translations: [Aphasia] Chronic Other nervous system disorders (3 sources) Aphasia; Translations: [Aphasia] Chronic Other nervous system disorders (20 sources) Polyneuropathy; Translations: [Polyneuropathy, unspecified] 02-15-2022 Chronic Other nervous system disorders (4 sources) Polyneuropathy, unspecified; Translations: [Unspecified hereditary and idiopathic peripheral neuropathy] Chronic Other nervous system disorders (20 sources) Abnormal gait; Translations: [Unsteadiness on feet] Onset: 1 Resolved: 4 02-15-2021 Episodic Other nervous system disorders (2 sources) Finding of hand region; Translations: [Tremor, unspecified] Episodic Other non-traumatic joint disorders (20 sources) Effusion of right knee joint; Translations: [Effusion, right knee] 07-30-2021 Episodic Other non-traumatic joint disorders (4 sources) Effusion, right knee; Translations: [Effusion of joint, lower leg] Episodic Other non-traumatic joint disorders (1 source) Hip pain; Translations: [Pain in left hip] Episodic Other screening for suspected conditions (not mental disorders or infectious disease) (2 sources) Abnormal findings on diagnostic imaging of other specified body structures; Translations: [Nonspecific (abnormal) findings on radiological and other examination of other intrathoracic organs] Onset: 5 09-12-2024 Chronic Other skin disorders (3 sources) Foot callus; Translations: [Corns and callosities] 06-14-2024 Episodic Other skin disorders (1 source) Corns and callosities; Translations: [Callus of foot] Onset: 5 Episodic Other upper respiratory disease (20 sources) Vasomotor rhinitis; Translations: [Vasomotor rhinitis] Onset: 3 Chronic Parkinson`s disease (20 sources) Parkinson's disease; Translations: [Parkinson's disease] Onset: 2 Chronic Parkinson`s disease (2 sources) Parkinson`s disease; Translations: [Parkinson's disease without dyskinesia, without mention of fluctuations] Onset: 2 Pulmonary heart disease (20 sources) Pulmonary embolism; Translations: [Other pulmonary embolism without acute cor pulmonale] 12-01-2021 Episodic Residual codes; unclassified (2 sources) Family history of Parkinson's disease; Translations: [Family history of epilepsy and other diseases of the nervous system] Episodic Residual codes; unclassified (3 sources) Insomnia; Translations: [Insomnia, unspecified] Episodic Residual codes; unclassified (1 source) Acquired absence of other specified parts of digestive tract; Translations: [Other postprocedural status] 09-01-2023 Episodic Respiratory failure; insufficiency; arrest (adult) (20 sources) Acute respiratory failure; Translations: [Acute respiratory failure with hypoxia] Episodic Screening and history of mental health and substance abuse codes (1 source) Ex-cigarette smoker; Translations: [Personal history of nicotine dependence] Episodic Spondylosis; intervertebral disc disorders; other back problems (4 sources) Lumbar spondylosis; Translations: [Spondylosis without myelopathy or radiculopathy, lumbar region] 06-17-2024 Chronic Superficial injury; contusion (20 sources) Traumatic blister of lower leg; Translations: [Blister (nonthermal), unspecified lower leg, initial encounter] Episodic Syncope (4 sources) Near syncope; Translations: [Syncope and collapse] Onset: 5 09-10-2024 Episodic Thyroid disorders (20 sources) Subclinical hyperthyroidism; Translations: [Thyrotoxicosis, unspecified without thyrotoxic crisis or storm] Onset: 0 Resolved: 2 07-23-2012 Chronic Transient cerebral ischemia (20 sources) Transient cerebral ischemia; Translations: [Transient cerebral ischemic attack, unspecified] Chronic Unclassified (1 source) Low back pain, unspecified; Translations: [Low back pain, unspecified] Onset: 5 Past or Other Problems Problem Classification Problem Date Documented Da te Episodic/Chronic Allergic reactions (20 sources) Solar degeneration; Translations: [Other skin changes due to chronic exposure to nonionizing radiation] Onset: 09-05-2010 Resolved: 07-26-2012 07-26-2012 Episodic Cancer of kidney and renal pelvis (20 sources) Clear cell carcinoma of kidney; Translations: [Malignant neoplasm of left kidney, except renal pelvis] Onset: 05-05-2022 Resolved: 05-17-2024 Chronic Cancer of kidney and renal pelvis (17 sources) History of malignant neoplasm of retroperitoneum; Translations: [Personal history of other malignant neoplasm of kidney] Onset: 05-17-2024 05-17-2024 Episodic Complications of surgical procedures or medical care (20 sources) Postoperative ileus; Translations: [Other postprocedural complications and disorders of digestive system] Onset: 01-09-2015 Resolved: 07-22-2015 07-22-2015 Episodic Genitourinary symptoms and ill-defined conditions (20 sources) Acute retention of urine ; Translations: [Other retention of urine] Onset: 01-30-2018 Resolved: 09-13-2018 04-23-2021 Episodic Intestinal infection (20 sources) Clostridium difficile diarrhea; Translations: [Enterocolitis due to Clostridium difficile, not specified as recurrent] Onset: 05-25-2015 Resolved: 10-22-2015 Episodic Melanomas of skin (20 sources) Melanoma in situ of face; Translations: [Melanoma in situ of unspecified part of face] Onset: 07-04-2019 Resolved: 10-18-2024 07-04-2019 Chronic Noninfectious gastroenteritis (20 sources) Chronic diarrhea; Translations: [Noninfective gastroenteritis and colitis, unspecified] Onset: 11-17-2021 Resolved: 05-17-2024 Episodic Nonspecific chest pain (20 sources) Chest pain; Translations: [Other chest pain] Onset: 08-10-2020 Resolved: 09-14-2020 09-14-2020 Episodic Other and unspecified benign neoplasm (4 sources) History of polyp of colon; Translations: [Polyp of colon] Onset: 01-05-2017 01-09-2017 Episodic Other gastrointestinal disorders (20 sources) Passing flatus; Translations: [Flatulence] Onset: 04-21-2016 Resolved: 03-16-2017 03-16-2017 Episodic Other gastrointestinal disorders (1 source) Functional diarrhea; Translations: [Functional diarrhea] Onset: 04-30-2024 Episodic Other hematologic conditions (20 sources) Secondary polycythemia; Translations: [Secondary polycythemia] Onset: 01-24-2013 01-30-2018 Episodic Other lower respiratory disease (20 sources) Multiple nodules of lung; Translations: [Other nonspecific abnormal finding of lung field] Onset: 02-26-2020 Resolved: 05-17-2024 02-26-2020 Episodic Other lower respiratory disease (20 sources) Dyspnea on exertion; Translations: [Other forms of dyspnea] Onset: 10-19-2017 Resolved: 09-13-2018 09-13-2018 Episodic Other nervous system disorders (20 sources) Tremor; Translations: [Tremor, unspecified] Onset: 07-10-2021 Resolved: 11-17-2021 07-10-2021 Episodic Other nervous system disorders (2 sources) Unspecified abnormalities of gait and mobility; Translations: [Unspecified abnormalities of gait and mobility] Onset: 05-13-2024 Episodic Other non-traumatic joint disorders (1 source) Pain in left hip; Translations: [Pain in left hip] Onset: 06-17-2024 Episodic Other nutritional; endocrine; and metabolic disorders (20 sources) Obesity; Translations: [Obesity, unspecified] Onset: 06-19-2009 Resolved: 11-17-2021 01-09-2015 Chronic Other nutritional; endocrine; and metabolic disorders (20 sources) Obese class I; Translations: [Obesity, unspecified] Onset: 10-19-2017 Resolved: 11-04-2022 10-19-2017 Chronic Other nutritional; endocrine; and metabolic disorders (20 sources) Abnormal weight loss; Translations: [Abnormal weight loss] Onset: 11-17-2021 Resolved: 08-04-2022 Episodic Other screening for suspected conditions (not mental disorders or infectious disease) (20 sources) Raised prostate specific antigen; Translations: [Elevated prostate specific antigen [PSA]] Onset: 04-22-2016 Resolved: 05-17-2024 04-22-2016 Episodic Other skin disorders (20 sources) Seborrheic keratosis; Translations: [Other seborrheic keratosis] Onset: 09-05-2010 Resolved: 07-26-2012 07-26-2012 Episodic Other skin disorders (20 sources) Solar lentigo; Translations: [Other melanin hyperpigmentation] Onset: 09-05-2010 Resolved: 07-26-2012 07-26-2012 Episodic Other skin disorders (20 sources) Stucco keratosis; Translations: [Other seborrheic keratosis] Onset: 09-05-2010 Resolved: 10-22-2015 10-22-2015 Episodic Pulmonary heart disease (20 sources) Pulmonary embolism; Translations: [Other pulmonary embolism with acute cor pulmonale] Onset: 01-30-2018 Resolved: 09-13-2018 09-13-2018 Chronic Residual codes; unclassified (1 source) Insomnia, unspecified; Translations: [Insomnia, unspecified type] Onset: 05-17-2024 Episodic Spondylosis; intervertebral disc disorders; other back problems (20 sources) Chronic low back pain; Translations: [Chronic midline low back pain without sciatica] Onset: 04-23-2019 Resolved: 05-17-2024 04-23-2019 Episodic Results Test Name Value Interpretation Reference Range Facility [facility] 12-20-2024 CNOV Office Visit (ERIK ) ----- ROHAN OLIVIA JR. ([id number]) 1945 M Date Time Provider Department 12/20/24 1:00 PM CHRIS PEARSON JR During your visit today, we recorded the following information about you: Pulse Respiration Blood pressure Weight 73/minute 16/minute 110/64 86.3 kg Chris Pearson Jr., MD 12/20/2024 1:55 PM Signed ESTABLISHED PATIENT VISIT CHIEF COMPLAINT: Follow Up HISTORY OF PRESENT ILLNESS: Rohan Olivia Jr. is a 79 year old male, BMI 28.09 kg/m2 with a PMH significant for and per last office visit of 08/16/24: 1. Parkinson's disease, unspecified whether dyskinesia present, unspecified whether manifestations fluctuate (HCC) - ICD9: 332.0, ICD10: G20.A1 (primary diagnosis) 2. Abnormality of gait - ICD9: 781.2, ICD10: R26.9 Overall showing improvement since we adjusted med dosing. However, somewhat difficult to assess effectiveness of Sinemet given pt took last dose 4 hours prior to evaluation. That said, do feel room for further improvement and patient agrees. He is continuing in therapy as above. Will increase Sinemet 25/100mg to CARBIDOPA-LEVODOPA 25/100mg Increase to 2 tablets at 8AM, Noon and 4PM. In addition, to avoid significant drops in dopamine levels and thus, off effect, will increase Sinemet CR 50/200mg dosing so that pt now takes twice daily. CARBIDOPA-LEVODOPA CR 50/200mg Take 1 tablet at 8AM (with short acting Carbidopa-Levodopa) and 1 tablet 9PM. Pt reports doing decent. Does not note any side effects. States he has been on a heart monitor due to a variable heart rate with bradycardia as low as 36 beats per minute. Known history of bradycardia but now having episodes of dizziness. Note dizziness present about 3-4 times per day. Did not have noticeable improvement since increase in Sinemet dosing. feels where he has improved has been going to the Parkinson therapy classes. No falls. Last dose of meds again over 4 hours before time of appointment. Note review of meds indicates Dr. Galvan did stop Lopressor. Thyroid levels normal in 05/2024. States only limits on daily basis is ability to work in the yard such as trimming trees and pulling weeds. Denies an on-off effect. Has noticed freezing at times. Sitting 110/66 with HR of 72 Standing 117/64 with HR of 74 REVIEW OF SYSTEMS GENERAL:No weight loss, malaise or fevers. HEENT:Negative for frequent or significant headaches, No changes in hearing or vision, no nose bleeds or other nasal problems NECK:Negative for lumps, goiter, pain and significant neck swelling RESPIRATORY: Negative for cough, wheezing or shortness of breath. CARDIOVASCULAR: See HPI. GASTROINTESTINAL: Negative for abdominal discomfort, blood in stools or black stools or change in bowel habits GENITOURINARY: No history of dysuria, frequency or incontinence MUSCULOSKELETAL: Negative for joint pain or swelling, back pain or muscle pain. NEUROLOGIC:Negative for focal numbness or weakness, headaches and dizziness or syncope, vision changes, speech/languag changes - EXCEPT that as per HPI above. SKIN:Negative for lesions, rash, and itching. LAB/IMAGING: Those performed since patient's last visit have been reviewed. WBC (k/uL) Date Value 05/18/2024 6.26 RBC (m/uL) Date Value 05/18/2024 5.26 Hemoglobin (g/dL) Date Value 05/18/2024 16.4 Hematocrit (%) Date Value 05/18/2024 49.4 MCV (fL) Date Value 05/18/2024 93.9 MCH (pg) Date Value 05/18/2024 31.2 MCHC (g/dL) Date Value 05/18/2024 33.2 RDW-CV (%) Date Value 05/18/2024 14.0 Platelet Count (k/uL) Date Value 05/18/2024 92 (L) MPV (fL) Date Value 05/18/2024 12.1 Glucose (mg/dL) Date Value 09/27/2024 91 BUN (mg/dL) Date Value 09/27/2024 16 Creatinine (mg/dL) Date Value 09/27/2024 1.23 (H) Sodium (mmol/L) Date Value 09/27/2024 142 Potassium (mmol/L) Date Value 09/27/2024 4.7 Chloride (mmol/L) Date Value 09/27/2024 107 CO2 (mmol/L) Date Value 09/27/2024 26 Protein, Total (g/dL) Date Value 05/18/2024 6.6 Albumin (g/dL) Date Value 05/18/2024 4.1 Calcium, Total (mg/dL) Date Value 09/27/2024 9.1 Alkaline Phosphatase (U/L) Date Value 05/18/2024 105 Bilirubin, Total (mg/dL) Date Value 05/18/2024 1.0 AST (U/L) Date Value 05/18/2024 16 ALT (U/L) Date Value 05/18/2024 6 (L) Hep C Antibody IA (no units) Date Value 10/03/2014 Negative MEDICATIONS: PARoxetine (PAXIL) 20 mg tablet Take 1 tablet by mouth once daily. carbidopa-levodopa CR (SINEMET CR) 50-200 mg per tablet Take 1 tab at 8AM and 1 tab at 9PM nightly. carbidopa-levodopa (SINEMET) 25-100 mg per tablet Take 2 tablets at 8AM, Noon and 4PM. methIMAzole (TAPAZOLE) 5 mg tablet Take 1 tablet by mouth once daily. potassium chloride SR (MICRO-K) 10 mEq CR capsule Take 1 capsule by mouth two times a day. aspirin 81 (more content not included)... Normal [facility]OVon 12-13-2024 CNOV Office Visit (PODIWS ) ----- ROHAN OLIVIA JR. ([id number]) 1945 M Date Time Provider Department 12/13/24 3:20 PM DEBRA CASTREJON PODIWS During your visit today, we recorded the following information about you: Susana Gonsalez LPN 12/14/2024 11:16 AM Signed AMB ROOMING INTAKE FLOWSHEET DATA Pain Pain Level: 3 Pain Location: Foot-Right Description: Sore Duration Amount of Time: 1 Duration Units: Months Frequency: Intermittent Intervention/Comfort measure: Relaxation, Reposition Patient presents with: Left Foot - Established Patient, Follow Up, nail care Right Foot - Established Patient, Follow Up, nail care, Callous VALENTE Rutledge Matthew 12/14/2024 11:16 AM Signed Subjective: Patient presents to clinic c/o painful toenails. They state that the nails are especially painful with shoe gear and pressure. Patient states that nails 1-5 b/l are painful. Patient complains of callus to feet. No other pedal complaints at this time. Patient states no change in medications or medical history since last visit. Objective: Patient presents to clinic ambulating in [facility] Vasc: DP and PT pulses are palpable bilateral. CFT is less than 5 seconds bilateral. Skin temperature is warm to cool proximal to distal bilateral. There is mild edema or varicosities noted. Neuro: Protective sensation is intact to the foot and toes when tested with the 5.07 SWM bilateral. Vibratory sensation is decreased at the hallux IPJ bilateral. The hallux is downgoing bilateral. Derm: Nails 1-5 b/l are painful, discolored-yellow, thick, crumbly, dystrophic and with subungal debris. Skin is of normal turgor, texture and hair growth is present bilateral. There are callus to right 5th metatarsal head Ortho: Muscle strength is 5/5 for all pedal groups tested. Ankle joint DF is decreased with the knee extended with no pain or crepitus noted. 1st MPJ ROM is decreased bilateral. Assessment: (B35.1) Onychomycosis (primary encounter diagnosis) (M79.675) Pain in toe of left foot (M79.674) Pain in toe of right foot (L84) Callus of foot Plan: Patient was seen and evaluated. Nails 1-5 bilateral were debrided in length and thickness. Callus was reduced to right foot with 15 blade and dremmel Continue with offloading pad for callus Patient is to RTC in 3-4 months. Debra Castrejon DPM Referring Provider: DEBRA CASTREJON [[id number]] Allergies As of Date: 12/13/2024 (No Known Allergies) Date Reviewed: 12/13/2024 Reviewed by: Susana Gonsalez LPN - Fully Assessed Reason for Visit: Established Patient [175] Follow Up [171] nail care [Other] Established Patient [175] Follow Up [171] nail care [Other] Callous [1028] Primary Visit Diagnosis:Onychomycosis [B35.1] Other Visit Diagnoses:Pain in toe of left foot [M79.675] Pain in toe of right foot [M79.674] Callus of foot [L84] Prescriptions as of 12/14/2024 - PARoxetine (PAXIL) 20 mg tablet Take 1 tablet by mouth once daily. - carbidopa-levodopa CR (SINEMET CR) 50-200 mg per tablet Take 1 tab at 8AM and 1 tab at 9PM nightly. - carbidopa-levodopa (SINEMET) 25-100 mg per tablet Take 2 tablets at 8AM, Noon and 4PM. - methIMAzole (TAPAZOLE) 5 mg tablet Take 1 tablet by mouth once daily. - LORazepam (ATIVAN) 1 mg tablet Take 1 tablet by mouth at bedtime as needed for anxiety for up to 90 days. - potassium chloride SR (MICRO-K) 10 mEq CR capsule Take 1 capsule by mouth two times a day. - aspirin 81 mg cap Take 81 mg by mouth once daily. - pantoprazole DR (PROTONIX) 40 mg tablet Take 40 mg by mouth once daily. - cholestyramine/aspartame (CHOLESTYRAMINE LIGHT ORAL) Take by mouth once daily. - isosorbide mononitrate ER (IMDUR) 30 mg 24 hr tablet Take 1 tablet by mouth once daily. - atorvastatin (LIPITOR) 20 mg tablet Take 1 tablet by mouth daily at bedtime. For cholesterol. - ketoconazole (NIZORAL) 2 % shampoo Apply to affected area two times a week. Per [facility] PRN - tamsulosin (FLOMAX) 0.4 mg Take 0.4 mg by mouth once daily. Problem List As Of Date 12/13/2024 Noted Resolved Hypertension [I10] 05/04/2009 Anxiety [F41.9] 06/19/2009 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 Obesity [E66.9] 06/19/2009 11/17/2021 Subclinical hyperthyroidism [E05.90] 08/26/2009 06/16/2011 Seborrheic Keratoses [L82.1] 09/05/2010 07/26/2012 Actinic Damage///Sun-damaged skin [L57.8] 09/05/2010 07/26/2012 Solar lentigines [L81.4] 09/05/2010 07/26/2012 Stucco keratosis [L82.1] 09/05/2010 10/22/2015 Thyrotoxicosis without thyroid storm [E05.90] 06/19/2009 OA (osteoarthritis) of knee [M17.9] 01/24/2013 Acquired polycythemia [D75.1] 01/24/2013 Hyperlipidemia LDL goal <100 [E78.5] 10/09/2014 Ileus, postoperative (HCC) [K91.89, K56.7] 01/09/2015 07/22/2015 Enterocolitis due to Clostridium difficile [A04*05/25/2015 10/22/2015 Irr (more content not included)... Normal [facility] 11-18-2024 CNPN Telephone (JAYA) ----- ROHAN OLIVIA JR. ([id number]) 1945 M Date Time Provider Department 11/18/24 BRANDON CANTOR During your visit today, we recorded the following information about you: Lynette Robles LPN 11/18/2024 11:34 AM Signed Patient called into office speaking with PSS about getting a appointment sooner with Cardiology. He stated that you recommended a sooner appointment than Novemeber with . Please review and advise further VALENTE Ansari Victor H, MD 11/20/2024 1:16 PM Signed I have reached out to Dr. Mortensen about Mr. Olivia. Please assist scheduling cardiology follow up soon (I.e. 1-2 months) Marie Charles MA 11/25/2024 4:[address] Mortensen put in EP referral. He would like him to see them first. BONIFACIO Jansen, Chandler R 11/26/2024 4:22 PM Signed Patient scheduled Thanks Chandler Ware Allergies As of Date: 11/18/2024 (No Known Allergies) Date Reviewed: 11/15/2024 Reviewed by: Crystal Mason LPN - Fully Assessed Reason for Visit: Appointment [186] Orders [681] Prescriptions as of 11/26/2024 - PARoxetine (PAXIL) 20 mg tablet Take 1 tablet by mouth once daily. - carbidopa-levodopa CR (SINEMET CR) 50-200 mg per tablet Take 1 tab at 8AM and 1 tab at 9PM nightly. - carbidopa-levodopa (SINEMET) 25-100 mg per tablet Take 2 tablets at 8AM, Noon and 4PM. - methIMAzole (TAPAZOLE) 5 mg tablet Take 1 tablet by mouth once daily. - LORazepam (ATIVAN) 1 mg tablet Take 1 tablet by mouth at bedtime as needed for anxiety for up to 90 days. - potassium chloride SR (MICRO-K) 10 mEq CR capsule Take 1 capsule by mouth two times a day. - aspirin 81 mg cap Take 81 mg by mouth once daily. - pantoprazole DR (PROTONIX) 40 mg tablet Take 40 mg by mouth once daily. - cholestyramine/aspartame (CHOLESTYRAMINE LIGHT ORAL) Take by mouth once daily. - isosorbide mononitrate ER (IMDUR) 30 mg 24 hr tablet Take 1 tablet by mouth once daily. - atorvastatin (LIPITOR) 20 mg tablet Take 1 tablet by mouth daily at bedtime. For cholesterol. - ketoconazole (NIZORAL) 2 % shampoo Apply to affected area two times a week. Per [facility] PRN - tamsulosin (FLOMAX) 0.4 mg Take 0.4 mg by mouth once daily. Problem List As Of Date 11/18/2024 Noted Resolved Hypertension [I10] 05/04/2009 Anxiety [F41.9] 06/19/2009 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 Obesity [E66.9] 06/19/2009 11/17/2021 Subclinical hyperthyroidism [E05.90] 08/26/2009 06/16/2011 Seborrheic Keratoses [L82.1] 09/05/2010 07/26/2012 Actinic Damage///Sun-damaged skin [L57.8] 09/05/2010 07/26/2012 Solar lentigines [L81.4] 09/05/2010 07/26/2012 Stucco keratosis [L82.1] 09/05/2010 10/22/2015 Thyrotoxicosis without thyroid storm [E05.90] 06/19/2009 OA (osteoarthritis) of knee [M17.9] 01/24/2013 Acquired polycythemia [D75.1] 01/24/2013 Hyperlipidemia LDL goal <100 [E78.5] 10/09/2014 Ileus, postoperative (HCC) [K91.89, K56.7] 01/09/2015 07/22/2015 Enterocolitis due to Clostridium difficile [A04*05/25/2015 10/22/2015 Irritable bowel syndrome with diarrhea [K58.0] 10/22/2015 Flatulence [R14.3] 04/21/2016 03/16/2017 Elevated prostate specific antigen (PSA) [R97.2*04/22/2016 05/17/2024 Idiopathic peripheral neuropathy [G60.9] 10/20/2016 Dyspnea on exertion [R06.09] 10/19/2017 09/13/2018 Obesity, Class I, BMI 30-34.9 [E66.811] 10/19/2017 11/04/2022 Other pulmonary embolism with acute cor pulmona*01/30/2018 09/13/2018 Pulmonary hypertension (HCC) [I27.20] 01/30/2018 09/13/2018 Gross hematuria [R31.0] 01/30/2018 09/13/2018 Chronic midline low back pain without sciatica *04/23/2019 05/17/2024 Cervicalgia [M54.2] 04/23/2019 05/17/2024 Melanoma in situ of unspecified part of face (H*07/04/2019 10/18/[address] nodules on CT [R91.8] 02/26/2020 05/17/2024 Other chest pain [R07.89] 08/10/2020 09/14/2020 Coronary artery disease of [place] artery of [place]*08/24/2020 Unsteady gait [R26.81] 02/15/2021 05/17/2024 Tremors of nervous system [R25.1] 07/10/2021 11/17/2021 Chronic diarrhea [K52.9] 11/17/2021 05/17/2024 Abnormal weight loss [R63.4] 11/17/2021 08/04/2022 Parkinson's disease (HCC) [G20.A1] 11/17/2021 Renal cell cancer, 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 ([id number]) 1945 M Date Time Provider Department 11/15/24 11:40 AM BRANDON CANTOR INTMWS During your visit today, we recorded the following information about you: Temperature Pulse Respiration Blood pressure 98.5 degrees 56/minute 16/minute 100/46 Weight 86.3 kg Brandon Cantor MD 11/15/2024 1:41 PM Signed This note was created using NoteWriter. Subjective Patient presents with: 6 Month Exam Rohan Olivia Jr. is a 79 year old male. Recording using ambient Zuki software for draft documentation of the visit was discussed with the patient/authorized electronics parts sales representative; all questions welcomed and answered. Patient/authorized electronics parts sales representative agreed to proceed Bradycardia: - Heart rate today is 51 bpm; previously recorded as low as 36 bpm. - Recent Holter monitor placement; metoprolol dosage was reduced by half following results. - Scheduled to see cassandra architect Dr. Mortensen on April 28. - Inquires about the possibility of needing a pacemaker. Dizziness: - Intermittent dizziness since Holter monitor placement approximately 3 weeks ago. - Noted dizziness upon waking this morning. Nausea: - Nausea onset today, described as an upset stomach. - Denies emesis or diarrhea. - Denies recent episodes of nausea, stating it is not a frequent occurrence. - Denies recent illness, including cold, fever, or flu. Arthralgia: - Chronic arthralgia, no new or worsening pain reported today. Anxiety: - Controlled. Paroxetine due for refill. 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 Pectoris Parkinson's Disease (Hcc) Vasomotor Rhinitis Platelets Decreased Stage 3a Chronic Kidney Disease (Hcc) History of Renal Cell Cancer Social History Tobacco Use Smoking status: Former Current packs/day: 0.00 Average packs/day: 2.0 packs/day for 35.0 years (70.0 ttl pk-yrs) Types: Cigarettes Start date: 1964 Quit date: 07/05/1998 Years since quittin.3 Smokeless tobacco: Never Vaping Use Vaping status: Never Used Substance Use Topics Alcohol use: No Drug use: No Current Outpatient Medications Medication Sig metoprolol tartrate, short acting, (LOPRESSOR) 25 mg tablet Take 0.5 tablets by mouth two times a day. carbidopa-levodopa CR (SINEMET CR) 50-200 mg per tablet Take 1 tab at 8AM and 1 tab at 9PM nightly. carbidopa-levodopa (SINEMET) 25-100 mg per tablet Take 2 tablets at 8AM, Noon and 4PM. methIMAzole (TAPAZOLE) 5 mg tablet Take 1 tablet by mouth once daily. LORazepam (ATIVAN) 1 mg tablet Take 1 tablet by mouth at bedtime as needed for anxiety for up to 90 days. potassium chloride SR (MICRO-K) 10 mEq CR capsule Take 1 capsule by mouth two times a day. aspirin 81 mg cap Take 81 mg by mouth once daily. pantoprazole DR (PROTONIX) 40 mg tablet Take 40 mg by mouth once daily. cholestyramine/aspartame (CHOLESTYRAMINE LIGHT ORAL) Take by mouth once daily. isosorbide mononitrate ER (IMDUR) 30 mg 24 hr tablet Take 1 tablet by mouth once daily. atorvastatin (LIPITOR) 20 mg tablet Take 1 tablet by mouth daily at bedtime. For cholesterol. PARoxetine (PAXIL) 20 mg tablet Take 1 tablet by mouth once daily. ketoconazole (NIZORAL) 2 % shampoo Apply to affected area two times a week. Per [facility]. PRN tamsulosin (FLOMAX) 0.4 mg Take 0.4 mg by mouth once daily. No current facility-administered medications for this visit. Objective BP (!) 100/46 (BP Site: Right Arm, BP Position: Sitting, BP Cuff Size: Large Adult) Pulse (!) 56 Temp 36.9 ?C (98.5 ?F) Resp 16 Wt 86.3 kg (190 lb 4.1 oz) BMI 28.10 kg/m? Physical Exam Constitutional: General: He is not in acute distress. Appearance: He is not ill-appearing or diaphoretic. HENT: Nose: No congestion or rhinorrhea. Mouth/Throat: Mouth: Mucous membranes are moist. Cardiovascular: Rate and Rhythm: Regular rhythm. Bradycardia present. Heart sounds: No murmur heard. No gallop. Pulmonary: Breath sounds: Normal breath sounds. Musculoskeletal: Right lower leg: No edema. Left lower leg: No edema. Neurological: General: No focal deficit present. Mental Status: He is alert. Motor: Tremor and abnormal muscle tone present. Gait: Gait abnormal. Test results pertinent to today's visit were review (more content not included)... Normal [facility] CNOVon 10-18-2024 CNOV Office Visit (INTMWS ) ----- ROHAN OLIVIA JR. ([id number]) 1945 M Date Time Provider Department 10/18/24 3:00 PM BRANDON CANTOR INTMWS During your visit today, we recorded the following information about you: Pulse Blood pressure Weight Height 58/minute 122/54 86.1 kg 1.753 m Brandon Cantor MD 10/19/2024 8:58 AM Signed This note was created using ShopPad. Subjective Rohan Olivia Jr. is a 79 year old male. He was here to discuss his Zio results. Since reducing metoprolol he's had maybe 2 episodes of orthostatic lightheadedness. We reviewed Zio findings were generally benign. He had triggered the monitor around episodes of junctional rhythm. His hypertension was staying controlled. He will see cardiology in the fall. Repeat Zio is not commonly indicated. Review of Systems Constitutional: Negative for fatigue. Respiratory: Negative for shortness of breath. Cardiovascular: Negative for chest pain and palpitations. Neurological: Negative for syncope. 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 (Patient taking differently: Take 25 mg by mouth two times a day.) carbidopa-levodopa (SINEMET) 25-100 mg per tablet Take 2 tablets at 8AM, Noon and 4PM. methIMAzole (TAPAZOLE) 5 mg tablet Take 1 tablet by mouth once daily. LORazepam (ATIVAN) 1 mg tablet Take 1 tablet by mouth at bedtime as needed for anxiety for up to 90 days. potassium chloride SR (MICRO-K) 10 mEq CR capsule Take 1 capsule by mouth two times a day. aspirin 81 mg cap Take 81 mg by mouth once daily. pantoprazole DR (PROTONIX) 40 mg tablet Take 40 mg by mouth once daily. cholestyramine/aspartame (CHOLESTYRAMINE LIGHT ORAL) Take by mouth once daily. isosorbide mononitrate ER (IMDUR) 30 mg 24 hr tablet Take 1 tablet by mouth once daily. atorvastatin (LIPITOR) 20 mg tablet Take 1 tablet by mouth daily at bedtime. For cholesterol. PARoxetine (PAXIL) 20 mg tablet Take 1 tablet by mouth once daily. ketoconazole (NIZORAL) 2 % shampoo Apply to affected area two times a week. Per [facility]. PRN tamsulosin (FLOMAX) 0.4 mg Take 0.4 mg by mouth once daily. carbidopa-levodopa CR (SINEMET CR) 50-200 mg per tablet Take 1 tab at 8AM and 1 tab at 9PM nightly. (Patient not taking: Reported on 09/12/2024) No current facility-administered medications for this visit. Objective BP 142/56 Pulse (!) 58 Ht 175.3 cm (5' 9) Wt 86.1 kg (189 lb 13.1 oz) SpO2 93% BMI 28.03 kg/m? Physical Exam Constitutional: Appearance: He is not ill-appearing. Cardiovascular: Rate and Rhythm: Regular rhythm. Bradycardia present. Heart sounds: No murmur heard. No gallop. Pulmonary: Breath sounds: Normal breath sounds. Musculoskeletal: Right lower leg: No edema. Left lower leg: No edema. Neurological: General: No focal deficit present. Mental Status: He is alert. BP 122/54 (BP Site: Right Arm) Assessment and Plan 1. Near syncope - ICD9: 780.2, ICD10: R55 (primary diagnosis) Resolved. 2. Primary hypertension - ICD9: 401.9, ICD10: I10 - Controlled - Continue current medications 3. Bradyarrhythmia - ICD9: 427.89, ICD10: I49.8 Improved. 4. Coronary artery disease of [place] artery of [place] heart with stable angina pectoris - ICD9: 414.01, 413.9, ICD10: I25.118 Stable. - METOPROLOL TARTRATE 25 MG TABLET. Continue 12.5 mg BID. 5. Parkinson's disease, unspecified whether dyskinesia present, unspecified whether manifestations fluctuate (HCC) - ICD9: 332.0, ICD10: G20.A1 - We discussed dysautonomia and precautions that might help. - CARBIDOPA ER 50 MG-LEVODOPA 200 MG TABLET,EXTENDED RELEASE - We clarified his regimen. Brandon Cantor MD Allergies As of Date: 10/18/2024 (No Known Allergies) Date Reviewed: 10/18/2024 Reviewed by: Saba Palmer MA - Fully Assessed Reason for Visit: Results [95] Cmt: Discuss Zio results Primary Visit Diagnosis:Near syncope [R55] Other Visit Diagnoses:Primary hypertension [I10] Bradyarrhythmia [I49.8] Coronary artery disease of [place] artery of [place] heart with stable angina pectoris [I25.118] Parkinson's disease, unspecified whether dyskinesia present, unspecified whether manifestations fluctuate (more content not included)... Normal [facility] Basic metabolic 2000 panelon 09-27-2024 Anion gap [Moles/Vol] 9 mmol/L Normal 8-15 [facility] [place] Comment on above: Order Comment: Speci men Type: BLOOD SPECIMENOrdering Facility: [facility] Address: [address] [place] [address] Performed By: #### 2 4321-2 ####[facility] LABCLIA [id number] [place] [address] [place] Calcium [Mass/Vol] 9.1 mg/dL Normal 8.5-10.2 [facility] Comment on above: Order Comment: Speci men Type: BLOOD SPECIMENOrdering Facility: [facility] Address: [address] [place] [address] Performed By: #### 2 4321-2 ####[facility] LABCLIA [id number] [place] [address] [place] Chloride [Moles/Vol] 107 mmol/L Normal 98-107 [facility] Comment on above: Order Comment: Speci men Type: BLOOD SPECIMENOrdering Facility: [facility] Address: [address] [place], [place] [id number] Performed By: #### 2 4321-2 ####[facility] LABCLIA [id number] [place] [id number] [place] CO2 [Moles/Vol] 26 mmol/L Normal 22-30 [facility] Comment on above: Order Comment: Speci men Type: BLOOD SPECIMENOrdering Facility: [facility] Address: [address] [place] [address] Performed By: #### 2 4321-2 ####[facility] LABCLIA [id number] [place] [address] [place] Creatinine [Mass/Vol] 1.23 mg/dL High 0.73-1.22 [facility] [place] Comment on above: Order Comment: Speci men Type: BLOOD SPECIMENOrdering Facility: [facility] Address: [address] [place] [address] Performed By: #### 2 4321-2 ####[facility] LABIA [id number] [place] [address] [place] Creatinine and Glomerular filtration rate.predicted panel (S/P/Bld) 60 mL/min/1.73m??? Normal >=60 [facility] Comment on above: Order Comment: Speci men Type: BLOOD SPECIMENOrdering Facility: [facility] Address: [address] [place] [address] Result Comment: Antonina mated Glomerular Filtration Rate (eGFR) is calculated using the 2020 CKD-EPI creatinine equation. This equation utilizes serum creatinine, sex, and age as parameters. The creatinine assay has traceable calibration to isotope dilution-mass spectrometry. Refer to KDIGO guidelines for clinical interpretation. In patients with unstable renal function, e.g. those with acute kidney injury, the eGFR may not accurately reflect actual GFR. Performed By: #### 2 4321-2 ####[facility] LABCLIA [id number] [place] [id number] [place] Glucose [Mass/Vol] 91 mg/dL Normal 74-99 [facility] Comment on above: Order Comment: Speci men Type: BLOOD SPECIMENOrdering Facility: [facility] Address: [address] [place] [address] Result Comment: The [place] Diabetes Association (ADA) provides guidance for cutoff values for fasting glucose and random glucose. The ADA defines fasting as no caloric intake for at least 8 hours. Fasting plasma glucose results between 100 to 125 [...] Standards of Medical Care in Diabetes 2016, [place] Diabetes Association. Diabetes Care. 2016.39(Suppl 1). Performed By: #### 2 4321-2 ####[facility] LABCLIA [id number] [place] [address] [place] Potassium [Moles/Vol] 4.7 mmol/L Normal 3.7-5.1 [facility] [place] Comment on above: Order Comment: Speci men Type: BLOOD SPECIMENOrdering Facility: [facility] Address: [address] [place] [address] Performed By: #### 2 4321-2 ####[facility] LABCLIA [id number] [place] [id number] [place] Sodium [Moles/Vol] 142 mmol/L Normal 136-144 [facility] Comment on above: Order Comment: Speci men Type: BLOOD SPECIMENOrdering Facility: [facility] Address: [address] [place], [place] [address] Performed By: #### 2 4321-2 ####[facility] LABCLIA [id number] [place] [id number] [place] Urea nitrogen [Mass/Vol] 16 mg/dL Normal 9-24 [facility] Comment on above: Order Comment: Speci men Type: BLOOD SPECIMENOrdering Facility: [facility] Address: [address] [place] [address] Performed By: #### 2 4321-2 ####[facility] LABCLIA [id number] [place] [address] [place] XR CHEST 2V FRONTAL/LATon XR CHEST 2V FRONTAL/LAT * * *Final Repor t* * * DATE OF EXAM: Sep 27 2024 2:38PM WOX [id number] - XR CHEST 2V FRONTAL/LAT / PROCEDURE REASON: Abnormal CXR * * * * Physician Interpretation * * * * EXAMINATION: CHEST RADIOGRAPH (2 VIEW FRONTAL and LATERAL) CLINICAL HISTORY: Abnormal CXR MQ: [id number]_6 EXAM DATE/TIME: 09/27/2024 2:38 PM COMPARISON: 01/01/2020 RESULT: Lines, tubes, and devices: None. Lungs and pleura: Prominent bronchovascular markings, right base, unchanged from previous exam. No acute consolidation. No lung mass. No pleural effusion. No pneumothorax. Cardiomediastinal silhouette: Normal cardiomediastinal silhouette. Bones and soft tissues: Unremarkable. IMPRESSION: No acute radiographic abnormality. Fruit Checker: CESAR Transcribe Date/Time: Sep 27 2024 2:47P Dictated by : ALVARO FOWLER MD This examination was interpreted and the report reviewed and electronically signed by: ALVARO FOWLER MD on Sep 27 2024 2:49PM EST [id number] Normal [facility] CNPNon 09-20-2024 CNPN Telephone (INTMWS) ----- ROHAN OLIVIA JR. ([id number]) 1945 M Date Time Provider Department 09/20/24 BRANDON CANTOR INTMWS During your visit today, we recorded the following information about you: Katelin Chew RN 09/20/2024 4:42 PM Signed Patient calls and states that he currently is wearing heart monitor. Patient is currently at Dr. Phan's office for his knee. Dr. Phan is wanting to do an x ray on knee however patient is unsure he should do this because of wearing a heart monitor. Patient is asking if he can get x ray done wearing heart monitor. Patient is postponing x ray until he gets monitor off. SAADIA Forbes Victor H, MD 09/20/2024 5:30 PM Signed That is okay. He can do xray at a later time. Daja Palma RN 09/23/2024 12:51 PM Signed Pt called and is notified of providers results and instructions. Pt voices understanding. Daja Palma RN Allergies As of Date: 09/20/2024 (No Known Allergies) Date Reviewed: 09/12/2024 Reviewed by: Renea Caraballo LPN - Fully Assessed Reason for Visit: Patient Question [1477] Prescriptions as of 09/23/2024 - carbidopa-levodopa CR (SINEMET CR) 50-200 mg per tablet Take 1 tab at 8AM and 1 tab at 9PM nightly. - carbidopa-levodopa (SINEMET) 25-100 mg per tablet Take 2 tablets at 8AM, Noon and 4PM. - methIMAzole (TAPAZOLE) 5 mg tablet Take 1 tablet by mouth once daily. - LORazepam (ATIVAN) 1 mg tablet Take 1 tablet by mouth at bedtime as needed for anxiety for up to 90 days. - potassium chloride SR (MICRO-K) 10 mEq CR capsule Take 1 capsule by mouth two times a day. - aspirin 81 mg cap Take 81 mg by mouth once daily. - pantoprazole DR (PROTONIX) 40 mg tablet Take 40 mg by mouth once daily. - cholestyramine/aspartame (CHOLESTYRAMINE LIGHT ORAL) Take by mouth once daily. - isosorbide mononitrate ER (IMDUR) 30 mg 24 hr tablet Take 1 tablet by mouth once daily. - metoprolol tartrate, short acting, (LOPRESSOR) 25 mg tablet Take 1 tablet by mouth two times a day. - atorvastatin (LIPITOR) 20 mg tablet Take 1 tablet by mouth daily at bedtime. For cholesterol. - PARoxetine (PAXIL) 20 mg tablet Take 1 tablet by mouth once daily. - ketoconazole (NIZORAL) 2 % shampoo Apply to affected area two times a week. Per [facility]. PRN - tamsulosin (FLOMAX) 0.4 mg Take 0.4 mg by mouth once daily. Problem List As Of Date 09/20/2024 Noted Resolved Hypertension [I10] 05/04/2009 Anxiety [F41.9] 06/19/2009 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 Obesity [E66.9] 06/19/2009 11/17/2021 Subclinical hyperthyroidism [E05.90] 08/26/2009 06/16/2011 Seborrheic Keratoses [L82.1] 09/05/2010 07/26/2012 Actinic Damage///Sun-damaged skin [L57.8] 09/05/2010 07/26/2012 Solar lentigines [L81.4] 09/05/2010 07/26/2012 Stucco keratosis [L82.1] 09/05/2010 10/22/2015 Thyrotoxicosis without thyroid storm [E05.90] 06/19/2009 OA (osteoarthritis) of knee [M17.9] 01/24/2013 Acquired polycythemia [D75.1] 01/24/2013 Hyperlipidemia LDL goal <100 [E78.5] 10/09/2014 Ileus, postoperative (HCC) [K91.89, K56.7] 01/09/2015 07/22/2015 Enterocolitis due to Clostridium difficile [A04*05/25/2015 10/22/2015 Irritable bowel syndrome with diarrhea [K58.0] 10/22/2015 Flatulence [R14.3] 04/21/2016 03/16/2017 Elevated prostate specific antigen (PSA) [R97.2*04/22/2016 05/17/2024 Idiopathic peripheral neuropathy [G60.9] 10/20/2016 Dyspnea on exertion [R06.09] 10/19/2017 09/13/2018 Obesity, Class I, BMI 30-34.9 [E66.811] 10/19/2017 11/04/2022 Other pulmonary embolism with acute cor pulmona*01/30/2018 09/13/2018 Pulmonary hypertension (HCC) [I27.20] 01/30/2018 09/13/2018 Gross hematuria [R31.0] 01/30/2018 09/13/2018 Chronic midline low back pain without sciatica *04/23/2019 05/17/2024 Cervicalgia [M54.2] 04/23/2019 05/17/2024 Melanoma in situ of unspecified part of face (H*07/04/[address] on [address] [R91.8] 02/26/2020 05/17/2024 Other chest pain [R07.89] 08/10/2020 09/14/2020 Coronary artery disease of [place] artery of [place]*08/24/2020 Unsteady gait [R26.81] 02/15/2021 05/17/2024 Tremors of nervous system [R25.1] 07/10/2021 11/17/2021 Chronic diarrhea [K52.9] 11/17/2021 05/17/2024 Abnormal weight loss [R63.4] 11/17/2021 08/04/2022 Parkinson's disease (HCC) [G20.A1] 11/17/2021 Renal cell cancer, 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] 05/05/2022 05/17/2024 Vasomotor rhinitis [J30.0] 08/04/2022 Platelets decreased (HCC) [D69.6] 11/04/2022 Stage 3a chronic kidney disease (HCC) [N18.31] 05/19/2023 History of renal cell cancer [Z85.528] 05/17/2024 Encounter Status:Closed by KATELIN CHEW on 09/23/24 [facility] [place] 09-12-2024 CNOV Office Visit (INTMWS ) ----- CORWIN,ROHAN W JR. ([id number]) 1945 M Date Time Provider Department 09/12/24 2:20 PM BRANDON CANTOR INTMWS During your visit today, we recorded the following information about you: Temperature Pulse Blood pressure Weight 98.5 degrees 48/minute 87/49 84.8 kg Brandon Cantor MD 09/13/2024 8:50 AM Signed This note was created using Textádoriter. Subjective Patient presents with: ER F/U Rohan Olivia Jr. is a 79 year old male here with spouse. He started having more frequent episodes of dizziness, lightheadedness, and near syncope for several weeks. These were transient, and for the most part, not positional. He went to the ER 09/10/24 due to increased symptoms and a feeling of heat in the head. He was found to be orthostatic and bradycardic. Work up was notable for some increase in azotemia, bradycardia. Abnormal chest X-ray was not discussed with him and he as he had no symptoms of respiratory infection. It was recommended he reduce metoprolol and have a holter monitor. He had not yet reduced his metoprolol dose. Review of Systems Constitutional: Negative for chills and fever. HENT: Negative for congestion and sore throat. Eyes: Negative for visual disturbance. Respiratory: Negative for cough, shortness of breath and wheezing. Cardiovascular: Negative for chest pain, palpitations and leg swelling. Gastrointestinal: Negative for diarrhea, nausea and vomiting. Neurological: Negative for syncope, weakness and headaches. 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 Parkinson's Disease (Hcc) Vasomotor Rhinitis Platelets Decreased Stage 3a Chronic Kidney Disease (Hcc) History of Renal Cell Cancer Social History Tobacco Use Smoking status: Former Current packs/day: 0.00 Average packs/day: 2.0 packs/day for 35.0 years (70.0 ttl pk-yrs) Types: Cigarettes Start date: 1964 Quit date: 07/05/1998 Years since quittin.2 Smokeless tobacco: Never Vaping Use Vaping status: Never Used Substance Use Topics Alcohol use: No Drug use: No Current Outpatient Medications Medication Sig carbidopa-levodopa CR (SINEMET CR) 50-200 mg per tablet Take 1 tab at 8AM and 1 tab at 9PM nightly. carbidopa-levodopa (SINEMET) 25-100 mg per tablet Take 2 tablets at 8AM, Noon and 4PM. methIMAzole (TAPAZOLE) 5 mg tablet Take 1 tablet by mouth once daily. LORazepam (ATIVAN) 1 mg tablet Take 1 tablet by mouth at bedtime as needed for anxiety for up to 90 days. potassium chloride SR (MICRO-K) 10 mEq CR capsule Take 1 capsule by mouth two times a day. ipratropium bromide (ATROVENT) 42 mcg (0.06 %) nasal spray Use 2 Sprays in the nose as needed. aspirin 81 mg cap Take 81 mg by mouth once daily. pantoprazole DR (PROTONIX) 40 mg tablet Take 40 mg by mouth once daily. cholestyramine/aspartame (CHOLESTYRAMINE LIGHT ORAL) Take by mouth once daily. isosorbide mononitrate ER (IMDUR) 30 mg 24 hr tablet Take 1 tablet by mouth once daily. metoprolol tartrate, short acting, (LOPRESSOR) 25 mg tablet Take 1 tablet by mouth two times a day. atorvastatin (LIPITOR) 20 mg tablet Take 1 tablet by mouth daily at bedtime. For cholesterol. PARoxetine (PAXIL) 20 mg tablet Take 1 tablet by mouth once daily. ketoconazole (NIZORAL) 2 % shampoo Apply to affected area two times a week. Per [facility]. PRN tamsulosin (FLOMAX) 0.4 mg Take 0.4 mg by mouth once daily. No current facility-administered medications for this visit. Objective BP (!) 87/49 Pulse (!) 48 Temp 36.9 ?C (98.5 ?F) (Temporal) Wt 84.8 kg (186 lb 15.2 oz) BMI 27.61 kg/m? 09/12/24 1450 09/12/24 1454 09/12/24 1456 09/12/24 1457 BP: 90/53 (!) 87/49 Pulse: 60 (!) 48 Temp: 36.9 ?C (98.5 ?F) TempSrc: Temporal Weight: 84.8 kg (186 lb 15.2 oz) Orthostatic BP: 124/57 90/53 BP Position: Supine Standing Orthostatic Pulse: 45 60 Physical Exam Constitutional: General: He is not in acute distress. Appearance: He is not diaphoretic. HENT: Head: Atraumatic. Nose: No congestion or rhinorrhea. Mouth/Throat: Mouth: Mucous membranes are moist. Pharynx: Oropharynx is clear. Eyes: Conjunctiva/sclera: Conjunctivae normal. Cardiovascular: Rate and Rhythm: Regular rhythm. Bradycardia present. Heart sounds: No murmur heard. No gallop. Pulmonary: Effort: No respiratory distress. Breath sounds: No wheezing, rhonchi or rales. Abdominal: Palpations: Abdomen is soft. Tenderness: There is no abdomi (more content not included)... [facility] ROHAN OLIVIA JR. ([id number]) 1945 M Date Time Provider Department 09/12/24 1:30 PM DEBRA CASTREJON PODIWS During your visit today, we recorded the following information about you: Susana Gonsalez LPN 09/12/2024 2:17 PM Signed AMB ROOMING INTAKE FLOWSHEET DATA Pain Pain Level: 1 Pain Location: Other: See Comment (bilateral feet) Description: Sore Frequency: Intermittent Intervention/Comfort measure: Relaxation, Reposition Patient presents with: Left Foot - Established Patient, Follow Up, nail care Right Foot - Established Patient, Follow Up, nail care VALENTE Rutledge Matthew 09/12/2024 2:17 PM Signed Subjective: Patient presents to clinic c/o painful toenails. They state that the nails are especially painful with shoe gear and pressure. Patient states that nails 1-5 b/l are painful. No other pedal complaints at this time. Patient states no change in medications or medical history since last visit. Objective: Patient presents to clinic ambulating in [facility] Vasc: DP and PT pulses are palpable bilateral. CFT is less than 5 seconds bilateral. Skin temperature is warm to cool proximal to distal bilateral. There is mild edema or varicosities noted. Neuro: Protective sensation is absent to the foot and toes when tested with the 5.07 SWM bilateral. Vibratory sensation is absent at the hallux IPJ bilateral. The hallux is downgoing bilateral. Derm: Nails 1-5 b/l are discolored-yellow, thick, crumbly, dystrophic and with subungal debris. Skin is of normal turgor, texture and hair growth is decreased bilateral. There are callus to right 5th metatarsal. No ulceration Ortho: Muscle strength is 5/5 for all pedal groups tested. Ankle joint DF is decreased with the knee extended with no pain or crepitus noted. 1st MPJ ROM is decreased bilateral. Assessment: (B35.1) Onychomycosis (primary encounter diagnosis) (M79.675) Pain in toe of left foot (M79.674) Pain in toe of right foot (L84) Callus of foot Plan: Patient was seen and evaluated. Nails 1-5 bilateral were debrided in length and thickness. Callus reduced to right 5th metatarsal with dremmel Patient is to RTC in 3-4 months. Debra Castrejon DPM Referring Provider: DEBRA CASTREJON [[id number]] Allergies As of Date: 09/12/2024 (No Known Allergies) Date Reviewed: 09/12/2024 Reviewed by: Susana Gonsalez LPN - Fully Assessed Reason for Visit: Established Patient [175] Follow Up [171] nail care [Other] Established Patient [175] Follow Up [171] nail care [Other] Primary Visit Diagnosis:Onychomycosis [B35.1] Other Visit Diagnoses:Pain in toe of left foot [M79.675] Pain in toe of right foot [M79.674] Callus of foot [L84] Prescriptions as of 09/12/2024 - carbidopa-levodopa CR (SINEMET CR) 50-200 mg per tablet Take 1 tab at 8AM and 1 tab at 9PM nightly. - carbidopa-levodopa (SINEMET) 25-100 mg per tablet Take 2 tablets at 8AM, Noon and 4PM. - methIMAzole (TAPAZOLE) 5 mg tablet Take 1 tablet by mouth once daily. - LORazepam (ATIVAN) 1 mg tablet Take 1 tablet by mouth at bedtime as needed for anxiety for up to 90 days. - potassium chloride SR (MICRO-K) 10 mEq CR capsule Take 1 capsule by mouth two times a day. - ipratropium bromide (ATROVENT) 42 mcg (0.06 %) nasal spray Use 2 Sprays in the nose as needed. - aspirin 81 mg cap Take 81 mg by mouth once daily. - pantoprazole DR (PROTONIX) 40 mg tablet Take 40 mg by mouth once daily. - cholestyramine/aspartame (CHOLESTYRAMINE LIGHT ORAL) Take by mouth once daily. - isosorbide mononitrate ER (IMDUR) 30 mg 24 hr tablet Take 1 tablet by mouth once daily. - metoprolol tartrate, short acting, (LOPRESSOR) 25 mg tablet Take 1 tablet by mouth two times a day. - atorvastatin (LIPITOR) 20 mg tablet Take 1 tablet by mouth daily at bedtime. For cholesterol. - PARoxetine (PAXIL) 20 mg tablet Take 1 tablet by mouth once daily. - ketoconazole (NIZORAL) 2 % shampoo Apply to affected area two times a week. Per [facility]. PRN - tamsulosin (FLOMAX) 0.4 mg Take 0.4 mg by mouth once daily. Problem List As Of Date 09/12/2024 Noted Resolved Hypertension [I10] 05/04/2009 Anxiety [F41.9] 06/19/2009 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 Obesity [E66.9] 06/19/2009 11/17/2021 Subclinical hyperthyroidism [E05.90] 08/26/2009 06/16/2011 Seborrheic Keratoses [L82.1] 09/05/2010 07/26/2012 Actinic Damage///Sun-damaged skin [L57.8] 09/05/2010 07/26/2012 Solar lentigines [L81.4] 09/05/2010 07/26/2012 Stucco keratosis [L82.1] 09/05/2010 10/22/2015 Thyrotoxicosis without thyroid storm [E05.90] 06/19/2009 OA (osteoarthritis) of knee [M17.9] 01/24/2013 Acquired polycythemia [D75.1] 01/24/2013 Hyperlipidemia LDL goal <100 [E78.5] 10/09/2014 Ileus, postoperative (HCC) [K91.89, K56.7] 01/09/2015 07/22/2015 [employer] (more content not included)... Normal [facility] [id number] 09-12-2024 ECG01 Ventricular Rate : 4 6 BPM Atrial Rate : 46 BPM P-R Interval : 194 ms QRS Duration : 92 ms Q-T Interval : 484 ms QTC Calculation(Bazett) : 423 ms Calculated P Warren : 23 degrees Calculated R Warren : -10 degrees Calculated T Warren : 16 degrees SINUS BRADYCARDIA OTHERWISE NORMAL ECG Confirmed by MD MORIN QARAB ([id number]) on 09/13/2024 2:14:25 PM NAME : PRICILA OLIVIAAN PID : [id number] : 1945 Gender : Male Race : ORD : Procedure Date : Sep 12 2024 15:29:47 Edit Date : Sep 13 2024 14:14:30 Diagnosis: SINUS BRADYCARDIA OTHERWISE NORMAL ECG Confirmed by MD MORIN QARAB ([id number]) on 09/13/2024 2:14:25 PM Test Reason : Location : [facility] : [facility] Overread By : MD MORIN QARAB Edited By : MD MORIN QARAB Referred By : DEBRA CASTREJON Acquired by : Hernesto alberto [facility] 12 Lead EKGon 09-10-2024 12 Lead EKG [facility] Cardiovascular Services [address] [place] [address] 12 Lead EKG 09/10/24 1515 MR#: [id number] Acct: [id number] Name: ROHAN OLIVIA Lyle Rep #: [id number] : 1945 79 From: Darryl Harding MD Attending Dr: Status: DEP ER Ordering Dr: Jose Armando Fierro DO Date: 09/10/24 Location: ED Sex: M C Admitted: Test Reason : DIZZY Blood Pressure : */* mmHG Vent. Rate : 50 BPM Atrial Rate : 50 BPM P-R Int : 194 ms QRS Dur : 100 ms QT Int : 464 ms P-R-T Axes : 21 -22 15 degrees QTcB Int : 423 ms Sinus bradycardia Otherwise normal ECG Confirmed by DARRYL HARDING MD ([id number]), advertising editor DAJA MENDOZA ([id number]) on 09/12/2024 8:30:01 AM Referred By: Confirmed By: DARRYL HARDING MD 09/12/24829 Date Darryl Harding MD CC: Dr. Jose Armando Fierro DO; Dr. Brandon Cantor MD Signed Normal [facility] Absolute neutrophil countOrd ered By: Jose Armando Fierro on 09-10-2024 Neutrophils (Bld) [#/Vol] 4.0 10*3/uL 2.0-7.7 [facility] Anion gap in Serum or Plasma Ordered By: Jose Armando Fierro on 09-10-2024 Anion gap [Moles/Vol] 9 mmol/L 10-17 [facility] BUN/creatinine ratioOrdered By: Jose Armando Fierro on 09-10-2024 Urea nitrogen/Creatinine [Mass ratio] 13.8 mg/mg - [facility] Basic Metabolic Profile (BMP )on 09-10-2024 BUN/CRE 13.8 RATIO Normal 03-24 [facility] Comment on above: Performed By: #### L 501.5200, L500.2500, L100.0100, L501.4021 ####[facility] [address] [place], [address] Calcium [Mass/Vol] 9.4 mg/dL Normal 7.6-11.0 [facility] Comment on above: Performed By: #### L 501.5200, L500.2500, L100.0100, L501.4021 ####[facility] [address] [place], [address] Chloride [Moles/Vol] 105 mmol/L Normal 98-108 [facility] Comment on above: Performed By: #### L 501.5200, L500.2500, L100.0100, L501.4021 ####[facility] [address] [place], [address] CO2 [Moles/Vol] 25.6 mmol/L Normal 21.0-32.0 [facility] Comment on above: Performed By: #### L 501.5200, L500.2500, L100.0100, L501.4021 ####[facility] [address] [place], [address] Creatinine [Mass/Vol] 1.56 mg/dL High 0.70-1.20 [facility] Comment on above: Performed By: #### L 501.5200, L500.2500, L100.0100, L501.4021 ####[facility] [address] [place], [address] ECRCL 39.65 ml/min Low 50-250 [facility] Comment on above: Performed By: #### L 501.5200, L500.2500, L100.0100, L501.4021 ####[facility] [address] [place], [address] GAP 9 Normal 5-15 [facility] Comment on above: Performed By: #### L 501.5200, L500.2500, L100.0100, L501.4021 ####[facility] [address] [place], [address] GFR/1.73 sq M.predicted among non-blacks MDRD (S/P/Bld) [Vol rate/Area] 45 mL/min/{1.73_m2} Low >60 [facility] Comment on above: Result Comment: mL/m in/1.73m2 CKD-EPI Creatinine Equation (2020) Performed By: #### L 501.5200, L500.2500, L100.0100, L501.4021 ####[facility] [address] [place], [address] Glucose [Mass/Vol] 105 mg/dL High 70-99 [facility] Comment on above: Performed By: #### L 501.5200, L500.2500, L100.0100, L501.4021 ####[facility] [address] [place], [address] Potassium [Moles/Vol] 4.6 mmol/L Normal 3.3-5.1 [facility] Comment on above: Performed By: #### L 501.5200, L500.2500, L100.0100, L501.4021 ####[facility] [address] [place], [address] Sodium [Moles/Vol] 140 mmol/L Normal 133-145 [facility] Comment on above: Performed By: #### L 501.5200, L500.2500, L100.0100, L501.4021 ####[facility] [address] [place], [address] Urea nitrogen [Mass/Vol] 22 mg/dL High 4-19 [facility] Comment on above: Performed By: #### L 501.5200, L500.2500, L100.0100, L501.4021 ####[facility] [address] [place], [address] Basophil percentageOrdered B y: Jose Armando Fierro on 09-10-2024 Basophils/100 WBC (Bld) 0.8 % 0-1 [facility] CBC W/Diff, Automatedon 04-0 PLT EST SLT DEC Normal ADEQ [facility] Comment on above: Performed By: #### L 501.5200, L500.2500, L100.0100, L501.4021 ####[facility] [address] [place], [address] SMEAR COMMENT SCANNED Normal [facility] Comment on above: Performed By: #### L 501.5200, L500.2500, L100.0100, L501.4021 ####[facility] [address] [place], [address] CNPNon 09-10-2024 CNPN Telephone (INTMWS) ----- ROHAN OLIVIA JR. ([id number]) 1945 M Date Time Provider Department 09/10/24 BRANDON CANTOR INTWS During your visit today, we recorded the following information about you: Laurie Jacobs LPN 09/10/2024 1:35 PM Signed Patient calling he has been having dizziness and feeling faint lately. He said about 4 times weekly he feels like he could faint, he is not skipping any meals. He does not check his blood pressure at home. He does not drive any longer since he has parkinson's. Advised patient with him feeling faint would have his take him to the ER for evaluation. Patient said he would have take him to ER. Aware sending note to his PCP. Brandon Cantor MD 09/11/2024 12:28 PM Signed Noted. Allergies As of Date: 09/10/2024 (No Known Allergies) Date Reviewed: 08/16/2024 Reviewed by: Chris Pearson Jr., MD - Fully Assessed Reason for Visit: Patient Update [1234] Prescriptions as of 09/11/2024 - carbidopa-levodopa CR (SINEMET CR) 50-200 mg per tablet Take 1 tab at 8AM and 1 tab at 9PM nightly. - carbidopa-levodopa (SINEMET) 25-100 mg per tablet Take 2 tablets at 8AM, Noon and 4PM. - methIMAzole (TAPAZOLE) 5 mg tablet Take 1 tablet by mouth once daily. - LORazepam (ATIVAN) 1 mg tablet Take 1 tablet by mouth at bedtime as needed for anxiety for up to 90 days. - potassium chloride SR (MICRO-K) 10 mEq CR capsule Take 1 capsule by mouth two times a day. - ipratropium bromide (ATROVENT) 42 mcg (0.06 %) nasal spray Use 2 Sprays in the nose as needed. - aspirin 81 mg cap Take 81 mg by mouth once daily. - pantoprazole DR (PROTONIX) 40 mg tablet Take 40 mg by mouth once daily. - cholestyramine/aspartame (CHOLESTYRAMINE LIGHT ORAL) Take by mouth once daily. - isosorbide mononitrate ER (IMDUR) 30 mg 24 hr tablet Take 1 tablet by mouth once daily. - metoprolol tartrate, short acting, (LOPRESSOR) 25 mg tablet Take 1 tablet by mouth two times a day. - atorvastatin (LIPITOR) 20 mg tablet Take 1 tablet by mouth daily at bedtime. For cholesterol. - PARoxetine (PAXIL) 20 mg tablet Take 1 tablet by mouth once daily. - ketoconazole (NIZORAL) 2 % shampoo Apply to affected area two times a week. Per [facility] PRN - tamsulosin (FLOMAX) 0.4 mg Take 0.4 mg by mouth once daily. Problem List As Of Date 09/10/2024 Noted Resolved Hypertension [I10] 05/04/2009 Anxiety [F41.9] 06/19/2009 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 Obesity [E66.9] 06/19/2009 11/17/2021 Subclinical hyperthyroidism [E05.90] 08/26/2009 06/16/2011 Seborrheic Keratoses [L82.1] 09/05/2010 07/26/2012 Actinic Damage///Sun-damaged skin [L57.8] 09/05/2010 07/26/2012 Solar lentigines [L81.4] 09/05/2010 07/26/2012 Stucco keratosis [L82.1] 09/05/2010 10/22/2015 Thyrotoxicosis without thyroid storm [E05.90] 06/19/2009 OA (osteoarthritis) of knee [M17.9] 01/24/2013 Acquired polycythemia [D75.1] 01/24/2013 Hyperlipidemia LDL goal <100 [E78.5] 10/09/2014 Ileus, postoperative (HCC) [K91.89, K56.7] 01/09/2015 07/22/2015 Enterocolitis due to Clostridium difficile [A04*05/25/2015 10/22/2015 Irritable bowel syndrome with diarrhea [K58.0] 10/22/2015 Flatulence [R14.3] 04/21/2016 03/16/2017 Elevated prostate specific antigen (PSA) [R97.2*04/22/2016 05/17/2024 Idiopathic peripheral neuropathy [G60.9] 10/20/2016 Dyspnea on exertion [R06.09] 10/19/2017 09/13/2018 Obesity, Class I, BMI 30-34.9 [E66.811] 10/19/2017 11/04/2022 Other pulmonary embolism with acute cor pulmona*01/30/2018 09/13/2018 Pulmonary hypertension (HCC) [I27.20] 01/30/2018 09/13/2018 Gross hematuria [R31.0] 01/30/2018 09/13/2018 Chronic midline low back pain without sciatica *04/23/2019 05/17/2024 Cervicalgia [M54.2] 04/23/2019 05/17/2024 Melanoma in situ of unspecified part of face (H*07/04/[address] nodules on CT [R91.8] 02/26/2020 05/17/2024 Other chest pain [R07.89] 08/10/2020 09/14/2020 Coronary artery disease of [place] artery of [place]*08/24/2020 Unsteady gait [R26.81] 02/15/2021 05/17/2024 Tremors of nervous system [R25.1] 07/10/2021 11/17/2021 Chronic diarrhea [K52.9] 11/17/2021 05/17/2024 Abnormal weight loss [R63.4] 11/17/2021 08/04/2022 Parkinson's disease (HCC) [G20.A1] 11/17/2021 Renal cell cancer, 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] 05/05/2022 05/17/2024 Vasomotor rhinitis [J30.0] 08/04/2022 Platelets decreased (HCC) [D69.6] 11/04/2022 Stage 3a chronic kidney disease (HCC) [N18.31] 05/19/2023 History of renal cell cancer [Z85.528] 05/17/2024 Encounter Status:Closed by BRANDON CANTOR on 09/11/24 Normal [facility] Carbon dioxide, total [Moles /volume] in Central venous bloodOrdered By: Jose Armando Fierro on 09-10-2024 CO2 [Moles/Vol] 25.6 mmol/L 21.0-32.0 [facility] Chest 1 View (Portable)on Chest 1 View (Portable) [facility] Imaging Services [address] [place] [address] Chest 1 View (Portable) MR#: [id number] Acct: [id number] Name: ROHAN OLIVIA Rep #: [id number] : 1945 M 79 From: Delvin Post i DO PCP: Dr. Brandon Cantor MD Status: PRE ER Study: Chest 1 View (Portable) Date of Exam: 09/10/24 Exam# [id number] Ordering Dr: Jose Armando Fierro DO PROCEDURE: Portable upright chest radiograph, two views 09/10/2024 REASON FOR EXAM: NEAR SYNCOPE TECHNIQUE: Portable upright chest radiograph, two views COMPARISON: None available FINDINGS: The bones are osteopenic, grossly intact. Monitoring leads overlie the chest. No pneumothorax or pulmonary vascular congestion. 5 mm calcified granuloma projects over the medial left upper lobe. There are some abnormal patchy opacities projecting over the mid to lower lungs bilaterally, greatest on the left. No sizable pleural effusion. RAD/Chest 1 View (Portable) IMPRESSION: Patchy opacities project over the mid to lower lungs bilaterally, which could be due to areas of pneumonia or pulmonary edema. No sizable pleural effusion. Recommend continued radiologic follow-up to document resolution. Reading Location: [facility] CC: Dr. Jose Armando Fierro DO; Dr. Brandon Cantor MD Fruit Checker: Signed Normal [facility] Chloride assayOrdered By: Amos Fierro on 09-10-2024 Chloride [Moles/Vol] 105 mmol/L 98-108 [facility] Emergency Department Summary on 09-10-2024 Emergency Department Summary [facility] Medical Records Department [address] [place] [address] Emergency Department Summary 09/10/24 MR#: [id number] Acct: [id number] Name: ROHAN OLIVIA Rep #: [id number] : 1945 79 From: Jose Armando Fierro DO PCP: Dr. Brandon Cantor MD Status:DEP ER Location: ED HPI History of Present Illness Chief Complaint: Dizziness Informant: patient and spouse/S.O. Narrative Narrative: 79-year-old male presenting to the emergency room with a chief complaint of dizziness. Patient states that for years he has had an episode or 2/year where he suddenly feels dizzy. He states it is very short-lived and then goes away. He states that over the past several weeks it has been coming daily to every other day sometimes a couple times per day. He states that dizziness to him being more of almost passing out/lightheadedness. He states that today he was making something to eat when he started to feel like his body was moving and his head became hot. He states he went to sat down and he got better but then it happened again when he started to get dressed. He states that currently he feels fine. He denies a sensation that the room is spinning. He cannot identify anything that makes it come on. States he gets a similar feeling he stands up too quickly. He notes he has had a heart cath 2 years ago that did not require any intervention. He sees cardiology [facility]. He denies any new medication. He does not associate the pain with his symptoms. He denies nausea or sweating recently but does note that he has occasionally been sweating during the events, past. He denies any palpitations. [facility] Medical History Urinary retention Chronic cough History of Clostridium difficile infection Ambulates with cane Excessive bleeding Parkinsons disease Abnormal weight loss Melanoma in situ of unspecified part of face IBS (irritable bowel syndrome) Chronic diarrhea Thyrotoxicosis Expressive aphasia Hyperthyroidism Hypothyroidism Osteoporosis Wears glasses Wears dentures Cancer Depression Anxiety Prostate disease Pulmonary embolism Back pain Syncope Difficulty swallowing Heartburn Former smoker Shortness of breath on exertion Leg cramps History of pain when walking History of echocardiogram Cardiology follow-up encounter Hypertension Skin cancer Arthritis Change in bowel habit Polycythemia Hyperlipidemia Osteoarthritis Diarrhea Fall Hypercholesterolemia BPH (benign prostatic hyperplasia) Acute respiratory failure with hypoxia Chronic respiratory failure with hypoxia Closed right hip fracture Home Medications ???Medication ???Instructions ???Recorded ???Last Taken ???Type metoprolol tartrate 25 mg tablet 25 mg PO DAILY heart 04/15/2109/26 History potassium chloride 10 mEq 10 meq PO BID supplement 04/15/21 04/08/24 History capsule,extended release carbidopa 25 mg-levodopa 100 mg 1 tab PO TID PARKINSONS 10/18/21 1 06/09/23 History tablet isosorbide mononitrate 30 mg 30 mg PO DAILY ANGINA 10/18/2109/26 History tablet,extended release 24 hr lorazepam 1 mg tablet (Ativan) 1 mg PO DAILY PRN Anxiety 12/01/21 02/15/22 History paroxetine HCl 20 mg tablet 20 mg PO DAILY DEPRESSION 12/07/21 04/08/24 History atorvastatin 20 mg tablet 20 mg PO QHS CHOLESTEROL 02/08/22 04/07/24 History tamsulosin 0.4 mg capsule 0.4 mg PO QHS #14 caps 08/21/23 Rx methimazole 5 mg tablet 5 mg PO DAILY THYROID #30 tabs 02/2604/08/24 Rx [id number] 100 gram-sod sulf 7.5 240 ml PO PER PKG DIR #1 ea 04/08/24 Rx ocuc-YfXs-IAk-ascorbate-C oral pwdr pack (MoviPrep) aspirin 81 mg tablet,delayed 81 mg PO QDAY 05/06/24 Unknown His tory release (Adult Low Dose Aspirin) cholestyramine (with sugar) 4 gram 4 g PO QDAY #348.6 grams 5 Unknown Rx oral powder pantoprazole 40 mg tablet,delayed 40 mg PO DAILY #30 TABLETS Unknown Rx release Allergy/AdvReac Type Severity Reaction Status Date / Time No Known Allergies Allergy Verified 09/10/24 14:28 Family History Father Lung cancer Mother Parkinsons Heart failure Surgical History History of cataract extraction with lens replacement History of cholecystectomy S/P laparoscopic cholecystectomy History of esophagogastroduodenoscop y (EGD) Hx of colonoscopy History of nephrectomy, left History of tonsillectomy History of total knee replacement (TKR) History of transurethral resection of prostate History of cardiac catheterization History of rhinoplasty History of total right hip replacement reattachment of severed finger H/O colonoscopy stoma reversal (more content not included)... Normal [facility] Eosinophil percentageOrdered By: Jose Armando Fierro on 09-10-2024 Eosinophils/100 WBC (Bld) 2.3 % 0-5 [facility] Erythrocyte distribution wid th (RBC) [Ratio]Ordered By: Jose Armando Fierro on 09-10-2024 Erythrocyte distribution width (RBC) [Entitic vol] 48.7 fL High 35.1-43.9 [facility] Erythrocyte distribution wid th ratioOrdered By: Jose Armando Fierro on 09-10-2024 Erythrocyte distribution width (RBC) [Ratio] 14.2 % 11.6-14.6 [facility] Estimation of creatinine davey aranceOrdered By: Jose Armando Fierro on 09-10-2024 Estimated Creatinine Clearance Calc 39.65 ml/min Low 50-250 [facility] GFR/1.73 sq M.predicted stephen g non-blacks MDRD (S/P/Bld) [Vol rate/Area]Ordered By: Jose Armando Fierro on 09-10-2024 Estimated GFR (MDRD) Non-Af Amer 45 Low >60 [facility] Comment on above: mL/min/1.73m2 CKD-EP I Creatinine Equation (2020) Hematocrit Auto (Bld) [Volum e fraction]Ordered By: Jose Armando Fierro on 09-10-2024 Hematocrit (Bld) [Volume fraction] 46.7 % 40-54 [facility] Hemoglobin measurementOrdere d By: Jose Armando Fierro on 09-10-2024 Hemoglobin (Bld) [Mass/Vol] 15.9 g/dL 13.0-16.5 [facility] Immature granulocytes/100 WB C Auto (Bld)Ordered By: Jose Armando Fierro on 09-10-2024 Immature granulocytes/100 WBC (Bld) 0.400 % 0.0-0.9 [facility] Comment on above: IG% - Immature Granu locytes (promyelocytes, myelocytes and metamyelocytes) > 1% indicates that a LEFT SHIFT is Present. L499.0042on 09-10-2024 Trop T High Sen 17 ng/L Normal <=22 [facility] Comment on above: Performed By: #### L 499.0042 #### [facility] [address] [place], [address] L501.4021on 09-10-2024 Trop T High Sen 23 ng/L High <=22 [facility] Comment on above: Performed By: #### L 501.5200, L500.2500, L100.0100, L501.4021 ####[facility] [address] [place], [address] Lymphocytes Auto (Unsp spec) [#/Vol]Ordered By: Jose Armando Fierro on 09-10-2024 Lymphocytes (Bld) [#/Vol] 0.58 10*3/uL Low 0.83-4.51 [facility] Lymphocytes/100 WBC Auto (Un sp spec)Ordered By: Jose Armando Fierro on 09-10-2024 Lymphocytes/100 WBC (Bld) 11.0 % Low 19-41 [facility] MCV (mean corpuscular volume ) determinationOrdered By: Jose Armando Fierro on 09-10-2024 MCV (RBC) [Entitic vol] 92.7 fL 80-94 [facility] Magnesiumon 09-10-2024 Magnesium [Mass/Vol] 2.0 mg/dL Normal 1.5-2.2 [facility] Comment on above: Performed By: #### L 501.5200, L500.2500, L100.0100, L501.4021 ####[facility] [address] [place], [address] Magnesium (Unsp spec) [Mass/ Vol]Ordered By: Jose Armando Fierro on 09-10-2024 Magnesium [Mass/Vol] 2.0 mg/dL 1.5-2.2 [facility] Manual differential comment Juan Ramon (Bld) [Interp]Ordered By: Jose Armando Fierro on 09-10-2024 Differential Comment SCANNED [facility] Mean corpuscular hemoglobin (MCH) determinationOrdered By: Jose Armando Fierro on 09-10-2024 MCH (RBC) [Entitic mass] 31.5 pg 27.0-32.0 [facility] Mean corpuscular hemoglobin concentration (MCHC) determinationOrdered By: Jose Armando Fierro on 09-10-2024 MCHC (RBC) [Mass/Vol] 34.0 g/dL 32-36 [facility] Mean platelet volume determi nationOrdered By: Jose Armando Fierro on 09-10-2024 Platelet mean volume (Bld) [Entitic vol] 11.3 fL 6.2-12.0 [facility] Monocyte percentageOrdered B y: Jose Armando Fierro on 09-10-2024 Monocytes/100 WBC (Bld) 9.8 % 0-10 [facility] Neutrophil percentageOrdered By: Jose Armando Fierro on 09-10-2024 Neutrophils/100 WBC (Bld) 75.7 % High 47-70 [facility] Nucleated red blood cell per centageOrdered By: Jose Armando Fierro on 09-10-2024 Nucleated RBC/100 WBC (Bld) [Ratio] 0 % 0-5 [facility] Platelet countOrdered By: Amos Fierro on 09-10-2024 Platelets (Bld) [#/Vol] 126 10*3/uL Low 150-450 [facility] Platelets LM Ql (Bld)Ordered By: Jose Armando Fierro on 09-10-2024 Platelet Estimate SLT DEC ADEQ [facility] Potassium (Unsp spec) [Mass/ Vol]Ordered By: Jose Armando Fierro on 09-10-2024 Potassium [Moles/Vol] 4.6 mmol/L 3.3-5.1 [facility] RBC Auto (Bld) [#/Vol]Ordere d By: Jose Armando Fierro on 09-10-2024 RBC (Bld) [#/Vol] 5.04 10*6/uL 4.6-6.2 [facility] Serum creatinine measurement (mass/volume)Ordered By: Jose Armando Fierro on 09-10-2024 Creatinine [Mass/Vol] 1.56 mg/dL High 0.70-1.20 [facility] Serum glucose measurement (m ass/volume)Ordered By: Jose Armando Fierro on 09-10-2024 Glucose [Mass/Vol] 105 mg/dL High 70-99 [facility] Serum or plasma calcium mey urement (mass/volume)Ordered By: Jose Armando Fierro on 09-10-2024 Calcium [Mass/Vol] 9.4 mg/dL 7.6-11.0 [facility] Serum or plasma urea nitroge n measurement (mass/volume)Ordered By: Jose Armando Fierro on 09-10-2024 Urea nitrogen [Mass/Vol] 22 mg/dL High 4-19 [facility] Sodium levelOrdered By: Kavon Fierro on 09-10-2024 Sodium [Moles/Vol] 140 mmol/L 133-145 [facility] Troponin T.cardiac High sens itivity method [Mass/Vol]Ordered By: Jose Armando Fierro on 09-10-2024 Troponin T High Sensitivity 2 Hour 17 ng/L <22 [facility] Troponin T High Sensitivity 23 ng/L High <22 [facility] White blood cell (WBC) count Ordered By: Jose Armando Fierro on 09-10-2024 WBC (Bld) [#/Vol] 5.3 10*3/uL 4.4-11.0 [facility] PSA, total screeningOrdered By: Angelica St on 09-02-2024 Prostate Specific Antigen Screen 2.75 ng/mL 0.02-4.00 [facility] Comment on above: This test was perfor med using the [employer] tPSA method. Measured values of a patient sample can vary depending on the testing procedure used. PSA values determined on patient samples by different testing procedures cannot be used interchangeably. If there is a change in PSA assays while monitoring therapy, sequential testing should be performed to confirm baseline values. PSA,Total - Annual Screenon 09-02-2024 PSA,TOT SCREEN 2.75 ng/mL Normal 0.02-4.00 [facility] Comment on above: Result Comment: This test was performed using the [employer] tPSA method. Measured values of a patient??sample can vary depending on the testing procedure used. PSA values determined on patient samples by different testing procedures cannot be used interchangeably. If there is a change in PSA assays while monitoring therapy, sequential testing should be performed to confirm baseline values. Performed By: #### L 501.9910 #### [facility] [address] [place], [address] CNOVon 08-16-2024 CNOV Office Visit (NEMDIANN ) ----- ROHAN OLIVIA JR. ([id number]) 1945 M Date Time Provider Department 08/16/24 11:40 AM CHRIS PEARSON JR During your visit today, we recorded the following information about you: Pulse Respiration Blood pressure Weight 58/minute 16/minute 120/62 85.5 kg Chris Pearson Jr., MD 08/16/2024 12:56 PM Signed ESTABLISHED PATIENT VISIT CHIEF COMPLAINT: Follow Up HISTORY OF PRESENT ILLNESS: Rohan Olivia Jr. is a 79 year old male, BMI 27.85 kg/m2 with a PMH significant for and per last visit of 05/13/24: 1. Parkinson's disease, unspecified whether dyskinesia present, unspecified whether manifestations fluctuate (HCC) - ICD9: 332.0, ICD10: G20.A1 (primary diagnosis) 2. Abnormality of gait - ICD9: 781.2, ICD10: R26.9 Patient with prior dx of Parkinson's disease, and agree with dx after obtaining history and examination. However, symptoms poorly controlled at this time due to scheduling of medication. Patient currently only taking Sinemet in AM and then not again until bedtime. Note pt does best during the AM hours. D/w pt and his who accompanied pt, etiology, physiology, treatment and prognosis of PD. They understand this is a clinical dx. They understand the need to take medications as scheduled. They understand the benefits of activity and exercise in slowing the progression of disease. After reviewing prior treatment and response to meds, plan as follows: CARBIDOPA-LEVODOPA 25/100mg Take 1.5 tablets at 8AM, Noon and 4PM. CARBIDOPA-LEVODOPA CR 50/200mg Take 1 tablet at 9PM. States has been doing PT at [facility] and they feel quite a bit of improvement. Taking meds as above. Note we are 4 hours out from time of last dosing. Perhaps an on-off effect but pt thinks minimal. States 2 biggest problems are feeling like feet stuck to floor and other is sense of balance being off at times. No time of day worse than others. States he has had some ankle pain (following with ortho) which does limit the amount of exercise he could do during the interim. No falls. Now taking part in the STOP the disease program. REVIEW OF SYSTEMS GENERAL:No weight loss, malaise or fevers. HEENT:Negative for frequent or significant headaches, No changes in hearing or vision, no nose bleeds or other nasal problems NECK:Negative for lumps, goiter, pain and significant neck swelling RESPIRATORY: Negative for cough, wheezing or shortness of breath. CARDIOVASCULAR: Negative for chest pain, leg swelling or palpitations. GASTROINTESTINAL: Negative for abdominal discomfort, blood in stools or black stools or change in bowel habits GENITOURINARY: No history of dysuria, frequency or incontinence MUSCULOSKELETAL: See HPI. NEUROLOGIC:See HPI. LAB/IMAGING: Those performed since patient's last visit have been reviewed. WBC (k/uL) Date Value 05/18/2024 6.26 RBC (m/uL) Date Value 05/18/2024 5.26 Hemoglobin (g/dL) Date Value 05/18/2024 16.4 Hematocrit (%) Date Value 05/18/2024 49.4 MCV (fL) Date Value 05/18/2024 93.9 MCH (pg) Date Value 05/18/2024 31.2 MCHC (g/dL) Date Value 05/18/2024 33.2 RDW-CV (%) Date Value 05/18/2024 14.0 Platelet Count (k/uL) Date Value 05/18/2024 92 (L) MPV (fL) Date Value 05/18/2024 12.1 Glucose (mg/dL) Date Value 05/18/2024 88 BUN (mg/dL) Date Value 05/18/2024 18 Creatinine (mg/dL) Date Value 05/18/2024 1.33 (H) Sodium (mmol/L) Date Value 05/18/2024 140 Potassium (mmol/L) Date Value 05/18/2024 4.2 Chloride (mmol/L) Date Value 05/18/2024 104 CO2 (mmol/L) Date Value 05/18/2024 25 Protein, Total (g/dL) Date Value 05/18/2024 6.6 Albumin (g/dL) Date Value 05/18/2024 4.1 Calcium, Total (mg/dL) Date Value 05/18/2024 9.5 Alkaline Phosphatase (U/L) Date Value 05/18/2024 105 Bilirubin, Total (mg/dL) Date Value 05/18/2024 1.0 AST (U/L) Date Value 05/18/2024 16 ALT (U/L) Date Value 05/18/2024 6 (L) Hep C Antibody IA (no units) Date Value 10/03/2014 Negative MEDICATIONS: methIMAzole (TAPAZOLE) 5 mg tablet Take 1 tablet by mouth once daily. LORazepam (ATIVAN) 1 mg tablet Take 1 tablet by mouth at bedtime as needed for anxiety for up to 90 days. potassium chloride SR (MICRO-K) 10 mEq CR capsule Take 1 capsule by mouth two times a day. ipratropium bromide (ATROVENT) 42 mcg (0.06 %) nasal spray Use 2 Sprays in the nose as needed. aspirin 81 mg cap Take 81 mg by mouth once daily. cholestyramine/aspartame (CHOLESTYRAMINE LIGHT ORAL) Take by mouth once daily. carbidopa-levodopa (SINEMET) 25-100 mg per tablet Take 1.5 tablets at 8AM, Noon and 4PM. carbidopa-levodopa CR (SINEMET CR) 50-200 mg per tablet Take at 9PM nightly. isosorbide mononitrate ER (IMDUR) 30 mg 24 hr tablet Take 1 tablet by mouth once daily. metoprolol tartrate, short acting, (LOPRESSOR) 25 m (more content not included)... Normal [facility] PT D/C Summary (1)on 025 PT D/C Summary (1) [facility] [address] [place] [address]. [address] [place] [address] / REHABILITATION SERVICES DISCHARGE SUMMARY MR#: [id number] Acct: [id number] Name: ROHAN OLIVIA Rep #: [id number] : 1945 79 From: Jo Ann Aranda MPT Referring Dr.: Dr. Chris Pearson MD Status: RE G RCR Insurance: [facility] MEDICARE SENIOR [facility] SELF PAY INSURANCE Discharge Summary D/C summary: It has been my pleasure to treat ROHAN OLIVIA referred by Dr. Chris Pearson MD, with the diagnosis of PD, abnormality of gait for a total of 8 visit(s). Discharge Date: 08/05/24 Please see the following information for a summary of their discharge status. Subjective Subjective: Pt feels that PT has helped a little bit getting him off his butt and doing some exercises. He is in the PD class and likes it. Pain L hip and knee: Pain Intensity (Out of 10): 2 R knee pain: Pain Intensity (Out of 10): 0 Overall Improvement % Improvement: 50 Objective Objective/Function: Gait with a rollator 1 lap around dept tool 2:18 and only caught toe once but pt was able to slow himself down to not catch his foot again. FGA 11 sit to stand 5/5 times on first attmept Goals Goal 1:: I HEP Goal Progress: Goal Met Goal 2:: Increase balance (FGA was 7 at eval) Goal 3:: Be able to complete 2 laps around dept with rollator without catching his feet with gait (was able to do 1 lap in 2:48 on eval with catching toe once whilch needed min A by therapist to help correct with rollator). Goal Progress: Progressing Goal 4:: Sit to stand out of a chair 5/5 with 1 UE support to improve leg strength Goal Progress: Goal Met Plan Plan: DC PT to PD class D/C Information Discharge Comments: DC PT to PD class and HEP d/c sentence: If there are questions or concerns regarding this patient's physical therapy, please feel free to call me at [phone]. Thank you for the referral of this patient. Sincerely, LENA Pierce Balance/Gait/Functional tests Balance/Special Test Scores Functional Gait Assessment Score: 11 % Disability: 63.3400 Lower Extremity Functional Score: 35 Improvement % Improvement: 50 08/05/24 1351 CC: Dr. Brandon Cantor MD; Dr. Chris Pearson MD Signed [facility] Inital Evaluation (1) - PTon 06-19-2024 Inital Evaluation (1) - PT [facility]. [address] [place] [id number] / REHABILITATION SERVICES INITIAL EVALUATION MR#: [id number] Acct: [id number] Name: ROHAN OLIVIA Rep #: [id number] : 1945 79 From: Jo Ann PAREDES Referring Dr.: Dr. Chris Pearson MD [facility] Insurance: [employer] MEDICARE SENIOR [employer] SELF PAY INSURANCE Patient's Visit Information Visit Information Visit Information: ROHAN OLIVIA is a 79 year old M referred to Physical Therapy by Dr. Chris Pearson MD with a diagnosis of PD, abnormality of gait. Date of Evaluation: 06/19/24 Physical Therapist: LENA Pierce Visit Plan Frequency: 2x /Week Duration: 2 Months Plan: Instructed pt to come in with a rollator due to his balance score being so low and he is a fall risk. 2X/ week for 8 weeks for gait endurance, LE strength, functional transfers, posture, dual tasking, with HEP Subjective Subjective: Pt has Arthritis L knee and L hip and artificial knee and hip on the R, spinal stenosis in the back and PD. He was dx with PD 3-4 years ago and is on meds. He feels that the meds really work and other times not so much. He feels that the meds help him not shake as much. Dr Pearson sent him here because PT would help him with his PD. He can only walk so far and then his hip hurts and it is too cold outside right now. He has had a couple falls (2 have been bad enough that the squad had to get him). He has caught himself several other times. He feels that he trips over things, at times he has a sense of losing balance if he gets up to quick, or walk BW very far. He can get up from the floor if he pushes up from a chair etc. He has stairs at home but his master is on first floor. He uses a railing and he goes 2 feet to a step. Pt struggles with rolling to his R side due to the pain. It takes him a lot longer to get in and out of the car. Sit to stand: uses arms and prefers taller chairs. He has a rollator that he uses in the house and uses the cane when he leaves the house. Pain L hip and knee: Pain Intensity (Out of 10): 0 Objective Objective: Gait: walks with flexed trunk and shuffled gait, decrease stride length, walks with a Quad cane but really does not put it on the ground much and very unsteady. Pt walked around entire dept with rollator with CGA and caught toe once which needed min A by therapist and did it in 2 min and 48 seconds LE MMT: R hip flex 5.4 and L 10.3 R knee ext 20.8 and L 21.9 R knee flex 11.8 and L 11.2 Sit to stand: uses arms to push self out of the chair but able to stand up on first attempt. Heel and toe raises: pt struggles and can not get toes off the ground but able to get heels up. Seated opp hip flex and opp arm alternating: X 20 times in a row without messing up FGA: 7 (told pt that he was a fall risk and needed to use his rollator as opposed to his cane). Posture: rounded shoulders, flexed trunk Balance/Special Test Scores Functional Gait Assessment Score: 7 % Disability: 76.6700 Lower Extremity Functional Score: 27 Goals Goal 1:: I HEP Goal Time Frame: 6-8 Weeks Goal 2:: Increase balance (FGA was 7 at eval) Goal Time Frame: 6-8 Weeks Goal 3:: Be able to complete 2 laps around dept with rollator without catching his feet with gait (was able to do 1 lap in 2:48 on eval with catching toe once whilch needed min A by therapist to hel p correct with rollator). Goal Time Frame: 6-8 Weeks Goal 4:: Sit to stand out of a chair 5/5 with 1 UE support to improve leg strength Goal Time Frame: 6-8 Weeks Rehabilitation Potential Rehabilitation Potential: Good Anticipated Interventions Patient/Client Instruction: Educate patient on: Condition and Plan of Care For the Purpose of:: To improve nutrient delivery to tissue, To improve muscle performance and motor function, To improve ability to perform ADL's, To increase tolerance to activity/condition/positi on, To improve performance and independence with ADL's, To decrease level of supervision to perform tasks, To improve ability of physical actions for home/community/work/leisu re, To improve gait and locomotor functions, To improve health of tissue, To decrease soft tissue restriction, To improve endurance, To improve balance and To improve safety with gait Therapeutic Exercise to Include: Strength training, Endurance training, Balance training, Coordination, Body mechanics, Postural training, Flexibilty training, Gait and locomotor training, Neuromotor development, Active ROM and Dynamic Lumbar Stabilization For the Purpose of:: To decrease pain, To increase ROM, To improve muscle performance and motor function, To improve ability to perform ADL's, To increase tolerance to activity/condition/positi on, To improve performance and independence with ADL's, To decrease level of supervision to perform tasks, (more content not included)... [facility] HIP, UNI W/ Pelvis 2-3 Views on 06-17-2024 HIP, UNI W/ Pelvis 2-3 Views [facility] [address] [place] [address] HIP, UNI W/ Pelvis 2-3 Views MR#: [id number] Acct: [id number] Name: ROHAN OLIVIA Rep #: [id number] : 1945 M 79 From: Wendy Vail MD PCP: Dr. Brandon Cantor MD Status: DEP AMB Study: HIP, UNI W/ Pelvis 2-3 Views Date of Exam: Exam# [id number] Ordering Dr: Emory Isabel DO [id number] INDICATION: pain EXAMINATION/TECHNIQUE: X-RAY - XR Hip Unilateral with Pelvis when performed; 2-3 Views COMPARISON: CT dated August 18, 2023 FINDINGS: There are degenerative changes at the visualized lower lumbar spine. PELVIC BONES: No displaced fracture, destructive or sclerotic lesions. Note that overlapping bowel shadows may however obscure fine detail. There are degenerative changes of the sacroiliac joints, more pronounced on the left. There are degenerative changes of the of the pubic symphysis. HIPS: There is a stable right total hip arthroplasty in place, grossly anatomic in alignment. There is stable heterotopic bone formation lateral to the prosthesis. There are degenerative changes of the left hip characterized by joint space narrowing, subchondral sclerosis and subchondral cysts. SOFT TISSUES: No soft tissue swelling or gas. RAD/HIP, UNI W/ Pelvis 2-3 Views IMPRESSION: Degenerative changes of the left hip, sacroiliac joints and pubic symphysis. Stable right total hip arthroplasty, grossly anatomic in alignment. Electronically Signed: Wendy Vail MD at 13:52 EST , CC: Dr. Emory Isabel DO; Dr. Brandon Cantor MD Fruit Checker: Signed [facility] Lumbar Spine 2 or 3 Viewson 06-17-2024 Lumbar Spine 2 or 3 Views [facility] [address] [place] [address] Lumbar Spine 2 or 3 Views MR#: [id number] Acct: [id number] Name: ROHAN OLIVIA Rep #: [id number] : 1945 M 79 From: Wendy Vail MD PCP: Dr. Brandon Cantor MD Status: DEP AMB Study: Lumbar Spine 2 or 3 Views Date of Exam: Exam# [id number] Ordering Dr: Emory Isabel DO [id number] INDICATION: pain EXAMINATION/TECHNIQUE: X-RAY - XR Spine Lumbar 2 or 3 Views COMPARISON: CT of the abdomen and pelvis dated August 18, 2023 FINDINGS: VERTEBRAE: Preserved vertebral body height. No fracture. There is multilevel endplate spondylosis. No spondylolisthesis. Preservation of the normal lumbar lordosis. There is multilevel facet arthropathy. DISCS: There is multilevel degenerative disc disease. INCLUDED ABDOMEN: Included bowel gas pattern is non-obstructive. There are vascular calcifications of the abdominal aorta. RAD/Lumbar Spine 2 or 3 Views IMPRESSION: Multilevel degenerative changes. Atherosclerosis. Electronically Signed: Wendy Vail MD at 14:08 EST , CC: Dr. Emory Isabel DO; Dr. Brandon Cantor MD Fruit Checker: Signed [facility] Orthopedic Visit Reporton Orthopedic Visit Report [facility] [address] [place] [address] [address] [place] [address] OFFICE VISIT Date of Service: 06/17/24 MR#: [id number] Acct: [id number] Name: ROHAN OLIVIA Rep #: [id number] : 1945 Provider: Dr. Emory carcamo DO Age/Sex: 79/M Location: [facility] Status: Signed Intake Vital Signs 05/06/24 13:41 Height 5 ft 10 in Weight: 191 lb 8 oz BMI 27.4 Intake Visit Reasons: LEFT HIP Accompanied by: Self Is patient in pain?: Yes Allergies No Known Allergies Allergy (Verified 06/17/24 13:14) Medications ???Medication ???Instructions ???Recorded ???Confirmed ???Type metoprolol tartrate 25 mg tablet 25 mg PO DAILY heart 04/15/21 06/17/24 History potassium chloride 10 mEq 10 meq PO BID supplement 04/15/21 06/17/24 History capsule,extended release carbidopa 25 mg-levodopa 100 mg 1 tab PO TID PARKINSONS 10/18/21 06/17/24 History tablet isosorbide mononitrate 30 mg 30 mg PO DAILY ANGINA 10/18/21 06/17/24 History tablet,extended release 24 hr lorazepam 1 mg tablet (Ativan) 1 mg PO DAILY PRN Anxiety 12/01/21 06/17/24 History paroxetine HCl 20 mg tablet 20 mg PO DAILY DEPRESSION 12/07/21 06/17/24 History atorvastatin 20 mg tablet 20 mg PO QHS CHOLESTEROL 02/08/22 06/17/24 History tamsulosin 0.4 mg capsule 0.4 mg PO QHS #14 caps 08/21/23 06/17/24 Rx methimazole 5 mg tablet 5 mg PO DAILY THYROID #30 tabs 09/12/23 06/17/24 Rx cholestyramine (with sugar) 4 gram 1 g PO HS #348.6 grams 12/14/23 06/17/24 Rx oral powder [id number] 100 gram-sod sulf 7.5 240 ml PO PER PKG DIR #1 ea 12/14/23 06/17/24 Rx [id number]-[id number]-TFv-ascorbate-C oral pwdr pack (MoviPrep) aspirin 81 mg tablet,delayed 81 mg PO QDAY 05/06/24 06/17/24 History release (Adult Low Dose Aspirin) pantoprazole 40 mg tablet,delayed 40 mg PO DAILY #30 TABLETS 06/07/24 06/17/24 Rx release Have you fallen in the past year?: No PFSH Medical History Urinary retention Chronic cough History of Clostridium difficile infection Ambulates with cane Excessive bleeding Parkinsons disease Abnormal weight loss Melanoma in situ of unspecified part of face IBS (irritable bowel syndrome) Chronic diarrhea Thyrotoxicosis Expressive aphasia Hyperthyroidism Hypothyroidism Osteoporosis Wears glasses Wears dentures Cancer Depression Anxiety Prostate disease Pulmonary embolism Back pain Syncope Difficulty swallowing Heartburn Former smoker Shortness of breath on exertion Leg cramps History of pain when walking History of echocardiogram Cardiology follow-up encounter Hypertension Skin cancer Arthritis Change in bowel habit Polycythemia Hyperlipidemia Osteoarthritis Diarrhea Fall Hypercholesterolemia BPH (benign prostatic hyperplasia) Acute respiratory failure with hypoxia Chronic respiratory failure with hypoxia Closed right hip fracture Surgical History History of cataract extraction with lens replacement History of cholecystectomy S/P laparoscopic cholecystectomy History of esophagogastroduodenoscop y (EGD) Hx of colonoscopy History of nephrectomy, left History of tonsillectomy History of total knee replacement (TKR) History of transurethral resection of prostate History of cardiac catheterization History of rhinoplasty History of total right hip replacement reattachment of severed finger H/O colonoscopy stoma reversal History of colon surgery Family History Father Lung cancer Mother Parkinsons Heart failure Social History household members: spouse housing: house 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al status: employed 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: [employer] pets and animals: Yes pets and animals: cat(s) and dog(s) Smoking Status: Former smoker quit date: 06/05/98 pack-years: 72 second hand exposure: No alcohol intake: never substance use type: does not use seatbelt use: always HPI LEFT HIP Details: This documentation accurately reflects the service provided and the decisions made by me, Dr. Emory Isabel, DO 06/17/24 0831. Part of today???s visit was documented by Ely AMBROCIO, acting as scribe. ROHAN OLIVIA is a 79 year old M here today for 06/17/2024:Patient is here today for left hip pain. He had his right hip replaced by [facility]. He states that he has been having lateral left hip pain intermittently for years but the severe pain he has been having has been for the past 2 weeks. He states that his pain is over the lateral side. He denies any groin pain. Every once in awhile he does get some low back pain. Denies numbness, tingling or other associated symptoms. Patient does ambulate (more content not included)... [facility] CNOVon 06-14-2024 CNOV Office Visit (PODIWS ) ----- ROHAN OLIVIA JR. ([id number]) 1945 M Date Time Provider Department 06/14/24 1:20 PM DEBRA CASTREJON PODIWS During your visit today, we recorded the following information about you: Susana Gonsalez LPN 06/14/2024 1:31 PM Signed AMB ROOMING INTAKE FLOWSHEET DATA Patient presents with: Left Foot - Established Patient, Follow Up, nail care Right Foot - Established Patient, Follow Up, nail care VALENTE Rutledge Matthew 06/14/2024 1:31 PM Signed Subjective: Patient presents to clinic c/o painful toenails. They state that the nails are especially painful with shoe gear and pressure. Patient states that nails 1-5 b/l are painful. Patient has callus to b/l feet that causes pain. No other pedal complaints at this time. Patient states no change in medications or medical history since last visit. Objective: Patient presents to clinic ambulating in [facility] Vasc: DP and PT pulses are nonpalpable bilateral. CFT is less than 5 seconds bilateral. Skin temperature is warm to cool proximal to distal bilateral. There is no edema or varicosities noted. Neuro: Protective sensation is intact to the foot and toes when tested with the 5.07 SWM bilateral. Vibratory sensation is absent at the hallux IPJ bilateral. The hallux is downgoing bilateral. Derm: Nails 1-5 b/l are painful, discolored-yellow, thick, crumbly, dystrophic and with subungal debris. Skin is of normal turgor, texture and hair growth is absent bilateral. There are callus to b/l 5th metatarsal. no ulcerations, scars, verruca or other lesions noted. Ortho: Muscle strength is 5/5 for all pedal groups tested. Ankle joint DF is decreased with the knee extended with no pain or crepitus noted. 1st MPJ ROM is decreased bilateral. Assessment: (B35.1) Onychomycosis (primary encounter diagnosis) (M79.675) Pain in toe of left foot (M79.674) Pain in toe of right foot (L84) Callus of foot Plan: Patient was seen and evaluated. Nails 1-5 bilateral were debrided in length and thickness. Callus reduced to b/l 5th metatarsal with dremmel. Patient is to RTC in 3-4 months. Debra Castrejon DPM Referring Provider: DEBRA CASTREJON [[id number]] Allergies As of Date: 06/14/2024 (No Known Allergies) Date Reviewed: 06/14/2024 Reviewed by: Susana Gonsalez LPN - Fully Assessed Reason for Visit: Established Patient [175] Follow Up [171] nail care [Other] Established Patient [175] Follow Up [171] nail care [Other] Primary Visit Diagnosis:Onychomycosis [B35.1] Other Visit Diagnoses:Pain in toe of left foot [M79.675] Pain in toe of right foot [M79.674] Callus of foot [L84] Prescriptions as of 06/14/2024 - LORazepam (ATIVAN) 1 mg tablet Take 1 tablet by mouth at bedtime as needed for anxiety for up to 90 days. - potassium chloride SR (MICRO-K) 10 mEq CR capsule Take 1 capsule by mouth two times a day. - ipratropium bromide (ATROVENT) 42 mcg (0.06 %) nasal spray Use 2 Sprays in the nose as needed. - aspirin 81 mg cap Take 81 mg by mouth once daily. - pantoprazole DR (PROTONIX) 40 mg tablet Take 40 mg by mouth once daily. - cholestyramine/aspartame (CHOLESTYRAMINE LIGHT ORAL) Take by mouth once daily. - carbidopa-levodopa (SINEMET) 25-100 mg per tablet Take 1.5 tablets at 8AM, Noon and 4PM. - carbidopa-levodopa CR (SINEMET CR) 50-200 mg per tablet Take at 9PM nightly. - isosorbide mononitrate ER (IMDUR) 30 mg 24 hr tablet Take 1 tablet by mouth once daily. - metoprolol tartrate, short acting, (LOPRESSOR) 25 mg tablet Take 1 tablet by mouth two times a day. - atorvastatin (LIPITOR) 20 mg tablet Take 1 tablet by mouth daily at bedtime. For cholesterol. - PARoxetine (PAXIL) 20 mg tablet Take 1 tablet by mouth once daily. - ketoconazole (NIZORAL) 2 % shampoo Apply to affected area two times a week. Per Isha Bucio Derm. PRN - tamsulosin (FLOMAX) 0.4 mg Take 0.4 mg by mouth once daily. - methIMAzole (TAPAZOLE) 5 mg tablet Take 1 tablet by mouth once daily. Per Dr. Mayela Murray, endocrinology. Problem List As Of Date 06/14/2024 Noted Resolved Hypertension [I10] 05/04/2009 Anxiety [F41.9] 06/19/2009 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 Obesity [E66.9] 06/19/2009 11/17/2021 Subclinical hyperthyroidism [E05.90] 08/26/2009 06/16/2011 Seborrheic Keratoses [L82.1] 09/05/2010 07/26/2012 Actinic Damage///Sun-damaged skin [L57.8] 09/05/2010 07/26/2012 Solar lentigines [L81.4] 09/05/2010 07/26/2012 Stucco keratosis [L82.1] 09/05/2010 10/22/2015 Thyrotoxicosis without thyroid storm [E05.90] 06/19/2009 OA (osteoarthritis) of knee [M17.9] 01/24/2013 Acquired polycythemia [D75.1] 01/24/2013 Hyperlipidemia LDL goal <100 [E78.5] 10/09/2014 Ileus, postoperative (HCC) [K91.89, K56.7] 01/09/2015 07/22/2015 Enterocolitis due to Clostridium difficile [A04*05/25/2015 10/22/2015 Irritabl (more content not included)... [facility] ----- CORWINROHAN Alvarenga ([id number]) 1945 M Date Time Provider Department 06/06/24 CHRIS PEARSON JR During your visit today, we recorded the following information about you: Jyoti Dougherty LPN 06/06/2024 10:47 AM Signed ----- Message from Chris Pearson MD sent at 06/06/2024 10:43 AM EST ----- Regarding: FW: PD physical therapy It is from 05/13/24 ----- Message ----- From: Eliezer Marie, PT Sent: 06/06/2024 9:44 AM EST To: Chris Pearson Jr., MD Subject: PD physical therapy Dr Pearson, After speaking with this patient, he would like to carry out [facility]. Could you please fax the PT order over there for them so they can get scheduled? Thanks! Jyoti Ulloa LPN 06/06/2024 10:52 AM Signed Orders and face sheet faxed, confirmation received. Jyoti Dougherty LPN June 06, 2024 10:52 AM Allergies As of Date: 06/06/2024 (No Known Allergies) Date Reviewed: 05/17/2024 Reviewed by: Eli Jensen LPN - Fully Assessed Prescriptions as of 06/06/2024 - LORazepam (ATIVAN) 1 mg tablet Take 1 tablet by mouth at bedtime as needed for anxiety for up to 90 days. - potassium chloride SR (MICRO-K) 10 mEq CR capsule Take 1 capsule by mouth two times a day. - ipratropium bromide (ATROVENT) 42 mcg (0.06 %) nasal spray Use 2 Sprays in the nose as needed. - aspirin 81 mg cap Take 81 mg by mouth once daily. - pantoprazole DR (PROTONIX) 40 mg tablet Take 40 mg by mouth once daily. - cholestyramine/aspartame (CHOLESTYRAMINE LIGHT ORAL) Take by mouth once daily. - carbidopa-levodopa (SINEMET) 25-100 mg per tablet Take 1.5 tablets at 8AM, Noon and 4PM. - carbidopa-levodopa CR (SINEMET CR) 50-200 mg per tablet Take at 9PM nightly. - isosorbide mononitrate ER (IMDUR) 30 mg 24 hr tablet Take 1 tablet by mouth once daily. - metoprolol tartrate, short acting, (LOPRESSOR) 25 mg tablet Take 1 tablet by mouth two times a day. - atorvastatin (LIPITOR) 20 mg tablet Take 1 tablet by mouth daily at bedtime. For cholesterol. - PARoxetine (PAXIL) 20 mg tablet Take 1 tablet by mouth once daily. - ketoconazole (NIZORAL) 2 % shampoo Apply to affected area two times a week. Per Isha Bucio Derm. PRN - tamsulosin (FLOMAX) 0.4 mg Take 0.4 mg by mouth once daily. - methIMAzole (TAPAZOLE) 5 mg tablet Take 1 tablet by mouth once daily. Per Dr. Mayela Murray, endocrinology. Problem List As Of Date 06/06/2024 Noted Resolved Hypertension [I10] 05/04/2009 Anxiety [F41.9] 06/19/2009 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 Obesity [E66.9] 06/19/2009 11/17/2021 Subclinical hyperthyroidism [E05.90] 08/26/2009 06/16/2011 Seborrheic Keratoses [L82.1] 09/05/2010 07/26/2012 Actinic Damage///Sun-damaged skin [L57.8] 09/05/2010 07/26/2012 Solar lentigines [L81.4] 09/05/2010 07/26/2012 Stucco keratosis [L82.1] 09/05/2010 10/22/2015 Thyrotoxicosis without thyroid storm [E05.90] 06/19/2009 OA (osteoarthritis) of knee [M17.9] 01/24/2013 Acquired polycythemia [D75.1] 01/24/2013 Hyperlipidemia LDL goal <100 [E78.5] 10/09/2014 Ileus, postoperative (HCC) [K91.89, K56.7] 01/09/2015 07/22/2015 Enterocolitis due to Clostridium difficile [A04*05/25/2015 10/22/2015 Irritable bowel syndrome with diarrhea [K58.0] 10/22/2015 Flatulence [R14.3] 04/21/2016 03/16/2017 Elevated prostate specific antigen (PSA) [R97.2*04/22/2016 05/17/2024 Idiopathic peripheral neuropathy [G60.9] 10/20/2016 Dyspnea on exertion [R06.09] 10/19/2017 09/13/2018 Obesity, Class I, BMI 30-34.9 [E66.811] 10/19/2017 11/04/2022 Other pulmonary embolism with acute cor pulmona*01/30/2018 09/13/2018 Pulmonary hypertension (HCC) [I27.20] 01/30/2018 09/13/2018 Gross hematuria [R31.0] 01/30/2018 09/13/2018 Chronic midline low back pain without sciatica *04/23/2019 05/17/2024 Cervicalgia [M54.2] 04/23/2019 05/17/2024 Melanoma in situ of unspecified part of face (H*07/04/[address] on CT [R91.8] 02/26/2020 05/17/2024 Other chest pain [R07.89] 08/10/2020 09/14/2020 Coronary artery disease of [place] artery of [place]*08/24/2020 Unsteady gait [R26.81] 02/15/2021 05/17/2024 Tremors of nervous system [R25.1] 07/10/2021 11/17/2021 Chronic diarrhea [K52.9] 11/17/2021 05/17/2024 Abnormal weight loss [R63.4] 11/17/2021 08/04/2022 Parkinson's disease (HCC) [G20.A1] 11/17/2021 Renal cell cancer, 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] 05/05/2022 05/17/2024 Vasomotor rhinitis [J30.0] 08/04/2022 Platelets decreased (HCC) [D69.6] 11/04/2022 Stage 3a chronic kidney disease (HCC) [N18.31] 05/19/2023 History of renal cell cancer [Z85.528] 05/17/2024 Encounter Status:Closed by JYOTI DOUGHERTY on 06/06/24 Normal [facility] CBC panel Auto (Bld)on 05-18 Erythrocyte distribution width (RBC) [Ratio] 14.0 % Normal 11.5-15.0 [facility] Comment on above: Order Comment: Speci men Type: BLOOD SPECIMENOrdering Facility: [facility] Address: [address] [place] [address] Performed By: #### 5 8410-2 ####[facility] LABCLIA [id number] [place] [address] [place] Hematocrit (Bld) [Volume fraction] 49.4 % Normal 39.0-51.0 [facility] Comment on above: Order Comment: Speci men Type: BLOOD SPECIMENOrdering Facility: [facility] Address: [address] [place] [address] Performed By: #### 5 8410-2 ####[facility] LABCLIA [id number] [place] [address] [place] Hemoglobin (Bld) [Mass/Vol] 16.4 g/dL Normal 13.0-17.0 [facility] Comment on above: Order Comment: Speci men Type: BLOOD SPECIMENOrdering Facility: [facility] Address: [address] [place] [address] Performed By: #### 5 8410-2 ####[facility] LABCLIA [id number] [place] [address] [place] MCH (RBC) [Entitic mass] 31.2 pg Normal 26.0-34.0 [facility] Comment on above: Order Comment: Speci men Type: BLOOD SPECIMENOrdering Facility: [facility] Address: [address] [place] [address] Performed By: #### 5 8410-2 ####[facility] LABCLIA [id number] [place] [address] [place] MCHC (RBC) [Mass/Vol] 33.2 g/dL Normal 30.5-36.0 [facility] Comment on above: Order Comment: Speci men Type: BLOOD SPECIMENOrdering Facility: [facility] Address: [address] [place] [address] Performed By: #### 5 8410-2 ####[facility] LABCLIA [id number] [place] [address] [place] MCV (RBC) [Entitic vol] 93.9 fL Normal 80.0-100.0 [facility] Comment on above: Order Comment: Speci men Type: BLOOD SPECIMENOrdering Facility: [facility] Address: [address] [place] [address] Performed By: #### 5 8410-2 ####[facility] LABCLIA [id number] [place] [address] [place] Nucleated RBC (Bld) [#/Vol] 10*3/uL Normal <0.01 [facility] Comment on above: Order Comment: Speci men Type: BLOOD SPECIMENOrdering Facility: [facility] Address: [address] [place] [address] Performed By: #### 5 8410-2 ####[facility] LABIA [id number] [place] [address] [place] Platelet mean volume (Bld) [Entitic vol] 12.1 fL Normal 9.0-12.7 [facility] Comment on above: Order Comment: Speci men Type: BLOOD SPECIMENOrdering Facility: [facility] Address: [address] [place] [address] Performed By: #### 5 8410-2 ####[facility] LABCLIA [id number] [place] [address] [place] Platelets (Bld) [#/Vol] 92 10*3/uL Low 150-400 [facility] Comment on above: Order Comment: Speci men Type: BLOOD SPECIMENOrdering Facility: [facility] Address: [address] [place] [address] Result Comment: No c lot detected. Performed By: #### 5 8410-2 ####[facility] LABCLIA [id number] [place] [address] [place] RBC (Bld) [#/Vol] 5.26 10*6/uL Normal 4.20-6.00 [facility] Comment on above: Order Comment: Speci men Type: BLOOD SPECIMENOrdering Facility: [facility] Address: [address] [place] [address] Performed By: #### 5 8410-2 ####[facility] LABCLIA [id number] [place] [address] [place] WBC (Bld) [#/Vol] 6.26 10*3/uL Normal 3.70-11.00 [facility] Comment on above: Order Comment: Speci men Type: BLOOD SPECIMENOrdering Facility: [facility] Address: [address] [place] [address] Performed By: #### 5 8410-2 ####[facility] LABCLIA [id number] [place] [address] [place] Comprehensive metabolic 2000 panelon 05-18-2024 Albumin [Mass/Vol] 4.1 g/dL Normal 3.9-4.9 [facility] Comment on above: Order Comment: Speci men Type: BLOOD SPECIMENOrdering Facility: [facility] Address: [address] [place] [address] Performed By: #### 3 016-3, 12898-1, 3024-7, 41777-3 ####[facility] LABCLIA [id number] [place] [address] [place] ALP [Catalytic activity/Vol] 105 U/L Normal 38-113 [facility] Comment on above: Order Comment: Speci men Type: BLOOD SPECIMENOrdering Facility: [facility] Address: [address] [place] [address] Performed By: #### 3 016-3, 37131-1, 3023-12, ####[facility] LABCLIA [id number] [place] [address] [place] ALT [Catalytic activity/Vol] 6 U/L Low 10-54 [facility] Comment on above: Order Comment: Speci men Type: BLOOD SPECIMENOrdering Facility: [facility] Address: [address] [place] [address] Performed By: #### 3 016-3, 18526-9, 7, ####[facility] LABCLIA [id number] [place] [address] [place] Anion gap [Moles/Vol] 11 mmol/L Normal 8-15 [facility] Comment on above: Order Comment: Speci men Type: BLOOD SPECIMENOrdering Facility: [facility] Address: [address] [place] [address] Performed By: #### 3 016-3, 89530-8, 3023-12, ####[facility] LABCLIA [id number] [place] [address] [place] AST [Catalytic activity/Vol] 16 U/L Normal 14-40 [facility] Comment on above: Order Comment: Speci men Type: BLOOD SPECIMENOrdering Facility: [facility] Address: [address] [place] [address] Performed By: #### 3 016-3, 64015-7, 7, ####[facility] LABCLIA [id number] [place] [address] [place] Bilirubin [Mass/Vol] 1.0 mg/dL Normal 0.2-1.3 [facility] Comment on above: Order Comment: Speci men Type: BLOOD SPECIMENOrdering Facility: [facility] Address: [address] [place] [address] Performed By: #### 3 016-3, 84832-6, 3023-12, 44651-4 ####[facility] LABCLIA [id number] [address] [address] [place] Calcium [Mass/Vol] 9.5 mg/dL Normal 8.5-10.2 [facility] Comment on above: Order Comment: Speci men Type: BLOOD SPECIMENOrdering Facility: [facility] Address: [address] [place] [address] Performed By: #### 3 016-3, 15036-8, 3023-12, ####[facility] LABCLIA [id number] [place] [address] [place] Chloride [Moles/Vol] 104 mmol/L Normal 98-107 [facility] Comment on above: Order Comment: Speci men Type: BLOOD SPECIMENOrdering Facility: [facility] Address: [address] [place] [address] Performed By: #### 3 016-3, 07909-6, 3023-12, ####[facility] LABIA [id number] [place] [address] [place] CO2 [Moles/Vol] 25 mmol/L Normal 22-30 [facility] Comment on above: Order Comment: Speci men Type: BLOOD SPECIMENOrdering Facility: [facility] Address: [address] [place] [address] Performed By: #### 3 016-3, 63910-8, 7, ####[facility] LABCLIA [id number] [place] [id number] [place] Creatinine [Mass/Vol] 1.33 mg/dL High 0.73-1.22 [facility] Comment on above: Order Comment: Speci men Type: BLOOD SPECIMENOrdering Facility: [facility] Address: [address] [place] [address] Performed By: #### 3 016-3, 24380-4, 3024-7, 19647-1 ####[facility] LABCLIA [id number] [place] [address] [place] Creatinine and Glomerular filtration rate.predicted panel (S/P/Bld) 55 mL/min/1.73m??? Low >=60 [facility] Comment on above: Order Comment: Ortiz garrett Type: BLOOD SPECIMENOrdering Facility: [facility] Address: [address] [place] [address] Result Comment: Antonina mated Glomerular Filtration Rate (eGFR) is calculated using the 2020 CKD-EPI creatinine equation. This equation utilizes serum creatinine, sex, and age as parameters. The creatinine assay has traceable calibration to isotope dilution-mass spectrometry. Refer to KDIGO guidelines for clinical interpretation. In patients with unstable renal function, e.g. those with acute kidney injury, the eGFR may not accurately reflect actual GFR. Performed By: #### 3 016-3, 92230-7, 3024-7, 21723-6 ####[facility] LABCLIA [id number] [place] [id number] [place] Glucose [Mass/Vol] 88 mg/dL Normal 74-99 [facility] Comment on above: Order Comment: Ortiz garrett Type: BLOOD SPECIMENOrdering Facility: [facility] Address: [address] [place] [address] Result Comment: The [place] Diabetes Association (ADA) provides guidance for cutoff values for fasting glucose and random glucose. The ADA defines fasting as no caloric intake for at least 8 hours. Fasting plasma glucose results between 100 to 125 [...] Standards of Medical Care in Diabetes 2016, [place] Diabetes Association. Diabetes Care. 2016.39(Suppl 1). Performed By: #### 3 016-3, 16762-2, 7, ####[facility] LABCLIA [id number] [address] [address] [place] Potassium [Moles/Vol] 4.2 mmol/L Normal 3.7-5.1 [facility] Comment on above: Order Comment: Speci men Type: BLOOD SPECIMENOrdering Facility: [facility] Address: [address] [place] [address] Performed By: #### 3 016-3, 00056-9, 3023-12, ####[facility] LABCLIA [id number] [place] [address] [place] Protein [Mass/Vol] 6.6 g/dL Normal 6.3-8.0 [facility] Comment on above: Order Comment: Speci men Type: BLOOD SPECIMENOrdering Facility: [facility] Address: [address] [place] [address] Performed By: #### 3 016-3, 84608-8, 3023-12, ####[facility] LABIA [id number] [place] [id number] [place] Sodium [Moles/Vol] 140 mmol/L Normal 136-144 [facility] Comment on above: Order Comment: Speci men Type: BLOOD SPECIMENOrdering Facility: [facility] Address: [address] [place] [address] Performed By: #### 3 016-3, 02416-8, 3023-12, ####[facility] LABCLIA [id number] [place] [id number] [place] Urea nitrogen [Mass/Vol] 18 mg/dL Normal 9-24 [facility] Comment on above: Order Comment: Speci men Type: BLOOD SPECIMENOrdering Facility: [facility] Address: [address] [place] [address] Performed By: #### 3 016-3, 48448-8, 7, ####[facility] LABCLIA [id number] [address] [address] [place] Lipid 1996 panelon 4 Cholesterol [Mass/Vol] 105 mg/dL Normal <200 [facility] Comment on above: Order Comment: Speci men Type: BLOOD SPECIMENOrdering Facility: [facility] Address: [address] [place] [address] Result Comment: <200 mg/dL, Desirable 200-239 mg/dL, Borderline high >239 mg/dL, High Performed By: #### 3 016-3, 46654-3, 7, ####[facility] LABCLIA [id number] [address] [place] Cholesterol in HDL [Mass/Vol] 45 mg/dL Normal >39 [facility] Comment on above: Order Comment: Speci men Type: BLOOD SPECIMENOrdering Facility: [facility] Address: [address] [place] [address] Result Comment: 40-5 9 mg/dL, Acceptable >59 mg/dL, High: Negative risk factor for coronary heart disease <40 mg/dL, Low: Positive risk factor for coronary heart disease Performed By: #### 3 016-3, 74072-0, 7, ####[facility] LABCLIA [id number] [address] [place] Cholesterol in LDL [Mass/Vol] 47 mg/dL Normal <100 [facility] Comment on above: Order Comment: Speci men Type: BLOOD SPECIMENOrdering Facility: [facility] Address: [address] [place] [address] Result Comment: <100 mg/dL, Optimal 100-129 mg/dL, Near optimal/above optimal 130-159 mg/dL, Borderline high 160-189 mg/dL, High >189 mg/dL, Very high Secondary prevention optimal LDL Cholesterol levels are recommended to be < 70 mg/dL Performed By: #### 3 016-3, 65085-7, 7, ####[facility] LABCLIA [id number] [address] [address] [place] Cholesterol in LDL/Cholesterol in HDL [Mass ratio] 1.04 {ratio} Normal <2.54 [facility] Comment on above: Order Comment: Speci men Type: BLOOD SPECIMENOrdering Facility: [facility] Address: [address] [place] [address] Result Comment: Refe rence: 1. National Cholesterol Education Program ATP III Guideline At-A-Glance Quick Desk Reference: National Heart, Lung, and Blood [place]. National Institutes of Health. 2001: NIH Publication No. 01-3305. 2. An International Atherosclerosis Society position paper: global recommendations for the management of dyslipidemia: executive summary, Atherosclerosis. 2014: 232(2):410-413. Performed By: #### 3 016-3, 02146-1, 3023-12, ####[facility] LABCLIA [id number] [place] [address] [place] Cholesterol in VLDL [Mass/Vol] 13 mg/dL Normal <30 [facility] Comment on above: Order Comment: Speci men Type: BLOOD SPECIMENOrdering Facility: [facility] Address: [address] [place] [address] Performed By: #### 3 016-3, 37669-7, 7, ####[facility] LABIA [id number] [address] [address] [place] Cholesterol non HDL [Mass/Vol] 60 mg/dL Normal <130 [facility] Comment on above: Order Comment: Speci men Type: BLOOD SPECIMENOrdering Facility: [facility] Address: [address] [place] [address] Result Comment: <130 mg/dL, Optimal 130-159 mg/dL, Near optimal/above optimal 160-189 mg/dL, Borderline high 190-219 mg/dL, High >219 mg/dL, Very high Secondary prevention optimal non HDL Cholesterol levels are recommended to be <100 mg/dL Performed By: #### 3 016-3, 40636-7, 3023-12, ####[facility] LABCLIA [id number] [address] [address] [place] Cholesterol.total/Choles terol in HDL [Mass ratio] 2.33 {ratio} Normal <5.10 [facility] Comment on above: Order Comment: Speci men Type: BLOOD SPECIMENOrdering Facility: [facility] Address: [address] [place] [address] Performed By: #### 3 016-3, 57937-6, 3023-12, ####[facility] LABCLIA [id number] [address] STATES OF [facility] FASTING TIME 13 hrs Normal [facility] Comment on above: Order Comment: Speci men Type: BLOOD SPECIMENOrdering Facility: [facility] Address: [address] [place] [address] Performed By: #### 3 016-3, 49139-4, 3023-12, ####[facility] LABCLIA [id number] [place] [address] [place] Triglyceride [Mass/Vol] 66 mg/dL Normal <150 [facility] Comment on above: Order Comment: Speci men Type: BLOOD SPECIMENOrdering Facility: [facility] Address: [address] [place] [address] Result Comment: <150 mg/dL, Normal 150-199 mg/dL, Borderline high 200-499 mg/dL, High >499 mg/dL, Very high Performed By: #### 3 016-3, 08106-0, 3023-12, ####[facility] LABCLIA [id number] [place] [id number] [place] T4 Free SerPl-mCncon 024 Free T4 [Mass/Vol] 1.2 ng/dL Normal 0.9-1.7 [facility] Comment on above: Order Comment: Speci men Type: BLOOD SPECIMENOrdering Facility: [facility] Address: [address] [place] [address] Performed By: #### 3 016-3, 81228-7, 3024-7, 07973-6 ####[facility] LABCLIA [id number] [address] [place] TSH SerPl-aCncon 05-18-2024 TSH Qn 2.150 m[IU]/L Normal 0.270-4.20 0 [facility] Comment on above: Order Comment: Speci men Type: BLOOD SPECIMENOrdering Facility: [facility] Address: [address] [place] [address] Performed By: #### 3 016-3, 81184-5, 3024-7, 22287-2 ####[facility] LABIA [id number] [address] [place] CNOVon 05-17-2024 CNOV Office Visit (INTMWS ) ----- ROHAN OLIVIA JR. ([id number]) 1945 M Date Time Provider Department 05/17/24 11:00 AM BRANDON CANTOR INTMWS During your visit today, we recorded the following information about you: Pulse Blood pressure Weight Height 49/minute 128/60 85.6 kg 1.753 m Brandon Cantor MD 05/17/2024 12:15 PM Addendum You would benefit from general conditioning exercise programs such as those offered by recreation centers or the [employer]. WHAT YOU CAN DO TO PREVENT FALLS Many falls can be prevented. By making some changes, you can lower your chances of falling. Four things YOU can do to prevent falls for you* and your caregiver 1. Begin a regular exercise program Exercise is one of the most important ways to lower your chances of falling. It makes you stronger and helps you feel better. Exercises that improve balance and coordination (like Kenneth Chi) are the most helpful. Lack of exercise leads to weakness and increases your chances of falling. Ask your doctor or health care provider about the best type of exercise program for you. 2. Have your health care provider review your medicines Have your doctor or pharmacist review all the medicines you take, even ublh-jhe-kukmtxl medicines. As you get older, the way medicines work in your body can change. Some medicines, or combinations of medicines, can make you sleepy or dizzy and can cause you to fall. 3. Have your vision checked Have your eyes checked by an eye doctor at least once a year. You may be wearing the wrong glasses or have a condition like glaucoma or cataracts that limits your vision. Poor vision can increase your chances of falling. 4. Make your home safer About half of all falls happen at home. To make your home safer: Remove things you can trip over (like papers, books, clothes, and shoes) from stairs and places where you walk. Remove small throw rugs or use double-sided tape to keep the rugs from slipping. Keep items you use often in cabinets you can reach easily without using a step stool. Have grab bars put in next to your toilet and in the tub or shower. Use non-slip mats in the bathtub and on shower floors. Improve the lighting in your home. As you get older, you need brighter lights to see well. Hang light-weight curtains or shades to reduce glare. Have handrails and lights put in on all staircases. Wear shoes both inside and outside the house. Avoid going barefoot or wearing slippers. For more information, contact: Centers for Disease Control and Prevention www.cdc.gov/injury * This information may not apply if you have certain medical conditions. Screening schedule The following prevention plan is recommended: Covid-19 Vaccine() due on 02/04/2024 Serum Creatinine due on 05/16/2024 Hemoglobin/Hematocrit due on 05/16/2024 LDL Cholesterol due on 05/16/2024 Fasting blood tests soon. Brandon Cantor MD 05/17/2024 11:09 PM Signed Rohan Olivia Jr. is a 78 year old male here for a Medicare wellness visit. Medicare Health Risk Assessment General Health Fair Exercise: Minutes/Day 0 min Exercise: Days/Week 0 days Alcohol: Daily Use Never Alcohol: Drinks/Day Patient does not drink Alcohol: 6 or more drinks Never Feel off balance Yes Concerns: Teeth/Dentures No Concerns: Sexual function No Troubled by feelings Anxious Frequency: Eating healthy diet Several days ADLs requiring help Cooking; Housework; Driving Safety precautions in home/vehicle Yes Smoke, vape, chews tobacco No Difficulty hearing No Difficulty seeing No Current Providers Specialists: I have reviewed specialist-related care of the patient in the medical record. Current care team: Patient Care Team: Brandon Cantor MD as PCP - General Delicia Anton APRN.ALFREDO as Ms [employer] Developer (Internal Medicine) Douglas Mortensen MD (Cardiology) Chris Pearson Jr., MD (Neurology) Debra Castrejon DPM (Podiatry) Outside specialists seen: Blanca Obrien MD (Gastroenterology) Angel Connolly MD (Urology) Claire Herrera APRN, CNP (Dermatology, [facility]) Pascual Dawson MD (ENT) Nikhil Darling (Optometry). Jabari Phan MD (Orthopedics) Medical/Family history review Reviewed and updated problem list, medical/surgical/family/s ocial history, medications, and allergies. Opioid use review Opioid Medications (last 90 days) No data to display Anxiety/Depression screening PHQ-2 Score: 0 (Lower risk for depression) Recommendation: no further intervention at this time Cognitive screening Mini Cog Score: 4 Cognitive screening reviewed and No further action needed (score 3-5). Functional Observation Was the patient's Timed Up AND Go test unsteady or >= 12 seconds? No Advance Care Planning Patient was not able to provide a surrogate decision maker or written advance directives (more content not included)... Normal [facility] CNOVon 05-13-2024 CNOV Office Visit (NEMOWS ) ----- ROHAN OLIVIA JRJosé ([id number]) 1945 M Date Time Provider Department 05/13/24 11:00 AM CHRIS PEARSON JR During your visit today, we recorded the following information about you: Pulse Respiration Blood pressure Weight 52/minute 18/minute 146/70 86.5 kg Chris Pearson Jr., MD 05/13/2024 12:20 PM Signed ESTABLISHED PATIENT VISIT CHIEF COMPLAINT: Follow Up HISTORY OF PRESENT ILLNESS: Rohan Olivia Jr. is a 78 year old male, BMI 27.54 kg/m2 with a PMH significant for and per notes of Jose Ledbetter CNP of 08/11/22: G20 Parkinson's disease (HCC) (primary encounter diagnosis) Comment: Patient previously seen for Parkinson's disease after initial appointment and diagnosis made by movement disorder clinic. Symptoms stable at time of previous appointment, however, given concern by outside neurologist for increase in symptoms Sinemet 25-100mg was increased to 1.5 tablets TID. He reports he frequently misses afternoon and PM dose of medication, however, no significant worsening of symptoms. Exam remains stable today; minimal shuffling, no retropulsion, no tremor noted. He uses a cane for stability. Discussed importance of compliance with medication and recommend setting alarm on his phone which he has done in the past. As symptoms are stable and he has difficulty with medication, will return to one tablet TID at 0730, 1230, and 1730. Recommend continuing therapy exercises at home and staying active within limitations. G45.9 TIA (transient ischemic attack) H53.2 Diplopia R42 Vertigo Comment: Hx of TIA for which he was following with outside neurology. CTA and MRI brain completed at the time with CTA noting 70% L ICA stenosis. He has since had evaluation by vascular surgery and it was not felt that surgery was warranted. He was to continue maximization of medical care as he was doing. 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 He does report that he followed up with his PCP, however, on review of notes it appears aspirin was not restarted as there were no cardiac concerns. Discussed with the patient that ASA would be used for stroke prevention rather than for cardiac purposes. Would recommend restarting after appointment today. He remains on Lipitor as well. Of note, he reports episode of severe dizziness described as the room spinning which began 2 nights ago. Position change or movement was not a triggering factor. Symptoms persisted until the afternoon. He was seen in the ED where CT of brain was completed and unremarkable. At appointment today he also reports diplopia which appears to be present in both eyes. No other focal neurological deficits on exam. As patient has not been taking ASA in addition to history of TIA as well as exam findings, concern for stroke/TIA. MRI of brain ordered for further evaluation. Above was last neuro follow up. I have never seen patient in the past, and only neurologist on record is Dr. Simon who saw patient by virtual on 10/11/21. MRI Brain on 08/29/22 per rad report did not show an acute change or other explanation of symptoms: 1. No acute intracranial findings. 2. Presumed mild chronic microvascular ischemia and mild generalized parenchymal volume loss. No new focal neuro deficits and no complaints of vertigo or diplopia. Currently on Sinemet 25/100mg - taking 2 tabs in AM and 1 tab at bedtime. Patient returns today due to more tremors, but feels it is actually due to more freezing. Couple falls. Difficulties getting out of chairs. Needs more assist with fine motor tasks. No constipation. Very rare possible RBD symptoms. +Mother with Parkinson's disease. States shaking when gets up in the morning. Takes 2 Sinemet and by mid morning starts feeling better and tremors are not so severe, but symptoms return late afternoon. Wakes to start the day about 8AM; with bedtime of about 9-10PM. +Micro graphia. Difficulties eating. MRI brain reviewed. No significant enlargement of vents. No NPH symptoms of urinary incontinence or cognitive decline. General cortical atrophy. REVIEW OF SYSTEMS GENERAL:No weight loss, malaise or fevers. HEENT:Negative for frequent or significant headaches, No changes in hearing or vision, no nose bleeds or other nasal problems NECK:Negative for lumps, goiter, pain and significant neck swelling RESPIRATORY: Negative for cough, wheezing or shortness of breath. CARDIOVASCULAR: Negative for chest pain, leg swelling or palpitations. GASTROINTESTINAL: Negative for abdominal discomfort, blood in stools or black stools or change in bowel habits GENITOURINARY: No history of dysuria, frequency or incontinence MUSCULOSKELETAL: Negative for joint pa (more content not included)... Normal [facility] Orthopedic Visit Reporton Orthopedic Visit Report [facility] [address] [place] [address] [address] [place] [address] OFFICE VISIT Date of Service: 05/06/24 MR#: [id number] Acct: [id number] Name: ROHAN OLIVIA Rep #: [id number] : 1945 Provider: Dr. Emory carcamo DO Age/Sex: 78/M Location: [facility] Status: Signed Intake Vital Signs 04/09/24 12:02 05/06/24 13:41 Height 5 ft 10 in 5 ft 10 in Weight: 191 lb 8 oz BMI 27.4 Intake Visit Reasons: LEFT KNEE Chief Complaint: Left Knee Pain Accompanied by: Self Is patient in pain?: Yes Pain scale (1-10): 1 Allergies No Known Allergies Allergy (Verified 05/06/24 13:46) Medications ???Medication ???Instructions ???Recorded ???Confirmed ???Type metoprolol tartrate 25 mg tablet 25 mg PO DAILY heart 04/15/21 05/06/24 History potassium chloride 10 mEq 10 meq PO BID supplement 04/15/21 05/06/24 History capsule,extended release carbidopa 25 mg-levodopa 100 mg 1 tab PO TID PARKINSONS 10/18/21 05/06/24 History tablet isosorbide mononitrate 30 mg 30 mg PO DAILY ANGINA 10/18/21 05/06/24 History tablet,extended release 24 hr lorazepam 1 mg tablet (Ativan) 1 mg PO DAILY PRN Anxiety 12/01/21 05/06/24 History paroxetine HCl 20 mg tablet 20 mg PO DAILY DEPRESSION 12/07/21 05/06/24 History atorvastatin 20 mg tablet 20 mg PO QHS CHOLESTEROL 02/08/22 05/06/24 History pantoprazole 40 mg tablet,delayed 40 mg PO DAILY 30 days #30 tabs 06/14/23 05/06/24 Rx release tamsulosin 0.4 mg capsule 0.4 mg PO QHS #14 caps 08/21/23 05/06/24 Rx methimazole 5 mg tablet 5 mg PO DAILY THYROID #30 tabs 09/12/23 05/06/24 Rx cholestyramine (with sugar) 4 gram 1 g PO HS #348.6 grams 12/14/23 05/06/24 Rx oral powder [id number] 100 gram-sod sulf 7.5 240 ml PO PER PKG DIR #1 ea 12/14/23 05/06/24 Rx egpt-ZcRv-KQm-ascorbate-C oral pwdr pack (MoviPrep) aspirin 81 mg tablet,delayed 81 mg PO QDAY 05/06/24 05/06/24 History release (Adult Low Dose Aspirin) Have you fallen in the past year?: No PFSH Medical History Urinary retention Chronic cough History of Clostridium difficile infection Ambulates with cane Excessive bleeding Parkinsons disease Abnormal weight loss Melanoma in situ of unspecified part of face IBS (irritable bowel syndrome) Chronic diarrhea Thyrotoxicosis Expressive aphasia Hyperthyroidism Hypothyroidism Osteoporosis Wears glasses Wears dentures Cancer Depression Anxiety Prostate disease Pulmonary embolism Back pain Syncope Difficulty swallowing Heartburn Former smoker Shortness of breath on exertion Leg cramps History of pain when walking History of echocardiogram Cardiology follow-up encounter Hypertension Skin cancer Arthritis Change in bowel habit Polycythemia Hyperlipidemia Osteoarthritis Diarrhea Fall Hypercholesterolemia BPH (benign prostatic hyperplasia) Acute respiratory failure with hypoxia Chronic respiratory failure with hypoxia Closed right hip fracture Surgical History History of cataract extraction with lens replacement History of cholecystectomy S/P laparoscopic cholecystectomy History of esophagogastroduodenoscop y (EGD) Hx of colonoscopy History of nephrectomy, left History of tonsillectomy History of total knee replacement (TKR) History of transurethral resection of prostate History of cardiac catheterization History of rhinoplasty History of total right hip replacement reattachment of severed finger H/O colonoscopy stoma reversal History of colon surgery Family History Father Lung cancer Mother Parkinsons Heart failure Social History household members: spouse housing: house 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al status: employed 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: [employer] pets and animals: Yes pets and animals: cat(s) and dog(s) Smoking Status: Former smoker quit date: 06/05/98 pack-years: 72 second hand exposure: No alcohol intake: never substance use type: does not use seatbelt use: always HPI LEFT KNEE Details: This documentation accurately reflects the service provided and the decisions made by me, Dr. Emory Isabel, DO 05/06/24 0855. Part of today???s visit was documented by Honey Lemus ATC, acting as scribe. ROHAN OLIVIA is a 78 year old M with medical history significant for but not limited to Parkinson's, hypertension, GI bleed, left renal mass, cognitive impairment, TIA, carotid stenosis, vertigo, diastolic heart failure, anxiety on Ativan, depression, polycythemia, respiratory failure, here today for left knee pain. Patient states the knee really seems to bother him after he has been sitting for a while and goes to ge (more content not included)... Normal [facility] 04-29-2024 [facility] Telephone (INTMWS) ----- ROHAN OLIVIA JR. ([id number]) 1945 M Date Time Provider Department 04/29/24 BRANDON CANTOR INTNadiyaWS During your visit today, we recorded the following information about you: Amrita Hernandez RN 04/29/2024 2:11 PM Signed Patient calling to request letter for excuse from jury duty from [employer]. He says needs excused due to Parkinson's. He says he will shrimp picker letter when completed. Let patient know when ready. SAADIA Vargas Victor H, MD 04/29/2024 4:33 PM Signed Printed. Renea Caraballo LPN 04/29/2024 4:43 PM Signed Patient notified, letter taken to Medical Records. Renea Caraballo LPN Allergies As of Date: 04/29/2024 (No Known Allergies) Date Reviewed: 04/15/2024 Reviewed by: Saba Palmer MA - Fully Assessed Reason for Visit: Letter for excuse from jury duty [Other] Prescriptions as of 04/29/2024 - isosorbide mononitrate ER (IMDUR) 30 mg 24 hr tablet Take 1 tablet by mouth once daily. - metoprolol tartrate, short acting, (LOPRESSOR) 25 mg tablet Take 1 tablet by mouth two times a day. - atorvastatin (LIPITOR) 20 mg tablet Take 1 tablet by mouth daily at bedtime. For cholesterol. - PARoxetine (PAXIL) 20 mg tablet Take 1 tablet by mouth once daily. - potassium chloride SR (MICRO-K) 10 mEq CR capsule Take 1 capsule by mouth two times a day. - carbidopa-levodopa (SINEMET) 25-100 mg per tablet Take 1.5 tablets by mouth three times a day. - ketoconazole (NIZORAL) 2 % shampoo Apply to affected area two times a week. Per [facility] PRN - ipratropium bromide (ATROVENT) 42 mcg (0.06 %) nasal spray Use 2 Sprays in the nose four times daily. - LORazepam (ATIVAN) 1 mg tablet Take 1 tablet by mouth at bedtime as needed for anxiety for up to 90 days. - tamsulosin (FLOMAX) 0.4 mg Take 0.4 mg by mouth once daily. - methIMAzole (TAPAZOLE) 5 mg tablet Take 1 tablet by mouth once daily. Per Dr. Mayela Murray, endocrinology. Problem List As Of Date 04/29/2024 Noted Resolved Hypertension [I10] 05/04/2009 Anxiety [F41.9] 06/19/2009 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 Obesity [E66.9] 06/19/2009 11/17/2021 Subclinical hyperthyroidism [E05.90] 08/26/2009 06/16/2011 Seborrheic Keratoses [L82.1] 09/05/2010 07/26/2012 Actinic Damage///Sun-damaged skin [L57.8] 09/05/2010 07/26/2012 Solar lentigines [L81.4] 09/05/2010 07/26/2012 Stucco keratosis [L82.1] 09/05/2010 10/22/2015 Thyrotoxicosis without thyroid storm [E05.90] 06/19/2009 OA (osteoarthritis) of knee [M17.9] 01/24/2013 Acquired polycythemia [D75.1] 01/24/2013 Hyperlipidemia LDL goal <100 [E78.5] 10/09/2014 Ileus, postoperative (HCC) [K91.89, K56.7] 01/09/2015 07/22/2015 Enterocolitis due to Clostridium difficile [A04*05/25/2015 10/22/2015 Irritable bowel syndrome with diarrhea [K58.0] 10/22/2015 Flatulence [R14.3] 04/21/2016 03/16/2017 Elevated prostate specific antigen (PSA) [R97.2*04/22/2016 Idiopathic peripheral neuropathy [G60.9] 10/20/2016 Dyspnea on exertion [R06.09] 10/19/2017 09/13/2018 Obesity, Class I, BMI 30-34.9 [E66.811] 10/19/2017 11/04/2022 Other pulmonary embolism with acute cor pulmona*01/30/2018 09/13/2018 Pulmonary hypertension (HCC) [I27.20] 01/30/2018 09/13/2018 Gross hematuria [R31.0] 01/30/2018 09/13/2018 Chronic midline low back pain without sciatica *04/23/2019 Cervicalgia [M54.2] 04/23/2019 Melanoma in situ of unspecified part of face (H*07/04/[address] nodules on CT [R91.8] 02/26/2020 Other chest pain [R07.89] 08/10/2020 09/14/2020 Coronary artery disease of [place] artery of [place]*08/24/2020 Unsteady gait [R26.81] 02/15/2021 Tremors of nervous system [R25.1] 07/10/2021 11/17/2021 Chronic diarrhea [K52.9] 11/17/2021 Abnormal weight loss [R63.4] 11/17/2021 08/04/2022 Parkinson's disease (HCC) [G20.A1] 11/17/2021 Renal cell cancer, 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] 05/05/2022 Vasomotor rhinitis [J30.0] 08/04/2022 Platelets decreased (HCC) [D69.6] 11/04/2022 Stage 3a chronic kidney disease (HCC) [N18.31] 05/19/2023 Letter Text Encounter Status:Closed by RENEA CARABALLO on 04/29/24 [facility] [place] 04-15-2024 CNOV Office Visit (CAWSTR ) ----- ROHAN OLIVIA Lyle CASTILLO ([id number]) 1945 M Date Time Provider Department 04/15/24 3:20 PM DOUGLAS MORTENSEN During your visit today, we recorded the following information about you: Pulse Blood pressure Weight Height 66/minute 116/60 84.4 kg 1.772 m Douglas Mortensen MD 04/15/2024 3:51 PM Signed Douglas Mortensen MD Interventional Cardiology [address] [place] [address] [phone] Chief Complaint Patient presents with: Yearly Exam HISTORY OF PRESENT ILLNESS: Mr. Olivia is a 78 year old male seen in the office for follow-up prior history of hypertensive heart disease and hyperlipidemia with nonobstructive coronary artery disease doing well from the cardiac point of view asymptomatic denies chest pain or shortness of breath Patient is limited because of his Parkinson Cardiac Risk Factors age (male over 45, female over 55), hyperlipidemia, hypertension, family history of CAD PAST MEDICAL HISTORY Diagnosis Date Acquired polycythemia 01/24/2013 Actinic Keratosis (Premalignant AK) 09/05/2010 Acute cholecystitis 08/18/2023 Adenomatous colon polyp 10/09/2014 Anxiety 06/19/2009 BPH loc w/o Ur Obs/LUTS 06/19/2009 Chronic bronchitis (HCC) 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 Clostridium difficile diarrhea 08/21/2021 Enterocolitis due to Clostridium difficile 05/25/2015 Gross hematuria 01/30/2018 Hemarthrosis following procedure 07/23/2021 Right knee s/p TKR Hypertension 05/04/2009 Hyperthyroidism, subclinical 06/19/2009 OA (osteoarthritis) of knee 01/24/2013 Obesity 06/19/2009 Obesity, Class I, BMI 30-34.9 10/19/2017 Other chest pain Sandrita Mortensen MD. Cath /[facility] 08/20/2020. 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 11/17/2021 PAST SURGICAL HISTORY Procedure Laterality Date COLONOSCOPY AND POLYPECTOMY 01/13/2017 COLONOSCOPY AND POLYPECTOMY 04/26/2022 COLONOSCOPY FLX DX W/COLLJ SPEC WHEN PFRMD 10/01/2014 Colonoscopy F COLONOSCOPY WITH BIOPSY 10/12/2018 biopsy negative, repeat 5 years L'SCOPE CHOLECYSTECTOMY 08/18/2023 LAP - RADICAL NEPHRECTOMY Left 02/16/2022 LAP STOMA CLOSURE, ILEOSTOMY 04/13/2015 closure of loop ileostomy LEFT HEART CATH,PERCUTANEOUS 08/20/2020 PAST SURGICAL HISTORY OF 03/1973 Right 4th digit reattachment PAST SURGICAL HISTORY OF 01/01/2015 Rectal/sigmoid resection RHINP PRIM LATANDALAR CRTLGSAND/ELVTN NASAL TI 1954 Rhinoplasty, nasal fracture TONSILLECTOMY PRIMARY/SECONDARY Tonsillectomy TOTAL HIP JOINT REPLACEMENT Right 01/12/2018 TOTAL KNEE REPLACEMENT Right 07/21/2021 TRANSURETHRAL ELEC-SURG PROSTATECTOM 05/14/2021 FAMILY HISTORY Problem Relation Age of Onset Psychiatry Mother Anxiety COPD Mother Heart Mother Heart failure, age 94 other (Other) Mother Parkinson's Cancer Father lung cancer, age 86 Psychiatry Sister Panic attacks Emphysema Maternal Grandfather 50 years working on [employer], coal smoke inhalation. Asthma Maternal Grandfather Colon Cancer Other Maternal 1st cousin age 40s Social History Tobacco Use Smoking status: Former Current packs/day: 0.00 Average packs/day: 2.0 packs/day for 35.0 years (70.0 ttl pk-yrs) Types: Cigarettes Start date: 1964 Quit date: 07/05/1998 Years since quittin.7 Smokeless tobacco: Never Vaping Use Vaping status: Never Used Substance Use Topics Alcohol use: No Drug use: No ALLERGIES No Known Allergies Medications: Current Outpatient Medications Medication Sig Dispense Refill isosorbide mononitrate ER (IMDUR) 30 mg 24 hr tablet Take 1 tablet by mouth once daily. 90 tablet 3 metoprolol tartrate, short acting, (LOPRESSOR) 25 mg tablet Take 1 tablet by mouth two times a day. 180 tablet 3 atorvastatin (LIPITOR) 20 mg tablet Take 1 tablet by mouth daily at bedtime. For cholesterol. 90 tablet 3 PARoxetine (PAXIL) 20 mg tablet Take 1 tablet by mouth once daily. 90 tablet 3 potassium chloride SR (MICRO-K) 10 mEq CR capsule Take 1 capsule by mouth two times a day. 180 capsule 3 carbidopa-levodopa (SINEMET) 25-100 mg per tablet Take 1.5 tablets by mouth three times a day. 405 tablet 1 ketoconazole (NIZORAL) 2 % shampoo Apply to affected area two times a week. Per [facility]. PRN ipratropium bromide (ATROVENT) 42 mcg (0.06 %) nasal spray Use 2 Sprays in the nose four times daily. (Patient taking differently: Use 2 Sprays in the nose as needed.) 15 mL 5 LORazepam (ATIV (more content not included)... Normal [facility] Colonoscopy Reporton 024 Colonoscopy Report [facility] Medical Records Department [address] [place] [address] Colonoscopy Report MR#: [id number] Acct: [id number] Name: ROHAN OLIVIA Rep #: [id number] : 1945 78 From: James Obrien DO PCP: Dr. Brandon Cantor MD Status:[facility] Patient Name: Rohan Olivia Procedure Date: 04/09/2024 12:44 PM Date of : 1945 Age: 78 Procedure: Colonoscopy Indications: Chronic diarrhea Providers: James Obrien DO Referring MD: James Obrien DO Medicines: Monitored Anesthesia Care Patient Profile: This is a 78 year old male. Refer to note in patient chart for documentation of history and physical. Last Colonoscopy: date unknown. Unable to locate last colonoscopy report. Complications: No immediate complications. Procedure: Pre-Anesthesia Assessment: - Prior to the procedure, a History and Physical was performed, and patient medications and allergies were reviewed. The patient is competent. The risks and benefits of the procedure and the sedation options and risks were discussed with the patient. All questions were answered and informed consent was obtained. Patient identification and proposed procedure were verified by the physician in the pre-procedure area. Mental Status Examination: alert and oriented. Airway Examination: normal oropharyngeal airway and neck mobility. Respiratory Examination: clear to auscultation. CV Examination: normal. Prophylactic Antibiotics: The patient does not require prophylactic antibiotics. Prior Anticoagulants: The patient has taken no anticoagulant or antiplatelet agents. ASA Grade Assessment: III - A patient with severe systemic disease. After reviewing the risks and benefits, the patient was deemed in satisfactory condition to undergo the procedure. The anesthesia plan was to use monitored anesthesia care (MAC). Immediately prior to administration of medications, the patient was re-assessed for adequacy to receive sedatives. The heart rate, respiratory rate, oxygen saturations, blood pressure, adequacy of pulmonary ventilation, and response to care were monitored throughout the procedure. The physical status of the patient was re-assessed after the procedure. After I obtained informed consent, the scope was passed under direct vision. Throughout the procedure, the patient's blood pressure, pulse, and oxygen saturations were monitored continuously. The colonoscope was introduced through the anus and advanced to the terminal ileum. The colonoscopy was performed without difficulty. The patient tolerated the procedure well. The quality of the bowel preparation was fair. The terminal ileum, ileocecal valve, appendiceal orifice, and rectum were photographed. Scope In: 1:16:30 PM Scope Withdrawal Time 0 hours 5 minutes 31 seconds Scope Out: 1:26:21 PM Total Procedure Duration Time 0 hours 9 minutes 51 seconds Findings: The digital rectal exam findings include decreased sphincter tone. Two sessile polyps were found in the splenic flexure and ascending colon. The polyps were 5 mm in size. These polyps were removed with a jumbo cold forceps. Resection and retrieval were complete. Verification of patient identification for the specimen was done. Estimated blood loss was minimal. An area of mildly congested mucosa was found in the recto-sigmoid colon, in the sigmoid colon and at the splenic flexure. Biopsies were taken with a cold forceps for histology. Verification of patient identification for the specimen was done. Estimated blood loss was minimal. Stool was found in the rectum, in the recto-sigmoid colon, in the sigmoid colon, in the descending colon, in the ascending colon and in the cecum. Patchy mild inflammation was found in the terminal ileum. Biopsies were taken with a cold forceps for histology. Verification of patient identification for the specimen was done. Estimated blood loss was minimal. Impression: - Preparation of the colon was fair. - Decreased sphincter tone found on digital rectal exam. - Two 5 mm polyps at the splenic flexure and in the ascending colon, removed with a jumbo cold forceps. Resected and retrieved. - Congested mucosa in the recto-sigmoid colon, in the sigmoid colon and at the splenic flexure. Biopsied. - Stool in the rectum, in the recto-sigmoid colon, in the sigmoid colon, in the descending colon, in the ascending colon and in the cecum. - Mild inflammation was found in the ileum secondary to ileitis. Biopsied. Recommendation: - Discharge patient to home. - Resume previous diet. - Continue present medications. - Await pathology results. - Repeat colonoscopy in 1 year for surveillance. Procedure Code(s): --- Professional --- 47471, Colonoscopy, flexible; with biopsy, single or multiple CPT copyright 2021 [employer]. All r (more content not included)... Normal [facility] MR/POSTOP.James 04-09-2024 MR/POSTOP.[facility] [facility] [place] Medical Records Department [address] [place] [address] Anesthesia Postop Eval I 04/09/24 1333 MR#: [id number] Acct: [id number] Name: ROHAN OLIVIA W Rep #: [id number] : 1945 78 From: Laure Beverly CRNA PCP: Dr. Brandon Cantor MD Status:[facility] Y Race: C Location: [place] [address] Anesthesia: Postop Eval I Current Vital Signs Temperature: 97.8 F Pulse Rate: 66 Blood Pressure: 104/68 Respiratory Rate: 14 Pulse Ox: 94 Oxygen Delivery Method: Nasal Cannula Oxygen Flow Rate (L/min): 4 Assessment Airway patent: Yes Spontaneous unlabored respirations: Yes Mental status: Awake nausea: No Vomiting: No Anesthesia Complication: No Fluid Hydration Crystalloid volume administer (ml): 20 Total IV fluid infused: 20 Progress Note Anesthesia document: Postop Eval 1 completed: Yes 04/09/24 1334 Date Laure Beverly CERTIFIED LEGAL INVESTIGATOR Cosigner Signature: Date CC: Signed [facility] MR/[id number] 04-09-2024 [facility] Medical Records Department [address] [place] [address] Anesthesia Postop Eval II 04/09/24 1630 MR#: [id number] Acct: [id number] Name: ROHAN OLIVIA W Rep #: [id number] : 1945 78 From: Farshad Mcclure MD PCP: Dr. Brandon Cantor MD Status:[facility] Y Race: C Location: EN Anesthesia Postop Eval I Sum Postop Eval Completion status Anesthesia document: Postop Eval 1 completed: Yes Anesthesia Postop Eval I Summary Anesthesia Postop Eval I Summary: Anesthesia Postop Eval I: Assessment Summary Airway patent Yes 04/09/24 13:34 CERTIFIED LEGAL INVESTIGATOR.HBARR Spontaneous unlabored Yes 04/09/24 13:34 CERTIFIED LEGAL INVESTIGATOR.HBARR respirations Mental status Awake 04/09/24 13:34 CERTIFIED LEGAL INVESTIGATOR.HBARR nausea No 04/09/24 13:34 CERTIFIED LEGAL INVESTIGATOR.HBARR Vomiting No 04/09/24 13:34 CERTIFIED LEGAL INVESTIGATOR.HBARR Anesthesia Postop Eval I: Fluid Summary Crystalloid volume administer 20 04/09/24 13:34 CERTIFIED LEGAL INVESTIGATOR.HBARR (ml) Colloids volume administered ( ml) Blood Product volume administered (ml) Total IV fluid infused 20 04/09/24 13:34 CERTIFIED LEGAL INVESTIGATOR.HBARR Anesthesia Postop Eval I: Summary Notes Anesthesia Complication No 04/09/24 13:34 CERTIFIED LEGAL INVESTIGATOR.HBARR Anesthesia Complication Comment: Post-operative progress note Anesthesia: Postop Eval II Evaluation Mental status: Awake Pain Level: 0 nausea: No Vomiting: No 04/09/24 1630 Date Farshad Balderrama Signature: Date CC: Signed [facility] Surgery Specimen Level Dwayne 04-09-2024 Surgery Specimen Level IV Patient Age/Sex Location Account Attending Physician ROHAN OLIVIA 78/M [place] [id number] James Obrien DO Specimen: [id number] Received: 04/09/24 Status: RAY Pepe Num: [id number] Spec Type: COLON BX Subm Dr: James Obrien DO HEADER OPERATION: Colonscopy with biopsies PRE-OP DIAGNOSIS: Diarrhea TISSUE SUBMITTED: A- Splenic flexure polyp biopsy, B- Ascending colon polyp biopsy, C- Terminal ileum biopsy, D- Random colon biopsy MICROSCOPIC DIAGNOSIS A. Splenic flexure polyp, biopsy: Tubular adenoma. B. Ascending colon polyp, biopsy: Fragments of tubular adenoma. C. Terminal ileum, biopsy: Fragments of small intestinal mucosa, no pathologic diagnosis. D. Colon, random biopsy: Fragments of colonic mucosa, no pathologic diagnosis. 04/11/2024 MICROSCOPIC DESCRIPTION Slides are reviewed. GROSS DESCRIPTION A. Received in fixative is one container labeled with the patient's name and designated Splenic flexure polyp biopsy. The specimen consists of multiple irregular fragments of light brandt soft tissue that in aggregate measure 1.0 x 0.3 x 0.1 cm. The specimen is totally submitted in one cassette. B. Received in fixative is one container labeled with the patient's name and designated Ascending colon polyp biopsy. The specimen consists of multiple irregular fragments of light brandt soft tissue that in aggregate measure 0.8 x 0.4 x 0.1 cm. The specimen is totally submitted in one cassette. C. Received in fixative is one container labeled with the patient's name and designated Terminal ileum biopsy. The specimen consists of multiple irregular fragments of light brandt soft tissue that in aggregate measure 0.4 x 0.2 x 0.1 cm. The specimen is totally submitted in one cassette. D. Received in fixative is one container labeled with the patient's name and designated Random colon biopsy. The specimen consists of multiple irregular fragments of light brandt soft tissue that in aggregate measure 0.6 x 0.4 x 0.1 cm. The specimen is totally submitted in one cassette. 04/10/2024 TC:1 CPT:16676v1 Patient Age/Sex Location Account Attending Physician ROHAN OLIVIA 78/M [place] [id number] James Obrien DO Signed (signature on file) Dr. David Baxter MD 04/11/24 1310 [facility] Comment on above: Performed By: #### P SUIV ####[facility] [id number] [place], [address] CNOVon 03-11-2024 CNOV Office Visit (PODIWS ) ----- ROHAN OLIVIA JR. ([id number]) 1945 M Date Time Provider Department 03/11/24 2:00 PM DEBRA CASTREJON PODIWS During your visit today, we recorded the following information about you: Daja Huerta, SAADIA 03/11/2024 9:53 PM Signed AMB ROOMING INTAKE FLOWSHEET DATA Pain Pain Level: 3 Pain Location: Foot-Right Comments: States bunion pain Patient presents with: Left Foot - Established Patient, Follow Up, nail care Right Foot - Established Patient, Follow Up, nail care Patient presents for follow up nail care. ELEONORA 12/04/23 Debra Castrejon 03/11/2024 9:53 PM Signed Subjective: Patient presents to clinic c/o painful toenails. They state that the nails are especially painful with shoe gear and pressure. Patient states that nails 1-5 b/l are painful. No other pedal complaints at this time. Patient states no change in medications or medical history since last visit. Objective: Patient presents to clinic ambulating in sneakers Vasc: DP and PT pulses are palpable bilateral. CFT is less than 5 seconds bilateral. Skin temperature is warm to cool proximal to distal bilateral. There is mild edema or varicosities noted. Neuro: Protective sensation is intact to the foot and toes when tested with the 5.07 SWM bilateral. Vibratory sensation is decreased at the hallux IPJ bilateral. The hallux is downgoing bilateral. Derm: Nails 1-5 b/l are painful, discolored-yellow, thick, crumbly, dystrophic and with subungal debris. Skin is of normal turgor, texture and hair growth is present bilateral. There are no hyperkeratosis, ulcerations, scars, verruca or other lesions noted. Ortho: Muscle strength is 5/5 for all pedal groups tested. Ankle joint DF is full with the knee extended with no pain or crepitus noted. 1st MPJ ROM is full bilateral. Assessment: (B35.1) Onychomycosis (primary encounter diagnosis) (M79.675) Pain in toe of left foot (M79.674) Pain in toe of right foot Plan: Patient was seen and evaluated. Nails 1-5 bilateral were debrided in length and thickness. Patient is to RTC in 3-4 months. Debra Castrejon DPM Referring Provider: DEBRA CASTREJON [[id number]] Allergies As of Date: 03/11/2024 (No Known Allergies) Date Reviewed: 03/11/2024 Reviewed by: Daja Huerta RN - Fully Assessed Reason for Visit: Established Patient [175] Follow Up [171] nail care [Other] Established Patient [175] Follow Up [171] nail care [Other] Primary Visit Diagnosis:Onychomycosis [B35.1] Other Visit Diagnoses:Pain in toe of left foot [M79.675] Pain in toe of right foot [M79.674] Prescriptions as of 03/11/2024 - atorvastatin (LIPITOR) 20 mg tablet Take 1 tablet by mouth daily at bedtime. For cholesterol. - PARoxetine (PAXIL) 20 mg tablet Take 1 tablet by mouth once daily. - potassium chloride SR (MICRO-K) 10 mEq CR capsule Take 1 capsule by mouth two times a day. - carbidopa-levodopa (SINEMET) 25-100 mg per tablet Take 1.5 tablets by mouth three times a day. - ketoconazole (NIZORAL) 2 % shampoo Apply to affected area two times a week. Per [facility]. PRN - ipratropium bromide (ATROVENT) 42 mcg (0.06 %) nasal spray Use 2 Sprays in the nose four times daily. - isosorbide mononitrate ER (IMDUR) 30 mg 24 hr tablet Take 1 tablet by mouth once daily. - metoprolol tartrate, short acting, (LOPRESSOR) 25 mg tablet Take 1 tablet by mouth two times a day. - LORazepam (ATIVAN) 1 mg tablet Take 1 tablet by mouth at bedtime as needed for anxiety for up to 90 days. - tamsulosin (FLOMAX) 0.4 mg Take 0.4 mg by mouth once daily. - methIMAzole (TAPAZOLE) 5 mg tablet Take 1 tablet by mouth once daily. Per Dr. Mayela Murray, endocrinology. - Cholecalciferol, Vitamin D3, 25 mcg (1,000 unit) cap Take 1,000 Units by mouth once daily. 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 [facility] Gastroenterology Visit Repor ton 12-14-2023 Gastroenterology Visit Report [facility] Gastroenterology [address] [place] [address] OFFICE VISIT Date of Service: 12/14/23 MR#: [id number] Acct: [id number] Name: ROHAN OLIVIA Rep #: [id number] : 1945 Provider: James Obrien DO Age/Sex: 78/M Location: [facility] Status: Signed Intake Vital Signs 04/19/23 10:02 09/12/23 13:10 Height 5 ft 10 in 5 ft 10 in Weight: 190 lb BMI 27.2 BP 113/67 Blood Pressure Location Lt brachial Position Sitting Pulse 52 L Pulse Source Monitor Temp 98.4 F Temp Source Temporal Pulse Oximetry (%) 99 Oxygen Delivery Method room air Intake Visit Reasons: 6 M FU Chief Complaint: Hyperthyroidism Allergies No Known Allergies Allergy (Verified 09/12/23 13:13) Medications ???Medication ???Instructions ???Recorded ???Confirmed ???Type metoprolol tartrate 25 mg tablet 25 mg PO DAILY heart 04/15/21 12/14/23 History potassium chloride 10 mEq 10 meq PO BID supplement 04/15/21 12/14/23 History capsule,extended release cholecalciferol (vitamin D3) 25 25 mcg PO DAILY health maintenance 07/07/21 12/14/23 History mcg (1,000 unit) tablet (Vitamin D3) carbidopa 25 mg-levodopa 100 mg 1 tab PO TID PARKINSONS 10/18/21 12/14/23 History tablet isosorbide mononitrate 30 mg 30 mg PO DAILY ANGINA 10/18/21 12/14/23 History tablet,extended release 24 hr lorazepam 1 mg tablet (Ativan) 1 mg PO DAILY PRN Anxiety 12/01/21 12/14/23 History paroxetine HCl 20 mg tablet 20 mg PO DAILY DEPRESSION 12/07/21 12/14/23 History atorvastatin 20 mg tablet 20 mg PO QHS CHOLESTEROL 02/08/22 12/14/23 History pantoprazole 40 mg tablet,delayed 40 mg PO DAILY 30 days #30 tabs 06/14/23 12/14/23 Rx release tramadol 50 mg tablet 50 mg PO Q6H PRN pain #10 tabs 08/18/23 12/14/23 Rx tamsulosin 0.4 mg capsule 0.4 mg PO QHS #14 caps 08/21/23 12/14/23 Rx methimazole 5 mg tablet 5 mg PO DAILY THYROID #30 tabs 09/12/23 12/14/23 Rx cholestyramine (with sugar) 4 gram 1 g PO HS #348.6 grams 12/14/23 12/14/23 Rx oral powder simethicone 250 mg capsule 250 mg PO BID #60 caps 12/14/23 12/14/23 Rx Have you fallen in the past year?: No PFSH Medical History Abnormal weight loss Acute respiratory failure with hypoxia Ambulates with cane Anxiety Arthritis Back pain BPH (benign prostatic hyperplasia) Cancer Cardiology follow-up encounter Change in bowel habit Chronic cough Chronic diarrhea Chronic respiratory failure with hypoxia Closed right hip fracture Depression Diarrhea Difficulty swallowing Excessive bleeding Expressive aphasia Fall Former smoker Heartburn History of Clostridium difficile infection History of echocardiogram History of pain when walking Hypercholesterolemia Hyperlipidemia Hypertension Hyperthyroidism Hypothyroidism IBS (irritable bowel syndrome) Leg cramps Melanoma in situ of unspecified part of face Osteoarthritis Osteoporosis Parkinsons disease Polycythemia Prostate disease Pulmonary embolism Shortness of breath on exertion Skin cancer Syncope Thyrotoxicosis Urinary retention Wears dentures Wears glasses Surgical History H/O colonoscopy History of cardiac catheterization History of colon surgery History of esophagogastroduodenoscop y (EGD) History of nephrectomy, left History of rhinoplasty History of tonsillectomy History of total knee replacement (TKR) History of total right hip replacement History of transurethral resection of prostate Hx of colonoscopy reattachment of severed finger S/P laparoscopic cholecystectomy stoma reversal Family History Father Lung cancer Mother Parkinsons Heart failure Social History household members: spouse housing: house 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al status: employed 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: [employer] pets and animals: Yes pets and animals: cat(s) and dog(s) Smoking Status: Former smoker quit date: 06/05/98 pack-years: 72 second hand exposure: No alcohol intake: never substance use type: does not use seatbelt use: always HPI HPI Chief Complaint: Hyperthyroidism Details: ROHAN OLIVIA, is a 78 M who presents to the office today for follow up. [facility] ED 11.14.21 with suspicion of repeat pseudomembranous enterocolitis. Prior imaging: CT abd/pel 01.06.22 for abdominal pain/ renal cancer finding multiple gallstones; multiple hypodensities of liver; evidence of prior small bowel surgery; renal mass, recommend MRI/CT. *BGI established 03.01.22 with watery loose stools, abdominal cramping and weight loss for a year. Weight loss largely r/t several hospitalizations for kidney, prostate and knee (more content not included)... [facility] No Panel InformationOrdered By: Marquis Murray on 09-12-2023 Free Triiodothyronine (T3) pg/dL 2.1 pg/mL 2.18-3.98 [facility] Serum or plasma thyroid stim ulating hormone (TSH) measurement (units/volume)Ordered By: Marquis Murray on 09-12-2023 TSH Qn 0.84 uIU/mL 0.358-3.74 [facility] Thin prep Papanicolaou smear with manual screeningOrdered By: Marquis Murray on 09-12-2023 Thin prep Papanicolaou smear with manual screening 1.00 ng/dL 0.76-1.46 [facility] Absolute lymphocyte countOrd ered By: Wisam Bella on 08-18-2023 Lymphocytes Auto (Unsp spec) [#/Vol] 0.86 10*3/uL 0.83-4.51 [facility] Automated lymphocyte count a s percentage of total leukocytesOrdered By: Wisam Bella on 08-18-2023 Lymphocytes/100 WBC Auto (Unsp spec) 9.4 % 19-41 [facility] Basophil percentageOrdered B y: Wisam Bella on 08-18-2023 Lactate [Moles/Vol] 1.1 mmol/L 0.4-2.0 [facility] Basophils/100 WBC (Bld) 0.7 % 0-1 [facility] Bilirubin [Mass/Vol] 0.90 mg/dL 0.20-1.00 [facility] Comment on above: For patients on eltr ombopag therapy, use of [facility] TBIL is not recommended. Chloride [Moles/Vol] 107 mmol/L 98-107 [facility] Eosinophils/100 WBC (Bld) 1.8 % 0-5 [facility] Glucose [Mass/Vol] 111 mg/dL 74-106 [facility] Comment on above: Fasting Glucose resu lt from 100 to 125 mg/dL suggests IMPAIRED HOMEOSTASIS per A.D.A. criteria. Hemoglobin (Bld) [Mass/Vol] 16.0 g/dL 13.0-16.5 [facility] Monocytes/100 WBC (Bld) 7.1 % 0-10 [facility] Neutrophils (Bld) [#/Vol] 7.4 10*3/uL 2.0-7.7 [facility] Neutrophils/100 WBC (Bld) 80.6 % 47-70 [facility] Potassium [Moles/Vol] 3.9 mmol/L 3.5-5.1 [facility] Protein [Mass/Vol] 7.0 g/dL 6.4-8.2 [facility] Sodium [Moles/Vol] 142 mmol/L 136-145 [facility] WBC (Bld) [#/Vol] 9.1 10*3/uL 4.4-11.0 [facility] Determination of erythrocyte mean corpuscular volume (MCV)Ordered By: Wisam Bella on 08-18-2023 MCV (RBC) [Entitic vol] 91.7 fL 80-94 [facility] Direct bilirubinOrdered By: Wisam Bella on 08-18-2023 Bilirubin.direct [Mass/Vol] 0.24 mg/dL 0.00-0.30 [facility] Erythrocyte distribution wid th ratioOrdered By: Wisam Bella on 08-18-2023 Erythrocyte distribution width (RBC) [Ratio] 14.1 % 11.6-14.6 [facility] Erythrocyte distribution wid th standard deviationOrdered By: Wisam Bella on 08-18-2023 Erythrocyte distribution width (RBC) [Entitic vol] 47.7 fL 35.1-43.9 [facility] Hematocrit Auto (Bld) [Volum e fraction]Ordered By: Wisam Bella on 08-18-2023 Hematocrit (Bld) [Volume fraction] 48.4 % 40-54 [facility] Immature granulocytes/100 WB C Auto (Bld)Ordered By: Wisam Bella on 08-18-2023 Immature granulocytes/100 WBC (Bld) 0.400 % 0.0-0.9 [facility] Comment on above: IG% - Immature Granu locytes (promyelocytes, myelocytes and metamyelocytes) > 1% indicates that a LEFT SHIFT is Present. Laboratory - Chemistry and C hemistry - challengeOrdered By: Wisam Bella on 08-18-2023 ALP [Catalytic activity/Vol] 96 U/L 45-117 [facility] ALT [Catalytic activity/Vol] U/L 16-61 [facility] CO2 [Moles/Vol] 29.0 mmol/L 21.0-32.0 [facility] Globulin (S) [Mass/Vol] 3.2 g/dL 2.2-4.2 [facility] Lipase [Catalytic activity/Vol] 64 U/L 13-75 [facility] Comment on above: Please note:LIPASE r evised reference range effective 22. New Lipase methodology. Expected to produce lower values than the previous assay method. NEW Reference Range: 13 - 75 U/L Urea nitrogen/Creatinine [Mass ratio] 12.3 mg/mg 10-20 [facility] Laboratory - Hematology and Cell countsOrdered By: Wisam Bella on 08-18-2023 MCH (RBC) [Entitic mass] 30.3 pg 27.0-32.0 [facility] MCHC (RBC) [Mass/Vol] 33.1 g/dL 32-36 [facility] Nucleated RBC/100 WBC (Bld) [Ratio] 0 % 0-5 [facility] Platelet mean volume (Bld) [Entitic vol] 10.9 fL 6.2-12.0 [facility] Platelets (Bld) [#/Vol] 150 10*3/uL 150-450 [facility] No Panel InformationOrdered By: Wisam Bella on 08-18-2023 Estimated Creatinine Clearance Calc 40.82 ml/min [facility] Estimated GFR (MDRD) Amer 56 mL/min >60 [facility] Comment on above: GFR Calc Estimated GFR (MDRD) Non-Af Amer 47 mL/min >60 [facility] Comment on above: Non- GFR Calc RBC Auto (Bld) [#/Vol]Ordere d By: Wisam Bella on 08-18-2023 RBC (Bld) [#/Vol] 5.28 10*6/uL 4.6-6.2 [facility] Serum or plasma calcium mey urement (mass/volume)Ordered By: Wisam eBlla on 08-18-2023 Calcium [Mass/Vol] 9.5 mg/dL 8.5-10.1 [facility] Serum or plasma creatinine m easurement (mass/volume)Ordered By: Wisam Bella on 08-18-2023 Creatinine [Mass/Vol] 1.54 mg/dL 0.70-1.30 [facility] Comment on above: The validity of the calculated GFR & GFRAA in patients over 70 years has not been determined. Clinical correlation is essential. Serum or plasma urea nitroge n measurement (mass/volume)Ordered By: Wisam Bella on 08-18-2023 Urea nitrogen [Mass/Vol] 19 mg/dL 7-18 [facility] Thin prep Papanicolaou smear with manual screeningOrdered By: Wisam Bella on 08-18-2023 Thin prep Papanicolaou smear with manual screening 3.8 g/dL 3.2-5.0 [facility] Thin prep Papanicolaou smear with manual screening 14 U/L 15-37 [facility] Thin prep Papanicolaou smear with manual screening 6 5-15 [facility] Basophil percentageOrdered B y: Gio Connolly on 06-15-2023 Chloride [Moles/Vol] 109 mmol/L 98-107 [facility] Glucose [Mass/Vol] 82 mg/dL 74-106 [facility] Potassium [Moles/Vol] 4.3 mmol/L 3.5-5.1 [facility] Sodium [Moles/Vol] 142 mmol/L 136-145 [facility] WBC (Bld) [#/Vol] 6.6 10*3/uL 4.4-11.0 [facility] Blood erythrocytes count (nu mber/volume)Ordered By: Gio Connolly on 06-15-2023 RBC (Bld) [#/Vol] 5.16 10*6/uL 4.6-6.2 [facility] Blood hemoglobin measurement (mass/volume)Ordered By: Gio Connolly on 06-15-2023 Hemoglobin (Bld) [Mass/Vol] 15.7 g/dL 13.0-16.5 [facility] Blood platelet mean volumeOr dered By: Gio Connolly on 06-15-2023 Platelet mean volume (Bld) [Entitic vol] 12.7 fL 6.2-12.0 [facility] Determination of erythrocyte mean corpuscular volume (MCV)Ordered By: Gio Connolly on 06-15-2023 MCV (RBC) [Entitic vol] 93.4 fL 80-94 [facility] Hematocrit Auto (Bld) [Volum e fraction]Ordered By: Gio Connolly on 06-15-2023 Hematocrit (Bld) [Volume fraction] 48.2 % 40-54 [facility] Laboratory - Chemistry and C hemistry - challengeOrdered By: Gio Connolly on 06-15-2023 CO2 [Moles/Vol] 30.0 mmol/L 21.0-32.0 [facility] Urea nitrogen/Creatinine [Mass ratio] 13.2 mg/mg 10-20 [facility] Laboratory - Hematology and Cell countsOrdered By: Gio Connolly on 06-15-2023 Erythrocyte distribution width (RBC) [Entitic vol] 46.4 fL 35.1-43.9 [facility] Erythrocyte distribution width (RBC) [Ratio] 13.4 % 11.6-14.6 [facility] MCH (RBC) [Entitic mass] 30.4 pg 27.0-32.0 [facility] MCHC Auto (RBC) [Mass/Vol]Or dered By: Gio Connolly on 06-15-2023 MCHC (RBC) [Mass/Vol] 32.6 g/dL 32-36 [facility] No Panel InformationOrdered By: Gio Connolly on 06-15-2023 Estimated GFR (MDRD) Amer 57 mL/min >60 [facility] Comment on above: GFR Calc Estimated GFR (MDRD) Non-Af Amer 47 mL/min >60 [facility] Comment on above: Non- GFR Calc Prostate Specific Antigen Screen 2.34 ng/mL 0.00-4.00 [facility] Comment on above: This test was perfor med using the TPSA assay method for thePlastyc chemistry system. Values obtained with differentassay methods cannot be used interchangably.When changing PSA assays in the course of monitoring apatient, additional sequential testing should be carriedout to confirm baseline values. Platelets bldOrdered By: Matthew Connolly on 06-15-2023 Platelets (Bld) [#/Vol] 111 10*3/uL 150-450 [facility] Serum or plasma calcium mey urement (mass/volume)Ordered By: Gio Connolly on 06-15-2023 Calcium [Mass/Vol] 9.5 mg/dL 8.5-10.1 [facility] Serum or plasma creatinine m easurement (mass/volume)Ordered By: Gio Connolly on 06-15-2023 Creatinine [Mass/Vol] 1.52 mg/dL 0.70-1.30 [facility] Comment on above: The validity of the calculated GFR & GFRAA in patients over 70 years has not been determined. Clinical correlation is essential. Serum or plasma urea nitroge n measurement (mass/volume)Ordered By: Gio Connolly on 06-15-2023 Urea nitrogen [Mass/Vol] 20 mg/dL 7-18 [facility] Thin prep Papanicolaou smear with manual screeningOrdered By: Gio Connolly on 06-15-2023 Thin prep Papanicolaou smear with manual screening 3 5-15 [facility] Laboratory - Chemistry and C hemistry - challengeOrdered By: Marquis Murray on 03-09-2023 Free T4 [Mass/Vol] 0.85 ng/dL 0.76-1.46 [facility] No Panel InformationOrdered By: Marquis Murray on 03-09-2023 Free Triiodothyronine (T3) pg/dL 2.1 pg/mL 2.18-3.98 [facility] Thyroid Stimulating Hormone (TSH) 2.09 uIU/mL 0.358-3.74 [facility] Serum or plasma gastrin mey urement (mass/volume)Ordered By: James Obrien on 02-02-2023 Gastrin [Mass/Vol] 26 pg/mL 0-115 [facility] Comment on above: Siemens Immulite 200 0 Immunochemiluminometric assay (ICMA)Values obtained with different assay methods or kits cannotbe used interchangeably. Results cannot be interpreted asabsolute evidence of the presence or absence of malignantdisease.Performed at: [facility] [id number] Director: Jw Hernandez MD, Phone: [phone] Basophil percentageOrdered B y: Gio Connolly on 12-12-2022 Bilirubin [Mass/Vol] 0.70 mg/dL 0.20-1.00 [facility] Comment on above: For patients on eltr ombopag therapy, use of [facility] TBIL is not recommended. Chloride [Moles/Vol] 109 mmol/L 98-107 [facility] Glucose [Mass/Vol] 80 mg/dL 74-106 [facility] Potassium [Moles/Vol] 4.7 mmol/L 3.5-5.1 [facility] Protein [Mass/Vol] 6.7 g/dL 6.4-8.2 [facility] Sodium [Moles/Vol] 139 mmol/L 136-145 [facility] Laboratory - Chemistry and C hemistry - challengeOrdered By: Gio Connolly on 12-12-2022 ALP [Catalytic activity/Vol] 102 U/L 45-117 [facility] ALT [Catalytic activity/Vol] 8 U/L 16-61 [facility] CO2 [Moles/Vol] 30.0 mmol/L 21.0-32.0 [facility] Globulin (S) [Mass/Vol] 3.3 g/dL 2.2-4.2 [facility] Urea nitrogen/Creatinine [Mass ratio] 13.2 mg/mg 10-20 [facility] No Panel InformationOrdered By: Gio Connolly on 12-12-2022 Estimated GFR (MDRD) Amer 55 mL/min >60 [facility] Comment on above: GFR Calc Estimated GFR (MDRD) Non-Af Amer 45 mL/min >60 [facility] Comment on above: Non- GFR Calc Prostate Specific Antigen Total 3.61 ng/mL 0.0-4.0 [facility] Comment on above: This test was perfor med using the TPSA assay method for the[employer] chemistry system. Values obtained with differentassay methods cannot be used interchangably.When changing PSA assays in the course of monitoring apatient, additional sequential testing should be carriedout to confirm baseline values. Serum or plasma albumin mey urement (mass/volume)Ordered By: Gio Connolly on 12-12-2022 Albumin [Mass/Vol] 3.4 g/dL 3.2-5.0 [facility] Serum or plasma albumin/glob ulin mass ratioOrdered By: Gio Connolly on 12-12-2022 Albumin/Globulin [Mass ratio] 1.0 {ratio} 0.9-2.4 [facility] Serum or plasma calcium mey urement (mass/volume)Ordered By: Gio Connolly on 12-12-2022 Calcium [Mass/Vol] 9.2 mg/dL 8.5-10.1 [facility] Serum or plasma creatinine m easurement (mass/volume)Ordered By: Gio Connolly on 12-12-2022 Creatinine [Mass/Vol] 1.59 mg/dL 0.70-1.30 [facility] Comment on above: The validity of the calculated GFR & GFRAA in patients over 70 years has not been determined. Clinical correlation is essential. Serum or plasma urea nitroge n measurement (mass/volume)Ordered By: Gio Connolly on 12-12-2022 Urea nitrogen [Mass/Vol] 21 mg/dL 7-18 [facility] Thin prep Papanicolaou smear with manual screeningOrdered By: Gio Connolly on 12-12-2022 Thin prep Papanicolaou smear with manual screening 16 U/L 15-37 [facility] Thin prep Papanicolaou smear with manual screening 0 5-15 [facility] No Panel InformationOrdered By: James Obrien on 11-23-2022 Miscellaneous Test See comment [facility] Comment on above: TEST RESULTS LIMITSV asculitis Profile (RDL)Anti-Nuclear Ab by IFA (RDL)A, Positive Abnormal NegativeHomogeneous Pattern A, 1:160 High <1:40Speckled Pattern A, 1:160 High <1:40Note: NICOLE performed by Indirect Fluorescent Antibody (IFA)ANCA by IFA (RDL) Negative PvybsbshZhht-KP-2 Ab (RDL) <20 Units <20Anti-MPO Ab (RDL) <20 Units <20Anti-GBM Ab (RDL) <20 Units <20Rheumatoid Factor by Turb RDL <14 IU/mL <14Anti-dsDNA Ab by Hunter(RDL) A, <8.0 IU/mL <8.0C3 Complement (RDL) 109 mg/dL 82-167C4 Complement (RDL) 23 mg/dL 14-44CommentsA: This test was developed and its performance characteristics determined by [facility]. It has not been cleared or approved by the Food and DrugAdministration. [facility] ORIGINAL REPORT ON FILE IN LAB CONTAINS ADDITIONAL TEST SITE INFORMATION. Laboratory - Chemistry and C hemistry - challengeOrdered By: Dr. Murray on 09-20-2022 Free T4 [Mass/Vol] 0.88 ng/dL 0.76-1.46 [facility] No Panel InformationOrdered By: Dr. Murray on 09-20-2022 Free Triiodothyronine (T3) pg/dL 2.0 pg/mL 2.18-3.98 [facility] Thyroid Stimulating Hormone (TSH) 1.86 uIU/mL 0.358-3.74 [facility] MRI BRAIN WO IVCONon 023 [facility] Absolute lymphocyte countOrd ered By: Dr. Fox on 08-10-2022 Lymphocytes Auto (Unsp spec) [#/Vol] 0.77 10*3/uL 0.83-4.51 [facility] Basophil percentageOrdered B y: Dr. Fox on 08-10-2022 Basophils/100 WBC (Bld) 0.5 % 0-1 [facility] Chloride [Moles/Vol] 107 mmol/L 98-107 [facility] Eosinophils/100 WBC (Bld) 0.9 % 0-5 [facility] Glucose [Mass/Vol] 94 mg/dL 74-106 [facility] Neutrophils (Bld) [#/Vol] 5.4 10*3/uL 2.0-7.7 [facility] Neutrophils/100 WBC (Bld) 81.0 % 47-70 [facility] Potassium [Moles/Vol] 3.9 mmol/L 3.5-5.1 [facility] Sodium [Moles/Vol] 140 mmol/L 136-145 [facility] WBC (Bld) [#/Vol] 6.6 10*3/uL 4.4-11.0 [facility] Blood erythrocytes count (nu mber/volume)Ordered By: Dr. Fox on 08-10-2022 RBC (Bld) [#/Vol] 5.70 10*6/uL 4.6-6.2 [facility] Blood hemoglobin measurement (mass/volume)Ordered By: Dr. Fox on 08-10-2022 Hemoglobin (Bld) [Mass/Vol] 17.7 g/dL 13.0-16.5 [facility] Blood lymphocytes/100 leukoc ytesOrdered By: Dr. Fox on 08-10-2022 Lymphocytes/100 WBC (Bld) 11.6 % 19-41 [facility] Blood monocytes/100 leukocyt esOrdered By: Dr. Fox on 08-10-2022 Monocytes/100 WBC (Bld) 5.7 % 0-10 [facility] Blood platelet mean volumeOr dered By: Dr. Fox on 08-10-2022 Platelet mean volume (Bld) [Entitic vol] 11.0 fL 6.2-12.0 [facility] Determination of erythrocyte mean corpuscular volume (MCV)Ordered By: Dr. Fox on 08-10-2022 MCV (RBC) [Entitic vol] 92.1 fL 80-94 [facility] Glucose Glucometer (BldC) [M ass/Vol]Ordered By: Dr. Fox on 08-10-2022 Glucose [Mass/Vol] 97 mg/dL 74-106 [facility] Comment on above: MANAGEMENT OF PATIEN T CARE PER NURSING PROTOCOL Hematocrit Auto (Bld) [Volum e fraction]Ordered By: Dr. Fxo on 08-10-2022 Hematocrit (Bld) [Volume fraction] 52.5 % 40-54 [facility] Laboratory - Chemistry and C hemistry - challengeOrdered By: Dr. Fox on 08-10-2022 CO2 [Moles/Vol] 27.0 mmol/L 21.0-32.0 [facility] Urea nitrogen/Creatinine [Mass ratio] 13.3 mg/mg 10-20 [facility] Laboratory - Hematology and Cell countsOrdered By: Dr. Fox on 08-10-2022 Erythrocyte distribution width (RBC) [Entitic vol] 47.0 fL 35.1-43.9 [facility] Erythrocyte distribution width (RBC) [Ratio] 13.7 % 11.6-14.6 [facility] Immature granulocytes/100 WBC (Bld) 0.300 % 0.0-0.9 [facility] Comment on above: IG% - Immature Granu locytes (promyelocytes, myelocytes and metamyelocytes) > 1% indicates that a LEFT SHIFT is Present. MCH (RBC) [Entitic mass] 31.1 pg 27.0-32.0 [facility] Nucleated RBC/100 WBC (Bld) [Ratio] 0 % 0-5 [facility] MCHC Auto (RBC) [Mass/Vol]Or dered By: Dr. Fox on 08-10-2022 MCHC (RBC) [Mass/Vol] 33.7 g/dL 32-36 [facility] No Panel InformationOrdered By: Dr. Fox on 08-10-2022 Estimated Creatinine Clearance Calc 44.67 ml/min [facility] Estimated GFR (MDRD) Amer 62 mL/min >60 [facility] Comment on above: GFR Calc Estimated GFR (MDRD) Non-Af Amer 51 mL/min >60 [facility] Comment on above: Non- GFR Calc Platelets bldOrdered By: Dr. Fox on 08-10-2022 Platelets (Bld) [#/Vol] 143 10*3/uL 150-450 [facility] Serum or plasma calcium mey urement (mass/volume)Ordered By: Dr. Fox on 08-10-2022 Calcium [Mass/Vol] 10.0 mg/dL 8.5-10.1 [facility] Serum or plasma creatinine m easurement (mass/volume)Ordered By: Dr. Fox on 08-10-2022 Creatinine [Mass/Vol] 1.43 mg/dL 0.70-1.30 [facility] Comment on above: The validity of the calculated GFR & GFRAA in patients over 70 years has not been determined. Clinical correlation is essential. Serum or plasma urea nitroge n measurement (mass/volume)Ordered By: Dr. Fox on 08-10-2022 Urea nitrogen [Mass/Vol] 19 mg/dL 7-18 [facility] Thin prep Papanicolaou smear with manual screeningOrdered By: Dr. Fox on 08-10-2022 Thin prep Papanicolaou smear with manual screening 6 5-15 [facility] Clostridium difficile detect ion by polymerase chain reactionOrdered By: Ninoska Tyler on 06-27-2022 C. difficile DNA YOLANDA+probe Ql (Unsp spec) [facility] No Panel InformationOrdered By: Ninoska Tyler on 06-27-2022 Stool Calprotectin <16 ug/g 0-120 [facility] Comment on above: Concentration Interp retation Follow-Up<16 - 50 ug/g Normal None>50 -120 ug/g Borderline Re-evaluate in 4-6 weeks >120 ug/g Abnormal Repeat as clinically indicatedPerformed at: [facility] [id number] Director: Jw Hernandez MD, Phone: [phone] Stool lactoferrin detection by immunoassayOrdered By: Ninoska Tyler on 06-27-2022 Lactoferrin IA Ql (Stl) [facility] Absolute lymphocyte countOrd ered By: Ninoska Tyler on 06-23-2022 Lymphocytes Auto (Unsp spec) [#/Vol] 0.75 10*3/uL 0.83-4.51 [facility] Atypical perinuclear antineu trophil cytoplasmic antibodies measurementOrdered By: Ninoska Tyler on 06-23-2022 Neutrophil cytoplasmic Ab.perinuclear.atypical IF (S) [Titer] <1:20 titer Neg:<1:20 [facility] Comment on above: The atypical pANCA p attern has been observed in asignificant percentage of patients with ulcerative colitis,primary sclerosing cholangitis and autoimmune hepatitis.Performed at: - [facility] [address] [id number] Director: Rich England PhD, Phone: [phone] at: - [facility] [address] [id number] Director: Jw Hernandez MD, Phone: [phone] Basophil percentageOrdered B y: Ninoska Tyler on 06-23-2022 Basophil percentage < 0.2 AI 0.0-0.9 [facility] Basophils/100 WBC (Bld) 0.8 % 0-1 [facility] Bilirubin [Mass/Vol] 0.70 mg/dL 0.20-1.00 [facility] Comment on above: For patients on eltr ombopag therapy, use of [facility] TBIL is not recommended. Chloride [Moles/Vol] 108 mmol/L 98-107 [facility] Eosinophils/100 WBC (Bld) 2.4 % 0-5 [facility] Glucose [Mass/Vol] 77 mg/dL 74-106 [facility] LDH [Catalytic activity/Vol] 172 U/L 87-241 [facility] Neutrophils (Bld) [#/Vol] 4.7 10*3/uL 2.0-7.7 [facility] Neutrophils/100 WBC (Bld) 76.2 % 47-70 [facility] Potassium [Moles/Vol] 4.3 mmol/L 3.5-5.1 [facility] Protein [Mass/Vol] 6.8 g/dL 6.4-8.2 [facility] Sodium [Moles/Vol] 141 mmol/L 136-145 [facility] WBC (Bld) [#/Vol] 6.2 10*3/uL 4.4-11.0 [facility] Blood erythrocytes count (nu mber/volume)Ordered By: Ninoska Tyler on 06-23-2022 RBC (Bld) [#/Vol] 4.82 10*6/uL 4.6-6.2 [facility] Blood hemoglobin measurement (mass/volume)Ordered By: Ninoska Tyler on 06-23-2022 Hemoglobin (Bld) [Mass/Vol] 15.1 g/dL 13.0-16.5 [facility] Blood lymphocytes/100 leukoc ytesOrdered By: Ninoska Tyler on 06-23-2022 Lymphocytes/100 WBC (Bld) 12.2 % 19-41 [facility] Blood monocytes/100 leukocyt esOrdered By: Ninoska Tyler on 06-23-2022 Monocytes/100 WBC (Bld) 8.1 % 0-10 [facility] Blood platelet mean volumeOr dered By: Ninoska Tyler on 06-23-2022 Platelet mean volume (Bld) [Entitic vol] 11.4 fL 6.2-12.0 [facility] Determination of erythrocyte mean corpuscular volume (MCV)Ordered By: Ninoska Tyler on 06-23-2022 MCV (RBC) [Entitic vol] 94.4 fL 80-94 [facility] Erythrocyte sedimentation ra teOrdered By: Ninoska Tyler on 06-23-2022 ESR (Bld) [Velocity] 4 mm/h 0-20 [facility] Hematocrit Auto (Bld) [Volum e fraction]Ordered By: Ninoska Tyler on 06-23-2022 Hematocrit (Bld) [Volume fraction] 45.5 % 40-54 [facility] Laboratory - Chemistry and C hemistry - challengeOrdered By: Ninoska Tyler on 06-23-2022 ALP [Catalytic activity/Vol] 99 U/L 45-117 [facility] ALT [Catalytic activity/Vol] 11 U/L 16-61 [facility] CO2 [Moles/Vol] 31.0 mmol/L 21.0-32.0 [facility] Globulin (S) [Mass/Vol] 3.3 g/dL 2.2-4.2 [facility] Urea nitrogen/Creatinine [Mass ratio] 14.5 mg/mg 10-20 [facility] Laboratory - Hematology and Cell countsOrdered By: Ninoska Tyler on 06-23-2022 Erythrocyte distribution width (RBC) [Entitic vol] 51.6 fL 35.1-43.9 [facility] Erythrocyte distribution width (RBC) [Ratio] 14.8 % 11.6-14.6 [facility] Immature granulocytes/100 WBC (Bld) 0.300 % 0.0-0.9 [facility] Comment on above: IG% - Immature Granu locytes (promyelocytes, myelocytes and metamyelocytes) > 1% indicates that a LEFT SHIFT is Present. MCH (RBC) [Entitic mass] 31.3 pg 27.0-32.0 [facility] Nucleated RBC/100 WBC (Bld) [Ratio] 0 % 0-5 [facility] MCHC Auto (RBC) [Mass/Vol]Or dered By: Ninoska Tyler on 06-23-2022 MCHC (RBC) [Mass/Vol] 33.2 g/dL 32-36 [facility] No Panel InformationOrdered By: iNnoska Tyler on 06-23-2022 Centromere B Antibody <0.2 AI 0.0-0.9 [facility] Endomysial IgA Antibody Negative Negative [facility] Estimated GFR (MDRD) Amer 61 mL/min >60 [facility] Comment on above: GFR Calc Estimated GFR (MDRD) Non-Af Amer 50 mL/min >60 [facility] Comment on above: Non- GFR Calc Immunoglobulin E 31 IU/mL 6-495 [facility] GAMING DEPARTMENT HEAD Antibody 0.5 AI 0.0-0.9 [facility] Platelets bldOrdered By: Marlene Tyler on 06-23-2022 Platelets (Bld) [#/Vol] 169 10*3/uL 150-450 [facility] Serum DNA double strand anti body assay (units/volume)Ordered By: Ninoska Tyler on 06-23-2022 DNA double strand Ab Qn (S) [IU]/mL 0-9 [facility] Comment on above: Negative <5 Equivoca l 5 - 9 Positive >9 Serum Mireya-1 antibody assay (u nits/volume)Ordered By: Ninoska Tyler on 06-23-2022 Mireya-1 extractable nuclear Ab Qn (S) <0.2 AI 0.0-0.9 [facility] Serum Scl-70 extractable nuc lear antibody assay (units/volume)Ordered By: Ninoska Tyler on 06-23-2022 SCL-70 extractable nuclear Ab Qn (S) <0.2 AI 0.0-0.9 [facility] Serum Gonsalez extractable nucl ear antibody detectionOrdered By: Ninoska Tyler on 06-23-2022 Gonsalez extractable nuclear Ab Ql (S) <0.2 AI 0.0-0.9 [facility] Serum classic neutrophil cyt oplasmic antibody assay (units/volume)Ordered By: Ninoska Tyler on 06-23-2022 Neutrophil cytoplasmic Ab.classic Qn (S) <1:20 titer Neg:<1:20 [facility] Serum or plasma C reactive p rotein measurement (mass/volume)Ordered By: Ninoska Tyler on 06-23-2022 CRP [Mass/Vol] mg/L 0.0-3.0 [facility] Comment on above: C-Reactive Protein ( CRP) provides useful information for thediagnosis, therapy and monitoring of inflammatory processesand associated diseases. For the evaluation of Relative Riskfor Cardiovascular Disease, a High Sensitivity CRP (HSCRP)should be ordered. Serum or plasma IgA measurem ent (mass/volume)Ordered By: Ninoska Tyler on 06-23-2022 IgA [Mass/Vol] 177 mg/dL 61-437 [facility] Serum or plasma IgG measurem ent (mass/volume)Ordered By: Ninoska Tyler on 06-23-2022 IgG [Mass/Vol] 997 mg/dL 603-1613 [facility] Serum or plasma IgM measurem ent (mass/volume)Ordered By: Ninoska Tyler on 06-23-2022 IgM [Mass/Vol] 16 mg/dL 15-143 [facility] Comment on above: Result confirmed on concentration. Serum or plasma albumin mey urement (mass/volume)Ordered By: Ninoska Tyler on 06-23-2022 Albumin [Mass/Vol] 3.5 g/dL 3.2-5.0 [facility] Serum or plasma albumin/glob ulin mass ratioOrdered By: Ninoska Tyler on 06-23-2022 Albumin/Globulin [Mass ratio] 1.1 {ratio} 0.9-2.4 [facility] Serum or plasma calcium mey urement (mass/volume)Ordered By: Ninoska Tyler on 06-23-2022 Calcium [Mass/Vol] 9.2 mg/dL 8.5-10.1 [facility] Serum or plasma creatinine m easurement (mass/volume)Ordered By: Ninoska Tyler on 06-23-2022 Creatinine [Mass/Vol] 1.45 mg/dL 0.70-1.30 [facility] Comment on above: The validity of the calculated GFR & GFRAA in patients over 70 years has not been determined. Clinical correlation is essential. Serum or plasma urea nitroge n measurement (mass/volume)Ordered By: Ninoska Tyler on 06-23-2022 Urea nitrogen [Mass/Vol] 21 mg/dL 7-18 [facility] Serum perinuclear neutrophil cytoplasmic antibody titer by immunofluorescenceOrdered By: Ninoska Tyler on 06-23-2022 Neutrophil cytoplasmic Ab.perinuclear IF (S) [Titer] 1:160 titer Neg:<1:20 [facility] Comment on above: The presence of posi tive fluorescence exhibiting P-ANCA orC-ANCA patterns alone is not specific for the diagnosis ofWegener's Granulomatosis (WG) or microscopic polyangiitis.Decisions about treatment should not be based solely onANCA IFA results. The International ANCA Group Consensusrecommends follow up testing of positive sera with both MT-3 and MPO-ANCA enzyme immunoassays. As many as 5% serumsamples are positive only by EIA. Ref. AM J Clin Ehphnd1285;111:507-513. Serum tissue transglutaminas e IgA antibody assay (units/volume)Ordered By: Ninoska Tyler on 06-23-2022 tTG IgA Qn (S) <2 U/mL 0-3 [facility] Comment on above: Negative 0 - 3 Weak Positive 4 - 10 Positive >10 Tissue Transglutaminase (tTG) has been identified as the endomysial antigen. Studies have demonstr- ated that endomysial IgA antibodies have over 99% specificity for gluten sensitive enteropathy. Thin prep Papanicolaou smear with manual screeningOrdered By: Ninoska Tyler on 06-23-2022 Thin prep Papanicolaou smear with manual screening 13 U/L 15-37 [facility] Thin prep Papanicolaou smear with manual screening 2 5-15 [facility] Basophil percentageOrdered B y: Dr. Connolly on 06-07-2022 Bilirubin [Mass/Vol] 0.70 mg/dL 0.20-1.00 [facility] Comment on above: For patients on eltr ombopag therapy, use of [facility] TBIL is not recommended. Chloride [Moles/Vol] 107 mmol/L 98-107 [facility] Glucose [Mass/Vol] 97 mg/dL 74-106 [facility] Potassium [Moles/Vol] 4.5 mmol/L 3.5-5.1 [facility] Protein [Mass/Vol] 6.9 g/dL 6.4-8.2 [facility] Sodium [Moles/Vol] 141 mmol/L 136-145 [facility] Laboratory - Chemistry and C hemistry - challengeOrdered By: Dr. Murray on 06-07-2022 Free T4 [Mass/Vol] 0.85 ng/dL 0.76-1.46 [facility] Laboratory - Chemistry and C hemistry - challengeOrdered By: Dr. Connolly on 06-07-2022 ALP [Catalytic activity/Vol] 100 U/L 45-117 [facility] ALT [Catalytic activity/Vol] 8 U/L 16-61 [facility] CO2 [Moles/Vol] 32.0 mmol/L 21.0-32.0 [facility] Globulin (S) [Mass/Vol] 3.3 g/dL 2.2-4.2 [facility] Urea nitrogen/Creatinine [Mass ratio] 15.8 mg/mg 10-20 [facility] No Panel InformationOrdered By: Dr. Murray on 06-07-2022 Free Triiodothyronine (T3) pg/dL 2.2 pg/mL 2.18-3.98 [facility] Thyroid Stimulating Hormone (TSH) 1.95 uIU/mL 0.358-3.74 [facility] No Panel InformationOrdered By: Dr. Connolly on 06-07-2022 Estimated GFR (MDRD) Amer 64 mL/min >60 [facility] Comment on above: GFR Calc Estimated GFR (MDRD) Non-Af Amer 53 mL/min >60 [facility] Comment on above: Non- GFR Calc Prostate Specific Antigen Total 1.73 ng/mL 0.0-4.0 [facility] Comment on above: This test was perfor med using the TPSA assay method for [employer] chemistry system. Values obtained with differentassay methods cannot be used interchangably.When changing PSA assays in the course of monitoring apatient, additional sequential testing should be carriedout to confirm baseline values. Serum or plasma albumin mey urement (mass/volume)Ordered By: Dr. Connolly on 06-07-2022 Albumin [Mass/Vol] 3.6 g/dL 3.2-5.0 [facility] Serum or plasma albumin/glob ulin mass ratioOrdered By: Dr. Connolly on 06-07-2022 Albumin/Globulin [Mass ratio] 1.1 {ratio} 0.9-2.4 [facility] Serum or plasma calcium mey urement (mass/volume)Ordered By: Dr. Connolly on 06-07-2022 Calcium [Mass/Vol] 9.4 mg/dL 8.5-10.1 [facility] Serum or plasma creatinine m easurement (mass/volume)Ordered By: Dr. Connolly on 06-07-2022 Creatinine [Mass/Vol] 1.39 mg/dL 0.70-1.30 [facility] Comment on above: The validity of the calculated GFR & GFRAA in patients over 70 years has not been determined. Clinical correlation is essential. Serum or plasma urea nitroge n measurement (mass/volume)Ordered By: Dr. Connolly on 06-07-2022 Urea nitrogen [Mass/Vol] 22 mg/dL 7-18 [facility] Thin prep Papanicolaou smear with manual screeningOrdered By: Dr. Connolly on 06-07-2022 Thin prep Papanicolaou smear with manual screening 12 U/L 15-37 [facility] Thin prep Papanicolaou smear with manual screening 2 5-15 [facility] Absolute lymphocyte countOrd ered By: Dr. Ordonez on 05-01-2022 Lymphocytes Auto (Unsp spec) [#/Vol] 0.82 10*3/uL 0.83-4.51 [facility] Basophil percentageOrdered B y: Dr. Ordonez on 05-01-2022 Basophils/100 WBC (Bld) 0.6 % 0-1 [facility] Bilirubin [Mass/Vol] 1.00 mg/dL 0.20-1.00 [facility] Comment on above: For patients on eltr ombopag therapy, use of [facility] TBIL is not recommended. Chloride [Moles/Vol] 105 mmol/L 98-107 [facility] Eosinophils/100 WBC (Bld) 4.1 % 0-5 [facility] Glucose [Mass/Vol] 88 mg/dL 74-106 [facility] Neutrophils (Bld) [#/Vol] 4.6 10*3/uL 2.0-7.7 [facility] Neutrophils/100 WBC (Bld) 72.3 % 47-70 [facility] Potassium [Moles/Vol] 3.7 mmol/L 3.5-5.1 [facility] Comment on above: Moderate Hemolysis, Result may be falsely increased. Protein [Mass/Vol] 6.5 g/dL 6.4-8.2 [facility] Sodium [Moles/Vol] 140 mmol/L 136-145 [facility] WBC (Bld) [#/Vol] 6.3 10*3/uL 4.4-11.0 [facility] Blood erythrocytes count (nu mber/volume)Ordered By: Dr. Ordonez on 05-01-2022 RBC (Bld) [#/Vol] 5.05 10*6/uL 4.6-6.2 [facility] Blood hemoglobin measurement (mass/volume)Ordered By: Dr. Ordonez on 05-01-2022 Hemoglobin (Bld) [Mass/Vol] 15.1 g/dL 13.0-16.5 [facility] Blood lymphocytes/100 leukoc ytesOrdered By: Dr. Ordonez on 05-01-2022 Lymphocytes/100 WBC (Bld) 13.0 % 19-41 [facility] Blood monocytes/100 leukocyt esOrdered By: Dr. Ordonez on 05-01-2022 Monocytes/100 WBC (Bld) 9.8 % 0-10 [facility] Blood platelet mean volumeOr dered By: Dr. Ordonez on 05-01-2022 Platelet mean volume (Bld) [Entitic vol] 10.9 fL 6.2-12.0 [facility] Determination of erythrocyte mean corpuscular volume (MCV)Ordered By: Dr. Ordonez on 05-01-2022 MCV (RBC) [Entitic vol] 92.3 fL 80-94 [facility] Hematocrit Auto (Bld) [Volum e fraction]Ordered By: Dr. Ordonez on 05-01-2022 Hematocrit (Bld) [Volume fraction] 46.6 % 40-54 [facility] Laboratory - Chemistry and C hemistry - challengeOrdered By: Dr. Ordonez on 05-01-2022 ALP [Catalytic activity/Vol] 92 U/L 45-117 [facility] ALT [Catalytic activity/Vol] 8 U/L 16-61 [facility] CO2 [Moles/Vol] 31.0 mmol/L 21.0-32.0 [facility] Globulin (S) [Mass/Vol] 3.2 g/dL 2.2-4.2 [facility] [facility] Urea nitrogen/Creatinine [Mass ratio] 14.2 mg/mg 10-20 [facility] - Hematology and Cell countsOrdered By: Dr. Ordonez on 05-01-2022 Erythrocyte distribution width (RBC) [Entitic vol] 50.8 fL 35.1-43.9 [facility] Erythrocyte distribution width (RBC) [Ratio] 14.8 % 11.6-14.6 [facility] Immature granulocytes/100 WBC (Bld) 0.200 % 0.0-0.9 [facility] Comment on above: IG% - Immature Granu locytes (promyelocytes, myelocytes and metamyelocytes) > 1% indicates that a LEFT SHIFT is Present. MCH (RBC) [Entitic mass] 29.9 pg 27.0-32.0 [facility] Nucleated RBC/100 WBC (Bld) [[facility]] 0 [facility] [Mass/Vol]Or dered By: Dr. Ordonez on 05-01-2022 MCHC (RBC) [Mass/Vol] 32.4 g/dL 32-36 [facility] No Panel InformationOrdered By: Dr. Ordonez on 05-01-2022 Estimated Creatinine Clearance Calc 48.42 ml/min [facility] Estimated GFR (MDRD) Amer 67 mL/min >60 [facility] Comment on above: GFR Calc Estimated GFR (MDRD) Non-Af Amer 55 mL/min >60 [facility] Comment on above: Non- GFR Calc Platelets bldOrdered By: Dr. Ordonez on 05-01-2022 Platelets (Bld) [#/Vol] 139 10*3/uL 150-450 [facility] Serum or plasma albumin mey urement (mass/volume)Ordered By: Dr. Ordonez on 05-01-2022 Albumin [Mass/Vol] 3.3 g/dL 3.2-5.0 [facility] Serum or plasma albumin/glob ulin mass ratioOrdered By: Dr. Ordonez on 05-01-2022 Albumin/Globulin [Mass ratio] 1.0 {ratio} 0.9-2.4 [facility] Serum or plasma calcium mey urement (mass/volume)Ordered By: Dr. Ordonez on 05-01-2022 Calcium [Mass/Vol] 9.3 mg/dL 8.5-10.1 [facility] Serum or plasma creatinine m easurement (mass/volume)Ordered By: Dr. Ordonez on 05-01-2022 Creatinine [Mass/Vol] 1.34 mg/dL 0.70-1.30 [facility] Comment on above: The validity of the calculated GFR & GFRAA in patients over 70 years has not been determined. Clinical correlation is essential. Serum or plasma urea nitroge n measurement (mass/volume)Ordered By: Dr. Ordonez on 05-01-2022 Urea nitrogen [Mass/Vol] 19 mg/dL 7-18 [facility] Thin prep Papanicolaou smear with manual screeningOrdered By: Dr. Ordonez on 05-01-2022 Thin prep Papanicolaou smear with manual screening 13 U/L 15-37 [facility] Comment on above: Moderate Hemolysis, Result may be falsely increased. Thin prep Papanicolaou smear with manual screening 4 5-15 [facility] Basophil percentageOrdered B y: Dr. Ordonez on 04-30-2022 Basophil percentage 2.6 mg/dL 2.5-4.9 [facility] Absolute lymphocyte countOrd ered By: Dr. Connolly on 02-18-2022 Lymphocytes Auto (Unsp spec) [#/Vol] 0.56 10*3/uL 0.83-4.51 [facility] Basophil percentageOrdered B y: Dr. Connolly on 02-18-2022 Basophils/100 WBC (Bld) 0.3 % 0-1 [facility] Chloride [Moles/Vol] 107 mmol/L 98-107 [facility] Eosinophils/100 WBC (Bld) 5.0 % 0-5 [facility] Glucose [Mass/Vol] 107 mg/dL 74-106 [facility] Comment on above: Fasting Glucose resu lt from 100 to 125 mg/dL suggests IMPAIRED HOMEOSTASIS per A.D.A. criteria. Neutrophils (Bld) [#/Vol] 5.9 10*3/uL 2.0-7.7 [facility] Neutrophils/100 WBC (Bld) 77.7 % 47-70 [facility] Potassium [Moles/Vol] 4.2 mmol/L 3.5-5.1 [facility] Sodium [Moles/Vol] 139 mmol/L 136-145 [facility] WBC (Bld) [#/Vol] 7.6 10*3/uL 4.4-11.0 [facility] Blood erythrocytes count (nu mber/volume)Ordered By: Dr. Connolly on 02-18-2022 RBC (Bld) [#/Vol] 4.60 10*6/uL 4.6-6.2 [facility] Blood hemoglobin measurement (mass/volume)Ordered By: Dr. Connolly on 02-18-2022 Hemoglobin (Bld) [Mass/Vol] 13.8 g/dL 13.0-16.5 [facility] Blood lymphocytes/100 leukoc ytesOrdered By: Dr. Connolly on 02-18-2022 Lymphocytes/100 WBC (Bld) 7.4 % 19-41 [facility] Blood monocytes/100 leukocyt esOrdered By: Dr. Connolly on 02-18-2022 Monocytes/100 WBC (Bld) 9.2 % 0-10 [facility] Blood platelet adequacy dete ction by light microscopyOrdered By: Dr. Connolly on 02-18-2022 Platelets LM Ql (Bld) ADEQUATE ADEQ [facility] Blood platelet mean volumeOr dered By: Dr. Connolly on 02-18-2022 Platelet mean volume (Bld) [Entitic vol] 11.9 fL 6.2-12.0 [facility] Determination of erythrocyte mean corpuscular volume (MCV)Ordered By: Dr. Connolly on 02-18-2022 MCV (RBC) [Entitic vol] 91.7 fL 80-94 [facility] Hematocrit Auto (Bld) [Volum e fraction]Ordered By: Dr. Connolly on 02-18-2022 Hematocrit (Bld) [Volume fraction] 42.2 % 40-54 [facility] - Chemistry and C hemistry - challengeOrdered By: Dr. Connolly on 02-18-2022 CO2 [Moles/Vol] 25.0 mmol/L 21.0-32.0 [facility] Urea nitrogen/Creatinine [Mass ratio] 14.2 mg/mg 10-20 [facility] - Hematology and Cell countsOrdered By: Dr. Connolly on 02-18-2022 Erythrocyte distribution width (RBC) [Entitic vol] 51.9 fL 35.1-43.9 [facility] Erythrocyte distribution width (RBC) [Ratio] 15.3 % 11.6-14.6 [facility] Immature granulocytes/100 WBC (Bld) 0.400 % 0.0-0.9 [facility] Comment on above: IG% - Immature Granu locytes (promyelocytes, myelocytes and metamyelocytes) > 1% indicates that a LEFT SHIFT is Present. MCH (RBC) [Entitic mass] 30.0 pg 27.0-32.0 [facility] Nucleated RBC/100 WBC (Bld) [Ratio] 0 % 0-5 [facility] ([facility]) [Mass/Vol]Or dered By: Dr. Connolly on 02-18-2022 MCHC (RBC) [Mass/Vol] 32.7 g/dL 32-36 [facility] No Panel InformationOrdered By: Dr. Connolly on 02-18-2022 Estimated Creatinine Clearance Calc 54.07 ml/min [facility] Estimated GFR (MDRD) Amer 76 mL/min >60 [facility] Comment on above: GFR Calc Estimated GFR (MDRD) Non-Af Amer 62 mL/min >60 [facility] Comment on above: Non- GFR Calc Platelets bldOrdered By: Dr. Connolly on 02-18-2022 Platelets (Bld) [#/Vol] 139 10*3/uL 150-450 [facility] RBC morphologyOrdered By: Dr José Connolly on 02-18-2022 RBC morphology finding Nom (Bld) NORM C+C NORMAL NORM C&C [facility] Serum or plasma calcium mey urement (mass/volume)Ordered By: Dr. Connolly on 02-18-2022 Calcium [Mass/Vol] 8.8 mg/dL 8.5-10.1 [facility] Serum or plasma creatinine m easurement (mass/volume)Ordered By: Dr. Connolly on 02-18-2022 Creatinine [Mass/Vol] 1.20 mg/dL 0.70-1.30 [facility] Comment on above: The validity of the calculated GFR & GFRAA in patients over 70 years has not been determined. Clinical correlation is essential. Serum or plasma urea nitroge n measurement (mass/volume)Ordered By: Dr. Connolly on 02-18-2022 Urea nitrogen [Mass/Vol] 17 mg/dL 7-18 [facility] Thin prep Papanicolaou smear with manual screeningOrdered By: Dr. Connolly on 02-18-2022 Thin prep Papanicolaou smear with manual screening 7 5-15 [facility] - Chemistry and C hemistry - challengeon 02-14-2022 Cobalamin (Vitamin B12) [Mass/Vol] 427 pg/mL 211-911 [facility] Work Phone: No Panel Informationon 02-14 Free Lambda Light Chains, Quant 15.3 mg/L 5.7-26.3 [facility] Work Phone: Whole Blood Vitamin B1 Level 131.9 nmol/L 66.5-200.0 [facility] Work Phone: Comment on above: Performed at: [address] [id number] Director: Rich [place] PhD, Phone: [phone] at: [employer] [employer] [id number] Director: Jw Hernandez MD, Phone: [phone] Serum immunoglobulin kappa l ight chains/immunoglobulin lambda light chains mass ratioon 02-14-2022 Immunoglobulin light chains.kappa/Immunoglobu ravi light chains.lambda (S) [Mass ratio] 1.84 0.26-1.65 [facility] Work Phone: Serum or plasma calcitriol m easurement (mass/volume)on 02-14-2022 1,25-dihydroxyvitamin D3 [Mass/Vol] 35.7 pg/mL 24.8-81.5 [facility] Work Phone: Comment on above: Please note refere nce interval changePerformed at: [employer] [address] [id number] Director: Jw Hernandez MD, Phone: [phone] Serum or plasma folate measu rement (mass/volume)on 02-14-2022 Folate [Mass/Vol] 9.20 ng/mL 3.1-55.4 [facility] Work Phone: Serum or plasma immunoglobul in kappa light chains measurement (mass/volume)on 02-14-2022 Immunoglobulin light chains.kappa [Mass/Vol] 28.2 mg/L 3.3-19.4 [facility] Work Phone: Basophil percentageOrdered B y: Dr. Velasquez on 02-08-2022 Bilirubin [Mass/Vol] 0.70 mg/dL 0.20-1.00 [facility] Comment on above: For patients on eltr ombopag therapy, use of [facility] TBIL is not recommended. Protein [Mass/Vol] 6.8 g/dL 6.4-8.2 [facility] Basophil percentageon 2021 Chloride [Moles/Vol] 108 mmol/L 98-107 [facility] Work Phone: Glucose [Mass/Vol] 90 mg/dL 74-106 [facility] Work Phone: Potassium [Moles/Vol] 3.9 mmol/L 3.5-5.1 [facility] Work Phone: Sodium [Moles/Vol] 144 mmol/L 136-145 [facility] Work Phone: WBC (Bld) [#/Vol] 5.8 10*3/uL 4.4-11.0 [facility] Work Phone: Blood erythrocytes count (nu mber/volume)on 02-08-2022 RBC (Bld) [#/Vol] 5.06 10*6/uL 4.6-6.2 [facility] Work Phone: Blood hemoglobin measurement (mass/volume)on 02-08-2022 Hemoglobin (Bld) [Mass/Vol] 15.1 g/dL 13.0-16.5 [facility] Work Phone: Blood platelet mean volumeon 02-08-2022 Platelet mean volume (Bld) [Entitic vol] 12.3 fL 6.2-12.0 [facility] Work Phone: Determination of erythrocyte mean corpuscular volume (MCV)on 02-08-2022 MCV (RBC) [Entitic vol] 91.5 fL 80-94 [facility] Work Phone: Direct bilirubinOrdered By: Dr. Velasquez on 02-08-2022 Bilirubin.direct [Mass/Vol] 0.19 mg/dL 0.00-0.30 [facility] Hematocrit Auto (Bld) [Volum e fraction]on 02-08-2022 Hematocrit (Bld) [Volume fraction] 46.3 % 40-54 [facility] Work Phone: INR in Blood by Coagulation assayOrdered By: Dr. Velasquez on 02-08-2022 INR Coag (Bld) [Relative time] 1.2 {INR} [facility] - Chemistry and C hemistry - challengeOrdered By: Dr. Velasquez on 02-08-2022 ALP [Catalytic activity/Vol] 107 U/L 45-117 [facility] ALT [Catalytic activity/Vol] 9 U/L 16-61 [facility] Globulin (S) [Mass/Vol] 3.4 g/dL 2.2-4.2 [facility] - Chemistry and C hemistry - challengeon 02-08-2022 CO2 [Moles/Vol] 31.0 mmol/L 21.0-32.0 [facility] Work Phone: Urea nitrogen/Creatinine [Mass ratio] 15.6 mg/mg 10-20 [facility] Work Phone: Laboratory - Chemistry and C hemistry - challengeOrdered By: Dr. Murray on 02-08-2022 Free T4 [Mass/Vol] 0.80 ng/dL 0.76-1.46 [facility] Laboratory - CoagulationOrde red By: Dr. Velasquez on 02-08-2022 aPTT Coag (Bld) [Time] 31.7 s 24.1-36.2 [facility] PT Coag (PPP) [Time] 14.5 s 11.7-14.9 [facility] Laboratory - Hematology and Cell countson 02-08-2022 Erythrocyte distribution width (RBC) [Entitic vol] 52.8 fL 35.1-43.9 [facility] Work Phone: Erythrocyte distribution width (RBC) [Ratio] 15.8 % 11.6-14.6 [facility] Work Phone: MCH (RBC) [Entitic mass] 29.8 pg 27.0-32.0 [facility] Work Phone: MCHC Auto (RBC) [Mass/Vol]on 02-08-2022 MCHC (RBC) [Mass/Vol] 32.6 g/dL 32-36 [facility] Work Phone: No Panel Informationon 02-08 Estimated GFR (MDRD) Amer 97 mL/min >60 [facility] Work Phone: Comment on above: GFR Calc Estimated GFR (MDRD) Non-Af Amer 80 mL/min >60 [facility] Work Phone: Comment on above: Non- GFR Calc No Panel InformationOrdered By: Dr. Murray on 02-08-2022 Free Triiodothyronine (T3) pg/dL 2.3 pg/mL 2.18-3.98 [facility] No Panel InformationOrdered By: Dr. Velasquez on 02-08-2022 Thyroid Stimulating Hormone (TSH) 1.02 uIU/mL 0.358-3.74 [facility] Platelets bldon 02-08-2022 Platelets (Bld) [#/Vol] 173 10*3/uL 150-450 [facility] Work Phone: Serum or plasma albumin mey urement (mass/volume)Ordered By: Dr. Velasquez on 02-08-2022 Albumin [Mass/Vol] 3.4 g/dL 3.2-5.0 [facility] Serum or plasma calcium mey urement (mass/volume)on 02-08-2022 Calcium [Mass/Vol] 9.5 mg/dL 8.5-10.1 [facility] Work Phone: Serum or plasma creatinine m easurement (mass/volume)on 02-08-2022 Creatinine [Mass/Vol] 0.96 mg/dL 0.70-1.30 [facility] Work Phone: Comment on above: The validity of the calculated GFR & GFRAA in patients over 70 years has not been determined. Clinical correlation is essential. Serum or plasma urea nitroge n measurement (mass/volume)on 02-08-2022 Urea nitrogen [Mass/Vol] 15 mg/dL 7-18 [facility] Work Phone: Thin prep Papanicolaou smear with manual screeningOrdered By: Dr. Velasquez on 02-08-2022 Thin prep Papanicolaou smear with manual screening 12 U/L 15-37 [facility] Thin prep Papanicolaou smear with manual screeningon 02-08-2022 Thin prep Papanicolaou smear with manual screening 5 5-15 [facility] Work Phone: Basophil percentageon 2021 Basophil percentage < 0.9 mg/dL 0.70-1.30 [facility] Work Phone: No Panel Informationon 01-06 Bedside Estimated GFR (eGFR) > 60.0000 mL/min >60 [facility] Work Phone: Laboratory - Chemistry and C hemistry - challengeon 01-03-2022 Free T4 [Mass/Vol] 0.91 ng/dL 0.76-1.46 [facility] Work Phone: No Panel Informationon 01-03 Free Triiodothyronine (T3) pg/dL 2.4 pg/mL 2.18-3.98 [facility] Work Phone: Thyroid Stimulating Hormone (TSH) 0.39 uIU/mL 0.358-3.74 [facility] Work Phone: Laboratory - Chemistry and C hemistry - challengeon 11-15-2021 Free T4 [Mass/Vol] 1.27 ng/dL 0.76-1.46 [facility] Work Phone: No Panel Informationon 11-15 Free Triiodothyronine (T3) pg/dL 3.2 pg/mL 2.18-3.98 [facility] Work Phone: Thyroid Stimulating Hormone (TSH) < 0.01 uIU/mL 0.358-3.74 [facility] Work Phone: Absolute lymphocyte counton 11-14-2021 Lymphocytes Auto (Unsp spec) [#/Vol] 0.95 10*3/uL 0.83-4.51 [facility] Work Phone: Basophil percentageon 2021 Basophils/100 WBC (Bld) 0.6 % 0-1 [facility] Work Phone: Bilirubin [Mass/Vol] 0.60 mg/dL 0.20-1.00 [facility] Work Phone: Comment on above: For patients on eltr ombopag therapy, use of [facility] TBIL is not recommended. Chloride [Moles/Vol] 109 mmol/L 98-107 [facility] Work Phone: Eosinophils/100 WBC (Bld) 1.9 % 0-5 [facility] Work Phone: Glucose [Mass/Vol] 97 mg/dL 74-106 [facility] Work Phone: Lactate [Moles/Vol] 1.0 mmol/L 0.4-2.0 [facility] Work Phone: Neutrophils (Bld) [#/Vol] 4.6 10*3/uL 2.0-7.7 [facility] Work Phone: Neutrophils/100 WBC (Bld) 71.6 % 47-70 [facility] Work Phone: Potassium [Moles/Vol] 4.1 mmol/L 3.5-5.1 [facility] Work Phone: Protein [Mass/Vol] 7.3 g/dL 6.4-8.2 [facility] Work Phone: Sodium [Moles/Vol] 140 mmol/L 136-145 [facility] Work Phone: WBC (Bld) [#/Vol] 6.4 10*3/uL 4.4-11.0 [facility] Work Phone: [phone] Blood erythrocytes count (nu mber/volume)on 11-14-2021 RBC (Bld) [#/Vol] 5.40 10*6/uL 4.6-6.2 [facility] Work Phone: Blood hemoglobin measurement (mass/volume)on 11-14-2021 Hemoglobin (Bld) [Mass/Vol] 15.8 g/dL 13.0-16.5 [facility] Work Phone: Blood lymphocytes/100 leukoc yteson 11-14-2021 Lymphocytes/100 WBC (Bld) 14.8 % 19-41 [facility] Work Phone: Blood monocytes/100 leukocyt eson 11-14-2021 Monocytes/100 WBC (Bld) 10.8 % 0-10 [facility] Work Phone: Blood platelet mean volumeon 11-14-2021 Platelet mean volume (Bld) [Entitic vol] 12.2 fL 6.2-12.0 [facility] Work Phone: Determination of erythrocyte mean corpuscular volume (MCV)on 11-14-2021 MCV (RBC) [Entitic vol] 88.5 fL 80-94 [facility] Work Phone: Hematocrit Auto (Bld) [Volum e fraction]on 11-14-2021 Hematocrit (Bld) [Volume fraction] 47.8 % 40-54 [facility] Work Phone: Laboratory - Chemistry and C hemistry - challengeon 11-14-2021 ALP [Catalytic activity/Vol] 111 U/L 45-117 [facility] Work Phone: ALT [Catalytic activity/Vol] 17 U/L 16-61 [facility] Work Phone: CO2 [Moles/Vol] 27.0 mmol/L 21.0-32.0 [facility] Work Phone: Globulin (S) [Mass/Vol] 3.6 g/dL 2.2-4.2 [facility] Work Phone: Urea nitrogen/Creatinine [Mass ratio] 19.9 mg/mg 10-20 [facility] Work Phone: Laboratory - Hematology and Cell countson 11-14-2021 Erythrocyte distribution width (RBC) [Entitic vol] 45.0 fL 35.1-43.9 [facility] Work Phone: Erythrocyte distribution width (RBC) [Ratio] 14.1 % 11.6-14.6 [facility] Work Phone: Immature granulocytes/100 WBC (Bld) 0.300 % 0.0-0.9 [facility] Work Phone: Comment on above: IG% - Immature Granu locytes (promyelocytes, myelocytes and metamyelocytes) > 1% indicates that a LEFT SHIFT is Present. MCH (RBC) [Entitic mass] 29.3 pg 27.0-32.0 [facility] Work Phone: Nucleated RBC/100 WBC (Bld) [Ratio] 0 % 0-5 [facility] Work Phone: MCHC Auto (RBC) [Mass/Vol]on 11-14-2021 MCHC (RBC) [Mass/Vol] 33.1 g/dL 32-36 [facility] Work Phone: No Panel Informationon 11-14 Estimated Creatinine Clearance Calc 76.34 ml/min [facility] Work Phone: Estimated GFR (MDRD) Amer 112 mL/min >60 [facility] Work Phone: Comment on above: GFR Calc Estimated GFR (MDRD) Non-Af Amer 93 mL/min >60 [facility] Work Phone: Comment on above: Non- GFR Calc Platelets bldon 11-14-2021 Platelets (Bld) [#/Vol] 102 10*3/uL 150-450 [facility] Work Phone: Serum or plasma albumin mey urement (mass/volume)on 11-14-2021 Albumin [Mass/Vol] 3.7 g/dL 3.2-5.0 [facility] Work Phone: Serum or plasma albumin/glob ulin mass ratioon 11-14-2021 Albumin/Globulin [Mass ratio] 1.0 {ratio} 0.9-2.4 [facility] Work Phone: Serum or plasma calcium mey urement (mass/volume)on 11-14-2021 Calcium [Mass/Vol] 9.6 mg/dL 8.5-10.1 [facility] Work Phone: Serum or plasma creatinine m easurement (mass/volume)on 11-14-2021 Creatinine [Mass/Vol] 0.85 mg/dL 0.70-1.30 [facility] Work Phone: Comment on above: The validity of the calculated GFR & GFRAA in patients over 70 years has not been determined. Clinical correlation is essential. Serum or plasma urea nitroge n measurement (mass/volume)on 11-14-2021 Urea nitrogen [Mass/Vol] 17 mg/dL 7-18 [facility] Work Phone: Thin prep Papanicolaou smear with manual screeningon 11-14-2021 Thin prep Papanicolaou smear with manual screening 14 U/L 15-37 [facility] Work Phone: Thin prep Papanicolaou smear with manual screening 4 5-15 [facility] Work Phone: Basophil percentageon 2021 Chloride [Moles/Vol] 109 mmol/L 98-107 [facility] Work Phone: Cholesterol [Mass/Vol] 94 mg/dL <200 [facility] Work Phone: Comment on above: <200 mg/dL Desirable 200-240 mg/dL Borderline >240 mg/dL High Risk Glucose [Mass/Vol] 89 mg/dL 74-106 [facility] Work Phone: Potassium [Moles/Vol] 3.7 mmol/L 3.5-5.1 [facility] Work Phone: Sodium [Moles/Vol] 141 mmol/L 136-145 [facility] Work Phone: Triglyceride [Mass/Vol] 70 mg/dL <199 [facility] Work Phone: Comment on above: The drugs N-Acetylcy steine and Metamizole may falsely depress this assay.Serum Triglycerides Reference Interval Normal <150 mg/dL Borderline high 150 - 199 mg/dL High 200 - 499 mg/dL Very High > or = 500 mg/dL Glucose Glucometer (BldC) [M ass/Vol]on 10-19-2021 Glucose [Mass/Vol] 90 mg/dL 74-106 [facility] Work Phone: Comment on above: MANAGEMENT OF PATIEN T CARE PER NURSING PROTOCOL Laboratory - Chemistry and C hemistry - challengeon 10-19-2021 CO2 [Moles/Vol] 25.0 mmol/L 21.0-32.0 [facility] Work Phone: Urea nitrogen/Creatinine [Mass ratio] 17.0 mg/mg 10-20 [facility] Work Phone: No Panel Informationon 10-19 Estimated Creatinine Clearance Calc 64.89 ml/min [facility] Work Phone: Estimated GFR (MDRD) Amer 140 mL/min >60 [facility] Work Phone: Comment on above: GFR Calc Estimated GFR (MDRD) Non-Af Amer 115 mL/min >60 [facility] Work Phone: Comment on above: Non- GFR Calc Thyroid Stimulating Hormone (TSH) < 0.01 uIU/mL 0.358-3.74 [facility] Work Phone: Serum or plasma calcium mey urement (mass/volume)on 10-19-2021 Calcium [Mass/Vol] 9.1 mg/dL 8.5-10.1 [facility] Work Phone: Serum or plasma cholesterol in HDL measurement (mass/volume)on 10-19-2021 Cholesterol in HDL [Mass/Vol] 35 mg/dL >40 [facility] Work Phone: Comment on above: The drugs N-Acetylcy steine and Metamizole may falsely depress this assay. Reference Range HDL <40 mg/dL Low HDL Cholesterol HDL >or= 60 mg/dL High HDL Cholesterol Serum or plasma cholesterol in VLDL measurement (mass/volume)on 10-19-2021 Cholesterol in VLDL [Mass/Vol] 14 mg/dL 5-40 [facility] Work Phone: Serum or plasma creatinine m easurement (mass/volume)on 10-19-2021 Creatinine [Mass/Vol] 0.71 mg/dL 0.70-1.30 [facility] Work Phone: Comment on above: The validity of the calculated GFR & GFRAA in patients over 70 years has not been determined. Clinical correlation is essential. Serum or plasma low density lipoprotein (LDL) cholesterol measurement (mass/volume)on 10-19-2021 Cholesterol in LDL [Mass/Vol] 45 mg/dL 0-130 [facility] Work Phone: Serum or plasma urea nitroge n measurement (mass/volume)on 10-19-2021 Urea nitrogen [Mass/Vol] 12 mg/dL 7-18 [facility] Work Phone: Thin prep Papanicolaou smear with manual screeningon 10-19-2021 Thin prep Papanicolaou smear with manual screening 7 5-15 [facility] Work Phone: Whole blood hemoglobin A1c/t otal hemoglobin ratio (mass fraction)on 10-19-2021 HbA1c (Bld) [Mass fraction] 5.0 % 3.8-5.6 [facility] Work Phone: Comment on above: Normal < 5.7 % Predi abetic 5.7 - 6.4 % Diabetic >or= 6.5 % Please note range changes. Absolute lymphocyte counton 10-18-2021 Lymphocytes Auto (Unsp spec) [#/Vol] 0.66 10*3/uL 0.83-4.51 [facility] Work Phone: Basophil percentageon 2021 Basophils/100 WBC (Bld) 0.5 % 0-1 [facility] Work Phone: Chloride [Moles/Vol] 105 mmol/L 98-107 [facility] Work Phone: Eosinophils/100 WBC (Bld) 1.2 % 0-5 [facility] Work Phone: Glucose [Mass/Vol] 125 mg/dL 74-106 [facility] Work Phone: Comment on above: Fasting Glucose resu lt from 100 to 125 mg/dL suggests IMPAIRED HOMEOSTASIS per A.D.A. criteria. Neutrophils (Bld) [#/Vol] 3.1 10*3/uL 2.0-7.7 [facility] Work Phone: Neutrophils/100 WBC (Bld) 72.8 % 47-70 [facility] Work Phone: Potassium [Moles/Vol] 3.7 mmol/L 3.5-5.1 [facility] Work Phone: Sodium [Moles/Vol] 140 mmol/L 136-145 [facility] Work Phone: WBC (Bld) [#/Vol] 4.2 10*3/uL 4.4-11.0 [facility] Work Phone: Blood erythrocytes count (nu mber/volume)on 10-18-2021 RBC (Bld) [#/Vol] 4.76 10*6/uL 4.6-6.2 [facility] Work Phone: Blood hemoglobin measurement (mass/volume)on 10-18-2021 Hemoglobin (Bld) [Mass/Vol] 14.1 g/dL 13.0-16.5 [facility] Work Phone: Blood lymphocytes/100 leukoc yteson 10-18-2021 Lymphocytes/100 WBC (Bld) 15.6 % 19-41 [facility] Work Phone: Blood monocytes/100 leukocyt eson 10-18-2021 Monocytes/100 WBC (Bld) 9.4 % 0-10 [facility] Work Phone: Blood platelet mean volumeon 10-18-2021 Platelet mean volume (Bld) [Entitic vol] 12.8 fL 6.2-12.0 [facility] Work Phone: Determination of erythrocyte mean corpuscular volume (MCV)on 10-18-2021 MCV (RBC) [Entitic vol] 91.0 fL 80-94 [facility] Work Phone: Glucose Glucometer (BldC) [M ass/Vol]on 10-18-2021 Glucose [Mass/Vol] 118 mg/dL 74-106 [facility] Work Phone: Comment on above: MANAGEMENT OF PATIEN T CARE PER NURSING PROTOCOL Hematocrit Auto (Bld) [Volum e fraction]on 10-18-2021 Hematocrit (Bld) [Volume fraction] 43.3 % 40-54 [facility] Work Phone: INR in Blood by Coagulation assayon 10-18-2021 INR Coag (Bld) [Relative time] 1.2 {INR} [facility] Work Phone: Laboratory - Chemistry and C hemistry - challengeon 10-18-2021 CO2 [Moles/Vol] 31.0 mmol/L 21.0-32.0 [facility] Work Phone: Magnesium [Mass/Vol] 2.0 mg/dL 1.6-2.6 [facility] Work Phone: Urea nitrogen/Creatinine [Mass ratio] 17.5 mg/mg 10-20 [facility] Work Phone: Laboratory - Coagulationon 0 10-18-2021 aPTT Coag (Bld) [Time] 30.6 s 24.1-36.2 [facility] Work Phone: PT Coag (PPP) [Time] 14.4 s 11.7-14.9 [facility] Work Phone: Laboratory - Hematology and Cell countson 10-18-2021 Erythrocyte distribution width (RBC) [Entitic vol] 46.6 fL 35.1-43.9 [facility] Work Phone: Erythrocyte distribution width (RBC) [Ratio] 13.7 % 11.6-14.6 [facility] Work Phone: Immature granulocytes/100 WBC (Bld) 0.500 % 0.0-0.9 [facility] Work Phone: Comment on above: IG% - Immature Granu locytes (promyelocytes, myelocytes and metamyelocytes) > 1% indicates that a LEFT SHIFT is Present. MCH (RBC) [Entitic mass] 29.6 pg 27.0-32.0 [facility] Work Phone: Nucleated RBC/100 WBC (Bld) [Ratio] 0 % 0-5 [facility] Work Phone: MCHC Auto (RBC) [Mass/Vol]on 10-18-2021 MCHC (RBC) [Mass/Vol] 32.6 g/dL 32-36 [facility] Work Phone: No Panel Informationon 10-18 Estimated Creatinine Clearance Calc 71.31 ml/min [facility] Work Phone: Estimated GFR (MDRD) Amer 104 mL/min >60 [facility] Work Phone: Comment on above: GFR Calc Estimated GFR (MDRD) Non-Af Amer 86 mL/min >60 [facility] Work Phone: Comment on above: Non- GFR Calc Troponin I High Sensitivity 7 pg/mL 3.0-78.0 [facility] Work Phone: Comment on above: Please Note: New [place] Units and Gender Specific Reference Ranges. For more information see Policy Stat Procedure [facility] High Sensitivity Troponin (TNIH) and attachments. Platelets bldon 10-18-2021 Platelets (Bld) [#/Vol] 164 10*3/uL 150-450 [facility] Work Phone: Serum or plasma calcium mey urement (mass/volume)on 10-18-2021 Calcium [Mass/Vol] 9.1 mg/dL 8.5-10.1 [facility] Work Phone: Serum or plasma creatinine m easurement (mass/volume)on 10-18-2021 Creatinine [Mass/Vol] 0.91 mg/dL 0.70-1.30 [facility] Work Phone: Comment on above: The validity of the calculated GFR & GFRAA in patients over 70 years has not been determined. Clinical correlation is essential. Serum or plasma urea nitroge n measurement (mass/volume)on 10-18-2021 Urea nitrogen [Mass/Vol] 16 mg/dL 7-18 [facility] Work Phone: Thin prep Papanicolaou smear with manual screeningon 10-18-2021 Thin prep Papanicolaou smear with manual screening 4 5-15 [facility] Work Phone: Absolute lymphocyte counton 10-15-2021 Lymphocytes Auto (Unsp spec) [#/Vol] 0.94 10*3/uL 0.83-4.51 [facility] Work Phone: Basophil percentageon 2021 Basophils/100 WBC (Bld) 0.6 % 0-1 [facility] Work Phone: Chloride [Moles/Vol] 108 mmol/L 98-107 [facility] Work Phone: Eosinophils/100 WBC (Bld) 1.6 % 0-5 [facility] Work Phone: Glucose [Mass/Vol] 108 mg/dL 74-106 [facility] Work Phone: Comment on above: Fasting Glucose resu lt from 100 to 125 mg/dL suggests IMPAIRED HOMEOSTASIS per A.D.A. criteria. Neutrophils (Bld) [#/Vol] 3.4 10*3/uL 2.0-7.7 [facility] Work Phone: [phone] Neutrophils/100 WBC (Bld) 67.8 % 47-70 [facility] Work Phone: Potassium [Moles/Vol] 3.2 mmol/L 3.5-5.1 [facility] Work Phone: Sodium [Moles/Vol] 142 mmol/L 136-145 [facility] Work Phone: WBC (Bld) [#/Vol] 5.0 10*3/uL 4.4-11.0 [facility] Work Phone: Blood erythrocytes count (nu mber/volume)on 10-15-2021 RBC (Bld) [#/Vol] 5.49 10*6/uL 4.6-6.2 [facility] Work Phone: Blood hemoglobin measurement (mass/volume)on 10-15-2021 Hemoglobin (Bld) [Mass/Vol] 16.0 g/dL 13.0-16.5 [facility] Work Phone: Blood lymphocytes/100 leukoc yteson 10-15-2021 Lymphocytes/100 WBC (Bld) 18.7 % 19-41 [facility] Work Phone: Blood monocytes/100 leukocyt eson 10-15-2021 Monocytes/100 WBC (Bld) 11.1 % 0-10 [facility] Work Phone: Blood platelet mean volumeon 10-15-2021 Platelet mean volume (Bld) [Entitic vol] 11.1 fL 6.2-12.0 [facility] Work Phone: Determination of erythrocyte mean corpuscular volume (MCV)on 10-15-2021 MCV (RBC) [Entitic vol] 89.4 fL 80-94 [facility] Work Phone: Hematocrit Auto (Bld) [Volum e fraction]on 10-15-2021 Hematocrit (Bld) [Volume fraction] 49.1 % 40-54 [facility] Work Phone: Laboratory - Chemistry and C hemistry - challengeon 10-15-2021 CO2 [Moles/Vol] 30.0 mmol/L 21.0-32.0 [facility] Work Phone: Urea nitrogen/Creatinine [Mass ratio] 13.7 mg/mg 10-20 [facility] Work Phone: Laboratory - Hematology and Cell countson 10-15-2021 Erythrocyte distribution width (RBC) [Entitic vol] 45.8 fL 35.1-43.9 [facility] Work Phone: Erythrocyte distribution width (RBC) [Ratio] 13.9 % 11.6-14.6 [facility] Work Phone: Immature granulocytes/100 WBC (Bld) 0.200 % 0.0-0.9 [facility] Work Phone: Comment on above: IG% - Immature Granu locytes (promyelocytes, myelocytes and metamyelocytes) > 1% indicates that a LEFT SHIFT is Present. MCH (RBC) [Entitic mass] 29.1 pg 27.0-32.0 [facility] Work Phone: Nucleated RBC/100 WBC (Bld) [Ratio] 0 % 0-5 [facility] Work Phone: MCHC Auto (RBC) [Mass/Vol]on 10-15-2021 MCHC (RBC) [Mass/Vol] 32.6 g/dL 32-36 [facility] Work Phone: No Panel Informationon 10-15 Estimated Creatinine Clearance Calc 73.74 ml/min [facility] Work Phone: Estimated GFR (MDRD) Amer 109 mL/min >60 [facility] Work Phone: Comment on above: GFR Calc Estimated GFR (MDRD) Non-Af Amer 90 mL/min >60 [facility] Work Phone: Comment on above: Non- GFR Calc Thyroid Stimulating Hormone (TSH) < 0.01 uIU/mL 0.358-3.74 [facility] Work Phone: Troponin I High Sensitivity 12 pg/mL 3.0-78.0 [facility] Work Phone: Comment on above: Please Note: New [place] Units and Gender Specific Reference Ranges. For more information see Policy Stat Procedure [facility] High Sensitivity Troponin (TNIH) and attachments. Platelets bldon 10-15-2021 Platelets (Bld) [#/Vol] 151 10*3/uL 150-450 [facility] Work Phone: Serum or plasma calcium mey urement (mass/volume)on 10-15-2021 Calcium [Mass/Vol] 9.9 mg/dL 8.5-10.1 [facility] Work Phone: Serum or plasma creatinine m easurement (mass/volume)on 10-15-2021 Creatinine [Mass/Vol] 0.88 mg/dL 0.70-1.30 [facility] Work Phone: Comment on above: The validity of the calculated GFR & GFRAA in patients over 70 years has not been determined. Clinical correlation is essential. Serum or plasma urea nitroge n measurement (mass/volume)on 10-15-2021 Urea nitrogen [Mass/Vol] 12 mg/dL 7-18 [facility] Work Phone: Thin prep Papanicolaou smear with manual screeningon 10-15-2021 Thin prep Papanicolaou smear with manual screening 4 5-15 [facility] Work Phone: CBC W Auto Differential pane l (Bld)on 09-13-2021 Abs Immature Gran <0.03 <0.10 k/uL [facility] Basophils (Bld) [#/Vol] 0.06 10*3/uL <0.11 k/uL [facility] Basophils/100 WBC (Bld) 0.9 % [facility] Differential cell count method Nom (Bld) Auto [facility] Eosinophils (Bld) [#/Vol] 0.17 10*3/uL <0.46 k/uL [facility] Eosinophils/100 WBC (Bld) 2.7 % [facility] Erythrocyte distribution width (RBC) [Ratio] 14.0 % 11.5 - 15.0 % [facility] Hematocrit (Bld) [Volume fraction] 43.2 % 39.0 - 51.0 % [facility] Hemoglobin (Bld) [Mass/Vol] 14.4 g/dL 13.0 - 17.0 g/dL [facility] Immature Gran % 0.3 % [facility] Lymphocytes (Bld) [#/Vol] 0.97 10*3/uL Low 1.00 - 4.00 k/uL [facility] Lymphocytes/100 WBC (Bld) 15.2 % [facility] MCH (RBC) [Entitic mass] 30.6 pg 26. 0 - 34.0 pg [facility] MCHC (RBC) [Mass/Vol] 33.3 g/dL 30.5 - 36.0 g/dL [facility] MCV (RBC) [Entitic vol] 91.7 fL 80.0 - 100.0 fL [facility] Monocytes (Bld) [#/Vol] 0.59 10*3/uL <0.87 k/uL [facility] Monocytes/100 WBC (Bld) 9.3 % [facility] Neutrophils (Bld) [#/Vol] 4.56 10*3/uL 1.45 - 7.50 k/uL [facility] Neutrophils/100 WBC (Bld) 71.6 % [facility] Nucleated RBC (Bld) [#/Vol] 10*3/uL <0.01 k/uL [facility] Nucleated RBC/100 WBC (Bld) [Ratio] 0.0 /100 WBC [facility] Platelet mean volume (Bld) [Entitic vol] 11.5 fL 9.0 - 12.7 fL [facility] Platelets (Bld) [#/Vol] 145 10*3/uL Low 150 - 400 k/uL [facility] RBC (Bld) [#/Vol] 4.71 10*6/uL 4.20 - 6.00 m/uL [facility] WBC (Bld) [#/Vol] 6.37 10*3/uL 3.70 - 11.00 k/uL [facility] Comprehensive metabolic 2000 panelon 09-13-2021 Albumin [Mass/Vol] 4.0 g/dL 3.9 - 4.9 g/dL [facility] ALP [Catalytic activity/Vol] 104 U/L 38 - 113 U/L [facility] ALT [Catalytic activity/Vol] 13 U/L 10 - 54 U/L [facility] Anion gap [Moles/Vol] 6 mmol/L Low 9 - 18 mmol/L [facility] AST [Catalytic activity/Vol] 18 U/L 14 - 40 U/L [facility] Bilirubin [Mass/Vol] 0.5 mg/dL 0.2 - 1 .3 mg/dL [facility] Calcium [Mass/Vol] 9.4 mg/dL 8.5 - 10. 2 mg/dL [facility] Chloride [Moles/Vol] 106 mmol/L High 97 - 10 5 mmol/L [facility] CO2 [Moles/Vol] 30 mmol/L 22 - 30 mmol/L [facility] Creatinine [Mass/Vol] 0.93 mg/dL 0.73 - 1.22 mg/dL [facility] Estimated Glomerular Filtration Rate 85 mL/min/1.73m >=60 mL/min/1.7 3m [facility] Glucose [Mass/Vol] 98 mg/dL 74 - 99 mg/dL [facility] Potassium [Moles/Vol] 4.0 mmol/L 3.7 - 5.1 mmol/L [facility] Protein [Mass/Vol] 6.4 g/dL 6.3 - 8.0 g/dL [facility] Sodium [Moles/Vol] 142 mmol/L 136 - 144 mmol/L [facility] Urea nitrogen [Mass/Vol] 15 mg/dL 9 - 24 mg/dL [facility] No Panel Informationon 09-13 [facility] Absolute lymphocyte counton 08-21-2021 Lymphocytes Auto (Unsp spec) [#/Vol] 0.92 10*3/uL 0.83-4.51 [facility] Work Phone: Basophil percentageon 2021 Basophils/100 WBC (Bld) 0.5 % 0-1 [facility] Work Phone: Chloride [Moles/Vol] 103 mmol/L 98-107 [facility] Work Phone: Eosinophils/100 WBC (Bld) 1.7 % 0-5 [facility] Work Phone: Glucose [Mass/Vol] 100 mg/dL 74-106 [facility] Work Phone: Comment on above: Fasting Glucose resu lt from 100 to 125 mg/dL suggests IMPAIRED HOMEOSTASIS per A.D.A. criteria. Neutrophils (Bld) [#/Vol] 8.4 10*3/uL 2.0-7.7 [facility] Work Phone: Neutrophils/100 WBC (Bld) 79.6 % 47-70 [facility] Work Phone: Potassium [Moles/Vol] 3.0 mmol/L 3.5-5.1 [facility] Work Phone: Sodium [Moles/Vol] 137 mmol/L 136-145 [facility] Work Phone: WBC (Bld) [#/Vol] 10.6 10*3/uL 4.4-11.0 [facility] Work Phone: Blood erythrocytes count (nu mber/volume)on 08-21-2021 RBC (Bld) [#/Vol] 4.48 10*6/uL 4.6-6.2 [facility] Work Phone: Blood hemoglobin measurement (mass/volume)on 08-21-2021 Hemoglobin (Bld) [Mass/Vol] 14.0 g/dL 13.0-16.5 [facility] Work Phone: Blood lymphocytes/100 leukoc yteson 08-21-2021 Lymphocytes/100 WBC (Bld) 8.7 % 19-41 [facility] Work Phone: Blood monocytes/100 leukocyt eson 08-21-2021 Monocytes/100 WBC (Bld) 8.9 % 0-10 [facility] Work Phone: Blood platelet mean volumeon 08-21-2021 Platelet mean volume (Bld) [Entitic vol] 10.6 fL 6.2-12.0 [facility] Work Phone: C. difficile DNA YOLANDA+probe Q l (Unsp spec)on 08-21-2021 C. difficile GDH Antigen & Toxins Toxigenic C. difficile [facility] Work Phone: Determination of erythrocyte mean corpuscular volume (MCV)on 08-21-2021 MCV (RBC) [Entitic vol] 86.8 fL 80-94 [facility] Work Phone: Hematocrit Auto (Bld) [Volum e fraction]on 08-21-2021 Hematocrit (Bld) [Volume fraction] 38.9 % 40-54 [facility] Work Phone: Laboratory - Chemistry and C hemistry - challengeon 08-21-2021 CO2 [Moles/Vol] 29.0 mmol/L 21.0-32.0 [facility] Work Phone: Urea nitrogen/Creatinine [Mass ratio] 18.8 mg/mg 10-20 [facility] Work Phone: Laboratory - Hematology and Cell countson 08-21-2021 Erythrocyte distribution width (RBC) [Entitic vol] 43.3 fL 35.1-43.9 [facility] Work Phone: Erythrocyte distribution width (RBC) [Ratio] 13.7 % 11.6-14.6 [facility] Work Phone: Immature granulocytes/100 WBC (Bld) 0.600 % 0.0-0.9 [facility] Work Phone: Comment on above: IG% - Immature Granu locytes (promyelocytes, myelocytes and metamyelocytes) > 1% indicates that a LEFT SHIFT is Present. MCH (RBC) [Entitic mass] 31.3 pg 27.0-32.0 [facility] Work Phone: Nucleated RBC/100 WBC (Bld) [Ratio] 0 % 0-5 [facility] Work Phone: MCHC Auto (RBC) [Mass/Vol]on 08-21-2021 MCHC (RBC) [Mass/Vol] 36.0 g/dL 32-36 [facility] Work Phone: No Panel Informationon 08-21 Estimated Creatinine Clearance Calc 67.59 ml/min [facility] Work Phone: Estimated GFR (MDRD) Amer 99 mL/min >60 [facility] Work Phone: Comment on above: GFR Calc Estimated GFR (MDRD) Non-Af Amer 81 mL/min >60 [facility] Work Phone: Comment on above: Non- GFR Calc Platelets bldon 08-21-2021 Platelets (Bld) [#/Vol] 185 10*3/uL 150-450 [facility] Work Phone: Serum or plasma calcium mey urement (mass/volume)on 08-21-2021 Calcium [Mass/Vol] 9.4 mg/dL 8.5-10.1 [facility] Work Phone: Serum or plasma creatinine m easurement (mass/volume)on 08-21-2021 Creatinine [Mass/Vol] 0.96 mg/dL 0.70-1.30 [facility] Work Phone: Comment on above: The validity of the calculated GFR & GFRAA in patients over 70 years has not been determined. Clinical correlation is essential. Serum or plasma urea nitroge n measurement (mass/volume)on 08-21-2021 Urea nitrogen [Mass/Vol] 18 mg/dL 7-18 [facility] Work Phone: Thin prep Papanicolaou smear with manual screeningon 08-21-2021 Thin prep Papanicolaou smear with manual screening 5 5-15 [facility] Work Phone: Absolute lymphocyte counton 07-28-2021 Lymphocytes Auto (Unsp spec) [#/Vol] 0.82 10*3/uL 0.83-4.51 [facility] Work Phone: Basophil percentageon 2021 Basophils/100 WBC (Bld) 0.4 % 0-1 [facility] Work Phone: Chloride [Moles/Vol] 104 mmol/L 98-107 [facility] Work Phone: Eosinophils/100 WBC (Bld) 3.6 % 0-5 [facility] Work Phone: Glucose [Mass/Vol] 83 mg/dL 74-106 [facility] Work Phone: [phone] Neutrophils (Bld) [#/Vol] 5.3 10*3/uL 2.0-7.7 [facility] Work Phone: [phone] Neutrophils/100 WBC (Bld) 74.2 % 47-70 [facility] Work Phone: Potassium [Moles/Vol] 3.4 mmol/L 3.5-5.1 [facility] Work Phone: Sodium [Moles/Vol] 137 mmol/L 136-145 [facility] Work Phone: WBC (Bld) [#/Vol] 7.1 10*3/uL 4.4-11.0 [facility] Work Phone: Blood erythrocytes count (nu mber/volume)on 07-28-2021 RBC (Bld) [#/Vol] 4.06 10*6/uL 4.6-6.2 [facility]: Blood hemoglobin measurement (mass/volume)on 07-28-2021 Hemoglobin (Bld) [Mass/Vol] 12.2 g/dL 13.0-16.5 [facility] Work Phone: Blood lymphocytes/100 leukoc yteson 07-28-2021 Lymphocytes/100 WBC (Bld) 11.5 % 19-41 [facility] Work Phone: Blood monocytes/100 leukocyt eson 07-28-2021 Monocytes/100 WBC (Bld) 9.9 % 0-10 [facility] Work Phone: Blood platelet mean volumeon 07-28-2021 Platelet mean volume (Bld) [Entitic vol] 10.8 fL 6.2-12.0 [facility] Work Phone: Determination of erythrocyte mean corpuscular volume (MCV)on 07-28-2021 MCV (RBC) [Entitic vol] 88.2 fL 80-94 [facility] Work Phone: Hematocrit Auto (Bld) [Volum e fraction]on 07-28-2021 Hematocrit (Bld) [Volume fraction] 35.8 % 40-54 [facility] Work Phone: Laboratory - Chemistry and C hemistry - challengeon 07-28-2021 CO2 [Moles/Vol] 29.0 mmol/L 21.0-32.0 [facility] Work Phone: Urea nitrogen/Creatinine [Mass ratio] 21.8 mg/mg 10-20 [facility] Work Phone: Laboratory - Hematology and Cell countson 07-28-2021 Erythrocyte distribution width (RBC) [Entitic vol] 45.0 fL 35.1-43.9 [facility] Work Phone: Erythrocyte distribution width (RBC) [Ratio] 13.9 % 11.6-14.6 [facility] Work Phone: Immature granulocytes/100 WBC (Bld) 0.400 % 0.0-0.9 [facility] Work Phone: Comment on above: IG% - Immature Granu locytes (promyelocytes, myelocytes and metamyelocytes) > 1% indicates that a LEFT SHIFT is Present. MCH (RBC) [Entitic mass] 30.0 pg 27.0-32.0 [facility] Work Phone: Nucleated RBC/100 WBC (Bld) [Ratio] 0 % 0-5 [facility] Work Phone: MCHC Auto (RBC) [Mass/Vol]on 07-28-2021 MCHC (RBC) [Mass/Vol] 34.1 g/dL 32-36 [facility] Work Phone: Comment on above: Delta: 35.9 on [id number] No Panel Informationon 07-28 Estimated Creatinine Clearance Calc 74.58 ml/min [facility] Work Phone: Estimated GFR (MDRD) Amer 109 mL/min >60 [facility] Work Phone: Comment on above: GFR Calc Estimated GFR (MDRD) Non-Af Amer 90 mL/min >60 [facility] Work Phone: Comment on above: Non- GFR Calc Platelets bldon 07-28-2021 Platelets (Bld) [#/Vol] 180 10*3/uL 150-450 [facility] Work Phone: Serum or plasma calcium mey urement (mass/volume)on 07-28-2021 Calcium [Mass/Vol] 9.3 mg/dL 8.5-10.1 [facility] Work Phone: Serum or plasma creatinine m easurement (mass/volume)on 07-28-2021 Creatinine [Mass/Vol] 0.87 mg/dL 0.70-1.30 [facility] Work Phone: Comment on above: The validity of the calculated GFR & GFRAA in patients over 70 years has not been determined. Clinical correlation is essential. Serum or plasma urea nitroge n measurement (mass/volume)on 07-28-2021 Urea nitrogen [Mass/Vol] 19 mg/dL 7-18 [facility] Work Phone: Thin prep Papanicolaou smear with manual screeningon 07-28-2021 Thin prep Papanicolaou smear with manual screening 4 5-15 [facility] Work Phone: Vancomycin troughon 07-27-19 Vancomycin trough [Mass/Vol] 15.8 ug/mL 5.0-15.0 [facility] Work Phone: Comment on above: VANCOMYCIN STANDARED DRUG THERAPY TROUGH LEVEL: 5.0 - 15.0 mg/L VANCOMYCIN HIGH INTENSITY THERAPY TROUGH LEVEL: 15.0 - 20.0 mg/L High Intensity therapy recommended for serious lifethreatening infections include:- Oicttbignc-Rxfspfmnhrsl-Gsobkftbh (Ventilator/Healtcare Associated)-Sepsis PLEASE CONTACT PHARMACY SERVICES (#[id number]) FOR INTERPRETATIONOF RESULTS. Basophil percentageon 2021 Basophil percentage 2.4 mg/dL 2.5-4.9 [facility] Work Phone: Laboratory - Chemistry and C hemistry - challengeon 07-25-2021 Magnesium [Mass/Vol] 1.9 mg/dL 1.6-2.6 [facility] Work Phone: * Body fluid crystals type b y light microscopyon 07-23-2021 Crystals LM Nom (Body fld) See PATH REV [facility] Work Phone: Activated partial thrombopla stin time (aPTT) in platelet poor plasma by coagulation aon 07-23-2021 aPTT Coag (PPP) [Time] 34.0 s 24.1-36.2 [facility] Work Phone: Basophil percentageon 2021 Lactate [Moles/Vol] 0.9 mmol/L 0.4-2.0 [facility] Work Phone: Basophil percentage 25-50 SEEN /hpf 0-5 [facility] Work Phone: Bilirubin [Mass/Vol] 1.30 mg/dL 0.20-1.00 [facility] Work Phone: Comment on above: For patients on eltr ombopag therapy, use of [facility]ension [facility] TBIL is not recommended. Protein [Mass/Vol] 6.3 g/dL 6.4-8.2 [facility] Work Phone: Bilirubin Test strip Ql (U)o n 07-23-2021 Bilirubin Ql (U) Negative Negative [facility] Work Phone: Color of Synovial fluidon Color (Syn fld) Red Pale Yellow [facility] Work Phone: Culture, urineon 07-23-2021 Bacteria identified Cx Nom (U) Culture exhibits no growth. [facility] Work Phone: Determination of appearance of synovial fluidon 07-23-2021 Appearance (Syn fld) Turbid CLEAR [facility] Work Phone: Erythrocyte sedimentation ra dick 07-23-2021 ESR (Bld) [Velocity] 12 mm/h 0-20 [facility] Work Phone: INR in Blood by Coagulation assayon 07-23-2021 INR Coag (Bld) [Relative time] 1.3 {INR} [facility] Work Phone: Ketones Test strip Ql (U)on 07-23-2021 Ketones Ql (U) 15 mg/dl Negative [facility] Work Phone: Laboratory - Chemistry and C hemistry - challengeon 07-23-2021 Natriuretic peptide B (Bld) [Mass/Vol] 86.0 pg/mL 0-100 [facility] Work Phone: ALP [Catalytic activity/Vol] 66 U/L 45-117 [facility] Work Phone: ALT [Catalytic activity/Vol] 13 U/L 16-61 [facility] Work Phone: Globulin (S) [Mass/Vol] 3.2 g/dL 2.2-4.2 [facility] Work Phone: Laboratory - Coagulationon 0 07-23-2021 PT Coag (PPP) [Time] 15.6 s 11.7-14.9 [facility] Work Phone: Laboratory - Microbiology an d Antimicrobial susceptibilityon 07-23-2021 SARS-CoV-2 (COVID-19) RNA YOLANDA+probe Ql (Unsp spec) Not detected Not Detect [facility] Work Phone: Comment on above: Normal Reference Ran ge: Not DetectedMethod:(RT-PCR) real-time reverse transcriptase PCRLuminex ANGY Instrument*The Food and Drug Administration (FDA) has issued an Emergency Use Authorization (EAU) for the ANGY SARS-CoV-2 Assay for the rapid detection of the virus that causes COVID-19. This test has been validated, but the FDAs independent review of this validation is pending.*Negative results do not preclude infection and should not be used as the sole basis for treatment or patient management. Optimum specimen types and timing for peak viral levels during infections caused by SARS-CoV-2 have not been determined. Collection of multiple specimens from the same patient may be necessary to detect the virus. The possibility of a false negative result should be considered if the patient has clinical presentation or has had recent exposure. Bacteria identified Cx Nom (Bld) No growth in 5 days. [facility] Work Phone: Mucus LM Ql (Urine sed)on Mucus Ql (Urine sed) 0 SEEN /hpf [facility] Work Phone: Nitrite Test strip Ql (U)on 07-23-2021 Nitrite Ql (U) Negative Negative [facility] Work Phone: No Panel Informationon 07-23 Synovial Fluid Mononuclear WBCs 0.780 10^3/ul [facility] Work Phone: Synovial Fluid Mononuclear WBCs % 2.9 % [facility] Work Phone: Synovial Fluid Polynuclear WBCs 26.250 10^3/uL [facility] Work Phone: Comment on above: Previous reported re sult: 5.251 10^3/uLEdited by: JOHN on 07/24/21:0714 AMENDED REPORT 07/24/21713 SYBF PMN WBC# previously reported as: 5.251 10^3/uL Synovial Fluid Polynuclear WBCs % 97.1 % [facility] Work Phone: Synovial Fluid Total Cells Counted 27.0400 10^3/uL 0.000-0.00 0 [facility] Work Phone: Comment on above: Previous reported re sult: 5.4070 10^3/uLEdited by: JOHN on 07/24/21:0713 AMENDED REPORT 07/24/[address] previously reported as: 5.4070 H 10^3/uL This is the Total Number of Nucleated Cell Types in the Body Fluid. Troponin I High Sensitivity 9 pg/mL 3.0-78.0 [facility] [facility] Work Phone: Comment on above: Please Note: New [place] t Units and Gender Specific Reference Ranges. For more information see Policy Stat Procedure [facility] High Sensitivity Troponin (TNIH) and attachments. SARS-CoV-2 Antigen (Rapid) [facility] Work Phone: Protein Test strip Ql (U)on 07-23-2021 Protein Ql (U) 30 mg/dl Negative [facility] Work Phone: Review by pathologiston 07-06 Pathologist review Juan Ramon (Unsp spec) [Interp] May follow [facility] Work Phone: Pathologist review Juan Ramon (Unsp spec) [Interp] Reviewed [facility] Work Phone: Comment on above: Previous reported re sult: Will follow Edited by: GRANT on 07/26/21:1403Negative for malignant cells and crystals.Bloody specimen.David Baxter M.D. 07/26/21 AMENDED REPORT 07/26/21 1403 PATH REV previously reported as: Will follow Serum or plasma C reactive p rotein measurement (mass/volume)on 07-23-2021 CRP [Mass/Vol] 112.00 mg/L 0.0-3.0 [facility] Work Phone: Comment on above: C-Reactive Protein ( CRP) provides useful information for thediagnosis, therapy and monitoring of inflammatory processesand associated diseases. For the evaluation of Relative Riskfor Cardiovascular Disease, a High Sensitivity CRP (HSCRP)should be ordered. Serum or plasma albumin mey urement (mass/volume)on 07-23-2021 Albumin [Mass/Vol] 3.1 g/dL 3.2-5.0 [facility] Work Phone: Serum or plasma albumin/glob ulin mass ratioon 07-23-2021 Albumin/Globulin [Mass ratio] 1.0 {ratio} 0.9-2.4 [facility] Work Phone: Specimen source identificati on of body fluidon 07-23-2021 Specimen source Nom (Body fld) SYNOVIAL [facility] Work Phone: Specimen source Nom (Body fld) KNEE [facility] Work Phone: Squamous epithelial cells de tection in urine sediment by light microscopyon 07-23-2021 Epithelial cells.squamous LM Ql (Urine sed) 0-5 SEEN /hpf 0-5 [facility] Work Phone: Synovial fluid erythrocytes count (number/volume)on 07-23-2021 RBC (Syn fld) [#/Vol] 2.850 10^6/uL 0-0 [facility] Work Phone: Comment on above: Previous reported re sult: 0.570 10^6/uLEdited by: JOHN on 07/24/21:0713 AMENDED REPORT 07/24/21712 SYNOVIAL RBC previously reported as: 0.570 H 10^6/uL Synovial fluid leukocytes co unt (number/volume)on 07-23-2021 WBC (Syn fld) [#/Vol] 27.0400 10^3/uL 0.0 00-0.00 2 [facility] Work Phone: Comment on above: Previous reported re sult: 5.4070 10^3/uLEdited by: JOHN on 07/24/21:0713 AMENDED REPORT 07/24/21712 SYNOVIAL WBC previously reported as: 5.4070 H 10^3/uL Thin prep Papanicolaou smear with manual screeningon 07-23-2021 Thin prep Papanicolaou smear with manual screening 18 U/L 15-37 [facility] Work Phone: Urine blood detectionon 07-06 RBC Ql (U) 10 /ul Negative [facility] Work Phone: RBC Ql (U) 0 SEEN /hpf 0-5 [facility] Work Phone: Urine clarityon 07-23-2021 Clarity (U) Clear Clear [facility] Work Phone: Urine color determinationon 07-23-2021 Color (U) Yellow Yellow [facility] Work Phone: Urine glucose detectionon Glucose Ql (U) Normal mg/dl Normal [facility] Work Phone: Urine leukocyte esterase det ection by dipstickon 07-23-2021 Leukocyte esterase Test strip Ql (U) 500 /ul Negative [facility] Work Phone: Urine pHon 07-23-2021 pH (U) 7.0 [pH] 5.0 - 8.0 [facility] Work Phone: Urine sediment bacteria coun t by microscopy (number/high power field)on 07-23-2021 Bacteria LM.HPF (Urine sed) [#/Area] 0 /[HPF] None Seen [facility] Work Phone: Urine specific gravity measu rementon 07-23-2021 Specific gravity (U) [Rel density] 1.010 1.002-1.03 0 [facility] Work Phone: Urobilinogen Auto test strip Ql (U)on 07-23-2021 Urobilinogen Ql (U) Normal mg/dl Normal [facility] Work Phone: Basophil percentageon 2021 Chloride [Moles/Vol] 105 mmol/L 98-107 [facility] Work Phone: Glucose [Mass/Vol] 100 mg/dL 74-106 [facility] Work Phone: Comment on above: Fasting Glucose resu lt from 100 to 125 mg/dL suggests IMPAIRED HOMEOSTASIS per A.D.A. criteria. Potassium [Moles/Vol] 3.5 mmol/L 3.5-5.1 [facility] Work Phone: Sodium [Moles/Vol] 138 mmol/L 136-145 [facility] Work Phone: WBC (Bld) [#/Vol] 10.2 10*3/uL 4.4-11.0 [facility] Work Phone: Blood erythrocytes count (nu mber/volume)on 07-22-2021 RBC (Bld) [#/Vol] 4.69 10*6/uL 4.6-6.2 [facility] Work Phone: Blood hemoglobin measurement (mass/volume)on 07-22-2021 Hemoglobin (Bld) [Mass/Vol] 14.5 g/dL 13.0-16.5 [facility] Work Phone: Blood platelet mean volumeon 07-22-2021 Platelet mean volume (Bld) [Entitic vol] 10.2 fL 6.2-12.0 [facility] Work Phone: Determination of erythrocyte mean corpuscular volume (MCV)on 07-22-2021 MCV (RBC) [Entitic vol] 87.4 fL 80-94 [facility] Work Phone: Hematocrit Auto (Bld) [Volum e fraction]on 07-22-2021 Hematocrit (Bld) [Volume fraction] 41.0 % 40-54 [facility] Work Phone: Laboratory - Chemistry and C hemistry - challengeon 07-22-2021 CO2 [Moles/Vol] 28.0 mmol/L 21.0-32.0 [facility] Work Phone: Urea nitrogen/Creatinine [Mass ratio] 18.2 mg/mg 10-20 [facility] Work Phone: Laboratory - Hematology and Cell countson 07-22-2021 Erythrocyte distribution width (RBC) [Entitic vol] 43.8 fL 35.1-43.9 [facility] Work Phone: Erythrocyte distribution width (RBC) [Ratio] 13.7 % 11.6-14.6 [facility] Work Phone: MCH (RBC) [Entitic mass] 30.9 pg 27.0-32.0 [facility] Work Phone: MCHC Auto (RBC) [Mass/Vol]on 07-22-2021 MCHC (RBC) [Mass/Vol] 35.4 g/dL 32-36 [facility] Work Phone: No Panel Informationon 07-22 Estimated Creatinine Clearance Calc 58.99 ml/min [facility] Work Phone: Estimated GFR (MDRD) Amer 84 mL/min >60 [facility] Work Phone: Comment on above: GFR Calc Estimated GFR (MDRD) Non-Af Amer 69 mL/min >60 [facility] Work Phone: Comment on above: Non- GFR Calc Platelets bldon 07-22-2021 Platelets (Bld) [#/Vol] 138 10*3/uL 150-450 [facility] Work Phone: Serum or plasma calcium mey urement (mass/volume)on 07-22-2021 Calcium [Mass/Vol] 8.5 mg/dL 8.5-10.1 [facility] Work Phone: Serum or plasma creatinine m easurement (mass/volume)on 07-22-2021 Creatinine [Mass/Vol] 1.10 mg/dL 0.70-1.30 [facility] Work Phone: Comment on above: The validity of the calculated GFR & GFRAA in patients over 70 years has not been determined. Clinical correlation is essential. Serum or plasma urea nitroge n measurement (mass/volume)on 07-22-2021 Urea nitrogen [Mass/Vol] 20 mg/dL 7-18 [facility] Work Phone: Thin prep Papanicolaou smear with manual screeningon 07-22-2021 Thin prep Papanicolaou smear with manual screening 5 5-15 [facility] Work Phone: Glucose Glucometer (BldC) [M ass/Vol]on 07-21-2021 Glucose [Mass/Vol] 99 mg/dL 70-110 [facility] Work Phone: Comment on above: MANAGEMENT OF PATIEN T CARE PER NURSING PROTOCOL Absolute lymphocyte counton 07-10-2021 Lymphocytes Auto (Unsp spec) [#/Vol] 0.91 10*3/uL 0.83-4.51 [facility] Work Phone: Basophil percentageon 2021 Basophils/100 WBC (Bld) 0.7 % 0-1 [facility] Work Phone: Eosinophils/100 WBC (Bld) 1.3 % 0-5 [facility] Work Phone: Neutrophils (Bld) [#/Vol] 5.9 10*3/uL 2.0-7.7 [facility] Work Phone: Neutrophils/100 WBC (Bld) 78.7 % 47-70 [facility] Work Phone: Blood lymphocytes/100 leukoc yteson 07-10-2021 Lymphocytes/100 WBC (Bld) 12.1 % 19-41 [facility] Work Phone: Blood monocytes/100 leukocyt eson 07-10-2021 Monocytes/100 WBC (Bld) 6.9 % 0-10 [facility] Work Phone: Laboratory - Chemistry and C hemistry - challengeon 07-10-2021 Magnesium [Mass/Vol] 2.0 mg/dL 1.6-2.3 [facility] Work Phone: Comment on above: Performed at: [place] [id number] Director: Rich England PhD, Phone: [phone] Laboratory - Hematology and Cell countson 07-10-2021 Immature granulocytes/100 WBC (Bld) 0.300 % 0.0-0.9 [facility] Work Phone: Comment on above: IG% - Immature Granu locytes (promyelocytes, myelocytes and metamyelocytes) > 1% indicates that a LEFT SHIFT is Present. Nucleated RBC/100 WBC (Bld) [Ratio] 0 % 0-5 [facility] Work Phone: No Panel Informationon 07-10 Nasal Screen MRSA/MSSA [facility] Work Phone: Serum or plasma albumin mey urement (mass/volume)on 07-10-2021 Albumin [Mass/Vol] 3.6 g/dL 3.2-5.0 [facility] Work Phone: HISTORY PHYSICALon HISTORY PHYSICAL HNO ID: [id number] Author: Douglas Mortensen Service: Interventional Cardiology Author Type: Physician Type: HANDP Filed: 08/20/2020 10:57 AM Note Text: UPDATED HANDP PRE-CARDIAC CATHETERIZATION SERVICE DATE: 08/20/2020 SERVICE TIME: 10:56 PHYSICAL EXAM MUST BE COMPLETED ON ADMISSION The History and Physical (completed in the past 30 days) has been reviewed and the patient has been examined. The contents accurately reflect the patient's condition with the following additions or revisions since the HANDP was completed. Examination indicates no changes. Planned Procedure: Left Heart Cath + Possible PCI Primary Indication for Procedure: Angina Equivalent High Risk Features: History of Prior CABG: No History of Prior PCI: No Cardiomyopathy: No Anti-ischemic Meds in Past 2 Weeks: Beta blockers Ejection Fraction: 60% from Previous Echo Risk Appropriateness: Angina Class in Past 2 Weeks: Class III - Marked limitation of ordinary physical activity Cardiogenic Shock: NoHeart Failure: None Stress Test Performed: None EKG Assessment: Normal Family History of Premature CAD: Father, age 60 Evaluation for Preop Clearance: Non-Cardiac Surgery, Functional Capacity; >= 4 METS with symptoms, Surgical Risk; Intermediate HISTORY OF BLEEDING: No This HANDP can be found in the attached. SIGNATURE: Douglas Mortensen MD PATIENT NAME: Rhoan Alvarenga Corwin Castillo DATE: August 20, 2020 TIME: 10:56 AM [facility] 08-12-2020 QUETA Telephone (AGCARDPOB ) ----- ROHAN OLIVIA JR. ([id number]) 1945 M Date Time Provider Department 08/12/20 DOUGLAS MORTENSEN AGC[facility]PO[facility] During your visit today, we recorded the following information about you: Skyler Estrella RN 08/12/2020 11:13 AM Signed Patient contacted office and stated that he lives one hour from [facility]. Patient is going to get PCP to order COVID test at [facility] and will come for his cardiac catheterization with a hard copy of results. SAADIA Dunne RN 08/13/2020 2:06 PM Signed Received a call from patient who is going to [facility] for COVID testing on 08/18/20, scheduled for catheterization on 08/20/20. Patient is aware that he needs to come to the cardiac catheterization lab with a written copy of the negative results. SAADIA Dunne 08/13/2020 2:34 PM Signed Cancelled for [place] testing. Pascual Davila August 13, 2020 2:34 PM Allergies As of Date: 08/12/2020 (No Known Allergies) Date Reviewed: 08/10/2020 Reviewed by: Douglas Mortensen - Fully Assessed Reason for Visit: Orders [681] Prescriptions as of 08/12/2020 Sig: PAROXETINE 20 MG TABLET Take 1 tablet by mouth once d* CHLORTHALIDONE 25 MG TABLET Take 1 tablet by mouth once d* LORAZEPAM 1 MG TABLET Take 1 tablet by mouth at bed* PRAVASTATIN 20 MG TABLET Take 1 tablet by mouth daily * MELOXICAM 15 MG TABLET Take one(1) tablet daily as n* AMLODIPINE 10 MG TABLET Take 1 tablet by mouth once d* DICYCLOMINE 10 MG CAPSULE Take 1 capsule by mouth daily* TAMSULOSIN 0.4 MG CAPSULE Problem List As Of Date 08/12/2020 Noted Resolved Hypertension [I10] 05/04/2009 Anxiety [F41.9] 06/19/2009 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 Obesity [E66.9] 06/19/2009 Subclinical hyperthyroidism [E05.90] 08/26/2009 06/16/2011 Seborrheic Keratoses [L82.1] 09/05/2010 07/26/2012 Actinic Damage///Sun-damaged skin [L57.8] 09/05/2010 07/26/2012 Solar lentigines [L81.4] 09/05/2010 07/26/2012 Stucco keratosis [L85.1] 09/05/2010 10/22/2015 Hyperthyroidism, subclinical [E05.90] 06/19/2009 OA (osteoarthritis) of knee [M17.10] 01/24/2013 Acquired polycythemia [D75.1] 01/24/2013 Hyperlipidemia LDL goal <100 [E78.5] 10/09/2014 Ileus, postoperative (HCC) [K91.89, K56.7] 01/09/2015 07/22/2015 Enterocolitis due to Clostridium difficile [A04*05/25/2015 10/22/2015 Irritable bowel syndrome with diarrhea [K58.0] 10/22/2015 Flatulence [R14.3] 04/21/2016 03/16/2017 Elevated prostate specific antigen (PSA) [R97.2*04/22/2016 Idiopathic peripheral neuropathy [G60.9] 10/20/2016 Dyspnea on exertion [R06.00] 10/19/2017 09/13/2018 Obesity, Class I, BMI 30-34.9 [E66.9] 10/19/2017 Other pulmonary embolism with acute cor pulmona*01/30/2018 09/13/2018 Pulmonary hypertension (HCC) [I27.20] 01/30/2018 09/13/2018 Gross hematuria [R31.0] 01/30/2018 09/13/2018 Chronic midline low back pain without sciatica *04/23/2019 Cervicalgia [M54.2] 04/23/2019 Melanoma in situ of unspecified part of face (H*07/04/[address] nodules on CT [R91.8] 02/26/2020 Chest pain [R07.9] 08/10/2020 Encounter Status:Closed by SKYLER ESTRELLA RN on 08/13/20 [facility] ----- ROHAN OLIVIA JR. ([id number]) 1945 M Date Time Provider Department 08/11/20 DOUGLAS MORTENSEN [facility] During your visit today, we recorded the following information about you: Gianna Ayala [facility] 08/11/2020 11:46 AM Signed Schedule LHC for 08/20/[address] Balbina Stern LPN 08/11/2020 1:52 PM Signed Patient scheduled for left heart cath today, with Dr Mortensen on 08/20/2020. Instructions reviewed. Questions answered. Patient verbalized understanding. Instructions were as follows: -Arrive to [facility] Entrance 08/20/2020 at time assigned by [facility] animal laboratory technician staff in phone call 08/19/2020 PM.. -Pt to increase po water intake day prior to heart cath. Pt may eat a light meal and drink clear liquids until 3 hours prior to procedure. -With a sip of water on 08/20/2020 morning take: Aspirin 325mg along with usual BP meds- Norvasc 10 mg -Hold Chlorthalidone am of procedure -Labs to be done 48 hours prior to procedure (CBC and BMP orders placed) -Covid testing 24-72 hours prior to procedure - You must have someone drive you home from your procedure. -animal laboratory technician policy is pt not be alone first evening Office phone number provided for questions or concerns. Pascual Davila 08/12/2020 9:59 AM Signed Scheduled. Left message on [employer] with details. Pascual Davila August 12, 2020 9:58 AM Allergies As of Date: 08/11/2020 (No Known Allergies) Date Reviewed: 08/10/2020 Reviewed by: Douglas Mortensen - Fully Assessed Reason for Visit: Future Appointment [256] Primary Visit Diagnosis:Pre-procedure lab exam [Z01.812] Order(s):CBC [SQCBC] Order #: [id number] FUTURE BASIC METABOLIC PNL [SQBMP] Order #: [id number] FUTURE Prescriptions as of 08/11/2020 Sig: PAROXETINE 20 MG TABLET Take 1 tablet by mouth once d* CHLORTHALIDONE 25 MG TABLET Take 1 tablet by mouth once d* LORAZEPAM 1 MG TABLET Take 1 tablet by mouth at bed* PRAVASTATIN 20 MG TABLET Take 1 tablet by mouth daily * MELOXICAM 15 MG TABLET Take one(1) tablet daily as n* AMLODIPINE 10 MG TABLET Take 1 tablet by mouth once d* DICYCLOMINE 10 MG CAPSULE Take 1 capsule by mouth daily* TAMSULOSIN 0.4 MG CAPSULE Problem List As Of Date 08/11/2020 Noted Resolved Hypertension [I10] 05/04/2009 Anxiety [F41.9] 06/19/2009 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 Obesity [E66.9] 06/19/2009 Subclinical hyperthyroidism [E05.90] 08/26/2009 06/16/2011 Seborrheic Keratoses [L82.1] 09/05/2010 07/26/2012 Actinic Damage///Sun-damaged skin [L57.8] 09/05/2010 07/26/2012 Solar lentigines [L81.4] 09/05/2010 07/26/2012 Stucco keratosis [L85.1] 09/05/2010 10/22/2015 Hyperthyroidism, subclinical [E05.90] 06/19/2009 OA (osteoarthritis) of knee [M17.10] 01/24/2013 Acquired polycythemia [D75.1] 01/24/2013 Hyperlipidemia LDL goal <100 [E78.5] 10/09/2014 Ileus, postoperative (HCC) [K91.89, K56.7] 01/09/2015 07/22/2015 Enterocolitis due to Clostridium difficile [A04*05/25/2015 10/22/2015 Irritable bowel syndrome with diarrhea [K58.0] 10/22/2015 Flatulence [R14.3] 04/21/2016 03/16/2017 Elevated prostate specific antigen (PSA) [R97.2*04/22/2016 Idiopathic peripheral neuropathy [G60.9] 10/20/2016 Dyspnea on exertion [R06.00] 10/19/2017 09/13/2018 Obesity, Class I, BMI 30-34.9 [E66.9] 10/19/2017 Other pulmonary embolism with acute cor pulmona*01/30/2018 09/13/2018 Pulmonary hypertension (HCC) [I27.20] 01/30/2018 09/13/2018 Gross hematuria [R31.0] 01/30/2018 09/13/2018 Chronic midline low back pain without sciatica *04/23/2019 Cervicalgia [M54.2] 04/23/2019 Melanoma in situ of unspecified part of face (H*07/04/[address] on [address] [R91.8] 02/26/2020 Chest pain [R07.9] 08/10/2020 Encounter Status:Closed by PASCUAL DAVILA on 08/12/20 [facility] Office Visit: update H&P for c-scope RCon 01-05-2017 Dietary management education, guidance, and counseling (procedure) yes Invalid Interpretation Code [facility] Work Phone: Documentation of current medications (procedure) Done Invalid Interpretation Code [facility] Work Phone: Fall risk assessment No Invalid Interpretation Code [facility] Work Phone: Tobacco smoking status NHIS Never Invalid Interpretation Code [facility] Work Phone: Tobacco use CPHS Former smoker Invalid Interpretation Code [facility] Work Phone: Office Visit: update H&P for c-scope RCon 09-28-2014 Colonoscopy (procedure) Abnormal Invalid Interpretation Code [facility] Work Phone: C. difficile DNA YOLANDA+probe Q l (Unsp spec) C. difficile [facility] Antigen & Toxins Toxigenic C. difficile [facility] Work Phone: Culture, urine Bacteria identified Cx Nom (U) Culture exhibits no growth. [facility] Work Phone: Laboratory - Microbiology an d Antimicrobial susceptibility Bacteria identified Cx Nom (Bld) No growth in 5 days. [facility] Work Phone: No Panel Information Nasal Screen MRSA/MSSA [facility] Work Phone: SARS-CoV-2 Antigen (Rapid) [facility] Work Phone: Vital Signs Date Time Vital Sign Value Performing Clinician Facility 12-20-2024 12:56-0400 Body mass index (BMI) [Ratio] 28.09 kg/m2 Chris Pearson Jr., MD Work Phone: [facility] 12-20-2024 12:56-0400 Body weight 86.27 kg Chris Pearson Jr., MD Work Phone: [facility] 12-20-2024 12:56-0400 Diastolic blood pressure 64 mm[Hg] Chris Pearson Jr., MD Work Phone: [facility] 12-20-2024 12:56-0400 Heart rate 73 /min Chris Pearson Jr., MD Work Phone: [facility] 12-20-2024 12:56-0400 Respiratory rate 16 /min Chris Pearson Jr., MD Work Phone: [facility] 12-20-2024 12:56-0400 SaO2% (BldA) [Mass fraction] 96 % Chris Pearson Jr., MD Work Phone: [facility] 12-20-2024 12:56-0400 Systolic blood pressure 110 mm[Hg] Chris Pearson Jr., MD Work Phone: [facility] 11-15-2024 12:18-0400 Diastolic blood pressure 46 mm[Hg] Brandon Cantor MD Work Phone: [facility] 11-15-2024 12:18-0400 Heart rate 56 /min Brandon Cantor MD Work Phone: [facility] 11-15-2024 12:18-0400 Systolic blood pressure 100 mm[Hg] Brandon Cantor MD Work Phone: [facility] 11-15-2024 11:43-0400 Body mass index (BMI) [Ratio] 28.1 kg/m2 Brandon Cantor MD Work Phone: [facility] 11-15-2024 11:43-0400 Body temperature 98.49 [degF] Brandon Cantor MD Work Phone: [facility] 11-15-2024 11:43-0400 Body weight 86.3 kg Brandon Cantor MD Work Phone: [facility] 11-15-2024 11:43-0400 Respiratory rate 16 /min Brandon Cantor MD Work Phone: [facility] 10-18-2024 15:54-0400 Diastolic blood pressure 54 mm[Hg] Brandon Cantor MD Work Phone: [facility] 10-18-2024 15:54-0400 Systolic blood pressure 122 mm[Hg] Brandon Cantor MD Work Phone: [facility] 10-18-2024 14:55-0400 Body height 175.3 cm Brandon Cantor MD Work Phone: [facility] 10-18-2024 14:55-0400 Body mass index (BMI) [Ratio] 28.03 kg/m2 Brandon Cantor MD Work Phone: [facility] 10-18-2024 14:55-0400 Body weight 86.1 kg Brandon Cantor MD Work Phone: [facility] 10-18-2024 14:55-0400 Heart rate 58 /min Brandon Cantor MD Work Phone: [facility] 10-18-2024 14:55-0400 SaO2% (BldA) [Mass fraction] 93 % Brandon Cantor MD Work Phone: [facility] 09-12-2024 14:57-0400 Diastolic blood pressure 49 mm[Hg] Brandon Cantor MD Work Phone: [facility] 09-12-2024 14:57-0400 Heart rate 48 /min Brandon Cantor MD Work Phone: [facility] 09-12-2024 14:57-0400 Systolic blood pressure 87 mm[Hg] Brandon Cantor MD Work Phone: [facility] 09-12-2024 14:50-0400 Body mass index (BMI) [Ratio] 27.61 kg/m2 Brandon Cantor MD Work Phone: [facility] 09-12-2024 14:50-0400 Body temperature 98.49 [degF] Brandon Cantor MD Work Phone: [facility] 09-12-2024 14:50-0400 Body weight 84.8 kg Brandon Cantor MD Work Phone: [facility] 09-10-2024 18:47-0400 Body temperature 97.5 [degF] Dr. Brandon Cantor MD Work Phone: [facility] 09-10-2024 18:47-0400 Diastolic blood pressure 105 mm[Hg] Dr. Brandon Cantor MD Work Phone: [facility] 09-10-2024 18:47-0400 Heart rate 72 /min Dr. Brandon Cantor MD Work Phone: 9(029)743-647015 [place] [address] 09-10-2024 18:47-0400 Respiratory rate 16 /min Dr. Brandon Cantor MD Work Phone: 1(250)108-116878 [place] [address] 09-10-2024 18:47-0400 SaO2% (BldA) [Mass fraction] 98 % Dr. Brandon Cantor MD Work Phone: 5(491)801-394378 [place] [address] 09-10-2024 18:47-0400 Systolic blood pressure 118 mm[Hg] Dr. Brandon Cantor MD Work Phone: 7(199)914-864178 [place] [address] 09-10-2024 14:26-0400 Body height 177.[address] Brandon Cantor MD Work Phone: 3(700)596-868678 [place] [address] 09-10-2024 14:26-0400 Body mass index (BMI) [Ratio] 27.4 kg/m2 Dr. Brandon Cantor MD Work Phone: 1(825)564-272578 [place] [address] 09-10-2024 14:26-0400 Body weight 86.[address] Brandon Cantor MD Work Phone: 4(980)867-684778 [place] [address] 08-16-2024 11:34-0400 Body mass index (BMI) [Ratio] 27.85 kg/m2 Chris Pearson Jr., MD Work Phone: 3(417)266-757510 [place] [address] 08-16-2024 11:34-0400 Body weight 85.55 kg Chris Pearson Jr., MD Work Phone: 8(956)684-775210 [place] [address] 08-16-2024 11:34-0400 Diastolic blood pressure 62 mm[Hg] Chris Pearson Jr., MD Work Phone: 4(928)582-947210 [place] [address] 08-16-2024 11:34-0400 Heart rate 58 /min Chris Pearson Jr., MD Work Phone: 1(472)583-763610 [place] [address] 08-16-2024 11:34-0400 Respiratory rate 16 /min Chris Pearson Jr., MD Work Phone: 9(066)100-727210 [place] [address] 08-16-2024 11:34-0400 SaO2% (BldA) [Mass fraction] 96 % Chris Pearson Jr., MD Work Phone: [facility] 08-16-2024 11:34-0400 Systolic blood pressure 120 mm[Hg] Chris Pearson Jr., MD Work Phone: [facility] 05-17-2024 11:30-0500 Body height 175.3 cm Brandon Cantor MD Work Phone: [facility] 05-17-2024 11:30-0500 Body mass index (BMI) [Ratio] 27.87 kg/m2 Brandon Cantor MD Work Phone: [facility] 05-17-2024 11:30-0500 Body weight 85.6 kg Brandon Cantor MD Work Phone: [facility] 05-17-2024 11:30-0500 Diastolic blood pressure 60 mm[Hg] Brandon Cantor MD Work Phone: [facility] 05-17-2024 11:30-0500 Heart rate 49 /min Brandon Cantor MD Work Phone: [facility] 05-17-2024 11:30-0500 SaO2% (BldA) [Mass fraction] 95 % Brandon Cantor MD Work Phone: [facility] 05-17-2024 11:30-0500 Systolic blood pressure 128 mm[Hg] Brandon Cantor MD Work Phone: [facility] 05-13-2024 11:14-0500 Body mass index (BMI) [Ratio] 27.54 kg/m2 Chris Pearson Jr., MD Work Phone: [facility] 05-13-2024 11:14-0500 Body weight 86.46 kg Chris Pearson Jr., MD Work Phone: [facility] 05-13-2024 11:14-0500 Diastolic blood pressure 70 mm[Hg] Chris Pearson Jr., MD Work Phone: [facility] 05-13-2024 11:14-0500 Heart rate 52 /min Chris Pearson Jr., MD Work Phone: [facility] 05-13-2024 11:14-0500 Respiratory rate 18 /min Chris Pearson Jr., MD Work Phone: [facility] 05-13-2024 11:14-0500 SaO2% (BldA) [Mass fraction] 94 % Chris Pearson Jr., MD Work Phone: [facility] 05-13-2024 11:14-0500 Systolic blood pressure 146 mm[Hg] Chris Pearson Jr., MD Work Phone: [facility] 04-15-2024 15:33-0500 Body height 177.2 cm Douglas Mortensen MD Work Phone: [facility] 04-15-2024 15:33-0500 Body mass index (BMI) [Ratio] 26.88 kg/m2 Douglas Mortensen MD Work Phone: [facility] 04-15-2024 15:33-0500 Body weight 84.37 kg Douglas Mortensen MD Work Phone: [facility] 04-15-2024 15:33-0500 Diastolic blood pressure 60 mm[Hg] Douglas Mortensen MD Work Phone: [facility] 04-15-2024 15:33-0500 Heart rate 66 /min Douglas Mortensen MD Work Phone: [facility] 04-15-2024 15:33-0500 SaO2% (BldA) [Mass fraction] 95 % Douglas Mortensen MD Work Phone: [facility] 04-15-2024 15:33-0500 Systolic blood pressure 116 mm[Hg] Douglas Mortensen MD Work Phone: [facility] 11-09-2023 13:39-0400 Body mass index (BMI) [Ratio] 26.74 kg/m2 Brandon Cantor MD Work Phone: [facility] 11-09-2023 13:39-0400 Body temperature 98.29 [degF] Brandon Cantor MD Work Phone: [facility] 11-09-2023 13:39-0400 Body weight 83.92 kg Brandon Cantor MD Work Phone: [facility] 11-09-2023 13:39-0400 Diastolic blood pressure 62 mm[Hg] Brandon Cantor MD Work Phone: [facility] 11-09-2023 13:39-0400 Heart rate 52 /min Brandon Cantor MD Work Phone: [facility] 11-09-2023 13:39-0400 Respiratory rate 20 /min Brandon Cantor MD Work Phone: [facility] 11-09-2023 13:39-0400 Systolic blood pressure 118 mm[Hg] Brandon Cantor MD Work Phone: [facility] 09-12-2023 13:10-0400 Body height 177.[address] Brandon Cantor Work Phone: [facility] 09-12-2023 13:10-0400 Body mass index (BMI) [Ratio] 27.2 kg/m2 Dr. Brandon Cantor Work Phone: [facility] 09-12-2023 13:10-0400 Body temperature 98.4 [degF] Dr. Brandon Cantor Work Phone: [facility] 09-12-2023 13:10-0400 Body weight 86.[address] Brandon Cantor Work Phone: [facility] 09-12-2023 13:10-0400 Diastolic blood pressure 67 mm[Hg] Dr. Brandon Cantor Work Phone: [facility] 09-12-2023 13:10-0400 Heart rate 52 /min Dr. Brandon Cantor Work Phone: [facility] 09-12-2023 13:10-0400 SaO2% (BldA) [Mass fraction] 99 % Dr. Brandon Cantor Work Phone: 9(263)844-109515 [place] [address] 09-12-2023 13:10-0400 Systolic blood pressure 113 mm[Hg] Dr. Brandon Cantor Work Phone: 7(696)676-031678 [place] [address] 08-21-2023 13:35-0400 Body temperature 98.5 [degF] Dr. Brandon Cantor Work Phone: 3(578)653-364278 [place] [address] 08-21-2023 13:35-0400 Diastolic blood pressure 55 mm[Hg] Dr. Brandon Cantor Work Phone: 8(525)733-021278 [place] [address] 08-21-2023 13:35-0400 Heart rate 64 /min Dr. Brandon Cantor Work Phone: 4(486)821-786178 [place] [address] 08-21-2023 13:35-0400 Respiratory rate 18 /min Dr. Brandon Cantor Work Phone: 0(738)828-345278 [place] [address] 08-21-2023 13:35-0400 SaO2% (BldA) [Mass fraction] 94 % Dr. Brandon Cantor Work Phone: 6(857)755-470878 [place] [address] 08-21-2023 13:35-0400 Systolic blood pressure 123 mm[Hg] Dr. Brandon Cantor Work Phone: 8(132)497-076378 [place] [address] 08-20-2023 07:58-0400 Inhaled oxygen flow rate 2 L/min Dr. Brandon Cantor Work Phone: 6(152)362-438478 [place] [address] 08-18-2023 11:39-0400 Body height [address] Brandon Cantor Work Phone: 2(986)025-314078 [place] [address] 08-18-2023 11:39-0400 Body mass index (BMI) [Ratio] 26.9 kg/m2 Dr. Brandon Cantor Work Phone: 0(665)870-734478 [place] [address] 08-18-2023 11:39-0400 Body weight 85.[address] Brandon Cantor Work Phone: 8(513)166-425078 [place] [address] 08-18-2023 10:00-0400 Diastolic blood pressure 73 mm[Hg] Dr. Brandon Cantor Work Phone: 8(000)698-595415 [place] [address] 08-18-2023 10:00-0400 Heart rate 68 /min Dr. Brandon Cantor Work Phone: 5(767)196-683215 [place] [address] 08-18-2023 10:00-0400 Respiratory rate 18 /min Dr. Brandon Cantor Work Phone: 5(878)105-780878 [place] [address] 08-18-2023 10:00-0400 SaO2% (BldA) [Mass fraction] 91 % Dr. Brandon Cantor Work Phone: 5(603)205-303415 [place] [address] 08-18-2023 10:00-0400 Systolic blood pressure 146 mm[Hg] Dr. Brandon Cantor Work Phone: 6(573)772-973378 [place] [address] 08-18-2023 09:27-0400 Body temperature 98 [degF] Dr. Brandon Cantor Work Phone: 8(289)249-516378 [place] [address] 08-18-2023 09:00-0400 Inhaled oxygen flow rate 2 L/min Dr. Brandon Cantor Work Phone: 5(554)851-831778 [place] [address] 08-18-2023 02:38-0400 Body height 177.[address] Brandon Cantor Work Phone: 5(676)513-095078 [place] [address] 08-18-2023 02:38-0400 Body mass index (BMI) [Ratio] 26.9 kg/m2 Dr. Brandon Cantor Work Phone: 2(066)869-797915 [place] [address] 08-18-2023 02:38-0400 Body weight 85.[address] Brandon Cantor Work Phone: 1(192)950-425315 [place] [address] 04-19-2023 11:18-0500 Body temperature 98.4 [degF] Dr. Brandon Cantor Work Phone: 8(945)756-128315 [place] [address] 04-19-2023 11:18-0500 Diastolic blood pressure 62 mm[Hg] Dr. Brandon Cantor Work Phone: 8(429)250-285515 [place] [address] 04-19-2023 11:18-0500 Heart rate 60 /min Dr. Brandon Cantor Work Phone: [facility] 04-19-2023 11:18-0500 Respiratory rate 18 /min Dr. Brandon Cantor Work Phone: [facility] 04-19-2023 11:18-0500 SaO2% (BldA) [Mass fraction] 93 % Dr. Brandon Cantor Work Phone: [facility] 04-19-2023 11:18-0500 Systolic blood pressure 131 mm[Hg] Dr. Brandon Cantor Work Phone: [facility] 04-19-2023 11:05-0500 Inhaled oxygen flow rate 2 L/min Dr. Brandon Cantor Work Phone: [facility] 04-19-2023 10:02-0500 Body height 177.[address] Brandon Cantor Work Phone: [facility] 04-19-2023 10:02-0500 Body mass index (BMI) [Ratio] 28.3 kg/m2 Dr. Brandon Catnor Work Phone: 9(393)639-203215 [place] [address] 04-19-2023 10:02-0500 Body weight 89.[address] Brandon Cantor Work Phone: [facility] 04-17-2023 11:03-0500 Body weight 89.81 kg Douglas Mortensen MD Work Phone: [facility] 04-17-2023 11:03-0500 Diastolic blood pressure 67 mm[Hg] Douglas Mortensen MD Work Phone: [facility] 04-17-2023 11:03-0500 Heart rate 65 /min Douglas Mortensen MD Work Phone: [facility] 04-17-2023 11:03-0500 SaO2% (BldA) [Mass fraction] 94 % Douglas Mortensen MD Work Phone: [facility] 04-17-2023 11:03-0500 Systolic blood pressure 121 mm[Hg] Douglas Mortensen MD Work Phone: [facility] 04-12-2023 13:02-0500 Body mass index (BMI) [Ratio] 27.8 kg/m2 Dr. Brandon Cantor Work Phone: [facility] 04-12-2023 13:02-0500 Body weight 87.[address] Brandon Cantor Work Phone: [facility] 04-12-2023 13:02-0500 Diastolic blood pressure 64 mm[Hg] Dr. Brandon Cantor Work Phone: 9(819)796-736378 [place] [address] 04-12-2023 13:02-0500 Respiratory rate 16 /min Dr. Brandon Cantor Work Phone: 9(115)640-624578 [place] [address] 04-12-2023 13:02-0500 Systolic blood pressure 113 mm[Hg] Dr. Brandon Cantor Work Phone: 0(394)902-182078 [place] [address] 03-09-2023 14:28-0400 Body height 177.[address] Brandon Cantor Work Phone: 5(460)781-350478 [place] [address] 03-09-2023 14:28-0400 Body mass index (BMI) [Ratio] 27.8 kg/m2 Dr. Brandon Cantor Work Phone: 8(910)796-282415 [place] [address] 03-09-2023 14:28-0400 Body temperature 98 [degF] Dr. Brandon Cantor Work Phone: 3(986)491-029115 [place] [address] 03-09-2023 14:28-0400 Body weight 88.[address] Brandon Cantor Work Phone: 3(203)367-401378 [place] [address] 03-09-2023 14:28-0400 Diastolic blood pressure 74 mm[Hg] Dr. Brandon Cantor Work Phone: 6(901)108-654278 [place] [address] 03-09-2023 14:28-0400 Heart rate 70 /min Dr. Brandon Cantor Work Phone: 0(608)746-796878 [place] [address] 03-09-2023 14:28-0400 Respiratory rate 16 /min Dr. Brandon Cantor Work Phone: 4(528)567-308215 [place] [address] 03-09-2023 14:28-0400 SaO2% (BldA) [Mass fraction] 96 % Dr. Brandon Cantor Work Phone: 3(155)248-845878 [place] [address] 03-09-2023 14:28-0400 Systolic blood pressure 126 mm[Hg] Dr. Brandon Cantor Work Phone: 6(527)989-743178 [place] [address] 02-02-2023 12:18-0400 Body temperature 98 [degF] Dr. Brandon Cantor Work Phone: 0(262)372-413278 [place] [address] 02-02-2023 12:18-0400 Diastolic blood pressure 61 mm[Hg] Dr. Brandon Cantor Work Phone: 7(096)311-961578 [place] [address] 02-02-2023 12:18-0400 Heart rate 53 /min Dr. Brandon Cantor Work Phone: 9(222)742-812378 [place] [address] 02-02-2023 12:18-0400 Respiratory rate 16 /min Dr. Brandon Cantor Work Phone: 9(943)032-462278 [place] [address] 02-02-2023 12:18-0400 SaO2% (BldA) [Mass fraction] 92 % Dr. Brandon Cantor Work Phone: 8(065)378-620178 [place] [address] 02-02-2023 12:18-0400 Systolic blood pressure 114 mm[Hg] Dr. Brandon Cantor Work Phone: 2(641)988-328778 [place] [address] 02-02-2023 12:05-0400 Inhaled oxygen flow rate 2 L/min Dr. Brandon Cantor Work Phone: 9(202)126-753478 [place] [address] 02-02-2023 10:58-0400 Body height 177.[address] Brandon Cantor Work Phone: 5(864)935-115878 [place] [address] 02-02-2023 10:58-0400 Body mass index (BMI) [Ratio] 27.8 kg/m2 Dr. Brandon Cantor Work Phone: 9(202)792-464278 [place] [address] 02-02-2023 10:58-0400 Body weight [address] Brandon Cantor Work Phone: [facility] 11-04-2022 11:37-0400 Body weight 85.73 kg Delicia Older 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 Work Phone: [facility] 11-04-2022 11:37-0400 Diastolic blood pressure 60 mm[Hg] Delicia Older 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 Work Phone: [facility] 11-04-2022 11:37-0400 Heart rate 74 /min Delicia Older 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 Work Phone: [facility] 11-04-2022 11:37-0400 Respiratory rate 16 /min Delicia Older 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 Work Phone: [facility] 11-04-2022 11:37-0400 Systolic blood pressure 108 mm[Hg] Delicia Older 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 Work Phone: [facility] 09-08-2022 14:28-0400 Body height 177.[address] Brandon Cantor Work Phone: [facility] 09-08-2022 14:28-0400 Body mass index (BMI) [Ratio] 27 kg/m2 Dr. Brandon Cantor Work Phone: [facility] 09-08-2022 14:28-0400 Body temperature 98.6 [degF] Dr. Brandon Cantor Work Phone: [facility] 09-08-2022 14:28-0400 Body weight 85.[address] Brandon Cantor Work Phone: [facility] 09-08-2022 14:28-0400 Diastolic blood pressure 61 mm[Hg] Dr. Brandon Cantor Work Phone: [facility] 09-08-2022 14:28-0400 Heart rate 55 /min Dr. Brandon Cantor Work Phone: [facility] 09-08-2022 14:28-0400 Respiratory rate 18 /min Dr. Brandon Catnor Work Phone: [facility] 09-08-2022 14:28-0400 SaO2% (BldA) [Mass fraction] 95 % Dr. Brandon Cantor Work Phone: [facility] 09-08-2022 14:28-0400 Systolic blood pressure 102 mm[Hg] Dr. Brandon Cantor Work Phone: 2(595)072-256378 [place] [address] 09-02-2022 09:52-0400 Body mass index (BMI) [Ratio] 26.9 kg/m2 Dr. Brandon Cantor Work Phone: 4(444)014-164478 [place] [address] 09-02-2022 09:52-0400 Body weight 85.[address] Brandon Cantor Work Phone: 9(451)977-909078 [place] [address] 09-02-2022 09:52-0400 Diastolic blood pressure 64 mm[Hg] Dr. Brandon Cantor Work Phone: 8(136)825-279378 [place] [address] 09-02-2022 09:52-0400 Heart rate 61 /min Dr. Brandon Cantor Work Phone: 2(899)532-912278 [place] [address] 09-02-2022 09:52-0400 SaO2% (BldA) [Mass fraction] 94 % Dr. Brandon Cantor Work Phone: 0(364)473-450715 [place] [address] 09-02-2022 09:52-0400 Systolic blood pressure 105 mm[Hg] Dr. Brandon Cantor Work Phone: [facility] 08-11-2022 11:28-0500 Body temperature 98.01 [degF] Angelica Annehausen 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 Work Phone: [facility] 08-11-2022 11:28-0500 Body weight 85.09 kg Angelicacuauhtemoc Annehausen 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 Work Phone: [facility] 08-11-2022 11:28-0500 Diastolic blood pressure 58 mm[Hg] Angelica Annehausen 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 Work Phone: [facility] 08-11-2022 11:28-0500 Heart rate 56 /min Angelica Dahlhausen 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 Work Phone: [facility] 08-11-2022 11:28-0500 Respiratory rate 16 /min Angelica Dahlhausen 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 Work Phone: [facility] 08-11-2022 11:28-0500 SaO2% (BldA) [Mass fraction] 97 % Angelica Dahlhausen 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 Work Phone: [facility] 08-11-2022 11:28-0500 Systolic blood pressure 110 mm[Hg] Angelica Dahlhausen 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 Work Phone: [facility] 08-10-2022 14:00-0500 Diastolic blood pressure 65 mm[Hg] Dr. Brandon Cantor Work Phone: [facility] 08-10-2022 14:00-0500 Heart rate 50 /min Dr. Brandon Cantor Work Phone: [facility] 08-10-2022 14:00-0500 Respiratory rate 17 /min Dr. Brandon Cantor Work Phone: [facility] 08-10-2022 14:00-0500 SaO2% (BldA) [Mass fraction] 99 % Dr. Brandon Cantor Work Phone: [facility] 08-10-2022 14:00-0500 Systolic blood pressure 143 mm[Hg] Dr. Brandon Cantor Work Phone: [facility] 08-10-2022 11:38-0500 Body height 177.[address] Brandon Cantor Work Phone: [facility] 08-10-2022 11:38-0500 Body mass index (BMI) [Ratio] 27.8 kg/m2 Dr. Brandon Cantor Work Phone: [facility] 08-10-2022 11:38-0500 Body temperature 97.7 [degF] Dr. Brandon Cantor Work Phone: [facility] 08-10-2022 11:38-0500 Body weight [address] Brandon Cantor Work Phone: [facility] 08-04-2022 10:56-0500 Diastolic blood pressure 65 mm[Hg] Brandon Cantor MD Work Phone: [facility] 08-04-2022 10:56-0500 Heart rate 54 /min Brandon Cantor MD Work Phone: [facility] 08-04-2022 10:56-0500 Systolic blood pressure 137 mm[Hg] Brandon Cantor MD Work Phone: [facility] 08-04-2022 10:45-0500 Body weight 88.81 kg Brandon Cantor MD Work Phone: [facility] 08-04-2022 10:45-0500 Respiratory rate 20 /min Brandon Cantor MD Work Phone: [facility] 06-23-2022 10:49-0500 Body height 177.[address] Brandon Cantor Work Phone: [facility] 06-23-2022 10:49-0500 Body mass index (BMI) [Ratio] 27.5 kg/m2 Dr. Brandon Cantor Work Phone: [facility] 06-23-2022 10:49-0500 Body weight 87.[address] Brandon Cantor Work Phone: [facility] 06-23-2022 10:49-0500 Diastolic blood pressure 70 mm[Hg] Dr. Brandon Cantor Work Phone: [facility] 06-23-2022 10:49-0500 Heart rate 55 /min Dr. Brandon Cantor Work Phone: [facility] 06-23-2022 10:49-0500 SaO2% (BldA) [Mass fraction] 94 % Dr. Brandon Cantor Work Phone: 4(477)674-348578 [place] [address] 06-23-2022 10:49-0500 Systolic blood pressure 125 mm[Hg] Dr. Brandon Cantor Work Phone: 6(662)609-430578 [place] [address] 06-14-2022 09:46-0500 Body weight 86.18 kg Sharon Dougherty MD Work Phone: 9(261)274-598166 [place] [address] 05-10-2022 09:41-0500 Body height 177.[address] Brandon Cantor Work Phone: 7(414)452-972778 [place] [address] 05-10-2022 09:41-0500 Body mass index (BMI) [Ratio] 26.6 kg/m2 Dr. Brandon Cantor Work Phone: 1(870)920-547778 [place] [address] 05-10-2022 09:41-0500 Body weight 84.[address] Brandon Cantor Work Phone: 2(631)744-129678 [place] [address] 05-10-2022 09:41-0500 Diastolic blood pressure 72 mm[Hg] Dr. Brandon Cantor Work Phone: 8(778)104-840178 [place] [address] 05-10-2022 09:41-0500 Heart rate 52 /min Dr. Brandon Cantor Work Phone: 1(334)097-079878 [place] [address] 05-10-2022 09:41-0500 SaO2% (BldA) [Mass fraction] 93 % Dr. Brandon Cantor Work Phone: 2(502)477-573178 [place] [address] 05-10-2022 09:41-0500 Systolic blood pressure 133 mm[Hg] Dr. Brandon Cantor Work Phone: 5(667)439-966178 [place] [address] 05-01-2022 09:15-0500 Body temperature 97.6 [degF] Dr. Brandon Cantor Work Phone: 4(813)479-039778 [place] [address] 05-01-2022 09:15-0500 Diastolic blood pressure 56 mm[Hg] Dr. Brandon Cantor Work Phone: 9(266)803-742278 [place] [address] 05-01-2022 09:15-0500 Heart rate 80 /min Dr. Brandon Cantor Work Phone: 5(065)888-530878 [place] [address] 05-01-2022 09:15-0500 Respiratory rate 18 /min Dr. Brandon Cantor Work Phone: 5(303)350-411078 [place] [address] 05-01-2022 09:15-0500 SaO2% (BldA) [Mass fraction] 96 % Dr. Brandon Cantor Work Phone: 7(104)148-626178 [place] [address] 05-01-2022 09:15-0500 Systolic blood pressure 100 mm[Hg] Dr. Brandon Cantor Work Phone: 0(857)412-819078 [place] [address] 05-01-2022 06:14-0500 Inhaled oxygen flow rate 2 L/min Dr. Brandon Cantor Work Phone: 2(819)554-996278 [place] [address] 04-30-2022 16:16-0500 Body height 177.[address] Brandon Cantor Work Phone: 5(355)661-898978 [place] [address] Work Phone: 04-30-2022 16:16-0500 Body weight 74.[address] Brandon Cantor Work Phone: 0(484)707-659578 [place] [address] 04-29-2022 17:57-0500 Body mass index (BMI) [Ratio] 23.6 kg/m2 Dr. Brandon Cantor Work Phone: 5(797)243-984378 [place] [address] 04-26-2022 14:34-0500 Body temperature 99.4 [degF] Dr. Brandon Cantor Work Phone: 6(466)445-255878 [place] [address] 04-26-2022 14:34-0500 Diastolic blood pressure 62 mm[Hg] Dr. Brandon Cantor Work Phone: 9(640)033-621678 [place] [address] 04-26-2022 14:34-0500 Heart rate 57 /min Dr. Brandon Cantor Work Phone: 7(414)011-102178 [place] [address] 04-26-2022 14:34-0500 Respiratory rate 16 /min Dr. Brandon Cantor Work Phone: 1(943)497-760478 [place] [address] 04-26-2022 14:34-0500 SaO2% (BldA) [Mass fraction] 97 % Dr. Brandon Cantor Work Phone: 4(884)853-567573 [address] 04-26-2022 14:34-0500 Systolic blood pressure 129 mm[Hg] Dr. Brandon Cantor Work Phone: 7(517)266-879778 [place] [address] 04-26-2022 13:15-0500 Body height 177.[address] Brandon Cantor Work Phone: [facility] Work Phone: 04-26-2022 13:15-0500 Body mass index (BMI) [Ratio] 26.5 kg/m2 Dr. Brandon Cantor Work Phone: 0(298)700-628078 [place] [address] 04-26-2022 13:15-0500 Body weight 83.[address] Brandon Cantor Work Phone: 2(192)634-230878 [place] [address] 04-12-2022 13:31-0500 Body mass index (BMI) [Ratio] 26.1 kg/m2 Dr. Brandon Cantor Work Phone: 7(413)065-168778 [place] [address] 04-12-2022 13:31-0500 Body temperature 97.6 [degF] Dr. Brandon Cantor Work Phone: 5(408)259-368078 [place] [address] 04-12-2022 13:31-0500 Body weight 82.[address] Brandon Cantor Work Phone: 2(454)583-996178 [place] [address] 04-12-2022 13:31-0500 Diastolic blood pressure 72 mm[Hg] Dr. Brandon Cantor Work Phone: 3(547)767-039278 [place] [address] 04-12-2022 13:31-0500 Heart rate 52 /min Dr. Brandon Cantor Work Phone: 6(655)079-850378 [place] [address] 04-12-2022 13:31-0500 Respiratory rate 18 /min Dr. Brandon Cantor Work Phone: 8(463)383-413678 [place] [address] 04-12-2022 13:31-0500 SaO2% (BldA) [Mass fraction] 99 % Dr. Brandon Cantor Work Phone: [facility] 04-12-2022 13:31-0500 Systolic blood pressure 125 mm[Hg] Dr. Brandon Cantor Work Phone: 2(402)692-522478 [place] [address] 04-07-2022 14:24-0400 Body mass index (BMI) [Ratio] 26.2 kg/m2 Dr. Brandon Cantor Work Phone: 3(817)715-192378 [place] [address] 04-07-2022 14:24-0400 Body temperature 97 [degF] Dr. Brandon Cantor Work Phone: 0(442)588-163078 [place] [address] 04-07-2022 14:24-0400 Body weight 83.[address] Brandon Cantor Work Phone: 9(462)387-536678 [place] [address] 04-07-2022 14:24-0400 Diastolic blood pressure 73 mm[Hg] Dr. Brandon Cantor Work Phone: 3(636)580-237178 [place] [address] 04-07-2022 14:24-0400 Heart rate 56 /min Dr. Brandon Cantor Work Phone: 5(526)749-818578 [place] [address] 04-07-2022 14:24-0400 Respiratory rate 18 /min Dr. Brandon Cantor Work Phone: 9(044)655-362378 [place] [address] 04-07-2022 14:24-0400 SaO2% (BldA) [Mass fraction] 92 % Dr. Brandon Cantor Work Phone: 8(564)807-360478 [place] [address] 04-07-2022 14:24-0400 Systolic blood pressure 125 mm[Hg] Dr. Brandon Cantor Work Phone: 3(173)978-149915 [place] [address] 04-04-2022 11:56-0400 Body weight 83.92 kg Douglas Mortensen MD Work Phone: [facility] 04-04-2022 11:56-0400 Diastolic blood pressure 60 mm[Hg] Douglas Mortensen MD Work Phone: [facility] 04-04-2022 11:56-0400 Heart rate 56 /min Douglas Mortensen MD Work Phone: [facility] 04-04-2022 11:56-0400 Systolic blood pressure 120 mm[Hg] Douglas Mortensen MD Work Phone: [facility] 04-01-2022 10:59-0400 Body height 177.8 cm Delicia Older 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 Work Phone: [facility] 04-01-2022 10:59-0400 Body weight 83.46 kg Delicia Older 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 Work Phone: [facility] 04-01-2022 10:59-0400 Diastolic blood pressure 66 mm[Hg] Delicia Older 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 Work Phone: [facility] 04-01-2022 10:59-0400 Heart rate 51 /min Delicia Older 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 Work Phone: [facility] 04-01-2022 10:59-0400 Respiratory rate 16 /min Delicia Older 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 Work Phone: [facility] 04-01-2022 10:59-0400 Systolic blood pressure 113 mm[Hg] Delicia Older 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 Work Phone: [facility] 02-24-2022 10:47-0400 Body temperature 97.7 [degF] Dr. Brandon Cantor Work Phone: [facility] 02-24-2022 10:47-0400 Diastolic blood pressure 51 mm[Hg] Dr. Brandon Cantor Work Phone: [facility] [facility] 02-24-2022 10:47-0400 Heart rate 58 /min Dr. Brandon Cantor Work Phone: [facility] 02-24-2022 10:47-0400 Respiratory rate 20 /min Dr. Brandon Cantor Work Phone: [facility] 02-24-2022 10:47-0400 SaO2% (BldA) [Mass fraction] 93 % Dr. Brandon Cantor Work Phone: [facility] 02-24-2022 10:47-0400 Systolic blood pressure 111 mm[Hg] Dr. Brandon Cantro Work Phone: [facility] 02-24-2022 03:00-0400 Inhaled oxygen concentration 4 % Dr. Brandon Cantor Work Phone: [facility] 02-24-2022 03:00-0400 Inhaled oxygen flow rate 2 L/min Dr. Brandon Cantor Work Phone: [facility] 02-20-2022 12:36-0400 Body height 177.[address] Brandon Cantor Work Phone: [facility] Work Phone: 02-20-2022 12:36-0400 Body weight [address] Brandon Cantor Work Phone: [phone] [place] [address] 02-17-2022 14:03-0400 Body temperature 98.3 [degF] Dr. Brandon Cantor Work Phone: [facility] Work Phone: 02-17-2022 14:03-0400 Diastolic blood pressure 70 mm[Hg] Dr. Brandon Cantor Work Phone: [facility] Work Phone: 02-17-2022 14:03-0400 Heart rate 70 /min Dr. Brandon Cantor Work Phone: [facility] Work Phone: 02-17-2022 14:03-0400 Inhaled oxygen flow rate 4 L/min Dr. Brandon Cantor Work Phone: [facility] Work Phone: 02-17-2022 14:03-0400 Respiratory rate 16 /min Dr. Brandon Cantor Work Phone: [facility] Work Phone: 02-17-2022 14:03-0400 Systolic blood pressure 144 mm[Hg] Dr. Brandon Cantor Work Phone: [facility] Work Phone: 02-17-2022 09:00-0400 SaO2% (BldA) [Mass fraction] 96 % Dr. Brandon Cantor Work Phone: [facility] Work Phone: 02-16-2022 15:33-0400 Body height 177.[address] Brandon Cantor Work Phone: [facility] Work Phone: 02-16-2022 15:33-0400 Body mass index (BMI) [Ratio] 25.6 kg/m2 Dr. Brandon Cantor Work Phone: [facility] 02-16-2022 15:33-0400 Body weight [address] Brandon Cantor Work Phone: [facility] Work Phone: 02-14-2022 08:55-0400 Body mass index (BMI) [Ratio] 26.6 kg/m2 Dr. Brandon Cantor Work Phone: [facility] Work Phone: 02-14-2022 08:55-0400 Body temperature 98.6 [degF] Dr. Brandon Cantor Work Phone: [facility] Work Phone: 02-14-2022 08:55-0400 Body weight 84.[address] Brandon Cantor Work Phone: [facility] Work Phone: 02-14-2022 08:55-0400 Diastolic blood pressure 70 mm[Hg] Dr. Brandon Cantor Work Phone: [facility] Work Phone: 02-14-2022 08:55-0400 Heart rate 71 /min Dr. Brandon Cantor Work Phone: [facility] Work Phone: 02-14-2022 08:55-0400 Respiratory rate 16 /min Dr. Brandon Cantor Work Phone: [facility] Work Phone: 02-14-2022 08:55-0400 SaO2% (BldA) [Mass fraction] 96 % Dr. Brandon Cantor Work Phone: [facility] Work Phone: 02-14-2022 08:55-0400 Systolic blood pressure 146 mm[Hg] Dr. Brandon Cantor Work Phone: [facility] Work Phone: 12-07-2021 13:08-0400 Body height 177.[address] Brandon Cantor Work Phone: [facility] Work Phone: 12-07-2021 13:08-0400 Body mass index (BMI) [Ratio] 25 kg/m2 Dr. Brandon Cantor Work Phone: [facility] Work Phone: 12-07-2021 13:08-0400 Body temperature 97.5 [degF] Dr. Brandon Cantor Work Phone: [facility] Work Phone: 12-07-2021 13:08-0400 Body weight 79.[address] Brandon Cantor Work Phone: [facility] Work Phone: 12-07-2021 13:08-0400 Diastolic blood pressure 61 mm[Hg] Dr. Brandon Cantor Work Phone: [facility] Work Phone: 12-07-2021 13:08-0400 Heart rate 50 /min Dr. Brandon Cantor Work Phone: [facility] Work Phone: 12-07-2021 13:08-0400 Respiratory rate 17 /min Dr. Brandon Cantor Work Phone: [facility] Work Phone: 12-07-2021 13:08-0400 SaO2% (BldA) [Mass fraction] 96 % Dr. Brandon Cantor Work Phone: [facility] Work Phone: 12-07-2021 13:08-0400 Systolic blood pressure 102 mm[Hg] Dr. Brandon Cantor Work Phone: [facility] Work Phone: 11-30-2021 08:24-0400 Body mass index (BMI) [Ratio] 25.5 kg/m2 Dr. Brandon Cantor Work Phone: [facility] Work Phone: 11-30-2021 08:24-0400 Body temperature 95.3 [degF] Dr. Brandon Cantor Work Phone: [facility] Work Phone: 11-30-2021 08:24-0400 Body weight 80.[address] Brandon Cantor Work Phone: [facility] Work Phone: 11-30-2021 08:24-0400 Diastolic blood pressure 70 mm[Hg] Dr. Brandon Cantor Work Phone: [facility] Work Phone: 11-30-2021 08:24-0400 Heart rate 56 /min Dr. Brandon Cantor Work Phone: [facility] Work Phone: 11-30-2021 08:24-0400 Respiratory rate 18 /min Dr. Brandon Cantor Work Phone: [facility] Work Phone: 11-30-2021 08:24-0400 SaO2% (BldA) [Mass fraction] 95 % Dr. Brandon Cantor Work Phone: [facility] Work Phone: 11-30-2021 08:24-0400 Systolic blood pressure 124 mm[Hg] Dr. Brandon Cantor Work Phone: [facility] Work Phone: 11-25-2021 14:40-0400 Body temperature 98.8 [degF] Angelica Dahlhausen 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 Work Phone: [facility] 11-25-2021 14:40-0400 Body weight 78.93 kg Angelica Dahlhausen 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 Work Phone: [facility] 11-25-2021 14:40-0400 Diastolic blood pressure 82 mm[Hg] Angelica Dahlhausen 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 Work Phone: [facility] 11-25-2021 14:40-0400 Heart rate 57 /min Angelica Dahlhausen 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 Work Phone: [facility] 11-25-2021 14:40-0400 Respiratory rate 18 /min Angelica Dahlhausen 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 Work Phone: [facility] 11-25-2021 14:40-0400 SaO2% (BldA) [Mass fraction] 96 % Angelica Dahlhausen 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 Work Phone: [facility] 11-25-2021 14:40-0400 Systolic blood pressure 128 mm[Hg] Angelica Dahlhausen 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 Work Phone: [facility] 11-17-2021 15:07-0400 Body temperature 97.2 [degF] Brandon Cantor MD Work Phone: [facility] 11-17-2021 15:07-0400 Body weight 77.02 kg Brandon Cantor MD Work Phone: [facility] 11-17-2021 15:07-0400 Diastolic blood pressure 56 mm[Hg] Brandon Cantor MD Work Phone: [facility] 11-17-2021 15:07-0400 Heart rate 68 /min Brandon Cantor MD Work Phone: [facility] 11-17-2021 15:07-0400 Respiratory rate 24 /min Brandon Cantor MD Work Phone: [facility] 11-17-2021 15:07-0400 Systolic blood pressure 112 mm[Hg] Brandon Cantor MD Work Phone: [facility] 11-14-2021 10:42-0400 Diastolic blood pressure 68 mm[Hg] Dr. Brandon Cantor Work Phone: [facility] Work Phone: 11-14-2021 10:42-0400 Heart rate 62 /min Dr. Brandon Cantor Work Phone: [facility] Work Phone: 11-14-2021 10:42-0400 Respiratory rate 14 /min Dr. Brandon Cantor Work Phone: [facility] Work Phone: 11-14-2021 10:42-0400 SaO2% (BldA) [Mass fraction] 95 % Dr. Brandon Cantor Work Phone: [facility] Work Phone: 11-14-2021 10:42-0400 Systolic blood pressure 180 mm[Hg] Dr. Brandon Cantor Work Phone: [facility] Work Phone: 11-14-2021 07:06-0400 Body temperature 97.6 [degF] Dr. Brandon Cantor Work Phone: [facility] Work Phone: 11-14-2021 07:03-0400 Body height 177.[address] Brandon Cantor Work Phone: [facility] Work Phone: 11-14-2021 07:03-0400 Body mass index (BMI) [Ratio] 24.9 kg/m2 Dr. Brandon Cantor Work Phone: [facility] Work Phone: 11-14-2021 07:03-0400 Body weight 78.[address] Brandon Cantor Work Phone: [facility] Work Phone: 10-19-2021 10:58-0400 Diastolic blood pressure 49 mm[Hg] Dr. Brandon Cantor Work Phone: [facility] Work Phone: 10-19-2021 10:58-0400 Heart rate 65 /min Dr. Brandon Cantor Work Phone: [facility] Work Phone: 10-19-2021 10:58-0400 Systolic blood pressure 111 mm[Hg] Dr. Brandon Cantor Work Phone: [facility] Work Phone: 10-19-2021 10:52-0400 Body temperature 98.1 [degF] Dr. Brandon Cantor Work Phone: [facility] Work Phone: 10-19-2021 10:52-0400 Respiratory rate 15 /min Dr. Brandon Cantor Work Phone: [facility] Work Phone: 10-19-2021 10:52-0400 SaO2% (BldA) [Mass fraction] 96 % Dr. Brandon Cantor Work Phone: [facility] Work Phone: 10-19-2021 07:16-0400 Inhaled oxygen flow rate 2 L/min Dr. Brandon Cantor Work Phone: [facility] Work Phone: 10-19-2021 06:00-0400 Body weight 79.[address] Brandon Cantor Work Phone: [facility] Work Phone: 10-18-2021 13:34-0400 Body mass index (BMI) [Ratio] 25.2 kg/m2 Dr. Brandon Cantor Work Phone: [facility] Work Phone: 10-18-2021 13:13-0400 Body height 177.[address] Brandon Cantor Work Phone: [facility] Work Phone: 10-18-2021 12:30-0400 Body temperature 98.4 [degF] Dr. Brandon Cantor Work Phone: [facility] Work Phone: 10-18-2021 12:30-0400 Diastolic blood pressure 113 mm[Hg] Dr. Brandon Cantor Work Phone: [facility] Work Phone: 10-18-2021 12:30-0400 Heart rate 54 /min Dr. Brandon Cantor Work Phone: [facility] Work Phone: 10-18-2021 12:30-0400 Respiratory rate 16 /min Dr. Brandon Cantor Work Phone: [facility] Work Phone: 10-18-2021 12:30-0400 SaO2% (BldA) [Mass fraction] 96 % Dr. Brandon Cantor Work Phone: [facility] Work Phone: 10-18-2021 12:30-0400 Systolic blood pressure 150 mm[Hg] Dr. Brandon Cantor Work Phone: [facility] Work Phone: 10-18-2021 11:32-0400 Body height 177.[address] Brandon Cantor Work Phone: [facility] Work Phone: 10-18-2021 11:32-0400 Body mass index (BMI) [Ratio] 25.5 kg/m2 Dr. Brandon Cantor Work Phone: [facility] Work Phone: 10-18-2021 11:32-0400 Body weight 80.[address] Brandon Cantor Work Phone: [facility] Work Phone: 10-18-2021 10:24-0400 Body mass index (BMI) [Ratio] 25.4 kg/m2 Dr. Brandon Cantor Work Phone: [facility] Work Phone: 10-18-2021 10:24-0400 Body temperature 95.5 [degF] Dr. Brandon Cantor Work Phone: [facility] Work Phone: 10-18-2021 10:24-0400 Body weight 80.[address] Brandon Cantor Work Phone: [facility] Work Phone: 10-18-2021 10:24-0400 Diastolic blood pressure 62 mm[Hg] Dr. Brandon Cantor Work Phone: [facility] Work Phone: 10-18-2021 10:24-0400 Heart rate 68 /min Dr. Brandon Cantor Work Phone: [facility] Work Phone: 10-18-2021 10:24-0400 Respiratory rate 18 /min Dr. Brandon Cantor Work Phone: [facility] Work Phone: 10-18-2021 10:24-0400 SaO2% (BldA) [Mass fraction] 97 % Dr. Brandon Cantor Work Phone: [facility] Work Phone: 10-18-2021 10:24-0400 Systolic blood pressure 100 mm[Hg] Dr. Brandon Cantor Work Phone: [facility] Work Phone: 10-18-2021 10:24-0400 Body mass index (BMI) [Ratio] 25.4 kg/m2 Dr. Brandon Cantor Work Phone: [facility] Work Phone: 10-18-2021 10:24-0400 Body temperature 95.5 [degF] Dr. Brandon Cantor Work Phone: [facility] Work Phone: 10-18-2021 10:24-0400 Body weight 80.[address] Brandon Cantor Work Phone: [facility] Work Phone: 10-18-2021 10:24-0400 Diastolic blood pressure 62 mm[Hg] Dr. Brandon Cantor Work Phone: [facility] Work Phone: 10-18-2021 10:24-0400 Heart rate 68 /min Dr. Brandon Cantor Work Phone: [facility] Work Phone: 10-18-2021 10:24-0400 Respiratory rate 18 /min Dr. Brandon Cantor Work Phone: [facility] Work Phone: 10-18-2021 10:24-0400 SaO2% (BldA) [Mass fraction] 97 % Dr. Brandon Cantor Work Phone: [facility] Work Phone: 10-18-2021 10:24-0400 Systolic blood pressure 100 mm[Hg] Dr. Brandon Cantor Work Phone: [facility] Work Phone: 10-15-2021 16:31-0400 Diastolic blood pressure 70 mm[Hg] Dr. Brandon Cantor Work Phone: [facility] Work Phone: 10-15-2021 16:31-0400 Heart rate 55 /min Dr. Brandon Cantor Work Phone: [facility] Work Phone: 10-15-2021 16:31-0400 Respiratory rate 16 /min Dr. Brandon Canotr Work Phone: [facility] Work Phone: 10-15-2021 16:31-0400 Systolic blood pressure 166 mm[Hg] Dr. Brandon Cantor Work Phone: [facility] Work Phone: 10-15-2021 14:13-0400 Body height 177.[address] Brandon Cantor Work Phone: [facility] Work Phone: 10-15-2021 14:13-0400 Body mass index (BMI) [Ratio] 26 kg/m2 Dr. Brandon Cantor Work Phone: [facility] Work Phone: 10-15-2021 14:13-0400 Body temperature 97.6 [degF] Dr. Brandon Cantor Work Phone: [facility] Work Phone: 10-15-2021 14:13-0400 Body weight 82.[address] Brandon Cantor Work Phone: [facility] Work Phone: 10-15-2021 14:13-0400 SaO2% (BldA) [Mass fraction] 92 % Dr. Brandon Cantor Work Phone: [facility] Work Phone: 09-28-2021 10:52-0400 Diastolic blood pressure 74 mm[Hg] Delicia Older 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 Work Phone: [facility] 09-28-2021 10:52-0400 Systolic blood pressure 126 mm[Hg] Delicia Older 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 Work Phone: [facility] 09-28-2021 10:32-0400 Body weight 85.28 kg Delicia Older 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 Work Phone: [facility] 09-28-2021 10:32-0400 Heart rate 72 /min Delicia Older 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 Work Phone: [facility] 09-28-2021 10:32-0400 Respiratory rate 16 /min Delicia Older 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 Work Phone: [facility] 09-28-2021 10:32-0400 SaO2% (BldA) [Mass fraction] 95 % Delicia Older 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 Work Phone: [facility] 09-13-2021 11:25-0400 Body temperature 97.9 [degF] Ashwin Apodaca MD Work Phone: [facility] 09-13-2021 11:25-0400 Body weight 86.27 kg Ashwin Apodaca MD Work Phone: [facility] 09-13-2021 11:25-0400 Diastolic blood pressure 50 mm[Hg] Ashwin Apodaca MD Work Phone: [facility] 09-13-2021 11:25-0400 Heart rate 67 /min Ashwin Apodaca MD Work Phone: [facility] 09-13-2021 11:25-0400 Respiratory rate 16 /min Ashwin Apodaca MD Work Phone: [facility] 09-13-2021 11:25-0400 SaO2% (BldA) [Mass fraction] 99 % Ashwin Apodaca MD Work Phone: [facility] 09-13-2021 11:25-0400 Systolic blood pressure 100 mm[Hg] Ashwin Apodaca MD Work Phone: [facility] 08-21-2021 12:00-0400 Diastolic blood pressure 51 mm[Hg] Dr. Brandon Cantor Work Phone: [facility] Work Phone: 08-21-2021 12:00-0400 Heart rate 59 /min Dr. Brandon Cantor Work Phone: [facility] Work Phone: 08-21-2021 12:00-0400 Systolic blood pressure 115 mm[Hg] Dr. Brandon Cantor Work Phone: [facility] Work Phone: 08-21-2021 10:47-0400 Body temperature 97.1 [degF] Dr. Brandon Cantor Work Phone: [facility] Work Phone: 08-21-2021 10:47-0400 Respiratory rate 14 /min Dr. Brandon Cantor Work Phone: [facility] Work Phone: 08-21-2021 10:14-0400 Body mass index (BMI) [Ratio] 26.4 kg/m2 Dr. Brandon Cantor Work Phone: [facility] Work Phone: 08-21-2021 10:14-0400 Body weight 83.[address] Brandon Cantor Work Phone: [facility] Work Phone: 08-21-2021 10:14-0400 SaO2% (BldA) [Mass fraction] 94 % Dr. Brandon Cantor Work Phone: [facility] Work Phone: 07-28-2021 15:43-0500 Body temperature 97.6 [degF] Dr. Brandon Cantor Work Phone: [facility] Work Phone: 07-28-2021 15:43-0500 Diastolic blood pressure 67 mm[Hg] Dr. Brandon Cantor Work Phone: [facility] Work Phone: 07-28-2021 15:43-0500 Heart rate 64 /min Dr. Brandon Cantor Work Phone: [facility] Work Phone: 07-28-2021 15:43-0500 Respiratory rate 18 /min Dr. Brandon Cantor Work Phone: [facility] Work Phone: 07-28-2021 15:43-0500 SaO2% (BldA) [Mass fraction] 92 % Dr. Brandon Cantor Work Phone: [facility] Work Phone: 07-28-2021 15:43-0500 Systolic blood pressure 140 mm[Hg] Dr. Brandon Cantor Work Phone: [facility] Work Phone: 07-28-2021 14:43-0500 Body temperature 97.6 [degF] Dr. Brandon Cantor Work Phone: [facility] Work Phone: 07-28-2021 14:43-0500 Diastolic blood pressure 67 mm[Hg] Dr. Brandon Cantor Work Phone: [facility] Work Phone: 07-28-2021 14:43-0500 Heart rate 64 /min Dr. Brandon Cantor Work Phone: [facility] Work Phone: 07-28-2021 14:43-0500 Respiratory rate 18 /min Dr. Brandon Cantor Work Phone: [facility] Work Phone: 07-28-2021 14:43-0500 SaO2% (BldA) [Mass fraction] 92 % Dr. Brandon Cantor Work Phone: [facility] Work Phone: 07-28-2021 14:43-0500 Systolic blood pressure 140 mm[Hg] Dr. Brandon Cantor Work Phone: [facility] Work Phone: 07-26-2021 15:18-0500 Body weight 88.[address] Brandon Cantor Work Phone: [facility] Work Phone: 07-26-2021 14:18-0500 Body weight 88.[address] Brandon Cantor Work Phone: [facility] Work Phone: 07-23-2021 23:03-0500 Body mass index (BMI) [Ratio] 28 kg/m2 Dr. Brandon Cantor Work Phone: [facility] Work Phone: 07-23-2021 22:42-0500 Inhaled oxygen concentration 2 % Dr. Brandon Cantor Work Phone: [facility] Work Phone: 07-23-2021 22:03-0500 Body mass index (BMI) [Ratio] 28 kg/m2 Dr. Brandon Cantor Work Phone: [facility] Work Phone: 07-23-2021 21:42-0500 Inhaled oxygen concentration 2 % Dr. Brandon Cantor Work Phone: [facility] Work Phone: 07-22-2021 15:34-0500 Body temperature 98.9 [degF] Dr. Brandon Cantor Work Phone: [facility] Work Phone: 07-22-2021 15:34-0500 Diastolic blood pressure 44 mm[Hg] Dr. Brandon Cantor Work Phone: [facility] Work Phone: 07-22-2021 15:34-0500 Heart rate 62 /min Dr. Brandon Cantor Work Phone: [facility] Work Phone: 07-22-2021 15:34-0500 Respiratory rate 18 /min Dr. Brandon Cantor Work Phone: [facility] Work Phone: 07-22-2021 15:34-0500 SaO2% (BldA) [Mass fraction] 91 % Dr. Brandon Cantor Work Phone: [facility] Work Phone: 07-22-2021 15:34-0500 Systolic blood pressure 100 mm[Hg] Dr. Brandon Cantor Work Phone: [facility] Work Phone: 07-22-2021 14:34-0500 Body temperature 98.9 [degF] Dr. Brandon Cantor Work Phone: [facility] Work Phone: 07-22-2021 14:34-0500 Diastolic blood pressure 44 mm[Hg] Dr. Brandon Cantor Work Phone: [facility] Work Phone: 07-22-2021 14:34-0500 Heart rate 62 /min Dr. Brandon Cantor Work Phone: [facility] Work Phone: 07-22-2021 14:34-0500 Respiratory rate 18 /min Dr. Brandon Cantor Work Phone: [facility] Work Phone: 07-22-2021 14:34-0500 SaO2% (BldA) [Mass fraction] 91 % Dr. Brandon Cantor Work Phone: [facility] Work Phone: 07-22-2021 14:34-0500 Systolic blood pressure 100 mm[Hg] Dr. Brandon Cantor Work Phone: [facility] Work Phone: 07-21-2021 14:06-0500 Body mass index (BMI) [Ratio] 28.1 kg/m2 Dr. Brandon Cantor Work Phone: [facility] Work Phone: 07-21-2021 14:06-05[address] Body weight [address] Brandon Cantor Work Phone: [facility] Work Phone: 07-21-2021 13:06-0500 Body mass index (BMI) [Ratio] 28.1 kg/m2 Dr. Brandon Cantor Work Phone: [facility] Work Phone: 07-21-2021 13:06-0500 Body weight [address] Brandon Cantor Work Phone: [facility] Work Phone: 01-05-2017 08:52-0400 BMI (Body Mass Index) 29.02 kg/m2 Daja Monsivais PA-C [facility] [employer] Work Phone: 01-05-2017 08:52-0400 Body Temperature 98.1 [degF] Daja Monsivais PA-C [facility] [employer] Work Phone: 01-05-2017 08:52-0400 BP Diastolic 74 mm[Hg] Daja Monsivais PA-C [facility] [employer] Work Phone: 01-05-2017 08:52-0400 BP Systolic 140 mm[Hg] Daja Monsivais PA-C [facility] [employer] Work Phone: 01-05-2017 08:52-0400 Height 182.88 cm Daja Monsivais PA-C [facility] [employer] Work Phone: 01-05-2017 08:52-0400 Pulse (Heart Rate) 70 /min Daja Monsivais PA-C [facility] [employer] Work Phone: 01-05-2017 08:52-0400 Respiratory Rate 20 /min Daja Monsivais PA-C [facility] [employer] Work Phone: 01-05-2017 08:52-0400 Weight 97.07 kg Daja Monsivasi PA-C [facility] Work Phone: Encounters Encounter Date Encounter Type Care Provider Facility Start: 12-20-2024 End: 12-20-2024 Patient encounter procedure Chris Pearson MD Work Phone: Neurology Comment on above: Parkinson's disease, unspecified whether dyskinesia present, unspecified whether manifestations fluctuate (HCC) (Primary Dx); Abnormality of gait; Lightheaded; Bradycardia Start: 12-20-2024 End: 12-20-2024 ambulatory CHRIS PEARSON JR Facility:[facility] Start: 12-13-2024 End: 12-13-2024 Patient encounter procedure Debra Castrejon Work Phone: Podiatry Comment on above: Onychomycosis (Prima ry Dx); Pain in toe of left foot; Pain in toe of right foot; Callus of foot Start: 12-13-2024 End: 12-13-2024 ambulatory DEBRA JEWELLSIOMARA Facility:[facility] Start: 11-25-2024 End: 11-25-2024 Orders Only Douglas Mortensen MD Work Phone: Cardiology Comment on above: Sinus bradycardia (P rimary Dx) Start: 11-18-2024 End: 11-26-2024 Telephone encounter Brandon Cantor MD Work Phone: Cardiology Comment on above: Appointment; Orders Start: 11-15-2024 End: 11-15-2024 Office outpatient visit 25 minutes Brandon Cantor MD Work Phone: Internal [facility] [place] Comment on above: Bradyarrhythmia (Ivis nathanael Dx); Primary hypertension; Dizziness; Nausea without vomiting; Anxiety Start: 11-15-2024 End: 11-15-2024 ambulatory BRANDON CANTOR Facility:[facility] Start: 10-18-2024 End: 10-18-2024 Office outpatient visit 25 minutes Brandon Cantor MD Work Phone: Internal [facility] [place] Comment on above: Near syncope (Primar y Dx); Primary hypertension; Bradyarrhythmia; Coronary artery disease of [place] artery of [place] heart with stable angina pectoris; Parkinson's disease, unspecified whether dyskinesia present, unspecified whether manifestations fluctuate (HCC) Start: 10-18-2024 End: 10-18-2024 ambulatory BRANDON CANTOR Facility:[facility] Start: 09-27-2024 End: 09-27-2024 ambulatory BRANDON CANTOR Facility:[facility] Start: 09-20-2024 End: 09-23-2024 Telephone encounter Brandon Cantor MD Work Phone: Internal Medicine [place] Comment on above: Patient Question Start: 09-12-2024 End: 09-12-2024 Office outpatient visit 25 minutes Brandon Cantor MD Work Phone: Internal [facility] [place] Comment on above: Dizziness (Primary D x); Near syncope; Bradycardia; Orthostatic hypotension; Stage 3a chronic kidney disease (HCC); Abnormal CXR Start: 09-12-2024 End: 09-12-2024 ambulatory BRANDON CANTOR Facility:[facility] Start: 09-12-2024 End: 09-12-2024 Patient encounter procedure Debra Castrejon Work Phone: Podiatry Comment on above: Onychomycosis (Prima ry Dx); Pain in toe of left foot; Pain in toe of right foot; Callus of foot Start: 09-10-2024 End: 09-10-2024 Emergency department patient visit Dr. Brandon Cantor MD Work Phone: -Emergency Department Work Phone: Start: 09-10-2024 End: 09-11-2024 Telephone encounter Brandon Cantor MD Work Phone: Internal Medicine [place] Comment on above: Patient Update Start: 09-02-2024 End: 09-02-[address] Brandon Cantor MD Work Phone: [facility] Work Phone: Start: 09-02-2024 End: 09-02-2024 Patient encounter procedure [address] [facility] -Laboratory Work Phone: Start: 09-02-2024 End: 09-02-2024 ambulatory Angelica Allyn Facility:[facility] Start: 08-16-2024 End: 08-16-2024 Patient encounter procedure Chris Pearson MD Work Phone: Neurology Comment on above: Parkinson's disease, unspecified whether dyskinesia present, unspecified whether manifestations fluctuate (HCC) (Primary Dx); Abnormality of gait Start: 08-16-2024 End: 08-16-2024 ambulatory CHRIS PEARSON JR Facility:[facility] Start: 08-09-2024 End: 08-10-2024 Refill Brandon Cantor MD Work Phone: Internal Medicine [place] Comment on above: Refill Request Start: 08-05-2024 End: 08-05-2024 ambulatory Chris Pearson Facility:[facility] Start: 08-05-2024 End: 08-05-[address] Chris Pearson MD -Physical Therapy Work Phone: Start: 07-30-2024 End: 07-31-2024 Refill Brandon Cantor MD Work Phone: Family Medicine [place] Comment on above: Refill Request Start: 06-17-2024 End: 06-17-[address] Emory Isabel DO -[facility] Work Phone: Start: 06-17-2024 End: 06-17-2024 ambulatory Brandon Cantor Facility:[facility] Start: 06-14-2024 End: 06-14-2024 ambulatory DEBRA CASTREJON Facility:[facility] Start: 06-14-2024 End: 06-14-2024 Patient encounter procedure Debra Castrejon Work Phone: Podiatry Comment on above: Onychomycosis (Prima ry Dx); Pain in toe of left foot; Pain in toe of right foot; Callus of foot Start: 06-06-2024 End: 06-06-2024 Telephone encounter Chris Pearson MD Work Phone: Neurology Start: 05-18-2024 End: 05-18-2024 ambulatory BRANDON CANTOR Facility:[facility] Start: 05-17-2024 End: 05-17-2024 ambulatory BRANDON CANTOR Facility:[facility] Start: 05-17-2024 End: 05-17-2024 Patient encounter procedure Brandon Cantor MD Work Phone: Internal Medicine [place] Comment on above: Medicare annual well ness visit, subsequent (Primary Dx); Anxiety; Primary hypertension; Vasomotor rhinitis; Screening for depression; Parkinson's disease, unspecified whether dyskinesia present, unspecified whether manifestations fluctuate (HCC); Coronary artery disease of [place] artery of [place] heart with stable angina pectoris (HCC); Platelets decreased (HCC); Stage 3a chronic kidney disease (HCC); Thyrotoxicosis without thyroid storm, unspecified thyrotoxicosis type; Need for COVID-19 vaccine; History of renal cell cancer Start: 05-13-2024 End: 05-13-2024 ambulatory CHRIS PEARSON JR Facility:[facility] Start: 05-13-2024 End: 05-13-2024 Patient encounter procedure Chris Pearson MD Work Phone: Neurology Comment on above: Parkinson's disease, unspecified whether dyskinesia present, unspecified whether manifestations fluctuate (HCC) (Primary Dx); Abnormality of gait Start: 05-06-2024 End: 05-06-2024 ambulatory Brandon Cantor Facility:[facility] Start: 04-29-2024 End: 04-29-2024 Telephone encounter Brandon Cantor MD Work Phone: Internal Medicine [place] Comment on above: Letter for excuse fr om jury duty Start: 04-15-2024 End: 04-15-2024 ambulatory DOUGLAS MORTENSEN Facility:[facility] Start: 04-15-2024 End: 04-15-2024 Patient encounter procedure Douglas Mortensen MD Work Phone: Cardiology Comment on above: Primary hypertension (Primary Dx); Hyperlipidemia LDL goal <100; Coronary artery disease of [place] artery of [place] heart with stable angina pectoris (HCC) Start: 04-09-2024 End: 04-09-2024 ambulatory Brandon Cantor Facility:[facility] Start: 04-01-2024 End: 04-01-2024 Refill Brandon Cantor MD Work Phone: Internal Medicine [place] Comment on above: Refill Request Start: 03-22-2024 End: 03-22-2024 ambulatory Davrufus Smallssiomara VALDOVINOS [facility] [place] Start: 03-22-2024 End: 03-22-2024 Patient encounter procedure Davrufus De Santiago BONIFACIO [facility] [place] Comment on above: Population Health Na vigation Outreach ([employer] [facility] [place] [facility]) Start: 03-11-2024 End: 03-11-2024 ambulatory DEBRA CASTREJON Facility:[facility] Start: 03-11-2024 End: 03-11-2024 Patient encounter procedure Debra Lucía Work Phone: Podiatry Comment on above: Onychomycosis (Prima ry Dx); Pain in toe of left foot; Pain in toe of right foot Start: 02-20-2024 End: 02-20-2024 E-mail encounter from caregiver Chris Pearson Jr., MD Work Phone: Neurology Start: 02-20-2024 End: 02-20-2024 Patient encounter procedure Chris Pearson MD Work Phone: Neurology Comment on above: Neurology appointmen t Start: 01-29-2024 End: 01-29-2024 Refill Branodn Cantor MD Work Phone: Internal Medicine [place] Comment on above: Refill Request Start: 01-22-2024 End: 01-22-2024 ambulatory Dav De Santiago MA [facility] [place] Start: 01-22-2024 End: 01-22-2024 Patient encounter procedure Dav De Santiago MA [facility] Comment on above: Erroneous encounter- disregard Start: 12-14-2023 End: 12-14-2023 ambulatory Brandon Cantor Facility:[facility] Start: 12-04-2023 End: 12-04-2023 Patient encounter procedure Debra Castrejon Work Phone: Podiatry Comment on above: Onychomycosis (Prima ry Dx); Pain in toe of left foot; Pain in toe of right foot Start: 11-22-2023 ambulatory Dav stanton MA [facility] [place] Start: 11-22-2023 Patient encounter procedure Dav De Santiago MA [facility] Comment on above: Population Health Na vigation Outreach ([employer] [facility] CURRENT ROSTER workbench - Care gaps, HCC gap closure - [facility]) Start: 11-09-2023 End: 11-09-2023 Patient encounter procedure Brandon Cantor MD Work Phone: Internal Medicine [place] Comment on above: Bilateral hearing lo ss, unspecified hearing loss type (Primary Dx); Parkinson's disease, unspecified whether dyskinesia present, unspecified whether manifestations fluctuate ([facility]); Anxiety; Primary hypertension; Thyrotoxicosis without thyroid storm, unspecified thyrotoxicosis type; Need for COVID-19 vaccine Start: 09-12-2023 End: 09-12-[address] Brandon Cantor Work Phone: [facility] Work Phone: Start: 09-12-2023 End: 09-12-[address] Brandon Cantor Work Phone: [facility] Work Phone: Start: 09-01-2023 End: 09-01-[address] Brandon Cantor Work Phone: [facility] Work Phone: Start: 08-23-2023 End: 08-23-[address] Brandon Catnor Work Phone: [facility] Work Phone: Start: 08-23-2023 End: 08-23-[address] Brandon Cantor Work Phone: [facility] Work Phone: Start: 08-21-2023 Non-patient / Non-visit Dr. Magda Cantor Work Phone: [facility] Start: 08-20-2023 End: 08-21-2023 Evaluation and management of inpatient [facility]. Brandon Cantor [facility] Work Phone: Start: 08-20-2023 Non-patient / Non-visit Dr. Magda Cantor Work Phone: [facility] Start: 08-19-2023 Non-patient / Non-visit Dr. Magda Cantor Work Phone: [facility] Start: 08-18-2023 Evaluation and management of inpatient Dr. Brandon Cantor [facility] Work Phone: Start: 08-18-2023 Non-patient / Non-visit Dr. Magda Cantor Work Phone: [facility] Start: 08-18-[address] Rakel Cantor Work Phone: [facility] Work Phone: Start: 08-17-2023 End: 08-17-2023 Patient encounter procedure Debra Castrejon Work Phone: Podiatry Comment on above: Onychomycosis (Prima ry Dx); Pain in toe of left foot; Pain in toe of right foot Start: 06-23-2023 End: 06-23-[address] Brandon Cantor Work Phone: [facility] Work Phone: Start: 06-23-2023 End: 06-23-[address] Brandon Cantor Work Phone: [facility] Work Phone: Start: 06-15-2023 End: 06-15-[address] Brandon Cantor Work Phone: [facility] Work Phone: Start: 06-15-2023 End: 06-15-[address] Brandon Cantor Work Phone: [facility]Laboratory Work Phone: Start: 06-14-2023 End: 06-14-[address] Brandon Cantor Work Phone: [facility] Work Phone: Start: 04-19-2023 Non-patient / Non-visit Dr. Magda Cantor Work Phone: [facility] Start: 04-19-2023 End: 04-19-2023 Admission to same day surgery center Dr. Brandon Cantor Work Phone: [facility]End[facility] Work Phone: Start: 04-19-2023 End: 04-19-[address] Brandon Cantor Work Phone: [facility] Work Phone: Start: 04-17-2023 End: 04-17-2023 Patient encounter procedure Douglas Mortensen MD Work Phone: Cardiology Comment on above: Primary hypertension (Primary Dx); Hyperlipidemia LDL goal <100; Coronary artery disease of [place] artery of [place] heart with stable angina pectoris (HCC) Start: 04-12-2023 End: 04-12-[address] Brandon Cantor Work Phone: [facility] Work Phone: Start: 04-05-2023 Non-patient / Non-visit Dr. Magda Cantor Work Phone: [facility] Start: 04-05-2023 End: 04-05-[address] Brandon Cantor Work Phone: [facility] Work Phone: Start: 04-05-2023 End: 04-05-[address] [facility] Work [facility]: Start: 03-28-2023 Refill Brandon rizzo MD Work Phone: Internal Medicine [place] Comment on above: Refill Request Start: 03-14-2023 Patient encounter procedure [facility] Provider [facility] Start: 03-09-2023 End: 03-09-[address] Brandon Cantor Work Phone: [facility] Work Phone: Start: 02-21-2023 End: 02-21-[address] Brandon Cantor Work Phone: [facility] Work Phone: Start: 02-21-2023 End: 02-21-[address] Brandon Cant[facility] Work Phone: Start: 02-13-2023 Patient encounter procedure [facility] Provider [facility] Start: 02-03-2023 End: 02-03-2023 Patient encounter procedure Debra Jewellhernando Work Phone: Podiatry Comment on above: Onychomycosis (Prima ry Dx); Pain in toe of left foot; Pain in toe of right foot Start: 02-02-2023 Non-patient / Non-visit Dr. Magda Cantor Work Phone: [facility] Start: 02-02-2023 End: 02-02-2023 Admission to same day surgery center Dr. Brandon Cantor Work Phone: [facility] Work Phone: Start: 02-02-2023 End: 02-02-[address] Brandon Cantor Work Phone: [facility] Work Phone: Start: 01-23-2023 Refill Brandon rizzo MD Work Phone: Internal Medicine [place] Comment on above: Refill Request Start: 01-12-2023 End: 01-12-[address] Brandon Cantor Work Phone: [facility] Work Phone: Start: 12-28-2022 End: 12-28-[address] Brandon Cantor Work Phone: [facility] Work Phone: Start: 12-12-2022 End: 12-12-[address] Brandon Cantor Work Phone: [facility]iology, [facility] Work Phone: Start: 11-23-2022 End: 11-23-[address] Brandon Cantor Work Phone: [facility] Work Phone: Start: 11-04-2022 End: 11-04-2022 Patient encounter procedure Delicia Olamide GOMEZ Work Phone: Internal Medicine [place] Comment on above: Primary hypertension (Primary Dx); Chronic diarrhea; Anxiety; Insomnia, unspecified type; Hyperlipidemia LDL goal <100; Hyperthyroidism, subclinical; Platelets decreased (HCC) Start: 09-20-2022 End: 09-20-[address] Brandon Cantor Work Phone: [facility] Work Phone: Start: 09-20-2022 End: 09-20-[address] Brandon Cantor Work Phone: [facility] Start: 09-08-2022 End: 09-08-[address] Brandon Cantor Work Phone: [facility] Endocrinology Start: 09-02-2022 End: 09-02-[address] Brandon Cantor Work Phone: [facility] Gastroenterology Start: 08-31-2022 End: 08-31-2022 Subsequent hospital visit by physician [employer] [facility] (I-Stat/1.5t) Work Phone: Radiology Comment on above: Transient cerebral i schemia, unspecified type [G45.9] Start: 08-11-2022 End: 08-11-2022 Patient encounter procedure Angelicacuauhtemoc Ledbetter APRN.CNP Work Phone: Neurology Comment on above: Parkinson's disease (HCC) (Primary Dx); TIA (transient ischemic attack); Transient cerebral ischemia, unspecified type; Diplopia; Vertigo Start: 08-10-2022 ambulatory Brandon rizzo MD Work Phone: Internal Medicine [place] Comment on above: Dizziness Start: 08-10-2022 End: 08-10-2022 Emergency department patient visit Dr. Brandon Cantor Work Phone: [facility] Start: 08-04-2022 End: 08-04-2022 Patient encounter procedure Brandon Cantor MD Work Phone: Internal Medicine [place] Comment on above: Acute hip pain, left (Primary Dx); Primary hypertension; Coronary artery disease of [place] artery of [place] heart with stable angina pectoris (HCC); Vasomotor rhinitis Start: 07-18-2022 End: 07-18-2022 Patient encounter procedure Debra Castrejon Work Phone: Podiatry Comment on above: Onychomycosis (Prima ry Dx); Pain in toe of left foot; Pain in toe of right foot Start: 06-27-2022 End: 06-27-[address] Brandon Cantor Work Phone: [facility] Work Phone: Start: 06-27-2022 End: 06-27-[address] Brandon Cantor Work Phone: [facility]-Laboratory, Specimen Start: 06-23-2022 End: 06-23-[address] Brandon Cantor Work Phone: [facility] Work Phone: Start: 06-23-2022 End: 06-23-[address] 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 Brandon Cantor Work Phone: [facility] Work Phone: Start: 06-07-2022 End: 06-07-[address] Brandon Cantor Work Phone: [facility] Start: 05-10-2022 End: 05-10-[address] Brandon Cantor Work Phone: [facility] Gastroenterology Start: 05-03-2022 Patient Outreach Brandon aguilera MD Work Phone: Internal Medicine [place] Comment on above: Transition Of Care Start: 04-30-2022 End: 05-01-2022 Evaluation and management of inpatient Dr. Brandon Cantor Work Phone: [facility]Medical Surgical 3 Start: 04-30-2022 Non-patient / Non-visit Dr. Magda Cantor Work Phone: [facility] Start: 04-29-2022 Non-patient / Non-visit Dr. Magda Cantor Work Phone: [facility] Start: 04-26-2022 Non-patient / Non-visit Dr. Magda Cantor Work Phone: [facility] Start: 04-26-2022 End: 04-26-2022 Admission to same day surgery center Dr. Brandon Cantor Work Phone: [facility]Endoscopy Start: 04-26-2022 End: 04-26-[address] Brandon Cantor Work Phone: [facility] Work Phone: Start: 04-12-2022 End: 04-12-[address] Brandon Cantor Work Phone: [facility] Start: 04-07-2022 End: 04-07-[address] Brandon Cantor Work Phone: [facility] Endocrinology Start: 04-05-2022 End: 04-05-2022 Patient encounter procedure Debra Castrejon Work Phone: Podiatry Comment on above: Onychomycosis (Prima ry Dx); Pain in toe of left foot; Pain in toe of right foot Start: 04-04-2022 End: 04-04-2022 Patient encounter procedure Douglas Mortensen MD Work Phone: Cardiology Comment on above: Coronary artery dise ase involving [place] coronary artery of [place] heart without angina pectoris [I25.10 (ICD-10-CM)] (Primary Dx) Start: 04-01-2022 End: 04-01-2022 Patient encounter procedure Delicia Quiñonez APRN.CNP Work Phone: Internal Medicine [place] Comment on above: Medicare annual well ness visit, subsequent (Primary Dx); Chronic diarrhea; Anxiety; Insomnia, unspecified type; Primary hypertension; Hyperlipidemia LDL goal <100; Abnormal weight loss; Hyperthyroidism, subclinical; Encounter for immunization; Multiple lung nodules on CT; Coronary artery disease of [place] artery of [place] heart with stable angina pectoris (HCC) Start: 03-29-2022 End: 03-29-2022 Refill Brandon Cantor MD Work Phone: Internal Medicine [place] Comment on above: Refill Request Start: 03-29-2022 Non-patient / Non-visit Dr. Magda Cantor Work Phone: [facility] Start: 03-29-2022 End: 03-29-[address] Brandon Cantor Work Phone: [facility]Cardi[facility] Services Start: 03-01-2022 End: 03-01-[address] Brandon Cantor Work Phone: [facility] Gastroenterology Start: 02-16-2022 End: 02-24-2022 Evaluation and management of inpatient Dr. Brandon Cantor Work Phone: [facility]Medical Surgical 3 Start: 02-14-2022 End: 02-14-[address] Brandon Cantor Work Phone: [facility] Work Phone: Start: 02-14-2022 End: 02-14-[address] Brandon Cantor Work Phone: [facility] Start: 02-14-2022 End: 02-14-[address] Brandon Cantor Work Phone: [facility] Neurology Start: 01-14-2022 Refill Brandon rizzo MD Work Phone: Internal Medicine [place] Comment on above: Refill Request Start: 01-06-2022 End: 01-06-[address] Brandon Cantor Work Phone: [facility] Start: 01-03-2022 End: 01-03-[address] [facility] Start: 12-27-2021 Refill Brandon rizzo MD Work Phone: Internal Medicine [place] Comment on above: Refill Request Start: 12-07-2021 End: 12-07-[address] Brandon Cantor Work Phone: [facility] Start: 12-03-2021 End: 12-03-2021 Patient encounter procedure Debra Jewellhernando Work Phone: Podiatry Comment on above: Onychomycosis (Prima ry Dx); Pain in toe of left foot; Pain in toe of right foot Start: 12-01-2021 Telephone encounter Brandon foley MD Work Phone: Internal Medicine [place] Comment on above: Patient Question Start: 11-30-2021 End: 11-30-[address] Brandon Cantor Work Phone: [facility] Endocrinology Start: 11-25-2021 End: 11-25-2021 Patient encounter procedure Angelica Ledbetter APRN.CNP Work Phone: Neurology Comment on above: Parkinson's disease (HCC) (Primary Dx) Start: 11-17-2021 End: 11-17-2021 Patient encounter procedure Brandon Cantor MD Work Phone: Internal Medicine [place] Comment on above: Chronic diarrhea (Pr imary Dx); Abnormal weight loss; Anxiety; Parkinson's disease (HCC) Start: 11-15-2021 End: 11-15-[address] Brandon Cantor Work Phone: [facility] Start: 11-14-2021 End: 11-14-2021 Emergency department patient visit Dr. Brandon Cantor Work Phone: [facility]Emergency Department Start: 10-28-2021 End: 10-28-[address] Brandon Cantor Work Phone: [facility]Speech Therapy Start: 10-28-[address] Jamie Cantor Work Phone: [facility] Start: 10-19-2021 Non-patient / Non-visit Dr. Magda Cantor Work Phone: [facility] Start: 10-18-2021 Non-patient / Non-visit Dr. Magda Cantor Work Phone: [facility] Start: 10-18-2021 Telephone encounter Brandon foley MD Work Phone: Internal Medicine [place] Comment on above: Patient Update Start: 10-18-2021 Non-patient / Non-visit Dr. Magda Cantor Work Phone: [facility] Start: 10-18-2021 End: 10-19-2021 Evaluation and management of inpatient Dr. Brandon Cantor Work Phone: [facility]-Progressive Care Unit Start: 10-18-2021 End: 10-18-[address] Brandon Catnor Work Phone: [facility] Endocrinology Start: 10-15-2021 End: 10-15-2021 Emergency department patient visit Dr. Brandon Cantor Work Phone: [facility]Emergency Department Start: 10-11-2021 End: 10-11-2021 ambulatory Daja Lemus Alfred MANZANARES Work Phone: Neurology Comment on above: Parkinson disease (H CC) (Primary Dx); Tremor of both hands; Abnormal gait; Family history of Parkinson disease Start: 10-11-2021 End: 10-11-2021 Telemedicine consultation with patient Daja Lemus Alfred MANZANARES Work Phone: [facility] Start: 09-28-2021 End: 09-28-2021 Patient encounter procedure Delicia Quiñonez APRN.CNP Work Phone: Internal Medicine [place] Comment on above: Tremor of both hands (Primary Dx); Abnormal gait; Family history of Parkinson disease; Hyperthyroidism, subclinical Start: 09-13-2021 Telephone encounter Tu Apodaca MD Work Phone: Family Medicine [place] Comment on above: Results Start: 09-13-2021 End: 09-13-2021 Subsequent hospital visit by physician [facility] (I-Stat) Work Phone: Cat Scan Comment on above: Right lower quadrant abdominal pain [R10.31] Start: 09-13-2021 End: 09-13-2021 Patient encounter procedure Ashwin Apodaca MD Work Phone: Family Medicine [place] Comment on above: Right lower quadrant abdominal pain Start: 09-03-2021 Telephone encounter Brandon foley MD Work Phone: Internal Medicine [place] Comment on above: Insurance Authorizat ion Medication Request Start: 09-01-2021 Telephone encounter Brandon foley MD Work Phone: Internal Medicine [place] Comment on above: Patient Question Start: 08-21-2021 End: 08-21-2021 Emergency department patient visit Dr. Brandon Cantor Work Phone: [facility]Emergency Department Start: 07-28-2021 Non-patient / Non-visit Dr. Magda Cantor Work Phone: [facility] Start: 07-27-2021 Non-patient / Non-visit Dr. Magda Cantor Work Phone: [facility] Start: 07-26-2021 Non-patient / Non-visit Dr. Magda Cantor Work Phone: [facility] Start: 07-25-2021 Non-patient / Non-visit Dr. Magda Cantor Work Phone: [facility] Start: 07-24-2021 Non-patient / Non-visit Dr. Magda Cantor Work Phone: [facility] Start: 07-23-2021 Non-patient / Non-visit Dr. Magda Cantor Work Phone: [facility] Start: 07-23-2021 End: 07-28-2021 Evaluation and management of inpatient Dr. Brandon Cantor [facility] Start: 07-23-2021 Non-patient / Non-visit Dr. Magda Cantor Work Phone: [facility] Start: 07-22-2021 Non-patient / Non-visit Dr. Magda Cantor Work Phone: [facility] Start: 07-21-2021 Non-patient / Non-visit Dr. Magad Cantor Work Phone: [facility] Start: 07-21-2021 End: 07-22-2021 Evaluation and management of inpatient Dr. Brandon Cantor [facility] Start: 07-10-2021 End: 07-10-[address] Brandon Cantor Work Phone: [facility] Procedures Date Procedure Procedure Detail Performing Clinician Start: 09-12-2024 Ecg routine ecg w/least 12 lds i&r only [facility] Provider Start: 09-10-2024 Plain chest X-ray Dr. Brandon Cantor MD Work Phone: Start: 06-17-2024 X-ray of lumbar spine, two or three views Dr. Brandon Cantor MD Work Phone: Start: 06-17-2024 Plain x-ray of pelvis and lower extremity Dr. Brandon Cantor MD Work Phone: Start: 05-17-2024 [employer] COVID-19 VACCINE AGE 12+ YR (COMIRNATY) Brandon Cantor MD Work Phone: Start: 05-17-2024 Adult depression screening assessment Brandon Cantor MD Work Phone: Start: 04-09-2024 Colonoscopy Douglas Mortensen MD Work Phone: Start: 11-09-2023 [employer] COVID-19 VACCINE (2022- SEASON) AGE 12+ YR Brandon Cantor MD Work Phone: Start: 08-18-[address] Brandon Cantor Work Phone: Start: 08-18-[address] Brandon Cantor Work Phone: Start: 08-18-2023 Total cholecystectomy and exploration of common bile duct Dr. Brandon Cantor Work Phone: Start: 08-18-2023 US scan of gallbladder Dr. Brandon Cantor Work Phone: Start: 08-18-2023 Computed tomography of abdomen and pelvis with intravenous contrast Dr. Brandon Cantor Work Phone: Start: 06-23-2023 CT of abdomen and pelvis without contrast Dr. Brandon Cantor Work Phone: Start: 06-15-2023 Plain chest X-ray Dr. Brandon Cantor Work Phone: Start: 04-19-[address] Brandon Cantor Work Phone: Start: 02-21-2023 Radionuclide gastric emptying study Dr. Brandon Cantor Work Phone: Start: 02-02-[address] Brandon Cantor Work Phone: Start: 12-12-2022 Plain chest X-ray Dr. Brandon Cantor Work Phone: Start: 08-29-2022 Mri brain brain stem w/o contrast material Angelica Ledbetter LOGISTICS VICE PRESIDENTJoséEMISSIONS INSPECTOR Work Phone: Start: 08-10-2022 CT of head without contrast Dr. Brandon Cantor Work Phone: Start: 06-07-2022 Plain chest X-ray Dr. Brandon Cantor Work Phone: Start: 04-30-2022 Plain chest X-ray Dr. Brandon Cantor Work Phone: Start: 04-29-2022 CT cervical spine without contrast Dr. Brandon Cantor Work Phone: Start: 04-29-2022 CT of head without contrast Dr. Brandon Cantor Work Phone: Start: 04-29-2022 CT of abdomen and pelvis without contrast Dr. Brandon Cantor Work Phone: Start: 04-26-[address] Brandon Cantor Work Phone: Start: 04-01-2022 PFIZER-BIONTPlastyc COVID-19 BIVALENT BOOSTER VACCINE, AGE 12+ YR Delicia Older LOGISTICS VICE PRESIDENT.ALFREDO Work Phone: Start: 02-16-[address] Brandon Cantor Work Phone: Start: 01-06-2022 Computed tomography of abdomen and pelvis with contrast Dr. Brandon Cantor Work Phone: Start: 10-18-2021 MRI of brain without contrast Dr. Brandon Cantor Work Phone: Start: 10-18-2021 Plain chest X-ray Dr. Brandon Cantor Work Phone: Start: 10-18-2021 CT angiography of head and neck Dr. Rakel Cantor Work Phone: Start: 10-18-2021 CT of head without contrast Dr. Brandon Cantor Work Phone: Start: 10-15-2021 Plain chest X-ray Dr. Brandon Cantor Work Phone: Start: 10-09-2021 Adult depression screening assessment Daja Simon DO Work Phone: Start: 09-13-2021 Ct abdomen & pelvis w/contrast material Ashwin Apodaca MD Work Phone: Start: 08-21-2021 End: 08-21-[address] Rakel Cantor Work Phone: Start: 07-23-2021 Plain chest X-ray Dr. Brandon Cantor Work Phone: Start: 07-23-2021 Radiologic examination of knee Dr. Jamie Cantor Work Phone: Start: 07-23-2021 End: 07-23-2021 Acid fast bacilli culture Dr. Brandon Cantor Work Phone: Start: 07-23-2021 Bacteria identified in Blood by Culture Dr. Brandon Cantor Work Phone: Start: 07-23-2021 End: 07-23-2021 Cytopathology procedure, preparation of smear, genital source Dr. Brandon Cantor Work Phone: Start: 07-23-2021 End: 07-23-[address] Brandon Cantor Work Phone: Start: 07-23-2021 SARS-CoV-2 Antigen (Rapid) Dr. Brandon Cantor Work Phone: Start: 07-23-[address] Brandon Cantor Work Phone: Start: 07-21-2021 Radiologic examination of knee Dr. Jamie Cantor Work Phone: Start: 07-10-2021 Nasal Screen MRSA/MSSA Dr. Brandon Cantor Work Phone: Start: 07-10-2021 Plain chest X-ray Dr. Brandon Cantor Work Phone: Start: 07-10-2021 MRI of lower extremity Dr. Brandon Cantor Work Phone: Start: 09-14-2020 Adult depression screening assessment Brandon Cantor MD Work Phone: Start: 10-12-2018 Colonoscopy Sharon Dougherty MD Work Phone: Start: 01-09-2017 End: 01-09-2017 Diagnostic colonoscopy Daja Monsivais PA-C Work Phone: Acid fast bacilli culture Dr José Cantor Work Phone: Bacteria identified in Blood by Culture Dr. Brandon Cantor Work Phone: Clostridium difficile detection Dr. Brandon Cantor Work Phone: Clostridium difficile detection Dr. Brandon Cantor Work Phone: Cytopathology proced ure, preparation of smear, genital source Dr. Brandon Cantor Work Phone: History of cholecystectomy S/P l aparoscopic cholecystectomy Dr. Brandon Cantor Work Phone: Lactoferrin measurement Dr. Brandon Cantor Work Phone: Mycology culture Dr. Brandon Cantor Work Phone: Nasal Screen MRSA/MSSA Dr. Samantha Cantor Work Phone: SARS-CoV-2 Antigen (Rapid) Meghan Cantor Work Phone: Urine culture Dr. Brandon Cantor Work Phone: Plan of Treatment Date Care Activity Detail Author Start: 01-09-2034 Urine microalbumin profile DTaP,Tdap,Td Vaccine (3 - Td or Tdap) [facility] Start: 03-15-2028 Urine microalbumin profile [facility] Start: 09-28-2027 Diabetes Screening Diabetes Screening [facility] Start: 05-18-2027 Diabetes Screening Diabetes Screening [facility] Start: 05-16-2026 Diabetes Screening Diabetes Screening [facility] Start: 11-15-2025 Annual PCP Team Chronic Disease Visit Annual PCP Team Chronic Disease Visit [facility] Start: 10-18-2025 Annual PCP Team Chronic Disease Visit Annual PCP Team Chronic Disease Visit [facility] Start: 10-18-2025 BP Controlled (<130/80) BP Controlled (<130/80) [facility] Start: 09-27-2025 Creatinine measurement Serum Creatinine [facility] Start: 09-12-2025 Annual PCP Team Chronic Disease Visit Annual PCP Team Chronic Disease Visit [facility] Start: 09-12-2025 BP Controlled (<130/80) BP Controlled (<130/80) [facility] Start: 08-16-2025 BP Controlled (<130/80) BP Controlled (<130/80) [facility] Start: 05-18-2025 Complete blood count Hemoglobin/Hematocrit [facility] Start: 05-18-2025 Creatinine measurement Serum Creatinine [facility] Start: 05-18-2025 Hepatitis B surface antibody level LDL Cholesterol [facility] Start: 05-17-2025 Annual PCP Team Chronic Disease Visit Annual PCP Team Chronic Disease Visit [facility] Start: 05-17-2025 BP Controlled (<130/80) BP Controlled (<130/80) [facility] Start: 05-17-2025 Depression Screening Depression Screening [facility] Start: 04-28-2025 End: 04-28-2025 Patient encounter procedure Cardiology Comment on above: 1yr follow up Start: 04-15-2025 BP Controlled (<130/80) BP Controlled (<130/80) [facility] Start: 04-11-2025 End: 04-11-2025 Patient encounter procedure 04/11/2025 3:40 PM EST Office Visit Neurology [address] [place] [id number] Chris Pearson Jr., MD [address] [place] [address] follow up for [place] Neu[facility] Comment on above: follow up for [place] Start: 04-09-2025 Screening for malignant neoplasm of colon [facility] Start: 03-28-2025 End: 03-28-2025 Patient encounter procedure 03/28/2025 1:40 PM EDT Office Visit Podiatry [address] [place] [address] Debra Castrejon [address] [place] [address] 3 month follow up nail care Podiatry Comment on above: 3 month follow up nail care Start: 02-03-2025 Influenza vaccination Influenza Vaccine (#1) [facility] Start: 01-17-2025 End: 01-17-2025 Patient encounter procedure 01/17/2025 2:20 PM EDT Office Visit [facility] Cardiology [address] [address] Jhonathan Merlos MD [address] [place] [address] ref for Sinus bradycardia by Dr. Balbina jiménez [facility] Cardiology [place] Comment on above: ref for Sinus bradycardia by Dr. Balbina arreaga rs Start: 01-16-2025 End: 01-16-2025 Patient encounter procedure 01/16/2025 2:40 PM EDT Office Visit [facility] [place] [address] [place], [place] [id number] Brandon Cantor MD [address] [place], [place] [id number] 2 month f/u [facility] [place] Comment on above: 2 month f/u Start: 12-20-2024 End: 12-20-2024 Patient encounter procedure 12/20/2024 1:00 PM EDT Office Visit Neurology [address] [place], [place] [id number] Chris Pearson Jr., MD [address] [place], [place] [id number] 3 month PD follow up, 60 per [facility] Comment on above: 3 month PD follow up, 60 per [facility] Start: 12-13-2024 End: 12-13-2024 Patient encounter procedure 12/13/2024 3:20 PM EDT Office Visit Podiatry [address] [place], [place] [id number] Debra Castrejon [address] [place], [place] [id number] 3 month follow up nail care Podiatry Comment on above: 3 month follow up nail care Start: 11-15-2024 Covid-19 Vaccine ( season) Covid-19 Vaccine ( season) [facility] Start: 11-15-2024 End: 11-15-2024 Patient encounter procedure 11/15/2024 11:40 AM EDT Office Visit Internal [facility] [place] [address] [place] [address] Brandon Cantor MD [address] [place] [address] 6 month follow up [facility] [place] Comment on above: 6 month follow up Start: 11-08-2024 Annual PCP Team Chronic Disease Visit Annual PCP Team Chronic Disease Visit [facility] Start: 11-08-2024 BP Controlled (<130/80) BP Controlled (<130/80) [facility] Start: 10-12-2024 End: 01-11-2025 Basic metabolic 2000 panel - Serum or Plasma BASIC METABOLIC PANEL Lab Routine Stage 3a chronic kidney disease (HCC) Expected: 10/12/2024, Expires: 01/11/2025 [facility] Work Phone: Comment on above: Expected: 10/12/2024, Expires: 5 Start: 10-12-2024 End: 10-12-2025 XR Chest PA and Lateral XR CHEST 2V FRONTAL/LAT Radiology Routine Abnormal CXR Expected: 10/12/2024, Expires: 10/12/2025 [facility] Comment on above: Expected: 10/12/2024, Expires: 6 Start: 09-13-2024 DIABETES SCREEN DIABETES SCREEN [facility] Start: 09-13-2024 Diabetes Screening Diabetes Screening [facility] Start: 09-12-2024 End: 09-12-2024 Patient encounter procedure Podiatry Comment on above: 3 month follow up nial care Start: 09-10-2024 [facility] Start: 09-10-2024 [facility] Start: 09-10-2024 [facility] Start: 08-16-2024 DIABETES SCREEN DIABETES SCREEN [facility] Start: 08-16-2024 End: 08-16-2024 Patient encounter procedure 08/16/2024 11:40 AM EDT Office Visit Neurology [address] [place] [address] Chris Pearson Jr., MD [address] [place], [place] [id number] 8 week follow up Neurology Comment on above: 8 week follow up Start: 06-14-2024 End: 06-14-2024 Patient encounter procedure Podiatry Comment on above: 3 month follow up [facility] Start: 06-06-2024 End: 06-06-2024 ambulatory 06/06/2024 10:00 AM EST OT/PT/Speech Visit [facility] [address] [place] [address] Eliezer Marie PT Parkinson's disease, unspecified whether dyskinesia present, unspecified whether manifestations fluctuate (HCC) [G20.A1]; Abnormality of gait [R26.9] [facility] Comment on above: Parkinson's disease, unspecified whether dyskinesia present, unspecified whether manifestations fluctuate (HCC) [G20.A1]; Abnormality of gait [R26.9] Start: 06-05-2024 Advance Directive Discussion Advance Directive Discussion [facility] Start: 06-05-2024 Medicare Advantage Annual Wellness Visit Medicare Advantage Annual Wellness Visit [facility] Start: 05-17-2024 End: 05-17-2024 Patient encounter procedure 05/17/2024 11:00 AM EST Office Visit Internal Medicine [place] [address] [place], [place] [id number] Brandon Cantor MD [address] [place], [place] [id number] Medicare Wellness - 6 month follow up [facility] [place] Comment on above: Medicare Wellness - 6 month follow up Start: 05-16-2024 Complete blood count Hemoglobin/Hematocrit [facility] Start: 05-16-2024 Creatinine measurement Serum Creatinine [facility] Start: 05-16-2024 Hepatitis B surface antibody level LDL Cholesterol [facility] Start: 05-13-2024 End: 05-13-2024 Patient encounter procedure Neurology Comment on above: patient moved from 04/01 due to needing a longer appt time, has never seen Dr. Pearson, hasn't seen neuro since 08/2022- parkinsons patient moved from 1 due to needing a longer appt time, has never seen Dr. Pearson, hasn't seen neuro since 08/2022- parkinsons- referral from 2021 states tremor of hand, abnormal gait, [facility] Start: 05-10-2024 End: 05-10-2024 Patient encounter procedure [facility] [place] Comment on above: 6 month follow up/medicare wellness Medicare Wellness - 6 month follow up Start: 05-10-2024 Annual PCP Team Chronic Disease Visit Annual PCP Team Chronic Disease Visit [facility] Start: 05-10-2024 BP Controlled (<130/80) BP Controlled (<130/80) [facility] Start: 05-10-2024 End: 08-09-2024 CBC panel - Blood by Automated count COMPLETE BLOOD COUNT Lab Routine Primary hypertension Expected: 05/10/2024, Expires: 08/09/2024 [facility] Comment on above: Expected: 05/10/2024, Expires: Start: 05-10-2024 End: 08-09-2024 Comprehensive metabolic 2000 panel - Serum or Plasma COMPREHENSIVE METABOLIC PANEL Lab Routine Primary hypertension Expected: 05/10/2024, Expires: 08/09/2024 [facility] Work Phone: Comment on above: Expected: 05/10/2024, Expires: Start: 05-10-2024 End: 08-09-2024 Lipid 1996 panel - Serum or Plasma LIPID PANEL BASIC Lab Routine Primary hypertension Expected: 05/10/2024, Expires: 08/09/2024 [facility] Comment on above: Expected: 05/10/2024, Expires: Start: 05-10-2024 End: 08-09-2024 Thyrotropin [Units/volume] in Serum or Plasma THYROID STIMULATING HORMONE Lab Routine Thyrotoxicosis without thyroid storm, unspecified thyrotoxicosis type Expected: 05/10/2024, Expires: 08/09/2024 [facility] Comment on above: Expected: 05/10/2024, Expires: Start: 05-10-2024 End: 08-09-2024 Thyroxine (T4) free [Mass/volume] in Serum or Plasma T4 FREE/FREE THYROXINE Lab Routine Thyrotoxicosis without thyroid storm, unspecified thyrotoxicosis type Expected: 05/10/2024, Expires: 08/09/2024 [facility] Comment on above: Expected: 05/10/2024, Expires: Start: 04-17-2024 BP Controlled (<130/80) BP Controlled (<130/80) [facility] Start: 04-15-2024 End: 04-15-2024 Patient encounter procedure 04/15/2024 3:20 PM EST Office Visit Cardiology [address] [place] [phone] Douglas Mortensen MD [address] [facility], [address] [place] [address] 1 year follow up Cardiology Comment on above: 1 year follow up Start: 04-01-2024 End: 04-01-2024 Patient encounter procedure 04/01/2024 3:20 PM EDT Office Visit Neurology [address] [place] [address] Chris Pearson Jr., MD [address] [facility] [address] [place] [phone] parkinsons Neurology Comment on above: parkinsons Start: 03-11-2024 End: 03-11-2024 Patient encounter procedure 03/11/2024 2:00 PM EDT Office Visit Podiatry [address] [place], [place] [phone] Debra Castrejon [address] [address] 3 month follow up nail care Podiatry Comment on above: 3 month follow up nail care Start: 02-04-2024 Covid-19 Vaccine ( season) Covid-19 Vaccine () [facility] Start: 02-04-2024 Influenza vaccination Influenza Vaccine (#1) [facility] Start: 01-22-2024 End: 01-22-2024 Patient encounter procedure 01/22/2024 4:40 PM EDT Office Visit Neurology [address] [place] [address] Chris Pearson Jr., MD [address] [facility] [place] [phone] parkinsons Neurology Comment on above: parkinsons Start: 12-04-2023 End: 12-04-2023 Patient encounter procedure 12/04/2023 2:00 PM EDT Office Visit Podiatry [address] [place], [place] [phone] Debra Castrejon [address] [place] [address] 3 month follow up nail care (R/S from provider out of office on 11/30) Podiatry Comment on above: 3 month follow up nail care (R/S from pr ovider out of office on 11/30) Start: 11-05-2023 ANNUAL PCP TEAM CHRONIC DISEASE VISIT ANNUAL PCP TEAM CHRONIC DISEASE VISIT [facility] Start: 11-05-2023 BP CONTROLLED (<130/80) BP CONTROLLED (<130/80) [facility] Start: 08-23-2023 Patient referral [facility] Work Phone: Start: 08-21-2023 Patient discharge [facility] Start: 08-20-2023 Admission procedure [facility] Start: 08-19-2023 Oxygen therapy [facility] Start: 08-19-2023 Referral to service [facility] Start: 08-19-2023 [facility] Start: 08-19-2023 [facility] Start: 08-19-2023 Application of intermittent pneumatic compression device [facility] Start: 08-19-2023 Referral to occupational therapist [facility] Start: 08-19-2023 Referral to service [facility] Start: 08-19-2023 Introduction of urinary catheter [facility] Start: 08-18-2023 Maintenance of drainage tube [facility] Start: 08-18-2023 [facility] Start: 08-18-2023 Cholangiogram Cholangiogram/ O R,Initial [facility] Start: 08-18-2023 Fluoroscopic guidance O.R. Fluoro for C-Arm [facility] Start: 08-18-2023 Total cholecystectomy and exploration of common bile duct Laparoscopic, Cholecystectomy with IOC (Not Applicable) [facility] Start: 08-18-2023 Following clinical pathway protocol [facility] Start: 08-18-2023 Ambulation without limitation [facility] Start: 08-18-2023 Catheterization of vein [facility] Start: 08-18-2023 Incentive spirometry [facility] Start: 08-18-2023 Measuring intake and output [facility] Start: 08-18-2023 Notification of physician [facility] Start: 08-18-2023 Vital signs measurements [facility] Start: 08-18-2023 End: 08-19-2023 [facility] Start: 08-18-2023 Verification routine [facility] Start: 08-18-2023 Admission procedure [facility] Start: 08-12-2023 BP CONTROLLED (<130/80) BP CONTROLLED (<130/80) [facility] Start: 08-05-2023 ANNUAL PCP TEAM CHRONIC DISEASE VISIT ANNUAL PCP TEAM CHRONIC DISEASE VISIT [facility] Start: 06-05-2023 Advance Directive Discussion Advance Directive Discussion [facility] Start: 06-05-2023 Behavioral Health Screening Behavioral Health Screening [facility] Start: 06-05-2023 Depression Assessment Depression Assessment [facility] Start: 05-06-2023 End: 07-06-2023 Lipid 1996 panel - Serum or Plasma LIPID PANEL BASIC Lab Routine Hyperlipidemia LDL goal <100 Expected: 05/06/2023 (Approximate), Expires: 07/06/2023 [facility] Work Phone: Comment on above: Expected: 05/06/2023 (Approximate), Expi res: 07/06/2023 Start: 05-05-2023 ANNUAL PCP TEAM CHRONIC DISEASE VISIT ANNUAL PCP TEAM CHRONIC DISEASE VISIT [facility] Start: 04-26-2023 Colonoscopy COLONOSCOPY [facility] Start: 04-26-2023 COLORECTAL CANCER SCREENING COLORECTAL CANCER SCREENING [facility] Start: 04-26-2023 Screening for malignant neoplasm of colon [facility] Start: 04-19-2023 Egd dilation gastric/duodenal stricture EGD DILATE STRICTURE [facility] Start: 04-19-2023 Esophagogastroduodenoscopy submucosal injection UPPR GI SCOPE W/SUBMUC INJ [facility] Start: 04-19-2023 Patient discharge [facility] Start: 04-08-2023 Hepatitis B surface antibody level LDL CHOLESTEROL [facility] Start: 04-04-2023 BP CONTROLLED (<130/80) BP CONTROLLED (<130/80) [facility] Start: 04-01-2023 ANNUAL PCP TEAM CHRONIC DISEASE VISIT ANNUAL PCP TEAM CHRONIC DISEASE VISIT [facility] Start: 04-01-2023 BP CONTROLLED (<130/80) BP CONTROLLED (<130/80) [facility] Start: 03-17-2023 BP CONTROLLED (<130/80) BP CONTROLLED (<130/80) [facility] Start: 02-03-2023 Covid-19 Vaccine () Covid-19 Vaccine () [facility] Start: 02-03-2023 Influenza vaccination INFLUENZA (#1) [facility] Start: 02-02-2023 Egd insert guide wire dilator passage esophagus EGD GUIDE WIRE INSERTION [facility] Start: 02-02-2023 Egd transoral biopsy single/multiple EGD BIOPSY SINGLE/MULTIPLE [facility] Start: 02-02-2023 Patient discharge [facility] Start: 11-17-2022 ANNUAL PCP TEAM CHRONIC DISEASE VISIT ANNUAL PCP TEAM CHRONIC DISEASE VISIT [facility] Start: 11-17-2022 BP CONTROLLED (<130/80) BP CONTROLLED (<130/80) [facility] Start: 10-09-2022 Adult depression screening assessment DEPRESSION SCREENING [facility] Start: 09-28-2022 ANNUAL PCP TEAM CHRONIC DISEASE VISIT ANNUAL PCP TEAM CHRONIC DISEASE VISIT [facility] Start: 09-28-2022 BP CONTROLLED (<130/80) BP CONTROLLED (<130/80) [facility] Start: 09-13-2022 ANNUAL PCP TEAM CHRONIC DISEASE VISIT ANNUAL PCP TEAM CHRONIC DISEASE VISIT [facility] Start: 09-13-2022 BP CONTROLLED (<130/80) BP CONTROLLED (<130/80) [facility] Start: 08-16-2022 ANNUAL PCP TEAM CHRONIC DISEASE VISIT ANNUAL PCP TEAM CHRONIC DISEASE VISIT [facility] Start: 08-16-2022 BP CONTROLLED (<130/80) BP CONTROLLED (<130/80) [facility] Start: 08-02-2022 COVID-19 VACCINE (6 - Mixed Product series) COVID-19 VACCINE (6 - Mixed Product series) [facility] Start: 06-14-2022 End: 07-14-2023 Ct thorax w/o contrast material CT CHEST WO IVCON Radiology Routine Lung nodules 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 Work Phone: Comment on above: Expected: 06/14/2022, Expires: Start: 06-05-2022 ADVANCE DIRECTIVE DISCUSSION ADVANCE DIRECTIVE DISCUSSION [facility] Start: 06-05-2022 DEPRESSION ASSESSMENT DEPRESSION ASSESSMENT [facility] Start: 05-01-2022 Patient discharge [facility] Start: 04-30-2022 Admission procedure [facility] Start: 04-29-2022 Oxygen therapy [facility] Start: 04-29-2022 Assessment of risk of venous thromboembolism [facility] Start: 04-29-2022 Catheterization of vein [facility] Start: 04-29-2022 Incentive spirometry [facility] Start: 04-29-2022 Insertion of catheter into peripheral vein [facility] Start: 04-29-2022 Measuring intake and output [facility] Start: 04-29-2022 Providing care according to standard [facility] Start: 04-29-2022 Provision of activity privileges [facility] Start: 04-29-2022 Referral to occupational therapist [facility] Start: 04-29-2022 Referral to service [facility] Start: 04-29-2022 [facility] Start: 04-29-2022 Following clinical pathway protocol [facility] Start: 04-29-2022 Admission procedure [facility] Start: 04-29-2022 Patient referral to dietitian [facility] Start: 04-26-2022 Colonoscopy w/biopsy single/multiple COLONOSCOPY AND BIOPSY [facility] Start: 04-26-2022 Colsc flexible w/transendoscopic balloon dilat COLONOSCOPY W/BALLOON DILAT [facility] Start: 11-22-2022 Colsc flx w/rmvl of tumor polyp lesion snare tq COLONOSCOPY W/LESION REMOVAL [facility] Start: 04-26-2022 Patient discharge [facility] Start: 04-01-2022 End: 06-01-2022 Lipid 1996 panel - Serum or Plasma LIPID PANEL BASIC Lab Routine Hyperlipidemia LDL goal <100 Expected: 04/01/2022, Expires: 06/01/2022 [facility] Work Phone: Comment on above: Expected: 04/01/2022, Expires: Start: 02-24-2022 Patient discharge [facility] Start: 02-18-2022 Consultation [facility] Start: 02-18-2022 Referral to occupational therapist [facility] Start: 02-18-2022 Referral to service [facility] Start: 02-18-2022 Oxygen therapy [facility] Start: 02-17-2022 [facility] Start: 02-17-2022 Referral to occupational therapist [facility] Start: 02-17-2022 Referral to service [facility] Start: 02-17-2022 Removal of urinary catheter [facility] Start: 02-16-2022 Following clinical pathway protocol [facility] Start: 02-16-2022 Admission procedure [facility] Start: 02-14-2022 Balaton and lambda light chains [facility] Work Phone: Start: 02-14-2022 Thiamine measurement [facility] Work Phone: Start: 02-14-2022 Vitamin D, 1,25-dihydroxy measurement [facility] Work Phone: Start: 02-09-2022 Hepatitis B surface antibody level LDL CHOLESTEROL [facility] Start: 02-03-2022 Influenza vaccination INFLUENZA (#1) [facility] Start: 12-10-2021 COVID-19 VACCINE (5 - Booster) COVID-19 VACCINE (5 - Booster) [facility] Start: 11-14-2021 Enteric precautions [facility] Work Phone: Start: 10-19-2021 Patient discharge [facility] Work Phone: Start: 10-18-2021 Application of intermittent pneumatic compression device [facility] Work Phone: Start: 10-18-2021 Following clinical pathway protocol [facility] Work Phone: Start: 10-18-2021 Assessment of risk of venous thromboembolism [facility] Work Phone: Start: 10-18-2021 Cardiac monitoring [facility] Work Phone: Start: 10-18-2021 Catheterization of vein [facility] Work Phone: Start: 10-18-2021 Elevation of head of bed [facility] Work Phone: Start: 10-18-2021 Exercises [facility] Work Phone: Start: 10-18-2021 Implementation of planned interventions [facility] Work Phone: Start: 10-18-2021 Incentive spirometry [facility] Work Phone: Start: 10-18-2021 Insertion of catheter into peripheral vein [facility] Work Phone: Start: 10-18-2021 Measuring intake and output [facility] Work Phone: Start: 10-18-2021 Notification of physician [facility] Work Phone: Start: 10-18-2021 Oxygen therapy [facility] Work Phone: Start: 10-18-2021 Providing care according to standard [facility] Work Phone: Start: 10-18-2021 Referral to occupational therapist [facility] Work Phone: Start: 10-18-2021 Referral to service [facility] Work Phone: Start: 10-18-2021 Speech therapy assessment [facility] Work Phone: Start: 10-18-2021 Tobacco use cessation education [facility] Work Phone: Start: 10-18-2021 [facility] Work Phone: Start: 10-18-2021 Admission procedure [facility] Work Phone: Start: 10-18-2021 Bleeding precautions [facility] Work Phone: Start: 10-15-2021 [facility] Work Phone: Start: 09-14-2021 Adult depression screening assessment DEPRESSION SCREENING [facility] Start: 08-21-2021 Enteric precautions [facility] Work Phone: Start: 07-28-2021 Patient discharge [facility] Work Phone: Start: 07-27-2021 Introduction of urinary catheter [facility] Work Phone: Start: 07-27-2021 Care planning and problem solving actions [facility] Work Phone: Start: 07-27-2021 [facility] Work Phone: Start: 07-27-2021 Introduction of urinary catheter [facility] Work Phone: Start: 07-25-2021 Incentive spirometry [facility] Work Phone: Start: 07-24-2021 Oxygen therapy [facility] Work Phone: Start: 07-24-2021 Consultation [facility] Work Phone: Start: 07-23-2021 Referral to occupational therapist [facility] Work Phone: Start: 07-23-2021 Referral to service [facility] Work Phone: Start: 07-23-2021 Following clinical pathway protocol [facility] Work Phone: Start: 07-23-2021 Admission procedure [facility] Work Phone: Start: 07-22-2021 Patient discharge [facility] Work Phone: Start: 07-21-2021 Oxygen therapy [facility] Work Phone: Start: 07-21-2021 Following clinical pathway protocol [facility] Work Phone: Start: 07-21-2021 Anesth open/surg arthrs total knee arthroplasty ANESTH KNEE ARTHROPLASTY [facility] Work Phone: Start: 07-21-2021 Arthrp kne condyle&platu medial&lat compartments TOTAL KNEE ARTHROPLASTY [facility] Work Phone: Start: 07-21-2021 COVID-19 VACCINE (4 - Booster) COVID-19 VACCINE (4 - Booster) [facility] Start: 07-21-2021 Injection aa&/strd femoral nerve NJX AA&/STRD FEMORAL NERVE [facility] Work Phone: Start: 07-21-2021 Provision of overbed trapeze [facility] Work Phone: Start: 07-21-2021 Admission procedure [facility] Work Phone: Start: 07-21-2021 Ambulation therapy management [facility] Work Phone: Start: 07-21-2021 Application of antithromboembolic stockings [facility] Work Phone: Start: 07-21-2021 Application of device [facility] Work Phone: Start: 07-21-2021 Application of elastic bandage [facility] Work Phone: Start: 07-21-2021 Application of intermittent pneumatic compression device [facility] Work Phone: Start: 07-21-2021 Assessment of risk of venous thromboembolism [facility] Work Phone: Start: 07-21-2021 Catheterization of vein [facility] Work Phone: Start: 07-21-2021 Consultation [facility] Work Phone: Start: 07-21-2021 Exercises [facility] Work Phone: Start: 07-21-2021 Following clinical pathway protocol [facility] Work Phone: Start: 07-21-2021 Incentive spirometry [facility] Work Phone: Start: 07-21-2021 Introduction of urinary catheter [facility] Work Phone: Start: 07-21-2021 Measuring intake and output [facility] Work Phone: Start: 07-21-2021 Neurovascular assessment [facility] Work Phone: Start: 07-21-2021 Patient education [facility] Work Phone: Start: 07-21-2021 Procedure discontinued [facility] Work Phone: Start: 07-21-2021 Provision of activity privileges [facility] Work Phone: Start: 07-21-2021 Referral to occupational therapist [facility] Work Phone: Start: 07-21-2021 Referral to service [facility] Work Phone: Start: 07-21-2021 Vital signs measurements [facility] Work Phone: Start: 07-21-2021 Wound care [facility] Work Phone: Start: 07-21-2021 [facility] Work Phone: Start: 06-05-2021 ADVANCE DIRECTIVE DISCUSSION ADVANCE DIRECTIVE DISCUSSION [facility] Start: 06-05-2021 DEPRESSION ASSESSMENT DEPRESSION ASSESSMENT [facility] Start: 10-13-2019 Screening for malignant neoplasm of colon [facility] Start: 01-13-2017 End: 01-13-[address] [facility] [employer] Work Phone: Start: 01-09-2017 End: 01-09-[address] [facility] [employer] Work Phone: Start: 09-26-2014 FECAL OCCULT BLOOD FECAL OCCULT BLOOD [facility] Start: 09-26-2014 Screening for malignant neoplasm of colon Fecal Occult Blood [facility] Start: 2005 RSV Vaccine (1 - 1-dose 60+ series) RSV Vaccine (1 - 1-dose 60+ series) [facility] Start: 1990 COLOGUARD (FIT-DNA) COLOGUARD (FIT-DNA) [facility] Start: [address] COLONOGRAPHY [facility] Start: 1990 Screening for malignant neoplasm of colon [facility] Start: 1990 SIGMOIDOSCOPY SIGMOIDOSCOPY [facility] Start: 1963 BP CONTROLLED (<130/80) BP CONTROLLED (<130/80) [facility] Start: 1963 Depression Screening Depression Screening [facility] Colonoscopy [facility] Work Phone: ECG COMPLETE ECG COMPLETE ECG 09/12/2024 3:[address] [facility] Gastrin [Mass/volume ] in Serum or Plasma [facility] Gastrin [Mass/volume ] in Serum or Plasma [facility] Balaton/lambda light chain ratio [facility] Work Phone: Lambda light chains. free [Mass/volume] in Serum or Plasma [facility] Work Phone: End: 09-10-2023 Mri brain brain stem w/o contrast material MRI BRAIN WO IVCON Radiology Routine Transient cerebral ischemia, unspecified type 1 Occurrences starting 08/11/2022 until 09/10/2023 [facility] Work Phone: Comment on above: 1 Occurrences starting 08/11/2022 until 09/10/2023 OUTSIDE VENDOR CARDI AC OUTPATIENT EXTENDED RHYTHM RECORDING (WITHOUT TELEMETRY) OUTSIDE VENDOR CARDIAC OUTPATIENT EXTENDED RHYTHM RECORDING (WITHOUT TELEMETRY) Holter Routine Near syncope Bradycardia Ordered: 09/12/2024 [facility] Comment on above: Ordered: 09/12/2024 Patient Education [facility] Work Phone: Patient referral [facility] Work Phone: Radionuclide gastric emptying study [facility] T4 free measurement [facility] Work Phone: Thiamine measurement [facility] Work Phone: Thyroid stimulating hormone measurement [facility] Work Phone: Triiodothyronine, fr ee measurement [facility] Work Phone: Urine kappa light ch ain measurement [facility] Work Phone: US Carotid arteries [facility] Work Phone: US Carotid arteries [facility] End: 10-13-2022 US KIDNEY/BLADDER US KIDNEY/BLADDER Radiology JAIR Renal mass, left 1 Occurrences starting 09/13/2021 until 10/13/2022 [facility] Work Phone: Comment on above: 1 Occurrences starting 09/13/2021 until 10/13/2022 Vitamin D, 1,25-dihy droxy measurement [facility] Work Phone: [facility] Immunizations Immunization Date Immunization Notes Care Provider Fa [facility] 10-15-2024 pneumococcal conjuga te (PCV21) vaccine, 21 valent (CAPVAXIVE) Brandon Cantor MD Work Phone: [facility] 05-17-2024 COVID-19 vaccine, ag e 12+ yr ([employer] COMIRNAT) Brandon Cantor MD Work Phone: [facility] 03-05-2024 influenza, high dose seasonal, preservative-free Debra Castrejon Work Phone: [facility] 03-05-2024 influenza virus vacc ine, unspecified formulation Debra Castrejon Work Phone: [facility] 01-10-2024 tetanus toxoid, redu kristla diphtheria toxoid, and acellular pertussis vaccine, adsorbed Dav De Santiago MA [facility] 11-09-2023 COVID-19 vaccine, ag e 12+ yr, 2022- season ([employer]) Brandon Cantor MD Work Phone: [facility] 03-04-2023 influenza (HD-IIV4) vaccine, age 65+ yr, high dose, quadrivalent, PF (FLUZONE HIGH-DOSE) Brandon Cantor MD Work Phone: [facility] 03-04-2023 influenza, high dose seasonal, preservative-free Ccf Provider [facility] Work Phone: 03-04-2023 influenza virus vacc ine, unspecified formulation Debra Jewellhernando Work Phone: [facility] 02-07-2023 respiratory syncytia l virus (RSV) vaccine, adjuvanted (AREXVY) Ccf Provider [facility] 04-01-2022 COVID-19 booster vaccine, age 12+ yr, bivalent ([employer]) 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 Brandon Cantor Work Phone: [facility] 03-11-2021 zoster vaccine recombinant Brandon Cantor MD Work Phone: [facility] Work Phone: 02-15-[address] Brandon Cantor Work Phone: [facility] 02-15-2021 influenza, high-dose , quadrivalent vaccine (FLUZONE HIGH DOSE QUADRIVALENT) Brandon Cantor MD Work Phone: [facility] Work Phone: 08-03-2020 Covid (Pfizer) Dr. Brandon Cantor Work Phone: [facility] 08-03-2020 COVID-19 vaccine (UNSPECIFIED) Brandon Cantor MD Work Phone: [facility] Work Phone: 07-20-2020 Covid (Pfizer) Dr. Brandon Cantor Work Phone: [facility] 07-14-2020 COVID-19 original vaccine, age 12+ yr, monovalent (PFIZER-BIONTECH - PURPLE TOP) Ccf Provider [facility] Work Phone: 07-14-2020 COVID-19 vaccine (UNSPECIFIED) Brandon Cantor MD Work Phone: [facility] Work Phone: 02-14-2020 influenza (HD-IIV4) vaccine, age 65+ yr, high dose, quadrivalent, PF (FLUZONE HIGH-DOSE) Ccf Provider [facility] Work Phone: 02-14-2020 influenza, high dose seasonal, preservative-free Brandon Cantor MD Work Phone: [facility] Work Phone: 03-01-2019 influenza, high dose seasonal, preservative-free Brandon Cantor MD Work Phone: [facility] Work Phone: 03-01-2018 influenza, high dose seasonal, preservative-free Brandon Cantor MD Work Phone: [facility] Work Phone: 03-16-2017 influenza, high dose seasonal, preservative-free Brandon Cantor MD Work Phone: [facility] 03-23-2016 influenza, seasonal, injectable Brandon Cantor MD Work Phone: [facility] 03-17-2016 influenza, seasonal, injectable, preservative free Brandon Cantor MD Work Phone: [facility] Work Phone: 03-19-2015 influenza, high dose seasonal, preservative-free Brandon Cantor MD Work Phone: [facility] Work Phone: 10-09-2014 pneumococcal conjuga te vaccine, 13 valent Brandon Cantor MD Work Phone: [facility] 04-10-2014 tetanus and diphther ia toxoids, adsorbed, preservative free, for adult use (5 Lf of tetanus toxoid and 2 Lf of diphtheria toxoid) Brandon Cantor MD Work Phone: [facility] 03-20-2014 influenza, seasonal, injectable Brandon Cantor MD Work Phone: [facility] 02-23-2012 influenza virus vacc ine, whole virus Brandon Cantor MD Work Phone: [facility] Work Phone: 09-29-2011 zoster vaccine, live Brandon Cantor MD Work Phone: [facility] Work Phone: 03-05-2011 influenza virus vacc ine, unspecified formulation Brandon Cantor MD Work Phone: [facility] Work Phone: 07-01-2010 pneumococcal polysaccharide vaccine, 23 valent Brandon Cantor MD Work Phone: [facility] Work Phone: 03-04-2010 influenza virus vacc ine, unspecified formulation Brandon Cantor MD Work Phone: [facility] Work Phone: 05-19-2009 novel influenza-H1N1 -09, preservative-free, injectable Brandon Cantor MD Work Phone: [facility] Work Phone: 03-27-2009 influenza virus vacc ine, unspecified formulation Brandon Cantor MD Work Phone: [facility] Work Phone: 01-02-2004 tetanus and diphther ia toxoids, not adsorbed, for adult use Brandon Cantor MD Work Phone: [facility] Work Phone: Payers Date Payer Category Payer Self-pay [id number] 2017 Medicare (Managed Care) [employer] HMO [id number] 2017 Unknown [employer] STEPHEN CR[employer] S AND BLUE SHIELD ANTHLILI MEDIBLUE O [id number] 2017-Present [phone] [address] [place] [address] [facility] [id number] 2017 Unknown [id number] 2014 Unknown [id number] 2010 Medicare [id number] Unknown [id number] Unknown [id number] Unknown [id number] Unknown [id number] Unknown [id number] Unknown [id number] Unknown [id number] Unknown [id number] Unknown [id number] Social History Date Type Detail Facility Start: 04-23-2020 End: 04-15-2024 Tobacco smoking status NHIS Ex-smoker [facility] Start: 1964 End: 07-05-1998 History of tobacco use Current smoker [facility] Start: 1964 End: 07-05-1998 History of tobacco use Cigarette Smoker [facility] Start: 08-26-2021 End: 12-20-2024 Alcohol intake Current non-drinker of alcohol (finding) [facility] Start: 04-23-2020 End: 05-04-2022 History SDOH Alcohol Frequency 1 [facility] Start: 01-01-2020 End: 05-04-2022 History SDOH Social Connections Phone 2 [facility] Start: 07-02-2019 End: 05-04-2022 History SDOH Social Connections Living 3 [facility] Start: 07-02-2019 End: 10-02-2019 History SDOH Physical Activity DPW 5 [facility] Start: 10-02-2019 History SDOH Physical Activity MPS 6 [facility] Start: 07-02-2019 Education 17 [facility] Start: 1945 Sex Assigned At Male [facility] Work Phone: Start: 08-16-2021 End: 04-04-2022 Exposure to SARS-CoV-2 (event) Not sure [facility] Start: 10-15-2021 End: 09-12-2023 Tobacco smoking status ILIS Unknown if ever smoked [facility] Start: 01-23-2018 None [facility] Start: 01-23-2018 Spouse/ Significant Other [facility] Start: 10-09-2018 Non-smoker [facility] Work Phone: Start: 10-18-2021 Non-smoker;Cigarettes [facility] Start: 04-23-2020 End: 10-21-2022 Cigarettes smoked current (pack per day) - Reported 2 [facility] Start: 04-23-2020 End: 04-15-2024 Tobacco use and exposure Smokeless tobacco non-user [facility] Work Phone: Start: 05-04-2022 History SDOH Alcohol Std Drinks 0 [facility] Start: 05-04-2022 History SDOH Social Connections Phone 98 [facility] Start: 05-04-2022 End: 10-21-2022 Social connection and isolation panel [facility] In a typical week, h ow many times do you talk on the telephone with family, friends, or neighbors? Patient refused [facility] Do you belong to any clubs or organizations such as uatsdin groups, unions, fraternal or athletic groups, or school groups? No [facility] Are you now , , , , never or living with a partner? [facility] How often to you hav e a drink containing alcohol? Never [facility] Do you feel stress - tense, restless, nervous, or anxious, or unable to sleep at night because your mind is troubled all the time - these days [OSQ] To some extent [facility] (I/We) worried wheth er (my/our) food would run out before (I/we) got money to buy more. DK or Refused [facility] Start: 09-07-2018 Gender identity Identifies as male gender (finding) [facility] Work Phone: Start: 09-07-2018 Sexual orientation Heterosexual (finding) [facility] Work Phone: Do you feel stress - tense, restless, nervous, or anxious, or unable to sleep at night because your mind is troubled all the time - these days [OSQ] Not at all [facility] (I/We) worried wheth er (my/our) food would run out before (I/we) got money to buy more. Never true [facility] Start: 09-04-2024 End: 09-10-2024 Sex Male (finding) [facility] Medical Equipment Procedure Code Equipment Code Equipment Origin al Text Equipment Identifier Dates Total cholecystectomy with exploration of common bile duct CLIP,LALITOKANE SAUCEDA FDA Start: 08-18-2023 Total cholecystectomy with exploration of common bile duct CLIP,LALITOKANE SAUCEDA FDA Start: 08-18-2023 Total cholecystectomy with exploration of common bile duct CLIP,LALITOKANE SAUCEDA FDA Start: 08-18-2023 Total cholecystectomy with exploration of common bile duct CLIP,LALITOKANE SAUCEDA FDA Start: 08-18-2023 Total cholecystectomy with exploration of common bile duct CLIP,LORNAJOSÉ SAUCEDA FDA Start: 08-18-2023 Total cholecystectomy with exploration of common bile duct CLIP,LORNAJOSÉ SAUCEDA FDA Start: 08-18-2023 Total cholecystectomy with exploration of common bile duct CLIP,LORNAJOSÉ SAUCEDA FDA Start: 08-18-2023 Total cholecystectomy with exploration of common bile duct CLIP,LALITOKANE SAUCEDA FDA Start: 08-18-2023 Robot-assisted partial nephrectomy CLIP,DEANNA SAUCEDA FDA Start: 02-16-2022 Robot-assisted partial nephrectomy Plant polysaccharide haemostatic agent, bioabsorbable [id number] FDA Start: 02-16-2022 Robot-assisted partial nephrectomy Ligation clip, synthetic polymer, non-bioabsorbable [id number] FDA Start: 02-16-2022 Robot-assisted partial nephrectomy CLIP,DEANNA SAUCEDA FDA Start: 02-16-2022 Robot-assisted partial nephrectomy CLIP,DEANNA SAUCEDA FDA Start: 02-16-2022 Robot-assisted partial nephrectomy CLIP,DEANNA SAUCEDA FDA Start: 02-16-2022 Robot-assisted partial nephrectomy CLIPDEANNA LG FDA Start: 02-16-2022 Robot-assisted partial nephrectomy CLIP,LAPRA-TY FDA Start: 02-16-2022 Robot-assisted partial nephrectomy CLIP,LAPRA-TY FDA Start: 02-16-2022 Robot-assisted partial nephrectomy DRESSING,SURGICEL 4x8 FDA Start: 02-16-2022 Robot-assisted partial nephrectomy SEALANT,FLOSEAL HEMOSTATIC 5ML FDA Start: 02-16-2022 Robot-assisted partial nephrectomy CLIP,HEMOLOCK LG KOMAL FDA Start: 02-16-2022 Robot-assisted partial nephrectomy CLIP,HEMOLOCK LG EDDACK FDA Start: 02-16-2022 Robot-assisted partial nephrectomy CLIP,HEMOLOCK LG EDDACK FDA Start: 02-16-2022 Robot-assisted partial nephrectomy CLIP,HEMOLOCK LG KOMAL FDA Start: 02-16-2022 Robot-assisted partial nephrectomy CLIP,HEMOLOCK LG EDDACK FDA Start: 02-16-2022 Robot-assisted partial nephrectomy CLIP,LAPRA-TY FDA Start: 02-16-2022 Robot-assisted partial nephrectomy CLIP,LAPRA-TY FDA Start: 02-16-2022 Robot-assisted partial nephrectomy DRESSING,SURGICEL 4x8 FDA Start: 02-16-2022 Robot-assisted partial nephrectomy SEALANT,FLOSEAL HEMOSTATIC 5ML FDA Start: 02-16-2022 Robot-assisted partial nephrectomy CLIP,HEMOLOJOSÉ SAUCEDA FDA Start: 02-16-2022 Robot-assisted partial nephrectomy CLIP,HEMOLOCK LG KOMAL FDA Start: 02-16-2022 Robot-assisted partial nephrectomy CLIP,HEMOLOCK ALY SAUCEDA FDA Start: 02-16-2022 Robot-assisted partial nephrectomy CLIP,HEMOLOJOSÉ SAUCEDA FDA Start: 02-16-2022 Robot-assisted partial nephrectomy CLIP,HEMOLOCK LG KOMAL FDA Start: 02-16-2022 Robot-assisted partial nephrectomy CLIP,LAPRA-TY FDA Start: 02-16-2022 Robot-assisted partial nephrectomy CLIP,LAPRA-TY FDA Start: 02-16-2022 Robot-assisted partial nephrectomy DRESSING,SURGICEL 4x8 FDA Start: 02-16-2022 Robot-assisted partial nephrectomy SEALANT,FLOSEAL HEMOSTATIC 5ML FDA Start: 02-16-2022 Robot-assisted partial nephrectomy CLIP,HEMOLOCK ALY SAUCEDA FDA Start: 02-16-2022 Robot-assisted partial nephrectomy CLIP,HEMOLOCK LG KOMAL FDA Start: 02-16-2022 Robot-assisted partial nephrectomy CLIP,HEMOLOCK LG KOMAL FDA Start: 02-16-2022 Robot-assisted partial nephrectomy CLIP,HEMOLOCK ALY SAUCEDA FDA Start: 02-16-2022 Robot-assisted partial nephrectomy CLIP,HEMOLOCK LG EDDAJOSÉ FDA Start: 02-16-2022 Robot-assisted partial nephrectomy CLIP,LAPRA-TY FDA Start: 02-16-2022 Robot-assisted partial nephrectomy CLIP,LAPRA-TY FDA Start: 02-16-2022 Robot-assisted partial nephrectomy DRESSING,SURGICEL 4x8 FDA Start: 02-16-2022 Robot-assisted partial nephrectomy SEALANT,FLOSEAL HEMOSTATIC 5ML FDA Start: 02-16-2022 Robot-assisted partial nephrectomy CLIP,HEMOLOCK LG KOMAL FDA Start: 02-16-2022 Robot-assisted partial nephrectomy CLIP,HEMOLOCK LG EDDACK FDA Start: 02-16-2022 Robot-assisted partial nephrectomy CLIP,HEMOLOCK LG KOMAL FDA Start: 02-16-2022 Robot-assisted partial nephrectomy CLIP,HEMOLOCK LG KOMAL FDA Start: 02-16-2022 Robot-assisted partial nephrectomy CLIP,HEMOLOCK LG KOMAL FDA Start: 02-16-2022 Robot-assisted partial nephrectomy CLIP,LAPRA-TY FDA Start: 02-16-2022 Robot-assisted partial nephrectomy CLIP,LAPRA-TY FDA Start: 02-16-2022 Robot-assisted partial nephrectomy DRESSING,SURGICEL 4x8 FDA Start: 02-16-2022 Robot-assisted partial nephrectomy SEALANT,FLOSEAL HEMOSTATIC 5ML FDA Start: 02-16-2022 Robot-assisted partial nephrectomy CLIP,HEMOLOCK LG KOMAL FDA Start: 02-16-2022 Robot-assisted partial nephrectomy CLIP,HEMOLOCK LG KOMAL FDA Start: 02-16-2022 Robot-assisted partial nephrectomy CLIP,HEMOLOCK LG KOMAL FDA Start: 02-16-2022 Robot-assisted partial nephrectomy CLIP,HEMOLOCK LG KOMAL FDA Start: 02-16-2022 Robot-assisted partial nephrectomy CLIP,HEMOLOCK LG WECK FDA Start: 02-16-2022 Robot-assisted partial nephrectomy CLIP,LAPRA-TY FDA Start: 02-16-2022 Robot-assisted partial nephrectomy CLIP,LAPRA-TY FDA Start: 02-16-2022 Robot-assisted partial nephrectomy DRESSING,SURGICEL 4x8 FDA Start: 02-16-2022 Robot-assisted partial nephrectomy SEALANT,FLOSEAL HEMOSTATIC 5ML FDA Start: 02-16-2022 Robot-assisted partial nephrectomy CLIP,HEMOLOCK LG WECK FDA Start: 02-16-2022 Robot-assisted partial nephrectomy CLIP,HEMOLOJOSÉ LG KOMAL FDA Start: 02-16-2022 Robot-assisted partial nephrectomy CLIP,HEMOLOJOSÉ LG KOMAL FDA Start: 02-16-2022 Robot-assisted partial nephrectomy CLIP,HEMOLOJOSÉ LG KOMAL FDA Start: 02-16-2022 Robot-assisted partial nephrectomy CLIP,HEMKANE LG KOMAL FDA Start: 02-16-2022 Robot-assisted partial nephrectomy CLIP,LAPRA-TY FDA Start: 02-16-2022 Robot-assisted partial nephrectomy CLIP,LAPRA-TY FDA Start: 02-16-2022 Robot-assisted partial nephrectomy DRESSING,SURGICEL 4x8 FDA Start: 02-16-2022 Robot-assisted partial nephrectomy SEALANT,FLOSEAL HEMOSTATIC 5ML FDA Start: 02-16-2022 Robot-assisted partial nephrectomy CLIP,HEMKANE SAUCEDA FDA Start: 02-16-2022 Robot-assisted partial nephrectomy CLIP,HEMKANE SAUCEDA FDA Start: 02-16-2022 Robot-assisted partial nephrectomy CLIP,HEMKANE SAUCEDA FDA Start: 02-16-2022 Robot-assisted partial nephrectomy CLIP,HEMKANE SAUCEDA FDA Start: 02-16-2022 Robot-assisted partial nephrectomy CLIP,HEMKANE SAUCEDA FDA Start: 02-16-2022 Robot-assisted partial nephrectomy CLIP,LAPRA-TY FDA Start: 02-16-2022 Robot-assisted partial nephrectomy CLIP,LAPRA-TY FDA Start: 02-16-2022 Robot-assisted partial nephrectomy DRESSING,SURGICEL 4x8 FDA Start: 02-16-2022 Robot-assisted partial nephrectomy SEALANT,FLOSEAL HEMOSTATIC 5ML FDA Start: 02-16-2022 Robot-assisted partial nephrectomy CLIP,HEMOLOJOSÉ SAUCEDA FDA Start: 02-16-2022 Robot-assisted partial nephrectomy CLIP,HEMOLOJOSÉ SAUCEDA FDA Start: 02-16-2022 Robot-assisted partial nephrectomy CLIP,HEMOLOJOSÉ SAUCEDA FDA Start: 02-16-2022 Robot-assisted partial nephrectomy CLIP,HEMOLOJOSÉ SAUCEDA FDA Start: 02-16-2022 Robot-assisted partial nephrectomy CLIP,HEMOLOJOSÉ SAUCEDA FDA Start: 02-16-2022 Robot-assisted partial nephrectomy CLIP,LAPRA-TY FDA Start: 02-16-2022 Robot-assisted partial nephrectomy CLIP,LAPRA-TY FDA Start: 02-16-2022 Robot-assisted partial nephrectomy DRESSING,SURGICEL 4x8 FDA Start: 02-16-2022 Robot-assisted partial nephrectomy SEALANT,FLOSEAL HEMOSTATIC 5ML FDA Start: 02-16-2022 Robot-assisted partial nephrectomy CLIP,HEMKANE SAUCEDA FDA Start: 02-16-2022 Robot-assisted partial nephrectomy CLIP,HEMOLOCK LG KOMAL FDA Start: 02-16-2022 Robot-assisted partial nephrectomy CLIP,HEMOLOCK LG KOMAL FDA Start: 02-16-2022 Robot-assisted partial nephrectomy CLIP,HEMOLOJOSÉ SAUCEDA FDA Start: 02-16-2022 Robot-assisted partial nephrectomy CLIP,HEMOLOJOSÉ SAUCEDA FDA Start: 02-16-2022 Robot-assisted partial nephrectomy CLIP,LAPRA-TY FDA Start: 02-16-2022 Robot-assisted partial nephrectomy CLIP,LAPRA-TY FDA Start: 02-16-2022 Robot-assisted partial nephrectomy DRESSING,SURGICEL 4x8 FDA Start: 02-16-2022 Robot-assisted partial nephrectomy SEALANT,FLOSEAL HEMOSTATIC 5ML FDA Start: 02-16-2022 Robot-assisted partial nephrectomy CLIP,HEMOLOJOSÉ SAUCEDA FDA Start: 02-16-2022 Robot-assisted partial nephrectomy CLIP,HEMOLOCK ALY SAUCEDA FDA Start: 02-16-2022 Robot-assisted partial nephrectomy CLIP,HEMOLOJOSÉ SAUCEDA FDA Start: 02-16-2022 Robot-assisted partial nephrectomy CLIP,HEMOLOJOSÉ SAUCEDA FDA Start: 02-16-2022 Robot-assisted partial nephrectomy CLIP,HEMOLOCK LG KOMAL FDA Start: 02-16-2022 Robot-assisted partial nephrectomy CLIP,LAPRA-TY FDA Start: 02-16-2022 Robot-assisted partial nephrectomy CLIP,LAPRA-TY FDA Start: 02-16-2022 Robot-assisted partial nephrectomy DRESSING,SURGICEL 4x8 FDA Start: 02-16-2022 Robot-assisted partial nephrectomy SEALANT,FLOSEAL HEMOSTATIC 5ML FDA Start: 02-16-2022 Robot-assisted partial nephrectomy CLIP,HEMOLOJOSÉ SAUCEDA FDA Start: 02-16-2022 Robot-assisted partial nephrectomy CLIP,HEMOLOCK LG KOMAL FDA Start: 02-16-2022 Robot-assisted partial nephrectomy CLIP,HEMOLOCK LG WECK FDA Start: 02-16-2022 Robot-assisted partial nephrectomy CLIP,HEMOLOCK LG WECK FDA Start: 02-16-2022 Robot-assisted partial nephrectomy CLIP,HEMOLOCK LG WECK FDA Start: 02-16-2022 Robot-assisted partial nephrectomy CLIP,LAPRA-TY FDA Start: 02-16-2022 Robot-assisted partial nephrectomy CLIP,LAPRA-TY FDA Start: 02-16-2022 Robot-assisted partial nephrectomy DRESSING,SURGICEL 4x8 FDA Start: 02-16-2022 Robot-assisted partial nephrectomy SEALANT,FLOSEAL HEMOSTATIC 5ML FDA Start: 02-16-2022 Robot-assisted partial nephrectomy CLIP,HEMOLOCK LG KOMAL FDA Start: 02-16-2022 Robot-assisted partial nephrectomy CLIP,HEMOLOCK LG EDDACK FDA Start: 02-16-2022 Robot-assisted partial nephrectomy CLIP,HEMOLOCK LG KOMAL FDA Start: 02-16-2022 Robot-assisted partial nephrectomy CLIP,HEMOLOCK LG KOMAL FDA Start: 02-16-2022 Robot-assisted partial nephrectomy CLIP,HEMOLOCK LG WECK FDA Start: 02-16-2022 Robot-assisted partial nephrectomy CLIP,LAPRA-TY FDA Start: 02-16-2022 Robot-assisted partial nephrectomy CLIP,LAPRA-TY FDA Start: 02-16-2022 Robot-assisted partial nephrectomy DRESSING,SURGICEL 4x8 FDA Start: 02-16-2022 Robot-assisted partial nephrectomy SEALANT,FLOSEAL HEMOSTATIC 5ML FDA Start: 02-16-2022 Robot-assisted partial nephrectomy CLIP,HEMOLOCK LG KOMAL FDA Start: 02-16-2022 Robot-assisted partial nephrectomy CLIP,HEMOLOCK LG EDDACK FDA Start: 02-16-2022 Robot-assisted partial nephrectomy CLIP,HEMOLOCK LG KOMAL FDA Start: 02-16-2022 Robot-assisted partial nephrectomy CLIP,HEMOLOCK LG EDDACK FDA Start: 02-16-2022 Robot-assisted partial nephrectomy CLIP,HEMOLOCK LG WECK FDA Start: 02-16-2022 Robot-assisted partial nephrectomy CLIP,LAPRA-TY FDA Start: 02-16-2022 Robot-assisted partial nephrectomy CLIP,LAPRA-TY FDA Start: 02-16-2022 Robot-assisted partial nephrectomy DRESSING,SURGICEL 4x8 FDA Start: 02-16-2022 Robot-assisted partial nephrectomy SEALANT,FLOSEAL HEMOSTATIC 5ML FDA Start: 02-16-2022 Robot-assisted partial nephrectomy CLIP,HEMOLOCK LG EDDACK FDA Start: 02-16-2022 Robot-assisted partial nephrectomy CLIP,HEMOLOCK LG EDDACK FDA Start: 02-16-2022 Robot-assisted partial nephrectomy CLIP,HEMOLOCK LG EDDACK FDA Start: 02-16-2022 Robot-assisted partial nephrectomy CLIP,HEMOLOCK LG EDDACK FDA Start: 02-16-2022 Robot-assisted partial nephrectomy CLIP,HEMOLOCK LG EDDACK FDA Start: 02-16-2022 Robot-assisted partial nephrectomy CLIP,LAPRA-TY FDA Start: 02-16-2022 Robot-assisted partial nephrectomy CLIP,LAPRA-TY FDA Start: 02-16-2022 Robot-assisted partial nephrectomy DRESSING,SURGICEL 4x8 FDA Start: 02-16-2022 Robot-assisted partial nephrectomy SEALANT,FLOSEAL HEMOSTATIC 5ML FDA Start: 02-16-2022 Robot-assisted partial nephrectomy CLIP,HEMOLOCK LG KOMAL FDA Start: 02-16-2022 Robot-assisted partial nephrectomy CLIP,HEMOLOJOSÉ SAUCEDA FDA Start: 02-16-2022 Robot-assisted partial nephrectomy CLIP,HEMOLOCK ALY SAUCEDA FDA Start: 02-16-2022 Robot-assisted partial nephrectomy CLIP,HEMOLOCK ALY SAUCEDA FDA Start: 02-16-2022 Robot-assisted partial nephrectomy CLIP,HEMOLOCK LG EDDACK FDA Start: 02-16-2022 Robot-assisted partial nephrectomy CLIP,LAPRA-TY FDA Start: 02-16-2022 Robot-assisted partial nephrectomy CLIP,LAPRA-TY FDA Start: 02-16-2022 Robot-assisted partial nephrectomy DRESSING,SURGICEL 4x8 FDA Start: 02-16-2022 Robot-assisted partial nephrectomy SEALANT,FLOSEAL HEMOSTATIC 5ML FDA Start: 02-16-2022 Robot-assisted partial nephrectomy CLIP,HEMOLOJOSÉ SAUCEDA FDA Start: 02-16-2022 Robot-assisted partial nephrectomy CLIP,HEMOLOCK LG KOMAL FDA Start: 02-16-2022 Robot-assisted partial nephrectomy CLIP,HEMOLOCK LG KOMAL FDA Start: 02-16-2022 Robot-assisted partial nephrectomy CLIP,HEMOLOCK LG KOMAL FDA Start: 02-16-2022 Robot-assisted partial nephrectomy CLIP,HEMOLOCK LG DEDACK FDA Start: 02-16-2022 Robot-assisted partial nephrectomy CLIP,LAPRA-TY FDA Start: 02-16-2022 Robot-assisted partial nephrectomy CLIP,LAPRA-TY FDA Start: 02-16-2022 Robot-assisted partial nephrectomy DRESSING,SURGICEL 4x8 FDA Start: 02-16-2022 Robot-assisted partial nephrectomy SEALANT,FLOSEAL HEMOSTATIC 5ML FDA Start: 02-16-2022 Robot-assisted partial nephrectomy CLIP,HEMKANE SAUCEDA FDA Start: 02-16-2022 Robot-assisted partial nephrectomy CLIP,HEMOLOJOSÉ SAUCEDA FDA Start: 02-16-2022 Robot-assisted partial nephrectomy CLIP,HEMKANE SAUCEDA FDA Start: 02-16-2022 Robot-assisted partial nephrectomy CLIP,HEMKANE SAUCEDA FDA Start: 02-16-2022 Robot-assisted partial nephrectomy CLIP,HEMOLOJOSÉ SAUCEDA FDA Start: 02-16-2022 Robot-assisted partial nephrectomy CLIP,LAPRA-TY FDA Start: 02-16-2022 Robot-assisted partial nephrectomy CLIP,LAPRA-TY FDA Start: 02-16-2022 Robot-assisted partial nephrectomy DRESSING,SURGICEL 4x8 FDA Start: 02-16-2022 Robot-assisted partial nephrectomy SEALANT,FLOSEAL HEMOSTATIC 5ML FDA Start: 02-16-2022 Robot-assisted partial nephrectomy CLIP,HEMKANE SAUCEDA FDA Start: 02-16-2022 Robot-assisted partial nephrectomy CLIP,HEMOLOCK ALY SAUCEDA FDA Start: 02-16-2022 Robot-assisted partial nephrectomy CLIP,HEMOLOCK LG KOMAL FDA Start: 02-16-2022 Robot-assisted partial nephrectomy CLIP,HEMOLOJOSÉ SAUCEDA FDA Start: 02-16-2022 Robot-assisted partial nephrectomy CLIP,HEMOLOJOSÉ LG KOMAL FDA Start: 02-16-2022 Robot-assisted partial nephrectomy CLIP,LAPRA-TY FDA Start: 02-16-2022 Robot-assisted partial nephrectomy CLIP,LAPRA-TY FDA Start: 02-16-2022 Robot-assisted partial nephrectomy DRESSING,SURGICEL 4x8 FDA Start: 02-16-2022 Robot-assisted partial nephrectomy SEALANT,FLOSEAL HEMOSTATIC 5ML FDA Start: 02-16-2022 Robot-assisted partial nephrectomy CLIP,HEMOLOCK ALY SAUCEDA FDA Start: 02-16-2022 Robot-assisted partial nephrectomy CLIP,HEMOLOCK LG KOMAL FDA Start: 02-16-2022 Robot-assisted partial nephrectomy CLIP,HEMOLOCK ALY SAUCEDA FDA Start: 02-16-2022 Robot-assisted partial nephrectomy CLIP,HEMOLOCK LG KOMAL FDA Start: 02-16-2022 Robot-assisted partial nephrectomy CLIP,HEMOLOCK LG KOMAL FDA Start: 02-16-2022 Robot-assisted partial nephrectomy CLIP,LAPRA-TY FDA Start: 02-16-2022 Robot-assisted partial nephrectomy CLIP,LAPRA-TY FDA Start: 02-16-2022 Robot-assisted partial nephrectomy DRESSING,SURGICEL 4x8 FDA Start: 02-16-2022 Robot-assisted partial nephrectomy SEALANT,FLOSEAL HEMOSTATIC 5ML FDA Start: 02-16-2022 Colonoscopy Ligation clip, metallic ()[id number] FDA Start: 04-26-2022 ACCOLADE II ANGL E HIP STEM 127 FDA Start: 01-12-2018 BIOLOX DELTA CER AMIC FEM HEAD FDA Start: 01-12-2018 MDM CEMENTLESS LINER FDA Star t: 01-12-2018 RESTORE X3 INSER T FOR MDM.ADM FDA Start: 01-12-2018 TRITANIUM CODIE CLUSTER SHELL FDA Start: 01-12-2018 CEMENT,BONE IONA H 1/2 BATCH FDA Start: 07-21-2021 ([id number]) Coated knee femu r prosthesis ()[id number] FDA Start: 07-21-2021 ([id number]) Coated knee tibi a prosthesis ()[id number] FDA Start: 07-21-2021 ([id number]) Polyethylene pat jessica prosthesis ()[id number] FDA Start: 07-21-2021 ([id number]) Tibial insert [id number] FDA Start: 07-21-2021 ACCOLADE II ANGL E HIP STEM 127 FDA Start: 01-12-2018 BIOLOX DELTA CER AMIC FEM HEAD FDA Start: 01-12-2018 MDM CEMENTLESS LINER FDA Star t: 01-12-2018 RESTORE X3 INSER T FOR MDM.ADM FDA Start: 01-12-2018 TRITANIUM CODIE CLUSTER SHELL FDA Start: 01-12-2018 CEMENT,BONE IONA H 1/2 BATCH FDA Start: 07-21-2021 ACCOLADE II ANGL E HIP STEM 127 FDA Start: 01-12-2018 BIOLOX DELTA CER AMIC FEM HEAD FDA Start: 01-12-2018 MDM CEMENTLESS LINER FDA Star t: 01-12-2018 RESTORE X3 INSER T FOR MDM.ADM FDA Start: 01-12-2018 TRITANIUM CODIE CLUSTER SHELL FDA Start: 01-12-2018 CEMENT,BONE IONA H 1/2 BATCH FDA Start: 07-21-2021 ACCOLADE II ANGL E HIP STEM 127 FDA Start: 01-12-2018 BIOLOX DELTA CER AMIC FEM HEAD FDA Start: 01-12-2018 MDM CEMENTLESS LINER FDA Star t: 01-12-2018 RESTORE X3 INSER T FOR MDM.ADM FDA Start: 01-12-2018 TRITANIUM CODIE CLUSTER SHELL FDA Start: 01-12-2018 CEMENT,BONE IONA H 1/2 BATCH FDA Start: 07-21-2021 ACCOLADE II ANGL E HIP STEM 127 FDA Start: 01-12-2018 BIOLOX DELTA CER AMIC FEM HEAD FDA Start: 01-12-2018 MDM CEMENTLESS LINER FDA Star t: 01-12-2018 RESTORE X3 INSER T FOR MDM.ADM FDA Start: 01-12-2018 TRITANIUM CODIE CLUSTER SHELL FDA Start: 01-12-2018 CEMENT,BONE IONA H 1/2 BATCH FDA Start: 07-21-2021 ACCOLADE II ANGL E HIP STEM 127 FDA Start: 01-12-2018 BIOLOX DELTA CER AMIC FEM HEAD FDA Start: 01-12-2018 MDM CEMENTLESS LINER FDA Star t: 01-12-2018 RESTORE X3 INSER T FOR MDM.ADM FDA Start: 01-12-2018 TRITANIUM CODIE CLUSTER SHELL FDA Start: 01-12-2018 CEMENT,BONE IONA H 1/2 BATCH FDA Start: 07-21-2021 ACCOLADE II ANGL E HIP STEM 127 FDA Start: 01-12-2018 BIOLOX DELTA CER AMIC FEM HEAD FDA Start: 01-12-2018 MDM CEMENTLESS LINER FDA Star t: 01-12-2018 RESTORE X3 INSER T FOR MDM.ADM FDA Start: 01-12-2018 TRITANIUM CODIE CLUSTER SHELL FDA Start: 01-12-2018 CEMENT,BONE IONA H 1/2 BATCH FDA Start: 07-21-2021 ACCOLADE II ANGL E HIP STEM 127 FDA Start: 01-12-2018 BIOLOX DELTA CER AMIC FEM HEAD FDA Start: 01-12-2018 MDM CEMENTLESS LINER FDA Star t: 01-12-2018 RESTORE X3 INSER T FOR MDM.ADM FDA Start: 01-12-2018 TRITANIUM CODIE CLUSTER SHELL FDA Start: 01-12-2018 CEMENT,BONE IONA H 1/2 BATCH FDA Start: 07-21-2021 ACCOLADE II ANGL E HIP STEM 127 FDA Start: 01-12-2018 BIOLOX DELTA CER AMIC FEM HEAD FDA Start: 01-12-2018 MDM CEMENTLESS LINER FDA Star t: 01-12-2018 RESTORE X3 INSER T FOR MDM.ADM FDA Start: 01-12-2018 TRITANIUM CODIE CLUSTER SHELL FDA Start: 01-12-2018 CEMENT,BONE IONA H 1/2 BATCH FDA Start: 07-21-2021 ACCOLADE II ANGL E HIP STEM 127 FDA Start: 01-12-2018 BIOLOX DELTA CER AMIC FEM HEAD FDA Start: 01-12-2018 MDM CEMENTLESS LINER FDA Star t: 01-12-2018 RESTORE X3 INSER T FOR MDM.ADM FDA Start: 01-12-2018 TRITANIUM CODIE CLUSTER SHELL FDA Start: 01-12-2018 CEMENT,BONE IONA H 1/2 BATCH FDA Start: 07-21-2021 ACCOLADE II ANGL E HIP STEM 127 FDA Start: 01-12-2018 BIOLOX DELTA CER AMIC FEM HEAD FDA Start: 01-12-2018 MDM CEMENTLESS LINER FDA Star t: 01-12-2018 RESTORE X3 INSER T FOR MDM.ADM FDA Start: 01-12-2018 TRITANIUM CODIE CLUSTER SHELL FDA Start: 01-12-2018 CEMENT,BONE IONA H 1/2 BATCH FDA Start: 07-21-2021 ACCOLADE II ANGL E HIP STEM 127 FDA Start: 01-12-2018 BIOLOX DELTA CER AMIC FEM HEAD FDA Start: 01-12-2018 MDM CEMENTLESS LINER FDA Star t: 01-12-2018 RESTORE X3 INSER T FOR MDM.ADM FDA Start: 01-12-2018 TRITANIUM CODIE CLUSTER SHELL FDA Start: 01-12-2018 CEMENT,BONE IONA H 1/2 BATCH FDA Start: 07-21-2021 ACCOLADE II ANGL E HIP STEM 127 FDA Start: 01-12-2018 BIOLOX DELTA CER AMIC FEM HEAD FDA Start: 01-12-2018 MDM CEMENTLESS LINER FDA Star t: 01-12-2018 RESTORE X3 INSER T FOR MDM.ADM FDA Start: 01-12-2018 TRITANIUM CODIE CLUSTER SHELL FDA Start: 01-12-2018 CEMENT,BONE IONA H 1/2 BATCH FDA Start: 07-21-2021 ACCOLADE II ANGL E HIP STEM 127 FDA Start: 01-12-2018 BIOLOX DELTA CER AMIC FEM HEAD FDA Start: 01-12-2018 MDM CEMENTLESS LINER FDA Star t: 01-12-2018 RESTORE X3 INSER T FOR MDM.ADM FDA Start: 01-12-2018 TRITANIUM CODIE CLUSTER SHELL FDA Start: 01-12-2018 CEMENT,BONE IONA H 1/2 BATCH FDA Start: 07-21-2021 ACCOLADE II ANGL E HIP STEM 127 FDA Start: 01-12-2018 BIOLOX DELTA CER AMIC FEM HEAD FDA Start: 01-12-2018 MDM CEMENTLESS LINER FDA Star t: 01-12-2018 RESTORE X3 INSER T FOR MDM.ADM FDA Start: 01-12-2018 TRITANIUM CODIE CLUSTER SHELL FDA Start: 01-12-2018 CEMENT,BONE IONA H 1/2 BATCH FDA Start: 07-21-2021 ACCOLADE II ANGL E HIP STEM 127 FDA Start: 01-12-2018 BIOLOX DELTA CER AMIC FEM HEAD FDA Start: 01-12-2018 MDM CEMENTLESS LINER FDA Star t: 01-12-2018 RESTORE X3 INSER T FOR MDM.ADM FDA Start: 01-12-2018 TRITANIUM CODIE CLUSTER SHELL FDA Start: 01-12-2018 CEMENT,BONE IONA H 1/2 BATCH FDA Start: 07-21-2021 ACCOLADE II ANGL E HIP STEM 127 FDA Start: 01-12-2018 BIOLOX DELTA CER AMIC FEM HEAD FDA Start: 01-12-2018 MDM CEMENTLESS LINER FDA Star t: 01-12-2018 RESTORE X3 INSER T FOR MDM.ADM FDA Start: 01-12-2018 TRITANIUM CODIE CLUSTER SHELL FDA Start: 01-12-2018 CEMENT,BONE IONA H 1/2 BATCH FDA Start: 07-21-2021 ACCOLADE II ANGL E HIP STEM 127 FDA Start: 01-12-2018 BIOLOX DELTA CER AMIC FEM HEAD FDA Start: 01-12-2018 MDM CEMENTLESS LINER FDA Star t: 01-12-2018 RESTORE X3 INSER T FOR MDM.ADM FDA Start: 01-12-2018 TRITANIUM CODIE CLUSTER SHELL FDA Start: 01-12-2018 CEMENT,BONE IONA H 1/2 BATCH FDA Start: 07-21-2021 ACCOLADE II ANGL E HIP STEM 127 FDA Start: 01-12-2018 BIOLOX DELTA CER AMIC FEM HEAD FDA Start: 01-12-2018 MDM CEMENTLESS LINER FDA Star t: 01-12-2018 RESTORE X3 INSER T FOR MDM.ADM FDA Start: 01-12-2018 TRITANIUM CODIE CLUSTER SHELL FDA Start: 01-12-2018 CEMENT,BONE IONA H 1/2 BATCH FDA Start: 07-21-2021 ACCOLADE II ANGL E HIP STEM 127 FDA Start: 01-12-2018 BIOLOX DELTA CER AMIC FEM HEAD FDA Start: 01-12-2018 MDM CEMENTLESS LINER FDA Star t: 01-12-2018 RESTORE X3 INSER T FOR MDM.ADM FDA Start: 01-12-2018 TRITANIUM CODIE CLUSTER SHELL FDA Start: 01-12-2018 CEMENT,BONE IONA H 1/2 BATCH FDA Start: 07-21-2021 ACCOLADE II ANGL E HIP STEM 127 FDA Start: 01-12-2018 BIOLOX DELTA CER AMIC FEM HEAD FDA Start: 01-12-2018 MDM CEMENTLESS LINER FDA Star t: 01-12-2018 RESTORE X3 INSER T FOR MDM.ADM FDA Start: 01-12-2018 TRITANIUM CODIE CLUSTER SHELL FDA Start: 01-12-2018 CEMENT,BONE IONA H 1/2 BATCH FDA Start: 07-21-2021 ACCOLADE II ANGL E HIP STEM 127 FDA Start: 01-12-2018 BIOLOX DELTA CER AMIC FEM HEAD FDA Start: 01-12-2018 MDM CEMENTLESS LINER FDA Star t: 01-12-2018 RESTORE X3 INSER T FOR MDM.ADM FDA Start: 01-12-2018 TRITANIUM CODIE CLUSTER SHELL FDA Start: 01-12-2018 CEMENT,BONE IONA H 1/2 BATCH FDA Start: 07-21-2021 ACCOLADE II ANGL E HIP STEM 127 FDA Start: 01-12-2018 BIOLOX DELTA CER AMIC FEM HEAD FDA Start: 01-12-2018 MDM CEMENTLESS LINER FDA Star t: 01-12-2018 RESTORE X3 INSER T FOR MDM.ADM FDA Start: 01-12-2018 TRITANIUM CODIE CLUSTER SHELL FDA Start: 01-12-2018 CEMENT,BONE IONA H 1/2 BATCH FDA Start: 07-21-2021 ACCOLADE II ANGL E HIP STEM 127 FDA Start: 01-12-2018 BIOLOX DELTA CER AMIC FEM HEAD FDA Start: 01-12-2018 MDM CEMENTLESS LINER FDA Star t: 01-12-2018 RESTORE X3 INSER T FOR MDM.ADM FDA Start: 01-12-2018 TRITANIUM CODIE CLUSTER SHELL FDA Start: 01-12-2018 CEMENT,BONE IONA H 1/2 BATCH FDA Start: 07-21-2021 ACCOLADE II ANGL E HIP STEM 127 FDA Start: 01-12-2018 BIOLOX DELTA CER AMIC FEM HEAD FDA Start: 01-12-2018 MDM CEMENTLESS LINER FDA Star t: 01-12-2018 RESTORE X3 INSER T FOR MDM.ADM FDA Start: 01-12-2018 TRITANIUM CODIE CLUSTER SHELL FDA Start: 01-12-2018 CEMENT,BONE IONA H 1/2 BATCH FDA Start: 07-21-2021 ACCOLADE II ANGL E HIP STEM 127 FDA Start: 01-12-2018 BIOLOX DELTA CER AMIC FEM HEAD FDA Start: 01-12-2018 MDM CEMENTLESS LINER FDA Star t: 01-12-2018 RESTORE X3 INSER T FOR MDM.ADM FDA Start: 01-12-2018 TRITANIUM CODIE CLUSTER SHELL FDA Start: 01-12-2018 CEMENT,BONE IONA H 1/2 BATCH FDA Start: 07-21-2021 ACCOLADE II ANGL E HIP STEM 127 FDA Start: 01-12-2018 BIOLOX DELTA CER AMIC FEM HEAD FDA Start: 01-12-2018 MDM CEMENTLESS LINER FDA Star t: 01-12-2018 RESTORE X3 INSER T FOR MDM.ADM FDA Start: 01-12-2018 TRITANIUM CODIE CLUSTER SHELL FDA Start: 01-12-2018 CEMENT,BONE IONA H 1/2 BATCH FDA Start: 07-21-2021 Goals Date Patient Goal Desired Activity /State Functional Status Date Assessment Result Facility 08-21-2023 Functional status Ambulates [facility] Work Phone: 05-01-2022 Functional status Ambulates [facility] Work Phone: 02-24-2022 Functional status Chair [facility] Work Phone: 02-17-2022 Functional status Ambulates;Chair [facility] Work Phone: 10-19-2021 Functional status Chair [facility] Work Phone: 07-28-2021 Functional status Chair [facility] Work Phone: 07-27-2021 Functional status Assistive Roberta karis [facility] Work Phone: 07-27-2021 Functional status Tolerates Activity Well [facility] Work Phone: 07-22-2021 Functional status Chair [facility] Work Phone: 09-13-2018 Are you deaf, or do you have serious difficulty hearing No 09/13/2018 12:21 PM Brandon Nagel MD No [facility] 09-13-2018 Are you blind, or do you have serious difficulty seeing, even when wearing glasses No 09/13/2018 12:21 PM Brandon Nagel MD No [facility] 09-13-2018 Do you have serious difficulty walking or climbing stairs No 09/13/2018 12:21 PM Brandon Nagel MD No [facility] 09-13-2018 Do you have difficul ty dressing or bathing No 09/13/2018 12:21 PM Brandon Nagel MD No [facility] 09-13-2018 Because of a physica l, mental, or emotional condition, do you have difficulty doing errands alone such as visiting a physician's office or shopping No 09/13/2018 12:21 PM Brandon Nagel MD No [facility] Mental Status Date Assessment Result Facility 09-10-2024 Cognitive function Voice/Name [facility] Work Phone: 08-21-2023 Cognitive function Voice/Name [facility] Work Phone: 08-18-2023 Cognitive function Level Of Cons ciousness Awake;Alert;Appropriate;Fol lows Commands [facility] Work Phone: 04-19-2023 Cognitive function Voice/Name [facility] Work Phone: 02-02-2023 Cognitive function Voice/Name [facility] Work Phone: 08-10-2022 Cognitive function Level Of Cons ciousness Awake;Alert;Appropriate;Fol lows Commands [facility] Work Phone: 05-01-2022 Cognitive function Voice/Name [facility] Work Phone: 04-26-2022 Cognitive function Voice/Name;Touch/Shaki ng [facility] Work Phone: 02-24-2022 Cognitive function Voice/Name [facility] Work Phone: 02-17-2022 Cognitive function Voice/Name [facility] Work Phone: 10-19-2021 Cognitive function Voice/Name [facility] Work Phone: 10-15-2021 Cognitive function Level Of Cons ciousness Awake;Alert;Appropriate;Fol lows Commands [facility] Work Phone: 07-28-2021 Cognitive function Voice/Name [facility] Work Phone: 07-26-2021 Cognitive function Appropriate;Cooperativ e [facility] Work Phone: 07-22-2021 Cognitive function Voice/Name [facility] Work Phone: 09-13-2018 Because of a physica l, mental, or emotional condition, do you have serious difficulty concentrating, remembering, or making decisions No 09/13/2018 12:21 PM EDT Brandon Cantor MD No [facility] Clinical Notes 08-10-2020 to 12-20-2024 Patient InstructionsChris Pearson Jr., MD - 12/20/2024 1:05 PM EDTTDebra zuleta - 12/13/2024 3:31 PM EDTSSusana leach LPN - 12/13/2024 3:12 PM EDTPatient InstructionsPatient Instructions Note Date & Type Note Facility 12-20-2024 Instructions Chris Pearson Jr., MD - 12/20/2024 1:32 PM EDT CHANGE IN MEDS: Short acting Carbidopa/Levodopa - currently you are taking 2 tablet three times per day. Please reduce this dose to 1.5 tablet three times per day to see if dizziness improves. Also recommend checking your HR and BP at least once daily during this week. Please send us a [employer] message next week to let us know how you are doing. If no change, will likely increase the dose back to 2 tablets. documented in this encounter [facility] 12-20-2024 Note HNO ID: [id number] Author: CHRIS PEARSON JR, MD Service: ? Author Type: Physician Type: Progress Notes Filed: 12/20/2024 13:55 Note Text: ESTABLISHED PATIENT VISIT CHIEF COMPLAINT: Follow Up HISTORY OF PRESENT ILLNESS: Rohan Olivia Jr. is a 79 year old male, BMI 28.09 kg/m2 with a PMH significant for and per last office visit of 08/16/24: 1. Parkinson's disease, unspecified whether dyskinesia present, unspecified whether manifestations fluctuate (HCC) - ICD9: 332.0, ICD10: G20.A1 (primary diagnosis) 2. Abnormality of gait - ICD9: 781.2, ICD10: R26.9 Overall showing improvement since we adjusted med dosing. However, somewhat difficult to assess effectiveness of Sinemet given pt took last dose 4 hours prior to evaluation. That said, do feel room for further improvement and patient agrees. He is continuing in therapy as above. Will increase Sinemet 25/100mg to CARBIDOPA-LEVODOPA 25/100mg Increase to 2 tablets at 8AM, Noon and 4PM. In addition, to avoid significant drops in dopamine levels and thus, off effect, will increase Sinemet CR 50/200mg dosing so that pt now takes twice daily. CARBIDOPA-LEVODOPA CR 50/200mg Take 1 tablet at 8AM (with short acting Carbidopa-Levodopa) and 1 tablet 9PM. Pt reports doing decent. Does not note any side effects. States he has been on a heart monitor due to a variable heart rate with bradycardia as low as 36 beats per minute. Known history of bradycardia but now having episodes of dizziness. Note dizziness present about 3-4 times per day. Did not have noticeable improvement since increase in Sinemet dosing. feels where he has improved has been going to the Parkinson therapy classes. No falls. Last dose of meds again over 4 hours before time of appointment. Note review of meds indicates Dr. Galvan did stop Lopressor. Thyroid levels normal in 05/2024. States only limits on daily basis is ability to work in the yard such as trimming trees and pulling weeds. Denies an on-off effect. Has noticed freezing at times. Sitting 110/66 with HR of 72 Standing 117/64 with HR of 74 REVIEW OF SYSTEMS GENERAL:No weight loss, malaise or fevers. HEENT:Negative for frequent or significant headaches, No changes in hearing or vision, no nose bleeds or other nasal problems NECK:Negative for lumps, goiter, pain and significant neck swelling RESPIRATORY: Negative for cough, wheezing or shortness of breath. CARDIOVASCULAR: See HPI. GASTROINTESTINAL: Negative for abdominal discomfort, blood in stools or black stools or change in bowel habits GENITOURINARY: No history of dysuria, frequency or incontinence MUSCULOSKELETAL: Negative for joint pain or swelling, back pain or muscle pain. NEUROLOGIC:Negative for focal numbness or weakness, headaches and dizziness or syncope, vision changes, speech/languag changes - EXCEPT that as per HPI above. SKIN:Negative for lesions, rash, and itching. LAB/IMAGING: Those performed since patient's last visit have been reviewed. WBC (k/uL) Date Value 05/18/2024 6.26 RBC (m/uL) Date Value 05/18/2024 5.26 Hemoglobin (g/dL) Date Value 05/18/2024 16.4 Hematocrit (%) Date Value 05/18/2024 49.4 MCV (fL) Date Value 05/18/2024 93.9 MCH (pg) Date Value 05/18/2024 31.2 MCHC (g/dL) Date Value 05/18/2024 33.2 RDW-CV (%) Date Value 05/18/2024 14.0 Platelet Count (k/uL) Date Value 05/18/2024 92 (L) MPV (fL) Date Value 05/18/2024 12.1 Glucose (mg/dL) Date Value 09/27/2024 91 BUN (mg/dL) Date Value 09/27/2024 16 Creatinine (mg/dL) Date Value 09/27/2024 1.23 (H) Sodium (mmol/L) Date Value 09/27/2024 142 Potassium (mmol/L) Date Value 09/27/2024 4.7 Chloride (mmol/L) Date Value 09/27/2024 107 CO2 (mmol/L) Date Value 09/27/2024 26 Protein, Total (g/dL) Date Value 05/18/2024 6.6 Albumin (g/dL) Date Value 05/18/2024 4.1 Calcium, Total (mg/dL) Date Value 09/27/2024 9.1 Alkaline Phosphatase (U/L) Date Value 05/18/2024 105 Bilirubin, Total (mg/dL) Date Value 05/18/2024 1.0 AST (U/L) Date Value 05/18/2024 16 ALT (U/L) Date Value 05/18/2024 6 (L) Hep C Antibody IA (no units) Date Value 10/03/2014 Negative MEDICATIONS: PARoxetine (PAXIL) 20 mg tablet Take 1 tablet by mouth once daily. carbidopa-levodopa CR (SINEMET CR) 50-200 mg per tablet Take 1 tab at 8AM and 1 tab at 9PM nightly. carbidopa-levodopa (SINEMET) 25-100 mg per tablet Take 2 tablets at 8AM, Noon and 4PM. methIMAzole (TAPAZOLE) 5 mg tablet Take 1 tablet by mouth once daily. potassium chloride SR (MICRO-K) 10 mEq CR capsule Take 1 capsule by mouth two times a day. aspirin 81 mg cap Take 81 mg by mouth once daily. pantoprazole DR (PROTONIX) 40 mg tablet Take 40 mg by mouth once daily. cholestyramine/aspartame (CHOLESTYRAMINE LIGHT ORAL) Take by mouth once daily. isosorbide mononitrate ER (IMDUR) 30 mg 24 hr tablet Take 1 tablet by mouth once da (more content not included)... [facility] 12-20-2024 History of Presen t illness Narrative ESTABLISHED PATIENT VISIT CHIEF COMPLAINT: Follow Up HISTORY OF PRESENT ILLNESS: Rohan Olivia Jr. is a 79 year old male, BMI 28.09 kg/m2 with a PMH significant for and per last office visit of 08/16/24: 1. Parkinson's disease, unspecified whether dyskinesia present, unspecified whether manifestations fluctuate ([facility]) - ICD9: 332.0, ICD10: G20.A1 (primary diagnosis) 2. Abnormality of gait - ICD9: 781.2, ICD10: R26.9 Overall showing improvement since we adjusted med dosing. However, somewhat difficult to assess effectiveness of Sinemet given pt took last dose 4 hours prior to evaluation. That said, do feel room for further improvement and patient agrees. He is continuing in therapy as above. Will increase Sinemet 25/100mg to CARBIDOPA-LEVODOPA 25/100mg Increase to 2 tablets at 8AM, Noon and 4PM. In addition, to avoid significant drops in dopamine levels and thus, off effect, will increase Sinemet CR 50/200mg dosing so that pt now takes twice daily. CARBIDOPA-LEVODOPA CR 50/200mg Take 1 tablet at 8AM (with short acting Carbidopa-Levodopa) and 1 tablet 9PM. Pt reports doing decent. Does not note any side effects. States he has been on a heart monitor due to a variable heart rate with bradycardia as low as 36 beats per minute. Known history of bradycardia but now having episodes of dizziness. Note dizziness present about 3-4 times per day. Did not have noticeable improvement since increase in Sinemet dosing. feels where he has improved has been going to the Parkinson therapy classes. No falls. Last dose of meds again over 4 hours before time of appointment. Note review of meds indicates Dr. Galvan did stop Lopressor. Thyroid levels normal in 05/2024. States only limits on daily basis is ability to work in the yard such as trimming trees and pulling weeds. Denies an on-off effect. Has noticed freezing at times. Sitting 110/66 with HR of 72 Standing 117/64 with HR of 74 REVIEW OF SYSTEMS GENERAL:No weight loss, malaise or fevers. HEENT:Negative for frequent or significant headaches, No changes in hearing or vision, no nose bleeds or other nasal problems NECK:Negative for lumps, goiter, pain and significant neck swelling RESPIRATORY: Negative for cough, wheezing or shortness of breath. CARDIOVASCULAR: See HPI. GASTROINTESTINAL: Negative for abdominal discomfort, blood in stools or black stools or change in bowel habits GENITOURINARY: No history of dysuria, frequency or incontinence MUSCULOSKELETAL: Negative for joint pain or swelling, back pain or muscle pain. NEUROLOGIC:Negative for focal numbness or weakness, headaches and dizziness or syncope, vision changes, speech/languag changes - EXCEPT that as per HPI above. SKIN:Negative for lesions, rash, and itching. LAB/IMAGING: Those performed since patient's last visit have been reviewed. WBC (k/uL) Date Value 05/18/2024 6.26 RBC (m/uL) Date Value 05/18/2024 5.26 Hemoglobin (g/dL) Date Value 05/18/2024 16.4 Hematocrit (%) Date Value 05/18/2024 49.4 MCV (fL) Date Value 05/18/2024 93.9 MCH (pg) Date Value 05/18/2024 31.2 MCHC (g/dL) Date Value 05/18/2024 33.2 RDW-CV (%) Date Value 05/18/2024 14.0 Platelet Count (k/uL) Date Value 05/18/2024 92 (L) MPV (fL) Date Value 05/18/2024 12.1 Glucose (mg/dL) Date Value 09/27/2024 91 BUN (mg/dL) Date Value 09/27/2024 16 Creatinine (mg/dL) Date Value 09/27/2024 1.23 (H) Sodium (mmol/L) Date Value 09/27/2024 142 Potassium (mmol/L) Date Value 09/27/2024 4.7 Chloride (mmol/L) Date Value 09/27/2024 107 CO2 (mmol/L) Date Value 09/27/2024 26 Protein, Total (g/dL) Date Value 05/18/2024 6.6 Albumin (g/dL) Date Value 05/18/2024 4.1 Calcium, Total (mg/dL) Date Value 09/27/2024 9.1 Alkaline Phosphatase (U/L) Date Value 05/18/2024 105 Bilirubin, Total (mg/dL) Date Value 05/18/2024 1.0 AST (U/L) Date Value 05/18/2024 16 ALT (U/L) Date Value 05/18/2024 6 (L) Hep C Antibody IA (no units) Date Value 10/03/2014 Negative MEDICATIONS: PARoxetine (PAXIL) 20 mg tablet Take 1 tablet by mouth once daily. carbidopa-levodopa CR (SINEMET CR) 50-200 mg per tablet Take 1 tab at 8AM and 1 tab at 9PM nightly. carbidopa-levodopa (SINEMET) 25-100 mg per tablet Take 2 tablets at 8AM, Noon and 4PM. methIMAzole (TAPAZOLE) 5 mg tablet Take 1 tablet by mouth once daily. potassium chloride SR (MICRO-K) 10 mEq CR capsule Take 1 capsule by mouth two times a day. aspirin 81 mg cap Take 81 mg by mouth once daily. pantoprazole DR (PROTONIX) 40 mg tablet Take 40 mg by mouth once daily. cholestyramine/aspartame (CHOLESTYRAMINE LIGHT ORAL) Take by mouth once daily. isosorbide mononitrate ER (IMDUR) 30 mg 24 hr tablet Take 1 tablet by mouth once daily. atorvastatin (LIPITOR) 20 mg tablet Take 1 tablet by mouth daily at bedtime. For cholesterol. ketoconazole (NIZORAL) 2 % shampoo Apply to affected area two times a week. Per [facility]. PRN tamsulosin (FLOMAX) 0.4 mg Take 0.4 mg by mouth once daily. LORazepam (ATIVAN) 1 mg tablet Take 1 tablet by mouth at bedtime as needed for anxiety for up to 90 days. 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 Chronic midline low back pain without sciatica 04/23/2019 Clostridium difficile diarrhea 08/21/2021 Coronary artery disease of [place] artery of [place] heart with stable angina pectoris 08/24/2020 Elevated prostate specific antigen (PSA) 04/22/2016 Enterocolitis due to Clostridium difficile 05/25/2015 Gross hematuria 01/30/2018 Hemarthrosis following procedure 07/23/2021 Right knee s/p TKR Hypertension 05/04/2009 Hyperthyroidism, subclinical 06/19/2009 Irritable bowel syndrome with diarrhea 10/22/2015 Melanoma in situ of unspecified part of face (HCC) 07/04/[address] nodules on CT 02/26/2020 OA (osteoarthritis) of knee 01/24/2013 Obesity 06/19/2009 Obesity, Class I, BMI 30-34.9 10/19/2017 Other chest pain Sandrita Mortensen MD. [facility] 08/20/2020. Other pulmonary embolism with acute cor pulmonale (HCC) 01/30/2018 fall, right hip fracture, right total hip Other pulmonary embolism with acute cor pulmonale (HCC) Panic attacks 2001 previously on Xanax Parkinson's disease (HCC) 11/17/2021 Pulmonary hypertension (HCC) 01/30/2018 Renal cell cancer, left (HCC) 05/05/2022 Seborrheic keratosis 06/19/2009 Stage 3a chronic kidney disease (HCC) 05/19/2023 Thyrotoxicosis without thyroid storm 11/17/2021 FAMILY HISTORY Problem Relation Age of Onset Psychiatry Mother Anxiety COPD Mother Heart Mother Heart failure, age 94 other (Other) Mother Parkinson's Cancer Father lung cancer, age 86 Psychiatry Sister Panic attacks Emphysema Maternal Grandfather 50 years working on [employer], coal smoke inhalation. Asthma Maternal Grandfather Colon Cancer Other Maternal 1st cousin age 40s SOCIAL HISTORY Social History Tobacco Use Smoking status: Former Current packs/day: 0.00 Average packs/day: 2.0 packs/day for 35.0 years (70.0 ttl pk-yrs) Types: Cigarettes Start date: 1964 Quit date: 07/05/1998 Years since quittin.4 Smokeless tobacco: Never Vaping Use Vaping status: Never Used Substance Use Topics Alcohol use: No Drug use: No PHYSICAL EXAMINATION BP 110/64 Pulse 73 Resp 16 Wt 86.3 kg (190 lb 3.2 oz) SpO2 96% BMI 28.09 kg/m GENERAL EXAM: General appearance: NAD, pleasant. HEENT: NC/AT, nasal congestion absent, no oral lesions, membranes moist. NECK: No masses, supple. Lungs: CTA bilaterally. No wheezes present. CV: RRR nl S1, S2, no murmurs. Extr: No cyanosis, clubbing or edema. Skin: Cool to touch. NEUROLOGICAL EXAM: General: Awake, alert, oriented x3 (person,place,time), speech fluent, no dysarthria; comprehension, naming, repetition intact. CN: PERRL, EOMI and without nystagmus, VFF to confrontation, facial sensation and strength are normal and symmetric, hearing is intact to finger rub bilaterally, palate and tongue movements are intact and symmetric. SCM and trapezius strength normal. Motor: Increased tone in RUE (mild), bulk and strength (5/5) bilaterally (throughout extremities x4). Coordination: FNF, WILLIE, HTS intact. No tremors. Sensation: Light touch intact throughout. No evidence of neglect. Gait: No issues rising from chair without UEs. Gait mildly unstable but appears due to L knee giving out - pt with planned TKR. Stride otherwise normal. Decrease arm swing in RUE. Assessment and Plan: ASSESSMENT/PLAN: 1. Parkinson's disease, unspecified whether dyskinesia present, unspecified whether manifestations fluctuate (HCC) - ICD9: 332.0, ICD10: G20.A1 (primary diagnosis) 2. Abnormality of gait - ICD9: 781.2, ICD10: R26.9 3. Lightheaded - ICD9: 780.4, ICD10: R42 4. Bradycardia - ICD9: 427.89, ICD10: R00.1 Overall, appears stable, but with last visit, difficult to assess benefit of medication with it being >5 hours since his last taking Sinemet. Gait abnormality multifactorial including PD but also need to have LTKR. Regarding dizziness and bradycardia, uncertain etiology and no improvement it appears despite Lopressor being held. Pt not orthostatic in office. Still possible an effect of Sinemet. Will have patient reduce Sinemet 25/100mg dose back to 1.5 tabs TID from 2 tabs TID and monitor symptoms and BP/HR for the next week. They will reach out to us next week. If symptoms do not improve will increase dose back to 2 tabs TID. No changes to Sinemet CR dosing as above. No additional recs at this time. Encouraged pt continue with PT. Encouraged his evaluation with cardiology. Chris Pearson MD I spent a total of 40 minutes on the date of the service which included preparing to see the patient, [id number] patient care, completing clinical documentation, obtaining and/or reviewing separately obtained history, performing a medically appropriate examination, counseling and educating the patient/family/caregiver, ordering medications, tests, or procedures, and communicating results to the patient/family/caregiver. documented in this encounter [facility] 12-13-2024 Note HNO ID: [id number] Author: DEBRA CASTREJON, ? Service: ? Author Type: Physician Type: Progress Notes Filed: 12/14/2024 11:16 Note Text: Subjective: Patient presents to clinic c/o painful toenails. They state that the nails are especially painful with shoe gear and pressure. Patient states that nails 1-5 b/l are painful. Patient complains of callus to feet. No other pedal complaints at this time. Patient states no change in medications or medical history since last visit. Objective: Patient presents to clinic ambulating in sneakers Vasc: DP and PT pulses are palpable bilateral. CFT is less than 5 seconds bilateral. Skin temperature is warm to cool proximal to distal bilateral. There is mild edema or varicosities noted. Neuro: Protective sensation is intact to the foot and toes when tested with the 5.07 SWM bilateral. Vibratory sensation is decreased at the hallux IPJ bilateral. The hallux is downgoing bilateral. Derm: Nails 1-5 b/l are painful, discolored-yellow, thick, crumbly, dystrophic and with subungal debris. Skin is of normal turgor, texture and hair growth is present bilateral. There are callus to right 5th metatarsal head Ortho: Muscle strength is 5/5 for all pedal groups tested. Ankle joint DF is decreased with the knee extended with no pain or crepitus noted. 1st MPJ ROM is decreased bilateral. Assessment: (B35.1) Onychomycosis (primary encounter diagnosis) (M79.675) Pain in toe of left foot (M79.674) Pain in toe of right foot (L84) Callus of foot Plan: Patient was seen and evaluated. Nails 1-5 bilateral were debrided in length and thickness. Callus was reduced to right foot with 15 blade and dremmel Continue with offloading pad for callus Patient is to RTC in 3-4 months. Debra Castrejon DPM [facility] 12-13-2024 History of Presen t illness Narrative Subjective: Patient presents to clinic c/o painful toenails. They state that the nails are especially painful with shoe gear and pressure. Patient states that nails 1-5 b/l are painful. Patient complains of callus to feet. No other pedal complaints at this time. Patient states no change in medications or medical history since last visit. Objective: Patient presents to clinic ambulating in [facility] Vasc: DP and PT pulses are palpable bilateral. CFT is less than 5 seconds bilateral. Skin temperature is warm to cool proximal to distal bilateral. There is mild edema or varicosities noted. Neuro: Protective sensation is intact to the foot and toes when tested with the 5.07 SWM bilateral. Vibratory sensation is decreased at the hallux IPJ bilateral. The hallux is downgoing bilateral. Derm: Nails 1-5 b/l are painful, discolored-yellow, thick, crumbly, dystrophic and with subungal debris. Skin is of normal turgor, texture and hair growth is present bilateral. There are callus to right 5th metatarsal head Ortho: Muscle strength is 5/5 for all pedal groups tested. Ankle joint DF is decreased with the knee extended with no pain or crepitus noted. 1st MPJ ROM is decreased bilateral. Assessment: (B35.1) Onychomycosis (primary encounter diagnosis) (M79.675) Pain in toe of left foot (M79.674) Pain in toe of right foot (L84) Callus of foot Plan: Patient was seen and evaluated. Nails 1-5 bilateral were debrided in length and thickness. Callus was reduced to right foot with 15 blade and dremmel Continue with offloading pad for callus Patient is to RTC in 3-4 months. Debra Castrejon DPM AMB ROOMING INTAKE FLOWSHEET DATA Pain Pain Level: 3 Pain Location: Foot-Right Description: Sore Duration Amount of Time: 1 Duration Units: Months Frequency: Intermittent Intervention/Comfort measure: Relaxation, Reposition Patient presents with: Left Foot - Established Patient, Follow Up, nail care Right Foot - Established Patient, Follow Up, nail care, Mayito Gonsalez LPN documented in this encounter [facility] 12-13-2024 Note HNO ID: [id number] Author: SUSANA GONSALEZ LPN Service: ? Author Type: LICENSED NURSE Type: Progress Notes Filed: 12/14/2024 11:16 Note Text: AMB ROOMING INTAKE FLOWSHEET DATA Pain Pain Level: 3 Pain Location: Foot-Right Description: Sore Duration Amount of Time: 1 Duration Units: Months Frequency: Intermittent Intervention/Comfort measure: Relaxation, Reposition Patient presents with: Left Foot - Established Patient, Follow Up, nail care Right Foot - Established Patient, Follow Up, nail care, Mayito Gonsalez LPN [facility] 11-26-2024 Telephone encounter Note Patient scheduled Thanks Chandler Ware [facility] 11-26-2024 Miscellaneous Notes Patient scheduled Thanks Chandler Ware Dr. Mortensen put in EP referral. He would like him to see them first. Marie Charles MA I have reached out to Dr. Mortensen about Mr. Olivia. Please assist scheduling cardiology follow up soon (I.e. 1-2 months) Patient called into office speaking with PSS about getting a appointment sooner with . He stated that you recommended a sooner appointment than Novemeber with . Please review and advise further Lynette Robles LPN documented in this encounter [facility] 11-25-[address] Mortensen put in EP referral. He would like him to see them first. Marie Charles MA [facility] 11-20-2024 Telephone encounter Note I have reached out to Dr. Mortensen about Mr. Olivia. Please assist scheduling cardiology follow up soon (I.e. 1-2 months) [facility] 11-18-2024 Telephone encounter Note Patient called into office speaking with PSS about getting a appointment sooner with . He stated that you recommended a sooner appointment than Novemeber with . Please review and advise further Lynette Robles LPN [facility] 11-15-2024 Instructions Brandon Cantor MD - 11/15/2024 12:20 PM EDT Take metoprolol 1/2 tablet once daily for 2 days, then STOP metoprolol. documented in this encounter [facility] 11-15-2024 Note HNO ID: [id number] Author: BRANDON CANTOR MD Service: ? Author Type: Physician Type: Progress Notes Filed: 11/15/2024 13:41 Note Text: This note was created using [employer]. Subjective Patient presents with: 6 Month Exam Rohan Olivia Jr. is a 79 year old male. Recording using [employer] software for draft documentation of the visit was discussed with the patient/authorized electronics parts sales representative; all questions welcomed and answered. Patient/authorized electronics parts sales representative agreed to proceed Bradycardia: - Heart rate today is 51 bpm; previously recorded as low as 36 bpm. - Recent Holter monitor placement; metoprolol dosage was reduced by half following results. - Scheduled to see cassandra architect Dr. Mortensen on April 28. - Inquires about the possibility of needing a pacemaker. Dizziness: - Intermittent dizziness since Holter monitor placement approximately 3 weeks ago. - Noted dizziness upon waking this morning. Nausea: - Nausea onset today, described as an upset stomach. - Denies emesis or diarrhea. - Denies recent episodes of nausea, stating it is not a frequent occurrence. - Denies recent illness, including cold, fever, or flu. Arthralgia: - Chronic arthralgia, no new or worsening pain reported today. Anxiety: - Controlled. Paroxetine due for refill. 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 Pectoris Parkinson's Disease (Hcc) Vasomotor Rhinitis Platelets Decreased Stage 3a Chronic Kidney Disease (Hcc) History of Renal Cell Cancer Social History Tobacco Use Smoking status: Former Current packs/day: 0.00 Average packs/day: 2.0 packs/day for 35.0 years (70.0 ttl pk-yrs) Types: Cigarettes Start date: 1964 Quit date: 07/05/1998 Years since quittin.3 Smokeless tobacco: Never Vaping Use Vaping status: Never Used Substance Use Topics Alcohol use: No Drug use: No Current Outpatient Medications Medication Sig metoprolol tartrate, short acting, (LOPRESSOR) 25 mg tablet Take 0.5 tablets by mouth two times a day. carbidopa-levodopa CR (SINEMET CR) 50-200 mg per tablet Take 1 tab at 8AM and 1 tab at 9PM nightly. carbidopa-levodopa (SINEMET) 25-100 mg per tablet Take 2 tablets at 8AM, Noon and 4PM. methIMAzole (TAPAZOLE) 5 mg tablet Take 1 tablet by mouth once daily. LORazepam (ATIVAN) 1 mg tablet Take 1 tablet by mouth at bedtime as needed for anxiety for up to 90 days. potassium chloride SR (MICRO-K) 10 mEq CR capsule Take 1 capsule by mouth two times a day. aspirin 81 mg cap Take 81 mg by mouth once daily. pantoprazole DR (PROTONIX) 40 mg tablet Take 40 mg by mouth once daily. cholestyramine/aspartame (CHOLESTYRAMINE LIGHT ORAL) Take by mouth once daily. isosorbide mononitrate ER (IMDUR) 30 mg 24 hr tablet Take 1 tablet by mouth once daily. atorvastatin (LIPITOR) 20 mg tablet Take 1 tablet by mouth daily at bedtime. For cholesterol. PARoxetine (PAXIL) 20 mg tablet Take 1 tablet by mouth once daily. ketoconazole (NIZORAL) 2 % shampoo Apply to affected area two times a week. Per [facility]. PRN tamsulosin (FLOMAX) 0.4 mg Take 0.4 mg by mouth once daily. No current facility-administered medications for this visit. Objective BP (!) 100/46 (BP Site: Right Arm, BP Position: Sitting, BP Cuff Size: Large Adult) Pulse (!) 56 Temp 36.9 ?C (98.5 ?F) Resp 16 Wt 86.3 kg (190 lb 4.1 oz) BMI 28.10 kg/m? Physical Exam Constitutional: General: He is not in acute distress. Appearance: He is not ill-appearing or diaphoretic. HENT: Nose: No congestion or rhinorrhea. Mouth/Throat: Mouth: Mucous membranes are moist. Cardiovascular: Rate and Rhythm: Regular rhythm. Bradycardia present. Heart sounds: No murmur heard. No gallop. Pulmonary: Breath sounds: Normal breath sounds. Musculoskeletal: Right lower leg: No edema. Left lower leg: No edema. Neurological: General: No focal deficit present. Mental Status: He is alert. Motor: Tremor and abnormal muscle tone present. Gait: Gait abnormal. Test results pertinent to today's visit were reviewed and discussed with the patient. Assessment and Plan 1. Bradyarrhythmia - ICD9: 427.89, ICD10: I49.8 (primary diagnosis) - Wean off METOPROLOL and discontinue. 2. Primary hypertension - ICD9: 401.9, ICD10: I10 - Controlled - Continue current medications 3. Dizziness - ICD9: 780.4, ICD10: R42 (more content not included)... [facility] 11-15-2024 History of Presen t illness Narrative This note was created using [employer]. Subjective Patient presents with: 6 Month Exam Rohan Olivia Jr. is a 79 year old male. Recording using [employer] software for draft documentation of the visit was discussed with the patient/authorized electronics parts sales representative; all questions welcomed and answered. Patient/authorized electronics parts sales representative agreed to proceed Bradycardia: - Heart rate today is 51 bpm; previously recorded as low as 36 bpm. - Recent Holter monitor placement; metoprolol dosage was reduced by half following results. - Scheduled to see cassandra architect Dr. Mortensen on April 28. - Inquires about the possibility of needing a pacemaker. Dizziness: - Intermittent dizziness since Holter monitor placement approximately 3 weeks ago. - Noted dizziness upon waking this morning. Nausea: - Nausea onset today, described as an upset stomach. - Denies emesis or diarrhea. - Denies recent episodes of nausea, stating it is not a frequent occurrence. - Denies recent illness, including cold, fever, or flu. Arthralgia: - Chronic arthralgia, no new or worsening pain reported today. Anxiety: - Controlled. Paroxetine due for refill. 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 Pectoris Parkinson's Disease (Hcc) Vasomotor Rhinitis Platelets Decreased Stage 3a Chronic Kidney Disease (Hcc) History of Renal Cell Cancer Social History Tobacco Use Smoking status: Former Current packs/day: 0.00 Average packs/day: 2.0 packs/day for 35.0 years (70.0 ttl pk-yrs) Types: Cigarettes Start date: 1964 Quit date: 07/05/1998 Years since quittin.3 Smokeless tobacco: Never Vaping Use Vaping status: Never Used Substance Use Topics Alcohol use: No Drug use: No Current Outpatient Medications Medication Sig metoprolol tartrate, short acting, (LOPRESSOR) 25 mg tablet Take 0.5 tablets by mouth two times a day. carbidopa-levodopa CR (SINEMET CR) 50-200 mg per tablet Take 1 tab at 8AM and 1 tab at 9PM nightly. carbidopa-levodopa (SINEMET) 25-100 mg per tablet Take 2 tablets at 8AM, Noon and 4PM. methIMAzole (TAPAZOLE) 5 mg tablet Take 1 tablet by mouth once daily. LORazepam (ATIVAN) 1 mg tablet Take 1 tablet by mouth at bedtime as needed for anxiety for up to 90 days. potassium chloride SR (MICRO-K) 10 mEq CR capsule Take 1 capsule by mouth two times a day. aspirin 81 mg cap Take 81 mg by mouth once daily. pantoprazole DR (PROTONIX) 40 mg tablet Take 40 mg by mouth once daily. cholestyramine/aspartame (CHOLESTYRAMINE LIGHT ORAL) Take by mouth once daily. isosorbide mononitrate ER (IMDUR) 30 mg 24 hr tablet Take 1 tablet by mouth once daily. atorvastatin (LIPITOR) 20 mg tablet Take 1 tablet by mouth daily at bedtime. For cholesterol. PARoxetine (PAXIL) 20 mg tablet Take 1 tablet by mouth once daily. ketoconazole (NIZORAL) 2 % shampoo Apply to affected area two times a week. Per [facility]. PRN tamsulosin (FLOMAX) 0.4 mg Take 0.4 mg by mouth once daily. No current facility-administered medications for this visit. Objective BP (!) 100/46 (BP Site: Right Arm, BP Position: Sitting, BP Cuff Size: Large Adult) Pulse (!) 56 Temp 36.9 C (98.5 F) Resp 16 Wt 86.3 kg (190 lb 4.1 oz) BMI 28.10 kg/m Physical Exam Constitutional: General: He is not in acute distress. Appearance: He is not ill-appearing or diaphoretic. HENT: Nose: No congestion or rhinorrhea. Mouth/Throat: Mouth: Mucous membranes are moist. Cardiovascular: Rate and Rhythm: Regular rhythm. Bradycardia present. Heart sounds: No murmur heard. No gallop. Pulmonary: Breath sounds: Normal breath sounds. Musculoskeletal: Right lower leg: No edema. Left lower leg: No edema. Neurological: General: No focal deficit present. Mental Status: He is alert. Motor: Tremor and abnormal muscle tone present. Gait: Gait abnormal. Test results pertinent to today's visit were reviewed and discussed with the patient. Assessment and Plan 1. Bradyarrhythmia - ICD9: 427.89, ICD10: I49.8 (primary diagnosis) - Wean off METOPROLOL and discontinue. 2. Primary hypertension - ICD9: 401.9, ICD10: I10 - Controlled - Continue current medications 3. Dizziness - ICD9: 780.4, ICD10: R42 - Due to #1. 4. Nausea without vomiting - ICD9: 787.02, ICD10: R11.0 - Due to #1. 5. Anxiety - ICD9: 300.00, ICD10: F41.9 Controlled. Continue medication. - PAROXETINE 20 MG TABLET Brandon Cantor MD documented in this encounter [facility] 10-18-2024 Note HNO ID: [id number] Author: BRANDON CANTOR MD Service: ? Author Type: Physician Type: Progress Notes Filed: 10/19/2024 08:58 Note Text: This note was created using NoteWriter. Subjective Rohan Olivia Jr. is a 79 year old male. He was here to discuss his Zio results. Since reducing metoprolol he's had maybe 2 episodes of orthostatic lightheadedness. We reviewed Zio findings were generally benign. He had triggered the monitor around episodes of junctional rhythm. His hypertension was staying controlled. He will see cardiology in the fall. Repeat Zio is not commonly indicated. Review of Systems Constitutional: Negative for fatigue. Respiratory: Negative for shortness of breath. Cardiovascular: Negative for chest pain and palpitations. Neurological: Negative for syncope. 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 (Patient taking differently: Take 25 mg by mouth two times a day.) carbidopa-levodopa (SINEMET) 25-100 mg per tablet Take 2 tablets at 8AM, Noon and 4PM. methIMAzole (TAPAZOLE) 5 mg tablet Take 1 tablet by mouth once daily. LORazepam (ATIVAN) 1 mg tablet Take 1 tablet by mouth at bedtime as needed for anxiety for up to 90 days. potassium chloride SR (MICRO-K) 10 mEq CR capsule Take 1 capsule by mouth two times a day. aspirin 81 mg cap Take 81 mg by mouth once daily. pantoprazole DR (PROTONIX) 40 mg tablet Take 40 mg by mouth once daily. cholestyramine/aspartame (CHOLESTYRAMINE LIGHT ORAL) Take by mouth once daily. isosorbide mononitrate ER (IMDUR) 30 mg 24 hr tablet Take 1 tablet by mouth once daily. atorvastatin (LIPITOR) 20 mg tablet Take 1 tablet by mouth daily at bedtime. For cholesterol. PARoxetine (PAXIL) 20 mg tablet Take 1 tablet by mouth once daily. ketoconazole (NIZORAL) 2 % shampoo Apply to affected area two times a week. Per [facility]. PRN tamsulosin (FLOMAX) 0.4 mg Take 0.4 mg by mouth once daily. carbidopa-levodopa CR (SINEMET CR) 50-200 mg per tablet Take 1 tab at 8AM and 1 tab at 9PM nightly. (Patient not taking: Reported on 09/12/2024) No current facility-administered medications for this visit. Objective BP 142/56 Pulse (!) 58 Ht 175.3 cm (5' 9) Wt 86.1 kg (189 lb 13.1 oz) SpO2 93% BMI 28.03 kg/m? Physical Exam Constitutional: Appearance: He is not ill-appearing. Cardiovascular: Rate and Rhythm: Regular rhythm. Bradycardia present. Heart sounds: No murmur heard. No gallop. Pulmonary: Breath sounds: Normal breath sounds. Musculoskeletal: Right lower leg: No edema. Left lower leg: No edema. Neurological: General: No focal deficit present. Mental Status: He is alert. BP 122/54 (BP Site: Right Arm) Assessment and Plan 1. Near syncope - ICD9: 780.2, ICD10: R55 (primary diagnosis) Resolved. 2. Primary hypertension - ICD9: 401.9, ICD10: I10 - Controlled - Continue current medications 3. Bradyarrhythmia - ICD9: 427.89, ICD10: I49.8 Improved. 4. Coronary artery disease of [place] artery of [place] heart with stable angina pectoris - ICD9: 414.01, 413.9, ICD10: I25.118 Stable. - METOPROLOL TARTRATE 25 MG TABLET. Continue 12.5 mg BID. 5. Parkinson's disease, unspecified whether dyskinesia present, unspecified whether manifestations fluctuate (HCC) - ICD9: 332.0, ICD10: G20.A1 - We discussed dysautonomia and precautions that might help. - CARBIDOPA ER 50 MG-LEVODOPA 200 MG TABLET,EXTENDED RELEASE - We clarified his regimen. Brandon Cantor MD [facility] 10-18-2024 History of Presen t illness Narrative This note was created using NoteWriter. Subjective Rohan Olivia Jr. is a 79 year old male. He was here to discuss his Zio results. Since reducing metoprolol he's had maybe 2 episodes of orthostatic lightheadedness. We reviewed Zio findings were generally benign. He had triggered the monitor around episodes of junctional rhythm. His hypertension was staying controlled. He will see cardiology in the fall. Repeat Zio is not commonly indicated. Review of Systems Constitutional: Negative for fatigue. Respiratory: Negative for shortness of breath. Cardiovascular: Negative for chest pain and palpitations. Neurological: Negative for syncope. 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 (Patient taking differently: Take 25 mg by mouth two times a day.) carbidopa-levodopa (SINEMET) 25-100 mg per tablet Take 2 tablets at 8AM, Noon and 4PM. methIMAzole (TAPAZOLE) 5 mg tablet Take 1 tablet by mouth once daily. LORazepam (ATIVAN) 1 mg tablet Take 1 tablet by mouth at bedtime as needed for anxiety for up to 90 days. potassium chloride SR (MICRO-K) 10 mEq CR capsule Take 1 capsule by mouth two times a day. aspirin 81 mg cap Take 81 mg by mouth once daily. pantoprazole DR (PROTONIX) 40 mg tablet Take 40 mg by mouth once daily. cholestyramine/aspartame (CHOLESTYRAMINE LIGHT ORAL) Take by mouth once daily. isosorbide mononitrate ER (IMDUR) 30 mg 24 hr tablet Take 1 tablet by mouth once daily. atorvastatin (LIPITOR) 20 mg tablet Take 1 tablet by mouth daily at bedtime. For cholesterol. PARoxetine (PAXIL) 20 mg tablet Take 1 tablet by mouth once daily. ketoconazole (NIZORAL) 2 % shampoo Apply to affected area two times a week. Per [facility]. PRN tamsulosin (FLOMAX) 0.4 mg Take 0.4 mg by mouth once daily. carbidopa-levodopa CR (SINEMET CR) 50-200 mg per tablet Take 1 tab at 8AM and 1 tab at 9PM nightly. (Patient not taking: Reported on 09/12/2024) No current facility-administered medications for this visit. Objective BP 142/56 Pulse (!) 58 Ht 175.3 cm (5' 9) Wt 86.1 kg (189 lb 13.1 oz) SpO2 93% BMI 28.03 kg/m Physical Exam Constitutional: Appearance: He is not ill-appearing. Cardiovascular: Rate and Rhythm: Regular rhythm. Bradycardia present. Heart sounds: No murmur heard. No gallop. Pulmonary: Breath sounds: Normal breath sounds. Musculoskeletal: Right lower leg: No edema. Left lower leg: No edema. Neurological: General: No focal deficit present. Mental Status: He is alert. BP 122/54 (BP Site: Right Arm) Assessment and Plan 1. Near syncope - ICD9: 780.2, ICD10: R55 (primary diagnosis) Resolved. 2. Primary hypertension - ICD9: 401.9, ICD10: I10 - Controlled - Continue current medications 3. Bradyarrhythmia - ICD9: 427.89, ICD10: I49.8 Improved. 4. Coronary artery disease of [place] artery of [place] heart with stable angina pectoris - ICD9: 414.01, 413.9, ICD10: I25.118 Stable. - METOPROLOL TARTRATE 25 MG TABLET. Continue 12.5 mg BID. 5. Parkinson's disease, unspecified whether dyskinesia present, unspecified whether manifestations fluctuate (HCC) - ICD9: 332.0, ICD10: G20.A1 - We discussed dysautonomia and precautions that might help. - CARBIDOPA ER 50 MG-LEVODOPA 200 MG TABLET,EXTENDED RELEASE - We clarified his regimen. Brandon Cantor MD documented in this encounter [facility] 09-27-2024 Note HNO ID: [id number] Author: INOCENCIA KELLEY Tech Service: ? Author Type: Technologist Type: Progress Notes Filed: 09/27/2024 14:38 Note Text: Radiology Service Progress Note PATIENT NAME: Rohan Olivia Jr. DATE OF SERVICE: September 27, 2024 TIME: 2:28 PM PATIENT IDENTITY VERIFICATION COMPLETED USING TWO (2) IDENTIFIERS: Name and Date of confirmed by patient verbally. FALL SCREENING: Has the patient had 2 falls in the last year or 1 fall with injury or currently using an Ambulatory Assistive Device (Walker, Cane, Wheelchair, Crutches, etc.)? Yes, Patient High Risk for Falls What interventions were put in place to prevent falls during this visit? Instructed Patient to Remain Seated (Not on Exam Table) Until Exam and Increased Observations by Caregivers PATIENT GENDER DATA: Assigned male at PATIENT RELEVANT IMPLANT DATA REVIEWED: Not Applicable PATIENT PRESENTS WITH AN IMPLANTABLE OR ATTACHED OFFICE AGENT: No RADIOLOGY DEPARTMENT: General X-ray: Exam(s) Completed: Chest X-Ray PERIPHERAL IV DATA: Not applicable SIGNED BY: Yesika Tapia September 27, 2024 2:28 PM [facility] 09-20-2024 Telephone encounter Note That is okay. He can do xray at a later time. [facility] 09-20-2024 Miscellaneous Notes That is okay. He can do xray at a later time. Patient calls and states that he currently is wearing heart monitor. Patient is currently at Dr. Phan's office for his knee. Dr. Phan is wanting to do an x ray on knee however patient is unsure he should do this because of wearing a heart monitor. Patient is asking if he can get x ray done wearing heart monitor. Patient is postponing x ray until he gets monitor off. Katelin Chew RN documented in this encounter [facility] 09-20-2024 Telephone encounter Note Patient calls and states that he currently is wearing heart monitor. Patient is currently at Dr. Phan's office for his knee. Dr. Phan is wanting to do an x ray on knee however patient is unsure he should do this because of wearing a heart monitor. Patient is asking if he can get x ray done wearing heart monitor. Patient is postponing x ray until he gets monitor off. Katelin Chew RN [facility] 09-12-2024 Note HNO ID: [id number] Author: RENEA CARABALLO LPN Service: ? Author Type: LICENSED NURSE Type: Progress Notes Filed: 09/13/2024 08:50 Note Text: EVENT MONITOR DISPOSABLE PATCH INSTRUCTIONS Patient Name: Rohan Olivia Jr. Clinic Number: [id number] Skin prepped and cleansed with alcohol Patch secured to prepped area Monitor Activated Serial #: [id number] Patient Instructed: Prescribed order timeframe Bathing guidelines Usage of event button and diary documentation Return of monitor at the end of prescribed order Call with problems [phone] or [phone]. [phone] Patient expresses a good understanding of instructions Renea Caraballo LPN [facility] 09-12-2024 History of Presen t illness Narrative EVENT MONITOR DISPOSABLE PATCH INSTRUCTIONS Patient Name: Rohan Olivia Jr. Clinic Number: [id number] Skin prepped and cleansed with alcohol Patch secured to prepped area Monitor Activated Serial #: [id number] Patient Instructed: Prescribed order timeframe Bathing guidelines Usage of event button and diary documentation Return of monitor at the end of prescribed order Call with problems [phone] or [phone]. [phone] Patient expresses a good understanding of instructions Renea Caraballo LPN Called [facility] to check out of pocket cost for the zio. Reference number is [id number] and they report pt's out of pocket cost is 525$ This note was created using Textádoriter. Subjective Patient presents with: ER F/U Rohan Olivia Jr. is a 79 year old male here with spouse. He started having more frequent episodes of dizziness, lightheadedness, and near syncope for several weeks. These were transient, and for the most part, not positional. He went to the ER 09/10/24 due to increased symptoms and a feeling of heat in the head. He was found to be orthostatic and bradycardic. Work up was notable for some increase in azotemia, bradycardia. Abnormal chest X-ray was not discussed with him and he as he had no symptoms of respiratory infection. It was recommended he reduce metoprolol and have a holter monitor. He had not yet reduced his metoprolol dose. Review of Systems Constitutional: Negative for chills and fever. HENT: Negative for congestion and sore throat. Eyes: Negative for visual disturbance. Respiratory: Negative for cough, shortness of breath and wheezing. Cardiovascular: Negative for chest pain, palpitations and leg swelling. Gastrointestinal: Negative for diarrhea, nausea and vomiting. Neurological: Negative for syncope, weakness and headaches. 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 Parkinson's Disease (Hcc) Vasomotor Rhinitis Platelets Decreased Stage 3a Chronic Kidney Disease (Hcc) History of Renal Cell Cancer Social History Tobacco Use Smoking status: Former Current packs/day: 0.00 Average packs/day: 2.0 packs/day for 35.0 years (70.0 ttl pk-yrs) Types: Cigarettes Start date: 1964 Quit date: 07/05/1998 Years since quittin.2 Smokeless tobacco: Never Vaping Use Vaping status: Never Used Substance Use Topics Alcohol use: No Drug use: No Current Outpatient Medications Medication Sig carbidopa-levodopa CR (SINEMET CR) 50-200 mg per tablet Take 1 tab at 8AM and 1 tab at 9PM nightly. carbidopa-levodopa (SINEMET) 25-100 mg per tablet Take 2 tablets at 8AM, Noon and 4PM. methIMAzole (TAPAZOLE) 5 mg tablet Take 1 tablet by mouth once daily. LORazepam (ATIVAN) 1 mg tablet Take 1 tablet by mouth at bedtime as needed for anxiety for up to 90 days. potassium chloride SR (MICRO-K) 10 mEq CR capsule Take 1 capsule by mouth two times a day. ipratropium bromide (ATROVENT) 42 mcg (0.06 %) nasal spray Use 2 Sprays in the nose as needed. aspirin 81 mg cap Take 81 mg by mouth once daily. pantoprazole DR (PROTONIX) 40 mg tablet Take 40 mg by mouth once daily. cholestyramine/aspartame (CHOLESTYRAMINE LIGHT ORAL) Take by mouth once daily. isosorbide mononitrate ER (IMDUR) 30 mg 24 hr tablet Take 1 tablet by mouth once daily. metoprolol tartrate, short acting, (LOPRESSOR) 25 mg tablet Take 1 tablet by mouth two times a day. atorvastatin (LIPITOR) 20 mg tablet Take 1 tablet by mouth daily at bedtime. For cholesterol. PARoxetine (PAXIL) 20 mg tablet Take 1 tablet by mouth once daily. ketoconazole (NIZORAL) 2 % shampoo Apply to affected area two times a week. Per [facility]. PRN tamsulosin (FLOMAX) 0.4 mg Take 0.4 mg by mouth once daily. No current facility-administered medications for this visit. Objective BP (!) 87/49 Pulse (!) 48 Temp 36.9 C (98.5 F) (Temporal) Wt 84.8 kg (186 lb 15.2 oz) BMI 27.61 kg/m 09/12/24 1450 09/12/24 1454 09/12/24 1456 09/12/24 1457 BP: 90/53 (!) 87/49 Pulse: 60 (!) 48 Temp: 36.9 C (98.5 F) TempSrc: Temporal Weight: 84.8 kg (186 lb 15.2 oz) Orthostatic BP: 124/57 90/53 BP Position: Supine Standing Orthostatic Pulse: 45 60 Physical Exam Constitutional: General: He is not in acute distress. Appearance: He is not diaphoretic. HENT: Head: Atraumatic. Nose: No congestion or rhinorrhea. Mouth/Throat: Mouth: Mucous membranes are moist. Pharynx: Oropharynx is clear. Eyes: Conjunctiva/sclera: Conjunctivae normal. Cardiovascular: Rate and Rhythm: Regular rhythm. Bradycardia present. Heart sounds: No murmur heard. No gallop. Pulmonary: Effort: No respiratory distress. Breath sounds: No wheezing, rhonchi or rales. Abdominal: Palpations: Abdomen is soft. Tenderness: There is no abdominal tenderness. Musculoskeletal: Right lower leg: No edema. Left lower leg: No edema. Neurological: General: No focal deficit present. Mental Status: He is alert and oriented to person, place, and time. Cranial Nerves: No dysarthria. Sensory: No sensory deficit. Motor: Tremor and abnormal muscle tone present. Coordination: Coordination normal. Gait: Gait abnormal. Comments: Ambulatory with walker. EKG RESULTS: sinus bradycardia Assessment and Plan 1. Dizziness - ICD9: 780.4, ICD10: R42 (primary diagnosis) Multifactorial. See #4. 2. Near syncope - ICD9: 780.2, ICD10: R55 - OUTSIDE VENDOR CARDIAC OUTPATIENT EXTENDED RHYTHM RECORDING (WITHOUT TELEMETRY) 3. Bradycardia - ICD9: 427.89, ICD10: R00.1 - OUTSIDE VENDOR CARDIAC OUTPATIENT EXTENDED RHYTHM RECORDING (WITHOUT TELEMETRY) 4. Orthostatic hypotension - ICD9: 458.0, ICD10: I95.1 Medication. Parkinsonism. Dysautonomia. 5. Stage 3a chronic kidney disease (HCC) - ICD9: 585.3, ICD10: N18.31 - eGFR: 55 Worsening - Hydration stressed. - BASIC METABOLIC PANEL 6. Abnormal CXR - ICD9: 793.2, ICD10: R93.89 Clinical significance not clear. - XR CHEST 2V FRONTAL/LAT Brandon Cantor MD documented in this encounter [facility] 09-12-2024 Note HNO ID: [id number] Author: EUGENIA DOUGLAS LPN Service: ? Author Type: LICENSED NURSE Type: Progress Notes Filed: 09/13/2024 08:50 Note Text: Called [employer] to check out of pocket cost for the zio. Reference number is [id number] and they report pt's out of pocket cost is 525$ [facility] 09-12-2024 Instructions Brandon Cantor MD - 09/12/2024 3:41 PM EDT CONTINUE MEDICATIONS FOR NOW. INCREASE FLUID INTAKE. BLOOD WORK AND CHEST XRAY IN 4 WEEKS. documented in this encounter [facility] 09-12-2024 Note HNO ID: [id number] Author: BRANDON CANTOR MD Service: ? Author Type: Physician Type: Progress Notes Filed: 09/13/2024 08:50 Note Text: This note was created using Textádoriter. Subjective Patient presents with: ER F/U Rohan Olivia Jr. is a 79 year old male here with spouse. He started having more frequent episodes of dizziness, lightheadedness, and near syncope for several weeks. These were transient, and for the most part, not positional. He went to the ER 09/10/24 due to increased symptoms and a feeling of heat in the head. He was found to be orthostatic and bradycardic. Work up was notable for some increase in azotemia, bradycardia. Abnormal chest X-ray was not discussed with him and he as he had no symptoms of respiratory infection. It was recommended he reduce metoprolol and have a holter monitor. He had not yet reduced his metoprolol dose. Review of Systems Constitutional: Negative for chills and fever. HENT: Negative for congestion and sore throat. Eyes: Negative for visual disturbance. Respiratory: Negative for cough, shortness of breath and wheezing. Cardiovascular: Negative for chest pain, palpitations and leg swelling. Gastrointestinal: Negative for diarrhea, nausea and vomiting. Neurological: Negative for syncope, weakness and headaches. 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 Parkinson's Disease (Hcc) Vasomotor Rhinitis Platelets Decreased Stage 3a Chronic Kidney Disease (Hcc) History of Renal Cell Cancer Social History Tobacco Use Smoking status: Former Current packs/day: 0.00 Average packs/day: 2.0 packs/day for 35.0 years (70.0 ttl pk-yrs) Types: Cigarettes Start date: 1964 Quit date: 07/05/1998 Years since quittin.2 Smokeless tobacco: Never Vaping Use Vaping status: Never Used Substance Use Topics Alcohol use: No Drug use: No Current Outpatient Medications Medication Sig carbidopa-levodopa CR (SINEMET CR) 50-200 mg per tablet Take 1 tab at 8AM and 1 tab at 9PM nightly. carbidopa-levodopa (SINEMET) 25-100 mg per tablet Take 2 tablets at 8AM, Noon and 4PM. methIMAzole (TAPAZOLE) 5 mg tablet Take 1 tablet by mouth once daily. LORazepam (ATIVAN) 1 mg tablet Take 1 tablet by mouth at bedtime as needed for anxiety for up to 90 days. potassium chloride SR (MICRO-K) 10 mEq CR capsule Take 1 capsule by mouth two times a day. ipratropium bromide (ATROVENT) 42 mcg (0.06 %) nasal spray Use 2 Sprays in the nose as needed. aspirin 81 mg cap Take 81 mg by mouth once daily. pantoprazole DR (PROTONIX) 40 mg tablet Take 40 mg by mouth once daily. cholestyramine/aspartame (CHOLESTYRAMINE LIGHT ORAL) Take by mouth once daily. isosorbide mononitrate ER (IMDUR) 30 mg 24 hr tablet Take 1 tablet by mouth once daily. metoprolol tartrate, short acting, (LOPRESSOR) 25 mg tablet Take 1 tablet by mouth two times a day. atorvastatin (LIPITOR) 20 mg tablet Take 1 tablet by mouth daily at bedtime. For cholesterol. PARoxetine (PAXIL) 20 mg tablet Take 1 tablet by mouth once daily. ketoconazole (NIZORAL) 2 % shampoo Apply to affected area two times a week. Per [facility]. PRN tamsulosin (FLOMAX) 0.4 mg Take 0.4 mg by mouth once daily. No current facility-administered medications for this visit. Objective BP (!) 87/49 Pulse (!) 48 Temp 36.9 ?C (98.5 ?F) (Temporal) Wt 84.8 kg (186 lb 15.2 oz) BMI 27.61 kg/m? 04/10/25 1450 09/12/24 1454 09/12/24 1456 09/12/24 1457 BP: 90/53 (!) 87/49 Pulse: 60 (!) 48 Temp: 36.9 ?C (98.5 ?F) TempSrc: Temporal Weight: 84.8 kg (186 lb 15.2 oz) Orthostatic BP: 124/57 90/53 BP Position: Supine Standing Orthostatic Pulse: 45 60 Physical Exam Constitutional: General: He is not in acute distress. Appearance: He is not diaphoretic. HENT: Head: Atraumatic. Nose: No congestion or rhinorrhea. Mouth/Throat: Mouth: Mucous membranes are moist. Pharynx: Oropharynx is clear. Eyes: Conjunctiva/sclera: Conjunctivae normal. Cardiovascular: Rate and Rhythm: Regular rhythm. Bradycardia present. Heart sounds: No murmur heard. No gallop. Pulmonary: Effort: No respiratory distress. Breath sounds: No wheezing, rhonchi or rales. Abdominal: Palpations: Abdomen is soft. Tenderness: There is no abdominal tenderness. Musculoskeletal: Right lower leg: No edema. Left lower leg: No edema. Neurological: General: No focal deficit present. Mental Status: He is alert and oriented to person, place, and time. Cranial Nerves: No dysarthria. Sensory: No sensory deficit. Mo (more content not included)... [facility] 09-12-2024 Note HNO ID: [id number] Author: DOUGLAS MORTENSEN MD Service: ? Author Type: Physician Type: Procedures Filed: 10/03/2024 17:19 Note Text: Patient Name: Rohan Olivia : 1945 Ordering Provider: Brandon Cantor Indication: R55 Syncope and collapse Type of Monitor: Extended Monitoring-Zio Patch Enrollment Dates: 09/12/2024-09/26/2024 IRHYTHM FINDINGS: Patient had a min HR of 35 bpm, max HR of 117 bpm, and avg HR of 56 bpm. Predominant underlying rhythm was Sinus Rhythm. Slight P wave morphology changes were noted. 1 run of Supraventricular Tachycardia occurred lasting 5 beats with a max rate of 117 bpm (avg 103 bpm). Junctional Rhythm was present. Junctional Rhythm was detected within +/- 45 seconds of symptomatic patient event(s). Isolated SVEs were rare (<1.0%), SVE Couplets were rare (<1.0%), and SVE Triplets were rare (<1.0%). Isolated VEs were rare (<1.0%), VE Couplets were rare (<1.0%), and no VE Triplets were present. Ventricular Bigeminy was present. [facility] 09-12-2024 Note HNO ID: [id number] Author: DEBRA CASTREJON, ? Service: ? Author Type: Physician Type: Progress Notes Filed: 09/12/2024 14:17 Note Text: Subjective: Patient presents to clinic c/o painful toenails. They state that the nails are especially painful with shoe gear and pressure. Patient states that nails 1-5 b/l are painful. No other pedal complaints at this time. Patient states no change in medications or medical history since last visit. Objective: Patient presents to clinic ambulating in [facility] Vasc: DP and PT pulses are palpable bilateral. CFT is less than 5 seconds bilateral. Skin temperature is warm to cool proximal to distal bilateral. There is mild edema or varicosities noted. Neuro: Protective sensation is absent to the foot and toes when tested with the 5.07 SWM bilateral. Vibratory sensation is absent at the hallux IPJ bilateral. The hallux is downgoing bilateral. Derm: Nails 1-5 b/l are discolored-yellow, thick, crumbly, dystrophic and with subungal debris. Skin is of normal turgor, texture and hair growth is decreased bilateral. There are callus to right 5th metatarsal. No ulceration Ortho: Muscle strength is 5/5 for all pedal groups tested. Ankle joint DF is decreased with the knee extended with no pain or crepitus noted. 1st MPJ ROM is decreased bilateral. Assessment: (B35.1) Onychomycosis (primary encounter diagnosis) (M79.675) Pain in toe of left foot (M79.674) Pain in toe of right foot (L84) Callus of foot Plan: Patient was seen and evaluated. Nails 1-5 bilateral were debrided in length and thickness. Callus reduced to right 5th metatarsal with dremmel Patient is to RTC in 3-4 months. Debra Castrejon DPM [facility] 09-12-2024 History of Presen t illness Narrative Subjective: Patient presents to clinic c/o painful toenails. They state that the nails are especially painful with shoe gear and pressure. Patient states that nails 1-5 b/l are painful. No other pedal complaints at this time. Patient states no change in medications or medical history since last visit. Objective: Patient presents to clinic ambulating in [facility] Vasc: DP and PT pulses are palpable bilateral. CFT is less than 5 seconds bilateral. Skin temperature is warm to cool proximal to distal bilateral. There is mild edema or varicosities noted. Neuro: Protective sensation is absent to the foot and toes when tested with the 5.07 SWM bilateral. Vibratory sensation is absent at the hallux IPJ bilateral. The hallux is downgoing bilateral. Derm: Nails 1-5 b/l are discolored-yellow, thick, crumbly, dystrophic and with subungal debris. Skin is of normal turgor, texture and hair growth is decreased bilateral. There are callus to right 5th metatarsal. No ulceration Ortho: Muscle strength is 5/5 for all pedal groups tested. Ankle joint DF is decreased with the knee extended with no pain or crepitus noted. 1st MPJ ROM is decreased bilateral. Assessment: (B35.1) Onychomycosis (primary encounter diagnosis) (M79.675) Pain in toe of left foot (M79.674) Pain in toe of right foot (L84) Callus of foot Plan: Patient was seen and evaluated. Nails 1-5 bilateral were debrided in length and thickness. Callus reduced to right 5th metatarsal with dremmel Patient is to RTC in 3-4 months. Debra Castrejon DPM AMB ROOMING INTAKE FLOWSHEET DATA Pain Pain Level: 1 Pain Location: Other: See Comment (bilateral feet) Description: Sore Frequency: Intermittent Intervention/Comfort measure: Relaxation, Reposition Patient presents with: Left Foot - Established Patient, Follow Up, nail care Right Foot - Established Patient, Follow Up, nail care Susana Gonsalez LPN documented in this encounter [facility] 09-12-2024 Note HNO ID: [id number] Author: SUSANA GONSALEZ LPN Service: ? Author Type: LICENSED NURSE Type: Progress Notes Filed: 09/12/2024 14:17 Note Text: AMB ROOMING INTAKE FLOWSHEET DATA Pain Pain Level: 1 Pain Location: Other: See Comment (bilateral feet) Description: Sore Frequency: Intermittent Intervention/Comfort measure: Relaxation, Reposition Patient presents with: Left Foot - Established Patient, Follow Up, nail care Right Foot - Established Patient, Follow Up, nail care Susana Gonsalez LPN [facility] 09-11-2024 Telephone encounter Note Noted. [facility] 09-11-2024 Miscellaneous Notes Noted. Patient calling he has been having dizziness and feeling faint lately. He said about 4 times weekly he feels like he could faint, he is not skipping any meals. He does not check his blood pressure at home. He does not drive any longer since he has parkinson's. Advised patient with him feeling faint would have his take him to the ER for evaluation. Patient said he would have take him to ER. Aware sending note to his PCP. documented in this encounter [facility] 09-10-2024 Radiology Diagnostic study note [facility] Imaging Services [address] [place], [place] [id number] Chest 1 View (Portable) MR#: [id number] Acct: [id number] Name: ROHAN OLIVIA Rep #: [id number] : 1945 M 79 From: Nadine Jones DO PCP: Dr. Brandon Cantor MD Status: P RE ER Study:Chest 1 View (Portable) Date of Exam: 09/10/24 Exam# [id number] Ordering Dr: Meghan Fierro DO PROCEDURE: Portable upright chest radiograph, two views 09/10/2024 REASON FOR EXAM: NEAR SYNCOPE TECHNIQUE: Portable upright chest radiograph, two views COMPARISON: None available FINDINGS: The bones are osteopenic, grossly intact. Monitoring leads overlie the chest. No pneumothorax or pulmonary vascular congestion. 5 mm calcified granuloma projects over the medial left upper lobe. There are some abnormal patchy opacities projecting over the mid to lower lungs bilaterally, greatest on the left. No sizable pleural effusion. RAD/Chest 1 View (Portable) IMPRESSION: Patchy opacities project over the mid to lower lungs bilaterally, which could bedue to areas of pneumonia or pulmonary edema. No sizable pleural effusion. Recommend continued radiologic follow-up to document resolution. Reading Location: [facility] CC: Dr. Jose Armando Fierro DO; Dr. Brandon Cantor MD ~ Fruit Checker: Signed [facility] 09-10-2024 Telephone encounter Note Patient calling he has been having dizziness and feeling faint lately. He said about 4 times weekly he feels like he could faint, he is not skipping any meals. He does not check his blood pressure at home. He does not drive any longer since he has parkinson's. Advised patient with him feeling faint would have his take him to the ER for evaluation. Patient said he would have take him to ER. Aware sending note to his PCP. [facility] 08-16-2024 Note HNO ID: [id number] Author: CHRIS PEARSON JR, MD Service: ? Author Type: Physician Type: Progress Notes Filed: 08/16/2024 12:56 Note Text: ESTABLISHED PATIENT VISIT CHIEF COMPLAINT: Follow Up HISTORY OF PRESENT ILLNESS: Rohan Olivia Jr. is a 79 year old male, BMI 27.85 kg/m2 with a PMH significant for and per last visit of 05/13/24: 1. Parkinson's disease, unspecified whether dyskinesia present, unspecified whether manifestations fluctuate (HCC) - ICD9: 332.0, ICD10: G20.A1 (primary diagnosis) 2. Abnormality of gait - ICD9: 781.2, ICD10: R26.9 Patient with prior dx of Parkinson's disease, and agree with dx after obtaining history and examination. However, symptoms poorly controlled at this time due to scheduling of medication. Patient currently only taking Sinemet in AM and then not again until bedtime. Note pt does best during the AM hours. D/w pt and his who accompanied pt, etiology, physiology, treatment and prognosis of PD. They understand this is a clinical dx. They understand the need to take medications as scheduled. They understand the benefits of activity and exercise in slowing the progression of disease. After reviewing prior treatment and response to meds, plan as follows: CARBIDOPA-LEVODOPA 25/100mg Take 1.5 tablets at 8AM, Noon and 4PM. CARBIDOPA-LEVODOPA CR 50/200mg Take 1 tablet at 9PM. States has been doing PT at [facility] and they feel quite a bit of improvement. Taking meds as above. Note we are 4 hours out from time of last dosing. Perhaps an on-off effect but pt thinks minimal. States 2 biggest problems are feeling like feet stuck to floor and other is sense of balance being off at times. No time of day worse than others. States he has had some ankle pain (following with ortho) which does limit the amount of exercise he could do during the interim. No falls. Now taking part in the STOP the disease program. REVIEW OF SYSTEMS GENERAL:No weight loss, malaise or fevers. HEENT:Negative for frequent or significant headaches, No changes in hearing or vision, no nose bleeds or other nasal problems NECK:Negative for lumps, goiter, pain and significant neck swelling RESPIRATORY: Negative for cough, wheezing or shortness of breath. CARDIOVASCULAR: Negative for chest pain, leg swelling or palpitations. GASTROINTESTINAL: Negative for abdominal discomfort, blood in stools or black stools or change in bowel habits GENITOURINARY: No history of dysuria, frequency or incontinence MUSCULOSKELETAL: See HPI. NEUROLOGIC:See HPI. LAB/IMAGING: Those performed since patient's last visit have been reviewed. WBC (k/uL) Date Value 05/18/2024 6.26 RBC (m/uL) Date Value 05/18/2024 5.26 Hemoglobin (g/dL) Date Value 05/18/2024 16.4 Hematocrit (%) Date Value 05/18/2024 49.4 MCV (fL) Date Value 05/18/2024 93.9 MCH (pg) Date Value 05/18/2024 31.2 MCHC (g/dL) Date Value 05/18/2024 33.2 RDW-CV (%) Date Value 05/18/2024 14.0 Platelet Count (k/uL) Date Value 05/18/2024 92 (L) MPV (fL) Date Value 05/18/2024 12.1 Glucose (mg/dL) Date Value 05/18/2024 88 BUN (mg/dL) Date Value 05/18/2024 18 Creatinine (mg/dL) Date Value 05/18/2024 1.33 (H) Sodium (mmol/L) Date Value 05/18/2024 140 Potassium (mmol/L) Date Value 05/18/2024 4.2 Chloride (mmol/L) Date Value 05/18/2024 104 CO2 (mmol/L) Date Value 05/18/2024 25 Protein, Total (g/dL) Date Value 05/18/2024 6.6 Albumin (g/dL) Date Value 05/18/2024 4.1 Calcium, Total (mg/dL) Date Value 05/18/2024 9.5 Alkaline Phosphatase (U/L) Date Value 05/18/2024 105 Bilirubin, Total (mg/dL) Date Value 05/18/2024 1.0 AST (U/L) Date Value 05/18/2024 16 ALT (U/L) Date Value 05/18/2024 6 (L) Hep C Antibody IA (no units) Date Value 10/03/2014 Negative MEDICATIONS: methIMAzole (TAPAZOLE) 5 mg tablet Take 1 tablet by mouth once daily. LORazepam (ATIVAN) 1 mg tablet Take 1 tablet by mouth at bedtime as needed for anxiety for up to 90 days. potassium chloride SR (MICRO-K) 10 mEq CR capsule Take 1 capsule by mouth two times a day. ipratropium bromide (ATROVENT) 42 mcg (0.06 %) nasal spray Use 2 Sprays in the nose as needed. aspirin 81 mg cap Take 81 mg by mouth once daily. cholestyramine/aspartame (CHOLESTYRAMINE LIGHT ORAL) Take by mouth once daily. carbidopa-levodopa (SINEMET) 25-100 mg per tablet Take 1.5 tablets at 8AM, Noon and 4PM. carbidopa-levodopa CR (SINEMET CR) 50-200 mg per tablet Take at 9PM nightly. isosorbide mononitrate ER (IMDUR) 30 mg 24 hr tablet Take 1 tablet by mouth once daily. metoprolol tartrate, short acting, (LOPRESSOR) 25 mg tablet Take 1 tablet by mouth two times a day. atorvastatin (LIPITOR) 20 mg tablet Take 1 tablet by mouth daily at bedtime. For cholesterol. PARoxetine (PAXIL) 20 mg tablet Take 1 tablet by mouth once daily. ketoconazole (NIZORAL) 2 % shampoo Apply to affected area two ti (more content not included)... [facility] 08-16-2024 History of Presen t illness Narrative ESTABLISHED PATIENT VISIT CHIEF COMPLAINT: Follow Up HISTORY OF PRESENT ILLNESS: Rohan Olivia Jr. is a 79 year old male, BMI 27.85 kg/m2 with a PMH significant for and per last visit of 05/13/24: 1. Parkinson's disease, unspecified whether dyskinesia present, unspecified whether manifestations fluctuate (HCC) - ICD9: 332.0, ICD10: G20.A1 (primary diagnosis) 2. Abnormality of gait - ICD9: 781.2, ICD10: R26.9 Patient with prior dx of Parkinson's disease, and agree with dx after obtaining history and examination. However, symptoms poorly controlled at this time due to scheduling of medication. Patient currently only taking Sinemet in AM and then not again until bedtime. Note pt does best during the AM hours. D/w pt and his who accompanied pt, etiology, physiology, treatment and prognosis of PD. They understand this is a clinical dx. They understand the need to take medications as scheduled. They understand the benefits of activity and exercise in slowing the progression of disease. After reviewing prior treatment and response to meds, plan as follows: CARBIDOPA-LEVODOPA 25/100mg Take 1.5 tablets at 8AM, Noon and 4PM. CARBIDOPA-LEVODOPA CR 50/200mg Take 1 tablet at 9PM. States has been doing PT at [facility] and they feel quite a bit of improvement. Taking meds as above. Note we are 4 hours out from time of last dosing. Perhaps an on-off effect but pt thinks minimal. States 2 biggest problems are feeling like feet stuck to floor and other is sense of balance being off at times. No time of day worse than others. States he has had some ankle pain (following with ortho) which does limit the amount of exercise he could do during the interim. No falls. Now taking part in the STOP the disease program. REVIEW OF SYSTEMS GENERAL:No weight loss, malaise or fevers. HEENT:Negative for frequent or significant headaches, No changes in hearing or vision, no nose bleeds or other nasal problems NECK:Negative for lumps, goiter, pain and significant neck swelling RESPIRATORY: Negative for cough, wheezing or shortness of breath. CARDIOVASCULAR: Negative for chest pain, leg swelling or palpitations. GASTROINTESTINAL: Negative for abdominal discomfort, blood in stools or black stools or change in bowel habits GENITOURINARY: No history of dysuria, frequency or incontinence MUSCULOSKELETAL: See HPI. NEUROLOGIC:See HPI. LAB/IMAGING: Those performed since patient's last visit have been reviewed. WBC (k/uL) Date Value 05/18/2024 6.26 RBC (m/uL) Date Value 05/18/2024 5.26 Hemoglobin (g/dL) Date Value 05/18/2024 16.4 Hematocrit (%) Date Value 05/18/2024 49.4 MCV (fL) Date Value 05/18/2024 93.9 MCH (pg) Date Value 05/18/2024 31.2 MCHC (g/dL) Date Value 05/18/2024 33.2 RDW-CV (%) Date Value 05/18/2024 14.0 Platelet Count (k/uL) Date Value 05/18/2024 92 (L) MPV (fL) Date Value 05/18/2024 12.1 Glucose (mg/dL) Date Value 05/18/2024 88 BUN (mg/dL) Date Value 05/18/2024 18 Creatinine (mg/dL) Date Value 05/18/2024 1.33 (H) Sodium (mmol/L) Date Value 05/18/2024 140 Potassium (mmol/L) Date Value 05/18/2024 4.2 Chloride (mmol/L) Date Value 05/18/2024 104 CO2 (mmol/L) Date Value 05/18/2024 25 Protein, Total (g/dL) Date Value 05/18/2024 6.6 Albumin (g/dL) Date Value 05/18/2024 4.1 Calcium, Total (mg/dL) Date Value 05/18/2024 9.5 Alkaline Phosphatase (U/L) Date Value 05/18/2024 105 Bilirubin, Total (mg/dL) Date Value 05/18/2024 1.0 AST (U/L) Date Value 05/18/2024 16 ALT (U/L) Date Value 05/18/2024 6 (L) Hep C Antibody IA (no units) Date Value 10/03/2014 Negative MEDICATIONS: methIMAzole (TAPAZOLE) 5 mg tablet Take 1 tablet by mouth once daily. LORazepam (ATIVAN) 1 mg tablet Take 1 tablet by mouth at bedtime as needed for anxiety for up to 90 days. potassium chloride SR (MICRO-K) 10 mEq CR capsule Take 1 capsule by mouth two times a day. ipratropium bromide (ATROVENT) 42 mcg (0.06 %) nasal spray Use 2 Sprays in the nose as needed. aspirin 81 mg cap Take 81 mg by mouth once daily. cholestyramine/aspartame (CHOLESTYRAMINE LIGHT ORAL) Take by mouth once daily. carbidopa-levodopa (SINEMET) 25-100 mg per tablet Take 1.5 tablets at 8AM, Noon and 4PM. carbidopa-levodopa CR (SINEMET CR) 50-200 mg per tablet Take at 9PM nightly. isosorbide mononitrate ER (IMDUR) 30 mg 24 hr tablet Take 1 tablet by mouth once daily. metoprolol tartrate, short acting, (LOPRESSOR) 25 mg tablet Take 1 tablet by mouth two times a day. atorvastatin (LIPITOR) 20 mg tablet Take 1 tablet by mouth daily at bedtime. For cholesterol. PARoxetine (PAXIL) 20 mg tablet Take 1 tablet by mouth once daily. ketoconazole (NIZORAL) 2 % shampoo Apply to affected area two times a week. Per [facility]. PRN tamsulosin (FLOMAX) 0.4 mg Take 0.4 mg by mouth once daily. pantoprazole DR (PROTONIX) 40 mg tablet Take 40 mg by mouth once daily. 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 Cath [facility] 08/20/2020. Other pulmonary embolism with acute cor pulmonale (HCC) 01/30/2018 fall, right hip fracture, right total hip Other pulmonary embolism with acute cor pulmonale (HCC) Panic attacks 2001 previously on Xanax Parkinson's disease (HCC) 11/17/2021 Pulmonary hypertension (HCC) 01/30/2018 Renal cell cancer, left (HCC) 05/05/2022 Seborrheic keratosis 06/19/2009 Stage 3a chronic kidney disease (HCC) 05/19/2023 Thyrotoxicosis without thyroid storm 11/17/2021 FAMILY HISTORY Problem Relation Age of Onset Psychiatry Mother Anxiety COPD Mother Heart Mother Heart failure, age 94 other (Other) Mother Parkinson's Cancer Father lung cancer, age 86 Psychiatry Sister Panic attacks Emphysema Maternal Grandfather 50 years working on [employer], coal smoke inhalation. Asthma Maternal Grandfather Colon Cancer Other Maternal 1st cousin age 40s SOCIAL HISTORY Social History Tobacco Use Smoking status: Former Current packs/day: 0.00 Average packs/day: 2.0 packs/day for 35.0 years (70.0 ttl pk-yrs) Types: Cigarettes Start date: 1964 Quit date: 07/05/1998 Years since quittin.1 Smokeless tobacco: Never Vaping Use Vaping status: Never Used Substance Use Topics Alcohol use: No Drug use: No PHYSICAL EXAMINATION BP 120/62 (BP Site: Left Arm, BP Position: Sitting) Pulse (!) 58 Resp 16 Wt 85.5 kg (188 lb 9.6 oz) SpO2 96% BMI 27.85 kg/m GENERAL EXAM: General appearance: NAD, pleasant. HEENT: NC/AT, nasal congestion absent Lungs: CTA bilaterally. CV: RRR nl S1, S2 Extr: No cyanosis, clubbing or edema. NEUROLOGICAL EXAM: General: Awake, alert, oriented x3 (person,place,time), speech fluent, no dysarthria; comprehension, naming, repetition intact. Voice louder today. Mild masked facies. CN: PERRL, EOMI and without nystagmus, VFF to confrontation, facial sensation and strength are normal and symmetric, hearing is intact, palate and tongue movements are intact and symmetric. SCM and trapezius strength normal. Motor: Normal and strength (5/5) bilaterally (throughout extremities x4). Tone increased in RUE but nml in LUE. Reflexes: 2/4 and symmetric, plantar stimulation is flexor. Coordination: FNF, WILLIE remain impaired, HTS intact. Resting tremor bean UE R>L Sensation: Light touch intact throughout. No evidence of neglect. Gait: No issues rising from chair without use of UEs. Stooped posture. Decreased stride but improved, turns 180 degrees in 6 steps. Decreased arm swing bean. Mild retropulsion on pull testing. (Note 4 hours since last Sinemet taken.) Assessment and Plan: ASSESSMENT/PLAN: 1. Parkinson's disease, unspecified whether dyskinesia present, unspecified whether manifestations fluctuate (HCC) - ICD9: 332.0, ICD10: G20.A1 (primary diagnosis) 2. Abnormality of gait - ICD9: 781.2, ICD10: R26.9 Overall showing improvement since we adjusted med dosing. However, somewhat difficult to assess effectiveness of Sinemet given pt took last dose 4 hours prior to evaluation. That said, do feel room for further improvement and patient agrees. He is continuing in therapy as above. Will increase Sinemet 25/100mg to CARBIDOPA-LEVODOPA 25/100mg Increase to 2 tablets at 8AM, Noon and 4PM. In addition, to avoid significant drops in dopamine levels and thus, off effect, will increase Sinemet CR 50/200mg dosing so that pt now takes twice daily. CARBIDOPA-LEVODOPA CR 50/200mg Take 1 tablet at 8AM (with short acting Carbidopa-Levodopa) and 1 tablet 9PM. Pt thus far has tolerated Sinemet without Side effects. No additional complaints. Follow up in 3 months or sooner prn. Chris Pearson MD I spent a total of 30+ minutes on the date of the service which included preparing to see the patient, [id number] patient care, completing clinical documentation, obtaining and/or reviewing separately obtained history, performing a medically appropriate examination, counseling and educating the patient/family/caregiver, ordering medications, tests, or procedures, and communicating results to the patient/family/caregiver. documented in this encounter [facility] 08-09-2024 Telephone encounter Note Patient has current script on file on [facility] will get this ready for patient. [facility] 08-09-2024 Miscellaneous Notes Patient has current script on file on [facility] will get this ready for patient. Prescription Refill Information The patient has been identified by name and date of : Yes Caregiver verified no other encounters exist for this prescription request: Yes Caregiver confirmed with patient/requestor that no other refills are due, in the near future, with this provider at this time: Yes The last office visit in the department: 05-17-24 Does the patient have a future office visit with this provider/department: Yes Requested Prescriptions Pending Prescriptions Disp Refills potassium chloride SR (MICRO-K) 10 mEq CR capsule 180 capsule 3 Sig: Take 1 capsule by mouth two times a day. Lisa Marin August 09, 2024 2:38 PM documented in this encounter [facility] 08-09-2024 Telephone encounter Note Prescription Refill Information The patient has been identified by name and date of : Yes Caregiver verified no other encounters exist for this prescription request: Yes Caregiver confirmed with patient/requestor that no other refills are due, in the near future, with this provider at this time: Yes The last office visit in the department: 05-17-24 Does the patient have a future office visit with this provider/department: Yes Requested Prescriptions Pending Prescriptions Disp Refills potassium chloride SR (MICRO-K) 10 mEq CR capsule 180 capsule 3 Sig: Take 1 capsule by mouth two times a day. Lisa Marin August 09, 2024 2:38 PM [facility] 07-30-2024 Telephone encounter Note Pt reports Dr. Murray used to prescribe this but Dr. Murray released pt from endocrinology stating pcp would be able to prescribe this medication to pt. Pt reports at last OV he and Dr. Singh talked about this. Prescription Refill Information The patient has been identified by name and date of : Yes Caregiver verified no other encounters exist for this prescription request: Yes Caregiver confirmed with patient/requestor that no other refills are due, in the near future, with this provider at this time: Yes The last office visit in the department: 05/17/24 Does the patient have a future office visit with this provider/department: Yes -11/15/24 Requested Prescriptions Pending Prescriptions Disp Refills methIMAzole (TAPAZOLE) 5 mg tablet 90 tablet 1 Sig: Take 1 tablet by mouth once daily. Jasmin Kaba LPN July 30, 2024 11:12 AM [facility] 07-30-2024 Miscellaneous Notes Pt reports Dr. Murray used to prescribe this but Dr. Murray released pt from endocrinology stating pcp would be able to prescribe this medication to pt. Pt reports at last OV he and Dr. Singh talked about this. Prescription Refill Information The patient has been identified by name and date of : Yes Caregiver verified no other encounters exist for this prescription request: Yes Caregiver confirmed with patient/requestor that no other refills are due, in the near future, with this provider at this time: Yes The last office visit in the department: 05/17/24 Does the patient have a future office visit with this provider/department: Yes -11/15/24 Requested Prescriptions Pending Prescriptions Disp Refills methIMAzole (TAPAZOLE) 5 mg tablet 90 tablet 1 Sig: Take 1 tablet by mouth once daily. Jasmin Kaba LPN July 30, 2024 11:12 AM documented in this encounter [facility] 06-17-2024 Evaluation note Diagnosis Onset Date Resolution Lumbar spondylosis acute 2024 1:11pm Parkinson's disease acute 2024 1:11pm Trochanteric bursitis of left hip acute June 17 1:11pm [facility] Work Phone: 1(755) 733-615201-10-2025 NoteHNO ID: [id number] Author: DEBRA CASTREJON, ? Service: ? Author Type: Physician Type: Progress Notes Filed: 06/14/2024 13:31 Note Text: Subjective: Patient presents to clinic c/o painful toenails. They state that the nails are especially painful with shoe gear and pressure. Patient states that nails 1-5 b/l are painful. Patient has callus to b/l feet that causes pain. No other pedal complaints at this time. Patient states no change in medications or medical history since last visit. Objective: Patient presents to clinic ambulating in sketchers Vasc: DP and PT pulses are nonpalpable bilateral. CFT is less than 5 seconds bilateral. Skin temperature is warm to cool proximal to distal bilateral. There is no edema or varicosities noted. Neuro: Protective sensation is intact to the foot and toes when tested with the 5.07 SWM bilateral. Vibratory sensation is absent at the hallux IPJ bilateral. The hallux is downgoing bilateral. Derm: Nails 1-5 b/l are painful, discolored-yellow, thick, crumbly, dystrophic and with subungal debris. Skin is of normal turgor, texture and hair growth is absent bilateral. There are callus to b/l 5th metatarsal. no ulcerations, scars, verruca or other lesions noted. Ortho: Muscle strength is 5/5 for all pedal groups tested. Ankle joint DF is decreased with the knee extended with no pain or crepitus noted. 1st MPJ ROM is decreased bilateral. Assessment: (B35.1) Onychomycosis (primary encounter diagnosis) (M79.675) Pain in toe of left foot (M79.674) Pain in toe of right foot (L84) Callus of foot Plan: Patient was seen and evaluated. Nails 1-5 bilateral were debrided in length and thickness. Callus reduced to b/l 5th metatarsal with dremmel. Patient is to RTC in 3-4 months. Debra Castrejon, [facility]01-10-2025 History of Present illness Narrative* Debra Castrejon - 06/14/2024 1:19 PM EST Subjective: Patient presents to clinic c/o painful toenails. They state that the nails are especially painful with shoe gear and pressure. Patient states that nails 1-5 b/l are painful. Patient has callus to b/l feet that causes pain. No other pedal complaints at this time. Patient states no change in medications or medical history since last visit. Objective: Patient presents to clinic ambulating in [facility] Vasc: DP and PT pulses are nonpalpable bilateral. CFT is less than 5 seconds bilateral. Skin temperature is warm to cool proximal to distal bilateral. There is no edema or varicosities noted. Neuro: Protective sensation is intact to the foot and toes when tested with the 5.07 SWM bilateral.Vibratory sensation is absent at the hallux IPJ bilateral. The hallux is downgoing bilateral. Derm: Nails 1-5 b/l are painful, discolored-yellow, thick, crumbly, dystrophic and with subungal debris. Skin is of normal turgor, texture and hair growth is absent bilateral. There are callus to b/l5th metatarsal. no ulcerations, scars, verruca or other lesions noted. Ortho: Muscle strength is 5/5 for all pedal groups tested. Ankle joint DF is decreased with the knee extended with no pain or crepitus noted. 1st MPJ ROM is decreased bilateral. Assessment: (B35.1) Onychomycosis (primary encounter diagnosis) (M79.675) Pain in toe of left foot (M79.674) Pain in toe of right foot (L84) Callus of foot Plan: Patient was seen and evaluated. Nails 1-5 bilateral were debrided in length and thickness. Callus reduced to b/l 5th metatarsal with dremmel. Patient is to RTC in 3-4 months. Debra Castrejon DPM * Susana Gonsalez LPN - 06/14/2024 1:10 PM EST AMB ROOMING INTAKE FLOWSHEET DATA Patient presents with: Left Foot - Established Patient, Follow Up, nail care Right Foot - Established Patient, Follow Up, nail care Susana Gonsalez LPN [facility] NoteHNO ID: [id number] Author: SUSANA GONSALEZ LPN Service: ? Author Type: LICENSED NURSE Type: Progress Notes Filed: 06/14/2024 13:31 Note Text: AMB ROOMING INTAKE FLOWSHEET DATA Patient presents with: Left Foot - Established Patient, Follow Up, nail care Right Foot - Established Patient, Follow Up, [facility] Note* Telephone Encounter - Jyoti Dougherty LPN - 06/06/2024 10:50 AM EST Orders and face sheet faxed, confirmation received. Jyoti Dougherty LPN June 06, 2024 10:52 AM [facility]01-02-2025 Miscellaneous Notes* Telephone Encounter - Jyoti Dougherty LPN - 06/06/2024 10:50 AM EST Orders and face sheet faxed, confirmation received. Jyoti Dougherty LPN June 06, 2024 10:52 AM * Telephone Encounter - Jyoti Dougherty LPN - 06/06/2024 10:47 AM EST ----- Message from Chris Pearson MD sent at 06/06/2024 10:43 AM EST ----- Regarding: FW: PD physical therapy It is from 05/13/24 ----- Message ----- From: Eliezer Marie, PT Sent: 06/06/2024 9:44 AM EST To: Chris Pearson Jr., MD Subject: PD physical therapy Dr Pearson, After speaking with this patient, he would like to [facility]. Could you please fax the PT order over there for them so they can get scheduled? Thanks! Eliezer Marie [facility] Telephone encounter Note * Telephone Encounter - Jyoti Dougherty LPN - 06/06/2024 10:47 AM EST ----- Message from Chris Pearson MD sent at 06/06/2024 10:43 AM EST ----- Regarding: FW: PD physical therapy It is from 05/13/24 ----- Message ----- From: Eliezer Marie, PT Sent: 06/06/2024 9:44 AM EST To: Chris Pearson Jr., MD Subject: PD physical therapy Dr Pearson, After speaking with this patient, he would like to carry out his physical therapy at [facility]. Could you please fax the PT order over there for them so they can get scheduled? Thanks! Eliezer Marie [facility]12-13-2024 NoteHNO ID: [id number] Author: BRANDON CANTOR MD Service: ? Author Type: Physician Type: Progress Notes Filed: 05/17/2024 23:09 Note Text: This note was created using [employer]. Subjective Rohan Olivia Jr. is a 78 year old male. He was doing reasonably well at this time. Activity and mobility was limited due to Parkinson's. He was using a walker more now. His thyrotoxicosis was controlled and stable, and endocrinology has released care to primary care. Review of Systems Constitutional: Negative for fatigue, fever and unexpected weight change. HENT: Negative for congestion, rhinorrhea and sore throat. Eyes: Negative for visual disturbance. Respiratory: Negative for cough, shortness of breath and wheezing. Cardiovascular: Negative for chest pain, palpitations and leg swelling. Gastrointestinal: Negative for abdominal pain, constipation, diarrhea, nausea and vomiting. Genitourinary: Negative for difficulty urinating and dysuria. Musculoskeletal: Positive for arthralgias and gait problem. Neurological: Negative for dizziness and headaches. 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 pantoprazole DR (PROTONIX) 40 mg tablet Take 40 mg by mouth once daily. cholestyramine/aspartame (CHOLESTYRAMINE LIGHT ORAL) Take by mouth once daily. carbidopa-levodopa (SINEMET) 25-100 mg per tablet Take 1.5 tablets at 8AM, Noon and 4PM. carbidopa-levodopa CR (SINEMET CR) 50-200 mg per tablet Take at 9PM nightly. isosorbide mononitrate ER (IMDUR) 30 mg 24 hr tablet Take 1 tablet by mouth once daily. metoprolol tartrate, short acting, (LOPRESSOR) 25 mg tablet Take 1 tablet by mouth two times a day. atorvastatin (LIPITOR) 20 mg tablet Take 1 tablet by mouth daily at bedtime. For cholesterol. PARoxetine (PAXIL) 20 mg tablet Take 1 tablet by mouth once daily. ketoconazole (NIZORAL) 2 % shampoo Apply to affected area two times a week. Per [facility]. PRN tamsulosin (FLOMAX) 0.4 mg Take 0.4 mg by mouth once daily. methIMAzole (TAPAZOLE) 5 mg tablet Take 1 tablet by mouth once daily. Per Dr. Mayela Murray, endocrinology. LORazepam (ATIVAN) 1 mg tablet Take 1 tablet by mouth at bedtime as needed for anxiety for up to 90 days. potassium chloride SR (MICRO-K) 10 mEq CR capsule Take 1 capsule by mouth two times a day. ipratropium bromide (ATROVENT) 42 mcg (0.06 %) nasal spray Use 2 Sprays in the nose as needed. No current facility-administered medications for this visit. Objective BP 128/60 Pulse (!) 49 Ht 175.3 cm (5' 9) Wt 85.6 kg (188 lb 11.4 oz) SpO2 95% BMI 27.87 kg/m? Physical Exam Constitutional: Appearance: He is not ill-appearing. HENT: Head: Normocephalic. Nose: No congestion or rhinorrhea. Eyes: Conjunctiva/sclera: Conjunctivae normal. Cardiovascular: Rate and Rhythm: Regular rhythm. Bradycardia present. Heart sounds: No murmur heard. No gallop. Pulmonary: Effort: No respiratory distress. Breath sounds: No wheezing or rales. Abdominal: General: There is no distension. Palpations: Abdomen is soft. Tenderness: There is no abdominal tenderness. Musculoskeletal: Right lower leg: No edema. Left lower leg: No edema. Lymphadenopathy: Cervical: No cervical adenopathy. Neurological: General: No focal deficit present. Mental Status: He is alert. Cranial Nerves: No cranial nerve deficit. Sensory: No sensory deficit. Motor: No weakness. Gait: Gait abnormal. Comments: Using walker. Assessment and Plan 1. Medicare annual wellness visit, subsequent - ICD9: V70.0, ICD10: Z00.00 (primary diagnosis) - See wellness visit. 2. Anxiety - ICD9: 300.00, ICD10: F41.9 Controlled. - Continue PAROXETINE. - LORAZEPAM 1 MG TABLET. Refilled for rare use. 3. Primary hypertension - ICD9: 401.9, ICD10: I10 - Controlled - Continue current medications - Encouraged sodium restriction, DASH or Mediterranean diet - Recommend regular aerobic exercise - Discu (more content not included)...[facility]12-13-2024 History of Present illness Narrative* Brandon Cantor MD - 05/17/2024 12:00 PM EST This note was created using Textádoriter. Subjective Rohan Olivia Jr. is a 78 year old male. He was doing reasonably well at this time. Activity and mobility was limited due to Parkinson's. He was using a walker more now. His thyrotoxicosis was controlled and stable, and endocrinology has released care to primary care. Review of Systems Constitutional: Negative for fatigue, fever and unexpected weight change. HENT: Negative for congestion, rhinorrhea and sore throat. Eyes: Negative for visual disturbance. Respiratory: Negative for cough, shortness of breath and wheezing. Cardiovascular: Negative for chest pain, palpitations and leg swelling. Gastrointestinal: Negative for abdominal pain, constipation, diarrhea, nausea and vomiting. Genitourinary: Negative for difficulty urinating and dysuria. Musculoskeletal: Positive for arthralgias and gait problem. Neurological: Negative for dizziness and headaches. 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 pantoprazole DR (PROTONIX) 40 mg tablet Take 40 mg by mouth once daily. cholestyramine/aspartame (CHOLESTYRAMINE LIGHT ORAL) Take by mouth once daily. carbidopa-levodopa (SINEMET) 25-100 mg per tablet Take 1.5 tablets at 8AM, Noon and 4PM. carbidopa-levodopa CR (SINEMET CR) 50-200 mg per tablet Take at 9PM nightly. isosorbide mononitrate ER (IMDUR) 30 mg 24 hr tablet Take 1 tablet by mouth once daily. metoprolol tartrate, short acting, (LOPRESSOR) 25 mg tablet Take 1 tablet by mouth two times a day. atorvastatin (LIPITOR) 20 mg tablet Take 1 tablet by mouth daily at bedtime. For cholesterol. PARoxetine (PAXIL) 20 mg tablet Take 1 tablet by mouth once daily. ketoconazole (NIZORAL) 2 % shampoo Apply to affected area two times a week. Per [facility]. PRN tamsulosin (FLOMAX) 0.4 mg Take 0.4 mg by mouth once daily. methIMAzole (TAPAZOLE) 5 mg tablet Take 1 tablet by mouth once daily. Per Dr. Mayela Murray, endocrinology. LORazepam (ATIVAN) 1 mg tablet Take 1 tablet by mouth at bedtime as needed for anxiety for up to 90days. potassium chloride SR (MICRO-K) 10 mEq CR capsule Take 1 capsule by mouth two times a day. ipratropium bromide (ATROVENT) 42 mcg (0.06 %) nasal spray Use 2 Sprays in the nose as needed. No current facility-administered medications for this visit. Objective BP 128/60 Pulse (!) 49 Ht 175.3 cm (5' 9) Wt 85.6 kg (188 lb 11.4 oz) SpO2 95% BMI 27.87kg/m Physical Exam Constitutional: Appearance: He is not ill-appearing. HENT: Head: Normocephalic. Nose: No congestion or rhinorrhea. Eyes: Conjunctiva/sclera: Conjunctivae normal. Cardiovascular: Rate and Rhythm: Regular rhythm. Bradycardia present. Heart sounds: No murmur heard. No gallop. Pulmonary: Effort: No respiratory distress. Breath sounds: No wheezing or rales. Abdominal: General: There is no distension. Palpations: Abdomen is soft. Tenderness: There is no abdominal tenderness. Musculoskeletal: Right lower leg: No edema. Left lower leg: No edema. Lymphadenopathy: Cervical: No cervical adenopathy. Neurological: General: No focal deficit present. Mental Status: He is alert. Cranial Nerves: No cranial nerve deficit. Sensory: No sensory deficit. Motor: No weakness. Gait: Gait abnormal. Comments: Using walker. Assessment and Plan 1. Medicare annual wellness visit, subsequent - ICD9: V70.0, ICD10: Z00.00 (primary diagnosis) - See wellness visit. 2. Anxiety - ICD9: 300.00, ICD10: F41.9 Controlled. - Continue PAROXETINE. - LORAZEPAM 1 MG TABLET. Refilled for rare use. 3. Primary hypertension - ICD9: 401.9, ICD10: I10 - Controlled - Continue current medications - Encouraged sodium restriction, DASH or Mediterranean diet - Recommend regular aerobic exercise - Discussed need for and benefit of weight loss. BMI 27.87 kg/(m^2) - POTASSIUM CHLORIDE ER 10 MEQ CAPSULE,EXTENDED RELEASE 4. 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 - IPRATROPIUM BROMIDE 42 MCG (0.06 %) NASAL SPRAY 5. Screening for depression - ICD9: V79.0, ICD10: Z13.31 Done. - DEPRESSION SCREENING 6. Parkinson's disease, unspecified whether dyskinesia present, unspecified whether manifestations fluctuate (HCC) - ICD9: 332.0, ICD10: G20.A1 - FALLS RISK EDUCATION 7. Coronary artery disease of [place] artery of [place] heart with stable angina pectoris (HCC) - ICD9: 414.01, 413.9, ICD10: I25.118 - Stable. 8. Platelets decreased (HCC) - ICD9: 287.5, ICD10: D69.6 - Monitored. 9. Stage 3a chronic kidney disease (HCC) - ICD9: 585.3, ICD10: N18.31 - eGFR: Due for labs - Counseled on avoiding NSAIDs, adequate hydration 10. Thyrotoxicosis without thyroid storm, unspecified thyrotoxicosis type - ICD9: 242.90, ICD10: E05.90 - Chronic, stable. Call for refill of methimazole. 11. Need for COVID-19 vaccine - ICD9: V04.89, ICD10: Z23 - [employer] COVID-19 VACCINE AGE 12+ YR (COMIRNATY) 12. History of renal cell cancer - ICD9: V10.52, ICD10: Z85.528 - PASTOR. Brandon Cantor MD * Brandon Cantor MD - 05/17/2024 11:53 AM EST Rohan Olivia Jr. is a 78 year old male here for a Medicare wellness visit. Medicare Health Risk Assessment General Health Fair Exercise: Minutes/Day 0 min Exercise: Days/Week 0 days Alcohol: Daily Use Never Alcohol: Drinks/Day Patient does not drink Alcohol: 6 or more drinks Never Feel off balance Yes Concerns: Teeth/Dentures No Concerns: Sexual function No Troubled by feelings Anxious Frequency: Eating healthy diet Several days ADLs requiring help Cooking; Housework; Driving Safety precautions in home/vehicle Yes Smoke, vape, chews tobacco No Difficulty hearing No Difficulty seeing No Current Providers Specialists: I have reviewed specialist-related care of the patient in the medical record. Current care team: Patient Care Team: Brandon Cantor MD as PCP - General Delicia Anton, 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 as Ms Sql Server Developer (Internal Medicine) Douglas Mortensen MD (Cardiology) Chris Pearson Jr., MD (Neurology) Debra Castrejon DPM (Podiatry) Outside specialists seen: Blanca Obrien MD (Gastroenterology) Angel Connolly MD (Urology) Claire Herrera APRN, CNP (Dermatology, [facility]) Pascual Dawson MD (ENT) Nikhil Darling (Optometry). Jabari Phan MD (Orthopedics) Medical/Family history review Reviewed and updated problem list, medical/surgical/family/social history, medications, and allergies. Opioid use review Opioid Medications (last 90 days) No data to display Anxiety/Depression screening PHQ-2 Score: 0 (Lower risk for depression) Recommendation: no further intervention at this time Cognitive screening Mini Cog Score: 4 Cognitive screening reviewed and No further action needed (score 3-5). Functional Observation Was the patient's Timed Up & Go test unsteady or >= 12 seconds? No Advance Care Planning Patient was not able to provide a surrogate decision maker or written advance directives Measurements BP 128/60 Pulse (!) 49 Ht 175.3 cm (5' 9) Wt 85.6 kg (188 lb 11.4 oz) SpO2 95% BMI 27.87kg/m Vision Screening: Follows with optometry/ophthalmology Assessment/Plan Medicare annual wellness visit, subsequent (Z00.00) - Counseled on healthy diet and regular exercise - Fall avoidance information provided - Personalized prevention plan provided - Vaccine recommendation: Covid 19. [facility] NoteHNO ID: [id number] Author: BRANDON CANTOR MD Service: ? Author Type: Physician Type: Progress Notes Filed: 05/17/2024 23:09 Note Text: Rohan Olivia Jr. is a 78 year old male here for a Medicare wellness visit. Medicare Health Risk Assessment General Health Fair Exercise: Minutes/Day 0 min Exercise: Days/Week 0 days Alcohol: Daily Use Never Alcohol: Drinks/Day Patient does not drink Alcohol: 6 or more drinks Never Feel off balance Yes Concerns: Teeth/Dentures No Concerns: Sexual function No Troubled by feelings Anxious Frequency: Eating healthy diet Several days ADLs requiring help Cooking; Housework; Driving Safety precautions in home/vehicle Yes Smoke, vape, chews tobacco No Difficulty hearing No Difficulty seeing No Current Providers Specialists: I have reviewed specialist-related care of the patient in the medical record. Current care team: Patient Care Team: Brandon Cantor MD as PCP - General Delicia Anton APRN.ALFREDO as Ms Sql Server Developer (Internal Medicine) Douglas Mortensen MD (Cardiology) Chris Pearson Jr., MD (Neurology) Debra Castrejon DPM (Podiatry) Outside specialists seen: Blanca Obrien MD (Gastroenterology) Angel Connolly MD (Urology) Claire Herrera APRN, CNP (Dermatology, [facility]) Pascual Dawson MD (ENT) Nikhil Darling (Optometry). Jabari Phan MD (Orthopedics) Medical/Family history review Reviewed and updated problem list, medical/surgical/family/social history, medications, and allergies. Opioid use review Opioid Medications (last 90 days) No data to display Anxiety/Depression screening PHQ-2 Score: 0 (Lower risk for depression) Recommendation: no further intervention at this time Cognitive screening Mini Cog Score: 4 Cognitive screening reviewed and No further action needed (score 3-5). Functional Observation Was the patient's Timed Up AND Go test unsteady or >= 12 seconds? No Advance Care Planning Patient was not able to provide a surrogate decision maker or written advance directives Measurements BP 128/60 Pulse (!) 49 Ht 175.3 cm (5' 9) Wt 85.6 kg (188 lb 11.4 oz) SpO2 95% BMI 27.87 kg/m? Vision Screening: Follows with optometry/ophthalmology Assessment/Plan Medicare annual wellness visit, subsequent (Z00.00) - Counseled on healthy diet and regular exercise - Fall avoidance information provided - Personalized prevention plan provided - Vaccine recommendation: Covid 19.[facility]12-13-2024 Instructions* Patient Instructions* Brandon Cantor MD - 05/17/2024 11:52 AM EST You would benefit from general conditioning exercise programs such as those offered by recreation centers or the [facility]. WHAT YOU CAN DO TO PREVENT FALLS Many falls can be prevented. By making some changes, you can lower your chances of falling. Four things YOU can do to prevent falls for you* and your caregiver 1. Begin a regular exercise program Exercise is one of the most important ways to lower your chances of falling. It makes you stronger and helps you feel better. Exercises that improve balance and coordination (like Kenneth Chi) are the most helpful. Lack of exercise leads to weakness and increases your chances of falling. Ask your doctor or health care provider about the best type of exercise program for you. 2. Have your health care provider review your medicines Have your doctor or pharmacist review all the medicines you take, even [id number] medicines. As you get older, the way medicines work in your body can change. Some medicines, or combinations of medicines, can make you sleepy or dizzy andcan cause you to fall. 3. Have your vision checked Have your eyes checked by an eye doctor at least once a year. You may be wearing the wrong glasses or have a condition like glaucoma or cataracts that limits your vision. Poor vision can increase your chances of falling. 4. Make your home safer About half of all falls happen at home. To make your home safer: Remove things you can trip over (like papers, books, clothes, and shoes) from stairs and places where you walk. Remove small throw rugs or use double-sided tape to keep the rugs from slipping. Keep items you use often in cabinets you can reach easily without using a step stool. Have grab bars put in next to your toilet and in the tub or shower. Use non-slip mats in the bathtub and on shower floors. Improve the lighting in your home. As you get older, you need brighter lights to see well. Hang light-weight curtains or shades to reduce glare. Have handrails and lights put in on all staircases. Wear shoes both inside and outside the house. Avoid going barefoot or wearing slippers. For more information, contact: Centers for Disease Control and Prevention www.cdc.gov/injury * This information may not apply if you have certain medical conditions. Screening schedule The following prevention plan is recommended: Covid-19 Vaccine() due on 02/04/2024 Serum Creatinine due on 05/16/2024 Hemoglobin/Hematocrit due on 05/16/2024 LDL Cholesterol due on 05/16/2024 Fasting blood tests soon. [facility] Instructions* Patient Instructions* Chris Pearson Jr., MD - 05/13/2024 11:58 AM EST CARBIDOPA-LEVODOPA 25/100mg Take 1.5 tablets at 8AM, Noon and 4PM. CARBIDOPA-LEVODOPA CR 50/200mg Take 1 tablet at 9PM. documented in this [facility]12-[facility]-2024 NoteHNO ID: [id number] Author: CHRIS PEARSON JR, MD Service: ? Author Type: Physician Type: Progress Notes Filed: 05/13/2024 12:20 Note Text: ESTABLISHED PATIENT VISIT CHIEF COMPLAINT: Follow Up HISTORY OF PRESENT ILLNESS: Rohan Olivia Jr. is a 78 year old male, BMI 27.54 kg/m2 with a PMH significant for and per notes of Jose Ledbetter CNP of 08/11/22: G20 Parkinson's disease (HCC) (primary encounter diagnosis) Comment: Patient previously seen for Parkinson's disease after initial appointment and diagnosis made by movement disorder clinic. Symptoms stable at time of previous appointment, however, given concern by outside neurologist for increase in symptoms Sinemet 25-100mg was increased to 1.5 tablets TID. He reports he frequently misses afternoon and PM dose of medication, however, no significant worsening of symptoms. Exam remains stable today; minimal shuffling, no retropulsion, no tremor noted. He uses a cane for stability. Discussed importance of compliance with medication and recommend setting alarm on his phone which he has done in the past. As symptoms are stable and he has difficulty with medication, will return to one tablet TID at 0730, 1230, and 1730. Recommend continuing therapy exercises at home and staying active within limitations. G45.9 TIA (transient ischemic attack) H53.2 Diplopia R42 Vertigo Comment: Hx of TIA for which he was following with outside neurology. CTA and MRI brain completed at the time with CTA noting 70% L ICA stenosis. He has since had evaluation by vascular surgery and it was not felt that surgery was warranted. He was to continue maximization of medical care as he was doing. 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 He does report that he followed up with his PCP, however, on review of notes it appears aspirin was not restarted as there were no cardiac concerns. Discussed with the patient that ASA would be used for stroke prevention rather than for cardiac purposes. Wouldrecommend restarting after appointment today. He remains on Lipitor as well. Of note, he reports episode of severe dizziness described as the room spinning which began 2 nights ago. Position change or movement was not a triggering factor. Symptoms persisted until the afternoon. He was seen in the ED where CT of brain was completed and unremarkable. At appointment today he also reports diplopia which appears to be present in both eyes. No other focal neurological deficits on exam. As patient has not been taking ASA in addition to history of TIA as well as exam findings, concern for stroke/TIA. MRI of brain ordered for further evaluation. Above was last neuro follow up. I have never seen patient in the past, and only neurologist on record is Dr. Simon who saw patient by virtual on 10/11/21. MRI Brain on 08/29/22 per rad report did not show an acute change or other explanation of symptoms: 1. No acute intracranial findings. 2. Presumed mild chronic microvascular ischemia and mild generalized parenchymal volume loss. No new focal neuro deficits and no complaints of vertigo or diplopia. Currently on Sinemet 25/100mg - taking 2 tabs in AM and 1 tab at bedtime. Patient returns today due to more tremors, but feels it is actually due to more freezing. Couple falls. Difficulties getting out of chairs. Needs more assist with fine motor tasks. No constipation. Very rare possible RBD symptoms. +Mother with Parkinson's disease. States shaking when gets up in the morning. Takes 2 Sinemet and by mid morning starts feeling better and tremors are not so severe, but symptoms return late afternoon. Wakes to start the day about 8AM; with bedtime of about 9-10PM. +Micro graphia. Difficulties eating. MRI brain reviewed. No significant enlargement of vents. No NPH symptoms of urinary incontinence or cognitive decline. General cortical atrophy. REVIEW OF SYSTEMS GENERAL:No weight loss, malaise or fevers. HEENT:Negative for frequent or significant headaches, No changes in hearing or vision, no nose bleeds or other nasal problems NECK:Negative for lumps, goiter, pain and significant neck swelling RESPIRATORY: Negative for cough, wheezing or shortness of breath. CARDIOVASCULAR: Negative for chest pain, leg swelling or palpitations. GASTROINTESTINAL: Negative for abdominal discomfort, blood in stools or black stools or change in bowel habits GENITOURINARY: No history of dysuria, frequency or incontinence MUSCULOSKELETAL: Negative for joint pain or swelling, back pain or muscle pain. NEUROLOGIC:Negative for focal numbness or weakness, headaches and dizziness or syncope, vision changes, speech/languag changes - EXCEPT that as per HPI above. SKIN:Negative for lesions, rash, and itching. LAB/IMAGING: Those performed sin (more content not included)...[facility]12-09-2024 History of Present illness Narrative* Chris Pearson Jr., MD - 05/13/2024 11:26 AM EST ESTABLISHED PATIENT VISIT CHIEF COMPLAINT: Follow Up HISTORY OF PRESENT ILLNESS: Rohan Olivia Jr. is a 78 year old male, BMI 27.54 kg/m2 with a PMH significant for and per notes of Jose Ledbetter CNP of 08/11/22: G20 Parkinson's disease (HCC) (primary encounter diagnosis) Comment: Patient previously seen for Parkinson's disease after initial appointment and diagnosis made by movement disorder clinic. Symptoms stable at time of previous appointment, however, given concern by outside neurologist for increase in symptoms Sinemet 25-100mg was increased to 1.5 tablets TID. He reports he frequently misses afternoon and PM dose of medication, however, no significant worsening of symptoms. Exam remains stable today; minimal shuffling, no retropulsion, no tremor noted. He uses a cane for stability. Discussed importance of compliance with medication and recommend setting alarm on his phone which he has done in the past. As symptoms are stable and he has difficulty with medication, will return to one tablet TID at 0730, 1230, and 1730. Recommend continuing therapy exercises at home and staying active within limitations. G45.9 TIA (transient ischemic attack) H53.2 Diplopia R42 Vertigo Comment: Hx of TIA for which he was following with outside neurology. CTA and MRI brain completed at the time with CTA noting 70% L ICA stenosis. He has since had evaluation by vascular surgery and it was not felt that surgery was warranted. He was to continue maximization of medical care as he wasdoing. 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 He does report that he followed up with his PCP, however, on review of notes it appears aspirin was not restarted as there were no cardiac concerns. Discussed with the patient that ASA would be used for stroke prevention rather than for cardiac purposes. Would recommend restarting after appointment today. He remains on Lipitor as well. Of note, he reports episode of severe dizziness described as the room spinning which began 2 nights ago. Position change or movement was not a triggering factor. Symptoms persisted until the afternoon. He was seen in the ED where CT of brain was compl eted and unremarkable. At appointment today he also reports diplopia which appears to be present inboth eyes. No other focal neurological deficits on exam. As patient has not been taking ASA in addition to history of TIA as well as exam findings, concern for stroke/TIA. MRI of brain ordered for further evaluation. Above was last neuro follow up. I have never seen patient in the past, and only neurologist on record is Dr. Simon who saw patient by virtual on 10/11/21. MRI Brain on 08/29/22 per rad report did not show an acute change or other explanation of symptoms: 1. No acute intracranial findings. 2. Presumed mild chronic microvascular ischemia and mild generalized parenchymal volume loss. No new focal neuro deficits and no complaints of vertigo or diplopia. Currently on Sinemet 25/100mg - taking 2 tabs in AM and 1 tab at bedtime. Patient returns today due to more tremors, but feels it is actually due to more freezing. Couple falls. Difficulties getting out of chairs. Needs more assist with fine motor tasks. No constipation. Very rare possible RBD symptoms. +Mother with Parkinson's disease. States shaking when gets up in the morning. Takes 2 Sinemet and by mid morning starts feeling better and tremors are not so severe, but symptoms return late afternoon. Wakes to start the day about 8AM; with bedtime of about 9-10PM. +Micro graphia. Difficulties eating. MRI brain reviewed. No significant enlargement of vents. No NPH symptoms of urinary incontinence orcognitive decline. General cortical atrophy. REVIEW OF SYSTEMS GENERAL:No weight loss, malaise or fevers. HEENT:Negative for frequent or significant headaches, No changes in hearing or vision, no nose bleeds or other nasal problems NECK:Negative for lumps, goiter, pain and significant neck swelling RESPIRATORY: Negative for cough, wheezing or shortness of breath. CARDIOVASCULAR: Negative for chest pain, leg swelling or palpitations. GASTROINTESTINAL: Negative for abdominal discomfort, blood in stools or black stools or change in bowel habits GENITOURINARY: No history of dysuria, frequency or incontinence MUSCULOSKELETAL: Negative for joint pain or swelling, back pain or muscle pain. NEUROLOGIC:Negative for focal numbness or weakness, headaches and dizziness or syncope, vision changes, speech/languag changes - EXCEPT that as per HPI above. SKIN:Negative for lesions, rash, and itching. LAB/IMAGING: Those performed since patient's last visit have been reviewed. WBC (k/uL) Date Value 05/16/2023 5.73 RBC (m/uL) Date Value 05/16/2023 5.24 Hemoglobin (g/dL) Date Value 05/16/2023 16.3 Hematocrit (%) Date Value 05/16/2023 48.2 MCV (fL) Date Value 05/16/2023 92.0 MCH (pg) Date Value 05/16/2023 31.1 MCHC (g/dL) Date Value 05/16/2023 33.8 RDW-CV (%) Date Value 05/16/2023 13.8 Platelet Count (k/uL) Date Value 05/16/2023 116 (L) MPV (fL) Date Value 05/16/2023 11.2 Glucose (mg/dL) Date Value 05/16/2023 92 BUN (mg/dL) Date Value 05/16/2023 15 Creatinine (mg/dL) Date Value 05/16/2023 1.40 (H) Sodium (mmol/L) Date Value 05/16/2023 142 Potassium (mmol/L) Date Value 05/16/2023 4.2 Chloride (mmol/L) Date Value 05/16/2023 104 CO2 (mmol/L) Date Value 05/16/2023 27 Protein, Total (g/dL) Date Value 09/13/2021 6.4 Albumin (g/dL) Date Value 09/13/2021 4.0 Calcium, Total (mg/dL) Date Value 05/16/2023 9.7 Alkaline Phosphatase (U/L) Date Value 09/13/2021 104 Bilirubin, Total (mg/dL) Date Value 09/13/2021 0.5 AST (U/L) Date Value 09/13/2021 18 ALT (U/L) Date Value 09/13/2021 13 Hep C Antibody IA (no units) Date Value 10/03/2014 Negative MEDICATIONS: aspirin 81 mg cap Take 81 mg by mouth once daily. pantoprazole DR (PROTONIX) 40 mg tablet Take 40 mg by mouth once daily. cholestyramine/aspartame (CHOLESTYRAMINE LIGHT ORAL) Take by mouth once daily. isosorbide mononitrate ER (IMDUR) 30 mg 24 hr tablet Take 1 tablet by mouth once daily. metoprolol tartrate, short acting, (LOPRESSOR) 25 mg tablet Take 1 tablet by mouth two times a day. atorvastatin (LIPITOR) 20 mg tablet Take 1 tablet by mouth daily at bedtime. For cholesterol. PARoxetine (PAXIL) 20 mg tablet Take 1 tablet by mouth once daily. potassium chloride SR (MICRO-K) 10 mEq CR capsule Take 1 capsule by mouth two times a day. carbidopa-levodopa (SINEMET) 25-100 mg per tablet Take 1.5 tablets by mouth three times a day. ketoconazole (NIZORAL) 2 % shampoo Apply to affected area two times a week. Per [facility]. PRN ipratropium bromide (ATROVENT) 42 mcg (0.06 %) nasal spray Use 2 Sprays in the nose four times daily. (Patient taking differently: Use 2 Sprays in the nose as needed.) LORazepam (ATIVAN) 1 mg tablet Take 1 tablet by mouth at bedtime as needed for anxiety for up to 90days. tamsulosin (FLOMAX) 0.4 mg Take 0.4 mg by mouth once daily. methIMAzole (TAPAZOLE) 5 mg tablet Take 1 tablet by mouth once daily. Per Dr. Mayela Murray, endocrinology. HISTORIES PAST MEDICAL HISTORY Diagnosis Date Acquired polycythemia 01/24/2013 Actinic Keratosis (Premalignant AK) 09/05/2010 Acute cholecystitis 08/18/2023 Adenomatous colon polyp 10/09/2014 Anxiety 06/19/2009 BPH loc w/o Ur Obs/LUTS 06/19/2009 Chronic bronchitis (HCC) 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 Clostridium difficile diarrhea 08/21/2021 Enterocolitis due to Clostridium difficile 05/25/2015 Gross hematuria 01/30/2018 Hemarthrosis following procedure 07/23/2021 Right knee s/p TKR Hypertension 05/04/2009 Hyperthyroidism, subclinical 06/19/2009 OA (osteoarthritis) of knee 01/24/2013 Obesity 06/19/2009 Obesity, Class I, BMI 30-34.9 10/19/2017 Other chest pain Sandrita Mortensen MD. [facility] 08/20/2020. Other pulmonary embolism with acute cor pulmonale (HCC) 01/30/2018 fall, right hip fracture, right total hip Other pulmonary embolism with acute cor pulmonale (HCC) Panic attacks 2001 previously on Xanax Parkinson's disease (HCC) 11/17/2021 Pulmonary hypertension (HCC) 01/30/2018 Renal cell cancer, left (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 Asthma Maternal Grandfather Colon Cancer Other Maternal 1st cousin age 40s SOCIAL HISTORY Social History Tobacco Use Smoking status: Former Current packs/day: 0.00 Average packs/day: 2.0 packs/day for 35.0 years (70.0 ttl pk-yrs) Types: Cigarettes Start date: 1964 Quit date: 07/05/1998 Years since quittin.8 Smokeless tobacco: Never Vaping Use Vaping status: Never Used Substance Use Topics Alcohol use: No Drug use: No PHYSICAL EXAMINATION BP 146/70 (BP Site: Left Arm, BP Position: Sitting) Pulse (!) 52 Resp 18 Wt 86.5 kg (190 lb 9.6 oz) SpO2 94% BMI 27.54 kg/m GENERAL EXAM: General appearance: NAD, pleasant. HEENT: NC/AT, nasal congestion absent, no oral lesions, membranes moist. NECK: ROM nml. Lungs: CTA bilaterally. CV: RRR nl S1, S2 Extr: No cyanosis, clubbing or edema. Skin: Cool to touch. NEUROLOGICAL EXAM: General: Awake, alert, oriented x3 (person,place,time), fluent, no dysarthria; comprehension, naming, repetition intact. Masked facies. Mild hypophonia. CN: PERRL, EOMI and without nystagmus, VFF to confrontation, facial sensation and strength are normal and symmetric, hearing is intact, palate and tongue movements are intact and symmetric. SCM and trapezius strength normal. Motor: Normal bulk and strength (5/5) bilaterally (throughout extremities x4). Tone increased in bean UEs in cogwheel nature. Coordination: FNF, HTS intact. WILLIE impaired in bean UE (L>R), Resting tremor in bean UEs. Sensation: Light touch, vibration, temperature intact throughout. No evidence of neglect. Gait: Difficulties rising from chair without use of UEs. Stooped posture. Decreased shuffling stride with decreased arm swing bean. Retropulsion on pull testing. Assessment and Plan: ASSESSMENT/PLAN: 1. Parkinson's disease, unspecified whether dyskinesia present, unspecified whether manifestations fluctuate (HCC) - ICD9: 332.0, ICD10: G20.A1 (primary diagnosis) 2. Abnormality of gait - ICD9: 781.2, ICD10: R26.9 Patient with prior dx of Parkinson's disease, and agree with dx after obtaining history and examination. However, symptoms poorly controlled at this time due to scheduling of medication. Patient currently only taking Sinemet in AM and then not again until bedtime. Note pt does best during the AM hours. D/w pt and his who accompanied pt, etiology, physiology, treatment and prognosis of PD. They understand this is a clinical dx. They understand the need to take medications as scheduled. They understand the benefits of activity and exercise in slowing the progression of disease. After reviewingprior treatment and response to meds, plan as follows: CARBIDOPA-LEVODOPA 25/100mg Take 1.5 tablets at 8AM, Noon and 4PM. CARBIDOPA-LEVODOPA CR 50/200mg Take 1 tablet at 9PM. SE and ADRs of above d/w pt. Will also refer to physical therapy for PD based program. Patient will follow up in 8-12 weeks for reevaluation and assessment for need in change of meds. Patient and his agree with plan. Asked them to make sure to follow up with PCP this month for annual labs including CMP as may impact dosing of meds I the future. Chris Pearson MD I spent a total of 45 minutes on the date of the service which included preparing to see the patient, [id number] patient care, completing clinical documentation, obtaining and/or reviewing separately obtained history, performing a medically appropriate examination, counseling and educating the pat ient/family/caregiver, ordering medications, tests, or procedures, and communicating results to thepatient/family/caregiver. [facility] in this [facility]24 Telephone encounter Note * Telephone Encounter - Renea Caraballo LPN - 04/29/2024 4:43 PM EST Patient notified, letter taken to Medical Records. Renea Caraballo LPN [facility]11-25-[facility] Miscellaneous Notes* Telephone Encounter - Renea Caraballo LPN - 04/29/2024 4:43 PM EST Patient notified, letter taken to Medical Records. Renea Caraballo LPN * Telephone Encounter - Brandon Cantor MD - 04/29/2024 4:32 PM EST Printed. * Telephone Encounter - Amrita Hernandez RN - 04/29/2024 2:08 PM EST Patient calling to [facility] He says needs excused due to Parkinson's. He says he will shrimp picker letter when completed. Let patient know when ready. Amrita Hernandez RN documented in this [facility]11-[facility]-2024 Telephone encounter Note * Telephone Encounter - Brandon Cantor MD - 04/29/2024 4:32 PM EST Printed. [facility] Telephone encounter Note* Telephone Encounter - Amrita Hernandez RN - 04/29/2024 2:08 PM EST Patient calling to request [facility] He says needs excused due to Parkinson's. He says he will shrimp picker letter when completed. Let patient know when ready. Amrita Hernandez RN [facility]24 NoteHNO ID: [id number] Author: DOUGLAS MORTENSEN MD Service: ? Author Type: Physician Type: Progress Notes Filed: 04/15/2024 15:51 Note Text: Douglas Mortensen MD Interventional Cardiology [address] [place] [address] [phone] Chief Complaint Patient presents with: Yearly Exam HISTORY OF PRESENT ILLNESS: Mr. Olivia is a 78 year old male seen in the office for follow-up prior history of hypertensive heart disease and hyperlipidemia with nonobstructive coronary artery disease doing well from the cardiac point of view asymptomatic denies chest pain or shortness of breath Patient is limited because of his Parkinson Cardiac Risk Factors age (male over 45, female over 55), hyperlipidemia, hypertension, family history of CAD PAST MEDICAL HISTORY Diagnosis Date Acquired polycythemia 01/24/2013 Actinic Keratosis (Premalignant AK) 09/05/2010 Acute cholecystitis 08/18/2023 Adenomatous colon polyp 10/09/2014 Anxiety 06/19/2009 BPH loc w/o Ur Obs/LUTS 06/19/2009 Chronic bronchitis (HCC) 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 Clostridium difficile diarrhea 08/21/2021 Enterocolitis due to Clostridium difficile 05/25/2015 Gross hematuria 01/30/2018 Hemarthrosis following procedure 07/23/2021 Right knee s/p TKR Hypertension 05/04/2009 Hyperthyroidism, subclinical 06/19/2009 OA (osteoarthritis) of knee 01/24/2013 Obesity 06/19/2009 Obesity, Class I, BMI 30-34.9 10/19/2017 Other chest pain Sandrita Mortensen MD. Cath [facility] 08/20/2020. 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 11/17/2021 PAST SURGICAL HISTORY Procedure Laterality Date COLONOSCOPY AND POLYPECTOMY 01/13/2017 COLONOSCOPY AND POLYPECTOMY 04/26/2022 COLONOSCOPY FLX DX W/COLLJ SPEC WHEN PFRMD 10/01/2014 Colonoscopy F COLONOSCOPY WITH BIOPSY 10/12/2018 biopsy negative, repeat 5 years L'SCOPE CHOLECYSTECTOMY 08/18/2023 LAP - RADICAL NEPHRECTOMY Left 02/16/2022 LAP STOMA CLOSURE, ILEOSTOMY 04/13/2015 closure of loop ileostomy LEFT HEART CATH,PERCUTANEOUS 08/20/2020 PAST SURGICAL HISTORY OF 03/1973 Right 4th digit reattachment PAST SURGICAL HISTORY OF 01/01/2015 Rectal/sigmoid resection RHINP PRIM LATANDALAR CRTLGSAND/ELVTN NASAL TI 1954 Rhinoplasty, nasal fracture TONSILLECTOMY PRIMARY/SECONDARY Tonsillectomy TOTAL HIP JOINT REPLACEMENT Right 01/12/2018 TOTAL KNEE REPLACEMENT Right 07/21/2021 TRANSURETHRAL ELEC-SURG PROSTATECTOM 05/14/2021 FAMILY HISTORY Problem Relation Age of Onset Psychiatry Mother Anxiety COPD Mother Heart Mother Heart failure, age 94 other (Other) Mother Parkinson's Cancer Father lung cancer, age 86 Psychiatry Sister Panic attacks Emphysema Maternal Grandfather 50 years working on [employer], coal smoke inhalation. Asthma Maternal Grandfather Colon Cancer Other Maternal 1st cousin age 40s Social History Tobacco Use Smoking status: Former Current packs/day: 0.00 Average packs/day: 2.0 packs/day for 35.0 years (70.0 ttl pk-yrs) Types: Cigarettes Start date: 1964 Quit date: 07/05/1998 Years since quittin.7 Smokeless tobacco: Never Vaping Use Vaping status: Never Used Substance Use Topics Alcohol use: No Drug use: No ALLERGIES No Known Allergies Medications: Current Outpatient Medications Medication Sig Dispense Refill isosorbide mononitrate ER (IMDUR) 30 mg 24 hr tablet Take 1 tablet by mouth once daily. 90 tablet 3 metoprolol tartrate, short acting, (LOPRESSOR) 25 mg tablet Take 1 tablet by mouth two times a day. 180 tablet 3 atorvastatin (LIPITOR) 20 mg tablet Take 1 tablet by mouth daily at bedtime. For cholesterol. 90 tablet 3 PARoxetine (PAXIL) 20 mg tablet Take 1 tablet by mouth once daily. 90 tablet 3 potassium chloride SR (MICRO-K) 10 mEq CR capsule Take 1 capsule by mouth two times a day. 180 capsule 3 carbidopa-levodopa (SINEMET) 25-100 mg per tablet Take 1.5 tablets by mouth three times a day. 405 tablet 1 ketoconazole (NIZORAL) 2 % shampoo Apply to affected area two times a week. Per [facility]. PRN ipratropium bromide (ATROVENT) 42 mcg (0.06 %) nasal spray Use 2 Sprays in the nose four times daily. (Patient taking differently: Use 2 Sprays in the nose as needed.) 15 mL 5 LORazepam (ATIVAN) 1 mg tablet Take 1 tablet by mouth at bedtime as needed for anxiety for up to 90 days. 30 tablet 0 tamsulosin (FLOMAX) 0.4 mg Take 0.4 mg by mouth once daily. methIMAzole (TAPAZOLE) 5 mg tablet Take 1 tablet by mouth once daily. Per Dr. Mayela Murray, endocrinology. No curr (more content not included)...[facility]11-11-2024 History of Present illness Narrative* Douglas Mortensen MD - 04/15/2024 3:48 PM EST Images from the original note were not included. Douglas Mortensen MD Interventional Cardiology [address] [place] [address] [phone] Chief Complaint Patient presents with: Yearly Exam HISTORY OF PRESENT ILLNESS: Mr. Olivia is a 78 year old male seen in the office for follow-up prior history of hypertensive heart disease and hyperlipidemia with nonobstructive coronary artery disease doing well from the cardiacpoint of view asymptomatic denies chest pain or shortness of breath Patient is limited because of his Parkinson Cardiac Risk Factors age (male over 45, female over 55), hyperlipidemia, hypertension, family history of CAD PAST MEDICAL HISTORY Diagnosis Date Acquired polycythemia 01/24/2013 Actinic Keratosis (Premalignant AK) 09/05/2010 Acute cholecystitis 08/18/2023 Adenomatous colon polyp 10/09/2014 Anxiety 06/19/2009 BPH loc w/o Ur Obs/LUTS 06/19/2009 Chronic bronchitis (HCC) 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 Clostridium difficile diarrhea 08/21/2021 Enterocolitis due to Clostridium difficile 05/25/2015 Gross hematuria 01/30/2018 Hemarthrosis following procedure 07/23/2021 Right knee s/p TKR Hypertension 05/04/2009 Hyperthyroidism, subclinical 06/19/2009 OA (osteoarthritis) of knee 01/24/2013 Obesity 06/19/2009 Obesity, Class I, BMI 30-34.9 10/19/2017 Other chest pain Sandrita Mortensen MD. Cath /[facility] 08/20/2020. Other pulmonary embolism with acute cor pulmonale (HCC) 01/30/2018 fall, right hip fracture, right total hip Other pulmonary embolism with acute cor pulmonale (HCC) Panic attacks 2001 previously on Xanax Parkinson's disease (HCC) 11/17/2021 Pulmonary hypertension (HCC) 01/30/2018 Renal cell cancer, left (HCC) 05/05/2022 Seborrheic keratosis 06/19/2009 Stage 3a chronic kidney disease (HCC) 05/19/2023 Thyrotoxicosis without thyroid storm 11/17/2021 PAST SURGICAL HISTORY Procedure Laterality Date COLONOSCOPY & POLYPECTOMY 01/13/2017 COLONOSCOPY & POLYPECTOMY 04/26/2022 COLONOSCOPY FLX DX W/COLLJ SPEC WHEN PFRMD 10/01/2014 Colonoscopy F COLONOSCOPY WITH BIOPSY 10/12/2018 biopsy negative, repeat 5 years L'SCOPE CHOLECYSTECTOMY 08/18/2023 LAP - RADICAL NEPHRECTOMY Left 02/16/2022 LAP STOMA CLOSURE, ILEOSTOMY 04/13/2015 closure of loop ileostomy LEFT HEART CATH,PERCUTANEOUS 08/20/2020 PAST SURGICAL HISTORY OF 03/1973 Right 4th digit reattachment PAST SURGICAL HISTORY OF 01/01/2015 Rectal/sigmoid resection RHINP PRIM LAT&ALAR CRTLGS&/ELVTN NASAL TI 1954 Rhinoplasty, nasal fracture TONSILLECTOMY PRIMARY/SECONDARY <AGE 12 1956 Tonsillectomy TOTAL HIP JOINT REPLACEMENT Right 01/12/2018 TOTAL KNEE REPLACEMENT Right 07/21/2021 TRANSURETHRAL ELEC-SURG PROSTATECTOM 05/14/2021 FAMILY HISTORY Problem Relation Age of Onset Psychiatry Mother Anxiety COPD Mother Heart Mother Heart failure, age 94 other (Other) Mother Parkinson's Cancer Father lung cancer, age 86 Psychiatry Sister Panic attacks Emphysema Maternal Grandfather 50 years working on [employer], coal smoke inhalation. Asthma Maternal Grandfather Colon Cancer Other Maternal 1st cousin age 40s Social History Tobacco Use Smoking status: Former Current packs/day: 0.00 Average packs/day: 2.0 packs/day for 35.0 years (70.0 ttl pk-yrs) Types: Cigarettes Start date: 1964 Quit date: 07/05/1998 Years since quittin.7 Smokeless tobacco: Never Vaping Use Vaping status: Never Used Substance Use Topics Alcohol use: No Drug use: No ALLERGIES No Known Allergies Medications: Current Outpatient Medications Medication Sig Dispense Refill isosorbide mononitrate ER (IMDUR) 30 mg 24 hr tablet Take 1 tablet by mouth once daily. 90 tablet 3 metoprolol tartrate, short acting, (LOPRESSOR) 25 mg tablet Take 1 tablet by mouth two times a day.180 tablet 3 atorvastatin (LIPITOR) 20 mg tablet Take 1 tablet by mouth daily at bedtime. For cholesterol. 90 tablet 3 PARoxetine (PAXIL) 20 mg tablet Take 1 tablet by mouth once daily. 90 tablet 3 potassium chloride SR (MICRO-K) 10 mEq CR capsule Take 1 capsule by mouth two times a day. 180 capsule 3 carbidopa-levodopa (SINEMET) 25-100 mg per tablet Take 1.5 tablets by mouth three times a day. 405 tablet 1 ketoconazole (NIZORAL) 2 % shampoo Apply to affected area two times a week. Per [facility]. PRN ipratropium bromide (ATROVENT) 42 mcg (0.06 %) nasal spray Use 2 Sprays in the nose four times daily. (Patient taking differently: Use 2 Sprays in the nose as needed.) 15 mL 5 LORazepam (ATIVAN) 1 mg tablet Take 1 tablet by mouth at bedtime as needed for anxiety for up to 90days. 30 tablet 0 tamsulosin (FLOMAX) 0.4 mg Take 0.4 mg by mouth once daily. methIMAzole (TAPAZOLE) 5 mg tablet Take 1 tablet by mouth once daily. Per Dr. Mayela Murray, endocrinology. No current facility-administered medications for this visit. Review of Systems Constitutional: Negative for chills, diaphoresis, fever, malaise/fatigue and weight loss. HENT: Negative for congestion, ear discharge, ear pain, hearing loss, nosebleeds, sinus pain, sore throat and tinnitus. Eyes: Negative for blurred vision, double vision, photophobia, pain, discharge and redness. Respiratory: Negative for cough, hemoptysis, sputum production, shortness of breath, wheezing and stridor. Cardiovascular: Negative for chest pain, palpitations, orthopnea, claudication, leg swelling and PND. Gastrointestinal: Negative for abdominal pain, blood in stool, constipation, diarrhea, heartburn, melena, nausea and vomiting. Genitourinary: Negative for dysuria, flank pain, frequency, hematuria and urgency. Musculoskeletal: Negative for back pain, falls, joint pain, myalgias and neck pain. Skin: Negative for itching and rash. Neurological: Negative for dizziness, tingling, tremors, sensory change, speech change, focal weakness, seizures, loss of consciousness, weakness and headaches. Endo/Heme/Allergies: Negative for environmental allergies and polydipsia. Does not bruise/bleed easily. Psychiatric/Behavioral: Negative for depression, hallucinations, memory loss, substance abuse and suicidal ideas. The patient is not nervous/anxious and does not have insomnia. Physical Examination: Vitals:BP 116/60 Pulse 66 Ht 5' 9.75 (1.77m) Wt 186 lb (84.4kg) SpO2 95% BMI 26.87 kg/(m^2). BP w/Orthostatic Vitals Date and Time Orthostatic BP Orthostatic Pulse BP Pulse BP Position BP Site BP Cuff Size 04/15/24 1533 -- -- 116/60 66 -- -- -- Last 2 Encounter Wt Readings: Date: Wt: 04/15/2024 84.4 kg (186 lb) 11/09/2023 83.9 kg (185 lb) Physical Exam Constitutional: General: He is not in acute distress. Appearance: He is not diaphoretic. HENT: Head: Normocephalic and atraumatic. Right Ear: External ear normal. Left Ear: External ear normal. Nose: Nose normal. Mouth/Throat: Pharynx: Oropharynx is clear. Eyes: General: Right eye: No discharge. Left eye: No discharge. Conjunctiva/sclera: Conjunctivae normal. Pupils: Pupils are equal, round, and reactive to light. Cardiovascular: Rate and Rhythm: Normal rate and regular rhythm. Heart sounds: Normal heart sounds, S1 normal and S2 normal. No murmur heard. No friction rub. No gallop. No S3 or S4 sounds. Pulmonary: Effort: Pulmonary effort is normal. No respiratory distress. Breath sounds: Normal breath sounds. No wheezing or rales. Chest: Chest wall: No tenderness. Abdominal: General: Abdomen is flat. Musculoskeletal: General: Normal range of motion. Cervical back: Normal range of motion and neck supple. Skin: General: Skin is warm and dry. Neurological: Mental Status: He is alert and oriented to person, place, and time. Psychiatric: Mood and Affect: Mood normal. Thought Content: Thought content normal. Judgment: Judgment normal. Pertinent Labs: CBC: Hemoglobin (g/dL) Date Value 05/16/2023 16.3 05/17/2021 17.1 Hematocrit (%) Date Value 05/16/2023 48.2 05/17/2021 51.1 WBC (k/uL) Date Value 05/16/2023 5.73 05/17/2021 8.36 Platelet Count (k/uL) Date Value 05/16/2023 116 05/17/2021 138 BMP: Glucose (mg/dL) Date Value 05/16/2023 92 05/17/2021 88 Potassium (mmol/L) Date Value 05/16/2023 4.2 05/17/2021 3.5 Sodium (mmol/L) Date Value 05/16/2023 142 05/17/2021 141 Chloride (mmol/L) Date Value 05/16/2023 104 05/17/2021 100 CO2 (mmol/L) Date Value 05/16/2023 27 05/17/2021 28 Creatinine (mg/dL) Date Value 05/16/2023 1.40 05/17/2021 1.20 BUN (mg/dL) Date Value 05/16/2023 15 05/17/2021 22 Anion Gap (mmol/L) Date Value 05/16/2023 11 05/17/2021 13 Calcium (mg/dL) Date Value 05/17/2021 9.7 Calcium, Total (mg/dL) Date Value 05/16/2023 9.7 INR: Lipid Profile: Cholesterol, Total Date Value Ref Range Status 05/16/2023 109 <200 mg/dL Final Comment: <200 mg/dL, Desirable 200-239 mg/dL, Borderline high >239 mg/dL, High HDL Cholesterol Date Value Ref Range Status 05/16/2023 43 >39 mg/dL Final Comment: 40-59 mg/dL, Acceptable >59 mg/dL, High: Negative risk factor for coronary heart disease <40 mg/dL, Low: Positive risk factor for coronary heart disease LDL Cholesterol Date Value Ref Range Status 05/16/2023 55 <100 mg/dL Final Comment: <100 mg/dL, Optimal 100-129 mg/dL, Near optimal/above optimal 130-159 mg/dL, Borderline high 160-189 mg/dL, High >189 mg/dL, Very high Secondary prevention optimal LDL Cholesterol levels are recommended to be < 70 mg/dL Triglyceride Date Value Ref Range Status 05/16/2023 56 <150 mg/dL Final Comment: <150 mg/dL, Normal 150-199 mg/dL, Borderline high 200-499 mg/dL, High >499 mg/dL, Very high Hemoglobin A1C: No results found for: HGBA1C TSH: No results found for: TSHREFL Prior Cardiac Testing none Assessment and Plan: 78 years old gentleman with mild nonobstructive coronary artery disease and hypertensive heart disease ASSESSMENT/PLAN: 1. Primary hypertension - ICD9: 401.9, ICD10: I10 (primary diagnosis) - Controlled - Continue current medications - Recommend home blood pressure monitoring, to bring results to next visit - Encouraged sodium restriction, DASH or Mediterranean diet - Recommend regular aerobic exercise 2. Hyperlipidemia LDL goal <100 - ICD9: 272.4, ICD10: E78.5 - Controlled - Continue current medications - Counseled on healthy diet and regular exercise 3. Coronary artery disease of [place] artery of [place] heart with stable angina pectoris (HCC) - ICD9: 414.01, 413.9, ICD10: I25.118 Stable with no angina continue medical therapy Douglas Mortensen MD Follow up planning: On year Electronically signed by Douglas Mortensen MD on April 15, 2024, 3:48 PM The above note was partially created using a dictation recognition software. A reasonable attempt has been made to correct any errors. documented in this encounterK[facility]24 [facility] Medical Records Department [address] [place] [id number] History Physical Exam 04/09/24 1223 MR#: [id number] Acct: [id number] Name: ROHAN OLIVIA Rep #: [id number] : 1945 78 From: James Friend PCP: Dr. Brandon Cantor MD Status:[facility] Location: [place] [address] History and Physical Date of Admission: 04/09/24 Chief Complaint: Hyperthyroidism Details: ROHAN OLIVIA, is a 78 M who presents to the office today for follow up. [facility] ED 11.14.21 with suspicion of repeat pseudomembranous enterocolitis. Prior imaging: CT abd/pel 01.06.22 for abdominal pain/ renal cancer finding multiple gallstones; multiple hypodensities of liver; evidence of prior small bowel surgery; renal mass, recommend MRI/CT. *BGI established 03.01.22 with watery loose stools, abdominal cramping and weight loss for a year. Weight loss largely r/t several hospitalizations for kidney, prostate and knee surgeries; since these have stabilized weight has been trending upward. CDI history 2014+, +, negative. Colonoscopy 04.26.22 eight sessile TA polyps; end-to-end colo-colonic anastomosis, patent; congested mucosa of colon; extensive stool in cecum; TI moderate stenosis, balloon 15mm, resolved; diverticulosis; melanosis coli on pathology. OV 05.10.22 loose stool resolved following polypectomy; one episode which he feels was r/t excessive chocolate. OV 06.23.22 with return of loose stools three times a week with cramping and nocturnal presence. Notes some dietary triggers. ? Biochemical CBC, ESR, CMP, LDH, CRP, GAME, NICOLE comp, celiac without pertinent abnormality. ? AST L13-ALT O22-FJ84, apANCA H1:160 ? Stool calprotectin, lactoferrin, C.difficile WNL OV 09.02.22 with spontaneous improvement of loose stools; though continues with nocturnal cramping and loose stools several times a week. Start Lomotil. Contact 09.27.22 with ongoing cramping, start dicyclomine. Contact 10.14.22 for update; reports ongoing loose stools, particularly nocturnal. Reports 18inches of bowel removed to address benign tumor. Has increased dicyclomine to 20mg QHS. Start colestipol. Call back in two weeks with update. Contact 10.28.22 increase colestipol to 2g QHS. Contact 11.16.22 Bowels have been fluctuating between soft stools with intermittent episodes of loose stools; this is improved from previously, continue colestipol 2g QHS. ? Biochemical Crohn???s (apANCA, Marvin), Vasculitis profile abnormality ? Capsule endoscopy 01.12.23 multiple sites of bleeding noted in stomach. Capsule did not leave stomach during exam. EGD 02.02.2323 Grade I upper EV; LA Grade B esophagitis, metaplasia +; Schatzki ring, Sav[place] 45F; retained gastric content; gastritis; pyloric stenosis, mild and traversed; extrinsic deformity of duodenal bulb, gastric metaplasia Biochemical 02.02.23 gastrin WNL GET 02.21.23 242.4minutes (12-56) Contact, VM 02.27.23 requesting callback. Upper esophageal varices are indicative of cardiac disease; follows with Dr. Balbina Landeros???s esophagus is positive, recommend continuing PPI. Dr. Mortensen updated 03.02.23. Gastroparesis is noted and likely r/t pyloric stenosis, needs repeat EGD with Botox. EGD 04.19.23 LA Grade A esophagitis; small hiatal hernia; pyloric stenosis, TTS dilator 15mm; food residue gastric body, Botox; upper esophageal varices, Grade I; single 5mm AVM. No specimens OV 06.14.23- Pt doing well since last visit. Still wakes up in the night with diarrhea but only a few times a week now. Minimal abdominal pain. Is not having heartburn or trouble swallowing. OV 12.14.23 pt reports that he is feeling well overall. Pt states that about 6 weeks ago he stopped having diarrhea and is now having 1-2 soft bm per day; denies blood in the stool. Pt reports that he had a cholecystectomy on 08.18.23 and has been feeling well since. Continues with cholestyramine and pantoprazole. ROS Const Constitutional: No fatigue, fever(s) or weight change ENT ENT: No difficulty swallowing Gastro GI: No abdominal pain, belching, bloating, change in bowel habits, change in stool character, coffee ground emesis, constipation, cramping, diarrhea, heartburn, difficulty swallowing, feeling full early, excessive flatus, incontinent of stools, Vomiting blood/hematemesis, Blood in stool, loose stools, Black,tarry stools, nausea/dyspepsia, pain with swallowing, vomiting or other Musc Musculoskeletal: No joint pain Skin Skin: No yellowing of the eye or itchy eyes Psych Psychiatric: No anxiety and No depression Endo Endocrine: No fatigue or weight change Aller/Imm Allergy/Immunologic: No itchy eyes Goyo/Lymp Hematologic/Lymphatic: (more content not included)...[facility] 04-01-2024 Telephone encounter Note* Telephone Encounter - Lisa Arreaga - 04/01/2024 11:29 AM EDT Prescription Refill Information The patient has been identified by name and date of : Yes Caregiver verified no other encounters exist for this prescription request: Yes Caregiver confirmed with patient/requestor that no other refills are due, in the near future, with this provider at this time: Yes The last office visit in the department: 11-09-23 Does the patient have a future office visit with this provider/department: Yes Requested Prescriptions Pending Prescriptions Disp Refills isosorbide mononitrate ER (IMDUR) 30 mg 24 hr tablet 90 tablet 3 Sig: Take 1 tablet by mouth once daily. metoprolol tartrate, short acting, (LOPRESSOR) 25 mg tablet 180 tablet 3 Sig: Take 1 tablet by mouth two times a day. Lisa Marin April 01, 2024 11:30 AM [facility]10-28-[facility]24 Miscellaneous Notes* Telephone Encounter - Lisa Arreaga - 04/01/2024 11:29 AM EDT Prescription Refill Information The patient has been identified by name and date of : Yes Caregiver verified no other encounters exist for this prescription request: Yes Caregiver confirmed with patient/requestor that no other refills are due, in the near future, with this provider at this time: Yes The last office visit in the department: 11-09-23 Does the patient have a future office visit with this provider/department: Yes Requested Prescriptions Pending Prescriptions Disp Refills isosorbide mononitrate ER (IMDUR) 30 mg 24 hr tablet 90 tablet 3 Sig: Take 1 tablet by mouth once daily. metoprolol tartrate, short acting, (LOPRESSOR) 25 mg tablet 180 tablet 3 Sig: Take 1 tablet by mouth two times a day. Lisa Marin April 01, 2024 11:30 AM documented in this encounterK[facility]10-18-2024 NoteHNO ID: [id number] Author: DAV DE SANTIAGO MA Service: ? Author Type: Drill Press Hand Type: Progress Notes Filed: 03/22/2024 14:34 Note Text: POPULATION HEALTH NAVIGATION OUTREACH Action/FYI Patient responded via [employer] and states that he is having this done 04/26/24 - appears to be outside [facility]. Reminded patient to have provider forward report to PCP. Reason for Outreach Returned Call/MyChart Patient Contacted: Spoke to patient/parent/or legal guardian Patient identified by name and date of : Yes Returned call/MyChart actions taken: No action required Navigation Signature: Dav De Santiago MA March 22, 2024 2:33 [facility]10-18-2024 History of Present illness Narrative* Dav De Santiago MA - 03/22/2024 2:33 PM EDT POPULATION HEALTH NAVIGATION OUTREACH Action/FYI Patient responded via [employer] and states that he is having this done 04/26/24 - appears to be outside [facility]. Reminded patient to have provider forward report to PCP. Reason for Outreach Returned Call/MyChart Patient Contacted: Spoke to patient/parent/or legal guardian Patient identified by name and date of : Yes Returned call/MyChart actions taken: No action required Navigation Signature: Dav De Santiago MA March 22, 2024 2:33 PM * Dav De Santiago MA - 03/22/2024 1:12 PM EDT POPULATION HEALTH NAVIGATION OUTREACH Action/FYI Patient is on [facility] CURRENT [facility] Workbench list for below and needs appointment to address: Depression Screening Colorectal Cancer Screening Advance Directive Discussion Covid-19 Vaccine() Hemoglobin A1C (%) Date Value 03/10/2017 5.6 Patient due for: Colorectal Cancer Screening - [facility] Active: Yes Left message for patient to call back. Sent [employer] message. AWV already scheduled Reason for Outreach Care Gap/HCC or Scheduling Wellness Visits Care Gaps due: Colorectal Cancer Screening Patient Contacted: Unable or unnecessary to reach patient: Left message Streamfile message sent HCC related Navigation Signature: Dav De Santiago MA March 22, 2024 1:12 PM documented in this encounterK[facility]10-18-2024 NoteHNO ID: [id number] Author: DAV DE SANTIAGO MA Service: ? Author Type: Drill Press Hand Type: Progress Notes Filed: 03/22/2024 13:15 Note Text: POPULATION HEALTH NAVIGATION OUTREACH Action/FYI [facility] for below and needs appointment to address: Depression Screening Colorectal Cancer Screening Advance Directive Discussion Covid-19 Vaccine() Hemoglobin A1C (%) Date Value 03/10/2017 5.6 Patient due for: Colorectal Cancer Screening - [facility] Active: Yes Left message for patient to call back. Sent [employer] message. AWV already scheduled Reason for Outreach Care Gap/HCC or Scheduling Wellness Visits Care Gaps due: Colorectal Cancer Screening Patient Contacted: Unable or unnecessary to reach patient: Left message Streamfile message sent HCC related Navigation Signature: Dav De Santiago MA March 22, 2024 1:12 [facility]10-18-2024 NotePatient Outreach (NETNAV) CORWINROHAN ([id number]) 1945 M Date Time Provider Department 03/22/24 DAV DE SANTIAGO During your visit today, we recorded the following information about you: Dav De Santiago MA 03/22/2024 1:15 PM Signed POPULATION HEALTH NAVIGATION OUTREACH Action/FYI [facility] for below and needs appointment to address: Depression Screening Colorectal Cancer Screening Advance Directive Discussion Covid-19 Vaccine( season) Hemoglobin A1C (%) Date Value 03/10/2017 5.6 Patient due for: Colorectal Cancer Screening - [facility] [employer] Active: Yes Left message for patient to call back. Sent Eltechs message. AWV already scheduled Reason for Outreach Care Gap/HCC or Scheduling Wellness Visits Care Gaps due: Colorectal Cancer Screening Patient Contacted: Unable or unnecessary to reach patient: Left message Loomiot message sent HCC related Navigation Signature: Dav De Santiago MA March 22, 2024 1:12 PM Dav De Santiago MA 03/22/2024 2:34 PM Signed POPULATION HEALTH NAVIGATION OUTREACH Action/FYI Patient responded via Eltechs and states that he is having this done 04/26/24 - appears to be outside [facility]. Reminded patient to have provider forward report to PCP. Reason for Outreach Returned Call/MyChart Patient Contacted: Spoke to patient/parent/or legal guardian Patient identified by name and date of : Yes Returned call/MyChart actions taken: No action required Navigation Signature: Dav De Santiago MA March 22, 2024 2:33 PM Allergies As of Date: 03/22/2024 (No Known Allergies) Date Reviewed: 03/11/2024 Reviewed by: Daja Huerta, SAADIA - Fully Assessed Reason for Visit: Population Health Navigation Outreach [3910] [facility] Prescriptions as of 03/22/2024 - atorvastatin (LIPITOR) 20 mg tablet Take 1 tablet by mouth daily at bedtime. For cholesterol. - PARoxetine (PAXIL) 20 mg tablet Take 1 tablet by mouth once daily. - potassium chloride SR (MICRO-K) 10 mEq CR capsule Take 1 capsule by mouth two times a day. - carbidopa-levodopa (SINEMET) 25-100 mg per tablet Take 1.5 tablets by mouth three times a day. - ketoconazole (NIZORAL) 2 % shampoo Apply to affected area two times a week. Per [facility] PRN - ipratropium bromide (ATROVENT) 42 mcg (0.06 %) nasal spray Use 2 Sprays in the nose four times daily. - isosorbide mononitrate ER (IMDUR) 30 mg 24 hr tablet Take 1 tablet by mouth once daily. - metoprolol tartrate, short acting, (LOPRESSOR) 25 mg tablet Take 1 tablet by mouth two times a day. - LORazepam (ATIVAN) 1 mg tablet Take 1 tablet by mouth at bedtime as needed for anxiety for up to 90 days. - tamsulosin (FLOMAX) 0.4 mg Take 0.4 mg by mouth once daily. - methIMAzole (TAPAZOLE) 5 mg tablet Take 1 tablet by mouth once daily. Per Dr. Mayela Murray, endocrinology. - Cholecalciferol, Vitamin D3, 25 mcg (1,000 unit) cap Take 1,000 Units by mouth once daily. 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] 06/19/2009 OA (osteoarthritis) of knee [M17.9] 01/24/2013 Acquired polycythemia [D75.1] 01/24/2013 Hyperlipidemia LDL goal <100 [E78.5] 10/09/2014 Ileus, postoperative (HCC) [K91.89, K56.7] 01/09/2015 07/22/2015 Enterocolitis due to Clostridium difficile [A04*05/25/2015 10/22/2015 Irritable bowel syndrome with diarrhea [K58.0] 10/22/2015 Flatulence [R14.3] 04/21/2016 03/16/2017 Elevated prostate specific antigen (PSA) [R97.2*04/22/2016 Idiopathic peripheral neuropathy [G60.9] 10/20/2016 Dyspnea on exertion [R06.09] 10/19/2017 09/13/2018 Obesity, Class I, BMI 30-34.9 [E66.811] 10/19/2017 11/04/2022 Other pulmonary embolism with acute cor pulmona*01/30/2018 09/13/2018 Pulmonary hypertension (HCC) [I27.20] 01/30/2018 09/13/2018 Gross hematuria [R31.0] 01/30/2018 09/13/2018 Chronic midline low back pain without sciatica *04/23/2019 Cervicalgia [M54.2] 04/23/2019 Melanoma in situ of unspecified part of face (H*07/04/[address] on [address] [R91.8] 02/26/2020 Other chest pain [R07.89] 08/10/2020 09/14/2020 Coronary artery disease of [place] artery of [place]*08/24/2020 Unsteady gait [R26.81] 02/15/2021 Tremors of nervous system [R25.1] 07/10/2021 11/17/2021 Chronic diarrhea [K52.9] 11/17/2021 Abnorm (more content not included)...[facility]10-07-2024 Note HNO ID: [id number] Author: DEBRA CASTREJON, ? Service: ? Author Type: Physician Type: Progress Notes Filed: 03/11/2024 21:53 Note Text: Subjective: Patient presents to clinic c/o painful toenails. They state that the nails are especially painful with shoe gear and pressure. Patient states that nails 1-5 b/l are painful. No other pedal complaints at this time. Patient states no change in medications or medical history since last visit. Objective: Patient presents to clinic ambulating in [facility] Vasc: DP and PT pulses are palpable bilateral. CFT is less than 5 seconds bilateral. Skin temperature is warm to cool proximal to distal bilateral. There is mild edema or varicosities noted. Neuro: Protective sensation is intact to the foot and toes when tested with the 5.07 SWM bilateral. Vibratory sensation is decreased at the hallux IPJ bilateral. The hallux is downgoing bilateral. Derm: Nails 1-5 b/l are painful, discolored-yellow, thick, crumbly, dystrophic and with subungal debris. Skin is of normal turgor, texture and hair growth is present bilateral. There are no hyperkeratosis, ulcerations, scars, verruca or other lesions noted. Ortho: Muscle strength is 5/5 for all pedal groups tested. Ankle joint DF is full with the knee extended with no pain or crepitus noted. 1st MPJ ROM is full bilateral. Assessment: (B35.1) Onychomycosis (primary encounter diagnosis) (M79.675) Pain in toe of left foot (M79.674) Pain in toe of right foot Plan: Patient was seen and evaluated. Nails 1-5 bilateral were debrided in length and thickness. Patient is to RTC in 3-4 months. Debra Castrejon [facility]10-07-2024 History of Present illness Narrative* Lucía Debra - 03/11/2024 2:26 PM EDT Subjective: Patient presents to clinic c/o painful toenails. They state that the nails are especially painful with shoe gear and pressure. Patient states that nails 1-5 b/l are painful. No other pedal complaints at this time. Patient states no change in medications or medical history since last visit. Objective: Patient presents to clinic ambulating in [facility] Vasc: DP and PT pulses are palpable bilateral. CFT is less than 5 seconds bilateral. Skin temperature is warm to cool proximal to distal bilateral. There is mild edema or varicosities noted. Neuro: Protective sensation is intact to the foot and toes when tested with the 5.07 SWM bilateral.Vibratory sensation is decreased at the hallux IPJ bilateral. The hallux is downgoing bilateral. Derm: Nails 1-5 b/l are painful, discolored-yellow, thick, crumbly, dystrophic and with subungal debris. Skin is of normal turgor, texture and hair growth is present bilateral. There are no hyperkeratosis, ulcerations, scars, verruca or other lesions noted. Ortho: Muscle strength is 5/5 for all pedal groups tested. Ankle joint DF is full with the knee extended with no pain or crepitus noted. 1st MPJ ROM is full bilateral. Assessment: (B35.1) Onychomycosis (primary encounter diagnosis) (M79.675) Pain in toe of left foot (M79.674) Pain in toe of right foot Plan: Patient was seen and evaluated. Nails 1-5 bilateral were debrided in length and thickness. Patient is to RTC in 3-4 months. Debra Castrejon DPM * Daja Huerta RN - 03/11/2024 2:20 PM EDT AMB ROOMING INTAKE FLOWSHEET DATA Pain Pain Level: 3 Pain Location: Foot-Right Comments: States bunion pain Patient presents with: Left Foot - Established Patient, Follow Up, nail care Right Foot - Established Patient, Follow Up, nail care Patient presents for follow up nail care. [facility] 12[facility]04[facility]23 [facility] NoteHNO ID: [id number] Author: DAJA HUERTA RN Service: ? Author Type: Registered Nurse Type: Progress Notes Filed: 03/11/2024 21:53 Note Text: AMB ROOMING INTAKE FLOWSHEET DATA Pain Pain Level: 3 Pain Location: Foot-Right Comments: States bunion pain Patient presents with: Left Foot - Established Patient, Follow Up, nail care Right Foot - Established Patient, Follow Up, nail care Patient presents for follow up nail care. [facility] 12/04/23[facility]09-[facility] Telephone encounter Note* Telephone Encounter - Jyoti Dougherty LPN - 02/20/2024 9:26 AM EDT Tried calling patient no answer, mychart message sent. Jyoti Doughrety LPN February 20, 2024 9:26 AM [facility]09-17-2024 Miscellaneous Notes* Telephone Encounter - Jyoti Dougherty LPN - 02/20/2024 9:26 AM EDT Tried calling patient no answer, mychart message sent. Jyoti Dougherty LPN February 20, 2024 9:26 AM documented in this encounterK[facility]-2024 Telephone encounter Note * Telephone Encounter - Jenniffer Oakley - 01/29/2024 9:53 AM EDT .Prescription Refill Information The patient has been identified by name and date of : Yes Caregiver verified no other encounters exist for this prescription request: Yes Caregiver confirmed with patient/requestor that no other refills are due, in the near future, with this provider at this time: Yes The last office visit in the department: 11/09/23 Does the patient have a future office visit with this provider/department: Yes Requested Prescriptions Pending Prescriptions Disp Refills atorvastatin (LIPITOR) 20 mg tablet 90 tablet 3 Sig: Take 1 tablet by mouth daily at bedtime. For cholesterol. Jenniffer Marin January 29, 2024 9:54 AM [facility]08-26-2024 Miscellaneous Notes* Telephone Encounter - Jenniffer Oakley - 01/29/2024 9:53 AM EDT .Prescription Refill Information The patient has been identified by name and date of : Yes Caregiver verified no other encounters exist for this prescription request: Yes Caregiver confirmed with patient/requestor that no other refills are due, in the near future, with this provider at this time: Yes The last office visit in the department: 11/09/23 Does the patient have a future office visit with this provider/department: Yes Requested Prescriptions Pending Prescriptions Disp Refills atorvastatin (LIPITOR) 20 mg tablet 90 tablet 3 Sig: Take 1 tablet by mouth daily at bedtime. For cholesterol. Jenniffer Lee Pss January 29, 2024 9:54 AM documented in this encounterK[facility]08-[facility]-2024 NoteHNO ID: [id number] Author: DAV DE SANTIAGO MA Service: ? Author Type: Drill [employer] Hand Type: Progress Notes Filed: 01/22/2024 12:06 Note Text: [facility] History of Present illness Narrative* Dav De Santiago MA - 01/22/2024 8:33 AM EDT Error documented in this encounterK[facility]07-[facility]-2024 History of Present illness Narrative* Debra Castrejon - 12/04/2023 2:45 PM EDT Subjective: Patient presents to clinic c/o painful toenails. They state that the nails are especially painful with shoe gear and pressure. Patient states that nails 1-5 b/l are painful. No other pedal complaints at this time. Patient states no change in medications or medical history since last visit. Objective: Patient presents to clinic ambulating in [facility] Vasc: DP and PT pulses are faintly palpable bilateral. CFT is less than 5 seconds bilateral. Skin temperature is warm to cool proximal to distal bilateral. There is mild edema or varicosities noted. Neuro: Protective sensation is intact to the foot and toes when tested with the 5.07 SWM bilateral.Vibratory sensation is decreased at the hallux IPJ bilateral. The hallux is downgoing bilateral. Derm: Nails 1-5 b/l are painful, discolored-yellow, thick, crumbly, dystrophic and with subungal debris. Skin is of normal turgor, texture and hair growth is decreased bilateral. There are no hyperkeratosis, ulcerations, scars, verruca or other lesions noted. Ortho: Muscle strength is 5/5 for all pedal groups tested. Ankle joint DF is decreased with the knee extended with no pain or crepitus noted. 1st MPJ ROM is decreased bilateral. Assessment: (B35.1) Onychomycosis (primary encounter diagnosis) (M79.675) Pain in toe of left foot (M79.674) Pain in toe of right foot Plan: Patient was seen and evaluated. Nails 1-5 bilateral were debrided in length and thickness. Patient is to RTC in 3-4 months. Debra Castrejon DPM * Daja Huerta RN - 12/04/2023 2:26 PM EDT Patient presents with: Left Foot - Established Patient, Follow Up, nail care Right Foot - Established Patient, Follow Up, nail care Patient presents for follow up nail care. [facility] 08/17/23 documented in this encounterK[facility]06-[facility] History of Present illness Narrative* Dav De Santiago MA - 11/22/2023 8:13 AM EDT POPULATION HEALTH NAVIGATION OUTREACH Action/FYI Patient is on [facility] CURRENT [employer] list for below and needs appointment to address: Colorectal Cancer Screening Advance Directive Discussion Behavioral Health Screening Hemoglobin A1C (%) Date Value 03/10/2017 5.6 Patient due for: Colorectal Cancer Screening Advance Directives Left message for patient to call back. Sent Mobivityhart message. AWV already scheduled - Updated notes to address due care gap and HCC gap closure Reason for Outreach Care Gap/HCC or Scheduling Wellness Visits Care Gaps due: Colorectal Cancer Screening Advance Directives Patient Contacted: Unable or unnecessary to reach patient: Left message MyChart message sent HCC related Navigation Signature: Dav De Santiago MA November 22, 2023 8:14 AM documented in this encounterK[facility]06-[facility]-2024 History of Present illness Narrative* Brandon Cantor MD - 11/09/2023 1:51 PM EDT This note was created using NoteWriter. Subjective Rohan Olivia Jr. is a 78 year old male. He had cholecystectomy with good results. His Parkinson'swas stable. He mentioned tearing while eating. was concerned about his hearing, as he has been asking for repeated statements. Dr. Marquis Murray felt his thyroid was stable, and can be monitored here. Review of Systems Constitutional: Negative for fatigue and unexpected weight change. HENT: Positive for hearing loss. Negative for ear discharge and ear pain. Eyes: Negative for visual disturbance. Respiratory: Negative for cough and shortness of breath. Cardiovascular: Negative for chest pain, palpitations and leg swelling. Gastrointestinal: Negative for constipation, diarrhea, nausea and vomiting. Genitourinary: Negative. 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 Acquired Polycythemia Hyperlipidemia Ldl Goal <100 Irritable Bowel Syndrome With Diarrhea Elevated Prostate Specific Antigen (Psa) Idiopathic Peripheral Neuropathy Chronic Midline Low Back Pain Without Sciatica Cervicalgia Melanoma in Situ of Unspecified Part of Face (Hcc) Multiple Lung Nodules On CT Coronary Artery Disease of [place] Artery of [place] Heart With Stable Angina Pectoris (Hcc) Unsteady Gait Chronic Diarrhea Parkinson's Disease (Hcc) Renal Cell Cancer, Left (Hcc) Vasomotor Rhinitis Platelets Decreased (Hcc) Stage 3a Chronic Kidney Disease (Hcc) Social History Tobacco Use Smoking status: Former Packs/day: 2.00 Years: 35.00 Additional pack years: 0.00 Total pack years: 70.00 Types: Cigarettes Start date: 1964 Quit date: 07/05/1998 Years since quittin.3 Smokeless tobacco: Never Vaping Use Vaping Use: Never used Substance Use Topics Alcohol use: No Drug use: No Current Outpatient Medications Medication Sig potassium chloride SR (MICRO-K) 10 mEq CR capsule Take 1 capsule by mouth two times a day. carbidopa-levodopa (SINEMET) 25-100 mg per tablet Take 1.5 tablets by mouth three times a day. ketoconazole (NIZORAL) 2 % shampoo Apply to affected area two times a week. Per [facility]. ipratropium bromide (ATROVENT) 42 mcg (0.06 %) nasal spray Use 2 Sprays in the nose four times daily. isosorbide mononitrate ER (IMDUR) 30 mg 24 hr tablet Take 1 tablet by mouth once daily. metoprolol tartrate, short acting, (LOPRESSOR) 25 mg tablet Take 1 tablet by mouth two times a day. atorvastatin (LIPITOR) 20 mg tablet Take 1 tablet by mouth daily at bedtime. For cholesterol. LORazepam (ATIVAN) 1 mg tablet Take 1 tablet by mouth at bedtime as needed for anxiety for up to 90days. PARoxetine (PAXIL) 20 mg tablet Take 1 tablet by mouth once daily. tamsulosin (FLOMAX) 0.4 mg Take 0.4 mg by mouth once daily. methIMAzole (TAPAZOLE) 5 mg tablet Take 1 tablet by mouth once daily. Per Dr. Mayela Murray, endocrinology. Cholecalciferol, Vitamin D3, 25 mcg (1,000 unit) cap Take 1,000 Units by mouth once daily. (Patientnot taking: Reported on 11/09/2023) No current facility-administered medications for this visit. Objective BP 118/62 (BP Site: Left Arm, BP Position: Sitting, BP Cuff Size: Large Adult) Pulse (!) 52 Temp 36.8 C (98.3 F) (Temporal) Resp 20 Wt 83.9 kg (185 lb) BMI 26.74 kg/m Physical Exam HENT: Right Ear: Tympanic membrane normal. There is impacted cerumen. Left Ear: Tympanic membrane normal. Cardiovascular: Rate and Rhythm: Regular rhythm. Bradycardia present. Heart sounds: No murmur heard. No gallop. Pulmonary: Effort: No respiratory distress. Breath sounds: No wheezing or rales. Abdominal: Palpations: Abdomen is soft. Tenderness: There is no abdominal tenderness. Musculoskeletal: Right lower leg: No edema. Left lower leg: No edema. Neurological: General: No focal deficit present. Mental Status: He is alert. Mental status is at baseline. Gait: Gait abnormal. Comments: Using quad cane. Assessment and Plan 1. Bilateral hearing loss, unspecified hearing loss type - ICD9: 389.9, ICD10: H91.93 (primary diagnosis) Refer to [facility]. - CONSULT TO ENT 2. Parkinson's disease, unspecified whether dyskinesia present, unspecified whether manifestations fluctuate (HCC) - ICD9: 332.0, ICD10: G20.A1 Scheduled to see Dr. Pearson. 3. Anxiety - ICD9: 300.00, ICD10: F41.9 Stable. - PAROXETINE 20 MG TABLET 4. Primary hypertension - ICD9: 401.9, ICD10: I10 - Controlled - COMPREHENSIVE METABOLIC PANEL - LIPID PANEL BASIC - COMPLETE BLOOD COUNT 5. Thyrotoxicosis without thyroid storm, unspecified thyrotoxicosis type - ICD9: 242.90, ICD10: E05.90 - THYROID STIMULATING HORMONE - T4 FREE/FREE THYROXINE 6. Need for COVID-19 vaccine - ICD9: V04.89, ICD10: Z23 - [employer] COVID-19 VACCINE ( SEASON) AGE 12+ YR Brandon Cantor MD documented in this encounterK[facility]03-18-2024 Discharge summary Author Daja Monsivais [facility] August 21, 2023 11:08am Note Date/Time August 21, 2023 10: 49am [facility] Medical Records Department [address] [place] [id number] Discharge Summary 08/21/23 1043 MR#: [id number] Acct: [id number] Name: ROHAN OLIVIA Rep #:[id number] : 1945 78 From: Daja VERA PA-C PCP: Dr. Brandon Cantor MD Status:A DM IN Location: [facility] [id number] Providers Date of Admission: 08/20/23 Primary Care Physician: Dr. Brandon Cantor MD Reason For Visit: ACUTE CHOLECYSTITIS Diagnosis Discharge Diagnosis (1) Acute calculous cholecystitis: Status: Acute Code(s): K80.00 - Calculus of gallbladder with acute cholecystitis without obstruction (2) Constipation: Status: Acute Code(s): K59.00 - Constipation, unspecified (3) Acute urinary retention: Status: Inactive Code(s): R33.8 - Other retention of urine (4) Weakness: Status: Acute Code(s): R53.1 - Weakness (5) Hypoxia: Status: Acute Code(s): R09.02 - Hypoxemia Medications at Discharge Home Medications metoprolol tartrate 25 mg tablet 25 mg PO DAILY heart 04/15/21 potassium chloride 10 mEq capsule,extended release 10 meq PO BID supplement 04/15/21 cholecalciferol (vitamin D3) 25 mcg (1,000 unit) tablet (Vitamin D3) 25 mcg PO DAILY health maintenance 07/07/21 carbidopa 25 mg-levodopa 100 mg tablet 1 tab PO TID PARKINSONS 10/18/21 isosorbide mononitrate 30 mg tablet,extended release 24 hr 30 mg PO DAILY ACJLHY20/16/22 lorazepam 1 mg tablet (Ativan) 1 mg PO DAILY PRN Anxiety 12/01/21 paroxetine HCl 20 mg tablet 20 mg PO DAILY DEPRESSION 12/07/21 atorvastatin 20 mg tablet 20 mg PO QHS CHOLESTEROL 02/08/22 methimazole 5 mg tablet 5 mg PO DAILY THYROID #30 tabs 03/09/23 cholestyramine (with sugar) 4 gram oral powder 1 g PO HS #348.6 grams 06/14/23 pantoprazole 40 mg tablet,delayed release 40 mg PO DAILY 30 days #30 tabs 06/14/23 tramadol 50 mg tablet 50 mg PO Q6H PRN pain #10 tabs 08/18/23 tamsulosin 0.4 mg capsule 0.4 mg PO QHS #14 caps 08/21/23 Hospital Course Operations cholecystecomy (Laparoscopic cholecystectomy with cholangiograms, placement of NIRAV) Summary of Care Provided Minutes Spent on Discharge: 30 Hospital Course: Patient presented to the ED with abdominal pain. He was found to have acute cholecystitis. Dr. Parsons performed a Laparoscopic cholecystectomy with cholangiograms, placement of NIRAV on 08/18/23. Patient tolerated the procedure well. Patient had an uneventful hospitalization. Upon discharge, patient continued to have a Crawford catheter in place as he had urinary retention. Patientwas discharged with Crawford catheter in place and instructed to continue Flomax athome and he will return to our office on Monday at 07:45 AM to have the Foleycatheter removed. He was tolerating a diet upon discharge. He denies nausea, vomiting, fever. He denies abdominal incisional pain. Physical Exam GI normal to inspection, nondistended, normoactive bowel sounds, soft to palpation and non-tender GI Narrative: Abdomen- incisions c/d/i. No erythema or infection noted. Weight / BMI Weight Weight: 188 lb 0.869 oz Body Mass Index (BMI) 26.9 ABG / Lab / Microbiology Data 08/18/23 02:55 08/18/23 02:55 D/C Instructions Discharge Diet: Light diet - advance as tolerated May shower in (days): 1 Call your doctor if your incision/area has: Continuous Slow Oozing, Sudden Increased Bleeding, Increased Pain/ Swelling, Increased Redness, Foul Smelling Discharge and Swelling at the incision site Call your doctor if you observe: Fever of 101 or Higher Cleanse incision/area with: Soap & Water Additional Dressing/Incision Instructions: Steri-Strips will fall off in 7 to 10days, if they do not fall off okay to remove after 10 days. Please Follow Up With: Geovanna Parsons MD When: Call the office for a follow-up appointment 2 weeks; after 5 PM and on call [phone] with any concerns. Meaningful Use Info Meaningful Use Diagnoses (Choose all that apply): None applicable Discharge Plan Admission Admit Date/Time: 08/20/23 10:56 Primary Reason for Your Visit: Acute Cholecysitis Attending Provider: Geovanna Parsons Primary Care Provider: Brandon Cantor Instructions Additional Instructions / Restrictions: Cholecystectomy Diet ? Start light with soups and soft bland foods. You may advance diet as tolerated. Activity ? You may drive in 3-5 days but not while taking narcotic pain medication. ? I encourage walking. You may go up steps, one at a time. ? Do not swim or use hot tubs for 2 weeks. ? For comfort, you may use warm compresses or ice as needed for 15-20 minutes farhat time. Lifting ? You may lift up to 20 pounds for 2 weeks. Dressings/Incision ? You may shower OVER your plastic dressings ? Do NOT tub bathe for 1 week ? Leave plastic dressings on for 2 days. ? When plastic dressings are removed, you will find steri strips. It is okay to continue showering with them in place, pat them dry. ? You may remove steri-strips after 1 week. We recommend getting them soaking wet for easier removal. Medications ? Anesthesia used during surgery and pain medications may cause constipation. I recommend initiating on the day of surgery a fiber supplement like, Metamucil, Citrucel, FiberCon, Benefiber, or a generic form of these medications. 1 heapingtablespoon in water daily. You may continue to utilize any bowel regimen or orallaxatives that you routinely take. ? As long as you are not intolerant to Tylenol, acetaminophen, ibuprofen, Motrin, Advil, Aleve, or similar medications, I would recommend transitioning tothese [id number] medicines as soon as possible instead of continued use ofnarcotic pain medication. Follow up ? You should call [facility] soon after surgery, at [phone] option 1 to make a follow up appointment for 7-10 days after your surgery. Discharge Orders/Prescriptions Prescriptions: New tramadol 50 mg tablet 50 mg PO Q6H PRN (Reason: pain) Qty: 10 0RF tamsulosin 0.4 mg Capsule 0.4 mg PO QHS Qty: 14 0RF Continued carbidopa-levodopa 25-100 mg tablet 1 tab PO TID lorazepam [Ativan] 1 mg tablet 1 mg PO DAILY PRN (Reason: Anxiety) methimazole 5 mg tablet 5 mg PO DAILY Qty: 30 6RF pantoprazole 40 mg tablet,delayed release (DR/EC) 40 mg PO DAILY 30 Days Qty: 30 11RF cholestyramine (with sugar) 4 gram powder 1 g PO HS Qty: 348.6 0RF Rx Instructions: administer w/meal; avoid other meds within 1hr before or 4-6hr after dose cholecalciferol (vitamin D3) [Vitamin D3] 25 mcg (1,000 unit) Tablet 25 mcg PO DAILY potassium chloride 10 mEq capsule, extended release 10 meq PO BID metoprolol tartrate 25 mg tablet 25 mg PO DAILY paroxetine HCl 20 mg tablet 20 mg PO DAILY MDD T isosorbide mononitrate 30 mg tablet extended release 24 hr 30 mg PO DAILY atorvastatin 20 mg tablet 20 mg PO QHS Referrals / Follow Up: Geovanna Parsons MD [Med Staff - Active Staff] - (Please call our office for a 2 week appointment after your surgery date to follow-up) Brandon Cantor MD [Primary Care Provider] - Daja Monsivais PA-C [Med Staff - Adv Practice Prof] - 08/23/23 7:45 am Disposition Disposition (needs filled in before D/C Order can be placed): Home, Self Care Charges/Coding Visit Charges Inpatient E&M: 10799 Disch Hosp (no charge; post-op) 08/21/23 1108 <Electronically signed by Daja VERA PA-C> Cosigner Signature (if applicable): CC: GASTON Monsivais; Dr. Brandon Cantor MD~ Signed [facility] Work Phone: 1(654) 827-623603-18-2024 Consult note Author Tim Kim [facility] August 21, 2023 11:05am Note Date/Time August 21, 2023 11: 06am [facility] Medical Records Department [address] [place] [address] Counseling Note - Pharmacy 08/21/23 1105 MR#: [id number] Acct: [id number] Name: ROHAN OLIVIA Rep #:[id number] : 1945 78 From: Tim Kim PCP: Dr. Brandon Cantor MD Status:A DM IN Y Location: [place] [address] Pharmacy [facility] has performed discharge medication reconciliation and counseling for this patient. The patient's discharge medication list was reviewed for discrepancies and discrepancies were resolved. The patient was counseled on the following discharge medications and changes in medications for homegoing were reviewed. The Reason for Use, instructions for use, and potential side effects were reviewed for all new medications. The patient's questions regarding all of their medications were answered. 1. Tamsulosin 0.4 mg PO QHS 2. Tramadol 50 mg PO Q6H PRN pain The patient was able to verbally demonstrate an understanding of their dischargemedications. Medications at Discharge Home Medications metoprolol tartrate 25 mg tablet 25 mg PO DAILY heart 04/15/21 potassium chloride 10 mEq capsule,extended release 10 meq PO BID supplement 04/15/21 cholecalciferol (vitamin D3) 25 mcg (1,000 unit) tablet (Vitamin D3) 25 mcg PO DAILY health maintenance 07/07/21 carbidopa 25 mg-levodopa 100 mg tablet 1 tab PO TID PARKINSONS 10/18/21 isosorbide mononitrate 30 mg tablet,extended release 24 hr 30 mg PO DAILY [id number]/22 lorazepam 1 mg tablet (Ativan) 1 mg PO DAILY PRN Anxiety 12/01/21 paroxetine HCl 20 mg tablet 20 mg PO DAILY DEPRESSION 12/07/21 atorvastatin 20 mg tablet 20 mg PO QHS CHOLESTEROL 02/08/22 methimazole 5 mg tablet 5 mg PO DAILY THYROID #30 tabs 03/09/23 cholestyramine (with sugar) 4 gram oral powder 1 g PO HS #348.6 grams 06/14/23 pantoprazole 40 mg tablet,delayed release 40 mg PO DAILY 30 days #30 tabs 06/14/23 tramadol 50 mg tablet 50 mg PO Q6H PRN pain #10 tabs 08/18/23 tamsulosin 0.4 mg capsule 0.4 mg PO QHS #14 caps 08/21/23 08/21/23 1105 <Electronically signed by Tim lemus> Date _ Tim Balderrama Signature (if applicable): Date CC: ~ Signed [facility] Work Phone: 1(666) 919-848103-17-2024 Progress note Author Mateo Pastor [facility] August 20, 2023 11:54am Note Date/Time August 20, 2023 9:0 5am [facility] Medical Records Department [address] [place] [address] Progress Note - Surgery 08/20/23 0905 MR#: [id number] Acct: [id number] Name: ROHAN OLIVIA Rep #:[id number] : 1945 78 From: Mateo Christianson PCP: Dr. Brandon Cantor MD Status:A DM IN Location: [facility]3 [id number] Subjective Subjective Patient seen and examined during AM rounds. He is found resting in the chair. He states that he was pleasantly surprised how much better he did with therapy today and is feeling stronger. He also denies as much abdominal discomfort. Hestill expresses some reservations about returning home as he does not believe heis quite strong enough. Lastly, he complains of some dry eye and wishes to havesome drops ordered. Objective Data Objective Data Vital Signs: Vital Signs Temp Pulse Resp BP Pulse Ox O2 Del Method O2 Flow Rate 97.7 F L 71 20 H 160/75 H 93 Nasal Cannula 2 08/20/23 06:15 08/20/23 06:15 08/20/23 06:15 08/20/23 06:15 08/20/23 07:58 08/20/23 06:15 08/20/23 07:58 Oxygen Flow Rate (L/min) 2 Oxygen Delivery Method Nasal Cannula Weight: 188 lb 0.869 oz Body Mass Index (BMI) 26.9 Intake & Output: Intake and Output for Last 24 Hours 08/18/23 08/19/23 08/20/23 23:59 23:59 23:59 Intake Total 1365 / 1605 1942.00 / 1942.00 500 / 500 Output Total 255 / 285 1525 / 2125 1100 / 1100 Balance 1110 / 1320 417.00 / -183.00 -600 / -600 Lab / Micro Data 08/18/23 02:55 08/18/23 02:55 Physical Exam Const oriented x3 and no apparent distress Resp normal respiratory effort Resp Narrative: Nasal cannula in place GI GI Narrative: Mildly distended, operative dressings intact initially I removed and there is just crusted drainage to patient's Steri-Strips. He is minimally tender with palpation. Drain site in the right upper quadrant demonstrates a clean and dry dressing in that is intact. Assessment & Plan Assessment/Plan (1) Acute calculous cholecystitis: PLAN: Patient is postoperative day 2 from laparoscopic cholecystectomy with intraoperative cholangiogram. Overall he is doing well from a recovery from thesurgery and has minimal pain complaints. His drain was pulled yesterday and that site is appropriate. Unfortunately discharge was held yesterday on the account of urinary retention, some mild hypoxia requiring ongoing oxygen needs, and patient reported weakness/lack of comfort with being able to go home safely. (2) Constipation: PLAN: Last bowel movement was now 3 days ago. Patient exhibits mild distention. MiraLAX ordered daily starting today (3) Acute urinary retention: PLAN: Patient with urinary retention after 1 straight catheterization prior. Hehas a history of BPH status post TURP and I restarted tamsulosin at the time of Crawford catheter placement yesterday. Urine output appears appropriate now. Willplan to discharge with Crawford catheter (4) Weakness: PLAN: Patient reports improvements in his ability to work with PT OT today. Still believes that he may be too weak to return home safely (5) Hypoxia: PLAN: Patient requiring supplemental oxygen to maintain sat greater than 90%. Diuresis with 1 dose of Lasix performed yesterday. Patient has been good about sitting out of bed in a chair to optimize his respiratory mechanics. Will look to try to wean oxygen today. Charges/Coding Visit Charges Inpatient E&M: 13838 Subs Hosp L2 08/20/23 1154 <Electronically signed by Mateo Pastor MD> Cosigner Signature (if applicable): CC: ~ Signed [facility] Work Phone: 1(591) 955-996803-16-2024 Progress note Author Mateo Pastor [facility] August 19, 2023 2:39pm Note Date/Time August 19, 2023 1:4 5pm [facility] Medical Records Department [address] [place] [id number] Progress Note - Surgery 08/19/23 1345 MR#: [id number] Acct: [id number] Name: ROHAN OLIVIA Rep #:[id number] : 1945 78 From: Mateo Christianson PCP: Dr. Brandon Cantor MD Status:A DM TANISHA Location: [place]3 [id number] Subjective Subjective Patient seen and examined during AM rounds. I was notified via text message overnight the patient was in retention and authorize straight catheterization. Patient states following that catheterization he had significant relief of his abdominal discomfort and reports an output of 700 mL. He states that his abdominal discomfort remains much improved over his intake. He still has some soreness at his abdominal wall. Nursing reports that they were not able to weanpatient's oxygen and that he remains unsteady when ambulating with assistance. Asked about this patient states that there is no way he is able to go home in this condition. Objective Data Objective Data Vital Signs: Vital Signs Temp Pulse Resp BP Pulse Ox O2 Del Method O2 Flow Rate 98.4 F 76 18 176/67 H 96 Nasal Cannula 2 08/19/23 09:26 08/19/23 09:35 08/19/23 09:26 08/19/23 09:26 08/19/23 11:27 08/19/23 11:27 08/19/23 11:27 Oxygen Flow Rate (L/min) 2 Oxygen Delivery Method Nasal Cannula Weight: 188 lb 0.869 oz Body Mass Index (BMI) 26.9 Intake & Output: Intake and Output for Last 24 Hours 08/17/23 08/18/23 08/19/23 23:59 23:59 23:59 Intake Total 1365 / 1605 1892.25 / 1892.25 Output Total 255 / 285 750 / 750 Balance 1110 / 1320 1142.25 / 1142.25 Lab / Micro Data 08/18/23 02:55 08/18/23 02:55 Radiography Diagnostic Testing: Radiology Impression Cholangiogram 08/18/23 13:59 IMPRESSION: Unremarkable intraoperative cholangiogram. Electronically Signed: Cuong Reynolds MD at 14:59 EDT , Physical Exam Const oriented x3 Resp Resp Narrative: Mildly tachypneic with shallow respirations on nasal cannula GI GI Narrative: Mildly distended, operative dressings intact without strikethrough. Right upperquadrant drain with serosanguineous output and slight clot in the tubing that isstripped through. Expected tenderness to palpation Assessment & Plan Assessment/Plan (1) Acute calculous cholecystitis: PLAN: Patient is a 78-year-old male status post laparoscopic cholecystectomy with intraoperative cholangiography by Dr. Parsons yesterday. Overall he is recovering well on the floor. However, his recovery was complicated by some urinary retention yesterday that was managed with a simple and out catheterization but he is yet to void spontaneously today. I discussed simply placing a Crawford if he is unable to void again today. I have started him back onFlomax. He does have a history of retention. Additionally patient has a new oxygen requirement and has been unsteady on his feet. I will look to gently diurese him today and Hep-Lock his fluids in addition to her current I-S. As far as his weakness, PT OT was ordered await their formal evaluation Charges/Coding Visit Charges Inpatient E&M: 60963 Subs Hosp L2 08/19/23 1439 <Electronically signed by Mateo Pastor MD> Cosigner Signature (if applicable): CC: ~ Signed [facility] Work Phone: 1(299) 289-616103-15-2024 Discharge summary Author Geovanna Parsons [facility] August 18, 2023 3:07pm Note Date/Time August 18, 2023 3:0 4pm [facility] Medical Records Department [address] [place] [address] Instructions for Home/Discharge Instructions 08/18/23 1504 MR#: [id number] Acct: [id number] Name: ROHAN OLIVIA Rep #:[id number] : 1945 78 From: Geovanna Parsons MD PCP: Dr. Brandon Cantor MD Status:A DM TANISHA Discharge Instructions Diet Discharge Diet: Light diet - advance as tolerated Activity Discharge Activity: May Not Drive (while taking narcotic pain medications.) May shower in (days): 1 Lifting Restrictions: no lifting >20 lbs x 2 wks, no strenuous exercise for 4 wks Dressing / Incision Call your doctor if your incision/area has: Continuous Slow Oozing, Sudden Increased Bleeding, Increased Pain/ Swelling, Increased Redness, Foul Smelling Discharge and Swelling at the incision site Call your doctor if you observe: Fever of 101 or Higher Remove Dressing in: 2 days Cleanse incision/area with: Soap & Water Additional Dressing/Incision Instructions:: Steri-Strips will fall off in 7 to 10 days, if they do not fall off okay to remove after 10 days. Follow Up Care Please Follow Up With: Geovanna Parsons MD When: Call the office for a follow-up appointment 2 weeks; after 5 PM and on call [phone] with any concerns. Test Results: Test results from this visit will be discussed in further detail at your follow- up appointment, if applicable. Discharge Plan Admission Admit Date/Time: 08/18/23 09:16 Attending Provider: Geovanna Parsons Primary Care Provider: Brandon Cantor Instructions Additional Instructions / Restrictions: hold ASA 81 mg for 4 days. Discharge Orders/Prescriptions Prescriptions: New tramadol 50 mg tablet 50 mg PO Q6H PRN (Reason: pain) Qty: 10 0RF Continued carbidopa-levodopa 25-100 mg tablet 1 tab PO TID lorazepam [Ativan] 1 mg tablet 1 mg PO DAILY PRN (Reason: Anxiety) methimazole 5 mg tablet 5 mg PO DAILY Qty: 30 6RF pantoprazole 40 mg tablet,delayed release (DR/EC) 40 mg PO DAILY 30 Days Qty: 30 11RF cholestyramine (with sugar) 4 gram powder 1 g PO HS Qty: 348.6 0RF Rx Instructions: administer w/meal; avoid other meds within 1hr before or 4-6hr after dose cholecalciferol (vitamin D3) [Vitamin D3] 25 mcg (1,000 unit) Tablet 25 mcg PO DAILY potassium chloride 10 mEq capsule, extended release 10 meq PO BID metoprolol tartrate 25 mg tablet 25 mg PO DAILY paroxetine HCl 20 mg tablet 20 mg PO DAILY MDD T isosorbide mononitrate 30 mg tablet extended release 24 hr 30 mg PO DAILY atorvastatin 20 mg tablet 20 mg PO QHS Referrals / Follow Up: Brandon Cantor MD [Primary Care Provider] - Disposition Disposition (needs filled in before D/C Order can be placed): Home, Self Care 08/18/23 1507<Electronically signed by Geovanna Parsons MD>Geovanna Parsons MD CC: Dr. Brandon Cantor MD ~ Signed [facility] Work Phone: 1(448) 202-400303-15-2024 Procedure [facility] 08-18-2023 History and physical note Author Geovanna [facility] August 18, 2023 10:47am Note Date/Time August 18, 2023 9:1 6am [facility] Medical Records Department [facility] [place] [address] H&P Exam - Surgical 08/18/23 0916 MR#: [id number] Acct: [id number] Name: ROHAN OLIVIA Rep #:[id number] : 1945 78 From: Geovanna Parsons MD PCP: Dr. Brandon Cantor MD Status:A DM TANISHA Location: MS3 [id number] HPI - General General Date of Admission: 08/18/23 HPI Narrative ROHAN OLIVIA, is a 78 M who presents to the ER due to epigastric/right upper quadrant pain started about 10- 11 PM last night accompanied with his . Patient denies having previous pain similar. Patient's CT abdomen pelvis showeda distended gallbladder with gallstones and questionable wall thickening. Patient normal white blood cell count no shift, normal LFTs. Patient's ultrasound suspicious for acute cholecystitis with pericholecystic fluid, thickened gallbladder wall, normal common bile duct and distended gallbladder. Patient did receive Zosyn IV in the ER. Patient does take a baby aspirin, but no other blood thinners. Patient has had multiple abdominal surgeries however they were all robotic including a colon surgery along with an ostomy and takedown of ostomy and then robotic left nephrectomy in 2021. [facility] Medical History Abnormal weight loss Acute respiratory failure with hypoxia Ambulates with cane Anxiety Arthritis Back pain BPH (benign prostatic hyperplasia) Cancer Cardiology follow-up encounter Change in bowel habit Chronic cough Chronic diarrhea Chronic respiratory failure with hypoxia Closed right hip fracture Depression Diarrhea Difficulty swallowing Excessive bleeding Expressive aphasia Fall Former smoker Heartburn History of Clostridium difficile infection History of echocardiogram History of pain when walking Hypercholesterolemia Hyperlipidemia Hypertension Hyperthyroidism Hypothyroidism IBS (irritable bowel syndrome) Leg cramps Melanoma in situ of unspecified part of face Osteoarthritis Osteoporosis Parkinsons disease Polycythemia Prostate disease Pulmonary embolism Shortness of breath on exertion Skin cancer Syncope Thyrotoxicosis Wears dentures Wears glasses Home Medications metoprolol tartrate 25 mg tablet 25 mg PO DAILY heart 04/15/21 [History Last Taken 04/18/23 09:00] potassium chloride 10 mEq capsule,extended release 10 meq PO BID supplement 04/15/21 [History Last Taken 04/29/22] cholecalciferol (vitamin D3) 25 mcg (1,000 unit) tablet (Vitamin D3) 25 mcg PO DAILY health maintenance 07/07/21 [History Last Taken 04/29/22] carbidopa 25 mg-levodopa 100 mg tablet 1 tab PO TID PARKINSONS 10/18/21 [History Last Taken 04/19/23] isosorbide mononitrate 30 mg tablet,extended release 24 hr 30 mg PO DAILY REQNNH20/16/22 [History Last Taken 04/29/22] lorazepam 1 mg tablet (Ativan) 1 mg PO DAILY PRN Anxiety 12/01/21 [History Last Taken 02/15/22] paroxetine HCl 20 mg tablet 20 mg PO DAILY DEPRESSION 12/07/21 [History Last Taken 02/15/22] atorvastatin 20 mg tablet 20 mg PO QHS CHOLESTEROL 02/08/22 [History Last Taken 04/28/22] methimazole 5 mg tablet 5 mg PO DAILY THYROID #30 tabs 03/09/23 [Rx Last Taken Unknown] cholestyramine (with sugar) 4 gram oral powder 1 g PO HS #348.6 grams 06/14/23 [Rx Last Taken Unknown] pantoprazole 40 mg tablet,delayed release 40 mg PO DAILY 30 days #30 tabs 06/14/23 [Rx Last Taken Unknown] Allergy/AdvReac Type Severity Reaction Status Date / Time No Known Allergies Allergy Verified 08/18/23 02:37 Family History Father Lung cancer Mother Parkinsons Heart failure Surgical History (Updated 04/17/23 @ 11:49 by Sonam Monsivais) H/O colonoscopy History of cardiac catheterization History of colon surgery History of esophagogastroduodenoscopy (EGD) History of nephrectomy, left History of rhinoplasty History of tonsillectomy History of total knee replacement (TKR) History of total right hip replacement History of transurethral resection of prostate Hx of colonoscopy reattachment of severed finger stoma reversal Social History household members: spouse housing: house 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al status: employed 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: [employer] pets and animals: Yes pets and animals: cat(s) and dog(s) Smoking Status: Former smoker quit date: 06/05/98 pack-years: 72 second hand exposure: No alcohol intake: never substance use type: does not use seatbelt use: always Vital Signs Vital Signs Vital Signs: 08/18/23 02:38 08/18/23 02:58 08/18/23 03:33 Temperature 98.5 F Temperature Source Oral Pulse Rate 74 70 71 Respiratory Rate 18 23 H 16 Blood Pressure 199/84 H 192/77 H 168/78 H Blood Pressure Mean 122 115 108 Pulse Ox 95 88 Oxygen Delivery Method Room Air Nasal Cannula Oxygen Flow Rate (L/min) 2 08/18/23 04:03 08/18/23 04:46 08/18/23 05:04 Temperature Temperature Source Pulse Rate 68 70 69 Respiratory Rate 18 17 15 Blood Pressure 179/82 H 170/86 H 174/80 H Blood Pressure Mean 114 114 111 Pulse Ox 92 97 95 Oxygen Delivery Method Nasal Cannula Nasal Cannula Nasal Cannula Oxygen Flow Rate (L/min) 2 3 2 08/18/23 03:01 08/18/23 03:15 08/18/23 03:30 Temperature Temperature Source Pulse Rate 69 71 70 Respiratory Rate 16 22 H 17 Blood Pressure 189/86 H 168/78 H Blood Pressure Mean 108 104 Pulse Ox 89 88 90 Oxygen Delivery Method Oxygen Flow Rate (L/min) 08/18/23 03:45 08/18/23 04:00 08/18/23 04:30 Temperature Temperature Source Pulse Rate 68 Respiratory Rate 25 H Blood Pressure 172/84 H 179/82 H 192/84 H Blood Pressure Mean 106 111 115 Pulse Ox 95 Oxygen Delivery Method Oxygen Flow Rate (L/min) 08/18/23 04:33 08/18/23 04:45 08/18/23 05:00 Temperature Temperature Source Pulse Rate 72 69 69 Respiratory Rate 14 18 18 Blood Pressure 170/86 H 174/80 H Blood Pressure Mean 108 108 Pulse Ox 97 95 94 Oxygen Delivery Method Oxygen Flow Rate (L/min) 08/18/23 05:15 08/18/23 05:30 08/18/23 05:45 Temperature Temperature Source Pulse Rate 71 70 82 Respiratory Rate 18 16 20 H Blood Pressure 165/80 H 163/78 H 142/70 H Blood Pressure Mean 105 102 86 Pulse Ox 93 93 Oxygen Delivery Method Oxygen Flow Rate (L/min) 08/18/23 06:00 08/18/23 06:15 08/18/23 06:30 Temperature Temperature Source Pulse Rate 69 69 68 Respiratory Rate 18 18 15 Blood Pressure 166/80 H 152/72 H 151/72 H Blood Pressure Mean 102 93 94 Pulse Ox 92 92 92 Oxygen Delivery Method Oxygen Flow Rate (L/min) 08/18/23 06:45 08/18/23 07:15 08/18/23 07:20 Temperature Temperature Source Pulse Rate 68 75 Respiratory Rate 20 H 21 H Blood Pressure 159/76 H 147/77 H Blood Pressure Mean 98 95 Pulse Ox 92 90 Oxygen Delivery Method Oxygen Flow Rate (L/min) 08/18/23 08:00 08/18/23 09:00 08/18/23 07:30 Temperature Temperature Source Pulse Rate 72 77 71 Respiratory Rate 16 20 H 21 H Blood Pressure 149/57 H 162/76 H 153/70 H Blood Pressure Mean 87 104 89 Pulse Ox 97 93 92 Oxygen Delivery Method Nasal Cannula Nasal Cannula Oxygen Flow Rate (L/min) 2 2 08/18/23 07:45 08/18/23 08:00 08/18/23 08:15 Temperature Temperature Source Pulse Rate 71 73 83 Respiratory Rate 20 H 20 H 26 H Blood Pressure 156/79 H 149/57 H 175/82 H Blood Pressure Mean 98 80 107 Pulse Ox 93 93 89 Oxygen Delivery Method Oxygen Flow Rate (L/min) Weight Weight: 188 lb 0.869 oz Body Mass Index (BMI) 26.9 Physical Exam Const alert, oriented x3 and no apparent distress HEENT normocephalic and head/scalp atraumatic Resp normal respiratory effort Cardio regular rate GI soft to palpation and non-tender; Negative for non-distended Palpation: Negative for guarding Extremity no clubbing, cyanosis or edema Skin no rashes or lesions noted Neuro CN's II-XII intact bilaterally Psych mental status grossly normal Results Lab / Micro Data 08/18/23 02:55 08/18/23 02:55 Labs: Laboratory Results - last 24 hr 08/18/23 02:55: WBC 9.1, RBC 5.28, Hgb 16.0, Hct 48.4, MCV 91.7, MCH 30.3, MCHC 33.1, RDW Std Deviation 47.7 H, RDW Coeff of Daisy 14.1, Plt Count 150, MPV 10.9, Immature Gran % (Auto) 0.400, Neut % (Auto) 80.6 H, Lymph % (Auto) 9.4 L, [place] %(Auto) 7.1, Eos % (Auto) 1.8, Baso % (Auto) 0.7, Absolute Neuts (auto) 7.4, Absolute Lymphs (auto) 0.86, Nucleated RBC % 0, Sodium 142, Potassium 3.9, Chloride 107, Carbon Dioxide 29.0, Anion Gap 6, BUN 19 H, Creatinine 1.54 H, Estim Creat Clear Calc 40.82, Est GFR (MDRD) Af Amer 56 L, Est GFR (MDRD) Non-Af47 L, BUN/Creatinine Ratio 12.3, Glucose 111 H, Calcium 9.5, Total Bilirubin 0.90, Direct Bilirubin 0.24, AST 14 L, ALT < 6 L, Alkaline Phosphatase 96, TotalProtein 7.0, Albumin 3.8, Globulin 3.2, Lipase 64 08/18/23 03:20: Lactic Acid 1.1 Imaging Radiology Impression Abdomen/Pelvis CT 08/18/23 03:12 IMPRESSION: Abnormal appearance of the gallbladder which is distended. Cholelithiasis. Inflammatory changes are present with associated intrahepatic biliary ductal dilatation. Findings suspicious for acute cholecystitis. Additional chronic changes as detailed above. Electronically Signed: Emmanuel Rivero MD at 5:16 EDT , Gallbladder Ultrasound 08/18/23 05:58 IMPRESSION: Fatty infiltration of the liver. Hepatic cysts. Multiple gallstones and sludge seen in the gallbladder lumen. Small amount of pericholecystic fluid. Gallbladder wall thickening. Right renal cyst. Electronically Signed: Cuong Reynolds MD at 8:21 EDT , Assessment & Plan Assessment/Plan (1) Acute calculous cholecystitis: (2) Hypertension: (3) Parkinson's disease: PLAN: Plan Reviewed the anatomy with the patient and discussed the procedure: laparoscopic cholecystectomy with possible cholangiograms, possible open. Review risks including but not limited to bleeding, infection, hernia, bile leak, retained gallstones requiring another procedure ERCP- Endoscopic Retrograde Cholangiopancreatography, injury to another organ (bile ducts, common bile duct,small bowel, etc.) and conversion to an open procedure. All questions were answered. Geovanna Parsons M.D. Pager: [phone] [facility] [address] [place] [address], Outpatient Pavilion, [address] [place] [address] Office: [phone] 08/18/23 1042 <Electronically signed by Geovanna Parsons MD> Cosigner Signature (if applicable): CC: Dr. Geovanna Parsons MD; Dr. Brandon Cnator MD~ Signed [facility] Work Phone: 1(153) 246-603903-15-2024 Discharge summary Author Wisam Bella [facility] August 18, 2023 9:13am Note Date/Time August 18, 2023 9:1 3am [facility] Medical Records Department [address] [place] [id number] Emergency Department Summary 08/18/23 MR#: [id number] Acct: [id number] Name: ROHAN OLIVIA Rep #:[id number] : 1945 78 From: Wisam Bella DO PCP: Dr. Brandon Cantor MD Status:R EG ER Location: ED HPI History of Present Illness Chief Complaint: Chest Pain Informant: patient and spouse/S.O. Narrative Narrative: Patient is a 78-year-old male with past medical history of hypertension and Parkinson's disease as well as renal cancer requiring left nephrectomy roughly 1year ago. He states he ate a BLT for dinner and then was lying down to go to sleep around 11 PM when he developed sharp pain in his right upper abdomen radiating towards the middle portion of his chest and abdomen as well. He states he became nauseous with this but denies any vomiting. He states that he thought he may have acid reflux so he took some [id number] medication without symptom improvement and secondary to the persistent pain comes in for evaluation [facility] Medical History Abnormal weight loss Acute respiratory failure with hypoxia Ambulates with cane Anxiety Arthritis Back pain BPH (benign prostatic hyperplasia) Cancer Cardiology follow-up encounter Change in bowel habit Chronic cough Chronic diarrhea Chronic respiratory failure with hypoxia Closed right hip fracture Depression Diarrhea Difficulty swallowing Excessive bleeding Expressive aphasia Fall Former smoker Heartburn History of Clostridium difficile infection History of echocardiogram History of pain when walking Hypercholesterolemia Hyperlipidemia Hypertension Hyperthyroidism Hypothyroidism IBS (irritable bowel syndrome) Leg cramps Melanoma in situ of unspecified part of face Osteoarthritis Osteoporosis Parkinsons disease Polycythemia Prostate disease Pulmonary embolism Shortness of breath on exertion Skin cancer Syncope Thyrotoxicosis Wears dentures Wears glasses Home Medications metoprolol tartrate 25 mg tablet 25 mg PO DAILY heart 04/15/21 [History Last Taken 04/18/23 09:00] potassium chloride 10 mEq capsule,extended release 10 meq PO BID supplement 04/15/21 [History Last Taken 04/29/22] cholecalciferol (vitamin D3) 25 mcg (1,000 unit) tablet (Vitamin D3) 25 mcg PO DAILY health maintenance 07/07/21 [History Last Taken 04/29/22] carbidopa 25 mg-levodopa 100 mg tablet 1 tab PO TID PARKINSONS 10/18/21 [History Last Taken 04/19/23] isosorbide mononitrate 30 mg tablet,extended release 24 hr 30 mg PO DAILY [id number]/16/22 [History Last Taken 04/29/22] lorazepam 1 mg tablet (Ativan) 1 mg PO DAILY PRN Anxiety 12/01/21 [History Last Taken 02/15/22] paroxetine HCl 20 mg tablet 20 mg PO DAILY DEPRESSION 12/07/21 [History Last Taken 02/15/22] atorvastatin 20 mg tablet 20 mg PO QHS CHOLESTEROL 02/08/22 [History Last Taken 04/28/22] methimazole 5 mg tablet 5 mg PO DAILY THYROID #30 tabs 03/09/23 [Rx Last Taken Unknown] cholestyramine (with sugar) 4 gram oral powder 1 g PO HS #348.6 grams 06/14/23 [Rx Last Taken Unknown] pantoprazole 40 mg tablet,delayed release 40 mg PO DAILY 30 days #30 tabs 06/14/23 [Rx Last Taken Unknown] Allergy/AdvReac Type Severity Reaction Status Date / Time No Known Allergies Allergy Verified 08/18/23 02:37 Family History Father Lung cancer Mother Parkinsons Heart failure Surgical History (Updated 04/17/23 @ 11:49 by Sonam Monsivais) H/O colonoscopy History of cardiac catheterization History of colon surgery History of esophagogastroduodenoscopy (EGD) History of nephrectomy, left History of rhinoplasty History of tonsillectomy History of total knee replacement (TKR) History of total right hip replacement History of transurethral resection of prostate Hx of colonoscopy reattachment of severed finger stoma reversal Social History household members: spouse housing: house 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al status: employed 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: [employer] pets and animals: Yes pets and animals: cat(s) and dog(s) Smoking Status: Former smoker quit date: 06/05/98 pack-years: 72 second hand exposure: No alcohol intake: never substance use type: does not use seatbelt use: always ROS ROS ED Constitutional Constitutional ED: Denies chills or fever(s) Eyes Eyes: Denies change in vision ENT ENT ED: Denies sore throat Cardiovascular Cardiovascular: Reports chest pain; Denies palpitations or racing heartbeat Respiratory/Chest Respiratory/Chest: Denies cough or dyspnea Gastrointestinal Gastrointestinal: Reports abdominal pain and nausea; Denies diarrhea or vomiting Genitourinary Genitourinary ED: Denies dysuria or hematuria Musculoskeletal Musculoskeletal: Denies back pain or myalgias Integumentary Denies rash Neurologic Neurologic: Denies headache(s) Hematologic/Lymphatic Hematologic/Lymphatic: Denies easy bleeding or easy bruising EXAM Physical Exam Const Vital Signs: 08/18/23 02:38 08/18/23 02:58 08/18/23 03:33 Temperature 98.5 F Temperature Source Oral Pulse Rate 74 70 71 Respiratory Rate 18 23 H 16 Blood Pressure 199/84 H 192/77 H 168/78 H Blood Pressure Mean 122 115 108 Pulse Ox 95 88 Oxygen Delivery Method Room Air Nasal Cannula Oxygen Flow Rate (L/min) 2 08/18/23 04:03 08/18/23 04:46 08/18/23 05:04 Temperature Temperature Source Pulse Rate 68 70 69 Respiratory Rate 18 17 15 Blood Pressure 179/82 H 170/86 H 174/80 H Blood Pressure Mean 114 114 111 Pulse Ox 92 97 95 Oxygen Delivery Method Nasal Cannula Nasal Cannula Nasal Cannula Oxygen Flow Rate (L/min) 2 3 2 08/18/23 03:01 08/18/23 03:15 08/18/23 03:30 Temperature Temperature Source Pulse Rate 69 71 70 Respiratory Rate 16 22 H 17 Blood Pressure 189/86 H 168/78 H Blood Pressure Mean 108 104 Pulse Ox 89 88 90 Oxygen Delivery Method Oxygen Flow Rate (L/min) 08/18/23 03:45 08/18/23 04:00 08/18/23 04:30 Temperature Temperature Source Pulse Rate 68 Respiratory Rate 25 H Blood Pressure 172/84 H 179/82 H 192/84 H Blood Pressure Mean 106 111 115 Pulse Ox 95 Oxygen Delivery Method Oxygen Flow Rate (L/min) 08/18/23 04:33 08/18/23 04:45 08/18/23 05:00 Temperature Temperature Source Pulse Rate 72 69 69 Respiratory Rate 14 18 18 Blood Pressure 170/86 H 174/80 H Blood Pressure Mean 108 108 Pulse Ox 97 95 94 Oxygen Delivery Method Oxygen Flow Rate (L/min) 08/18/23 05:15 08/18/23 05:30 08/18/23 05:45 Temperature Temperature Source Pulse Rate 71 70 82 Respiratory Rate 18 16 20 H Blood Pressure 165/80 H 163/78 H 142/70 H Blood Pressure Mean 105 102 86 Pulse Ox 93 93 Oxygen Delivery Method Oxygen Flow Rate (L/min) 08/18/23 06:00 08/18/23 06:15 08/18/23 06:30 Temperature Temperature Source Pulse Rate 69 69 68 Respiratory Rate 18 18 15 Blood Pressure 166/80 H 152/72 H 151/72 H Blood Pressure Mean 102 93 94 Pulse Ox 92 92 92 Oxygen Delivery Method Oxygen Flow Rate (L/min) 08/18/23 06:45 08/18/23 07:15 08/18/23 07:20 Temperature Temperature Source Pulse Rate 68 75 Respiratory Rate 20 H 21 H Blood Pressure 159/76 H 147/77 H Blood Pressure Mean 98 95 Pulse Ox 92 90 Oxygen Delivery Method Oxygen Flow Rate (L/min) 08/18/23 08:00 08/18/23 07:30 08/18/23 07:45 Temperature Temperature Source Pulse Rate 72 71 71 Respiratory Rate 16 21 H 20 H Blood Pressure 149/57 H 153/70 H 156/79 H Blood Pressure Mean 87 89 98 Pulse Ox 97 92 93 Oxygen Delivery Method Nasal Cannula Oxygen Flow Rate (L/min) 2 08/18/23 08:00 08/18/23 08:15 Temperature Temperature Source Pulse Rate 73 83 Respiratory Rate 20 H 26 H Blood Pressure 149/57 H 175/82 H Blood Pressure Mean 80 107 Pulse Ox 93 89 Oxygen Delivery Method Oxygen Flow Rate (L/min) Positive well nourished and well developed General Appearance ED: well developed; Negative for pallor HEENT HEENT Narrative: Normocephalic atraumatic No signs of infection in the posterior pharynx No airway edema or compromise Eyes PERRL and EOMs intact bilaterally General Eye ED: Negative for scleral icterus Neck supple Neck Narrative: No nuchal rigidity or meningeal signs Chest Wall palpation of chest normal Resp normal respiratory effort and clear to auscultation bilaterally Cardio regular rate and regular rhythm Rate: other Other Details: Radial and carotid pulses equal and symmetric GI non-distended GI Narrative: Abdomen is soft and nondistended with normal active bowel sounds. Patient has pain on palpation in the right upper quadrant and midepigastric region but greatest pain in the right upper quadrant with positive Courtney sign. No pulsatile mass Auscultation: normoactive bowel sounds Palpation: soft Back/Spine no CVA tenderness Extremity normal to inspection Neuro oriented x3 and CN's II-XII intact bilaterally Sensorium / Orientation: alert Psych mental status grossly normal Skin no rashes or lesions noted General Skin Exam: Negative for jaundice or pallor MDM MDM MDM Narrative Medical decision making narrative: Patient presented to the ER with stable vitals and reported sudden onset of painwhich after further history and exam is more abdominal than it is cardiac. Withthe fact that the pain started after eating a BLT concern is for biliary colic versus acute cholecystitis versus pancreatitis. Secondary to his basic labs britton CT scan with IV contrast were ordered. Patient's labs revealed no clinically significant findings but CT scan did show gallstones with concern for acute cholecystitis. Secondary to this the case was discussed with general surgery on-call Dr. Parsons. She recommends an ultrasound for further clarification ofthe CT results. Ultrasound was performed and does confirm acute cholecystitis. Patient was given IV Zosyn secondary to this. Case was then rediscussed with general surgery who recommends admission to their service for cholecystectomy. Patient was informed of this and is agreeable with the plan of care. He will beadmitted to general surgery service while awaiting potential surgical fixation for his acute cholecystitis. History & Record Review Discussion w/independent historian: Patient and Significant other Lab Data Attestation: I reviewed the patient's lab results. Labs: Laboratory Results - last 24 hr 08/18/23 08/18/23 02:55 03:20 WBC 9.1 RBC 5.28 Hgb 16.0 Hct 48.4 MCV 91.7 MCH 30.3 MCHC 33.1 RDW Std Deviation 47.7 H RDW Coeff of Daisy 14.1 Plt Count 150 MPV 10.9 Immature Gran % (Auto) 0.400 Neut % (Auto) 80.6 H Lymph % (Auto) 9.4 L [place] % (Auto) 7.1 Eos % (Auto) 1.8 Baso % (Auto) 0.7 Absolute Neuts (auto) 7.4 Absolute Lymphs (auto) 0.86 Nucleated RBC % 0 Sodium 142 Potassium 3.9 Chloride 107 Carbon Dioxide 29.0 Anion Gap 6 BUN 19 H Creatinine 1.54 H Estim Creat Clear Calc 40.82 Est GFR (MDRD) Af Amer 56 L Est GFR (MDRD) Non-Af 47 L BUN/Creatinine Ratio 12.3 Glucose 111 H Lactic Acid 1.1 Calcium 9.5 Total Bilirubin 0.90 Direct Bilirubin 0.24 AST 14 L ALT < 6 L Alkaline Phosphatase 96 Total Protein 7.0 Albumin 3.8 Globulin 3.2 Lipase 64 Radiography Diagnostic Testing: Clinical Impression(s) from Imaging Studies Abdomen/Pelvis CT 08/18/23 03:12 IMPRESSION: Abnormal appearance of the gallbladder which is distended. Cholelithiasis. Inflammatory changes are present with associated intrahepatic biliary ductal dilatation. Findings suspicious for acute cholecystitis. Additional chronic changes as detailed above. Electronically Signed: Emmanuel Rivero MD at 5:16 EDT , Gallbladder Ultrasound 08/18/23 05:58 IMPRESSION: Fatty infiltration of the liver. Hepatic cysts. Multiple gallstones and sludge seen in the gallbladder lumen. Small amount of pericholecystic fluid. Gallbladder wall thickening. Right renal cyst. Electronically Signed: Cuong Reynolds MD at 8:21 EDT , Management Discussion w/another healthcare provider: Cellar Pumper Discharge Plan Triage Chief Complaint: Chest Pain ED Provider: Wisam Bella Dx/Rx/DC Orders Clinical Impression: Acute calculous cholecystitis, Hypertension, Parkinson's disease Prescriptions: No Action carbidopa-levodopa 25-100 mg tablet 1 tab PO TID lorazepam [Ativan] 1 mg tablet 1 mg PO DAILY PRN (Reason: Anxiety) methimazole 5 mg tablet 5 mg PO DAILY Qty: 30 6RF pantoprazole 40 mg tablet,delayed release (DR/EC) 40 mg PO DAILY 30 Days Qty: 30 11RF cholestyramine (with sugar) 4 gram powder 1 g PO HS Qty: 348.6 0RF Rx Instructions: administer w/meal; avoid other meds within 1hr before or 4-6hr after dose cholecalciferol (vitamin D3) [Vitamin D3] 25 mcg (1,000 unit) Tablet 25 mcg PO DAILY potassium chloride 10 mEq capsule, extended release 10 meq PO BID metoprolol tartrate 25 mg tablet 25 mg PO DAILY paroxetine HCl 20 mg tablet 20 mg PO DAILY MDD T isosorbide mononitrate 30 mg tablet extended release 24 hr 30 mg PO DAILY atorvastatin 20 mg tablet 20 mg PO QHS Primary Care Provider: Brandon Cantor Referrals: Brandon Cantor MD [Primary Care Provider] - Disposition Disposition: Acute Care Hospital [facility] What to do if you have Problems For any increased pain, shortness of breath, bleeding, nausea or vomiting, chestpain, or any unexpected problems, contact your Primary Care Provider. Call [facility] ([phone]) or report to the closest Emergency Room. Call 911 if necessary. 08/18/23912 <Electronically signed by Wiasm Bella DO> Cosigner Signature (if applicable): CC: Dr. Brandon Cantor MD ~ Signed [facility] Work Phone: [phone]) 624-604103-14-2024 History of Present illness Narrative* Debra Castrejon - 08/17/2023 1:37 PM EDT Subjective: Patient presents to clinic c/o painful toenails. They state that the nails are especially painful with shoe gear and pressure. Patient states that nails 1-5 b/l are painful. No other pedal complaints at this time. Patient states no change in medications or medical history since last visit. Objective: Patient presents to clinic ambulating in [facility] Vasc: DP and PT pulses are palpable bilateral. CFT is less than 5 seconds bilateral. Skin temperature is warm to cool proximal to distal bilateral. There is moderate edema or varicosities noted. Neuro: Protective sensation is intact to the foot and toes when tested with the 5.07 SWM bilateral.Vibratory sensation is decreased at the hallux IPJ bilateral. The hallux is downgoing bilateral. Derm: Nails 1-5 b/l are painful, discolored-yellow, thick, crumbly, dystrophic and with subungal debris. Skin is of normal turgor, texture and hair growth is present bilateral. There are callus of right 5th metatarsal. No ulcerations, scars, verruca or other lesions noted. Ortho: Muscle strength is 5/5 for all pedal groups tested. Ankle joint DF is decreased with the knee extended with no pain or crepitus noted. 1st MPJ ROM is decreased bilateral. Assessment: (B35.1) Onychomycosis (primary encounter diagnosis) (M79.675) Pain in toe of left foot (M79.674) Pain in toe of right foot callus Plan: Patient was seen and evaluated. Nails 1-5 bilateral were debrided in length and thickness. Callus to right 5th metatarsal reduced with dremmel. Patient is to RTC in 3-4 months. Debra Castrejon DPM * Susana Gonsalez LPN - 08/17/2023 1:20 PM EDT AMB ROOMING INTAKE FLOWSHEET DATA Patient presents with: Left Foot - Established Patient, nail care Right Foot - Established Patient, nail care [facility]onsalez [facility]11-13-2023 History of Present illness Narrative* Douglas Mortensen MD - 04/17/2023 11:20 AM EST Images from the original note were not included. Douglas Mortensen MD Interventional Cardiology [address] [place] [address] Chief Complaint No chief complaint on file. HISTORY OF PRESENT ILLNESS: Mr. Olivia is a 77 year old male seen my office today for assessment management of his coronary artery disease patient had prior history of mild to moderate nonobstructive coronary artery disease denies any symptoms of chest pain or shortness of breath Limited by arthritis Exertional dyspnea Cardiac Risk Factors age (male over 45, female over 55), hyperlipidemia, hypertension, family history of CAD PAST MEDICAL HISTORY Diagnosis Date Acquired polycythemia 01/24/2013 Actinic Keratosis (Premalignant AK) 09/05/2010 Adenomatous colon polyp 10/09/2014 Anxiety 06/19/2009 BPH loc w/o Ur Obs/LUTS 06/19/2009 Chronic bronchitis (HCC) 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 Clostridium difficile diarrhea 08/21/2021 Enterocolitis due to Clostridium difficile 05/25/2015 Gross hematuria 01/30/2018 Hemarthrosis following procedure 07/23/2021 Right knee s/p TKR Hypertension 05/04/2009 Hyperthyroidism, subclinical 06/19/2009 OA (osteoarthritis) of knee 01/24/2013 Obesity 06/19/2009 Obesity, Class I, BMI 30-34.9 10/19/2017 Other chest pain Sandrita Mortensen MD. Cath CC/[facility] 08/20/2020. Other pulmonary embolism with acute cor pulmonale (HCC) 01/30/2018 fall, right hip fracture, right total hip Other pulmonary embolism with acute cor pulmonale (HCC) Panic attacks 2001 previously on Xanax Parkinson's disease 11/17/2021 Pulmonary hypertension (HCC) 01/30/2018 Renal cell cancer, left (HCC) 05/05/2022 Seborrheic keratosis 06/19/2009 PAST SURGICAL HISTORY Procedure Laterality Date COLONOSCOPY & POLYPECTOMY 01/13/2017 COLONOSCOPY & POLYPECTOMY 04/26/2022 COLONOSCOPY FLX DX W/COLLJ SPEC WHEN PFRMD 10/01/2014 Colonoscopy F COLONOSCOPY WITH BIOPSY 10/12/2018 biopsy negative, repeat 5 years LAP - RADICAL NEPHRECTOMY Left 02/16/2022 LAP STOMA CLOSURE, ILEOSTOMY 04/13/2015 closure of loop ileostomy LEFT HEART CATH,PERCUTANEOUS 08/20/2020 PAST SURGICAL HISTORY OF 03/1973 Right 4th digit reattachment PAST SURGICAL HISTORY OF 01/01/2015 Rectal/sigmoid resection RHINP PRIM LAT&ALAR CRTLGS&/ELVTN NASAL TI 1954 Rhinoplasty, nasal fracture TONSILLECTOMY PRIMARY/SECONDARY <AGE 12 1956 Tonsillectomy TOTAL HIP JOINT REPLACEMENT Right 01/12/2018 TOTAL KNEE REPLACEMENT Right 07/21/2021 TRANSURETHRAL ELEC-SURG PROSTATECTOM 05/14/2021 FAMILY HISTORY Problem Relation Age of Onset Psychiatry Mother Anxiety COPD Mother Heart Mother Heart failure, age 94 other (Other) Mother Parkinson's Cancer Father lung cancer, age 86 Psychiatry Sister Panic attacks Emphysema Maternal Grandfather 50 years working on [employer], coal smoke inhalation. Asthma Maternal Grandfather Colon Cancer Other Maternal 1st cousin age 40s Social History Tobacco Use Smoking status: Former Packs/day: 2.00 Years: 35.00 Additional pack years: 0.00 Total pack years: 70.00 Types: Cigarettes Start date: 1964 Quit date: 07/05/1998 Years since quittin.8 Smokeless tobacco: Never Vaping Use Vaping Use: Never used Substance Use Topics Alcohol use: No Drug use: No ALLERGIES No Known Allergies Medications: Current Outpatient Medications Medication Sig Dispense Refill isosorbide mononitrate ER (IMDUR) 30 mg 24 hr tablet Take 1 tablet by mouth once daily. 90 tablet 3 metoprolol tartrate, short acting, (LOPRESSOR) 25 mg tablet Take 1 tablet by mouth two times a day.180 tablet 3 atorvastatin (LIPITOR) 20 mg tablet Take 1 tablet by mouth daily at bedtime. For cholesterol. 90 tablet 3 LORazepam (ATIVAN) 1 mg tablet Take 1 tablet by mouth at bedtime as needed for anxiety for up to 90days. 30 tablet 0 PARoxetine (PAXIL) 20 mg tablet Take 1 tablet by mouth once daily. 90 tablet 3 colestipol (COLESTID) 1 gram tablet Take 1 tablet by mouth once daily. traMADol (ULTRAM) 50 mg tablet Take 50 mg by mouth every 8 hours as needed for pain. ipratropium bromide (ATROVENT) 42 mcg (0.06 %) nasal spray Use 2 Sprays in the nose three times daily. 15 mL 1 tamsulosin (FLOMAX) 0.4 mg Take 0.4 mg by mouth once daily. potassium chloride SR (MICRO-K) 10 mEq CR capsule Take 1 capsule by mouth twice daily. 180 capsule 3 carbidopa-levodopa (SINEMET) 25-100 mg per tablet Take 1.5 tablets by mouth three times daily. 405 tablet 1 methIMAzole (TAPAZOLE) 5 mg tablet Take 1 tablet by mouth once daily. Per Dr. Mayela Murray, endocrinology. Cholecalciferol, Vitamin D3, 25 mcg (1,000 unit) cap Take 1,000 Units by mouth once daily. No current facility-administered medications for this visit. Review of Systems Constitutional: Negative for chills, diaphoresis, fever, malaise/fatigue and weight loss. HENT: Negative for congestion, ear discharge, ear pain, hearing loss, nosebleeds, sinus pain, sore throat and tinnitus. Eyes: Negative for blurred vision, double vision, photophobia, pain, discharge and redness. Respiratory: Negative for cough, hemoptysis, sputum production, shortness of breath, wheezing and stridor. Cardiovascular: Negative for chest pain, palpitations, orthopnea, claudication, leg swelling and PND. Gastrointestinal: Negative for abdominal pain, blood in stool, constipation, diarrhea, heartburn, melena, nausea and vomiting. Genitourinary: Negative for dysuria, flank pain, frequency, hematuria and urgency. Musculoskeletal: Negative for back pain, falls, joint pain, myalgias and neck pain. Skin: Negative for itching and rash. Neurological: Negative for dizziness, tingling, tremors, sensory change, speech change, focal weakness, seizures, loss of consciousness, weakness and headaches. Endo/Heme/Allergies: Negative for environmental allergies and polydipsia. Does not bruise/bleed easily. Psychiatric/Behavioral: Negative for depression, hallucinations, memory loss, substance abuse and suicidal ideas. The patient is not nervous/anxious and does not have insomnia. Physical Examination: Vitals:BP 121/67 Pulse 65 Wt 198 lb (89.8kg) SpO2 94% BP w/Orthostatic Vitals Date and Time Orthostatic BP Orthostatic Pulse BP Pulse BP Position BP Site BP Cuff Size 04/17/23 1103 -- -- 121/67 65 Sitting Right Arm Large Adult Last 2 Encounter Wt Readings: Date: Wt: 04/17/2023 89.8 kg (198 lb) 11/04/2022 85.7 kg (189 lb) Physical Exam Constitutional: General: He is not in acute distress. Appearance: He is not diaphoretic. HENT: Head: Normocephalic and atraumatic. Right Ear: External ear normal. Left Ear: External ear normal. Nose: Nose normal. Mouth/Throat: Pharynx: Oropharynx is clear. Eyes: General: Right eye: No discharge. Left eye: No discharge. Conjunctiva/sclera: Conjunctivae normal. Pupils: Pupils are equal, round, and reactive to light. Cardiovascular: Rate and Rhythm: Normal rate and regular rhythm. Heart sounds: Normal heart sounds, S1 normal and S2 normal. No murmur heard. No friction rub. No gallop. No S3 or S4 sounds. Pulmonary: Effort: Pulmonary effort is normal. No respiratory distress. Breath sounds: Normal breath sounds. No wheezing or rales. Chest: Chest wall: No tenderness. Musculoskeletal: General: Normal range of motion. Cervical back: Normal range of motion and neck supple. Skin: General: Skin is warm and dry. Neurological: Mental Status: He is alert and oriented to person, place, and time. Psychiatric: Mood and Affect: Mood normal. Thought Content: Thought content normal. Pertinent Labs: CBC: Hemoglobin (g/dL) Date Value 09/13/2021 14.4 05/17/2021 17.1 Hematocrit (%) Date Value 09/13/2021 43.2 05/17/2021 51.1 WBC (k/uL) Date Value 09/13/2021 6.37 05/17/2021 8.36 Platelet Count (k/uL) Date Value 09/13/2021 145 05/17/2021 138 BMP: Glucose (mg/dL) Date Value 09/13/2021 98 05/17/2021 88 Potassium (mmol/L) Date Value 09/13/2021 4.0 05/17/2021 3.5 Sodium (mmol/L) Date Value 09/13/2021 142 05/17/2021 141 Chloride (mmol/L) Date Value 09/13/2021 106 05/17/2021 100 CO2 (mmol/L) Date Value 09/13/2021 30 05/17/2021 28 Creatinine (mg/dL) Date Value 09/13/2021 0.93 05/17/2021 1.20 BUN (mg/dL) Date Value 09/13/2021 15 05/17/2021 22 Anion Gap (mmol/L) Date Value 09/13/2021 6 05/17/2021 13 Calcium (mg/dL) Date Value 05/17/2021 9.7 Calcium, Total (mg/dL) Date Value 09/13/2021 9.4 INR: Lipid Profile: Cholesterol, Total Date Value Ref Range Status 04/08/2022 120 <200 mg/dL Final Comment: <200 mg/dL, Desirable 200-239 mg/dL, Borderline high >239 mg/dL, High HDL Cholesterol Date Value Ref Range Status 04/08/2022 49 >39 mg/dL Final Comment: 40-59 mg/dL, Acceptable >59 mg/dL, High: Negative risk factor for coronary heart disease <40 mg/dL, Low: Positive risk factor for coronary heart disease LDL Cholesterol Date Value Ref Range Status 04/08/2022 60 <100 mg/dL Final Comment: <100 mg/dL, Optimal 100-129 mg/dL, Near optimal/above optimal 130-159 mg/dL, Borderline high 160-189 mg/dL, High >189 mg/dL, Very high Secondary prevention optimal LDL Cholesterol levels are recommended to be < 70 mg/dL Triglyceride Date Value Ref Range Status 04/08/2022 53 <150 mg/dL Final Comment: <150 mg/dL, Normal 150-199 mg/dL, Borderline high 200-499 mg/dL, High >499 mg/dL, Very high Hemoglobin A1C: No results found for: HGBA1C TSH: No results found for: TSHREFL Prior Cardiac Testing none Assessment and Plan: 77 years old gentleman prior history of mild to moderate nonobstructive coronary artery disease ASSESSMENT/PLAN: 1. Primary hypertension - ICD9: 401.9, ICD10: I10 (primary diagnosis) - Controlled - Continue current medications - Recommend home blood pressure monitoring, to bring results to next visit - Encouraged sodium restriction, DASH or Mediterranean diet - Recommend regular aerobic exercise 2. Hyperlipidemia LDL goal <100 - ICD9: 272.4, ICD10: E78.5 - Controlled - Continue current medications - Counseled on healthy diet and regular exercise 3. Coronary artery disease of [place] artery of [place] heart with stable angina pectoris (HCC) - ICD9: 414.01, 413.9, ICD10: I25.118 Continue medical therapy Douglas Mortensen MD Follow up planning: One year Electronically signed by Douglas Mortensen MD on April 17, 2023, 11:20 AM The above note was partially created using a dictation recognition software. A reasonable attempt has been made to correct any errors. documented in this [facility]23 Miscellaneous Notes* Telephone Encounter - Lisa Arreaga - 03/28/2023 11:15 AM EDT Patient has been identified by name and date of : Yes Requested Prescriptions Pending Prescriptions Disp Refills isosorbide mononitrate ER (IMDUR) 30 mg 24 hr tablet 90 tablet 3 Sig: Take 1 tablet by mouth once daily. metoprolol tartrate, short acting, (LOPRESSOR) 25 mg tablet 180 tablet 3 Sig: Take 1 tablet by mouth two times a day. RX INSTRUCTIONS: Patient aware RX will be sent to pharmacy. No need to notify patient. Lisa Marin documented in this encounterK[facility]09-01-2023 History of Present illness Narrative* Debra Castrejon - 02/03/2023 1:16 PM EDT Subjective: Patient presents to clinic c/o painful toenails. They state that the nails are especially painful with shoe gear and pressure. Patient states that nails 1-5 b; are painful. No other pedalcomplaints at this time. Patient states no change in medications or medical history since last visit. Objective: Patient presents to clinic ambulating in [facility] Vasc: DP and PT pulses are faintly palpable bilateral. CFT is less than 5 seconds bilateral. Skin temperature is warm to cool proximal to distal bilateral. There is no edema or varicosities noted. Neuro: Protective sensation is intact to the foot and toes when tested with the 5.07 SWM bilateral.Vibratory sensation is decreased at the hallux IPJ bilateral. The hallux is downgoing bilateral. Derm: Nails 1-5 b/l are painful, discolored-yellow, thick, crumbly, dystrophic and with subungal debris. Skin is of normal turgor, texture and hair growth is present bilateral. There are no hyperkeratosis, ulcerations, scars, verruca or other lesions noted. Ortho: Muscle strength is 5/5 for all pedal groups tested. Ankle joint DF is full with the knee extended with no pain or crepitus noted. 1st MPJ ROM is full bilateral. Assessment: (B35.1) Onychomycosis (primary encounter diagnosis) (M79.675) Pain in toe of left foot (M79.674) Pain in toe of right foot Plan: Patient was seen and evaluated. Nails 1-5 bilateral were debrided in length and thickness. Patient is to RTC in 3-4 months. Debra Castrejon DPM * Debby Acuna RN - 02/03/2023 1:12 PM EDT Patient presents with: Left Foot - Established Patient, Debridement of Nail Right Foot - Established Patient, Debridement of Nail documented in this encounterK[facility]08-31-[facility]23 [facility]08-21-2023 Miscellaneous Notes* Telephone Encounter - Renea Caraballo LPN - 01/23/2023 2:17 PM EDT Patient has been identified by name and date of : Yes,Patient phones for refill(s): Requested Prescriptions Pending Prescriptions Disp Refills atorvastatin (LIPITOR) 20 mg tablet 90 tablet 3 Sig: Take 1 tablet by mouth daily at bedtime. For cholesterol. Date of last office visit in primary care: 11/04/2022 Medicare Wellness: 05/10/2023 Last 2 Encounter Wt Readings: Date: Wt: 11/04/2022 85.7 kg (189 lb) 08/11/2022 85.1 kg (187 lb 9.6 oz) Previous labs/tests for medication: Cholesterol: HDL Cholesterol (mg/dL) Date Value 04/08/2022 49 02/09/2021 39 LDL Cholesterol (mg/dL) Date Value 04/08/2022 60 02/09/2021 58 ALT (U/L) Date Value 09/13/2021 13 02/09/2021 15 Non HDL Cholesterol (mg/dL) Date Value 04/08/2022 71 02/09/2021 73 Please advise. Thank you. Renea Caraballo LPN * Telephone Encounter - Jenniffer Oakley - 01/23/2023 11:07 AM EDT Patient has been identified by name and date of : Yes Requested Prescriptions Pending Prescriptions Disp Refills atorvastatin (LIPITOR) 20 mg tablet 90 tablet 3 Sig: Take 1 tablet by mouth daily at bedtime. For cholesterol. RX INSTRUCTIONS: Patient aware RX will be sent to pharmacy. No need to notify patient. Jenniffer Marin documented in this encounterK[facility]06-02-2023 History of Present illness Narrative* Delicia Quiñonez APRN.EMISSIONS INSPECTOR - 11/04/2022 11:41 AM EDT CC: Patient presents with: F/U 3 Month HPI Rohan Olivia Jr. is a 77 year old male who presents today for above. HTN-Medication changes:No Taking all medications as prescribed: Yes Side effects: No Home BP's: No Denies: headache, chest pain, palpitations, dyspnea, and peripheral edema. Last 3 Encounter BP Readings: Date: BP: 11/04/2022 108/60 08/11/2022 110/58 08/04/2022 137/65 Chronic diarrhea/IBS: prescribed Colestid by GI. He stopped taking because the pill is too big to swallow, he plans on discussing with Dr. Obrien at follow-up. Hyperthyroidism: managed by Dr. Marquis Murray. Taking Tapazole as prescribed. Anxiety: taking Paxil 20 mg daily. Doing well on current dose Parkinson's: neurology with [facility]. Taking Sinemet, denies side effects. No new or worsening symptoms at this time. REVIEW OF SYSTEMS See HPI PAST MEDICAL HISTORY Diagnosis Date Acquired polycythemia 01/24/2013 Actinic Keratosis (Premalignant AK) 09/05/2010 Adenomatous colon polyp 10/09/2014 Anxiety 06/19/2009 BPH loc w/o Ur Obs/LUTS 06/19/2009 Chronic bronchitis (HCC) 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 Clostridium difficile diarrhea 08/21/2021 Enterocolitis due to Clostridium difficile 05/25/2015 Gross hematuria 01/30/2018 Hemarthrosis following procedure 07/23/2021 Right knee s/p TKR Hypertension 05/04/2009 Hyperthyroidism, subclinical 06/19/2009 OA (osteoarthritis) of knee 01/24/2013 Obesity 06/19/2009 Other chest pain Sandrita Mortensen MD. Cath [facility] 08/20/2020. Other pulmonary embolism with acute cor pulmonale (HCC) 01/30/2018 fall, right hip fracture, right total hip Other pulmonary embolism with acute cor pulmonale (HCC) Panic attacks 2000 previously on Xanax Parkinson's disease (HCC) 11/17/2021 Pulmonary hypertension (HCC) 01/30/2018 Renal cell cancer, left (HCC) 05/05/2022 Seborrheic keratosis 06/19/2009 PAST SURGICAL HISTORY Procedure Laterality Date COLONOSCOPY & POLYPECTOMY 01/13/2017 COLONOSCOPY & POLYPECTOMY 04/26/2022 COLONOSCOPY FLX DX W/COLLJ SPEC WHEN PFRMD 10/01/2014 Colonoscopy F COLONOSCOPY WITH BIOPSY 10/12/2018 biopsy negative, repeat 5 years LAP - RADICAL NEPHRECTOMY Left 02/16/2022 LAP STOMA CLOSURE, ILEOSTOMY 04/13/2015 closure of loop ileostomy LEFT HEART CATH,PERCUTANEOUS 08/20/2020 PAST SURGICAL HISTORY OF 03/1973 Right 4th digit reattachment PAST SURGICAL HISTORY OF 01/01/2015 Rectal/sigmoid resection RHINP PRIM LAT&ALAR CRTLGS&/ELVTN NASAL TI 1954 Rhinoplasty, nasal fracture TONSILLECTOMY PRIMARY/SECONDARY <AGE 12 1956 Tonsillectomy TOTAL HIP JOINT REPLACEMENT Right 01/12/2018 TOTAL KNEE REPLACEMENT Right 07/21/2021 TRANSURETHRAL ELEC-SURG PROSTATECTOM 05/14/2021 ALLERGIES Patient has no known allergies. MEDICATIONS traMADol (ULTRAM) 50 mg tablet Take 50 mg by mouth every 8 hours as needed for pain. ipratropium bromide (ATROVENT) 42 mcg (0.06 %) nasal spray Use 2 Sprays in the nose three times daily. tamsulosin (FLOMAX) 0.4 mg Take 0.4 mg by mouth once daily. potassium chloride SR (MICRO-K) 10 mEq CR capsule Take 1 capsule by mouth twice daily. PARoxetine (PAXIL) 20 mg tablet Take 1 tablet by mouth once daily. metoprolol tartrate, short acting, (LOPRESSOR) 25 mg tablet Take 1 tablet by mouth twice daily. isosorbide mononitrate ER (IMDUR) 30 mg 24 hr tablet Take 1 tablet by mouth once daily. LORazepam (ATIVAN) 1 mg tablet Take 1 tablet by mouth at bedtime as needed for anxiety for up to 90days. carbidopa-levodopa (SINEMET) 25-100 mg per tablet Take 1.5 tablets by mouth three times daily. atorvastatin (LIPITOR) 20 mg tablet Take 1 tablet by mouth daily at bedtime. For cholesterol. methIMAzole (TAPAZOLE) 5 mg tablet Take 1 tablet by mouth once daily. Per Dr. Mayela Murray, endocrinology. Cholecalciferol, Vitamin D3, 25 mcg (1,000 unit) cap Take 1,000 Units by mouth once daily. FAMILY HISTORY Problem Relation Age of Onset Psychiatry Mother Anxiety COPD Mother Heart Mother Heart failure, age 94 other (Other) Mother Parkinson's Cancer Father lung cancer, age 86 Psychiatry Sister Panic attacks Emphysema Maternal Grandfather 50 years working on [employer], coal smoke inhalation. Asthma Maternal Grandfather Colon Cancer Other Maternal 1st cousin age 40s Social History Tobacco Use Smoking status: Former Packs/day: 2.00 Years: 35.00 Pack years: 70.00 Types: Cigarettes Start date: 1964 Quit date: 07/05/1998 Years since quittin.3 Smokeless tobacco: Never Vaping Use Vaping Use: Never used Substance Use Topics Alcohol use: No Drug use: No PHYSICAL EXAM BP 108/60 Pulse 74 Resp 16 Wt 85.7 kg (189 lb) BMI 27.12 kg/m General Appearance: well appearing, in no acute distress, alert Lungs: Lungs clear to auscultation. No wheezing, rhonchi, rales. Heart: RRR without murmur, gallop, or rubs. No ectopy Health maintenance reviewed with patient: ADVANCE DIRECTIVE DISCUSSION due on 06/05/2022 LDL CHOLESTEROL due on 04/08/2023 COLORECTAL CANCER SCREENING due on 04/26/2023 ANNUAL PCP TEAM CHRONIC DISEASE VISIT due on 08/05/2023 BP CONTROLLED (<130/80) due on 08/12/2023 DIABETES SCREEN due on 09/13/2024 DTAP,TDAP,TD(2 - Td or Tdap) due on 03/15/2028 INFLUENZA Completed DEPRESSION ASSESSMENT Completed HEPATITIS C SCREENING Completed SHINGRIX VACCINE Completed COVID-19 VACCINE Completed PNEUMOCOCCAL: 65+ Completed DATA REVIEWED: Most recent labs ASSESSMENT/PLAN: 1. Primary hypertension - ICD9: 401.9, ICD10: I10 (primary diagnosis) - Controlled - Continue current medications - Recommend home blood pressure monitoring, to bring results to next visit - Encouraged sodium restriction, DASH or Mediterranean diet - Recommend regular aerobic exercise 2. Chronic diarrhea - ICD9: 787.91, ICD10: K52.9 Follow-up and medications per GI 3. Anxiety - ICD9: 300.00, ICD10: F41.9 Stable - LORAZEPAM 1 MG TABLET PDMP website checked and validated. All prescriptions have been APPROPRIATELY filled. No suspiciousactivity was identified. 11/04/2022 by Delicia Quiñonez APRN.CNP - PAROXETINE 20 MG TABLET 4. Insomnia, unspecified type - ICD9: 780.52, ICD10: G47.00 Stable - LORAZEPAM 1 MG TABLET 5. Hyperlipidemia LDL goal <100 - ICD9: 272.4, ICD10: E78.5 - Continue current medications - Counseled on healthy diet and regular exercise - LIPID PANEL BASIC 6. Hyperthyroidism, subclinical - ICD9: 242.90, ICD10: E05.90 Medications and follow-up per Dr. Murray 7. Platelets decreased (HCC) - ICD9: 287.5, ICD10: D69.6 Stable Prescription instructions reviewed with patient as applicable. Potential red flag symptoms discussed with the patient. Reviewed appropriate action plan to take if red flag symptoms occur. Patient agreeable to treatment plan. Delicia Quiñonez APRN.CNP documented in this encounterK[facility]03-[facility]23 History of Present illness Narrative* Angelica Khloe, YAW.EMISSIONS INSPECTOR - 08/11/2022 11:30 AM EST Images from the original note were not included. [facility] [place] Follow-up Visit Follow-up note August 11, 2022 HPI: Mr. Olivia presents today for a follow-up visit. Per his previous visit on 03/17/22: G20 Parkinson's disease (HCC) (primary encounter diagnosis) Comment: Patient previously seen for Parkinson's disease after initial appointment and diagnosis made by movement disorder clinic. He was started on Sinemet 25-100mg TID, however, at time of previousappointment he reported frequently missing doses which included the dose prior to the time of his last OV. Past exam with finding of bradykinesia, retropulsion, shuffling gait, intermittent resting tremor, and decreased arm swing bilaterally. He reports today that he took his AM dose of Sinemet andat time of exam is has been roughly four hours since time of medication. Exam improved since that noted at last OV. Minimal shuffling and improved speed of movements. No tremor noted at rest. He is currently using a cane for ambulation outside of the house. Gait is still slightly unstable. He has completed course of PT. Can consider further PT if balance worsens. He does report that at home tremor can worsen throughout the day and can be bothersome when eating. Of note, he has seen outside neurology since his last appointment who made recommendation for increase in Sinemet dose. Though exam is much improved, he would like to increase dose and will increase to 1.5 tablets TID. Will also havehim adjust timing of medication so that he takes it at 0730, 1230, and 1730. If SE occur with increase in dose he will decrease back to one tablet TID and notify the office. Patient encouraged to continue to complete therapy exercises at home and stay active within limitations. G45.9 TIA (transient ischemic attack) Comment: Hx of TIA for which he is following with outside neurology. On review of neurology notes pt underwent CTA and MRI. CTA noting 70% L ICA and stenosis and he is currently following with a vascular surgeon. For stroke prevention he is taking ASA 81mg and Lipitor, however, given recent renal surgery he was instructed to stop his ASA. Encouraged patient to follow up with his catalyst recovery operator and surgeon to determine when he may restart ASA. States walking has been pretty good. Always takes his cane with him when out of the house as extra precaution. Shaking only when waking up in the middle of the night or towards the morning. Shaking while eating has improved. Most of the time during the day he does not have any issues. Takes Sinemetevery morning but will occasional miss dose in afternoon or evening. States he will be busy and just forget. Has an alarm on his phone but his phone stopped working and he has not reset alarm. Did trip the day after Thanksgiving when pulling a chair out. His dog was behind him and he trippedover the dog. He was taken to the hospital by EMS because he hit his ribs and head. Was kept for two days for observation. No abnormal findings. No freezing when walking. Difficulty buttoning buttonsand other tasks with fine motor dexterity. Denies hallucinations. Will act out dreams or yell out at night. Woke up at 0230 and when he went to get out of bed he felt like the room was spinning around him. [place] nauseated and was shaking. He used his cane to get to the bathroom and then went back to sleep. Woke up at 0600 and things were still moving/spinning. Not set off by position change. Laid there for a few more hours and told his he needed to go to the ED. EMS took him to [facility]. Was there for four hours. Continuous from middle of night to when he was in ED. Had CT scan. Has had two vertigo episodes in the past and this felt similar; 15 years ago and 3-4 years ago. Denies associated speech changes. Reports possible double vision with this event. Had some build up of wax in his ears. Deniesfocal weakness, n/t. Not taking ASA. Did not follow up with nephrology. Still on hold from kidney surgery. States he asked his PCP who did not feel he needed to restart the ASA. Still taking Lipitor. Followed up regarding carotid stenosis. See below. Per Dr. Jimenes on 04/12/22: Therefore with my own personal review of his images of his CTA and my interpretation of his carotid duplex exam I do not believe that surgical intervention regarding his left carotid is warranted. I recommend maximization of his medical care as he is doing. Among his other medications he is on jose rvastatin and I believe low-dose aspirin. I recommend carotid duplex imaging 1 year and office follow-up. He is certainly welcome to return sooner if there is a change in his progress. 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 Clostridium difficile diarrhea 08/21/2021 Enterocolitis due to Clostridium difficile 05/25/2015 Gross hematuria 01/30/2018 Hemarthrosis following procedure 07/23/2021 Right knee s/p TKR Hypertension 05/04/2009 Hyperthyroidism, subclinical 06/19/2009 OA (osteoarthritis) of knee 01/24/2013 Obesity 06/19/2009 Other chest pain Sandrita Mortensen MD. Cath [facility] 08/20/2020. Other pulmonary embolism with acute cor pulmonale (HCC) 01/30/2018 fall, right hip fracture, right total hip Other pulmonary embolism with acute cor pulmonale (HCC) Panic attacks 2000 previously on Xanax Parkinson's disease (HCC) 11/17/2021 Pulmonary hypertension (HCC) 01/30/2018 Renal cell cancer, left (HCC) 05/05/2022 Seborrheic keratosis 06/19/2009 PAST SURGICAL HISTORY Procedure Laterality Date COLONOSCOPY & POLYPECTOMY 01/13/2017 COLONOSCOPY & POLYPECTOMY 04/26/2022 COLONOSCOPY FLX DX W/COLLJ SPEC WHEN PFRMD 10/01/2014 Colonoscopy F COLONOSCOPY WITH BIOPSY 10/12/2018 biopsy negative, repeat 5 years LAP - RADICAL NEPHRECTOMY Left 02/16/2022 LAP STOMA CLOSURE, ILEOSTOMY 04/13/2015 closure of loop ileostomy LEFT HEART CATH,PERCUTANEOUS 08/20/2020 PAST SURGICAL HISTORY OF 03/1973 Right 4th digit reattachment PAST SURGICAL HISTORY OF 01/01/2015 Rectal/sigmoid resection RHINP PRIM LAT&ALAR CRTLGS&/ELVTN NASAL TI 1954 Rhinoplasty, nasal fracture TONSILLECTOMY PRIMARY/SECONDARY <AGE 12 1956 Tonsillectomy TOTAL HIP JOINT REPLACEMENT Right 01/12/2018 TOTAL KNEE REPLACEMENT Right 07/21/2021 TRANSURETHRAL ELEC-SURG PROSTATECTOM 05/14/2021 Current Outpatient Medications on File Prior to Visit Medication Sig Acetaminophen 500 mg cap Take 500 mg by mouth every 6 hours as needed. tamsulosin (FLOMAX) 0.4 mg Take 0.4 mg by mouth once daily. potassium chloride SR (MICRO-K) 10 mEq CR capsule Take 1 capsule by mouth twice daily. PARoxetine (PAXIL) 20 mg tablet Take 1 tablet by mouth once daily. metoprolol tartrate, short acting, (LOPRESSOR) 25 mg tablet Take 1 tablet by mouth twice daily. isosorbide mononitrate ER (IMDUR) 30 mg 24 hr tablet Take 1 tablet by mouth once daily. LORazepam (ATIVAN) 1 mg tablet Take 1 tablet by mouth at bedtime as needed for anxiety for up to 90days. carbidopa-levodopa (SINEMET) 25-100 mg per tablet Take 1.5 tablets by mouth three times daily. atorvastatin (LIPITOR) 20 mg tablet Take 1 tablet by mouth daily at bedtime. For cholesterol. methIMAzole (TAPAZOLE) 5 mg tablet Take 1 tablet by mouth once daily. Per Dr. Mayela Murray, endocrinology. Cholecalciferol, Vitamin D3, 25 mcg (1,000 unit) cap Take 1,000 Units by mouth once daily. No current facility-administered medications on file prior to visit. Social History Tobacco Use Smoking status: Former Packs/day: 2.00 Years: 35.00 Pack years: 70.00 Types: Cigarettes Start date: 1964 Quit date: 07/05/1998 Years since quittin.0 Smokeless tobacco: Never Vaping Use Vaping Use: Never used Substance Use Topics Alcohol use: No Drug use: No ALLERGIES No Known Allergies Review of Systems: Constitutional: denies fever, + weight loss, loss of appetite ENT: denies loss of hearing, vertigo Vision: denies blurring vison, double vision/diplopia Cardiopulmonary: denies chest pain, + palpitations Respiratory: denies shortness of breath GI: denies recent nausea, vomiting, + diarrhea, constipation : denies incontinence Sleep: denies issues with sleeping Musculoskeletal: + weakness (knees) Back/spine: denies + low back or cervical pains Neuro: Denies + tremors, loss of feeling, dizziness, seizure, blackout, paresthesia, facial paresthesia, facial weakness, + difficulty in speech (at appt over the summer- taken to ED), slurring of words, dysarthria, dysphagia, memory loss, headache Physical Exam: 08/11/22 1128 BP: 110/58 Pulse: (!) 56 Resp: 16 Temp: 36.7 C (98 F) SpO2: 97% Weight: 85.1 kg (187 lb 9.6 oz) Patient is alert and in no distress. Dress is appropriate. Mood is appropriate Breathing appears regular and unstressed Neurologic examination: Cognitively intact. No deficits. No formal MMSE performed. CN: Pupils equal and reactive to light, extraocular movements intact with no nystagmus (double vision with lateral eye movements), face is symmetric with no facial droop, hearing intact bilaterally, symmetric evaluation of the soft palate, tongue is midline with no deviation, shoulder shrug is symmetric. Motor exam shows 5/5 strength symmetric through the upper and lower extremities in all groups tested. Sensory intact to light touch in all extremities. Vibratory sensation is decreased to ankle in BLE. Deep tendon reflexes are brisk and symmetric at the biceps, brachioradialis, triceps, patella, and achilles bilaterally. Negative Chase's bilaterally. Coordination: No dysmetria on finger to nose. No drift seen. WILLIE of pronation and supination, finger and hand tapping slow bilaterally R>L (unable to fully close R fist d/t past sx). Toe tapping decreased bilaterally. No rigidity in BUE. No tremor at rest. No tremor with ambulation. Improvement in shuffling gait; slight limp R (knee and hip replacement). Able to rise from chair without using arms. Slightly stooped posture. Arm swing symmetric. Five step turn. Labs/studies: CT Brain 10/24/21: FINDINGS: Normal soft tissue structures. Normal calvarium. There is mild cerebral atrophy with widening of the extra-axial spaces and ventricular dilatation. There are areas of decreased attenuation within the white matter tracts of the supratentorial brain, consistent with microvascular disease changes. Normal basal ganglia and thalami. Normal brainstem. Normal cerebellum. There is no intracranial hemorrhage. There are no findings of an acute ischemic infarction. Atherosclerotic calcification of the cavernous portions of the internal carotid arteries as well as the vertebral arteries. Stable 1.4 cm polyp or retention cyst at the asymmetry of the left maxillary sinus. CTA Head/Neck 10/18/21: FINDINGS: Normal bilateral petrous carotid arteries. There is calcified plaque formation of the right cavernous carotid artery, without a cross-sectional luminal stenosis. There is calcified plaque formation of the left cavernous carotid artery, without a cross-sectional luminal stenosis. Normal right A1 segments of the anterior cerebral artery. Normal left A1 segments of the anterior cerebral artery. Normal intact anterior communicating artery (ACOM). Normal bilateral A2 segments of the anterior cerebral arteries. Normal right M1 and M2 segments of the middle cerebral arteries, with a normal M1 bifurcation. Normal left M1 and M2 segments of the middle cerebral arteries, with a normal M1 bifurcation. Normal right posterior communicating artery (PCOM). Normal left posterior communicating artery (PCOM). Normal bilateral vertebral arteries. Normal basilar artery with a normal basilar bifurcation. The visualized bilateral superior cerebellar (SCA) arteries are normal. Normal bilateral P1, P2 and visualized P3 segments of the posterior cerebral arteries. There is no demonstrated aneurysm of the bill moore[place] of [place]. Mucosal thickening of the inferior aspects of the maxillary sinuses. AORTIC ARCH: There is atherosclerotic calcific plaque formation of the aortic arch and great vessels arising from the aortic arch, without a hemodynamically significant stenosis. There is a normal origin of the brachiocephalic, left common carotid, and left subclavian arteries. RIGHT CAROTID ARTERIES: Normal right common carotid artery (CCA). Normal right common carotid bulb. There is moderate atherosclerotic plaque formation of the origin of the right internal carotid artery with an estimated stenosis of 50-69% stenosis. Normal visualized cervical portion of the right internal carotid artery. Normal origin of the right external carotid artery (ECA). LEFT CAROTID ARTERIES: Normal left common carotid artery (CCA). Normal left common carotid bulb. There is extensive atherosclerotic plaque formation of the origin of the left internal carotid artery with an estimated stenosis of greater than 70%. Normal visualized cervical portion of the left internal carotid artery. Normal origin of the left external carotid artery (ECA). VERTEBRAL ARTERIES: There is enhancement within the bilateral vertebral arteries with a small left vertebral artery, and a dominant right vertebral artery. Nonstenotic atherosclerotic plaque of the right vertebral artery. Moderate degree of diffuse enlargement of both lobes of the thyroid gland with a substernal extension worse on the left side. Heterogeneous appearance. Component Latest Ref Rng & Units 08/16/2021 09/13/2021 WBC 3.70 - 11.00 k/uL 6.37 RBC 4.20 - 6.00 m/uL 4.71 Hemoglobin 13.0 - 17.0 g/dL 14.4 Hematocrit 39.0 - 51.0 % 43.2 MCV 80.0 - 100.0 fL 91.7 MCH 26.0 - 34.0 pg 30.6 MCHC 30.5 - 36.0 g/dL 33.3 RDW-CV 11.5 - 15.0 % 14.0 Platelet Count 150 - 400 k/uL 145 (L) MPV 9.0 - 12.7 fL 11.5 Neut% % 71.6 Abs Neut (ANC) 1.45 - 7.50 k/uL 4.56 Lymph% % 15.2 Abs Lymph 1.00 - 4.00 k/uL 0.97 (L) [place]% % 9.3 Abs [place] <0.87 k/uL 0.59 Eosin% % 2.7 Abs Eosin <0.46 k/uL 0.17 Baso% % 0.9 Abs Baso <0.11 k/uL 0.06 Immature Gran % % 0.3 IMMATURE GRANS (ABS) <0.10 k/uL <0.03 NRBC /100 WBC 0.0 Absolute nRBC <0.01 k/uL <0.01 DTYPE Auto Protein, Total 6.3 - 8.0 g/dL 6.4 Albumin 3.9 - 4.9 g/dL 4.0 Calcium 8.5 - 10.2 mg/dL 9.4 Bilirubin, Total 0.2 - 1.3 mg/dL 0.5 Alkaline Phosphatase 38 - 113 U/L 104 AST 14 - 40 U/L 18 ALT 10 - 54 U/L 13 Glucose 74 - 99 mg/dL 98 BUN 9 - 24 mg/dL 15 Creatinine 0.73 - 1.22 mg/dL 0.93 Sodium 136 - 144 mmol/L 142 Potassium 3.7 - 5.1 mmol/L 4.0 Chloride 97 - 105 mmol/L 106 (H) CO2 22 - 30 mmol/L 30 Anion Gap 9 - 18 mmol/L 6 (L) eGFR >=60 mL/min/1.73m 85 TSH 0.270 - 4.200 mIU/L 0.063 (L) Free T4 0.9 - 1.7 ng/dL 1.5 Assessment/Plan: G20 Parkinson's disease (HCC) (primary encounter diagnosis) Comment: Patient previously seen for Parkinson's disease after initial appointment and diagnosis made by movement disorder clinic. Symptoms stable at time of previous appointment, however, given concern by outside neurologist for increase in symptoms Sinemet 25-100mg was increased to 1.5 tablets TID. He reports he frequently misses afternoon and PM dose of medication, however, no significant worsening of symptoms. Exam remains stable today; minimal shuffling, no retropulsion, no tremor noted. He uses a cane for stability. Discussed importance of compliance with medication and recommend setting alarm on his phone which he has done in the past. As symptoms are stable and he has difficulty with medication, will return to one tablet TID at 0730, 1230, and 1730. Recommend continuing therapy exercises at home and staying active within limitations. G45.9 TIA (transient ischemic attack) H53.2 Diplopia R42 Vertigo Comment: Hx of TIA for which he was following with outside neurology. CTA and MRI brain completed at the time with CTA noting 70% L ICA stenosis. He has since had evaluation by vascular surgery and it was not felt that surgery was warranted. He was to continue maximization of medical care as he wasdoing. 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 He does report that he followed up with his PCP, however, on review of notes it appears aspirin was not restarted as there were no cardiac concerns. Discussed with the patient that ASA would be used for stroke prevention rather than for cardiac purposes. Would recommend restarting after appointment today. He remains on Lipitor as well. Of note, he reports episode of severe dizziness described as the room spinning which began 2 nights ago. Position change or movement was not a triggering factor. Symptoms persisted until the afternoon. He was seen in the ED where CT of brain was compl eted and unremarkable. At appointment today he also reports diplopia which appears to be present inboth eyes. No other focal neurological deficits on exam. As patient has not been taking ASA in addition to history of TIA as well as exam findings, concern for stroke/TIA. MRI of brain ordered for further evaluation. Office Visit on 08/11/22 MRI BRAIN WO YENNYON Angelica Ledbetter APRN.CNP I spent a total of 45 minutes on the date of the service which included preparing to see the patient, [id number] patient care, completing clinical documentation, obtaining and/or reviewing separately obtained history, performing a medically appropriate examination, counseling and educating the pat ient/family/caregiver, and ordering medications, tests, or procedures. documented in this encounterK[facility]-[address] Fox [facility] August 10, 2022 2:42pm Note Date/Time August 10, 2022 1:38 pm [facility] Medical Records Department [address] [place] [address] Emergency Department Summary 08/10/22 MR#: [id number] Acct: [id number] Name: ROHAN OLIVIA Rep #:[id number] : 1945 77 From: Akin Fox MD PCP: Dr. Brandon Cantor MD Status:R EG ER Location: ED HPI History of Present Illness Chief Complaint: Dizziness Detail of Chief Complaint: Dizziness, problems with balance Informant: patient and spouse/S.O. Onset/Context/Timing Onset: Today (0715 and later in the morning) and Yesterday (Last evening prior to going to bed) Context: Sudden Onset Timing: Intermittent Quality: Balance being off and movement Location: At home in the family room, bedroom this morning and bathroom this morning Current Severity: Gone Maximum Severity: Severe Worsened by: Upright position seems to make it worse Relieved by: Nothing [place] Associated Symptoms Associated Symptoms: Nausea without visual disturbance Narrative Narrative: Patient is a 77-year-old male with history of benign paroxysmal positional vertigo. He also has history of Parkinson's disease. He has had no change in his medications or dosages. He denies headache. He denies double vision, blurred vision or change in vision. He denies ringing's ears or decreased hearing. He denies trouble with speech or swallowing. He denies paresthesia, anesthesia or motor weakness. He denies cardiac or respiratory symptoms. He denied nausea or vomiting. He denied urologic symptoms. Prior similar symptoms: Yes (Paroxysmal benign positional vertigo) Recent Illness/Hospitalization: No [facility] Medical History Abnormal weight loss Acute respiratory failure with hypoxia Ambulates with cane Anxiety Arthritis Arthritis Back pain BPH (benign prostatic hyperplasia) Cancer Cardiology follow-up encounter Change in bowel habit Chronic diarrhea Chronic respiratory failure with hypoxia Closed right hip fracture Depression Diarrhea Difficulty swallowing Excessive bleeding Expressive aphasia Fall Former smoker Heartburn History of Clostridium difficile infection History of echocardiogram History of pain when walking Hypercholesterolemia Hyperlipidemia Hypertension Hyperthyroidism Hypothyroidism IBS (irritable bowel syndrome) Leg cramps Melanoma in situ of unspecified part of face Osteoarthritis Osteoporosis Parkinsons disease Polycythemia Prostate disease Pulmonary embolism Shortness of breath on exertion Skin cancer Syncope Thyrotoxicosis Wears dentures Wears glasses Home Medications metoprolol tartrate 25 mg tablet 25 mg PO BID heart 04/15/21 [History Last Taken 04/29/22] potassium chloride 10 mEq capsule,extended release 10 meq PO BID supplement 04/15/21 [History Last Taken 04/29/22] cholecalciferol (vitamin D3) 25 mcg (1,000 unit) tablet (Vitamin D3) 25 mcg PO DAILY health maintenance 07/07/21 [History Last Taken 04/29/22] acetaminophen 325 mg tablet 650 mg PO Q6H PRN Pain 10/18/21 [History Last Taken 3 Days Ago ~04/26/22] carbidopa 25 mg-levodopa 100 mg tablet 1.5 tablet PO TID PARKINSONS 10/18/21 [History Last Taken 04/29/22] isosorbide mononitrate 30 mg tablet,extended release 24 hr 30 mg PO DAILY ROCUZY95/16/22 [History Last Taken 04/29/22] lorazepam 1 mg tablet (Ativan) 1 mg PO DAILY PRN Anxiety 12/01/21 [History Last Taken 02/15/22] paroxetine HCl 20 mg tablet 20 mg PO DAILY DEPRESSION 12/07/21 [History Last Taken 02/15/22] atorvastatin 20 mg tablet 20 mg PO QHS CHOLESTEROL 02/08/22 [History Last Taken 04/28/22] tamsulosin 0.4 mg capsule 0.4 mg PO QHS urine flow 02/08/22 [History Last Taken 04/28/22] methimazole 5 mg tablet 5 mg PO DAILY THYROID 04/29/22 [History Last Taken 04/29/22] lidocaine 5 % topical patch 2 patch topical DAILY 14 days #30 ea 05/01/22 [Rx Last Taken Unknown] diazepam 2 mg tablet (Valium) 2 mg PO TID 3 days #9 tabs 08/10/22 [Rx Last Taken Unknown] Allergy/AdvReac Type Severity Reaction Status Date / Time No Known Allergies Allergy Verified 08/10/22 11:37 Family History Father Lung cancer Mother Parkinsons Heart failure Surgical History H/O colonoscopy History of cardiac catheterization History of colon surgery History of nephrectomy, left History of rhinoplasty History of tonsillectomy History of total knee replacement (TKR) History of total right hip replacement History of transurethral resection of prostate reattachment of severed finger stoma reversal Social History household members: spouse housing: house 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al status: employed 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: [employer] pets and animals: Yes pets and animals: cat(s) and dog(s) Smoking Status: Former smoker quit date: 06/05/98 pack-years: 72 second hand exposure: No alcohol intake: never substance use type: does not use seatbelt use: always ROS ROS ED Constitutional Constitutional ED: Denies chills, fever(s), subjective, sweats or weight loss Eyes Eyes: Denies blurry vision, change in vision or diplopia ENT ENT ED: Denies ear pain, rhinorrhea or sore throat Cardiovascular Cardiovascular: Denies chest pain, palpitations or racing heartbeat Respiratory/Chest Respiratory/Chest: Denies cough, dyspnea or dyspnea on exertion Gastrointestinal Gastrointestinal: Denies abdominal pain, diarrhea, melena, nausea or vomiting Genitourinary Genitourinary ED: Denies dysuria, hematuria or urinary frequency Musculoskeletal Musculoskeletal: Denies arthralgias, back pain, myalgias or neck pain Neurologic Neurologic: Denies headache(s), paresthesias or weakness Endocrine Endocrinology: Denies cold intolerance or heat intolerance Hematologic/Lymphatic Hematologic/Lymphatic: Reports systems reviewed and no addt'l complaints, exceptas documented EXAM Physical Exam Const Vital Signs: 08/10/22 11:38 Temperature 97.7 F L Temperature Source Temporal Pulse Rate 66 Respiratory Rate 18 Blood Pressure 170/83 H Blood Pressure Mean 112 Pulse Ox 93 Oxygen Delivery Method Room Air Positive well nourished and well developed General Appearance ED: well developed and NAD; Negative for cyanotic, diaphoretic or pallor HEENT Reports moist mucous membranes HEENT Narrative: Head is atraumatic normocephalic. Ears normal. External auditory canal canal normal. TMs normal. Nares patent. Uvula midline. No deviation tongue or protrusion. Posterior pharynx unremarkable. Eyes PERRL and EOMs intact bilaterally Eyes Narrative: There is no nystagmus. There is no APD. General Eye ED: Negative for pale conjunctiva or scleral icterus Neck no lymphadenopathy, supple and no JVD Neck Narrative: No carotid bruits no Chest Wall inspection of chest normal and palpation of chest normal Resp normal respiratory effort and clear to auscultation bilaterally Cardio regular rate, regular rhythm, S1 normal heart sound, S2 normal heart sound and no murmurs GI normal to inspection, nondistended, normoactive bowel sounds, non-tender, non-distended and no masses; Negative for hepatosplenomegaly Auscultation: normoactive bowel sounds Palpation: soft Back/Spine no CVA tenderness Cervical Spine: Negative for cervical spine tenderness Thoracic Spine / Upper Back: Negative for thoracic spinal tenderness Lumbar Spine / Lower Back: Negative for lumbar spinal tenderness Extremity normal to inspection General Extremety ED: Negative for edema or tenderness General Extremity: Negative for edema Neuro oriented x3, CN's II-XII intact bilaterally and no sensory deficits noted Neuro Narrative: There is no dysmetria. Romberg with eyes open and closed revealed past- pointingon both sides with eyes closed. Proprioception was normal. Macon-Hallpike maneuver was negative. The eye askew test was negative. The hint test was negative. Gait was observed and is not ataxic. He is able to walk on his heelsand toes. Tandem gait was performed adequately. There was no stumbling or falling. DTR symmetric with no clonus or Babinski sign. He withdrew slightly to Babinski testing bile laterally. Patient has slight slurring of his words which may be due to dentures and is not abnormal according to the . 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 Sensorium / Orientation: alert Motor Exam: strength 5/5 throughout Psych mental status grossly normal Skin no rashes or lesions noted, no wounds and No skin turgor normal General Skin Exam: Negative for elasticity normal, jaundice or pallor MDM MDM MDM Narrative Medical decision making narrative: Differential diagnosis includes central vertigo versus peripheral vertigo versusvertigo due to Parkinson's disease. Based on his physical exam and history thisdoes appear to have a positional component. With a normal neurologic exam and no evidence of any acute cerebellar findings and symptoms not being continuous makes this less likely to be a central process. This may represent vertigo due to his Parkinson's disease. History & Record Review Discussion w/independent historian: Patient Additional record(s) reviewed:: Prior inpatient record (Patient was seen severalyears ago for TIA. He was initially at Dr. Murray's office and sent in with neurologic symptoms which resolved.) Lab Data Attestation: I reviewed the patient's lab results. Lab results narrative: CBC is unremarkable. Basic metabolic panel was elevated creatinine 1.43. Labs: Laboratory Results - last 24 hr 08/10/22 08/10/22 08/10/22 11:28 11:28 11:43 WBC 6.6 RBC 5.70 Hgb 17.7 H Hct 52.5 MCV 92.1 MCH 31.1 MCHC 33.7 RDW Std Deviation 47.0 H RDW Coeff of Daisy 13.7 Plt Count 143 L MPV 11.0 Immature Gran % (Auto) 0.300 Neut % (Auto) 81.0 H Lymph % (Auto) 11.6 L [place] % (Auto) 5.7 Eos % (Auto) 0.9 Baso % (Auto) 0.5 Absolute Neuts (auto) 5.4 Absolute Lymphs (auto) 0.77 L Nucleated RBC % 0 Sodium 140 Potassium 3.9 Chloride 107 Carbon Dioxide 27.0 Anion Gap 6 BUN 19 H Creatinine 1.43 H Estim Creat Clear Calc 44.67 Est GFR (MDRD) Af Amer 62 Est GFR (MDRD) Non-Af 51 L BUN/Creatinine Ratio 13.3 Glucose 94 Calcium 10.0 POC Glucose 97 Radiography Diagnostic Testing: Clinical Impression(s) from Imaging Studies Brain CT 08/10/22 12:12 IMPRESSION: Chronic involutional changes of the brain. No acute hemorrhage Paranasal sinusitis Electronically Signed: Toni Christine MD at 12:59 EST , Treatment and Re-Evaluation :: Patient was informed of his CAT scan results and laboratory blood results. He presently is not vertiginous. Suspect this is benign paroxysmal positional vertigo. Patient was discharged with short course of Valium. Discharge Plan Triage Chief Complaint: Dizziness ED Provider: Akin Fox Dx/Rx/DC Orders Clinical Impression: Intermittent vertigo, Hypertension, Depression, Parkinsons disease, Hypercholesterolemia Instructions: ED Vertigo, Unspecified Prescriptions: New diazepam [Valium] 2 mg tablet 2 mg PO TID 3 Days Qty: 9 0RF No Action carbidopa-levodopa 25-100 mg tablet 1.5 tablet PO TID lorazepam [Ativan] 1 mg tablet 1 mg PO DAILY PRN (Reason: Anxiety) cholecalciferol (vitamin D3) [Vitamin D3] 25 mcg (1,000 unit) Tablet 25 mcg PO DAILY potassium chloride 10 mEq capsule, extended release 10 meq PO BID metoprolol tartrate 25 mg tablet 25 mg PO BID paroxetine HCl 20 mg tablet 20 mg PO DAILY MDD T isosorbide mononitrate 30 mg tablet extended release 24 hr 30 mg PO DAILY acetaminophen 325 mg Tablet 650 mg PO Q6H PRN (Reason: Pain) tamsulosin 0.4 mg capsule 0.4 mg PO QHS atorvastatin 20 mg tablet 20 mg PO QHS methimazole 5 mg tablet 5 mg PO DAILY lidocaine 5 % adhesive patch,medicated 2 patch topical DAILY 14 Days Qty: 30 0RF Rx Instructions: leave on most painful area for up to 12 hrs Primary Care Provider: Brandon Cantor Referrals: Brandon Cantor MD [Primary Care Provider] - 3-5 Days if not improving Disposition Disposition: Home, Self Care What to do if you have Problems For any increased pain, shortness of breath, bleeding, nausea or vomiting, chestpain, or any unexpected problems, contact your Primary Care Provider. Call [facility] ([phone]) or report to the closest Emergency Room. Call 911 if necessary. 08/10/22 1442 <Electronically signed by Akin Fox MD> Cosigner Signature (if applicable): CC: Dr. Brandon Cantor MD ~ Signed [facility] Work Phone: [phone] 144-705003-08-2023 Miscellaneous Notes* Telephone Encounter - Nancy Hawthorne RN - 08/10/2022 9:59 AM EST Triage protocol recommended: Call 911 now. Patient agreeable. Reason for Disposition SEVERE dizziness (vertigo) (e.g., unable to walk without assistance) Answer Assessment - Initial Assessment Questions Patient calling with main complaint of severe dizziness with mild nausea for several hours. States room is moving and spinning and saw side table shaking. Thinks it may be vertigo but is not sure. Pt laying down while on phone due to severe dizziness when sits up. Has to hold onto things when walks. with patient at home. Had vertigo episode about 2-3 years ago and nothing since, but having dizziness now. Dizziness began last night in middle of night and continues now. 1. DESCRIPTION: When sits up or tries to walk has severe dizziness. Everything spins and furniture appears to be shaking at times. 2. VERTIGO: room spinning 3. LIGHTHEADED: Denies feeling faint but more of a sensation he could fall any minute when up. 4. SEVERITY: severe 5. ONSET: hours ago, middle of night last night 6. AGGRAVATING FACTORS: worse when sits up 7. CAUSE: Pt not sure if vertigo or if something else that may be serious. Has history of TIA and hypertension. 8. RECURRENT SYMPTOM: as above 9. OTHER SYMPTOMS: -no SOB -no chest pain -no weakness/numbness - mild sinus pressure -no earache or changes in hearing -reports Dr. Cantor ordered him Atrovent nasal spray last week and it has improved his sinus issues. 10. : n/a Protocols used: Dizziness - [id number] documented in this encounterK[facility] History of Present illness Narrative* Brandon Cantor MD - 08/04/2022 11:20 AM EST This note was created using Textádoriter. Subjective Rohan Olivia Jr. is a 77 year old male. He did well since he was discharged for intractable back pain last fall. His back was minimally painful now. For some reason, his left hip started becoming painful 1 weeks ago, with sharp and stabbing pain varying from mild to severe 8/10. No triggers were noted, and Tylenol did not help pain when needed. He denied injury, fall, or change in activity. He was scheduled to see Dr. Phan in 2 weeks. He also complained of chronic runny nose when eating. His chronic conditions were stable. Review of Systems Constitutional: Negative. HENT: Positive for rhinorrhea. Negative for postnasal drip, sinus pressure, sneezing and sore throat. Respiratory: Negative. Gastrointestinal: Negative. Genitourinary: Negative. Musculoskeletal: Positive for arthralgias and gait problem. Neurological: Negative for tremors. ACTIVE PROBLEM LIST Hypertension Anxiety Bph With Obstruction/Lower Urinary Tract Symptoms Hyperthyroidism, Subclinical Oa (Osteoarthritis) of Knee Acquired Polycythemia Hyperlipidemia Ldl Goal <100 Irritable Bowel Syndrome With Diarrhea Elevated Prostate Specific Antigen (Psa) Idiopathic Peripheral Neuropathy Obesity, Class I, Bmi 30-34.9 Chronic Midline Low Back Pain Without Sciatica Cervicalgia Melanoma in Situ of Unspecified Part of Face (Hcc) Multiple Lung Nodules On CT Coronary Artery Disease of [place] Artery of [place] Heart With Stable Angina Pectoris (Hcc) Unsteady Gait Chronic Diarrhea Parkinson's Disease (Hcc) Renal Cell Cancer, Left (Hcc) Vasomotor Rhinitis Current Outpatient Medications Medication Sig Acetaminophen 500 mg cap Take 500 mg by mouth every 6 hours as needed. tamsulosin (FLOMAX) 0.4 mg Take 0.4 mg by mouth once daily. potassium chloride SR (MICRO-K) 10 mEq CR capsule Take 1 capsule by mouth twice daily. PARoxetine (PAXIL) 20 mg tablet Take 1 tablet by mouth once daily. metoprolol tartrate, short acting, (LOPRESSOR) 25 mg tablet Take 1 tablet by mouth twice daily. isosorbide mononitrate ER (IMDUR) 30 mg 24 hr tablet Take 1 tablet by mouth once daily. LORazepam (ATIVAN) 1 mg tablet Take 1 tablet by mouth at bedtime as needed for anxiety for up to 90days. carbidopa-levodopa (SINEMET) 25-100 mg per tablet Take 1.5 tablets by mouth three times daily. atorvastatin (LIPITOR) 20 mg tablet Take 1 tablet by mouth daily at bedtime. For cholesterol. methIMAzole (TAPAZOLE) 5 mg tablet Take 1 tablet by mouth once daily. Per Dr. Mayela Murray, endocrinology. Cholecalciferol, Vitamin D3, 25 mcg (1,000 unit) cap Take 1,000 Units by mouth once daily. No current facility-administered medications for this visit. Objective BP 137/65 (BP Site: Left Arm, BP Position: Sitting, BP Cuff Size: Large Adult) Pulse (!) 54 Resp 20 Wt 88.8 kg (195 lb 12.8 oz) BMI 28.09 kg/m Physical Exam Constitutional: General: He is not in acute distress. Cardiovascular: Rate and Rhythm: Regular rhythm. Bradycardia present. Heart sounds: No murmur heard. No gallop. Pulmonary: Effort: Pulmonary effort is normal. Breath sounds: Normal breath sounds. Abdominal: Palpations: Abdomen is soft. There is no mass. Tenderness: There is no abdominal tenderness. Hernia: No hernia is present. Musculoskeletal: Lumbar back: No tenderness or bony tenderness. Decreased range of motion. Negative right straight leg raise test and negative left straight leg raise test. Right hip: Normal. Left hip: Tenderness present. No deformity or crepitus. Decreased range of motion. Normal strength. Neurological: Mental Status: He is alert. Assessment and Plan 1. Acute hip pain, left - ICD9: 719.45, ICD10: M25.552 (primary diagnosis) Discussed medication dosage, usage, goals of therapy, and side effects. See Dr. Phan. - TRAMADOL 50 MG TABLET 2. Primary hypertension - ICD9: 401.9, ICD10: I10 - fair control - Continue current medication(s) 3. Coronary artery disease of [place] artery of [place] heart with stable angina pectoris (HCC) - ICD9: 414.01, 413.9, ICD10: I25.118 Stable. Mild. No aspirin needed. 4. Vasomotor rhinitis - ICD9: 477.9, ICD10: J30.0 Discussed medication dosage, usage, goals of therapy, and side effects. - IPRATROPIUM BROMIDE 42 MCG (0.06 %) NASAL SPRAY Brandno Cantor MD documented [facility] History of Present illness Narrative* Debra Castrejon - 07/18/2022 10:29 AM EST Subjective: Patient presents to clinic c/o painful toenails. They state that the nails are especially painful with shoe gear and pressure. Patient states that nails 1-5 b/l are painful. No other pedal complaints at this time. Patient states no change in medications or medical history since last visit. Objective: Patient presents to clinic ambulating in sneakers Vasc: DP palpable bilateral. Posterior tibial pusle nonpalpable b/l. CFT is less than 5 seconds bilateral. Skin temperature is warm to cool proximal to distal bilateral. There is mild edema or varicosities noted. Neuro: Protective sensation is decreased to the foot and toes when tested with the 5.07 SWM bilateral. Vibratory sensation is absent at the hallux IPJ bilateral. The hallux is downgoing bilateral. Derm: Nails 1-5 b/l are painful, discolored-yellow, thick, crumbly, dystrophic and with subungal debris. Skin is of thin and pallor and and hair growth is absent bilateral. There are no hyperkeratosis, ulcerations, scars, verruca or other lesions noted. Ortho: Muscle strength is 5/5 for all pedal groups tested. Ankle joint DF is decreased with the knee extended with no pain or crepitus noted. 1st MPJ ROM is decreased bilateral. Assessment: (B35.1) Onychomycosis (primary encounter diagnosis) (M79.675) Pain in toe of left foot (M79.674) Pain in toe of right foot Plan: Patient was seen and evaluated. Nails 1-5 bilateral were debrided in length and thickness. Patient is to RTC in 3-4 months. Debra Castrejon DPM * Daja Huerta RN - 07/18/2022 10:27 AM EST Patient presents with: Left Foot - Established Patient, Follow Up, nail care Right Foot - Established Patient, Follow Up, nail care Patient presents for 3 month follow up for nail care. Denies any new pain or problems with his feet. documented in this [facility]23 History of Present illness Narrative* Sharon Dougherty MD - 06/14/2022 10:00 AM EST Images from the original note were not included. . [facility] [place] [facility] Note Patient name: Rohan Olivia Jr. PCP: Brandon Cantor MD CC: Lung nodules HPI: Rohan Olivia Jr. 77 year old male former 70 pack year smoker, quit 1998 with PMH significantfor HTN, h/o provoked PE, RCC s/p left nephrectomy, Parkinson's, PAH, mild bronchiectasis, emphysema by CT and pulmonary nodularity former patient of Dr. Anderson, new to me. No significant respiratory symptoms despite upper lobe emphysema and mild bronchiectasis. Has occasional cough with mucus production which he relates to his postnasal drip. No significant shortness of breath, chest pain, wheezing. Several subcentimeter pulmonary nodules first noted on chest CT February 2020. Last CT chest August 2020 showed no change and no new nodules. He is due for his final CT for 2 years surveillance. DATA: PFT 2019: Review pulmonary function tests show no significant obstruction mild improvement in small airways obstruction postbronchodilator and normal lung volumes Labs: Last CBC normal Imaging / Diagnostic Studies: DATE OF EXAM: Aug 17 2020 2:30PM [facility] 0541 - CT CHEST WO IVCON / CLINICAL HISTORY: Lung nodules Compare to 02/2020 CT chest. 70 pack year ex-smoker. Comparison: 02/14/2020 RESULT: Limitations: None. Lines, tubes, and devices: None. Lung parenchyma and airways: There is mild dependent atelectasis. There is emphysema with mild, diffuse bronchiectasis. There are stable subcentimeter pulmonary nodules. For example, there is a stable 6 mm nodule seen within the right middle lobe, abutting the right heart border (series 5, image #109). Other subcentimeter pulmonary nodules are also stable. For example, there is a stable 4 mm nodule seen within the left lower lobe (series 5, image #130). Other subcentimeter pulmonary nodules arealso stable. There is no new pulmonary nodule. There is no pneumothorax or endobronchial Pleural space: There are trace bilateral pleural effusions. Lower neck, lymph nodes, and mediastinum: There is mild substernal extension of the left lobe of thyroid gland, stable. There are prominent, not pathologically enlarged mediastinal and bilateral hilar lymph nodes, stable, likely reactive. No jeevan axillary lymphadenopathy is identified. Heart, pericardium, and thoracic vessels: Atherosclerotic calcifications are present within the thoracic aorta and coronary arteries. The heart is normal in size, and there is no significant pericardial effusion. There is a tiny hiatal hernia. The main pulmonary is dilated, measuring approximately 3.3 cm, whichcan be seen with pulmonary arterial hypertension.. Bones and soft tissues: There is scoliosis, osteopenia, and multilevel degenerative change seen within the thoracic spine. Bilateral shoulder DJD. A few presumed bone islands are incidentally noted within the osseous structures.. Upper abdomen: There is cholelithiasis. There are hepatic as well as bilateral renal cysts. Subcentimeter, low-attenuation lesions seen within the liver are too small to characterize but are stable and statistically relate to subcentimeter cysts. There are stable prominent, not pathologically enlarged abdominal lymph nodes, likely reactive. IMPRESSION: No significant interval change in CT appearance of the chest. Stable subcentimeter pulmonary nodules, measuring up to 6 mm in size. Emphysema with mild, diffuse bronchiectasis. A follow-up examination is recommended in one year in order to assess stability. Trace bilateral pleural effusions. Mild dependent atelectasis. Prominent, not pathologically enlarged mediastinal and bilateral hilar lymph nodes, likely reactive. Tiny hiatal hernia. Dilated main pulmonary artery, measuring approximately 3.3 cm, which can be seen with pulmonary arterial hypertension. Cholelithiasis. Hepatic and renal cysts. Stable subcentimeter, low-attenuation lesions within liverare too small to characterize but statistically relate to subcentimeter cysts. I personally reviewed the images and agree with the above assessment PAST MEDICAL HISTORY Diagnosis Date Acquired polycythemia 01/24/2013 Actinic Keratosis (Premalignant AK) 09/05/2010 Adenomatous colon polyp 10/09/2014 Anxiety 06/19/2009 BPH loc w/o Ur Obs/LUTS 06/19/2009 Chronic bronchitis (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 Clostridium difficile diarrhea 08/21/2021 Enterocolitis due to Clostridium difficile 05/25/2015 Gross hematuria 01/30/2018 Hemarthrosis following procedure 07/23/2021 Right knee s/p TKR Hypertension 05/04/2009 Hyperthyroidism, subclinical 06/19/2009 OA (osteoarthritis) of knee 01/24/2013 Obesity 06/19/2009 Other chest pain Sandrita Mortensen MD. [facility] 08/20/2020. Other pulmonary embolism with acute cor pulmonale ([facility]) 01/30/2018 fall, right hip fracture, right total hip Other pulmonary embolism with acute cor pulmonale ([facility]) Panic attacks 2000 previously on Xanax Parkinson's disease ([facility]) 11/17/2021 Pulmonary hypertension ([facility]) 01/30/2018 Renal cell cancer, left ([facility]) 05/05/2022 Seborrheic keratosis 06/19/2009 ALLERGIES No Known Allergies Acetaminophen 500 mg cap Take 500 mg by mouth every 6 hours as needed. tamsulosin (FLOMAX) 0.4 mg Take 0.4 mg by mouth once daily. potassium chloride SR (MICRO-K) 10 mEq CR capsule Take 1 capsule by mouth twice daily. PARoxetine (PAXIL) 20 mg tablet Take 1 tablet by mouth once daily. metoprolol tartrate, short acting, (LOPRESSOR) 25 mg tablet Take 1 tablet by mouth twice daily. isosorbide mononitrate ER (IMDUR) 30 mg 24 hr tablet Take 1 tablet by mouth once daily. LORazepam (ATIVAN) 1 mg tablet Take 1 tablet by mouth at bedtime as needed for anxiety for up to 90days. carbidopa-levodopa (SINEMET) 25-100 mg per tablet Take 1.5 tablets by mouth three times daily. atorvastatin (LIPITOR) 20 mg tablet Take 1 tablet by mouth daily at bedtime. For cholesterol. methIMAzole (TAPAZOLE) 5 mg tablet Take 1 tablet by mouth once daily. Per Dr. Mayela Murray, endocrinology. Cholecalciferol, Vitamin D3, 25 mcg (1,000 unit) cap Take 1,000 Units by mouth once daily. Social History Tobacco Use Smoking status: Former Packs/day: 2.00 Years: 35.00 Pack years: 70.00 Types: Cigarettes Start date: 1964 Quit date: 07/05/1998 Years since quittin.9 Smokeless tobacco: Never Vaping Use Vaping Use: Never used Substance Use Topics Alcohol use: No Drug use: No FAMILY HISTORY Problem Relation Age of Onset Psychiatry Mother Anxiety COPD Mother Heart Mother Heart failure, age 94 other (Other) Mother Parkinson's Cancer Father lung cancer, age 86 Psychiatry Sister Panic attacks Emphysema Maternal Grandfather 50 years working on [employer], coal smoke inhalation. Asthma Maternal Grandfather Colon Cancer Other Maternal 1st cousin age 40s PAST SURGICAL HISTORY Procedure Laterality Date COLONOSCOPY & POLYPECTOMY 01/13/2017 COLONOSCOPY & POLYPECTOMY 04/26/2022 COLONOSCOPY FLX DX W/COLLJ SPEC WHEN PFRMD 10/01/2014 Colonoscopy F COLONOSCOPY WITH BIOPSY 10/12/2018 biopsy negative, repeat 5 years LAP - RADICAL NEPHRECTOMY Left 02/16/2022 LAP STOMA CLOSURE, ILEOSTOMY 04/13/2015 closure of loop ileostomy LEFT HEART CATH,PERCUTANEOUS 08/20/2020 PAST SURGICAL HISTORY OF 03/1973 Right 4th digit reattachment PAST SURGICAL HISTORY OF 01/01/2015 Rectal/sigmoid resection RHINP PRIM LAT&ALAR CRTLGS&/ELVTN NASAL TI 1954 Rhinoplasty, nasal fracture TONSILLECTOMY PRIMARY/SECONDARY <AGE 12 1956 Tonsillectomy TOTAL HIP JOINT REPLACEMENT Right 01/12/2018 TOTAL KNEE REPLACEMENT Right 07/21/2021 TRANSURETHRAL ELEC-SURG PROSTATECTOM 05/14/2021 PMH, Social history, family history and surgical history reviewed and updated in EMR REVIEW OF SYSTEMS: CONSTITUTIONAL: No fevers, chills, nightsweats, unintended weight loss HEENT: Positive nasal congestion/sinus symptoms, postnasal drip CARDIOVASCULAR: No chest pain, dyspnea, palpitations, orthopnea, PND, edema. PULM: See HPI GI: No dysphagia/odynophagia, problematic reflux : History of renal cell carcinoma NEURO: Some balance problems No peripheral weakness/paresthesias or numbness of concern. Ambulates with cane. Parkinson's disease MUSC-SKEL: Some arthritis pain. Previous joint replacements PSY: No concerns regarding depression, anxiety INTEGUMENTARY: No new skin changes or rashes PHYSICAL EXAMINATION: Wt 190 lb (86.2kg) BP 138/74, pulse 58, RR 18, SPO2 99% room air General Appearance: Frail elderly gentleman, NAD Skin: Skin color, texture, turgor normal, no suspicious rashes or lesions. Head: Normocephalic, no masses, lesions, tenderness or abnormalities. Eyes: Sclera, conjunctiva normal Neck: No JVD, no masses, no adenopathy Lungs: Not labored, normal to percussion, no wheezes or crackles Heart: Regular rate and rhythm, no murmurs gallops Extremities: No edema or clubbing Assessment/Plan: 1. Lung nodules -Multiple subcentimeter nodules predating history of renal cell carcinoma -Likely represents granulomatous disease -Chest CT for 2 years surveillance. If stable then no further CT needed unless he develops new issues or problems 2. Renal cell carcinoma -Status post left nephrectomy. No evidence of recurrence of disease. Follows with urology 3. Former cigarette smoker -Former 62-ygns-papl smoker having quit 1998 with sequelae of emphysema, asymptomatic -Does not qualify for low-dose chest CT cancer screening based on duration of smoking cessation Sharon Dougherty MD [facility] documented [facility] History of Present illness Narrative* Eugenia Douglas PURE CULTURE OPERATOR - 05/03/2022 11:22 AM EST TRANSITION CARE MANAGEMENT (TCM) INITIAL CONTACT [facility] Out[facility] Provider Action/FYI: TCM Initial contact with patient post discharge, spoke to patient. Patient identified by name and . TRANSITION CARE MANAGEMENT INITIAL OUTREACH DOCUMENTATION: Date of Outreach: 05/03/2022 Outreach Attempt 1: Contact Made Date of Discharge 05/01/2022 Some recent data might be hidden SUMMARY: -Pt discharged from [facility] on 05/01/22. -Admitted for: intractable back pain Do you have a hospital follow up appointment with your PCP? Appointment on 05/05/22 with pcp. Yes. Remind patient of appointment date, time, and location. If not within 14 calendar days of discharge - please reschedule accordingly. MEDICATIONS: Many patients have questions or concerns about their medications once they are home. Were you prescribed any new medications? If yes, what are those medications? Lidocaine patches Were you told to hold any medications? No Were any of your medications discontinued? No Do you have any questions about getting or taking your medications? No Your discharge instructions/After visit Summary (AVS) are important in guiding you through the recovery process. Is there anything I might help you understand? No Do you have all the necessary equipment and supplies at home? Yes Medical records from recent hospitalization: Placed for provider to review documented in this [facility]22 Hospital Discharge instructions Additional Instructions Continue to take Tylenol [id number] for couple of days Follow-up with your primary care doctor within a week Date of Discharge: [facility]/22[facility] Work Phone: [phone]) 736-572011-01-2022 History of Present illness Narrative* Debra Castrejon - 04/05/2022 11:58 AM EDT Subjective: Patient presents to clinic c/o painful toenails. They state that the nails are especially painful with shoe gear and pressure. Patient states that nails 1-5 b; are painful. No other pedalcomplaints at this time. Patient states no change in medications or medical history since last visit. Objective: Patient presents to clinic ambulating in sneaker Vasc: DP and PT pulses are palpable bilateral. CFT is less than 5 seconds bilateral. Skin temperature is warm to cool proximal to distal bilateral. There is no edema or varicosities noted. Neuro: Protective sensation is intact to the foot and toes when tested with the 5.07 SWM bilateral.The hallux is downgoing bilateral. Derm: Nails 1-5 b/l are painful, discolored-yellow, thick, crumbly, dystrophic and with subungal debris. Skin is of normal turgor, texture and hair growth is present bilateral. There are no hyperkeratosis, ulcerations, scars, verruca or other lesions noted. Ortho: Muscle strength is 5/5 for all pedal groups tested. Ankle joint DF is full with the knee extended with no pain or crepitus noted. Hammertoe is present b/l. Assessment: (B35.1) Onychomycosis (primary encounter diagnosis) (M79.675) Pain in toe of left foot (M79.674) Pain in toe of right foot Plan: Patient was seen and evaluated. Nails 1-5 bilateral were debrided in length and thickness. Patient is to RTC in 3-4 months. Debra Castrejon DPM * Susana Gonsalez LPN - 04/05/2022 11:25 AM EDT AMB ROOMING INTAKE FLOWSHEET DATA Risk Screening Do you have concerns about personal safety or safety in the home?: No Patient presents with: Left Foot - Established Patient, Follow Up, nail care Right Foot - Established Patient, Follow Up, nail care Susana Gonsalez LPN documented in this encounterK[facility]10-31-2022 History of Present illness Narrative* Douglas Mortensen MD - 04/04/2022 12:11 PM EDT Images from the original note were not included. Douglas Mortensen MD Interventional Cardiology [facility] [address], [place] [address] [phone] Chief Complaint Patient presents with: Established Patient Follow-Up HISTORY OF PRESENT ILLNESS: Mr. Olivia is a 76 year old male seen in my office for follow-up patient had prior history of hypertensive heart disease with nonobstructive mild to moderate coronary artery disease involve the right coronary artery and the obtuse marginal of the circumflex Remain asymptomatic denies any angina No symptoms or signs of congestive heart failure He underwent left nephrectomy for cancers right knee surgery and prostate surgery Cardiac Risk Factors age (male over 45, female over 55), hyperlipidemia, hypertension, family history of CAD PAST MEDICAL HISTORY Diagnosis Date Acquired polycythemia 01/24/2013 Actinic Keratosis (Premalignant [place]) 09/05/2010 Adenomatous colon polyp 10/09/2014 Anxiety 06/19/2009 BPH loc w/o Ur Obs/LUTS 06/19/2009 Chronic bronchitis (HCC) 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 Clostridium difficile diarrhea 08/21/2021 Enterocolitis due to Clostridium difficile 05/25/2015 Gross hematuria 01/30/2018 Hemarthrosis following procedure 07/23/2021 Right knee s/p TKR Hypertension 05/04/2009 Hyperthyroidism, subclinical 06/19/2009 OA (osteoarthritis) of knee 01/24/2013 Obesity 06/19/2009 Other chest pain Sandrita Mortensen MD. Cath /[facility] 08/20/2020. Other pulmonary embolism with acute cor pulmonale (HCC) 01/30/2018 fall, right hip fracture, right total hip Other pulmonary embolism with acute cor pulmonale (HCC) Panic attacks 2001 previously on Xanax Parkinson's disease (HCC) 11/17/2021 Pulmonary hypertension (HCC) 01/30/2018 Seborrheic keratosis 06/19/2009 PAST SURGICAL HISTORY Procedure Laterality Date COLONOSCOPY & POLYPECTOMY 01/13/2017 COLONOSCOPY FLX DX W/COLLJ SPEC WHEN PFRMD 10/01/2014 Colonoscopy F COLONOSCOPY WITH BIOPSY 10/12/2018 biopsy negative, repeat 5 years LAP STOMA CLOSURE, ILEOSTOMY 04/13/2015 closure of loop ileostomy LEFT HEART CATH,PERCUTANEOUS 08/20/2020 PAST SURGICAL HISTORY OF 03/1973 Right 4th digit reattachment PAST SURGICAL HISTORY OF 01/01/2015 Rectal/sigmoid resection RHINP PRIM LAT&ALAR CRTLGS&/ELVTN NASAL TI 1954 Rhinoplasty, nasal fracture TONSILLECTOMY PRIMARY/SECONDARY <AGE 12 1956 Tonsillectomy TOTAL HIP JOINT REPLACEMENT Right 01/12/2018 TOTAL KNEE REPLACEMENT Right 07/21/2021 TRANSURETHRAL ELEC-SURG PROSTATECTOM 05/14/2021 FAMILY HISTORY Problem Relation Age of Onset Psychiatry Mother Anxiety COPD Mother Heart Mother Heart failure, age 94 other (Other) Mother Parkinson's Cancer Father lung cancer, age 86 Psychiatry Sister Panic attacks Emphysema Maternal Grandfather 50 years working on [employer], coal smoke inhalation. Asthma Maternal Grandfather Colon Cancer Other Maternal 1st cousin age 40s Social History Tobacco Use Smoking status: Former Packs/day: 2.00 Years: 35.00 Pack years: 70.00 Types: Cigarettes Start date: 1964 Quit date: 07/05/1998 Years since quittin.7 Smokeless tobacco: Never Vaping Use Vaping Use: Never used Substance Use Topics Alcohol use: No Drug use: No ALLERGIES No Known Allergies Medications: Current Outpatient Medications Medication Sig Dispense Refill PARoxetine (PAXIL) 20 mg tablet Take 1 tablet by mouth once daily. metoprolol tartrate, short acting, (LOPRESSOR) 25 mg tablet Take 1 tablet by mouth twice daily. 180tablet 3 isosorbide mononitrate ER (IMDUR) 30 mg 24 hr tablet Take 1 tablet by mouth once daily. 90 tablet 3 LORazepam (ATIVAN) 1 mg tablet Take 1 tablet by mouth at bedtime as needed for anxiety for up to 90days. 30 tablet 0 carbidopa-levodopa (SINEMET) 25-100 mg per tablet Take 1.5 tablets by mouth three times daily. 405 tablet 1 atorvastatin (LIPITOR) 20 mg tablet Take 1 tablet by mouth daily at bedtime. For cholesterol. 90 tablet 3 methIMAzole (TAPAZOLE) 5 mg tablet Take 1 tablet by mouth once daily. Per Dr. Mayela Murray, endocrinology. potassium chloride SR (MICRO-K) 10 mEq CR capsule Take 1 capsule by mouth twice daily. 90 capsule 3 Cholecalciferol, Vitamin D3, 25 mcg (1,000 unit) cap Take 1,000 Units by mouth once daily. No current facility-administered medications for this visit. Review of Systems Constitutional: Negative for chills, diaphoresis, fever, malaise/fatigue and weight loss. HENT: Negative for congestion, ear discharge, ear pain, hearing loss, nosebleeds, sinus pain, sore throat and tinnitus. Eyes: Negative for blurred vision, double vision, photophobia, pain, discharge and redness. Respiratory: Negative for cough, hemoptysis, sputum production, shortness of breath, wheezing and stridor. Cardiovascular: Negative for chest pain, palpitations, orthopnea, claudication, leg swelling and PND. Gastrointestinal: Negative for abdominal pain, blood in stool, constipation, diarrhea, heartburn, melena, nausea and vomiting. Genitourinary: Negative for dysuria, flank pain, frequency, hematuria and urgency. Musculoskeletal: Negative for back pain, falls, joint pain, myalgias and neck pain. Skin: Negative for itching and rash. Neurological: Negative for dizziness, tingling, tremors, sensory change, speech change, focal weakness, seizures, loss of consciousness, weakness and headaches. Endo/Heme/Allergies: Negative for environmental allergies and polydipsia. Does not bruise/bleed easily. Psychiatric/Behavioral: Negative for depression, hallucinations, memory loss, substance abuse and suicidal ideas. The patient is not nervous/anxious and does not have insomnia. Physical Examination: Vitals:BP 120/60 Pulse 56 Wt 185 lb (83.9kg) BP w/Orthostatic Vitals Date and Time Orthostatic BP Orthostatic Pulse BP Pulse BP Position BP Site BP Cuff Size 04/04/22 1156 -- -- 120/60 56 Sitting Right Arm Regular Adult Last 2 Encounter Wt Readings: Date: Wt: 04/04/2022 83.9 kg (185 lb) 04/01/2022 83.5 kg (184 lb) Physical Exam Constitutional: General: He is not in acute distress. Appearance: He is not diaphoretic. HENT: Head: Normocephalic and atraumatic. Right Ear: External ear normal. Left Ear: External ear normal. Nose: Nose normal. Mouth/Throat: Pharynx: Oropharynx is clear. Eyes: General: Right eye: No discharge. Left eye: No discharge. Conjunctiva/sclera: Conjunctivae normal. Pupils: Pupils are equal, round, and reactive to light. Cardiovascular: Rate and Rhythm: Normal rate and regular rhythm. Heart sounds: Normal heart sounds, S1 normal and S2 normal. No murmur heard. No friction rub. No gallop. No S3 or S4 sounds. Pulmonary: Effort: Pulmonary effort is normal. No respiratory distress. Breath sounds: Normal breath sounds. No wheezing or rales. Chest: Chest wall: No tenderness. Musculoskeletal: General: Normal range of motion. Cervical back: Normal range of motion and neck supple. Skin: General: Skin is warm and dry. Neurological: Mental Status: He is alert and oriented to person, place, and time. Psychiatric: Mood and Affect: Mood normal. Behavior: Behavior normal. Thought Content: Thought content normal. Judgment: Judgment normal. Pertinent Labs: CBC: Hemoglobin (g/dL) Date Value 09/13/2021 14.4 05/17/2021 17.1 Hematocrit (%) Date Value 09/13/2021 43.2 05/17/2021 51.1 WBC (k/uL) Date Value 09/13/2021 6.37 05/17/2021 8.36 Platelet Count (k/uL) Date Value 09/13/2021 145 05/17/2021 138 BMP: Glucose (mg/dL) Date Value 09/13/2021 98 05/17/2021 88 Potassium (mmol/L) Date Value 09/13/2021 4.0 05/17/2021 3.5 Sodium (mmol/L) Date Value 09/13/2021 142 05/17/2021 141 Chloride (mmol/L) Date Value 09/13/2021 106 05/17/2021 100 CO2 (mmol/L) Date Value 09/13/2021 30 05/17/2021 28 Creatinine (mg/dL) Date Value 09/13/2021 0.93 05/17/2021 1.20 BUN (mg/dL) Date Value 09/13/2021 15 05/17/2021 22 Anion Gap (mmol/L) Date Value 09/13/2021 6 05/17/2021 13 Calcium (mg/dL) Date Value 05/17/2021 9.7 Calcium, Total (mg/dL) Date Value 09/13/2021 9.4 INR: Lipid Profile: Cholesterol, Total Date Value Ref Range Status 02/09/2021 112 <200 mg/dL Final Comment: <200 mg/dL, Desirable 200-239 mg/dL, Borderline high >239 mg/dL, High HDL Cholesterol Date Value Ref Range Status 02/09/2021 39 (L) >39 mg/dL Final Comment: 40-59 mg/dL, Acceptable >59 mg/dL, High: Negative risk factor for coronary heart disease <40 mg/dL, Low: Positive risk factor for coronary heart disease LDL Cholesterol Date Value Ref Range Status 02/09/2021 58 <100 mg/dL Final Comment: <100 mg/dL, Optimal 100-129 mg/dL, Near optimal/above optimal 130-159 mg/dL, Borderline high 160-189 mg/dL, High >189 mg/dL, Very high Secondary prevention optimal LDL Cholesterol levels are recommended to be < 70 mg/dL Triglyceride Date Value Ref Range Status 02/09/2021 73 <150 mg/dL Final Comment: <150 mg/dL, Normal 150-199 mg/dL, Borderline high 200-499 mg/dL, High >499 mg/dL, Very high Hemoglobin A1C: No results found for: HGBA1C TSH: No results found for: TSHREFL Prior Cardiac Testing none Assessment and Plan: 76 years old gentleman with mild to moderate nonobstructive coronary artery disease Will continue medical treatment Follow-up on yearly basis Follow up planning: One year Electronically signed by Douglas Mortensen MD on April 04, 2022, 12:11 PM The above note was partially created using a dictation recognition software. A reasonable attempt has been made to correct any errors. documented in this encounterK[facility]-28-2022 Instructions* Patient Instructions* Delicia Quiñonez APRN.CNP - 04/01/2022 11:36 AM EDT Increase Paxil back to one tablet daily Limit the amount of milk and milk products including chocolate in your diet documented in this encounterK[facility]10-28-2022 History of Present illness Narrative* Delicia Quiñonez APRN.CNP - 04/01/2022 11:21 AM EDT CC: Patient presents with: Medicare Wellness Exam HPI Rohan Olivia Jr. is a 76 year old male who presents today for follow-up. He has chronic diarrhea. Referred to Dr. Obrien for this and unintentional weight loss. There has been no change in diarrhea. Typically occurring in the middle of the night 4-5 days a week. Taking Imodium which does help. He has seen Dr. Obrien and is scheduled for colonoscopy in April. Admits to eating a lot of cheese and chocolate and drinks a lot of milk. His dose of Paxil was decreased to 10 mg in November to see if this was the cause of diarrhea. Diarrheahas not improved and anxiety is worsening, especially at night. Taking ativan more frequently at night now, at least 4-5 times a week. He is no longer losing weight since starting Tapazole, has gained a lot back His dose of Sinemet was recently increased by neurology. He has not seen his cassandra architect or paper products supervisor in a while. Not sure if he was supposed to follow-up. REVIEW OF SYSTEMS See HPI PAST MEDICAL HISTORY Diagnosis Date Acquired polycythemia 01/24/2013 Actinic Keratosis (Premalignant AK) 09/05/2010 Adenomatous colon polyp 10/09/2014 Anxiety 06/19/2009 BPH loc w/o Ur Obs/LUTS 06/19/2009 Chronic bronchitis (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 Clostridium difficile diarrhea 08/21/2021 Enterocolitis due to Clostridium difficile 05/25/2015 Gross hematuria 01/30/2018 Hemarthrosis following procedure 07/23/2021 Right knee s/p TKR Hypertension 05/04/2009 Hyperthyroidism, subclinical 06/19/2009 OA (osteoarthritis) of knee 01/24/2013 Obesity 06/19/2009 Other chest pain Sandrita Mortensen MD. Cath [facility] 08/20/2020. Other pulmonary embolism with acute cor pulmonale (HCC) 01/30/2018 fall, right hip fracture, right total hip Other pulmonary embolism with acute cor pulmonale (HCC) Panic attacks 2000 previously on Xanax Parkinson's disease (HCC) 11/17/2021 Pulmonary hypertension ([facility]) 01/30/2018 Seborrheic keratosis 06/19/2009 PAST SURGICAL HISTORY Procedure Laterality Date COLONOSCOPY & POLYPECTOMY 01/13/2017 COLONOSCOPY FLX DX W/COLLJ SPEC WHEN PFRMD 10/01/2014 Colonoscopy F COLONOSCOPY WITH BIOPSY 10/12/2018 biopsy negative, repeat 5 years LAP STOMA CLOSURE, ILEOSTOMY 04/13/2015 closure of loop ileostomy LEFT HEART CATH,PERCUTANEOUS 08/20/2020 PAST SURGICAL HISTORY OF 03/1973 Right 4th digit reattachment PAST SURGICAL HISTORY OF 01/01/2015 Rectal/sigmoid resection RHINP PRIM LAT&ALAR CRTLGS&/ELVTN NASAL TI 1954 Rhinoplasty, nasal fracture TONSILLECTOMY PRIMARY/SECONDARY <AGE 12 1956 Tonsillectomy TOTAL HIP JOINT REPLACEMENT Right 01/12/2018 TOTAL KNEE REPLACEMENT Right 07/21/2021 TRANSURETHRAL ELEC-SURG PROSTATECTOM 05/14/2021 ALLERGIES Patient has no known allergies. MEDICATIONS metoprolol tartrate, short acting, (LOPRESSOR) 25 mg tablet Take 1 tablet by mouth twice daily. isosorbide mononitrate ER (IMDUR) 30 mg 24 hr tablet Take 1 tablet by mouth once daily. LORazepam (ATIVAN) 1 mg tablet Take 1 tablet by mouth at bedtime as needed for anxiety for up to 90days. carbidopa-levodopa (SINEMET) 25-100 mg per tablet Take 1.5 tablets by mouth three times daily. atorvastatin (LIPITOR) 20 mg tablet Take 1 tablet by mouth daily at bedtime. For cholesterol. PARoxetine (PAXIL) 20 mg tablet Take 0.5 tablets by mouth once daily. methIMAzole (TAPAZOLE) 5 mg tablet Take 1 tablet by mouth once daily. Per Dr. Mayela Murray, endocrinology. potassium chloride SR (MICRO-K) 10 mEq CR capsule Take 1 capsule by mouth twice daily. Cholecalciferol, Vitamin D3, 25 mcg (1,000 unit) cap Take 1,000 Units by mouth once daily. FAMILY HISTORY Problem Relation Age of Onset Psychiatry Mother Anxiety COPD Mother Heart Mother Heart failure, age 94 other (Other) Mother Parkinson's Cancer Father lung cancer, age 86 Psychiatry Sister Panic attacks Emphysema Maternal Grandfather 50 years working on [employer], coal smoke inhalation. Asthma Maternal Grandfather Colon Cancer Other Maternal 1st cousin age 40s Social History Tobacco Use Smoking status: Former Packs/day: 2.00 Years: 35.00 Pack years: 70.00 Types: Cigarettes Start date: 1964 Quit date: 07/05/1998 Years since quittin.7 Smokeless tobacco: Never Vaping Use Vaping Use: Never used Substance Use Topics Alcohol use: No Drug use: No PHYSICAL EXAM BP 113/66 Pulse (!) 51 Resp 16 Ht 177.8 cm (5' 10) Wt 83.5 kg (184 lb) BMI 26.40 kg/m General Appearance: well appearing, in no acute distress, alert Lungs: Lungs clear to auscultation. No wheezing, rhonchi, rales. Heart: RRR without murmur, gallop, or rubs. No ectopy Health maintenance reviewed with patient: ADVANCE DIRECTIVE DISCUSSION Never done DEPRESSION ASSESSMENT Never done COVID-19 VACCINE(5 - Booster) due on 12/10/2021 LDL CHOLESTEROL due on 02/09/2022 ANNUAL PCP TEAM CHRONIC DISEASE VISIT due on 11/17/2022 BP CONTROLLED (<130/80) due on 03/17/2023 DIABETES SCREEN due on 09/13/2024 DTAP,TDAP,TD(2 - Td or Tdap) due on 03/15/2028 INFLUENZA Completed HEPATITIS C SCREENING Completed SHINGRIX VACCINE Completed PNEUMOCOCCAL: 65+ Completed DATA REVIEWED: Most recent labs ASSESSMENT/PLAN: 1. Medicare annual wellness visit, subsequent - ICD9: V70.0, ICD10: Z00.00 (primary diagnosis) See medicare wellness note 2. Chronic diarrhea - ICD9: 787.91, ICD10: K52.9 Advised to limit lactose intake. Okay to continue with Imodium as needed. Follow-up with Dr. Lam instructed 3. Anxiety - ICD9: 300.00, ICD10: F41.9 Worsening with decrease dose of Paxil and diarrhea did not improve. Increase back to 20 mg daily - PAROXETINE 20 MG TABLET 4. Insomnia, unspecified type - ICD9: 780.52, ICD10: G47.00 Secondary to diarrhea and anxiety. Limit Ativan use. See plans above 5. Primary hypertension - ICD9: 401.9, ICD10: I10 - good control - Continue current medication(s) - Recommended regular aerobic exercise. - Recommend home blood pressure monitoring, to bring results in on next visit - Goal of BP <130/80 6. Hyperlipidemia LDL goal <100 - ICD9: 272.4, ICD10: E78.5 - to be determined upon return of lab results - LIPID PANEL BASIC 7. Abnormal weight loss - ICD9: 783.21, ICD10: R63.4 Gaining weight back now 8. Hyperthyroidism, subclinical - ICD9: 242.90, ICD10: E05.90 Medications, monitoring and follow-up per endocrinology 9. Encounter for immunization - ICD9: V03.89, ICD10: Z23 - [employer] COVID-19 BIVALENT BOOSTER VACCINE, AGE 12+ YR 10. Multiple lung nodules on CT - ICD9: 793.19, ICD10: R91.8 Follow-up with pulmonology 11. Coronary artery disease of [place] artery of [place] heart with stable angina pectoris (HCC) - ICD9: 414.01, 413.9, ICD10: I25.118 Follow-up with cardiology Prescription instructions reviewed with patient as applicable. Potential red flag symptoms discussed with the patient. Reviewed appropriate action plan to take if red flag symptoms occur. Patient agreeable to treatment plan. Delicia Quiñonez APRN.CNP * Delicia Quiñonez APRN.CNP - 04/01/2022 11:14 AM EDT Medicare Yearly Visit Medical B eligibilty date 2000 Date of last exam 02/15/21 PAST MEDICAL HISTORY Diagnosis Date Acquired polycythemia 01/24/2013 Actinic Keratosis (Premalignant AK) 09/05/2010 Adenomatous colon polyp 10/09/2014 Anxiety 06/19/2009 BPH loc w/o Ur Obs/LUTS 06/19/2009 Chronic bronchitis (HCC) 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 Clostridium difficile diarrhea 08/21/2021 Enterocolitis due to Clostridium difficile 05/25/2015 Gross hematuria 01/30/2018 Hemarthrosis following procedure 07/23/2021 Right knee s/p TKR Hypertension 05/04/2009 Hyperthyroidism, subclinical 06/19/2009 OA (osteoarthritis) of knee 01/24/2013 Obesity 06/19/2009 Other chest pain Sandrita Mortensen MD. Cath [facility] 08/20/2020. Other pulmonary embolism with acute cor pulmonale (HCC) 01/30/2018 fall, right hip fracture, right total hip Other pulmonary embolism with acute cor pulmonale (HCC) Panic attacks 2000 previously on Xanax Parkinson's disease (HCC) 11/17/2021 Pulmonary hypertension (HCC) 01/30/2018 Seborrheic keratosis 06/19/2009 PAST SURGICAL HISTORY Procedure Laterality Date COLONOSCOPY & POLYPECTOMY 01/13/2017 COLONOSCOPY FLX DX W/COLLJ SPEC WHEN PFRMD 10/01/2014 Colonoscopy F COLONOSCOPY WITH BIOPSY 10/12/2018 biopsy negative, repeat 5 years LAP STOMA CLOSURE, ILEOSTOMY 04/13/2015 closure of loop ileostomy LEFT HEART CATH,PERCUTANEOUS 08/20/2020 PAST SURGICAL HISTORY OF 03/1973 Right 4th digit reattachment PAST SURGICAL HISTORY OF 01/01/2015 Rectal/sigmoid resection RHINP PRIM LAT&ALAR CRTLGS&/ELVTN NASAL TI 1954 Rhinoplasty, nasal fracture TONSILLECTOMY PRIMARY/SECONDARY <AGE 12 1956 Tonsillectomy TOTAL HIP JOINT REPLACEMENT Right 01/12/2018 TOTAL KNEE REPLACEMENT Right 07/21/2021 TRANSURETHRAL ELEC-SURG PROSTATECTOM 05/14/2021 ALLERGIES: Patient has no known allergies. Medications reviewed: Yes FAMILY HISTORY Problem Relation Age of Onset Psychiatry Mother Anxiety COPD Mother Heart Mother Heart failure, age 94 other (Other) Mother Parkinson's Cancer Father lung cancer, age 86 Psychiatry Sister Panic attacks Emphysema Maternal Grandfather 50 years working on [employer], coal smoke inhalation. Asthma Maternal Grandfather Colon Cancer Other Maternal 1st cousin age 40s SOCIAL HISTORY: Social History Tobacco Use Smoking status: Former Packs/day: 2.00 Years: 35.00 Pack years: 70.00 Types: Cigarettes Start date: 1964 Quit date: 07/05/1998 Years since quittin.7 Smokeless tobacco: Never Vaping Use Vaping Use: Never used Substance Use Topics Alcohol use: No Drug use: No Rohan has limited mobility and can not participate in aerobic exercise. He watches his diet for sodium, low fat and low cholesterol most of the time. List of current specialists seen: Gastroenterology- Dr. Obrien Endocrinology- Dr. Murray Neurology- Angelica Bentley APRN Ophthalmology- [facility]- Dr. Castrejon Cardiology- Dr. Mortensen Pulmonology- Dr. Anderson End of Live Planning discussed including patients advanced directive wishes: Yes. Does not have onemade Evidence of Cognitive Impairment: No What tool was used to assess the patients cognitive status? MiniCog 3/5. PHQ-2 / Depression screen He in the past two weeks denies having felt down, depressed, hopeless, or with little interest or pleasure in doing things. Functional Ability/Safety Screen 1. Was the patient's timed Up and Go test unsteady or longer than 30 seconds? No 2. Does the patient need help with the phone, transportation, shopping,preparing meals, housework, laundry, medications or managing money? No 3. Does your home have rugs in the hallway, lack of grab bars in the bathroom, lack of handrails onthe stairs or have poor lighting? No except no grab bars in the bathroom Hearing Evaluation: normal PHYSICAL EXAM BP 113/66 Pulse (!) 51 Resp 16 Ht 177.8 cm (5' 10) Wt 83.5 kg (184 lb) BMI 26.40 kg/m Alert and oriented X 3: YES Body mass index is 26.4 kg/m . ASSESSMENT/PLAN: 1. Medicare annual wellness visit, subsequent - ICD9: V70.0, ICD10: Z00.00 (primary diagnosis) The following prevention plan was discussed during the office visit and provided to the patient: - fall risk reduction - Counseled on healthy diet and regular exercise - Discussed need for and benefit of weight loss. BMI 26.40 kg/(m^2) - Depression screening tool completed and reviewed with patient. Based on score and interview, patient is not at risk for depression and recommended no further intervention at this time. - Patient was counseled [id number] by myself (the billing provider) for the following immunizations and vaccine components, including side effects: COVID- 19. Patient consents for immunization and understands risks and benefits. A VIS sheet on each immunization was given to the patient. - follow-up for medicare annual exam in one year Delicia Quiñonez APRN.CNP documented in this encounterK[facility]10-25-2022 Miscellaneous Notes* Telephone Encounter - Shirley Benoit Ma - 03/29/2022 1:27 PM EDT Last OV: 11/17/21 Next OV: 04/01/22 documented in this encounterK[facility]08-12-2022 Miscellaneous Notes* Telephone Encounter - Marquis Raymond Ma - 01/14/2022 2:41 PM EDT ELEONORA: 11/17/2021 Last refill: 08/16/2021 QTY: 90 Refills: 3 Patient's request for medication is as follows: Requested Prescriptions Pending Prescriptions Disp Refills atorvastatin (LIPITOR) 20 mg tablet 90 tablet 3 Sig: Take 1 tablet by mouth daily at bedtime. For cholesterol. Please approve the above prescription(s) to electronically send to pharmacy. Marquis Raymond Ma documented in this encounterK[facility]07-26-2022 Miscellaneous Notes* Telephone Encounter - Delicia Quiñonez APRN.CNP - 12/28/2021 9:09 AM EDT PDMP website checked and validated. All prescriptions have been APPROPRIATELY filled. No suspiciousactivity was identified. 12/28/2021 by Delicia Quiñonez APRN.ALFREDO * Telephone Encounter - Marquis Raymond Ma - 12/28/2021 7:18 AM EDT ELEONORA: 11/17/2021 Last refill: 07/16/2021 QTY: 30 Refills: 0 Patient's request for medication is as follows: Pending Prescriptions Disp Refills LORAZEPAM 1 MG TABLET 30 tablet 0 Sig: Take 1 tablet by mouth at bedtime as needed for anxiety for up to 180 days. BROOKS Class: C-IV GEORGI: No Please approve the above prescription(s) to electronically send to pharmacy. Marquis Raymond Ma documented in this encounterKettering [facility]07-01-2022 History of Present illness Narrative* Debra Pattsiomara - 12/03/2021 1:55 PM EDT Subjective: Patient presents to clinic c/o painful toenails. They state that the nails are especially painful with shoe gear and pressure. Patient states that nails b/l hallux are painful. No other pedal complaints at this time. Patient states no change in medications or medical history since last visit. Objective: Patient presents to clinic ambulating in [facility] Vasc: DP and PT pulses are palpable bilateral. CFT is less than 5 seconds bilateral. Skin temperature is warm to cool proximal to distal bilateral. There is no edema or varicosities noted. Neuro: Protective sensation is intact to the foot and toes when tested with the 5.07 SWM bilateral.Vibratory sensation is decreased at the hallux IPJ bilateral. The hallux is downgoing bilateral. Derm: Nails 1-5 b/l are painful, discolored-yellow, thick, crumbly, dystrophic and with subungal debris. Skin is of normal turgor, texture and hair growth is present bilateral. There are no hyperkeratosis, ulcerations, scars, verruca or other lesions noted. Ortho: Muscle strength is 5/5 for all pedal groups tested. Ankle joint DF is full with the knee extended with no pain or crepitus noted. 1st MPJ ROM is full bilateral. Assessment: (B35.1) Onychomycosis (primary encounter diagnosis) (M79.675) Pain in toe of left foot (M79.674) Pain in toe of right foot Plan: Patient was seen and evaluated. Nails 1-5 bilateral were debrided in length and thickness. Small bleed present to left hallux. Band aide applied Patient is to RTC in 3-4 months. Debra Castrejon DPM documented in this encounterK[facility]06-29-2022 Miscellaneous Notes* Telephone Encounter - Amrita Hernandez RN - 12/01/2021 5:21 PM EDT Spoke with patient. Given message from provider's office. Patient verbalizes understanding. Amrita Hernandez RN * Telephone Encounter - Amrita Hernandez RN - 12/01/2021 4:29 PM EDT Patient calling to ask if there was any thing from his Neuro exam that indicates he should not be driving? Amrita Hernandez RN documented in this encounterKettering [facility]06-23-2022 History of Present illness Narrative* Angelica Ledbetter APRN.EMISSIONS INSPECTOR - 11/25/2021 2:30 PM EDT Images from the original note were not included. [facility] [place] New Patient visit New Patient Consultation November 25, 2021 HPI: Mr. Olivia presents today secondary to issues of Parkinson's Disease. He states that he had a virtual visit with Dr. Simon in [place]. However, he lives in [place] so he would prefer to follow down in [place]. Per Dr. Simon on 10/11/21: ASSESSMENT: Mr. Olivia is a 76 year old man with tremors, mostly with activity. Difficult to evaluate this over teleneurology, but enough bradykinesia and symptoms to suggest PD. This can be confirmed in the office, but trial of carbidopa-levodopa is indicated based on current exam. Side effects discussed. PLAN: Already doing PT Carbidopa-levodopa 25-100 mg 1/2 tab po TID for a week then 1 tab TID. Follow-up in person when able First started noticing symptoms a few months ago. First noted very fine tremor. In the AM will shake. Takes Sinemet in the AM and by noon the tremors have almost resolved. Also states that every now and then his legs will shake. Sometimes feels dizzy. He has fallen onto the bed and chair. No recent falls. Had total knee 07/21/21 and two days later heslid out of a chair onto the floor. Could not stand up. Stayed in hospital for three days after that. Denies changes in taste or smell. Some trouble with fine motor coordination. He states his hastold him he will yell out at night. Reports recent diarrhea but no other b/b changes. Denies syncope. Reports a few episodes where his leg will be stuck and cannot move forward. Once in a while feelsoff balance. Keeps a cane with him if needed. Feels speech has gotten softer. No changes in facial e xpressions. Denies hallucinations. Denies memory concerns. Difficulty with handwriting; feels handwriting is smaller and more cramped together. Worse with tremor. Reports hx of difficulty swallowing;no worsening recently. Denies past neurological hx. Hx of panic attacks. Mother with hx of Parkinson's Disease. No chemical exposure. Currently taking Sinemet. Taking it at 0730, 1300, and [id number]. Not taking with meals. Last took his Sinemet at 0730 this AM. 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 Clostridium difficile diarrhea 08/21/2021 Enterocolitis due to Clostridium difficile 05/25/2015 Gross hematuria 01/30/2018 Hemarthrosis following procedure 07/23/2021 Right knee s/p TKR Hypertension 05/04/2009 Hyperthyroidism, subclinical 06/19/2009 OA (osteoarthritis) of knee 01/24/2013 Obesity 06/19/2009 Other chest pain Sandrita Mortensen MD. Cath [facility] 08/20/2020. Other pulmonary embolism with acute cor pulmonale (HCC) 01/30/2018 fall, right hip fracture, right total hip Other pulmonary embolism with acute cor pulmonale (HCC) Panic attacks 2001 previously on Xanax Pulmonary hypertension (HCC) 01/30/2018 Seborrheic keratosis 06/19/2009 PAST SURGICAL HISTORY Procedure Laterality Date COLONOSCOPY & POLYPECTOMY 01/13/2017 COLONOSCOPY FLX DX W/COLLJ SPEC WHEN PFRMD 10/01/2014 Colonoscopy F COLONOSCOPY WITH BIOPSY 10/12/2018 biopsy negative, repeat 5 years LAP STOMA CLOSURE, ILEOSTOMY 04/13/2015 closure of loop ileostomy LEFT HEART CATH,PERCUTANEOUS 08/20/2020 PAST SURGICAL HISTORY OF 03/1973 Right 4th digit reattachment PAST SURGICAL HISTORY OF 01/01/2015 Rectal/sigmoid resection RHINP PRIM LAT&ALAR CRTLGS&/ELVTN NASAL TI 1954 Rhinoplasty, nasal fracture TONSILLECTOMY PRIMARY/SECONDARY <AGE 12 1956 Tonsillectomy TOTAL HIP JOINT REPLACEMENT Right 01/12/2018 TOTAL KNEE REPLACEMENT Right 07/21/2021 TRANSURETHRAL ELEC-SURG PROSTATECTOM 05/14/2021 Current Outpatient Medications on File Prior to Visit Medication Sig carbidopa-levodopa (SINEMET 25-100) 25-100 mg per tablet Take 1/2 tab po at 730AM, 12:30PM, 5:30 PMfor first week. Week 2 start 1 tab at these times. potassium chloride SR (MICRO-K) 10 mEq CR capsule Take 1 capsule by mouth twice daily. atorvastatin (LIPITOR) 20 mg tablet Take 1 tablet by mouth daily at bedtime. For cholesterol. PARoxetine (PAXIL) 20 mg tablet Take 1 tablet by mouth once daily. LORazepam (ATIVAN) 1 mg tablet Take 1 tablet by mouth at bedtime as needed for anxiety for up to 180 days. Cholecalciferol, Vitamin D3, (VITAMIN D) 25 mcg (1,000 unit) cap Take 1,000 Units by mouth once daily. metoprolol tartrate, short acting, (LOPRESSOR) 25 mg tablet Take 1 tablet by mouth twice daily. isosorbide mononitrate ER (IMDUR) 30 mg 24 hr tablet Take 1 tablet by mouth once daily. dicyclomine (BENTYL) 10 mg capsule Take 1 capsule by mouth daily at bedtime. For bowel movement. No current facility-administered medications on file prior to visit. Social History Tobacco Use Smoking status: Former Smoker Packs/day: 2.00 Years: 35.00 Pack years: 70.00 Types: Cigarettes Start date: 1964 Quit date: 07/05/1998 Years since quittin.3 Smokeless tobacco: Never Used Vaping Use Vaping Use: Never used Substance Use Topics Alcohol use: No Drug use: No ALLERGIES No Known Allergies Review of Systems: Constitutional: denies fever, + weight loss, loss of appetite ENT: denies loss of hearing, vertigo Vision: denies blurring vison, double vision/diplopia Cardiopulmonary: denies chest pain, + palpitations Respiratory: denies shortness of breath GI: denies recent nausea, vomiting, + diarrhea, constipation : denies incontinence Sleep: denies issues with sleeping Musculoskeletal: + weakness (knees) Back/spine: denies + low back or cervical pains Neuro: Denies + tremors, loss of feeling, dizziness, seizure, blackout, paresthesia, facial paresthesia, facial weakness, difficulty in speech, slurring of words, dysarthria, dysphagia, memory loss, headache Physical Exam: 11/25/21 1440 BP: 128/82 Pulse: (!) 57 Resp: 18 Temp: 37.1 C (98.8 F) SpO2: 96% Weight: 78.9 kg (174 lb) Patient is alert and in no distress. Dress is appropriate. Mood is appropriate Breathing appears regular and unstressed Neurologic examination: Cognitively intact. No deficits. No formal MMSE performed. CN: Pupils equal and reactive to light, extraocular movements intact with no nystagmus, face is symmetric with no facial droop, hearing intact bilaterally, symmetric evaluation of the soft palate, tongue is midline with no deviation, shoulder shrug is symmetric. Motor exam shows 5/5 strength symmetric through the upper and lower extremities in all groups tested. Sensory intact to light touch in all extremities. Vibratory sensation is intact and symmetric all extremities. Deep tendon reflexes are symmetric at the biceps, brachioradialis, triceps, patella, and achilles bilaterally. Coordination: No dysmetria on finger to nose. No drift seen. WILLIE of pronation and supination, finger and hand tapping slow bilaterally. Toe tapping decreased bilaterally. Cog wheel to LUE. Intermittent resting tremor bilaterally. LUE tremor intermittently with ambulation. Shuffling gait. Retropulsion. Slightly stooped posture. Decreased arm swing bilaterall L>R. Eight step turn. Labs/studies: CT Brain 10/24/21: FINDINGS: Normal soft tissue structures. Normal calvarium. There is mild cerebral atrophy with widening of the extra-axial spaces and ventricular dilatation. There are areas of decreased attenuation within the white matter tracts of the supratentorial brain, consistent with microvascular disease changes. Normal basal ganglia and thalami. Normal brainstem. Normal cerebellum. There is no intracranial hemorrhage. There are no findings of an acute ischemic infarction. Atherosclerotic calcification of the cavernous portions of the internal carotid arteries as well as the vertebral arteries. Stable 1.4 cm polyp or retention cyst at the asymmetry of the left maxillary sinus. CTA Head/Neck 10/18/21: FINDINGS: Normal bilateral petrous carotid arteries. There is calcified plaque formation of the right cavernous carotid artery, without a cross-sectional luminal stenosis. There is calcified plaque formation of the left cavernous carotid artery, without a cross-sectional luminal stenosis. Normal right A1 segments of the anterior cerebral artery. Normal left A1 segments of the anterior cerebral artery. Normal intact anterior communicating artery (ACOM). Normal bilateral A2 segments of the anterior cerebral arteries. Normal right M1 and M2 segments of the middle cerebral arteries, with a normal M1 bifurcation. Normal left M1 and M2 segments of the middle cerebral arteries, with a normal M1 bifurcation. Normal right posterior communicating artery (PCOM). Normal left posterior communicating artery (PCOM). Normal bilateral vertebral arteries. Normal basilar artery with a normal basilar bifurcation. The visualized bilateral superior cerebellar (SCA) arteries are normal. Normal bilateral P1, P2 and visualized P3 segments of the posterior cerebral arteries. There is no demonstrated aneurysm of the [place] of [place]. Mucosal thickening of the inferior aspects of the maxillary sinuses. AORTIC ARCH: There is atherosclerotic calcific plaque formation of the aortic arch and great vessels arising from the aortic arch, without a hemodynamically significant stenosis. There is a normal origin of the brachiocephalic, left common carotid, and left subclavian arteries. RIGHT CAROTID ARTERIES: Normal right common carotid artery (CCA). Normal right common carotid bulb. There is moderate atherosclerotic plaque formation of the origin of the right internal carotid artery with an estimated stenosis of 50-69% stenosis. Normal visualized cervical portion of the right internal carotid artery. Normal origin of the right external carotid artery (ECA). LEFT CAROTID ARTERIES: Normal left common carotid artery (CCA). Normal left common carotid bulb. There is extensive atherosclerotic plaque formation of the origin of the left internal carotid artery with an estimated stenosis of greater than 70%. Normal visualized cervical portion of the left internal carotid artery. Normal origin of the left external carotid artery (ECA). VERTEBRAL ARTERIES: There is enhancement within the bilateral vertebral arteries with a small left vertebral artery, and a dominant right vertebral artery. Nonstenotic atherosclerotic plaque of the right vertebral artery. Moderate degree of diffuse enlargement of both lobes of the thyroid gland with a substernal extension worse on the left side. Heterogeneous appearance. Component Latest Ref Rng & Units 08/16/2021 09/13/2021 WBC 3.70 - 11.00 k/uL 6.37 RBC 4.20 - 6.00 m/uL 4.71 Hemoglobin 13.0 - 17.0 g/dL 14.4 Hematocrit 39.0 - 51.0 % 43.2 MCV 80.0 - 100.0 fL 91.7 MCH 26.0 - 34.0 pg 30.6 MCHC 30.5 - 36.0 g/dL 33.3 RDW-CV 11.5 - 15.0 % 14.0 Platelet Count 150 - 400 k/uL 145 (L) MPV 9.0 - 12.7 fL 11.5 Neut% % 71.6 Abs Neut (ANC) 1.45 - 7.50 k/uL 4.56 Lymph% % 15.2 Abs Lymph 1.00 - 4.00 k/uL 0.97 (L) [place]% % 9.3 Abs [place] <0.87 k/uL 0.59 Eosin% % 2.7 Abs Eosin <0.46 k/uL 0.17 Baso% % 0.9 Abs Baso <0.11 k/uL 0.06 Immature Gran % % 0.3 IMMATURE GRANS (ABS) <0.10 k/uL <0.03 NRBC /100 WBC 0.0 Absolute nRBC <0.01 k/uL <0.01 DTYPE Auto Protein, Total 6.3 - 8.0 g/dL 6.4 Albumin 3.9 - 4.9 g/dL 4.0 Calcium 8.5 - 10.2 mg/dL 9.4 Bilirubin, Total 0.2 - 1.3 mg/dL 0.5 Alkaline Phosphatase 38 - 113 U/L 104 AST 14 - 40 U/L 18 ALT 10 - 54 U/L 13 Glucose 74 - 99 mg/dL 98 BUN 9 - 24 mg/dL 15 Creatinine 0.73 - 1.22 mg/dL 0.93 Sodium 136 - 144 mmol/L 142 Potassium 3.7 - 5.1 mmol/L 4.0 Chloride 97 - 105 mmol/L 106 (H) CO2 22 - 30 mmol/L 30 Anion Gap 9 - 18 mmol/L 6 (L) eGFR >=60 mL/min/1.73m 85 TSH 0.270 - 4.200 mIU/L 0.063 (L) Free T4 0.9 - 1.7 ng/dL 1.5 Assessment/Plan: G20 Parkinson's disease (HCC) (primary encounter diagnosis) Comment: Patient presenting today for Parkinson's Disease. Previously seen by movement disorder clinic via teleneurology. [place] that symptoms suggestive of PD and started on Sinemet 25-100mg TID. Though patient reports he will frequently miss evening dose of medication.Today in office pt reports subjective symptoms of difficulty with fine motor tasks, handwriting changes. Also reporting sleep abnormalities; yelling out at night. Exam with finding of bradykinesia, retropulsion, shuffling gait, intermittent resting tremor, and decreased arm swing bilaterally. Note, pt did not take afternoon doseof Sinemet today before coming to appointment. Denies falls and currently using cane. Recently finished course of physical therapy following R knee surgery in July. Discussed importance of takingmedication regularly as prescribed. Will continue Sinemet as previously ordered. Discussed further use of physical therapy for improvement of balance and stability, however, will hold off at this time and consider at time of follow up. Patient encouraged to continue to complete therapy exercises at home and stay active within limitations. If balance worsens he will notify office at which time consult for PT will be ordered. Angelica Ledbetter APRN.ALFREDO I spent a total of 50 minutes on the date of the service which included preparing to see the patient, [id number] patient care, completing clinical documentation, obtaining and/or reviewing separately obtained history, performing a medically appropriate examination and counseling and educating the patient/family/caregiver. documented in this encounterK[facility] History of Present illness Narrative* Brandon Cantor MD - 11/17/2021 3:14 PM EDT This note was created using ShopPad. Subjective Rohan Olivia Jr. is a 76 year old male. He had profuse diarrhea this weekend and went to the ER. C. Difficile was negative. Diarrhea was better at this time but has been a recurring issue. He was still losing weight. Endocrinology started treatment for hyperthyroidism. His renal mass was being monitored by Dr. Connolly. He was admitted for a transient ischemic attack last month. He's not had any recurrence of symptoms. He is scheduled with Dr. William Jimenes for a vascular surgery consult. Review of Systems Constitutional: Positive for unexpected weight change. Negative for chills, diaphoresis and fever. HENT: Negative. Respiratory: Negative. Gastrointestinal: Negative for abdominal pain, blood in stool, nausea and vomiting. Genitourinary: Negative. Musculoskeletal: Positive for gait problem. Neurological: Positive for tremors. 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 Week 2 start 1 tab at these times. potassium chloride SR (MICRO-K) 10 mEq CR capsule Take 1 capsule by mouth twice daily. atorvastatin (LIPITOR) 20 mg tablet Take 1 tablet by mouth daily at bedtime. For cholesterol. PARoxetine (PAXIL) 20 mg tablet Take 1 tablet by mouth once daily. LORazepam (ATIVAN) 1 mg tablet Take 1 tablet by mouth at bedtime as needed for anxiety for up to 180 days. Cholecalciferol, Vitamin D3, (VITAMIN D) 25 mcg (1,000 unit) cap Take 1,000 Units by mouth once daily. metoprolol tartrate, short acting, (LOPRESSOR) 25 mg tablet Take 1 tablet by mouth twice daily. isosorbide mononitrate ER (IMDUR) 30 mg 24 hr tablet Take 1 tablet by mouth once daily. No current facility-administered medications for this visit. Objective BP 112/56 (BP Site: Left Arm, BP Position: Sitting, BP Cuff Size: Large Adult) Pulse 68 Temp 36.2 C (97.2 F) (Temporal Artery) Resp 24 Wt 77 kg (169 lb 12.8 oz) BMI 24.54 kg/m Physical Exam Constitutional: General: He is not in acute distress. HENT: Head: Normocephalic. Eyes: General: No scleral icterus. Cardiovascular: Rate and Rhythm: Normal rate and regular rhythm. Heart sounds: No murmur heard. No gallop. Pulmonary: Breath sounds: Normal breath sounds. Abdominal: General: Bowel sounds are normal. Palpations: Abdomen is soft. Tenderness: There is no abdominal tenderness. Musculoskeletal: Right lower leg: No edema. Left lower leg: No edema. Neurological: Mental Status: He is alert. Motor: Tremor present. Gait: Gait abnormal. Comments: Ambulatory with cane. ER reports reviewed. C. Difficile negative. Assessment and Plan 1. Chronic diarrhea - ICD9: 787.91, ICD10: K52.9 (primary diagnosis) - CONSULT TO GASTROENTEROLOGY 2. Abnormal weight loss - ICD9: 783.21, ICD10: R63.4 - CONSULT TO GASTROENTEROLOGY 3. Anxiety - ICD9: 300.00, ICD10: F41.9 Reduce dose to 1/2 tablet daily and see if this improves diarrhea. - PAROXETINE 20 MG TABLET 4. Parkinson's disease (HCC) - ICD9: 332.0, ICD10: G20 Stable. See printed instructions or information. Brandon Cantor MD documented in this encounterK[facility] History of Past illness Narrative* Problem Noted Date Resolved Date Abnormal weight loss 11/17/2021 08/04/2022 Tremors of nervous system 07/10/20212021 Other chest pain 08/10/2020 09/14/2020 Other pulmonary embolism with acute cor pulmonal e 01/30/2018 09/13/2018 Pulmonary hypertension 01/30/2018 9 Gross hematuria 01/30/2018 09/13/2018 Dyspnea on exertion 10/19/2017 09/13/2018 Flatulence 04/21/2016 03/16/2017 Enterocolitis due to Clostridium difficile 05/2510/22/2015 Ileus, postoperative 01/09/2015 07/22/2015 Seborrheic Keratoses 09/05/2010 07/26/2012 Actinic Damage///Sun-damaged skin 09/05/2010 07/26/2012 Solar lentigines 09/05/2010 07/26/2012 Stucco keratosis 09/05/2010 10/22/2015 Subclinical hyperthyroidism 08/26/200906/05 Obesity 06/19/2009 11/17/2021 documented as of this encounter (statuses as of 08/04/2022) [facility] of Past illness Narrative* Problem Noted Date Resolved Date Abnormal weight loss 11/17/2021 08/04/2022 Tremors of nervous system 07/10/20212021 Other chest pain 08/10/2020 09/14/2020 Other pulmonary embolism with acute cor pulmonal e 01/30/2018 09/13/2018 Pulmonary hypertension 01/30/2018 9 Gross hematuria 01/30/2018 09/13/2018 Dyspnea on exertion 10/19/2017 09/13/2018 Flatulence 04/21/2016 03/16/2017 Enterocolitis due to Clostridium difficile 05/2510/22/2015 Ileus, postoperative 01/09/2015 07/22/2015 Seborrheic Keratoses 09/05/2010 07/26/2012 Actinic Damage///Sun-damaged skin 09/05/2010 07/26/2012 Solar lentigines 09/05/2010 07/26/2012 Stucco keratosis 09/05/2010 10/22/2015 Subclinical hyperthyroidism 08/26/200906/05 Obesity 06/19/2009 11/17/2021 documented as of this encounter (statuses as of 08/11/2022) [facility] of Past illness Narrative* Problem Noted Date Resolved Date Abnormal weight loss 11/17/2021 08/04/2022 Tremors of nervous system 07/10/20212021 Other chest pain 08/10/2020 09/14/2020 Other pulmonary embolism with acute cor pulmonal e 01/30/2018 09/13/2018 Pulmonary hypertension 01/30/2018 9 Gross hematuria 01/30/2018 09/13/2018 Dyspnea on exertion 10/19/2017 09/13/2018 Flatulence 04/21/2016 03/16/2017 Enterocolitis due to Clostridium difficile 05/2510/22/2015 Ileus, postoperative 01/09/2015 07/22/2015 Seborrheic Keratoses 09/05/2010 07/26/2012 Actinic Damage///Sun-damaged skin 09/05/2010 07/26/2012 Solar lentigines 09/05/2010 07/26/2012 Stucco keratosis 09/05/2010 10/22/2015 Subclinical hyperthyroidism 08/26/200906/05 Obesity 06/19/2009 11/17/2021 documented as of this encounter (statuses as of 08/11/2022) [facility] of Past illness Narrative* Problem Noted Date Resolved Date Abnormal weight loss 11/17/2021 08/04/2022 Tremors of nervous system 07/10/20212021 Other chest pain 08/10/2020 09/14/2020 Other pulmonary embolism with acute cor pulmonal e 01/30/2018 09/13/2018 Pulmonary hypertension 01/30/2018 9 Gross hematuria 01/30/2018 09/13/2018 Dyspnea on exertion 10/19/2017 09/13/2018 Obesity, Class I, BMI 30-34.9 10/19/2017 Flatulence 04/21/2016 03/16/2017 Enterocolitis due to Clostridium difficile 05/2510/22/2015 Ileus, postoperative 01/09/2015 07/22/2015 Seborrheic Keratoses 09/05/2010 07/26/2012 Actinic Damage///Sun-damaged skin 09/05/2010 07/26/2012 Solar lentigines 09/05/2010 07/26/2012 Stucco keratosis 09/05/2010 10/22/2015 Subclinical hyperthyroidism 08/26/200906/05 Obesity 06/19/2009 11/17/2021 documented as of this encounter (statuses as of 11/04/2022) [facility] of Past illness Narrative* Problem Noted Date Diagnosed Date Resolved Date Abnormal weight loss 11/17/2021 023 Tremors of nervous system 07/10/2021 Other chest pain 08/10/2020 09/14/2020 Other pulmonary embolism wit h acute cor pulmonale 01/30/2018 09/13/2018 Pulmonary hypertension 01/30/201809/13 Gross hematuria 01/30/2018 09/13/2018 Dyspnea on exertion 10/19/2017 09/14/19 19 Obesity, Class I, BMI 30-34.9 10/19/2017 11/04/2022 Flatulence 04/21/2016 03/16/2017 Enterocolitis due to Clostridium difficile 05/25/2015 10/22/2015 Ileus, postoperative 01/09/2015 016 Seborrheic Keratoses 09/05/2010 013 Actinic Damage///Sun-damaged skin 09/05/2010 07/26/2012 Solar lentigines 09/05/2010 07/26/2012 Stucco keratosis 09/05/2010 10/22/2015 Subclinical hyperthyroidism 08/26/2009 06/16/2011 Obesity 06/19/2009 11/17/2021 documented as of this encounter (statuses as of 01/24/2023) [facility] Past illness Narrative* Problem Noted Date Diagnosed Date Resolved Date Abnormal weight loss 11/17/2021 023 Tremors of nervous system 07/10/2021 Other chest pain 08/10/2020 09/14/2020 Other pulmonary embolism wit h acute cor pulmonale 01/30/2018 09/13/2018 Pulmonary hypertension 01/30/201809/13 Gross hematuria 01/30/2018 09/13/2018 Dyspnea on exertion 10/19/2017 09/14/19 19 Obesity, Class I, BMI 30-34.9 10/19/2017 11/04/2022 Flatulence 04/21/2016 03/16/2017 Enterocolitis due to Clostridium difficile 05/25/2015 10/22/2015 Ileus, postoperative 01/09/2015 016 Seborrheic Keratoses 09/05/2010 013 Actinic Damage///Sun-damaged skin 09/05/2010 07/26/2012 Solar lentigines 09/05/2010 07/26/2012 Stucco keratosis 09/05/2010 10/22/2015 Subclinical hyperthyroidism 08/26/2009 06/16/2011 Obesity 06/19/2009 11/17/2021 documented as of this encounter (statuses as of 02/04/2023) [facility] of Past illness Narrative* Problem Noted Date Diagnosed Date Resolved Date Abnormal weight loss 11/17/2021 023 Tremors of nervous system 07/10/2021 Other chest pain 08/10/2020 09/14/2020 Other pulmonary embolism wit h acute cor pulmonale 01/30/2018 09/13/2018 Pulmonary hypertension 01/30/201809/13 Gross hematuria 01/30/2018 09/13/2018 Dyspnea on exertion 10/19/2017 09/14/19 19 Obesity, Class I, BMI 30-34.9 10/19/2017 11/04/2022 Flatulence 04/21/2016 03/16/2017 Enterocolitis due to Clostridium difficile 05/25/2015 10/22/2015 Ileus, postoperative 01/09/2015 016 Seborrheic Keratoses 09/05/2010 013 Actinic Damage///Sun-damaged skin 09/05/2010 07/26/2012 Solar lentigines 09/05/2010 07/26/2012 Stucco keratosis 09/05/2010 10/22/2015 Subclinical hyperthyroidism 08/26/2009 06/16/2011 Obesity 06/19/2009 11/17/2021 documented as of this encounter (statuses as of 02/13/2023) [facility] of Past illness Narrative* Problem Noted Date Diagnosed Date Resolved Date Abnormal weight loss 11/17/2021 023 Tremors of nervous system 07/10/2021 Other chest pain 08/10/2020 09/14/2020 Other pulmonary embolism wit h acute cor pulmonale 01/30/2018 09/13/2018 Pulmonary hypertension 01/30/201809/13 Gross hematuria 01/30/2018 09/13/2018 Dyspnea on exertion 10/19/2017 09/14/19 19 Obesity, Class I, BMI 30-34.9 10/19/2017 11/04/2022 Flatulence 04/21/2016 03/16/2017 Enterocolitis due to Clostridium difficile 05/25/2015 10/22/2015 Ileus, postoperative 01/09/2015 016 Seborrheic Keratoses 09/05/2010 013 Actinic Damage///Sun-damaged skin 09/05/2010 07/26/2012 Solar lentigines 09/05/2010 07/26/2012 Stucco keratosis 09/05/2010 10/22/2015 Subclinical hyperthyroidism 08/26/2009 06/16/2011 Obesity 06/19/2009 11/17/2021 documented as of this encounter (statuses as of 03/14/2023) [facility] of [facility] illness Narrative* Problem Noted Date Diagnosed Date Resolved Date Abnormal weight loss 11/17/2021 023 Tremors of nervous system 07/10/2021 Other chest pain 08/10/2020 09/14/2020 Other pulmonary embolism wit h acute cor pulmonale 01/30/2018 09/13/2018 Pulmonary hypertension 01/30/201809/13 Gross hematuria 01/30/2018 09/13/2018 Dyspnea on exertion 10/19/2017 09/14/19 19 Obesity, Class I, BMI 30-34.9 10/19/2017 11/04/2022 Flatulence 04/21/2016 03/16/2017 Enterocolitis due to Clostridium difficile 05/25/2015 10/22/2015 Ileus, postoperative 01/09/2015 016 Seborrheic Keratoses 09/05/2010 013 Actinic Damage///Sun-damaged skin 09/05/2010 07/26/2012 Solar lentigines 09/05/2010 07/26/2012 Stucco keratosis 09/05/2010 10/22/2015 Subclinical hyperthyroidism 08/26/2009 06/16/2011 Obesity 06/19/2009 11/17/2021 documented as of this encounter (statuses as of 03/28/2023) [facility] of [facility] illness Narrative* Problem Noted Date Diagnosed Date Resolved Date Abnormal weight loss 11/17/2021 023 Tremors of nervous system 07/10/2021 Other chest pain 08/10/2020 09/14/2020 Other pulmonary embolism wit h acute cor pulmonale 01/30/2018 09/13/2018 Pulmonary hypertension 01/30/201809/13 Gross hematuria 01/30/2018 09/13/2018 Dyspnea on exertion 10/19/2017 09/14/19 19 Obesity, Class I, BMI 30-34.9 10/19/2017 11/04/2022 Flatulence 04/21/2016 03/16/2017 Enterocolitis due to Clostridium difficile 05/25/2015 10/22/2015 Ileus, postoperative 01/09/2015 016 Seborrheic Keratoses 09/05/2010 013 Actinic Damage///Sun-damaged skin 09/05/2010 07/26/2012 Solar lentigines 09/05/2010 07/26/2012 Stucco keratosis 09/05/2010 10/22/2015 Subclinical hyperthyroidism 08/26/2009 06/16/2011 Obesity 06/19/2009 11/17/2021 documented as of this encounter (statuses as of 04/10/2023) [facility] of Past illness Narrative* Problem Noted Date Diagnosed Date Resolved Date Abnormal weight loss 11/17/2021 023 Tremors of nervous system 07/10/2021 Other chest pain 08/10/2020 09/14/2020 Other pulmonary embolism wit h acute cor pulmonale 01/30/2018 09/13/2018 Pulmonary hypertension 01/30/201809/13 Gross hematuria 01/30/2018 09/13/2018 Dyspnea on exertion 10/19/2017 09/14/19 19 Obesity, Class I, BMI 30-34.9 10/19/2017 11/04/2022 Flatulence 04/21/2016 03/16/2017 Enterocolitis due to Clostridium difficile 05/25/2015 10/22/2015 Ileus, postoperative 01/09/2015 016 Seborrheic Keratoses 09/05/2010 013 Actinic Damage///Sun-damaged skin 09/05/2010 07/26/2012 Solar lentigines 09/05/2010 07/26/2012 Stucco keratosis 09/05/2010 10/22/2015 Subclinical hyperthyroidism 08/26/2009 06/16/2011 Obesity 06/19/2009 11/17/2021 documented as of this encounter (statuses as of 04/17/2023) [facility] of [facility] illness Narrative* Problem Noted Date Diagnosed Date Resolved Date Abnormal weight loss 11/17/2021 023 Tremors of nervous system 07/10/2021 Other chest pain 08/10/2020 09/14/2020 Other pulmonary embolism wit h acute cor pulmonale 01/30/2018 09/13/2018 Pulmonary hypertension 01/30/201809/13 Gross hematuria 01/30/2018 09/13/2018 Dyspnea on exertion 10/19/2017 09/14/19 19 Obesity, Class I, BMI 30-34.9 10/19/2017 11/04/2022 Flatulence 04/21/2016 03/16/2017 Enterocolitis due to Clostridium difficile 05/25/2015 10/22/2015 Ileus, postoperative 01/09/2015 016 Seborrheic Keratoses 09/05/2010 013 Actinic Damage///Sun-damaged skin 09/05/2010 07/26/2012 Solar lentigines 09/05/2010 07/26/2012 Stucco keratosis 09/05/2010 10/22/2015 Subclinical hyperthyroidism 08/26/2009 06/16/2011 Obesity 06/19/2009 11/17/2021 documented as of this encounter (statuses as of 08/17/2023) [facility] Miscellaneous Notes* Telephone Encounter - Brandon Cantor MD - 10/19/2021 5:29 AM EDT Admitted. * Telephone Encounter - Brandon Cantor MD - 10/18/2021 12:09 PM EDT Okay. Noted and will wait for updates from the ER. * Telephone Encounter - Marie Bailey LPN - 10/18/2021 11:[address] Marquis Murray called and states, she could not finish her apt today and had to send the pt to ER. She felt he was having a stroke. He was having aphasia and could not give meds he was on and his was not able to either. Dr. Murray also asked me to send her the last office note, med list and labs done recently. Faxed to [phone]. Done. Marie Bailey LPN documented in this encounterK[facility]22 Instructions* Patient Instructions* Daja Simon DO - 10/11/2021 9:52 AM EDT Please be advised that all test results may take up to a week to be received. If you have not received your test results within this time frame please call the office at [phone]. Please note that during check out today you may be offered Dr. Joyner's wait list due to appointment availability. Please schedule the next available follow up appointment offered to you by the Patient [employer]. The office may contact you close to your expected return visit date to offer you a sooner appointment if a cancellation occurs. documented in this encounterK[facility] History of Present illness Narrative* Daja Simon DO - 10/11/2021 8:49 AM EDT VIRTUAL VISIT PROGRESS NOTE This is a virtual visit using Streamfile video visit. It required patient-provider interaction for themedical decision making as documented below. Rohan Olivia Jr. is a 76 year old man PMHx subclinical hyperthyroidism, HLD, HTN presenting for tremors. He has been having tremors for about 4-5 months. This is mainly with activity, can happen at rest. His mom had tremors with Parkinson's Disease. His voice gets soft. He has trouble following conversations. He has balance issues at times. He can shuffle. Memory is pretty good, seems more physical intrying to get words out at times. HISTORY REVIEWED (electronic chart updated): PAST MEDICAL HISTORY Diagnosis Date Acquired polycythemia 01/24/2013 Actinic Keratosis (Premalignant AK) 09/05/2010 Adenomatous colon polyp 10/09/2014 Anxiety 06/19/2009 BPH loc w/o Ur Obs/LUTS 06/19/2009 Chronic bronchitis (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 Clostridium difficile diarrhea 08/21/2021 Enterocolitis due to Clostridium difficile 05/25/2015 Gross hematuria 01/30/2018 Hemarthrosis following procedure 07/23/2021 Right knee s/p TKR Hypertension 05/04/2009 Hyperthyroidism, subclinical 06/19/2009 OA (osteoarthritis) of knee 01/24/2013 Obesity 06/19/2009 Other chest pain Sandrita Mortensen MD. [facility] 08/20/2020. Other pulmonary embolism with acute cor pulmonale (HCC) 01/30/2018 fall, right hip fracture, right total hip Other pulmonary embolism with acute cor pulmonale (HCC) Panic attacks 2001 previously on Xanax Pulmonary hypertension (HCC) 01/30/2018 Seborrheic keratosis 06/19/2009 PAST SURGICAL HISTORY Procedure Laterality Date COLONOSCOPY & POLYPECTOMY 01/13/2017 COLONOSCOPY FLX DX W/COLLJ SPEC WHEN PFRMD 10/01/2014 Colonoscopy F COLONOSCOPY WITH BIOPSY 10/12/2018 biopsy negative, repeat 5 years LAP STOMA CLOSURE, ILEOSTOMY 04/13/2015 closure of loop ileostomy LEFT HEART CATH,PERCUTANEOUS 08/20/2020 PAST SURGICAL HISTORY OF 03/1973 Right 4th digit reattachment PAST SURGICAL HISTORY OF 01/01/2015 Rectal/sigmoid resection RHINP PRIM LAT&ALAR CRTLGS&/ELVTN NASAL TI 1954 Rhinoplasty, nasal fracture TONSILLECTOMY PRIMARY/SECONDARY <AGE 12 1956 Tonsillectomy TOTAL HIP JOINT REPLACEMENT Right 01/12/2018 TOTAL KNEE REPLACEMENT Right 07/21/2021 TRANSURETHRAL ELEC-SURG PROSTATECTOM 05/14/2021 FAMILY HISTORY Problem Relation Age of Onset Psychiatry Mother Anxiety COPD Mother Heart Mother Heart failure, age 94 other (Other) Mother Parkinson's Cancer Father lung cancer, age 86 Psychiatry Sister Panic attacks Emphysema Maternal Grandfather 50 years working on [employer], coal smoke inhalation. Asthma Maternal Grandfather Colon Cancer Other Maternal 1st cousin age 40s Social History Tobacco Use Smoking status: Former Smoker Packs/day: 2.00 Years: 35.00 Pack years: 70.00 Types: Cigarettes Start date: 1964 Quit date: 07/05/1998 Years since quittin.2 Smokeless tobacco: Never Used Vaping Use Vaping Use: Never used Substance Use Topics Alcohol use: No Drug use: No Current Outpatient Medications Medication Sig potassium chloride SR (MICRO-K) 10 mEq CR capsule Take 1 capsule by mouth twice daily. atorvastatin (LIPITOR) 20 mg tablet Take 1 tablet by mouth daily at bedtime. For cholesterol. PARoxetine (PAXIL) 20 mg tablet Take 1 tablet by mouth once daily. LORazepam (ATIVAN) 1 mg tablet Take 1 tablet by mouth at bedtime as needed for anxiety for up to 180 days. Cholecalciferol, Vitamin D3, (VITAMIN D) 25 mcg (1,000 unit) cap Take 1,000 Units by mouth once daily. metoprolol tartrate, short acting, (LOPRESSOR) 25 mg tablet Take 1 tablet by mouth twice daily. isosorbide mononitrate ER (IMDUR) 30 mg 24 hr tablet Take 1 tablet by mouth once daily. dicyclomine (BENTYL) 10 mg capsule Take 1 capsule by mouth daily at bedtime. For bowel movement. No current facility-administered medications for this visit. ALLERGIES No Known Allergies REVIEW OF SYSTEMS: As noted in HPI PHYSICAL EXAMINATION: VIDEO EXAM: (if completed, performed via video enabled technology) GENERAL: alert and appropriate, in no distress, well-hydrated, well nourished and happy, smiling, interactive HEAD: normocephalic, no abnormality or lesion noted RESPIRATORY: breathing non-labored HEART: no cynosis NEUROLOGIC: Awake, alert, +hypophonia, EOMI, no facial assymmetry , tongue midline. bradykineisa inhad movements. no arm swing with walkng, significant en bloc turn. action and resting tremor at times ASSESSMENT: Mr. Olivia is a 76 year old man with tremors, mostly with activity. Difficult to evaluate this over teleneurology, but enough bradykinesia and symptoms to suggest PD. This can be confirmed in the office, but trial of carbidopa-levodopa is indicated based on current exam. Side effects discussed. PLAN: Already doing PT Carbidopa-levodopa 25-100 mg 1/2 tab po TID for a week then 1 tab TID. 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 is a 76 year old male who presents today for above. Patient noticed about 4-5 months ago tremors in both hands. Occurring with writing and holding eating utensils. Resolves with his hands supported such as resting on his lap. He occasionally notices legs shaking upon standing from a sitting position or prolonged standing. Tremors are not aggravated or alleviated by caffeine, alcohol, fatigue or stress Associated symptoms: loss of dexterity, slow gait and stumbling, slow responses to questions Denies changes in voice, sleep or cognitive issues, confusion, disorientation His mother had Parkinson's disease REVIEW OF SYSTEMS Neurologic: no headaches, no seizures, no dizziness, no numbness or tingling of hands, no numbness or tingling of feet, no muscle weakness, no involuntary movements See HPI PAST MEDICAL HISTORY Diagnosis Date Acquired polycythemia 01/24/2013 Actinic Keratosis (Premalignant AK) 09/05/2010 Adenomatous colon polyp 10/09/2014 Anxiety 06/19/2009 BPH loc w/o Ur Obs/LUTS 06/19/2009 Chronic bronchitis (HCC) 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 Clostridium difficile diarrhea 08/21/2021 Enterocolitis due to Clostridium difficile 05/25/2015 Gross hematuria 01/30/2018 Hemarthrosis following procedure 07/23/2021 Right knee s/p TKR Hypertension 05/04/2009 Hyperthyroidism, subclinical 06/19/2009 OA (osteoarthritis) of knee 01/24/2013 Obesity 06/19/2009 Other chest pain Sandrita Mortensen MD. Cath [facility] 08/20/2020. Other pulmonary embolism with acute cor pulmonale (HCC) 01/30/2018 fall, right hip fracture, right total hip Other pulmonary embolism with acute cor pulmonale (HCC) Panic attacks 2000 previously on Xanax Pulmonary hypertension (HCC) 01/30/2018 Seborrheic keratosis 06/19/2009 PAST SURGICAL HISTORY Procedure Laterality Date COLONOSCOPY & POLYPECTOMY 01/13/2017 COLONOSCOPY FLX DX W/COLLJ SPEC WHEN PFRMD 10/01/2014 Colonoscopy F COLONOSCOPY WITH BIOPSY 10/12/2018 biopsy negative, repeat 5 years LAP STOMA CLOSURE, ILEOSTOMY 04/13/2015 closure of loop ileostomy LEFT HEART CATH,PERCUTANEOUS 08/20/2020 PAST SURGICAL HISTORY OF 03/1973 Right 4th digit reattachment PAST SURGICAL HISTORY OF 01/01/2015 Rectal/sigmoid resection RHINP PRIM LAT&ALAR CRTLGS&/ELVTN NASAL TI 1954 Rhinoplasty, nasal fracture TONSILLECTOMY PRIMARY/SECONDARY <AGE 12 1956 Tonsillectomy TOTAL HIP JOINT REPLACEMENT Right 01/12/2018 TOTAL KNEE REPLACEMENT Right 07/21/2021 TRANSURETHRAL ELEC-SURG PROSTATECTOM 05/14/2021 ALLERGIES Patient has no known allergies. MEDICATIONS atorvastatin (LIPITOR) 20 mg tablet Take 1 tablet by mouth daily at bedtime. For cholesterol. PARoxetine (PAXIL) 20 mg tablet Take 1 tablet by mouth once daily. LORazepam (ATIVAN) 1 mg tablet Take 1 tablet by mouth at bedtime as needed for anxiety for up to 180 days. Cholecalciferol, Vitamin D3, (VITAMIN D) 25 mcg (1,000 unit) cap Take 1,000 Units by mouth once daily. metoprolol tartrate, short acting, (LOPRESSOR) 25 mg tablet Take 1 tablet by mouth twice daily. isosorbide mononitrate ER (IMDUR) 30 mg 24 hr tablet Take 1 tablet by mouth once daily. potassium chloride SR (MICRO-K) 10 mEq CR capsule Take 1 capsule by mouth twice daily. dicyclomine (BENTYL) 10 mg capsule Take 1 capsule by mouth daily at bedtime. For bowel movement. FAMILY HISTORY Problem Relation Age of Onset Psychiatry Mother Anxiety COPD Mother Heart Mother Heart failure, age 94 other (Other) Mother Parkinson's Cancer Father lung cancer, age 86 Psychiatry Sister Panic attacks Emphysema Maternal Grandfather 50 years working on [employer], coal smoke inhalation. Asthma Maternal Grandfather Colon Cancer Other Maternal 1st cousin age 40s Social History Tobacco Use Smoking status: Former Smoker Packs/day: 2.00 Years: 35.00 Pack years: 70.00 Types: Cigarettes Start date: 1964 Quit date: 07/05/1998 Years since quittin.2 Smokeless tobacco: Never Used Vaping Use Vaping Use: Never used Substance Use Topics Alcohol use: No Drug use: No PHYSICAL EXAM BP 126/74 Pulse 72 Resp 16 Wt 85.3 kg (188 lb) SpO2 95% BMI 27.17 kg/m General Appearance: well appearing, in no acute distress, alert Pysch: mood and affect broad and appropriate Eyes: PERRLA, EOM's intact, conjunctiva pink and moist, no icterus, sclera white, non-injected Neurological: Gait slow, no shuffling or stumbling but only ambulated about 15 feet. Intention tremors of both hands. speech normal, mental status intact, cranial nerves 2-12 intact, muscle strength normal, rapid alternating movements normal, finger to nose normal, reflexes normal and symmetric DATA REVIEWED: Most recent labs ASSESSMENT/PLAN: 1. Tremor of both hands - ICD9: 781.0, ICD10: R25.1 (primary diagnosis) Possibly essential tremors. Gradual worsening since onset. Family history of Parkinsons. - CONSULT TO NEUROLOGY 2. Abnormal gait - ICD9: 781.2, ICD10: R26.9 Slow but otherwise normal. Patient has had bilateral knee and left hip replacements which could be affecting gait. Plan as above. - CONSULT TO NEUROLOGY 3. Family history of Parkinson disease - ICD9: V17.2, ICD10: Z82.0 As above - CONSULT TO NEUROLOGY 4. Hyperthyroidism, subclinical - ICD9: 242.90, ICD10: E05.90 Referred to endocrinology, has not scheduled appointment yet. Prefers to stay local, will fax to [facility]. Prescription instructions reviewed with patient as applicable. Potential red flag symptoms discussed with the patient. Reviewed appropriate action plan to take if red flag symptoms occur. Patient agreeable to treatment plan. Delicia Quiñonez APRN.CNP documented in this encounterK[facility]04-11-2022 Miscellaneous Notes* Telephone Encounter - Sherly Gong LPN - 09/13/2021 5:09 PM EDT Phoned patient and updated him with results, recommendations and new order. Patient voiced understanding and stated he would get the US scheduled. * Telephone Encounter - Ashwin Apodaca MD - 09/13/2021 5:[address] scan does not show any specific finding that would cause pain in RLQ. Suspect muscle strain. Recommend OTC analgesics for pain and diet as discussed. Noted incidental left renal mass. Recommend further follow up with US. Gallstones noted without inflammation of gallbladder. documented in this encounterKettering [facility]04-11-2022 History of Present illness Narrative* RT Ollie(R) - 09/13/2021 2:40 PM EDT Radiology Service Progress Note DATE OF SERVICE: September 13, 2021 TIME: 3:27 PM PATIENT IDENTITY VERIFICATION COMPLETED USING TWO (2) STANDARD IDENTIFIERS: Name and Date of confirmed by patient verbally. FALL SCREENING: Has the patient had 2 falls in the last year or 1 fall with injury or currently using an Ambulatory Assistive Device (Walker, Cane, Wheelchair, Crutches, etc.)? No PATIENT GENDER DATA: Male PATIENT RELEVANT IMPLANT DATA REVIEWED: Yes ALLERGIES: Reviewed and unchanged CONTRAST ALLERGY: NO. EXAM: CT -CONTRAST INDUCED NEPHROPATHY RISK FACTORS: Patient age > 60 years CREATININE: Creatinine Date Value Ref Range Status 09/13/2021 0.93 0.73 - 1.22 mg/dL Final 08/16/2021 0.99 0.73 - 1.22 mg/dL Final 05/17/2021 1.20 0.73 - 1.22 mg/dL Final Estimated Glomerular Filtration Rate Date Value Ref Range Status 09/13/2021 85 >=60 mL/min/1.73m Final Comment: Estimated Glomerular Filtration Rate (eGFR) is calculated using the 2020 CKD-EPI creatinine equation. This equation utilizes serum creatinine, sex, and age as parameters. The creatinine assay has traceable calibration to isotope dilution- mass spectrometry. Refer to KDIGO guidelines for clinical interpretation. In patients with unstable renal function, e.g. those with acute kidney injury, the eGFRmay not accurately reflect actual GFR. eGFR- Date Value Ref Range Status 05/17/2021 >60 Final P.O.C.T. RESULTS: POC done: Yes, See Lab Tab September 13, 2021 TREATMENT: N/A PERIPHERAL IV DATA: Ambulatory: A peripheral IV was started in the Left antecubital site with a Angio cath: 22 gauge. RADIOLOGY DEPARTMENT: CT; Exam(s) Completed: Abdomen/Pelvis SIGNATURE: RT Mk(Mariah) PATIENT NAME: Rohan Olivia Jr. DATE: September 13, 2021 TIME: 3:27 PM documented in this encounterKettering [facility]04-11-2022 History of Present illness Narrative* Ashwin Apodaca MD - 09/13/2021 11:28 AM EDT Chief Complaint Patient presents with: Pain: right lower side pain/waist area (today slight pain across ABD) HPI Rohan Olivia Jr. is a 76 year old male with PMH: rectal/sigmoid resection and closure of loop ileostomy who presents here today for Above Complaints. Patient with recent diagnosis of C diff on 08/21 through ER and dsicharged home on oral vancomycin x10 days. Symptoms improved with rx, but vancomycin was reordered by Dr. Cantor on 09/01 for 14 days for complaint of soft stools. Today, patient states he is no longer getting watery diarrhea, hematochezia or mucous in his stools. Complaining now of 1 week history of abdominal pain in his RLQ and side. Described as intermittent dull pain which can become sharp when turning or rolling out of bed. Currently 0/10. This morning radiated across lower abdomen. Treating with tylenol PRN which takes the edge off of his pain. Admits to mild intermittent constipation with last BM this morning. Denies fever, chills, nausea, vomiting,urinary symptoms, abdominal injury/fall. Worse than 1 week ago. Past medical history, appointments, medications, allergies reviewed. Previous Medical History PAST MEDICAL HISTORY Diagnosis Date Acquired polycythemia 01/24/2013 Actinic Keratosis (Premalignant AK) 09/05/2010 Adenomatous colon polyp 10/09/2014 Anxiety 06/19/2009 BPH loc w/o Ur Obs/LUTS 06/19/2009 Chronic bronchitis (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 Clostridium difficile diarrhea 08/21/2021 Enterocolitis due to Clostridium difficile 05/25/2015 Gross hematuria 01/30/2018 Hemarthrosis following procedure 07/23/2021 Right knee s/p TKR Hypertension 05/04/2009 Hyperthyroidism, subclinical 06/19/2009 OA (osteoarthritis) of knee 01/24/2013 Obesity 06/19/2009 Other chest pain Sandrita Mortensen MD. Cath [facility] 08/20/2020. Other pulmonary embolism with acute cor pulmonale (HCC) 01/30/2018 fall, right hip fracture, right total hip Other pulmonary embolism with acute cor pulmonale (HCC) Panic attacks 2000 previously on Xanax Pulmonary hypertension (HCC) 01/30/2018 Seborrheic keratosis 06/19/2009 Previous Surgical History PAST SURGICAL HISTORY Procedure Laterality Date COLONOSCOPY & POLYPECTOMY 01/13/2017 COLONOSCOPY FLX DX W/COLLJ SPEC WHEN PFRMD 10/01/2014 Colonoscopy F COLONOSCOPY WITH BIOPSY 10/12/2018 biopsy negative, repeat 5 years LAP STOMA CLOSURE, ILEOSTOMY 04/13/2015 closure of loop ileostomy LEFT HEART CATH,PERCUTANEOUS 08/20/2020 PAST SURGICAL HISTORY OF 03/1973 Right 4th digit reattachment PAST SURGICAL HISTORY OF 01/01/2015 Rectal/sigmoid resection RHINP PRIM LAT&ALAR CRTLGS&/ELVTN NASAL TI 1954 Rhinoplasty, nasal fracture TONSILLECTOMY PRIMARY/SECONDARY <AGE 12 1956 Tonsillectomy TOTAL HIP JOINT REPLACEMENT Right 01/12/2018 TOTAL KNEE REPLACEMENT Right 07/21/2021 TRANSURETHRAL ELEC-SURG PROSTATECTOM 05/14/2021 Family History FAMILY HISTORY Problem Relation Age of Onset Psychiatry Mother Anxiety COPD Mother Heart Mother Heart failure, age 94 other (Other) Mother Parkinson's Cancer Father lung cancer, age 86 Psychiatry Sister Panic attacks Emphysema Maternal Grandfather 50 years working on [employer], coal smoke inhalation. Asthma Maternal Grandfather Colon Cancer Other Maternal 1st cousin age 40s Patient Allergies ALLERGIES No Known Allergies Current Medications Current Outpatient Medications on File Prior to Visit Medication Sig vancomycin (VANCOCIN) 125 mg capsule Take 1 capsule by mouth twice daily for 7 days, THEN 1 capsuleonce daily for 7 days. atorvastatin (LIPITOR) 20 mg tablet Take 1 tablet by mouth daily at bedtime. For cholesterol. PARoxetine (PAXIL) 20 mg tablet Take 1 tablet by mouth once daily. LORazepam (ATIVAN) 1 mg tablet Take 1 tablet by mouth at bedtime as needed for anxiety for up to 180 days. Cholecalciferol, Vitamin D3, (VITAMIN D) 25 mcg (1,000 unit) cap Take 1,000 Units by mouth once daily. metoprolol tartrate, short acting, (LOPRESSOR) 25 mg tablet Take 1 tablet by mouth twice daily. isosorbide mononitrate ER (IMDUR) 30 mg 24 hr tablet Take 1 tablet by mouth once daily. potassium chloride SR (MICRO-K) 10 mEq CR capsule Take 1 capsule by mouth twice daily. dicyclomine (BENTYL) 10 mg capsule Take 1 capsule by mouth daily at bedtime. For bowel movement. No current facility-administered medications on file prior to visit. Social History Social History Tobacco Use Smoking status: Former Smoker Packs/day: 2.00 Years: 35.00 Pack years: 70.00 Types: Cigarettes Start date: 1964 Quit date: 07/05/1998 Years since quittin.2 Smokeless tobacco: Never Used Vaping Use Vaping Use: Never used Substance Use Topics Alcohol use: No Drug use: No Review of Symptoms REVIEW OF SYSTEMS See HPI EXAM: BP 100/50 Pulse 67 Temp 36.6 C (97.9 F) Resp 16 Wt 86.3 kg (190 lb 3.2 oz) SpO2 99% BMI27.49 kg/m General Appearance: Well appearing, alert, in no acute distress, well-hydrated, well nourished.. Skin: Skin color, texture, turgor normal, no suspicious rashes or lesions. Lungs: Lungs clear to auscultation. No wheezing, rhonchi, rales.. Heart: RRR without murmur, gallop, or rubs. No ectopy. Abdomen: Abdomen soft. Bowel sounds normal. No masses, organomegaly, Positive findings: tenderness mild RLQ and suprapubic without guarding or rebound. NO CVA tenderness. Health Maintenance List ADVANCE DIRECTIVE DISCUSSION Never done DEPRESSION SCREENING due on 09/14/2021 LDL CHOLESTEROL due on 02/09/2022 ANNUAL PCP TEAM CHRONIC DISEASE VISIT due on 08/16/2022 BP CONTROLLED (<130/80) due on 08/16/2022 DIABETES SCREEN due on 08/16/2024 DTAP,TDAP,TD(2 - Td or Tdap) due on 03/15/2028 INFLUENZA Completed HEPATITIS C SCREENING Completed PNEUMOVAX AGE 65 AND OVER WITH 5YR LOOKBACK Completed SHINGRIX VACCINE Completed COVID-19 VACCINE Completed MENINGOCOCCAL CONJUGATE Aged Out ASSESSMENT/PLAN: 1. Right lower quadrant abdominal pain - ICD9: 789.03, ICD10: R10.31 Etiology unclear Differential Diagnosis includes Constipation, Diverticulitis and Appendicitis Obtain STAT labs and imaging below. Continue vancomycin for c diff. Red flags for re-assessment reviewed with patient in detail. - CBC + DIFF - COMP METABOLIC PANEL - CT ABD/PEL W IVCON - INSERT IV ([place]) Ashwin Apodaca MD documented in this encounterK[facility]04-01-2022 Miscellaneous Notes* Telephone Encounter - Analia Roque LPN - 09/03/2021 1:52 PM EDT Patient notified and voiced his understanding. * Telephone Encounter - Brandon Cantor MD - 09/03/2021 1:10 PM EDT Please inform the patient this was discontinued. * Telephone Encounter - Marquis Raymond Ma - 09/03/2021 12:56 PM EDT This is noted as discontinued by PCP as of 08/16/2021 * Telephone Encounter - Lili Burris - 09/03/2021 11:39 AM EDT Rohan Olivia Jr. is calling Brandon Cantor MD today requesting a refill of medication under his chart chlorthalidone (HYGROTON) 25 mg tablet Please send to [facility] documented in this encounterKet[facility]04-01-2022 Miscellaneous Notes* Telephone Encounter - Eugenia Douglas LPN - 09/03/2021 11:29 AM EDT rec'd covermymeds for vancomycin 125mg. Requested PA electronically. And response is this is covered no PA is needed. Called the pharmacy and pt has picked this up. Paying 50$. documented in this encounterKet[facility]03-31-2022 Miscellaneous Notes* Telephone Encounter - Renea Caraballo LPN - 09/02/2021 10:58 AM EDT Patient notified. Renea Rashmi VICTOR * Telephone Encounter - Brandon Cantor MD - 09/02/2021 9:36 AM EDT ASSESSMENT/PLAN: 1. Clostridium difficile diarrhea - ICD9: 008.45, ICD10: A04.72 Patient's request for medication is as follows Signed Prescriptions Disp Refills vancomycin (VANCOCIN) 125 mg capsule 21 capsule 0 Sig: Take 1 capsule by mouth twice daily for 7 days, THEN 1 capsule once daily for 7 days. Authorizing Provider: BRANDON CANTOR Order entered - please phone pharmacy and notify patient. Brandon Cantor MD * Telephone Encounter - Nadiya Fuentes RN - 09/01/2021 12:39 PM EDT Patient reports he went to ER on 08-21 per nurse triage advice with c/o diarrhea. Reports ER found he was C-Diff +, gave him IV fluids, and send home on vancomycin for 10 days. Today is the last day. Reports the diarrhea stopped the 1st day or 2 of starting the vancomycin, and he is now having soft stools 3-4 times/day. No other symptoms. Asking if pcp wants to check him for C-Diff again to make sure it has cleared? Please phone patient with reply. documented in this encounterKettering [facility]02-05-2022 History of Past illness Narrative* Problem Noted Date Resolved Date Tremors of nervous system 07/10/20212021 Other chest pain 08/10/2020 09/14/2020 Other pulmonary embolism with acute cor pulmonal e 01/30/2018 09/13/2018 Pulmonary hypertension 01/30/2018 9 Gross hematuria 01/30/2018 09/13/2018 Dyspnea on exertion 10/19/2017 09/13/2018 Flatulence 04/21/2016 03/16/2017 Enterocolitis due to Clostridium difficile 05/2510/22/2015 Ileus, postoperative 01/09/2015 07/22/2015 Seborrheic Keratoses 09/05/2010 07/26/2012 Actinic Damage///Sun-damaged skin 09/05/2010 07/26/2012 Solar lentigines 09/05/2010 07/26/2012 Stucco keratosis 09/05/2010 10/22/2015 Subclinical hyperthyroidism 08/26/200906/05 Obesity 06/19/2009 11/17/2021 documented as of this encounter (statuses as of 11/18/2021) [facility] History of Past illness Narrative* Problem Noted Date Resolved Date Tremors of nervous system 07/10/20212021 Other chest pain 08/10/2020 09/14/2020 Other pulmonary embolism with acute cor pulmonal e 01/30/2018 09/13/2018 Pulmonary hypertension 01/30/2018 9 Gross hematuria 01/30/2018 09/13/2018 Dyspnea on exertion 10/19/2017 09/13/2018 Flatulence 04/21/2016 03/16/2017 Enterocolitis due to Clostridium difficile 05/2510/22/2015 Ileus, postoperative 01/09/2015 07/22/2015 Seborrheic Keratoses 09/05/2010 07/26/2012 Actinic Damage///Sun-damaged skin 09/05/2010 07/26/2012 Solar lentigines 09/05/2010 07/26/2012 Stucco keratosis 09/05/2010 10/22/2015 Subclinical hyperthyroidism 08/26/200906/05 Obesity 06/19/2009 11/17/2021 documented as of this encounter (statuses as of 11/25/2021) [facility] of Past illness Narrative* Problem Noted Date Resolved Date Tremors of nervous system 07/10/20212021 Other chest pain 08/10/2020 09/14/2020 Other pulmonary embolism with acute cor pulmonal e 01/30/2018 09/13/2018 Pulmonary hypertension 01/30/2018 9 Gross hematuria 01/30/2018 09/13/2018 Dyspnea on exertion 10/19/2017 09/13/2018 Flatulence 04/21/2016 03/16/2017 Enterocolitis due to Clostridium difficile 05/2510/22/2015 Ileus, postoperative 01/09/2015 07/22/2015 Seborrheic Keratoses 09/05/2010 07/26/2012 Actinic Damage///Sun-damaged skin 09/05/2010 07/26/2012 Solar lentigines 09/05/2010 07/26/2012 Stucco keratosis 09/05/2010 10/22/2015 Subclinical hyperthyroidism 08/26/200906/05 Obesity 06/19/2009 11/17/2021 documented as of this encounter (statuses as of 12/01/2021) [facility] of Past illness Narrative* Problem Noted Date Resolved Date Tremors of nervous system 07/10/20212021 Other chest pain 08/10/2020 09/14/2020 Other pulmonary embolism with acute cor pulmonal e 01/30/2018 09/13/2018 Pulmonary hypertension 01/30/2018 9 Gross hematuria 01/30/2018 09/13/2018 Dyspnea on exertion 10/19/2017 09/13/2018 Flatulence 04/21/2016 03/16/2017 Enterocolitis due to Clostridium difficile 05/2510/22/2015 Ileus, postoperative 01/09/2015 07/22/2015 Seborrheic Keratoses 09/05/2010 07/26/2012 Actinic Damage///Sun-damaged skin 09/05/2010 07/26/2012 Solar lentigines 09/05/2010 07/26/2012 Stucco keratosis 09/05/2010 10/22/2015 Subclinical hyperthyroidism 08/26/200906/05 Obesity 06/19/2009 11/17/2021 documented as of this encounter (statuses as of 12/03/2021) [facility] of Past illness Narrative* Problem Noted Date Resolved Date Tremors of nervous system 07/10/20212021 Other chest pain 08/10/2020 09/14/2020 Other pulmonary embolism with acute cor pulmonal e 01/30/2018 09/13/2018 Pulmonary hypertension 01/30/2018 9 Gross hematuria 01/30/2018 09/13/2018 Dyspnea on exertion 10/19/2017 09/13/2018 Flatulence 04/21/2016 03/16/2017 Enterocolitis due to Clostridium difficile 05/2510/22/2015 Ileus, postoperative 01/09/2015 07/22/2015 Seborrheic Keratoses 09/05/2010 07/26/2012 Actinic Damage///Sun-damaged skin 09/05/2010 07/26/2012 Solar lentigines 09/05/2010 07/26/2012 Stucco keratosis 09/05/2010 10/22/2015 Subclinical hyperthyroidism 08/26/200906/05 Obesity 06/19/2009 11/17/2021 documented as of this encounter (statuses as of 12/28/2021) [facility]-05-2022 History of Past illness Narrative* Problem Noted Date Resolved Date Tremors of nervous system 07/10/20212021 Other chest pain 08/10/2020 09/14/2020 Other pulmonary embolism with acute cor pulmonal e 01/30/2018 09/13/2018 Pulmonary hypertension 01/30/2018 9 Gross hematuria 01/30/2018 09/13/2018 Dyspnea on exertion 10/19/2017 09/13/2018 Flatulence 04/21/2016 03/16/2017 Enterocolitis due to Clostridium difficile 05/2510/22/2015 Ileus, postoperative 01/09/2015 07/22/2015 Seborrheic Keratoses 09/05/2010 07/26/2012 Actinic Damage///Sun-damaged skin 09/05/2010 07/26/2012 Solar lentigines 09/05/2010 07/26/2012 Stucco keratosis 09/05/2010 10/22/2015 Subclinical hyperthyroidism 08/26/200906/05 Obesity 06/19/2009 11/17/2021 documented as of this encounter (statuses as of 12/28/2021) [facility]22 History of Past illness Narrative* Problem Noted Date Resolved Date Tremors of nervous system 07/10/20212021 Other chest pain 08/10/2020 09/14/2020 Other pulmonary embolism with acute cor pulmonal e 01/30/2018 09/13/2018 Pulmonary hypertension 01/30/2018 9 Gross hematuria 01/30/2018 09/13/2018 Dyspnea on exertion 10/19/2017 09/13/2018 Flatulence 04/21/2016 03/16/2017 Enterocolitis due to Clostridium difficile 05/2510/22/2015 Ileus, postoperative 01/09/2015 07/22/2015 Seborrheic Keratoses 09/05/2010 07/26/2012 Actinic Damage///Sun-damaged skin 09/05/2010 07/26/2012 Solar lentigines 09/05/2010 07/26/2012 Stucco keratosis 09/05/2010 10/22/2015 Subclinical hyperthyroidism 08/26/200906/05 Obesity 06/19/2009 11/17/2021 documented as of this encounter (statuses as of 01/14/2022) [facility] History of Past illness Narrative* Problem Noted Date Resolved Date Tremors of nervous system 07/10/20212021 Other chest pain 08/10/2020 09/14/2020 Other pulmonary embolism with acute cor pulmonal e 01/30/2018 09/13/2018 Pulmonary hypertension 01/30/2018 9 Gross hematuria 01/30/2018 09/13/2018 Dyspnea on exertion 10/19/2017 09/13/2018 Flatulence 04/21/2016 03/16/2017 Enterocolitis due to Clostridium difficile 05/2510/22/2015 Ileus, postoperative 01/09/2015 07/22/2015 Seborrheic Keratoses 09/05/2010 07/26/2012 Actinic Damage///Sun-damaged skin 09/05/2010 07/26/2012 Solar lentigines 09/05/2010 07/26/2012 Stucco keratosis 09/05/2010 10/22/2015 Subclinical hyperthyroidism 08/26/200906/05 Obesity 06/19/2009 11/17/2021 documented as of this encounter (statuses as of 03/29/2022) [facility] History of Past illness Narrative* Problem Noted Date Resolved Date Tremors of nervous system 07/10/20212021 Other chest pain 08/10/2020 09/14/2020 Other pulmonary embolism with acute cor pulmonal e 01/30/2018 09/13/2018 Pulmonary hypertension 01/30/2018 9 Gross hematuria 01/30/2018 09/13/2018 Dyspnea on exertion 10/19/2017 09/13/2018 Flatulence 04/21/2016 03/16/2017 Enterocolitis due to Clostridium difficile 05/2510/22/2015 Ileus, postoperative 01/09/2015 07/22/2015 Seborrheic Keratoses 09/05/2010 07/26/2012 Actinic Damage///Sun-damaged skin 09/05/2010 07/26/2012 Solar lentigines 09/05/2010 07/26/2012 Stucco keratosis 09/05/2010 10/22/2015 Subclinical hyperthyroidism 08/26/200906/05 Obesity 06/19/2009 11/17/2021 documented as of this encounter (statuses as of 04/01/2022) [facility] History of Past illness Narrative* Problem Noted Date Resolved Date Tremors of nervous system 07/10/20212021 Other chest pain 08/10/2020 09/14/2020 Other pulmonary embolism with acute cor pulmonal e 01/30/2018 09/13/2018 Pulmonary hypertension 01/30/2018 9 Gross hematuria 01/30/2018 09/13/2018 Dyspnea on exertion 10/19/2017 09/13/2018 Flatulence 04/21/2016 03/16/2017 Enterocolitis due to Clostridium difficile 05/2510/22/2015 Ileus, postoperative 01/09/2015 07/22/2015 Seborrheic Keratoses 09/05/2010 07/26/2012 Actinic Damage///Sun-damaged skin 09/05/2010 07/26/2012 Solar lentigines 09/05/2010 07/26/2012 Stucco keratosis 09/05/2010 10/22/2015 Subclinical hyperthyroidism 08/26/200906/05 Obesity 06/19/2009 11/17/2021 documented as of this encounter (statuses as of 04/04/2022) [facility] History of Past illness Narrative* Problem Noted Date Resolved Date Tremors of nervous system 07/10/20212021 Other chest pain 08/10/2020 09/14/2020 Other pulmonary embolism with acute cor pulmonal e 01/30/2018 09/13/2018 Pulmonary hypertension 01/30/2018 9 Gross hematuria 01/30/2018 09/13/2018 Dyspnea on exertion 10/19/2017 09/13/2018 Flatulence 04/21/2016 03/16/2017 Enterocolitis due to Clostridium difficile 05/2510/22/2015 Ileus, postoperative 01/09/2015 07/22/2015 Seborrheic Keratoses 09/05/2010 07/26/2012 Actinic Damage///Sun-damaged skin 09/05/2010 07/26/2012 Solar lentigines 09/05/2010 07/26/2012 Stucco keratosis 09/05/2010 10/22/2015 Subclinical hyperthyroidism 08/26/200906/05 Obesity 06/19/2009 11/17/2021 documented as of this encounter (statuses as of 04/05/2022) [facility] History of Past illness Narrative* Problem Noted Date Resolved Date Tremors of nervous system 07/10/20212021 Other chest pain 08/10/2020 09/14/2020 Other pulmonary embolism with acute cor pulmonal e 01/30/2018 09/13/2018 Pulmonary hypertension 01/30/2018 9 Gross hematuria 01/30/2018 09/13/2018 Dyspnea on exertion 10/19/2017 09/13/2018 Flatulence 04/21/2016 03/16/2017 Enterocolitis due to Clostridium difficile 05/2510/22/2015 Ileus, postoperative 01/09/2015 07/22/2015 Seborrheic Keratoses 09/05/2010 07/26/2012 Actinic Damage///Sun-damaged skin 09/05/2010 07/26/2012 Solar lentigines 09/05/2010 07/26/2012 Stucco keratosis 09/05/2010 10/22/2015 Subclinical hyperthyroidism 08/26/200906/05 Obesity 06/19/2009 11/17/2021 documented as of this encounter (statuses as of 05/03/2022) [facility]2022 History of Past illness Narrative* Problem Noted Date Resolved Date Tremors of nervous system 07/10/20212021 Other chest pain 08/10/2020 09/14/2020 Other pulmonary embolism with acute cor pulmonal e 01/30/2018 09/13/2018 Pulmonary hypertension 01/30/2018 9 Gross hematuria 01/30/2018 09/13/2018 Dyspnea on exertion 10/19/2017 09/13/2018 Flatulence 04/21/2016 03/16/2017 Enterocolitis due to Clostridium difficile 05/2510/22/2015 Ileus, postoperative 01/09/2015 07/22/2015 Seborrheic Keratoses 09/05/2010 07/26/2012 Actinic Damage///Sun-damaged skin 09/05/2010 07/26/2012 Solar lentigines 09/05/2010 07/26/2012 Stucco keratosis 09/05/2010 10/22/2015 Subclinical hyperthyroidism 08/26/200906/05 Obesity 06/19/2009 11/17/2021 documented as of this encounter (statuses as of 06/14/2022) [facility]2022 History of Past illness Narrative* Problem Noted Date Resolved Date Tremors of nervous system 07/10/20212021 Other chest pain 08/10/2020 09/14/2020 Other pulmonary embolism with acute cor pulmonal e 01/30/2018 09/13/2018 Pulmonary hypertension 01/30/2018 9 Gross hematuria 01/30/2018 09/13/2018 Dyspnea on exertion 10/19/2017 09/13/2018 Flatulence 04/21/2016 03/16/2017 Enterocolitis due to Clostridium difficile 05/2510/22/2015 Ileus, postoperative 01/09/2015 07/22/2015 Seborrheic Keratoses 09/05/2010 07/26/2012 Actinic Damage///Sun-damaged skin 09/05/2010 07/26/2012 Solar lentigines 09/05/2010 07/26/2012 Stucco keratosis 09/05/2010 10/22/2015 Subclinical hyperthyroidism 08/26/200906/05 Obesity 06/19/2009 11/17/2021 documented as of this encounter (statuses as of 07/18/2022) [facility]21 History of Past illness Narrative* Problem Noted Date Resolved Date Other chest pain 08/10/2020 09/14/2020 Other pulmonary embolism with acute cor pulmonal e 01/30/2018 09/13/2018 Pulmonary hypertension 01/30/2018 9 Gross hematuria 01/30/2018 09/13/2018 Dyspnea on exertion 10/19/2017 09/13/2018 Flatulence 04/21/2016 03/16/2017 Enterocolitis due to Clostridium difficile 05/2510/22/2015 Ileus, postoperative 01/09/2015 07/22/2015 Seborrheic Keratoses 09/05/2010 07/26/2012 Actinic Damage///Sun-damaged skin 09/05/2010 07/26/2012 Solar lentigines 09/05/2010 07/26/2012 Stucco keratosis 09/05/2010 10/22/2015 Subclinical hyperthyroidism 08/26/200906/05 documented as of this encounter (statuses as of 09/02/2021) [facility]21 History of Past illness Narrative* Problem Noted Date Resolved Date Other chest pain 08/10/2020 09/14/2020 Other pulmonary embolism with acute cor pulmonal e 01/30/2018 09/13/2018 Pulmonary hypertension 01/30/2018 9 Gross hematuria 01/30/2018 09/13/2018 Dyspnea on exertion 10/19/2017 09/13/2018 Flatulence 04/21/2016 03/16/2017 Enterocolitis due to Clostridium difficile 05/2510/22/2015 Ileus, postoperative 01/09/2015 07/22/2015 Seborrheic Keratoses 09/05/2010 07/26/2012 Actinic Damage///Sun-damaged skin 09/05/2010 07/26/2012 Solar lentigines 09/05/2010 07/26/2012 Stucco keratosis 09/05/2010 10/22/2015 Subclinical hyperthyroidism 08/26/200906/05 documented as of this encounter (statuses as of 09/03/2021) [facility]21 History of Past illness Narrative* Problem Noted Date Resolved Date Other chest pain 08/10/2020 09/14/2020 Other pulmonary embolism with acute cor pulmonal e 01/30/2018 09/13/2018 Pulmonary hypertension 01/30/2018 9 Gross hematuria 01/30/2018 09/13/2018 Dyspnea on exertion 10/19/2017 09/13/2018 Flatulence 04/21/2016 03/16/2017 Enterocolitis due to Clostridium difficile 05/2510/22/2015 Ileus, postoperative 01/09/2015 07/22/2015 Seborrheic Keratoses 09/05/2010 07/26/2012 Actinic Damage///Sun-damaged skin 09/05/2010 07/26/2012 Solar lentigines 09/05/2010 07/26/2012 Stucco keratosis 09/05/2010 10/22/2015 Subclinical hyperthyroidism 08/26/200906/05 documented as of this encounter (statuses as of 09/13/2021) [facility] History of Past illness Narrative* Problem Noted Date Resolved Date Other chest pain 08/10/2020 09/14/2020 Other pulmonary embolism with acute cor pulmonal e 01/30/2018 09/13/2018 Pulmonary hypertension 01/30/2018 9 Gross hematuria 01/30/2018 09/13/2018 Dyspnea on exertion 10/19/2017 09/13/2018 Flatulence 04/21/2016 03/16/2017 Enterocolitis due to Clostridium difficile 05/2510/22/2015 Ileus, postoperative 01/09/2015 07/22/2015 Seborrheic Keratoses 09/05/2010 07/26/2012 Actinic Damage///Sun-damaged skin 09/05/2010 07/26/2012 Solar lentigines 09/05/2010 07/26/2012 Stucco keratosis 09/05/2010 10/22/2015 Subclinical hyperthyroidism 08/26/200906/05 documented as of this encounter (statuses as of 09/14/2021) [address]08-2021 History of Past illness Narrative* Problem Noted Date Resolved Date Other chest pain 08/10/2020 09/14/2020 Other pulmonary embolism with acute cor pulmonal e 01/30/2018 09/13/2018 Pulmonary hypertension 01/30/2018 9 Gross hematuria 01/30/2018 09/13/2018 Dyspnea on exertion 10/19/2017 09/13/2018 Flatulence 04/21/2016 03/16/2017 Enterocolitis due to Clostridium difficile 05/2510/22/2015 Ileus, postoperative 01/09/2015 07/22/2015 Seborrheic Keratoses 09/05/2010 07/26/2012 Actinic Damage///Sun-damaged skin 09/05/2010 07/26/2012 Solar lentigines 09/05/2010 07/26/2012 Stucco keratosis 09/05/2010 10/22/2015 Subclinical hyperthyroidism 08/26/200906/05 documented as of this encounter (statuses as of 09/14/2021) [facility] History of Past illness Narrative* Problem Noted Date Resolved Date Other chest pain 08/10/2020 09/14/2020 Other pulmonary embolism with acute cor pulmonal e 01/30/2018 09/13/2018 Pulmonary hypertension 01/30/2018 9 Gross hematuria 01/30/2018 09/13/2018 Dyspnea on exertion 10/19/2017 09/13/2018 Flatulence 04/21/2016 03/16/2017 Enterocolitis due to Clostridium difficile 05/2510/22/2015 Ileus, postoperative 01/09/2015 07/22/2015 Seborrheic Keratoses 09/05/2010 07/26/2012 Actinic Damage///Sun-damaged skin 09/05/2010 07/26/2012 Solar lentigines 09/05/2010 07/26/2012 Stucco keratosis 09/05/2010 10/22/2015 Subclinical hyperthyroidism 08/26/200906/05 documented as of this encounter (statuses as of 09/14/2021) [facility] History of Past illness Narrative* Problem Noted Date Resolved Date Other chest pain 08/10/2020 09/14/2020 Other pulmonary embolism with acute cor pulmonal e 01/30/2018 09/13/2018 Pulmonary hypertension 01/30/2018 9 Gross hematuria 01/30/2018 09/13/2018 Dyspnea on exertion 10/19/2017 09/13/2018 Flatulence 04/21/2016 03/16/2017 Enterocolitis due to Clostridium difficile 05/2510/22/2015 Ileus, postoperative 01/09/2015 07/22/2015 Seborrheic Keratoses 09/05/2010 07/26/2012 Actinic Damage///Sun-damaged skin 09/05/2010 07/26/2012 Solar lentigines 09/05/2010 07/26/2012 Stucco keratosis 09/05/2010 10/22/2015 Subclinical hyperthyroidism 08/26/200906/05 documented as of this encounter (statuses as of 09/28/2021) [facility] History of Past illness Narrative* Problem Noted Date Resolved Date Other chest pain 08/10/2020 09/14/2020 Other pulmonary embolism with acute cor pulmonal e 01/30/2018 09/13/2018 Pulmonary hypertension 01/30/2018 9 Gross hematuria 01/30/2018 09/13/2018 Dyspnea on exertion 10/19/2017 09/13/2018 Flatulence 04/21/2016 03/16/2017 Enterocolitis due to Clostridium difficile 05/2510/22/2015 Ileus, postoperative 01/09/2015 07/22/2015 Seborrheic Keratoses 09/05/2010 07/26/2012 Actinic Damage///Sun-damaged skin 09/05/2010 07/26/2012 Solar lentigines 09/05/2010 07/26/2012 Stucco keratosis 09/05/2010 10/22/2015 Subclinical hyperthyroidism 08/26/200906/05 documented as of this encounter (statuses as of 10/11/2021) [facility] History of Past illness Narrative* Problem Noted Date Resolved Date Other chest pain 08/10/2020 09/14/2020 Other pulmonary embolism with acute cor pulmonal e 01/30/2018 09/13/2018 Pulmonary hypertension 01/30/2018 9 Gross hematuria 01/30/2018 09/13/2018 Dyspnea on exertion 10/19/2017 09/13/2018 Flatulence 04/21/2016 03/16/2017 Enterocolitis due to Clostridium difficile 05/2510/22/2015 Ileus, postoperative 01/09/2015 07/22/2015 Seborrheic Keratoses 09/05/2010 07/26/2012 Actinic Damage///Sun-damaged skin 09/05/2010 07/26/2012 Solar lentigines 09/05/2010 07/26/2012 Stucco keratosis 09/05/2010 10/22/2015 Subclinical hyperthyroidism 08/26/200906/05 documented as of this encounter (statuses as of 10/19/2021) [facility] August 18, 2023 9:13am Note Date/Time August 18, 2023 9:1 3am [facility] Medical Records Department [address] [place] [address] Emergency Department Summary 08/18/23 MR#: [id number] Acct: [id number] Name: ROHAN OLIVIA Rep #:[id number] : 1945 78 From: Wisam Bella DO PCP: Dr. Brandon Cantor MD Status:R EG ER Location: ED HPI History of Present Illness Chief Complaint: Chest Pain Informant: patient and spouse/S.O. Narrative Narrative: Patient is a 78-year-old male with past medical history of hypertension and Parkinson's disease as well as renal cancer requiring left nephrectomy roughly 1year ago. He states he ate a BLT for dinner and then was lying down to go to sleep around 11 PM when he developed sharp pain in his right upper abdomen radiating towards the middle portion of his chest and abdomen as well. He states he became nauseous with this but denies any vomiting. He states that he thought he may have acid reflux so he took some [id number] medication without symptom improvement and secondary to the persistent pain comes in for evaluation [facility] Medical History Abnormal weight loss Acute respiratory failure with hypoxia Ambulates with cane Anxiety Arthritis Back pain BPH (benign prostatic hyperplasia) Cancer Cardiology follow-up encounter Change in bowel habit Chronic cough Chronic diarrhea Chronic respiratory failure with hypoxia Closed right hip fracture Depression Diarrhea Difficulty swallowing Excessive bleeding Expressive aphasia Fall Former smoker Heartburn History of Clostridium difficile infection History of echocardiogram History of pain when walking Hypercholesterolemia Hyperlipidemia Hypertension Hyperthyroidism Hypothyroidism IBS (irritable bowel syndrome) Leg cramps Melanoma in situ of unspecified part of face Osteoarthritis Osteoporosis Parkinsons disease Polycythemia Prostate disease Pulmonary embolism Shortness of breath on exertion Skin cancer Syncope Thyrotoxicosis Wears dentures Wears glasses Home Medications metoprolol tartrate 25 mg tablet 25 mg PO DAILY heart 04/15/21 [History Last Taken 04/18/23 09:00] potassium chloride 10 mEq capsule,extended release 10 meq PO BID supplement 04/15/21 [History Last Taken 04/29/22] cholecalciferol (vitamin D3) 25 mcg (1,000 unit) tablet (Vitamin D3) 25 mcg PO DAILY health maintenance 07/07/21 [History Last Taken 04/29/22] carbidopa 25 mg-levodopa 100 mg tablet 1 tab PO TID PARKINSONS 10/18/21 [History Last Taken 04/19/23] isosorbide mononitrate 30 mg tablet,extended release 24 hr 30 mg PO DAILY [id number]/16/22 [History Last Taken 04/29/22] lorazepam 1 mg tablet (Ativan) 1 mg PO DAILY PRN Anxiety 12/01/21 [History Last Taken 02/15/22] paroxetine HCl 20 mg tablet 20 mg PO DAILY DEPRESSION 12/07/21 [History Last Taken 02/15/22] atorvastatin 20 mg tablet 20 mg PO QHS CHOLESTEROL 02/08/22 [History Last Taken 04/28/22] methimazole 5 mg tablet 5 mg PO DAILY THYROID #30 tabs 03/09/23 [Rx Last Taken Unknown] cholestyramine (with sugar) 4 gram oral powder 1 g PO HS #348.6 grams 06/14/23 [Rx Last Taken Unknown] pantoprazole 40 mg tablet,delayed release 40 mg PO DAILY 30 days #30 tabs 06/14/23 [Rx Last Taken Unknown] Allergy/AdvReac Type Severity Reaction Status Date / Time No Known Allergies Allergy Verified 08/18/23 02:37 Family History Father Lung cancer Mother Parkinsons Heart failure Surgical History (Updated 04/17/23 @ 11:49 by Sonam Monsivais) H/O colonoscopy History of cardiac catheterization History of colon surgery History of esophagogastroduodenoscopy (EGD) History of nephrectomy, left History of rhinoplasty History of tonsillectomy History of total knee replacement (TKR) History of total right hip replacement History of transurethral resection of prostate Hx of colonoscopy reattachment of severed finger stoma reversal Social History household members: spouse housing: house 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al status: employed 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: [employer] pets and animals: Yes pets and animals: cat(s) and dog(s) Smoking Status: Former smoker quit date: 06/05/98 pack-years: 72 second hand exposure: No alcohol intake: never substance use type: does not use seatbelt use: always ROS ROS ED Constitutional Constitutional ED: Denies chills or fever(s) Eyes Eyes: Denies change in vision ENT ENT ED: Denies sore throat Cardiovascular Cardiovascular: Reports chest pain; Denies palpitations or racing heartbeat Respiratory/Chest Respiratory/Chest: Denies cough or dyspnea Gastrointestinal Gastrointestinal: Reports abdominal pain and nausea; Denies diarrhea or vomiting Genitourinary Genitourinary ED: Denies dysuria or hematuria Musculoskeletal Musculoskeletal: Denies back pain or myalgias Integumentary Denies rash Neurologic Neurologic: Denies headache(s) Hematologic/Lymphatic Hematologic/Lymphatic: Denies easy bleeding or easy bruising EXAM Physical Exam Const Vital Signs: 08/18/23 02:38 08/18/23 02:58 08/18/23 03:33 Temperature 98.5 F Temperature Source Oral Pulse Rate 74 70 71 Respiratory Rate 18 23 H 16 Blood Pressure 199/84 H 192/77 H 168/78 H Blood Pressure Mean 122 115 108 Pulse Ox 95 88 Oxygen Delivery Method Room Air Nasal Cannula Oxygen Flow Rate (L/min) 2 08/18/23 04:03 08/18/23 04:46 08/18/23 05:04 Temperature Temperature Source Pulse Rate 68 70 69 Respiratory Rate 18 17 15 Blood Pressure 179/82 H 170/86 H 174/80 H Blood Pressure Mean 114 114 111 Pulse Ox 92 97 95 Oxygen Delivery Method Nasal Cannula Nasal Cannula Nasal Cannula Oxygen Flow Rate (L/min) 2 3 2 08/18/23 03:01 08/18/23 03:15 08/18/23 03:30 Temperature Temperature Source Pulse Rate 69 71 70 Respiratory Rate 16 22 H 17 Blood Pressure 189/86 H 168/78 H Blood Pressure Mean 108 104 Pulse Ox 89 88 90 Oxygen Delivery Method Oxygen Flow Rate (L/min) 08/18/23 03:45 08/18/23 04:00 08/18/23 04:30 Temperature Temperature Source Pulse Rate 68 Respiratory Rate 25 H Blood Pressure 172/84 H 179/82 H 192/84 H Blood Pressure Mean 106 111 115 Pulse Ox 95 Oxygen Delivery Method Oxygen Flow Rate (L/min) 08/18/23 04:33 08/18/23 04:45 08/18/23 05:00 Temperature Temperature Source Pulse Rate 72 69 69 Respiratory Rate 14 18 18 Blood Pressure 170/86 H 174/80 H Blood Pressure Mean 108 108 Pulse Ox 97 95 94 Oxygen Delivery Method Oxygen Flow Rate (L/min) 08/18/23 05:15 08/18/23 05:30 08/18/23 05:45 Temperature Temperature Source Pulse Rate 71 70 82 Respiratory Rate 18 16 20 H Blood Pressure 165/80 H 163/78 H 142/70 H Blood Pressure Mean 105 102 86 Pulse Ox 93 93 Oxygen Delivery Method Oxygen Flow Rate (L/min) 08/18/23 06:00 08/18/23 06:15 08/18/23 06:30 Temperature Temperature Source Pulse Rate 69 69 68 Respiratory Rate 18 18 15 Blood Pressure 166/80 H 152/72 H 151/72 H Blood Pressure Mean 102 93 94 Pulse Ox 92 92 92 Oxygen Delivery Method Oxygen Flow Rate (L/min) 08/18/23 06:45 08/18/23 07:15 08/18/23 07:20 Temperature Temperature Source Pulse Rate 68 75 Respiratory Rate 20 H 21 H Blood Pressure 159/76 H 147/77 H Blood Pressure Mean 98 95 Pulse Ox 92 90 Oxygen Delivery Method Oxygen Flow Rate (L/min) 08/18/23 08:00 08/18/23 07:30 08/18/23 07:45 Temperature Temperature Source Pulse Rate 72 71 71 Respiratory Rate 16 21 H 20 H Blood Pressure 149/57 H 153/70 H 156/79 H Blood Pressure Mean 87 89 98 Pulse Ox 97 92 93 Oxygen Delivery Method Nasal Cannula Oxygen Flow Rate (L/min) 2 08/18/23 08:00 08/18/23 08:15 Temperature Temperature Source Pulse Rate 73 83 Respiratory Rate 20 H 26 H Blood Pressure 149/57 H 175/82 H Blood Pressure Mean 80 107 Pulse Ox 93 89 Oxygen Delivery Method Oxygen Flow Rate (L/min) Positive well nourished and well developed General Appearance ED: well developed; Negative for pallor HEENT HEENT Narrative: Normocephalic atraumatic No signs of infection in the posterior pharynx No airway edema or compromise Eyes PERRL and EOMs intact bilaterally General Eye ED: Negative for scleral icterus Neck supple Neck Narrative: No nuchal rigidity or meningeal signs Chest Wall palpation of chest normal Resp normal respiratory effort and clear to auscultation bilaterally Cardio regular rate and regular rhythm Rate: other Other Details: Radial and carotid pulses equal and symmetric GI non-distended GI Narrative: Abdomen is soft and nondistended with normal active bowel sounds. Patient has pain on palpation in the right upper quadrant and midepigastric region but greatest pain in the right upper quadrant with positive Courtney sign. No pulsatile mass Auscultation: normoactive bowel sounds Palpation: soft Back/Spine no CVA tenderness Extremity normal to inspection Neuro oriented x3 and CN's II-XII intact bilaterally Sensorium / Orientation: alert Psych mental status grossly normal Skin no rashes or lesions noted General Skin Exam: Negative for jaundice or pallor MDM MDM MDM Narrative Medical decision making narrative: Patient presented to the ER with stable vitals and reported sudden onset of painwhich after further history and exam is more abdominal than it is cardiac. Withthe fact that the pain started after eating a BLT concern is for biliary colic versus acute cholecystitis versus pancreatitis. Secondary to his basic labs britton CT scan with IV contrast were ordered. Patient's labs revealed no clinically significant findings but CT scan did show gallstones with concern for acute cholecystitis. Secondary to this the case was discussed with general surgery on-call Dr. Parsons. She recommends an ultrasound for further clarification ofthe CT results. Ultrasound was performed and does confirm acute cholecystitis. Patient was given IV Zosyn secondary to this. Case was then rediscussed with general surgery who recommends admission to their service for cholecystectomy. Patient was informed of this and is agreeable with the plan of care. He will beadmitted to general surgery service while awaiting potential surgical fixation for his acute cholecystitis. History & Record Review Discussion w/independent historian: Patient and Significant other Lab Data Attestation: I reviewed the patient's lab results. Labs: Laboratory Results - last 24 hr 08/18/23 08/18/23 02:55 03:20 WBC 9.1 RBC 5.28 Hgb 16.0 Hct 48.4 MCV 91.7 MCH 30.3 MCHC 33.1 RDW Std Deviation 47.7 H RDW Coeff of Daisy 14.1 Plt Count 150 MPV 10.9 Immature Gran % (Auto) 0.400 Neut % (Auto) 80.6 H Lymph % (Auto) 9.4 L [place] % (Auto) 7.1 Eos % (Auto) 1.8 Baso % (Auto) 0.7 Absolute Neuts (auto) 7.4 Absolute Lymphs (auto) 0.86 Nucleated RBC % 0 Sodium 142 Potassium 3.9 Chloride 107 Carbon Dioxide 29.0 Anion Gap 6 BUN 19 H Creatinine 1.54 H Estim Creat Clear Calc 40.82 Est GFR (MDRD) Af Amer 56 L Est GFR (MDRD) Non-Af 47 L BUN/Creatinine Ratio 12.3 Glucose 111 H Lactic Acid 1.1 Calcium 9.5 Total Bilirubin 0.90 Direct Bilirubin 0.24 AST 14 L ALT < 6 L Alkaline Phosphatase 96 Total Protein 7.0 Albumin 3.8 Globulin 3.2 Lipase 64 Radiography Diagnostic Testing: Clinical Impression(s) from Imaging Studies Abdomen/Pelvis CT 08/18/23 03:12 IMPRESSION: Abnormal appearance of the gallbladder which is distended. Cholelithiasis. Inflammatory changes are present with associated intrahepatic biliary ductal dilatation. Findings suspicious for acute cholecystitis. Additional chronic changes as detailed above. Electronically Signed: Emmanuel Rivero MD at 5:16 EDT , Gallbladder Ultrasound 08/18/23 05:58 IMPRESSION: Fatty infiltration of the liver. Hepatic cysts. Multiple gallstones and sludge seen in the gallbladder lumen. Small amount of pericholecystic fluid. Gallbladder wall thickening. Right renal cyst. Electronically Signed: Cuong Reynolds MD at 8:21 EDT , Management Discussion w/another healthcare provider: Cellar Pumper Discharge Plan Triage Chief Complaint: Chest Pain ED Provider: Wisam Bella Dx/Rx/DC Orders Clinical Impression: Acute calculous cholecystitis, Hypertension, Parkinson's disease Prescriptions: No Action carbidopa-levodopa 25-100 mg tablet 1 tab PO TID lorazepam [Ativan] 1 mg tablet 1 mg PO DAILY PRN (Reason: Anxiety) methimazole 5 mg tablet 5 mg PO DAILY Qty: 30 6RF pantoprazole 40 mg tablet,delayed release (DR/EC) 40 mg PO DAILY 30 Days Qty: 30 11RF cholestyramine (with sugar) 4 gram powder 1 g PO HS Qty: 348.6 0RF Rx Instructions: administer w/meal; avoid other meds within 1hr before or 4-6hr after dose cholecalciferol (vitamin D3) [Vitamin D3] 25 mcg (1,000 unit) Tablet 25 mcg PO DAILY potassium chloride 10 mEq capsule, extended release 10 meq PO BID metoprolol tartrate 25 mg tablet 25 mg PO DAILY paroxetine HCl 20 mg tablet 20 mg PO DAILY MDD T isosorbide mononitrate 30 mg tablet extended release 24 hr 30 mg PO DAILY atorvastatin 20 mg tablet 20 mg PO QHS Primary Care Provider: Brandon Cantor Referrals: Brandon Cantor MD [Primary Care Provider] - Disposition Disposition: Acute Care Hospital [facility] What to do if you have Problems For any increased pain, shortness of breath, bleeding, nausea or vomiting, chestpain, or any unexpected problems, contact your Primary Care Provider. Call [facility] ([phone]) or report to the closest Emergency Room. Call 911 if necessary. 08/18/23912 <Electronically signed by Wisam Bella DO> Cosigner Signature (if applicable): CC: Dr. Brandon Cantor MD ~ Signed [facility] Work Phone: Evaluation note* Diagnosis Clostridium difficile diarrhea- Primary Intestinal infection due to clostridium difficile documented in this encounter [facility] note* Diagnosis Right lower quadrant abdominal pain Abdominal pain, right lower quadrant documented in this encounter [facility] note* Diagnosis Renal mass, left- Primary Unspecified disorder of kidney and ureter documented in this encounter [facility] note* Diagnosis Right lower quadrant abdominal pain Abdominal pain, right lower quadrant documented in this encounter [facility] note* Diagnosis Right lower quadrant abdominal pain Abdominal pain, right lower quadrant documented in this encounter [facility] note* Diagnosis Tremor of both hands- Primary Abnormal gait Abnormality of gait Family history of Parkinson disease Hyperthyroidism, subclinical Thyrotoxicosis without mention of goiter or other cause, without mention of thyrotoxic crisis or storm documented in this encounter [facility] note* Diagnosis Parkinson disease (HCC)- Primary Paralysis agitans Tremor of both hands Abnormal gait Abnormality of gait Family history of Parkinson disease documented in this encounter [facility] note* Diagnosis Onset Date Resolution Status Acute respiratory failure with hypoxia acute Status post total right knee replacement acute Hypertension chronic Status post total right knee replacement acute Blister of lower leg resolve d Fever resolved Knee effusion, right resolve d [facility] Work Phone: Evaluation note* Diagnosis Onset Date Resolution Status Acute respiratory failure with hypoxia acute Status post total right knee replacement acute Hypertension chronic Status post total right knee replacement acute Blister of lower leg resolve d Fever resolved Knee effusion, right resolve d Brain TIA acute Expressive aphasia acute Hyperthyroidism acute Hyperlipidemia chronic [facility] Work Phone: Evaluation note* Diagnosis Onset Date Resolution Status Acute respiratory failure with hypoxia acute Status post total right knee replacement acute Hypertension chronic Status post total right knee replacement acute Blister of lower leg resolve d Fever resolved Knee effusion, right resolve d Expressive aphasia acute Hyperthyroidism acute Brain TIA acute Expressive aphasia acute Hyperthyroidism acute Hyperlipidemia [facility] Work Phone: Evaluation note* Diagnosis Onset Date Resolution Status Acute respiratory failure with hypoxia acute Status post total right knee replacement acute Hypertension chronic Status post total right knee replacement acute Blister of lower leg resolve d Fever resolved Knee effusion, right resolve d Brain TIA resolved [facility] Work Phone: Evaluation note* Diagnosis Chronic diarrhea- Primary Diarrhea Abnormal weight loss Loss of weight Anxiety Anxiety state, unspecified Parkinson's disease (HCC) Paralysis agitans documented in this encounter [facility] note* Diagnosis Parkinson's disease (HCC)- Primary Paralysis agitans [facility] Diagnosis Onychomycosis- Primary Dermatophytosis of nail Pain in toe of left foot Pain in limb Pain in toe of right foot Pain in limb [facility] Diagnosis Onset Date Resolution Status Brain TIA resolved Thyrotoxicosis acute Carotid stenosis, left acute Brain TIA resolved [facility] Work Phone: Evaluation note* Diagnosis Coronary artery disease of [place] artery of [place] heart with stable angina pectoris (HCC) Hyperlipidemia LDL goal <100 Other and unspecified hyperlipidemia [facility] Diagnosis Anxiety Anxiety state, unspecified Insomnia, unspecified type [facility] Diagnosis Coronary artery disease of [place] artery of [place] heart with stable angina pectoris (HCC) Hyperlipidemia LDL goal <100 Other and unspecified hyperlipidemia [facility] Diagnosis Onset Date Resolution Status Thyrotoxicosis acute Carotid stenosis, left chron ic Brain TIA resolved Parkinsons disease acute Carotid stenosis, left chron ic Mild cognitive impairment ch ronic Polyneuropathy chronic Vitamin d deficiency chronic Transient ischemic attack re solved Left renal mass acute [facility] Work Phone: Evaluation note* Diagnosis Coronary artery disease of [place] artery of [place] heart with stable angina pectoris (HCC) [facility] Diagnosis Medicare annual wellness visit, subsequent- Primary Routine general medical examination at a health care facility Chronic diarrhea Diarrhea Anxiety Anxiety state, unspecified Insomnia, unspecified type Primary hypertension Unspecified essential hypertension Hyperlipidemia LDL goal <100 Other and unspecified hyperlipidemia Abnormal weight loss Loss of weight Hyperthyroidism, subclinical Thyrotoxicosis without mention of goiter or other cause, without mention of thyrotoxic crisis or storm Encounter for immunization Need for other specified prophylactic vaccination against single bacterial disease Multiple lung nodules on CT Coronary artery disease of [place] artery of [place] heart with stable angina pectoris (HCC) [facility] Diagnosis Onset Date Resolution Status Carotid stenosis, left chron ic Brain TIA resolved Parkinsons disease acute Carotid stenosis, left chron ic Mild cognitive impairment ch ronic Polyneuropathy chronic Vitamin d deficiency chronic Transient ischemic attack re solved Left renal mass acute Change in bowel habit acute Diarrhea chronic [facility] Work Phone: Evaluation note* Diagnosis Coronary artery disease involving [place] coronary artery of [place] heart without angina pectoris [I25.10 (ICD-10-CM)]- Primary [facility] Diagnosis Onychomycosis- Primary Dermatophytosis of nail Pain in toe of left foot Pain in limb Pain in toe of right foot Pain in limb [facility] Diagnosis Onset Date Resolution Status Parkinsons disease acute Carotid stenosis, left chron ic Mild cognitive impairment ch ronic Polyneuropathy chronic Vitamin d deficiency chronic Transient ischemic attack re solved Left renal mass acute Change in bowel habit acute Diarrhea chronic Thyrotoxicosis acute Carotid stenosis, left chron ic Transient ischemic attack re solved [facility] Work Phone: Evaluation note* Diagnosis Onset Date Resolution Status Parkinsons disease acute Carotid stenosis, left chron ic Mild cognitive impairment ch ronic Polyneuropathy chronic Vitamin d deficiency chronic Transient ischemic attack re solved Left renal mass acute Change in bowel habit acute Diarrhea chronic Thyrotoxicosis acute Carotid stenosis, left chron ic Transient ischemic attack re solved Acute low back pain acute Fall acute Intractable back pain acute Renal dysfunction acute [facility] Work Phone: Evaluation note* Diagnosis Lung nodules- Primary Other nonspecific abnormal finding of lung field 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) Former cigarette smoker Personal history of tobacco use, presenting hazards to health [facility] Diagnosis Onset Date Resolution Status Left renal mass acute Change in bowel habit acute Diarrhea chronic Thyrotoxicosis acute Carotid stenosis, left chron ic Transient ischemic attack re solved Acute low back pain acute Fall acute Hypoxia acute Intractable back pain acute Renal dysfunction resolved Colon polyps acute Diarrhea chronic [facility] Work Phone: Evaluation note* Diagnosis Onset Date Resolution Status Thyrotoxicosis acute Carotid stenosis, left chron ic Transient ischemic attack re solved Acute low back pain acute Fall acute Hypoxia acute Intractable back pain acute Renal dysfunction resolved Colon polyps acute Diarrhea chronic Diarrhea [facility] Work Phone: Evaluation note* Diagnosis Onychomycosis- Primary Dermatophytosis of nail Pain in toe of left foot Pain in limb Pain in toe of right foot Pain in limb [facility] Diagnosis Acute hip pain, left- Primary Primary hypertension Unspecified essential hypertension 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 Allergic rhinitis, cause unspecified Parkinson's disease (HCC)- Primary Paralysis agitans TIA (transient ischemic attack) Unspecified transient cerebral ischemia [facility] Diagnosis Onset Date Resolution Status Carotid stenosis, left chron ic Transient ischemic attack re solved Acute low back pain acute Fall acute Hypoxia acute Intractable back pain acute Renal dysfunction resolved Colon polyps acute Diarrhea chronic Diarrhea [facility] Work Phone: Evaluation note* Diagnosis Parkinson's disease (HCC)- Primary Paralysis agitans TIA (transient ischemic attack) Unspecified transient cerebral ischemia Transient cerebral ischemia, unspecified type Diplopia Vertigo Dizziness and giddiness [facility]* Diagnosis Onset Date Resolution Status Diarrhea chronic Diarrhea chronic Thyrotoxicosis acute [facility] Work Phone: Evaluation note* Diagnosis Primary hypertension- Primary Unspecified essential hypertension Chronic diarrhea Diarrhea Anxiety Anxiety state, unspecified Insomnia, unspecified type Hyperlipidemia LDL goal <100 Other and unspecified hyperlipidemia Hyperthyroidism, subclinical Thyrotoxicosis without mention of goiter or other cause, without mention of thyrotoxic crisis or storm Platelets decreased (HCC) Thrombocytopenia, unspecified [facility]* Diagnosis Coronary artery disease of [place] artery of [place] heart with stable angina pectoris (HCC) Hyperlipidemia LDL goal <100 Other and unspecified hyperlipidemia [facility] Diagnosis Onset Date Resolution Status Diarrhea [facility] Work Phone: Evaluation note* Diagnosis Onychomycosis- Primary Dermatophytosis of nail Pain in toe of left foot Pain in limb Pain in toe of right foot Pain in limb [facility] Diagnosis Coronary artery disease of [place] artery of [place] heart with stable angina pectoris (HCC) [facility] Diagnosis Onset Date Resolution Status Diarrhea chronic Thyrotoxicosis [facility] Work Phone: Evaluation note* Diagnosis Primary hypertension- Primary Unspecified essential hypertension Hyperlipidemia LDL goal <100 Other and unspecified hyperlipidemia Coronary artery disease of [place] artery of [place] heart with stable angina pectoris (HCC) [facility]* Diagnosis Onset Date Resolution Status Diarrhea chronic Thyrotoxicosis chronic Carotid stenosis, left chron ic Pyloric stenosis acute [facility] Work Phone: Evaluation note* Diagnosis Onset Date Resolution Status Thyrotoxicosis chronic Carotid stenosis, left chron ic Pyloric stenosis acute Diarrhea [facility] Work Phone: Evaluation note* Diagnosis Onychomycosis- Primary Dermatophytosis of nail Pain in toe of left foot Pain in limb Pain in toe of right foot Pain in limb [facility] Diagnosis Onset Date Resolution Status Diarrhea chronic Acute calculous cholecystitis acute Parkinson's disease acute Hypertension [facility] Work Phone: Evaluation note* Diagnosis Onset Date Resolution Status Diarrhea chronic Acute calculous cholecystitis acute Constipation acute Hypoxia acute Parkinson's disease acute Weakness acute Hypertension [facility] Work Phone: Evaluation note* Diagnosis Onset Date Resolution Status Diarrhea chronic Parkinson's disease acute Hypertension chronic Acute calculous cholecystitis resolved Constipation resolved Hypoxia resolved Weakness resolved Urinary retention acute S/P laparoscopic cholecystectomy acute Thyrotoxicosis [facility] Work Phone: Evaluation note* Diagnosis Bilateral hearing loss, unspecified hearing loss type- Primary Parkinson's disease, unspecified whether dyskinesia present, unspecified whether manifestations fluctuate (HCC) Anxiety Anxiety state, unspecified Primary hypertension Unspecified essential hypertension Thyrotoxicosis without thyroid storm, unspecified thyrotoxicosis type Need for COVID-19 vaccine [facility] [place] [facility] Diagnosis Onychomycosis- Primary Dermatophytosis of nail Pain in toe of left foot Pain in limb Pain in toe of right foot Pain in limb [facility]* Diagnosis Coronary artery disease of [place] artery of [place] heart with stable angina pectoris (HCC) Hyperlipidemia LDL goal <100 Other and unspecified hyperlipidemia [facility] [place] [facility]* Diagnosis Onychomycosis- Primary Dermatophytosis of nail Pain in toe of left foot Pain in limb Pain in toe of right foot Pain in limb [facility]* Diagnosis Coronary artery disease of [place] artery of [place] heart with stable angina pectoris (HCC) [facility] Primary hypertension- Primary Unspecified essential hypertension Hyperlipidemia LDL goal <100 Other and unspecified hyperlipidemia Coronary artery disease of [place] artery of [place] heart with stable angina pectoris (HCC) [facility]* Diagnosis Parkinson's disease, unspecified whether dyskinesia present, unspecified whether manifestations fluctuate (HCC)- Primary Abnormality of gait [facility] [place] [facility]* Diagnosis Medicare annual wellness visit, subsequent- Primary Routine general medical examination at a health care facility Anxiety Anxiety state, unspecified Primary hypertension Unspecified essential hypertension Vasomotor rhinitis Allergic rhinitis, cause unspecified Screening for depression Parkinson's disease, unspecified whether dyskinesia present, unspecified whether manifestations fluctuate (HCC) Coronary artery disease of [place] artery of [place] heart with stable angina pectoris (HCC) Platelets decreased (HCC) Thrombocytopenia, unspecified Stage 3a chronic kidney disease (HCC) Thyrotoxicosis without thyroid storm, unspecified thyrotoxicosis type Need for COVID-19 vaccine History of renal cell cancer [facility] Diagnosis Onychomycosis- Primary Dermatophytosis of nail Pain in toe of left foot Pain in limb Pain in toe of right foot Pain in limb Callus of foot Corns and callosities [facility] Diagnosis Primary hypertension Unspecified essential hypertension [facility]* Diagnosis Parkinson's disease, unspecified whether dyskinesia present, unspecified whether manifestations fluctuate (HCC)- Primary Abnormality of gait [facility]* Diagnosis Onychomycosis- Primary Dermatophytosis of nail Pain in toe of left foot Pain in limb Pain in toe of right foot Pain in limb Callus of foot Corns and callosities [facility]* Diagnosis Dizziness- Primary Dizziness and giddiness Near syncope Syncope and collapse Bradycardia Other specified cardiac dysrhythmias Orthostatic hypotension Stage 3a chronic kidney disease (HCC) Abnormal CXR Other nonspecific abnormal finding of lung field [facility] Diagnosis Near syncope- Primary Syncope and collapse Primary hypertension Unspecified essential hypertension Bradyarrhythmia Other specified cardiac dysrhythmias Coronary artery disease of [place] artery of [place] heart with stable angina pectoris Parkinson's disease, unspecified whether dyskinesia present, unspecified whether manifestations fluctuate (HCC) [facility] Diagnosis Bradyarrhythmia- Primary Other specified cardiac dysrhythmias Primary hypertension Unspecified essential hypertension Dizziness Dizziness and giddiness Nausea without vomiting Anxiety Anxiety state, unspecified [facility] Diagnosis Sinus bradycardia- Primary Other specified cardiac dysrhythmias [facility]* Diagnosis Onychomycosis- Primary Dermatophytosis of nail Pain in toe of left foot Pain in limb Pain in toe of right foot Pain in limb Callus of foot Corns and callosities [facility]* Diagnosis Parkinson's disease, unspecified whether dyskinesia present, unspecified whether manifestations fluctuate (HCC)- Primary Abnormality of gait Lightheaded Dizziness and giddiness Bradycardia Other specified cardiac dysrhythmias [facility] Author James Obrien [facility] February 02, 2023 11:28am Note Date/Time February 02, 2023 11 :28am [facility] Medical Records Department [address] [place] [id number] History & Physical Exam 02/02/23 1128 MR#: [id number] Acct: [id number] Name: ROHAN OLIVIA Rep #:[id number] : 1945 77 From: James Obrien DO PCP: Dr. Brandon Cantor MD Status:R [facility] Location: [place] [address] History and Physical Date of Admission: 02/02/23 77 M who presents to the office today for Rohan Olivia [birth year]? [facility] ED 11.14.21 with suspicion of repeat pseudomembranous enterocolitis.? ? Prior imaging:? CT abd/pel 01.06.22?for abdominal pain/ renal cancer finding multiple gallstones; multiple hypodensities of liver; evidence of prior small bowel surgery; renal mass, recommend MRI/CT.? ? *BGI established 03.01.22 with watery loose stools, abdominal cramping and weightloss for a year. Weight loss largely r/t several hospitalizations for kidney, prostate and knee surgeries; since these have stabilized weight has been trending upward.? CDI history 2014+, +, negative. ? Colonoscopy 04.26.22?eight sessile TA polyps; end-to-end colo-colonic anastomosis, patent; congested mucosa of colon; extensive stool in cecum; TI moderate stenosis, balloon 15mm, resolved; diverticulosis; melanosis coli on pathology.? OV 05.10.22 loose stool resolved following polypectomy; one episode which he feels was r/t excessive chocolate.? OV 06.23.22 with return of loose stools three times a week with cramping and nocturnal presence. Notes some dietary triggers.?Biochemical?CBC, ESR, CMP, LDH, CRP, GAME, NICOLE comp, celiac without pertinent abnormality.?AST L13-ALT [id number], apANCA H1:160?Stool?calprotectin, lactoferrin, C.difficile WNL? OV 09.02.22 with spontaneous improvement of loose stools; though continues with nocturnal cramping and loose stools several times a week.?Start Lomotil.? Contact 09.27.22 with ongoing cramping,?start dicyclomine.? Contact 10.14.22 for update; reports ongoing loose stools, particularly nocturnal. Reports 18inches of bowel removed to address benign tumor. Has increased dicyclomine to 20mg QHS.?Start colestipol.?Call back in two weeks withupdate.? Contact 10.28.22 increase colestipol to 2g QHS.? Contact 11.16.22 Bowels have been fluctuating between soft stools with intermittent episodes of loose stools; this is improved from previously, continue colestipol 2g QHS.?Biochemical?Crohn?s (apANCA, Marvin), Vasculitis profile abnormality? OV 12.28.22 still having diarrhea, says bms b/t 12a-7a, none during the day. can have just 1or several, wakes him up. out of the dicyclomine-- has been sort of helpful. thecolestipol he stopped because it kept getting stuck- too hard to swallow. notes lots of gas, can cause pain at times. just really not liking the frequent bms atnight. I have examined the patient and the H&P has been reviewed. There are no clinicalchanges since date of exam. 02/02/23 1128 <Electronically signed by James Obrien DO> Cosigner Signature (if applicable): CC: Dr. Brandon Cantor MD; James Obrien DO~ Signed [facility] Work Phone: History and physical note Author James Obrien [facility] April 19, 2023 10:09am Note Date/Time April 19, 2023 10:09am [facility] Medical Records Department [address] [place] [address] History & Physical Exam 04/19/23 1007 MR#: [id number] Acct: [id number] Name: ROHAN OLIVIA Rep #:[id number] : 1945 77 From: James Obrien DO PCP: Dr. Brandon Cantor MD Status:R [facility] Location: [place] [address] HPI - General General Date of Admission: 04/19/23 Date of Service: 04/19/23 HPI Narrative ROHAN OLIVIA, is a 77 M who presents for an upper endoscopy regarding esophagealdysphagia. [facility] ED 11.14.21 with suspicion of repeat pseudomembranous enterocolitis.? ? Prior imaging:? CT abd/pel 01.06.22?for abdominal pain/ renal cancer finding multiple gallstones; multiple hypodensities of liver; evidence of prior small bowel surgery; renal mass, recommend MRI/CT.? ? *BGI established 03.01.22 with watery loose stools, abdominal cramping and weightloss for a year. Weight loss largely r/t several hospitalizations for kidney, prostate and knee surgeries; since these have stabilized weight has been trending upward.? CDI history 2014+, +, negative. ? Colonoscopy 04.26.22?eight sessile TA polyps; end-to-end colo-colonic anastomosis, patent; congested mucosa of colon; extensive stool in cecum; TI moderate stenosis, balloon 15mm, resolved; diverticulosis; melanosis coli on pathology.? OV 05.10.22 loose stool resolved following polypectomy; one episode which he feels was r/t excessive chocolate.? OV 06.23.22 with return of loose stools three times a week with cramping and nocturnal presence. Notes some dietary triggers.?Biochemical?CBC, ESR, CMP, LDH, CRP, GAME, NICOLE comp, celiac without pertinent abnormality.?AST L13-ALT [id number], apANCA H1:160?Stool?calprotectin, lactoferrin, C.difficile WNL? OV 09.02.22 with spontaneous improvement of loose stools; though continues with nocturnal cramping and loose stools several times a week.?Start Lomotil.? Contact 09.27.22 with ongoing cramping,?start dicyclomine.? Contact 10.14.22 for update; reports ongoing loose stools, particularly nocturnal. Reports 18inches of bowel removed to address benign tumor. Has increased dicyclomine to 20mg QHS.?Start colestipol.?Call back in two weeks withupdate.? Contact 10.28.22 increase colestipol to 2g QHS.? Contact 11.16.22 Bowels have been fluctuating between soft stools with intermittent episodes of loose stools; this is improved from previously, continue colestipol 2g QHS.?Biochemical?Crohn?s (apANCA, Marvin), Vasculitis profile abnormality? OV 12.28.22 still having diarrhea, says bms b/t 12a-7a, none during the day. can have just 1or several, wakes him up. out of the dicyclomine-- has been sort of helpful. thecolestipol he stopped because it kept getting stuck- too hard to swallow. notes lots of gas, can cause pain at times. just really not liking the frequent bms atnight. [facility] Medical History (Updated 04/19/23 @ 10:[address] Ramirez Friend, DO) Abnormal weight loss Acute respiratory failure with hypoxia Ambulates with cane Anxiety Arthritis Back pain BPH (benign prostatic hyperplasia) Cancer Cardiology follow-up encounter Change in bowel habit Chronic cough Chronic diarrhea Chronic respiratory failure with hypoxia Closed right hip fracture Depression Diarrhea Difficulty swallowing Excessive bleeding Expressive aphasia Fall Former smoker Heartburn History of Clostridium difficile infection History of echocardiogram History of pain when walking Hypercholesterolemia Hyperlipidemia Hypertension Hyperthyroidism Hypothyroidism IBS (irritable bowel syndrome) Leg cramps Melanoma in situ of unspecified part of face Osteoarthritis Osteoporosis Parkinsons disease Polycythemia Prostate disease Pulmonary embolism Shortness of breath on exertion Skin cancer Syncope Thyrotoxicosis Wears dentures Wears glasses Home Medications metoprolol tartrate 25 mg tablet 25 mg PO DAILY heart 04/15/21 [History Last Taken 04/18/23 09:00] potassium chloride 10 mEq capsule,extended release 10 meq PO BID supplement 04/15/21 [History Last Taken 04/29/22] cholecalciferol (vitamin D3) 25 mcg (1,000 unit) tablet (Vitamin D3) 25 mcg PO DAILY health maintenance 07/07/21 [History Last Taken 04/29/22] carbidopa 25 mg-levodopa 100 mg tablet 1 tab PO TID PARKINSONS 10/18/21 [History Last Taken 04/19/23] isosorbide mononitrate 30 mg tablet,extended release 24 hr 30 mg PO DAILY [id number]/16/22 [History Last Taken 04/29/22] lorazepam 1 mg tablet (Ativan) 1 mg PO DAILY PRN Anxiety 12/01/21 [History Last Taken 02/15/22] paroxetine HCl 20 mg tablet 20 mg PO DAILY DEPRESSION 12/07/21 [History Last Taken 02/15/22] atorvastatin 20 mg tablet 20 mg PO QHS CHOLESTEROL 02/08/22 [History Last Taken 04/28/22] tamsulosin 0.4 mg capsule 0.4 mg PO QHS urine flow 02/08/22 [History Last Taken 04/28/22] vitamin B12 0.5 mg-folic acid 1 mg tablet 1 tab PO DAILY 01/31/23 [History Last Taken Unknown] pantoprazole 40 mg tablet,delayed release 40 mg PO DAILY 30 days #30 tabs 02/28/23 [Rx Last Taken Unknown] methimazole 5 mg tablet 5 mg PO DAILY THYROID #30 tabs 03/09/23 [Rx Last Taken Unknown] Allergy/AdvReac Type Severity Reaction Status Date / Time No Known Allergies Allergy Verified 04/17/23 11:44 Family History Father Lung cancer Mother Parkinsons Heart failure Surgical History (Updated 04/17/23 @ 11:49 by Sonam Monsivais) H/O colonoscopy History of cardiac catheterization History of colon surgery History of esophagogastroduodenoscopy (EGD) History of nephrectomy, left History of rhinoplasty History of tonsillectomy History of total knee replacement (TKR) History of total right hip replacement History of transurethral resection of prostate Hx of colonoscopy reattachment of severed finger stoma reversal Social History household members: spouse housing: house 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al status: employed 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: [employer] pets and animals: Yes pets and animals: cat(s) and dog(s) Smoking Status: Former smoker quit date: 06/05/98 pack-years: 72 second hand exposure: No alcohol intake: never substance use type: does not use seatbelt use: always ROS ROS Narrative Constitutional: Denies: Anorexia, Chills, Fever, Night Sweats, Weight Change Eyes: Denies: Blurred vision, Cataracts, Conjunctivae Inflammation, Pain, Redness, Vision Change HEENT: Denies: Difficulty Hearing, Difficulty Swallowing, Head Aches, Hearing Changes, Sinus Congestion, Sinus Drainage Cardiovascular: Denies: Chest Pain, Orthopnea, Palpitations Respiratory: Denies: Cough, Shortness of breath at rest, Sputum production Gastrointestinal: Denies: Abdominal Pain, Nausea, Vomiting Genitourinary: Denies: Dysuria Musculoskeletal: Severe right flank pain denies: Joint Pain, Joint stiffness, Joint swelling, Joint Tenderness Skin: Denies: Rash, Wounds Neurological: Denies: Numbness, Tingling, Focal weakness Vital Signs Vital Signs Vital Signs: 04/19/23 10:02 04/19/23 10:02 Temperature 98.6 F Temperature Source Temporal Pulse Rate 60 Respiratory Rate 18 Respiratory Pattern Normal Blood Pressure 166/65 H Blood Pressure Mean 98 Blood Pressure Source Monitor Blood Pressure Position Semi-Fowlers Blood Pressure Location Right Arm Pulse Ox 95 Oxygen Delivery Method Room Air Weight Weight: 197 lb Body Mass Index (BMI) 28.3 Physical Exam Narrative Physical exam: General: Alert, Oriented x3, Cooperative, looks more comfortable HEENT: Atraumatic Oral: Moist Mucosa Neck: Supple Lungs: Diminished to auscultation Cardiovascular: HS I+II, regular, no murmurs Abdomen: Bowel Sounds Present, Soft, improved tenderness on palpation of the right flank and surrounding muscular area Extremities: No edema Skin: No rashes, No breakdown Neurological: Grossly intact Psych/Mental Status: Appropriate Assessment & Plan Assessment/Plan (1) Pyloric stenosis: PLAN: He will undergo an upper endoscopy with Botox injection into the pyloric sphincter and possibly into the distal esophagus. He was explained alternatives, risk, benefits including understanding bleeding, infection, sepsis, perforation, need for emergent . He will have an ASA of 3. 04/19/23 1009 <Electronically signed by James Obrien DO> Cosigner Signature (if applicable): CC: Dr. Brandon Cantor MD; James Obrien DO~ Signed [facility] Work Phone: History and physical note Author Geovanna Parsons [facility] August 18, 2023 10:47am Note Date/Time August 18, 2023 9:1 6am [facility] Medical Records Department [address] [place] [id number] H&P Exam - Surgical 08/18/23 0916 MR#: [id number] Acct: [id number] Name: ROHAN OLIVIA Rep #:[id number] : 1945 78 From: Geovanna Parsons MD PCP: Dr. Brandon Cantor MD Status:A DM TANISHA Location: [facility] [id number] HPI - General General Date of Admission: 08/18/23 HPI Narrative ROHAN OLIVIA, is a 78 M who presents to the ER due to epigastric/right upper quadrant pain started about 10- 11 PM last night accompanied with his . Patient denies having previous pain similar. Patient's CT abdomen pelvis showeda distended gallbladder with gallstones and questionable wall thickening. Patient normal white blood cell count no shift, normal LFTs. Patient's ultrasound suspicious for acute cholecystitis with pericholecystic fluid, thickened gallbladder wall, normal common bile duct and distended gallbladder. Patient did receive Zosyn IV in the ER. Patient does take a baby aspirin, but no other blood thinners. Patient has had multiple abdominal surgeries however they were all robotic including a colon surgery along with an ostomy and takedown of ostomy and then robotic left nephrectomy in 2021. [facility] Medical History Abnormal weight loss Acute respiratory failure with hypoxia Ambulates with cane Anxiety Arthritis Back pain BPH (benign prostatic hyperplasia) Cancer Cardiology follow-up encounter Change in bowel habit Chronic cough Chronic diarrhea Chronic respiratory failure with hypoxia Closed right hip fracture Depression Diarrhea Difficulty swallowing Excessive bleeding Expressive aphasia Fall Former smoker Heartburn History of Clostridium difficile infection History of echocardiogram History of pain when walking Hypercholesterolemia Hyperlipidemia Hypertension Hyperthyroidism Hypothyroidism IBS (irritable bowel syndrome) Leg cramps Melanoma in situ of unspecified part of face Osteoarthritis Osteoporosis Parkinsons disease Polycythemia Prostate disease Pulmonary embolism Shortness of breath on exertion Skin cancer Syncope Thyrotoxicosis Wears dentures Wears glasses Home Medications metoprolol tartrate 25 mg tablet 25 mg PO DAILY heart 04/15/21 [History Last Taken 04/18/23 09:00] potassium chloride 10 mEq capsule,extended release 10 meq PO BID supplement 04/15/21 [History Last Taken 04/29/22] cholecalciferol (vitamin D3) 25 mcg (1,000 unit) tablet (Vitamin D3) 25 mcg PO DAILY health maintenance 07/07/21 [History Last Taken 04/29/22] carbidopa 25 mg-levodopa 100 mg tablet 1 tab PO TID PARKINSONS 10/18/21 [History Last Taken 04/19/23] isosorbide mononitrate 30 mg tablet,extended release 24 hr 30 mg PO DAILY [id number]/16/22 [History Last Taken 04/29/22] lorazepam 1 mg tablet (Ativan) 1 mg PO DAILY PRN Anxiety 12/01/21 [History Last Taken 02/15/22] paroxetine HCl 20 mg tablet 20 mg PO DAILY DEPRESSION 12/07/21 [History Last Taken 02/15/22] atorvastatin 20 mg tablet 20 mg PO QHS CHOLESTEROL 02/08/22 [History Last Taken 04/28/22] methimazole 5 mg tablet 5 mg PO DAILY THYROID #30 tabs 03/09/23 [Rx Last Taken Unknown] cholestyramine (with sugar) 4 gram oral powder 1 g PO HS #348.6 grams 06/14/23 [Rx Last Taken Unknown] pantoprazole 40 mg tablet,delayed release 40 mg PO DAILY 30 days #30 tabs 06/14/23 [Rx Last Taken Unknown] Allergy/AdvReac Type Severity Reaction Status Date / Time No Known Allergies Allergy Verified 08/18/23 02:37 Family History Father Lung cancer Mother Parkinsons Heart failure Surgical History (Updated 04/17/23 @ 11:49 by Sonam Monsivais) H/O colonoscopy History of cardiac catheterization History of colon surgery History of esophagogastroduodenoscopy (EGD) History of nephrectomy, left History of rhinoplasty History of tonsillectomy History of total knee replacement (TKR) History of total right hip replacement History of transurethral resection of prostate Hx of colonoscopy reattachment of severed finger stoma reversal Social History household members: spouse housing: house 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al status: employed 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: [employer] pets and animals: Yes pets and animals: cat(s) and dog(s) Smoking Status: Former smoker quit date: 06/05/98 pack-years: 72 second hand exposure: No alcohol intake: never substance use type: does not use seatbelt use: always Vital Signs Vital Signs Vital Signs: 08/18/23 02:38 08/18/23 02:58 08/18/23 03:33 Temperature 98.5 F Temperature Source Oral Pulse Rate 74 70 71 Respiratory Rate 18 23 H 16 Blood Pressure 199/84 H 192/77 H 168/78 H Blood Pressure Mean 122 115 108 Pulse Ox 95 88 Oxygen Delivery Method Room Air Nasal Cannula Oxygen Flow Rate (L/min) 2 08/18/23 04:03 08/18/23 04:46 08/18/23 05:04 Temperature Temperature Source Pulse Rate 68 70 69 Respiratory Rate 18 17 15 Blood Pressure 179/82 H 170/86 H 174/80 H Blood Pressure Mean 114 114 111 Pulse Ox 92 97 95 Oxygen Delivery Method Nasal Cannula Nasal Cannula Nasal Cannula Oxygen Flow Rate (L/min) 2 3 2 08/18/23 03:01 08/18/23 03:15 08/18/23 03:30 Temperature Temperature Source Pulse Rate 69 71 70 Respiratory Rate 16 22 H 17 Blood Pressure 189/86 H 168/78 H Blood Pressure Mean 108 104 Pulse Ox 89 88 90 Oxygen Delivery Method Oxygen Flow Rate (L/min) 08/18/23 03:45 08/18/23 04:00 08/18/23 04:30 Temperature Temperature Source Pulse Rate 68 Respiratory Rate 25 H Blood Pressure 172/84 H 179/82 H 192/84 H Blood Pressure Mean 106 111 115 Pulse Ox 95 Oxygen Delivery Method Oxygen Flow Rate (L/min) 08/18/23 04:33 08/18/23 04:45 08/18/23 05:00 Temperature Temperature Source Pulse Rate 72 69 69 Respiratory Rate 14 18 18 Blood Pressure 170/86 H 174/80 H Blood Pressure Mean 108 108 Pulse Ox 97 95 94 Oxygen Delivery Method Oxygen Flow Rate (L/min) 08/18/23 05:15 08/18/23 05:30 08/18/23 05:45 Temperature Temperature Source Pulse Rate 71 70 82 Respiratory Rate 18 16 20 H Blood Pressure 165/80 H 163/78 H 142/70 H Blood Pressure Mean 105 102 86 Pulse Ox 93 93 Oxygen Delivery Method Oxygen Flow Rate (L/min) 08/18/23 06:00 08/18/23 06:15 08/18/23 06:30 Temperature Temperature Source Pulse Rate 69 69 68 Respiratory Rate 18 18 15 Blood Pressure 166/80 H 152/72 H 151/72 H Blood Pressure Mean 102 93 94 Pulse Ox 92 92 92 Oxygen Delivery Method Oxygen Flow Rate (L/min) 08/18/23 06:45 08/18/23 07:15 08/18/23 07:20 Temperature Temperature Source Pulse Rate 68 75 Respiratory Rate 20 H 21 H Blood Pressure 159/76 H 147/77 H Blood Pressure Mean 98 95 Pulse Ox 92 90 Oxygen Delivery Method Oxygen Flow Rate (L/min) 08/18/23 08:00 08/18/23 09:00 08/18/23 07:30 Temperature Temperature Source Pulse Rate 72 77 71 Respiratory Rate 16 20 H 21 H Blood Pressure 149/57 H 162/76 H 153/70 H Blood Pressure Mean 87 104 89 Pulse Ox 97 93 92 Oxygen Delivery Method Nasal Cannula Nasal Cannula Oxygen Flow Rate (L/min) 2 2 08/18/23 07:45 08/18/23 08:00 08/18/23 08:15 Temperature Temperature Source Pulse Rate 71 73 83 Respiratory Rate 20 H 20 H 26 H Blood Pressure 156/79 H 149/57 H 175/82 H Blood Pressure Mean 98 80 107 Pulse Ox 93 93 89 Oxygen Delivery Method Oxygen Flow Rate (L/min) Weight Weight: 188 lb 0.869 oz Body Mass Index (BMI) 26.9 Physical Exam Const alert, oriented x3 and no apparent distress HEENT normocephalic and head/scalp atraumatic Resp normal respiratory effort Cardio regular rate GI soft to palpation and non-tender; Negative for non-distended Palpation: Negative for guarding Extremity no clubbing, cyanosis or edema Skin no rashes or lesions noted Neuro CN's II-XII intact bilaterally Psych mental status grossly normal Results Lab / Micro Data 08/18/23 02:55 08/18/23 02:55 Labs: Laboratory Results - last 24 hr 08/18/23 02:55: WBC 9.1, RBC 5.28, Hgb 16.0, Hct 48.4, MCV 91.7, MCH 30.3, MCHC 33.1, RDW Std Deviation 47.7 H, RDW Coeff of Daisy 14.1, Plt Count 150, MPV 10.9, Immature Gran % (Auto) 0.400, Neut % (Auto) 80.6 H, Lymph % (Auto) 9.4 L, [place] %(Auto) 7.1, Eos % (Auto) 1.8, Baso % (Auto) 0.7, Absolute Neuts (auto) 7.4, Absolute Lymphs (auto) 0.86, Nucleated RBC % 0, Sodium 142, Potassium 3.9, Chloride 107, Carbon Dioxide 29.0, Anion Gap 6, BUN 19 H, Creatinine 1.54 H, Estim Creat Clear Calc 40.82, Est GFR (MDRD) Af Amer 56 L, Est GFR (MDRD) Non-Af47 L, BUN/Creatinine Ratio 12.3, Glucose 111 H, Calcium 9.5, Total Bilirubin 0.90, Direct Bilirubin 0.24, AST 14 L, ALT < 6 L, Alkaline Phosphatase 96, TotalProtein 7.0, Albumin 3.8, Globulin 3.2, Lipase 64 08/18/23 03:20: Lactic Acid 1.1 Imaging Radiology Impression Abdomen/Pelvis CT 08/18/23 03:12 IMPRESSION: Abnormal appearance of the gallbladder which is distended. Cholelithiasis. Inflammatory changes are present with associated intrahepatic biliary ductal dilatation. Findings suspicious for acute cholecystitis. Additional chronic changes as detailed above. Electronically Signed: Emmanuel Rivero MD at 5:16 EDT , Gallbladder Ultrasound 08/18/23 05:58 IMPRESSION: Fatty infiltration of the liver. Hepatic cysts. Multiple gallstones and sludge seen in the gallbladder lumen. Small amount of pericholecystic fluid. Gallbladder wall thickening. Right renal cyst. Electronically Signed: Cuong Reynolds MD at 8:21 EDT , Assessment & Plan Assessment/Plan (1) Acute calculous cholecystitis: (2) Hypertension: (3) Parkinson's disease: PLAN: Plan Reviewed the anatomy with the patient and discussed the procedure: laparoscopic cholecystectomy with possible cholangiograms, possible open. Review risks including but not limited to bleeding, infection, hernia, bile leak, retained gallstones requiring another procedure ERCP- Endoscopic Retrograde Cholangiopancreatography, injury to another organ (bile ducts, common bile duct,small bowel, etc.) and conversion to an open procedure. All questions were answered. Geovanna Parsons M.D. Pager: [phone] [facility] [address] [place] [address], [address] [place] [id number] Office: [phone] 08/18/23 1043 <Electronically signed by Geovanna Parsons MD> Cosigner Signature (if applicable): CC: Dr. Geovanna Parsons MD; Dr. Brandon Cantor MD~ Signed [facility] Work Phone: [facility] Work Phone: [facility] Work Phone: Hospital Discharge instructions Additional Instructions As we discussed it was noted that your resting heart rate is around 50-60. I would recommend that we decrease your metoprolol to 12.5 mg (a half a tablet) twice a day. I do not know if your cassandra architect can see you quickly but I would recommend a recheck of your heart rate and possible Holter monitor based on the symptoms we discussed today. This may be faster to see your primary care doctor.[facility] Work Phone: Reason for referral (narrative)* Diagnostic Procedure Only (Urgent) - Pending Review Specialty Diagnoses / Procedures Referred By Contac t Referred To Contact US IMAGING Diagnoses Renal mass, left Procedures US KIDNEY/BLADDER US RETROPERITONEAL REAL TIME W/IMAGE COMPLETE Ashwin Apodaca MD [address] [place] [address] Us Imaging Referral ID Status Reason Start Date Expiration Date Visits Requested Visits Authorized [id number] Pending Review Auto-Generat ed Referral 09/13/2021 10/13/2022 1 1 [facility] for referral (narrative)No reason for referral information availableWooPremier Health [facility] Work Phone: Summary Purpose Family History No Family History Records Found Relationship Condition Age at Onset Recorded Date/T isela father Malignant neoplasm of lung Unknown mother Parkinson's disease Unknown Heart failure Unknown Advance Directives No Advanced Directives Records FoundDocuments on File Type Date Recorded 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 Advance Directive(s) 08/20/2020 8:51 AM Documents on File Type Date Recorded 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 Advance Directive(s) 08/20/2020 8:51 AM Advance Directive Response Recorded Date/ Time Living Will No October 15, 2021 2 :18pm Power of Metal Furrer No October 15, 2021 2:18pm Advance Directive Response Recorded Date/ Time Living Will No October 18, 2021 1 1:25am Power of Metal Furrer No October 18, 2021 11:25am Advance Directive Response Recorded Date/ Time Living Will No October 18, 2021 1 :24pm Power of Metal Furrer No October 18, 2021 1:24pm Advance Directive Response Recorded Date/ Time Living Will No November 14, 2021 7:07am Power of Metal Furrer No November 14 7:07am Advance Directive Response Recorded Date/ Time Living Will No February 16, 2022 3:36pm Power of Metal Furrer No February 3:36pm Advance Directive Response Recorded Date/ Time Living Will No April 21, 2 022 12:35pm Power of Metal Furrer No April 21, 2022 12:35pm Advance Directive Response Recorded Date/ Time Living Will No April 29, 2 022 5:09pm Power of Metal Furrer No April 29, 2022 5:09pm Advance Directive Response Recorded Date/ Time Living Will No August 10, 2022 12:12pm Power of Metal Furrer No August 10 12:12pm Advance Directive Response Recorded Date/ Time Living Will No August 10, 2022 1:12pm Power of Metal Furrer No August 10 1:12pm Advance Directive Response Recorded Date/ Time Living Will No January 31 11:19am Power of Metal Furrer No January 31 2 023 11:19am Advance Directive Response Recorded Date/ Time Living Will No January 31 10:19am Power of Metal Furrer No January 31 2 023 10:19am Advance Directive Response Recorded Date/ Time Living Will No April 17 2 023 11:49am Power of Metal Furrer No April 17, 2023 11:49am Advance Directive Response Recorded Date/ Time Living Will No August 18, 2023 2:43am Power of Metal Furrer No August 17 2:43am Advance Directive Response Recorded Date/ Time Living Will No August 18, 2023 11:30am Power of Metal Furrer No August 17 11:30am Advance Directive Response Recorded Date/ Time Living Will No September 10, 2024 3:19pm Do you have a Healthcare Power of Metal Furrer? No September 10, 2024 3:19pm Reason for Referral Specialty Diagnoses / Procedures Referred By Dominga dyson Referred To Contact CT IMAGING Diagnoses Right lower quadrant abdominal pain Procedures CT ABD/PEL W IVCON CT ABD & PELVIS W/CONTRAST Ashwin Apodaca MD [address] [place] [address] Ct Imaging Referral ID Status Reason Start Date Expiration Date V isits Requested Visits Authorized [id number] Closed Auto-Generate d Referral 09/13/2021 10/13/2022 1 1 Specialty Diagnoses / Procedures Referred By Contac t Referred To Contact Neurology Diagnoses Tremor of both hands Abnormal gait Family history of Parkinson disease Procedures CONSULT TO NEUROLOGY OFFICE/OUTPATIENT NEW HIGH MDM 60-74 MINUTES Older, 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 [address] [place] [address] Referral ID Status Reason Start Date Expiration Date Visits Requested Visits Authorized [id number] Pending Review PCP Requested Referral 09/28/2021 09/28/2022 1 1 Specialty Diagnoses / Procedures Referred By Contac t Referred To Contact Gastroenterology Diagnoses Chronic diarrhea Abnormal weight loss Procedures CONSULT TO GASTROENTEROLOGY Brandon Cantor MD [address] [place] [address] Referral ID Status Reason Start Date Expiration Date Visits Requested Visits Authorized [id number] Ref Not Required PCP Requested Referral 11/17/2021 11/17/2022 1 1 Specialty Diagnoses / Procedures Referred By Contac t Referred To Contact CT IMAGING Diagnoses Lung nodules 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) Procedures CT CHEST WO IVCON DIAGNOSTIC COMPUTED TOMOGRAPHY THORAX W/O Sharon Naqvi MD [address] [place] [address] Ct Imaging Referral ID Status Reason Start Date Expiration Date Visits Requested Visits Authorized [id number] Authorized Auto-Generat ed Referral 06/14/2022 07/14/2023 1 1 Specialty Diagnoses / Procedures Referred By Contac t Referred To Contact MR IMAGING Diagnoses Transient cerebral ischemia, unspecified type Procedures MRI BRAIN WO IVCON MRI BRAIN BRAIN STEM W/O CONTRAST MATERIAL Angelica Ledbetter, 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 [address] [place] [address] Mr Imaging Referral ID Status Reason Start Date Expiration Date Visits Requested Visits Authorized [id number] Authorized Auto-Generat ed Referral 08/11/2022 09/10/2023 1 1 Specialty Diagnoses / Procedures Referred By Contac t Referred To Contact Ent - Otolaryngology Diagnoses Bilateral hearing loss, unspecified hearing loss type Procedures CONSULT TO ENT Brandon Cantor MD [address] [place] [address] Referral ID Status Reason Start Date Expiration Date Visits Requested Visits Authorized [id number] Ref Not Required PCP Requested Referral 11/09/2023 11/08/2024 1 1 Specialty Diagnoses / Procedures Referred By Dominga dyson Referred To Contact [facility] Diagnoses Parkinson's disease, unspecified whether dyskinesia present, unspecified whether manifestations fluctuate (HCC) Abnormality of gait Procedures CONSULT TO PHYSICAL THERAPY PHYSICAL THERAPY EVALUATION HIGH COMPLEX 45 MINS Chris Pearson Jr., MD [address] [place] [address] [facility] [place] [facility] [address] [place] [id number] Referral ID Status Reason Start Date Expiration Date Visits Requested Visits Authorized [id number] Pending Review Auto-Generat ed Referral 05/13/2024 05/13/2025 1 1 Chief Complaint and Reason for Visit Chief Complaint VEROUS DEFORMITY ERAS, RT TOTAL KNEE W TONIA ERAS, RT TOTAL KNEE W TONIA ERAS, RT TOTAL KNEE W TONIA FEVER FEVER FEVER FEVER FEVER FEVER FEVER diarrhea 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 Reason for Visit Acute respiratory fa ilure with hypoxia Status post total right knee replacement Hypertension Status post total right knee replacement Blister of lower leg Fever Knee effusion, right Chief Complaint VEROUS DEFORMITY ERAS, RT TOTAL KNEE W TONIA ERAS, RT TOTAL KNEE W TONIA ERAS, RT TOTAL KNEE W TONIA FEVER FEVER FEVER FEVER FEVER FEVER FEVER diarrhea 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, 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, 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 Reason for Visit Acute respiratory fa ilure with hypoxia Status post total right knee replacement Hypertension Status post total right knee replacement Blister of lower leg Fever Knee effusion, right Brain TIA Expressive aphasia Hyperthyroidism Hyperlipidemia Chief Complaint VEROUS DEFORMITY ERAS, RT TOTAL KNEE W TONIA ERAS, RT TOTAL KNEE W TONIA ERAS, RT TOTAL KNEE W TONIA FEVER FEVER FEVER FEVER FEVER FEVER FEVER diarrhea 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, 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, 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 TIA (cardiology) Reason for Visit Acute respiratory fa ilure with hypoxia Status post total right knee replacement Hypertension Status post total right knee replacement Blister of lower leg Fever Knee effusion, right Expressive aphasia Hyperthyroidism Brain TIA Expressive aphasia Hyperthyroidism Hyperlipidemia Chief Complaint ERAS, RT TOTAL KNEE W TONIA ERAS, RT TOTAL KNEE W TONIA ERAS, RT TOTAL KNEE W TONIA FEVER FEVER FEVER FEVER FEVER FEVER FEVER diarrhea 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, 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, 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 TIA (cardiology) TIA (cardiology) TIA/RX HERE diarrhea EORDER Reason for Visit Acute respiratory fa ilure with hypoxia Status post total right knee replacement Hypertension Status post total right knee replacement Blister of lower leg Fever Knee effusion, right Brain TIA Chief Complaint diarrhea 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, 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, 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 TIA (cardiology) TIA (cardiology) TIA/RX HERE diarrhea EORDER 1 M FU CAROTID US 12/01 Reason for Visit Brain TIA Thyrotoxicosis Carotid stenosis, left Brain TIA Chief Complaint 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, 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, 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 TIA (cardiology) TIA (cardiology) TIA/RX HERE diarrhea EORDER 1 M FU CAROTID US 12/01 EORDERS LEFT KIDNEY CA Reason for Visit Brain TIA Thyrotoxicosis Carotid stenosis, left Brain TIA Chief Complaint TIA/RX HERE diarrhea EORDER 1 M FU CAROTID US 12/01 EORDERS LEFT KIDNEY CA HOSP FU EORDER LAP ROBOTIC PARTIAL NEPHRECTOMY LEFT Reason for Visit Thyrotoxicosis Carotid stenosis, left Brain TIA Parkinsons disease Carotid stenosis, left Mild cognitive impairment Polyneuropathy Vitamin d deficiency Transient ischemic attack Left renal mass Chief Complaint CAROTID US 12/01 EORDERS LEFT KIDNEY CA HOSP FU EORDER LAP ROBOTIC PARTIAL NEPHRECTOMY LEFT Consult OCCLUSION AND STENOSIS OF LEFT CAROTID ARTERY Reason for Visit Carotid stenosis, le ft Brain TIA Parkinsons disease Carotid stenosis, left Mild cognitive impairment Polyneuropathy Vitamin d deficiency Transient ischemic attack Left renal mass Change in bowel habit Diarrhea Chief Complaint EORDERS LEFT KIDNEY CA HOSP FU EORDER LAP ROBOTIC PARTIAL NEPHRECTOMY LEFT Consult OCCLUSION AND STENOSIS OF LEFT CAROTID ARTERY 4 M FU DISCUSS CAROTID US Reason for Visit Parkinsons disease Carotid stenosis, left Mild cognitive impairment Polyneuropathy Vitamin d deficiency Transient ischemic attack Left renal mass Change in bowel habit Diarrhea Thyrotoxicosis Carotid stenosis, left Transient ischemic attack Chief Complaint EORDERS LEFT KIDNEY CA HOSP FU EORDER LAP ROBOTIC PARTIAL NEPHRECTOMY LEFT Consult OCCLUSION AND STENOSIS OF LEFT CAROTID ARTERY 4 M FU DISCUSS CAROTID US INTRACTABLE BACK PAIN INTRACTABLE BACK PAIN INTRACTABLE BACK PAIN Reason for Visit Parkinsons disease Carotid stenosis, left Mild cognitive impairment Polyneuropathy Vitamin d deficiency Transient ischemic attack Left renal mass Change in bowel habit Diarrhea Thyrotoxicosis Carotid stenosis, left Transient ischemic attack Acute low back pain Fall Intractable back pain Renal dysfunction Chief Complaint LAP ROBOTIC PARTIAL NEPHRECTOMY LEFT Consult OCCLUSION AND STENOSIS OF LEFT CAROTID ARTERY 4 M FU DISCUSS CAROTID US INTRACTABLE BACK PAIN INTRACTABLE BACK PAIN INTRACTABLE BACK PAIN 2 WK FU Reason for Visit Left renal mass Change in bowel habit Diarrhea Thyrotoxicosis Carotid stenosis, left Transient ischemic attack Acute low back pain Fall Hypoxia Intractable back pain Renal dysfunction Colon polyps Diarrhea Chief Complaint OCCLUSION AND STENOS IS OF LEFT CAROTID ARTERY 4 M FU DISCUSS CAROTID US INTRACTABLE BACK PAIN INTRACTABLE BACK PAIN INTRACTABLE BACK PAIN 2 WK FU 1 MO FU E ORDER Reason for Visit Thyrotoxicosis Carotid stenosis, left Transient ischemic attack Acute low back pain Fall Hypoxia Intractable back pain Renal dysfunction Colon polyps Diarrhea Diarrhea Chief Complaint DISCUSS CAROTID US INTRACTABLE BACK PAIN INTRACTABLE BACK PAIN INTRACTABLE BACK PAIN 2 WK FU 1 MO FU E ORDER DIZZINESS Reason for Visit Carotid stenosis, le ft Transient ischemic attack Acute low back pain Fall Hypoxia Intractable back pain Renal dysfunction Colon polyps Diarrhea Diarrhea Chief Complaint 1 MO FU E ORDER DIZZINESS 3 MO FU 4 M FU EORDER Reason for Visit Diarrhea Diarrhea Thyrotoxicosis Chief Complaint EORDER f/u cap endo Reason for Visit Diarrhea Chief Complaint EORDER f/u cap endo GASTROPARESIS Reason for Visit Diarrhea Chief Complaint f/u cap endo GASTROPARESIS 6 M FU Occlusion and stenosis of left carotid artery Reason for Visit Diarrhea Thyrotoxicosis Chief Complaint f/u cap endo GASTROPARESIS 6 M FU Occlusion and stenosis of left carotid artery CAROTID U/S 04/05 Reason for Visit Diarrhea Thyrotoxicosis Carotid stenosis, left Pyloric stenosis Chief Complaint GASTROPARESIS 6 M FU Occlusion and stenosis of left carotid artery CAROTID U/S 04/05 5 MO FU Reason for Visit Thyrotoxicosis Carotid stenosis, left Pyloric stenosis Diarrhea Chief Complaint 6 M FU Occlusion and stenosis of left carotid artery CAROTID U/S 04/05 5 MO FU LT KIDNEY CANCER Reason for Visit Thyrotoxicosis Carotid stenosis, left Pyloric stenosis Diarrhea Chief Complaint 5 MO FU LT KIDNEY CANCER ACUTE CHOLECYSTITIS Reason for Visit Diarrhea Acute calculous cholecystitis Parkinson's disease Hypertension Chief Complaint 5 MO FU LT KIDNEY CANCER ACUTE CHOLECYSTITIS ACUTE CHOLECYSTITIS ACUTE CHOLECYSTITIS ACUTE CHOLECYSTITIS ACUTE CHOLECYSTITIS Reason for Visit Diarrhea Acute calculous cholecystitis Constipation Hypoxia Parkinson's disease Weakness Hypertension Chief Complaint 5 MO FU LT KIDNEY CANCER ACUTE CHOLECYSTITIS ACUTE CHOLECYSTITIS ACUTE CHOLECYSTITIS ACUTE CHOLECYSTITIS ACUTE CHOLECYSTITIS D/C CRAWFORD D/C CRAWFORD ER FU GALLBLADDER DOS 08/17 6 M FU INT LABS Reason for Visit Diarrhea Parkinson's disease Hypertension Acute calculous cholecystitis Constipation Hypoxia Weakness Urinary retention S/P laparoscopic cholecystectomy Thyrotoxicosis Chief Complaint Admit Date LEFT HIP June 17, 2024 1 :11pm RM 1 June 17, 2024 1 :21pm [facility] RX HERE August 05, 2024 1:00 pm Reason for Visit Admit Date Lumbar spondylosis June 17, 2024 1 :11pm Parkinson's disease June 17, 2024 1 :11pm Trochanteric bursitis of left hip Januar y 2024 1:11pm Chief Complaint Admit Date LEFT HIP June 17, 2024 1 :11pm RM 1 June 17, 2024 1 :21pm [facility]. RX HERE August 05, 2024 1:00 pm dizziness September 10, 2024 2:23 pm Additional Source Comments (unrecognized sect ion and content) No Status Records FoundNo Status Records FoundNo Status Records Found INFORMATION SOURCE (unrecogn ized section and content) DATE CREATED AUTHOR 08/21/2020 [facility] DATE CREATED AUTHOR AUTHOR'S ORGANIZ ATION 09/19/2024 [facility] DATE CREATED AUTHOR AUTHOR'S ORGANIZ ATION 12/23/2024 [facility] Source Comments (unrecognize d section and content) In the event this informatio n is protected by the Federal Confidentiality of Alcohol and Drug Abuse Patient Records regulations: The Federal rules restrict any use of the information to criminally investigate or prosecute any alcohol or drug abuse patient.[facility] TroyIn the event this information is protected by the Federal Confidentiality of Alcohol and Drug Abuse Patient Records regulations: The Federal rules restrict any use of the information to criminally investigate or prosecute any alcohol or drug abuse patient.[facility] TroyIn the event this information is protected by the Federal Confidentiality of Alcohol and Drug Abuse Patient Records regulations: The Federal rules restrict any use of the information to criminally investigate or prosecute any alcohol or drug abuse patient.[facility] TroyIn the event this information is protected by the Federal Confidentiality of Alcohol and Drug Abuse Patient Records regulations: The Federal rules restrict any use of the information to criminally investigate or prosecute any alcohol or drug abuse patient.[facility] TroyIn the event this information is protected by the Federal Confidentiality of Alcohol and Drug Abuse Patient Records regulations: The Federal rules restrict any use of the information to criminally investigate or prosecute any alcohol or drug abuse patient.[facility] TroyIn the event this information is protected by the Federal Confidentiality of Alcohol and Drug Abuse Patient Records regulations: The Federal rules restrict any use of the information to criminally investigate or prosecute any alcohol or drug abuse patient.[facility] TroyIn the event this information is protected by the Federal Confidentiality of Alcohol and Drug Abuse Patient Records regulations: The Federal rules restrict any use of the information to criminally investigate or prosecute any alcohol or drug abuse patient.[facility] TroyIn the event this information is protected by the Federal Confidentiality of Alcohol and Drug Abuse Patient Records regulations: The Federal rules restrict any use of the information to criminally investigate or prosecute any alcohol or drug abuse patient.[facility] TroyIn the event this information is protected by the Federal Confidentiality of Alcohol and Drug Abuse Patient Records regulations: The Federal rules restrict any use of the information to criminally investigate or prosecute any alcohol or drug abuse patient.[facility] TroyIn the event this information is protected by the Federal Confidentiality of Alcohol and Drug Abuse Patient Records regulations: The Federal rules restrict any use of the information to criminally investigate or prosecute any alcohol or drug abuse patient.[facility] TroyIn the event this information is protected by the Federal Confidentiality of Alcohol and Drug Abuse Patient Records regulations: The Federal rules restrict any use of the information to criminally investigate or prosecute any alcohol or drug abuse patient.[facility] TroyIn the event this information is protected by the Federal Confidentiality of Alcohol and Drug Abuse Patient Records regulations: The Federal rules restrict any use of the information to criminally investigate or prosecute any alcohol or drug abuse patient.[facility] TroyIn the event this information is protected by the Federal Confidentiality of Alcohol and Drug Abuse Patient Records regulations: The Federal rules restrict any use of the information to criminally investigate or prosecute any alcohol or drug abuse patient.[facility] TroyIn the event this information is protected by the Federal Confidentiality of Alcohol and Drug Abuse Patient Records regulations: The Federal rules restrict any use of the information to criminally investigate or prosecute any alcohol or drug abuse patient.[facility] TroyIn the event this information is protected by the Federal Confidentiality of Alcohol and Drug Abuse Patient Records regulations: The Federal rules restrict any use of the information to criminally investigate or prosecute any alcohol or drug abuse patient.[facility] TroyIn the event this information is protected by the Federal Confidentiality of Alcohol and Drug Abuse Patient Records regulations: The Federal rules restrict any use of the information to criminally investigate or prosecute any alcohol or drug abuse patient.[facility] TroyIn the event this information is protected by the Federal Confidentiality of Alcohol and Drug Abuse Patient Records regulations: The Federal rules restrict any use of the information to criminally investigate or prosecute any alcohol or drug abuse patient.[facility] TroyIn the event this information is protected by the Federal Confidentiality of Alcohol and Drug Abuse Patient Records regulations: The Federal rules restrict any use of the information to criminally investigate or prosecute any alcohol or drug abuse patient.[facility] TroyIn the event this information is protected by the Federal Confidentiality of Alcohol and Drug Abuse Patient Records regulations: The Federal rules restrict any use of the information to criminally investigate or prosecute any alcohol or drug abuse patient.[facility] TroyIn the event this information is protected by the Federal Confidentiality of Alcohol and Drug Abuse Patient Records regulations: The Federal rules restrict any use of the information to criminally investigate or prosecute any alcohol or drug abuse patient.[facility] TroyIn the event this information is protected by the Federal Confidentiality of Alcohol and Drug Abuse Patient Records regulations: The Federal rules restrict any use of the information to criminally investigate or prosecute any alcohol or drug abuse patient.[facility] TroyIn the event this information is protected by the Federal Confidentiality of Alcohol and Drug Abuse Patient Records regulations: The Federal rules restrict any use of the information to criminally investigate or prosecute any alcohol or drug abuse patient.[facility] TroyIn the event this information is protected by the Federal Confidentiality of Alcohol and Drug Abuse Patient Records regulations: The Federal rules restrict any use of the information to criminally investigate or prosecute any alcohol or drug abuse patient.[facility] TroyIn the event this information is protected by the Federal Confidentiality of Alcohol and Drug Abuse Patient Records regulations: The Federal rules restrict any use of the information to criminally investigate or prosecute any alcohol or drug abuse patient.[facility] TroyIn the event this information is protected by the Federal Confidentiality of Alcohol and Drug Abuse Patient Records regulations: The Federal rules restrict any use of the information to criminally investigate or prosecute any alcohol or drug abuse patient.[facility] TroyIn the event this information is protected by the Federal Confidentiality of Alcohol and Drug Abuse Patient Records regulations: The Federal rules restrict any use of the information to criminally investigate or prosecute any alcohol or drug abuse patient.[facility] TroyIn the event this information is protected by the Federal Confidentiality of Alcohol and Drug Abuse Patient Records regulations: The Federal rules restrict any use of the information to criminally investigate or prosecute any alcohol or drug abuse patient.[facility] TroyIn the event this information is protected by the Federal Confidentiality of Alcohol and Drug Abuse Patient Records regulations: The Federal rules restrict any use of the information to criminally investigate or prosecute any alcohol or drug abuse patient.[facility] TroyIn the event this information is protected by the Federal Confidentiality of Alcohol and Drug Abuse Patient Records regulations: The Federal rules restrict any use of the information to criminally investigate or prosecute any alcohol or drug abuse patient.[facility] TroyIn the event this information is protected by the Federal Confidentiality of Alcohol and Drug Abuse Patient Records regulations: The Federal rules restrict any use of the information to criminally investigate or prosecute any alcohol or drug abuse patient.[facility] TroyIn the event this information is protected by the Federal Confidentiality of Alcohol and Drug Abuse Patient Records regulations: The Federal rules restrict any use of the information to criminally investigate or prosecute any alcohol or drug abuse patient.[facility] TroyIn the event this information is protected by the Federal Confidentiality of Alcohol and Drug Abuse Patient Records regulations: The Federal rules restrict any use of the information to criminally investigate or prosecute any alcohol or drug abuse patient.[facility] TroyIn the event this information is protected by the Federal Confidentiality of Alcohol and Drug Abuse Patient Records regulations: The Federal rules restrict any use of the information to criminally investigate or prosecute any alcohol or drug abuse patient.[facility] TroyIn the event this information is protected by the Federal Confidentiality of Alcohol and Drug Abuse Patient Records regulations: The Federal rules restrict any use of the information to criminally investigate or prosecute any alcohol or drug abuse patient.[facility] TroyIn the event this information is protected by the Federal Confidentiality of Alcohol and Drug Abuse Patient Records regulations: The Federal rules restrict any use of the information to criminally investigate or prosecute any alcohol or drug abuse patient.[facility] TroyIn the event this information is protected by the Federal Confidentiality of Alcohol and Drug Abuse Patient Records regulations: The Federal rules restrict any use of the information to criminally investigate or prosecute any alcohol or drug abuse patient.[facility] TroyIn the event this information is protected by the Federal Confidentiality of Alcohol and Drug Abuse Patient Records regulations: The Federal rules restrict any use of the information to criminally investigate or prosecute any alcohol or drug abuse patient.[facility] TroyIn the event this information is protected by the Federal Confidentiality of Alcohol and Drug Abuse Patient Records regulations: The Federal rules restrict any use of the information to criminally investigate or prosecute any alcohol or drug abuse patient.[facility] TroyIn the event this information is protected by the Federal Confidentiality of Alcohol and Drug Abuse Patient Records regulations: The Federal rules restrict any use of the information to criminally investigate or prosecute any alcohol or drug abuse patient.[facility] TroyIn the event this information is protected by the Federal Confidentiality of Alcohol and Drug Abuse Patient Records regulations: The Federal rules restrict any use of the information to criminally investigate or prosecute any alcohol or drug abuse patient.[facility] TroyIn the event this information is protected by the Federal Confidentiality of Alcohol and Drug Abuse Patient Records regulations: The Federal rules restrict any use of the information to criminally investigate or prosecute any alcohol or drug abuse patient.[facility] TroyIn the event this information is protected by the Federal Confidentiality of Alcohol and Drug Abuse Patient Records regulations: The Federal rules restrict any use of the information to criminally investigate or prosecute any alcohol or drug abuse patient.[facility] TroyIn the event this information is protected by the Federal Confidentiality of Alcohol and Drug Abuse Patient Records regulations: The Federal rules restrict any use of the information to criminally investigate or prosecute any alcohol or drug abuse patient.[facility] TroyIn the event this information is protected by the Federal Confidentiality of Alcohol and Drug Abuse Patient Records regulations: The Federal rules restrict any use of the information to criminally investigate or prosecute any alcohol or drug abuse patient.[facility] TroyIn the event this information is protected by the Federal Confidentiality of Alcohol and Drug Abuse Patient Records regulations: The Federal rules restrict any use of the information to criminally investigate or prosecute any alcohol or drug abuse patient.[facility] TroyIn the event this information is protected by the Federal Confidentiality of Alcohol and Drug Abuse Patient Records regulations: The Federal rules restrict any use of the information to criminally investigate or prosecute any alcohol or drug abuse patient.[facility] TroyIn the event this information is protected by the Federal Confidentiality of Alcohol and Drug Abuse Patient Records regulations: The Federal rules restrict any use of the information to criminally investigate or prosecute any alcohol or drug abuse patient.[facility] TroyIn the event this information is protected by the Federal Confidentiality of Alcohol and Drug Abuse Patient Records regulations: The Federal rules restrict any use of the information to criminally investigate or prosecute any alcohol or drug abuse patient.[facility] TroyIn the event this information is protected by the Federal Confidentiality of Alcohol and Drug Abuse Patient Records regulations: The Federal rules restrict any use of the information to criminally investigate or prosecute any alcohol or drug abuse patient.[facility] TroyIn the event this information is protected by the Federal Confidentiality of Alcohol and Drug Abuse Patient Records regulations: The Federal rules restrict any use of the information to criminally investigate or prosecute any alcohol or drug abuse patient.[facility] TroyIn the event this information is protected by the Federal Confidentiality of Alcohol and Drug Abuse Patient Records regulations: The Federal rules restrict any use of the information to criminally investigate or prosecute any alcohol or drug abuse patient.[facility] TroyIn the event this information is protected by the Federal Confidentiality of Alcohol and Drug Abuse Patient Records regulations: The Federal rules restrict any use of the information to criminally investigate or prosecute any alcohol or drug abuse patient.[facility] TroyIn the event this information is protected by the Federal Confidentiality of Alcohol and Drug Abuse Patient Records regulations: The Federal rules restrict any use of the information to criminally investigate or prosecute any alcohol or drug abuse patient.[facility] TroyIn the event this information is protected by the Federal Confidentiality of Alcohol and Drug Abuse Patient Records regulations: The Federal rules restrict any use of the information to criminally investigate or prosecute any alcohol or drug abuse patient.[facility] TroyIn the event this information is protected by the Federal Confidentiality of Alcohol and Drug Abuse Patient Records regulations: The Federal rules restrict any use of the information to criminally investigate or prosecute any alcohol or drug abuse patient.[facility] TroyIn the event this information is protected by the Federal Confidentiality of Alcohol and Drug Abuse Patient Records regulations: The Federal rules restrict any use of the information to criminally investigate or prosecute any alcohol or drug abuse patient.[facility] TroyIn the event this information is protected by the Federal Confidentiality of Alcohol and Drug Abuse Patient Records regulations: The Federal rules restrict any use of the information to criminally investigate or prosecute any alcohol or drug abuse patient.[facility] TroyIn the event this information is protected by the Federal Confidentiality of Alcohol and Drug Abuse Patient Records regulations: The Federal rules restrict any use of the information to criminally investigate or prosecute any alcohol or drug abuse patient.[facility] TroyIn the event this information is protected by the Federal Confidentiality of Alcohol and Drug Abuse Patient Records regulations: The Federal rules restrict any use of the information to criminally investigate or prosecute any alcohol or drug abuse patient.[facility] TroyIn the event this information is protected by the Federal Confidentiality of Alcohol and Drug Abuse Patient Records regulations: The Federal rules restrict any use of the information to criminally investigate or prosecute any alcohol or drug abuse patient.[facility] TroyIn the event this information is protected by the Federal Confidentiality of Alcohol and Drug Abuse Patient Records regulations: The Federal rules restrict any use of the information to criminally investigate or prosecute any alcohol or drug abuse patient.[facility] TroyIn the event this information is protected by the Federal Confidentiality of Alcohol and Drug Abuse Patient Records regulations: The Federal rules restrict any use of the information to criminally investigate or prosecute any alcohol or drug abuse patient.[facility] TroyIn the event this information is protected by the Federal Confidentiality of Alcohol and Drug Abuse Patient Records regulations: The Federal rules restrict any use of the information to criminally investigate or prosecute any alcohol or drug abuse patient.[facility] TroyIn the event this information is protected by the Federal Confidentiality of Alcohol and Drug Abuse Patient Records regulations: The Federal rules restrict any use of the information to criminally investigate or prosecute any alcohol or drug abuse patient.[facility] TroyIn the event this information is protected by the Federal Confidentiality of Alcohol and Drug Abuse Patient Records regulations: The Federal rules restrict any use of the information to criminally investigate or prosecute any alcohol or drug abuse patient.[facility] Reason for Visit (unrecogniz ed section and content) Reason Comments Radiology CT Specialty Diagnoses / Procedures Referred By Dominga dyson Referred To Contact CT IMAGING Diagnoses Right lower quadrant abdominal pain Procedures CT ABD/PEL W IVCON CT ABD & PELVIS W/CONTRAST Ashwin Apodaca MD [address] [place] [address] Ct Imaging Referral ID Status Reason Start Date Expiration Date V isits Requested Visits Authorized [id number] Closed Auto-Generate d Referral 09/13/2021 10/13/2022 1 1 Reason Comments Patient Question Reason Comments Insurance Authorization Reason Comments Medication Request Reason Comments Pain right lower side sesar n/waist area (today slight pain across ABD) Reason Comments Results Reason Comments hands shaking since surgeries prostate 1 07/15 - rka 07/21 Reason Comments New Patient Specialty Diagnoses / Procedures Referred By Dominga dyson Referred To Contact Neurology Diagnoses Tremor of both hands Abnormal gait Family history of Parkinson disease Procedures CONSULT TO NEUROLOGY OFFICE/OUTPATIENT NEW HIGH MDM 60-74 MINUTES Older, 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, 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 [address] [place] [address] Referral ID Status Reason Start Date Expiration Date Visits Requested Visits Authorized [id number] Pending Review PCP Requested Referral 09/28/2021 09/28/2022 1 1 Reason Comments Patient Update Reason Comments F/U 3 Month Reason Comments New NI Medical Consult for Bilatera l hand tremors, Abnormal gait and Family history of Parkinson's Disease Reason Comments Established Patient Nail Care Reason Onset Date Comments Refill Request 12/27/2021 Reason Onset Date Comments Refill Request 01/14/2022 Reason Onset Date Comments Refill Request 03/29/2022 Reason Comments Medicare Wellness Exam Reason Comments Established Patient Follow-Up Reason Comments Established Patient Follow Up nail care Reason Onset Date Comments Transition Of Care 05/03/2022 Reason Comments Established Patient Follow up dyspnea Lung nodules Reason Comments Established Patient Follow Up nail care Reason Comments 4 month follow-up Reason Comments Follow Up 4 month follow up, s een in 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 [address] [place] [address] [place] [address] Referral ID Status Reason Start Date Expiration Date V isits Requested Visits Authorized [id number] Closed Auto-Generate d Referral 08/11/2022 09/10/2023 1 1 Reason Comments Established Patient nail care Reason Comments F/U 6 months Reason Onset Date Comments Population Health Navigation Outreach 11/22/2023 [facility] CURRENT ROSTER workbenc - Care gaps, HCC gap closure - [place] [facility] Reason Onset Date Comments Erroneous encounter-disregard 01/22/2024 Reason Onset Date Comments Refill Request 01/29/2024 Reason Onset Date Comments Population Health Navigation Outreach 03/22/2024 [facility] - [place] [facility] Reason Onset Date Comments Refill Request 04/01/2024 Reason Comments Yearly Exam Reason Comments Letter for excuse from jury duty Reason Comments New Patient Evaluation Patient was evalu ated for Parkinson's three years ago by a provider in [facility] since this visit he has a worsening tremor of both hands and legs, gait has also worsened, states if he stands up too quickly he looses his balance Reason Comments Medicare Wellness Exam F/U 6 months Reason Onset Date Comments Refill Request 07/30/2024 Reason Onset Date Comments Refill Request 08/09/2024 Reason Comments Follow Up Parkinson's follow u p, patient has completed physical therapy as ordered at last visit, patient also taking Sinemet CR at 9 PM as ordered Reason Comments ER F/U Reason Comments Results Discuss Zio results Reason Comments 6 Month Exam Reason Comments Appointment Orders Reason Comments Established Patient Follow Up nail care Callous Reason Comments Follow Up ELEON[place]A 08/16/24 Care Teams (unrecognized sec tion and content) Barrel Rifler Button Relationship Specialty Start Date End Date Brandon Cantor MD [address] [place] [address] PCP - General 05/04/09 Barrel Rifler Button Relationship Specialty Start Date End Date Brandon Cantor MD [address] [place] [address] PCP - General 05/04/09 Barrel Rifler Button Relationship Specialty Start Date End Date Brandon Cantor MD [address] [facility] [place] [place] [address] PCP - General 05/04/09 Barrel Rifler Button Relationship Specialty Start Date End Date Brandon Cantor MD [address] [facility] [place] [address] PCP - General 05/04/09 Barrel Rifler Button Relationship Specialty Start Date End Date Brandon Cantor MD [address] [facility] [place] [address] PCP - General 05/04/09 Barrel Rifler Button Relationship Specialty Start Date End Date Brandon Cantor MD [address] [place] [address] PCP - General 05/04/09 Barrel Rifler Button Relationship Specialty Start Date End Date Brandon Cantor MD [address] [place] [address] PCP - General 05/04/09 Barrel Rifler Button Relationship Specialty Start Date End Date Brandon Cantor MD [address] [place] [address] PCP - General 05/04/09 Barrel Rifler Button Relationship Specialty Start Date End Date Brandon Cantor MD [address] [place] [address] PCP - General 05/04/09 Barrel Rifler Button Relationship Specialty Start Date End Date Brandon Cantor MD [facility] [place] [address] PCP - General 05/04/09 Barrel Rifler Button Relationship Specialty Start Date End Date Brandon Cantor MD [address] [place] [address] PCP - General 05/04/09 Barrel Rifler Button Relationship Specialty Start Date End Date Brandon Cantor MD [address] [place] [address] PCP - General 05/04/09 Barrel Rifler Button Relationship Specialty Start Date End Date Brandon Cantor MD [address] [place] [address] PCP - General 05/04/09 Barrel Rifler Button Relationship Specialty Start Date End Date Brandon Cantor MD [address] [place] [address] PCP - General 05/04/09 Barrel Rifler Button Relationship Specialty Start Date End Date Brandon Cantor MD [address] [place] [address] PCP - General 05/04/09 Barrel Rifler Button Relationship Specialty Start Date End Date Brandon Cantor MD [address] [place] [address] PCP - General 05/04/09 Team Status: Active Member Role Status Dates Dr. Brandon Cantor MD Family Provider Active Dr. Brandon Cantor MD Primary Care Provider Active Team Status: Inactive Member Role Status Dates Dr. Brandon Cantor MD Primary Care Provider, Refer ring Provider Active Dr. Marquis Murray MD Attending Provider Active Team Status: Inactive Member Role Status Dates Dr. Brandon Cantor MD Primary Care Provider, Refer ring Provider Active Dr. James Obrien DO Attending Provider Active Team Status: Inactive Member Role Status Dates Dr. Brandon Cantor MD Primary Care Provider, Refer ring Provider Active Ninoska Tyler MIXER CRANE OPERATOR, MIXER CRANE OPERATOR-C Attending Provider Active Team Status: Active Member Role Status Dates Dr. Brandon Cantor MD Primary Care Provider Active Dr. William Jimenes MD Attending Provider, Referring Provider Active Team Status: Inactive Member Role Status Dates Dr. Brandon Cantor MD Primary Care Provider, Refer ring Provider Active Dr. William Jimenes MD Attending Provider Active Team Status: Active Member Role Status Dates Dr. Brandon Cantor MD Primary Care Provider, Refer ring Provider Active Dr. James Obrien DO Attending Provider, Other Prov ider Active Team Status: Active Member Role Status Dates Dr. Brandon Cantor MD Primary Care Provider Active Dr. Jaspreet Cummins DO Emergency Provider Active Dr. Ewa Ordonez MD Admit Provider, Atte nding Provider, Other Provider Active Team Status: Inactive Member Role Status Dates Dr. Brandon Cantor MD Primary Care Provider Active Dr. Gio Connolly MD Admit Provid er, Attending Provider, Referring Provider Active Team Status: Inactive Member Role Status Dates Dr. Brandon Cantor MD Primary Care Provider Active Dr. William Jimenes MD Attending Provider, Referring Provider Active Team Status: Inactive Member Role Status Dates Dr. Brandon Cantor MD Primary Care Provider Active Dr. Jaspreet Cummins DO Emergency Provider Active Dr. Ewa Ordonez MD Admit Provider, Attending Provider Active Team Status: Inactive Member Role Status Dates Dr. Brandon Cantor MD Primary Care Provider Active Dr. Gio Connolly MD Attending Provider Active Team Status: Inactive Member Role Status Dates Dr. Brandon Cantor MD Primary Care Provider Active Ninoska Tyler MIXER CRANE OPERATOR, MIXER CRANE OPERATOR-C Attending Provider Active Team Status: Active Member Role Status Dates Dr. Brandon Cantor MD Primary Care Provider Active Ninoska Tyler MIXER CRANE OPERATOR, MIXER CRANE OPERATOR-C Attending Provider, Referrin g Provider Active Team Status: Inactive Member Role Status Dates Dr. Brandon Cantor MD Primary Care Provider Active Ninoska Tyler MIXER CRANE OPERATOR, MIXER CRANE OPERATOR-C Attending Provider, Referrin g Provider Active Barrel Rifler Button Relationship Specialty Start Date End Date Brandon Cantor MD [address] [place] [address] PCP - General 05/04/09 Team Status: Inactive Member Role Status Dates Dr. Brandon Cantor MD Primary Care Provider Active Dr. Akin Fox MD Emergency Provider Active Barrel Rifler Button Relationship Specialty Start Date End Date Brandon Cantor MD [address] [facility] [place] [address] PCP - General 05/04/09 Barrel Rifler Button Relationship Specialty Start Date End Date Brandon Cantor MD [address] [place] [address] PCP - General 05/04/09 Team Status: Inactive Member Role Status Dates Dr. Brandon Cantor MD Primary Care Provider Active Dr. Akin Fox MD Attending Provider, Emergency Provi tequila Active Team Status: Inactive Member Role Status Dates Dr. Brandon Cantor MD Primary Care Provider Active Dr. Marquis Murray MD Attending Provider, Referring Provi tequila Active Barrel Rifler Button Relationship Specialty Start Date End Date Brandon Cantor MD [address] [facility] [place] [address] PCP - General 05/04/09 Barrel Rifler Button Relationship Specialty Start Date End Date Brandon Cantor MD [address] [place] [address] PCP - General 05/04/09 Team Status: Inactive Member Role Status Dates Dr. Brandon Cantor MD Primary Care Provider Active Dr. Gio Connolly MD Attending Provider, Referr ing Provider Active Team Status: Inactive Member Role Status Dates Dr. Brandon Cantor MD Primary Care Provider Active Dr. James Obrien DO Attending Provider, Referring Provider Active Barrel Rifler Button Relationship Specialty Start Date End Date Brandon Cantor MD [address] [place] [address] PCP - General 05/04/09 Barrel Rifler Button Relationship Specialty Start Date End Date Brandon Cantor MD [address] [place] [address] PCP - General 05/04/09 Barrel Rifler Button Relationship Specialty Start Date End Date Brandon Cantor MD [address] [place] [address] PCP - General 05/04/09 Barrel Rifler Button Relationship Specialty Start Date End Date Brandon Cantor MD [address] [place] [address] PCP - General 05/04/09 Barrel Rifler Button Relationship Specialty Start Date End Date Brandon Cantor MD [address] [place] [address] PCP - General 05/04/09 Barrel Rifler Button Relationship Specialty Start Date End Date Brandon Cantor MD [address] [place], [place] [address] PCP - General 05/04/09 Barrel Rifler Button Relationship Specialty Start Date End Date Brandon Cantor MD [address] [place] [address] PCP - General 05/04/09 Team Status: Active Member Role Status Dates Dr. Brandon Cantor MD Primary Care Provider Active Dr. Wisam Bella DO Emergency Provider Active Dr. Geovanna Parsons MD Admit Provider, Attending Pro vider Active Team Status: Active Member Role Status Dates Dr. Brandon Cantor MD Primary Care Provider Active Dr. Wisam Bella DO Emergency Provider Active Dr. Geovanna Parsons MD Admit Provider, Attending Provider, Other Provider Active Team Status: Active Member Role Status Dates Dr. Brandon Cantor MD Primary Care Provider Active Dr. Wisam Bella DO Emergency Provider Active Dr. Geovanna Parsons MD Admit Provider, Other Provide r Active Dr. Mateo Pastor MD Attending Provider Active Team Status: Active Member Role Status Dates Dr. Brandon Cantor MD Primary Care Provider Active Dr. Wisam Bella DO Emergency Provider Active Dr. Geovanna Parsons MD Admit Provider, Other Provide r Active Daja VERA PA-C Attending Provider Active Team Status: Inactive Member Role Status Dates Dr. Brandon Cantor MD Primary Care Provider Active Dr. Wisam Bella DO Emergency Provider Active Dr. Geovanna Parsons MD Admit Provider, Attending Pro vider Active Team Status: Inactive Member Role Status Dates Dr. Brandon Cantor MD Primary Care Provider, Refer ring Provider Active Surgery Nurse Attending Provider Active Team Status: Inactive Member Role Status Dates Dr. Brandon Cantor MD Primary Care Provider, Refer ring Provider Active Dr. Geovanna Parsons MD Attending Provider Active Barrel Rifler Button Relationship Specialty Start Date End Date Brandon Cantor MD [address] [place], [place] [address] PCP - General 05/04/09 Barrel Rifler Button Relationship Specialty Start Date End Date Brandon Cantor MD [address] [facility] [place] [address] PCP - General 05/04/09 Barrel Rifler Button Relationship Specialty Start Date End Date Brandon Cantor MD [address] [place] [address] PCP - General 05/04/09 Barrel Rifler Button Relationship Specialty Start Date End Date Brandon Cantor MD [address] [place] [address] PCP - General 05/04/09 Barrel Rifler Button Relationship Specialty Start Date End Date Brandon Cantor MD [address] [place] [address] PCP - General 05/04/09 Barrel Rifler Button Relationship Specialty Start Date End Date Brandon Cantor MD [address] [place] [address] PCP - General 05/04/09 Barrel Rifler Button Relationship Specialty Start Date End Date Brandon Cantor MD [address] [place] [address] PCP - General 05/04/09 Barrel Rifler Button Relationship Specialty Start Date End Date Brandon Cantor MD [address] [place] [address] PCP - General 05/04/09 Barrel Rifler Button Relationship Specialty Start Date End Date Brandon Cantor MD [address] [place] [address] PCP - General 05/04/09 Barrel Rifler Button Relationship Specialty Start Date End Date Brandon Cantor MD [address] [facility] [place] [address] PCP - General 05/04/09 Delicia Anton, 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 [address] [facility] [place] [address] Ms Sql Server Developer Internal Medicine 05/13/24 Barrel Rifler Button Relationship Specialty Start Date End Date Brandon Cantor MD [address] [place] [address] PCP - General 05/04/09 Delicia Anton, 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 [address] [facility] [place] [address] Ms Sql Server Developer Internal Medicine 05/13/24 Barrel Rifler Button Relationship Specialty Start Date End Date Brandon Cantor MD [address] [facility] [place] [address] PCP - General 05/04/09 Delicia Anton, 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 [address] [facility] [place] [address] Ms Sql Server Developer Internal Medicine 05/13/24 Barrel Rifler Button Relationship Specialty Start Date End Date Brandon Cantor MD [address] [facility] [place] [address] PCP - General 05/04/09 Delicia Anton, 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 [address] [place] [address] Ms Sql Server Developer Internal Medicine 05/13/24 Barrel Rifler Button Relationship Specialty Start Date End Date Brandon Cantor MD [address] [place], [place] [address] PCP - General 05/04/09 Delicia Anton, 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 [address] [place], [place] [address] Ms Sql Server Developer Internal Medicine 05/13/24 Barrel Rifler Button Relationship Specialty Start Date End Date Brandon Cantor MD [address] [place], [place] [address] PCP - General 05/04/09 Delicia Anton, 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 [address] [place] [address] Ms Sql Server Developer Internal Medicine 05/13/24 Barrel Rifler Button Relationship Specialty Start Date End Date Brandon Cantor MD [address] [place], [place] [address] PCP - General 05/04/09 Delicia Anton, 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 [address] [place], [place] [address] [facility] Internal Medicine 05/13/24 Team Status: Inactive Member Role Status Dates Dr. Brandon Cantor MD Primary Care Provider Active Start: June 17, 2024 End: June 17, 2024 Dr. Brandon Cantor MD Referring Provider Active Start: June 17, 2024 End: June 17, 2024 Dr. Emory Isabel DO Attending Provider Active Start: June 17, 2024 End: June 17, 2024 Team Status: Inactive Member Role Status Dates Dr. Brandon Cantor MD Primary Care Provider Active Start: June 17, 2024 End: June 17, 2024 Dr. Darryl Harding MD Attending Provider Active S tart: June 17, 2024 End: June 17, 2024 Team Status: Inactive Member Role Status Dates Dr. Brandon Cantor MD Primary Care Provider Active Start: August 05, 2024 End: August 05, 2024 Dr. Chris Pearson MD Attending Provider Active Start: August 05, 2024 End: August 05, 2024 Team Status: Inactive Member Role Status Dates Dr. Brandon Cantor MD Primary Care Provider Active Start: September 02, 2024 End: September 02, 2024 Angelica Allyn Attending Provider Active Start : September 02, 2024 End: September 02, 2024 Angelica Allyn Referring Provider Active Start : September 02, 2024 End: September 02, 2024 Team Status: Active Member Role Status Dates Dr. Brandon Cantor MD Primary Care Provider Active Team Status: Inactive Member Role Status Dates Dr. Brandon Cantor MD Primary Care Provider Active Start: September 10, 2024 End: September 10, 2024 Dr. Jose Armando Fierro DO Emergency Provider Active Start: September 10, 2024 End: September 10, 2024 Barrel Rifler Button Relationship Specialty Start Date End Date Brandon Cantor MD [address] [place], [place] [address] PCP - General 05/04/09 Delicia Anton, 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 [address] [place], [place] [address] [facility] Internal Medicine 05/13/24 Barrel Rifler Button Relationship Specialty Start Date End Date Brandon Cantor MD [address] [place], [place] [address] PCP - General 05/04/09 Delicia Anton, 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 [address] [place], [place] [address] [facility] Internal Medicine 05/13/24 Barrel Rifler Button Relationship Specialty Start Date End Date Brandon Cantor MD [address] [facility] [place], [place] [address] PCP - General 05/04/09 Delicia Anton, 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 [address] [facility] [place], [place] [address] Ms Sql Server Developer Internal Medicine 05/13/24 Barrel Rifler Button Relationship Specialty Start Date End Date Brandon Cantor MD [address] [place], [place] [address] PCP - General 05/04/09 Delicia Anton, 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 [address] [place], [place] [address] [facility] Internal Medicine 05/13/24 Barrel Rifler Button Relationship Specialty Start Date End Date Brandon Cantor MD [address] [place], [place] [address] PCP - General 05/04/09 Delicia Anton, 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 [address] [facility], [place] [id number] [employer] Internal Medicine 05/13/24 Barrel Rifler Button Relationship Specialty Start Date End Date Brandon Cantor MD [address] [place], [place] [id number] PCP - General 05/04/09 Delicia Anton, 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 [address] [place], [place] [id number] [facility] Internal Medicine 12/9/24 Goals (unrecognized section and content) Goals may be documented in a n alternate sectionGoals may be documented in an alternate sectionGoals may be documented in an alternate sectionGoals may be documented in an alternate sectionGoals may be documented in an alternate sectionGoals may be documented in an alternate sectionGoals may be documented in an alternate section FOR RECORDS PERTAINING TO PATIENTS WHO ARE OR HAVE BEEN ENROLLED IN A CHEMICAL DEPENDENCY/SUBSTANCEABUSE PROGRAM, SOME INFORMATION MAY BE OMITTED. This clinical summary was aggregated from multiple sources. Caution should be exercised in using it in the provision of clinical care. This summary normalizes information from multiple sources, and as a consequence, information in this document may materially change the coding, format and clinical context of patient data. In addition, data may be omitted in some cases. CLINICAL DECISIONS SHOULD BE BASED ON THE PRIMARY CLINICAL RECORDS. [facility] [employer] [facility] provides no warranty or guarantee of the accuracy or completeness of information in this document.
--- OUTSIDE RECORDS SUMMARY | 2025-01-13 05:24 | XMS RPT_ITS | CCD ---
Author Organization [facility] Care Team Providers Care Load Tester Name Role Phone William Jimenes MD Unavailable [...] Provider Dr. William Jimenes Attending Provider [phone] Mundo Bernardo Referring Provider Dr. Mundo Bernardo Emergency Provider Dr. Ewa Ordonez Admit Provider Dr. Ewa Ordonez Attending Provider Dr. Ewa Ordonez Other Provider Dr. Ruslan Franklin Other Provider [phone] Dr. Yisel Lanza Attending Provider Dr. Yisel Lanza Other Provider Dr. Brandon [...] Provider Devaughn, Dr. Taylor Referring Provider Jayson 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, 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-C Ninoska Hearn Attending Provider [phone] Devaughn, Dr. Taylor Primary Care Provider Devaughn, Dr. Taylor Referring Provider Dr. James Orbien Attending Provider [phone] Devaughn, Dr. Taylor [...] Provider Brandon Cantor MD Primary Care Provider [facility] 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, Delicia M Unavailable Dr. Brandon Cantor MD Primary Care Provider Dr. Brandon Cantor MD Referring Provider Dr. Emory Isabel DO Attending Provider Dr. Darryl Harding MD Attending Provider Dr. Chris Pearson MD Attending Provider Angelica St Attending Provider Angleica St Referring Provider Dr. Jose Armando Fierro [...] Primary Care Unavailable Cantor, Brandon Referring Unavailable Catnor, Brandon Primary Care Unavailable FriendJames Attending Unavailable [place], Angelica Referring Unavailable [place], Angelica Attending Unavailable Cantor, Brandon Primary Care [...] acid 4700 mg / polyethylene glycol 3350 145417 mg / potassium chloride 1015 mg / sodium ascorbate 5900 mg / sodium chloride 2690 mg / sodium sulfate 7500 mg powder for oral solution (4 sources) Osmotic Laxative, Vitamin C Start: 12-14-2023 take 1 mL by mouth once Mvn3215-Vmk Cya-Obhc-Bsg-Asb-C (Moviprep) 100-7.5-2.691 gram powder in packet Active 240 mL PO per package directions December 14, 2023 12:00am Start: 03-01-2022 Nrd0432-Rmk Polk v-Wzkg-Yud-Asb-C (Moviprep) 100-7.5-2.691 gram powder in packet Active [...] TBEC One tablet by mouth daily ASPIRIN [id number] Daja Monsivais PA-C atorvastatin 20 mg oral [...] mg tablet Indications: 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 Per [facility] PRN 05/10/2023 Active Comment on above: Apply to affected ar ea two times a week. Per [facility] lidocaine 0.05 mg/mg medicated patch (6 [...] as directed as needed for anxiety LORAZEPAM [id number] Daja Monsivais PA-C Comment on above: Take [...] One tablet by mouth daily PAROXETINE HCL 64299193756 Daja Monsivais PA-C Comment on above: Take [...] twice daily. Take 1 capsule by mo [facility] two times a day. tamsulosin hydrochloride 0.4 [...] One tablet by mouth daily AMLODIPINE BESYLATE 97384339987 Daja Monsivais PA-C Aspirin Childrens (20 sources) [...] movement. docusate sodium 50 mg / sennosides, alf 8.6 mg oral tablet (20 sources) Start: 01-16-2018 End: 01-22-2018 take 1 tablet by mouth twice daily Sennosides-Docusate Sodium (Stool Softener-Stimulant Laxat) 1 TABLET tablet Discontinued 2 {tbl} PO TWICE A DAY January 17, 2018 7:31pm January 22, 2018 9:33pm ergocalciferol 1.25 mg oral capsule (20 sources) Provitamin D2 Compound Start: 01-16-2018 End: 05-10-2018 Ergocalciferol (Vitamin D2) 50,000 UNIT capsule Discontinued 58691 U PO Q7D January 17, 2018 7:31pm May 10, 2018 11:28am through 03/03/18 folic acid 1 mg / vitamin b12 0.5 mg oral tablet (11 sources) Vitamin B12 Start: 01-31-2023 End: 08-18-2023 Vitamin Q61-Xdpwg Acid 0.5-1 mg tablet Discontinued 1 {tbl} PO DAILY January 31, 2023 12:00am August 18, 2023 2:57am Start: 01-31-2023 End: 08-18-2023 take 1 tablet by mouth once daily Vitamin D02-Cvupj Acid Discontinued 1 TABLET PO DAILY January [...] TABS One tablet by mouth daily MELOXICAM 34677974931 Daja Monsivais PA-C metoprolol tartrate 25 mg oral tablet (20 sources) beta-Adrenergic Luis Start: 10-05-2024 End: 11-15-2024 take 0.5 tablet by mouth twice daily metoprolol tartrate, short acting, (LOPRESSOR) 25 mg tablet Indications: 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 12-20-2024 CNOV Office Visit (ERIK ) ----- ROHAN OLIVIA JR. ([id number]) 1945 M Date Time Provider Department 12/20/24 [...] aspirin 81 (more content not included)... Normal [facility] CNOVon 12-13-2024 CNOV Office Visit (PODIWS ) ----- ROHAN OLIVIA JR. ([id number]) 1945 M Date Time Provider Department 12/13/24 [...] Objective: Patient presents to clinic ambulating in [facility] Vasc: DP and PT pulses [...] Debra Castrejon DPM Referring Provider: DEBRA CASTREJON [[id number]] Allergies As of Date: 12/13/2024 (No Known [...] area two times a week. Per [facility] PRN - tamsulosin (FLOMAX) 0.4 mg [...] 10/22/2015 Irr (more content not included)... Normal [facility] 11-18-2024 CNPN Telephone (JAYA) ----- ROHAN OLIVIA JR. ([id number]) 1945 M Date Time Provider Department 11/18/24 [...] area two times a week. Per [facility] PRN - tamsulosin (FLOMAX) 0.4 mg [...] [R07.89] 08/10/2020 09/14/2020 Coronary artery disease of gambell artery of emigdio*08/24/2020 Unsteady gait [R26.81] 02/15/2021 [...] Encounter Status:Closed by CHANDLER WARE on 11/26/24 [facility] 11-15-2024 CNOV Office Visit (INTMWS ) ----- ROHAN OLIVIA JR. ([id number]) 1945 M Date Time Provider Department 11/15/24 [...] 79 year old male. Recording using ambient [employer] software for draft documentation of the visit was discussed with the patient/authorized service center representative; all questions welcomed and answered. Patient/authorized service center representative agreed to proceed Bradycardia: - Heart rate today is 51 bpm; previously recorded as low as 36 bpm. - Recent Holter monitor placement; metoprolol dosage was reduced by half following results. - Scheduled to see appeals reviewer veteran Dr. Mortensen on April 28. 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 Per [facility] PRN tamsulosin (FLOMAX) 0.4 mg Take [...] were review (more content not included)... Normal [facility] CNOVon 10-18-2024 CNOV Office Visit (INTMWS ) ----- ROHAN OLIVIA JR. ([id number]) 1945 M Date Time Provider Department 10/18/24 3:00 PM BRANDON CANTOR INTMWS During your visit today, we recorded the following information about you: Pulse Blood pressure Weight Height 58/minute 122/54 86.1 kg 1.753 m Brandon Cantor MD 10/19/2024 8:58 AM Signed This note was created using [employer]. Subjective Rohan Olivia Jr. 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 Per [facility] PRN tamsulosin (FLOMAX) 0.4 mg Take [...] I49.8 Improved. 4. 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 Normal [facility] Basic metabolic 2000 panelon 09-27-2024 Anion gap [Moles/Vol] 9 mmol/L Normal 8-15 [facility] Comment on above: Order Comment: Speci men Type: BLOOD SPECIMENOrdering Facility: [facility] Address: [address] [place] [address] Performed By: #### 2 4321-2 ####[facility] LABCLIA [id number] [place] [address] [place] Calcium [Mass/Vol] 9.1 mg/dL Normal 8.5-10.2 [facility] Comment on above: Order Comment: Speci men Type: BLOOD SPECIMENOrdering Facility: [facility] Address: [address] [place] [address] Performed By: #### 2 4321-2 ####[facility] LABCLIA [id number] [place] [address] [place] Chloride [Moles/Vol] 107 mmol/L Normal 98-107 [facility] Comment on above: Order Comment: Speci men Type: BLOOD SPECIMENOrdering Facility: [facility] Address: [address] [place], [place] [id number] Performed By: #### 2 4321-2 ####[facility] LABCLIA [id number] [place] [id number] [place] CO2 [Moles/Vol] 26 mmol/L Normal 22-30 [facility] Comment on above: Order Comment: Speci men Type: BLOOD SPECIMENOrdering Facility: [facility] Address: [address] [place] [address] Performed By: #### 2 4321-2 ####[facility] LABCLIA [id number] [place] [address] [place] Creatinine [Mass/Vol] 1.23 mg/dL High 0.73-1.22 [facility] Comment on above: Order Comment: Speci men Type: BLOOD SPECIMENOrdering Facility: [facility] Address: [address] [place] [address] Performed By: #### 2 4321-2 ####[facility] LABIA [id number] [place] [address] [place] Creatinine and Glomerular filtration rate.predicted panel (S/P/Bld) 60 mL/min/1.73m??? Normal >=60 [facility] Comment on above: Order Comment: Speci men Type: BLOOD SPECIMENOrdering Facility: [facility] Address: [address] [place] [address] Result Comment: Antonina mated Glomerular Filtration Rate [...] actual GFR. Performed By: #### 2 4321-2 ####[facility] LABCLIA [id number] [place] [id number] [place] Glucose [Mass/Vol] 91 mg/dL Normal 74-99 [facility] Comment on above: Order Comment: Speci men Type: BLOOD SPECIMENOrdering Facility: [facility] Address: [address] [place] [address] Result Comment: The [place] Diabetes Association (ADA) provides guidance for cutoff [...] Standards of Medical Care in Diabetes 2016, [place] Diabetes Association. Diabetes Care. 2016.39(Suppl 1). Performed By: #### 2 4321-2 ####[facility] LABCLIA [id number] [place] [address] [place] Potassium [Moles/Vol] 4.7 mmol/L Normal 3.7-5.1 [facility] Comment on above: Order Comment: Speci men Type: BLOOD SPECIMENOrdering Facility: [facility] Address: [address] [place] [address] Performed By: #### 2 4321-2 ####[facility] LABCLIA [id number] [place] [id number] [place] Sodium [Moles/Vol] 142 mmol/L Normal 136-144 [facility] Comment on above: Order Comment: Speci men Type: BLOOD SPECIMENOrdering Facility: [facility] Address: [address] [place], [place] [address] Performed By: #### 2 4321-2 ####[facility] LABCLIA [id number] [place] [id number] [place] Urea nitrogen [Mass/Vol] 16 mg/dL Normal 9-24 [facility] Comment on above: Order Comment: Speci men Type: BLOOD SPECIMENOrdering Facility: [facility] Address: [address] [place] [address] Performed By: #### 2 4321-2 ####[facility] LABCLIA [id number] [place] [address] [place] XR CHEST 2V [...] tissues: Unremarkable. IMPRESSION: No acute radiographic abnormality. Steam Station Supervisor: CESAR Transcribe Date/Time: Sep 27 2024 2:47P Dictated by : ALVARO FOWLER MD This examination was interpreted and the report reviewed and electronically signed by: ALVARO FOWLER MD on Sep 27 2024 2:49PM EST [id number] Normal [facility] CNPNon 09-20-2024 CNPN Telephone (INTMWS) ----- ROHAN OLIVIA JR. ([id number]) 1945 M Date Time Provider Department 09/20/24 [...] area two times a week. Per [facility] PRN - tamsulosin (FLOMAX) 0.4 mg [...] [R07.89] 08/10/2020 09/14/2020 Coronary artery disease of gambell artery of emigdio*08/24/2020 Unsteady gait [R26.81] 02/15/2021 [...] Encounter Status:Closed by KATELIN CHEW on 09/23/24 [facility] 09-12-2024 CNOV Office Visit (INTMWS ) ----- CORWIN,ROHAN W JR. ([id number]) 1945 M Date Time Provider Department 09/12/24 2:20 PM BRANDON CANTOR INTMWS During your visit today, we recorded the following information about you: Temperature Pulse Blood pressure Weight 98.5 degrees 48/minute 87/49 84.8 kg Brandon Cantor MD 09/13/2024 8:50 AM Signed This note was created using [employer]. 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 Per [facility] PRN tamsulosin (FLOMAX) 0.4 mg Take [...] no abdomi (more content not included)... [facility] ROHAN OLIVIA JR. ([id number]) 1945 M Date Time Provider Department 09/12/24 [...] Objective: Patient presents to clinic ambulating in [facility] Vasc: DP and PT pulses [...] Debra Castrejon DPM Referring Provider: DEBRA CASTREJON [[id number]] Allergies As of Date: 09/12/2024 (No Known [...] area two times a week. Per [facility] PRN - tamsulosin (FLOMAX) 0.4 mg [...] 07/22/2015 Enterocoliti (more content not included)... Normal [facility] LEM90bs 09-12-2024 ECG01 Ventricular Rate : 4 6 BPM Atrial Rate : 46 BPM P-R Interval : 194 ms QRS Duration : 92 ms Q-T Interval : 484 ms QTC Calculation(Bazett) : 423 ms Calculated P Empire : 23 degrees Calculated R Empire : -10 degrees Calculated T Empire : 16 degrees SINUS BRADYCARDIA OTHERWISE NORMAL ECG Confirmed by MD MORIN QARAB ([id number]) on 09/13/2024 2:14:25 PM NAME : PRICILA OLIVIAAN PID : [id number] : 1945 Gender : Male Race : ORD : Procedure Date : Sep 12 2024 15:29:47 Edit Date : Sep 13 2024 14:14:30 Diagnosis: SINUS BRADYCARDIA OTHERWISE NORMAL ECG Confirmed by MD MORIN QARAB ([id number]) on 09/13/2024 2:14:25 PM Test Reason : Location : [facility] : [facility] Overread By : MD MORIN QARAB Edited By : MD MORIN QARAB Referred By : DEBRA CASTREJON Acquired by : Hernesto alberto [facility] 12 Lead EKGon 09-10-2024 12 Lead EKG [facility] [address] [place] [address] 12 Lead EKG 09/10/24 1515 MR#: [id number] Acct: [id number] Name: ROHAN OLIVIA Lyle Rep #: [id number] : 1945 79 From: Darryl Harding MD [...] normal ECG Confirmed by DARRYL HARDING MD ([id number]), senior technical editor DAJA MENDOZA ([id number]) on 09/12/2024 8:30:01 AM Referred By: Confirmed By: DARRYL HARDING MD 09/12/24829 Date Darryl Harding MD CC: Dr. Jose Armando Fierro DO; Dr. Brandon Cantor MD Signed Normal [facility] Absolute neutrophil countOrd ered By: Jose Armando Fierro on 09-10-2024 Neutrophils (Bld) [#/Vol] 4.0 10*3/uL 2.0-7.7 [facility] Anion gap in Serum or Plasma Ordered By: Jose Armando Fierro on 09-10-2024 Anion gap [Moles/Vol] 9 mmol/L 10-17 [facility] BUN/creatinine ratioOrdered By: Jose Armando Fierro on 09-10-2024 Urea nitrogen/Creatinine [Mass ratio] 13.8 mg/mg - [facility] Basic Metabolic Profile (BMP )on 09-10-2024 BUN/CRE 13.8 RATIO Normal 03-24 [facility] Comment on above: Performed By: #### L 501.5200, L500.2500, L100.0100, L501.4021 ####[facility] [address] [place], [address] Calcium [Mass/Vol] 9.4 mg/dL Normal 7.6-11.0 [facility] Comment on above: Performed By: #### L 501.5200, L500.2500, L100.0100, L501.4021 ####[facility] [address] [place], [address] Chloride [Moles/Vol] 105 mmol/L Normal 98-108 [facility] Comment on above: Performed By: #### L 501.5200, L500.2500, L100.0100, L501.4021 ####[facility] [address] [place], [address] CO2 [Moles/Vol] 25.6 mmol/L Normal 21.0-32.0 [facility] Comment on above: Performed By: #### L 501.5200, L500.2500, L100.0100, L501.4021 ####[facility] [address] [place], [address] Creatinine [Mass/Vol] 1.56 mg/dL High 0.70-1.20 [facility] Comment on above: Performed By: #### L 501.5200, L500.2500, L100.0100, L501.4021 ####[facility] [address] [place], [address] ECRCL 39.65 ml/min Low 50-250 [facility] Comment on above: Performed By: #### L 501.5200, L500.2500, L100.0100, L501.4021 ####[facility] [address] [place], [address] GAP 9 Normal 5-15 [facility] Comment on above: Performed By: #### L 501.5200, L500.2500, L100.0100, L501.4021 ####[facility] [address] [place], [address] GFR/1.73 sq M.predicted among non-blacks MDRD (S/P/Bld) [Vol rate/Area] 45 mL/min/{1.73_m2} Low >60 [facility] Comment on above: Result Comment: mL/m in/1.73m2 CKD-EPI Creatinine Equation (2020) Performed By: #### L 501.5200, L500.2500, L100.0100, L501.4021 ####[facility] [address] [place], [address] Glucose [Mass/Vol] 105 mg/dL High 70-99 [facility] Comment on above: Performed By: #### L 501.5200, L500.2500, L100.0100, L501.4021 ####[facility] [address] [place], [address] Potassium [Moles/Vol] 4.6 mmol/L Normal 3.3-5.1 [facility] Comment on above: Performed By: #### L 501.5200, L500.2500, L100.0100, L501.4021 ####[facility] [address] [place], [address] Sodium [Moles/Vol] 140 mmol/L Normal 133-145 [facility] Comment on above: Performed By: #### L 501.5200, L500.2500, L100.0100, L501.4021 ####[facility] [address] [place], [address] Urea nitrogen [Mass/Vol] 22 mg/dL High 4-19 [facility] Comment on above: Performed By: #### L 501.5200, L500.2500, L100.0100, L501.4021 ####[facility] [address] [place], [address] Basophil percentageOrdered B y: Jose Armando Fierro on 09-10-2024 Basophils/100 WBC (Bld) 0.8 % 0-1 [facility] CBC W/Diff, Automatedon 04-0 PLT EST SLT DEC Normal ADEQ [facility] Comment on above: Performed By: #### L 501.5200, L500.2500, L100.0100, L501.4021 ####[facility] [address] [place], [address] SMEAR COMMENT SCANNED Normal [facility] Comment on above: Performed By: #### L 501.5200, L500.2500, L100.0100, L501.4021 ####[facility] [address] [place], [address] CNPNon 09-10-2024 CNPN Telephone (INTMWS) ----- ROHAN OLIVIA JR. ([id number]) 1945 M Date Time Provider Department 09/10/24 [...] area two times a week. Per [facility] PRN - tamsulosin (FLOMAX) 0.4 mg [...] [R07.89] 08/10/2020 09/14/2020 Coronary artery disease of gambell artery of emigdio*08/24/2020 Unsteady gait [R26.81] 02/15/2021 [...] Status:Closed by BRANDON CANTOR on 09/11/24 Normal [facility] Carbon dioxide, total [Moles /volume] in Central venous bloodOrdered By: Jose Armando Fierro on 09-10-2024 CO2 [Moles/Vol] 25.6 mmol/L 21.0-32.0 [facility] Chest 1 View (Portable)on Chest 1 View (Portable) [facility] Imaging Services [address] [place] [address] Chest 1 View (Portable) MR#: [id number] Acct: [id number] Name: ROHAN OLIVIA Rep #: [id number] : 1945 M 79 From: Delvin Post i DO PCP: Dr. Brandon Cantor MD Status: PRE ER Study: Chest 1 View (Portable) Date of Exam: 09/10/24 Exam# [id number] Ordering Dr: Jose Armando Fierro DO PROCEDURE: [...] radiologic follow-up to document resolution. Reading Location: [facility] CC: Dr. Jose Armando Fierro DO; Dr. Brandon Cantor MD Steam Station Supervisor: Signed Normal [facility] Chloride assayOrdered By: Amos Fierro on 09-10-2024 Chloride [Moles/Vol] 105 mmol/L 98-108 [facility] Emergency Department Summary on 09-10-2024 Emergency Department Summary [facility] Medical Records Department [address] [place] [address] Emergency Department Summary 09/10/24 MR#: [id number] Acct: [id number] Name: ROHAN OLIVIA Rep #: [id number] : 1945 79 From: Jose Armando Fierro [...] not require any intervention. He sees cardiology [facility]. He denies any new medication. He does not associate the pain with his symptoms. He denies nausea or sweating recently but does note that he has occasionally been sweating during the events, past. He denies any palpitations. [facility] Medical History Urinary retention Chronic cough [...] PO DAILY THYROID #30 tabs 02/2604/08/24 Rx [id number] 100 gram-sod sulf 7.5 240 ml PO PER PKG DIR #1 ea 04/08/24 Rx pkom-XwWc-LOl-ascorbate-C oral pwdr pack (MoviPrep) aspirin 81 mg [...] stoma reversal (more content not included)... Normal [facility] Eosinophil percentageOrdered By: Jose Armando Fierro on 09-10-2024 Eosinophils/100 WBC (Bld) 2.3 % 0-5 [facility] Erythrocyte distribution wid th (RBC) [Ratio]Ordered By: Jose Armando Fierro on 09-10-2024 Erythrocyte distribution width (RBC) [Entitic vol] 48.7 fL High 35.1-43.9 [facility] Erythrocyte distribution wid th ratioOrdered By: Jose Armando Fierro on 09-10-2024 Erythrocyte distribution width (RBC) [Ratio] 14.2 % 11.6-14.6 [facility] Estimation of creatinine davey aranceOrdered By: Jose Armando Fierro on 09-10-2024 Estimated Creatinine Clearance Calc 39.65 ml/min Low 50-250 [facility] GFR/1.73 sq M.predicted stephen g non-blacks MDRD (S/P/Bld) [Vol rate/Area]Ordered By: Jose Armando Fierro on 09-10-2024 Estimated GFR (MDRD) Non-Af Amer 45 Low >60 [facility] Comment on above: mL/min/1.73m2 CKD-EP I Creatinine Equation (2020) Hematocrit Auto (Bld) [Volum e fraction]Ordered By: Jose Armando Fierro on 09-10-2024 Hematocrit (Bld) [Volume fraction] 46.7 % 40-54 [facility] Hemoglobin measurementOrdere d By: Jose Armando Fierro on 09-10-2024 Hemoglobin (Bld) [Mass/Vol] 15.9 g/dL 13.0-16.5 [facility] Immature granulocytes/100 WB C Auto (Bld)Ordered By: Jose Armando Fierro on 09-10-2024 Immature granulocytes/100 WBC (Bld) 0.400 % 0.0-0.9 [facility] Comment on above: IG% - Immature Granu locytes (promyelocytes, myelocytes and metamyelocytes) > 1% indicates that a LEFT SHIFT is Present. L499.0042on 09-10-2024 Trop T High Sen 17 ng/L Normal <=22 [facility] Comment on above: Performed By: #### L 499.0042 #### [facility] [address] [place], [address] L501.4021on 09-10-2024 Trop T High Sen 23 ng/L High <=22 [facility] Comment on above: Performed By: #### L 501.5200, L500.2500, L100.0100, L501.4021 ####[facility] [facility] [id number] [place], [address] Lymphocytes Auto (Unsp spec) [#/Vol]Ordered By: Jose Armando Fierro on 09-10-2024 Lymphocytes (Bld) [#/Vol] 0.58 10*3/uL Low 0.83-4.51 [facility] Lymphocytes/100 WBC Auto (Un sp spec)Ordered By: Jose Armando Fierro on 09-10-2024 Lymphocytes/100 WBC (Bld) 11.0 % Low 19-41 [facility] MCV (mean corpuscular volume ) determinationOrdered By: Jose Armando Fierro on 09-10-2024 MCV (RBC) [Entitic vol] 92.7 fL 80-94 [facility] Magnesiumon 09-10-2024 Magnesium [Mass/Vol] 2.0 mg/dL Normal 1.5-2.2 [facility] Comment on above: Performed By: #### L 501.5200, L500.2500, L100.0100, L501.4021 ####[facility] [id number] [place], [address] Magnesium (Unsp spec) [Mass/ Vol]Ordered By: Jose Armando Fierro on 09-10-2024 Magnesium [Mass/Vol] 2.0 mg/dL 1.5-2.2 [facility] Manual differential comment Juan Ramon (Bld) [Interp]Ordered By: Jose Armando Fierro on 09-10-2024 Differential Comment SCANNED [facility] Mean corpuscular hemoglobin (MCH) determinationOrdered By: Jose Armando Fierro on 09-10-2024 MCH (RBC) [Entitic mass] 31.5 pg 27.0-32.0 [facility] Mean corpuscular hemoglobin concentration (MCHC) determinationOrdered By: Jose Armando Fierro on 09-10-2024 MCHC (RBC) [Mass/Vol] 34.0 g/dL 32-36 [facility] Mean platelet volume determi nationOrdered By: Jose Armando Fierro on 09-10-2024 Platelet mean volume (Bld) [Entitic vol] 11.3 fL 6.2-12.0 [facility] Monocyte percentageOrdered B y: Jose Armando Fierro on 09-10-2024 Monocytes/100 WBC (Bld) 9.8 % 0-10 [facility] Neutrophil percentageOrdered By: Jose Armando Fierro on 09-10-2024 Neutrophils/100 WBC (Bld) 75.7 % High 47-70 [facility] Nucleated red blood cell per centageOrdered By: Jose Armando Fierro on 09-10-2024 Nucleated RBC/100 WBC (Bld) [Ratio] 0 % 0-5 [facility] Platelet countOrdered By: Amos Fierro on 09-10-2024 Platelets (Bld) [#/Vol] 126 10*3/uL Low 150-450 [facility] Platelets LM Ql (Bld)Ordered By: Jose Armando Fierro on 09-10-2024 Platelet Estimate SLT DEC ADEQ [facility] Potassium (Unsp spec) [Mass/ Vol]Ordered By: Jose Armando Fierro on 09-10-2024 Potassium [Moles/Vol] 4.6 mmol/L 3.3-5.1 [facility] RBC Auto (Bld) [#/Vol]Ordere d By: Jose Armando Fierro on 09-10-2024 RBC (Bld) [#/Vol] 5.04 10*6/uL 4.6-6.2 [facility] Serum creatinine measurement (mass/volume)Ordered By: Jose Armando Fierro on 09-10-2024 Creatinine [Mass/Vol] 1.56 mg/dL High 0.70-1.20 [facility] Serum glucose measurement (m ass/volume)Ordered By: Jose Armando Fierro on 09-10-2024 Glucose [Mass/Vol] 105 mg/dL High 70-99 [facility] Serum or plasma calcium mey urement (mass/volume)Ordered By: Jose Armando Fierro on 09-10-2024 Calcium [Mass/Vol] 9.4 mg/dL 7.6-11.0 [facility] Serum or plasma urea nitroge n measurement (mass/volume)Ordered By: Jose Armando Fierro on 09-10-2024 Urea nitrogen [Mass/Vol] 22 mg/dL High 4-19 [facility] Sodium levelOrdered By: Kavon Fierro on 09-10-2024 Sodium [Moles/Vol] 140 mmol/L 133-145 [facility] Troponin T.cardiac High sens itivity method [Mass/Vol]Ordered By: Jose Armando Fierro on 09-10-2024 Troponin T High Sensitivity 2 Hour 17 ng/L <22 [facility] Troponin T High Sensitivity 23 ng/L High <22 [facility] White blood cell (WBC) count Ordered By: Jose Armando Fierro on 09-10-2024 WBC (Bld) [#/Vol] 5.3 10*3/uL 4.4-11.0 [facility] PSA, total screeningOrdered By: Angelica St on 09-02-2024 Prostate Specific Antigen Screen 2.75 ng/mL 0.02-4.00 [facility] Comment on above: This test was perfor [...] 09-02-2024 PSA,TOT SCREEN 2.75 ng/mL Normal 0.02-4.00 [facility] Comment on above: Result Comment: This test [...] values. Performed By: #### L 501.9910 #### [facility] [address] [place], [address] CNOVon 08-16-2024 CNOV Office Visit (NEMDIANN ) ----- ROHAN OLIVIA JR. ([id number]) 1945 M Date Time Provider Department 08/16/24 [...] 25 m (more content not included)... Normal [facility] PT D/C Summary (1)on 025 PT D/C Summary (1) [facility] [address] [place] [address]. [address] [place] [address] / REHABILITATION SERVICES DISCHARGE SUMMARY MR#: [id number] Acct: [id number] Name: ROHAN OLIVIA Rep #: [id number] : 1945 79 From: Jo Ann Aranda MPT Referring Dr.: Dr. Chris Pearson MD Status: RE G RCR Insurance: [facility] Discharge Summary D/C summary: [...] please feel free to call me at [phone]. Thank you for the referral of this patient. Sincerely, LENA Pierce Balance/Gait/Functional tests Balance/Special Test Scores Functional Gait Assessment Score: 11 % Disability: 63.3400 Lower Extremity Functional Score: 35 Improvement % Improvement: 50 08/05/24 1351 CC: Dr. Brandon Cantor MD; Dr. Chris Pearson MD Signed Normal [facility] Inital Evaluation (1) - PTon 06-19-2024 Inital Evaluation (1) - PT [facility]. [address] [place] [id number] / REHABILITATION SERVICES INITIAL EVALUATION MR#: [id number] Acct: [id number] Name: ROHAN OLIVIA Rep #: [id number] : 1945 79 From: Jo Ann PAREDES Referring Dr.: Dr. Chris Pearson MD [facility] [employer] [facility] SELF [...] perform tasks, (more content not included)... Normal [facility] HIP, UNI W/ Pelvis 2-3 Views on 06-17-2024 HIP, UNI W/ Pelvis 2-3 Views [facility] [address] [place] [address] HIP, UNI W/ Pelvis 2-3 Views MR#: [id number] Acct: [id number] Name: ROHAN OLIVIA Rep #: [id number] : 1945 M 79 From: Wendy Vail MD PCP: Dr. Brandon Cantor MD Status: DEP AMB Study: HIP, UNI W/ Pelvis 2-3 Views Date of Exam: Exam# [id number] Ordering Dr: Emory Isabel DO [id number] INDICATION: pain EXAMINATION/TECHNIQUE: X-RAY - XR Hip [...] Emory Isabel DO; Dr. Brandon Cantor MD [employer] Supervisor: Signed Normal [facility] Lumbar Spine 2 or 3 Viewson 06-17-2024 Lumbar Spine 2 or 3 Views [facility] [address] [place] [address] Lumbar Spine 2 or 3 Views MR#: [id number] Acct: [id number] Name: ROHAN OLIVIA Rep #: [id number] : 1945 M 79 From: Wendy Vail MD PCP: Dr. Brandon Cantor MD Status: DEP AMB Study: Lumbar Spine 2 or 3 Views Date of Exam: Exam# [id number] Ordering Dr: Emory sIabel DO [id number] INDICATION: pain EXAMINATION/TECHNIQUE: X-RAY - XR Spine [...] Emory Isabel DO; Dr. Brandon Cantor MD [place] Supervisor: Signed Normal [facility] Orthopedic Visit Reporton Orthopedic Visit Report [facility] [address] [place] [address] [address] [place] [address] OFFICE VISIT Date of Service: 06/17/24 MR#: [id number] Acct: [id number] Name: ROHAN OLIVIA Rep #: [id number] : 1945 Provider: Dr. Emory carcamo DO Age/Sex: 79/M [place] [facility] [place]: Signed Intake Vital Signs 05/06/24 13:41 [...] #348.6 grams 12/14/23 06/17/24 Rx oral powder [id number] 100 gram-sod sulf 7.5 240 ml PO PER PKG DIR #1 ea 12/14/23 06/17/24 Rx kwql-BmMu-GGu-ascorbate-C oral pwdr pack (MoviPrep) aspirin 81 mg [...] He had his right hip replaced by [facility]. He states that he has been [...] does ambulate (more content not included)... Normal [facility] CNOVon 06-14-2024 CNOV Office Visit (PODIWS ) ----- ROHAN OLIVIA JR. ([id number]) 1945 M Date Time Provider Department 06/14/24 [...] Objective: Patient presents to clinic ambulating in [facility] Vasc: DP and PT pulses [...] Debra Castrejon DPM Referring Provider: DEBRA CASTREJON [[id number]] Allergies As of Date: 06/14/2024 (No Known [...] 10/22/2015 Irritabl (more content not included)... [facility] Tele[facility] (SLEW[facility]) ----- CORWINROHAN Alvarenga ([id number]) 1945 M Date Time Provider Department 06/06/24 [...] [R07.89] 08/10/2020 09/14/2020 Coronary artery disease of [place] artery of emigdio*08/24/2020 Unsteady gait [R26.81] 02/15/2021 [...] Status:Closed by JYOTI DOUGHERTY on 06/06/24 Normal [facility] CBC panel Auto (Bld)on 05-18 Erythrocyte distribution width (RBC) [Ratio] 14.0 % Normal 11.5-15.0 [facility] Comment on above: Order Comment: Speci men Type: BLOOD SPECIMENOrdering Facility: [facility] Address: [address] [place] [address] Performed By: #### 5 8410-2 ####[facility] LABCLIA [id number] [place] [address] [place] Hematocrit (Bld) [Volume fraction] 49.4 % Normal 39.0-51.0 [facility] Comment on above: Order Comment: Speci men Type: BLOOD SPECIMENOrdering Facility: [facility] Address: [address] [place] [address] Performed By: #### 5 8410-2 ####[facility] LABCLIA [id number] [place] [address] [place] Hemoglobin (Bld) [Mass/Vol] 16.4 g/dL Normal 13.0-17.0 [facility] Comment on above: Order Comment: Speci men Type: BLOOD SPECIMENOrdering Facility: [facility] Address: [address] [place] [address] Performed By: #### 5 8410-2 ####[facility] LABCLIA [id number] [place] [address] [place] MCH (RBC) [Entitic mass] 31.2 pg Normal 26.0-34.0 [facility] Comment on above: Order Comment: Speci men Type: BLOOD SPECIMENOrdering Facility: [facility] Address: [address] [place] [address] Performed By: #### 5 8410-2 ####[facility] LABCLIA [id number] [place] [address] [place] MCHC (RBC) [Mass/Vol] 33.2 g/dL Normal 30.5-36.0 [facility] Comment on above: Order Comment: Speci men Type: BLOOD SPECIMENOrdering Facility: [facility] Address: [address] [place] [address] Performed By: #### 5 8410-2 ####[facility] LABCLIA [id number] [place] [address] [place] MCV (RBC) [Entitic vol] 93.9 fL Normal 80.0-100.0 [facility] Comment on above: Order Comment: Speci men Type: BLOOD SPECIMENOrdering Facility: [facility] Address: [address] [place] [address] Performed By: #### 5 8410-2 ####[facility] LABCLIA [id number] [place] [address] [place] Nucleated RBC (Bld) [#/Vol] 10*3/uL Normal <0.01 [facility] Comment on above: Order Comment: Speci men Type: BLOOD SPECIMENOrdering Facility: [facility] Address: [address] [place] [address] Performed By: #### 5 8410-2 ####[facility] LABIA [id number] [place] [address] [place] Platelet mean volume (Bld) [Entitic vol] 12.1 fL Normal 9.0-12.7 [facility] Comment on above: Order Comment: Speci men Type: BLOOD SPECIMENOrdering Facility: [facility] Address: [address] [place] [address] Performed By: #### 5 8410-2 ####[facility] LABCLIA [id number] [place] [address] [place] Platelets (Bld) [#/Vol] 92 10*3/uL Low 150-400 [facility] Comment on above: Order Comment: Speci men Type: BLOOD SPECIMENOrdering Facility: [facility] Address: [address] [place] [address] Result Comment: No c lot detected. Performed By: #### 5 8410-2 ####[facility] LABCLIA [id number] [place] [address] [place] RBC (Bld) [#/Vol] 5.26 10*6/uL Normal 4.20-6.00 [facility] Comment on above: Order Comment: Speci men Type: BLOOD SPECIMENOrdering Facility: [facility] Address: [address] [place] [address] Performed By: #### 5 8410-2 ####[facility] LABCLIA [id number] [place] [address] [place] WBC (Bld) [#/Vol] 6.26 10*3/uL Normal 3.70-11.00 [facility] Comment on above: Order Comment: Speci men Type: BLOOD SPECIMENOrdering Facility: [facility] Address: [address] [place] [address] Performed By: #### 5 8410-2 ####[facility] LABCLIA [id number] [place] [address] [place] Comprehensive metabolic 2000 panelon 05-18-2024 Albumin [Mass/Vol] 4.1 g/dL Normal 3.9-4.9 [facility] Comment on above: Order Comment: Speci men Type: BLOOD SPECIMENOrdering Facility: [facility] Address: [address] [place] [address] Performed By: #### 3 016-3, 77900-7, 3024-7, 05016-5 ####[facility] LABCLIA [id number] [place] [address] [place] ALP [Catalytic activity/Vol] 105 U/L Normal 38-113 [facility] Comment on above: Order Comment: Speci men Type: BLOOD SPECIMENOrdering Facility: [facility] Address: [address] [place] [address] Performed By: #### 3 016-3, 51651-2, 3023-12, ####[facility] LABCLIA [id number] [place] [address] [place] ALT [Catalytic activity/Vol] 6 U/L Low 10-54 [facility] Comment on above: Order Comment: Speci men Type: BLOOD SPECIMENOrdering Facility: [facility] Address: [address] [place] [address] Performed By: #### 3 016-3, 32521-4, 7, ####[facility] LABCLIA [id number] [place] [address] [place] Anion gap [Moles/Vol] 11 mmol/L Normal 8-15 [facility] Comment on above: Order Comment: Speci men Type: BLOOD SPECIMENOrdering Facility: [facility] Address: [address] [place] [address] Performed By: #### 3 016-3, 86771-8, 3023-12, ####[facility] LABCLIA [id number] [place] [address] [place] AST [Catalytic activity/Vol] 16 U/L Normal 14-40 [facility] Comment on above: Order Comment: Speci men Type: BLOOD SPECIMENOrdering Facility: [facility] Address: [address] [place] [address] Performed By: #### 3 016-3, 21849-6, 7, ####[facility] LABCLIA [id number] [place] [address] [place] Bilirubin [Mass/Vol] 1.0 mg/dL Normal 0.2-1.3 [facility] Comment on above: Order Comment: Speci men Type: BLOOD SPECIMENOrdering Facility: [facility] Address: [address] [place] [address] Performed By: #### 3 016-3, 07641-8, 3023-12, 59033-8 ####[facility] LABCLIA [id number] [address] [address] [place] Calcium [Mass/Vol] 9.5 mg/dL Normal 8.5-10.2 [facility] Comment on above: Order Comment: Speci men Type: BLOOD SPECIMENOrdering Facility: [facility] Address: [address] [place] [address] Performed By: #### 3 016-3, 07632-5, 3023-12, ####[facility] LABCLIA [id number] [place] [address] [place] Chloride [Moles/Vol] 104 mmol/L Normal 98-107 [facility] Comment on above: Order Comment: Speci men Type: BLOOD SPECIMENOrdering Facility: [facility] Address: [address] [place] [address] Performed By: #### 3 016-3, 14036-7, 3023-12, ####[facility] LABIA [id number] [place] [address] [place] CO2 [Moles/Vol] 25 mmol/L Normal 22-30 [facility] Comment on above: Order Comment: Speci men Type: BLOOD SPECIMENOrdering Facility: [facility] Address: [address] [place] [address] Performed By: #### 3 016-3, 39260-4, 7, ####[facility] LABCLIA [id number] [place] [id number] [place] Creatinine [Mass/Vol] 1.33 mg/dL High 0.73-1.22 [facility] Comment on above: Order Comment: Speci men Type: BLOOD SPECIMENOrdering Facility: [facility] Address: [address] [place] [address] Performed By: #### 3 016-3, 34051-4, 3024-7, 22703-5 ####[facility] LABCLIA [id number] [place] [address] [place] Creatinine and Glomerular filtration rate.predicted panel (S/P/Bld) 55 mL/min/1.73m??? Low >=60 [facility] Comment on above: Order Comment: Ortiz garrett Type: BLOOD SPECIMENOrdering Facility: [facility] Address: [address] [place] [address] Result Comment: Antonina mated Glomerular Filtration Rate [...] actual GFR. Performed By: #### 3 016-3, 73215-4, 3024-7, 31682-9 ####[facility] LABCLIA [id number] [place] [address] [place] Glucose [Mass/Vol] 88 mg/dL Normal 74-99 [facility] Comment on above: Order Comment: Ortiz garrett Type: BLOOD SPECIMENOrdering Facility: [facility] Address: [address] [place] [address] Result Comment: The [place] Diabetes Association (ADA) provides guidance for cutoff [...] Standards of Medical Care in Diabetes 2016, [place] [employer]. Diabetes Care. 2016.39(Suppl 1). Performed By: #### 3 016-3, 94216-6, 7, ####[facility] LABCLIA [id number] [address] [address] [place] Potassium [Moles/Vol] 4.2 mmol/L Normal 3.7-5.1 [facility] Comment on above: Order Comment: Speci men Type: BLOOD SPECIMENOrdering Facility: [facility] Address: [address] [place] [address] Performed By: #### 3 016-3, 36118-2, 3023-12, ####[facility] LABCLIA [id number] [place] [address] [place] Protein [Mass/Vol] 6.6 g/dL Normal 6.3-8.0 [facility] Comment on above: Order Comment: Speci men Type: BLOOD SPECIMENOrdering Facility: [facility] Address: [address] [place] [address] Performed By: #### 3 016-3, 42412-8, 3023-12, ####[facility] LABIA [id number] [place] [address] [place] Sodium [Moles/Vol] 140 mmol/L Normal 136-144 [facility] Comment on above: Order Comment: Speci men Type: BLOOD SPECIMENOrdering Facility: [facility] Address: [address] [place] [address] Performed By: #### 3 016-3, 77439-6, 3023-12, ####[facility] LABCLIA [id number] [place] [id number] [place] Urea nitrogen [Mass/Vol] 18 mg/dL Normal 9-24 [facility] Comment on above: Order Comment: Speci men Type: BLOOD SPECIMENOrdering Facility: [facility] Address: [address] [place] [address] Performed By: #### 3 016-3, 20650-3, 7, ####[facility] LABCLIA [id number] [address] [address] [place] Lipid 1996 panelon 4 Cholesterol [Mass/Vol] 105 mg/dL Normal <200 [facility] Comment on above: Order Comment: Speci men Type: BLOOD SPECIMENOrdering Facility: [facility] Address: [address] [place] [address] Result Comment: <200 mg/dL, Desirable 200-239 mg/dL, Borderline high >239 mg/dL, High Performed By: #### 3 016-3, 74473-9, 7, ####[facility] LABCLIA [id number] [address] [place] Cholesterol in HDL [Mass/Vol] 45 mg/dL Normal >39 [facility] Comment on above: Order Comment: Speci men Type: BLOOD SPECIMENOrdering Facility: [facility] Address: [address] [place] [address] Result Comment: 40-5 9 mg/dL, Acceptable >59 mg/dL, High: Negative risk factor for coronary heart disease <40 mg/dL, Low: Positive risk factor for coronary heart disease Performed By: #### 3 016-3, 56202-7, 7, ####[facility] LABCLIA [id number] [address] [place] Cholesterol in LDL [Mass/Vol] 47 mg/dL Normal <100 [facility] Comment on above: Order Comment: Speci men Type: BLOOD SPECIMENOrdering Facility: [facility] Address: [address] [place] [address] Result Comment: <100 mg/dL, Optimal 100-129 mg/dL, Near optimal/above optimal 130-159 mg/dL, Borderline high 160-189 mg/dL, High >189 mg/dL, Very high Secondary prevention optimal LDL Cholesterol levels are recommended to be < 70 mg/dL Performed By: #### 3 016-3, 63156-3, 7, ####[facility] LABCLIA [id number] [address] [address] [place] Cholesterol in LDL/Cholesterol in HDL [Mass ratio] 1.04 {ratio} Normal <2.54 [facility] Comment on above: Order Comment: Speci men Type: BLOOD SPECIMENOrdering Facility: [facility] Address: [address] [place] [address] Result Comment: Refe rence: 1. National Cholesterol Education Program ATP III Guideline At-A-Glance Quick Desk Reference: National Heart, Lung, and Blood [place]. National Institutes of Health. 2001: NIH Publication No. 01-3305. 2. An International Atherosclerosis Society position paper: global recommendations for the management of dyslipidemia: executive summary, Atherosclerosis. 2014: 232(2):410-413. Performed By: #### 3 016-3, 20638-3, 3023-12, ####[facility] LABCLIA [id number] [place] [address] [place] Cholesterol in VLDL [Mass/Vol] 13 mg/dL Normal <30 [facility] Comment on above: Order Comment: Speci men Type: BLOOD SPECIMENOrdering Facility: [facility] Address: [address] [place] [address] Performed By: #### 3 016-3, 25874-8, 7, ####[facility] LABIA [id number] [address] [address] [place] Cholesterol non HDL [Mass/Vol] 60 mg/dL Normal <130 [facility] Comment on above: Order Comment: Speci men Type: BLOOD SPECIMENOrdering Facility: [facility] Address: [address] [place] [address] Result Comment: <130 mg/dL, Optimal 130-159 mg/dL, Near optimal/above optimal 160-189 mg/dL, Borderline high 190-219 mg/dL, High >219 mg/dL, Very high Secondary prevention optimal non HDL Cholesterol levels are recommended to be <100 mg/dL Performed By: #### 3 016-3, 93635-8, 3023-12, ####[facility] LABCLIA [id number] [address] [address] [place] Cholesterol.total/Choles terol in HDL [Mass ratio] 2.33 {ratio} Normal <5.10 [facility] Comment on above: Order Comment: Speci men Type: BLOOD SPECIMENOrdering Facility: [facility] Address: [address] [place] [address] Performed By: #### 3 016-3, 88755-2, 3023-12, ####[facility] LABCLIA [id number] [address] STATES OF [facility] FASTING TIME 13 hrs Normal [facility] Comment on above: Order Comment: Speci men Type: BLOOD SPECIMENOrdering Facility: [facility] Address: [address] [place] [address] Performed By: #### 3 016-3, 10526-1, 3023-12, ####[facility] LABCLIA [id number] [place] [address] [place] Triglyceride [Mass/Vol] 66 mg/dL Normal <150 [facility] Comment on above: Order Comment: Speci men Type: BLOOD SPECIMENOrdering Facility: [facility] Address: [address] [place] [address] Result Comment: <150 mg/dL, Normal 150-199 mg/dL, Borderline high 200-499 mg/dL, High >499 mg/dL, Very high Performed By: #### 3 016-3, 18668-3, 3023-12, ####[facility] LABCLIA [id number] [place] [id number] [place] T4 Free SerPl-mCncon 024 Free T4 [Mass/Vol] 1.2 ng/dL Normal 0.9-1.7 [facility] Comment on above: Order Comment: Speci men Type: BLOOD SPECIMENOrdering Facility: [facility] Address: [address] [place] [address] Performed By: #### 3 016-3, 30329-8, 3024-7, 95183-8 ####[facility] LABCLIA [id number] [address] [place] TSH SerPl-aCncon 05-18-2024 TSH Qn 2.150 m[IU]/L Normal 0.270-4.20 0 [facility] Comment on above: Order Comment: Speci men Type: BLOOD SPECIMENOrdering Facility: [facility] Address: [address] [place] [address] Performed By: #### 3 016-3, 86972-9, 3024-7, 17944-7 ####[facility] LABIA [id number] [address] OF [place] CNOVon 05-17-2024 CNOV Office Visit (INTMWS ) ----- ROHAN OLIVIA JR. ([id number]) 1945 M Date Time Provider Department 05/17/24 [...] review all the medicines you take, even firz-zuy-xkvvuhn medicines. As you get older, the way [...] PCP - General Delicia Anton APRN.ALFREDO as Senior Instrumentation Engineer (Internal Medicine) Douglas Mortensen MD (Cardiology) Chris Pearson Jr., MD (Neurology) Debra Castrejon DPM (Podiatry) Outside specialists seen: Blanca Obrien MD (Gastroenterology) Angel Connolly MD (Urology) Claire Herrera APRN, CNP (Dermatology, [facility]) Pascual Dawson MD (ENT) Nikhil Darling (Optometry). [...] advance directives (more content not included)... Normal [facility] CNOVon 05-13-2024 CNOV Office Visit (NEMOWS ) ----- ROHAN OLIVIA JRJosé ([id number]) 1945 M Date Time Provider Department 05/13/24 [...] was advised that he follow-up with his grounds caretaker and surgeon to determine when he may [...] joint pa (more content not included)... Normal [facility] Orthopedic Visit Reporton Orthopedic Visit Report [facility] [address] [place] [address] [address] [place] [address] OFFICE VISIT Date of Service: 05/06/24 MR#: [id number] Acct: [id number] Name: ROHAN OLIVIA Rep #: [id number] : 1945 Provider: Dr. Emory carcamo DO Age/Sex: 78/M [place] [facility] Status: Signed Intake Vital Signs 04/09/24 12:02 [...] #348.6 grams 12/14/23 05/06/24 Rx oral powder [id number] 100 gram-sod sulf 7.5 240 ml PO PER PKG DIR #1 ea 12/14/23 05/06/24 Rx hjgv-EtYq-AJn-ascorbate-C oral pwdr pack (MoviPrep) aspirin 81 mg [...] to ge (more content not included)... Normal [facility] 04-29-2024 [facility] Telephone (INTMWS) ----- ROHAN OLIVIA JR. ([id number]) 1945 M Date Time Provider Department 04/29/24 BRANDON CANTOR INTNadiyaWS During your visit today, we recorded the following information about you: Amrita Hernandez RN 04/29/2024 2:11 PM Signed Patient calling to request letter for excuse from jury duty from [facility] [employer]. He says needs excused due to Parkinson's. 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 Let patient know when [...] [R07.89] 08/10/2020 09/14/2020 Coronary artery disease of gambell artery of emigdio*08/24/2020 Unsteady gait [R26.81] 02/15/2021 Tremors of nervous system [R25.1] 07/10/2021 11/17/2021 Chronic diarrhea [K52.9] 11/17/2021 Abnormal weight loss [R63.4] 11/17/2021 08/04/2022 Parkinson's disease (HCC) [G20.A1] 11/17/2021 Renal cell cancer, 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] 05/05/2022 Vasomotor rhinitis [J30.0] 08/04/2022 Platelets decreased (HCC) [D69.6] 11/04/2022 Stage 3a chronic kidney disease (HCC) [N18.31] 05/19/2023 Letter Text Encounter Status:Closed by RENEA CARABALLO on 04/29/24 [facility] 04-15-2024 CNOV Office Visit (CAWSTR ) ----- ROHAN OLIVIA Lyle CASTILLO ([id number]) 1945 M Date Time Provider Department 04/15/24 3:20 PM DOUGLAS MORTENSEN During your visit today, we recorded the following information about you: Pulse Blood pressure Weight Height 66/minute 116/60 84.4 kg 1.772 m Douglas Mortensen MD 04/15/2024 3:51 PM Signed Douglas Mortensen MD Interventional Cardiology [address] [place] [address] [phone] Chief Complaint Patient presents with: Yearly Exam [...] Other chest pain Sandrita Mortensen MD. Cath /[facility] 08/20/2020. Other pulmonary embolism with acute [...] Emphysema Maternal Grandfather 50 years working on [employer], coal smoke inhalation. Asthma Maternal Grandfather Colon [...] area two times a week. Per [facility]. PRN ipratropium bromide (ATROVENT) 42 mcg (0.06 %) nasal spray Use 2 Sprays in the nose four times daily. (Patient taking differently: Use 2 Sprays in the nose as needed.) 15 mL 5 LORazepam (ATIV (more content not included)... Normal [facility] Colonoscopy Reporton 024 Colonoscopy Report [facility] Medical Records Department [address] [place] [address] Colonoscopy Report MR#: [id number] Acct: [id number] Name: ROHAN OLIVIA Rep #: [id number] : 1945 78 From: James Obrien DO PCP: Dr. Brandon Cantor MD Status:[facility] Patient Name: Rohan Olivia Procedure Date: 04/09/2024 [...] for surveillance. Procedure Code(s): --- Professional --- 56589, Colonoscopy, flexible; with biopsy, single or multiple CPT copyright 2021 [employer]. All r (more content not included)... Normal [facility] MR/POSTOP.James 04-09-2024 MR/POSTOP.[facility] Medical Records Department [address] [place] [address] Anesthesia Postop Eval I 04/09/24 1333 MR#: [id number] Acct: [id number] Name: ROHAN OLIVIA W Rep #: [id number] : 1945 78 From: Laure Beverly CRNA PCP: Dr. Brandon Cantor MD Status:[facility] Y Race: C Location: [place] [address] Anesthesia: Postop Eval I Current Vital Signs [...] completed: Yes 04/09/24 1334 Date Laure Beverly ORACLE TECHNICAL DEVELOPER Cosigner Signature: Date CC: Signed Normal [facility] MR/[id number] 04-09-2024 [facility] Medical Records Department [address] [place] [address] Anesthesia Postop Eval II 04/09/24 1630 MR#: [id number] Acct: [id number] Name: ROHAN OLIVIA W Rep #: [id number] : 1945 78 From: Farshad Mcclure MD PCP: Dr. Brandon Cantor MD Status:[facility] Y Race: C Location: EN Anesthesia Postop Eval I Sum Postop Eval Completion status Anesthesia document: Postop Eval 1 completed: Yes Anesthesia Postop Eval I Summary Anesthesia Postop Eval I Summary: Anesthesia Postop Eval I: Assessment Summary Airway patent Yes 04/09/24 13:34 ORACLE TECHNICAL DEVELOPER.HBARR Spontaneous unlabored Yes 04/09/24 13:34 ORACLE TECHNICAL DEVELOPER.HBARR respirations Mental status Awake 04/09/24 13:34 ORACLE TECHNICAL DEVELOPER.HBARR nausea No 04/09/24 13:34 ORACLE TECHNICAL DEVELOPER.HBARR Vomiting No 04/09/24 13:34 ORACLE TECHNICAL DEVELOPER.HBARR Anesthesia Postop Eval I: Fluid Summary Crystalloid volume administer 20 04/09/24 13:34 ORACLE TECHNICAL DEVELOPER.HBARR (ml) Colloids volume administered ( ml) Blood Product volume administered (ml) Total IV fluid infused 20 04/09/24 13:34 ORACLE TECHNICAL DEVELOPER.HBARR Anesthesia Postop Eval I: Summary Notes Anesthesia Complication No 04/09/24 13:34 ORACLE TECHNICAL DEVELOPER.HBARR Anesthesia Complication Comment: Post-operative progress note Anesthesia: Postop Eval II Evaluation Mental status: Awake Pain Level: 0 nausea: No Vomiting: No 04/09/24 1630 Date Farshad Balderrama Signature: Date CC: Signed Normal [facility] Surgery Specimen Level Dwayne 04-09-2024 Surgery Specimen Level IV Patient Age/Sex Location Account Attending Physician ROHAN OLIVIA 78/M [place] [id number] James Obrien DO Specimen: [id number] Received: 04/09/24 Status: RAY Pepe Num: [id number] Spec Type: COLON BX Subm Dr: James [...] totally submitted in one cassette. 04/10/2024 TC:1 CPT:81578d6 Patient Age/Sex Location Account Attending Physician ROHAN OLIVIA 78/M [place] [id number] James Obrien DO Signed (signature on file) Dr. David Baxter MD 04/11/24 1310 Normal [facility] Comment on above: Performed By: #### P SUIV ####[facility] [id number] [place], [address] CNOVon 03-11-2024 CNOV Office Visit (PODIWS ) ----- ROHAN OLIVIA JR. ([id number]) 1945 M Date Time Provider Department 03/11/24 [...] Debra Castrejon DPM Referring Provider: DEBRA CASTREJON [[id number]] Allergies As of Date: 03/11/2024 (No Known [...] area two times a week. Per [facility]. PRN - ipratropium bromide (ATROVENT) 42 [...] [R06.09] 10/03 (more content not included)... Normal [facility] Gastroenterology Visit Repor ton 12-14-2023 Gastroenterology Visit Report [facility] Gastroenterology [address] [place] [address] OFFICE VISIT Date of Service: 12/14/23 MR#: [id number] Acct: [id number] Name: ROHAN OLIVIA Rep #: [id number] : 1945 Provider: James Obrien DO Age/Sex: 78/M [place] [facility] Status: Signed Intake Vital Signs 04/19/23 [...] house 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al status: employed 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: [employer] pets and animals: Yes pets and animals: cat(s) and dog(s) Smoking Status: Former smoker quit date: 06/05/98 pack-years: 72 second hand exposure: No alcohol intake: never substance use type: does not use seatbelt use: always HPI HPI Chief Complaint: Hyperthyroidism Details: ROHAN OLIVIA, is a 78 M who presents to the office today for follow up. [facility] ED 11.14.21 with suspicion of repeat pseudomembranous [...] and knee (more content not included)... Normal [facility] No Panel InformationOrdered By: Marquis Murray on 09-12-2023 Free Triiodothyronine (T3) pg/dL 2.1 pg/mL 2.18-3.98 [facility] Serum or plasma thyroid stim ulating hormone (TSH) measurement (units/volume)Ordered By: Marquis Murray on 09-12-2023 TSH Qn 0.84 uIU/mL 0.358-3.74 [facility] Thin prep Papanicolaou smear with manual screeningOrdered By: Marquis Murray on 09-12-2023 Thin prep Papanicolaou smear with manual screening 1.00 ng/dL 0.76-1.46 [facility] Absolute lymphocyte countOrd ered By: Wisam Bella on 08-18-2023 Lymphocytes Auto (Unsp spec) [#/Vol] 0.86 10*3/uL 0.83-4.51 [facility] Automated lymphocyte count a s percentage of total leukocytesOrdered By: Wisam Bella on 08-18-2023 Lymphocytes/100 WBC Auto (Unsp spec) 9.4 % 19-41 [facility] Basophil percentageOrdered B y: Wisam Bella on 08-18-2023 Lactate [Moles/Vol] 1.1 mmol/L 0.4-2.0 [facility] Basophils/100 WBC (Bld) 0.7 % 0-1 [facility] Bilirubin [Mass/Vol] 0.90 mg/dL 0.20-1.00 [facility] Comment on above: For patients on eltr ombopag therapy, use of Dimension [place] TBIL is not recommended. Chloride [Moles/Vol] 107 mmol/L 98-107 [facility] Eosinophils/100 WBC (Bld) 1.8 % 0-5 [facility] Glucose [Mass/Vol] 111 mg/dL 74-106 [facility] Comment on above: Fasting Glucose resu lt from 100 to 125 mg/dL suggests IMPAIRED HOMEOSTASIS per A.D.A. criteria. Hemoglobin (Bld) [Mass/Vol] 16.0 g/dL 13.0-16.5 [facility] Monocytes/100 WBC (Bld) 7.1 % 0-10 [facility] Neutrophils (Bld) [#/Vol] 7.4 10*3/uL 2.0-7.7 [facility] Neutrophils/100 WBC (Bld) 80.6 % 47-70 [facility] Potassium [Moles/Vol] 3.9 mmol/L 3.5-5.1 [facility] Protein [Mass/Vol] 7.0 g/dL 6.4-8.2 [facility] Sodium [Moles/Vol] 142 mmol/L 136-145 [facility] WBC (Bld) [#/Vol] 9.1 10*3/uL 4.4-11.0 [facility] Determination of erythrocyte mean corpuscular volume (MCV)Ordered By: Wisam Bella on 08-18-2023 MCV (RBC) [Entitic vol] 91.7 fL 80-94 [facility] Direct bilirubinOrdered By: Wisam Bella on 08-18-2023 Bilirubin.direct [Mass/Vol] 0.24 mg/dL 0.00-0.30 [facility] Erythrocyte distribution wid th ratioOrdered By: Wisam Bella on 08-18-2023 Erythrocyte distribution width (RBC) [Ratio] 14.1 % 11.6-14.6 [facility] Erythrocyte distribution wid th standard deviationOrdered By: Wisam Bella on 08-18-2023 Erythrocyte distribution width (RBC) [Entitic vol] 47.7 fL 35.1-43.9 [facility] Hematocrit Auto (Bld) [Volum e fraction]Ordered By: Wisam Bella on 08-18-2023 Hematocrit (Bld) [Volume fraction] 48.4 % 40-54 [facility] Immature granulocytes/100 WB C Auto (Bld)Ordered By: Wisam Bella on 08-18-2023 Immature granulocytes/100 WBC (Bld) 0.400 % 0.0-0.9 [facility] Comment on above: IG% - Immature Granu locytes (promyelocytes, myelocytes and metamyelocytes) > 1% indicates that a LEFT SHIFT is Present. Laboratory - Chemistry and C hemistry - challengeOrdered By: Wisam Bella on 08-18-2023 ALP [Catalytic activity/Vol] 96 U/L 45-117 [facility] ALT [Catalytic activity/Vol] U/L 16-61 [facility] CO2 [Moles/Vol] 29.0 mmol/L 21.0-32.0 [facility] Globulin (S) [Mass/Vol] 3.2 g/dL 2.2-4.2 [facility] Lipase [Catalytic activity/Vol] 64 U/L 13-75 [facility] Comment on above: Please note:LIPASE r evised reference range effective 22. New Lipase methodology. Expected to produce lower values than the previous assay method. NEW Reference Range: 13 - 75 U/L Urea nitrogen/Creatinine [Mass ratio] 12.3 mg/mg 10-20 [facility] Laboratory - Hematology and Cell countsOrdered By: Wisam Bella on 08-18-2023 MCH (RBC) [Entitic mass] 30.3 pg 27.0-32.0 [facility] MCHC (RBC) [Mass/Vol] 33.1 g/dL 32-36 [facility] Nucleated RBC/100 WBC (Bld) [Ratio] 0 % 0-5 [facility] Platelet mean volume (Bld) [Entitic vol] 10.9 fL 6.2-12.0 [facility] Platelets (Bld) [#/Vol] 150 10*3/uL 150-450 [facility] No Panel InformationOrdered By: Wisam Bella on 08-18-2023 Estimated Creatinine Clearance Calc 40.82 ml/min [facility] Estimated GFR (MDRD) Amer 56 mL/min >60 [facility] Comment on above: GFR Calc Estimated GFR (MDRD) Non-Af Amer 47 mL/min >60 [facility] Comment on above: Non- GFR Calc RBC Auto (Bld) [#/Vol]Ordere d By: Wisam Bella on 08-18-2023 RBC (Bld) [#/Vol] 5.28 10*6/uL 4.6-6.2 [facility] Serum or plasma calcium mey urement (mass/volume)Ordered By: Wisam Bella on 08-18-2023 Calcium [Mass/Vol] 9.5 mg/dL 8.5-10.1 [facility] Serum or plasma creatinine m easurement (mass/volume)Ordered By: Wisam Bella on 08-18-2023 Creatinine [Mass/Vol] 1.54 mg/dL 0.70-1.30 [facility] Comment on above: The validity of the calculated GFR & GFRAA in patients over 70 years has not been determined. Clinical correlation is essential. Serum or plasma urea nitroge n measurement (mass/volume)Ordered By: Wisam Bella on 08-18-2023 Urea nitrogen [Mass/Vol] 19 mg/dL 7-18 [facility] Thin prep Papanicolaou smear with manual screeningOrdered By: Wisam Bella on 08-18-2023 Thin prep Papanicolaou smear with manual screening 3.8 g/dL 3.2-5.0 [facility] Thin prep Papanicolaou smear with manual screening 14 U/L 15-37 [facility] Thin prep Papanicolaou smear with manual screening 6 5-15 [facility] Basophil percentageOrdered B y: Gio Connolly on 06-15-2023 Chloride [Moles/Vol] 109 mmol/L 98-107 [facility] Glucose [Mass/Vol] 82 mg/dL 74-106 [facility] Potassium [Moles/Vol] 4.3 mmol/L 3.5-5.1 [facility] Sodium [Moles/Vol] 142 mmol/L 136-145 [facility] WBC (Bld) [#/Vol] 6.6 10*3/uL 4.4-11.0 [facility] Blood erythrocytes count (nu mber/volume)Ordered By: Gio Connolly on 06-15-2023 RBC (Bld) [#/Vol] 5.16 10*6/uL 4.6-6.2 [facility] Blood hemoglobin measurement (mass/volume)Ordered By: Gio Connolly on 06-15-2023 Hemoglobin (Bld) [Mass/Vol] 15.7 g/dL 13.0-16.5 [facility] Blood platelet mean volumeOr dered By: Gio Connolly on 06-15-2023 Platelet mean volume (Bld) [Entitic vol] 12.7 fL 6.2-12.0 [facility] Determination of erythrocyte mean corpuscular volume (MCV)Ordered By: Gio Connolly on 06-15-2023 MCV (RBC) [Entitic vol] 93.4 fL 80-94 [facility] Hematocrit Auto (Bld) [Volum e fraction]Ordered By: Gio Connolly on 06-15-2023 Hematocrit (Bld) [Volume fraction] 48.2 % 40-54 [facility] Laboratory - Chemistry and C hemistry - challengeOrdered By: Gio Connolly on 06-15-2023 CO2 [Moles/Vol] 30.0 mmol/L 21.0-32.0 [facility] Urea nitrogen/Creatinine [Mass ratio] 13.2 mg/mg 10-20 [facility] Laboratory - Hematology and Cell countsOrdered By: Gio Connolly on 06-15-2023 Erythrocyte distribution width (RBC) [Entitic vol] 46.4 fL 35.1-43.9 [facility] Erythrocyte distribution width (RBC) [Ratio] 13.4 % 11.6-14.6 [facility] MCH (RBC) [Entitic mass] 30.4 pg 27.0-32.0 [facility] MCHC Auto (RBC) [Mass/Vol]Or dered By: Gio Connolly on 06-15-2023 MCHC (RBC) [Mass/Vol] 32.6 g/dL 32-36 [facility] No Panel InformationOrdered By: Gio Connolly on 06-15-2023 Estimated GFR (MDRD) Amer 57 mL/min >60 [facility] Comment on above: GFR Calc Estimated GFR (MDRD) Non-Af Amer 47 mL/min >60 [facility] Comment on above: Non- GFR Calc Prostate Specific Antigen Screen 2.34 ng/mL 0.00-4.00 [facility] Comment on above: This test was perfor med using the TPSA assay method for the[employer]igo chemistry system. Values obtained with differentassay methods cannot be used interchangably.When changing PSA assays in the course of monitoring apatient, additional sequential testing should be carriedout to confirm baseline values. Platelets bldOrdered By: Matthew Connolly on 06-15-2023 Platelets (Bld) [#/Vol] 111 10*3/uL 150-450 [facility] Serum or plasma calcium mey urement (mass/volume)Ordered By: Gio Connolly on 06-15-2023 Calcium [Mass/Vol] 9.5 mg/dL 8.5-10.1 [facility] Serum or plasma creatinine m easurement (mass/volume)Ordered By: Gio Connolly on 06-15-2023 Creatinine [Mass/Vol] 1.52 mg/dL 0.70-1.30 [facility] Comment on above: The validity of the calculated GFR & GFRAA in patients over 70 years has not been determined. Clinical correlation is essential. Serum or plasma urea nitroge n measurement (mass/volume)Ordered By: Gio Connolly on 06-15-2023 Urea nitrogen [Mass/Vol] 20 mg/dL 7-18 [facility] Thin prep Papanicolaou smear with manual screeningOrdered By: Gio Connolly on 06-15-2023 Thin prep Papanicolaou smear with manual screening 3 5-15 [facility] Laboratory - Chemistry and C hemistry - challengeOrdered By: Marquis Murray on 03-09-2023 Free T4 [Mass/Vol] 0.85 ng/dL 0.76-1.46 [facility] No Panel InformationOrdered By: Marquis Murray on 03-09-2023 Free Triiodothyronine (T3) pg/dL 2.1 pg/mL 2.18-3.98 [facility] Thyroid Stimulating Hormone (TSH) 2.09 uIU/mL 0.358-3.74 [facility] Serum or plasma gastrin mey urement (mass/volume)Ordered By: James Obrien on 02-02-2023 Gastrin [Mass/Vol] 26 pg/mL 0-115 [facility] Comment on above: Siemens Immulite 200 0 Immunochemiluminometric assay (ICMA)Values obtained with different assay methods or kits cannotbe used interchangeably. Results cannot be interpreted asabsolute evidence of the presence or absence of malignantdisease.Performed at: [facility] [id number] Director: Jw Hernandez MD, Phone: [phone] Basophil percentageOrdered B y: Gio Connolly on 12-12-2022 Bilirubin [Mass/Vol] 0.70 mg/dL 0.20-1.00 [facility] Comment on above: For patients on eltr ombopag therapy, use of Dimension [place] TBIL is not recommended. Chloride [Moles/Vol] 109 mmol/L 98-107 [facility] Glucose [Mass/Vol] 80 mg/dL 74-106 [facility] Potassium [Moles/Vol] 4.7 mmol/L 3.5-5.1 [facility] Protein [Mass/Vol] 6.7 g/dL 6.4-8.2 [facility] Sodium [Moles/Vol] 139 mmol/L 136-145 [facility] Laboratory - Chemistry and C hemistry - challengeOrdered By: Gio Connolly on 12-12-2022 ALP [Catalytic activity/Vol] 102 U/L 45-117 [facility] ALT [Catalytic activity/Vol] 8 U/L 16-61 [facility] CO2 [Moles/Vol] 30.0 mmol/L 21.0-32.0 [facility] Globulin (S) [Mass/Vol] 3.3 g/dL 2.2-4.2 [facility] Urea nitrogen/Creatinine [Mass ratio] 13.2 mg/mg 10-20 [facility] No Panel InformationOrdered By: Gio Connolly on 12-12-2022 Estimated GFR (MDRD) Amer 55 mL/min >60 [facility] Comment on above: GFR Calc Estimated GFR (MDRD) Non-Af Amer 45 mL/min >60 [facility] Comment on above: Non- GFR Calc Prostate Specific Antigen Total 3.61 ng/mL 0.0-4.0 [facility] Comment on above: This test was perfor med using the TPSA assay method for the[employer]igo chemistry system. Values obtained with differentassay methods cannot be used interchangably.When changing PSA assays in the course of monitoring apatient, additional sequential testing should be carriedout to confirm baseline values. Serum or plasma albumin mey urement (mass/volume)Ordered By: Gio Connolly on 12-12-2022 Albumin [Mass/Vol] 3.4 g/dL 3.2-5.0 [facility] Serum or plasma albumin/glob ulin mass ratioOrdered By: Gio Connolly on 12-12-2022 Albumin/Globulin [Mass ratio] 1.0 {ratio} 0.9-2.4 [facility] Serum or plasma calcium mey urement (mass/volume)Ordered By: Gio Cnonolly on 12-12-2022 Calcium [Mass/Vol] 9.2 mg/dL 8.5-10.1 [facility] Serum or plasma creatinine m easurement (mass/volume)Ordered By: Gio Connolly on 12-12-2022 Creatinine [Mass/Vol] 1.59 mg/dL 0.70-1.30 [facility] Comment on above: The validity of the calculated GFR & GFRAA in patients over 70 years has not been determined. Clinical correlation is essential. Serum or plasma urea nitroge n measurement (mass/volume)Ordered By: Gio Connolly on 12-12-2022 Urea nitrogen [Mass/Vol] 21 mg/dL 7-18 [facility] Thin prep Papanicolaou smear with manual screeningOrdered By: Gio Connolly on 12-12-2022 Thin prep Papanicolaou smear with manual screening 16 U/L 15-37 [facility] Thin prep Papanicolaou smear with manual screening 0 5-15 [facility] No Panel InformationOrdered By: James Obrien on 11-23-2022 Miscellaneous Test See comment [facility] Comment on above: TEST RESULTS LIMITSV asculitis Profile (RDL)Anti-Nuclear Ab by IFA (RDL)A, Positive Abnormal NegativeHomogeneous Pattern A, 1:160 High <1:40Speckled Pattern A, 1:160 High <1:40Note: NICOLE performed by Indirect Fluorescent Antibody (IFA)ANCA by IFA (RDL) Negative BzlrspnsFwzp-ZM-4 Ab (RDL) <20 Units <20Anti-MPO Ab (RDL) [...] the Food and DrugAdministration. [facility]. ORIGINAL REPORT ON FILE IN LAB CONTAINS ADDITIONAL TEST SITE INFORMATION. Laboratory - Chemistry and C hemistry - challengeOrdered By: Dr. Murray on 09-20-2022 Free T4 [Mass/Vol] 0.88 ng/dL 0.76-1.46 [facility] No Panel InformationOrdered By: Dr. Murray on 09-20-2022 Free Triiodothyronine (T3) pg/dL 2.0 pg/mL 2.18-3.98 [facility] Thyroid Stimulating Hormone (TSH) 1.86 uIU/mL 0.358-3.74 [facility] MRI BRAIN WO IVCONon 023 [facility] Absolute lymphocyte countOrd ered By: Dr. Fox on 08-10-2022 Lymphocytes Auto (Unsp spec) [#/Vol] 0.77 10*3/uL 0.83-4.51 [facility] Basophil percentageOrdered B y: Dr. Fox on 08-10-2022 Basophils/100 WBC (Bld) 0.5 % 0-1 [facility] Chloride [Moles/Vol] 107 mmol/L 98-107 [facility] Eosin[facility]/100 WBC (Bld) 0.9 % 0-5 [facility] Glucose [Mass/Vol] 94 mg/dL 74-106 [facility] Neutrophils (Bld) [#/Vol] 5.4 10*3/uL 2.0-7.7 [facility] Neutrophils/100 WBC (Bld) 81.0 % 47-70 [facility] Potassium [Moles/Vol] 3.9 mmol/L 3.5-5.1 [facility] Sodium [Moles/Vol] 140 mmol/L 136-145 [facility] WBC (Bld) [#/Vol] 6.6 10*3/uL 4.4-11.0 [facility] Blood erythrocytes count (nu mber/volume)Ordered By: Dr. Fox on 08-10-2022 RBC (Bld) [#/Vol] 5.70 10*6/uL 4.6-6.2 [facility] Blood hemoglobin measurement (mass/volume)Ordered By: Dr. Fox on 08-10-2022 Hemoglobin (Bld) [Mass/Vol] 17.7 g/dL 13.0-16.5 [facility] Blood lymphocytes/100 leukoc ytesOrdered By: Dr. Fox on 08-10-2022 Lymphocytes/100 WBC (Bld) 11.6 % 19-41 [facility] Blood monocytes/100 leukocyt esOrdered By: Dr. Fox on 08-10-2022 Monocytes/100 WBC (Bld) 5.7 % 0-10 [facility] Blood platelet mean volumeOr dered By: Dr. Fox on 08-10-2022 Platelet mean volume (Bld) [Entitic vol] 11.0 fL 6.2-12.0 [facility] Determination of erythrocyte mean corpuscular volume (MCV)Ordered By: Dr. Fox on 08-10-2022 MCV (RBC) [Entitic vol] 92.1 fL 80-94 [facility] Glucose Glucometer (BldC) [M ass/Vol]Ordered By: Dr. Fox on 08-10-2022 Glucose [Mass/Vol] 97 mg/dL 74-106 [facility] Comment on above: MANAGEMENT OF PATIEN T CARE PER NURSING PROTOCOL Hematocrit Auto (Bld) [Volum e fraction]Ordered By: Dr. Fox on 08-10-2022 Hematocrit (Bld) [Volume fraction] 52.5 % 40-54 [facility] Laboratory - Chemistry and C hemistry - challengeOrdered By: Dr. Fox on 08-10-2022 CO2 [Moles/Vol] 27.0 mmol/L 21.0-32.0 [facility] Urea nitrogen/Creatinine [Mass ratio] 13.3 mg/mg 10-20 [facility] Laboratory - Hematology and Cell countsOrdered By: Dr. Fox on 08-10-2022 Erythrocyte distribution width (RBC) [Entitic vol] 47.0 fL 35.1-43.9 [facility] Erythrocyte distribution width (RBC) [Ratio] 13.7 % 11.6-14.6 [facility] Immature granulocytes/100 WBC (Bld) 0.300 % 0.0-0.9 [facility] Comment on above: IG% - Immature Granu locytes (promyelocytes, myelocytes and metamyelocytes) > 1% indicates that a LEFT SHIFT is Present. MCH (RBC) [Entitic mass] 31.1 pg 27.0-32.0 [facility] Nucleated RBC/100 WBC (Bld) [Ratio] 0 % 0-5 [facility] MCHC Auto (RBC) [Mass/Vol]Or dered By: Dr. Fox on 08-10-2022 MCHC (RBC) [Mass/Vol] 33.7 g/dL 32-36 [facility] No Panel InformationOrdered By: Dr. Fox on 08-10-2022 Estimated Creatinine Clearance Calc 44.67 ml/min [facility] Estimated GFR (MDRD) Amer 62 mL/min >60 [facility] Comment on above: GFR Calc Estimated GFR (MDRD) Non-Af Amer 51 mL/min >60 [facility] Comment on above: Non- GFR Calc Platelets bldOrdered By: Dr. Fox on 08-10-2022 Platelets (Bld) [#/Vol] 143 10*3/uL 150-450 [facility] Serum or plasma calcium mey urement (mass/volume)Ordered By: Dr. Fox on 08-10-2022 Calcium [Mass/Vol] 10.0 mg/dL 8.5-10.1 [facility] Serum or plasma creatinine m easurement (mass/volume)Ordered By: Dr. Fox on 08-10-2022 Creatinine [Mass/Vol] 1.43 mg/dL 0.70-1.30 [facility] Comment on above: The validity of the calculated GFR & GFRAA in patients over 70 years has not been determined. Clinical correlation is essential. Serum or plasma urea nitroge n measurement (mass/volume)Ordered By: Dr. Fox on 08-10-2022 Urea nitrogen [Mass/Vol] 19 mg/dL 7-18 [facility] Thin prep Papanicolaou smear with manual screeningOrdered By: Dr. Fox on 08-10-2022 Thin prep Papanicolaou smear with manual screening 6 5-15 [facility] Clostridium difficile detect ion by polymerase chain reactionOrdered By: Ninoska Tyler on 06-27-2022 C. difficile DNA YOLANDA+probe Ql (Unsp spec) [facility] No Panel InformationOrdered By: Ninoska Tyler on 06-27-2022 Stool Calprotectin <16 ug/g 0-120 [facility] Comment on above: Concentration Interp retation Follow-Up<16 - 50 ug/g Normal None>50 -120 ug/g Borderline Re-evaluate in 4-6 weeks >120 ug/g Abnormal Repeat as clinically indicatedPerformed at: [facility] [id number] Director: Jw Hernandez MD, Phone: [phone] Stool lactoferrin detection by immunoassayOrdered By: Ninoska Tyler on 06-27-2022 Lactoferrin IA Ql (Stl) [facility] Absolute lymphocyte countOrd ered By: Ninoska Tyler on 06-23-2022 Lymphocytes Auto (Unsp spec) [#/Vol] 0.75 10*3/uL 0.83-4.51 [facility] Atypical perinuclear antineu trophil cytoplasmic antibodies measurementOrdered By: Ninoska Tyler on 06-23-2022 Neutrophil cytoplasmic Ab.perinuclear.atypical IF (S) [Titer] <1:20 titer Neg:<1:20 [facility] Comment on above: The atypical pANCA p attern has been observed in asignificant percentage of patients with ulcerative colitis,primary sclerosing cholangitis and autoimmune hepatitis.Performed at: - [facility] [address] [id number] Director: Rich England PhD, Phone: [phone] at: - [facility] [address] [id number] Director: Jw Hernandez MD, Phone: [phone] Basophil percentageOrdered B y: Ninoska Tyler on 06-23-2022 Basophil percentage < 0.2 AI 0.0-0.9 [facility] Basophils/100 WBC (Bld) 0.8 % 0-1 [facility] Bilirubin [Mass/Vol] 0.70 mg/dL 0.20-1.00 [facility] Comment on above: For patients on eltr ombopag therapy, use of Dimension [place] TBIL is not recommended. Chloride [Moles/Vol] 108 mmol/L 98-107 [facility] Eosinophils/100 WBC (Bld) 2.4 % 0-5 [facility] Glucose [Mass/Vol] 77 mg/dL 74-106 [facility] LDH [Catalytic activity/Vol] 172 U/L 87-241 [facility] Neutrophils (Bld) [#/Vol] 4.7 10*3/uL 2.0-7.7 [facility] Neutrophils/100 WBC (Bld) 76.2 % 47-70 [facility] Potassium [Moles/Vol] 4.3 mmol/L 3.5-5.1 [facility] Protein [Mass/Vol] 6.8 g/dL 6.4-8.2 [facility] Sodium [Moles/Vol] 141 mmol/L 136-145 [facility] WBC (Bld) [#/Vol] 6.2 10*3/uL 4.4-11.0 [facility] Blood erythrocytes count (nu mber/volume)Ordered By: Ninoska Tyler on 06-23-2022 RBC (Bld) [#/Vol] 4.82 10*6/uL 4.6-6.2 [facility] Blood hemoglobin measurement (mass/volume)Ordered By: Ninoska Tyler on 06-23-2022 Hemoglobin (Bld) [Mass/Vol] 15.1 g/dL 13.0-16.5 [facility] Blood lymphocytes/100 leukoc ytesOrdered By: Ninoska Tyler on 06-23-2022 Lymphocytes/100 WBC (Bld) 12.2 % 19-41 [facility] Blood monocytes/100 leukocyt esOrdered By: Ninoska Tyler on 06-23-2022 Monocytes/100 WBC (Bld) 8.1 % 0-10 [facility] Blood platelet mean volumeOr dered By: Ninoska Tyler on 06-23-2022 Platelet mean volume (Bld) [Entitic vol] 11.4 fL 6.2-12.0 [facility] Determination of erythrocyte mean corpuscular volume (MCV)Ordered By: Ninoska Tyler on 06-23-2022 MCV (RBC) [Entitic vol] 94.4 fL 80-94 [facility] Erythrocyte sedimentation ra teOrdered By: Ninoska Tyler on 06-23-2022 ESR (Bld) [Velocity] 4 mm/h 0-20 [facility] Hematocrit Auto (Bld) [Volum e fraction]Ordered By: Ninoska Tyler on 06-23-2022 Hematocrit (Bld) [Volume fraction] 45.5 % 40-54 [facility] Laboratory - Chemistry and C hemistry - challengeOrdered By: Ninoska Tyler on 06-23-2022 ALP [Catalytic activity/Vol] 99 U/L 45-117 [facility] ALT [Catalytic activity/Vol] 11 U/L 16-61 [facility] CO2 [Moles/Vol] 31.0 mmol/L 21.0-32.0 [facility] Globulin (S) [Mass/Vol] 3.3 g/dL 2.2-4.2 [facility] Urea nitrogen/Creatinine [Mass ratio] 14.5 mg/mg 10-20 [facility] Laboratory - Hematology and Cell countsOrdered By: Ninoska Tyler on 06-23-2022 Erythrocyte distribution width (RBC) [Entitic vol] 51.6 fL 35.1-43.9 [facility] Erythrocyte distribution width (RBC) [Ratio] 14.8 % 11.6-14.6 [facility] Immature granulocytes/100 WBC (Bld) 0.300 % 0.0-0.9 [facility] Comment on above: IG% - Immature Granu locytes (promyelocytes, myelocytes and metamyelocytes) > 1% indicates that a LEFT SHIFT is Present. MCH (RBC) [Entitic mass] 31.3 pg 27.0-32.0 [facility] Nucleated RBC/100 WBC (Bld) [Ratio] 0 % 0-5 [facility] MCHC Auto (RBC) [Mass/Vol]Or dered By: Ninoska Tyler on 06-23-2022 MCHC (RBC) [Mass/Vol] 33.2 g/dL 32-36 [facility] No Panel InformationOrdered By: Ninoska Tyler on 06-23-2022 Centromere B Antibody <0.2 AI 0.0-0.9 [facility] Endomysial IgA Antibody Negative Negative [facility] Estimated GFR (MDRD) Amer 61 mL/min >60 [facility] Comment on above: GFR Calc Estimated GFR (MDRD) Non-Af Amer 50 mL/min >60 [facility] Comment on above: Non- GFR Calc Immunoglobulin E 31 IU/mL 6-495 [facility] [employer] Antibody 0.5 AI 0.0-0.9 [facility] Platelets bldOrdered By: Marlene Tyler on 06-23-2022 Platelets (Bld) [#/Vol] 169 10*3/uL 150-450 [facility] Serum DNA double strand anti body assay (units/volume)Ordered By: Ninoska Tyler on 06-23-2022 DNA double strand Ab Qn (S) [IU]/mL 0-9 [facility] Comment on above: Negative <5 Equivoca l 5 - 9 Positive >9 Serum Mireya-1 antibody assay (u nits/volume)Ordered By: Ninoska Tyler on 06-23-2022 Mireya-1 extractable nuclear Ab Qn (S) <0.2 AI 0.0-0.9 [facility] Serum Scl-70 extractable nuc lear antibody assay (units/volume)Ordered By: Ninoska Tyler on 06-23-2022 SCL-70 extractable nuclear Ab Qn (S) <0.2 AI 0.0-0.9 [facility] Serum Gonsalez extractable nucl ear antibody detectionOrdered By: Ninoska Tyler on 06-23-2022 Gonsalez extractable nuclear Ab Ql (S) <0.2 AI 0.0-0.9 [facility] Serum classic neutrophil cyt oplasmic antibody assay (units/volume)Ordered By: Ninoska Tyler on 06-23-2022 Neutrophil cytoplasmic Ab.classic Qn (S) <1:20 titer Neg:<1:20 [facility] Serum or plasma C reactive p rotein measurement (mass/volume)Ordered By: Ninoska Tyler on 06-23-2022 CRP [Mass/Vol] mg/L 0.0-3.0 [facility] Comment on above: C-Reactive Protein ( CRP) provides useful information for thediagnosis, therapy and monitoring of inflammatory processesand associated diseases. For the evaluation of Relative Riskfor Cardiovascular Disease, a High Sensitivity CRP (HSCRP)should be ordered. Serum or plasma IgA measurem ent (mass/volume)Ordered By: Ninoska Tyler on 06-23-2022 IgA [Mass/Vol] 177 mg/dL 61-437 [facility] Serum or plasma IgG measurem ent (mass/volume)Ordered By: Ninoska Tyler on 06-23-2022 IgG [Mass/Vol] 997 mg/dL 603-1613 [facility] Serum or plasma IgM measurem ent (mass/volume)Ordered By: Ninoska Tyler on 06-23-2022 IgM [Mass/Vol] 16 mg/dL 15-143 [facility] Comment on above: Result confirmed on concentration. Serum or plasma albumin mey urement (mass/volume)Ordered By: Ninoska Tyler on 06-23-2022 Albumin [Mass/Vol] 3.5 g/dL 3.2-5.0 [facility] Serum or plasma albumin/glob ulin mass ratioOrdered By: Ninosak Tyler on 06-23-2022 Albumin/Globulin [Mass ratio] 1.1 {ratio} 0.9-2.4 [facility] Serum or plasma calcium mey urement (mass/volume)Ordered By: Ninoska Tyler on 06-23-2022 Calcium [Mass/Vol] 9.2 mg/dL 8.5-10.1 [facility] Serum or plasma creatinine m easurement (mass/volume)Ordered By: Ninoska Tyler on 06-23-2022 Creatinine [Mass/Vol] 1.45 mg/dL 0.70-1.30 [facility] Comment on above: The validity of the calculated GFR & GFRAA in patients over 70 years has not been determined. Clinical correlation is essential. Serum or plasma urea nitroge n measurement (mass/volume)Ordered By: Ninoska Tyler on 06-23-2022 Urea nitrogen [Mass/Vol] 21 mg/dL 7-18 [facility] Serum perinuclear neutrophil cytoplasmic antibody titer by immunofluorescenceOrdered By: Ninoska Tyler on 06-23-2022 Neutrophil cytoplasmic Ab.perinuclear IF (S) [Titer] 1:160 titer Neg:<1:20 [facility] Comment on above: The presence of posi tive fluorescence exhibiting P-ANCA orC-ANCA patterns alone is not specific for the diagnosis ofWegener's Granulomatosis (WG) or microscopic polyangiitis.Decisions about treatment should not be based solely onANCA IFA results. The [employer] ANCA Group Consensusrecommends follow up testing of positive sera with both NH-3 and MPO-ANCA enzyme immunoassays. As many as 5% serumsamples are positive only by EIA. Ref. AM J Clin [id number];111:507-513. Serum tissue transglutaminas e IgA antibody assay (units/volume)Ordered By: Ninoska Tyler on 06-23-2022 tTG IgA Qn (S) <2 U/mL 0-3 [facility] Comment on above: Negative 0 - 3 Weak Positive 4 - 10 Positive >10 Tissue Transglutaminase (tTG) has been identified as the endomysial antigen. Studies have demonstr- ated that endomysial IgA antibodies have over 99% specificity for gluten sensitive enteropathy. Thin prep Papanicolaou smear with manual screeningOrdered By: Ninoska Tyler on 06-23-2022 Thin prep Papanicolaou smear with manual screening 13 U/L 15-37 [facility] Thin prep Papanicolaou smear with manual screening 2 5-15 [facility] Basophil percentageOrdered B y: Dr. Connolly on 06-07-2022 Bilirubin [Mass/Vol] 0.70 mg/dL 0.20-1.00 [facility] Comment on above: For patients on eltr ombopag therapy, use of Dimension [place] TBIL is not recommended. Chloride [Moles/Vol] 107 mmol/L 98-107 [facility] Glucose [Mass/Vol] 97 mg/dL 74-106 [facility] Potassium [Moles/Vol] 4.5 mmol/L 3.5-5.1 [facility] Protein [Mass/Vol] 6.9 g/dL 6.4-8.2 [facility] Sodium [Moles/Vol] 141 mmol/L 136-145 [facility] Laboratory - Chemistry and C hemistry - challengeOrdered By: Dr. Murray on 06-07-2022 Free T4 [Mass/Vol] 0.85 ng/dL 0.76-1.46 [facility] Laboratory - Chemistry and C hemistry - challengeOrdered By: Dr. Connolly on 06-07-2022 ALP [Catalytic activity/Vol] 100 U/L 45-117 [facility] ALT [Catalytic activity/Vol] 8 U/L 16-61 [facility] CO2 [Moles/Vol] 32.0 mmol/L 21.0-32.0 [facility] Globulin (S) [Mass/Vol] 3.3 g/dL 2.2-4.2 [facility] Urea nitrogen/Creatinine [Mass ratio] 15.8 mg/mg 10-20 [facility] No Panel InformationOrdered By: Dr. Murray on 06-07-2022 Free Triiodothyronine (T3) pg/dL 2.2 pg/mL 2.18-3.98 [facility] Thyroid Stimulating Hormone (TSH) 1.95 uIU/mL 0.358-3.74 [facility] No Panel InformationOrdered By: Dr. Connolly on 06-07-2022 Estimated GFR (MDRD) Amer 64 mL/min >60 [facility] Comment on above: GFR Calc Estimated GFR (MDRD) Non-Af Amer 53 mL/min >60 [facility] Comment on above: Non- GFR Calc Prostate Specific Antigen Total 1.73 ng/mL 0.0-4.0 [facility] Comment on above: This test was perfor med using the TPSA assay method for [employer] chemistry system. Values obtained with differentassay methods cannot be used interchangably.When changing PSA assays in the course of monitoring apatient, additional sequential testing should be carriedout to confirm baseline values. Serum or plasma albumin mey urement (mass/volume)Ordered By: Dr. Connolly on 06-07-2022 Albumin [Mass/Vol] 3.6 g/dL 3.2-5.0 [facility] Serum or plasma albumin/glob ulin mass ratioOrdered By: Dr. Connolly on 06-07-2022 Albumin/Globulin [Mass ratio] 1.1 {ratio} 0.9-2.4 [facility] Serum or plasma calcium mey urement (mass/volume)Ordered By: Dr. Connolly on 06-07-2022 Calcium [Mass/Vol] 9.4 mg/dL 8.5-10.1 [facility] Serum or plasma creatinine m easurement (mass/volume)Ordered By: Dr. Connolly on 06-07-2022 Creatinine [Mass/Vol] 1.39 mg/dL 0.70-1.30 [facility] Comment on above: The validity of the calculated GFR & GFRAA in patients over 70 years has not been determined. Clinical correlation is essential. Serum or plasma urea nitroge n measurement (mass/volume)Ordered By: Dr. Connolly on 06-07-2022 Urea nitrogen [Mass/Vol] 22 mg/dL 7-18 [facility] Thin prep Papanicolaou smear with manual screeningOrdered By: Dr. Connolly on 06-07-2022 Thin prep Papanicolaou smear with manual screening 12 U/L 15-37 [facility] Thin prep Papanicolaou smear with manual screening 2 5-15 [facility] Absolute lymphocyte countOrd ered By: Dr. Ordonez on 05-01-2022 Lymphocytes Auto (Unsp spec) [#/Vol] 0.82 10*3/uL 0.83-4.51 [facility] Basophil percentageOrdered B y: Dr. Ordonez on 05-01-2022 Basophils/100 WBC (Bld) 0.6 % 0-1 [facility] Bilirubin [Mass/Vol] 1.00 mg/dL 0.20-1.00 [facility] Comment on above: For patients on eltr ombopag therapy, use of Dimension [place] TBIL is not recommended. Chloride [Moles/Vol] 105 mmol/L 98-107 [facility] Eosinophils/100 WBC (Bld) 4.1 % 0-5 [facility] Glucose [Mass/Vol] 88 mg/dL 74-106 [facility] Neutrophils (Bld) [#/Vol] 4.6 10*3/uL 2.0-7.7 [facility] Neutrophils/100 WBC (Bld) 72.3 % 47-70 [facility] Potassium [Moles/Vol] 3.7 mmol/L 3.5-5.1 [facility] Comment on above: Moderate Hemolysis, Result may be falsely increased. Protein [Mass/Vol] 6.5 g/dL 6.4-8.2 [facility] Sodium [Moles/Vol] 140 mmol/L 136-145 [facility] WBC (Bld) [#/Vol] 6.3 10*3/uL 4.4-11.0 [facility] Blood erythrocytes count (nu mber/volume)Ordered By: Dr. Ordonez on 05-01-2022 RBC (Bld) [#/Vol] 5.05 10*6/uL 4.6-6.2 [facility] Blood hemoglobin measurement (mass/volume)Ordered By: Dr. Ordonez on 05-01-2022 Hemoglobin (Bld) [Mass/Vol] 15.1 g/dL 13.0-16.5 [facility] Blood lymphocytes/100 leukoc ytesOrdered By: Dr. Ordonez on 05-01-2022 Lymphocytes/100 WBC (Bld) 13.0 % 19-41 [facility] Blood monocytes/100 leukocyt esOrdered By: Dr. Ordonez on 05-01-2022 Monocytes/100 WBC (Bld) 9.8 % 0-10 [facility] Blood platelet mean volumeOr dered By: Dr. Ordonez on 05-01-2022 Platelet mean volume (Bld) [Entitic vol] 10.9 fL 6.2-12.0 [facility] Determination of erythrocyte mean corpuscular volume (MCV)Ordered By: Dr. Ordonez on 05-01-2022 MCV (RBC) [Entitic vol] 92.3 fL 80-94 [facility] Hematocrit Auto (Bld) [Volum e fraction]Ordered By: Dr. Ordonez on 05-01-2022 Hematocrit (Bld) [Volume fraction] 46.6 % 40-54 [facility] Laboratory - Chemistry and C hemistry - challengeOrdered By: Dr. Ordonez on 05-01-2022 ALP [Catalytic activity/Vol] 92 U/L 45-117 [facility] ALT [Catalytic activity/Vol] 8 U/L 16-61 [facility] CO2 [Moles/Vol] 31.0 mmol/L 21.0-32.0 [facility] Globulin (S) [Mass/Vol] 3.2 g/dL 2.2-4.2 [facility] Urea nitrogen/Creatinine [Mass ratio] 14.2 mg/mg 10-20 [facility] Laboratory - Hematology and Cell countsOrdered By: Dr. Ordonez on 05-01-2022 Erythrocyte distribution width (RBC) [Entitic vol] 50.8 fL 35.1-43.9 [facility] Erythrocyte distribution width (RBC) [Ratio] 14.8 % 11.6-14.6 [facility] Immature granulocytes/100 WBC (Bld) 0.200 % 0.0-0.9 [facility] Comment on above: IG% - Immature Granu locytes (promyelocytes, myelocytes and metamyelocytes) > 1% indicates that a LEFT SHIFT is Present. MCH (RBC) [Entitic mass] 29.9 pg 27.0-32.0 [facility] Nucleated RBC/100 [facility] (Bld) [[facility]] 0 % 0[facility] [Mass/Vol]Or dered By: Dr. Ordonez on 05-01-2022 MCHC (RBC) [Mass/Vol] 32.4 g/dL 32-36 [facility] No Panel InformationOrdered By: Dr. Ordonez on 05-01-2022 Estimated Creatinine Clearance Calc 48.42 ml/min [facility] Estimated GFR (MDRD) Amer 67 mL/min >60 [facility] Comment on above: GFR Calc Estimated GFR (MDRD) Non-Af Amer 55 mL/min >60 [facility] Comment on above: Non- GFR Calc Platelets bldOrdered By: Dr. Ordonez on 05-01-2022 Platelets (Bld) [#/Vol] 139 10*3/uL 150-450 [facility] Serum or plasma albumin mey urement (mass/volume)Ordered By: Dr. Ordonez on 05-01-2022 Albumin [Mass/Vol] 3.3 g/dL 3.2-5.0 [facility] Serum or plasma albumin/glob ulin mass ratioOrdered By: Dr. Ordonez on 05-01-2022 Albumin/Globulin [Mass ratio] 1.0 {ratio} 0.9-2.4 [facility] Serum or plasma calcium mey urement (mass/volume)Ordered By: Dr. Ordonez on 05-01-2022 Calcium [Mass/Vol] 9.3 mg/dL 8.5-10.1 [facility] Serum or plasma creatinine m easurement (mass/volume)Ordered By: Dr. Ordonez on 05-01-2022 Creatinine [Mass/Vol] 1.34 mg/dL 0.70-1.30 [facility] Comment on above: The validity of the calculated GFR & GFRAA in patients over 70 years has not been determined. Clinical correlation is essential. Serum or plasma urea nitroge n measurement (mass/volume)Ordered By: Dr. Ordonez on 05-01-2022 Urea nitrogen [Mass/Vol] 19 mg/dL 7-18 [facility] Thin prep Papanicolaou smear with manual screeningOrdered By: Dr. Ordonez on 05-01-2022 Thin prep Papanicolaou smear with manual screening 13 U/L 15-37 [facility] Comment on above: Moderate Hemolysis, Result may be falsely increased. Thin prep Papanicolaou smear with manual screening 4 5-15 [facility] Basophil percentageOrdered B y: Dr. Ordonez on 04-30-2022 Basophil percentage 2.6 mg/dL 2.5-4.9 [facility] Absolute lymphocyte countOrd ered By: Dr. Connolly on 02-18-2022 Lymphocytes Auto (Unsp spec) [#/Vol] 0.56 10*3/uL 0.83-4.51 [facility] Basophil percentageOrdered B y: Dr. Connolly on 02-18-2022 Basophils/100 WBC (Bld) 0.3 % 0-1 [facility] Chloride [Moles/Vol] 107 mmol/L 98-107 [facility] Eosinophils/100 WBC (Bld) 5.0 % 0-5 [facility] Glucose [Mass/Vol] 107 mg/dL 74-106 [facility] Comment on above: Fasting Glucose resu lt from 100 to 125 mg/dL suggests IMPAIRED HOMEOSTASIS per A.D.A. criteria. Neutrophils (Bld) [#/Vol] 5.9 10*3/uL 2.0-7.7 [facility] Neutrophils/100 WBC (Bld) 77.7 % 47-70 [facility] Potassium [Moles/Vol] 4.2 mmol/L 3.5-5.1 [facility] Sodium [Moles/Vol] 139 mmol/L 136-145 [facility] WBC (Bld) [#/Vol] 7.6 10*3/uL 4.4-11.0 [facility] Blood erythrocytes count (nu mber/volume)Ordered By: Dr. Connolly on 02-18-2022 RBC (Bld) [#/Vol] 4.60 10*6/uL 4.6-6.2 [facility] Blood hemoglobin measurement (mass/volume)Ordered By: Dr. Connolly on 02-18-2022 Hemoglobin (Bld) [Mass/Vol] 13.8 g/dL 13.0-16.5 [facility] Blood lymphocytes/100 leukoc ytesOrdered By: Dr. Connolly on 02-18-2022 Lymphocytes/100 WBC (Bld) 7.4 % 19-41 [facility] Blood monocytes/100 leukocyt esOrdered By: Dr. Connolly on 02-18-2022 Monocytes/100 WBC (Bld) 9.2 % 0-10 [facility] Blood platelet adequacy dete ction by light microscopyOrdered By: Dr. Connolly on 02-18-2022 Platelets LM Ql (Bld) ADEQUATE ADEQ [facility] Blood platelet mean volumeOr dered By: Dr. Connolly on 02-18-2022 Platelet mean volume (Bld) [Entitic vol] 11.9 fL 6.2-12.0 [facility] Determination of erythrocyte mean corpuscular volume (MCV)Ordered By: Dr. Connolly on 02-18-2022 MCV (RBC) [Entitic vol] 91.7 fL 80-94 [facility] Hematocrit Auto (Bld) [Volum e fraction]Ordered By: Dr. Connolly on 02-18-2022 Hematocrit (Bld) [Volume fraction] 42.2 % 40-54 [facility] Laboratory - Chemistry and C hemistry - challengeOrdered By: Dr. Connolly on 02-18-2022 CO2 [Moles/Vol] 25.0 mmol/L 21.0-32.0 [facility] Urea nitrogen/Creatinine [Mass ratio] 14.2 mg/mg 10-20 [facility] Laboratory - Hematology and Cell countsOrdered By: Dr. Connolly on 02-18-2022 Erythrocyte distribution width (RBC) [Entitic vol] 51.9 fL 35.1-43.9 [facility] Erythrocyte distribution width (RBC) [Ratio] 15.3 % 11.6-14.6 [facility] Immature granulocytes/100 WBC (Bld) 0.400 % 0.0-0.9 [facility] Comment on above: IG% - Immature Granu locytes (promyelocytes, myelocytes and metamyelocytes) > 1% indicates that a LEFT SHIFT is Present. MCH (RBC) [Entitic mass] 30.0 pg 27.0-32.0 [facility] Nucleated RBC/100 WBC (Bld) [Ratio] 0 % 0-5 [facility] [Mass/Vol]Or dered By: Dr. Connolly on 02-18-2022 MCHC (RBC) [Mass/Vol] 32.7 g/dL 32-36 [facility] No Panel InformationOrdered By: Dr. Connolly on 02-18-2022 Estimated Creatinine Clearance Calc 54.07 ml/min [facility] Estimated GFR (MDRD) Amer 76 mL/min >60 [facility] Comment on above: GFR Calc Estimated GFR (MDRD) Non-Af Amer 62 mL/min >60 [facility] Comment on above: Non- GFR Calc Platelets bldOrdered By: Dr. Connolly on 02-18-2022 Platelets (Bld) [#/Vol] 139 10*3/uL 150-450 [facility] RBC morphologyOrdered By: Dr José Connolly on 02-18-2022 RBC morphology finding Nom (Bld) NORM C+C NORMAL NORM C&C [facility] Serum or plasma calcium mey urement (mass/volume)Ordered By: Dr. Connolly on 02-18-2022 Calcium [Mass/Vol] 8.8 mg/dL 8.5-10.1 [facility] Serum or plasma creatinine m easurement (mass/volume)Ordered By: Dr. Connolly on 02-18-2022 Creatinine [Mass/Vol] 1.20 mg/dL 0.70-1.30 [facility] Comment on above: The validity of the calculated GFR & GFRAA in patients over 70 years has not been determined. Clinical correlation is essential. Serum or plasma urea nitroge n measurement (mass/volume)Ordered By: Dr. Connolly on 02-18-2022 Urea nitrogen [Mass/Vol] 17 mg/dL 7-18 [facility] Thin prep Papanicolaou smear with manual screeningOrdered By: Dr. Connolly on 02-18-2022 Thin prep Papanicolaou smear with manual screening 7 5-15 [facility] Laboratory - Chemistry and C hemistry - challengeon 02-14-2022 Cobalamin (Vitamin B12) [Mass/Vol] 427 pg/mL 211-911 [facility] Work Phone: No Panel Informationon 02-14 Free Lambda Light Chains, Quant 15.3 mg/L 5.7-26.3 [facility] Work Phone: Whole Blood Vitamin B1 Level 131.9 nmol/L 66.5-200.0 [facility] Work Phone: Comment on above: Performed at: [address] [id number] Director: Rich England PhD, Phone: [phone] at: [address] [id number] Director: Jw Hernandez MD, Phone: [phone] Serum immunoglobulin kappa l ight chains/immunoglobulin lambda light chains mass ratioon 02-14-2022 Immunoglobulin light chains.kappa/Immunoglobu ravi light chains.lambda (S) [Mass ratio] 1.84 0.26-1.65 [facility] Work Phone: Serum or plasma calcitriol m easurement (mass/volume)on 02-14-2022 1,25-dihydroxyvitamin D3 [Mass/Vol] 35.7 pg/mL 24.8-81.5 [facility] Work Phone: Comment on above: Please note refere nce interval changePerformed at: [employer] [address] [id number] Director: Jw Hernandez MD, Phone: [phone] Serum or plasma folate measu rement (mass/volume)on 02-14-2022 Folate [Mass/Vol] 9.20 ng/mL 3.1-55.4 [facility] Work Phone: Serum or plasma immunoglobul in kappa light chains measurement (mass/volume)on 02-14-2022 Immunoglobulin light chains.kappa [Mass/Vol] 28.2 mg/L 3.3-19.4 [facility] Work Phone: Basophil percentageOrdered B y: Dr. Velasquez on 02-08-2022 Bilirubin [Mass/Vol] 0.70 mg/dL 0.20-1.00 [facility] Comment on above: For patients on eltr ombopag therapy, use of Dimension [place] TBIL is not recommended. Protein [Mass/Vol] 6.8 g/dL 6.4-8.2 [facility] Basophil percentageon 2021 Chloride [Moles/Vol] 108 mmol/L 98-107 [facility] Work Phone: Glucose [Mass/Vol] 90 mg/dL 74-106 [facility] Work Phone: Potassium [Moles/Vol] 3.9 mmol/L 3.5-5.1 [facility] Work Phone: Sodium [Moles/Vol] 144 mmol/L 136-145 [facility] Work Phone: WBC (Bld) [#/Vol] 5.8 10*3/uL 4.4-11.0 [facility] Work Phone: Blood erythrocytes count (nu mber/volume)on 02-08-2022 RBC (Bld) [#/Vol] 5.06 10*6/uL 4.6-6.2 [facility] Work Phone: Blood hemoglobin measurement (mass/volume)on 02-08-2022 Hemoglobin (Bld) [Mass/Vol] 15.1 g/dL 13.0-16.5 [facility] Work Phone: Blood platelet mean volumeon 02-08-2022 Platelet mean volume (Bld) [Entitic vol] 12.3 fL 6.2-12.0 [facility] Work Phone: Determination of erythrocyte mean corpuscular volume (MCV)on 02-08-2022 MCV (RBC) [Entitic vol] 91.5 fL 80-94 [facility] Work Phone: Direct bilirubinOrdered By: Dr. Velasquez on 02-08-2022 Bilirubin.direct [Mass/Vol] 0.19 mg/dL 0.00-0.30 [facility] Hematocrit Auto (Bld) [Volum e fraction]on 02-08-2022 Hematocrit (Bld) [Volume fraction] 46.3 % 40-54 [facility] Work Phone: INR in Blood by Coagulation assayOrdered By: Dr. Velasquez on 02-08-2022 INR Coag (Bld) [Relative time] 1.2 {INR} [facility] Laboratory - Chemistry and C hemistry - challengeOrdered By: Dr. Velasquez on 02-08-2022 ALP [Catalytic activity/Vol] 107 U/L 45-117 [facility] ALT [Catalytic activity/Vol] 9 U/L 16-61 [facility] Globulin (S) [Mass/Vol] 3.4 g/dL 2.2-4.2 [facility] Laboratory - Chemistry and C hemistry - challengeon 02-08-2022 CO2 [Moles/Vol] 31.0 mmol/L 21.0-32.0 [facility] Work Phone: Urea nitrogen/Creatinine [Mass ratio] 15.6 mg/mg 10-20 [facility] Work Phone: Laboratory - Chemistry and C hemistry - challengeOrdered By: Dr. Murray on 02-08-2022 Free T4 [Mass/Vol] 0.80 ng/dL 0.76-1.46 [facility] Laboratory - CoagulationOrde red By: Dr. Velasquez on 02-08-2022 aPTT Coag (Bld) [Time] 31.7 s 24.1-36.2 [facility] PT Coag (PPP) [Time] 14.5 s 11.7-14.9 [facility] Laboratory - Hematology and Cell countson 02-08-2022 Erythrocyte distribution width (RBC) [Entitic vol] 52.8 fL 35.1-43.9 [facility] Work Phone: Erythrocyte distribution width (RBC) [Ratio] 15.8 % 11.6-14.6 [facility] Work Phone: MCH (RBC) [Entitic mass] 29.8 pg 27.0-32.0 [facility] Work Phone: MCHC Auto (RBC) [Mass/Vol]on 02-08-2022 MCHC (RBC) [Mass/Vol] 32.6 g/dL 32-36 [facility] Work Phone: No Panel Informationon 02-08 Estimated GFR (MDRD) Amer 97 mL/min >60 [facility] Work Phone: Comment on above: GFR Calc Estimated GFR (MDRD) Non-Af Amer 80 mL/min >60 [facility] Work Phone: Comment on above: Non- GFR Calc No Panel InformationOrdered By: Dr. Murray on 02-08-2022 Free Triiodothyronine (T3) pg/dL 2.3 pg/mL 2.18-3.98 [facility] No Panel InformationOrdered By: Dr. Velasquez on 02-08-2022 Thyroid Stimulating Hormone (TSH) 1.02 uIU/mL 0.358-3.74 [facility] Platelets bldon 02-08-2022 Platelets (Bld) [#/Vol] 173 10*3/uL 150-450 [facility] Work Phone: Serum or plasma albumin mey urement (mass/volume)Ordered By: Dr. Velasquez on 02-08-2022 Albumin [Mass/Vol] 3.4 g/dL 3.2-5.0 [facility] Serum or plasma calcium mey urement (mass/volume)on 02-08-2022 Calcium [Mass/Vol] 9.5 mg/dL 8.5-10.1 [facility] Work Phone: Serum or plasma creatinine m easurement (mass/volume)on 02-08-2022 Creatinine [Mass/Vol] 0.96 mg/dL 0.70-1.30 [facility] Work Phone: Comment on above: The validity of the calculated GFR & GFRAA in patients over 70 years has not been determined. Clinical correlation is essential. Serum or plasma urea nitroge n measurement (mass/volume)on 02-08-2022 Urea nitrogen [Mass/Vol] 15 mg/dL 7-18 [facility] Work Phone: Thin prep Papanicolaou smear with manual screeningOrdered By: Dr. Velasquez on 02-08-2022 Thin prep Papanicolaou smear with manual screening 12 U/L 15-37 [facility] Thin prep Papanicolaou smear with manual screeningon 02-08-2022 Thin prep Papanicolaou smear with manual screening 5 5-15 [facility] Work Phone: Basophil percentageon 2021 Basophil percentage < 0.9 mg/dL 0.70-1.30 [facility] Work Phone: No Panel Informationon 01-06 Bedside Estimated GFR (eGFR) > 60.0000 mL/min >60 [facility] Work Phone: Laboratory - Chemistry and C hemistry - challengeon 01-03-2022 Free T4 [Mass/Vol] 0.91 ng/dL 0.76-1.46 [facility] Work Phone: No Panel Informationon 01-03 Free Triiodothyronine (T3) pg/dL 2.4 pg/mL 2.18-3.98 [facility] Work Phone: Thyroid Stimulating Hormone (TSH) 0.39 uIU/mL 0.358-3.74 [facility] Work Phone: Laboratory - Chemistry and C hemistry - challengeon 11-15-2021 Free T4 [Mass/Vol] 1.27 ng/dL 0.76-1.46 [facility] Work Phone: No Panel Informationon 11-15 Free Triiodothyronine (T3) pg/dL 3.2 pg/mL 2.18-3.98 [facility] Work Phone: Thyroid Stimulating Hormone (TSH) < 0.01 uIU/mL 0.358-3.74 [facility] Work Phone: Absolute lymphocyte counton 11-14-2021 Lymphocytes Auto (Unsp spec) [#/Vol] 0.95 10*3/uL 0.83-4.51 [facility] Work Phone: Basophil percentageon 2021 Basophils/100 WBC (Bld) 0.6 % 0-1 [facility] Work Phone: Bilirubin [Mass/Vol] 0.60 mg/dL 0.20-1.00 [facility] Work Phone: Comment on above: For patients on eltr ombopag therapy, use of Dimension [place] TBIL is not recommended. Chloride [Moles/Vol] 109 mmol/L 98-107 [facility] Work Phone: Eosinophils/100 WBC (Bld) 1.9 % 0-5 [facility] Work Phone: Glucose [Mass/Vol] 97 mg/dL 74-106 [facility] Work Phone: Lactate [Moles/Vol] 1.0 mmol/L 0.4-2.0 [facility] Work Phone: Neutrophils (Bld) [#/Vol] 4.6 10*3/uL 2.0-7.7 [facility] Work Phone: Neutrophils/100 WBC (Bld) 71.6 % 47-70 [facility] Work Phone: Potassium [Moles/Vol] 4.1 mmol/L 3.5-5.1 [facility] Work Phone: Protein [Mass/Vol] 7.3 g/dL 6.4-8.2 [facility] Work Phone: Sodium [Moles/Vol] 140 mmol/L 136-145 [facility] Work Phone: WBC (Bld) [#/Vol] 6.4 10*3/uL 4.4-11.0 [facility] Work Phone: [phone] Blood erythrocytes count (nu mber/volume)on 11-14-2021 RBC (Bld) [#/Vol] 5.40 10*6/uL 4.6-6.2 [facility] Work Phone: Blood hemoglobin measurement (mass/volume)on 11-14-2021 Hemoglobin (Bld) [Mass/Vol] 15.8 g/dL 13.0-16.5 [facility] Work Phone: Blood lymphocytes/100 leukoc yteson 11-14-2021 Lymphocytes/100 WBC (Bld) 14.8 % 19-41 [facility] Work Phone: Blood monocytes/100 leukocyt eson 11-14-2021 Monocytes/100 WBC (Bld) 10.8 % 0-10 [facility] Work Phone: Blood platelet mean volumeon 11-14-2021 Platelet mean volume (Bld) [Entitic vol] 12.2 fL 6.2-12.0 [facility] Work Phone: Determination of erythrocyte mean corpuscular volume (MCV)on 11-14-2021 MCV (RBC) [Entitic vol] 88.5 fL 80-94 [facility] Work Phone: Hematocrit Auto (Bld) [Volum e fraction]on 11-14-2021 Hematocrit (Bld) [Volume fraction] 47.8 % 40-54 [facility] Work Phone: Laboratory - Chemistry and C hemistry - challengeon 11-14-2021 ALP [Catalytic activity/Vol] 111 U/L 45-117 [facility] Work Phone: ALT [Catalytic activity/Vol] 17 U/L 16-61 [facility] Work Phone: CO2 [Moles/Vol] 27.0 mmol/L 21.0-32.0 [facility] Work Phone: Globulin (S) [Mass/Vol] 3.6 g/dL 2.2-4.2 [facility] Work Phone: Urea nitrogen/Creatinine [Mass ratio] 19.9 mg/mg 10-20 [facility] Work Phone: Laboratory - Hematology and Cell countson 11-14-2021 Erythrocyte distribution width (RBC) [Entitic vol] 45.0 fL 35.1-43.9 [facility] Work Phone: Erythrocyte distribution width (RBC) [Ratio] 14.1 % 11.6-14.6 [facility] Work Phone: Immature granulocytes/100 WBC (Bld) 0.300 % 0.0-0.9 [facility] Work Phone: Comment on above: IG% - Immature Granu locytes (promyelocytes, myelocytes and metamyelocytes) > 1% indicates that a LEFT SHIFT is Present. MCH (RBC) [Entitic mass] 29.3 pg 27.0-32.0 [facility] Work Phone: Nucleated RBC/100 WBC (Bld) [Ratio] 0 % 0-5 [facility] Work Phone: MCHC Auto (RBC) [Mass/Vol]on 11-14-2021 MCHC (RBC) [Mass/Vol] 33.1 g/dL 32-36 [facility] Work Phone: No Panel Informationon 11-14 Estimated Creatinine Clearance Calc 76.34 ml/min [facility] Work Phone: Estimated GFR (MDRD) Amer 112 mL/min >60 [facility] Work Phone: Comment on above: GFR Calc Estimated GFR (MDRD) Non-Af Amer 93 mL/min >60 [facility] Work Phone: Comment on above: Non- GFR Calc Platelets bldon 11-14-2021 Platelets (Bld) [#/Vol] 102 10*3/uL 150-450 [facility] Work Phone: Serum or plasma albumin mey urement (mass/volume)on 11-14-2021 Albumin [Mass/Vol] 3.7 g/dL 3.2-5.0 [facility] Work Phone: Serum or plasma albumin/glob ulin mass ratioon 11-14-2021 Albumin/Globulin [Mass ratio] 1.0 {ratio} 0.9-2.4 [facility] Work Phone: Serum or plasma calcium mey urement (mass/volume)on 11-14-2021 Calcium [Mass/Vol] 9.6 mg/dL 8.5-10.1 [facility] Work Phone: Serum or plasma creatinine m easurement (mass/volume)on 11-14-2021 Creatinine [Mass/Vol] 0.85 mg/dL 0.70-1.30 [facility] Work Phone: Comment on above: The validity of the calculated GFR & GFRAA in patients over 70 years has not been determined. Clinical correlation is essential. Serum or plasma urea nitroge n measurement (mass/volume)on 11-14-2021 Urea nitrogen [Mass/Vol] 17 mg/dL 7-18 [facility] Work Phone: Thin prep Papanicolaou smear with manual screeningon 11-14-2021 Thin prep Papanicolaou smear with manual screening 14 U/L 15-37 [facility] Work Phone: Thin prep Papanicolaou smear with manual screening 4 5-15 [facility] Work Phone: Basophil percentageon 2021 Chloride [Moles/Vol] 109 mmol/L 98-107 [facility] Work Phone: Cholesterol [Mass/Vol] 94 mg/dL <200 [facility] Work Phone: Comment on above: <200 mg/dL Desirable 200-240 mg/dL Borderline >240 mg/dL High Risk Glucose [Mass/Vol] 89 mg/dL 74-106 [facility] Work Phone: Potassium [Moles/Vol] 3.7 mmol/L 3.5-5.1 [facility] Work Phone: Sodium [Moles/Vol] 141 mmol/L 136-145 [facility] Work Phone: Triglyceride [Mass/Vol] 70 mg/dL <199 [facility] Work Phone: Comment on above: The drugs N-Acetylcy steine and Metamizole may falsely depress this assay.Serum Triglycerides Reference Interval Normal <150 mg/dL Borderline high 150 - 199 mg/dL High 200 - 499 mg/dL Very High > or = 500 mg/dL Glucose Glucometer (BldC) [M ass/Vol]on 10-19-2021 Glucose [Mass/Vol] 90 mg/dL 74-106 [facility] Work Phone: Comment on above: MANAGEMENT OF PATIEN T CARE PER NURSING PROTOCOL Laboratory - Chemistry and C hemistry - challengeon 10-19-2021 CO2 [Moles/Vol] 25.0 mmol/L 21.0-32.0 [facility] Work Phone: Urea nitrogen/Creatinine [Mass ratio] 17.0 mg/mg 10-20 [facility] Work Phone: No Panel Informationon 10-19 Estimated Creatinine Clearance Calc 64.89 ml/min [facility] Work Phone: Estimated GFR (MDRD) Amer 140 mL/min >60 [facility] Work Phone: Comment on above: GFR Calc Estimated GFR (MDRD) Non-Af Amer 115 mL/min >60 [facility] Work Phone: Comment on above: Non- GFR Calc Thyroid Stimulating Hormone (TSH) < 0.01 uIU/mL 0.358-3.74 [facility] Work Phone: Serum or plasma calcium mey urement (mass/volume)on 10-19-2021 Calcium [Mass/Vol] 9.1 mg/dL 8.5-10.1 [facility] Work Phone: Serum or plasma cholesterol in HDL measurement (mass/volume)on 10-19-2021 Cholesterol in HDL [Mass/Vol] 35 mg/dL >40 [facility] Work Phone: Comment on above: The drugs N-Acetylcy steine and Metamizole may falsely depress this assay. Reference Range HDL <40 mg/dL Low HDL Cholesterol HDL >or= 60 mg/dL High HDL Cholesterol Serum or plasma cholesterol in VLDL measurement (mass/volume)on 10-19-2021 Cholesterol in VLDL [Mass/Vol] 14 mg/dL 5-40 [facility] Work Phone: Serum or plasma creatinine m easurement (mass/volume)on 10-19-2021 Creatinine [Mass/Vol] 0.71 mg/dL 0.70-1.30 [facility] Work Phone: Comment on above: The validity of the calculated GFR & GFRAA in patients over 70 years has not been determined. Clinical correlation is essential. Serum or plasma low density lipoprotein (LDL) cholesterol measurement (mass/volume)on 10-19-2021 Cholesterol in LDL [Mass/Vol] 45 mg/dL 0-130 [facility] Work Phone: Serum or plasma urea nitroge n measurement (mass/volume)on 10-19-2021 Urea nitrogen [Mass/Vol] 12 mg/dL 7-18 [facility] Work Phone: Thin prep Papanicolaou smear with manual screeningon 10-19-2021 Thin prep Papanicolaou smear with manual screening 7 5-15 [facility] Work Phone: Whole blood hemoglobin A1c/t otal hemoglobin ratio (mass fraction)on 10-19-2021 HbA1c (Bld) [Mass fraction] 5.0 % 3.8-5.6 [facility] Work Phone: Comment on above: Normal < 5.7 % Predi abetic 5.7 - 6.4 % Diabetic >or= 6.5 % Please note range changes. Absolute lymphocyte counton 10-18-2021 Lymphocytes Auto (Unsp spec) [#/Vol] 0.66 10*3/uL 0.83-4.51 [facility] Work Phone: Basophil percentageon 2021 Basophils/100 WBC (Bld) 0.5 % 0-1 [facility] Work Phone: Chloride [Moles/Vol] 105 mmol/L 98-107 [facility] Work Phone: Eosinophils/100 WBC (Bld) 1.2 % 0-5 [facility] Work Phone: Glucose [Mass/Vol] 125 mg/dL 74-106 [facility] Work Phone: Comment on above: Fasting Glucose resu lt from 100 to 125 mg/dL suggests IMPAIRED HOMEOSTASIS per A.D.A. criteria. Neutrophils (Bld) [#/Vol] 3.1 10*3/uL 2.0-7.7 [facility] Work Phone: Neutrophils/100 WBC (Bld) 72.8 % 47-70 [facility] Work Phone: Potassium [Moles/Vol] 3.7 mmol/L 3.5-5.1 [facility] Work Phone: Sodium [Moles/Vol] 140 mmol/L 136-145 [facility] Work Phone: WBC (Bld) [#/Vol] 4.2 10*3/uL 4.4-11.0 [facility] Work Phone: Blood erythrocytes count (nu mber/volume)on 10-18-2021 RBC (Bld) [#/Vol] 4.76 10*6/uL 4.6-6.2 [facility] Work Phone: Blood hemoglobin measurement (mass/volume)on 10-18-2021 Hemoglobin (Bld) [Mass/Vol] 14.1 g/dL 13.0-16.5 [facility] Work Phone: Blood lymphocytes/100 leukoc yteson 10-18-2021 Lymphocytes/100 WBC (Bld) 15.6 % 19-41 [facility] Work Phone: Blood monocytes/100 leukocyt eson 10-18-2021 Monocytes/100 WBC (Bld) 9.4 % 0-10 [facility] Work Phone: Blood platelet mean volumeon 10-18-2021 Platelet mean volume (Bld) [Entitic vol] 12.8 fL 6.2-12.0 [facility] Work Phone: Determination of erythrocyte mean corpuscular volume (MCV)on 10-18-2021 MCV (RBC) [Entitic vol] 91.0 fL 80-94 [facility] Work Phone: Glucose Glucometer (BldC) [M ass/Vol]on 10-18-2021 Glucose [Mass/Vol] 118 mg/dL 74-106 [facility] Work Phone: Comment on above: MANAGEMENT OF PATIEN T CARE PER NURSING PROTOCOL Hematocrit Auto (Bld) [Volum e fraction]on 10-18-2021 Hematocrit (Bld) [Volume fraction] 43.3 % 40-54 [facility] Work Phone: INR in Blood by Coagulation assayon 10-18-2021 INR Coag (Bld) [Relative time] 1.2 {INR} [facility] Work Phone: Laboratory - Chemistry and C hemistry - challengeon 10-18-2021 CO2 [Moles/Vol] 31.0 mmol/L 21.0-32.0 [facility] Work Phone: Magnesium [Mass/Vol] 2.0 mg/dL 1.6-2.6 [facility] Work Phone: Urea nitrogen/Creatinine [Mass ratio] 17.5 mg/mg 10-20 [facility] Work Phone: Laboratory - Coagulationon 0 10-18-2021 aPTT Coag (Bld) [Time] 30.6 s 24.1-36.2 [facility] Work Phone: PT Coag (PPP) [Time] 14.4 s 11.7-14.9 [facility] Work Phone: Laboratory - Hematology and Cell countson 10-18-2021 Erythrocyte distribution width (RBC) [Entitic vol] 46.6 fL 35.1-43.9 [facility] Work Phone: Erythrocyte distribution width (RBC) [Ratio] 13.7 % 11.6-14.6 [facility] Work Phone: Immature granulocytes/100 WBC (Bld) 0.500 % 0.0-0.9 [facility] Work Phone: Comment on above: IG% - Immature Granu locytes (promyelocytes, myelocytes and metamyelocytes) > 1% indicates that a LEFT SHIFT is Present. MCH (RBC) [Entitic mass] 29.6 pg 27.0-32.0 [facility] Work Phone: Nucleated RBC/100 WBC (Bld) [Ratio] 0 % 0-5 [facility] Work Phone: MCHC Auto (RBC) [Mass/Vol]on 10-18-2021 MCHC (RBC) [Mass/Vol] 32.6 g/dL 32-36 [facility] Work Phone: No Panel Informationon 10-18 Estimated Creatinine Clearance Calc 71.31 ml/min [facility] Work Phone: Estimated GFR (MDRD) Amer 104 mL/min >60 [facility] Work Phone: Comment on above: GFR Calc Estimated GFR (MDRD) Non-Af Amer 86 mL/min >60 [facility] Work Phone: Comment on above: Non- GFR Calc Troponin I High Sensitivity 7 pg/mL 3.0-78.0 [facility] Work Phone: Comment on above: Please Note: New [place] t Units and Gender Specific Reference Ranges. For more information see Policy Stat Procedure [place] High Sensitivity Troponin (TNIH) and attachments. Platelets bldon 10-18-2021 Platelets (Bld) [#/Vol] 164 10*3/uL 150-450 [facility] Work Phone: Serum or plasma calcium mey urement (mass/volume)on 10-18-2021 Calcium [Mass/Vol] 9.1 mg/dL 8.5-10.1 [facility] Work Phone: Serum or plasma creatinine m easurement (mass/volume)on 10-18-2021 Creatinine [Mass/Vol] 0.91 mg/dL 0.70-1.30 [facility] Work Phone: Comment on above: The validity of the calculated GFR & GFRAA in patients over 70 years has not been determined. Clinical correlation is essential. Serum or plasma urea nitroge n measurement (mass/volume)on 10-18-2021 Urea nitrogen [Mass/Vol] 16 mg/dL 7-18 [facility] Work Phone: Thin prep Papanicolaou smear with manual screeningon 10-18-2021 Thin prep Papanicolaou smear with manual screening 4 5-15 [facility] Work Phone: Absolute lymphocyte counton 10-15-2021 Lymphocytes Auto (Unsp spec) [#/Vol] 0.94 10*3/uL 0.83-4.51 [facility] Work Phone: Basophil percentageon 2021 Basophils/100 WBC (Bld) 0.6 % 0-1 [facility] Work Phone: [phone] Chloride [Moles/Vol] 108 mmol/L 98-107 [facility] Work Phone: Eosinophils/100 WBC (Bld) 1.6 % 0-5 [facility] Work Phone: Glucose [Mass/Vol] 108 mg/dL 74-106 [facility] Work Phone: Comment on above: Fasting Glucose resu lt from 100 to 125 mg/dL suggests IMPAIRED HOMEOSTASIS per A.D.A. criteria. Neutrophils (Bld) [#/Vol] 3.4 10*3/uL 2.0-7.7 [facility] Work Phone: Neutrophils/100 WBC (Bld) 67.8 % 47-70 [facility] Work Phone: Potassium [Moles/Vol] 3.2 mmol/L 3.5-5.1 [facility] Work Phone: Sodium [Moles/Vol] 142 mmol/L 136-145 [facility] Work Phone: WBC (Bld) [#/Vol] 5.0 10*3/uL 4.4-11.0 [facility] Work Phone: Blood erythrocytes count (nu mber/volume)on 10-15-2021 RBC (Bld) [#/Vol] 5.49 10*6/uL 4.6-6.2 [facility] Work Phone: Blood hemoglobin measurement (mass/volume)on 10-15-2021 Hemoglobin (Bld) [Mass/Vol] 16.0 g/dL 13.0-16.5 [facility] Work Phone: Blood lymphocytes/100 leukoc yteson 10-15-2021 Lymphocytes/100 WBC (Bld) 18.7 % 19-41 [facility] Work Phone: Blood monocytes/100 leukocyt eson 10-15-2021 Monocytes/100 WBC (Bld) 11.1 % 0-10 [facility] Work Phone: Blood platelet mean volumeon 10-15-2021 Platelet mean volume (Bld) [Entitic vol] 11.1 fL 6.2-12.0 [facility] [place] Work Phone: Determination of erythrocyte mean corpuscular volume (MCV)on 10-15-2021 MCV (RBC) [Entitic vol] 89.4 fL 80-94 [facility] Work Phone: Hematocrit Auto (Bld) [Volum e fraction]on 10-15-2021 Hematocrit (Bld) [Volume fraction] 49.1 % 40-54 [facility] [place] Work Phone: Laboratory - Chemistry and C hemistry - challengeon 10-15-2021 CO2 [Moles/Vol] 30.0 mmol/L 21.0-32.0 [facility] [place] Work Phone: Urea nitrogen/Creatinine [Mass ratio] 13.7 mg/mg 10-20 [facility] [place] Work Phone: Laboratory - Hematology and Cell countson 10-15-2021 Erythrocyte distribution width (RBC) [Entitic vol] 45.8 fL 35.1-43.9 [facility] [place] Work Phone: Erythrocyte distribution width (RBC) [Ratio] 13.9 % 11.6-14.6 [facility] [place] Work Phone: Immature granulocytes/100 WBC (Bld) 0.200 % 0.0-0.9 [facility] [place] Work Phone: Comment on above: IG% - Immature Granu locytes (promyelocytes, myelocytes and metamyelocytes) > 1% indicates that a LEFT SHIFT is Present. MCH (RBC) [Entitic mass] 29.1 pg 27.0-32.0 [facility] [place] Work Phone: Nucleated RBC/100 WBC (Bld) [Ratio] 0 % 0-5 [facility] [place] Work Phone: MCHC Auto (RBC) [Mass/Vol]on 10-15-2021 MCHC (RBC) [Mass/Vol] 32.6 g/dL 32-36 [facility] Work Phone: No Panel Informationon 10-15 Estimated Creatinine Clearance Calc 73.74 ml/min [facility] [place] Work Phone: Estimated GFR (MDRD) Amer 109 mL/min >60 [facility] [place] Work Phone: Comment on above: GFR Calc Estimated GFR (MDRD) Non-Af Amer 90 mL/min >60 [facility] [place] Work Phone: Comment on above: Non- GFR Calc Thyroid Stimulating Hormone (TSH) < 0.01 uIU/mL 0.358-3.74 [facility] [place] Work Phone: Troponin I High Sensitivity 12 pg/mL 3.0-78.0 [facility] [place] Work Phone: Comment on above: Please Note: New [place] Units and Gender Specific Reference Ranges. For more information see Policy Stat Procedure [place] High Sensitivity Troponin (TNIH) and attachments. Platelets bldon 10-15-2021 Platelets (Bld) [#/Vol] 151 10*3/uL 150-450 [facility] [place] Work Phone: Serum or plasma calcium mey urement (mass/volume)on 10-15-2021 Calcium [Mass/Vol] 9.9 mg/dL 8.5-10.1 [facility] Work Phone: Serum or plasma creatinine m easurement (mass/volume)on 10-15-2021 Creatinine [Mass/Vol] 0.88 mg/dL 0.70-1.30 [facility] Work Phone: Comment on above: The validity of the calculated GFR & GFRAA in patients over 70 years has not been determined. Clinical correlation is essential. Serum or plasma urea nitroge n measurement (mass/volume)on 10-15-2021 Urea nitrogen [Mass/Vol] 12 mg/dL 7-18 [facility] [place] Work Phone: Thin prep Papanicolaou smear with manual screeningon 10-15-2021 Thin prep Papanicolaou smear with manual screening 4 5-15 [facility] [place] Work Phone: CBC W Auto Differential pane l (Bld)on 09-13-2021 Abs Immature Gran <0.03 <0.10 k/uL [facility] Basophils (Bld) [#/Vol] 0.06 10*3/uL <0.11 k/uL [facility] Basophils/100 WBC (Bld) 0.9 % [facility] Differential cell count method Nom (Bld) Auto [facility] Eosinophils (Bld) [#/Vol] 0.17 10*3/uL <0.46 k/uL [facility] Eosinophils/100 WBC (Bld) 2.7 % [facility] Erythrocyte distribution width (RBC) [Ratio] 14.0 % 11.5 - 15.0 % [facility] Hematocrit (Bld) [Volume fraction] 43.2 % 39.0 - 51.0 % [facility] Hemoglobin (Bld) [Mass/Vol] 14.4 g/dL 13.0 - 17.0 g/dL [facility] Immature Gran % 0.3 % [facility] Lymphocytes (Bld) [#/Vol] 0.97 10*3/uL Low 1.00 - 4.00 k/uL [facility] Lymphocytes/100 WBC (Bld) 15.2 % [facility] MCH (RBC) [Entitic mass] 30.6 pg 26. 0 - 34.0 pg [facility] MCHC (RBC) [Mass/Vol] 33.3 g/dL 30.5 - 36.0 g/dL [facility] MCV (RBC) [Entitic vol] 91.7 fL 80.0 - 100.0 fL [facility] Monocytes (Bld) [#/Vol] 0.59 10*3/uL <0.87 k/uL [facility] Monocytes/100 WBC (Bld) 9.3 % [facility] Neutrophils (Bld) [#/Vol] 4.56 10*3/uL 1.45 - 7.50 k/uL [facility] Neutrophils/100 WBC (Bld) 71.6 % [facility] Nucleated RBC (Bld) [#/Vol] 10*3/uL <0.01 k/uL [facility] Nucleated RBC/100 WBC (Bld) [Ratio] 0.0 /100 WBC [facility] Platelet mean volume (Bld) [Entitic vol] 11.5 fL 9.0 - 12.7 fL [facility] Platelets (Bld) [#/Vol] 145 10*3/uL Low 150 - 400 k/uL [facility] RBC (Bld) [#/Vol] 4.71 10*6/uL 4.20 - 6.00 m/uL [facility] WBC (Bld) [#/Vol] 6.37 10*3/uL 3.70 - 11.00 k/uL [facility] Comprehensive metabolic 2000 panelon 09-13-2021 Albumin [Mass/Vol] 4.0 g/dL 3.9 - 4.9 g/dL [facility] ALP [Catalytic activity/Vol] 104 U/L 38 - 113 U/L [facility] ALT [Catalytic activity/Vol] 13 U/L 10 - 54 U/L [facility] Anion gap [Moles/Vol] 6 mmol/L Low 9 - 18 mmol/L [facility] AST [Catalytic activity/Vol] 18 U/L 14 - 40 U/L [facility] Bilirubin [Mass/Vol] 0.5 mg/dL 0.2 - 1 .3 mg/dL [facility] Calcium [Mass/Vol] 9.4 mg/dL 8.5 - 10. 2 mg/dL [facility] Chloride [Moles/Vol] 106 mmol/L High 97 - 10 5 mmol/L [facility] CO2 [Moles/Vol] 30 mmol/L 22 - 30 mmol/L [facility] Creatinine [Mass/Vol] 0.93 mg/dL 0.73 - 1.22 mg/dL [facility] Estimated Glomerular Filtration Rate 85 mL/min/1.73m >=60 mL/min/1.7 3m [facility] Glucose [Mass/Vol] 98 mg/dL 74 - 99 mg/dL [facility] Potassium [Moles/Vol] 4.0 mmol/L 3.7 - 5.1 mmol/L [facility] Protein [Mass/Vol] 6.4 g/dL 6.3 - 8.0 g/dL [facility] Sodium [Moles/Vol] 142 mmol/L 136 - 144 mmol/L [facility] Urea nitrogen [Mass/Vol] 15 mg/dL 9 - 24 mg/dL [facility] No Panel Informationon 09-13 [facility] Absolute lymphocyte counton 08-21-2021 Lymphocytes Auto (Unsp spec) [#/Vol] 0.92 10*3/uL 0.83-4.51 [facility] [place] Work Phone: [phone] Basophil percentageon 2021 Basophils/100 WBC (Bld) 0.5 % 0-1 [facility] Work Phone: Chloride [Moles/Vol] 103 mmol/L 98-107 [facility] [place] Work Phone: Eosinophils/100 WBC (Bld) 1.7 % 0-5 [facility] [place] Work Phone: Glucose [Mass/Vol] 100 mg/dL 74-106 [facility] Work Phone: Comment on above: Fasting Glucose resu lt from 100 to 125 mg/dL suggests IMPAIRED HOMEOSTASIS per A.D.A. criteria. Neutrophils (Bld) [#/Vol] 8.4 10*3/uL 2.0-7.7 [facility] [place] Work Phone: Neutrophils/100 WBC (Bld) 79.6 % 47-70 [facility] [place] Work Phone: [phone] Potassium [Moles/Vol] 3.0 mmol/L 3.5-5.1 [facility] Work Phone: Sodium [Moles/Vol] 137 mmol/L 136-145 [facility] Work Phone: WBC (Bld) [#/Vol] 10.6 10*3/uL 4.4-11.0 [facility] Work Phone: Blood erythrocytes count (nu mber/volume)on 08-21-2021 RBC (Bld) [#/Vol] 4.48 10*6/uL 4.6-6.2 [facility] Work Phone: Blood hemoglobin measurement (mass/volume)on 08-21-2021 Hemoglobin (Bld) [Mass/Vol] 14.0 g/dL 13.0-16.5 [facility] [place] Work Phone: Blood lymphocytes/100 leukoc yteson 08-21-2021 Lymphocytes/100 WBC (Bld) 8.7 % 19-41 [facility] [place] Work Phone: Blood monocytes/100 leukocyt eson 08-21-2021 Monocytes/100 WBC (Bld) 8.9 % 0-10 [facility] Work Phone: Blood platelet mean volumeon 08-21-2021 Platelet mean volume (Bld) [Entitic vol] 10.6 fL 6.2-12.0 [facility] [place] Work Phone: C. difficile DNA YOLANDA+probe Q l (Unsp spec)on 08-21-2021 C. difficile GDH Antigen & Toxins Toxigenic C. difficile [facility] [place] Work Phone: Determination of erythrocyte mean corpuscular volume (MCV)on 08-21-2021 MCV (RBC) [Entitic vol] 86.8 fL 80-94 [facility] Work Phone: Hematocrit Auto (Bld) [Volum e fraction]on 08-21-2021 Hematocrit (Bld) [Volume fraction] 38.9 % 40-54 [facility] [place] Work Phone: Laboratory - Chemistry and C hemistry - challengeon 08-21-2021 CO2 [Moles/Vol] 29.0 mmol/L 21.0-32.0 [facility] [place] Work Phone: Urea nitrogen/Creatinine [Mass ratio] 18.8 mg/mg 10-20 [facility] [place] Work Phone: Laboratory - Hematology and Cell countson 08-21-2021 Erythrocyte distribution width (RBC) [Entitic vol] 43.3 fL 35.1-43.9 [facility] [place] Work Phone: Erythrocyte distribution width (RBC) [Ratio] 13.7 % 11.6-14.6 [facility] [place] Work Phone: Immature granulocytes/100 WBC (Bld) 0.600 % 0.0-0.9 [facility] [place] Work Phone: Comment on above: IG% - Immature Granu locytes (promyelocytes, myelocytes and metamyelocytes) > 1% indicates that a LEFT SHIFT is Present. MCH (RBC) [Entitic mass] 31.3 pg 27.0-32.0 [facility] [place] Work Phone: Nucleated RBC/100 WBC (Bld) [Ratio] 0 % 0-5 [facility] [place] Work Phone: MCHC Auto (RBC) [Mass/Vol]on 08-21-2021 MCHC (RBC) [Mass/Vol] 36.0 g/dL 32-36 [facility] Work Phone: No Panel Informationon 08-21 Estimated Creatinine Clearance Calc 67.59 ml/min [facility] [place] Work Phone: Estimated GFR (MDRD) Amer 99 mL/min >60 [facility] [place] Work Phone: Comment on above: GFR Calc Estimated GFR (MDRD) Non-Af Amer 81 mL/min >60 [facility] [place] Work Phone: Comment on above: Non- GFR Calc Platelets bldon 08-21-2021 Platelets (Bld) [#/Vol] 185 10*3/uL 150-450 [facility] [place] Work Phone: Serum or plasma calcium mey urement (mass/volume)on 08-21-2021 Calcium [Mass/Vol] 9.4 mg/dL 8.5-10.1 [facility] Work Phone: Serum or plasma creatinine m easurement (mass/volume)on 08-21-2021 Creatinine [Mass/Vol] 0.96 mg/dL 0.70-1.30 [facility] Work Phone: Comment on above: The validity of the calculated GFR & GFRAA in patients over 70 years has not been determined. Clinical correlation is essential. Serum or plasma urea nitroge n measurement (mass/volume)on 08-21-2021 Urea nitrogen [Mass/Vol] 18 mg/dL 7-18 [facility] [place] Work Phone: Thin prep Papanicolaou smear with manual screeningon 08-21-2021 Thin prep Papanicolaou smear with manual screening 5 5-15 [facility] [place] Work Phone: Absolute lymphocyte counton 07-28-2021 Lymphocytes Auto (Unsp spec) [#/Vol] 0.82 10*3/uL 0.83-4.51 [facility] [place] Work Phone: Basophil percentageon 2021 Basophils/100 WBC (Bld) 0.4 % 0-1 [facility] Work Phone: Chloride [Moles/Vol] 104 mmol/L 98-107 [facility] [place] Work Phone: Eosinophils/100 WBC (Bld) 3.6 % 0-5 [facility] [place] Work Phone: Glucose [Mass/Vol] 83 mg/dL 74-106 [facility] Work Phone: Neutrophils (Bld) [#/Vol] 5.3 10*3/uL 2.0-7.7 [facility] [place] Work Phone: Neutrophils/100 WBC (Bld) 74.2 % 47-70 [facility] [place] Work Phone: Potassium [Moles/Vol] 3.4 mmol/L 3.5-5.1 [facility] Work Phone: Sodium [Moles/Vol] 137 mmol/L 136-145 [facility] Work Phone: WBC (Bld) [#/Vol] 7.1 10*3/uL 4.4-11.0 [facility] Work Phone: Blood erythrocytes count (nu mber/volume)on 07-28-2021 RBC (Bld) [#/Vol] 4.06 10*6/uL 4.6-6.2 [facility]: Blood hemoglobin measurement (mass/volume)on 07-28-2021 Hemoglobin (Bld) [Mass/Vol] 12.2 g/dL 13.0-16.5 [facility] [place] Work Phone: Blood lymphocytes/100 leukoc yteson 07-28-2021 Lymphocytes/100 WBC (Bld) 11.5 % 19-41 [facility] [place] Work Phone: Blood monocytes/100 leukocyt eson 07-28-2021 Monocytes/100 WBC (Bld) 9.9 % 0-10 [facility] Work Phone: Blood platelet mean volumeon 07-28-2021 Platelet mean volume (Bld) [Entitic vol] 10.8 fL 6.2-12.0 [facility] [place] Work Phone: Determination of erythrocyte mean corpuscular volume (MCV)on 07-28-2021 MCV (RBC) [Entitic vol] 88.2 fL 80-94 [facility] Work Phone: Hematocrit Auto (Bld) [Volum e fraction]on 07-28-2021 Hematocrit (Bld) [Volume fraction] 35.8 % 40-54 [facility] [place] Work Phone: Laboratory - Chemistry and C hemistry - challengeon 07-28-2021 CO2 [Moles/Vol] 29.0 mmol/L 21.0-32.0 [facility] [place] Work Phone: Urea nitrogen/Creatinine [Mass ratio] 21.8 mg/mg 10-20 [facility] [place] Work Phone: Laboratory - Hematology and Cell countson 07-28-2021 Erythrocyte distribution width (RBC) [Entitic vol] 45.0 fL 35.1-43.9 [facility] [place] Work Phone: Erythrocyte distribution width (RBC) [Ratio] 13.9 % 11.6-14.6 [facility] [place] Work Phone: Immature granulocytes/100 WBC (Bld) 0.400 % 0.0-0.9 [facility] [place] Work Phone: Comment on above: IG% - Immature Granu locytes (promyelocytes, myelocytes and metamyelocytes) > 1% indicates that a LEFT SHIFT is Present. MCH (RBC) [Entitic mass] 30.0 pg 27.0-32.0 [facility] [place] Work Phone: Nucleated RBC/100 WBC (Bld) [Ratio] 0 % 0-5 [facility] [place] Work Phone: MCHC Auto (RBC) [Mass/Vol]on 07-28-2021 MCHC (RBC) [Mass/Vol] 34.1 g/dL 32-36 [facility] Work Phone: Comment on above: Delta: 35.9 on [id number] No Panel Informationon 07-28 Estimated Creatinine Clearance Calc 74.58 ml/min [facility] [place] Work Phone: Estimated GFR (MDRD) Amer 109 mL/min >60 [facility] [place] Work Phone: Comment on above: GFR Calc Estimated GFR (MDRD) Non-Af Amer 90 mL/min >60 [facility] [place] Work Phone: Comment on above: Non- GFR Calc Platelets bldon 07-28-2021 Platelets (Bld) [#/Vol] 180 10*3/uL 150-450 [facility] [place] Work Phone: Serum or plasma calcium mey urement (mass/volume)on 07-28-2021 Calcium [Mass/Vol] 9.3 mg/dL 8.5-10.1 [facility] Work Phone: Serum or plasma creatinine m easurement (mass/volume)on 07-28-2021 Creatinine [Mass/Vol] 0.87 mg/dL 0.70-1.30 [facility] Work Phone: Comment on above: The validity of the calculated GFR & GFRAA in patients over 70 years has not been determined. Clinical correlation is essential. Serum or plasma urea nitroge n measurement (mass/volume)on 07-28-2021 Urea nitrogen [Mass/Vol] 19 mg/dL 7-18 [facility] [place] Work Phone: Thin prep Papanicolaou smear with manual screeningon 07-28-2021 Thin prep Papanicolaou smear with manual screening 4 5-15 [facility] [place] Work Phone: Vancomycin troughon 07-27-19 Vancomycin trough [Mass/Vol] 15.8 ug/mL 5.0-15.0 [facility] [place] Work Phone: Comment on above: VANCOMYCIN STANDARED DRUG THERAPY TROUGH LEVEL: 5.0 - 15.0 mg/L VANCOMYCIN HIGH INTENSITY THERAPY TROUGH LEVEL: 15.0 - 20.0 mg/L High Intensity therapy recommended for serious lifethreatening infections include:- Lyjhzaqwbj-Ajjgwsjzwuyg-Vqjllnfvh (Ventilator/Healtcare Associated)-Sepsis PLEASE CONTACT PHARMACY SERVICES (#[id number]) FOR INTERPRETATIONOF RESULTS. Basophil percentageon 2021 Basophil percentage 2.4 mg/dL 2.5-4.9 [facility] Work Phone: Laboratory - Chemistry and C hemistry - challengeon 07-25-2021 Magnesium [Mass/Vol] 1.9 mg/dL 1.6-2.6 [facility] [place] Work Phone: * Body fluid crystals type b y light microscopyon 07-23-2021 Crystals LM Nom (Body fld) See PATH REV [facility] [place] Work Phone: Activated partial thrombopla stin time (aPTT) in platelet poor plasma by coagulation aon 07-23-2021 aPTT Coag (PPP) [Time] 34.0 s 24.1-36.2 suki [facility] Work Phone: Basophil percentageon 2021 Lactate [Moles/Vol] 0.9 mmol/L 0.4-2.0 [facility] Work Phone: Basophil percentage 25-50 SEEN /hpf 0-5 [facility] [place] Work Phone: Bilirubin [Mass/Vol] 1.30 mg/dL 0.20-1.00 [facility] [place] Work Phone: Comment on above: For patients on eltr ombopag therapy, use of Dimension [place] TBIL is not recommended. Protein [Mass/Vol] 6.3 g/dL 6.4-8.2 [facility] Work Phone: Bilirubin Test strip Ql (U)o n 07-23-2021 Bilirubin Ql (U) Negative Negative [facility] [place] Work Phone: Color of Synovial fluidon Color (Syn fld) Red Pale Yellow [facility] [place] Work Phone: Culture, urineon 07-23-2021 Bacteria identified Cx Nom (U) Culture exhibits no growth. [facility] [place] Work Phone: Determination of appearance of synovial fluidon 07-23-2021 Appearance (Syn fld) Turbid CLEAR [facility] [place] Work Phone: Erythrocyte sedimentation ra dick 07-23-2021 ESR (Bld) [Velocity] 12 mm/h 0-20 [facility] [place] Work Phone: INR in Blood by Coagulation assayon 07-23-2021 INR Coag (Bld) [Relative time] 1.3 {INR} [facility] [place] Work Phone: Ketones Test strip Ql (U)on 07-23-2021 Ketones Ql (U) 15 mg/dl Negative [facility] [place] Work Phone: Laboratory - Chemistry and C hemistry - challengeon 07-23-2021 Natriuretic peptide B (Bld) [Mass/Vol] 86.0 pg/mL 0-100 [facility] [place] Work Phone: ALP [Catalytic activity/Vol] 66 U/L 45-117 [facility] [place] Work Phone: ALT [Catalytic activity/Vol] 13 U/L 16-61 [facility] [place] Work Phone: Globulin (S) [Mass/Vol] 3.2 g/dL 2.2-4.2 [facility] Work Phone: Laboratory - Coagulationon 0 07-23-2021 PT Coag (PPP) [Time] 15.6 s 11.7-14.9 [facility] [place] Work Phone: Laboratory - Microbiology an d Antimicrobial susceptibilityon 07-23-2021 SARS-CoV-2 (COVID-19) RNA YOLANDA+probe Ql (Unsp spec) Not detected Not Detect [facility] [place] Work Phone: Comment on above: Normal Reference [...] Nom (Bld) No growth in 5 days. [facility] [place] Work Phone: Mucus LM Ql (Urine sed)on Mucus Ql (Urine sed) 0 SEEN /hpf [facility] Work Phone: Nitrite Test strip Ql (U)on 07-23-2021 Nitrite Ql (U) Negative Negative [facility] [place] Work Phone: No Panel Informationon 07-23 Synovial Fluid Mononuclear WBCs 0.780 10^3/ul [facility] [place] Work Phone: Synovial Fluid Mononuclear WBCs % 2.9 % [facility] [place] Work Phone: Synovial Fluid Polynuclear WBCs 26.250 10^3/uL [facility] [place] Work Phone: [phone] Comment on above: Previous reported re sult: 5.251 10^3/uLEdited by: JOHN on 07/24/21:0714 AMENDED REPORT 07/24/21713 SYBF PMN WBC# previously reported as: 5.251 10^3/uL Synovial Fluid Polynuclear WBCs % 97.1 % [facility] [place] Work Phone: Synovial Fluid Total Cells Counted 27.0400 10^3/uL 0.000-0.00 0 [facility] [place] Work Phone: Comment on above: Previous reported re sult: 5.4070 10^3/uLEdited by: JOHN on 07/24/21:0713 AMENDED REPORT 07/24/[address] previously reported as: 5.4070 H 10^3/uL This is the Total Number of Nucleated Cell Types in the Body Fluid. Troponin I High Sensitivity 9 pg/mL 3.0-78.0 [facility] [place] Work Phone: Comment on above: Please Note: New [place] Units and Gender Specific Reference Ranges. For more information see Policy Stat Procedure [place] High Sensitivity Troponin (TNIH) and attachments. SARS-CoV-2 Antigen (Rapid) [facility] [place] Work Phone: Protein Test strip Ql (U)on 07-23-2021 Protein Ql (U) 30 mg/dl Negative [facility] [place] Work Phone: Review by pathologiston 07-06 Pathologist review Juan Ramon (Unsp spec) [Interp] May follow [facility] [place] Work Phone: Pathologist review Juan Ramon (Unsp spec) [Interp] Reviewed [facility] [place] Work Phone: Comment on above: Previous reported re sult: Will follow Edited by: GRANT on 07/26/21:1403Negative for malignant cells and crystals.Bloody specimen.David Baxter M.D. 07/26/21 AMENDED REPORT 07/26/21 1403 PATH REV previously reported as: Will follow Serum or plasma C reactive p rotein measurement (mass/volume)on 07-23-2021 CRP [Mass/Vol] 112.00 mg/L 0.0-3.0 [facility] [place] Work Phone: Comment on above: C-Reactive Protein ( CRP) provides useful information for thediagnosis, therapy and monitoring of inflammatory processesand associated diseases. For the evaluation of Relative Riskfor Cardiovascular Disease, a High Sensitivity CRP (HSCRP)should be ordered. Serum or plasma albumin mey urement (mass/volume)on 07-23-2021 Albumin [Mass/Vol] 3.1 g/dL 3.2-5.0 [facility] Work Phone: Serum or plasma albumin/glob ulin mass ratioon 07-23-2021 Albumin/Globulin [Mass ratio] 1.0 {ratio} 0.9-2.4 [facility] [place] Work Phone: Specimen source identificati on of body fluidon 07-23-2021 Specimen source Nom (Body fld) SYNOVIAL [facility] [place] Work Phone: Specimen source Nom (Body fld) KNEE [facility] [place] Work Phone: Squamous epithelial cells de tection in urine sediment by light microscopyon 07-23-2021 Epithelial cells.squamous LM Ql (Urine sed) 0-5 SEEN /hpf 0-5 [facility] [place] Work Phone: Synovial fluid erythrocytes count (number/volume)on 07-23-2021 RBC (Syn fld) [#/Vol] 2.850 10^6/uL 0-0 [facility] [place] Work Phone: Comment on above: Previous reported re sult: 0.570 10^6/uLEdited by: JOHN on 07/24/21:0713 AMENDED REPORT 07/24/21712 SYNOVIAL RBC previously reported as: 0.570 H 10^6/uL Synovial fluid leukocytes co unt (number/volume)on 07-23-2021 WBC (Syn fld) [#/Vol] 27.0400 10^3/uL 0.0 00-0.00 2 [facility] [place] Work Phone: Comment on above: Previous reported re sult: 5.4070 10^3/uLEdited by: JOHN on 07/24/21:0713 AMENDED REPORT 07/24/21712 SYNOVIAL WBC previously reported as: 5.4070 H 10^3/uL Thin prep Papanicolaou smear with manual screeningon 07-23-2021 Thin prep Papanicolaou smear with manual screening 18 U/L 15-37 [facility] [place] Work Phone: Urine blood detectionon 07-06 RBC Ql (U) 10 /ul Negative [facility] [place] Work Phone: RBC Ql (U) 0 SEEN /hpf 0-5 [facility] [place] Work Phone: Urine clarityon 07-23-2021 Clarity (U) Clear Clear [facility] [place] Work Phone: Urine color determinationon 07-23-2021 Color (U) Yellow Yellow [facility] [place] Work Phone: Urine glucose detectionon Glucose Ql (U) Normal mg/dl Normal [facility] [place] Work Phone: Urine leukocyte esterase det ection by dipstickon 07-23-2021 Leukocyte esterase Test strip Ql (U) 500 /ul Negative [facility] [place] Work Phone: Urine pHon 07-23-2021 pH (U) 7.0 [pH] 5.0 - 8.0 [facility] [place] Work Phone: Urine sediment bacteria coun t by microscopy (number/high power field)on 07-23-2021 Bacteria LM.HPF (Urine sed) [#/Area] 0 /[HPF] None Seen [facility] [place] Work Phone: Urine specific gravity measu rementon 07-23-2021 Specific gravity (U) [Rel density] 1.010 1.002-1.03 0 [facility] [place] Work Phone: Urobilinogen Auto test strip Ql (U)on 07-23-2021 Urobilinogen Ql (U) Normal mg/dl Normal [facility] Work Phone: Basophil percentageon 2021 Chloride [Moles/Vol] 105 mmol/L 98-107 [facility] [place] Work Phone: Glucose [Mass/Vol] 100 mg/dL 74-106 [facility] Work Phone: Comment on above: Fasting Glucose resu lt from 100 to 125 mg/dL suggests IMPAIRED HOMEOSTASIS per A.D.A. criteria. Potassium [Moles/Vol] 3.5 mmol/L 3.5-5.1 [facility] Work Phone: Sodium [Moles/Vol] 138 mmol/L 136-145 [facility] Work Phone: WBC (Bld) [#/Vol] 10.2 10*3/uL 4.4-11.0 [facility] Work Phone: Blood erythrocytes count (nu mber/volume)on 07-22-2021 RBC (Bld) [#/Vol] 4.69 10*6/uL 4.6-6.2 [facility] Work Phone: Blood hemoglobin measurement (mass/volume)on 07-22-2021 Hemoglobin (Bld) [Mass/Vol] 14.5 g/dL 13.0-16.5 [facility] [place] Work Phone: Blood platelet mean volumeon 07-22-2021 Platelet mean volume (Bld) [Entitic vol] 10.2 fL 6.2-12.0 [facility] [place] Work Phone: Determination of erythrocyte mean corpuscular volume (MCV)on 07-22-2021 MCV (RBC) [Entitic vol] 87.4 fL 80-94 [facility] Work Phone: Hematocrit Auto (Bld) [Volum e fraction]on 07-22-2021 Hematocrit (Bld) [Volume fraction] 41.0 % 40-54 [facility] Work Phone: Laboratory - Chemistry and C hemistry - challengeon 07-22-2021 CO2 [Moles/Vol] 28.0 mmol/L 21.0-32.0 [facility] Work Phone: Urea nitrogen/Creatinine [Mass ratio] 18.2 mg/mg 10-20 [facility] Work Phone: Laboratory - Hematology and Cell countson 07-22-2021 Erythrocyte distribution width (RBC) [Entitic vol] 43.8 fL 35.1-43.9 [facility] Work Phone: Erythrocyte distribution width (RBC) [Ratio] 13.7 % 11.6-14.6 [facility] Work Phone: MCH (RBC) [Entitic mass] 30.9 pg 27.0-32.0 [facility] Work Phone: MCHC Auto (RBC) [Mass/Vol]on 07-22-2021 MCHC (RBC) [Mass/Vol] 35.4 g/dL 32-36 [facility] Work Phone: No Panel Informationon 07-22 Estimated Creatinine Clearance Calc 58.99 ml/min [facility] Work Phone: Estimated GFR (MDRD) Amer 84 mL/min >60 [facility] Work Phone: Comment on above: GFR Calc Estimated GFR (MDRD) Non-Af Amer 69 mL/min >60 [facility] Work Phone: Comment on above: Non- GFR Calc Platelets bldon 07-22-2021 Platelets (Bld) [#/Vol] 138 10*3/uL 150-450 [facility] Work Phone: Serum or plasma calcium mey urement (mass/volume)on 07-22-2021 Calcium [Mass/Vol] 8.5 mg/dL 8.5-10.1 [facility] Work Phone: Serum or plasma creatinine m easurement (mass/volume)on 07-22-2021 Creatinine [Mass/Vol] 1.10 mg/dL 0.70-1.30 [facility] Work Phone: Comment on above: The validity of the calculated GFR & GFRAA in patients over 70 years has not been determined. Clinical correlation is essential. Serum or plasma urea nitroge n measurement (mass/volume)on 07-22-2021 Urea nitrogen [Mass/Vol] 20 mg/dL 7-18 [facility] Work Phone: Thin prep Papanicolaou smear with manual screeningon 07-22-2021 Thin prep Papanicolaou smear with manual screening 5 5-15 [facility] Work Phone: Glucose Glucometer (BldC) [M ass/Vol]on 07-21-2021 Glucose [Mass/Vol] 99 mg/dL 70-110 [facility] Work Phone: Comment on above: MANAGEMENT OF PATIEN T CARE PER NURSING PROTOCOL Absolute lymphocyte counton 07-10-2021 Lymphocytes Auto (Unsp spec) [#/Vol] 0.91 10*3/uL 0.83-4.51 [facility] Work Phone: Basophil percentageon 2021 Basophils/100 WBC (Bld) 0.7 % 0-1 [facility] Work Phone: Eosinophils/100 WBC (Bld) 1.3 % 0-5 [facility] Work Phone: Neutrophils (Bld) [#/Vol] 5.9 10*3/uL 2.0-7.7 [facility] Work Phone: Neutrophils/100 WBC (Bld) 78.7 % 47-70 [facility] Work Phone: Blood lymphocytes/100 leukoc yteson 07-10-2021 Lymphocytes/100 WBC (Bld) 12.1 % 19-41 [facility] Work Phone: Blood monocytes/100 leukocyt eson 07-10-2021 Monocytes/100 WBC (Bld) 6.9 % 0-10 [facility] Work Phone: Laboratory - Chemistry and C hemistry - challengeon 07-10-2021 Magnesium [Mass/Vol] 2.0 mg/dL 1.6-2.3 [facility] Work Phone: Comment on above: Performed at: [place] [id number] Director: Rich England PhD, Phone: [phone] Laboratory - Hematology and Cell countson 07-10-2021 Immature granulocytes/100 WBC (Bld) 0.300 % 0.0-0.9 [facility] Work Phone: Comment on above: IG% - Immature Granu locytes (promyelocytes, myelocytes and metamyelocytes) > 1% indicates that a LEFT SHIFT is Present. Nucleated RBC/100 WBC (Bld) [Ratio] 0 % 0-5 [facility] Work Phone: No Panel Informationon 07-10 Nasal Screen MRSA/MSSA [facility] Work Phone: Serum or plasma albumin mey urement (mass/volume)on 07-10-2021 Albumin [Mass/Vol] 3.6 g/dL 3.2-5.0 [facility] Work Phone: HISTORY PHYSICALon HISTORY PHYSICAL HNO ID: [id number] Author: Douglas Mortensen Service: Interventional Cardiology Author [...] attached. SIGNATURE: Douglas Mortensen MD PATIENT NAME: Rohan Alvarenga Corwin Castillo DATE: August 20, 2020 TIME: 10:56 AM [facility] 08-12-2020 [facility] Telephone (AGCARDPOB ) ----- ROHAN OLIVIA JR. ([id number]) 1945 M Date Time Provider Department 08/12/20 DOUGLAS MORTENSEN [facility] During your visit today, we recorded the following information about you: Skyler Estrella RN 08/12/2020 11:13 AM Signed Patient contacted office and stated that he lives one hour from [facility]. Patient is going to get PCP to order COVID test at [facility] and will come for his cardiac catheterization with a hard copy of results. SAADIA Dunne RN 08/13/2020 2:06 PM Signed Received a call from patient who is going to [facility] for COVID testing on 08/18/20, scheduled for catheterization on 08/20/20. Patient is aware that he needs to come to the cardiac catheterization lab with a written copy of the negative results. SAADIA Dunne 08/13/2020 2:34 PM Signed Cancelled for [place] testing. Pascual Davila August 13, 2020 2:34 [...] Status:Closed by SKYLER ESTRELLA RN on 08/13/20 [facility]2020 [facility] Telephone ([facility] ----- ROHAN OLIVIA JR. ([id number]) 1945 M Date Time Provider Department 08/11/20 DOUGLAS MORTENSEN [facility] During your visit today, we recorded the following information about you: Gianna Ayala [facility] 08/11/2020 11:46 AM Signed Schedule LHC for 08/20/[address] Balbina Stern LPN 08/11/2020 1:52 PM Signed Patient scheduled for left heart cath today, with Dr Mortensen on 08/20/2020. Instructions reviewed. Questions answered. Patient verbalized understanding. Instructions were as follows: -Arrive to [facility] Entrance 08/20/2020 at time assigned by [facility] semiconductor lab technician staff in phone call 08/19/2020 PM.. [...] someone drive you home from your procedure. -semiconductor lab technician policy is pt not be alone first evening Office phone number provided for questions or concerns. Pascual Davila 08/12/2020 9:59 AM Signed Scheduled. Left message on [place] with details. Pascual Davila August 12, 2020 9:58 AM Allergies As of Date: 08/11/2020 (No Known Allergies) Date Reviewed: 08/10/2020 Reviewed by: Douglas Mortensen - Fully Assessed Reason for Visit: Future Appointment [256] Primary Visit Diagnosis:Pre-procedure lab exam [Z01.812] Order(s):CBC [SQCBC] Order #: [id number] FUTURE BASIC METABOLIC PNL [SQBMP] Order #: [id number] FUTURE Prescriptions as of 08/11/2020 Sig: PAROXETINE [...] Encounter Status:Closed by PASCUAL DAVILA on 08/12/20 [facility] Office Visit: update H&P for c-scope RCon 01-05-2017 Dietary management education, guidance, and counseling (procedure) yes Invalid Interpretation Code [facility] Work Phone: Documentation of current medications (procedure) Done Invalid Interpretation Code [facility] Work Phone: Fall risk assessment No Invalid Interpretation Code [facility] Work Phone: Tobacco smoking status NHIS Never Invalid Interpretation Code [facility] Work Phone: Tobacco use CPHS Former smoker Invalid Interpretation Code [facility] Work Phone: Office Visit: update H&P for c-scope RCon 09-28-2014 Colonoscopy (procedure) Abnormal Invalid Interpretation Code [facility] Work Phone: C. difficile DNA YOLANDA+probe Q l (Unsp spec) C. difficile [facility] Antigen & Toxins Toxigenic C. difficile [facility] Work Phone: Culture, urine Bacteria identified Cx Nom (U) Culture exhibits no growth. [facility] Work Phone: Laboratory - Microbiology an d Antimicrobial susceptibility Bacteria identified Cx Nom (Bld) No growth in 5 days. [facility] Work Phone: No Panel Information Nasal Screen MRSA/MSSA [facility] Work Phone: SARS-CoV-2 Antigen (Rapid) [facility] Work Phone: Vital Signs Date Time Vital Sign Value Performing Clinician Facility 12-20-2024 12:56-0400 Body mass index (BMI) [Ratio] 28.09 kg/m2 Chris Pearson Jr., MD Work Phone: [facility] 12-20-2024 12:56-0400 Body weight 86.27 kg Chris Pearson Jr., MD Work Phone: [facility] 12-20-2024 12:56-0400 Diastolic blood pressure 64 mm[Hg] Chris Pearson Jr., MD Work Phone: [facility] 12-20-2024 12:56-0400 Heart rate 73 /min Chris Pearson Jr., MD Work Phone: [facility] 12-20-2024 12:56-0400 Respiratory rate 16 /min Chris Pearson Jr., MD Work Phone: [facility] 12-20-2024 12:56-0400 SaO2% (BldA) [Mass fraction] 96 % Chris Pearson Jr., MD Work Phone: [facility] 12-20-2024 12:56-0400 Systolic blood pressure 110 mm[Hg] Chris Pearson Jr., MD Work Phone: [facility] 11-15-2024 12:18-0400 Diastolic blood pressure 46 mm[Hg] Brandon Cantor MD Work Phone: [facility] 11-15-2024 12:18-0400 Heart rate 56 /min Brandon Cantor MD Work Phone: [facility] 11-15-2024 12:18-0400 Systolic blood pressure 100 mm[Hg] Brandon Cantor MD Work Phone: [facility] 11-15-2024 11:43-0400 Body mass index (BMI) [Ratio] 28.1 kg/m2 Brandon Cantor MD Work Phone: [facility] 11-15-2024 11:43-0400 Body temperature 98.49 [degF] Brandon Cantor MD Work Phone: [facility] 11-15-2024 11:43-0400 Body weight 86.3 kg Brandon Cantor MD Work Phone: [facility] 11-15-2024 11:43-0400 Respiratory rate 16 /min Brandon Cantor MD Work Phone: [facility] 10-18-2024 15:54-0400 Diastolic blood pressure 54 mm[Hg] Brandon Cantor MD Work Phone: [facility] 10-18-2024 15:54-0400 Systolic blood pressure 122 mm[Hg] Brandon Cantor MD Work Phone: [facility] 10-18-2024 14:55-0400 Body height 175.3 cm Brandon Cantor MD Work Phone: [facility] 10-18-2024 14:55-0400 Body mass index (BMI) [Ratio] 28.03 kg/m2 Brandon Cantor MD Work Phone: [facility] 10-18-2024 14:55-0400 Body weight 86.1 kg Brandon Cantor MD Work Phone: [facility] 10-18-2024 14:55-0400 Heart rate 58 /min Brandon Cantor MD Work Phone: [facility] 10-18-2024 14:55-0400 SaO2% (BldA) [Mass fraction] 93 % Brandon Cantor MD Work Phone: [facility] 09-12-2024 14:57-0400 Diastolic blood pressure 49 mm[Hg] Brandon Cantor MD Work Phone: [facility] 09-12-2024 14:57-0400 Heart rate 48 /min Brandon Cantor MD Work Phone: [facility] 09-12-2024 14:57-0400 Systolic blood pressure 87 mm[Hg] Brandon Cantor MD Work Phone: [facility] 09-12-2024 14:50-0400 Body mass index (BMI) [Ratio] 27.61 kg/m2 Brandon Cantor MD Work Phone: [facility] 09-12-2024 14:50-0400 Body temperature 98.49 [degF] Brandon Cantor MD Work Phone: [facility] 09-12-2024 14:50-0400 Body weight 84.8 kg Brandon Cantor MD Work Phone: [facility] 09-10-2024 18:47-0400 Body temperature 97.5 [degF] Dr. Brandon Cantor MD Work Phone: [facility] 09-10-2024 18:47-0400 Diastolic blood pressure 105 mm[Hg] Dr. Brandon Cantor MD Work Phone: [facility] 09-10-2024 18:47-0400 Heart rate 72 /min Dr. Brandon Cantor MD Work Phone: 0(484)192-003754 [place] [address] 09-10-2024 18:47-0400 Respiratory rate 16 /min Dr. Brandon Cantor MD Work Phone: 9(796)384-460833 [place] [address] 09-10-2024 18:47-0400 SaO2% (BldA) [Mass fraction] 98 % Dr. Brandon Cantor MD Work Phone: 9(035)418-087933 [place] [address] 09-10-2024 18:47-0400 Systolic blood pressure 118 mm[Hg] Dr. Brandon Cantor MD Work Phone: 6(520)264-890433 [place] [address] 09-10-2024 14:26-0400 Body height 177.[address] Brandon Cantor MD Work Phone: 7(640)807-641533 [place] [address] 09-10-2024 14:26-0400 Body mass index (BMI) [Ratio] 27.4 kg/m2 Dr. Brandon Cantor MD Work Phone: 3(744)916-539733 [place] [address] 09-10-2024 14:26-0400 Body weight 86.[address] Brandon Cantor MD Work Phone: 4(591)154-036933 [place] [address] 08-16-2024 11:34-0400 Body mass index (BMI) [Ratio] 27.85 kg/m2 Chris Pearson Jr., MD Work Phone: 8(064)634-317529 [place] [address] 08-16-2024 11:34-0400 Body weight 85.55 kg Chris Pearson Jr., MD Work Phone: 7(492)535-806129 [place] [address] 08-16-2024 11:34-0400 Diastolic blood pressure 62 mm[Hg] Chris Pearson Jr., MD Work Phone: 2(085)962-465929 [place] [address] 08-16-2024 11:34-0400 Heart rate 58 /min Chris Pearson Jr., MD Work Phone: 5(709)768-893729 [place] [address] 08-16-2024 11:34-0400 Respiratory rate 16 /min Chris Pearson Jr., MD Work Phone: 8(468)229-940729 [place] [address] 08-16-2024 11:34-0400 SaO2% (BldA) [Mass fraction] 96 % Chris Pearson Jr., MD Work Phone: [facility] 08-16-2024 11:34-0400 Systolic blood pressure 120 mm[Hg] Chris Pearson Jr., MD Work Phone: [facility] 05-17-2024 11:30-0500 Body height 175.3 cm Brandon Cantor MD Work Phone: [facility] 05-17-2024 11:30-0500 Body mass index (BMI) [Ratio] 27.87 kg/m2 Brandon Cantor MD Work Phone: [facility] 05-17-2024 11:30-0500 Body weight 85.6 kg Brandon Cantor MD Work Phone: [facility] 05-17-2024 11:30-0500 Diastolic blood pressure 60 mm[Hg] Brandon Cantor MD Work Phone: [facility] 05-17-2024 11:30-0500 Heart rate 49 /min Brandon Cantor MD Work Phone: [facility] 05-17-2024 11:30-0500 SaO2% (BldA) [Mass fraction] 95 % Brandon Cantor MD Work Phone: [facility] 05-17-2024 11:30-0500 Systolic blood pressure 128 mm[Hg] Brandon Cantor MD Work Phone: [facility] 05-13-2024 11:14-0500 Body mass index (BMI) [Ratio] 27.54 kg/m2 Chris Pearson Jr., MD Work Phone: [facility] 05-13-2024 11:14-0500 Body weight 86.46 kg Chris Pearson Jr., MD Work Phone: [facility] 05-13-2024 11:14-0500 Diastolic blood pressure 70 mm[Hg] Chris Pearson Jr., MD Work Phone: [facility] 05-13-2024 11:14-0500 Heart rate 52 /min Chris Pearson Jr., MD Work Phone: [facility] 05-13-2024 11:14-0500 Respiratory rate 18 /min Chris Pearson Jr., MD Work Phone: [facility] 05-13-2024 11:14-0500 SaO2% (BldA) [Mass fraction] 94 % Chris Pearson Jr., MD Work Phone: [facility] 05-13-2024 11:14-0500 Systolic blood pressure 146 mm[Hg] Chris Pearson Jr., MD Work Phone: [facility] 04-15-2024 15:33-0500 Body height 177.2 cm Douglas Mortensen MD Work Phone: [facility] 04-15-2024 15:33-0500 Body mass index (BMI) [Ratio] 26.88 kg/m2 Douglas Mortensen MD Work Phone: [facility] 04-15-2024 15:33-0500 Body weight 84.37 kg Douglas Mortensen MD Work Phone: [facility] 04-15-2024 15:33-0500 Diastolic blood pressure 60 mm[Hg] Douglas Mortensen MD Work Phone: [facility] 04-15-2024 15:33-0500 Heart rate 66 /min Douglas Mortensen MD Work Phone: [facility] 04-15-2024 15:33-0500 SaO2% (BldA) [Mass fraction] 95 % Douglas Mortensen MD Work Phone: [facility] 04-15-2024 15:33-0500 Systolic blood pressure 116 mm[Hg] Douglas Mortensen MD Work Phone: [facility] 11-09-2023 13:39-0400 Body mass index (BMI) [Ratio] 26.74 kg/m2 Brandon Cantor MD Work Phone: [facility] 11-09-2023 13:39-0400 Body temperature 98.29 [degF] Brandon Cantor MD Work Phone: [facility] 11-09-2023 13:39-0400 Body weight 83.92 kg Brandon Cantor MD Work Phone: [facility] 11-09-2023 13:39-0400 Diastolic blood pressure 62 mm[Hg] Brandon Cantor MD Work Phone: [facility] 11-09-2023 13:39-0400 Heart rate 52 /min Brandon Cantor MD Work Phone: [facility] 11-09-2023 13:39-0400 Respiratory rate 20 /min Brandon Cantor MD Work Phone: [facility] 11-09-2023 13:39-0400 Systolic blood pressure 118 mm[Hg] Brandon Cantor MD Work Phone: [facility] 09-12-2023 13:10-0400 Body height 177.[address] Brandon Cantor Work Phone: [facility] 09-12-2023 13:10-0400 Body mass index (BMI) [Ratio] 27.2 kg/m2 Dr. Brandon Cantor Work Phone: [facility] 09-12-2023 13:10-0400 Body temperature 98.4 [degF] Dr. Brandon Cantor Work Phone: [facility] 09-12-2023 13:10-0400 Body weight 86.[address] Brandon Cantor Work Phone: [facility] 09-12-2023 13:10-0400 Diastolic blood pressure 67 mm[Hg] Dr. Brandon Cantor Work Phone: [facility] 09-12-2023 13:10-0400 Heart rate 52 /min Dr. Brandon Cantor Work Phone: [facility] 09-12-2023 13:10-0400 SaO2% (BldA) [Mass fraction] 99 % Dr. Brandon Cantor Work Phone: 1(294)399-926154 [place] [address] 09-12-2023 13:10-0400 Systolic blood pressure 113 mm[Hg] Dr. Brandon Cantor Work Phone: 6(025)939-374933 [place] [address] 08-21-2023 13:35-0400 Body temperature 98.5 [degF] Dr. Brandon Cantor Work Phone: 2(311)502-264133 [place] [address] 08-21-2023 13:35-0400 Diastolic blood pressure 55 mm[Hg] Dr. Brandon Cantor Work Phone: 6(651)504-986733 [place] [address] 08-21-2023 13:35-0400 Heart rate 64 /min Dr. Brandon Cantor Work Phone: 9(980)712-568233 [place] [address] 08-21-2023 13:35-0400 Respiratory rate 18 /min Dr. Brandon Cantor Work Phone: 0(558)719-766633 [place] [address] 08-21-2023 13:35-0400 SaO2% (BldA) [Mass fraction] 94 % Dr. Brandon Cantor Work Phone: 7(026)582-979633 [place] [address] 08-21-2023 13:35-0400 Systolic blood pressure 123 mm[Hg] Dr. Brandon Cantor Work Phone: 5(596)850-757433 [place] [address] 08-20-2023 07:58-0400 Inhaled oxygen flow rate 2 L/min Dr. Brandon Cantor Work Phone: 5(151)298-511933 [place] [address] 08-18-2023 11:39-0400 Body height [address] Brandon Cantor Work Phone: 9(571)800-905633 [place] [address] 08-18-2023 11:39-0400 Body mass index (BMI) [Ratio] 26.9 kg/m2 Dr. Brandon Cantor Work Phone: 6(864)920-872333 [place] [address] 08-18-2023 11:39-0400 Body weight 85.[address] Brandon Cantor Work Phone: 8(395)505-164733 [place] [address] 08-18-2023 10:00-0400 Diastolic blood pressure 73 mm[Hg] Dr. Brandon Cantor Work Phone: 5(107)703-673754 [place] [address] 08-18-2023 10:00-0400 Heart rate 68 /min Dr. Brandon Cantor Work Phone: 1(700)776-593154 [place] [address] 08-18-2023 10:00-0400 Respiratory rate 18 /min Dr. Brandon Cantor Work Phone: 7(033)835-262633 [place] [address] 08-18-2023 10:00-0400 SaO2% (BldA) [Mass fraction] 91 % Dr. Brandon Cantor Work Phone: 2(373)720-755354 [place] [address] 08-18-2023 10:00-0400 Systolic blood pressure 146 mm[Hg] Dr. Brandon Cantor Work Phone: 3(102)716-703133 [place] [address] 08-18-2023 09:27-0400 Body temperature 98 [degF] Dr. Brandon Cantor Work Phone: 1(819)120-073733 [place] [address] 08-18-2023 09:00-0400 Inhaled oxygen flow rate 2 L/min Dr. Brandon Cantor Work Phone: 1(575)834-230333 [place] [address] 08-18-2023 02:38-0400 Body height 177.[address] Brandon Cantor Work Phone: 8(005)599-523133 [place] [address] 08-18-2023 02:38-0400 Body mass index (BMI) [Ratio] 26.9 kg/m2 Dr. Brandon Cantor Work Phone: 5(634)094-522454 [place] [address] 08-18-2023 02:38-0400 Body weight 85.[address] Brandon Cantor Work Phone: 2(364)341-260554 [place] [address] 04-19-2023 11:18-0500 Body temperature 98.4 [degF] Dr. Brandon Cantor Work Phone: 8(819)528-660554 [place] [address] 04-19-2023 11:18-0500 Diastolic blood pressure 62 mm[Hg] Dr. Brandon Cantor Work Phone: 6(583)613-048754 [place] [address] 04-19-2023 11:18-0500 Heart rate 60 /min Dr. Brandon Cantor Work Phone: [facility] 04-19-2023 11:18-0500 Respiratory rate 18 /min Dr. Brandon Cantor Work Phone: [facility] 04-19-2023 11:18-0500 SaO2% (BldA) [Mass fraction] 93 % Dr. Brandon Cantor Work Phone: [facility] 04-19-2023 11:18-0500 Systolic blood pressure 131 mm[Hg] Dr. Brandon Cantor Work Phone: [facility] 04-19-2023 11:05-0500 Inhaled oxygen flow rate 2 L/min Dr. Brandon Cantor Work Phone: [facility] 04-19-2023 10:02-0500 Body height 177.[address] Brandon Cantor Work Phone: [facility] 04-19-2023 10:02-0500 Body mass index (BMI) [Ratio] 28.3 kg/m2 Dr. Brandon Cantor Work Phone: 0(425)137-905054 [place] [address] 04-19-2023 10:02-0500 Body weight 89.[address] Brandon Cantor Work Phone: [facility] 04-17-2023 11:03-0500 Body weight 89.81 kg Douglas Mortensen MD Work Phone: [facility] 04-17-2023 11:03-0500 Diastolic blood pressure 67 mm[Hg] Douglas Mortensen MD Work Phone: [facility] 04-17-2023 11:03-0500 Heart rate 65 /min Douglas Mortensen MD Work Phone: [facility] 04-17-2023 11:03-0500 SaO2% (BldA) [Mass fraction] 94 % Douglas Mortensen MD Work Phone: [facility] 04-17-2023 11:03-0500 Systolic blood pressure 121 mm[Hg] Douglas Mortensen MD Work Phone: [facility] 04-12-2023 13:02-0500 Body mass index (BMI) [Ratio] 27.8 kg/m2 Dr. Brandon Cantor Work Phone: [facility] 04-12-2023 13:02-0500 Body weight 87.[address] Brandon Cantor Work Phone: [facility] 04-12-2023 13:02-0500 Diastolic blood pressure 64 mm[Hg] Dr. Brandon Cantor Work Phone: 6(706)668-493533 [place] [address] 04-12-2023 13:02-0500 Respiratory rate 16 /min Dr. Brandon Cantor Work Phone: 2(632)067-711833 [place] [address] 04-12-2023 13:02-0500 Systolic blood pressure 113 mm[Hg] Dr. Brandon Cantor Work Phone: 8(736)588-627933 [place] [address] 03-09-2023 14:28-0400 Body height 177.[address] Brandon Cantor Work Phone: 7(298)551-242833 [place] [address] 03-09-2023 14:28-0400 Body mass index (BMI) [Ratio] 27.8 kg/m2 Dr. Brandon Cantor Work Phone: 0(135)758-881154 [place] [address] 03-09-2023 14:28-0400 Body temperature 98 [degF] Dr. Brandon Cantor Work Phone: 5(554)782-775354 [place] [address] 03-09-2023 14:28-0400 Body weight 88.[address] Brandon Cantor Work Phone: 4(756)679-950233 [place] [address] 03-09-2023 14:28-0400 Diastolic blood pressure 74 mm[Hg] Dr. Brandon Cantor Work Phone: 9(982)397-572633 [place] [address] 03-09-2023 14:28-0400 Heart rate 70 /min Dr. Brandon Cantor Work Phone: 1(147)490-388933 [place] [address] 03-09-2023 14:28-0400 Respiratory rate 16 /min Dr. Brandon Cantor Work Phone: 6(249)614-236054 [place] [address] 03-09-2023 14:28-0400 SaO2% (BldA) [Mass fraction] 96 % Dr. Brandon Cantor Work Phone: 8(604)406-634533 [place] [address] 03-09-2023 14:28-0400 Systolic blood pressure 126 mm[Hg] Dr. Brandon Cantor Work Phone: 3(319)888-214233 [place] [address] 02-02-2023 12:18-0400 Body temperature 98 [degF] Dr. Brandon Cantor Work Phone: 1(820)903-816133 [place] [address] 02-02-2023 12:18-0400 Diastolic blood pressure 61 mm[Hg] Dr. Brandon Cantor Work Phone: 4(994)401-239733 [place] [address] 02-02-2023 12:18-0400 Heart rate 53 /min Dr. Brandon Cantor Work Phone: 9(995)666-905433 [place] [place] [address] 02-02-2023 12:18-0400 Respiratory rate 16 /min Dr. Brandon Cantor Work Phone: 1(004)723-819533 [place] [address] 02-02-2023 12:18-0400 SaO2% (BldA) [Mass fraction] 92 % Dr. Brandon Cantor Work Phone: 4(815)360-326833 [place] [address] 02-02-2023 12:18-0400 Systolic blood pressure 114 mm[Hg] Dr. Brandon Cantor Work Phone: 8(317)426-288933 [place] [address] 02-02-2023 12:05-0400 Inhaled oxygen flow rate 2 L/min Dr. Brandon Cantor Work Phone: 3(747)177-965233 [place] [address] 02-02-2023 10:58-0400 Body height 177.[address] Brandon Cantor Work Phone: 3(030)819-472333 [place] [address] 02-02-2023 10:58-0400 Body mass index (BMI) [Ratio] 27.8 kg/m2 Dr. Brandon Cantor Work Phone: 3(083)741-008233 [place] [address] 02-02-2023 10:58-0400 Body weight [address] Brandon Cantor Work Phone: [facility] 11-04-2022 11:37-0400 Body weight 85.73 kg Delicia Older 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 Work Phone: [facility] 11-04-2022 11:37-0400 Diastolic blood pressure 60 mm[Hg] Delicia Older 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 Work Phone: [facility] 11-04-2022 11:37-0400 Heart rate 74 /min Delicia Older 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 Work Phone: [facility] 11-04-2022 11:37-0400 Respiratory rate 16 /min Delicia Older 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 Work Phone: [facility] 11-04-2022 11:37-0400 Systolic blood pressure 108 mm[Hg] Delicia Older 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 Work Phone: [facility] 09-08-2022 14:28-0400 Body height 177.[address] Brandon Cantor Work Phone: [facility] 09-08-2022 14:28-0400 Body mass index (BMI) [Ratio] 27 kg/m2 Dr. Brandon Cantor Work Phone: [facility] 09-08-2022 14:28-0400 Body temperature 98.6 [degF] Dr. Brandon Cantor Work Phone: [facility] 09-08-2022 14:28-0400 Body weight 85.[address] Brandon Cantor Work Phone: [facility] 09-08-2022 14:28-0400 Diastolic blood pressure 61 mm[Hg] Dr. Brandon Cantor Work Phone: [facility] 09-08-2022 14:28-0400 Heart rate 55 /min Dr. Brandon Cantor Work Phone: [facility] 09-08-2022 14:28-0400 Respiratory rate 18 /min Dr. Brandon Cantor Work Phone: [facility] 09-08-2022 14:28-0400 SaO2% (BldA) [Mass fraction] 95 % Dr. Brandon Cantor Work Phone: [facility] 09-08-2022 14:28-0400 Systolic blood pressure 102 mm[Hg] Dr. Brandon Cantor Work Phone: 5(713)609-243233 [place] [address] 09-02-2022 09:52-0400 Body mass index (BMI) [Ratio] 26.9 kg/m2 Dr. Brandon Cantor Work Phone: 3(195)199-695933 [place] [address] 09-02-2022 09:52-0400 Body weight 85.[address] Brandon Cantor Work Phone: 1(433)785-595233 [place] [address] 09-02-2022 09:52-0400 Diastolic blood pressure 64 mm[Hg] Dr. Brandon Cantor Work Phone: 0(309)397-145033 [place] [address] 09-02-2022 09:52-0400 Heart rate 61 /min Dr. Brandon Cantor Work Phone: 7(270)320-907233 [place] [address] 09-02-2022 09:52-0400 SaO2% (BldA) [Mass fraction] 94 % Dr. Brandon Cantor Work Phone: 2(860)235-452654 [place] [address] 09-02-2022 09:52-0400 Systolic blood pressure 105 mm[Hg] Dr. Brandon Cantor Work Phone: [facility] 08-11-2022 11:28-0500 Body temperature 98.01 [degF] Angelica Annehausen 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 Work Phone: [facility] 08-11-2022 11:28-0500 Body weight 85.09 kg Angelicacuauhtemoc Annehausen 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 Work Phone: [facility] 08-11-2022 11:28-0500 Diastolic blood pressure 58 mm[Hg] Angelica Annehausen 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 Work Phone: [facility] 08-11-2022 11:28-0500 Heart rate 56 /min Angelica Dahlhausen 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 Work Phone: [facility] 08-11-2022 11:28-0500 Respiratory rate 16 /min Angelica Dahlhausen 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 Work Phone: [facility] 08-11-2022 11:28-0500 SaO2% (BldA) [Mass fraction] 97 % Angelica Dahlhausen 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 Work Phone: [facility] 08-11-2022 11:28-0500 Systolic blood pressure 110 mm[Hg] Angelica Dahlhausen 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 Work Phone: [facility] 08-10-2022 14:00-0500 Diastolic blood pressure 65 mm[Hg] Dr. Brandon Cantor Work Phone: [facility] 08-10-2022 14:00-0500 Heart rate 50 /min Dr. Brandon Cantor Work Phone: [facility] 08-10-2022 14:00-0500 Respiratory rate 17 /min Dr. Brandon Cantor Work Phone: [facility] 08-10-2022 14:00-0500 SaO2% (BldA) [Mass fraction] 99 % Dr. Brandon Cantor Work Phone: [facility] 08-10-2022 14:00-0500 Systolic blood pressure 143 mm[Hg] Dr. Brandon Cantor Work Phone: [facility] 08-10-2022 11:38-0500 Body height 177.[address] Brandon Cantor Work Phone: [facility] 08-10-2022 11:38-0500 Body mass index (BMI) [Ratio] 27.8 kg/m2 Dr. Brandon Cantor Work Phone: [facility] 08-10-2022 11:38-0500 Body temperature 97.7 [degF] Dr. Brandon Cantor Work Phone: [facility] 08-10-2022 11:38-0500 Body weight [address] Brandon Cantor Work Phone: [facility] 08-04-2022 10:56-0500 Diastolic blood pressure 65 mm[Hg] Brandon Cantor MD Work Phone: [facility] 08-04-2022 10:56-0500 Heart rate 54 /min Brandon Cantor MD Work Phone: [facility] 08-04-2022 10:56-0500 Systolic blood pressure 137 mm[Hg] Brandon Cantor MD Work Phone: [facility] 08-04-2022 10:45-0500 Body weight 88.81 kg Brandon Cantor MD Work Phone: [facility] 08-04-2022 10:45-0500 Respiratory rate 20 /min Brandon Cantor MD Work Phone: [facility] 06-23-2022 10:49-0500 Body height 177.[address] Brandon Cantor Work Phone: [facility] 06-23-2022 10:49-0500 Body mass index (BMI) [Ratio] 27.5 kg/m2 Dr. Brandon Cantor Work Phone: [facility] 06-23-2022 10:49-0500 Body weight 87.[address] Brandon Cantor Work Phone: [facility] 06-23-2022 10:49-0500 Diastolic blood pressure 70 mm[Hg] Dr. Brandon Cnator Work Phone: [facility] 06-23-2022 10:49-0500 Heart rate 55 /min Dr. Brandon Cantor Work Phone: [facility] 06-23-2022 10:49-0500 SaO2% (BldA) [Mass fraction] 94 % Dr. Brandon Cantor Work Phone: 0(629)788-886133 [place] [address] 06-23-2022 10:49-0500 Systolic blood pressure 125 mm[Hg] Dr. Brandon Cantor Work Phone: 7(550)103-911333 [place] [address] 06-14-2022 09:46-0500 Body weight 86.18 kg Sharon Dougherty MD Work Phone: 8(748)152-417345 [place] [address] 05-10-2022 09:41-0500 Body height 177.[address] Brandon Cantor Work Phone: 7(388)298-746233 [place] [address] 05-10-2022 09:41-0500 Body mass index (BMI) [Ratio] 26.6 kg/m2 Dr. Brandon Cantor Work Phone: 3(919)020-316333 [place] [address] 05-10-2022 09:41-0500 Body weight 84.[address] Brandon Cantor Work Phone: 4(961)513-007333 [place] [address] 05-10-2022 09:41-0500 Diastolic blood pressure 72 mm[Hg] Dr. Brandon Cantor Work Phone: 9(947)495-521433 [place] [address] 05-10-2022 09:41-0500 Heart rate 52 /min Dr. Brandon Cantor Work Phone: 5(686)292-782733 [place] [address] 05-10-2022 09:41-0500 SaO2% (BldA) [Mass fraction] 93 % Dr. Brandon Cantor Work Phone: 6(594)633-557833 [place] [address] 05-10-2022 09:41-0500 Systolic blood pressure 133 mm[Hg] Dr. Brandon Cantor Work Phone: 7(288)326-597733 [place] [address] 05-01-2022 09:15-0500 Body temperature 97.6 [degF] Dr. Brandon Cantor Work Phone: 5(380)245-237433 [place] [address] 05-01-2022 09:15-0500 Diastolic blood pressure 56 mm[Hg] Dr. Brandon Cantor Work Phone: 3(257)504-342633 [place] [address] 05-01-2022 09:15-0500 Heart rate 80 /min Dr. Brandon Cantor Work Phone: 3(175)349-612433 [place] [address] 05-01-2022 09:15-0500 Respiratory rate 18 /min Dr. Brandon Cantor Work Phone: 2(730)493-154233 [place] [address] 05-01-2022 09:15-0500 SaO2% (BldA) [Mass fraction] 96 % Dr. Brandon Cantor Work Phone: 5(713)306-764133 [place] [address] 05-01-2022 09:15-0500 Systolic blood pressure 100 mm[Hg] Dr. Brandon Cantor Work Phone: 6(512)074-999333 [place] [address] 05-01-2022 06:14-0500 Inhaled oxygen flow rate 2 L/min Dr. Brandon Cantor Work Phone: 9(162)465-393033 [place] [address] 04-30-2022 16:16-0500 Body height 177.[address] Brandon Cantor Work Phone: 9(352)631-452733 [place] [address] Work Phone: 04-30-2022 16:16-0500 Body weight 74.[address] Brandon Cantor Work Phone: 6(288)158-286733 [place] [address] 04-29-2022 17:57-0500 Body mass index (BMI) [Ratio] 23.6 kg/m2 Dr. Brandon Cantor Work Phone: 4(433)840-994033 [place] [address] 04-26-2022 14:34-0500 Body temperature 99.4 [degF] Dr. Brandon Cantor Work Phone: 8(470)249-582133 [place] [address] 04-26-2022 14:34-0500 Diastolic blood pressure 62 mm[Hg] Dr. Brandon Cantor Work Phone: 0(248)688-777733 [place] [address] 04-26-2022 14:34-0500 Heart rate 57 /min Dr. Brandon Cantor Work Phone: 4(791)522-981933 [place] [address] 04-26-2022 14:34-0500 Respiratory rate 16 /min Dr. Brandon Cantor Work Phone: 0(404)511-298833 [place] [address] 04-26-2022 14:34-0500 SaO2% (BldA) [Mass fraction] 97 % Dr. Brandon Cantor Work Phone: 5(613)716-389708 [address] 04-26-2022 14:34-0500 Systolic blood pressure 129 mm[Hg] Dr. Brandon Cantor Work Phone: 8(409)241-985033 [place] [address] 04-26-2022 13:15-0500 Body height 177.[address] Brandon Cantor Work Phone: [facility] Work Phone: 04-26-2022 13:15-0500 Body mass index (BMI) [Ratio] 26.5 kg/m2 Dr. Brandon Cantor Work Phone: 5(768)111-456133 [place] [address] 04-26-2022 13:15-0500 Body weight 83.[address] Brandon Cantor Work Phone: 8(526)304-704133 [place] [address] 04-12-2022 13:31-0500 Body mass index (BMI) [Ratio] 26.1 kg/m2 Dr. Brandon Cantor Work Phone: 9(578)820-887233 [place] [address] 04-12-2022 13:31-0500 Body temperature 97.6 [degF] Dr. Brandon Cantor Work Phone: 3(329)908-536233 [place] [address] 04-12-2022 13:31-0500 Body weight 82.[address] Brandon Cantor Work Phone: 2(164)232-168933 [place] [address] 04-12-2022 13:31-0500 Diastolic blood pressure 72 mm[Hg] Dr. Brandon Cantor Work Phone: 5(052)193-966033 [place] [address] 04-12-2022 13:31-0500 Heart rate 52 /min Dr. Brandon Cantor Work Phone: 1(116)319-768833 [place] [address] 04-12-2022 13:31-0500 Respiratory rate 18 /min Dr. Brandon Cantor Work Phone: 2(625)402-933133 [place] [address] 04-12-2022 13:31-0500 SaO2% (BldA) [Mass fraction] 99 % Dr. Brandon Cantor Work Phone: [facility] 04-12-2022 13:31-0500 Systolic blood pressure 125 mm[Hg] Dr. Brandon Cantor Work Phone: 1(885)587-110333 [place] [address] 04-07-2022 14:24-0400 Body mass index (BMI) [Ratio] 26.2 kg/m2 Dr. Brandon Cantor Work Phone: 7(109)236-783333 [place] [address] 04-07-2022 14:24-0400 Body temperature 97 [degF] Dr. Brandon Cantor Work Phone: 7(313)697-031733 [place] [address] 04-07-2022 14:24-0400 Body weight 83.[address] Brandon Cantor Work Phone: 5(371)595-506233 [place] [address] 04-07-2022 14:24-0400 Diastolic blood pressure 73 mm[Hg] Dr. Brandon Cantor Work Phone: 6(588)483-510433 [place] [address] 04-07-2022 14:24-0400 Heart rate 56 /min Dr. Brandon Cantor Work Phone: 8(541)661-487233 [place] [address] 04-07-2022 14:24-0400 Respiratory rate 18 /min Dr. Brandon Cantor Work Phone: 5(031)002-144533 [place] [address] 04-07-2022 14:24-0400 SaO2% (BldA) [Mass fraction] 92 % Dr. Brandon Cantor Work Phone: 9(666)813-085733 [place] [address] 04-07-2022 14:24-0400 Systolic blood pressure 125 mm[Hg] Dr. Brandon Cantor Work Phone: 9(158)647-497954 [place] [address] 04-04-2022 11:56-0400 Body weight 83.92 kg Douglas Mortensen MD Work Phone: [facility] 04-04-2022 11:56-0400 Diastolic blood pressure 60 mm[Hg] Douglas Mortensen MD Work Phone: [facility] 04-04-2022 11:56-0400 Heart rate 56 /min Douglas Mortensen MD Work Phone: [facility] 04-04-2022 11:56-0400 Systolic blood pressure 120 mm[Hg] Douglas Mortensen MD Work Phone: [facility] 04-01-2022 10:59-0400 Body height 177.8 cm Delicia Older 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 Work Phone: [facility] 04-01-2022 10:59-0400 Body weight 83.46 kg Delicia Older 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 Work Phone: [facility] 04-01-2022 10:59-0400 Diastolic blood pressure 66 mm[Hg] Delicia Older 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 Work Phone: [facility] 04-01-2022 10:59-0400 Heart rate 51 /min Delicia Older 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 Work Phone: [facility] 04-01-2022 10:59-0400 Respiratory rate 16 /min Delicia Older 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 Work Phone: [facility] 04-01-2022 10:59-0400 Systolic blood pressure 113 mm[Hg] Delicia Older 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 Work Phone: [facility] 02-24-2022 10:47-0400 Body temperature 97.7 [degF] Dr. Brandon Cantor Work Phone: [facility] 02-24-2022 10:47-0400 Diastolic blood pressure 51 mm[Hg] Dr. Brandon Cantor Work Phone: [facility] 02-24-2022 10:47-0400 Heart rate 58 /min Dr. Brandon Cantor Work Phone: [facility] 02-24-2022 10:47-0400 Respiratory rate 20 /min Dr. Brandon Cantor Work Phone: [facility] 02-24-2022 10:47-0400 SaO2% (BldA) [Mass fraction] 93 % Dr. Brandon Cantor Work Phone: [facility] 02-24-2022 10:47-0400 Systolic blood pressure 111 mm[Hg] Dr. Brandon Cantor Work Phone: [facility] 02-24-2022 03:00-0400 Inhaled oxygen concentration 4 % Dr. Brandon Cantor Work Phone: [facility] 02-24-2022 03:00-0400 Inhaled oxygen flow rate 2 L/min Dr. Brandon Cantor Work Phone: [facility] 02-20-2022 12:36-0400 Body height 177.[address] Brandon Cantor Work Phone: [facility] Work Phone: 02-20-2022 12:36-0400 Body weight [address] Brandon Cantor Work Phone: 6(456)965-528354 [place] [address] 02-17-2022 14:03-0400 Body temperature 98.3 [degF] Dr. Brandon Cantor Work Phone: [facility] Work Phone: 02-17-2022 14:03-0400 Diastolic blood pressure 70 mm[Hg] Dr. Brandon Cantor Work Phone: [facility] Work Phone: 02-17-2022 14:03-0400 Heart rate 70 /min Dr. Brandon Cantor Work Phone: [facility] Work Phone: 02-17-2022 14:03-0400 Inhaled oxygen flow rate 4 L/min Dr. Brandon Cantor Work Phone: [facility] Work Phone: 02-17-2022 14:03-0400 Respiratory rate 16 /min Dr. Brandon Cantor Work Phone: [facility] Work Phone: 02-17-2022 14:03-0400 Systolic blood pressure 144 mm[Hg] Dr. Brandon Cantor Work Phone: [facility] Work Phone: 02-17-2022 09:00-0400 SaO2% (BldA) [Mass fraction] 96 % Dr. Brandon Cantor Work Phone: [facility] Work Phone: 02-16-2022 15:33-0400 Body height 177.[address] Brandon Cantor Work Phone: [facility] Work Phone: 02-16-2022 15:33-0400 Body mass index (BMI) [Ratio] 25.6 kg/m2 Dr. Brandon Cantor Work Phone: [facility] 02-16-2022 15:33-0400 Body weight [address] Brandon Cantor Work Phone: [facility] Work Phone: 02-14-2022 08:55-0400 Body mass index (BMI) [Ratio] 26.6 kg/m2 Dr. Brandon Cantor Work Phone: [facility] Work Phone: 02-14-2022 08:55-0400 Body temperature 98.6 [degF] Dr. Brandon Cantor Work Phone: [facility] Work Phone: 02-14-2022 08:55-0400 Body weight 84.[address] Brnadon Cantor Work Phone: [facility] Work Phone: 02-14-2022 08:55-0400 Diastolic blood pressure 70 mm[Hg] Dr. Brandon Cantor Work Phone: [facility] Work Phone: 02-14-2022 08:55-0400 Heart rate 71 /min Dr. Brandon Cantor Work Phone: [facility] Work Phone: 02-14-2022 08:55-0400 Respiratory rate 16 /min Dr. Brandon Cantor Work Phone: [facility] Work Phone: 02-14-2022 08:55-0400 SaO2% (BldA) [Mass fraction] 96 % Dr. Brandon Cantor Work Phone: [facility] Work Phone: 02-14-2022 08:55-0400 Systolic blood pressure 146 mm[Hg] Dr. Brandon Cantor Work Phone: [facility] Work Phone: 12-07-2021 13:08-0400 Body height 177.[address] Brandon Cantor Work Phone: [facility] Work Phone: 12-07-2021 13:08-0400 Body mass index (BMI) [Ratio] 25 kg/m2 Dr. Brandon Cantor Work Phone: [facility] Work Phone: 12-07-2021 13:08-0400 Body temperature 97.5 [degF] Dr. Brandon Cantor Work Phone: [facility] Work Phone: 12-07-2021 13:08-0400 Body weight 79.[address] Brandon Cantor Work Phone: [facility] Work Phone: 12-07-2021 13:08-0400 Diastolic blood pressure 61 mm[Hg] Dr. Brandon Cantor Work Phone: [facility] Work Phone: 12-07-2021 13:08-0400 Heart rate 50 /min Dr. Brandon Cantor Work Phone: [facility] Work Phone: 12-07-2021 13:08-0400 Respiratory rate 17 /min Dr. Brandon Cantor Work Phone: [facility] Work Phone: 12-07-2021 13:08-0400 SaO2% (BldA) [Mass fraction] 96 % Dr. Brandon Cantor Work Phone: [facility] Work Phone: 12-07-2021 13:08-0400 Systolic blood pressure 102 mm[Hg] Dr. Brandon Cantor Work Phone: [facility] Work Phone: 11-30-2021 08:24-0400 Body mass index (BMI) [Ratio] 25.5 kg/m2 Dr. Brandon Cantor Work Phone: [facility] Work Phone: 11-30-2021 08:24-0400 Body temperature 95.3 [degF] Dr. Brandon Cantor Work Phone: [facility] Work Phone: 11-30-2021 08:24-0400 Body weight 80.[address] Brandon Cantor Work Phone: [facility] Work Phone: 11-30-2021 08:24-0400 Diastolic blood pressure 70 mm[Hg] Dr. Brandon Cantor Work Phone: [facility] Work Phone: 11-30-2021 08:24-0400 Heart rate 56 /min Dr. Brandon Cantor Work Phone: [facility] Work Phone: 11-30-2021 08:24-0400 Respiratory rate 18 /min Dr. Brandon Cantor Work Phone: [facility] Work Phone: 11-30-2021 08:24-0400 SaO2% (BldA) [Mass fraction] 95 % Dr. Brandon Cantor Work Phone: [facility] Work Phone: 11-30-2021 08:24-0400 Systolic blood pressure 124 mm[Hg] Dr. Brandon Cantor Work Phone: [facility] Work Phone: 11-25-2021 14:40-0400 Body temperature 98.8 [degF] Angelica Dahlhausen 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 Work Phone: [facility] 11-25-2021 14:40-0400 Body weight 78.93 kg Angelica Dahlhausen 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 Work Phone: [facility] 11-25-2021 14:40-0400 Diastolic blood pressure 82 mm[Hg] Angelica Dahlhausen 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 Work Phone: [facility] 11-25-2021 14:40-0400 Heart rate 57 /min Angelica Dahlhausen 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 Work Phone: [facility] 11-25-2021 14:40-0400 Respiratory rate 18 /min Angelica Dahlhausen 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 Work Phone: [facility] 11-25-2021 14:40-0400 SaO2% (BldA) [Mass fraction] 96 % Angelica Dahlhausen 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 Work Phone: [facility] 11-25-2021 14:40-0400 Systolic blood pressure 128 mm[Hg] Angelica Dahlhausen 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 Work Phone: [facility] 11-17-2021 15:07-0400 Body temperature 97.2 [degF] Brandon Cantor MD Work Phone: [facility] 11-17-2021 15:07-0400 Body weight 77.02 kg Brandon Cantor MD Work Phone: [facility] 11-17-2021 15:07-0400 Diastolic blood pressure 56 mm[Hg] Brandon Cantor MD Work Phone: [facility] 11-17-2021 15:07-0400 Heart rate 68 /min Brandon Cantor MD Work Phone: [facility] 11-17-2021 15:07-0400 Respiratory rate 24 /min Brandon Cantor MD Work Phone: [facility] 11-17-2021 15:07-0400 Systolic blood pressure 112 mm[Hg] Brandon Cantor MD Work Phone: [facility] 11-14-2021 10:42-0400 Diastolic blood pressure 68 mm[Hg] Dr. Brandon Cantor Work Phone: [facility] Work Phone: 11-14-2021 10:42-0400 Heart rate 62 /min Dr. Brandon Cantor Work Phone: [facility] Work Phone: 11-14-2021 10:42-0400 Respiratory rate 14 /min Dr. Brandon Cantor Work Phone: [facility] Work Phone: 11-14-2021 10:42-0400 SaO2% (BldA) [Mass fraction] 95 % Dr. Brandon Cantor Work Phone: [facility] Work Phone: 11-14-2021 10:42-0400 Systolic blood pressure 180 mm[Hg] Dr. Brandon Cantor Work Phone: [facility] Work Phone: 11-14-2021 07:06-0400 Body temperature 97.6 [degF] Dr. Brandon Cantor Work Phone: [facility] Work Phone: 11-14-2021 07:03-0400 Body height 177.[address] Brandon Cantor Work Phone: [facility] Work Phone: 11-14-2021 07:03-0400 Body mass index (BMI) [Ratio] 24.9 kg/m2 Dr. Brandon Cantor Work Phone: [facility] Work Phone: 11-14-2021 07:03-0400 Body weight 78.[address] Brandon Cantor Work Phone: [facility] Work Phone: 10-19-2021 10:58-0400 Diastolic blood pressure 49 mm[Hg] Dr. Brandon Cantor Work Phone: [facility] Work Phone: 10-19-2021 10:58-0400 Heart rate 65 /min Dr. Brandon Cantor Work Phone: [facility] Work Phone: 10-19-2021 10:58-0400 Systolic blood pressure 111 mm[Hg] Dr. Brandon Cantor Work Phone: [facility] Work Phone: 10-19-2021 10:52-0400 Body temperature 98.1 [degF] Dr. Brandon Cantor Work Phone: [facility] Work Phone: 10-19-2021 10:52-0400 Respiratory rate 15 /min Dr. Brandon Cantor Work Phone: [facility] Work Phone: 10-19-2021 10:52-0400 SaO2% (BldA) [Mass fraction] 96 % Dr. Brandon Cantor Work Phone: [facility] Work Phone: 10-19-2021 07:16-0400 Inhaled oxygen flow rate 2 L/min Dr. Brandon Cantor Work Phone: [facility] Work Phone: 10-19-2021 06:00-0400 Body weight 79.[address] Brandon Cantor Work Phone: [facility] Work Phone: 10-18-2021 13:34-0400 Body mass index (BMI) [Ratio] 25.2 kg/m2 Dr. Brandon Cantor Work Phone: [facility] Work Phone: 10-18-2021 13:13-0400 Body height 177.[address] Brandon Cantor Work Phone: [facility] Work Phone: 10-18-2021 12:30-0400 Body temperature 98.4 [degF] Dr. Brandon Cantor Work Phone: [facility] Work Phone: 10-18-2021 12:30-0400 Diastolic blood pressure 113 mm[Hg] Dr. Brandon Cantor Work Phone: [facility] Work Phone: 10-18-2021 12:30-0400 Heart rate 54 /min Dr. Brandon Cantor Work Phone: [facility] Work Phone: 10-18-2021 12:30-0400 Respiratory rate 16 /min Dr. Brandon Cantor Work Phone: [facility] Work Phone: 10-18-2021 12:30-0400 SaO2% (BldA) [Mass fraction] 96 % Dr. Brandon Cantor Work Phone: [facility] Work Phone: 10-18-2021 12:30-0400 Systolic blood pressure 150 mm[Hg] Dr. Brandon Cantor Work Phone: [facility] Work Phone: 10-18-2021 11:32-0400 Body height 177.[address] Brandon Cantor Work Phone: [facility] Work Phone: 10-18-2021 11:32-0400 Body mass index (BMI) [Ratio] 25.5 kg/m2 Dr. Brandon Cantor Work Phone: [facility] Work Phone: 10-18-2021 11:32-0400 Body weight 80.[address] Brandon Cantor Work Phone: [facility] Work Phone: 10-18-2021 10:24-0400 Body mass index (BMI) [Ratio] 25.4 kg/m2 Dr. Brandon Cantor Work Phone: [facility] Work Phone: 10-18-2021 10:24-0400 Body temperature 95.5 [degF] Dr. Brandon Cantor Work Phone: [facility] Work Phone: 10-18-2021 10:24-0400 Body weight 80.[address] Brandon Cantor Work Phone: [facility] Work Phone: 10-18-2021 10:24-0400 Diastolic blood pressure 62 mm[Hg] Dr. Brandon Cantor Work Phone: [facility] Work Phone: 10-18-2021 10:24-0400 Heart rate 68 /min Dr. Brandon Cantor Work Phone: [facility] Work Phone: 10-18-2021 10:24-0400 Respiratory rate 18 /min Dr. Brandon Cantor Work Phone: [facility] Work Phone: 10-18-2021 10:24-0400 SaO2% (BldA) [Mass fraction] 97 % Dr. Brandon Cantor Work Phone: [facility] Work Phone: 10-18-2021 10:24-0400 Systolic blood pressure 100 mm[Hg] Dr. Brandon Cantor Work Phone: [facility] Work Phone: 10-18-2021 10:24-0400 Body mass index (BMI) [Ratio] 25.4 kg/m2 Dr. Brandon Cantor Work Phone: [facility] Work Phone: 10-18-2021 10:24-0400 Body temperature 95.5 [degF] Dr. Brandon Cantor Work Phone: [facility] Work Phone: 10-18-2021 10:24-0400 Body weight 80.[address] Brandon Cantor Work Phone: [facility] Work Phone: 10-18-2021 10:24-0400 Diastolic blood pressure 62 mm[Hg] Dr. Brandon Cantor Work Phone: [facility] Work Phone: 10-18-2021 10:24-0400 Heart rate 68 /min Dr. Brandon Cantor Work Phone: [facility] Work Phone: 10-18-2021 10:24-0400 Respiratory rate 18 /min Dr. Brandon Cantor Work Phone: [facility] Work Phone: 10-18-2021 10:24-0400 SaO2% (BldA) [Mass fraction] 97 % Dr. Brandon Cantor Work Phone: [facility] Work Phone: 10-18-2021 10:24-0400 Systolic blood pressure 100 mm[Hg] Dr. Brandon Cantor Work Phone: [facility] Work Phone: 10-15-2021 16:31-0400 Diastolic blood pressure 70 mm[Hg] Dr. Brandon Cantor Work Phone: [facility] Work Phone: 10-15-2021 16:31-0400 Heart rate 55 /min Dr. Brandon Cantor Work Phone: [facility] Work Phone: 10-15-2021 16:31-0400 Respiratory rate 16 /min Dr. Brandon Cantor Work Phone: [facility] Work Phone: 10-15-2021 16:31-0400 Systolic blood pressure 166 mm[Hg] Dr. Brandon Cantor Work Phone: [facility] Work Phone: 10-15-2021 14:13-0400 Body height 177.[address] Brandon Cantor Work Phone: [facility] Work Phone: 10-15-2021 14:13-0400 Body mass index (BMI) [Ratio] 26 kg/m2 Dr. Brandon Cantor Work Phone: [facility] Work Phone: 10-15-2021 14:13-0400 Body temperature 97.6 [degF] Dr. Brandon Cantor Work Phone: [facility] Work Phone: 10-15-2021 14:13-0400 Body weight 82.[address] Brandon Cantor Work Phone: [facility] Work Phone: 10-15-2021 14:13-0400 SaO2% (BldA) [Mass fraction] 92 % Dr. Brandon Cantor Work Phone: [facility] Work Phone: 09-28-2021 10:52-0400 Diastolic blood pressure 74 mm[Hg] Delicia Older 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 Work Phone: [facility] 09-28-2021 10:52-0400 Systolic blood pressure 126 mm[Hg] Delicia Older 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 Work Phone: [facility] 09-28-2021 10:32-0400 Body weight 85.28 kg Delicia Older 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 Work Phone: [facility] 09-28-2021 10:32-0400 Heart rate 72 /min Delicia Older 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 Work Phone: [facility] 09-28-2021 10:32-0400 Respiratory rate 16 /min Delicia Older 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 Work Phone: [facility] 09-28-2021 10:32-0400 SaO2% (BldA) [Mass fraction] 95 % Delicia Older 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 Work Phone: [facility] 09-13-2021 11:25-0400 Body temperature 97.9 [degF] Ashwin Apodaca MD Work Phone: [facility] 09-13-2021 11:25-0400 Body weight 86.27 kg Ashwin Apodaca MD Work Phone: [facility] 09-13-2021 11:25-0400 Diastolic blood pressure 50 mm[Hg] Ashwin Apodaca MD Work Phone: [facility] 09-13-2021 11:25-0400 Heart rate 67 /min Ashwin Apodcaa MD Work Phone: [facility] 09-13-2021 11:25-0400 Respiratory rate 16 /min Ashwin Apodaca MD Work Phone: [facility] 09-13-2021 11:25-0400 SaO2% (BldA) [Mass fraction] 99 % Ashwin Apodaca MD Work Phone: [facility] 09-13-2021 11:25-0400 Systolic blood pressure 100 mm[Hg] Ashwin Apodaca MD Work Phone: [facility] 08-21-2021 12:00-0400 Diastolic blood pressure 51 mm[Hg] Dr. Brandon Cantor Work Phone: [facility] Work Phone: 08-21-2021 12:00-0400 Heart rate 59 /min Dr. Brandon Cantor Work Phone: [facility] Work Phone: 08-21-2021 12:00-0400 Systolic blood pressure 115 mm[Hg] Dr. Brandon Cantor Work Phone: [facility] Work Phone: 08-21-2021 10:47-0400 Body temperature 97.1 [degF] Dr. Brandon Cantor Work Phone: [facility] Work Phone: 08-21-2021 10:47-0400 Respiratory rate 14 /min Dr. Brandon Cantor Work Phone: [facility] Work Phone: 08-21-2021 10:14-0400 Body mass index (BMI) [Ratio] 26.4 kg/m2 Dr. Brandon Cantor Work Phone: [facility] Work Phone: 08-21-2021 10:14-0400 Body weight 83.[address] Brandon Cantor Work Phone: [facility] Work Phone: 08-21-2021 10:14-0400 SaO2% (BldA) [Mass fraction] 94 % Dr. Brandon Cantor Work Phone: [facility] Work Phone: 07-28-2021 15:43-0500 Body temperature 97.6 [degF] Dr. Brandon Cantor Work Phone: [facility] Work Phone: 07-28-2021 15:43-0500 Diastolic blood pressure 67 mm[Hg] Dr. Brandon Cantor Work Phone: [facility] Work Phone: 07-28-2021 15:43-0500 Heart rate 64 /min Dr. Brandon Cantor Work Phone: [facility] Work Phone: 07-28-2021 15:43-0500 Respiratory rate 18 /min Dr. Brandon Cantor Work Phone: [facility] Work Phone: 07-28-2021 15:43-0500 SaO2% (BldA) [Mass fraction] 92 % Dr. Brandon Cantor Work Phone: [facility] Work Phone: 07-28-2021 15:43-0500 Systolic blood pressure 140 mm[Hg] Dr. Brandon Cantor Work Phone: [facility] Work Phone: 07-28-2021 14:43-0500 Body temperature 97.6 [degF] Dr. Brandon Cantor Work Phone: [facility] Work Phone: 07-28-2021 14:43-0500 Diastolic blood pressure 67 mm[Hg] Dr. Brandon Cantor Work Phone: [facility] Work Phone: 07-28-2021 14:43-0500 Heart rate 64 /min Dr. Brandon Cantor Work Phone: [facility] Work Phone: 07-28-2021 14:43-0500 Respiratory rate 18 /min Dr. Brandon Cantor Work Phone: [facility] Work Phone: 07-28-2021 14:43-0500 SaO2% (BldA) [Mass fraction] 92 % Dr. Brandon Cantor Work Phone: [facility] Work Phone: 07-28-2021 14:43-0500 Systolic blood pressure 140 mm[Hg] Dr. Brandon Cantor Work Phone: [facility] Work Phone: 07-26-2021 15:18-0500 Body weight 88.[address] Brandon Cantor Work Phone: [facility] Work Phone: 07-26-2021 14:18-0500 Body weight 88.[address] Brandon Cantor Work Phone: [facility] Work Phone: 07-23-2021 23:03-0500 Body mass index (BMI) [Ratio] 28 kg/m2 Dr. Brandon Cantor Work Phone: [facility] Work Phone: 07-23-2021 22:42-0500 Inhaled oxygen concentration 2 % Dr. Brandon Cantor Work Phone: [facility] Work Phone: 07-23-2021 22:03-0500 Body mass index (BMI) [Ratio] 28 kg/m2 Dr. Brandon Cantor Work Phone: [facility] Work Phone: 07-23-2021 21:42-0500 Inhaled oxygen concentration 2 % Dr. Brandon Cantor Work Phone: [facility] Work Phone: 07-22-2021 15:34-0500 Body temperature 98.9 [degF] Dr. Brandon Cantor Work Phone: [facility] Work Phone: 07-22-2021 15:34-0500 Diastolic blood pressure 44 mm[Hg] Dr. Brandon Cantor Work Phone: [facility] Work Phone: 07-22-2021 15:34-0500 Heart rate 62 /min Dr. Brandon Cantor Work Phone: [facility] Work Phone: 07-22-2021 15:34-0500 Respiratory rate 18 /min Dr. Brandon Cantor Work Phone: [facility] Work Phone: 07-22-2021 15:34-0500 SaO2% (BldA) [Mass fraction] 91 % Dr. Brandon Cantor Work Phone: [facility] Work Phone: 07-22-2021 15:34-0500 Systolic blood pressure 100 mm[Hg] Dr. Brandon Cantor Work Phone: [facility] Work Phone: 07-22-2021 14:34-0500 Body temperature 98.9 [degF] Dr. Brandon Cantor Work Phone: [facility] Work Phone: 07-22-2021 14:34-0500 Diastolic blood pressure 44 mm[Hg] Dr. Brandon Cantor Work Phone: [facility] Work Phone: 07-22-2021 14:34-0500 Heart rate 62 /min Dr. Brandon Cantor Work Phone: [facility] Work Phone: 07-22-2021 14:34-0500 Respiratory rate 18 /min Dr. Brandon Cantor Work Phone: [facility] Work Phone: 07-22-2021 14:34-0500 SaO2% (BldA) [Mass fraction] 91 % Dr. Brandon Cantor Work Phone: [facility] Work Phone: 07-22-2021 14:34-0500 Systolic blood pressure 100 mm[Hg] Dr. Brandon Cantor Work Phone: [facility] Work Phone: 07-21-2021 14:06-0500 Body mass index (BMI) [Ratio] 28.1 kg/m2 Dr. Brandon Cantor Work Phone: [facility] Work Phone: 07-21-2021 14:06-05[address] Body weight [address] Brandon Cantor Work Phone: [facility] Work Phone: 07-21-2021 13:06-0500 Body mass index (BMI) [Ratio] 28.1 kg/m2 Dr. Brandon Cantor Work Phone: [facility] Work Phone: 07-21-2021 13:06-05[address] Body weight [address] Brandon Cantor Work Phone: [facility] Work Phone: 01-05-2017 08:52-0400 BMI (Body Mass Index) 29.02 kg/m2 Daja Monsivais PA-C [facility] Work Phone: 01-05-2017 08:52-0400 Body Temperature 98.1 [degF] Daja Monsivais PA-C [facility] [employer] Work Phone: 01-05-2017 08:52-0400 BP Diastolic 74 mm[Hg] Daja Monsivais PA-C [facility] [employer] Work Phone: 01-05-2017 08:52-0400 BP Systolic 140 mm[Hg] Daja Monsivais PA-C [facility] [employer] Work Phone: 01-05-2017 08:52-0400 Height 182.88 cm Daja Monsivais PA-C [facility] [employer] Work Phone: 01-05-2017 08:52-0400 Pulse (Heart Rate) 70 /min Daja Monsivais PA-C [facility] [employer] Work Phone: 01-05-2017 08:52-0400 Respiratory Rate 20 /min Daja Monsivais PA-C [facility] [employer] Work Phone: 01-05-2017 08:52-0400 Weight 97.07 kg Daja Monsivais PA-C [facility] Work Phone: Encounters Encounter Date Encounter Type Care Provider Facility Start: 12-20-2024 End: 12-20-2024 Patient encounter procedure Chris Pearson MD Work Phone: Neurology Comment on above: Parkinson's disease, unspecified whether dyskinesia present, unspecified whether manifestations fluctuate (HCC) (Primary Dx); Abnormality of gait; Lightheaded; Bradycardia Start: 12-20-2024 End: 12-20-2024 ambulatory CHRIS PEARSON JR Facility:[facility] Start: 12-13-2024 End: 12-13-2024 Patient encounter procedure Debra Castrjeon Work Phone: Podiatry Comment on above: Onychomycosis (Prima ry Dx); Pain in toe of left foot; Pain in toe of right foot; Callus of foot Start: 12-13-2024 End: 12-13-2024 ambulatory DEBRA JEWELLSIOMARA Facility:[facility] Start: 11-25-2024 End: 11-25-2024 Orders Only Douglas [...] Start: 11-15-2024 End: 11-15-2024 ambulatory BRANDON CANTOR Facility:[facility] Start: 10-18-2024 End: 10-18-2024 Office outpatient visit 25 minutes Brandon Cantor MD Work Phone: Internal [facility] [place] Comment on above: Near syncope (Primar y Dx); Primary hypertension; Bradyarrhythmia; 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; Parkinson's disease, unspecified whether dyskinesia present, unspecified whether manifestations fluctuate (HCC) Start: 10-18-2024 End: 10-18-2024 ambulatory BRANDON CANTOR Facility:[facility] Start: 09-27-2024 End: 09-27-2024 ambulatory BRANDON CANTOR Facility:[facility] Start: 09-20-2024 End: 09-23-2024 Telephone encounter Brandon Cantor MD Work Phone: [facility] [place] Comment on above: Patient Question Start: 09-12-2024 End: 09-12-2024 Office outpatient visit 25 minutes Brandon Cantor MD Work Phone: [facility] [place] Comment on above: Dizziness (Primary D x); Near syncope; Bradycardia; Orthostatic hypotension; Stage 3a chronic kidney disease (HCC); Abnormal CXR Start: 09-12-2024 End: 09-12-2024 ambulatory BRANDON CANTOR Facility:[facility] Start: 09-12-2024 End: 09-12-2024 Patient encounter procedure [...] Brandon Cantor MD Work Phone: [facility] [place] Comment on above: Patient Update Start: 09-02-2024 End: 09-02-[address] Brandon Cantor MD Work Phone: [facility] Work Phone: Start: 09-02-2024 End: 09-02-2024 Patient encounter procedure [address] [facility] -Laboratory Work Phone: Start: 09-02-2024 End: 09-02-2024 ambulatory [place] Facility:[facility] Start: 08-16-2024 End: 08-16-2024 Patient encounter procedure Chris Pearson MD Work Phone: Neurology Comment on above: Parkinson's disease, unspecified whether dyskinesia present, unspecified whether manifestations fluctuate (HCC) (Primary Dx); Abnormality of gait Start: 08-16-2024 End: 08-16-2024 ambulatory CHRIS PEARSON JR Facility:[facility] Start: 08-09-2024 End: 08-10-2024 Refill Brandon Cantor MD Work Phone: [facility] [place] Comment on above: Refill Request Start: 08-05-2024 End: 08-05-2024 ambulatory Chris Pearson Facility:[facility] Start: 08-05-2024 End: 08-05-[address] Chris Pearson MD -Physical Therapy Work Phone: Start: 07-30-2024 End: 07-31-2024 Refill Brandon Cantor MD Work Phone: [facility] [place] Comment on above: Refill Request Start: 06-17-2024 End: 06-17-[address] Emory Isabel DO [facility] Work Phone: Start: 06-17-2024 End: 06-17-2024 ambulatory [place] Cantor [place] [place]: 06-14-2024 End: 06-14-2024 ambulatory DEBRA CASTREJON Facility:[facility] Start: 06-14-2024 End: 06-14-2024 Patient encounter procedure Debra Castrejon Work Phone: Podiatry Comment on above: Onychomycosis (Prima ry Dx); Pain in toe of left foot; Pain in toe of right foot; Callus of foot Start: 06-06-2024 End: 06-06-2024 Telephone encounter Chris Pearson MD Work Phone: Neurology Start: 05-18-2024 End: 05-18-2024 ambulatory BRANDON CANTOR Facility:[facility] Start: 05-17-2024 End: 05-17-2024 ambulatory BRANDON CANTOR Facility:[facility] Start: 05-17-2024 End: 05-17-2024 Patient encounter procedure Brandon Cantor MD Work Phone: [facility] [place] Comment on above: Medicare annual well ness visit, subsequent (Primary Dx); Anxiety; Primary hypertension; Vasomotor rhinitis; Screening for depression; Parkinson's disease, unspecified whether dyskinesia present, unspecified whether manifestations fluctuate (HCC); 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); Platelets decreased (HCC); Stage 3a chronic kidney disease (HCC); Thyrotoxicosis without thyroid storm, unspecified thyrotoxicosis type; Need for COVID-19 vaccine; History of renal cell cancer Start: 05-13-2024 End: 05-13-2024 ambulatory CHRIS PEARSON JR Facility:[facility] Start: 05-13-2024 End: 05-13-2024 Patient encounter procedure Chris Pearson MD Work Phone: Neurology Comment on above: Parkinson's disease, unspecified whether dyskinesia present, unspecified whether manifestations fluctuate (HCC) (Primary Dx); Abnormality of gait Start: 05-06-2024 End: 05-06-2024 ambulatory Brandon Cantor [place] Start: 04-29-2024 End: 04-29-2024 Telephone encounter Brandon Cantor MD Work Phone: Internal Medicine [place] Comment on above: Letter for excuse fr om jury duty Start: 04-15-2024 End: 04-15-2024 ambulatory DOUGLAS MORTENSEN Facility:[facility] Start: 04-15-2024 End: 04-15-2024 Patient encounter procedure Douglas Mortensen MD Work Phone: Cardiology Comment on above: Primary hypertension (Primary Dx); Hyperlipidemia LDL goal <100; 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) Start: 04-09-2024 End: 04-09-2024 ambulatory Brandon Cantor Facility:[facility] Start: 04-01-2024 End: 04-01-2024 Refill Brandon Cantor MD Work Phone: [facility] [place] Comment on above: Refill Request Start: 03-22-2024 End: 03-22-2024 ambulatory Davrufus Smallssiomara VALDOVINOS [facility] [place] Start: 03-22-2024 End: 03-22-2024 Patient encounter procedure Davrufus De Santiago BONIFACIO [facility] [place] Comment on above: Population Health Na vigation Outreach ([facility] [place] [facility]) Start: 03-11-2024 End: 03-11-2024 ambulatory DEBRA CASTREJON Facility:[facility] Start: 03-11-2024 End: 03-11-2024 Patient encounter procedure [...] appointmen t Start: 01-29-2024 End: 01-29-2024 Refill Brandon Cantor MD Work Phone: [facility] [place] Comment on above: Refill Request Start: 01-22-2024 End: 01-22-2024 ambulatory Dav De Santiago [facility] [place] [place] Start: 01-22-2024 End: 01-22-2024 Patient encounter procedure Dav De Santiago MA [facility] Comment on above: Erroneous encounter- disregard Start: 12-14-2023 End: 12-14-2023 ambulatory Brandon Cantor [place] Start: 12-04-2023 End: 12-04-2023 Patient encounter procedure Debra Castrejon Work Phone: Podiatry Comment on above: Onychomycosis (Prima ry Dx); Pain in toe of left foot; Pain in toe of right foot Start: 11-22-2023 ambulatory Dav stanton [facility] [place] [place] Start: 11-22-2023 Patient encounter procedure Dav De Santiago MA [facility] Comment on above: Population Health Na vigation Outreach ([facility] CURRENT ROSTER workbench - Care gaps, HCC gap closure - [facility]) Start: 11-09-2023 End: 11-09-2023 Patient encounter procedure Brandon Cantor MD Work Phone: Internal Medicine [place] Comment on above: Bilateral hearing lo ss, unspecified hearing loss type (Primary Dx); Parkinson's disease, unspecified whether dyskinesia present, unspecified whether manifestations fluctuate ([facility]); Anxiety; Primary hypertension; Thyrotoxicosis without thyroid storm, unspecified thyrotoxicosis type; Need for COVID-19 vaccine Start: 09-12-2023 End: 09-12-[address] Brandon Cantor Work Phone: [facility] Work Phone: Start: 09-12-2023 End: 09-12-[address] Brandon Cantor Work Phone: [facility] Work Phone: Start: 09-01-2023 End: 09-01-[address] Brandon Cantor Work Phone: [facility] Work Phone: Start: 08-23-2023 End: 08-23-[address] Brandon Cantor Work Phone: [facility] Work Phone: Start: 08-23-2023 End: 08-23-[address] Brandon Cantor Work Phone: [facility] Work Phone: Start: 08-21-2023 Non-patient / Non-visit Dr. Magda Cantor Work Phone: [facility] Start: 08-20-2023 End: 08-21-2023 Evaluation and management of inpatient [facility]. [facility]: Start: 08-20-2023 Non-patient / Non-visit Dr. Magda Cantor Work Phone: [facility] Start: 08-19-2023 Non-patient / Non-visit Dr. Magda Cantor Work Phone: [facility] Start: 08-18-2023 Evaluation and management of inpatient Dr. Brandon Cant[facility] Work [facility]: Start: 08-18-2023 Non-patient / Non-visit Dr. Magda Cantor Work Phone: [facility] Start: 08-18-[address] Rakel Cantor Work Phone: [facility] Work Phone: Start: 08-17-2023 End: 08-17-2023 Patient encounter procedure Debra Castrejon Work Phone: Podiatry Comment on above: Onychomycosis (Prima ry Dx); Pain in toe of left foot; Pain in toe of right foot Start: 06-23-2023 End: 06-23-[address] Brandon Cantor Work Phone: [facility] Work Phone: Start: 06-23-2023 End: 06-23-[address] Brandon Cantor Work Phone: [facility] Work Phone: Start: 06-15-2023 End: 06-15-[address] Brandon Cantor Work Phone: [facility] Work Phone: Start: 06-15-2023 End: 06-15-[address] Brandon Cantor Work Phone: [facility] Work Phone: Start: 06-14-2023 End: 06-14-[address] Brandon Cantor Work Phone: [facility] Work Phone: Start: 04-19-2023 Non-patient / Non-visit Dr. Magda Cantor Work Phone: [facility] Start: 04-19-2023 End: 04-19-2023 Admission to same day surgery center Dr. Brandon Cantor Work Phone: [facility] Work Phone: Start: 04-19-2023 End: 04-19-[address] 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 Brandon Cantor Work Phone: [facility] Work Phone: Start: 04-05-2023 Non-patient / Non-visit Dr. Magda Cantor Work Phone: [facility] Start: 04-05-2023 End: 04-05-[address] Brandon Cantor Work Phone: [facility] Work Phone: Start: 04-05-2023 End: 04-05-[address] [facility] Start: 03-28-2023 Refill Brandon rizzo MD Work Phone: [facility] [place] Comment on above: Refill Request Start: 03-14-2023 Patient encounter procedure [facility] Provider [facility] Department Start: 03-09-2023 End: 03-09-[address] Brandon Cantor Work Phone: [facility] Work Phone: Start: 02-21-2023 End: 02-21-[address] Brandon Cantor Work Phone: [facility] Work Phone: Start: 02-21-2023 End: 02-21-[address] [facility] Work Phone: Start: 02-13-2023 Patient encounter procedure [facility] Provider [facility] Start: 02-03-2023 End: 02-03-2023 Patient encounter procedure Debra Jewellhernando Work Phone: Podiatry Comment on above: Onychomycosis (Prima ry Dx); Pain in toe of left foot; Pain in toe of right foot Start: 02-02-2023 Non-patient / Non-visit Dr. Magda Cantor Work Phone: [facility] Start: 02-02-2023 End: 02-02-2023 Admission to same day surgery center Dr. Brandon Cantor Work Phone: [facility] Work Phone: Start: 02-02-2023 End: 02-02-[address] Brandon Cantor Work Phone: [facility] Work Phone: Start: 01-23-2023 Refill Brandon rizzo MD Work Phone: [facility] [place] Comment on above: Refill Request Start: 01-12-2023 End: 01-12-[address] Brandon Cantor Work Phone: [facility] Work Phone: Start: 12-28-2022 End: 12-28-[address] Brandon Cantor Work Phone: [facility] Work Phone: Start: 12-12-2022 End: 12-12-[address] Brandon Cantor Work Phone: [facility], [facility] Work Phone: Start: 11-23-2022 End: 11-23-[address] Brandon Canotr Work Phone: [facility] Work Phone: Start: 11-04-2022 End: 11-04-2022 Patient encounter procedure Delicia Olamide GOMEZ Work Phone: [facility] [place] Comment on above: Primary hypertension (Primary Dx); Chronic diarrhea; Anxiety; Insomnia, unspecified type; Hyperlipidemia LDL goal <100; Hyperthyroidism, subclinical; Platelets decreased (HCC) Start: 09-20-2022 End: 09-20-[address] Brandon Cantor Work Phone: [facility] Work Phone: Start: 09-20-2022 End: 09-20-[address] Brandon Cantor Work Phone: [facility] Start: 09-08-2022 End: 09-08-[address] Brandon Cantor Work Phone: [facility] Endocrinology Start: 09-02-2022 End: 09-02-[address] Brandon Cantor Work Phone: [facility] Gastroenterology Start: 08-31-2022 End: 08-31-2022 Subsequent hospital visit by physician [facility] (I-Stat/1.5t) Work Phone: Radiology Comment on above: Transient cerebral i schemia, unspecified type [G45.9] Start: 08-11-2022 End: 08-11-2022 Patient encounter procedure Angelicacuauhtemoc Ledbetter APRN.CNP Work Phone: Neurology Comment on above: Parkinson's disease (HCC) (Primary Dx); TIA (transient ischemic attack); Transient cerebral ischemia, unspecified type; Diplopia; Vertigo Start: 08-10-2022 ambulatory Brandon rizzo MD Work Phone: [facility] [place] Comment on above: Dizziness Start: 08-10-2022 End: 08-10-2022 Emergency department patient visit Dr. 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 Brandon Cantor Work Phone: [facility] Work Phone: Start: 06-27-2022 End: 06-27-[address] Brandon Cantor Work Phone: [facility]Labor[facility], Specimen Start: 06-23-2022 End: 06-23-[address] Brandon Cantor Work Phone: [facility] Work Phone: Start: 06-23-2022 End: 06-23-[address] 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 Brandon Cantor Work Phone: [facility] Work Phone: Start: 06-07-2022 End: 06-07-[address] Brandon Cantor Work Phone: [facility] Start: 05-10-2022 End: 05-10-[address] Brandon Cantor Work Phone: [facility] Gastroenterology Start: 05-03-2022 Patient Outreach Brandon aguilera MD Work Phone: [facility] [place] Comment on above: Transition Of Care Start: 04-30-2022 End: 05-01-2022 Evaluation and management of inpatient Dr. Brandon Cantor Work Phone: [facility] 3 Start: 04-30-2022 Non-patient / Non-visit Dr. Magda Cantor Work Phone: [facility] Start: 04-29-2022 Non-patient / Non-visit Dr. Magda Cantor Work Phone: [facility] Start: 04-26-2022 Non-patient / Non-visit Dr. Magda Cantor Work Phone: [facility] Start: 04-26-2022 End: 04-26-2022 Admission to same day surgery center Dr. Brandon Cantor Work Phone: [facility] Start: 04-26-2022 End: 04-26-[address] Brandon Cantor Work Phone: [facility] Work Phone: Start: 04-12-2022 End: 04-12-[address] Brandon Cantor Work Phone: [facility] Start: 04-07-2022 End: 04-07-[address] Brandon Cantor Work Phone: [facility] Endocrinology Start: 04-05-2022 End: 04-05-2022 Patient encounter procedure Debra Castrejon Work Phone: Podiatry Comment on above: Onychomycosis (Prima ry Dx); Pain in toe of left foot; Pain in toe of right foot Start: 04-04-2022 End: 04-04-2022 Patient encounter procedure Douglas Mortensen MD Work Phone: Cardiology Comment on above: Coronary artery dise ase involving gambell coronary artery of gambell heart without angina pectoris [I25.10 (ICD-10-CM)] (Primary Dx) Start: 04-01-2022 End: 04-01-2022 Patient encounter procedure Delicia Quiñonez APRN.CNP Work Phone: [facility] [place] Comment on above: Medicare annual well ness visit, subsequent (Primary Dx); Chronic diarrhea; Anxiety; Insomnia, unspecified type; Primary hypertension; Hyperlipidemia LDL goal <100; Abnormal weight loss; Hyperthyroidism, subclinical; Encounter for immunization; Multiple lung nodules on CT; 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 Magda Cantor Work Phone: [facility] Start: 03-29-2022 End: 03-29-[address] Brandon Cantor Work Phone: [facility] Start: 03-01-2022 End: 03-01-[address] Brandon Cantor Work Phone: [facility] Gastroenter[facility] Start: 02-16-2022 End: 02-24-2022 Evaluation and management of inpatient Dr. Brandon Cantor Work Phone: [facility] 3 Start: 02-14-2022 End: 02-14-[address] Brandon Cantor Work Phone: [facility] Work Phone: Start: 02-14-2022 End: 02-14-[address] Brandon Cantor Work Phone: [facility] Start: 02-14-2022 End: 02-14-[address] Brandon Cantor Work Phone: [facility] Neurology Start: 01-14-2022 Refill Brandon rizzo MD Work Phone: [facility] [place] Comment on above: Refill Request Start: 01-06-2022 End: 01-06-[address] Brandon Cantor Work Phone: [facility] Start: 01-03-2022 End: 01-03-[address] [facility] Start: 12-27-2021 Refill Brandon rizzo MD Work Phone: [facility] [place] Comment on above: Refill Request Start: 12-07-2021 End: 12-07-[address] Brandon Cantor Work Phone: [facility] Start: 12-03-2021 End: 12-03-2021 Patient encounter procedure Debra Jewellhernando Work Phone: Podiatry Comment on above: Onychomycosis (Prima ry Dx); Pain in toe of left foot; Pain in toe of right foot Start: 12-01-2021 Telephone encounter Brandon foley MD Work Phone: [facility] [place] Comment on above: Patient Question Start: 11-30-2021 End: 11-30-[address] Brandon Cantor Work Phone: [facility] Endocrinology Start: 11-25-2021 End: 11-25-2021 Patient encounter procedure Angelica Ledbetter APRN.CNP Work Phone: Neurology Comment on above: Parkinson's disease (HCC) (Primary Dx) Start: 11-17-2021 End: 11-17-2021 Patient encounter procedure Brandon Cantor MD Work Phone: [facility] [place] Comment on above: Chronic diarrhea (Pr imary Dx); Abnormal weight loss; Anxiety; Parkinson's disease (HCC) Start: 11-15-2021 End: 11-15-[address] Brandon Cantor Work Phone: [facility] Start: 11-14-2021 End: 11-14-2021 Emergency department patient visit Dr. Brandon Cantor Work Phone: [facility] Start: 10-28-2021 End: 10-28-[address] Brandon Cantor Work Phone: [facility] Start: 10-28-[address] Jamie Cantor Work Phone: [facility] Start: 10-19-2021 Non-patient / Non-visit Dr. Magda Cantor Work Phone: [facility] Start: 10-18-2021 Non-patient / Non-visit Dr. Magda Cantor Work Phone: [facility] Start: 10-18-2021 Telephone encounter Brandon foley MD Work Phone: [facility] [place] Comment on above: Patient Update Start: 10-18-2021 Non-patient / Non-visit Dr. Magda Cantor Work Phone: [facility] Start: 10-18-2021 End: 10-19-2021 Evaluation and management of inpatient Dr. Brandon Cantor Work Phone: [facility] Start: 10-18-2021 End: 10-18-[address] Brandon Cantor Work Phone: [facility] Endocrin[facility] Start: 10-15-2021 End: 10-15-2021 Emergency department patient visit Dr. Brandon Cantor Work Phone: [facility] Start: 10-11-2021 End: 10-11-2021 ambulatory Daja Lemus Alfred MANZANARES Work Phone: Neurology Comment on above: Parkinson disease (H CC) (Primary Dx); Tremor of both hands; Abnormal gait; Family history of Parkinson disease Start: 10-11-2021 End: 10-11-2021 Telemedicine consultation with patient Daja Lemus Alfred MANZANARES Work Phone: [facility] Start: 09-28-2021 End: 09-28-2021 Patient encounter procedure Delicia Quiñonez APRN.CNP Work Phone: [facility] [place] Comment on above: Tremor of both hands (Primary Dx); Abnormal gait; Family history of Parkinson disease; Hyperthyroidism, subclinical Start: 09-13-2021 Telephone encounter Tu Apodaca MD Work Phone: [facility] [place] Comment on above: Results Start: 09-13-2021 End: 09-13-2021 Subsequent hospital visit by physician [facility] (I-Stat) Work Phone: Cat Scan Comment on above: Right lower quadrant abdominal pain [R10.31] Start: 09-13-2021 End: 09-13-2021 Patient encounter procedure Ashwin Apodaca MD Work Phone: [facility] [place] Comment on above: Right lower quadrant abdominal pain Start: 09-03-2021 Telephone encounter Brandon foley MD Work Phone: [facility] [place] Comment on above: Insurance Authorizat ion Medication Request Start: 09-01-2021 Telephone encounter Brandon foley MD Work Phone: [facility] [place] Comment on above: Patient Question Start: 08-21-2021 End: 08-21-2021 Emergency department patient visit Dr. Brandon Cantor Work Phone: [facility] Start: 07-28-2021 Non-patient / Non-visit Dr. Magda Cantor Work Phone: [facility] Start: 07-27-2021 Non-patient / Non-visit Dr. Magda Cantor Work Phone: [facility] Start: 07-26-2021 Non-patient / Non-visit Dr. Magda Cantor Work Phone: [facility] Start: 07-25-2021 Non-patient / Non-visit Dr. Magda Cantor Work Phone: [facility] Start: 07-24-2021 Non-patient / Non-visit Dr. Magda Cantor Work Phone: [facility] Start: 07-23-2021 Non-patient / Non-visit Dr. Magda Cantor Work Phone: [facility] Start: 07-23-2021 End: 07-28-2021 Evaluation and management of inpatient [facility]. [facility] Start: 07-23-2021 Non-patient / Non-visit Dr. Magda Cantor Work Phone: [facility] Start: 07-22-2021 Non-patient / Non-visit Dr. Magda Cantor Work Phone: [facility] Start: 07-21-2021 Non-patient / Non-visit Dr. Magda Cantor Work Phone: [facility] Start: 07-21-2021 End: 07-22-2021 Evaluation and management of inpatient [facility]. [facility] Start: 07-10-2021 End: 07-10-[address] Brandon Cantor Work Phone: [facility] Procedures Date Procedure Procedure Detail Performing Clinician Start: 09-12-2024 Ecg routine ecg w/least 12 lds i&r only [facility] Provider Start: 09-10-2024 Plain chest X-ray Dr. Brandon Cantor MD Work Phone: Start: 06-17-2024 X-ray of lumbar spine, two or three views Dr. Brandon Cantor MD Work Phone: Start: 06-17-2024 Plain x-ray of pelvis and lower extremity Dr. Brandon Cantor MD Work Phone: Start: 05-17-2024 [employer] COVID-19 VACCINE AGE 12+ YR (COMIRNATY) Brandon Cantor MD Work Phone: Start: 05-17-2024 Adult depression screening assessment Brandon Cantor MD Work Phone: Start: 04-09-2024 Colonoscopy Douglas Mortensen MD Work Phone: Start: 11-09-2023 [employer] COVID-19 VACCINE (2022- SEASON) AGE 12+ YR [...] brain stem w/o contrast material Angelica Ledbetter PORTABLE IRRIGATION OPERATORJoséADJUNCT ART HISTORY INSTRUCTOR Work Phone: Start: 08-10-2022 CT of head [...] Dr. Brandon Cantor Work Phone: Start: 04-01-2022 [employer] COVID-19 BIVALENT BOOSTER VACCINE, AGE 12+ YR Delicia Older PORTABLE IRRIGATION OPERATOR.ALFREDO Work Phone: Start: 02-16-[address] [...] DTaP,Tdap,Td Vaccine (3 - Td or Tdap) [facility] Start: 03-15-2028 Urine microalbumin profile [facility] Start: 09-28-2027 Diabetes Screening Diabetes Screening [facility] Start: 05-18-2027 Diabetes Screening Diabetes Screening [facility] Start: 05-16-2026 Diabetes Screening Diabetes Screening [facility] Start: 11-15-2025 Annual PCP Team Chronic Disease Visit Annual PCP Team Chronic Disease Visit [facility] Start: 10-18-2025 Annual PCP Team Chronic Disease Visit Annual PCP Team Chronic Disease Visit [facility] Start: 10-18-2025 BP Controlled (<130/80) BP Controlled (<130/80) [facility] Start: 09-27-2025 Creatinine measurement Serum Creatinine [facility] Start: 09-12-2025 Annual PCP Team Chronic Disease Visit Annual PCP Team Chronic Disease Visit [facility] Start: 09-12-2025 BP Controlled (<130/80) BP Controlled (<130/80) [facility] Start: 08-16-2025 BP Controlled (<130/80) BP Controlled (<130/80) [facility] Start: 05-18-2025 Complete blood count Hemoglobin/Hematocrit [facility] Start: 05-18-2025 Creatinine measurement Serum Creatinine [facility] Start: 05-18-2025 Hepatitis B surface antibody level LDL Cholesterol [facility] Start: 05-17-2025 Annual PCP Team Chronic Disease Visit Annual PCP Team Chronic Disease Visit [facility] Start: 05-17-2025 BP Controlled (<130/80) BP Controlled (<130/80) [facility] Start: 05-17-2025 Depression Screening Depression Screening [facility] Start: 04-28-2025 End: 04-28-2025 Patient encounter procedure Cardiology Comment on above: 1yr follow up Start: 04-15-2025 BP Controlled (<130/80) BP Controlled (<130/80) [facility] Start: 04-11-2025 End: 04-11-2025 Patient encounter procedure 04/11/2025 3:40 PM EST Office Visit Neurology [address] [place] [id number] Chris Pearson Jr., MD [address] [place] [address] follow up for [place] Neurology Comment on above: follow up for [place] Start: 04-09-2025 Screening for malignant neoplasm of colon [facility] Start: 03-28-2025 End: 03-28-2025 Patient encounter procedure 03/28/2025 1:40 PM EDT Office Visit Podiatry [address] [place] [address] Debra Castrejon [address] [place] [address] 3 month follow up nail care Podiatry Comment on above: 3 month follow up nail care Start: 02-03-2025 Influenza vaccination Influenza Vaccine (#1) [facility] Start: 01-17-2025 End: 01-17-2025 Patient encounter procedure 01/17/2025 2:20 PM EDT Office Visit [facility] Cardiology [address] [address] Jhonathan Merlos MD [address] [place] [address] ref for Sinus bradycardia by Dr. Balbina jiménez [facility] Cardiology [place] Comment on above: ref for Sinus bradycardia by Dr. Balbina arreaga rs Start: 01-16-2025 End: 01-16-2025 Patient encounter procedure 01/16/2025 2:40 PM EDT Office Visit [facility] [place] [address] [place], [place] [address] Brandon Cantor MD [address] [place], [place] [id number] 2 month f/u [facility] [place] Comment on above: 2 month f/u Start: 12-20-2024 End: 12-20-2024 Patient encounter procedure 12/20/2024 1:00 PM EDT Office Visit Neurology [address] [place], [place] [id number] Chris Pearson Jr., MD [address] [place], [place] [id number] 3 month PD follow up, 60 per [facility] Neurology Comment on above: 3 month PD follow up, 60 per [facility] Start: 12-13-2024 End: 12-13-2024 Patient encounter procedure 12/13/2024 3:20 PM EDT Office Visit Podiatry [address] [place], [place] [id number] Debra Castrejon [address] [place], [place] [address] 3 month follow up nail care Podiatry Comment on above: 3 month follow up nail care Start: 11-15-2024 Covid-19 Vaccine ( season) Covid-19 Vaccine ( season) [facility] Start: 11-15-2024 End: 11-15-2024 Patient encounter procedure 11/15/2024 11:40 AM EDT Office Visit [facility] [place] [address] [place] [address] Brandon Cantor MD [address] [place] [address] 6 month follow up [facility] [place] Comment on above: 6 month follow up Start: 11-08-2024 Annual PCP Team Chronic Disease Visit Annual PCP Team Chronic Disease Visit [facility] Start: 11-08-2024 BP Controlled (<130/80) BP Controlled (<130/80) [facility] Start: 10-12-2024 End: 01-11-2025 Basic metabolic 2000 panel - Serum or Plasma BASIC METABOLIC PANEL Lab Routine Stage 3a chronic kidney disease (HCC) Expected: 10/12/2024, Expires: 01/11/2025 [facility] Work Phone: Comment on above: Expected: 10/12/2024, Expires: 5 Start: 10-12-2024 End: 10-12-2025 XR Chest PA and Lateral XR CHEST 2V FRONTAL/LAT Radiology Routine Abnormal CXR Expected: 10/12/2024, Expires: 10/12/2025 [facility] Comment on above: Expected: 10/12/2024, Expires: 6 Start: 09-13-2024 DIABETES SCREEN DIABETES SCREEN [facility] Start: 09-13-2024 Diabetes Screening Diabetes Screening [facility] Start: 09-12-2024 End: 09-12-2024 Patient encounter procedure Podiatry Comment on above: 3 month follow up nial care Start: 09-10-2024 [facility] Start: 09-10-2024 [facility] Start: 09-10-2024 [facility] Start: 08-16-2024 DIABETES SCREEN DIABETES SCREEN [facility] Start: 08-16-2024 End: 08-16-2024 Patient encounter procedure 08/16/2024 11:40 AM EDT Office Visit Neurology [address] [place] [address] Chris Pearson Jr., MD [address] [place], [place] [id number] 8 week follow up Neurology Comment on above: 8 week follow up Start: 06-14-2024 End: 06-14-2024 Patient encounter procedure Podiatry Comment on above: 3 month follow up [facility] Start: 06-06-2024 End: 06-06-2024 ambulatory 06/06/2024 10:00 AM EST OT/PT/Speech Visit [facility] [address] [place] [address] Eliezer Marie PT Parkinson's disease, unspecified whether dyskinesia present, unspecified whether manifestations fluctuate (HCC) [G20.A1]; Abnormality of gait [R26.9] [facility] Comment on above: Parkinson's disease, unspecified whether dyskinesia present, unspecified whether manifestations fluctuate (HCC) [G20.A1]; Abnormality of gait [R26.9] Start: 06-05-2024 Advance Directive Discussion Advance Directive Discussion [facility] Start: 06-05-2024 Medicare Advantage Annual Wellness Visit Medicare Advantage Annual Wellness Visit [facility] Start: 05-17-2024 End: 05-17-2024 Patient encounter procedure 05/17/2024 11:00 AM EST Office Visit [facility] [place] [address] [place], [place] [address] Brandon Cantor MD [address] [place], [place] [phone] Medicare Wellness - 6 month follow up [facility] [place] Comment on above: Medicare Wellness - 6 month follow up Start: 05-16-2024 Complete blood count Hemoglobin/Hematocrit [facility] Start: 05-16-2024 Creatinine measurement Serum Creatinine [facility] Start: 05-16-2024 Hepatitis B surface antibody level LDL Cholesterol [facility] Start: 05-13-2024 End: 05-13-2024 Patient encounter procedure [...] End: 05-10-2024 Patient encounter procedure [facility] [place] Comment on above: 6 month follow up/medicare wellness Medicare Wellness - 6 month follow up Start: 05-10-2024 Annual PCP Team Chronic Disease Visit Annual PCP Team Chronic Disease Visit [facility] Start: 05-10-2024 BP Controlled (<130/80) BP Controlled (<130/80) [facility] Start: 05-10-2024 End: 08-09-2024 CBC panel - Blood by Automated count COMPLETE BLOOD COUNT Lab Routine Primary hypertension Expected: 05/10/2024, Expires: 08/09/2024 [facility] Comment on above: Expected: 05/10/2024, Expires: Start: 05-10-2024 End: 08-09-2024 Comprehensive metabolic 2000 panel - Serum or Plasma COMPREHENSIVE METABOLIC PANEL Lab Routine Primary hypertension Expected: 05/10/2024, Expires: 08/09/2024 [facility] Work Phone: Comment on above: Expected: 05/10/2024, Expires: Start: 05-10-2024 End: 08-09-2024 Lipid 1996 panel - Serum or Plasma LIPID PANEL BASIC Lab Routine Primary hypertension Expected: 05/10/2024, Expires: 08/09/2024 [facility] Comment on above: Expected: 05/10/2024, Expires: Start: 05-10-2024 End: 08-09-2024 Thyrotropin [Units/volume] in Serum or Plasma THYROID STIMULATING HORMONE Lab Routine Thyrotoxicosis without thyroid storm, unspecified thyrotoxicosis type Expected: 05/10/2024, Expires: 08/09/2024 [facility] Comment on above: Expected: 05/10/2024, Expires: Start: 05-10-2024 End: 08-09-2024 Thyroxine (T4) free [Mass/volume] in Serum or Plasma T4 FREE/FREE THYROXINE Lab Routine Thyrotoxicosis without thyroid storm, unspecified thyrotoxicosis type Expected: 05/10/2024, Expires: 08/09/2024 [facility] Comment on above: Expected: 05/10/2024, Expires: Start: 04-17-2024 BP Controlled (<130/80) BP Controlled (<130/80) [facility] Start: 04-15-2024 End: 04-15-2024 Patient encounter procedure 04/15/2024 3:20 PM EST Office Visit Cardiology [address] [place] [phone] Douglas Mortensen MD [address] [facility], [address] [place] [address] 1 year follow up Cardiology Comment on above: 1 year follow up Start: 04-01-2024 End: 04-01-2024 Patient encounter procedure 04/01/2024 3:20 PM EDT Office Visit Neurology [address] [place] [address] Chris Pearson Jr., MD [address] [facility] [address] [place] [phone] parkinsons Neurology Comment on above: parkinsons Start: 03-11-2024 End: 03-11-2024 Patient encounter procedure 03/11/2024 2:00 PM EDT Office Visit Podiatry [address] [place], [place] [id number] Debra Castrejon [address] [place] [address] 3 month follow up nail care Podiatry Comment on above: 3 month follow up nail care Start: 02-04-2024 Covid-19 Vaccine ( season) Covid-19 Vaccine () [facility] Start: 02-04-2024 Influenza vaccination Influenza Vaccine (#1) [facility] Start: 01-22-2024 End: 01-22-2024 Patient encounter procedure 01/22/2024 4:40 PM EDT Office Visit Neurology [address] [place] [address] Chris Pearson Jr., MD [address] [facility] [place] [phone] parkinsons Neurology Comment on above: parkinsons Start: 12-04-2023 End: 12-04-2023 Patient encounter procedure 12/04/2023 2:00 PM EDT Office Visit Podiatry [address] [place], [place] [id number] Debra Castrejon [address] [facility] [place] [address] 3 month follow up nail care (R/S from provider out of office on 11/30) Podiatry Comment on above: 3 month follow up nail care (R/S from pr ovider out of office on 11/30) Start: 11-05-2023 ANNUAL PCP TEAM CHRONIC DISEASE VISIT ANNUAL PCP TEAM CHRONIC DISEASE VISIT [facility] Start: 11-05-2023 BP CONTROLLED (<130/80) BP CONTROLLED (<130/80) [facility] Start: 08-23-2023 Patient referral [facility] Work Phone: Start: 08-21-2023 Patient discharge [facility] Start: 08-20-2023 Admission procedure [facility] Start: 08-19-2023 Oxygen therapy [facility] Start: 08-19-2023 Referral to service [facility] Start: 08-19-2023 [facility] Start: 08-19-2023 [facility] Start: 08-19-2023 Application of intermittent pneumatic compression device [facility] Start: 08-19-2023 Referral to occupational therapist [facility] Start: 08-19-2023 Referral to service [facility] Start: 08-19-2023 Introduction of urinary catheter [facility] Start: 08-18-2023 Maintenance of drainage tube [facility] Start: 08-18-2023 [facility] Start: 08-18-2023 Cholangiogram Cholangiogram/ O R,Initial [facility] Start: 08-18-2023 Fluoroscopic guidance O.R. Fluoro for C-Arm [facility] Start: 08-18-2023 Total cholecystectomy and exploration of common bile duct Laparoscopic, Cholecystectomy with IOC (Not Applicable) [facility] Start: 08-18-2023 Following clinical pathway protocol [facility] Start: 08-18-2023 Ambulation without limitation [facility] Start: 08-18-2023 Catheterization of vein [facility] Start: 08-18-2023 Incentive spirometry [facility] Start: 08-18-2023 Measuring intake and output [facility] Start: 08-18-2023 Notification of physician [facility] Start: 08-18-2023 Vital signs measurements [facility] Start: 08-18-2023 End: 08-19-2023 [facility] Start: 08-18-2023 Verification routine [facility] Start: 08-18-2023 Admission procedure [facility] Start: 08-12-2023 BP CONTROLLED (<130/80) BP CONTROLLED (<130/80) [facility] Start: 08-05-2023 ANNUAL PCP TEAM CHRONIC DISEASE VISIT ANNUAL PCP TEAM CHRONIC DISEASE VISIT [facility] Start: 06-05-2023 Advance Directive Discussion Advance Directive Discussion [facility] Start: 06-05-2023 Behavioral Health Screening Behavioral Health Screening [facility] Start: 06-05-2023 Depression Assessment Depression Assessment [facility] Start: 05-06-2023 End: 07-06-2023 Lipid 1996 panel - Serum or Plasma LIPID PANEL BASIC Lab Routine Hyperlipidemia LDL goal <100 Expected: 05/06/2023 (Approximate), Expires: 07/06/2023 [facility] Work Phone: Comment on above: Expected: 05/06/2023 (Approximate), Expi res: 07/06/2023 Start: 05-05-2023 ANNUAL PCP TEAM CHRONIC DISEASE VISIT ANNUAL PCP TEAM CHRONIC DISEASE VISIT [facility] Start: 04-26-2023 Colonoscopy COLONOSCOPY [facility] Start: 04-26-2023 COLORECTAL CANCER SCREENING COLORECTAL CANCER SCREENING [facility] Start: 04-26-2023 Screening for malignant neoplasm of colon [facility] Start: 04-19-2023 Egd dilation gastric/duodenal stricture EGD DILATE STRICTURE [facility] Start: 04-19-2023 Esophagogastroduodenoscopy submucosal injection UPPR GI SCOPE W/SUBMUC INJ [facility] Start: 04-19-2023 Patient discharge [facility] Start: 04-08-2023 Hepatitis B surface antibody level LDL CHOLESTEROL [facility] Start: 04-04-2023 BP CONTROLLED (<130/80) BP CONTROLLED (<130/80) [facility] Start: 04-01-2023 ANNUAL PCP TEAM CHRONIC DISEASE VISIT ANNUAL PCP TEAM CHRONIC DISEASE VISIT [facility] Start: 04-01-2023 BP CONTROLLED (<130/80) BP CONTROLLED (<130/80) [facility] Start: 03-17-2023 BP CONTROLLED (<130/80) BP CONTROLLED (<130/80) [facility] Start: 02-03-2023 Covid-19 Vaccine () Covid-19 Vaccine () [facility] Start: 02-03-2023 Influenza vaccination INFLUENZA (#1) [facility] Start: 02-02-2023 Egd insert guide wire dilator passage esophagus EGD GUIDE WIRE INSERTION [facility] Start: 02-02-2023 Egd transoral biopsy single/multiple EGD BIOPSY SINGLE/MULTIPLE [facility] Start: 02-02-2023 Patient discharge [facility] Start: 11-17-2022 ANNUAL PCP TEAM CHRONIC DISEASE VISIT ANNUAL PCP TEAM CHRONIC DISEASE VISIT [facility] Start: 11-17-2022 BP CONTROLLED (<130/80) BP CONTROLLED (<130/80) [facility] Start: 10-09-2022 Adult depression screening assessment DEPRESSION SCREENING [facility] Start: 09-28-2022 ANNUAL PCP TEAM CHRONIC DISEASE VISIT ANNUAL PCP TEAM CHRONIC DISEASE VISIT [facility] Start: 09-28-2022 BP CONTROLLED (<130/80) BP CONTROLLED (<130/80) [facility] Start: 09-13-2022 ANNUAL PCP TEAM CHRONIC DISEASE VISIT ANNUAL PCP TEAM CHRONIC DISEASE VISIT [facility] Start: 09-13-2022 BP CONTROLLED (<130/80) BP CONTROLLED (<130/80) [facility] Start: 08-16-2022 ANNUAL PCP TEAM CHRONIC DISEASE VISIT ANNUAL PCP TEAM CHRONIC DISEASE VISIT [facility] Start: 08-16-2022 BP CONTROLLED (<130/80) BP CONTROLLED (<130/80) [facility] Start: 08-02-2022 COVID-19 VACCINE (6 - Mixed Product series) COVID-19 VACCINE (6 - Mixed Product series) [facility] Start: 06-14-2022 End: 07-14-2023 Ct thorax w/o contrast material CT CHEST WO IVCON Radiology Routine Lung nodules 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) Expected: 06/14/2022, Expires: 07/14/2023 [facility] Work Phone: Comment on above: Expected: 06/14/2022, Expires: Start: 06-05-2022 ADVANCE DIRECTIVE DISCUSSION ADVANCE DIRECTIVE DISCUSSION [facility] Start: 06-05-2022 DEPRESSION ASSESSMENT DEPRESSION ASSESSMENT [facility] Start: 05-01-2022 Patient discharge [facility] Start: 04-30-2022 Admission procedure [facility] Start: 04-29-2022 Oxygen therapy [facility] Start: 04-29-2022 Assessment of risk of venous thromboembolism [facility] Start: 04-29-2022 Catheterization of vein [facility] Start: 04-29-2022 Incentive spirometry [facility] Start: 04-29-2022 Insertion of catheter into peripheral vein [facility] Start: 04-29-2022 Measuring intake and output [facility] Start: 04-29-2022 Providing care according to standard [facility] Start: 04-29-2022 Provision of activity privileges [facility] Start: 04-29-2022 Referral to occupational therapist [facility] Start: 04-29-2022 Referral to service [facility] Start: 04-29-2022 [facility] Start: 04-29-2022 Following clinical pathway protocol [facility] Start: 04-29-2022 Admission procedure [facility] Start: 04-29-2022 Patient referral to dietitian [facility] Start: 04-26-2022 Colonoscopy w/biopsy single/multiple COLONOSCOPY AND BIOPSY [facility] Start: 04-26-2022 Colsc flexible w/transendoscopic balloon dilat COLONOSCOPY W/BALLOON DILAT [facility] Start: 11-22-2022 Colsc flx w/rmvl of tumor polyp lesion snare tq COLONOSCOPY W/LESION REMOVAL [facility] Start: 04-26-2022 Patient discharge [facility] Start: 04-01-2022 End: 06-01-2022 Lipid 1996 panel - Serum or Plasma LIPID PANEL BASIC Lab Routine Hyperlipidemia LDL goal <100 Expected: 04/01/2022, Expires: 06/01/2022 [facility] Work Phone: Comment on above: Expected: 04/01/2022, Expires: Start: 02-24-2022 Patient discharge [facility] Start: 02-18-2022 Consultation [facility] Start: 02-18-2022 Referral to occupational therapist [facility] Start: 02-18-2022 Referral to service [facility] Start: 02-18-2022 Oxygen therapy [facility] Start: 02-17-2022 [facility] Start: 02-17-2022 Referral to occupational therapist [facility] Start: 02-17-2022 Referral to service [facility] Start: 02-17-2022 Removal of urinary catheter [facility] Start: 02-16-2022 Following clinical pathway protocol [facility] Start: 02-16-2022 Admission procedure [facility] Start: 02-14-2022 [place] and lambda light chains [facility] Work Phone: Start: 02-14-2022 Thiamine measurement [facility] Work Phone: Start: 02-14-2022 Vitamin D, 1,25-dihydroxy measurement [facility] Work Phone: Start: 02-09-2022 Hepatitis B surface antibody level LDL CHOLESTEROL [facility] Start: 02-03-2022 Influenza vaccination INFLUENZA (#1) [facility] Start: 12-10-2021 COVID-19 VACCINE (5 - Booster) COVID-19 VACCINE (5 - Booster) [facility] Start: 11-14-2021 Enteric precautions [facility] Work Phone: Start: 10-19-2021 Patient discharge [facility] Work Phone: Start: 10-18-2021 Application of intermittent pneumatic compression device [facility] Work Phone: Start: 10-18-2021 Following clinical pathway protocol [facility] Work Phone: Start: 10-18-2021 Assessment of risk of venous thromboembolism [facility] Work Phone: Start: 10-18-2021 Cardiac monitoring [facility] Work Phone: Start: 10-18-2021 Catheterization of vein [facility] Work Phone: Start: 10-18-2021 Elevation of head of bed [facility] Work Phone: Start: 10-18-2021 Exercises [facility] Work Phone: Start: 10-18-2021 Implementation of planned interventions [facility] Work Phone: Start: 10-18-2021 Incentive spirometry [facility] Work Phone: Start: 10-18-2021 Insertion of catheter into peripheral vein [facility] Work Phone: Start: 10-18-2021 Measuring intake and output [facility] Work Phone: Start: 10-18-2021 Notification of physician [facility] Work Phone: Start: 10-18-2021 Oxygen therapy [facility] Work Phone: Start: 10-18-2021 Providing care according to standard [facility] Work Phone: Start: 10-18-2021 Referral to occupational therapist [facility] Work Phone: Start: 10-18-2021 Referral to service [facility] Work Phone: Start: 10-18-2021 Speech therapy assessment [facility] Work Phone: Start: 10-18-2021 Tobacco use cessation education [facility] Work Phone: Start: 10-18-2021 [facility] Work Phone: Start: 10-18-2021 Admission procedure [facility] Work Phone: Start: 10-18-2021 Bleeding precautions [facility] Work Phone: Start: 10-15-2021 [facility] Work Phone: Start: 09-14-2021 Adult depression screening assessment DEPRESSION SCREENING [facility] Start: 08-21-2021 Enteric precautions [facility] Work Phone: Start: 07-28-2021 Patient discharge [facility] Work Phone: Start: 07-27-2021 Introduction of urinary catheter [facility] Work Phone: Start: 07-27-2021 Care planning and problem solving actions [facility] Work Phone: Start: 07-27-2021 [facility] Work Phone: Start: 07-27-2021 Introduction of urinary catheter [facility] Work Phone: Start: 07-25-2021 Incentive spirometry [facility] Work Phone: Start: 07-24-2021 Oxygen therapy [facility] Work Phone: Start: 07-24-2021 Consultation [facility] Work Phone: Start: 07-23-2021 Referral to occupational therapist [facility] Work Phone: Start: 07-23-2021 Referral to service [facility] Work Phone: Start: 07-23-2021 Following clinical pathway protocol [facility] Work Phone: Start: 07-23-2021 Admission procedure [facility] Work Phone: Start: 07-22-2021 Patient discharge [facility] Work Phone: Start: 07-21-2021 Oxygen therapy [facility] Work Phone: Start: 07-21-2021 Following clinical pathway protocol [facility] Work Phone: Start: 07-21-2021 Anesth open/surg arthrs total knee arthroplasty ANESTH KNEE ARTHROPLASTY [facility] Work Phone: Start: 07-21-2021 Arthrp kne condyle&platu medial&lat compartments TOTAL KNEE ARTHROPLASTY [facility] Work Phone: Start: 07-21-2021 COVID-19 VACCINE (4 - Booster) COVID-19 VACCINE (4 - Booster) [facility] Start: 07-21-2021 Injection aa&/strd femoral nerve NJX AA&/STRD FEMORAL NERVE [facility] Work Phone: Start: 07-21-2021 Provision of overbed trapeze [facility] Work Phone: Start: 07-21-2021 Admission procedure [facility] Work Phone: Start: 07-21-2021 Ambulation therapy management [facility] Work Phone: Start: 07-21-2021 Application of antithromboembolic stockings [facility] Work Phone: Start: 07-21-2021 Application of device [facility] Work Phone: Start: 07-21-2021 Application of elastic bandage [facility] Work Phone: Start: 07-21-2021 Application of intermittent pneumatic compression device [facility] Work Phone: Start: 07-21-2021 Assessment of risk of venous thromboembolism [facility] Work Phone: Start: 07-21-2021 Catheterization of vein [facility] Work Phone: Start: 07-21-2021 Consultation [facility] Work Phone: Start: 07-21-2021 Exercises [facility] Work Phone: Start: 07-21-2021 Following clinical pathway protocol [facility] Work Phone: Start: 07-21-2021 Incentive spirometry [facility] Work Phone: Start: 07-21-2021 Introduction of urinary catheter [facility] Work Phone: Start: 07-21-2021 Measuring intake and output [facility] Work Phone: Start: 07-21-2021 Neurovascular assessment [facility] Work Phone: Start: 07-21-2021 Patient education [facility] Work Phone: Start: 07-21-2021 Procedure discontinued [facility] Work Phone: Start: 07-21-2021 Provision of activity privileges [facility] Work Phone: Start: 07-21-2021 Referral to occupational therapist [facility] Work Phone: Start: 07-21-2021 Referral to service [facility] Work Phone: Start: 07-21-2021 Vital signs measurements [facility] Work Phone: Start: 07-21-2021 Wound care [facility] Work Phone: Start: 07-21-2021 [facility] Work Phone: Start: 06-05-2021 ADVANCE DIRECTIVE DISCUSSION ADVANCE DIRECTIVE DISCUSSION [facility] Start: 06-05-2021 DEPRESSION ASSESSMENT DEPRESSION ASSESSMENT [facility] Start: 10-13-2019 Screening for malignant neoplasm of colon [facility] Start: 01-13-2017 End: 01-13-2017 Appointment Appointment [facility] Work Phone: Start: 01-09-2017 End: 01-09-2017 Diagnostic colonoscopy Colonoscopy [facility] Surgical [facility] Work Phone: Start: 09-26-2014 FECAL OCCULT BLOOD FECAL OCCULT BLOOD [facility] Start: 09-26-2014 Screening for malignant neoplasm of colon Fecal Occult Blood [facility] Start: 2005 RSV Vaccine (1 - 1-dose 60+ series) RSV Vaccine (1 - 1-dose 60+ series) [facility] Start: 1990 COLOGUARD (FIT-DNA) COLOGUARD (FIT-DNA) [facility] Start: [address] COLONOGRAPHY [facility] Start: 1990 Screening for malignant neoplasm of colon [facility] Start: 1990 SIGMOIDOSCOPY SIGMOIDOSCOPY [facility] Start: 1963 BP CONTROLLED (<130/80) BP CONTROLLED (<130/80) [facility] Start: 1963 Depression Screening Depression Screening [facility] Colonoscopy [facility] Work Phone: ECG COMPLETE ECG COMPLETE ECG 09/12/2024 3:29 PM EDT [facility] Gastrin [Mass/volume ] in Serum or Plasma [facility] Gastrin [Mass/volume ] in Serum or Plasma [facility] [place]/lambda light chain ratio [facility] Work Phone: Lambda light chains. free [Mass/volume] in Serum or Plasma [facility] Work Phone: End: 09-10-2023 Mri brain brain stem w/o contrast material MRI BRAIN WO IVCON Radiology Routine Transient cerebral ischemia, unspecified type 1 Occurrences starting 08/11/2022 until 09/10/2023 [facility] Work Phone: Comment on above: 1 Occurrences starting 08/11/2022 until 09/10/2023 OUTSIDE VENDOR CARDI AC OUTPATIENT EXTENDED RHYTHM RECORDING (WITHOUT TELEMETRY) OUTSIDE VENDOR CARDIAC OUTPATIENT EXTENDED RHYTHM RECORDING (WITHOUT TELEMETRY) Holter Routine Near syncope Bradycardia Ordered: 09/12/2024 [facility] Comment on above: Ordered: 09/12/2024 Patient Education [facility] Work Phone: Patient referral [facility] Work Phone: Radionuclide gastric emptying study [facility] T4 free measurement [facility] Work Phone: Thiamine measurement [facility] Work Phone: Thyroid stimulating hormone measurement [facility] Work Phone: Triiodothyronine, fr ee measurement [facility] Work Phone: Urine kappa light ch ain measurement [facility] Work Phone: US Carotid arteries [facility] Work Phone: US Carotid arteries [facility] End: 10-13-2022 US KIDNEY/BLADDER US KIDNEY/BLADDER Radiology JAIR Renal mass, left 1 Occurrences starting 09/13/2021 until 10/13/2022 [facility] Work Phone: Comment on above: 1 Occurrences starting 09/13/2021 until 10/13/2022 Vitamin D, 1,25-dihy droxy measurement [facility] Work Phone: [facility] Immunizations Immunization Date Immunization Notes Care Provider [facility] 10-15-2024 pneumococcal conjuga te (PCV21) vaccine, 21 valent (CAPVAXIVE) Brandon Cantor MD Work Phone: [facility] 05-17-2024 COVID-19 vaccine, ag e 12+ yr (Tucker Blair COMIRNAT) Brandon Cantor MD Work Phone: [facility] 03-05-2024 influenza, high dose seasonal, preservative-free Debra Castrejon Work Phone: [facility] 03-05-2024 influenza virus vacc ine, unspecified formulation Debra Castrejon Work Phone: [facility] 01-10-2024 tetanus toxoid, redu kristal diphtheria toxoid, and acellular pertussis vaccine, adsorbed Dav De Santiago MA [facility] 11-09-2023 COVID-19 vaccine, ag e 12+ yr, 2022- season (Tucker Blair) Brandon Cantor MD Work Phone: [facility] 03-04-2023 influenza (HD-IIV4) vaccine, age 65+ yr, high dose, quadrivalent, PF (FLUZONE HIGH-DOSE) Brandon Cantor MD Work Phone: [facility] 03-04-2023 influenza, high dose seasonal, preservative-free [facility] Provider [facility] Work Phone: 03-04-2023 influenza virus vacc ine, unspecified formulation Debra Jewellhernando Work Phone: [facility] 02-07-2023 respiratory syncytia l virus (RSV) vaccine, adjuvanted (AREXVY) [facility] Provider [facility] 04-01-2022 COVID-19 booster vaccine, age 12+ yr, bivalent (Tucker Blair) 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 Brandon Cantor Work Phone: [facility] 03-11-2021 zoster vaccine recombinant Brandon Cantor MD Work Phone: [facility] Work Phone: 02-15-[address] Brandon Cantor Work Phone: [facility] 02-15-2021 influenza, high-dose , quadrivalent vaccine (FLUZONE HIGH DOSE QUADRIVALENT) Brandon Cantor MD Work Phone: [facility] Work Phone: 08-03-2020 Covid (Pfizer) Dr. Brandon Cantor Work Phone: [facility] 08-03-2020 COVID-19 vaccine (UNSPECIFIED) Brandon Cantor MD Work Phone: [facility] Work Phone: 07-20-2020 Covid (Pfizer) Dr. Brandon Cantor Work Phone: [facility] 07-14-2020 COVID-19 original vaccine, age 12+ yr, monovalent (PFIZER-BIONTECH - PURPLE TOP) [facility] Provider [facility] Work Phone: 07-14-2020 COVID-19 vaccine (UNSPECIFIED) Brandon Cantor MD Work Phone: [facility] Work Phone: 02-14-2020 influenza (HD-IIV4) vaccine, age 65+ yr, high dose, quadrivalent, PF (FLUZONE HIGH-DOSE) [facility] Provider [facility] Work Phone: 02-14-2020 influenza, high dose seasonal, preservative-free Brandon Cantor MD Work Phone: [facility] Work Phone: 03-01-2019 influenza, high dose seasonal, preservative-free Brandon Cantor MD Work Phone: [facility] Work Phone: 03-01-2018 influenza, high dose seasonal, preservative-free Brandon Cantor MD Work Phone: [facility] Work Phone: 03-16-2017 influenza, high dose seasonal, preservative-free Brandon Cantor MD Work Phone: [facility] 03-23-2016 influenza, seasonal, injectable Brandon Cantor MD Work Phone: [facility] 03-17-2016 influenza, seasonal, injectable, preservative free Brandon Cantor MD Work Phone: [facility] Work Phone: 03-19-2015 influenza, high dose seasonal, preservative-free Brandon Cantor MD Work Phone: [facility] Work Phone: 10-09-2014 pneumococcal conjuga te vaccine, 13 valent Brandon Cantor MD Work Phone: [facility] 04-10-2014 tetanus and diphther ia toxoids, adsorbed, preservative free, for adult use (5 Lf of tetanus toxoid and 2 Lf of diphtheria toxoid) Brandon Cantor MD Work Phone: [facility] 03-20-2014 influenza, seasonal, injectable Brandon Cantor MD Work Phone: [facility] 02-23-2012 influenza virus vacc ine, whole virus Brandon Cantor MD Work Phone: [facility] Work Phone: 09-29-2011 zoster vaccine, live Brandon Cantor MD Work Phone: [facility] Work Phone: 03-05-2011 influenza virus vacc ine, unspecified formulation Brandon Cantor MD Work Phone: [facility] Work Phone: 07-01-2010 pneumococcal polysaccharide vaccine, 23 valent Brandon Cantor MD Work Phone: [facility] Work Phone: 03-04-2010 influenza virus vacc ine, unspecified formulation Brandon Cantor MD Work Phone: [facility] Work Phone: 05-19-2009 novel influenza-H1N1 -09, preservative-free, injectable Brandon Cantor MD Work Phone: [facility] Work Phone: 03-27-2009 influenza virus vacc ine, unspecified formulation Brandon Cantor MD Work Phone: [facility] Work Phone: 01-02-2004 tetanus and diphther ia toxoids, not adsorbed, for adult use Brandon Cantor MD Work Phone: [facility] Work Phone: Payers Date Payer Category Payer Self-pay [id number] 2017 Medicare (Managed Care) [employer]CANTARG[employer] DAPHNE HMO [id number] 2017 Unknown [employer] STEPHEN CROS S AND BLUE SHIELD ANTHLILI MEDIBLUE O [id number] 2017-Present [phone] [address] [place] [address] [facility] [id number] 2017 Unknown [id number] 2014 Unknown [id number] 2010 Medicare [id number] Unknown [id number] Unknown [id number] Unknown [id number] Unknown [id number] Unknown [id number] Unknown [id number] Unknown [id number] Unknown [id number] Unknown [id number] Social History Date Type Detail Facility Start: 04-23-2020 End: 04-15-2024 Tobacco smoking status NHIS Ex-smoker [facility] Start: 1964 End: 07-05-1998 History of tobacco use Current smoker [facility] Start: 1964 End: 07-05-1998 History of tobacco use Cigarette Smoker [facility] Start: 08-26-2021 End: 12-20-2024 Alcohol intake Current non-drinker of alcohol (finding) [facility] Start: 04-23-2020 End: 05-04-2022 History SDOH Alcohol Frequency 1 [facility] Start: 01-01-2020 End: 05-04-2022 History SDOH Social Connections Phone 2 [facility] Start: 07-02-2019 End: 05-04-2022 History SDOH Social Connections Living 3 [facility] Start: 07-02-2019 End: 10-02-2019 History SDOH Physical Activity DPW 5 [facility] Start: 10-02-2019 History SDOH Physical Activity MPS 6 [facility] Start: 07-02-2019 Education 17 [facility] Start: 1945 Sex Assigned At Male [facility] Work Phone: Start: 08-16-2021 End: 04-04-2022 Exposure to SARS-CoV-2 (event) Not sure [facility] Start: 10-15-2021 End: 09-12-2023 Tobacco smoking status NDIS Unknown if ever smoked [facility] Start: 01-23-2018 None [facility] Start: 01-23-2018 Spouse/ Significant Other [facility] Start: 10-09-2018 Non-smoker [facility] Work Phone: Start: 10-18-2021 Non-smoker;Cigarettes [facility] Start: 04-23-2020 End: 10-21-2022 Cigarettes smoked current (pack per day) - Reported 2 [facility] Start: 04-23-2020 End: 04-15-2024 Tobacco use and exposure Smokeless tobacco non-user [facility] Work Phone: Start: 05-04-2022 History SDOH Alcohol Std Drinks 0 [facility] Start: 05-04-2022 History SDOH Social Connections Phone 98 [facility] Start: 05-04-2022 End: 10-21-2022 Social connection and isolation panel [facility] In a typical week, h ow many times do you talk on the telephone with family, friends, or neighbors? Patient refused [facility] Do you belong to any clubs or organizations such as hinduism groups, unions, fraternal or athletic groups, or school groups? No [facility] Are you now , , , , never or living with a partner? [facility] How often to you hav e a drink containing alcohol? Never [facility] Do you feel stress - tense, restless, nervous, or anxious, or unable to sleep at night because your mind is troubled all the time - these days [OSQ] To some extent [facility] (I/We) worried wheth er (my/our) food would run out before (I/we) got money to buy more. DK or Refused [facility] Start: 09-07-2018 Gender identity Identifies as male gender (finding) [facility] Work Phone: Start: 09-07-2018 Sexual orientation Heterosexual (finding) [facility] Work Phone: Do you feel stress - tense, restless, nervous, or anxious, or unable to sleep at night because your mind is troubled all the time - these days [OSQ] Not at all [facility] (I/We) worried wheth er (my/our) food would run out before (I/we) got money to buy more. Never true [facility] Start: 09-04-2024 End: 09-10-2024 Sex Male (finding) [facility] Medical Equipment Procedure Code Equipment Code Equipment [...] partial nephrectomy Plant polysaccharide haemostatic agent, bioabsorbable [id number] FDA Start: 02-16-2022 Robot-assisted partial nephrectomy Ligation clip, synthetic polymer, non-bioabsorbable [id number] FDA Start: 02-16-2022 Robot-assisted partial nephrectomy CLIP,DEANNA [...] FDA Start: 02-16-2022 Colonoscopy Ligation clip, metallic ()[id number] FDA Start: 04-26-2022 ACCOLADE II ANGL E HIP STEM 127 FDA Start: 01-12-2018 BIOLOX DELTA CER AMIC FEM HEAD FDA Start: 01-12-2018 MDM CEMENTLESS LINER FDA Star t: 01-12-2018 RESTORE X3 INSER T FOR MDM.ADM FDA Start: 01-12-2018 TRITANIUM CODIE CLUSTER SHELL FDA Start: 01-12-2018 CEMENT,BONE IONA H 1/2 BATCH FDA Start: 07-21-2021 ([id number]) Coated knee femu r prosthesis ()[id number] FDA Start: 07-21-2021 ([id number]) Coated knee tibi a prosthesis ()[id number]) [id number] FDA Start: 07-21-2021 ([id number]) Polyethylene pat jessica prosthesis ()[id number] FDA Start: 07-21-2021 ([id number]) Tibial insert ()[id number] FDA Start: 07-21-2021 ACCOLADE II ANGL [...] Assessment Result Facility 08-21-2023 Functional status Ambulates [facility] Work Phone: 05-01-2022 Functional status Ambulates [facility] Work Phone: 02-24-2022 Functional status Chair [facility] Work Phone: 02-17-2022 Functional status Ambulates;Chair [facility] Work Phone: 10-19-2021 Functional status Chair [facility] Work Phone: 07-28-2021 Functional status Chair [facility] Work Phone: 07-27-2021 Functional status Assistive Roberta karis Rolling Walker [facility] Work Phone: 07-27-2021 Functional status Tolerates Activity Well [facility] Work Phone: 07-22-2021 Functional status Chair [facility] Work Phone: 09-13-2018 Are you deaf, or do you have serious difficulty hearing No 09/13/2018 12:21 PM Brandon Nagel MD No [facility] 09-13-2018 Are you blind, or do you have serious difficulty seeing, even when wearing glasses No 09/13/2018 12:21 PM Brandon Nagel MD No [facility] 09-13-2018 Do you have serious difficulty walking or climbing stairs No 09/13/2018 12:21 PM Brandon Nagel MD No [facility] 09-13-2018 Do you have difficul ty dressing or bathing No 09/13/2018 12:21 PM Brandon Nagel MD No [facility] 09-13-2018 Because of a physica l, mental, or emotional condition, do you have difficulty doing errands alone such as visiting a physician's office or shopping No 09/13/2018 12:21 PM Brandon Nagel MD No [facility] Mental Status Date Assessment Result Facility 09-10-2024 Cognitive function Voice/Name [facility] Work Phone: 08-21-2023 Cognitive function Voice/Name [facility] Work Phone: 08-18-2023 Cognitive function Level Of Cons ciousness Awake;Alert;Appropriate;Fol lows Commands [facility] Work Phone: 04-19-2023 Cognitive function Voice/Name [facility] Work Phone: 02-02-2023 Cognitive function Voice/Name [facility] Work Phone: 08-10-2022 Cognitive function Level Of Cons ciousness Awake;Alert;Appropriate;Fol lows Commands [facility] Work Phone: 05-01-2022 Cognitive function Voice/Name [facility] Work Phone: 04-26-2022 Cognitive function Voice/Name;Touch/Shaki ng [facility] Work Phone: 02-24-2022 Cognitive function Voice/Name [facility] Work Phone: 02-17-2022 Cognitive function Voice/Name [facility] Work Phone: 10-19-2021 Cognitive function Voice/Name [facility] Work Phone: 10-15-2021 Cognitive function Level Of Cons ciousness Awake;Alert;Appropriate;Fol lows Commands [facility] Work Phone: 07-28-2021 Cognitive function Voice/Name [facility] Work Phone: 07-26-2021 Cognitive function Appropriate;Cooperativ e [facility] Work Phone: 07-22-2021 Cognitive function Voice/Name [facility] Work Phone: 09-13-2018 Because of a physica l, mental, or emotional condition, do you have serious difficulty concentrating, remembering, or making decisions No 09/13/2018 12:21 PM EDT Brandon Cantor MD No [facility] Clinical Notes 08-10-2020 to 12-20-2024 Patient InstructionsChris [...] during this week. Please send us a Predict[employer] message next week to let us know how you are doing. If no change, will likely increase the dose back to 2 tablets. documented in this encounter [facility] 12-20-2024 Note HNO ID: [id number] Author: CHRIS PEARSON JR, MD Service: ? [...] mouth once da (more content not included)... [facility] 12-20-2024 History of Presen t illness Narrative ESTABLISHED PATIENT VISIT CHIEF COMPLAINT: Follow Up HISTORY OF PRESENT ILLNESS: Rohan Olivia Jr. is a 79 year old male, BMI 28.09 kg/m2 with a PMH significant for and per last office visit of 08/16/24: 1. Parkinson's disease, unspecified whether dyskinesia present, unspecified whether manifestations fluctuate ([facility]) - ICD9: 332.0, ICD10: G20.A1 (primary diagnosis) [...] area two times a week. Per [facility] PRN tamsulosin (FLOMAX) 0.4 mg Take [...] difficile diarrhea 08/21/2021 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 08/24/2020 Elevated [...] 10/19/2017 Other chest pain Sandrita Mortensen MD. [facility] [place] 08/20/2020. Other pulmonary embolism with acute [...] Emphysema Maternal Grandfather 50 years working on [employer], coal smoke inhalation. Asthma Maternal Grandfather Colon [...] which included preparing to see the patient, [id number] patient care, completing clinical documentation, obtaining and/or reviewing separately obtained history, performing a medically appropriate examination, counseling and educating the patient/family/caregiver, ordering medications, tests, or procedures, and communicating results to the patient/family/caregiver. documented in this encounter [facility] 12-13-2024 Note HNO ID: [id number] Author: DEBRA CASTREJON, ? Service: ? Author [...] RTC in 3-4 months. Debra Castrejon DPM [facility] 12-13-2024 History of Presen t illness Narrative [...] Objective: Patient presents to clinic ambulating in [facility] Vasc: DP and PT pulses [...] Mayito Gonsalez LPN documented in this encounter [facility] 12-13-2024 Note HNO ID: [id number] Author: SUSANA GONSALEZ LPN Service: ? Author [...] Follow Up, nail care, Mayito Gonsalez LPN [facility] 11-26-2024 Telephone encounter Note Patient scheduled Thanks Chandler Ware [facility] 11-26-2024 Miscellaneous Notes Patient scheduled Thanks Chandler [...] Lynette Robles LPN documented in this encounter [facility] 11-25-[address] Mortensen put in EP referral. He would like him to see them first. Marie Charles MA [facility] 11-20-2024 Telephone encounter Note I have reached out to Dr. Mortensen about Mr. Olivia. Please assist scheduling cardiology follow up soon (I.e. 1-2 months) [facility] 11-18-2024 Telephone encounter Note Patient called into office speaking with PSS about getting a appointment sooner with . He stated that you recommended a sooner appointment than Novemeber with . Please review and advise further Lynette Robles LPN [facility] 11-15-2024 Instructions Brandon Cantor MD - 11/15/2024 12:20 PM EDT Take metoprolol 1/2 tablet once daily for 2 days, then STOP metoprolol. documented in this encounter [facility] 11-15-2024 Note HNO ID: [id number] Author: BRANDON CANTOR MD Service: ? Author Type: Physician Type: Progress Notes Filed: 11/15/2024 13:41 Note Text: This note was created using Ourpalmriter. Subjective Patient presents with: 6 Month Exam Rohna Olivia Jr. is a 79 year old male. Recording using [employer] software for draft documentation of the visit was discussed with the patient/authorized service center representative; all questions welcomed and answered. Patient/authorized service center representative agreed to proceed Bradycardia: - Heart rate today is 51 bpm; previously recorded as low as 36 bpm. - Recent Holter monitor placement; metoprolol dosage was reduced by half following results. - Scheduled to see appeals reviewer veteran Dr. Mortensen on April 28. 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 Per [facility] PRN tamsulosin (FLOMAX) 0.4 mg Take [...] 780.4, ICD10: R42 (more content not included)... [facility] 11-15-2024 History of Presen t illness Narrative This note was created using iMegater. Subjective Patient presents with: 6 Month Exam Rohan Olivia Jr. is a 79 year old male. Recording using [employer] software for draft documentation of the visit was discussed with the patient/authorized service center representative; all questions welcomed and answered. Patient/authorized service center representative agreed to proceed Bradycardia: - Heart rate today is 51 bpm; previously recorded as low as 36 bpm. - Recent Holter monitor placement; metoprolol dosage was reduced by half following results. - Scheduled to see appeals reviewer veteran Dr. Mortensen on April 28. 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 Per [facility] PRN tamsulosin (FLOMAX) 0.4 mg Take [...] Brandon Cantor MD documented in this encounter [facility] 10-18-2024 Note HNO ID: [id number] Author: BRANDON CANTOR MD Service: ? Author [...] of Face (Hcc) Coronary Artery Disease of [place] Artery of [place] Heart With Stable Angina Pectoris Parkinson's Disease [...] area two times a week. Per [facility] PRN tamsulosin (FLOMAX) 0.4 mg Take [...] I49.8 Improved. 4. 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 - ICD9: [...] We clarified his regimen. Brandon Cantor MD [facility] 10-18-2024 History of Presen t illness Narrative [...] of Face (Hcc) Coronary Artery Disease of [place] Artery of [place] Heart With Stable Angina Pectoris Parkinson's Disease [...] area two times a week. Per [facility] PRN tamsulosin (FLOMAX) 0.4 mg Take [...] I49.8 Improved. 4. 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 - ICD9: [...] Brandon Cantor MD documented in this encounter [facility] 09-27-2024 Note HNO ID: [id number] Author: INOCENCIA KELLEY Tech Service: ? Author [...] PATIENT PRESENTS WITH AN IMPLANTABLE OR ATTACHED TELEVISION OPERATOR: No RADIOLOGY DEPARTMENT: General X-ray: Exam(s) Completed: Chest X-Ray PERIPHERAL IV DATA: Not applicable SIGNED BY: Yesika Tapia September 27, 2024 2:28 PM [facility] 09-20-2024 Telephone encounter Note That is okay. He can do xray at a later time. [facility] 09-20-2024 Miscellaneous Notes That is okay. He [...] Katelin Chew RN documented in this encounter [facility] 09-20-2024 Telephone encounter Note Patient calls and [...] he gets monitor off. Katelin Chew RN [facility] 09-12-2024 Note HNO ID: [id number] Author: RENEA CARABALLO LPN Service: ? Author Type: LICENSED NURSE Type: Progress Notes Filed: 09/13/2024 08:50 Note Text: EVENT MONITOR DISPOSABLE PATCH INSTRUCTIONS Patient Name: Rohan Olivia Jr. Clinic Number: [id number] Skin prepped and cleansed with alcohol Patch secured to prepped area Monitor Activated Serial #: [id number] Patient Instructed: Prescribed order timeframe Bathing guidelines Usage of event button and diary documentation Return of monitor at the end of prescribed order Call with problems [phone] or [phone]. [phone] Patient expresses a good understanding of instructions Renea Caraballo LPN [facility] 09-12-2024 History of Presen t illness Narrative EVENT MONITOR DISPOSABLE PATCH INSTRUCTIONS Patient Name: Rohan Olivia Jr. Clinic Number: [id number] Skin prepped and cleansed with alcohol Patch secured to prepped area Monitor Activated Serial #: [id number] Patient Instructed: Prescribed order timeframe Bathing guidelines Usage of event button and diary documentation Return of monitor at the end of prescribed order Call with problems [phone] or [phone]. [phone] Patient expresses a good understanding of instructions Renea Caraballo LPN Called [employer] to check out of pocket cost for the zio. Reference number is [id number] and they report pt's out of pocket cost is 525$ This note was created using Ourpalmriter. 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 Per [facility] PRN tamsulosin (FLOMAX) 0.4 mg Take [...] Brandon Cantor MD documented in this encounter [facility] 09-12-2024 Note HNO ID: [id number] Author: EUGENIA DOUGLAS LPN Service: ? Author Type: LICENSED NURSE Type: Progress Notes Filed: 09/13/2024 08:50 Note Text: Called [employer] to check out of pocket cost for the zio. Reference number is [id number] and they report pt's out of pocket cost is 525$ [facility] 09-12-2024 Instructions Brandon Cantor MD - 09/12/2024 3:41 PM EDT CONTINUE MEDICATIONS FOR NOW. INCREASE FLUID INTAKE. BLOOD WORK AND CHEST XRAY IN 4 WEEKS. documented in this encounter [facility] 09-12-2024 Note HNO ID: [id number] Author: BRANDON CANTOR MD Service: ? Author Type: Physician Type: Progress Notes Filed: 09/13/2024 08:50 Note Text: This note was created using Ourpalmriter. 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 Per [facility] PRN tamsulosin (FLOMAX) 0.4 mg Take [...] sensory deficit. Mo (more content not included)... [facility] 09-12-2024 Note HNO ID: [id number] Author: DOUGLAS MORTENSEN MD Service: ? Author [...] Triplets were present. Ventricular Bigeminy was present. [facility] 09-12-2024 Note HNO ID: [id number] Author: DEBRA CASTREJON, ? Service: ? Author [...] Objective: Patient presents to clinic ambulating in [facility] Vasc: DP and PT pulses [...] RTC in 3-4 months. Debra Castrejon DPM [facility] 09-12-2024 History of Presen t illness Narrative Subjective: Patient presents to clinic c/o painful toenails. They state that the nails are especially painful with shoe gear and pressure. Patient states that nails 1-5 b/l are painful. No other pedal complaints at this time. Patient states no change in medications or medical history since last visit. Objective: Patient presents to clinic ambulating in [facility] Vasc: DP and PT pulses [...] Susana Gonsalez LPN documented in this encounter [facility] 09-12-2024 Note HNO ID: [id number] Author: SUSANA GONSALEZ LPN Service: ? Author [...] Follow Up, nail care Susana Gonsalez LPN [facility] 09-11-2024 Telephone encounter Note Noted. [facility] 09-11-2024 Miscellaneous Notes Noted. Patient calling he [...] to his PCP. documented in this encounter [facility] 09-10-2024 Radiology Diagnostic study note [facility] Imaging Services [address], [place] [id number] Chest 1 View (Portable) MR#: [id number] Acct: [id number] Name: ROHAN OLIVIA Rep #: [id number] : 1945 M 79 From: Nadine Jones DO PCP: Dr. Brandon Cantor MD Status: P RE ER Study:Chest 1 View (Portable) Date of Exam: 09/10/24 Exam# [id number] Ordering Dr: Meghan Fierro DO PROCEDURE: Portable [...] Fierro DO; Dr. Brandon Cantor MD ~ Steam Station Supervisor: Signed [facility] 09-10-2024 Telephone encounter Note Patient calling he [...] ER. Aware sending note to his PCP. [facility] 08-16-2024 Note HNO ID: [id number] Author: CHRIS PEARSON JR, MD Service: ? [...] area two ti (more content not included)... [facility] 08-16-2024 History of Presen t illness Narrative [...] area two times a week. Per [facility] 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 Cath [facility] 08/20/2020. Other pulmonary embolism with acute [...] Emphysema Maternal Grandfather 50 years working on [employer], coal smoke inhalation. Asthma Maternal Grandfather Colon [...] which included preparing to see the patient, xxii-jg-qroz patient care, completing clinical documentation, obtaining and/or reviewing separately obtained history, performing a medically appropriate examination, counseling and educating the patient/family/caregiver, ordering medications, tests, or procedures, and communicating results to the patient/family/caregiver. documented in this encounter [facility] 08-09-2024 Telephone encounter Note Patient has current script on file on [employer]. Pharmacy will get this ready for patient. [facility] 08-09-2024 Miscellaneous Notes Patient has current script on file on [employer]. Pharmacy will get this ready for patient. [...] 2024 2:38 PM documented in this encounter [facility] 08-09-2024 Telephone encounter Note Prescription Refill Information [...] Lisa Marin August 09, 2024 2:38 PM [facility] 07-30-2024 Telephone encounter Note Pt reports Dr. [...] Kaba LPN July 30, 2024 11:12 AM [facility] 07-30-2024 Miscellaneous Notes Pt reports Dr. Murray [...] 2024 11:12 AM documented in this encounter [facility] 06-17-2024 Evaluation note Diagnosis Onset Date Resolution Lumbar spondylosis acute 2024 1:11pm Parkinson's disease acute 2024 1:11pm Trochanteric bursitis of left hip acute June 17 1:11pm [facility] Work Phone: [phone] NoteHNO ID: [id number] Author: DEBRA CASTREJON, ? Service: ? Author [...] to RTC in 3-4 months. Debra Castrejon, [facility]01-10-2025 History of Present illness Narrative* Debra Castrejon [...] Objective: Patient presents to clinic ambulating in [facility] Vasc: DP and PT pulses [...] care Susana Gonsalez LPN documented in this encounterOhio[facility]01-10-2025 NoteHNO ID: [id number] Author: SUSANA GONSALEZ LPN Service: ? Author Type: LICENSED NURSE Type: Progress Notes Filed: 06/14/2024 13:31 Note Text: AMB ROOMING INTAKE FLOWSHEET DATA Patient presents with: Left Foot - Established Patient, Follow Up, nail care Right Foot - Established Patient, Follow Up, [facility] Telephone encounter Note* Telephone Encounter - Jyoti Dougherty LPN - 06/06/2024 10:50 AM EST Orders and face sheet faxed, confirmation received. Jyoti Dougherty LPN June 06, 2024 10:52 AM [facility]01-02-2025 Miscellaneous Notes* Telephone Encounter - Jyoti Dougherty [...] scheduled? Thanks! Eliezer Marie documented in this encounterOhio[facility]01-02-2025 Telephone encounter Note * Telephone Encounter - [...] they can get scheduled? Thanks! Eliezer Marie [facility]12-13-2024 NoteHNO ID: [id number] Author: BRANDON CANTOR MD Service: ? Author Type: Physician Type: Progress Notes Filed: 05/17/2024 23:09 Note Text: This note was created using [employer]. Subjective Rohan Olivia Jr. is a 78 [...] of Face (Hcc) Coronary Artery Disease of [place] Artery of [place]ainwright Heart With Stable Angina Pectoris (Hcc) Parkinson's [...] aerobic exercise - Discu (more content not included)...[facility]12-13-2024 History of Present illness Narrative* Brandon Cantor MD - 05/17/2024 12:00 PM EST This note was created using Ourpalm[employer]. Subjective Rohan Olivia Jr. is a 78 [...] of Face (Hcc) Coronary Artery Disease of [place] Artery of [place] Heart With Stable Angina Pectoris (Hcc) Parkinson's [...] RISK EDUCATION 7. 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) - [...] vaccine - ICD9: V04.89, ICD10: Z23 - [employer]Meri[employer]em COVID-19 VACCINE AGE 12+ YR (COMIRNATY) 12. [...] MD as PCP - General Delicia Anton, 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 as Senior Instrumentation Engineer (Internal Medicine) Douglas Mortensen MD (Cardiology) Chris Pearson Jr., MD (Neurology) Debra Castrejon DPM (Podiatry) Outside specialists seen: Blanca Obrien MD (Gastroenterology) Angel Connolly MD (Urology) Claire Herrera APRN, CNP (Dermatology, [facility]) Pascual Dawson MD (ENT) Nikhil Darling (Optometry). [...] Vaccine recommendation: Covid 19. documented in this encounterOhiohealth [facility]ady [facility]12-13-2024 NoteHNO ID: [id number] Author: BRANDON CANTOR MD Service: ? Author [...] PCP - General Delicia Anton APRN.ALFREDO as Senior Instrumentation Engineer (Internal Medicine) Douglas Mortensen MD (Cardiology) Chris Pearson Jr., MD (Neurology) Debra Castrejon DPM (Podiatry) Outside specialists seen: Blanca Obrien MD (Gastroenterology) Angel Connolly MD (Urology) Claire Herrera APRN, CNP (Dermatology, [facility]) Pascual Dawson MD (ENT) Nikhil Darling (Optometry). [...] prevention plan provided - Vaccine recommendation: Covid 19.[facility]12-13-2024 Instructions* Patient Instructions* Brandon Cantor MD - 05/17/2024 11:52 AM EST You would benefit from general conditioning exercise programs such as those offered by recreation centers or the [facility]. WHAT YOU CAN DO TO PREVENT FALLS [...] review all the medicines you take, even zbbn-wdy-sbnteuh medicines. As you get older, the way [...] Fasting blood tests soon. documented in this encounterOhiohealth [facility]12-09-2024 Instructions* Patient Instructions* Chris Pearson Jr., MD - 05/13/2024 11:58 AM EST CARBIDOPA-LEVODOPA 25/100mg Take 1.5 tablets at 8AM, Noon and 4PM. CARBIDOPA-LEVODOPA CR 50/200mg Take 1 tablet at 9PM. documented in this encounterOhiohealth Grady [facility] Hospital12-09-2024 NoteHNO ID: [id number] Author: CHRIS PEARSON JR, MD Service: ? [...] was advised that he follow-up with his grounds caretaker and surgeon to determine when he may [...] LAB/IMAGING: Those performed sin (more content not included)...[facility]12-09-2024 History of Present illness Narrative* Chris Pearson [...] was advised that he follow-up with his grounds caretaker and surgeon to determine when he may [...] area two times a week. Per [facility]. PRN ipratropium bromide (ATROVENT) 42 mcg [...] 10/19/2017 Other chest pain Sandrita Mortensen MD. [facility] 08/20/2020. Other pulmonary embolism with acute cor pulmonale (HCC) 01/30/2018 fall, right hip fracture, right total hip Other pulmonary embolism with acute cor pulmonale (HCC) Panic attacks 2001 previously on Xanax Parkinson's disease (HCC) 11/17/2021 Pulmonary hypertension (HCC) 01/30/2018 Renal cell cancer, left ([facility]) 05/05/2022 Seborrheic keratosis 06/19/2009 Stage 3a chronic kidney disease (HCC) 05/19/2023 Thyrotoxicosis without thyroid storm 11/17/2021 FAMILY HISTORY Problem Relation Age of Onset Psychiatry Mother Anxiety COPD Mother Heart Mother Heart failure, age 94 other (Other) Mother Parkinson's Cancer Father lung cancer, age 86 Psychiatry Sister Panic attacks Emphysema Maternal Grandfather 50 years working on [employer], coal smoke inhalation. Asthma Maternal Grandfather Colon [...] which included preparing to see the patient, cqrr-oq-otkb patient care, completing clinical documentation, obtaining and/or reviewing separately obtained history, performing a medically appropriate examination, counseling and educating the pat ient/family/caregiver, ordering medications, tests, or procedures, and communicating results to thepatient/family/caregiver. documented in this encounterOhiohealth [facility]11-25-2024 Telephone encounter Note * Telephone Encounter - Renea Caraballo LPN - 04/29/2024 4:43 PM EST Patient notified, letter taken to Medical Records. Renea Caraballo LPN [facility]11-25-2024 Miscellaneous Notes* Telephone Encounter - Renea Caraballo LPN - 04/29/2024 4:43 PM EST Patient notified, letter taken to Medical Records. Renea Caraballo LPN * Telephone Encounter - Brandon Cantor MD - 04/29/2024 4:32 PM EST Printed. * Telephone Encounter - Amrita Hernandez RN - 04/29/2024 2:08 PM EST Patient calling to request letter for excuse from jury duty [facility] [email or web address] [facility]. He says needs excused due to Parkinson's. 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 Let patient know when ready. Amrita Hernandez RN documented in this encounterOhiohealth Grady [facility] Hospital11-25-2024 Telephone encounter Note * Telephone Encounter - Brandon Cantor MD - 04/29/2024 4:32 PM EST Printed. [facility]11-25-2024 Telephone encounter Note* Telephone Encounter - Amrita Hernandez RN - 04/29/2024 2:08 PM EST Patient calling to request letter for excuse from jury duty from [facility] [email or web address] [facility]. He says needs excused due to Parkinson's. 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 Let patient know when ready. Amrita Hernandez RN [facility]11-11-2024 NoteHNO ID: [id number] Author: DOUGLAS MORTENSEN MD Service: ? Author Type: Physician Type: Progress Notes Filed: 04/15/2024 15:51 Note Text: Douglas Mortensen MD Interventional Cardiology [address] [place] [address] [phone] Chief Complaint Patient presents with: Yearly Exam [...] Other chest pain Sandrita Mortensen MD. Cath [facility] 08/20/2020. Other pulmonary embolism with acute [...] Emphysema Maternal Grandfather 50 years working on [employer], coal smoke inhalation. Asthma Maternal Grandfather Colon [...] area two times a week. Per [facility]. PRN ipratropium bromide (ATROVENT) 42 mcg [...] Murray, endocrinology. No curr (more content not included)...[facility]11-11-2024 History of Present illness Narrative* Douglas Mortensen MD - 04/15/2024 3:48 PM EST Images from the original note were not included. Douglas Mortensen MD Interventional Cardiology [address] [place] [address] [phone] Chief Complaint Patient presents with: Yearly Exam [...] Other chest pain Sandrita Mortensen MD. Cath /[facility] 08/20/2020. Other pulmonary embolism with acute [...] Emphysema Maternal Grandfather 50 years working on [employer], coal smoke inhalation. Asthma Maternal Grandfather Colon [...] regular exercise 3. 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) - ICD9: 414.01, 413.9, ICD10: I25.118 Stable with no angina continue medical therapy Douglas Mortensen MD Follow up planning: On year Electronically signed by Douglas Mortensen MD on April 15, 2024, 3:48 PM The above note was partially created using a dictation recognition software. A reasonable attempt has been made to correct any errors. documented in this encounterOhiohealth Grady Memorial Hospital11-05-2024 [facility] Medical Records Department [address] [place] [address] History Physical Exam 04/09/24 1223 MR#: [id number] Acct: [id number] Name: ROHAN OLIVIA Rep #: [id number] : 1945 78 From: James Friend PCP: Dr. Brandon Cantor MD Status:[facility] Location: [place] [address] History and Physical Date of Admission: 04/09/24 Chief Complaint: Hyperthyroidism Details: ROHAN OLIVIA, is a 78 M who presents to the office today for follow up. [facility] ED 11.14.21 with suspicion of repeat pseudomembranous [...] celiac without pertinent abnormality. ? AST L13-ALT N43-GH47, apANCA H1:160 ? Stool calprotectin, lactoferrin, C.difficile [...] itchy eyes Goyo/Lymp Hematologic/Lymphatic: (more content not included)...[facility] 04-01-2024 Telephone encounter Note* Telephone Encounter - [...] Lisa Marin April 01, 2024 11:30 AM [facility]10-28-2024 Miscellaneous Notes* Telephone Encounter - Lisa Arreaga [...] 01, 2024 11:30 AM documented in this encounterOhiohealth Grady Memorial Hospital10-18-2024 NoteHNO ID: [id number] Author: DAV DE SANTIAGO MA Service: ? Author Type: Interior Design Professor Type: Progress Notes Filed: 03/22/2024 14:34 Note Text: POPULATION HEALTH NAVIGATION OUTREACH Action/FYI Patient responded via [employer] and states that he is having this done 04/26/24 - appears to be outside [facility]. Reminded patient to have provider forward report to PCP. Reason for Outreach Returned Call/MyChart Patient Contacted: Spoke to patient/parent/or legal guardian Patient identified by name and date of : Yes Returned call/MyChart actions taken: No action required Navigation Signature: Dav De Santiago MA March 22, 2024 2:33 [facility]10-18-2024 History of Present illness Narrative* Dav De Santiago MA - 03/22/2024 2:33 PM EDT POPULATION HEALTH NAVIGATION OUTREACH Action/FYI Patient responded via [employer] and states that he is having this [...] HEALTH NAVIGATION OUTREACH Action/FYI Patient is on [facility] CURRENT [employer]OSTER Workbench list for below and needs appointment to address: Depression Screening Colorectal Cancer Screening Advance Directive Discussion Covid-19 Vaccine() Hemoglobin A1C (%) Date Value 03/10/2017 5.6 Patient due for: Colorectal Cancer Screening - [facility] Active: Yes Left message for patient to call back. Sent [employer] message. AWV already scheduled Reason for Outreach Care Gap/HCC or Scheduling Wellness Visits Care Gaps due: Colorectal Cancer Screening Patient Contacted: Unable or unnecessary to reach patient: Left message [employer] message sent HCC related Navigation Signature: Dav De Santiago MA March 22, 2024 1:12 PM documented in this encounterOhiohealth Grady [facility] Hospital10-18-2024 NoteHNO ID: [id number] Author: DAV DE SANTIAGO MA Service: ? Author Type: Interior Design Professor Type: Progress Notes Filed: 03/22/2024 13:15 Note Text: POPULATION HEALTH NAVIGATION OUTREACH Action/FYI Patient is on [facility] Work[facility] list for below and needs appointment to address: Depression Screening Colorectal Cancer Screening Advance Directive Discussion Covid-19 Vaccine() Hemoglobin A1C (%) Date Value 03/10/2017 5.6 Patient due for: Colorectal Cancer Screening - [facility] Active: Yes Left message for patient to call back. Sent [employer] message. AWV already scheduled Reason for Outreach Care Gap/HCC or Scheduling Wellness Visits Care Gaps due: Colorectal Cancer Screening Patient Contacted: Unable or unnecessary to reach patient: Left message [employer] message sent HCC related Navigation Signature: Dav De Santiago MA March 22, 2024 1:12 [facility]10-18-2024 NotePatient Outreach (NETNAV) COWRINROHAN ([id number]) 1945 M Date Time Provider Department 03/22/24 DAV DE SANTIAGO During your visit today, we recorded the following information about you: Dav De Santiago MA 03/22/2024 1:15 PM Signed POPULATION HEALTH NAVIGATION OUTREACH Action/FYI Patient is on [facility] for below and needs appointment to address: Depression Screening Colorectal Cancer Screening Advance Directive Discussion Covid-19 Vaccine( season) Hemoglobin A1C (%) Date Value 03/10/2017 5.6 Patient due for: Colorectal Cancer Scre[facility] Active: Yes Left message for patient to call back. Sent [employer] message. AWV already scheduled Reason for Outreach Care Gap/HCC or Scheduling Wellness Visits Care Gaps due: Colorectal Cancer Screening Patient Contacted: Unable or unnecessary to reach patient: Left message [employer] message sent HCC related Navigation Signature: Dav De Santiago MA March 22, 2024 1:12 PM Dav De Santiago MA 03/22/2024 2:34 PM Signed POPULATION HEALTH NAVIGATION OUTREACH Action/FYI Patient responded via [employer] and states that he is having this [...] Population Health Navigation Outreach [3910] [facility] Pres[facility] as of 03/22/2024 - atorvastatin (LIPITOR) [...] area two times a week. Per [facility] PRN - ipratropium bromide (ATROVENT) 42 [...] [R07.89] 08/10/2020 09/14/2020 Coronary artery disease of gambell artery of emigdio*08/24/2020 Unsteady gait [R26.81] 02/15/2021 Tremors of nervous system [R25.1] 07/10/2021 11/17/2021 Chronic diarrhea [K52.9] 11/17/2021 Abnorm (more content not included)...[facility]10-07-2024 Note HNO ID: [id number] Author: DEBRA CASTREJON, ? Service: ? Author [...] Objective: Patient presents to clinic ambulating in [facility] Vasc: DP and PT pulses [...] to RTC in 3-4 months. Debra Castrejon [facility]10-07-2024 History of Present illness Narrative* Lucía Debra [...] Objective: Patient presents to clinic ambulating in [facility] Vasc: DP and PT pulses [...] Patient presents for follow up nail care. [facility] 12/04/23 documented in this encounterOhiohealth Grady [facility] Hospital10-07-2024 NoteHNO ID: [id number] Author: DAJA HUERTA RN Service: ? Author Type: Registered Nurse Type: Progress Notes Filed: 03/11/2024 21:53 Note Text: AMB ROOMING INTAKE FLOWSHEET DATA Pain Pain Level: 3 Pain Location: Foot-Right Comments: States bunion pain Patient presents with: Left Foot - Established Patient, Follow Up, nail care Right Foot - Established Patient, Follow Up, nail care Patient presents for follow up nail care. [facility] 12/04/23[facility]09-17-2024 Telephone encounter Note* Telephone Encounter - Jyoti Dougherty LPN - 02/20/2024 9:26 AM EDT Tried calling patient no answer, mychart message sent. Jyoti Dougherty LPN February 20, 2024 9:26 AM [facility]09-17-2024 Miscellaneous Notes* Telephone Encounter - Jyoti Dougherty LPN - 02/20/2024 9:26 AM EDT Tried calling patient no answer, mychart message sent. Jyoti Dougherty LPN February 20, 2024 9:26 AM documented in this encounterOhiohealth Grady [facility] Hospital08-26-2024 Telephone encounter Note * Telephone Encounter - [...] Jenniffer Marin January 29, 2024 9:54 AM [facility]08-26-2024 Miscellaneous Notes* Telephone Encounter - Jenniffer Oakley [...] 29, 2024 9:54 AM documented in this encounterOhiohealth Grady Memorial Hospital08-19-2024 NoteHNO ID: [id number] Author: DAV DE SANTIAGO MA Service: ? Author Type: Interior Design Professor Type: Progress Notes Filed: 01/22/2024 12:06 Note Text: [facility]University [facility] History of Present illness Narrative* Dav De Santiago MA - 01/22/2024 8:33 AM EDT Error documented in this encounterOhiohealth Grady Memorial Hospital07-01-2024 History of Present illness Narrative* Debra Castrejon [...] Objective: Patient presents to clinic ambulating in [facility] Vasc: DP and PT pulses [...] nail care. [facility] 08/17/23 documented in this encounterOhiohealth Grady Memorial Hospital06-19-2024 History of Present illness Narrative* Dav De Santiago MA - 11/22/2023 8:13 AM EDT POPULATION HEALTH NAVIGATION OUTREACH Action/FYI Patient is on [facility] CURRENT [employer] Workbench list for below and needs appointment to address: Colorectal Cancer Screening Advance Directive Discussion Behavioral Health Screening Hemoglobin A1C (%) Date Value 03/10/2017 5.6 Patient due for: Colorectal Cancer Screening Advance Directives Left message for patient to call back. Sent [employer] message. AWV already scheduled - Updated notes to address due care gap and HCC gap closure Reason for Outreach Care Gap/HCC or Scheduling Wellness Visits Care Gaps due: Colorectal Cancer Screening Advance Directives Patient Contacted: Unable or unnecessary to reach patient: Left message MyChart message sent HCC related Navigation Signature: Dav De Santiago MA November 22, 2023 8:14 AM documented in this encounterOhiohealth Grady [facility]06-06-2024 History of Present illness Narrative* Brandon Cantor [...] Nodules On CT Coronary Artery Disease of [place] Artery of [place] Heart With Stable Angina Pectoris (Hcc) Unsteady [...] area two times a week. Per [facility]. ipratropium bromide (ATROVENT) 42 mcg (0.06 [...] 389.9, ICD10: H91.93 (primary diagnosis) Refer to [facility]. - CONSULT TO ENT 2. Parkinson's [...] vaccine - ICD9: V04.89, ICD10: Z23 - [employer] COVID-19 VACCINE ( SEASON) AGE 12+ YR Brandon Cantor MD documented in this encounterOhiohealth Grady [facility] Hospital03-18-2024 Discharge summary Author Daja Monsivais [facility] August 21, 2023 11:08am Note Date/Time August 21, 2023 10: 49am [facility] Medical Records Department [address] [place] [id number] Discharge Summary 08/21/23 1043 MR#: [id number] Acct: [id number] Name: ROHAN OLIVIA Rep #:[id number] : 1945 78 From: Daja VERA PA-C PCP: Dr. Brandon Cantor MD Status:A DM IN Location: [facility] OE145-3 Providers Date of Admission: 08/20/23 Primary Care [...] release 24 hr 30 mg PO DAILY QFVIIQ29/16/22 lorazepam 1 mg tablet (Ativan) 1 mg [...] weeks; after 5 PM and on call [phone] with any concerns. Meaningful Use Info Meaningful [...] similar medications, I would recommend transitioning tothese ycyr-byv-ayurvwi medicines as soon as possible instead of continued use ofnarcotic pain medication. Follow up ? You should call [facility] soon after surgery, at [phone] option 1 to make a follow up [...] Self Care Charges/Coding Visit Charges Inpatient E&M: 65746 Disch Hosp (no charge; post-op) 08/21/23 1108 <Electronically signed by Daja VERA PA-C> Cosigner Signature (if applicable): CC: GASTON Monsivais; Dr. Brnadon Cantor MD~ Signed [facility] Work Phone: 1(785) 458-373003-18-2024 Consult note Author Tim Kim [facility] August 21, 2023 11:05am Note Date/Time August 21, 2023 11: 06am [facility] Medical Records Department [address] [place] [address] Counseling Note - Pharmacy 08/21/23 1105 MR#: [id number] Acct: [id number] Name: ROHAN OLIVIA Rep #:[id number] : 1945 78 From: Tim Kim PCP: Dr. Brandon Cantor MD Status:A DM IN Y Location: [place] [address] [address] [facility] has [...] release 24 hr 30 mg PO DAILY IEHYRA39/16/22 lorazepam 1 mg tablet (Ativan) 1 mg [...] Signature (if applicable): Date CC: ~ Signed [facility] Work Phone: 1(128) 165-692503-17-2024 Progress note Author Mateo Pastor [facility] August 20, 2023 11:54am Note Date/Time August 20, 2023 9:0 5am [facility] Medical Records Department [address] [place] [address] Progress Note - Surgery 08/20/23 0905 MR#: [id number] Acct: [id number] Name: ROHAN OLIVIA Rep #:[id number] : 1945 78 From: Mateo Christianson PCP: Dr. Brandon Cnator MD Status:A DM IN Location: [facility] [id number] Subjective Subjective Patient seen and examined during [...] oxygen today. Charges/Coding Visit Charges Inpatient E&M: 34121 Subs Hosp L2 08/20/23 1154 <Electronically signed by Mateo Pastor MD> Cosigner Signature (if applicable): CC: ~ Signed [facility] Work Phone: 1(327) 839-418803-16-2024 Progress note Author Mateo Pastor [facility] August 19, 2023 2:39pm Note Date/Time August 19, 2023 1:4 5pm [facility] [facility] Medical Records Department [address] [place] [address] Progress Note - Surgery 08/19/23 1345 MR#: [id number] Acct: [id number] Name: ROHAN OLIVIA Rep #:[id number] : 1945 78 From: Mateo Christianson PCP: Dr. Brandon Cantor MD Status:A DM TANISHA Location: [place]3 [id number] Subjective Subjective Patient seen and examined during [...] formal evaluation Charges/Coding Visit Charges Inpatient E&M: 22607 Subs Hosp L2 08/19/23 1439 <Electronically signed by Mateo Pastor MD> Cosigner Signature (if applicable): CC: ~ Signed [facility] Work Phone: 1(998) 464-419603-15-2024 Discharge summary Author Geovanna Parsons [facility] August 18, 2023 3:07pm Note Date/Time August 18, 2023 3:0 4pm [facility] Medical Records Department [address] [place] [address] Instructions for Home/Discharge Instructions 08/18/23 1504 MR#: [id number] Acct: [id number] Name: ROHAN OLIVIA Rep #:[id number] : 1945 78 From: Geovanna Parsons MD [...] weeks; after 5 PM and on call [phone] with any concerns. Test Results: Test results [...] CC: Dr. Brandon Cantor MD ~ Signed [facility] Work Phone: 1(496) 722-238703-15-2024 Procedure [facility] 08-18-2023 History and physical note Author Geovanna [facility] August 18, 2023 10:47am Note Date/Time August 18, 2023 9:1 6am [facility] Medical Records Department [facility] [place] [address] H&P Exam - Surgical 08/18/23 0916 MR#: [id number] Acct: [id number] Name: ROHAN OLIVIA Rep #:[id number] : 1945 78 From: Geovanna Parsons MD PCP: Dr. Brandon Cantor MD Status:A DM TANISHA Location: [place]3 [id number] HPI - General General Date of Admission: [...] and then robotic left nephrectomy in 2021. [facility] Medical History Abnormal weight loss Acute respiratory [...] release 24 hr 30 mg PO DAILY DGNUSK76/16/22 [History Last Taken 04/29/22] lorazepam 1 mg [...] 80.6 H, Lymph % (Auto) 9.4 L, [place] %(Auto) 7.1, Eos % (Auto) 1.8, Baso [...] questions were answered. Geovanna Parsons M.D. Pager: [phone] [facility] [address] [place] [address], Outpatient Pavilion, [address] [place] [address] Office: [phone] 08/18/23 1046 <Electronically signed by Geovanna Parsons MD> Cosigner Signature (if applicable): CC: Dr. Geovanna Parsosn MD; Dr. Brandon Cantor MD~ Signed [facility] Work Phone: 1(802) 495-467003-15-2024 Discharge summary Author Wisam Bella [facility] August 18, 2023 9:13am Note Date/Time August 18, 2023 9:1 3am [facility] Medical Records Department [address] [place] [address] Emergency Department Summary 08/18/23 MR#: [id number] Acct: [id number] Name: ROHAN OLIVIA Rep #:[id number] : 1945 78 From: Wisam Bella DO [...] have acid reflux so he took some mxgi-stm-xwzqghq medication without symptom improvement and secondary to the persistent pain comes in for evaluation [facility] Medical History Abnormal weight loss Acute [...] release 24 hr 30 mg PO DAILY BZAVCI00/16/22 [History Last Taken 04/29/22] lorazepam 1 mg [...] 80.6 H Lymph % (Auto) 9.4 L [place] % (Auto) 7.1 Eos % (Auto) 1.8 [...] EDT , Management Discussion w/another healthcare provider: Rig Operator Discharge Plan Triage Chief Complaint: Chest Pain [...] Provider] - Disposition Disposition: Acute Care Hospital [facility] What to do if you have Problems For any increased pain, shortness of breath, bleeding, nausea or vomiting, chestpain, or any unexpected problems, contact your Primary Care Provider. Call [facility] ([phone]) or report to the closest Emergency Room. Call 911 if necessary. 08/18/23912 <Electronically signed by Wisam Bella DO> Cosigner Signature (if applicable): CC: Dr. Brandon Cantor MD ~ Signed [facility] Work Phone: 1(380) 847-337603-14-2024 History of Present illness Narrative* Debra Castrejon [...] Objective: Patient presents to clinic ambulating in [facility] Vasc: DP and PT pulses [...] care Susana Gonsalez LPN documented in this encounterOhiohealth [facility]ady [facility]11-15-2023 Procedure [facility]11-15-2023 Procedure [facility]11-13-2023 History of Present illness Narrative* Douglas Mortensen MD - 04/17/2023 11:20 AM EST Images from the original note were not included. Douglas Mortensen MD Interventional Cardiology [address] [place] [address] Chief Complaint No chief complaint on file. [...] Other chest pain Sandrita Mortensen MD. Cath [facility] 08/20/2020. Other pulmonary embolism with acute [...] Emphysema Maternal Grandfather 50 years working on [employer], coal smoke inhalation. Asthma Maternal Grandfather Colon [...] regular exercise 3. 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 A reasonable attempt has been made to correct any errors. documented in this encounterOhiohealth Grady [facility] Hospital10-24-2023 Miscellaneous Notes* Telephone Encounter - Lisa Arreaga [...] notify patient. Lisa Marin documented in this encounterOhiohealth Grady Memorial Hospital09-01-2023 History of Present illness Narrative* Debra Castrejon [...] Objective: Patient presents to clinic ambulating in [facility] Vasc: DP and PT pulses [...] Patient, Debridement of Nail documented in this encounterOhiohealth Grady Memorial Hospital08-31-2023 Procedure [facility]08-31-2023 Procedure [facility]08-21-2023 Miscellaneous Notes* Telephone Encounter - Renea Caraballo [...] notify patient. Jenniffer Marin documented in this encounterOhiohealth Grady Memorial Hospital06-02-2023 History of Present illness Narrative* Delicia Quiñonez APRN.ADJUNCT ART HISTORY INSTRUCTOR - 11/04/2022 11:41 AM EDT CC: Patient [...] Other chest pain Sandrita Mortensen MD. Cath [facility] 08/20/2020. Other pulmonary embolism with acute [...] Emphysema Maternal Grandfather 50 years working on [employer], coal smoke inhalation. Asthma Maternal Grandfather Colon [...] plan. Delicia Quiñonez APRN.CNP documented in this encounterOhiohealth Grady Memorial Hospital03-09-2023 History of Present illness Narrative* Angelica Khloe, YAW.ADJUNCT ART HISTORY INSTRUCTOR - 08/11/2022 11:30 AM EST Images from the original note were not included. [facility] Follow-up Visit Follow-up note August 11, 2022 [...] Encouraged patient to follow up with his grounds caretaker and surgeon to determine when he may [...] like the room was spinning around him. Juda nauseated and was shaking. He used his cane to get to the bathroom and then went back to sleep. Woke up at 0600 and things were still moving/spinning. Not set off by position change. Laid there for a few more hours and told his he needed to go to the ED. EMS took him to [facility]. Was there for four hours. Continuous from [...] Other chest pain Sandrita Mortensen MD. Cath [facility] 08/20/2020. Other pulmonary embolism with acute [...] There is no demonstrated aneurysm of the jena of [place]nes. Mucosal thickening of the inferior [...] Lymph 1.00 - 4.00 k/uL 0.97 (L) [place]% % 9.3 Abs [place] <0.87 k/uL 0.59 Eosin% % 2.7 Abs [...] was advised that he follow-up with his grounds caretaker and surgeon to determine when he may [...] which included preparing to see the patient, wwfi-pn-pjhh patient care, completing clinical documentation, obtaining and/or reviewing separately obtained history, performing a medically appropriate examination, counseling and educating the pat ient/family/caregiver, and ordering medications, tests, or procedures. documented in this encounterOhiohealth Grady Memorial Hospital03-08-[address] Fox [facility] August 10, 2022 2:42pm Note Date/Time August 10, 2022 1:38 pm [facility] Medical Records Department [address] [place] [address] Emergency Department Summary 08/10/22 MR#: [id number] Acct: [id number] Name: ROHAN OLIVIA Rep #:[id number] : 1945 77 From: Akin Fox MD [...] to make it worse Relieved by: Nothing [place] Associated Symptoms Associated Symptoms: Nausea without visual [...] (Paroxysmal benign positional vertigo) Recent Illness/Hospitalization: No [facility] Medical History Abnormal weight loss Acute [...] release 24 hr 30 mg PO DAILY JWKKPU12/16/22 [History Last Taken 04/29/22] lorazepam 1 mg [...] sides with eyes closed. Proprioception was normal. [place]-Hallpike maneuver was negative. The eye askew test [...] 81.0 H Lymph % (Auto) 11.6 L [place] % (Auto) 5.7 Eos % (Auto) 0.9 [...] your Primary Care Provider. Call [facility] ([phone]) or report to the closest Emergency Room. Call 911 if necessary. 08/10/22 1442 <Electronically signed by Akin Fox MD> Cosigner Signature (if applicable): CC: Dr. Brandon Cantor MD ~ Signed [facility] Work Phone: 1(384) 376-916603-08-2023 Miscellaneous Notes* Telephone Encounter - Nancy Hawthorne [...] 10. : n/a Protocols used: Dizziness - [id number] documented in this encounterOhiohealth Grady Memorial Hospital03-02-2023 History of Present illness Narrative* Brandon Cantor MD - 08/04/2022 11:20 AM EST This note was created using [employer]palm[employer]. Subjective Rohan Olivia Jr. is a 77 [...] Nodules On CT Coronary Artery Disease of [place] Artery of [place] Heart With Stable Angina Pectoris (Hcc) Unsteady [...] current medication(s) 3. 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 Mild. No aspirin needed. 4. Vasomotor rhinitis - ICD9: 477.9, ICD10: J30.0 Discussed medication dosage, usage, goals of therapy, and side effects. - IPRATROPIUM BROMIDE 42 MCG (0.06 %) NASAL SPRAY Brandon Cantor MD documented in this encounterOhiohealth Grady Memorial Hospital02-13-2023 History of Present illness Narrative* Debra Castrejon [...] problems with his feet. documented in this encounterOhiohealth Grady Memorial Hospital01-10-2023 History of Present illness Narrative* Sharon Dougherty MD - 06/14/2022 10:00 AM EST Images from the original note were not included. . Respiratory Alpine Note Patient name: Rohan Olivia Jr. PCP: [...] DATE OF EXAM: Aug 17 2020 2:30PM [facility] 0541 - CT CHEST WO IVCON [...] loc w/o Ur Obs/LUTS 06/19/2009 Chronic bronchitis ([facility]) 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 Clostridium difficile diarrhea 08/21/2021 Enterocolitis due to Clostridium difficile 05/25/2015 Gross hematuria 01/30/2018 Hemarthrosis following procedure 07/23/2021 Right knee s/p TKR Hypertension 05/04/2009 Hyperthyroidism, subclinical 06/19/2009 OA (osteoarthritis) of knee 01/24/2013 Obesity 06/19/2009 Other chest pain Snadrita Mortensen MD. [facility] 08/20/2020. Other pulmonary embolism with acute cor pulmonale ([facility]) 01/30/2018 fall, right hip fracture, right total hip Other pulmonary embolism with acute cor pulmonale ([facility]) Panic attacks 2000 previously on Xanax Parkinson's disease ([facility]) 11/17/2021 Pulmonary hypertension ([facility]) 01/30/2018 Renal cell cancer, left ([facility]) 05/05/2022 Seborrheic keratosis 06/19/2009 ALLERGIES No Known [...] Emphysema Maternal Grandfather 50 years working on [employer], coal smoke inhalation. Asthma Maternal Grandfather Colon [...] with urology 3. Former cigarette smoker -Former 79-pxrx-rhrp smoker having quit 1998 with sequelae of emphysema, asymptomatic -Does not qualify for low-dose chest CT cancer screening based on duration of smoking cessation Sharon Dougherty MD Respiratory Alpine documented in this encounterOhiohealth Grady Memorial Hospital11-29-2022 History of Present illness Narrative* Eugenia Douglas INSTRUCTOR BRIDGE - 05/03/2022 11:22 AM EST TRANSITION CARE MANAGEMENT (TCM) INITIAL CONTACT Interior Design Professor Outreach Provider Action/FYI: TCM Initial contact with patient post discharge, spoke to patient. Patient identified by name and . TRANSITION CARE MANAGEMENT INITIAL OUTREACH DOCUMENTATION: Date of Outreach: 05/03/2022 Outreach Attempt 1: Contact Made Date of Discharge 05/01/2022 Some recent data might be hidden SUMMARY: -Pt discharged from [facility] on 05/01/22. -Admitted for: intractable back pain [...] for provider to review documented in this encounterOhiohealth Grady Memorial Hospital11-26-2022 Hospital Discharge instructions Additional Instructions Continue to take Tylenol uvxpn-vdx-cxvbg for couple of days Follow-up with your primary care doctor within a week Date of Discharge: 04/30/22[facility] Work Phone: 1(499) 907-458811-01-2022 History of Present illness Narrative* Debra Castrejon [...] care Susana Gonsalez LPN documented in this encounterOhiohealth Grady Memorial Hospital10-31-2022 History of Present illness Narrative* Douglas Mortenesn MD - 04/04/2022 12:11 PM EDT Images from the original note were not included. Douglas Mortensen MD Interventional Cardiology [facility] [address], [place] [address] [phone] Chief Complaint Patient presents with: Established Patient [...] Other chest pain Sandrita Mortensen MD. Cath /[facility] 08/20/2020. Other pulmonary embolism with acute [...] Emphysema Maternal Grandfather 50 years working on [employer], coal smoke inhalation. Asthma Maternal Grandfather Colon [...] to correct any errors. documented in this encounterOhiohealth Grady Memorial Hospital10-28-2022 Instructions* Patient Instructions* Delicia Quiñonez APRN.CNP - 04/01/2022 11:36 AM EDT Increase Paxil back to one tablet daily Limit the amount of milk and milk products including chocolate in your diet documented in this encounterOhiohealth Grady Memorial Hospital10-28-2022 History of Present illness Narrative* Delicia Quiñonez [...] by neurology. He has not seen his appeals reviewer veteran or retail advertising account executive in a while. Not sure if he was supposed to follow-up. REVIEW OF SYSTEMS See HPI PAST MEDICAL HISTORY Diagnosis Date Acquired polycythemia 01/24/2013 Actinic Keratosis (Premalignant AK) 09/05/2010 Adenomatous colon polyp 10/09/2014 Anxiety 06/19/2009 BPH loc w/o Ur Obs/LUTS 06/19/2009 Chronic bronchitis ([facility]) 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 Clostridium difficile diarrhea 08/21/2021 Enterocolitis due to Clostridium difficile 05/25/2015 Gross hematuria 01/30/2018 Hemarthrosis following procedure 07/23/2021 Right knee s/p TKR Hypertension 05/04/2009 Hyperthyroidism, subclinical 06/19/2009 OA (osteoarthritis) of knee 01/24/2013 Obesity 06/19/2009 Other chest pain Sandrita Mortensen MD. Cath [facility] 08/20/2020. Other pulmonary embolism with acute cor pulmonale (HCC) 01/30/2018 fall, right hip fracture, right total hip Other pulmonary embolism with acute cor pulmonale (HCC) Panic attacks 2000 previously on Xanax Parkinson's disease (HCC) 11/17/2021 Pulmonary hypertension ([facility]) 01/30/2018 Seborrheic keratosis 06/19/2009 PAST SURGICAL HISTORY [...] Emphysema Maternal Grandfather 50 years working on [employer], coal smoke inhalation. Asthma Maternal Grandfather Colon [...] with pulmonology 11. 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 Cath [facility] 08/20/2020. Other pulmonary embolism with acute [...] at this time. - Patient was counseled [id number] by myself (the billing provider) for the following immunizations and vaccine components, including side effects: COVID- 19. Patient consents for immunization and understands risks and benefits. A VIS sheet on each immunization was given to the patient. - follow-up for medicare annual exam in one year Delicia Quiñonez APRN.CNP documented in this encounterOhiohealth Grady Memorial Hospital10-25-2022 Miscellaneous Notes* Telephone Encounter - Shirley Benoit Ma - 03/29/2022 1:27 PM EDT Last OV: 11/17/21 Next OV: 04/01/22 documented in this encounterOhiohealth Grady Memorial Hospital08-12-2022 Miscellaneous Notes* Telephone Encounter - Marquis Raymond [...] pharmacy. Marquis Raymond Ma documented in this encounterOhiohealth Grady Memorial Hospital07-26-2022 Miscellaneous Notes* Telephone Encounter - Delicia Quiñonez [...] pharmacy. Marquis Raymond Ma documented in this encounterOhiohealth Grady Memorial Hospital07-01-2022 History of Present illness Narrative* Debra Pattsiomara [...] Objective: Patient presents to clinic ambulating in [facility] Vasc: DP and PT pulses [...] months. Debra Castrejon DPM documented in this encounterOhiohealth Grady Memorial Hospital06-29-2022 Miscellaneous Notes* Telephone Encounter - Amrita Hernandez [...] driving? Amrita Hernandez RN documented in this encounterOhiohealth Grady Memorial Hospital06-23-2022 History of Present illness Narrative* Angelica Ledbetter APRN.ADJUNCT ART HISTORY INSTRUCTOR - 11/25/2021 2:30 PM EDT Images from the original note were not included. [facility] Neurologic [facility] New Patient visit New Patient Consultation November 25, 2021 HPI: Mr. Olivia presents today secondary to issues of Parkinson's Disease. He states that he had a virtual visit with Dr. Simon in [place]. However, he lives in [place] so he would prefer to follow down in [place]. Per Dr. Simon on 10/11/21: ASSESSMENT: Mr. [...] Sinemet. Taking it at 0730, 1300, and [phone]. Not taking with meals. Last took his [...] Other chest pain Sandrita Mortensen MD. Cath [facility] 08/20/2020. Other pulmonary embolism with acute [...] There is no demonstrated aneurysm of the jena of [place]. Mucosal thickening of the inferior [...] Lymph 1.00 - 4.00 k/uL 0.97 (L) [place]% % 9.3 Abs [place] <0.87 k/uL 0.59 Eosin% % 2.7 Abs [...] seen by movement disorder clinic via teleneurology. Juda that symptoms suggestive of PD and started [...] which included preparing to see the patient, dzdi-ed-qqcb patient care, completing clinical documentation, obtaining and/or reviewing separately obtained history, performing a medically appropriate examination and counseling and educating the patient/family/caregiver. documented in this encounterOhiohealth Grady Memorial Hospital06-15-2022 History of Present illness Narrative* Brandon Cantor MD - 11/17/2021 3:14 PM EDT This note was created using [employer]. Subjective Rohan Olivia Jr. is a 76 [...] Nodules On CT Coronary Artery Disease of [place] Artery of [place] Heart With Stable Angina Pectoris (Hcc) Unsteady [...] information. Brandon Cantor MD documented in this encounterOhiohealth Grady Memorial Hospital06-15-2022 History of Past illness Narrative* Problem Noted [...] of this encounter (statuses as of 08/04/2022) [facility]06-15-20[facility] History of Past illness Narrative* Problem Noted [...] of this encounter (statuses as of 08/11/2022) [facility]06-15-2022 History of Past illness Narrative* Problem Noted [...] of this encounter (statuses as of 08/11/2022) [facility]06-15-20[facility] History of Past illness Narrative* Problem Noted [...] of this encounter (statuses as of 11/04/2022) [facility]06-15-20[facility] History of Past illness Narrative* Problem Noted [...] of this encounter (statuses as of 01/24/2023) [facility]06-[facility]-20[facility] History of Past illness Narrative* Problem Noted [...] of this encounter (statuses as of 02/04/2023) [facility]06-[facility]-20[facility] History of Past illness Narrative* Problem Noted [...] of this encounter (statuses as of 02/13/2023) [facility]06-15-20[facility] History of Past illness Narrative* Problem Noted [...] of this encounter (statuses as of 03/14/2023) [facility]06-[facility]-20[facility] History of Past illness Narrative* Problem Noted [...] of this encounter (statuses as of 03/28/2023) [facility]06-[facility]-20[facility] History of Past illness Narrative* Problem Noted [...] of this encounter (statuses as of 04/10/2023) [facility]06-[facility] History of Past illness Narrative* Problem Noted [...] of this encounter (statuses as of 04/17/2023) [facility]06-[facility] History of Past illness Narrative* Problem Noted [...] of this encounter (statuses as of 08/17/2023) [facility]05-17-2022 Miscellaneous Notes* Telephone Encounter - Brandon Cantor [...] list and labs done recently. Faxed to [phone]. Done. Marie Bailey LPN documented in this encounterOhiohealth Grady Memorial Hospital05-09-2022 Instructions* Patient Instructions* Daja Simon DO - 10/11/2021 9:52 AM EDT Please be advised that all test results may take up to a week to be received. If you have not received your test results within this time frame please call the office at [phone]. Please note that during check out today you may be offered Dr. Joyner's wait list due to appointment availability. Please schedule the next available follow up appointment offered to you by the Patient Asbestos Brake Lining Finisher. The office may contact you close to your expected return visit date to offer you a sooner appointment if a cancellation occurs. documented in this encounterOhiohealth Grady Memorial Hospital05-09-2022 History of Present illness Narrative* Daja Simon DO - 10/11/2021 8:49 AM EDT VIRTUAL VISIT PROGRESS NOTE This is a virtual visit using [employer] video visit. It required patient-provider interaction for [...] loc w/o Ur Obs/LUTS 06/19/2009 Chronic bronchitis ([facility]) 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 Clostridium difficile diarrhea 08/21/2021 Enterocolitis due to Clostridium difficile 05/25/2015 Gross hematuria 01/30/2018 Hemarthrosis following procedure 07/23/2021 Right knee s/p TKR Hypertension 05/04/2009 Hyperthyroidism, subclinical 06/19/2009 OA (osteoarthritis) of knee 01/24/2013 Obesity 06/19/2009 Other chest pain Sandrita Mortensen MD. [facility] 08/20/2020. Other pulmonary embolism with acute [...] Emphysema Maternal Grandfather 50 years working on [employer], coal smoke inhalation. Asthma Maternal Grandfather Colon [...] which included preparing to see the patient, [id number] patient care, completing clinical documentation, obtaining and/or reviewing separately obtained history, performing a medically appropriate examination, counseling and educating the pat ient/family/caregiver and ordering medications, tests, or procedures Daja Simon DO documented in this encounterOhiohealth Grady Memorial Hospital04-26-2022 History of Present illness Narrative* Delicia Older, 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 - 09/28/2021 10:42 AM EDT CC: Patient [...] Other chest pain Sandrita Mortensen MD. Cath [facility] 08/20/2020. Other pulmonary embolism with acute [...] Emphysema Maternal Grandfather 50 years working on [employer], coal smoke inhalation. Asthma Maternal Grandfather Colon [...] Prefers to stay local, will fax to [facility]. Prescription instructions reviewed with patient as applicable. Potential red flag symptoms discussed with the patient. Reviewed appropriate action plan to take if red flag symptoms occur. Patient agreeable to treatment plan. Delicia Quiñonez APRN.CNP documented in this encounterOhio[facility] Miscellaneous Notes* Telephone Encounter - Sherly Gong [...] without inflammation of gallbladder. documented in this encounterOhio[facility]04-11-2022 History of Present illness Narrative* RT Ollie(R) [...] 2021 TIME: 3:27 PM documented in this encounterOhio[facility]04-11-2022 History of Present illness Narrative* Ashwin Apodaca [...] loc w/o Ur Obs/LUTS 06/19/2009 Chronic bronchitis ([facility]) 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 Clostridium difficile diarrhea 08/21/2021 Enterocolitis due to Clostridium difficile 05/25/2015 Gross hematuria 01/30/2018 Hemarthrosis following procedure 07/23/2021 Right knee s/p TKR Hypertension 05/04/2009 Hyperthyroidism, subclinical 06/19/2009 OA (osteoarthritis) of knee 01/24/2013 Obesity 06/19/2009 Other chest pain Sandrita Mortensen MD. Cath [facility] 08/20/2020. Other pulmonary embolism with acute [...] Emphysema Maternal Grandfather 50 years working on [employer], coal smoke inhalation. Asthma Maternal Grandfather Colon [...] CT ABD/PEL W IVCON - INSERT IV ([place]) Ashwin Apodaca MD documented in this encounterOhio[facility]04-01-2022 Miscellaneous Notes* Telephone Encounter - Analia Roque [...] send to Emanuel Mcarthur documented in this encounterOhiohealth [facility]ady [facility]04-01-2022 Miscellaneous Notes* Telephone Encounter - Eugenia Douglas LPN - 09/03/2021 11:29 AM EDT rec'd covermymeds for vancomycin 125mg. Requested PA electronically. And response is this is covered no PA is needed. Called the pharmacy and pt has picked this up. Paying 50$. documented in this encounterOhiohealth [facility]03-31-2022 Miscellaneous Notes* Telephone Encounter - Renea Caraballo [...] phone patient with reply. documented in this encounterOhiohealth [facility]02-05-2022 History of Past illness Narrative* Problem Noted [...] of this encounter (statuses as of 11/18/2021) [facility] of Past illness Narrative* Problem Noted [...] of this encounter (statuses as of 11/25/2021) [facility] of Past illness Narrative* Problem Noted [...] of this encounter (statuses as of 12/01/2021) [facility] of Past illness Narrative* Problem Noted [...] of this encounter (statuses as of 12/03/2021) [facility] of Past illness Narrative* Problem Noted [...] of this encounter (statuses as of 12/28/2021) [facility] of Past illness Narrative* Problem Noted [...] of this encounter (statuses as of 12/28/2021) [facility] of Past illness Narrative* Problem Noted [...] of this encounter (statuses as of 01/14/2022) [facility] of Past illness Narrative* Problem Noted [...] of this encounter (statuses as of 03/29/2022) [facility] of Past illness Narrative* Problem Noted [...] of this encounter (statuses as of 04/01/2022) [facility] of Past illness Narrative* Problem Noted [...] of this encounter (statuses as of 04/04/2022) [facility] of Past illness Narrative* Problem Noted [...] of this encounter (statuses as of 04/05/2022) [facility] of Past illness Narrative* Problem Noted [...] of this encounter (statuses as of 05/03/2022) [facility] of Past illness Narrative* Problem Noted [...] of this encounter (statuses as of 06/14/2022) [facility] of Past illness Narrative* Problem Noted [...] of this encounter (statuses as of 07/18/2022) [facility] History of Past illness Narrative* Problem Noted [...] of this encounter (statuses as of 09/02/2021) [facility] of Past illness Narrative* Problem Noted [...] of this encounter (statuses as of 09/03/2021) [facility] of Past illness Narrative* Problem Noted [...] of this encounter (statuses as of 09/13/2021) [facility] of Past illness Narrative* Problem Noted [...] of this encounter (statuses as of 09/14/2021) [address]08-2021 History of Past illness Narrative* Problem [...] of this encounter (statuses as of 09/14/2021) [facility] of Past illness Narrative* Problem Noted [...] of this encounter (statuses as of 09/14/2021) [facility] History of Past illness Narrative* Problem Noted [...] of this encounter (statuses as of 09/28/2021) [facility] History of Past illness Narrative* Problem Noted [...] of this encounter (statuses as of 10/11/2021) [facility] History of Past illness Narrative* Problem Noted [...] of this encounter (statuses as of 10/19/2021) [facility] HospitalDischar summary Author Wisam Bella [facility] August 18, 2023 9:13am Note Date/Time August 18, 2023 9:1 3am [facility] Medical Records Department [address] [place] [address] Emergency Department Summary 08/18/23 MR#: [id number] Acct: [id number] Name: ROHAN OLIVIA Rep #:[id number] : 1945 78 From: Wisam Bella DO [...] have acid reflux so he took some [id number] medication without symptom improvement and secondary to the persistent pain comes in for evaluation [facility] Medical History Abnormal weight loss Acute [...] release 24 hr 30 mg PO DAILY [id number]/16/22 [History Last Taken 04/29/22] lorazepam 1 mg [...] 80.6 H Lymph % (Auto) 9.4 L [place] % (Auto) 7.1 Eos % (Auto) 1.8 [...] EDT , Management Discussion w/another healthcare provider: Rig Operator Discharge Plan Triage Chief Complaint: Chest Pain [...] Provider] - Disposition Disposition: Acute Care Hospital [facility] What to do if you have Problems For any increased pain, shortness of breath, bleeding, nausea or vomiting, chestpain, or any unexpected problems, contact your Primary Care Provider. Call [facility] ([phone]) or report to the closest Emergency Room. Call 911 if necessary. 08/18/23912 <Electronically signed by Wisam Bella DO> Cosigner Signature (if applicable): CC: Dr. Brandon Cantor MD ~ Signed [facility] Work Phone: Evaluation note* Diagnosis Clostridium difficile diarrhea- Primary Intestinal infection due to clostridium difficile documented in this encounter [facility] note* Diagnosis Right lower quadrant abdominal pain Abdominal pain, right lower quadrant documented in this encounter [facility] note* Diagnosis Renal mass, left- Primary Unspecified disorder of kidney and ureter documented in this encounter [facility] note* Diagnosis Right lower quadrant abdominal pain Abdominal pain, right lower quadrant documented in this encounter [facility] note* Diagnosis Right lower quadrant abdominal pain Abdominal pain, right lower quadrant documented in this encounter [facility] note* Diagnosis Tremor of both hands- Primary Abnormal gait Abnormality of gait Family history of Parkinson disease Hyperthyroidism, subclinical Thyrotoxicosis without mention of goiter or other cause, without mention of thyrotoxic crisis or storm documented in this encounter [facility] note* Diagnosis Parkinson disease (HCC)- Primary Paralysis agitans Tremor of both hands Abnormal gait Abnormality of gait Family history of Parkinson disease documented in this encounter [facility] note* Diagnosis Onset Date Resolution Status Acute respiratory failure with hypoxia acute Status post total right knee replacement acute Hypertension chronic Status post total right knee replacement acute Blister of lower leg resolve d Fever resolved Knee effusion, right resolve d [facility] Work Phone: Evaluation note* Diagnosis Onset Date Resolution Status Acute respiratory failure with hypoxia acute Status post total right knee replacement acute Hypertension chronic Status post total right knee replacement acute Blister of lower leg resolve d Fever resolved Knee effusion, right resolve d Brain TIA acute Expressive aphasia acute Hyperthyroidism acute Hyperlipidemia chronic [facility] Work Phone: Evaluation note* Diagnosis Onset Date Resolution Status Acute respiratory failure with hypoxia acute Status post total right knee replacement acute Hypertension chronic Status post total right knee replacement acute Blister of lower leg resolve d Fever resolved Knee effusion, right resolve d Expressive aphasia acute Hyperthyroidism acute Brain TIA acute Expressive aphasia acute Hyperthyroidism acute Hyperlipidemia [facility] Work Phone: Evaluation note* Diagnosis Onset Date Resolution Status Acute respiratory failure with hypoxia acute Status post total right knee replacement acute Hypertension chronic Status post total right knee replacement acute Blister of lower leg resolve d Fever resolved Knee effusion, right resolve d Brain TIA resolved [facility] Work Phone: Evaluation note* Diagnosis Chronic diarrhea- Primary Diarrhea Abnormal weight loss Loss of weight Anxiety Anxiety state, unspecified Parkinson's disease (HCC) Paralysis agitans documented in this encounter [facility] note* Diagnosis Parkinson's disease (HCC)- Primary Paralysis agitans documented [facility] this encounter [facility]* Diagnosis Onychomycosis- Primary Dermatophytosis of nail Pain in toe of left foot Pain in limb Pain in toe of right foot Pain in limb documented in this encounter [facility]* Diagnosis Onset Date Resolution Status Brain TIA resolved Thyrotoxicosis acute Carotid stenosis, left acute Brain TIA resolved [facility] Work Phone: Evaluation note* Diagnosis 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) Hyperlipidemia LDL goal <100 Other and unspecified hyperlipidemia [facility] Anxiety Anxiety state, unspecified Insomnia, unspecified type documented [facility] this encounter [facility]* Diagnosis 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) Hyperlipidemia LDL goal <100 Other and unspecified hyperlipidemia documented [facility] this encounter [facility]* Diagnosis Onset Date Resolution Status Thyrotoxicosis acute Carotid stenosis, left chron ic Brain TIA resolved Parkinsons disease acute Carotid stenosis, left chron ic Mild cognitive impairment ch ronic Polyneuropathy chronic Vitamin d deficiency chronic Transient ischemic attack re solved Left renal mass acute [facility] Work Phone: Evaluation note* Diagnosis 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) documented [facility] this encounter [facility]* Diagnosis Medicare annual wellness visit, subsequent- [...] nodules on CT 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) documented [facility] this encounter [facility]* Diagnosis Onset Date Resolution Status Carotid stenosis, left chron ic Brain TIA resolved Parkinsons disease acute Carotid stenosis, left chron ic Mild cognitive impairment ch ronic Polyneuropathy chronic Vitamin d deficiency chronic Transient ischemic attack re solved Left renal mass acute Change in bowel habit acute Diarrhea chronic [facility] Work Phone: Evaluation note* Diagnosis Coronary artery disease involving gambell coronary artery of gambell heart without angina pectoris [I25.10 (ICD-10-CM)]- Primary [facility] encounter [facility]* Diagnosis Onychomycosis- Primary Dermatophytosis of nail Pain in toe of left foot Pain in limb Pain in toe of right foot Pain in limb [facility] encounter [facility]* Diagnosis Onset Date Resolution Status Parkinsons disease acute Carotid stenosis, left chron ic Mild cognitive impairment ch ronic Polyneuropathy chronic Vitamin d deficiency chronic Transient ischemic attack re solved Left renal mass acute Change in bowel habit acute Diarrhea chronic Thyrotoxicosis acute Carotid stenosis, left chron ic Transient ischemic attack re solved [facility] Work Phone: Evaluation note* Diagnosis Onset Date [...] Intractable back pain acute Renal dysfunction acute [facility] Work Phone: Evaluation note* Diagnosis Lung nodules- Primary Other nonspecific abnormal finding of lung field 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) Former cigarette smoker Personal history of tobacco use, presenting hazards to health documented [facility] encounter [facility] Diagnosis Onset Date Resolution Status Left renal mass acute Change in bowel habit acute Diarrhea chronic Thyrotoxicosis acute Carotid stenosis, left chron ic Transient ischemic attack re solved Acute low back pain acute Fall acute Hypoxia acute Intractable back pain acute Renal dysfunction resolved Colon polyps acute Diarrhea chronic [facility] Work Phone: Evaluation note* Diagnosis Onset Date Resolution Status Thyrotoxicosis acute Carotid stenosis, left chron ic Transient ischemic attack re solved Acute low back pain acute Fall acute Hypoxia acute Intractable back pain acute Renal dysfunction resolved Colon polyps acute Diarrhea chronic Diarrhea [facility] Work Phone: Evaluation note* Diagnosis Onychomycosis- Primary Dermatophytosis of nail Pain in toe of left foot Pain in limb Pain in toe of right foot Pain in limb [facility] encounter [facility]* Diagnosis Acute hip pain, left- Primary Primary hypertension Unspecified essential hypertension 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 Allergic rhinitis, cause unspecified Parkinson's disease (HCC)- Primary Paralysis agitans TIA (transient ischemic attack) Unspecified transient cerebral ischemia [facility] Diagnosis Onset Date Resolution Status Carotid stenosis, left chron ic Transient ischemic attack re solved Acute low back pain acute Fall acute Hypoxia acute Intractable back pain acute Renal dysfunction resolved Colon polyps acute Diarrhea chronic Diarrhea [facility] Work Phone: Evaluation note* Diagnosis Parkinson's disease (HCC)- Primary Paralysis agitans TIA (transient ischemic attack) Unspecified transient cerebral ischemia Transient cerebral ischemia, unspecified type Diplopia Vertigo Dizziness and giddiness documented [facility] this encounter [facility] Diagnosis Onset Date Resolution Status Diarrhea chronic Diarrhea chronic Thyrotoxicosis acute [facility] Work Phone: Evaluation note* Diagnosis Primary hypertension- Primary Unspecified essential hypertension Chronic diarrhea Diarrhea Anxiety Anxiety state, unspecified Insomnia, unspecified type Hyperlipidemia LDL goal <100 Other and unspecified hyperlipidemia Hyperthyroidism, subclinical Thyrotoxicosis without mention of goiter or other cause, without mention of thyrotoxic crisis or storm Platelets decreased (HCC) Thrombocytopenia, unspecified documented [facility] encounter [facility] Diagnosis 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) Hyperlipidemia LDL goal <100 Other and unspecified hyperlipidemia [facility] Diagnosis Onset Date Resolution Status Diarrhea [facility] Work Phone: Evaluation note* Diagnosis Onychomycosis- Primary Dermatophytosis of nail Pain in toe of left foot Pain in limb Pain in toe of right foot Pain in limb [facility] encounter [facility] Diagnosis 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) [facility] Diagnosis Onset Date Resolution Status Diarrhea chronic Thyrotoxicosis [facility] Work Phone: Evaluation note* Diagnosis Primary hypertension- Primary Unspecified essential hypertension Hyperlipidemia LDL goal <100 Other and unspecified hyperlipidemia 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) documented [facility] encounter [facility] Diagnosis Onset Date Resolution Status Diarrhea chronic Thyrotoxicosis chronic Carotid stenosis, left chron ic Pyloric stenosis acute [facility] Work Phone: Evaluation note* Diagnosis Onset Date Resolution Status Thyrotoxicosis chronic Carotid stenosis, left chron ic Pyloric stenosis acute Diarrhea [facility] Work Phone: Evaluation note* Diagnosis Onychomycosis- Primary Dermatophytosis of nail Pain in toe of left foot Pain in limb Pain in toe of right foot Pain in limb [facility] Diagnosis Onset Date Resolution Status Diarrhea chronic Acute calculous cholecystitis acute Parkinson's disease acute Hypertension [facility] Work Phone: Evaluation note* Diagnosis Onset Date Resolution Status Diarrhea chronic Acute calculous cholecystitis acute Constipation acute Hypoxia acute Parkinson's disease acute Weakness acute Hypertension [facility] Work Phone: Evaluation note* Diagnosis Onset Date Resolution Status Diarrhea chronic Parkinson's disease acute Hypertension chronic Acute calculous cholecystitis resolved Constipation resolved Hypoxia resolved Weakness resolved Urinary retention acute S/P laparoscopic cholecystectomy acute Thyrotoxicosis [facility] Work Phone: Evaluation note* Diagnosis Bilateral hearing loss, unspecified hearing loss type- Primary Parkinson's disease, unspecified whether dyskinesia present, unspecified whether manifestations fluctuate (HCC) Anxiety Anxiety state, unspecified Primary hypertension Unspecified essential hypertension Thyrotoxicosis without thyroid storm, unspecified thyrotoxicosis type Need for COVID-19 vaccine [facility] encounter [facility]* Diagnosis Onychomycosis- Primary Dermatophytosis of nail Pain in toe of left foot Pain in limb Pain in toe of right foot Pain in limb [facility] Diagnosis 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) Hyperlipidemia LDL goal <100 Other and unspecified hyperlipidemia [facility]* Diagnosis Onychomycosis- Primary Dermatophytosis of nail Pain in toe of left foot Pain in limb Pain in toe of right foot Pain in limb documented [facility] encounter [facility] Diagnosis 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) [facility] Primary hypertension- Primary Unspecified essential hypertension Hyperlipidemia LDL goal <100 Other and unspecified hyperlipidemia 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) [facility] Diagnosis Parkinson's disease, unspecified whether dyskinesia present, unspecified whether manifestations fluctuate (HCC)- Primary Abnormality of gait [facility]* Diagnosis Medicare annual wellness visit, subsequent- Primary Routine general medical examination at a health care facility Anxiety Anxiety state, unspecified Primary hypertension Unspecified essential hypertension Vasomotor rhinitis Allergic rhinitis, cause unspecified Screening for depression Parkinson's disease, unspecified whether dyskinesia present, unspecified whether manifestations fluctuate (HCC) 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) Platelets decreased (HCC) Thrombocytopenia, unspecified Stage 3a chronic kidney disease (HCC) Thyrotoxicosis without thyroid storm, unspecified thyrotoxicosis type Need for COVID-19 vaccine History of renal cell cancer [facility] Diagnosis Onychomycosis- Primary Dermatophytosis of nail Pain in toe of left foot Pain in limb Pain in toe of right foot Pain in limb Callus of foot Corns and callosities [facility] Diagnosis Primary hypertension Unspecified essential hypertension [facility]* Diagnosis Parkinson's disease, unspecified whether dyskinesia present, unspecified whether manifestations fluctuate (HCC)- Primary Abnormality of gait [facility] Diagnosis Onychomycosis- Primary Dermatophytosis of nail Pain in toe of left foot Pain in limb Pain in toe of right foot Pain in limb Callus of foot Corns and callosities [facility]* Diagnosis Dizziness- Primary Dizziness and giddiness Near syncope Syncope and collapse Bradycardia Other specified cardiac dysrhythmias Orthostatic hypotension Stage 3a chronic kidney disease (HCC) Abnormal CXR Other nonspecific abnormal finding of lung field [facility] Diagnosis Near syncope- Primary Syncope and collapse Primary hypertension Unspecified essential hypertension Bradyarrhythmia Other specified cardiac dysrhythmias 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 Parkinson's disease, unspecified whether dyskinesia present, unspecified whether manifestations fluctuate (HCC) [facility] Diagnosis Bradyarrhythmia- Primary Other specified cardiac dysrhythmias Primary hypertension Unspecified essential hypertension Dizziness Dizziness and giddiness Nausea without vomiting Anxiety Anxiety state, unspecified [facility] Diagnosis Sinus bradycardia- Primary Other specified cardiac dysrhythmias [facility] encounter [facility]* Diagnosis Onychomycosis- Primary Dermatophytosis of nail Pain in toe of left foot Pain in limb Pain in toe of right foot Pain in limb Callus of foot Corns and callosities documented [facility] encounter [facility]* Diagnosis Parkinson's disease, unspecified whether dyskinesia present, unspecified whether manifestations fluctuate (HCC)- Primary Abnormality of gait Lightheaded Dizziness and giddiness Bradycardia Other specified cardiac dysrhythmias [facility] Author James Obrien [facility] February 02, 2023 11:28am Note Date/Time February 02, 2023 11 :28am [facility] Medical Records Department [address] [place] [id number] History & Physical Exam 02/02/23 1128 MR#: [id number] Acct: [id number] Name: ROHAN OLIVIA Rep #:[id number] : 1945 77 From: James Obrien DO PCP: Dr. Brandon Cantor MD Status:R [facility] Location: [place] [address] History and Physical Date of Admission: 02/02/23 77 M who presents to the office today for Rohan Olivia [birth year]? [facility] ED 11.14.21 with suspicion of repeat pseudomembranous [...] NICOLE comp, celiac without pertinent abnormality.?AST L13-ALT [id number], apANCA H1:160?Stool?calprotectin, lactoferrin, C.difficile WNL? OV 09.02.22 [...] Brandon Cantor MD; James Obrien DO~ Signed [facility] Work Phone: History and physical note Author James Obrien [facility] April 19, 2023 10:09am Note Date/Time April 19, 2023 10:09am [facility] Medical Records Department [address] [place] [address] History & Physical Exam 04/19/23 1007 MR#: [id number] Acct: [id number] Name: ROHAN OLIVIA Rep #:[id number] : 1945 77 From: James Obrien DO PCP: Dr. Brandon Cantor MD Status:R [facility] Location: [place] [address] HPI - General General Date of Admission: 04/19/23 Date of Service: 04/19/23 HPI Narrative ROHAN OLIVIA, is a 77 M who presents for an upper endoscopy regarding esophagealdysphagia. [facility] ED 11.14.21 with suspicion of repeat pseudomembranous [...] NICOLE comp, celiac without pertinent abnormality.?AST L13-ALT X80-EL99, apANCA H1:160?Stool?calprotectin, lactoferrin, C.difficile WNL? OV 09.02.22 [...] really not liking the frequent bms atnight. [facility] Medical History (Updated 04/19/23 @ 10:[address] Ramirze Friend, DO) Abnormal weight loss Acute respiratory [...] release 24 hr 30 mg PO DAILY EQPEPU22/16/22 [History Last Taken 04/29/22] lorazepam 1 mg [...] Brandon Cantor MD; James Obrien DO~ Signed [facility] Work Phone: History and physical note Author Geovanna Parsons [facility] August 18, 2023 10:47am Note Date/Time August 18, 2023 9:1 6am [facility] Medical Records Department [address] [place] [address] H&P Exam - Surgical 08/18/23 0916 MR#: [id number] Acct: [id number] Name: ROHAN OLIVIA Rep #:[id number] : 1945 78 From: Geovanna Parsons MD PCP: Dr. Brandon Cantor MD Status:A DM TANISHA Location: [facility] [id number] HPI - General General Date of Admission: [...] and then robotic left nephrectomy in 2021. [facility] Medical History Abnormal weight loss Acute respiratory [...] release 24 hr 30 mg PO DAILY AQQAZL30/16/22 [History Last Taken 04/29/22] lorazepam 1 mg [...] 80.6 H, Lymph % (Auto) 9.4 L, [place] %(Auto) 7.1, Eos % (Auto) 1.8, Baso [...] questions were answered. Geovanna Parsons M.D. Pager: [phone] [facility] [address] [place] [address], [address] [place] [id number] Office: [phone] 08/18/23 1046 <Electronically signed by Geovanna Parsons MD> Cosigner Signature (if applicable): CC: Dr. Geovanna Parsons MD; Dr. Brandon Cantor MD~ Signed [facility] Work Phone: [facility] Work Phone: [facility] Work Phone: Hospital Discharge instructions Additional Instructions As we discussed it was noted that your resting heart rate is around 50-60. I would recommend that we decrease your metoprolol to 12.5 mg (a half a tablet) twice a day. 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 This may be faster to see your primary care doctor.[facility] Work Phone: Reason for referral (narrative)* Diagnostic Procedure Only (Urgent) - Pending Review Specialty Diagnoses / Procedures Referred By Contac t Referred To Contact US IMAGING Diagnoses Renal mass, left Procedures US KIDNEY/BLADDER US RETROPERITONEAL REAL TIME W/IMAGE COMPLETE Ashwin Apodaca MD [address] [place] [address] Us Imaging Referral ID Status Reason Start Date Expiration Date Visits Requested Visits Authorized [id number] Pending Review Auto-Generat ed Referral 09/13/2021 10/13/2022 1 1 [facility] for referral (narrative)No reason for referral information availableW[facility] Work Phone: Summary Purpose Family History No Family History Records Found Relationship Condition Age at Onset Recorded Date/T isela father Malignant neoplasm of lung Unknown mother Parkinson's disease Unknown Heart failure Unknown Advance Directives No Advanced Directives Records FoundDocuments on File Type Date Recorded 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 Advance Directive(s) 08/20/2020 8:51 AM Documents on File Type Date Recorded 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 Advance Directive(s) 08/20/2020 8:51 AM Advance Directive Response Recorded Date/ Time Living Will No October 15, 2021 2 :18pm Power of Cone Winder No October 15, 2021 2:18pm Advance Directive Response Recorded Date/ Time Living Will No October 18, 2021 1 1:25am Power of Cone Winder No October 18, 2021 11:25am Advance Directive Response Recorded Date/ Time Living Will No October 18, 2021 1 :24pm Power of Cone Winder No October 18, 2021 1:24pm Advance Directive Response Recorded Date/ Time Living Will No November 14, 2021 7:07am Power of Cone Winder No November 14 7:07am Advance Directive Response Recorded Date/ Time Living Will No February 16, 2022 3:36pm Power of Cone Winder No February 3:36pm Advance Directive Response Recorded Date/ Time Living Will No April 21, 2 022 12:35pm Power of Cone Winder No April 21, 2022 12:35pm Advance Directive Response Recorded Date/ Time Living Will No April 29, 2 022 5:09pm Power of Cone Winder No April 29, 2022 5:09pm Advance Directive Response Recorded Date/ Time Living Will No August 10, 2022 12:12pm Power of Cone Winder No August 10 12:12pm Advance Directive Response Recorded Date/ Time Living Will No August 10, 2022 1:12pm Power of Cone Winder No August 10 1:12pm Advance Directive Response Recorded Date/ Time Living Will No January 31 11:19am Power of Cone Winder No January 31 2 023 11:19am Advance Directive Response Recorded Date/ Time Living Will No January 31 10:19am Power of Cone Winder No January 31 2 023 10:19am Advance Directive Response Recorded Date/ Time Living Will No April 17 2 023 11:49am Power of Cone Winder No April 17, 2023 11:49am Advance Directive Response Recorded Date/ Time Living Will No August 18, 2023 2:43am Power of Cone Winder No August 17 2:43am Advance Directive Response Recorded Date/ Time Living Will No August 18, 2023 11:30am Power of Cone Winder No August 17 11:30am Advance Directive Response Recorded Date/ Time Living Will No September 10, 2024 3:19pm Do you have a Healthcare Power of Cone Winder? No September 10, 2024 3:19pm Reason for Referral Specialty Diagnoses / Procedures Referred By Dominga dyson Referred To Contact CT IMAGING Diagnoses Right lower quadrant abdominal pain Procedures CT ABD/PEL W IVCON CT ABD & PELVIS W/CONTRAST Ashwin Apodaca MD [address] [place] [address] Ct Imaging Referral ID Status Reason Start Date Expiration Date V isits Requested Visits Authorized [id number] Closed Auto-Generate d Referral 09/13/2021 10/13/2022 1 1 Specialty Diagnoses / Procedures Referred By Contac t Referred To Contact Neurology Diagnoses Tremor of both hands Abnormal gait Family history of Parkinson disease Procedures CONSULT TO NEUROLOGY OFFICE/OUTPATIENT NEW HIGH MDM 60-74 MINUTES Older, Delicia 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 [address] [place] [address] Referral ID Status Reason Start Date Expiration Date Visits Requested Visits Authorized [id number] Pending Review PCP Requested Referral 09/28/2021 09/28/2022 1 1 Specialty Diagnoses / Procedures Referred By Contac t Referred To Contact Gastroenterology Diagnoses Chronic diarrhea Abnormal weight loss Procedures CONSULT TO GASTROENTEROLOGY Brandon Cantor MD [address] [place] [address] Referral ID Status Reason Start Date Expiration Date Visits Requested Visits Authorized [id number] Ref Not Required PCP Requested Referral 11/17/2021 11/17/2022 1 1 Specialty Diagnoses / Procedures Referred By Contac t Referred To Contact CT IMAGING Diagnoses Lung nodules 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) Procedures CT CHEST WO IVCON DIAGNOSTIC COMPUTED TOMOGRAPHY THORAX W/O Sharon Naqvi MD [address] [place] [address] Ct Imaging Referral ID Status Reason Start Date Expiration Date Visits Requested Visits Authorized [id number] Authorized Auto-Generat ed Referral 06/14/2022 07/14/2023 1 1 Specialty Diagnoses / Procedures Referred By Contac t Referred To Contact MR IMAGING Diagnoses Transient cerebral ischemia, unspecified type Procedures MRI BRAIN WO IVCON MRI BRAIN BRAIN STEM W/O CONTRAST MATERIAL Angelica Ledbetter, 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 [address] [place] [address] Mr Imaging Referral ID Status Reason Start Date Expiration Date Visits Requested Visits Authorized [id number] Authorized Auto-Generat ed Referral 08/11/2022 09/10/2023 1 1 Specialty Diagnoses / Procedures Referred By Contac t Referred To Contact Ent - Otolaryngology Diagnoses Bilateral hearing loss, unspecified hearing loss type Procedures CONSULT TO ENT Brandon Cantor MD [address] [place] [address] Referral ID Status Reason Start Date Expiration Date Visits Requested Visits Authorized [id number] Ref Not Required PCP Requested Referral 11/09/2023 11/08/2024 1 1 Specialty Diagnoses / Procedures Referred By Dominga dyson Referred To Contact [facility] Diagnoses Parkinson's disease, unspecified whether dyskinesia present, unspecified whether manifestations fluctuate (HCC) Abnormality of gait Procedures CONSULT TO PHYSICAL THERAPY PHYSICAL THERAPY EVALUATION HIGH COMPLEX 45 MINS Chris Pearson Jr., MD [address] [place] [address] [facility] [address] [place] [address] Referral ID Status Reason Start Date Expiration Date Visits Requested Visits Authorized [id number] Pending Review Auto-Generat ed Referral 05/13/2024 05/13/2025 [...] FEVER FEVER FEVER FEVER FEVER diarrhea 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, 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, 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 Reason for [...] FEVER FEVER FEVER FEVER FEVER diarrhea 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, 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, 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 TIA (cardiology) [...] FEVER FEVER FEVER FEVER FEVER diarrhea 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, 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, 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 TIA (cardiology) TIA (cardiology) TIA/RX HERE diarrhea EORDER Reason for Visit Acute respiratory fa ilure with hypoxia Status post total right knee replacement Hypertension Status post total right knee replacement Blister of lower leg Fever Knee effusion, right Brain TIA Chief Complaint diarrhea 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 DATE CREATED AUTHOR AUTHOR'S ORGANIZ ATION 12/23/2024 [facility] Source Comments (unrecognize d section and content) In the event this informatio n is protected by the Federal Confidentiality of Alcohol and Drug Abuse Patient Records regulations: The Federal rules restrict any use of the information to criminally investigate or prosecute any alcohol or drug abuse patient.[facility] Hospital[facility] the event this information is protected by the Federal Confidentiality of Alcohol and Drug Abuse Patient Records regulations: The Federal rules restrict any use of the information to criminally investigate or prosecute any alcohol or drug abuse patient.[facility] HospitalIn the event this information is protected by the Federal Confidentiality of Alcohol and Drug Abuse Patient Records regulations: The Federal rules restrict any use of the information to criminally investigate or prosecute any alcohol or drug abuse patient.[facility] HospitalIn the event this information is protected by the Federal Confidentiality of Alcohol and Drug Abuse Patient Records regulations: The Federal rules restrict any use of the information to criminally investigate or prosecute any alcohol or drug abuse patient.[facility] HospitalIn the event this information is protected by the Federal Confidentiality of Alcohol and Drug Abuse Patient Records regulations: The Federal rules restrict any use of the information to criminally investigate or prosecute any alcohol or drug abuse patient.[facility] HospitalIn the event this information is protected by the Federal Confidentiality of Alcohol and Drug Abuse Patient Records regulations: The Federal rules restrict any use of the information to criminally investigate or prosecute any alcohol or drug abuse patient.[facility] HospitalIn the event this information is protected by the Federal Confidentiality of Alcohol and Drug Abuse Patient Records regulations: The Federal rules restrict any use of the information to criminally investigate or prosecute any alcohol or drug abuse patient.[facility] HospitalIn the event this information is protected by the Federal Confidentiality of Alcohol and Drug Abuse Patient Records regulations: The Federal rules restrict any use of the information to criminally investigate or prosecute any alcohol or drug abuse patient.[facility] HospitalIn the event this information is protected by the Federal Confidentiality of Alcohol and Drug Abuse Patient Records regulations: The Federal rules restrict any use of the information to criminally investigate or prosecute any alcohol or drug abuse patient.[facility] HospitalIn the event this information is protected by the Federal Confidentiality of Alcohol and Drug Abuse Patient Records regulations: The Federal rules restrict any use of the information to criminally investigate or prosecute any alcohol or drug abuse patient.[facility] HospitalIn the event this information is protected by the Federal Confidentiality of Alcohol and Drug Abuse Patient Records regulations: The Federal rules restrict any use of the information to criminally investigate or prosecute any alcohol or drug abuse patient.[facility] HospitalIn the event this information is protected by the Federal Confidentiality of Alcohol and Drug Abuse Patient Records regulations: The Federal rules restrict any use of the information to criminally investigate or prosecute any alcohol or drug abuse patient.[facility] HospitalIn the event this information is protected by the Federal Confidentiality of Alcohol and Drug Abuse Patient Records regulations: The Federal rules restrict any use of the information to criminally investigate or prosecute any alcohol or drug abuse patient.[facility] HospitalIn the event this information is protected by the Federal Confidentiality of Alcohol and Drug Abuse Patient Records regulations: The Federal rules restrict any use of the information to criminally investigate or prosecute any alcohol or drug abuse patient.[facility] HospitalIn the event this information is protected by the Federal Confidentiality of Alcohol and Drug Abuse Patient Records regulations: The Federal rules restrict any use of the information to criminally investigate or prosecute any alcohol or drug abuse patient.[facility] HospitalIn the event this information is protected by the Federal Confidentiality of Alcohol and Drug Abuse Patient Records regulations: The Federal rules restrict any use of the information to criminally investigate or prosecute any alcohol or drug abuse patient.[facility] HospitalIn the event this information is protected by the Federal Confidentiality of Alcohol and Drug Abuse Patient Records regulations: The Federal rules restrict any use of the information to criminally investigate or prosecute any alcohol or drug abuse patient.[facility] HospitalIn the event this information is protected by the Federal Confidentiality of Alcohol and Drug Abuse Patient Records regulations: The Federal rules restrict any use of the information to criminally investigate or prosecute any alcohol or drug abuse patient.[facility] HospitalIn the event this information is protected by the Federal Confidentiality of Alcohol and Drug Abuse Patient Records regulations: The Federal rules restrict any use of the information to criminally investigate or prosecute any alcohol or drug abuse patient.[facility] HospitalIn the event this information is protected by the Federal Confidentiality of Alcohol and Drug Abuse Patient Records regulations: The Federal rules restrict any use of the information to criminally investigate or prosecute any alcohol or drug abuse patient.[facility] HospitalIn the event this information is protected by the Federal Confidentiality of Alcohol and Drug Abuse Patient Records regulations: The Federal rules restrict any use of the information to criminally investigate or prosecute any alcohol or drug abuse patient.[facility] HospitalIn the event this information is protected by the Federal Confidentiality of Alcohol and Drug Abuse Patient Records regulations: The Federal rules restrict any use of the information to criminally investigate or prosecute any alcohol or drug abuse patient.[facility] HospitalIn the event this information is protected by the Federal Confidentiality of Alcohol and Drug Abuse Patient Records regulations: The Federal rules restrict any use of the information to criminally investigate or prosecute any alcohol or drug abuse patient.[facility] HospitalIn the event this information is protected by the Federal Confidentiality of Alcohol and Drug Abuse Patient Records regulations: The Federal rules restrict any use of the information to criminally investigate or prosecute any alcohol or drug abuse patient.[facility] HospitalIn the event this information is protected by the Federal Confidentiality of Alcohol and Drug Abuse Patient Records regulations: The Federal rules restrict any use of the information to criminally investigate or prosecute any alcohol or drug abuse patient.[facility] HospitalIn the event this information is protected by the Federal Confidentiality of Alcohol and Drug Abuse Patient Records regulations: The Federal rules restrict any use of the information to criminally investigate or prosecute any alcohol or drug abuse patient.[facility] HospitalIn the event this information is protected by the Federal Confidentiality of Alcohol and Drug Abuse Patient Records regulations: The Federal rules restrict any use of the information to criminally investigate or prosecute any alcohol or drug abuse patient.[facility] HospitalIn the event this information is protected by the Federal Confidentiality of Alcohol and Drug Abuse Patient Records regulations: The Federal rules restrict any use of the information to criminally investigate or prosecute any alcohol or drug abuse patient.[facility] HospitalIn the event this information is protected by the Federal Confidentiality of Alcohol and Drug Abuse Patient Records regulations: The Federal rules restrict any use of the information to criminally investigate or prosecute any alcohol or drug abuse patient.[facility] HospitalIn the event this information is protected by the Federal Confidentiality of Alcohol and Drug Abuse Patient Records regulations: The Federal rules restrict any use of the information to criminally investigate or prosecute any alcohol or drug abuse patient.[facility] HospitalIn the event this information is protected by the Federal Confidentiality of Alcohol and Drug Abuse Patient Records regulations: The Federal rules restrict any use of the information to criminally investigate or prosecute any alcohol or drug abuse patient.[facility] HospitalIn the event this information is protected by the Federal Confidentiality of Alcohol and Drug Abuse Patient Records regulations: The Federal rules restrict any use of the information to criminally investigate or prosecute any alcohol or drug abuse patient.[facility] HospitalIn the event this information is protected by the Federal Confidentiality of Alcohol and Drug Abuse Patient Records regulations: The Federal rules restrict any use of the information to criminally investigate or prosecute any alcohol or drug abuse patient.[facility] HospitalIn the event this information is protected by the Federal Confidentiality of Alcohol and Drug Abuse Patient Records regulations: The Federal rules restrict any use of the information to criminally investigate or prosecute any alcohol or drug abuse patient.[facility] HospitalIn the event this information is protected by the Federal Confidentiality of Alcohol and Drug Abuse Patient Records regulations: The Federal rules restrict any use of the information to criminally investigate or prosecute any alcohol or drug abuse patient.[facility] HospitalIn the event this information is protected by the Federal Confidentiality of Alcohol and Drug Abuse Patient Records regulations: The Federal rules restrict any use of the information to criminally investigate or prosecute any alcohol or drug abuse patient.[facility] HospitalIn the event this information is protected by the Federal Confidentiality of Alcohol and Drug Abuse Patient Records regulations: The Federal rules restrict any use of the information to criminally investigate or prosecute any alcohol or drug abuse patient.[facility] HospitalIn the event this information is protected by the Federal Confidentiality of Alcohol and Drug Abuse Patient Records regulations: The Federal rules restrict any use of the information to criminally investigate or prosecute any alcohol or drug abuse patient.[facility] HospitalIn the event this information is protected by the Federal Confidentiality of Alcohol and Drug Abuse Patient Records regulations: The Federal rules restrict any use of the information to criminally investigate or prosecute any alcohol or drug abuse patient.[facility] HospitalIn the event this information is protected by the Federal Confidentiality of Alcohol and Drug Abuse Patient Records regulations: The Federal rules restrict any use of the information to criminally investigate or prosecute any alcohol or drug abuse patient.[facility] HospitalIn the event this information is protected by the Federal Confidentiality of Alcohol and Drug Abuse Patient Records regulations: The Federal rules restrict any use of the information to criminally investigate or prosecute any alcohol or drug abuse patient.[facility] HospitalIn the event this information is protected by the Federal Confidentiality of Alcohol and Drug Abuse Patient Records regulations: The Federal rules restrict any use of the information to criminally investigate or prosecute any alcohol or drug abuse patient.[facility] HospitalIn the event this information is protected by the Federal Confidentiality of Alcohol and Drug Abuse Patient Records regulations: The Federal rules restrict any use of the information to criminally investigate or prosecute any alcohol or drug abuse patient.[facility] HospitalIn the event this information is protected by the Federal Confidentiality of Alcohol and Drug Abuse Patient Records regulations: The Federal rules restrict any use of the information to criminally investigate or prosecute any alcohol or drug abuse patient.[facility] HospitalIn the event this information is protected by the Federal Confidentiality of Alcohol and Drug Abuse Patient Records regulations: The Federal rules restrict any use of the information to criminally investigate or prosecute any alcohol or drug abuse patient.[facility] HospitalIn the event this information is protected by the Federal Confidentiality of Alcohol and Drug Abuse Patient Records regulations: The Federal rules restrict any use of the information to criminally investigate or prosecute any alcohol or drug abuse patient.[facility] HospitalIn the event this information is protected by the Federal Confidentiality of Alcohol and Drug Abuse Patient Records regulations: The Federal rules restrict any use of the information to criminally investigate or prosecute any alcohol or drug abuse patient.[facility] HospitalIn the event this information is protected by the Federal Confidentiality of Alcohol and Drug Abuse Patient Records regulations: The Federal rules restrict any use of the information to criminally investigate or prosecute any alcohol or drug abuse patient.[facility] HospitalIn the event this information is protected by the Federal Confidentiality of Alcohol and Drug Abuse Patient Records regulations: The Federal rules restrict any use of the information to criminally investigate or prosecute any alcohol or drug abuse patient.[facility] HospitalIn the event this information is protected by the Federal Confidentiality of Alcohol and Drug Abuse Patient Records regulations: The Federal rules restrict any use of the information to criminally investigate or prosecute any alcohol or drug abuse patient.[facility] HospitalIn the event this information is protected by the Federal Confidentiality of Alcohol and Drug Abuse Patient Records regulations: The Federal rules restrict any use of the information to criminally investigate or prosecute any alcohol or drug abuse patient.[facility] HospitalIn the event this information is protected by the Federal Confidentiality of Alcohol and Drug Abuse Patient Records regulations: The Federal rules restrict any use of the information to criminally investigate or prosecute any alcohol or drug abuse patient.[facility] HospitalIn the event this information is protected by the Federal Confidentiality of Alcohol and Drug Abuse Patient Records regulations: The Federal rules restrict any use of the information to criminally investigate or prosecute any alcohol or drug abuse patient.[facility] HospitalIn the event this information is protected by the Federal Confidentiality of Alcohol and Drug Abuse Patient Records regulations: The Federal rules restrict any use of the information to criminally investigate or prosecute any alcohol or drug abuse patient.[facility] HospitalIn the event this information is protected by the Federal Confidentiality of Alcohol and Drug Abuse Patient Records regulations: The Federal rules restrict any use of the information to criminally investigate or prosecute any alcohol or drug abuse patient.[facility] HospitalIn the event this information is protected by the Federal Confidentiality of Alcohol and Drug Abuse Patient Records regulations: The Federal rules restrict any use of the information to criminally investigate or prosecute any alcohol or drug abuse patient.[facility] HospitalIn the event this information is protected by the Federal Confidentiality of Alcohol and Drug Abuse Patient Records regulations: The Federal rules restrict any use of the information to criminally investigate or prosecute any alcohol or drug abuse patient.[facility] HospitalIn the event this information is protected by the Federal Confidentiality of Alcohol and Drug Abuse Patient Records regulations: The Federal rules restrict any use of the information to criminally investigate or prosecute any alcohol or drug abuse patient.[facility] HospitalIn the event this information is protected by the Federal Confidentiality of Alcohol and Drug Abuse Patient Records regulations: The Federal rules restrict any use of the information to criminally investigate or prosecute any alcohol or drug abuse patient.[facility] HospitalIn the event this information is protected by the Federal Confidentiality of Alcohol and Drug Abuse Patient Records regulations: The Federal rules restrict any use of the information to criminally investigate or prosecute any alcohol or drug abuse patient.[facility] HospitalIn the event this information is protected by the Federal Confidentiality of Alcohol and Drug Abuse Patient Records regulations: The Federal rules restrict any use of the information to criminally investigate or prosecute any alcohol or drug abuse patient.[facility] HospitalIn the event this information is protected by the Federal Confidentiality of Alcohol and Drug Abuse Patient Records regulations: The Federal rules restrict any use of the information to criminally investigate or prosecute any alcohol or drug abuse patient.[facility] HospitalIn the event this information is protected by the Federal Confidentiality of Alcohol and Drug Abuse Patient Records regulations: The Federal rules restrict any use of the information to criminally investigate or prosecute any alcohol or drug abuse patient.[facility] HospitalIn the event this information is protected by the Federal Confidentiality of Alcohol and Drug Abuse Patient Records regulations: The Federal rules restrict any use of the information to criminally investigate or prosecute any alcohol or drug abuse patient.[facility] HospitalIn the event this information is protected by the Federal Confidentiality of Alcohol and Drug Abuse Patient Records regulations: The Federal rules restrict any use of the information to criminally investigate or prosecute any alcohol or drug abuse patient.[facility] Reason for Visit (unrecogniz ed section and content) Reason Comments Radiology CT Specialty Diagnoses / Procedures Referred By Dominga dyson Referred To Contact CT IMAGING Diagnoses Right lower quadrant abdominal pain Procedures CT ABD/PEL W IVCON CT ABD & PELVIS W/CONTRAST Ashwin Apodaca MD [address] [place] [address] Ct Imaging Referral ID Status Reason Start Date Expiration Date V isits Requested Visits Authorized [id number] Closed Auto-Generate d Referral 09/13/2021 10/13/2022 1 [...] NEW HIGH MDM 60-74 MINUTES Older, Delicia, 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 [address] [place] [address] Referral ID Status Reason Start Date Expiration Date Visits Requested Visits Authorized [id number] Pending Review PCP Requested Referral 09/28/2021 09/28/2022 [...] 4 month follow up, s een in [facility] 08/10/22 for vertigo Reason Comments Dizziness Reason Comments F/U 3 Month Reason Onset Date Comments Refill Request 01/23/2023 Reason Comments Established Patient Debridement of Nail Reason Comments Refill Request Specialty Diagnoses / Procedures Referred By Contac t Referred To Contact MR IMAGING Diagnoses Transient cerebral ischemia, unspecified type Procedures MRI BRAIN WO IVCON MRI BRAIN BRAIN STEM W/O CONTRAST MATERIAL Angelica Ledebtter, 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 [address] [place] [address] [place] [address] Referral ID Status Reason Start Date Expiration Date V isits Requested Visits Authorized [id number] Closed Auto-Generate d Referral 08/11/2022 09/10/2023 1 1 Reason Comments Established Patient nail care Reason Comments F/U 6 months Reason Onset Date Comments Population Health Navigation Outreach 11/22/2023 [facility] CURRENT [facility] workbenc - Care gaps, HCC gap closure - [facility] Reason Onset Date Comments Erroneous encounter-disregard 01/22/2024 Reason Onset Date Comments Refill Request 01/29/2024 Reason Onset Date Comments Population Health Navigation Outreach 03/22/2024 [facility] - [facility] Reason Onset Date Comments Refill Request 04/01/2024 Reason Comments Yearly Exam Reason Comments Letter for excuse from jury duty Reason Comments New Patient Evaluation Patient was evalu ated for Parkinson's three years ago by a provider in [facility] since this visit he has a worsening [...] Care Teams (unrecognized sec tion and content) Load Tester Relationship Specialty Start Date End Date Brandon Cantor MD [address] [place] [address] PCP - General 05/04/09 Load Tester Relationship Specialty Start Date End Date Brandon Cantor MD [address] [place] [address] PCP - General 05/04/09 Load Tester Relationship Specialty Start Date End Date Brandon Cantor MD [address] [place] [address] PCP - General 05/04/09 Load Tester Relationship Specialty Start Date End Date Brandon Cantor MD [address] [place] [address] PCP - General 05/04/09 Load Tester Relationship Specialty Start Date End Date Brandon Cantor MD [address] [place] [address] PCP - General 05/04/09 Load Tester Relationship Specialty Start Date End Date Brandon Cantor MD [address] [place] [address] PCP - General 05/04/09 Load Tester Relationship Specialty Start Date End Date Brandon Cantor MD [address] [place] [address] PCP - General 05/04/09 Load Tester Relationship Specialty Start Date End Date Brandon Cantor MD [address] [place] [address] PCP - General 05/04/09 Load Tester Relationship Specialty Start Date End Date Brandon Cantor MD [address] [place] [address] PCP - General 05/04/09 Load Tester Relationship Specialty Start Date End Date Brandon Cantor MD [facility] [place] [address] PCP - General 05/04/09 Load Tester Relationship Specialty Start Date End Date Brandon Cantor MD [address] [place] [address] PCP - General 05/04/09 Load Tester Relationship Specialty Start Date End Date Brandon Cantor MD [address] [place] [address] PCP - General 05/04/09 Load Tester Relationship Specialty Start Date End Date Brandon Cantor MD [address] [place] [address] PCP - General 05/04/09 Load Tester Relationship Specialty Start Date End Date Brandon Cantor MD [address] [place] [address] PCP - General 05/04/09 Load Tester Relationship Specialty Start Date End Date Brandon Cantor MD [address] [place] [address] PCP - General 05/04/09 Load Tester Relationship Specialty Start Date End Date Brandon Cantor MD [address] [place] [address] PCP - General 05/04/09 Team Status: Active [...] Provider, Refer ring Provider Active Ninoska Tyler 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, 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-C Attending Provider Active Team Status: Active Member [...] MD Primary Care Provider Active Ninoska Tyler 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, 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-C Attending Provider Active Team Status: Active Member Role Status Dates Dr. Brandon Cantor MD Primary Care Provider Active Ninoska Tyler 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, 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-C Attending Provider, Referrin g Provider Active Team Status: Inactive Member Role Status Dates Dr. Brandon Cantor MD Primary Care Provider Active Ninoska Tyler 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, 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-C Attending Provider, Referrin g Provider Active Load Tester Relationship Specialty Start Date End Date Brandon Cantor MD [address] [place] [address] PCP - General 05/04/09 Team Status: Inactive Member Role Status Dates Dr. Brandon Cantor MD Primary Care Provider Active Dr. Akin Fox MD Emergency Provider Active Load Tester Relationship Specialty Start Date End Date Brandon Cantor MD [address] [place] [address] PCP - General 05/04/09 Load Tester Relationship Specialty Start Date End Date Brandon Cantor MD [address] [place] [address] PCP - General 05/04/09 Team Status: Inactive Member Role Status Dates Dr. Brandon Cantor MD Primary Care Provider Active Dr. Akin Fox MD Attending Provider, Emergency Provi tequila Active Team Status: Inactive Member Role Status Dates Dr. Brandon Cantor MD Primary Care Provider Active Dr. Marquis Murray MD Attending Provider, Referring Provi tequila Active Load Tester Relationship Specialty Start Date End Date Brandon Cantor MD [address] [place] [address] PCP - General 05/04/09 Load Tester Relationship Specialty Start Date End Date Brandon Cantor MD [address] [place] [address] PCP - General 05/04/09 Team Status: Inactive Member Role Status Dates Dr. Brandon Cantor MD Primary Care Provider Active Dr. Gio Connolly MD Attending Provider, Referr ing Provider Active Team Status: Inactive Member Role Status Dates Dr. Brandon Cantor MD Primary Care Provider Active Dr. James Obrien DO Attending Provider, Referring Provider Active Load Tester Relationship Specialty Start Date End Date Brandon Cantor MD [address] [place] [address] PCP - General 05/04/09 Load Tester Relationship Specialty Start Date End Date Brandon Cantor MD [address] [place] [address] PCP - General 05/04/09 Load Tester Relationship Specialty Start Date End Date Brandon Cantor MD [address] [place] [address] PCP - General 05/04/09 Load Tester Relationship Specialty Start Date End Date Brandon Cantor MD [address] [place] [address] PCP - General 05/04/09 Load Tester Relationship Specialty Start Date End Date Brandon Cantor MD [address] [place] [address] PCP - General 05/04/09 Load Tester Relationship Specialty Start Date End Date Brandon Cantor MD [address] [place], [place] [address] PCP - General 05/04/09 Load Tester Relationship Specialty Start Date End Date Brandon Cantor MD [address] [place] [address] PCP - General 05/04/09 Team Status: Active [...] Dr. Geovanna Parsons MD Attending Provider Active Load Tester Relationship Specialty Start Date End Date Brandon Cantor MD [address] [place], [place] [address] PCP - General 05/04/09 Load Tester Relationship Specialty Start Date End Date Brandon Cantor MD [address] [place] [address] PCP - General 05/04/09 Load Tester Relationship Specialty Start Date End Date Brandon Cantor MD [address] [place] [address] PCP - General 05/04/09 Load Tester Relationship Specialty Start Date End Date Brandon Cantor MD [address] [place] [address] PCP - General 05/04/09 Load Tester Relationship Specialty Start Date End Date Brandon Cantor MD [address] [place] [address] PCP - General 05/04/09 Load Tester Relationship Specialty Start Date End Date Brandon Cantor MD [address] [place] [address] PCP - General 05/04/09 Load Tester Relationship Specialty Start Date End Date Brandon Cantor MD [address] [place] [address] PCP - General 05/04/09 Load Tester Relationship Specialty Start Date End Date Brandon Cantor MD [address] [place] [address] PCP - General 05/04/09 Load Tester Relationship Specialty Start Date End Date Brandon Cantor MD [address] [place] [address] PCP - General 05/04/09 Load Tester Relationship Specialty Start Date End Date Brandon Cantor MD [address] [place] [address] PCP - General 05/04/09 Delicia Anton, 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 [address] [place] [address] Senior Instrumentation Engineer Internal Medicine 05/13/24 Load Tester Relationship Specialty Start Date End Date Brandon Cantor MD [address] [place] [address] PCP - General 05/04/09 Delicia Anton, 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 [address] [facility] [place] [address] Senior Instrumentation Engineer Internal Medicine 05/13/24 Load Tester Relationship Specialty Start Date End Date Brandon Cantor MD [address] [facility] [place] [address] PCP - General 05/04/09 Delicia Anton, 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 [address] [place] [place] [address] Senior Instrumentation Engineer Internal Medicine 05/13/24 Load Tester Relationship Specialty Start Date End Date Brandon Cantor MD [address] [place] [address] PCP - General 05/04/09 Delicia Anton, 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 [address] [place] [address] Senior Instrumentation Engineer Internal Medicine 05/13/24 Load Tester Relationship Specialty Start Date End Date Brandon Cantor MD [address] [place], [place] [address] PCP - General 05/04/09 Delicia Anton, 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 [address] [place], [place] [address] Senior Instrumentation Engineer Internal Medicine 05/13/24 Load Tester Relationship Specialty Start Date End Date Brandon Cantor MD [address] [place], [place] [address] PCP - General 05/04/09 Delicia Anton, 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 [address] [place] [address] Senior Instrumentation Engineer Internal Medicine 05/13/24 Load Tester Relationship Specialty Start Date End Date Brandon Cantor MD [address] [place], [place] [address] PCP - General 05/04/09 Delicia Anton, 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 [address] [place], [place] [address] [facility] Internal Medicine 05/13/24 Team Status: Inactive Member [...] 02, 2024 End: September 02, 2024 Angelica [place] Attending Provider Active Start : September 02, 2024 End: September 02, 2024 Angelica [place] Referring Provider Active Start : September 02, [...] September 10, 2024 End: September 10, 2024 Load Tester Relationship Specialty Start Date End Date Brandon Cantor MD [address] [place], [place] [address] PCP - General 05/04/09 Delicia Anton, 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 [address] [place], [place] [address] [facility] Internal Medicine 05/13/24 Load Tester Relationship Specialty Start Date End Date Brandon Cantor MD [address] [place], [place] [address] PCP - General 05/04/09 Delicia Anton, 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 [address] [place], [place] [address] [facility] Internal Medicine 05/13/24 Load Tester Relationship Specialty Start Date End Date Brandon Cantor MD [address] [facility] [place] [place] [address] PCP - General 05/04/09 Delicia Anton, 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 [address] [facility] [place] [address] Senior Instrumentation Engineer Internal Medicine 05/13/24 Load Tester Relationship Specialty Start Date End Date Brandon Cantor MD [address] [place], [place] [address] PCP - General 05/04/09 Delicia Anton, 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 [address] [place], [place] [address] [facility] Internal Medicine 05/13/24 Load Tester Relationship Specialty Start Date End Date Brandon Cantor MD [address] [place], [place] [address] PCP - General 05/04/09 Delicia Anton, 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 [address] [facility] [place] [address] Senior Instrumentation Engineer Internal Medicine 05/13/24 Load Tester Relationship Specialty Start Date End Date Brandon Cantor MD [address] [place], [place] [address] PCP - General 05/04/09 Delicia Anton, 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 [address] [place], [place] [address] [facility] Internal Medicine 12/9/24 Goals (unrecognized section and [...] BE BASED ON THE PRIMARY CLINICAL RECORDS. [facility]. provides no warranty or guarantee of the accuracy or completeness of information in this document.
== END 2025-01-13 05:27 | disposition home or self-care (01) ==
LOC: ED 05:19
PROVIDERS: Emergency Provider Student in an Organized Health Care Education/Training Program; PCP Internal Medicine; Visit Provider Student in an Organized Health Care Education/Training Program
DX: I10 Essential (primary) hypertension (principal); Z86.711 Personal history of pulmonary embolism; Z87.891 Personal history of nicotine dependence
CPT/HCPCS: 80048; 99282

== ENCOUNTER → 2025-01-27 | Outpatient (CLI) | payer MEDICARE, SELFPAY ==
--- NOTE | 2025-01-27 14:02 | CDU_ITS ---
Reason For Study Reason For Study: Carotid Stenosis Rt. Velocities/BP Lt. Velocities/BP Prox CCA 93/8 cm/sec. Prox CCA 98/8 cm/sec. Mid CCA 111/10 cm/sec. Mid CCA 117/9 cm/sec. Dist CCA 101/7 cm/sec. Dist CCA 101/9 cm/sec. Prox ICA 88/9 cm/sec. Prox ICA 54/11 cm/sec. Mid ICA 79/14 cm/sec. Mid ICA 88/20 cm/sec. Dist ICA 90/17 cm/sec. Dist ICA 104/19 cm/sec. Rt. ICA/CCA = 0.8. Lt. ICA/CCA = 0.9. Prox ECA 165/2 cm/sec. Prox ECA 160/0 cm/sec. Rt. Vert. 65/12 cm/sec. Lt. Vert. 34/3 cm/sec. Right Extracranial There is intimal thickening but no significant atherosclerotic plaque noted in the right common carotid artery. There is heterogeneous, irregular atherosclerotic plaque noted in the right internal carotid artery. The atherosclerotic plaque causes acoustic shadowing. There is heterogeneous, irregular atherosclerotic plaque noted in the right external carotid artery. Antegrade flow is noted in the right vertebral artery. Rt Thyroid appears enlarged and hyper vascular. Left Extracranial There is heterogeneous, irregular atherosclerotic plaque noted in the left common carotid artery. There is heterogeneous, irregular atherosclerotic plaque noted in the left internal carotid artery. The atherosclerotic plaque causes acoustic shadowing. There is intimal thickening but no significant atherosclerotic plaque noted in the left external carotid artery. Antegrade flow is noted in the left vertebral artery. Procedure Carotid Duplex [id number]. This is a Carotid Duplex examination using B-mode, color flow and specral Doppler. Exam performed in department. VL/Carotid Duplex Ultrasound Interpretation Summary Mild (<50%) stenosis right extracranial internal carotid. Mild (<50%) stenosis left extracranial internal carotid. Patent and antegrade vertebrals bilaterally. Ordering Physician: Jaspreet Scruggs Referring Physician: Brandon Cantor Performed By: Jenniffer Wood, TONY, RVT
== END | disposition home or self-care (01) ==
PROVIDERS: PCP Internal Medicine; Referring Provider Surgery Trauma Surgery; Visit Provider Surgery Trauma Surgery
DX: I65.23 Occlusion and stenosis of bilateral carotid arteries (principal)
CPT/HCPCS: 93880

== ENCOUNTER 2025-03-03 13:20 | Observation (INO) | payer MEDICARE, SELFPAY ==
--- OUTSIDE RECORDS SUMMARY | 2025-01-16 14:26 | XMS RPT_ITS ---
Author Name Auto Generated Organization [facility] Care Team Providers Care Section Repairer Name Role Phone BRANDON WILLS Primary Care Unavailable BRANDON WILLS Referring Unavailable WILLSBRANDON TREADWELL Referring Unavailable WILLSBRANDON TREADWELL Primary Care Unavailable BRANDON WILLS Primary Care Unavailable BRANDON WILLS Attending Unavailable BRANDON WILLS Primary Care Unavailable BRANDON WILLS Attending Unavailable TESTRAKE, DEBRA Referring Unavailable TESTRAKE, DEBRA Attending Unavailable BRANDON WILLS Primary Care Unavailable WILLSBRANDON TREADWELL Primary Care Unavailable PEARSONCHRIS CAPONE Attending Unavailable BRANDON WILLS Primary Care Unavailable TESTRAKE, DEBRA Attending Unavailable TESTRAKE, DEBRA Referring Unavailable BRANDON WILLS Primary Care Unavailable BRANDON WILLS Attending Unavailable BRANDON WILLS Primary Care Unavailable BRANDON WILLS Referring Unavailable BRANDON WILLS Attending Unavailable BRANDON WILLS Primary Care Unavailable WILLSBRANDON TREADWELL Referring Unavailable WILLSBRANDON TREADWELL Primary Care Unavailable PEARSONCHRIS CAPONE Attending Unavailable BRANDON WILLS Primary Care Unavailable TESTRAKE, DEBRA Referring Unavailable TESTRAKE, DEBRA Attending Unavailable BRANDON WILLS Primary Care Unavailable BRANDON WILLS Attending Unavailable TESTRAKE, DEBRA Referring Unavailable WILLS, BRANDON Tejeda Primary Care Unavailable TESTRAKE, DEBRA Referring Unavailable TESTRAKE, DEBRA Attending Unavailable BRANDON WILLS Primary Care Unavailable DOUGLAS MORTENSEN Referring Unavailable DOUGLAS MORTENSEN Attending Unavailable BRANDON WILLS Primary Care Unavailable PEARSONCHRIS CAPONE Attending Unavailable WILLSBRANDON TREADWELL Primary Care Unavailable WILLSBRANDON TREADWELL Attending Unavailable PROBLEMS DATE TYPE CONDITION / CODE ATTENDING STATUS [facility] 05[facility]19[facility]23 [facility], unspecified thyrotoxicosis type / E05.90(ICD-10) BRANDON WILLS Active [facility] 11/04/2022 Active Platelets decrea sed / D69.6(ICD-10) BRANDON WILLS Active [facility] 01/30/2018 Active Acquired polycyt hemia / D75.1(ICD-10) BRANDON WILLS Active [facility] 10/09/2014 Active Hyperlipidemia L DL goal <100 / E78.5(ICD-10) BRANDON WILLS Active [facility] 12/20/2024 Active Abnormality of g ait / R26.9(ICD-10) CHRIS PEARSON Active [facility] 12/20/2024 Active Lightheaded / R42(ICD-10) CHRIS PEARSON Active [facility] 12/20/2024 Active Bradycardia / R00.1(ICD-10) CHRIS PEARSON Active [facility] 12/13/2024 Active Onychomycosis / B35.1(ICD-10) DEBRA DERAS Active [facility] 12/13/2024 Active Pain in toe of l eft foot / M79.675(ICD-10) DEBRA DERAS Active [facility] 12/13/2024 Active Pain in toe of r ight foot / M79.674(ICD-10) DEBRA DERAS Active [facility] 12/13/2024 Active Callus of foot / L84(ICD-10) DEBRA DERAS Active [facility] 11/15/2024 Active Bradyarrhythmia / I49.8(ICD-10) BRANDON WILLS Active [facility] 07/04/2019 Active Anxiety / F41.9(ICD-10) BRANDON LONGORIA Active [facility] 11/15/2024 Active Dizziness / R42(ICD-10) BRANDON LONGORIA Active [facility] 11/15/2024 Active Nausea without v omiting / R11.0(ICD-10) BRANDON WILLS Active [facility] 11/17/2021 Active Parkinson's dise ase, unspecified whether dyskinesia present, unspecified whether manifestations fluctuate (HCC) / G20.A1(ICD-10) BRANDON WILLS Active [facility] 08/24/2020 Active Coronary artery disease of [place] artery of [place] heart with stable angina pectoris / I25.118(ICD-10) BRANDON WILLS Active [facility] 01/09/2015 Active Primary hyperten hira / I10(ICD-10) BRANDON WILLS Active [facility] 10/18/2024 Active Near syncope / R55(ICD-10) BRANDON WILLS Active [facility] 09/27/2024 Active Abnormal CXR / R93.89(ICD-10) NA Active [facility] 05/19/2023 Active Stage 3a chronic kidney disease (HCC) / N18.31(ICD-10) NA Active [facility] 05/17/2024 Active Insomnia, unspec ified type / G47.00(ICD-10) BRANDON WILLS Active [facility] PROCEDURES No Procedure Records Found RESULTS PROGRESS Observed: 01/16/2025 3:08 PM Status: COMPLETED Source: [facility] HNO ID: [id number] Author: BRANDON WILLS MD Service: ? Author Type: Physician Type: Progress Notes Filed: 01/16/2025 15:40 Note Text: Mariann Hernandes Jr. is a 79 year old male. His hypertension was controlled, and bradycardia resolved. He was tolerating amlodipine. 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 amLODIPine (NORVASC) 2.5 mg tablet Take 1 tablet by mouth once daily. potassium chloride SR (MICRO-K) 10 mEq CR capsule Take 1 capsule by mouth two times a day. PARoxetine (PAXIL) 20 mg tablet Take 1 tablet by mouth once daily. carbidopa-levodopa CR (SINEMET CR) 50-200 mg per tablet Take 1 tab at 8AM and 1 tab at 9PM nightly. carbidopa-levodopa (SINEMET) 25-100 mg per tablet Take 2 tablets at 8AM, Noon and 4PM. aspirin 81 mg cap Take 81 mg by mouth once daily. pantoprazole DR (PROTONIX) 40 mg tablet Take 40 mg by mouth once daily. cholestyramine/aspartame (CHOLESTYRAMINE LIGHT ORAL) Take by mouth once daily. ketoconazole (NIZORAL) 2 % shampoo Apply to affected area two times a week. Per [facility]. PRN methIMAzole (TAPAZOLE) 5 mg tablet Take 1 tablet by mouth once daily. atorvastatin (LIPITOR) 20 mg tablet Take 1 tablet by mouth daily at bedtime. For cholesterol. isosorbide mononitrate ER (IMDUR) 30 mg 24 hr tablet Take 1 tablet by mouth once daily. tamsulosin (FLOMAX) 0.4 mg Take 0.4 mg by mouth once daily. No current facility-administered medications for this visit. Review of Systems Constitutional: Negative for fatigue. Respiratory: Negative for shortness of breath. Cardiovascular: Negative for palpitations. Neurological: Negative for dizziness and light-headedness. Objective BP 118/65 (BP Site: Left Arm, BP Position: Sitting, BP Cuff Size: Large Adult) Pulse 70 Wt 86 kg (189 lb 9.5 oz) BMI 28.00 kg/m? Physical Exam Constitutional: General: He is not in acute distress. Appearance: He is not ill-appearing. Cardiovascular: Rate and Rhythm: Normal rate and regular rhythm. Heart sounds: S1 normal and S2 normal. No murmur heard. Musculoskeletal: Right lower leg: No edema. Left lower leg: No edema. Neurological: General: No focal deficit present. Mental Status: He is alert. Motor: Tremor present. Gait: Gait abnormal. Comments: Using a cane. ASSESSMENT/PLAN: 1. Platelets decreased - ICD9: 287.5, ICD10: D69.6 (primary diagnosis) Monitor. - COMPLETE BLOOD COUNT 2. 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 - ATORVASTATIN 20 MG TABLET - ISOSORBIDE MONONITRATE ER 30 MG TABLET,EXTENDED RELEASE 24 HR 3. Hyperlipidemia LDL goal <100 - ICD9: 272.4, ICD10: E78.5 - Control undetermined, due for labs - Continue current medications - Counseled on healthy diet and regular exercise - ATORVASTATIN 20 MG TABLET - COMPREHENSIVE METABOLIC PANEL - LIPID PANEL, FASTING 4. 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 Continue medication. - METHIMAZOLE 5 MG TABLET - THYROID STIMULATING HORMONE - T4 FREE/FREE THYROXINE 5. Acquired polycythemia - ICD9: 289.0, ICD10: D75.1 Monitored. - COMPLETE BLOOD COUNT 6. Stage 3a chronic kidney disease (HCC) - ICD9: 585.3, ICD10: N18.31 - eGFR: 60 Stable - Counseled on avoiding NSAIDs, adequate hydration 7. Primary hypertension - ICD9: 401.9, ICD10: I10 - Controlled - Continue current medications Brandon Wills MD CNOV Observed: 01/16/2025 2:40 PM Status: COMPLETED Source: [facility] Office Visit (INTMWS) ROHAN HERNANDES JR. ([id number]) 1945 M Date Time Provider Department 01/16/25 2:40 PM BRANDON WILLS INTNadiyaWS During your visit today, we recorded the following information about you: Pulse Blood pressure Weight 70/minute 118/65 86 kg Brandon Wills MD 01/16/2025 3:40 PM Signed Subjective Rohan W Corwin Jr. is a 79 year old male. His hypertension was controlled, and bradycardia resolved. He was tolerating amlodipine. 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 amLODIPine (NORVASC) 2.5 mg tablet Take 1 tablet by mouth once daily. potassium chloride SR (MICRO-K) 10 mEq CR capsule Take 1 capsule by mouth two times a day. PARoxetine (PAXIL) 20 mg tablet Take 1 tablet by mouth once daily. carbidopa-levodopa CR (SINEMET CR) 50-200 mg per tablet Take 1 tab at 8AM and 1 tab at 9PM nightly. carbidopa-levodopa (SINEMET) 25-100 mg per tablet Take 2 tablets at 8AM, Noon and 4PM. aspirin 81 mg cap Take 81 mg by mouth once daily. pantoprazole DR (PROTONIX) 40 mg tablet Take 40 mg by mouth once daily. cholestyramine/aspartame (CHOLESTYRAMINE LIGHT ORAL) Take by mouth once daily. ketoconazole (NIZORAL) 2 % shampoo Apply to affected area two times a week. Per [facility]. PRN methIMAzole (TAPAZOLE) 5 mg tablet Take 1 tablet by mouth once daily. atorvastatin (LIPITOR) 20 mg tablet Take 1 tablet by mouth daily at bedtime. For cholesterol. isosorbide mononitrate ER (IMDUR) 30 mg 24 hr tablet Take 1 tablet by mouth once daily. tamsulosin (FLOMAX) 0.4 mg Take 0.4 mg by mouth once daily. No current facility-administered medications for this visit. Review of Systems Constitutional: Negative for fatigue. Respiratory: Negative for shortness of breath. Cardiovascular: Negative for palpitations. Neurological: Negative for dizziness and light-headedness. Objective BP 118/65 (BP Site: Left Arm, BP Position: Sitting, BP Cuff Size: Large Adult) Pulse 70 Wt 86 kg (189 lb 9.5 oz) BMI 28.00 kg/m? Physical Exam Constitutional: General: He is not in acute distress. Appearance: He is not ill-appearing. Cardiovascular: Rate and Rhythm: Normal rate and regular rhythm. Heart sounds: S1 normal and S2 normal. No murmur heard. Musculoskeletal: Right lower leg: No edema. Left lower leg: No edema. Neurological: General: No focal deficit present. Mental Status: He is alert. Motor: Tremor present. Gait: Gait abnormal. Comments: Using a cane. ASSESSMENT/PLAN: 1. Platelets decreased - ICD9: 287.5, ICD10: D69.6 (primary diagnosis) Monitor. - COMPLETE BLOOD COUNT 2. 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 - ATORVASTATIN 20 MG TABLET - ISOSORBIDE MONONITRATE ER 30 MG TABLET,EXTENDED RELEASE 24 HR 3. Hyperlipidemia LDL goal <100 - ICD9: 272.4, ICD10: E78.5 - Control undetermined, due for labs - Continue current medications - Counseled on healthy diet and regular exercise - ATORVASTATIN 20 MG TABLET - COMPREHENSIVE METABOLIC PANEL - LIPID PANEL, FASTING 4. 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 Continue medication. - METHIMAZOLE 5 MG TABLET - THYROID STIMULATING HORMONE - T4 FREE/FREE THYROXINE 5. Acquired polycythemia - ICD9: 289.0, ICD10: D75.1 Monitored. - COMPLETE BLOOD COUNT 6. Stage 3a chronic kidney disease (HCC) - ICD9: 585.3, ICD10: N18.31 - eGFR: 60 Stable - Counseled on avoiding NSAIDs, adequate hydration 7. Primary hypertension - ICD9: 401.9, ICD10: I10 - Controlled - Continue current medications Brandon Wills MD Referring Provider: BRANDON WILLS [[id number]] Allergies As of Date: 01/16/2025 (No Known Allergies) Date Reviewed: 01/16/2025 Reviewed by: Renea Caraballo LPN - Fully Assessed Reason for Visit: 2 month follow-up [Other] Primary Visit Diagnosis:Platelets decreased [D69.6] Other Visit Diagnoses:Coronary artery disease of [place] artery of [place] heart with stable angina pectoris [I25.118] Hyperlipidemia LDL goal <100 [E78.5] Thyrotoxicosis without thyroid storm, unspecified thyrotoxicosis type [E05.90] Acquired polycythemia [D75.1] Stage 3a chronic kidney disease (HCC) [N18.31] Primary hypertension [I10] Order(s):methIMAzole (TAPAZOLE) 5 mg tabletTake 1 tablet by mouth once daily.Disp: 90 tabletRfl: 3 atorvastatin (LIPITOR) 20 mg tabletTake 1 tablet by mouth daily at bedtime. For cholesterol.Disp: 90 tabletRfl: 3 isosorbide mononitrate ER (IMDUR) 30 mg 24 hr tabletTake 1 tablet by mouth once daily.Disp: 90 tabletRfl: 3 COMPLETE BLOOD COUNT [SQCBC] Order #: [id number] FUTURE COMPREHENSIVE METABOLIC PANEL [SQCMP] Order #: [id number] FUTURE LIPID PANEL, FASTING [SQLIPB] Order #: [id number] FUTURE THYROID STIMULATING HORMONE [SQTSH] Order #: [id number] FUTURE T4 FREE/FREE THYROXINE [SQFT4] Order #: [id number] FUTURE Prescriptions as of 01/16/2025 - methIMAzole (TAPAZOLE) 5 mg tablet Take 1 tablet by mouth once daily. - atorvastatin (LIPITOR) 20 mg tablet Take 1 tablet by mouth daily at bedtime. For cholesterol. - isosorbide mononitrate ER (IMDUR) 30 mg 24 hr tablet Take 1 tablet by mouth once daily. - LORazepam (ATIVAN) 1 mg tablet Take 1 tablet by mouth at bedtime as needed for anxiety for up to 90 days. - amLODIPine (NORVASC) 2.5 mg tablet Take 1 tablet by mouth once daily. - potassium chloride SR (MICRO-K) 10 mEq CR capsule Take 1 capsule by mouth two times a day. - PARoxetine (PAXIL) 20 mg tablet Take 1 tablet by mouth once daily. - carbidopa-levodopa CR (SINEMET CR) 50-200 mg per tablet Take 1 tab at 8AM and 1 tab at 9PM nightly. - carbidopa-levodopa (SINEMET) 25-100 mg per tablet Take 2 tablets at 8AM, Noon and 4PM. - aspirin 81 mg cap Take 81 mg by mouth once daily. - pantoprazole DR (PROTONIX) 40 mg tablet Take 40 mg by mouth once daily. - cholestyramine/aspartame (CHOLESTYRAMINE LIGHT ORAL) Take by mouth once daily. - ketoconazole (NIZORAL) 2 % shampoo Apply to affected area two times a week. Per [facility]. PRN - tamsulosin (FLOMAX) 0.4 mg Take 0.4 mg by mouth once daily. Problem List As Of Date 01/16/2025 Noted Resolved Hypertension [I10] 05/04/2009 Anxiety [F41.9] [...] [R07.89] 08/10/2020 09/14/2020 Coronary artery disease of [place] artery of emigdio*08/24/2020 Unsteady gait [R26.81] 02/15/2021 [...] cell cancer [Z85.528] 05/17/2024 Bradyarrhythmia [I49.8] 11/15/2024 Prescriptions ordered this encounter Disp Refills Start End METHIMAZOLE 5 MG TABLET 90 t* 3 01/16/2025 Route: PO Sig: Take 1 tablet by mouth once daily. ATORVASTATIN 20 MG TABLET 90 t* 3 01/16/2025 Route: PO Sig: Take 1 tablet by mouth daily at bedtime. For cholesterol. ISOSORBIDE MONONITRATE ER 30 MG TABL* 90 t* 3 01/16/2025 Route: PO Sig: Take 1 tablet by mouth once daily. Medications Discontinued During This Encounter Prescriptions - atorvastatin (LIPITOR) 20 mg tablet (Discontinued) Take 1 tablet by mouth daily at bedtime. For cholesterol. - isosorbide mononitrate ER (IMDUR) 30 mg 24 hr tablet (Discontinued) Take 1 tablet by mouth once daily. - methIMAzole (TAPAZOLE) 5 mg tablet (Discontinued) Take 1 tablet by mouth once daily. Level of Service: OFFICE/OUTPATIENT ESTABLISHED LOW [facility] 20 MIN [[id number]] Additional E/M codes: VISIT CPLX INHERENT EANDM ASSOC WITH MED * Disposition: Return in about 4 months (around 05/19/2025). Follow-up and Disposition History for Encounter Date Provider Department Center 01/16/2025 [id number] WILLS INTMWS [facility] Encounter Status:Closed by BRANDON WILLS on 01/16/25 PROGRESS Observed: 01/13/2025 2:26 PM Status: [id number] Author: BRANDON WILLS MD Service: ? Author Type: Physician Type: Progress Notes Filed: 01/13/2025 14:55 Note Text: Mariann Hernandes Jr. is a 79 year old male. Patient presents with: ER F/U He had been monitoring his blood pressure, and noted high readings yesterday (160-170 systolic. He observed his blood pressure and went to the ER early this morning, when he got to 200 systolic. He had no symptoms. He was treated in the ER with oral metoprolol and lorazepam. We discontinued metoprolol in November due to dizziness and bradycardia. 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 Per [facility]. PRN tamsulosin (FLOMAX) 0.4 mg Take 0.4 mg by mouth once daily. No current facility-administered medications for this visit. Review of Systems Constitutional: Negative for fatigue. Respiratory: Negative for shortness of breath. Cardiovascular: Negative for chest pain and palpitations. Neurological: Negative for dizziness and light-headedness. Objective BP 105/53 (BP Site: Left Arm, BP Position: Sitting, BP Cuff Size: Large Adult) Pulse (!) 52 Wt 86 kg (189 lb 9.5 oz) BMI 28.00 kg/m? Patient's BP monitor 112/52 P 54 Physical Exam Constitutional: Appearance: He is not ill-appearing. Cardiovascular: Rate and Rhythm: Regular rhythm. Bradycardia present. Heart sounds: S1 normal and S2 normal. Pulmonary: Breath sounds: Normal breath sounds. Musculoskeletal: Right lower leg: No edema. Left lower leg: No edema. Neurological: Gait: Gait abnormal. ER report reviewed. ASSESSMENT/PLAN: 1. Primary hypertension - ICD9: 401.9, ICD10: I10 (primary diagnosis) - Worsening control - Start amlodipine - Recommend home blood pressure monitoring, to bring results to next visit - Reviewed risks of hypertension and principles of treatment - AMLODIPINE 2.5 MG TABLET - POTASSIUM CHLORIDE ER 10 MEQ CAPSULE,EXTENDED RELEASE Discussed medication dosage, usage, goals of therapy, and side effects. 2. Anxiety - ICD9: 300.00, ICD10: F41.9 Stable. Refilled. - LORAZEPAM 1 MG TABLET Brandon Wills MD CNOV Observed: 01/13/2025 2:00 PM Status: COMPLETED Source: [facility] Office Visit (INTMWS) ROHAN HERNANDES JR. ([id number]) 1945 M Date Time Provider Department 01/13/25 2:00 PM BRANDON WILLS INTMWS During your visit today, we recorded the following information about you: Pulse Blood pressure Weight 52/minute 105/53 86 kg Brandon Wills MD 01/13/2025 2:55 PM Signed Subjective Rohan Hernandes Jr. is a 79 year old male. Patient presents with: ER F/U He had been monitoring his blood pressure, and noted high readings yesterday (160-170 systolic. He observed his blood pressure and went to the ER early this morning, when he got to 200 systolic. He had no symptoms. He was treated in the ER with oral metoprolol and lorazepam. We discontinued metoprolol in November due to dizziness and bradycardia. 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 Per [facility]. PRN tamsulosin (FLOMAX) 0.4 mg Take 0.4 mg by mouth once daily. No current facility-administered medications for this visit. Review of Systems Constitutional: Negative for fatigue. Respiratory: Negative for shortness of breath. Cardiovascular: Negative for chest pain and palpitations. Neurological: Negative for dizziness and light-headedness. Objective BP 105/53 (BP Site: Left Arm, BP Position: Sitting, BP Cuff Size: Large Adult) Pulse (!) 52 Wt 86 kg (189 lb 9.5 oz) BMI 28.00 kg/m? Patient's BP monitor 112/52 P 54 Physical Exam Constitutional: Appearance: He is not ill-appearing. Cardiovascular: Rate and Rhythm: Regular rhythm. Bradycardia present. Heart sounds: S1 normal and S2 normal. Pulmonary: Breath sounds: Normal breath sounds. Musculoskeletal: Right lower leg: No edema. Left lower leg: No edema. Neurological: Gait: Gait abnormal. ER report reviewed. ASSESSMENT/PLAN: 1. Primary hypertension - ICD9: 401.9, ICD10: I10 (primary diagnosis) - Worsening control - Start amlodipine - Recommend home blood pressure monitoring, to bring results to next visit - Reviewed risks of hypertension and principles of treatment - AMLODIPINE 2.5 MG TABLET - POTASSIUM CHLORIDE ER 10 MEQ CAPSULE,EXTENDED RELEASE Discussed medication dosage, usage, goals of therapy, and side effects. 2. Anxiety - ICD9: 300.00, ICD10: F41.9 Stable. Refilled. - LORAZEPAM 1 MG TABLET Brandon Wills MD Allergies As of Date: 01/13/2025 (No Known Allergies) Date Reviewed: 01/13/2025 Reviewed by: Renea Caraballo LPN - Fully Assessed Reason for Visit: ER F/U [41] Primary Visit Diagnosis:Primary hypertension [I10] Other Visit Diagnosis:Anxiety [F41.9] Order(s):LORazepam (ATIVAN) 1 mg tabletTake 1 tablet by mouth at bedtime as needed for anxiety for up to 90 days.Disp: 30 tabletRfl: 0 amLODIPine (NORVASC) 2.5 mg tabletTake 1 tablet by mouth once daily.Disp: 30 tabletRfl: 2 potassium chloride SR (MICRO-K) 10 mEq CR capsuleTake 1 capsule by mouth two times a day.Disp: 180 capsuleRfl: 3 Prescriptions as of 01/13/2025 - LORazepam (ATIVAN) 1 mg tablet Take 1 tablet by mouth at bedtime as needed for anxiety for up to 90 days. - amLODIPine (NORVASC) 2.5 mg tablet Take 1 tablet by mouth once daily. - potassium chloride SR (MICRO-K) 10 mEq CR capsule Take 1 capsule by mouth two times a day. - PARoxetine (PAXIL) 20 mg tablet Take 1 tablet by mouth once daily. - carbidopa-levodopa CR (SINEMET CR) 50-200 mg per tablet Take 1 tab at 8AM and 1 tab at 9PM nightly. - carbidopa-levodopa (SINEMET) 25-100 mg per tablet Take 2 tablets at 8AM, Noon and 4PM. - methIMAzole (TAPAZOLE) 5 mg tablet Take 1 tablet by mouth once daily. - aspirin 81 mg cap Take 81 [...] area two times a week. Per [facility]. PRN - tamsulosin (FLOMAX) 0.4 mg Take 0.4 mg by mouth once daily. Problem List As Of Date 01/13/2025 Noted Resolved Hypertension [I10] 05/04/2009 Anxiety [F41.9] [...] [R07.89] 08/10/2020 09/14/2020 Coronary artery disease of sob[place] artery of emigdio*08/24/2020 Unsteady gait [R26.81] 02/15/2021 [...] cell cancer [Z85.528] 05/17/2024 Bradyarrhythmia [I49.8] 11/15/2024 Prescriptions ordered this encounter Disp Refills Start End LORAZEPAM 1 MG TABLET 30 t* 0 01/13/2025 04/13/2025 Route: PO Sig: Take 1 tablet by mouth at bedtime as needed for anxiety for up to 90 days. AMLODIPINE 2.5 MG TABLET 30 t* 2 01/13/2025 Route: PO Sig: Take 1 tablet by mouth once daily. POTASSIUM CHLORIDE ER 10 MEQ CAPSULE* 180 * 3 01/13/2025 Route: PO Sig: Take 1 capsule by mouth two times a day. Medications Discontinued During This Encounter Prescriptions - LORazepam (ATIVAN) 1 mg tablet (Discontinued) Take 1 tablet by mouth at bedtime as needed for anxiety for up to 90 days. - potassium chloride SR (MICRO-K) 10 mEq CR capsule (Discontinued) Take 1 capsule by mouth two times a day. Level of Service: OFFICE/OUTPATIENT ESTABLISHED MOD [facility] 30 MIN [14388] Additional E/M codes: VISIT CPLX INHERENT EANDM ASSOC WITH MED * Encounter Status:Closed by BRANDON WILLS on 01/13/25 CNPN Observed: 01/13/2025 12:00 AM Status: COMPLETED Source: [facility] Telephone (INTMWS) ROHAN HERNANDES JR. ([id number]) 1945 M Date Time Provider Department 01/13/25 BRANDON WILLS INTMWS During your visit today, we recorded the following information about you: Lavell Acevedo RN 01/13/2025 12:42 PM Signed Patient calls to request an appointment. He was to [facility] ER last evening/early am for HTN. Patient reports that he was given something for BP and anxiety. BP continues to be in the 190/80 range and patient wasn't sent home on any medications. Patient was also told not to check BP as frequently but to limit it to twice daily. Patient concerned that BP is going to continue to go up. Same day appt scheduled. Patient to bring BP cuff to visit to verify accuracy as well. Lavell Acevedo RN Allergies As of Date: 01/13/2025 (No Known Allergies) Date Reviewed: 12/20/2024 Reviewed by: Chris Pearson Jr., MD - Fully Assessed Reason for Visit: Patient Update [1234] Prescriptions as of 01/13/2025 - PARoxetine (PAXIL) 20 mg tablet Take [...] area two times a week. Per [facility] PRN - tamsulosin (FLOMAX) 0.4 mg Take 0.4 mg by mouth once daily. Problem List As Of Date 01/13/2025 Noted Resolved Hypertension [I10] 05/04/2009 Anxiety [F41.9] [...] [R07.89] 08/10/2020 09/14/2020 Coronary artery disease of soboba artery of emigdio*08/24/2020 Unsteady gait [R26.81] 02/15/2021 [...] 05/17/2024 Bradyarrhythmia [I49.8] 11/15/2024 Encounter Status:Closed by LAVELL ACEVEDO on 01/13/25 PROGRESS Observed: 12/20/2024 1:05 PM Status: COMPLETED Source: [facility] HNO ID: [id number] Author: CHRIS PEARSON JR, MD Service: ? Author Type: Physician Type: Progress Notes Filed: 12/20/2024 13:55 Note Text: ESTABLISHED PATIENT VISIT CHIEF COMPLAINT: Follow Up HISTORY OF PRESENT ILLNESS: Rohan Hernandes Jr. is a 79 year old male, [...] area two times a week. Per [facility] 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 [facility] 08/20/2020. Other pulmonary embolism with acute cor pulmonale (HCC) 01/30/2018 fall, right hip fracture, right total hip Other pulmonary embolism with acute cor pulmonale (HCC) Panic attacks 2001 previously on Xanax Parkinson's disease (HCC) 11/17/2021 Pulmonary hypertension (HCC) 01/30/2018 Renal cell cancer, left ([facility]) 05/05/2022 Seborrheic keratosis 06/19/2009 Stage 3a chronic kidney disease (HCC) 05/19/2023 Thyrotoxicosis without thyroid storm 11/17/2021 FAMILY HISTORY Problem Relation Age of Onset Psychiatry Mother Anxiety COPD Mother Heart Mother Heart failure, age 94 other (Other) Mother Parkinson's Cancer Father lung cancer, age 86 Psychiatry Sister Panic attacks Emphysema Maternal Grandfather 50 years working on [employer], Mobile Secretary, coal smoke inhalation. Asthma Maternal Grandfather Colon [...] lb 3.2 oz) SpO2 96% BMI 28.09 kg/m? GENERAL EXAM: General appearance: NAD, pleasant. HEENT: [...] which included preparing to see the patient, [id number] patient care, completing clinical documentation, obtaining and/or reviewing separately obtained history, performing a medically appropriate examination, counseling and educating the patient/family/caregiver, ordering medications, tests, or procedures, and communicating results to the patient/family/caregiver. CNOV Observed: 12/20/2024 1:00 PM Status: COMPLETED Source: [facility] Office Visit (ERIK) ROHAN HERNANDES JR. ([id number]) 1945 M Date Time Provider Department 12/20/24 1:00 PM CHRIS PEARSON JR During your visit today, we recorded the following information about you: Pulse Respiration Blood pressure Weight 73/minute 16/minute 110/64 86.3 kg Chris Pearson Jr., MD 12/20/2024 1:55 PM Signed ESTABLISHED PATIENT VISIT CHIEF COMPLAINT: Follow Up HISTORY OF PRESENT ILLNESS: Rohan Hernandes Jr. is a 79 year old male, [...] area two times a week. Per [facility] 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 [facility] 08/20/2020. Other pulmonary embolism with acute cor pulmonale ([facility]) 01/30/2018 fall, right hip fracture, right total hip Other pulmonary embolism with acute cor pulmonale ([facility]) Panic attacks 2000 previously on Xanax Parkinson's disease ([facility]) 11/17/2021 Pulmonary hypertension ([facility]) 01/30/2018 Renal cell cancer, left ([facility]) 05/05/2022 Seborrheic keratosis 06/19/2009 Stage 3a chronic kidney disease ([facility]) 05/19/2023 Thyrotoxicosis without thyroid storm 11/17/2021 FAMILY HISTORY Problem Relation Age of Onset Psychiatry Mother Anxiety COPD Mother Heart Mother Heart failure, age 94 other (Other) Mother Parkinson's Cancer Father lung cancer, age 86 Psychiatry Sister Panic attacks Emphysema Maternal Grandfather 50 years working on [employer], Mobile Secretary, coal smoke inhalation. Asthma Maternal Grandfather Colon [...] lb 3.2 oz) SpO2 96% BMI 28.09 kg/m? GENERAL EXAM: General appearance: NAD, pleasant. HEENT: [...] which included preparing to see the patient, [id number] patient care, completing clinical documentation, obtaining and/or reviewing separately obtained history, performing a medically appropriate examination, counseling and educating the patient/family/caregiver, ordering medications, tests, or procedures, and communicating results to the patient/family/caregiver. Chris Pearson Jr., MD 12/20/2024 1:32 PM Signed CHANGE IN MEDS: Short acting Carbidopa/Levodopa - currently you are taking 2 tablet three times per day. Please reduce this dose to 1.5 tablet three times per day to see if dizziness improves. Also recommend checking your HR and BP at least once daily during this week. Please send us a Photowhoa message next week to let us know how you are doing. If no change, will likely increase the dose back to 2 tablets. Allergies As of Date: 12/20/2024 (No Known Allergies) Date Reviewed: 12/20/2024 Reviewed by: Chris Pearson Jr., MD - Fully Assessed Reason for Visit: Follow Up [171] Cmt: [facility] 08/16/24 Primary Visit Diagnosis:Parkinson's disease, unspecified whether dyskinesia present, unspecified whether manifestations fluctuate (HCC) [G20.A1] Other Visit Diagnoses:Abnormality of gait [R26.9] Lightheaded [R42] Bradycardia [R00.1] Prescriptions as of 12/20/2024 - PARoxetine (PAXIL) 20 mg tablet Take [...] area two times a week. Per [facility] PRN - tamsulosin (FLOMAX) 0.4 mg Take 0.4 mg by mouth once daily. Problem List As Of Date 12/20/2024 Noted Resolved Hypertension [I10] 05/04/2009 Anxiety [F41.9] [...] [R07.89] 08/10/2020 09/14/2020 Coronary artery disease of soboba artery of emigdio*08/24/2020 Unsteady gait [R26.81] 02/15/2021 [...] cell cancer [Z85.528] 05/17/2024 Bradyarrhythmia [I49.8] 11/15/2024 Other instructions from your clinician: CHANGE IN MEDS: Short acting Carbidopa/Levodopa - currently you are taking 2 tablet three times per day. Please reduce this dose to 1.5 tablet three times per day to see if dizziness improves. Also recommend checking your HR and BP at least once daily during this week. Please send us a Phot[employer] message next week to let us know how you are doing. If no change, will likely increase the dose back to 2 tablets. Disposition: Return in about 3 months (around 03/22/2025). Follow-up and Disposition History for Encounter Date Provider Department Center 12/20/2024 [id number] PEARSON JR ERIK Mcarthur [facility] Encounter Status:Closed by CHRIS PEARSNO on 12/20/24 PROGRESS Observed: 12/13/2024 3:31 PM Status: COMPLETED Source: [facility] HNO ID: [id number] Author: DEBRA DERAS, ? Service: ? Author Type: Physician Type: [...] is to RTC in 3-4 months. Debra Deras DPM CNOV Observed: 12/13/2024 3:20 PM Status: COMPLETED Source: [facility] Office Visit (PODIWS) ROHAN HERNANDES JR. ([id number]) 1945 M Date Time Provider Department 12/13/24 3:20 PM DBERA DERAS PODIWS During your visit today, we recorded [...] Objective: Patient presents to clinic ambulating in [facility] Vasc: DP and PT pulses are palpable [...] is to RTC in 3-4 months. Debra Deras DPM Referring Provider: DEBRA DERAS [[id number]] Allergies As of Date: 12/13/2024 (No Known [...] area two times a week. Per [facility] PRN - tamsulosin (FLOMAX) 0.4 mg [...] [R07.89] 08/10/2020 09/14/2020 Coronary artery disease of soboba artery of emigdio*08/24/2020 Unsteady gait [R26.81] 02/15/2021 [...] 05/17/2024 Bradyarrhythmia [I49.8] 11/15/2024 Encounter Status:Closed by DEBRA DERAS DPM on 12/14/24 PROGRESS Observed: 12/13/2024 3:12 PM Status: COMPLETED Source: [facility] HNO ID: [id number] Author: SUSANA GONSALEZ LPN Service: ? Author [...] Established Patient, Follow Up, nail care, Callous Susana Gonsalez LPN CNPN Observed: 11/18/2024 12:00 AM Status: COMPLETED Source: [facility] Telephone (CARDWS) ROHAN HERNANDES JR. ([id number]) 1945 M Date Time Provider Department 11/18/24 BRANDON WILLS During your visit today, we recorded the following information about you: Lynette Robles LPN 11/18/2024 11:34 AM Signed Patient called into office speaking with PSS about getting a appointment sooner with . He stated that you recommended a sooner appointment than Renitaebberry with . Please review and advise further VALENTE Ansari Victor H, MD 11/20/2024 1:16 PM Signed I have reached out to Dr. Mortensen about Mr. Hernandes. Please assist scheduling cardiology follow up soon (I.e. 1-2 months) Marie Charles MA 11/25/2024 4:[address] Mortensen put in EP referral. He would like him to see them first. BONIFACIO Jansen September R 11/26/2024 4:22 PM Signed Patient scheduled Thanks Chandler Herron Allergies As of Date: 11/18/2024 (No Known Allergies) Date Reviewed: 11/15/2024 Reviewed by: Marlon, Crystal, SALES REPRESENTATIVE [employer] - Fully Assessed Reason for Visit: Appointment [...] area two times a week. Per [facility] PRN - tamsulosin (FLOMAX) 0.4 mg [...] [R07.89] 08/10/2020 09/14/2020 Coronary artery disease of soboba artery of emigdio*08/24/2020 Unsteady gait [R26.81] 02/15/2021 [...] Bradyarrhythmia [I49.8] 11/15/2024 Encounter Status:Closed by CHANDLER HERRON on 11/26/24 PROGRESS Observed: 11/15/2024 12:11 PM Status: COMPLETED Source: [facility] HNO ID: [id number] Author: BRANDON WILLS MD Service: ? Author Type: Physician Type: Progress Notes Filed: 11/15/2024 13:41 Note Text: This note was created using BrandBackerriter. Subjective Patient presents with: 6 Month Exam Rohan Hernandes Jr. is a 79 year old male. Recording using Colto software for draft documentation of the visit was discussed with the patient/authorized factory representative; all questions welcomed and answered. Patient/authorized factory representative agreed to proceed Bradycardia: - Heart rate today is 51 bpm; previously recorded as low as 36 bpm. - Recent Holter monitor placement; metoprolol dosage was reduced by half following results. - Scheduled to see mining analyst Dr. Mortensen on April 28. - Inquires [...] Idiopathic Peripheral Neuropathy Coronary Artery Disease of Ute Artery of Ute Heart With Stable Angina Pectoris Parkinson's Disease [...] area two times a week. Per [facility] PRN tamsulosin (FLOMAX) 0.4 mg Take [...] medication. - PAROXETINE 20 MG TABLET Brandon Wills MD CNOV Observed: 11/15/2024 11:40 AM Status: COMPLETED Source: [facility] Office Visit (INTMWS) ROHAN HERNANDES JR. ([id number]) 1945 M Date Time Provider Department 11/15/24 11:40 AM BRANDON WILLS INTNadiyaWS During your visit today, we recorded the following information about you: Temperature Pulse Respiration Blood pressure 98.5 degrees 56/minute 16/minute 100/46 Weight 86.3 kg Brandon Wills MD 11/15/2024 1:41 PM Signed This note was created using BrandBackerriter. Subjective Patient presents with: 6 Month Exam Rohan Hernandes Jr. is a 79 year old male. Recording using Colto software for draft documentation of the visit was discussed with the patient/authorized factory representative; all questions welcomed and answered. Patient/authorized factory representative agreed to proceed Bradycardia: - Heart rate today is 51 bpm; previously recorded as low as 36 bpm. - Recent Holter monitor placement; metoprolol dosage was reduced by half following results. - Scheduled to see mining analyst Dr. Mortensen on April 28. - Inquires [...] Idiopathic Peripheral Neuropathy Coronary Artery Disease of Ute Artery of Ute Heart With Stable Angina Pectoris Parkinson's Disease [...] area two times a week. Per [facility] PRN tamsulosin (FLOMAX) 0.4 mg Take [...] Continue medication. - PAROXETINE 20 MG TABLET MD Devaughn Vogel Victor H, MD 11/15/2024 12:20 PM Signed Take metoprolol 1/2 tablet once daily for 2 days, then STOP metoprolol. Allergies As of Date: 11/15/2024 (No Known Allergies) Date Reviewed: 11/15/2024 Reviewed by: Crystal Mason LPN - Fully Assessed Reason for Visit: 6 Month Exam [189] Primary Visit Diagnosis:Bradyarrhythmia [I49.8] Other Visit Diagnoses:Primary hypertension [I10] Dizziness [R42] Nausea without vomiting [R11.0] Anxiety [F41.9] Order(s):PARoxetine (PAXIL) 20 mg tabletTake 1 tablet by mouth once daily.Disp: 90 tabletRfl: 3 Prescriptions as of 11/15/2024 - PARoxetine (PAXIL) 20 mg tablet Take [...] area two times a week. Per [facility] PRN - tamsulosin (FLOMAX) 0.4 mg Take 0.4 mg by mouth once daily. Problem List As Of Date 11/15/2024 Noted Resolved Hypertension [I10] 05/04/2009 Anxiety [F41.9] [...] [R07.89] 08/10/2020 09/14/2020 Coronary artery disease of soboba artery of emigdio*08/24/2020 Unsteady gait [R26.81] 02/15/2021 [...] cell cancer [Z85.528] 05/17/2024 Bradyarrhythmia [I49.8] 11/15/2024 Other instructions from your clinician: Take metoprolol 1/2 tablet once daily for 2 days, then STOP metoprolol. Prescriptions ordered this encounter Disp Refills Start End PAROXETINE 20 MG TABLET 90 t* 3 11/15/2024 Route: PO Sig: Take 1 tablet by mouth once daily. Medications Discontinued During This Encounter Prescriptions - metoprolol tartrate, short acting, (LOPRESSOR) 25 mg tablet (Discontinued) Take 0.5 tablets by mouth two times a day. - PARoxetine (PAXIL) 20 mg tablet (Discontinued) Take 1 tablet by mouth once daily. Level of Service: OFFICE/OUTPATIENT ESTABLISHED MOD MDM 30 MIN [13114] Additional E/M codes: VISIT CPLX INHERENT EANDM ASSOC WITH MED * Disposition: Return in about 2 months (around 01/15/2025), or if symptoms worsen or fail to improve. Follow-up and Disposition History for Encounter Date Provider Department Center 11/15/2024 [id number] WILLS [facility] Encounter Status:Closed by BRANDON WILLS on 11/15/24 PROGRESS Observed: 10/18/2024 3:32 PM Status: [facility]TED [id number] Author: BRANDON WILLS MD Service: ? Author Type: Physician Type: Progress Notes Filed: 10/19/2024 08:58 Note Text: This note was created using BrandBackerriter. Subjective Rohan Hernandes Jr. is a 79 year old male. [...] of Face (Hcc) Coronary Artery Disease of Ute Artery of Ute Heart With Stable Angina Pectoris Parkinson's Disease [...] area two times a week. Per [facility] PRN tamsulosin (FLOMAX) 0.4 mg Take [...] I49.8 Improved. 4. 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 - METOPROLOL TARTRATE 25 MG TABLET. Continue 12.5 mg BID. 5. Parkinson's disease, unspecified whether dyskinesia present, unspecified whether manifestations fluctuate (HCC) - ICD9: 332.0, ICD10: G20.A1 - We discussed dysautonomia and precautions that might help. - CARBIDOPA ER 50 MG-LEVODOPA 200 MG TABLET,EXTENDED RELEASE - We clarified his regimen. Brandon Wills MD CNOV Observed: 10/18/2024 3:00 PM Status: COMPLETED Source: [facility] Office Visit (INTMWS) ROHAN HERNANDES JR. ([id number]) 1945 M Date Time Provider Department 10/18/24 3:00 PM BRANDON WILLS INTNadiyaWS During your visit today, we recorded the following information about you: Pulse Blood pressure Weight Height 58/minute 122/54 86.1 kg 1.753 m Brandon Wills MD 10/19/2024 8:58 AM Signed This note was created using BrandBackerriter. Subjective Rohan Hernandes Jr. is a 79 year old male. [...] of Face (Hcc) Coronary Artery Disease of Ute Artery of Ute Heart With Stable Angina Pectoris Parkinson's Disease [...] area two times a week. Per [facility] PRN tamsulosin (FLOMAX) 0.4 mg Take [...] I49.8 Improved. 4. 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 - METOPROLOL TARTRATE 25 MG TABLET. Continue 12.5 mg BID. 5. Parkinson's disease, unspecified whether dyskinesia present, unspecified whether manifestations fluctuate (HCC) - ICD9: 332.0, ICD10: G20.A1 - We discussed dysautonomia and precautions that might help. - CARBIDOPA ER 50 MG-LEVODOPA 200 MG TABLET,EXTENDED RELEASE - We clarified his regimen. 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 - carbidopa-levodopa CR (SINEMET CR) 50-200 mg [...] area two times a week. Per [facility] PRN - tamsulosin (FLOMAX) 0.4 mg Take 0.4 mg by mouth once daily. Problem List As Of Date 10/18/2024 Noted Resolved Hypertension [I10] 05/04/2009 Anxiety [F41.9] [...] [R07.89] 08/10/2020 09/14/2020 Coronary artery disease of soboba artery of emigdio*08/24/2020 Unsteady gait [R26.81] 02/15/2021 05/17/2024 Tremors of nervous system [R25.1] 07/10/2021 11/17/2021 Chronic diarrhea [K52.9] 11/17/2021 05/17/2024 Abnormal weight loss [R63.4] 11/17/2021 08/04/2022 Parkinson's disease (HCC) [G20.A1] 11/17/2021 Renal cell cancer, 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] 05/05/2022 05/17/2024 Vasomotor rhinitis [J30.0] 08/04/2022 Platelets decreased (HCC) [D69.6] 11/04/2022 Stage 3a chronic kidney disease (HCC) [N18.31] 05/19/2023 History of renal cell cancer [Z85.528] 05/17/2024 Prescriptions ordered this encounter Disp Refills Start End METOPROLOL TARTRATE 25 MG TABLET 90 t* 10/18/2024 Class: Med Update Route: ORAL Sig: Take 0.5 tablets by mouth two times a day. CARBIDOPA ER 50 MG-LEVODOPA 200 MG T* 3 10/18/2024 Class: Med Update Sig: Take 1 tab at 8AM and 1 tab at 9PM nightly. Medications Discontinued During This Encounter Prescriptions - metoprolol tartrate, short acting, (LOPRESSOR) 25 mg tablet (Discontinued) Take 25 mg by mouth two times a day. - carbidopa-levodopa CR (SINEMET CR) 50-200 mg per tablet (Discontinued) Reported on 09/12/2024 Level of Service: OFFICE/OUTPATIENT ESTABLISHED MOD MDM 30 MIN [18015] Additional E/M codes: VISIT CPLX INHERENT EANDM ASSOC WITH MED * Disposition: Return if symptoms worsen or fail to improve. Follow-up and Disposition History for Encounter Date Provider Department Center 10/18/2024 [id number] WILLS H [facility]TMWS [facility] Status:Closed by BRANDON WILLS on 10/19/24 XR CHEST 2V FRONTAL/LAT Observed: 2024 2:38 PM Status: F Source: [facility] * * *Final Report* * * DATE OF EXAM: Sep 27 [...] tissues: Unremarkable. IMPRESSION: No acute radiographic abnormality. L D Rn: PSCB Transcribe Date/Time: Sep 27 2024 2:47P Dictated by : ALVARO FOWLER MD This examination was interpreted and the report reviewed and electronically signed by: ALVARO FOWLER MD on Sep 27 2024 2:49PM EST [id number] PROGRESS Observed: 09/27/2024 2:30 PM Status: COMPLETED Source: [facility] HNO ID: [id number] Author: INOCENCIA KELLEY Tech Service: ? Author Type: Technologist Type: Progress Notes Filed: 09/27/2024 14:38 Note Text: Radiology Service Progress Note PATIENT NAME: Rohan Hernandes Jr. DATE OF SERVICE: September 27, 2024 [...] PATIENT PRESENTS WITH AN IMPLANTABLE OR ATTACHED HOT IRON WORKER: No RADIOLOGY DEPARTMENT: General X-ray: Exam(s) Completed: Chest X-Ray PERIPHERAL IV DATA: Not applicable SIGNED BY: Yesika Tapia September 27, 2024 2:28 PM BAS METAB 2000 PNL SERPL Collected: 2:13 PM Status: F Source: [facility] Order Comment: Specimen Type : BLOOD SPECIMEN Ordering Facility: [facility] Address: [address] [place], [place] [address] [address] TYPE CODE TESTS RESULT OUT OF RANGE REFERENCE UNITS LAB 2345-7(LOINC) Glucose SerPl-mCnc 91 74-99 mg/dL Result Comment: The [place] [employer] (ADA) provides guidance for cutoff [...] Standards of Medical Care in Diabetes 2016, [place] [employer]. Diabetes Care. 2016.39(Suppl 1). LAB 3094-0(LOINC) BUN SerPl-mCnc 16 9-24 mg/ dL LAB 2160-0(LOINC) Creat SerPl-mCnc 1.23 High 0.73-1.22 mg/dL LAB 2951-2(LOINC) Sodium SerPl-sCnc 142 136-144 mmol/L LAB 2823-3(LOINC) Potassium SerPl-sCnc 4.7 3.7-5.1 mmol/L LAB 2075-0(LOINC) Chloride SerPl-sCnc 107 98-107 mmol/L LAB 2028-9(LOINC) CO2 SerPl-sCnc 26 22-30 mmo l/L LAB 29294-3(LOINC) Anion Gap SerPl-sCnc 9 8-15 mmol/L LAB 31643-6(LOINC) Calcium SerPl-mCnc 9.1 8.5-10.2 mg/dL LAB 98324-9(LOINC) Creatinine + eGFR Pnl SerPlBld 60 >=60 mL/min/1 .73m??? Result Comment: Estimated Gl omerular Filtration Rate (eGFR) is calculated using the 2020 CKD-EPI creatinine equation. This equation utilizes serum creatinine, sex, and age as parameters. The creatinine assay has traceable calibration to isotope dilution-mass spectrometry. Refer to KDIGO guidelines for clinical interpretation. In patients with unstable renal function, e.g. those with acute kidney injury, the eGFR may not accurately reflect actual GFR. Performed By: #### [id number] # ### [facility] CLIA [id number] [address] [place] [address] CNPN Observed: 09/20/2024 12:00 AM Status: COMPLETED Source: [facility] Telephone (INTMWS) ROHAN HERNANDES JR. ([id number]) 1945 M Date Time Provider Department 09/20/24 BRANDON WILLS INTMWS During your visit today, we recorded [...] Fully Assessed Reason for Visit: Patient Question [5217] Prescriptions as of 09/23/2024 - carbidopa-levodopa CR [...] area two times a week. Per [facility] PRN - tamsulosin (FLOMAX) 0.4 mg [...] [R07.89] 08/10/2020 09/14/2020 Coronary artery disease of soboba artery of emigdio*08/24/2020 Unsteady gait [R26.81] 02/15/2021 [...] Encounter Status:Closed by KATELIN CHEW on 09/23/24 PROGRESS Observed: 09/12/2024 4:23 PM Status: COMPLETED Source: [facility] HNO ID: [id number] Author: RENEA CARABALLO LPN Service: ? Author Type: LICENSED NURSE Type: Progress Notes Filed: 09/13/2024 08:50 Note Text: EVENT MONITOR DISPOSABLE PATCH INSTRUCTIONS Patient Name: Rohan Hernandes Clinic Number: [id number] Skin prepped and cleansed with alcohol Patch secured to prepped area Monitor Activated Serial #: [id number] Patient Instructed: Prescribed order timeframe Bathing guidelines Usage of event button and diary documentation Return of monitor at the end of prescribed order Call with problems [phone] or [phone]. [phone] Patient expresses a good understanding of instructions Renea Caraballo LPN PROGRESS Observed: 09/12/2024 4:08 PM Status: COMPLETED Source: [facility] HNO ID: [id number] Author: CURREN, EUGENIA, SALES REPRESENTATIVE [employer] Service: ? Author Type: LICENSED NURSE Type: Progress Notes Filed: 09/13/2024 08:50 Note Text: Called [employer] to check out of pocket cost for the zio. Reference number is [id number] and they report pt's out of pocket cost is 525$ ECG01 Observed: 09/12/2024 3:29 PM Status: F Source: [facility] Ventricular Rate : 46 BPM Atrial Rate : 46 BPM P-R Interval : 194 ms QRS Duration : 92 ms Q-T Interval : 484 ms QTC Calculation(Bazett) : 423 ms Calculated P [place] : 23 degrees Calculated R [place] : -10 degrees Calculated T [place] : 16 degrees SINUS BRADYCARDIA OTHERWISE NORMAL ECG Confirmed by MD MORIN QARAB ([id number]) on 09/13/2024 2:14:25 PM NAME : ROHAN HERNANDES PID : [id number] : 1945 Gender : Male Race : ORD : Procedure Date : Sep 12 2024 15:29:47 Edit Date : Sep 13 2024 14:14:30 Diagnosis: SINUS BRADYCARDIA OTHERWISE NORMAL ECG Confirmed by MD MORIN QARAB ([id number]) on 09/13/2024 2:14:25 PM Test Reason : Location : 185 : [facility] Overread By : MD MORIN QARAB Edited By : MD MORIN QARAB Referred By : DEBRA DERAS Acquired by : BRADLEY alberto Observed: 09/12/2024 2:44 PM Status: COMPLETED Source: [facility] HNO ID: [id number] Author: BRANDON WILLS MD Service: ? Author Type: Physician Type: Progress Notes Filed: 09/13/2024 08:50 Note Text: This note was created using BrandBackerriter. Subjective Patient presents with: ER F/U Rohan Hernandes Jr. 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 Per [facility] PRN tamsulosin (FLOMAX) 0.4 mg Take [...] clear. - XR CHEST 2V FRONTAL/LAT Brandon Wills MD PROCEDURE Observed: 09/12/2024 2:30 PM Status: [facility]TED [id number] Author: DOUGLAS MORTENSEN MD Service: ? Author Type: Physician Type: Procedures Filed: 10/03/2024 17:19 Note Text: Patient Name: Rohan Hernandes : 1945 Ordering Provider: Brandon Wills Indication: R55 Syncope and collapse Type of [...] Triplets were present. Ventricular Bigeminy was present. CNOV Observed: 09/12/2024 2:20 PM Status: COMPLETED Source: [facility] Office Visit (INTMWS) ROHAN HERNANDES JR. ([id number]) 1945 M Date Time Provider Department 09/12/24 2:20 PM BRANDON WILLS INTMWS During your visit today, we recorded the following information about you: Temperature Pulse Blood pressure Weight 98.5 degrees 48/minute 87/49 84.8 kg Brandon Wills MD 09/13/2024 8:50 AM Signed This note was created using CrimeReportster. Subjective Patient presents with: ER F/U Rohan Hernandes Jr. 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 Per [facility] PRN tamsulosin (FLOMAX) 0.4 mg Take [...] not clear. - XR CHEST 2V FRONTAL/LAT MD Devaughn Vogel Victor H, MD 09/12/2024 3:41 PM Signed CONTINUE MEDICATIONS FOR NOW. INCREASE FLUID INTAKE. BLOOD WORK AND CHEST XRAY IN 4 WEEKS. Eugenia Brown LPN 09/13/2024 8:50 AM Signed Called [employer] to check out of pocket cost for the zio. Reference number is [id number] and they report pt's out of pocket cost is 525$ Renea Caraballo LPN 09/13/2024 8:50 AM Signed EVENT MONITOR DISPOSABLE PATCH INSTRUCTIONS Patient Name: Rohan Hernandes Jr. Clinic Number: [id number] Skin prepped and cleansed with alcohol Patch secured to prepped area Monitor Activated Serial #: [id number] Patient Instructed: Prescribed order timeframe Bathing guidelines Usage of event button and diary documentation Return of monitor at the end of prescribed order Call with problems [phone] or [phone]. [phone] Patient expresses a good understanding of instructions Renea Caraballo LPN Referring Provider: DEBRA DERAS [[id number]] Allergies As of Date: 09/12/2024 (No Known Allergies) Date Reviewed: 09/12/2024 Reviewed by: Renea Caraballo LPN - Fully Assessed Reason for Visit: ER F/U [41] Primary Visit Diagnosis:Dizziness [R42] Other Visit Diagnoses:Near syncope [R55] Bradycardia [R00.1] Orthostatic hypotension [I95.1] Stage 3a chronic kidney disease (HCC) [N18.31] Abnormal CXR [R93.89] Order(s):ECG COMPLETE [ECG01] Order #: [id number]. #:[id number]--[id number] BASIC METABOLIC PANEL [SQBMP] Order #: [id number] FUTURE XR CHEST 2V FRONTAL/LAT [1245862] Order #: [id number] FUTURE OUTSIDE VENDOR CARDIAC OUTPATIENT EXTENDED RHYTHM RECORDING (WITHOUT TELEMETRY) [4413065] Order #: [id number]: 1 Prescriptions as of 09/13/2024 - carbidopa-levodopa CR (SINEMET CR) 50-200 mg [...] area two times a week. Per [facility] 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 INCREASE FLUID INTAKE. BLOOD WORK AND CHEST XRAY IN 4 WEEKS. Medications Discontinued During This Encounter Prescriptions - ipratropium bromide (ATROVENT) 42 mcg (0.06 %) nasal spray (Discontinued) Reported on 09/12/2024 Level of Service: OFFICE/OUTPATIENT ESTABLISHED MOD MDM 30 MIN [22339] Additional E/M codes: VISIT CPLX INHERENT EANDM ASSOC WITH MED * Disposition: Return if symptoms worsen or fail to improve. Follow-up and Disposition History for Encounter Date Provider Department Center 09/12/2024 [id number]-REIIWYZOTBRANDON WILLS INTWS [facility] Encounter Status:Closed by BRANDON WILLS on 09/13/24 PROGRESS Observed: 09/12/2024 2:16 PM Status: COMPLETED Source: [facility] HNO ID: [id number] Author: DEBRA DERAS, ? Service: ? Author Type: Physician Type: [...] Objective: Patient presents to clinic ambulating in [facility] Vasc: DP and PT pulses are palpable [...] is to RTC in 3-4 months. Debra Deras DPM PROGRESS Observed: 09/12/2024 1:44 PM Status: COMPLETED Source: [facility] HNO ID: [id number] Author: SUSANA GONSALEZ LPN Service: ? Author [...] Follow Up, nail care Susana Gonsalez LPN CNOV Observed: 09/12/2024 1:30 PM Status: COMPLETED Source: [facility] Office Visit (PODIWS) CORWINROHAN ([id number]) 1945 M Date Time Provider Department 09/12/24 1:30 PM DEBRA DERAS During your visit today, we recorded the [...] Objective: Patient presents to clinic ambulating in [facility] Vasc: DP and PT pulses are palpable [...] is to RTC in 3-4 months. Debra Deras DPM Referring Provider: DEBRA DERAS [[id number]] Allergies As of Date: 09/12/2024 (No Known [...] area two times a week. Per [facility] PRN - tamsulosin (FLOMAX) 0.4 mg [...] [R07.89] 08/10/2020 09/14/2020 Coronary artery disease of soboba artery of emigdio*08/24/2020 Unsteady gait [R26.81] 02/15/2021 [...] cell cancer [Z85.528] 05/17/2024 Encounter Status:Closed by DEBRA DERAS DPM on 09/12/24 QUETA Observed: 09/10/2024 12:00 AM Status: COMPLETED Source: [facility] ROH[facility] HERNAND[facility] JR. ([id number]) 1945 M Date Time Provider Department 09/10/24 BRANDON WILLS During your visit today, we recorded the following information about you: Laurie JacobsVALENTE 09/10/2024 1:35 PM Signed Patient calling he [...] Aware sending note to his PCP. Brandon Wills MD 09/11/2024 12:28 PM Signed Noted. Allergies [...] area two times a week. Per [facility] PRN - tamsulosin (FLOMAX) 0.4 mg [...] [R07.89] 08/10/2020 09/14/2020 Coronary artery disease of soboba artery of emigdio*08/24/2020 Unsteady gait [R26.81] 02/15/2021 [...] cancer [Z85.528] 05/17/2024 Encounter Status:Closed by BRANDON WILLS on 09/11/24 PROGRESS Observed: 08/16/2024 11:41 AM Status: COMPLETED Source: [facility] HNO ID: [id number] Author: CHRIS PEARSON JR, MD Service: ? Author Type: Physician Type: Progress Notes Filed: 08/16/2024 12:56 Note Text: ESTABLISHED PATIENT VISIT CHIEF COMPLAINT: Follow Up HISTORY OF PRESENT ILLNESS: Rohan Hernandes Jr. is a 79 year old male, [...] area two times a week. Per [facility] 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 Cath /[facility] 08/20/2020. Other pulmonary embolism with acute cor pulmonale (HCC) 01/30/2018 fall, right hip fracture, right total hip Other pulmonary embolism with acute cor pulmonale (HCC) Panic attacks 2001 previously on Xanax Parkinson's disease ([facility]) 11/17/2021 Pulmonary hypertension (HCC) 01/30/2018 Renal cell cancer, left ([facility]) 05/05/2022 Seborrheic keratosis 06/19/2009 Stage 3a chronic kidney disease (HCC) 05/19/2023 Thyrotoxicosis without thyroid storm 11/17/2021 FAMILY HISTORY Problem Relation Age of Onset Psychiatry Mother Anxiety COPD Mother Heart Mother Heart failure, age 94 other (Other) Mother Parkinson's Cancer Father lung cancer, age 86 Psychiatry Sister Panic attacks Emphysema Maternal Grandfather 50 years working on [employer], [employer], coal smoke inhalation. Asthma Maternal Grandfather Colon [...] lb 9.6 oz) SpO2 96% BMI 27.85 kg/m? GENERAL EXAM: General appearance: NAD, pleasant. HEENT: [...] which included preparing to see the patient, [id number] patient care, completing clinical documentation, obtaining and/or reviewing separately obtained history, performing a medically appropriate examination, counseling and educating the patient/family/caregiver, ordering medications, tests, or procedures, and communicating results to the patient/family/caregiver. CNOV Observed: 08/16/2024 11:40 AM Status: COMPLETED Source: [facility] Office Visit (ERIK) ROHAN HERNANDES JR. ([id number]) 1945 M Date Time Provider Department 08/16/24 11:40 AM CHRIS PEARSON JR During your visit today, we recorded the following information about you: Pulse Respiration Blood pressure Weight 58/minute 16/minute 120/62 85.5 kg Chris Pearson Jr., MD 08/16/2024 12:56 PM Signed ESTABLISHED PATIENT VISIT CHIEF COMPLAINT: Follow Up HISTORY OF PRESENT ILLNESS: Rohan Alvarenga Corwin is a 79 year old male, BMI [...] area two times a week. Per [facility] PRN tamsulosin (FLOMAX) 0.4 mg Take [...] tract symptoms 06/19/2009 Cervicalgia 04/23/2019 Chronic bronchitis ([facility]) [facility] [place]. 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 [facility] 08/20/2020. Other pulmonary embolism with acute cor pulmonale (HCC) 01/30/2018 fall, right hip fracture, right total hip Other pulmonary embolism with acute cor pulmonale (HCC) Panic attacks 2001 previously on Xanax Parkinson's disease (HCC) 11/17/2021 Pulmonary hypertension (HCC) 01/30/2018 Renal cell cancer, left ([facility]) 05/05/2022 Seborrheic keratosis 06/19/2009 Stage 3a chronic kidney disease (HCC) 05/19/2023 Thyrotoxicosis without thyroid storm 11/17/2021 FAMILY HISTORY Problem Relation Age of Onset Psychiatry Mother Anxiety COPD Mother Heart Mother Heart failure, age 94 other (Other) Mother Parkinson's Cancer Father lung cancer, age 86 Psychiatry Sister Panic attacks Emphysema Maternal Grandfather 50 years working on [employer], [employer] Secretary, coal smoke inhalation. Asthma Maternal Grandfather Colon [...] lb 9.6 oz) SpO2 96% BMI 27.85 kg/m? GENERAL EXAM: General appearance: NAD, pleasant. HEENT: [...] which included preparing to see the patient, [id number] patient care, completing clinical documentation, obtaining and/or reviewing separately obtained history, performing a medically appropriate examination, counseling and educating the patient/family/caregiver, ordering medications, tests, or procedures, and communicating results to the patient/family/caregiver. Allergies As of Date: 08/16/2024 (No Known Allergies) Date Reviewed: 08/16/2024 Reviewed by: Chris Pearson Jr., MD - Fully Assessed Reason for Visit: Follow Up [171] Cmt: Parkinson's follow up, patient has completed physical therapy as ordered at last visit, patient also taking Sinemet CR at 9 PM as ordered Primary Visit Diagnosis:Parkinson's disease, unspecified whether dyskinesia present, unspecified whether manifestations fluctuate (HCC) [G20.A1] Other Visit Diagnosis:Abnormality of gait [R26.9] Order(s):carbidopa-levodopa CR (SINEMET CR) 50-200 mg per tabletTake 1 tab at 8AM and 1 tab at 9PM nightly.Disp: 90 tabletRfl: 3 carbidopa-levodopa (SINEMET) 25-100 mg per tabletTake 2 tablets at 8AM, Noon and 4PM.Disp: 405 tabletRfl: 3 Prescriptions as of 08/16/2024 - carbidopa-levodopa CR (SINEMET CR) 50-200 mg [...] area two times a week. Per [facility] PRN - tamsulosin (FLOMAX) 0.4 mg Take 0.4 mg by mouth once daily. 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 CARBIDOPA 25 MG-LEVODOPA 100 MG TABL* 405 * 3 08/16/2024 Sig: Take 2 tablets at 8AM, Noon and 4PM. Medications Discontinued During This Encounter Prescriptions - carbidopa-levodopa (SINEMET) 25-100 mg per tablet (Discontinued) Take 1.5 tablets at 8AM, Noon and 4PM. - carbidopa-levodopa CR (SINEMET CR) 50-200 mg per tablet (Discontinued) Take at 9PM nightly. Disposition: Return in about 3 months (around 11/16/2024) for [facility]. Follow-up and Disposition History for Encounter Date Provider Department Center 08/16/2024 [id number] PEARSON JR [facility] Encounter Status:Closed by CHRIS PEARSON on 08/16/24 MADY Observed: 06/14/2024 1:20 PM Status: COMPLETED Source: [facility] Office Visit (PODIWS) ROHAN HERNANDES JR. ([id number]) 1945 M Date Time Provider Department 06/14/24 1:20 PM DEBRA DERAS During your visit today, we recorded the following information about you: Susana Gonsalez LPN 06/14/2024 1:31 PM Signed AMB ROOMING INTAKE FLOWSHEET DATA Patient presents with: Left Foot - Established Patient, Follow Up, nail care Right Foot - Established Patient, Follow Up, nail care Susana Gonsalez LPN Debra Deras 06/14/2024 1:31 PM Signed Subjective: Patient presents [...] Objective: Patient presents to clinic ambulating in [facility] Vasc: DP and PT pulses are nonpalpable [...] is to RTC in 3-4 months. Debra Deras DPM Referring Provider: DEBRA DERAS [[id number]] Allergies As of Date: 06/14/2024 (No Known [...] area two times a week. Per [facility] 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 Follow-up and Disposition History for Encounter Date Provider Department Center 06/14/2024 [id number] DERAS ALEXANDRA [facility] Encounter Status:Closed by DEBRA DERAS DPNadiya on 06/14/24 PROGRESS Observed: 06/14/2024 1:19 PM Status: COMPLETED Source: [facility] HNO ID: [id number] Author: DEBRA DERAS, ? Service: ? Author Type: Physician Type: [...] Objective: Patient presents to clinic ambulating in [facility] Vasc: DP and PT pulses are nonpalpable [...] is to RTC in 3-4 months. Debra Deras DPM PROGRESS Observed: 06/14/2024 1:10 PM Status: COMPLETED Source: [facility] HNO ID: [id number] Author: SUSANA GONSALEZ LPN Service: ? Author Type: LICENSED NURSE Type: Progress Notes Filed: 06/14/2024 13:31 Note Text: AMB ROOMING INTAKE FLOWSHEET DATA Patient presents with: Left Foot - Established Patient, Follow Up, nail care Right Foot - Established Patient, Follow Up, nail care VALENTE Rutledge Observed: 06/06/2024 12:00 AM Status: COMPLETED Source: [facility] Telephone ([facility]) ROHAN HERNANDES JR. ([id number]) 1945 M Date Time Provider Department 06/06/24 CHRIS PEARSON JR During your visit today, we recorded the following information about you: Jyoti Alvares LPN 06/06/2024 10:47 AM Signed ----- Message from Chris Pearson MD sent at 06/06/2024 10:43 AM EST ----- Regarding: FW: PD physical therapy It is from 05/13/24 ----- Message ----- From: Eliezer Marie PT Sent: 06/06/2024 9:44 AM EST To: [...] and face sheet faxed, confirmation received. Jyoti Alvares LPN June 06, 2024 10:52 AM Allergies [...] area two times a week. Per [facility] PRN - tamsulosin (FLOMAX) 0.4 mg [...] [R07.89] 08/10/2020 09/14/2020 Coronary artery disease of soboba artery of emigdio*08/24/2020 Unsteady gait [R26.81] 02/15/2021 [...] cancer [Z85.528] 05/17/2024 Encounter Status:Closed by JYOTI ALVARES on 06/06/24 CBC PNL BLD AUTO Collected: 10:10 AM Status: F Source: [facility] Order Comment: Specimen Type : BLOOD SPECIMEN Ordering Facility: [facility] Address: [address] [place] [address] TYPE CODE TESTS RESULT OUT OF RANGE REFERENCE UNITS LAB 6690-2(LOINC) WBC # Bld Auto 6.26 3.70-11.00 k/uL LAB 789-8(LOINC) RBC # Bld Auto 5.26 4.20-6.00 m/uL LAB 718-7(LOINC) Hgb Bld-mCnc 16.4 13.0-17.0 g/dL LAB 4544-3(LOINC) Hct VFr Bld Auto 49.4 39.0-51.0 % LAB 787-2(LOINC) MCV RBC Auto 93.9 80.0-100.0 fL LAB 785-6(LOINC) MCH RBC Qn Auto 31.2 26.0-34.0 pg LAB 786-4(LOINC) MCHC RBC Auto-mCnc 33.2 30.5-36.0 g/dL LAB 34326-3(LOINC) RDW RBC-Rto 14.0 11.5-15.0 % LAB 777-3(LOINC) Platelet # Bld Auto 92 Low 150-400 k/uL Result Comment: No clot dete cted. LAB 36894-7(LOINC) PMV Bld Auto 12.1 9.0-12.7 fL LAB 771-6(LOINC) nRBC # Bld Auto <0.01 <0.01 k/uL Performed By: #### [id number] # ### [facility] CLIA [id number] [address] [place] [address] [place] COMP METAB 2000 PNL SERPL Collected: 10:10 AM Status: F Source: [facility] Order Comment: Specimen Type : BLOOD SPECIMEN Ordering Facility: [facility] Address: [address] [place] [address] TYPE CODE TESTS RESULT OUT OF RANGE REFERENCE UNITS LAB 2885-2(LOINC) Prot SerPl-mCnc 6.6 6.3-8.0 g/dL LAB 1751-7(LOINC) Albumin SerPl-mCnc 4.1 3.9-4.9 g/dL LAB 02299-9(LOINC) Calcium SerPl-mCnc 9.5 8.5-10.2 mg/dL LAB 1975-2(LOINC) Bilirub SerPl-mCnc 1.0 0.2-1.3 mg/dL LAB 6768-6(LOINC) ALP SerPl-cCnc 105 38-113 U/L LAB 1920-8(LOINC) AST SerPl-cCnc 16 14-40 U/L LAB 1742-6(LOINC) ALT SerPl-cCnc 6 Low 10-54 U/L LAB 2345-7(LOINC) Glucose SerPl-mCnc 88 74-99 mg/dL Result Comment: The [place] Diabetes Association (ADA) provides guidance for cutoff [...] Standards of Medical Care in Diabetes 2016, [place] [employer] Association. Diabetes Care. 2016.39(Suppl 1). LAB 3094-0(LOINC) BUN SerPl-mCnc 18 9-24 mg/ dL LAB 2160-0(LOINC) Creat SerPl-mCnc 1.33 High 0.73-1.22 mg/dL LAB 2951-2(LOINC) Sodium SerPl-sCnc 140 136-144 mmol/L LAB 2823-3(LOINC) Potassium SerPl-sCnc 4.2 3.7-5.1 mmol/L LAB 2075-0(LOINC) Chloride SerPl-sCnc 104 98-107 mmol/L LAB 8-9(LOINC) CO2 SerPl-sCnc 25 22-30 mmo l/L LAB 51446-8(LOINC) Anion Gap SerPl-sCnc 11 8-15 mmol/L LAB 30589-0(LOINC) Creatinine + eGFR Pnl SerPlBld 55 Low >=60 mL/min/1 .73m??? Result Comment: Estimated Gl omerular Filtration Rate (eGFR) is calculated using the 2020 CKD-EPI creatinine equation. This equation utilizes serum creatinine, sex, and age as parameters. The creatinine assay has traceable calibration to isotope dilution-mass spectrometry. Refer to KDIGO guidelines for clinical interpretation. In patients with unstable renal function, e.g. those with acute kidney injury, the eGFR may not accurately reflect actual GFR. Performed By: #### 3016-3, 2 4331-1, 3024-7, 56827-3 #### [facility] CLIA [id number] [address] [place] [address] [place] LIPID 1996 PNL SERPL Collected: 024 10:10 AM Status: F Source: [facility] Order Comment: Specimen Type : BLOOD SPECIMEN Ordering Facility: [facility] Address: [address] [place] [address] TYPE CODE TESTS RESULT OUT OF RANGE REFERENCE UNITS LAB 2093-3(LOINC) Cholest SerPl-mCnc 105 <200 mg/dL Result Comment: <200 mg/dL, Desirable 200-239 mg/dL, Borderline high >239 mg/dL, High LAB 2571-8(LOINC) Trigl SerPl-mCnc 66 <150 mg/dL Result Comment: <150 mg/dL, Normal 150-199 mg/dL, Borderline high 200-499 mg/dL, High >499 mg/dL, Very high LAB 2085-9(LOINC) HDLc SerPl-mCnc 45 >39 mg/dL Result Comment: 40-59 mg/dL, Acceptable >59 mg/dL, High: Negative risk factor for coronary heart disease <40 mg/dL, Low: Positive risk factor for coronary heart disease LAB 18495-7(LOINC) NonHDLc SerPl-mCnc 60 <130 mg/dL Result Comment: <130 mg/dL, Optimal 130-159 mg/dL, Near optimal/above optimal 160-189 mg/dL, Borderline high 190-219 mg/dL, High >219 mg/dL, Very high Secondary prevention optimal non HDL Cholesterol levels are recommended to be <100 mg/dL LAB FT FASTING TIME 13 hrs LAB 54024-3(INC) VLDLc SerPl Calc-mCnc 13 <30 mg/dL LAB 9830-1(INC) Cholest/HDLc SerPl 2.33 <5.10 LAB 2089-1([facility]) LDLc SerPl-mCnc 47 <100 mg/dL Result Comment: <100 mg/dL, Optimal 100-129 mg/dL, Near optimal/above optimal 130-159 mg/dL, Borderline high 160-189 mg/dL, High >189 mg/dL, Very high Secondary prevention optimal LDL Cholesterol levels are recommended to be < 70 mg/dL LAB 83288-8([facility]) LDLc/HDLc SerPl 1.04 <2.54 Result Comment: Reference: 1. National Cholesterol Education Program ATP III Guideline At-A-Glance Quick Desk Reference: National Heart, Lung, and Blood [place]. National Institutes of Health. 2001: NIH Publication No. 01-3305. 2. An International Atherosclerosis Society position paper: global recommendations for the management of dyslipidemia: executive summary, Atherosclerosis. 2014: 232(2):410-413. Performed By: #### 3016-3, 2 4331-1, 7, 85808-5 #### [facility] CLIA [id number] [address] [place] [address] [place] T4 FREE SERPL-MCNC Collected: 4 10:10 AM Status: F Source: [facility] Order Comment: Specimen Type : BLOOD SPECIMEN Ordering Facility: [facility] Address: [address] [place] [address] TYPE CODE TESTS RESULT OUT OF RANGE REFERENCE UNITS LAB 3024-7([facility]) T4 Free SerPl-mCnc 1.2 0.9-1.7 ng/dL Performed By: #### 3016-3, 2 4331-1, 302-7, 04307-9 #### [facility] CLIA [id number] [address] [place] [address] [place] TSH SERPL-ACNC Collected: 10:10 AM Status: F Source: [facility] Order Comment: Specimen Type : BLOOD SPECIMEN Ordering Facility: [facility] Address: [address] [place] [address] TYPE CODE TESTS RESULT OUT OF RANGE REFERENCE UNITS LAB 3016-3(LOINC) TSH SerPl-aCnc 2.150 0.270-4.200 mIU/L Performed By: #### 3016-3, 2 4331-1, 3024-7, 24560-0 #### [facility] CLIA [id number] [address] [place] [address] [id number] [place] [address] PROGRESS Observed: 05/17/2024 12:00 PM Status: COMPLETED Source: [facility] HNO ID: [id number] Author: BRANDON WILLS MD Service: ? Author Type: Physician Type: Progress Notes Filed: 05/17/2024 23:09 Note Text: This note was created using CrimeReportster. Subjective Rohan Hernandes Jr. is a 78 year old male. 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 BMI 27.87 kg/(m2) - POTASSIUM CHLORIDE ER 10 MEQ CAPSULE,EXTENDED [...] RISK EDUCATION 7. 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 History of renal cell cancer - ICD9: V10.52, ICD10: Z85.528 - PASTOR. Brandon Wills MD PROGRESS Observed: 05/17/2024 11:53 AM Status: COMPLETED Source: [facility] HNO ID: [id number] Author: BRANDON WILLS MD Service: ? Author Type: Physician Type: Progress Notes Filed: 05/17/2024 23:09 Note Text: Rohan Hernandes Jr. is a 78 year old male [...] Current care team: Patient Care Team: Brandon Wills MD as PCP - General Delicia Anton, YAW.RAZOR GRINDER as Deck Lid Fitter (Internal Medicine) Douglas Mortensen MD (Cardiology) Chris Pearson Jr., MD (Neurology) Debra Deras DPM (Podiatry) Outside specialists seen: Blanca Obrien MD (Gastroenterology) Angel Connolly MD (Urology) Claire Herrera APRN, CNP (Dermatology, [facility]) Pascual Dawson MD (ENT) Nikhil Darling (Optometry). [...] plan provided - Vaccine recommendation: Covid 19. CNOV Observed: 05/17/2024 11:00 AM Status: COMPLETED Source: [facility] Office Visit (INTMWS) ROHAN HERNANDES JR. ([id number]) 1945 M Date Time Provider Department 05/17/24 11:00 AM BRANDON WILLS INTMWS During your visit today, we recorded the following information about you: Pulse Blood pressure Weight Height 49/minute 128/60 85.6 kg 1.753 m Brandon Wills MD 05/17/2024 12:15 PM Addendum You would benefit from general conditioning exercise programs such as those offered by recreation centers or the [facility]. WHAT YOU CAN DO TO PREVENT [...] review all the medicines you take, even fptl-stv-qxvpfll medicines. As you get older, the way [...] on 05/16/2024 Fasting blood tests soon. Brandon Wills MD 05/17/2024 11:09 PM Signed Rohan Hernandes Jr. is a 78 year old male [...] Current care team: Patient Care Team: Brandon Wills MD as PCP - General Delicia Anton APRN.ALFREDO as Deck Lid Fitter (Internal Medicine) Douglas Mortensen MD (Cardiology) Chris Pearson Jr., MD (Neurology) Debra Deras DPM (Podiatry) Outside specialists seen: Blanca Obrien MD (Gastroenterology) Angel Connolly MD (Urology) Claire Herrera APRN, CNP (Dermatology, [facility]) Pascual Dawson MD (ENT) Nikhil Darling (Optometry). [...] plan provided - Vaccine recommendation: Covid 19. Brandon Wills MD 05/17/2024 11:09 PM Signed This note was created using BrandBackerriter. Subjective Rohan Hernandes Jr. is a 78 year old male. 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 Per [facility] PRN tamsulosin (FLOMAX) 0.4 mg [...] and benefit of weight loss. BMI 27.87 kg/(m2) - POTASSIUM CHLORIDE ER 10 MEQ CAPSULE,EXTENDED RELEASE 4. 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 - IPRATROPIUM BROMIDE 42 MCG (0.06 %) NASAL SPRAY 5. Screening for depression - ICD9: V79.0, ICD10: Z13.31 Done. - DEPRESSION SCREENING 6. Parkinson's disease, unspecified whether dyskinesia present, unspecified whether manifestations fluctuate ([facility]) - ICD9: 332.0, ICD10: G20.A1 - FALLS RISK EDUCATION 7. 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 History of renal cell cancer - ICD9: V10.52, ICD10: Z85.528 - PASTOR. 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) [I25.118] Platelets decreased (HCC) [D69.6] Stage 3a chronic kidney disease (HCC) [N18.31] Thyrotoxicosis without thyroid storm, unspecified thyrotoxicosis type [E05.90] Need for COVID-19 vaccine [Z23] History of renal cell cancer [Z85.528] Order(s):LORazepam (ATIVAN) 1 mg tabletTake 1 tablet by mouth at bedtime as needed for anxiety for up to 90 days.Disp: 30 tabletRfl: 0 potassium chloride SR (MICRO-K) 10 mEq CR capsuleTake 1 capsule by mouth two times a day.Disp: 180 capsuleRfl: 3 ADVANCE CARE PLAN DISCUSSION [[id number]] Order #: [id number]: 1 ipratropium bromide (ATROVENT) 42 mcg (0.06 %) nasal sprayUse 2 Sprays in the nose as needed.Disp: Rfl: DEPRESSION SCREENING [2742495] Order #: [id number]: 1 FALLS RISK EDUCATION [6532861] Order #: [id number]: 1 [employer] COVID-19 VACCINE AGE 12+ YR (COMIRNATY) [17663SFL] Order #: [id number] Prescriptions as of 05/17/2024 - LORazepam (ATIVAN) 1 mg tablet Take [...] area two times a week. Per [facility] PRN - tamsulosin (FLOMAX) 0.4 mg Take 0.4 mg by mouth once daily. - methIMAzole (TAPAZOLE) 5 mg tablet Take 1 tablet by mouth once daily. Per Dr. Mayela Murray, endocrinology. 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 WHAT YOU CAN DO TO PREVENT [...] review all the medicines you take, even hqxu-gth-jnbufvv medicines. As you get older, the way [...] due on 05/16/2024 Fasting blood tests soon. Prescriptions ordered this encounter Disp Refills Start End LORAZEPAM 1 MG TABLET 30 t* 0 05/17/2024 08/15/2024 Route: ORAL Sig: Take 1 tablet by mouth at bedtime as needed for anxiety for up to 90 days. POTASSIUM CHLORIDE ER 10 MEQ CAPSULE* 180 * 3 05/17/2024 Route: ORAL Sig: Take 1 capsule by mouth two times a day. IPRATROPIUM BROMIDE 42 MCG (0.06 %) * 05/17/2024 Class: Med Update Route: NASAL Sig: Use 2 Sprays in the nose as needed. Medications Discontinued During This Encounter Prescriptions - LORazepam (ATIVAN) 1 mg tablet (Discontinued) Take 1 tablet by mouth at bedtime as needed for anxiety for up to 90 days. - potassium chloride SR (MICRO-K) 10 mEq CR capsule (Discontinued) Take 1 capsule by mouth two times a day. - ipratropium bromide (ATROVENT) 42 mcg (0.06 %) nasal spray (Discontinued) Use 2 Sprays in the nose as needed. Disposition: Return in about 6 months (around 11/15/2024). Follow-up and Disposition History for Encounter Date Provider Department Center 05/17/2024 [id number] WILLS INTMWS [facility] Encounter Status:Closed by BRANDON WILLS on 05/17/24 PROGRESS Observed: 05/13/2024 11:26 AM Status: COMPLETED Source: [facility] HNO ID: [id number] Author: CHRIS PEARSON JR, MD Service: ? Author Type: Physician Type: Progress Notes Filed: 05/13/2024 12:20 Note Text: ESTABLISHED PATIENT VISIT CHIEF COMPLAINT: Follow Up HISTORY OF PRESENT ILLNESS: Rohan Hernandes Jr. is a 78 year old male, BMI 27.54 kg/m2 with a PMH significant for and per notes of Jose Ledbetter RAZOR GRINDER of 08/11/22: G20 Parkinson's disease (HCC) (primary [...] was advised that he follow-up with his assistant clinical director and surgeon to determine when he may [...] area two times a week. Per [facility] PRN ipratropium bromide (ATROVENT) 42 mcg (0.06 %) nasal spray Use 2 Sprays in the nose four times daily. (Patient taking differently: Use 2 Sprays in the nose as needed.) LORazepam (ATIVAN) 1 mg tablet Take 1 tablet by mouth at bedtime as needed for anxiety for up to 90 days. tamsulosin (FLOMAX) 0.4 mg Take 0.4 mg [...] Other chest pain Sandrita Mortensen MD. Cath /[facility] 08/20/2020. Other pulmonary embolism with acute cor pulmonale (HCC) 01/30/2018 fall, right hip fracture, right total hip Other pulmonary embolism with acute cor pulmonale (HCC) Panic attacks 2000 previously on Xanax Parkinson's disease ([facility]) 11/17/2021 Pulmonary hypertension ([facility]) 01/30/2018 Renal cell cancer, left ([facility]) 05/05/2022 Seborrheic keratosis 06/19/2009 Stage 3a chronic kidney disease (HCC) 05/19/2023 Thyrotoxicosis without thyroid storm 11/17/2021 FAMILY HISTORY Problem Relation Age of Onset Psychiatry Mother Anxiety COPD Mother Heart Mother Heart failure, age 94 other (Other) Mother Parkinson's Cancer Father lung cancer, age 86 Psychiatry Sister Panic attacks Emphysema Maternal Grandfather 50 years working on [employer], Mobile Secretary, coal smoke inhalation. Asthma Maternal Grandfather Colon [...] lb 9.6 oz) SpO2 94% BMI 27.54 kg/m? GENERAL EXAM: General appearance: NAD, pleasant. HEENT: [...] which included preparing to see the patient, ejdn-ed-iijg patient care, completing clinical documentation, obtaining and/or reviewing separately obtained history, performing a medically appropriate examination, counseling and educating the patient/family/caregiver, ordering medications, tests, or procedures, and communicating results to the patient/family/caregiver. CNOV Observed: 05/13/2024 11:00 AM Status: COMPLETED Source: [facility] Office Visit (ERIK) ROHAN HERNANDES JR. ([id number]) 1945 M Date Time Provider Department 05/13/24 11:00 AM CHRIS PEARSON JR During your visit today, we recorded the following information about you: Pulse Respiration Blood pressure Weight 52/minute 18/minute 146/70 86.5 kg Chris Pearson Jr., MD 05/13/2024 12:20 PM Signed ESTABLISHED PATIENT VISIT CHIEF COMPLAINT: Follow Up HISTORY OF PRESENT ILLNESS: Rohan Alvarenga Corwin Castillo is a 78 year old male, BMI [...] was advised that he follow-up with his assistant clinical director and surgeon to determine when he may [...] area two times a week. Per [facility] PRN ipratropium bromide (ATROVENT) 42 mcg (0.06 %) nasal spray Use 2 Sprays in the nose four times daily. (Patient taking differently: Use 2 Sprays in the nose as needed.) LORazepam (ATIVAN) 1 mg tablet Take 1 tablet by mouth at bedtime as needed for anxiety for up to 90 days. tamsulosin (FLOMAX) 0.4 mg Take 0.4 mg by mouth once daily. methIMAzole (TAPAZOLE) 5 mg tablet Take 1 tablet by mouth once daily. Per Dr. Mayela Murray, endocrinology. HISTORIES PAST MEDICAL HISTORY Diagnosis Date Acquired polycythemia 01/24/2013 Actinic Keratosis (Premalignant AK) 09/05/2010 Acute cholecystitis 08/18/2023 Adenomatous colon polyp 10/09/2014 Anxiety 06/19/2009 BPH loc w/o Ur Obs/LUTS 06/19/2009 Chronic bronchitis ([facility]) 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 Clostridium difficile diarrhea 08/21/2021 Enterocolitis due to Clostridium difficile 05/25/2015 Gross hematuria 01/30/2018 Hemarthrosis following procedure 07/23/2021 Right knee s/p TKR Hypertension 05/04/2009 Hyperthyroidism, subclinical 06/19/2009 OA (osteoarthritis) of knee 01/24/2013 Obesity 06/19/2009 Obesity, Class I, BMI 30-34.9 10/19/2017 Other chest pain Sandrita Mortensen MD. [facility] 08/20/2020. Other pulmonary embolism with acute cor pulmonale ([facility]) 01/30/2018 fall, right hip fracture, right total hip Other pulmonary embolism with acute cor pulmonale ([facility]) Panic attacks 2001 previously on Xanax Parkinson's disease ([facility]) 11/17/2021 Pulmonary hypertension ([facility]) 01/30/2018 Renal cell cancer, left ([facility]) 05/05/2022 Seborrheic keratosis 06/19/2009 Stage 3a chronic kidney disease ([facility]) 05/19/2023 Thyrotoxicosis without thyroid storm 11/17/2021 FAMILY HISTORY Problem Relation Age of Onset Psychiatry Mother Anxiety COPD Mother Heart Mother Heart failure, age 94 other (Other) Mother Parkinson's Cancer Father lung cancer, age 86 Psychiatry Sister Panic attacks Emphysema Maternal Grandfather 50 years working on [employer], Mobile Secretary, coal smoke inhalation. Asthma Maternal Grandfather Colon [...] lb 9.6 oz) SpO2 94% BMI 27.54 kg/m? GENERAL EXAM: General appearance: NAD, pleasant. HEENT: [...] which included preparing to see the patient, ydmv-ix-jzhk patient care, completing clinical documentation, obtaining and/or reviewing separately obtained history, performing a medically appropriate examination, counseling and educating the patient/family/caregiver, ordering medications, tests, or procedures, and communicating results to the patient/family/caregiver. Chris Pearson Jr., MD 05/13/2024 11:58 AM Signed CARBIDOPA-LEVODOPA 25/100mg Take 1.5 tablets at 8AM, Noon and 4PM. CARBIDOPA-LEVODOPA CR 50/200mg Take 1 tablet at 9PM. Allergies As of Date: 05/13/2024 (No Known Allergies) Date Reviewed: 05/13/2024 Reviewed by: Chris Pearson Jr., MD - Fully Assessed Reason for Visit: New Patient Evaluation [154] Cmt: Patient was evaluated for Parkinson's three years ago by a provider in [facility] [place] [employer] since this visit he has a worsening tremor of both hands and legs, gait has also worsened, states if he stands up too quickly he looses his balance Primary Visit Diagnosis:Parkinson's disease, unspecified whether dyskinesia present, unspecified whether manifestations fluctuate ([facility]) [G20.A1] Other Visit Diagnosis:Abnormality of gait [R26.9] Order(s):carbidopa-levodopa (SINEMET) 25-100 mg per tabletTake 1.5 tablets at 8AM, Noon and 4PM.Disp: 405 tabletRfl: 3 carbidopa-levodopa CR (SINEMET CR) 50-200 mg per tabletTake at 9PM nightly.Disp: 90 tabletRfl: 3 CONSULT TO PHYSICAL THERAPY [9048] Order #: [id number]: 1 FUTURE Prescriptions as of 05/13/2024 - aspirin 81 mg cap Take 81 [...] by mouth two times a day. - ketoconazole (NIZORAL) 2 % shampoo Apply to affected area two times a week. Per [facility] PRN - ipratropium bromide (ATROVENT) 42 [...] Murray, endocrinology. 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 CARBIDOPA-LEVODOPA CR 50/200mg Take 1 tablet at 9PM. Prescriptions ordered this encounter Disp Refills Start End CARBIDOPA 25 MG-LEVODOPA 100 MG TABL* 405 * 3 05/13/2024 Sig: Take 1.5 tablets at 8AM, Noon and 4PM. CARBIDOPA ER 50 MG-LEVODOPA 200 MG T* 90 t* 3 05/13/2024 Sig: Take at 9PM nightly. Medications Discontinued During This Encounter Prescriptions - carbidopa-levodopa (SINEMET) 25-100 mg per tablet (Discontinued) Take 1.5 tablets by mouth three times a day. Disposition: Return for 8 weeks with LAURYN. Follow-up and Disposition History for Encounter Date Provider Department Center 05/13/2024 [id number] PEARSON JR [facility] Encounter Status:Closed by CHRIS PEARSON on 05/13/24 QUETA Observed: 04/29/2024 12:00 AM Status: COMPLETED Source: [facility] Telephone (INTMWS) ROHAN HERNANDES JR. ([id number]) 1945 M Date Time Provider Department 04/29/24 BRANDON WILLS INTMWS During your visit today, we recorded the following information about you: Amrita Hernandez RN 04/29/2024 2:11 PM Signed Patient calling to request letter for excuse from jury duty from [facility] [employer]. He says needs excused due to Parkinson's. 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 Let patient know when [...] a week. Per [facility] 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 Author Type: Physician Type: Progress Notes Filed: 04/15/2024 15:51 Note Text: Douglas Mortensen MD Interventional Cardiology [address] [place] [address] [id number] Chief Complaint Patient presents with: Yearly Exam HISTORY OF PRESENT ILLNESS: Mr. Hernandes is a 78 year old male seen [...] Other chest pain Sandrita Mortensen MD. Cath /[facility] 08/20/2020. Other pulmonary embolism with acute [...] area two times a week. Per [facility] PRN ipratropium bromide (ATROVENT) 42 mcg [...] 186 lb (84.4kg) SpO2 95% BMI 26.87 kg/(m2). BP w/Orthostatic Vitals Date and Time Orthostatic [...] regular exercise 3. 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 A reasonable attempt has been made to correct any errors. CNOV Observed: 04/15/2024 3:20 PM Status: COMPLETED Source: [facility] Office Visit (CTWSTR) ROHAN HERANNDES JR. ([id number]) 1945 M Date Time Provider Department 04/15/24 3:20 PM DOUGLAS MORTENSEN During your visit today, we recorded the following information about you: Pulse Blood pressure Weight Height 66/minute 116/60 84.4 kg 1.772 m Douglas Mortensen MD 04/15/2024 3:51 PM Signed Douglas Mortensen MD Interventional Cardiology [address] [place] [address] [phone] Chief Complaint Patient presents with: Yearly Exam HISTORY OF PRESENT ILLNESS: Mr. Hernandes is a 78 year old male seen [...] Other chest pain Sandrita Mortensen MD. Cath /[facility] 08/20/2020. Other pulmonary embolism with acute [...] Emphysema Maternal Grandfather 50 years working on [employer], Mobile Secretary, coal smoke inhalation. Asthma Maternal Grandfather Colon [...] area two times a week. Per [facility] PRN ipratropium bromide (ATROVENT) 42 mcg [...] 186 lb (84.4kg) SpO2 95% BMI 26.87 kg/(m2). BP w/Orthostatic Vitals Date and Time Orthostatic [...] regular exercise 3. 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 A reasonable attempt has been made to correct any errors. 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 Per [facility] PRN - ipratropium bromide (ATROVENT) 42 [...] Murray, endocrinology. 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 Follow-up and Disposition History for Encounter Date Provider Department Center 04/15/2024 [id number] MORTENSEN Letter Text Encounter Status:Closed by DOUGLAS MORTENSEN on 04/15/24 PROGRESS Observed: 03/22/2024 2:33 PM Status: COMPLETED Source: [facility] HNO ID: [id number] Author: DVA FINNEGAN MA Service: ? Author Type: Side Seam Envelope Machine Operator Type: Progress Notes Filed: 03/22/2024 14:34 Note Text: POPULATION HEALTH NAVIGATION OUTREACH Action/FYI Patient responded via mychart and states that he is having this done 04/26/24 - appears to be outside [facility]. Reminded patient to have provider forward report to PCP. Reason for Outreach Returned Call/MyChart Patient Contacted: Spoke to patient/parent/or legal guardian Patient identified by name and date of : Yes Returned call/MyChart actions taken: No action required Navigation Signature: Dav Finnegan MA March 22, 2024 2:33 PM PROGRESS Observed: 03/22/2024 1:12 PM Status: COMPLETED Source: [facility] HNO ID: [id number] Author: DAV FINNEGAN MA Service: ? Author Type: Side Seam Envelope Machine Operator Type: Progress Notes Filed: 03/22/2024 13:15 Note Text: POPULATION HEALTH NAVIGATION OUTREACH Action/FYI Patient is on [facility] CURRENT ROSTER Workbench list for below and needs appointment to address: Depression Screening Colorectal Cancer Screening Advance Directive Discussion Covid-19 Vaccine( season) Hemoglobin A1C (%) Date Value 03/10/2017 5.6 Patient due for: Colorectal Cancer Screening - [facility] Active: Yes Left message for patient to call back. Sent Photowhoa message. AWV already scheduled Reason for Outreach Care Gap/HCC or Scheduling Wellness Visits Care Gaps due: Colorectal Cancer Screening Patient Contacted: Unable or unnecessary to reach patient: Left message TekLinks message sent HCC related Navigation Signature: Dav Finnegan MA March 22, 2024 1:12 PM CNPTOUTREACH Observed: 03/22/2024 12:00 AM Status: COMPLETED Source: [facility] Patient Outreach (NETNAV) ROHAN HERNANDES JR. ([id number]) 1945 M Date Time Provider Department 03/22/24 DAV FINNEGAN During your visit today, we recorded the following information about you: Dav Finnegan MA 03/22/2024 1:15 PM Signed POPULATION HEALTH NAVIGATION OUTREACH Action/ Patient is on [facility] list for below and needs appointment to address: Depression Screening Colorectal Cancer Screening Advance Directive Discussion Covid-19 Vaccine() Hemoglobin A1C (%) Date Value 03/10/2017 5.6 Patient due for: Colorectal Cancer Screening - [facility] [employer] Active: Yes Left message for patient to call back. Sent Photowhoa message. AWV already scheduled Reason for Outreach Care Gap/HCC or Scheduling Wellness Visits Care Gaps due: Colorectal Cancer Screening Patient Contacted: Unable or unnecessary to reach patient: Left message InspireMDt message sent HCC related Navigation Signature: Dav Finnegan MA March 22, 2024 1:12 PM Dav Finnegan MA 03/22/2024 2:34 PM Signed POPULATION HEALTH NAVIGATION OUTREACH Action/ Patient responded via Photowhoa and states that he is having this done 04/26/24 - appears to be outside [facility]. Reminded patient to have provider forward report to PCP. Reason for Outreach Returned Call/MyChart Patient Contacted: Spoke to patient/parent/or legal guardian Patient identified by name and date of : Yes Returned call/TodoCast TVhart actions taken: No action required Navigation Signature: Dav Finnegan MA March 22, 2024 2:33 PM Allergies As of Date: 03/22/2024 (No Known Allergies) Date Reviewed: 03/11/2024 Reviewed by: Daja Huerta, RN - Fully Assessed Reason for Visit: Population Health Navigation Outreach [3910] Cmt: [facility] PCSA Prescriptions as of 03/22/2024 - atorvastatin (LIPITOR) [...] area two times a week. Per [facility]. 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 Service: ? Author Type: Physician Type: [...] is to RTC in 3-4 months. Debra Deras DPM PROGRESS Observed: 03/11/2024 2:20 PM Status: COMPLETED Source: [facility] HNO ID: [id number] Author: DAJA HUERTA RN Service: ? Author Type: Registered Nurse Type: Progress Notes Filed: 03/11/2024 21:53 Note Text: [facility] ROOMING INTAKE FLOWSHEET DATA Pain Pain Level: 3 Pain Location: Foot-Right Comments: States bunion pain Patient presents with: Left Foot - Established Patient, Follow Up, nail care Right Foot - Established Patient, Follow Up, nail care Patient presents for follow up nail care. ELEONORA 12/04/23 CNOV Observed: 03/11/2024 2:00 PM Status: COMPLETED Source: [facility] Office Visit (PODIWS) ROHAN HERNANDES JR. ([id number]) 1945 M Date Time Provider Department 03/11/24 2:00 PM DEBRA DERAS PODIWS During your visit today, we recorded the following information about you: Daja Huerta RN 03/11/2024 9:53 PM Signed [facility] ROOMING INTAKE FLOWSHEET DATA Pain Pain Level: 3 Pain Location: Foot-Right Comments: States bunion pain Patient presents with: Left Foot - Established Patient, Follow Up, nail care Right Foot - Established Patient, Follow Up, nail care Patient presents for follow up nail care. ELEONORA 12/04/23 Debra Deras 03/11/2024 9:53 PM Signed Subjective: Patient presents [...] is to RTC in 3-4 months. Debra Deras DPM Referring Provider: DEBRA DERAS [[id number]] Allergies As of Date: 03/11/2024 (No Known [...] area two times a week. Per [facility]. 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 Follow-up and Disposition History for Encounter Date Provider Department Center 03/11/[id number]-STUWIBMKDEBRA DERAS [facility] Encounter Status:Closed by DEBRA DERAS DPM on 03/11/24 ALLERGIES DATE TYPE / CODE NAME / CODE REACTION SEVERITY SOURCE Drug Class/[id number](SNO MED CT) NO KNOWN ALLERGIES [facility] ENCOUNTERS ADMIT/DISCHARGE ACCOUNT NUMBER ADMITTING ENCOUNTER CLASS LOC ATION SOURCE 01/16/2025/ 5 [id number] Ambulatory [facility] HospitalBuild ing:FLIP [facility] 01/13/2025/ 5 [id number] Ambulatory [facility] HospitalBuild ing:FLIP [facility] 12/20/2024/ 5 [id number] Ambulatory [facility] HospitalBuild ing:ARLINE [facility] 12/13/2024/ 5 [id number] Ambulatory [facility] HospitalBuild ing:MAYELA [facility] 11/15/2024/ 5 [id number] Ambulatory [facility] HospitalBuild ing:FLIP [facility] 10/18/2024/ 5 [id number] Ambulatory [facility] HospitalBuild ing:FLIP [facility] 09/27/2024 [id number] Ambulatory [facility] HospitalBuild ing:OLINDA [facility] 09/27/2024/ 5 [id number] Ambulatory [facility] HospitalBuild ing:OSMIN [facility] 09/12/2024/ 5 [id number] Ambulatory [facility] HospitalBuild ing:FLIP [facility] 09/12/2024/ 5 [id number] Ambulatory [facility] HospitalBuild ing:MAYELA [facility] 08/16/2024/ 5 [id number] Ambulatory [facility] HospitalBuild ing:ARLINE [facility] 06/14/2024/ 5 [id number] Ambulatory [facility] HospitalBuild ing:MAYELA [facility] 05/18/2024/ 4 [id number] Ambulatory [facility] HospitalBuild ing:OSMIN [facility] 05/17/2024/ 4 [id number] Ambulatory [facility] HospitalBuild ing:FLIP [facility] 05/13/2024/ 4 [id number] Ambulatory [facility] HospitalBuild ing:WON2 [facility] 04/15/2024/ 4 [id number] Ambulatory [facility] HospitalBuild ing:CAWO [facility] 03/11/2024/ 4 [id number] Ambulatory [facility] HospitalBuild ing:WOPO [facility] PAYERS ENCOUNTER GUARANTOR PAYER SUBSCRIBER SOURCE 01/16/2025 Primary Insurance:[facility] MEDICARE ADVANTAGE [facility] Number: [id number] Date:5713-52-88Ewea Name:Sylwia LOZANO Lyle HERNANDES JR.: [id number] [place] [address] [facility] 01/13/2025 Primary Insurance:[facility] MEDICARE ADVANTAGE [facility] Number: [id number] Date:7542-71-13Nbkr Name:Sylwia ROHAN HERNANDES JR.: [id number] [place] [address] [facility] 12/20/2024 Primary Insurance:[facility] MEDICARE ADVANTAGE OPolicy Number: [id number] Date:0277-70-37Awfv Name:Sylwia ROHAN HERNANDES JR.: [id number] [place] [address] [facility] 12/13/2024 Primary Insurance:[facility] MEDICARE ADVANTAGE OPolicy Number: [id number] Date:8794-08-24Rktc Name:Sylwia HERNANDES JR.: [id number] [place] [address] [facility] 11/15/2024 Primary Insurance:[facility] MEDICARE ADVANTAGE OPolicy Number: [id number] Date:8373-98-90Wubi Name:Sylwia HERNANDES JR.: [id number] [place] [address] [facility] 10/18/2024 Primary Insurance:[facility] MEDICARE ADVANTAGE HMOPolicy Number: [id number] Date:1544-81-52Bhjp Name:Sylwia KUMARPE José: [id number] [place] [address] [facility] 09/27/2024 Primary Insurance:[facility] MEDICARE ADVANTAGE HMOPolicy Number: [id number] Date:6783-98-67Kiqd Name:Sylwia HERNANDES JRJosé: [id number] [place], [place] [address] [place] [address] 09/27/2024 Primary Insurance:[facility] MEDICARE ADVANTAGE HMOPolicy Number: [id number] Date:1907-61-75Wuqz Name:Sylwia Alvarenga CORWIN José: [id number] [place], [place] [address] [place] [address] 09/12/2024 Primary Insurance:[facility] MEDICARE ADVANTAGE HMOPolicy Number: [id number] Date:5424-00-49Mcej Name:Sylwia LOZANO Lyle HERNANDES JR.: [id number] [place], [place] [address] [place] [address] 09/12/2024 Primary Insurance:[facility] MEDICARE ADVANTAGE HMOPolicy Number: [id number] Date:5796-77-82Zdwe Name:Sylwia LOZANO Lyle HERNANDES JR.: [id number] [place], [place] [address] [place] [address] 08/16/2024 Primary Insurance:[facility] MEDICARE ADVANTAGE HMOPolicy Number: [id number] Date:7535-31-87Ikcm Name:Sylwia LOZANO Lyle HERNANDES JR.: [id number] [place], [place] [address] [place] [address] 06/14/2024 Primary Insurance:[facility] MEDICARE ADVANTAGE HMOPolicy Number: [id number] Date:3159-43-33Jlao Name:Sylwia MCNULTYLANI HERNANDES JR.: [id number] [place] [address] [facility] 05/18/2024 Primary Insurance:[facility] MEDICARE ADVANTAGE HMOPolicy Number: [id number] Date:9915-42-89Rjfr Name:Sylwia Alvarenga CORWIN JRJosé: [id number] [place] [address] [facility] 05/17/2024 Primary Insurance:[facility] MEDICARE ADVANTAGE HMOPolicy Number: [id number] Date:3504-99-58Blgq Name:Sylwia HERNANDES JRJosé: [id number] [place] [address] [facility] 05/13/2024 Primary Insurance:[facility] MEDICARE ADVANTAGE HMOPolicy Number: [id number] Date:6963-76-17Vdso Name:Sylwia Alvarenga CORWIN CASTILLO: [id number] [place] [address] [facility] 04/15/2024 Primary Insurance:[facility] MEDICARE ADVANTAGE HMOPolicy Number: [id number] Date:2390-66-96Ikea Name:Sylwia Alvarenga CORWIN CASTILLO: [id number] [place] [address] [facility] 03/11/2024 Primary Insurance:[facility] MEDICARE ADVANTAGE HMOPolicy Number: [id number] Date:4254-61-71Otbw Name:Sylwia Alvarenga CORWIN CASTILLO: [id number] [place] [address] [facility]
[2025-03-03] VITALS (7 sets, daily range): BP systolic 144–172; BP diastolic 62–75; PULSE 71–90; RESP 15–18; TEMP 36.6–36.8; O2SAT 92–97; BMI 34.9; BMI 25.7
--- NOTE | 2025-03-03 13:54 | CT_ITS ---
PROCEDURE: CHEST WITHOUT CONTRAST 03/03/2025 REASON FOR EXAM: FALL WITH BILATERAL POSTERIOR RIB CAGE PAIN Shortness of breath. TECHNIQUE: Chest CT without contrast. Coronal and Sagittal reconstruction series were provided. One or more dose reduction techniques were used (e.g., Automated exposure control, adjustment of the mA and/or kV according to patient size, use of iterative reconstruction technique RADIATION DOSE SUMMARY: CTDlvol: 27 mGy DLP: 610 mGycm COMPARISON: None. FINDINGS: Thyroid gland: Mildly prominent thyroid gland without distinct mass.. Lungs: Emphysematous changes. Mild dependent atelectasis. No distinct infiltrates. No pulmonary nodules or masses. Pleura: Negative for pleural effusion or pneumothorax. Airways: Imaged bronchi and trachea otherwisenegative. Mediastinum: Negative for mediastinal mass. Lymph nodes: Scattered but nonenlarged mediastinal lymph nodes. Negative for axillary, mediastinal or hilar adenopathy. Heart and Vasculature: Ascending thoracic aorta 3.6 by 3.7 cm. Heart normal size. Fyns-mh-tmbwmtdp vascular calcifications of the thoracic aorta. Coronary Artery Calcifications: Severe vascular calcifications of the coronary arteries Upper Abdomen: Cholecystectomy. Simple hepatic and renal cysts.. Hardware: None. Bones: Age-appropriate degenerative changes of the thoracic spine. CT/Chest without Contrast IMPRESSION: Heterogeneously enlarged thyroid gland. On a nonemergent basis thyroid ultrasound maybe helpful. Emphysema. Negative for acute cardiopulmonary disease. Reading Location: [place] [address]
--- NOTE | 2025-03-03 13:54 | EKG12_ITS ---
Test Reason : Blood Pressure : */* mmHG Vent. Rate : 64 BPM Atrial Rate : 64 BPM P-R Int : 202 ms QRS Dur : 102 ms QT Int : 408 ms P-R-T Axes : 45 -7 37 degrees QTcB Int : 420 ms Normal sinus rhythm Incomplete right bundle branch block Borderline ECG Confirmed by NEERAJ DIMAS, DEAN ([id number]), senior technical editor JESE MENDOZA ([id number]) on 03/04/2025 8:07:19 AM Referred By: Confirmed By: DEAN PICKARD MD
--- NOTE | 2025-03-03 13:57 | EDS_ITS ---
HPI HPI - Fall History of Present Illness Chief Complaint: Fall Informant: patient Occured/Mechanism Occurred: Today Mechanism/Context: Yes same level fall Usually ambulates: Without assistance Pain/Injury Pain Location: chest (Bilateral posterior rib cage pain.) Quality of Pain: Sharp Current Severity: Moderate Maximum Severity: Moderate Associated Symptoms Associated Symptoms: Negative for Parasthesias, Weakness, Loss of function, Inability to ambulate, Loss of consciousness or Amnesia Narrative Narrative: 79-year-old male history of Parkinson's. Prior right renal CA with resection. States he was at home he was seen by sliding glass door. He felt like using go down and fell. He has had episodes like this before. Currently is being worked up by electrophysiology cardiology in [place] to determine if he needs a pacemaker. When he went down he said he hurt his rib cage on both sides. Denies any LOC. Prior to the fall he had no chest pain or symptoms. He is on no blood thinners. He denies any head or neck pain. No abdominal pain or pain to his extremities. Prior similar symptoms: Yes Recent Illness/Hospitalization: No PFSH PFSH Medical History Urinary retention Chronic cough History of Clostridium difficile infection Ambulates with cane Excessive bleeding Parkinsons disease Abnormal weight loss Melanoma in situ of unspecified part of face IBS (irritable bowel syndrome) Chronic diarrhea Thyrotoxicosis Expressive aphasia Hyperthyroidism Hypothyroidism Osteoporosis Wears glasses Wears dentures Cancer Depression Anxiety Prostate disease Pulmonary embolism Back pain Syncope Difficulty swallowing Heartburn Former smoker Shortness of breath on exertion Leg cramps History of pain when walking History of echocardiogram Cardiology follow-up encounter Hypertension Skin cancer Arthritis Change in bowel habit Polycythemia Hyperlipidemia Osteoarthritis Diarrhea Fall Hypercholesterolemia BPH (benign prostatic hyperplasia) Acute respiratory failure with hypoxia Chronic respiratory failure with hypoxia Closed right hip fracture Home Medications ?Medication ?Instructions ?Recorded ?Last Taken ?Type potassium chloride 10 mEq 10 meq PO BID supplement 04/2504/08/24 History capsule,extended release carbidopa 25 mg-levodopa 100 mg 1 tab PO TID PARKINSON S 10/18/21 04/09/24 History tablet isosorbide mononitrate 30 mg 30 mg PO DAILY ANGINA 04/08/24 History tablet,extended release 24 hr lorazepam 1 mg tablet (Ativan) 1 mg PO QHS PRN PRN Anx iety 12/01/21 02/15/22 History paroxetine HCl 20 mg tablet 20 mg PO DAILY DEPRESSION 12/07/21 04/08/24 History atorvastatin 20 mg tablet 20 mg PO QHS CHOLESTEROL 11/2404/07/24 History tamsulosin 0.4 mg capsule 0.4 mg PO QHS #14 caps 08/2004/07/24 Rx methimazole 5 mg tablet 5 mg PO DAILY THYROID #30 ta bs 09/12/23 04/08/24 Rx aspirin 81 mg tablet,delayed 81 mg PO QDAY 05/06/24 Un known History release (Adult Low Dose Aspirin) cholestyramine (with sugar) 4 gram 4 g PO QDAY #348.6 grams 08/01/24 Unknown Rx oral powder pantoprazole 40 mg tablet,delayed 40 mg PO DAILY #30 T ABLETS 10/22/24 Unknown Rx release amlodipine 2.5 mg tablet 2.5 mg PO DAILY 03/03/25 Unk nown History carbidopa ER 50 mg-levodopa 200 mg 1 tab PO BID Unknown History tablet,extended release Allergy/AdvReac Type Severity Reaction Status Date / Time No Known Allergies Allergy Verified 01/13/25 03:49 Family History Father Lung cancer Mother Parkinsons Heart failure Surgical History History of cataract extraction with lens replacement History of cholecystectomy S/P laparoscopic cholecystectomy History of esophagogastroduodenoscopy (EGD) Hx of colonoscopy History of nephrectomy, left History of tonsillectomy History of total knee replacement (TKR) History of transurethral resection of prostate History of cardiac catheterization History of rhinoplasty History of total right hip replacement reattachment of severed finger H/O colonoscopy stoma reversal History of colon surgery Social History household members: spouse housing: house 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al status: employed 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: [employer] pets and animals: Yes pets and animals: cat(s) and dog(s) Smoking Status: Former smoker quit date: 06/05/98 pack-years: 72 second hand exposure: No alcohol intake: never substance use type: does not use seatbelt use: always ROS ROS ED ROS Narrative Denies recent illness. Episodes of near syncope which is being worked up. Constitutional Constitutional ED: Denies chills or fever(s) Eyes Eyes: Denies blurry vision ENT ENT ED: Denies ear pain Cardiovascular Cardiovascular: Reports chest pain and other Details: James Alex post fall only. No recent chest pain. Respiratory/Chest Respiratory/Chest: Denies cough or dyspnea on exertion Gastrointestinal Gastrointestinal: Denies abdominal pain, diarrhea, nausea or vomiting Genitourinary Genitourinary ED: Denies dysuria or hematuria Musculoskeletal Musculoskeletal: Denies arthralgias or back pain Integumentary Denies abscess or Abrasions Neurologic Neurologic: Denies headache(s) Psychiatric Psychiatric: Denies anxiety Endocrine Endocrinology: Denies polydipsia or polyphagia Hematologic/Lymphatic Hematologic/Lymphatic: Denies easy bleeding, easy bruising or lymphadenopathy Allergic/Immunologic Allergic/Immunologic ED: Denies mouth swelling, tongue swelling or urticaria EXAM Physical Exam Narrative Exam Narrative: 79-year-old male sitting upright in bed. Vital signs stable afebrile. Pulse ox 97% on room air no hypoxia. H EENT exam pupils round and light. Active motions are intact. No signs of trauma to his face or scalp. No hematoma or laceration. C-spine nontender. Trachea midline. Lungs clear to auscultation bilaterally. Heart regular rate and rhythm rate about 70 no murmur. Chest wall anterior chest and sternum nontender posterior ribs tender to palpation. No crepitance or bruising. Back the spine is nontender. Posterior ribs are tender. Again no bruising. Abdomen soft, nontender, nondistended normal bowel sounds without peritoneal signs. Moving all 4 extremities. Normal biological science technician strength. Normal dorsi plantarflexion. Normal range of motion. Nontender no deformity. Neurologically is awake and alert. Answering question following commands. GCS 15. No focal motor deficits. Const Vital Signs: 03/03/25 13:22 03/03/25 13:26 03/03/25 15:26 Temperature 98.1 F Temperature Source Oral Pulse Rate 71 72 Respiratory Rate 18 15 Respiratory Effort Normal Respiratory Depth Normal Respiratory Pattern Normal Blood Pressure 172/74 H 153/75 H Blood Pressure Mean 106 101 Pulse Ox 97 92 Oxygen Delivery Method Room Air Room Air Room Air Positive well nourished and well developed; Negative for cachectic, contractures or unkempt General Appearance ED: well developed and NAD; Negative for unkempt, cachectic or contractures Nutritional Appearance: Negative for cachectic HEENT Reports normocephalic atraumatic; Negative for trauma, contusion, hematoma or tenderness Eyes PERRL and EOMs intact bilaterally Neck full ROM, no lymphadenopathy and supple Chest Wall inspection of chest normal; Negative for palpation of chest normal Chest Narrative: Bilateral posterior rib cage tenderness bilaterally. Resp normal respiratory effort, no retractions and clear to auscultation bilaterally Auscultation: Negative for rales, rhonchi or wheezes Cardio regular rate, regular rhythm, S1 normal heart sound, S2 normal heart sound and no murmurs GI non-tender, non-distended and no masses Auscultation: normoactive bowel sounds Palpation: soft; Negative for guarding or rebound tenderness present Back/Spine no CVA tenderness General Back: Negative for CVA tenderness Cervical Spine: Negative for cervical spine tenderness Extremity Extremity Narrative: Nontender no deformity. Normal biological science technician strength. Normal range of motion. Neuro oriented x3, CN's II-XII intact bilaterally, moves all extremities and no focal motor deficits [place] Coma Scale: document GCS findings Spontaneous Obeys Commands Oriented 15 Sensorium / Orientation: alert, oriented to person, oriented to place and oriented to time; Negative for orientation impaired, confused, lethargic or stuporous Motor Exam: strength 5/5 throughout Psych mental status grossly normal and thought process normal Appearance: Negative for unkempt Skin Lesions: no lesions Rashes: no rashes MDM MDM MDM Narrative Medical decision making narrative: 79-year-old male history of near syncope being evaluated for that. Today fell injuring his rib cage at home. No LOC. No blood thinners. CAT scan of his chest to evaluate for rib fractures. Screening labs and EKG. No signs of any significant head or neck injury. No signs of any abdominal trauma or trauma to his extremities. He will be given morphine for pain. Repeat exam at 4:17 PM patient is lying in bed. He still having a lot of posterior rib cage pain. After morphine we tried to sitting him up he could not tolerate sitting up. I did discuss the CAT scan of his chest with the radiologist neither he nor I see any obvious rib fractures at this time. There is no pneumothorax. Patient be given another dose of morphine and if he is unable to ambulate I will need to be admitted for pain control. I have discussed the test results and CAT scan with both he and his who is now bedside. Repeat exam at 5 PM. Patient was given second dose of morphine. He is unable to even sit up in bed let alone stand due to the pain in his rib cage. I will speak to the hospitalist about admission. History & Record Review Discussion w/independent historian: Patient Additional record(s) reviewed:: Prior inpatient record, Prior outpatient record, Prior ED visit and Prior labs Lab Data Attestation: I reviewed the patient's lab results. Lab results narrative: CBC shows a white count 6.9 H&H is 16 and 48. Platelets 147. Electrolytes show gap 11. BUN and creatinine 21 and 1.38. Glucose 116. Labs are consistent with prior. CT chest without contrast shows chronic changes but no obvious rib fractures. No obvious pneumothorax. Discussed with the radiologist. Labs: Laboratory Results - last 24 hr 03/03/25 14:20 WBC 6.9 RBC 5.25 Hgb 16.3 Hct 48.6 MCV 92.6 MCH 31.0 MCHC 33.5 RDW Std Deviation 49.5 H RDW Coeff of Daisy 14.6 Plt Count 147 L MPV 13.1 H Immature Gran % (Auto) 0.400 Neut % (Auto) 80.5 H Lymph % (Auto) 10.5 L [place] % (Auto) 6.8 Eos % (Auto) 1.4 Baso % (Auto) 0.4 Absolute Neuts (auto) 5.6 Absolute Lymphs (auto) 0.73 L Nucleated RBC % 0 Sodium 140 Potassium 4.2 Chloride 106 Carbon Dioxide 23.0 Anion Gap 11 BUN 21 H Creatinine 1.38 H Estim Creat Clear Calc 54.05 Est GFR (MDRD) Non-Af 52 L BUN/Creatinine Ratio 15.1 Glucose 116 H Calcium 9.2 Radiography Diagnostic Testing: Clinical Impression(s) from Imaging Studies Chest CT 03/03/25 13:54 IMPRESSION: Heterogeneously enlarged thyroid gland. On a nonemergent basis thyroid ultrasound maybe helpful. Emphysema. Negative for acute cardiopulmonary disease. Reading Location: [place] [address] I spoke with the radiologist. We specifically went over the CAT scan and he does not see any obvious rib fractures. Rhythm Strip Rhythm Strip: Sinus Rhythm Rate: 64 Ectopy: None EKG Initial EKG: Attestation: I personally reviewed and interpreted this EKG as follows: Interpretation: Sinus Rhythm, No Acute Injury Pattern and RBBB Comments: Normal sinus rhythm rate of 64 no acute signs of [place] or ischemia. Right bundle branch block. Unchanged from prior from September. Prior EKG tracings: available for review Prior: Unchanged Discharge Plan Dx/Rx/DC Orders Clinical Impression: Fall, Near syncope, Bilateral contusion of ribs, History of Parkinson disease, Unable to ambulate Disposition Disposition: Acute Care [facility]
[2025-03-03 14:30] LABS: Hematocrit 48.6 % (40-54); Hemoglobin 16.3 g/dL (13.0-16.5); Immature Granulocytes Count 0.030 X10^3/uL (0.0-0.0); Mean Corp Hgb Conc 33.5 g/dL (32-36); Mean Corpuscular Volume 92.6 fL (80-94); Mean Platelet Vol. 13.1 fl (6.2-12.0); NRBC Flagged by Analyzer 0 % (0-5); Platelet Count 147 K/mm3 (150-450); RBC Distribution Width CV 14.6 % (11.6-14.6); RBC Distribution Width SD 49.5 fl (35.1-43.9); Red Blood Count 5.25 M/mm3 (4.6-6.2); White Blood Count 6.9 K/mm3 (4.4-11.0)
[2025-03-03 15:04] LABS: Anion Gap 11 (5-15); BUN 21 mg/dL (4-19); BUN/Creat Ratio 15.1 RATIO (10-20); Calcium,Total 9.2 mg/dL (7.6-11.0); Carbon Dioxide 23.0 mmol/L (21.0-32.0); Chloride 106 mmol/L (98-108); Estimated Creatinine Clearance 54.05 ml/min (50-250); Glucose 116 mg/dL (70-99); Potassium 4.2 mmol/L (3.3-5.1)
--- NOTE | 2025-03-03 16:00 | ED.RN ---
This RN attempted to get patient up, pt c/o extreme amount of pain in right ribs with slightly elevating the head of the bed, Dr. Pink made aware.
--- NOTE | 2025-03-03 17:10 | PCM.HP.STD ---
HPI - General General Date of Admission: 03/03/25 Date of Service: 03/03/25 Chief Complaint: Fall with bilateral rib pain HPI Narrative MARTA OLIVIA, is a 79 M who presented to [facility] ED on 03/03/2025 with bilateral rib pain after a fall at home. Patient lives at home with his . Medical history is significant for Parkinson disease, prior right renal cancer s/p resection with CKD stage IIIa, hypertension, hyperlipidemia, hypothyroidism and anxiety/depression. Over the past few months he has been having occasional episodes of lightheadedness/dizziness, and he was seen in the ED here in September for this. He was noted to have sinus bradycardia in the ED and his beta-johanna dosage was cut in half. He follows with [facility] cardiology and recently completed a 2-week monitor that apparently showed somewhat frequent bradycardia and tachycardia episodes, possibly concerning for tachybradycardia syndrome. He is scheduled to see [facility] EP in the office in the next few weeks for this. Today at home he had an episode of lightheadedness/dizziness similar to previous episodes and he lost his balance and fell. He reported falling onto his left side but has pain in both the left and right rib areas. In the ED he was mildly hypertensive but otherwise in normal sinus rhythm and stable on room air at rest. CBC and BMP were benign. CT chest showed no evidence of rib fractures and was otherwise unremarkable. Patient was given a dose of IV morphine about 1 hour later he was unable to sit up in bed without significant pain in his ribs. He was then given another dose of IV morphine and given time for this to kick in, but again on attempted movement he had very significant pain in his ribs. Thus, hospitalist was contacted for admission. I saw the patient at bedside in the ED, was present. Patient was laying back in bed and reported only mild pain without movement but states that with any attempt to sit up he has very significant pain in his ribs and mid back area bilaterally. Otherwise he denies any other pain or discomfort. No other acute concerns currently. Will be admitted for further management. [facility] Medical History Urinary retention Chronic cough History of Clostridium difficile infection Ambulates with cane Excessive bleeding Parkinsons disease Abnormal weight loss Melanoma in situ of unspecified part of face IBS (irritable bowel syndrome) Chronic diarrhea Thyrotoxicosis Expressive aphasia Hyperthyroidism Hypothyroidism Osteoporosis Wears glasses Wears dentures Cancer Depression Anxiety Prostate disease Pulmonary embolism Back pain Syncope Difficulty swallowing Heartburn Former smoker Shortness of breath on exertion Leg cramps History of pain when walking History of echocardiogram Cardiology follow-up encounter Hypertension Skin cancer Arthritis Change in bowel habit Polycythemia Hyperlipidemia Osteoarthritis Diarrhea Fall Hypercholesterolemia BPH (benign prostatic hyperplasia) Acute respiratory failure with hypoxia Chronic respiratory failure with hypoxia Closed right hip fracture Home Medications ?Medication ?Instructions ?Recorded ?Last Taken ?Type potassium chloride 10 mEq 10 meq PO BID supplement 04/15/21 03/03/25 08:00 History capsule,extended release carbidopa 25 mg-levodopa 100 mg 1 tab PO TID PARKINSONS 10/18/21 03/03/25 History tablet isosorbide mononitrate 30 mg 30 mg PO DAILY ANGINA 10/18/21 03/03/25 History tablet,extended release 24 hr lorazepam 1 mg tablet (Ativan) 1 mg PO QHS PRN PRN Anxiety 12/01/21 03/01/25 History paroxetine HCl 20 mg tablet 20 mg PO DAILY DEPRESSION 12/07/21 03/03/25 History atorvastatin 20 mg tablet 20 mg PO QHS CHOLESTEROL 02/08/22 03/02/25 History tamsulosin 0.4 mg capsule 0.4 mg PO QHS #14 caps 08/21/23 03/02/25 Rx methimazole 5 mg tablet 5 mg PO DAILY THYROID #30 tabs 09/12/23 03/03/25 Rx aspirin 81 mg tablet,delayed 81 mg PO QDAY 05/06/24 03/03/25 History release (Adult Low Dose Aspirin) cholestyramine (with sugar) 4 gram 4 g PO QDAY #348.6 grams 08/01/24 03/02/25 Rx oral powder pantoprazole 40 mg tablet,delayed 40 mg PO DAILY #30 TABLETS 10/22/24 03/03/25 Rx release amlodipine 2.5 mg tablet 2.5 mg PO DAILY 03/03/25 03/03/25 History carbidopa ER 50 mg-levodopa 200 mg 1 tab PO BID 03/03/25 03/03/25 08:00 History tablet,extended release Allergy/AdvReac Type Severity Reaction Status Date / Time No Known Allergies Allergy Verified 03/03/25 19:36 Family History Father Lung cancer Mother Parkinsons Heart failure Surgical History History of cataract extraction with lens replacement History of cholecystectomy S/P laparoscopic cholecystectomy History of esophagogastroduodenoscopy (EGD) Hx of colonoscopy History of nephrectomy, left History of tonsillectomy History of total knee replacement (TKR) History of transurethral resection of prostate History of cardiac catheterization History of rhinoplasty History of total right hip replacement reattachment of severed finger H/O colonoscopy stoma reversal History of colon surgery Social History household members: spouse housing: house 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al status: employed 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: [employer] pets and animals: Yes pets and animals: cat(s) and dog(s) Smoking Status: Former smoker quit date: 06/05/98 pack-years: 72 second hand exposure: No alcohol intake: never substance use type: does not use seatbelt use: always ROS Constitutional Constitutional: Denies chills, fatigue, fever(s) or weakness Eyes Eyes: Denies change in vision Cardiovascular Cardiovascular: Denies chest pain Respiratory/Chest Respiratory/Chest: Denies shortness of breath at rest Gastrointestinal Gastrointestinal: Denies abdominal pain Musculoskeletal Musculoskeletal: Reports back pain and other Details: Bilateral rib pain Neurologic Neurologic: Denies dizziness, focal weakness, headache(s), numbness or tingling Vital Signs Vital Signs Vital Signs: 03/03/25 13:22 03/03/25 13:26 03/03/25 15:26 Temperature 98.1 F Temperature Source Oral Pulse Rate 71 72 Respiratory Rate 18 15 Respiratory Effort Normal Respiratory Depth Normal Respiratory Pattern Normal Blood Pressure 172/74 H 153/75 H Blood Pressure Mean 106 101 Pulse Ox 97 92 Oxygen Delivery Method Room Air Room Air Room Air Weight Weight: 110.6 kg Body Mass Index (BMI) 34.9 Physical Exam Const alert, oriented x3, no apparent distress and average body habitus Constitutional Narrative: Pleasant elderly male, mildly fatigued appearing, otherwise laying back fairly comfortably in bed when remaining still, answering questions appropriately, in no acute distress. General Appearance: cooperative and comfortable HEENT normocephalic, head/scalp atraumatic, hearing grossly normal bilaterally, nasal mucous membranes and turbinates normal and moist oral mucous membranes Eyes PERRL, EOMs intact bilaterally and conjunctivae normal Neck full ROM Chest inspection of chest normal Resp normal respiratory effort, normal air movement, no use of accessory muscles and clear to auscultation bilaterally Cardio regular rate, regular rhythm, no murmurs and peripheral pulses 2+ throughout GI normal to inspection, nondistended, normoactive bowel sounds, soft to palpation, non-tender and non-distended Back/Spine Back/Spine Narrative: No point tenderness to palpation in the thoracic or lumbar spine. Moderate tenderness to palpation bilaterally in lateral rib areas. No gross abnormalities on external exam noted. Extremity normal to inspection and no pedal edema Skin no rashes or lesions noted Psych mental status grossly normal Results Lab / Micro Data 03/03/25 14:20 03/03/25 14:20 Labs: Laboratory Results - last 24 hr 03/03/25 14:20: WBC 6.9, RBC 5.25, Hgb 16.3, Hct 48.6, MCV 92.6, MCH 31.0, MCHC 33.5, RDW Std Deviation 49.5 H, RDW Coeff of Daisy 14.6, Plt Count 147 L, MPV 13.1 H, Immature Gran % (Auto) 0.400, Neut % (Auto) 80.5 H, Lymph % (Auto) 10.5 L, [place] % (Auto) 6.8, Eos % (Auto) 1.4, Baso % (Auto) 0.4, Absolute Neuts (auto) 5.6, Absolute Lymphs (auto) 0.73 L, Nucleated RBC % 0, Sodium 140, Potassium 4.2, Chloride 106, Carbon Dioxide 23.0, Anion Gap 11, BUN 21 H, Creatinine 1.38 H, Estim Creat Clear Calc 54.05, Est GFR (MDRD) Non-Af 52 L, BUN/Creatinine Ratio 15.1, Glucose 116 H, Calcium 9.2 Rhythm Strip Rhythm Strip: Sinus Rhythm Rate: 64 Ectopy: None Imaging Radiology Impression Chest CT 03/03/25 13:54 IMPRESSION: Heterogeneously enlarged thyroid gland. On a nonemergent basis thyroid ultrasound maybe helpful. Emphysema. Negative for acute cardiopulmonary disease. Reading Location: [place] [id number] Assessment & Plan Assessment/Plan (1) Bilateral contusion of ribs: (2) Fall: (3) Unable to ambulate: PLAN: Plan Patient is a 79-year-old male who presented to [facility] ED on 03/03/2025 with bilateral rib pain after a fall at home. 1. Intractable bilateral rib/mid back pain after a mechanical fall at home ? Admit under observation status to PCU. PT/OT/case management consulted. Patient with ground-level mechanical fall onto his left side with resultant bilateral rib/mid back pain. CT chest negative for rib fractures. No point tenderness to palpation on physical exam of the spine. However, patient with severe pain in his ribs bilaterally with minimal movement despite multiple doses of IV morphine. Will treat pain with scheduled Tylenol, p.o. oxycodone as needed and IV Dilaudid as needed. Appreciate therapy recommendations. 2. Presyncopal episodes with concern for tachybradycardia syndrome ? Follows with [facility] cardiology. Has had episodes of dizziness with presyncopal symptoms for the past several months. Was seen in the ED here in September for this. Per patient report, had an outpatient 2-week monitor done recently and apparently had frequent episodes of bradycardia and tachycardia. He is scheduled to see [facility] EP for consultation in the office in the next few weeks. Will monitor cardiac telemetry but otherwise no acute inpatient needs, will need close outpatient follow-up. 3. CKD stage IIIa, history of right renal cancer s/p right nephrectomy ? Creatinine 1.38 on admit, stable at baseline. Monitor. Chronic medical conditions: ? Parkinson's disease: Stable. Continue home Sinemet. ? Hypertension, hyperlipidemia, history of TIA: Hypertensive to the 150s on admit. Continue home aspirin, statin, amlodipine and nitrate. ? Anxiety/depression: Stable. Continue home paroxetine and Ativan at night as needed. ? BPH with obstructive symptoms: Continue home Flomax. ? GERD: Continue home PPI. ? Hyperthyroidism: Continue home methimazole. DVT prophylaxis: Lovenox CODE STATUS: Full code, verified Expected disposition: TBD Total clinical time spent by myself addressing the patient's medical issues, reviewing all the data, and collaborating with patient's care team: 82 minutes. Charges/Coding Visit Charges Inpatient E&M: 67552 Init Hosp L3
--- NOTE | 2025-03-03 18:17 | CASEMGMT ---
Care Management Face to Face with patient for initial transition planning/care coordination assessment in the ED. 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 Patient alert and oriented. Patient willing to participate in assessment and is able to answer all questions appropriately. Patient's , Madison, at bedside. Care providers, pharmacy, and demographics verified. Admitting Diagnosis: bilateral contusion of ribs, inability to ambulate Other diagnosis history: Parkinson's, Thyrotoxicosis, urinary retention, Expressive aphasia, Hyperthyroidism, Hypothyroidism PCP: Devaughn Specialists: Friend, gastro. Mohsen, urology. Pearson, Parkinson's. Balbina, cardiology. Preferred Pharmacy: [facility] Insurance: Anthem Medicare Prescription Benefit: yes Living Will/HPOA: no, but would like to complete during admission. LNOK: , Madison and daughter, Ninoska Living Arrangements: lives with in a 2 story home with first floor living. 3 short steps to enter and independent at baseline. Reportedly, patient's history of Parkinson's disease is making it more difficult to perform own ADLs, though patient still does well. Transportation: patient's drives DME: wheelchair, rollator, cane, shower chair, raised toilet seat. Patient had O2 in ED for comfort only. HHC: none SNF/Rehab: [facility] Resources: none Behavioral Health History: anxiety, depression Patient goals: Patient wishes to discharge home, though states patient is willing to do what is needed to gain mobility. Patient states desire to not go back to [facility] should SNF be needed. Patient denies any further needs or concerns at this time. Disposition Plan: admission to acute; RN CM/SW to follow for discharge planning needs that may arise. Geraldine Mercer, SENIOR ELECTRICAL DESIGNER, SHELL TRIM OPERATOR
[2025-03-03] MEDS: HYDROmorphone 0.5 MG/0.5 ML SYRINGE IV (21:10)
[2025-03-03] MEDS: Potassium Chloride Oral Tablet 10 MEQ PO (21:16)
[2025-03-03] MEDS: Senna Tablet 1 TABLET PO (21:16)
[2025-03-04 02:25] VITALS: BP 150/67; PULSE 79; RESP 16; TEMP 36.6; O2SAT 93
[2025-03-04] MEDS: 0.9% Saline Lock 10 ML Syringe IV (02:34)
[2025-03-04 06:08] VITALS: BP 150/68; PULSE 80
[2025-03-04 06:19] LABS: Hematocrit 48.3 % (40-54); Hemoglobin 16.1 g/dL (13.0-16.5); Mean Corp Hgb Conc 33.3 g/dL (32-36); Mean Corpuscular Volume 92.0 fL (80-94); Mean Platelet Vol. 12.3 fl (6.2-12.0); Platelet Count 135 K/mm3 (150-450); RBC Distribution Width CV 14.4 % (11.6-14.6); RBC Distribution Width SD 49.1 fl (35.1-43.9); Red Blood Count 5.25 M/mm3 (4.6-6.2); White Blood Count 6.7 K/mm3 (4.4-11.0)
[2025-03-04 06:39] LABS: Anion Gap 10 (5-15); BUN 20 mg/dL (4-19); BUN/Creat Ratio 16.5 RATIO (10-20); Calcium,Total 9.1 mg/dL (7.6-11.0); Carbon Dioxide 22.5 mmol/L (21.0-32.0); Chloride 105 mmol/L (98-108); Estimated Creatinine Clearance 51.97 ml/min (50-250); Glucose 94 mg/dL (70-99); Potassium 4.4 mmol/L (3.3-5.1)
--- NOTE | 2025-03-04 08:18 | PCM.PN.HOSP ---
Reason for Visit Chief Complaint: Fall with bilateral rib pain Objective Data Objective Data Vital Signs: Vital Signs Temp Pulse Resp BP Pulse Ox O2 Del Method O2 Flow Rate 97.8 F 80 16 150/68 H 93 Nasal Cannula 3 03/04/25 02:25 03/04/25 06:08 03/04/25 02:25 03/04/25 06:08 03/04/25 02:25 03/04/25 03:00 03/04/25 03:00 Oxygen Flow Rate (L/min) 3 Oxygen Delivery Method Nasal Cannula Weight: 179 lb 10.828 oz Body Mass Index (BMI) 25.7 Intake & Output: Intake and Output for Last 24 Hours 03/02/25 03/03/25 03/04/25 23:59 23:59 23:59 Output Total 450 / 450 Balance -450 / -450 Lab / Micro Data 03/04/25 05:18 03/04/25 05:18 Labs: Laboratory Results - last 24 hr 03/03/25 14:20: WBC 6.9, RBC 5.25, Hgb 16.3, Hct 48.6, MCV 92.6, MCH 31.0, MCHC 33.5, RDW Std Deviation 49.5 H, RDW Coeff of Daisy 14.6, Plt Count 147 L, MPV 13.1 H, Immature Gran % (Auto) 0.400, Neut % (Auto) 80.5 H, Lymph % (Auto) 10.5 L, [place] % (Auto) 6.8, Eos % (Auto) 1.4, Baso % (Auto) 0.4, Absolute Neuts (auto) 5.6, Absolute Lymphs (auto) 0.73 L, Nucleated RBC % 0, Sodium 140, Potassium 4.2, Chloride 106, Carbon Dioxide 23.0, Anion Gap 11, BUN 21 H, Creatinine 1.38 H, Estim Creat Clear Calc 54.05, Est GFR (MDRD) Non-Af 52 L, BUN/Creatinine Ratio 15.1, Glucose 116 H, Calcium 9.2 03/04/25 05:18: WBC 6.7, RBC 5.25, Hgb 16.1, Hct 48.3, MCV 92.0, MCH 30.7, MCHC 33.3, RDW Std Deviation 49.1 H, RDW Coeff of Daisy 14.4, Plt Count 135 L, MPV 12.3 H, Sodium 137, Potassium 4.4, Chloride 105, Carbon Dioxide 22.5, Anion Gap 10, BUN 20 H, Creatinine 1.19, Estim Creat Clear Calc 51.97, Est GFR (MDRD) Non-Af 62, BUN/Creatinine Ratio 16.5, Glucose 94, Calcium 9.1 Radiography Diagnostic Testing: Radiology Impression Chest CT 03/03/25 13:54 IMPRESSION: Heterogeneously enlarged thyroid gland. On a nonemergent basis thyroid ultrasound maybe helpful. Emphysema. Negative for acute cardiopulmonary disease. Reading Location: [place] [address] Rhythm Strip Rhythm Strip: Sinus Rhythm Rate: 64 Ectopy: None Physical Exam Narrative No point tenderness to palpation in the thoracic or lumbar spine. Moderate tenderness to palpation bilaterally in lateral rib areas. No gross abnormalities on external exam noted. Assessment & Plan Assessment/Plan (1) Bilateral contusion of ribs: (2) Fall: (3) Unable to ambulate: PLAN: Plan Patient is a 79-year-old male who presented to [facility] ED on 03/03/2025 with bilateral rib pain after a fall at home. 1. Intractable bilateral rib/mid back pain after a mechanical fall at home ? Admit under observation status to PCU. PT/OT/case management consulted. Patient with ground-level mechanical fall onto his left side with resultant bilateral rib/mid back pain. CT chest negative for rib fractures. No point tenderness to palpation on physical exam of the spine. However, patient with severe pain in his ribs bilaterally with minimal movement despite multiple doses of IV morphine. Will treat pain with scheduled Tylenol, p.o. oxycodone as needed and IV Dilaudid as needed. Appreciate therapy recommendations. 2. Presyncopal episodes with concern for tachybradycardia syndrome ? Follows with [facility] cardiology. Has had episodes of dizziness with presyncopal symptoms for the past several months. Was seen in the ED here in September for this. Per patient report, had an outpatient 2-week monitor done recently and apparently had frequent episodes of bradycardia and tachycardia. He is scheduled to see [facility] EP for consultation in the office in the next few weeks. Will monitor cardiac telemetry but otherwise no acute inpatient needs, will need close outpatient follow-up. 3. CKD stage IIIa, history of right renal cancer s/p right nephrectomy ? Creatinine 1.38 on admit, stable at baseline. Monitor. Chronic medical conditions: ? Parkinson's disease: Stable. Continue home Sinemet. ? Hypertension, hyperlipidemia, history of TIA: Hypertensive to the 150s on admit. Continue home aspirin, statin, amlodipine and nitrate. ? Anxiety/depression: Stable. Continue home paroxetine and Ativan at night as needed. ? BPH with obstructive symptoms: Continue home Flomax. ? GERD: Continue home PPI. ? Hyperthyroidism: Continue home methimazole. DVT prophylaxis: Lovenox CODE STATUS: Full code, verified Expected disposition: TBD 03/03/25 14:20: WBC 6.9, RBC 5.25, Hgb 16.3, Hct 48.6, MCV 92.6, MCH 31.0, MCHC 33.5, RDW Std Deviation 49.5 H, RDW Coeff of Daisy 14.6, Plt Count 147 L, MPV 13.1 H, Immature Gran % (Auto) 0.400, Neut % (Auto) 80.5 H, Lymph % (Auto) 10.5 L, [place] % (Auto) 6.8, Eos % (Auto) 1.4, Baso % (Auto) 0.4, Absolute Neuts (auto) 5.6, Absolute Lymphs (auto) 0.73 L, Nucleated RBC % 0, Sodium 140, Potassium 4.2, Chloride 106, Carbon Dioxide 23.0, Anion Gap 11, BUN 21 H, Creatinine 1.38 H, Estim Creat Clear Calc 54.05, Est GFR (MDRD) Non-Af 52 L, BUN/Creatinine Ratio 15.1, Glucose 116 H, Calcium 9.2 03/04/25 05:18: WBC 6.7, RBC 5.25, Hgb 16.1, Hct 48.3, MCV 92.0, MCH 30.7, MCHC 33.3, RDW Std Deviation 49.1 H, RDW Coeff of Daisy 14.4, Plt Count 135 L, MPV 12.3 H, Sodium 137, Potassium 4.4, Chloride 105, Carbon Dioxide 22.5, Anion Gap 10, BUN 20 H, Creatinine 1.19, Estim Creat Clear Calc 51.97, Est GFR (MDRD) Non-Af 62, BUN/Creatinine Ratio 16.5, Glucose 94, Calcium 9.1 Clinical Impression(s) from Imaging Studies Chest CT 03/03/25 13:54
[2025-03-04 09:32] VITALS: BP 108/59; PULSE 72; RESP 16; TEMP 36.4; O2SAT 94
[2025-03-04] MEDS: Aspirin E.C. 81 MG Tablet PO (09:35)
[2025-03-04] MEDS: Senna Tablet 1 TABLET PO (09:35)
[2025-03-04] MEDS: Potassium Chloride Oral Tablet 10 MEQ PO (09:36)
--- NOTE | 2025-03-04 10:21 | DCINST_ITS ---
Discharge Instructions DC O2, CPAP, BIPAP needs Home O2 Discharge instructions: No Follow Up Care Test Results: Test results from this visit will be discussed in further detail at your follow- up appointment, if applicable. Discharge Plan Admission Admit Date/Time: 03/03/25 17:24 Primary Reason for Your Visit: Fall with mild back pain and rib pain Attending Provider: Khoa Conner Primary Care Provider: Brandon Cantor Consulting Providers: Beto Uriarte Instructions Additional Instructions / Restrictions: Patient has outpatient physical therapy for Parkinson disease once a week at [facility] Discharge Orders/Prescriptions Prescriptions: New acetaminophen 500 mg Tablet 1,000 mg PO Q8 Qty: 0 0RF Rx Instructions: Vuyo-vjp-[id number]. 1 g every 8 hourly for 2 to 3 days and then as needed for pain Continued carbidopa-levodopa 25-100 mg tablet 1 tab PO TID lorazepam [Ativan] 1 mg tablet 1 mg PO QHS PRN PRN (Reason: Anxiety) aspirin [Adult Low Dose Aspirin] 81 mg tablet,delayed release (DR/EC) 81 mg PO QDAY potassium chloride 10 mEq capsule, extended release 10 meq PO BID paroxetine HCl 20 mg tablet 20 mg PO DAILY MDD T isosorbide mononitrate 30 mg tablet extended release 24 hr 30 mg PO DAILY atorvastatin 20 mg tablet 20 mg PO QHS tamsulosin 0.4 mg Capsule 0.4 mg PO QHS Qty: 14 0RF carbidopa-levodopa 50-200 mg tablet extended release 1 tab PO BID amlodipine 2.5 mg tablet 2.5 mg PO DAILY methimazole 5 mg tablet 5 mg PO DAILY Qty: 30 6RF cholestyramine (with sugar) 4 gram powder 4 g PO QDAY Qty: 348.6 0RF Rx Instructions: administer w/meal; avoid other meds within 1hr before or 4-6hr after dose pantoprazole 40 mg tablet,delayed release (DR/EC) 40 mg PO DAILY Qty: 30 6RF Referrals / Follow Up: Brandon Cantor MD [Primary Care Provider, Internal Medicine] Disposition Disposition (needs filled in before D/C Order can be placed): Home, Self Care
--- NOTE | 2025-03-04 11:40 | CASEMGMT ---
Social Work SW spoke with PT and OT after patients evaluations. They reported the patient is okay to DC home. PT reported the patient already has outpatient therapy on . SW informed the physician. GERMÁN Godinez
--- NOTE | 2025-03-04 12:01 | PCM.DC.SUM ---
Providers Date of Admission: 03/03/25 Date of Discharge: 03/04/25 Primary Care Physician: Dr. Brandon Cantor MD Reason For Visit: FALL W/INTRACTABLE RIB/BACK PAIN Diagnosis Discharge Diagnosis (1) Bilateral contusion of ribs: Status: Acute Code(s): S29.8XXA - Other specified injuries of thorax, initial encounter (2) Fall: Status: Acute Code(s): W19.XXXA - Unspecified fall, initial encounter (3) Unable to ambulate: Status: Acute Code(s): R26.2 - Difficulty in walking, not elsewhere classified Plan Patient is a 79-year-old male who presented to [facility] ED on 03/03/2025 with bilateral rib pain after a fall at home. 1. Intractable bilateral rib at the back/mid back pain after a mechanical fall at home 03/04? Admit under observation status to PCU. PT/OT/case management was consulted. Patient with ground-level mechanical fall onto his left side with resultant bilateral rib/mid back pain. CT chest negative for rib fractures. On exam, no point tenderness on palpation on the front of the chest, back of the chest, spine, sternum clavicles and upper extremities. Pain is much improved since yesterday. Patient goes to physical therapy once a week at [facility] for Parkinson disease and advised to continue it. Discharged on Tylenol. 2. Presyncopal episodes with concern for tachybradycardia syndrome ? Follows with [facility] cardiology. Has had episodes of dizziness with presyncopal symptoms for the past several months. Was seen in the ED here in September for this. Per patient report, had an outpatient 2-week monitor done in first 2 weeks of October and was found to have bradycardia, lowest heart rate was 36/min. Patient follows [facility] estate and trust tax principal, Dr. Aguilera. Scheduled to see [facility] EP for consultation in the next few weeks. patient monitor shows sinus rhythm. 3. CKD stage IIIa, history of right renal cancer s/p right nephrectomy ? Creatinine 1.38 on admit, stable at baseline. 02/15 BUN/creatinine 20/1.19 shows decrease. No acute issues. Chronic medical conditions: ? Parkinson's disease: Stable. Continue home Sinemet. ? Hypertension, hyperlipidemia, history of TIA: Hypertensive to the 150s on admit. Continue home aspirin, statin, amlodipine and nitrate. ? Anxiety/depression: Stable. Continue home paroxetine and Ativan at night as needed. ? BPH with obstructive symptoms: Continue home Flomax. ? GERD: Continue home PPI. ? Hyperthyroidism: Continue home methimazole. DVT prophylaxis: Lovenox CODE STATUS: Full code, verified 03/03/25 14:20: WBC 6.9, RBC 5.25, Hgb 16.3, Hct 48.6, MCV 92.6, MCH 31.0, MCHC 33.5, RDW Std Deviation 49.5 H, RDW Coeff of Daisy 14.6, Plt Count 147 L, MPV 13.1 H, Immature Gran % (Auto) 0.400, Neut % (Auto) 80.5 H, Lymph % (Auto) 10.5 L, [place] % (Auto) 6.8, Eos % (Auto) 1.4, Baso % (Auto) 0.4, Absolute Neuts (auto) 5.6, Absolute Lymphs (auto) 0.73 L, Nucleated RBC % 0, Sodium 140, Potassium 4.2, Chloride 106, Carbon Dioxide 23.0, Anion Gap 11, BUN 21 H, Creatinine 1.38 H, Estim Creat Clear Calc 54.05, Est GFR (MDRD) Non-Af 52 L, BUN/Creatinine Ratio 15.1, Glucose 116 H, Calcium 9.2 03/04/25 05:18: WBC 6.7, RBC 5.25, Hgb 16.1, Hct 48.3, MCV 92.0, MCH 30.7, MCHC 33.3, RDW Std Deviation 49.1 H, RDW Coeff of Daisy 14.4, Plt Count 135 L, MPV 12.3 H, Sodium 137, Potassium 4.4, Chloride 105, Carbon Dioxide 22.5, Anion Gap 10, BUN 20 H, Creatinine 1.19, Estim Creat Clear Calc 51.97, Est GFR (MDRD) Non-Af 62, BUN/Creatinine Ratio 16.5, Glucose 94, Calcium 9.1 Clinical Impression(s) from Imaging Studies Chest CT 03/03/25 13:54 IMPRESSION: Heterogeneously enlarged thyroid gland. On a nonemergent basis thyroid ultrasound maybe helpful. Emphysema. Negative for acute cardiopulmonary disease. Reading Location: [place] [address] Medications at Discharge Home Medications potassium chloride 10 mEq capsule,extended release 10 meq PO BID supplement 04/15/21 carbidopa 25 mg-levodopa 100 mg tablet 1 tab PO TID PARKINSONS 10/18/21 isosorbide mononitrate 30 mg tablet,extended release 24 hr 30 mg PO DAILY ANGINA 10/18/21 lorazepam 1 mg tablet (Ativan) 1 mg PO QHS PRN PRN Anxiety 12/01/21 paroxetine HCl 20 mg tablet 20 mg PO DAILY DEPRESSION 12/07/21 atorvastatin 20 mg tablet 20 mg PO QHS CHOLESTEROL 02/08/22 tamsulosin 0.4 mg capsule 0.4 mg PO QHS #14 caps 08/21/23 methimazole 5 mg tablet 5 mg PO DAILY THYROID #30 tabs 09/12/23 aspirin 81 mg tablet,delayed release (Adult Low Dose Aspirin) 81 mg PO QDAY 05/06/24 cholestyramine (with sugar) 4 gram oral powder 4 g PO QDAY #348.6 grams 08/01/24 pantoprazole 40 mg tablet,delayed release 40 mg PO DAILY #30 TABLETS 10/22/24 amlodipine 2.5 mg tablet 2.5 mg PO DAILY 03/03/25 carbidopa ER 50 mg-levodopa 200 mg tablet,extended release 1 tab PO BID 03/03/25 acetaminophen 500 mg tablet 1,000 mg (2 x 500 mg) PO Q8 #0 tabs 03/04/25 Physical Exam Narrative Seen and examined. No bruise over the head/scalp area or neck area. Physical exam General: Alert, Oriented x3, Cooperative HEENT: Atraumatic, PERRLA, EOMI, Normocephalic. Oral: No Gingival or Mucosal Lesions/ Ulcerations Neck: Supple, No JVD, Negative Carotid Bruits Chest wall/Lungs: No point tenderness over the spine, bilateral chest wall anteriorly, laterally and posteriorly, clavicles and shoulder. Air entry diminished in bilateral lung bases. No crepitation/rhonchi Cardiovascular: Regular rate and rhythm, Normal S1,S2, No M/G/R Abdomen: Bowel Sounds Present, Soft, Non Tender, Non-Distended : No dysuria. No renal angle tenderness. No suprapubic tenderness. Extremities: No edema, Capillary Refill Less than 3 Seconds Skin: No rashes, No breakdown Musculoskeletal/spine: No acute T-spine tenderness over C, T and lumbar spine. Mild stiffness/rigidity over knee joints, increased tone. Status post right TKR, degenerative arthritis of knees. Neurological: Cranial nerves II-XII grossly intact, DTR 2+/4. No acute focal neurological deficit. Psych/Mental Status: Normal Affect, Appropriate. Weight / BMI Weight Weight: 179 lb 10.828 oz Body Mass Index (BMI) 25.7 ABG / Lab / Microbiology Data 03/04/25 05:18 03/04/25 05:18 Laboratory: Laboratory Results - last 24 hr 03/03/25 14:20: WBC 6.9, RBC 5.25, Hgb 16.3, Hct 48.6, MCV 92.6, MCH 31.0, MCHC 33.5, RDW Std Deviation 49.5 H, RDW Coeff of Daisy 14.6, Plt Count 147 L, MPV 13.1 H, Immature Gran % (Auto) 0.400, Neut % (Auto) 80.5 H, Lymph % (Auto) 10.5 L, [place] % (Auto) 6.8, Eos % (Auto) 1.4, Baso % (Auto) 0.4, Absolute Neuts (auto) 5.6, Absolute Lymphs (auto) 0.73 L, Nucleated RBC % 0, Sodium 140, Potassium 4.2, Chloride 106, Carbon Dioxide 23.0, Anion Gap 11, BUN 21 H, Creatinine 1.38 H, Estim Creat Clear Calc 54.05, Est GFR (MDRD) Non-Af 52 L, BUN/Creatinine Ratio 15.1, Glucose 116 H, Calcium 9.2 03/04/25 05:18: WBC 6.7, RBC 5.25, Hgb 16.1, Hct 48.3, MCV 92.0, MCH 30.7, MCHC 33.3, RDW Std Deviation 49.1 H, RDW Coeff of Daisy 14.4, Plt Count 135 L, MPV 12.3 H, Sodium 137, Potassium 4.4, Chloride 105, Carbon Dioxide 22.5, Anion Gap 10, BUN 20 H, Creatinine 1.19, Estim Creat Clear Calc 51.97, Est GFR (MDRD) Non-Af 62, BUN/Creatinine Ratio 16.5, Glucose 94, Calcium 9.1 Radiography Diagnostic Testing: Radiology Impression Chest CT 03/03/25 13:54 IMPRESSION: Heterogeneously enlarged thyroid gland. On a nonemergent basis thyroid ultrasound maybe helpful. Emphysema. Negative for acute cardiopulmonary disease. Reading Location: [place] [address] D/C Instructions DC O2, CPAP, BIPAP Needs Home O2 Discharge instructions: No Meaningful Use Info Meaningful Use Meaningful Use Diagnoses (Choose all that apply): None applicable Discharge Plan Admission Admit Date/Time: 03/03/25 17:24 Primary Reason for Your Visit: Fall with mild back pain and rib pain Attending Provider: Khoa Conner Primary Care Provider: Brandon Cantor Consulting Providers: Beto Uriarte Instructions Additional Instructions / Restrictions: Patient has outpatient physical therapy for Parkinson disease once a week at [facility] Discharge Orders/Prescriptions Prescriptions: New acetaminophen 500 mg Tablet 1,000 mg PO Q8 Qty: 0 0RF Rx Instructions: Jixh-bhb-fdiruau. 1 g every 8 hourly for 2 to 3 days and then as needed for pain Continued carbidopa-levodopa 25-100 mg tablet 1 tab PO TID lorazepam [Ativan] 1 mg tablet 1 mg PO QHS PRN PRN (Reason: Anxiety) aspirin [Adult Low Dose Aspirin] 81 mg tablet,delayed release (DR/EC) 81 mg PO QDAY potassium chloride 10 mEq capsule, extended release 10 meq PO BID paroxetine HCl 20 mg tablet 20 mg PO DAILY MDD T isosorbide mononitrate 30 mg tablet extended release 24 hr 30 mg PO DAILY atorvastatin 20 mg tablet 20 mg PO QHS tamsulosin 0.4 mg Capsule 0.4 mg PO QHS Qty: 14 0RF carbidopa-levodopa 50-200 mg tablet extended release 1 tab PO BID amlodipine 2.5 mg tablet 2.5 mg PO DAILY methimazole 5 mg tablet 5 mg PO DAILY Qty: 30 6RF cholestyramine (with sugar) 4 gram powder 4 g PO QDAY Qty: 348.6 0RF Rx Instructions: administer w/meal; avoid other meds within 1hr before or 4-6hr after dose pantoprazole 40 mg tablet,delayed release (DR/EC) 40 mg PO DAILY Qty: 30 6RF Referrals / Follow Up: Brandon Cantor MD [Primary Care Provider, Internal Medicine] Disposition Disposition (needs filled in before D/C Order can be placed): Home, Self Care Charges/Coding Visit Charges Inpatient E&M: 02053 Disch Hosp >30min
--- NOTE | 2025-03-04 12:58 | PHA.DC.MR.R ---
Pharmacy [place] Med Reconciliation Pharmacy Service has performed discharge medication reconciliation for this patient. The patient's discharge medication list was reviewed for discrepancies and discrepancies were resolved. Medications at Discharge Home Medications potassium chloride 10 mEq capsule,extended release 10 meq PO BID supplement 04/15/21 carbidopa 25 mg-levodopa 100 mg tablet 1 tab PO TID PARKINSONS 10/18/21 isosorbide mononitrate 30 mg tablet,extended release 24 hr 30 mg PO DAILY ANGINA 10/18/21 lorazepam 1 mg tablet (Ativan) 1 mg PO QHS PRN PRN Anxiety 12/01/21 paroxetine HCl 20 mg tablet 20 mg PO DAILY DEPRESSION 12/07/21 atorvastatin 20 mg tablet 20 mg PO QHS CHOLESTEROL 02/08/22 tamsulosin 0.4 mg capsule 0.4 mg PO QHS #14 caps 08/21/23 methimazole 5 mg tablet 5 mg PO DAILY THYROID #30 tabs 09/12/23 aspirin 81 mg tablet,delayed release (Adult Low Dose Aspirin) 81 mg PO QDAY 05/06/24 cholestyramine (with sugar) 4 gram oral powder 4 g PO QDAY #348.6 grams 08/01/24 pantoprazole 40 mg tablet,delayed release 40 mg PO DAILY #30 TABLETS 10/22/24 amlodipine 2.5 mg tablet 2.5 mg PO DAILY 03/03/25 carbidopa ER 50 mg-levodopa 200 mg tablet,extended release 1 tab PO BID 03/03/25 acetaminophen 500 mg tablet 1,000 mg (2 x 500 mg) PO Q8 #0 tabs 03/04/25
--- NOTE | 2025-03-04 13:06 | CASEMGMT ---
Social Work SW met with pt to discuss discharge plan. Pt states that he plans to return home with his . Pt goes to [facility] for outpt therapy. Pt is able to state to SW that his disease is progressive and he is educated to disease process. Pt has all needed DME at home including a wheelchair, walker, rollator, shower chair and high rise toilet. Pt does not have a medical alert and is accepting of written information regarding emergency response systems. Pt denies any additional needs at this time and states his will be providing transportation home. YOCASTA Ahuja
[2025-03-04 13:34] VITALS: BP 102/56; PULSE 81; RESP 14; TEMP 36.3; O2SAT 94
== END 2025-03-04 14:30 | disposition home or self-care (01) ==
LOC: ED 17:07 → PCU 18:11
PROVIDERS: Admitting Provider Hospitalist; Emergency Provider Emergency Medicine; PCP Internal Medicine; Visit Provider Internal Medicine
DX: S20.213A Contusion of bilateral front wall of thorax, initial encounter (principal); G20.A1 Parkinson's disease without dyskinesia, without mention of fluctuations; J44.9 Chronic obstructive pulmonary disease, unspecified; N18.31 Chronic kidney disease, stage 3a; E05.90 Thyrotoxicosis, unspecified without thyrotoxic crisis or storm; F41.9 Anxiety disorder, unspecified; R00.1 Bradycardia, unspecified; F32.A Depression, unspecified; Z87.891 Personal history of nicotine dependence; W18.30XA Fall on same level, unspecified, initial encounter; Z79.899 Other long term (current) drug therapy; R42 Dizziness and giddiness; Z86.711 Personal history of pulmonary embolism; I12.9 Hypertensive chronic kidney disease with stage 1 through stage 4 chronic kidney disease, or unspecified chronic kidney disease; E78.00 Pure hypercholesterolemia, unspecified; Y92.018 Other place in single-family (private) house as the place of occurrence of the external cause; N40.1 Benign prostatic hyperplasia with lower urinary tract symptoms; N13.8 Other obstructive and reflux uropathy; Z79.82 Long term (current) use of aspirin; I45.10 Unspecified right bundle-branch block; R55 Syncope and collapse
CPT/HCPCS: 36415; 71250; 80048; 85025; 85027; 93005; 96372; 96374; 96375; 96376; 97162; 97166; 99221; 99285; A4216; G0378; J2405